=== PATIENT | female | born 1960 | race Caucasian/White ===

== ENCOUNTER 2019-10-21 08:37 | Outpatient (CLI) | payer BC, SELFPAY ==
--- NOTE | ~2019-10-21 | MM_ITS ---
EXAMINATION: MM screening adan BI w sara HISTORY: Screening TECHNIQUE: Craniocaudal and mediolateral oblique 3-D tomosynthesis images were obtained and synthetic 2-D images were generated. CAD analysis was submitted and interpreted. COMPARISON: Comparison to multiple prior studies sequentially, with oldest reviewed study dated 11/2013. BREAST PARENCHYMAL COMPOSITION: There are scattered areas of fibroglandular density. FINDINGS: There is no evidence of suspicious mass, calcification, or architectural distortion to sugg est malignancy in either breast. There has been no suspicious interval change. IMPRESSION: 1. No mammographic evidence of malignancy. 2. Recommend routine screening mammography in one year. 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
== END 2019-10-21 08:38 | disposition home or self-care (01) ==
PROVIDERS: PCP Internal Medicine; Visit Provider Obstetrics & Gynecology
DX: Z12.31 Encounter for screening mammogram for malignant neoplasm of breast (principal)
CPT/HCPCS: 77063; 77067

== ENCOUNTER 2021-04-24 19:25 | Inpatient (IN) | payer OTHER, SELFPAY ==
[2021-04-24] VITALS (10 sets, daily range): BP systolic 102–118; BP diastolic 60–90; PULSE 75–103; RESP 15–22; TEMP 35.7–36.6; O2SAT 99–100
--- NOTE | ~2021-04-24 | CT_ITS ---
EXAMINATION: CT lumbar spine wo con DATE: 04/24/2021 22:32 INDICATION: Low back pain. Fall. TECHNIQUE: Computed tomography (CT) of the lumbar spine was performed without intravenous contrast. A utomated exposure control and iterative reconstruction technique were employed. The dose-length produ ct was 542.28 mGy-cm. COMPARISON: None FINDINGS: There is diffuse hepatic steatosis. There are delayed contrast nephrograms, consistent with decreased renal function. There is 5 degrees levocurvature of lumbar spine. There is 3 mm retrolisth esis of L1 on L2. Vertebral body heights are normal. There are changes of posterior fusion procedure at L3-L4 with pedicle screws. There is mildly decreased disc height at L1-L2 and L2-L3. The following disc levels are specifically discussed: L1-L2: The disc is bulging. There is mild bilateral facet joint osteoarthritis. There is mild bilater al neural foraminal stenosis. There is mild central canal stenosis. L2-L3: The disc is bulging. There is mild bilateral facet joint hypertrophy. There is moderate bilate ral neural foraminal stenosis. There is mild central canal stenosis. L3-L4: The disc is bulging. There is mild bilateral facet joint surgery. There is mild bilateral neur al foraminal stenosis. There is mild central canal stenosis. L4-L5: The disc is bulging. There is severe bilateral facet joint osteoarthritis. There is mild bilat eral neural foraminal stenosis. There is mild central canal stenosis. L5-S1: The disc does not extend beyond the endplate margin. There is severe bilateral facet joint ost eoarthritis. There is mild bilateral neural foraminal stenosis. There is no central canal stenosis. IMPRESSION: 1. No fracture. 2. Moderate lumbar spondylosis. 3. Posterior fusion procedure at L3-L4. Reviewed, dictated and finalized at location A. ING AGENT
--- NOTE | ~2021-04-24 | MR_ITS ---
EXAMINATION: MR brain/brain stem wo con DATE: 04/26/2021 11:38 INDICATION: Cerebrovascular accident. Right lower extremity weakness and numbness. TECHNIQUE: Magnetic resonance imaging (MRI) of the brain and brainstem was performed without intraven ous contrast. Sequences included sagittal and axial T1-weighted FSE, axial diffusion-weighted FS EPI, axial T2*-weighted GRE, axial T2-weighted FLAIR Propeller, and axial T2-weighted Propeller. Apparent diffusion coefficient (ADC) maps were created. COMPARISON: Head CT 04/24/2021 FINDINGS: There are scattered areas of nonspecific increased T2-weighted signal intensity in the cere bral white matter, which is within normal limits for the patient's age. There is no intracranial hemo rrhage, acute infarction, or abnormal intracranial mass lesion. The ventricles are normal in size. Th e orbits are normal. The paranasal sinuses are clear. The mastoid air cells are normal. IMPRESSION: 1. Normal aging brain. Reviewed, dictated and finalized at location A. CAR DRIVER IMPRESSION: 1. Normal aging brain.
--- NOTE | ~2021-04-24 | XR_ITS ---
EXAMINATION: XR hip BI 2V w AP pelvis DATE: 04/25/2021 00:26 INDICATION: Pelvic pain. TECHNIQUE: An anteroposterior view pelvis and 2 views of each hip were obtained. COMPARISON: Abdomen radiographs 02/09/2005 FINDINGS: Bone alignment is normal. No fracture. There are changes of posterior fusion procedure in l umbar spine. There is mild osteoarthritis of the hips. IMPRESSION: 1. Mild osteoarthritis of the hips. Reviewed, dictated and finalized at location A. IALTY SALES CONSULTANT
--- NOTE | ~2021-04-24 | XR_ITS ---
EXAMINATION: XR chest 1V portable DATE: 04/24/2021 21:09 INDICATION: Chest pain. TECHNIQUE: A single frontal view of the chest was obtained. COMPARISON: Chest 2 views 06/21/2012 FINDINGS: The lung volumes are small. There are mild airspace opacities in the lower lung zones. No p leural effusion or pneumothorax. The heart size is normal. There are changes of anterior fusion proce dure in cervical spine. IMPRESSION: 1. Small lung volumes with mild airspace opacities in the lower lung zones, likely atelectasis. Reviewed, dictated and finalized at location E. E CONTRACTOR IMPRESSION: 1. Small lung volumes with mild airspace opacities in the lower lung zones, lik wayne atelectasis.
--- NOTE | ~2021-04-24 | US_ITS ---
EXAMINATION: US venous doppler [facility] DATE: 04/26/2021 17:01 INDICATION: Right lower limb swelling TECHNIQUE: Grayscale ultrasound images without and with compression and Doppler ultrasound images of the bilateral lower extremity veins were obtained. COMPARISON: None. FINDINGS: The visualized portions of right common femoral vein, profunda (deep) femoral vein, femoral vein, pop liteal vein, posterior tibial veins, peroneal veins, gastrocnemius vein and greater saphenous vein ou tflow are patent. The visualized portions of left common femoral vein, profunda femoral vein, femoral vein, popliteal v ein, posterior tibial veins, peroneal veins, gastrocnemius vein and greater saphenous vein outflow ar e patent. 3.5 x 2.6 x 2.1 cm [place] cyst at the left popliteal fossa. IMPRESSION: 1. No deep venous thrombosis in either lower limb. 2. Moderate-sized [place] cyst at the left popliteal fossa. Reviewed, dictated and finalized at location A. IFIED NURSE MIDWIFE
--- NOTE | ~2021-04-24 | CT_ITS ---
EXAMINATION: CTA brain carotid DATE: 04/24/2021 20:02 INDICATION: Right lower extremity weakness and numbness. TECHNIQUE: Computed tomographic angiography (CTA) of the head was performed without and with 100 mL O mnipaque-350 intravenous contrast. CTA of the neck was performed with intravenous contrast. Automated exposure control and iterative reconstruction technique were employed. The dose-length product was 1 540.52 mGy-cm. Maximum intensity projection and volume rendered 3D-reconstructions were created by radha technologist on a separate workstation. COMPARISON: Head CT 01/21/2008 FINDINGS: HEAD CTA: There is no intracranial hemorrhage, acute infarction, or abnormal intracranial mass lesion . The ventricles are normal in size. The paranasal sinuses are clear. The orbits are normal. The mast oid air cells are normal. Left vertebral artery is dominant. There is no significant stenosis of basi lar artery or the posterior cerebral arteries. The posterior communicating arteries are normal. There is no significant stenosis of the intracranial internal carotid arteries or anterior or middle cereb ral arteries. Anterior communicating artery is normal. There is no aneurysm. NECK CTA: There are no pathologically enlarged lymph nodes. There is minimal plaque in proximal left internal carotid artery. There is 0% stenosis of the proximal right internal carotid artery relative to normal distal artery lumen diameter (NASCET criteria). There is 0% stenosis of the proximal left i nternal carotid artery relative to normal distal artery lumen diameter. There is no significant steno sis of the vertebral arteries. There are changes of anterior fusion procedure from C4 to C6. There is moderate cervical spondylosis. IMPRESSION: 1. Normal brain. No aneurysm or significant intracranial arterial stenosis. 2. 0% stenosis of the proximal internal carotid arteries relative to normal distal artery lumen diame ters (NASCET criteria). 3. I called these results to Dr. Patel. Reviewed, dictated and finalized at location E. DRINIER MACHINE OPERATOR IMPRESSION: 1. Normal brain. No aneurysm or significant intracranial arterial stenosis. 2. 0% stenosis of the proximal internal carotid arteries relative to normal dis monica artery lumen diameters (NASCET criteria). 3. I called these results to Dr. Patel.
--- NOTE | 2021-04-24 19:40 | PC.NURSE ---
Dysphagia screening completed. No deficit to patient ability to swallow. Able to tolerate PO fluids well.
--- NOTE | 2021-04-24 19:44 | PC.NURSE ---
Juice given at this time. FSBG 61. EDP notified.
--- NOTE | 2021-04-24 19:46 | ECG_ITS ---
Measurements Intervals [place] Rate: 84 P: 67 VA: 148 QRS: 6 QRSD: 84 T: 58 QT: 388 QTc: 461 Interpretive Statements SINUS RHYTHM POSSIBLE LEFT ATRIAL ENLARGEMENT BASELINE ARTIFACT- I, II, III, AVR, AVL, AVF, V1-V6 BORDERLINE ECG Electronically Signed On 04-25-2021 7:27:48 INTERCELL CONNECTOR PLACER by John Jason D.O.
--- NOTE | 2021-04-24 19:47 | ED.NEUROSD ---
HPI - Neuro Symptoms/Deficit General Chief Complaint: Neuro Symptoms/Deficit Stated Complaint: Right leg numbness Time Seen by Provider: 04/24/21 19:39 Source: patient Mode of arrival: ambulatory Limitations: no limitations History of Present Illness HPI Narrative: Patient is a 61-year-old female complaining of right lower extremity weakness and numbness accompanied by left upper extremity weakness that started around 4 PM today. Patient denies any speech or visual disturbance, dizziness, headache, or unsteady gait. Patient denies any chest pain, shortness of breath, abdominal pain, nausea, vomiting, diaphoresis, fever or chills. Related Data Home Medications Medication Instructions Recorded Confirmed cholecalciferol (vitamin D3) 25 25 mcg PO DAILY 04/06/21 04/06/21 mcg (1,000 unit) capsule losartan 50 mg tablet 50 mg PO DAILY tablet 04/06/21 04/06/21 simvastatin 10 mg tablet 10 mg PO DAILY tablet 04/06/21 04/06/21 Allergies Allergy/AdvReac Type Severity Reaction Status Date / Time sulfamethoxazole Allergy Intermediate HIVES Verified 04/24/21 19:34 Sulfa (Sulfonamide Allergy Unknown Unknown Verified 04/24/21 19:34 Antibiotics) sulfamethizole Allergy Unknown Unknown Verified 04/24/21 19:34 trimethoprim Allergy Unknown Unknown Verified 04/24/21 19:34 Review of Systems Review of Systems: All systems reviewed & are unremarkable except as noted in HPI and below Constitutional: Constitutional: Denies body ache(s), Denies chills, Denies excessive sweating, Denies fatigue, Denies fever(s), Denies headache(s), Denies lethargy, Denies malaise, Denies weakness and Denies weight loss Eyes: Eyes: Denies blurry vision, Denies change in vision and Denies loss of vision ENT: Denies dizziness, Denies ear discharge, Denies headache(s), Denies lip swelling, Denies epistaxis, Denies nasal congestion, Denies neck pain, Denies throat swelling and Denies tongue swelling Cardiovascular: Cardiovascular: Denies chest pain, Denies chest pain at rest, Denies chest pain with activity, Denies diaphoresis, Denies rapid heart rate, Denies edema, Denies irregular heart rhythm, Denies lightheadedness, Denies palpitations, Denies dyspnea and Denies dyspnea on exertion Respiratory: Respiratory: Denies chest congestion, Denies cough, Denies hemoptysis, Denies dyspnea and Denies dyspnea on exertion Gastrointestinal: Gastrointestinal: Denies abdominal pain, Denies melena, Denies hematochezia, Denies diarrhea, Denies nausea, Denies vomiting and Denies hematemesis Musculoskeletal: Musculoskeletal: Denies abnormal gait, Denies deformity, Denies joint swelling, Denies limited range of motion, Denies neck pain and Denies numbness Neurologic: Denies Abnormal speech present, Denies confusion, Denies dizziness, Denies headache(s), Denies loss of vision and Denies Other visual disturbances Psychiatric: Psychiatric: Denies confusion, Denies depression, Denies auditory hallucinations, Denies homicidal ideation and Denies suicidal ideation Endocrine: Endocrine: Denies cold intolerance, Denies excessive sweating, Denies fatigue, Denies heat intolerance and Denies palpitations Hematologic/Lymphatic: Hematologic/Lymphatic: Denies easy bleeding and Denies easy bruising Allergic/Immunologic: Allergic/Immunologic: Denies lip swelling, Denies throat swelling and Denies tongue swelling PMFSH Past Medical History Medical History Anxiety Chronic lumbar pain Hyperlipidemia Hypertension Skin cancer of arm Surgical History Surgical History H/O neck surgery History of back surgery Hx of cholecystectomy Family History Family History Mother Hypertension Family history of elevated blood lipids Family history of emphysema Grandparent Family history of malignant neoplasm of urinary bladder Ac
--- NOTE | 2021-04-24 19:48 | PC.NURSE ---
Pt departs from ED with RN to CT on tele at this time. CT notified prior to departure.
[2021-04-24 19:53] LABS: Glucose Point of Care 61 mg/dl (65-105)
--- NOTE | 2021-04-24 20:04 | PC.NURSE ---
Stroke alert called at 19:[address] Fernandez. Last seen normal at 04:30. Complaining of LUE and RLE weakness after walking to the restroom. Vitals WNL. 20g IV L ac placed by EMS SYSTEM DEVELOPMENT MANAGER. Denies any pain at this time. CT brain completed at 19:54. Pt transported by ED RN on nuclear monitoring technician. Patient earrings removed by family at bedside prior to CT.
[2021-04-24 20:07] LABS: Basophils Absolute Auto 0.2 K/mm3 (0.0-0.1); Basophils Percent Auto 0.5 % (0.2-1.2); Eosinophils Percent Auto 0.1 % (0-4.4); Hematocrit 45.8 % (37.0-47.0); Hemoglobin 15.8 g/dL (12.0-15.0); Immature Granulocyte Absolute 0.24 K/mm3 (0.00-0.031); Immature Granulocyte Percent A 0.8 % (0-0.5); Lymphocytes Absolute Auto 0.93 K/mm3 (0.9-3.2); Lymphocytes Percent Auto 3.2 % (18.3-44.2); Mean Corpuscular HGB Conc 34.5 g/dl (32-36); Mean Corpuscular Hemoglobin 30.3 pg (26-34); Mean Corpuscular Volume 87.7 fl (80-100); Monocytes Absolute Auto 1.5 K/mm3 (0.1-0.6); Monocytes Percent Auto 5.3 % (2.6-8.5); Neutrophils Absolute Auto 26.4 K/mm3 (1.3-6.7); Neutrophils Percent Auto 90.1 % (45.5-73.1); Platelet Count Result 314 k/mm3 (150-375); Red Blood Count 5.22 M/mm3 (4.2-5.4); White Blood Count 29.3 K/mm3 (4.5-10.0)
[2021-04-24 20:21] LABS: INR 1.1; Prothrombin Time 13.7 Seconds (11.1-14.7)
--- NOTE | 2021-04-24 20:21 | PC.NURSE ---
FSBG 53. EDP made aware. More juice and crackers administered.
[2021-04-24 20:22] LABS: Partial Thromboplastin Time 26.8 SECONDS (22.3-36.8)
[2021-04-24 20:23] LABS: Glucose Point of Care 53 mg/dl (65-105)
--- NOTE | 2021-04-24 20:24 | PC.NURSE ---
Pt's accucheck 53. Verbal order for [address] christine. Pt's RN notified of new order.
[2021-04-24 20:26] LABS: Anion Gap 16 mmol/L (8-16); Blood Urea Nitrogen 34 mg/dL (7-17); Calcium 9.5 mg/dL (8.4-10.2); Carbon Dioxide 19 mmol/L (22-30); Chloride 95 mmol/L (98-107); Estimated Glomerular Filt Rate 38; Glucose 62 mg/dL (65-110); Potassium 4.2 mmol/L (3.4-5.0); Sodium 130 mmol/L (137-145)
[2021-04-24] MEDS: DEXTROSE 50% 25 GM/50 ML SYRINGE IV PUSH (20:26)
[2021-04-24 20:35] LABS: Glucose Point of Care 277 mg/dl (65-105)
[2021-04-24] MEDS: CLOPIDOGREL BISULFATE 75 MG TABLET PO (20:37)
[2021-04-24] MEDS: ASPIRIN 81 MG CHEWABLE TABLET 324 MG PO (20:38)
[2021-04-24 20:46] LABS: Troponin I 0.039 ng/mL (0.000-0.034)
[2021-04-24 21:02] LABS: SARS-CoV-2 RNA PCR Negative
[2021-04-24] MEDS: LACTATED RINGERS 1,000 ML 999 ML IV CONT (21:10)
[2021-04-24 21:44] LABS: Add Urine Microscopic? YES; Appearance Urine Cloudy (Clear); Bacteria Urine 1+ /hpf; Bilirubin Urine Negative (Negative); Blood Urine 3+ (Negative); Color Urine Amber (Yellow); Glucose Urine UA 1+ mg/dL (Negative); Ketones Urine 1+ mg/dL (Negative); Leukocyte Esterase Ur 2+ LEU/UL (Negative); Mucus Urine Moderate /lpf; Nitrate Urine Negative (Negative); Protein Urine 2+ mg/dL (Negative); Specific Grav Ur 1.023 (1.001-1.035); Squamous Epithelial Cell Urine Occasional /hpf (Few); Urobilinogen Urine Negative mg/dL (<2.0); WBC Urine 21-30 /hpf
--- NOTE | 2021-04-24 22:24 | PC.NURSE ---
Patient to CT at this time. Vitals WNL. Pt stable.
[2021-04-24 22:35] LABS: Lactic Acid Reflex 1.5 mmol/L (0.7-2.1)
[2021-04-24 22:59] LABS: Glucose Point of Care 189 mg/dl (65-105)
--- NOTE | 2021-04-24 23:14 | PC.NURSE ---
Pt originally reported Last Known Well as 1430, but on further questioning, pt reports Last Known Well was actually 1830. ED MD Patel notified by this RN.
--- NOTE | 2021-04-24 23:33 | PC.NURSE ---
Hospitalist at bedside.
[2021-04-24 23:35] LABS: Troponin I 0.051 ng/mL (0.000-0.034)
--- NOTE | 2021-04-24 23:53 | PM.IMHP ---
H&P: HPI History of Present Illness Date/Time: 04/24/21 23:53 Chief Complaint: right leg weakness Narrative: Patient is a 61-year-old female complaining of right lower extremity weakness and numbness accompanied by left upper extremity weakness that started around 4 PM today. she Went to the bathroom this evening but when she tried to come back she was unable to. She reports some back pain which is a chronic thing. She also has surgery in her lower back. She also reports him felt little numbness in her left upper extremity following that. No fever chills shortness of breath chest pain. She crawled back to her bedroom and called her daughter who brought in to the ER for evaluation she has not been able to lift her right leg up since then. Stroke workup was done in the ER with CTA which did not reveal any acute stroke. Since NIH score was low tPA was not recommended by [facility] stroke team. On evaluation she was noted to have elevated leukocytosis hyponatremia mild DARRYL chest x-ray with mild opacities and urinary tract infection. She was also noted to be hypoglycemic on arrival. She is getting admitted in this context for further evaluation and management. Neurology has been consulted from the ER. Review of Systems Review of Systems: - CONSTITUTIONAL: Denies weight loss, fever and chills. - HEENT: Denies changes in vision and hearing - RESPIRATORY: Denies SOB and cough. - CV: Denies palpitations and CP. - GI: Denies abdominal pain, nausea, vomiting and diarrhea. - : Reports some dysuria and urinary frequency. - MSK: Denies myalgia and joint pain. - SKIN: Denies rash and pruritus. - NEUROLOGICAL: Denies headache and syncope. - PSYCHIATRIC: Denies recent changes in mood. Denies anxiety and depression. All systems reviewed & are unremarkable except as noted in HPI and below Constitutional: Constitutional: Reports fatigue and Reports weakness Neurologic: Reports weakness Endocrine: Endocrine: Reports fatigue PMFSH Past Medical History Medical History Anxiety Chronic lumbar pain Hyperlipidemia Hypertension Skin cancer of arm Surgical History Surgical History H/O neck surgery History of back surgery Hx of cholecystectomy Family History Family History Mother Hypertension Family history of elevated blood lipids Family history of emphysema Grandparent Family history of malignant neoplasm of urinary bladder Acute myocardial infarction Father Patient's father is Other Anxiety Depression Family history of chronic obstructive pulmonary disease Skin cancer Social History Social History Smoking status: Former smoker Second hand tobacco smoke exposure: No Smoking end date: 03/13/81 Alcohol intake: never Meds Home Medications and Allergies Home Medications Medication Instructions Recorded Confirmed Type cholecalciferol (vitamin D3) 25 25 mcg PO DAILY 04/06/21 04/06/21 History mcg (1,000 unit) capsule lidocaine 4 % topical patch 1 patch TOPICAL DAILY PRN #30 ea 04/06/21 04/06/21 Rx losartan 50 mg tablet 50 mg PO DAILY tablet 04/06/21 04/06/21 History simvastatin 10 mg tablet 10 mg PO DAILY tablet 04/06/21 04/06/21 History Allergies Allergy/AdvReac Type Severity Reaction Status Date / Time sulfamethoxazole Allergy Intermediate HIVES Verified 04/24/21 19:34 Sulfa (Sulfonamide Allergy Unknown Unknown Verified 04/24/21 19:34 Antibiotics) sulfamethizole Allergy Unknown Unknown Verified 04/24/21 19:34 trimethoprim Allergy Unknown Unknown Verified 04/24/21 19:34 Vital Signs Vital Signs - 24 hr 04/24/21 19:25 04/24/21 19:45 04/24/21 20:14 Temperature 96.3 F L Pulse Rate 75 85 Respiratory Rate 18
[2021-04-25] VITALS (20 sets, daily range): BP systolic 100–123; BP diastolic 54–78; PULSE 80–97; RESP 16–24; TEMP 36.1–37; O2SAT 96–100; BMI 28.3
[2021-04-25 00:35] LABS: Anion Gap 14 mmol/L (8-16); Blood Urea Nitrogen 37 mg/dL (7-17); Calcium 8.3 mg/dL (8.4-10.2); Carbon Dioxide 22 mmol/L (22-30); Chloride 91 mmol/L (98-107); Estimated Glomerular Filt Rate 38; Glucose 249 mg/dL (65-110); Potassium 3.6 mmol/L (3.4-5.0); Sodium 127 mmol/L (137-145)
[2021-04-25] MEDS: LACTATED RINGERS 1,000 ML 125 ML IV CONT ×2 (00:55→12:24)
--- NOTE | 2021-04-25 00:57 | ADMGEN ---
This patient, Rosanna Johns, was admitted to IMU Room 211-01. Patient/family oriented to hospital policies and general routines including ID bracelet, bed and alarms, visiting hours, pain management, procedures, bathroom and other care routines, personal items, smoking policy, room service/diet, and visiting hours. Information on how to activate the Rapid Response Team has been discussed. Patient/Family are encouraged to report perceived risks to care and to ask questions if they do not understand what they are told or what they should do.
[2021-04-25 03:00] LABS: Basophils Absolute Auto 0.1 K/mm3 (0.0-0.1); Basophils Percent Auto 0.4 % (0.2-1.2); Hematocrit 37.3 % (37.0-47.0); Hemoglobin 13.1 g/dL (12.0-15.0); Immature Granulocyte Percent A 0.9 % (0-0.5); Lymphocytes Absolute Auto 0.66 K/mm3 (0.9-3.2); Mean Corpuscular HGB Conc 35.1 g/dl (32-36); Mean Corpuscular Volume 85.6 fl (80-100); Mean Platelet Volume 9.8 fl (7.4-10.4); Monocytes Absolute Auto 1.5 K/mm3 (0.1-0.6); Monocytes Percent Auto 6.8 % (2.6-8.5); Neutrophils Absolute Auto 19.7 K/mm3 (1.3-6.7); Neutrophils Percent Auto 88.9 % (45.5-73.1); Platelet Count Result 268 k/mm3 (150-375); Red Blood Count 4.36 M/mm3 (4.2-5.4); Red Cell Distribution Width 12.9 % (11.5-14.5); White Blood Count 22.2 K/mm3 (4.5-10.0)
[2021-04-25 05:14] LABS: Creatine Kinase > 16000 U/L (30-135)
[2021-04-25 08:23] LABS: Glucose Point of Care 86 mg/dl (65-105)
--- NOTE | 2021-04-25 09:47 | PCSTNOTE ---
Spoke with nursing regarding patient's current status. Patient has a history of cervical fusion surgery, however unable to find out when the surgery occurred. MRI scheduled for Monday to determine if CVA has occurred. At this time, not requesting an evaluation for speech therapy unless concerns arise. Nursing agreeable.
[2021-04-25] MEDS: CLOPIDOGREL BISULFATE 75 MG TABLET PO (10:08)
[2021-04-25] MEDS: ENOXAPARIN 40 MG/0.4 ML SYRINGE SUB-Q (10:08)
[2021-04-25] MEDS: SIMVASTATIN 10 MG TABLET PO (10:08)
[2021-04-25] MEDS: ASPIRIN 81 MG ENTERIC TABLET PO (10:08)
[2021-04-25] MEDS: CHOLECALCIFEROL 1,000 UNITS TABLET 1000 UNITS PO (10:09)
[2021-04-25] MEDS: LOSARTAN POTASSIUM 50 MG TABLET PO (10:10)
[2021-04-25] MEDS: MELOXICAM 7.5 MG TABLET 15 MG PO (10:10)
--- NOTE | 2021-04-25 11:27 | PM.IMPN ---
Progress Note: A&P Assessment and Plan (1) TIA (transient ischemic attack): Code(s): G45.9 - Transient cerebral ischemic attack, unspecified Status: Acute Assessment and Plan: 04/25/2021 Interval history: patient is 61-year-old female presented with upper and lower extremity weakness, today patient states the symptoms have improved and not as weak, CT scan of the head is negative for any acute injury, CT scan of the lumbar spine did not show any acute injury patient does have moderate lumbar spondylolysis and posterior fusion procedure of L 3 and 4, to further evaluate patient will have MRI, patient be seen by neurologist, will have a PT OT evaluate the patient and further recommendation to follow (2) Leukocytosis: Qualifiers: Leukocytosis type: unspecified Qualified Code(s): D72.829 - Elevated white blood cell count, unspecified Code(s): D72.829 - Elevated white blood cell count, unspecified Status: Acute (3) Elevated troponin: Code(s): R77.8 - Other specified abnormalities of plasma proteins Status: Acute (4) Hypoglycemia: Code(s): E16.2 - Hypoglycemia, unspecified Status: Acute (5) Anxiety: Code(s): F41.9 - Anxiety disorder, unspecified Status: Acute (6) Chronic lumbar pain: Qualifiers: Back pain laterality: right Sciatica laterality: sciatica of right side Sciatica presence: with sciatica Qualified Code(s): M54.41 - Lumbago with sciatica, right side; G89.29 - Other chronic pain Code(s): M54.50 - Low back pain, unspecified; G89.29 - Other chronic pain Status: Acute (7) Hypertension: Qualifiers: Hypertension type: primary hypertension Qualified Code(s): I10 - Essential (primary) hypertension Code(s): I10 - Essential (primary) hypertension Status: Acute (8) Hyperlipidemia: Qualifiers: Hyperlipidemia type: unspecified Qualified Code(s): E78.5 - Hyperlipidemia, unspecified Code(s): E78.5 - Hyperlipidemia, unspecified Status: Acute Additional Plan # Right lower leg extremity weakness likely exacerbated for it to her chronic back pain/neuropathy related to it. CTA is negative for any acute stroke. MRI is planned on Monday neurology has been consulted. Aspirin Plavix as advised by Neurology. Not a tPA candidate. Will check ct lumbar spine. X-ray hip will be ordered as well. # History of chronic back pain # Leukocytosis clear etiology does have UTI and evidence of pneumonia the clinically no symptoms present for pneumonia. Blood culture has been obtained. Lactic acid is normal no signs of sepsis. Empirically started on ceftriaxone and azithromycin follow culture # Hypoglycemia likely due to poor p.o. intake. She has not taken anything since this morning no history of diabetes or any hypoglycemic agent. # hypertension resume home medication # hyperlipidemia home medications # elevated troponin daily etiology severe troponin # UTI urine culture Rocephin # pneumonia from chest x-ray no clinical signs of pneumonia # DVT prophylaxis Lovenox # code status full # disposition follow the clinical course PT OT ordered Subjective Date/time seen: 04/25/21 11:27 Chief Complaint: right leg weakness HPI-Narrative: Patient is a 61-year-old female complaining of right lower extremity weakness and numbness accompanied by left upper extremity weakness that started around 4 PM today. she Went to the bathroom this evening but when she tried to come back she was unable to. She reports some back pain which is a chronic thing. She also has surgery in her lower back. She also reports him felt little numbness in her left upper extremity following that. No fever chills shortness of breath chest pain. She crawled back to her bedroom and called her daughter who brought in to the ER for evaluation she has not been able to lift her right leg up since then. Stroke workup was done in the ER with
--- NOTE | 2021-04-25 12:45 | WPDNEURCNPN ---
Assessment and Plan Additional Plan 1 TIA 2 low back pain with history of surgery in the past possible radiculopathy will need the MRI Consult date: 04/25/21 HPI: Rosanna Johns is a 61 year old female admitted to the hospital for the complaints of right lower extremity weakness along with the numbness and also left upper extremity weakness since 4:00 p.m. reportedly she went to the bathroom in the evening ,she tried to come back but was unable to do ,so she does have a chronic back pain, has undergone surgery on her lower back but she reported her little finger on the left side was numb ,she crawl back to her bedroom ,called her daughter ,brought her to the ER, in the ER her CTA was negative with low NIH score to consider the tPA, she was additionally found to have hyponatremia, mild opacities on chest x,-ray and UTI in addition to all these finding she was notedto be hypoglycemic ,when she arrived to the emergency room. her past history is consistent with the anxiety, chronic lumbar pain, hypertension, history of neck surgery, and history of back surgery as well, she is a former smoker and not alcohol drinker Review of Systems Review of Systems: All systems reviewed & are unremarkable except as noted in HPI and below PMFSH Past Medical History Medical History Anxiety Chronic lumbar pain Hyperlipidemia Hypertension Skin cancer of arm Surgical History Surgical History H/O neck surgery History of back surgery Hx of cholecystectomy Family History Family History Mother Family history of elevated blood lipids Family history of emphysema Hypertension Grandparent Acute myocardial infarction Family history of malignant neoplasm of urinary bladder Father Patient's father is Dementia Sibling COPD (chronic obstructive pulmonary disease) Other Anxiety Depression Family history of chronic obstructive pulmonary disease Skin cancer Social History Social History Smoking packs per day: 1 Smoking cigarettes per day: 20.0 Years smoked: 4 Smoking pack-years: 4.00 Smoking status: Former smoker Second hand tobacco smoke exposure: No Smoking end date: 04/13/80 Alcohol intake: never Substance use: never Spiritual care concerns: No Meds Home Medications and Allergies Home Medications Medication Instructions Recorded Confirmed Type cholecalciferol (vitamin D3) 25 25 mcg PO DAILY 04/06/21 04/25/21 History mcg (1,000 unit) capsule lidocaine 4 % topical patch 1 patch TOPICAL DAILY PRN #30 ea 04/06/21 04/25/21 Rx losartan 50 mg tablet 50 mg PO DAILY tablet 04/06/21 04/25/21 History simvastatin 10 mg tablet 10 mg PO DAILY tablet 04/06/21 04/25/21 History L. gasseri-B. bifidum-B longum 1 cap PO DAILY 04/25/21 04/25/21 History [[facility]] lorazepam 1 mg PO BID PRN 04/25/21 04/25/21 History meloxicam 15 mg PO DAILY 04/25/21 04/25/21 History Allergies Allergy/AdvReac Type Severity Reaction Status Date / Time sulfamethoxazole Allergy Intermediate HIVES Verified 04/24/21 19:34 Sulfa (Sulfonamide Allergy Unknown Unknown Verified 04/24/21 19:34 Antibiotics) sulfamethizole Allergy Unknown Unknown Verified 04/24/21 19:34 trimethoprim Allergy Unknown Unknown Verified 04/24/21 19:34 Vital Signs Vital Signs - 24 hr 04/24/21 19:25 04/24/21 19:45 04/24/21 20:14 Temperature 35.7 C L Pulse Rate 75 85 Respiratory Rate 18 18 Blood Pressure 110/90 102/60 Pulse Oximetry 100 100 100 04/24/21 20:25 04/24/21 20:31 04/24/21 21:01 Temperature Pulse Rate 92 90 Respiratory Rate 16 20 15 Blood Pressure 102/60 114/61 118/79 Pulse Oximetry 100 99 100 04/24/21 21:31 04/24/21 22:39 04/24/21 23:30 Temperature 36.6 C Pulse Rate 87 85 Resp
[2021-04-25 12:46] LABS: Glucose Point of Care 223 mg/dl (65-105)
[2021-04-25 23:34] LABS: Glucose Point of Care 120 mg/dl (65-105)
[2021-04-26] VITALS (15 sets, daily range): BP systolic 93–119; BP diastolic 61–75; PULSE 80–98; RESP 17–20; TEMP 35.6–36.6; O2SAT 97–100
--- NOTE | 2021-04-26 | ECHO_ITS ---
Patient Info Name: Rosanna Johns Age: 61 years : 1960 Gender: Female Ht: 59 in Wt: 140 lbs BSA: 1.65 m2 HR: 88 bpm BP: 100 / 65 mmHg Technical Quality: Good Exam Date: 04/26/2021 9:55 AM Exam Location: [facility] Patient Status: Inpatient Admit Date: 04/24/2021 Staff Ordering Physician: Sandro Powers MD Activity Director: Micah Urrutia, ROSALIA, RT Attending Provider: Sandro Powers MD Exam Type: CA echo doppler color flow Study Info Indications I63.219 - Cerebral infarction due to unspecified occlusion or stenosis of unspecified vertebral arteries Complete two-dimensional, color flow and Doppler transthoracic echocardiogram is performed. Strain analysis performed. Summary 1. Complete two-dimensional, color flow and Doppler transthoracic echocardiogram is performed. 2. Left ventricular chamber dimension is normal. 3. Left ventricular systolic function is normal, estimated at 60-65%. 4. The left ventricular diastolic function is normal. 5. E/e' 8 is minimally elevated. 6. Global longitudinal strain is normal at -19.2%. 7. There is mild aortic valve sclerosis. 8. The mitral valve has mildly calcified annulus. 9. There is mild to moderate tricuspid valve regurgitation. 10. No pulmonary hypertension, estimated pulmonary arterial systolic pressure is 32 mmHg. Left Ventricle E/e' 8 is minimally elevated. Global longitudinal strain is normal at -19.2%. Left ventricular chamber dimension is normal. Left ventricular systolic function is normal, estimated at 60-65%. The left ventricular diastolic function is normal. Right Ventricle Right ventricular systolic function is normal and with normal TAPSE 2.0 cm. Right ventricular chamber dimension is normal. Left Atria Left atrial chamber dimension is normal. Right Atria Right atrial chamber dimension is normal. Aortic Valve The aortic valve is trileaflet. There is mild aortic valve sclerosis. There is no aortic valve stenosis. There is no aortic valve regurgitation. Pulmonic Valve There is no pulmonic regurgitation. Mitral Valve The mitral valve has mildly calcified annulus. There is no mitral valve stenosis. There is no mitral valve regurgitation. Tricuspid Valve There is mild to moderate tricuspid valve regurgitation. No pulmonary hypertension, estimated pulmonary arterial systolic pressure is 32 mmHg. Pericardium/Pleural There is no pericardial effusion. Inferior Vena Cava Normal inferior vena cava with >50% collapse upon inspiration consistent with normal right atrial pressure, 5 mmHg. Aorta The aortic root size at the sinus of Valsalva is normal. Left Ventricular Outflow Tract Name Value Normal LVOT 2D LVOT Diameter 2.0 cm LVOT Doppler LVOT Peak Gradient 6 mmHg LVOT Mean Gradient 3 mmHg LVOT VTI 22 cm LVOT VTI/AV VTI Ratio 0.6 LVOT Stroke Volume 70 ml LVOT CO 6.5 l/min LVOT CI 3.9
[2021-04-26] MEDS: LACTATED RINGERS 1,000 ML 125 ML IV CONT ×2 (02:36→11:54)
[2021-04-26] MEDS: MELOXICAM 7.5 MG TABLET 15 MG PO (08:50)
[2021-04-26] MEDS: CLOPIDOGREL BISULFATE 75 MG TABLET PO (08:50)
[2021-04-26] MEDS: SIMVASTATIN 10 MG TABLET PO (08:50)
[2021-04-26] MEDS: ASPIRIN 81 MG ENTERIC TABLET PO (08:50)
[2021-04-26] MEDS: LOSARTAN POTASSIUM 50 MG TABLET PO (08:50)
[2021-04-26] MEDS: CHOLECALCIFEROL 1,000 UNITS TABLET 1000 UNITS PO (08:50)
[2021-04-26] MEDS: ENOXAPARIN 40 MG/0.4 ML SYRINGE SUB-Q (08:50)
--- NOTE | 2021-04-26 10:22 | WPDCDIQUERY2 ---
CDI Query Clarification Request 04/25 CK > 16,000 Patient admitted with R leg weakness and L arm weakness Please clarify if there is any clincal significance for CK > 16,000 <Aparna Heller - Last Filed: 04/26/21 10:28> Clarified Diagnosis (1) Rhabdomyolysis: Code(s): M62.82 - Rhabdomyolysis <Aparna Heller - Last Filed: 04/26/21 10:28> Status: Acute <Aparna Heller - Last Filed: 04/26/21 10:28> Assessment and Plan: patient her CK level have trended down close to 500 and her aldolase is elevated suggesting patient may have autoimmune disease patient is instructed to follow up with rheumatology as soon as possible <Abhinav Leroy MD - Last Filed: 05/03/21 15:56>
[2021-04-26 11:54] LABS: Glucose Point of Care 119 mg/dl (65-105)
--- NOTE | 2021-04-26 15:03 | PC.NURSE ---
Left message for Dr. Leroy regarding patient labs not being drawn today. BUN, CK, Creatinine levels very high
--- NOTE | 2021-04-26 15:34 | PC.NURSE ---
This patient, Rosanna Johns, was received from [facility] on 04/26/21 at 1534. Patient/family oriented to unit policies and routines
--- NOTE | 2021-04-26 15:50 | PC.NURSE ---
This patient, Rosanna Johns, was transferred to [[id number] ] on 04/26/21 at 1550. Personal belongings sent with patient. Report given to [Laura ]. Appropriate documentation sent with patient.
[2021-04-26] MEDS: SODIUM CHLORIDE 0.9% IV 1,000 ML 125 ML IV CONT (16:01)
--- NOTE | 2021-04-26 16:13 | PM.IMPN ---
Progress Note: A&P Assessment and Plan (1) TIA (transient ischemic attack): Code(s): G45.9 - Transient cerebral ischemic attack, unspecified Status: Acute Assessment and Plan: 04/25/2021 Interval history: patient is 61-year-old female presented with upper and lower extremity weakness, today patient states the symptoms have improved and not as weak, CT scan of the head is negative for any acute injury, CT scan of the lumbar spine did not show any acute injury patient does have moderate lumbar spondylolysis and posterior fusion procedure of L 3 and 4, to further evaluate patient will have MRI, patient be seen by neurologist, will have a PT OT evaluate the patient and further recommendation to follow. 04/26/2021 Interval history: patient is 61-year-old female presented with upper and lower extremity weakness, today patient states the symptoms have improved and not as weak, CT scan of the head is negative for any acute injury, CT scan of the lumbar spine did not show any acute injury patient does have moderate lumbar spondylolysis and posterior fusion procedure of L 3 and 4, to further evaluate patient had MRI which is regla, today patient's right lower extremity is more swallen will do venous Doppler to further evaluate, patient also is found to have rhabdomyolysis upon arrival CK level were or 16,000, will gently hydrate the patient and monitor,patient seen by neurologist, will have a PT OT evaluate the patient and further recommendation to follow (2) Leukocytosis: Qualifiers: Leukocytosis type: unspecified Qualified Code(s): D72.829 - Elevated white blood cell count, unspecified Code(s): D72.829 - Elevated white blood cell count, unspecified Status: Acute (3) Elevated troponin: Code(s): R77.8 - Other specified abnormalities of plasma proteins Status: Acute (4) Hypoglycemia: Code(s): E16.2 - Hypoglycemia, unspecified Status: Acute (5) Anxiety: Code(s): F41.9 - Anxiety disorder, unspecified Status: Acute (6) Chronic lumbar pain: Qualifiers: Back pain laterality: right Sciatica presence: with sciatica Sciatica laterality: sciatica of right side Qualified Code(s): M54.41 - Lumbago with sciatica, right side; G89.29 - Other chronic pain Code(s): M54.50 - Low back pain, unspecified; G89.29 - Other chronic pain Status: Acute (7) Hypertension: Qualifiers: Hypertension type: primary hypertension Qualified Code(s): I10 - Essential (primary) hypertension Code(s): I10 - Essential (primary) hypertension Status: Acute (8) Hyperlipidemia: Qualifiers: Hyperlipidemia type: unspecified Qualified Code(s): E78.5 - Hyperlipidemia, unspecified Code(s): E78.5 - Hyperlipidemia, unspecified Status: Acute Additional Plan # Right lower leg extremity weakness likely exacerbated for it to her chronic back pain/neuropathy related to it. CTA is negative for any acute stroke. MRI is planned on Monday neurology has been consulted. Aspirin Plavix as advised by Neurology. Not a tPA candidate. Will check ct lumbar spine. X-ray hip will be ordered as well. # History of chronic back pain # Leukocytosis clear etiology does have UTI and evidence of pneumonia the clinically no symptoms present for pneumonia. Blood culture has been obtained. Lactic acid is normal no signs of sepsis. Empirically started on ceftriaxone and azithromycin follow culture # Hypoglycemia likely due to poor p.o. intake. She has not taken anything since this morning no history of diabetes or any hypoglycemic agent. # hypertension resume home medication # hyperlipidemia home medications # elevated troponin daily etiology severe troponin # UTI urine culture Rocephin # pneumonia from chest x-ray no clinical signs of pneumonia # DVT prophylaxis Lovenox # code status full # disposition follow the clinical course PT OT ordered Subje
[2021-04-26 16:23] LABS: Basophils Percent Auto 0.1 % (0.2-1.2); Eosinophils Percent Auto 0.2 % (0-4.4); Hematocrit 32.9 % (37.0-47.0); Hemoglobin 11.2 g/dL (12.0-15.0); Immature Granulocyte Absolute 0.04 K/mm3 (0.00-0.031); Immature Granulocyte Percent A 0.3 % (0-0.5); Lymphocytes Absolute Auto 1.24 K/mm3 (0.9-3.2); Mean Corpuscular Hemoglobin 29.8 pg (26-34); Mean Corpuscular Volume 87.5 fl (80-100); Mean Platelet Volume 9.9 fl (7.4-10.4); Monocytes Absolute Auto 0.7 K/mm3 (0.1-0.6); Monocytes Percent Auto 5.6 % (2.6-8.5); Neutrophils Absolute Auto 10.4 K/mm3 (1.3-6.7); Neutrophils Percent Auto 83.8 % (45.5-73.1); Platelet Count Result 242 k/mm3 (150-375); Red Blood Count 3.76 M/mm3 (4.2-5.4); Red Cell Distribution Width 13.5 % (11.5-14.5); White Blood Count 12.4 K/mm3 (4.5-10.0)
[2021-04-26 16:33] LABS: Glucose Point of Care 108 mg/dl (65-105)
[2021-04-26 17:07] LABS: Anion Gap 2 mmol/L (8-16); Blood Urea Nitrogen 30 mg/dL (7-17); Calcium 8.4 mg/dL (8.4-10.2); Carbon Dioxide 30 mmol/L (22-30); Chloride 100 mmol/L (98-107); Estimated Glomerular Filt Rate 41; Glucose 107 mg/dL (65-110); Potassium 3.8 mmol/L (3.4-5.0); Sodium 132 mmol/L (137-145)
[2021-04-26 17:28] LABS: Creatine Kinase > 16000 U/L (30-135)
[2021-04-26 20:31] LABS: Glucose Point of Care 97 mg/dl (65-105)
[2021-04-27] MEDS: SODIUM CHLORIDE 0.9% IV 1,000 ML 125 ML IV CONT ×3 (03:31→20:06)
[2021-04-27 03:55] VITALS: BP 115/72; PULSE 92; RESP 18; TEMP 36.6; O2SAT 96
[2021-04-27 06:56] LABS: Creatine Kinase 13919 U/L (30-135); Magnesium 2.7 mg/dL (1.6-2.3)
[2021-04-27 07:31] LABS: Basophils Percent Auto 0.4 % (0.2-1.2); Eosinophils Absolute Auto 0.1 K/mm3 (0-0.3); Eosinophils Percent Auto 0.6 % (0-4.4); Hematocrit 32.2 % (37.0-47.0); Hemoglobin 10.7 g/dL (12.0-15.0); Immature Granulocyte Absolute 0.04 K/mm3 (0.00-0.031); Immature Granulocyte Percent A 0.5 % (0-0.5); Lymphocytes Absolute Auto 1.06 K/mm3 (0.9-3.2); Mean Corpuscular HGB Conc 33.2 g/dl (32-36); Mean Corpuscular Volume 90.2 fl (80-100); Mean Platelet Volume 9.9 fl (7.4-10.4); Monocytes Absolute Auto 0.5 K/mm3 (0.1-0.6); Neutrophils Absolute Auto 6.5 K/mm3 (1.3-6.7); Neutrophils Percent Auto 79.5 % (45.5-73.1); Platelet Count Result 215 k/mm3 (150-375); Red Blood Count 3.57 M/mm3 (4.2-5.4); Red Cell Distribution Width 13.8 % (11.5-14.5); White Blood Count 8.2 K/mm3 (4.5-10.0)
[2021-04-27 07:47] VITALS: BP 130/78; PULSE 82; RESP 16; TEMP 36.1; O2SAT 98
[2021-04-27 08:05] LABS: Glucose Point of Care 110 mg/dl (65-105)
[2021-04-27] MEDS: ENOXAPARIN 40 MG/0.4 ML SYRINGE SUB-Q (08:20)
[2021-04-27 09:23] LABS: Alanine Aminotransferase 173 U/L (4-35); Albumin Level 3.2 g/dL (3.5-5.1); Alkaline Phosphatase 44 U/L (38-126); Anion Gap 8 mmol/L (8-16); Aspartate Amino Transferase 313 U/L (14-36); Bilirubin,Total 0.4 mg/dL (0.2-1.3); Blood Urea Nitrogen 19 mg/dL (7-17); Calcium 9.1 mg/dL (8.4-10.2); Carbon Dioxide 20 mmol/L (22-30); Chloride 114 mmol/L (98-107); Estimated Glomerular Filt Rate > 60; Glucose 109 mg/dL (65-110); Potassium 4.5 mmol/L (3.4-5.0); Sodium 142 mmol/L (137-145)
[2021-04-27] MEDS: CHOLECALCIFEROL 1,000 UNITS TABLET 1000 UNITS PO (09:23)
[2021-04-27] MEDS: MELOXICAM 7.5 MG TABLET 15 MG PO (09:23)
[2021-04-27] MEDS: ASPIRIN 81 MG ENTERIC TABLET PO (09:23)
[2021-04-27] MEDS: CLOPIDOGREL BISULFATE 75 MG TABLET PO (09:23)
[2021-04-27] MEDS: SIMVASTATIN 10 MG TABLET PO (09:23)
[2021-04-27] MEDS: LOSARTAN POTASSIUM 50 MG TABLET PO (09:23)
[2021-04-27 11:33] LABS: Glucose Point of Care 88 mg/dl (65-105)
[2021-04-27 12:06] VITALS: BP 131/75; PULSE 92; RESP 14; TEMP 36.6; O2SAT 100
--- NOTE | 2021-04-27 13:40 | WPDCDIQUERY2 ---
CDI Query Clarification Request - Leukocytosis clear etiology does have UTI and evidence of pneumonia the clinically no symptoms present for pneumonia and pneumonia from chest x-ray no clinical signs of pneumonia has been documented. -04/24 CXR impression: Small lung volumes with mild airspace opacities in the lower lung zones, likely atelectasis Please clarify if pneumonia has been ruled in, ruled out or unable to determine. <Jovita Pearce RN - Last Filed: 04/27/21 13:43> Clarified Diagnosis (1) Leukocytosis: Qualifiers: Leukocytosis type: unspecified Qualified Code(s): D72.829 - Elevated white blood cell count, unspecified <Jovita Pearce RN - Last Filed: 04/27/21 13:43> Code(s): D72.829 - Elevated white blood cell count, unspecified <Jovita Pearce RN - Last Filed: 04/27/21 13:43> Status: Acute <Jovita Pearce RN - Last Filed: 04/27/21 13:43> Assessment and Plan: pneumonia was ruled patient did not have any complaints of cough patient was not treated with antibiotics and remains stable <Abhinav Leroy MD - Last Filed: 05/15/21 14:47>
--- NOTE | 2021-04-27 13:56 | PC.NURSE ---
On 04/27/21, the student, Kinsey Fried, provided care and completed [facility] documentation on this patient. I have reviewed the student's documentation and agree with the findings.
--- NOTE | 2021-04-27 14:43 | PM.IMPN ---
Progress Note: A&P Assessment and Plan (1) TIA (transient ischemic attack): Code(s): G45.9 - Transient cerebral ischemic attack, unspecified Status: Acute Assessment and Plan: 04/25/2021 Interval history: patient is 61-year-old female presented with upper and lower extremity weakness, today patient states the symptoms have improved and not as weak, CT scan of the head is negative for any acute injury, CT scan of the lumbar spine did not show any acute injury patient does have moderate lumbar spondylolysis and posterior fusion procedure of L 3 and 4, to further evaluate patient will have MRI, patient be seen by neurologist, will have a PT OT evaluate the patient and further recommendation to follow. 04/26/2021 Interval history: patient is 61-year-old female presented with upper and lower extremity weakness, today patient states the symptoms have improved and not as weak, CT scan of the head is negative for any acute injury, CT scan of the lumbar spine did not show any acute injury patient does have moderate lumbar spondylolysis and posterior fusion procedure of L 3 and 4, to further evaluate patient had MRI which is regla, today patient's right lower extremity is more swallen will do venous Doppler to further evaluate, patient also is found to have rhabdomyolysis upon arrival CK level were or 16,000, will gently hydrate the patient and monitor,patient seen by neurologist, will have a PT OT evaluate the patient and further recommendation to follow. 04/27/2021 interval history today patient states feeling much better denies any pain, patient with rhabdomyolysis not sure how long she was on the ground before she was brought to the emergency depart, upon a patient CK level were greater than 16,000 patient is being gently hydrated CK levels are trending down [id number] will continued gently hydrate the patient and monitor, the PT OT evaluate the patient and further recommendation to follow. (2) Leukocytosis: Qualifiers: Leukocytosis type: unspecified Qualified Code(s): D72.829 - Elevated white blood cell count, unspecified Code(s): D72.829 - Elevated white blood cell count, unspecified Status: Acute (3) Elevated troponin: Code(s): R77.8 - Other specified abnormalities of plasma proteins Status: Acute (4) Hypoglycemia: Code(s): E16.2 - Hypoglycemia, unspecified Status: Acute (5) Anxiety: Code(s): F41.9 - Anxiety disorder, unspecified Status: Acute (6) Chronic lumbar pain: Qualifiers: Back pain laterality: right Sciatica presence: with sciatica Sciatica laterality: sciatica of right side Qualified Code(s): M54.41 - Lumbago with sciatica, right side; G89.29 - Other chronic pain Code(s): M54.50 - Low back pain, unspecified; G89.29 - Other chronic pain Status: Acute (7) Hypertension: Qualifiers: Hypertension type: primary hypertension Qualified Code(s): I10 - Essential (primary) hypertension Code(s): I10 - Essential (primary) hypertension Status: Acute (8) Hyperlipidemia: Qualifiers: Hyperlipidemia type: unspecified Qualified Code(s): E78.5 - Hyperlipidemia, unspecified Code(s): E78.5 - Hyperlipidemia, unspecified Status: Acute Additional Plan # Right lower leg extremity weakness likely exacerbated for it to her chronic back pain/neuropathy related to it. CTA is negative for any acute stroke. MRI is planned on Monday neurology has been consulted. Aspirin Plavix as advised by Neurology. Not a tPA candidate. Will check ct lumbar spine. X-ray hip will be ordered as well. # History of chronic back pain # Leukocytosis clear etiology does have UTI and evidence of pneumonia the clinically no symptoms present for pneumonia. Blood culture has been obtained. Lactic acid is normal no signs of sepsis. Empirically started on ceftriaxone and azithromycin follow culture # Hypoglycemia likely d
[2021-04-27 18:01] VITALS: BP 129/70; PULSE 90; RESP 16; TEMP 36.1; O2SAT 99
[2021-04-27 21:08] VITALS: O2SAT 98
[2021-04-27 21:22] VITALS: BP 138/79; PULSE 90; RESP 17; TEMP 36.6; O2SAT 97
[2021-04-28 00:39] VITALS: BP 153/51; PULSE 90; RESP 18; TEMP 36.7; O2SAT 98
[2021-04-28 04:05] VITALS: BP 149/84; PULSE 84; RESP 18; TEMP 36.4; O2SAT 98
[2021-04-28 05:51] LABS: Hematocrit 30.8 % (37.0-47.0); Hemoglobin 10.3 g/dL (12.0-15.0); Mean Corpuscular HGB Conc 33.4 g/dl (32-36); Mean Corpuscular Hemoglobin 29.9 pg (26-34); Mean Corpuscular Volume 89.5 fl (80-100); Mean Platelet Volume 9.8 fl (7.4-10.4); Platelet Count Result 233 k/mm3 (150-375); Red Blood Count 3.44 M/mm3 (4.2-5.4); Red Cell Distribution Width 13.5 % (11.5-14.5)
[2021-04-28 05:57] LABS: Alanine Aminotransferase 150 U/L (4-35); Albumin Level 3.2 g/dL (3.5-5.1); Alkaline Phosphatase 34 U/L (38-126); Anion Gap 4 mmol/L (8-16); Aspartate Amino Transferase 192 U/L (14-36); Bilirubin,Total 0.5 mg/dL (0.2-1.3); Blood Urea Nitrogen 12 mg/dL (7-17); Calcium 8.9 mg/dL (8.4-10.2); Carbon Dioxide 29 mmol/L (22-30); Chloride 104 mmol/L (98-107); Estimated Glomerular Filt Rate > 60; Glucose 99 mg/dL (65-110); Potassium 3.8 mmol/L (3.4-5.0); Sodium 137 mmol/L (137-145)
[2021-04-28] MEDS: SODIUM CHLORIDE 0.9% IV 1,000 ML 125 ML IV CONT ×3 (06:19→13:53)
[2021-04-28 07:06] LABS: Creatine Kinase 6749 U/L (30-135)
[2021-04-28] MEDS: ASPIRIN 81 MG ENTERIC TABLET PO (07:56)
[2021-04-28] MEDS: CLOPIDOGREL BISULFATE 75 MG TABLET PO (07:56)
[2021-04-28] MEDS: SIMVASTATIN 10 MG TABLET PO (07:56)
[2021-04-28] MEDS: LOSARTAN POTASSIUM 50 MG TABLET PO (07:56)
[2021-04-28] MEDS: MELOXICAM 7.5 MG TABLET 15 MG PO (07:56)
[2021-04-28] MEDS: CHOLECALCIFEROL 1,000 UNITS TABLET 1000 UNITS PO (07:56)
[2021-04-28] MEDS: ENOXAPARIN 40 MG/0.4 ML SYRINGE SUB-Q (07:57)
--- NOTE | 2021-04-28 13:49 | WPDNEUROPN ---
Progress Note: A&P Additional Plan 1 TIA 2 urinary tract infection 3 CPK elevation secondary to muscle trauma no evidence of underlying muscle disease though still aldolase pending Subjective Date/time seen: 04/28/21 13:49 1. TIA 2. Low back pain with history of surgery in the past. MRI of the brain is normal so as the Doppler study of the lower limbs and CT scan of the lower back documented only moderate lumbar spondylosis with posterior fusion procedure at L3-[address] but no lumbar stenosis SARS-CoV-2 id negative and UA abnormal with urine culture showing E coli and Klebsiella pneumoniae most likely attributing to the back pain, echocardiogram without atrial involvement but with mild aortic valve sclerosis mitral valve calcified annulus and mild to moderate tricuspid regurgitation and CPK definitely coming down to 6749 from 13,919 Review of Systems Review of Systems: All systems reviewed & are unremarkable except as noted in HPI and below Exam Const: General: cooperative, comfortable and no acute distress Nutritional Appearance: average body habitus Orientation/consciousness: oriented to person, oriented to place, oriented to time and patient oriented x3 Limitations: no limitations HENMT: Head: normal to inspection and normocephalic Ears: hearing grossly normal bilaterally General nose exam: Normal external nose present Face and sinus: normal facial exam Mouth: Yes Normal oral and palatal mucosa present Eyes: General: appearance normal, both eyes and all related structures Visual Mcpherson: normal visual mcpherson by confrontation Alignment and Position: alignment normal Periorbital: periorbital findings normal Eyelids: eyelids normal Conjunctivae: conjunctivae normal Sclera: sclerae normal Cornea: corneas normal Pupils: Equal, round and reactive pupils present EOM: EOMs intact bilaterally Direct Ophthalmoscopy: normal light reflex Neck: Neck: normal visual inspection, full ROM and no lymphadenopathy Resp: Effort & Inspection: able to speak in complete sentences Cardio: Rate: regular rate Neuro: General: oriented to person, oriented to place and oriented to time Cranial nerves: Yes CN's II-XII intact bilaterally Cognition (Neuro): normal cognition Speech: normal speech Motor exam (neuro): Pronator motor function not present and No tremor noted Sensory Exam: normal sensation Deep tendon reflexes (DTR's): Right triceps reflex intensity grade: 1+, Left triceps reflex intensity grade: 1+, Rt Biceps (C5, C6): 1+, Left biceps reflex intensity grade: 1+, Right brachioradialis reflex intensity grade: 1+, Left brachioradialis reflex intensity grade: 1+, Right patellar reflex intensity grade: 1+, Left patellar reflex intensity grade: 1+, Right ankle reflex intensity grade: 1+ and Left ankle reflex intensity grade: 1+ Psych: Appearance: grossly normal Mental Status: mental status grossly normal Speech and movement: Normal speech and movement present Affect: normal affect Attitude: cooperative Thought process: Normal thought process present Thought content: Yes Normal thought content present Insight: Good insight present (Psych) Judgement: Good judgement present (Psych) Objective Data Vital Signs Vital Signs: Vital Signs - 24 hr 04/27/21 18:01 04/27/21 21:08 04/27/21 21:22 Temperature 36.1 C L 36.6 C Pulse Rate 90 90 Respiratory Rate 16 17 Blood Pressure 129/70 138/79 Pulse Oximetry 99 98 97 04/28/21 00:39 04/28/21 04:05 Temperature 36.7 C 36.4 C Pulse Rate 90 84 Respiratory Rate 18 18 Blood Pressure 153/51 H 149/84 H Pulse Oximetry 98 98 Intake/Output Intake/Output: Intake & Output 04/25/21 04/26/21 04/27/21 04/28/21 23:59 23:59 23:59 23:59 Intake Total 3330 2440 4580 2700 Output Total 900 4950 4000 350 Balance 2430 -2510 580 2350 Meds/Results Medications: Active Medications Generic Name Dose Route Start Last Admin Trade Name Freq PRN Reason Stop Dose Admin Aspirin 81 mg 04/25/21 09:00 0
[2021-04-28 14:00] VITALS: BP 134/77; PULSE 88; RESP 14; TEMP 36; O2SAT 100
--- NOTE | 2021-04-28 14:51 | PM.IMPN ---
Progress Note: A&P Assessment and Plan (1) TIA (transient ischemic attack): Code(s): G45.9 - Transient cerebral ischemic attack, unspecified Status: Acute Assessment and Plan: 04/25/2021 Interval history: patient is 61-year-old female presented with upper and lower extremity weakness, today patient states the symptoms have improved and not as weak, CT scan of the head is negative for any acute injury, CT scan of the lumbar spine did not show any acute injury patient does have moderate lumbar spondylolysis and posterior fusion procedure of L 3 and 4, to further evaluate patient will have MRI, patient be seen by neurologist, will have a PT OT evaluate the patient and further recommendation to follow. 04/26/2021 Interval history: patient is 61-year-old female presented with upper and lower extremity weakness, today patient states the symptoms have improved and not as weak, CT scan of the head is negative for any acute injury, CT scan of the lumbar spine did not show any acute injury patient does have moderate lumbar spondylolysis and posterior fusion procedure of L 3 and 4, to further evaluate patient had MRI which is regla, today patient's right lower extremity is more swallen will do venous Doppler to further evaluate, patient also is found to have rhabdomyolysis upon arrival CK level were or 16,000, will gently hydrate the patient and monitor,patient seen by neurologist, will have a PT OT evaluate the patient and further recommendation to follow. 04/27/2021 interval history today patient states feeling much better denies any pain, patient with rhabdomyolysis not sure how long she was on the ground before she was brought to the emergency depart, upon a patient CK level were greater than 16,000 patient is being gently hydrated CK levels are trending down [id number] will continued gently hydrate the patient and monitor, the PT OT evaluate the patient and further recommendation to follow. 04/28/2021 interval history today patient states feeling much better denies any pain, patient with rhabdomyolysis not sure how long she was on the ground before she was brought to the emergency depart, upon arrival patient CK level were greater than 16,000 patient is being gently hydrated CK levels are trending down 6749, will continue gently hydration the patient and monitor, the PT OT evaluate the patient and further recommendation to follow. (2) Leukocytosis: Qualifiers: Leukocytosis type: unspecified Qualified Code(s): D72.829 - Elevated white blood cell count, unspecified Code(s): D72.829 - Elevated white blood cell count, unspecified Status: Acute (3) Elevated troponin: Code(s): R77.8 - Other specified abnormalities of plasma proteins Status: Acute (4) Hypoglycemia: Code(s): E16.2 - Hypoglycemia, unspecified Status: Acute (5) Anxiety: Code(s): F41.9 - Anxiety disorder, unspecified Status: Acute (6) Chronic lumbar pain: Qualifiers: Back pain laterality: right Sciatica presence: with sciatica Sciatica laterality: sciatica of right side Qualified Code(s): M54.41 - Lumbago with sciatica, right side; G89.29 - Other chronic pain Code(s): M54.50 - Low back pain, unspecified; G89.29 - Other chronic pain Status: Acute (7) Hypertension: Qualifiers: Hypertension type: primary hypertension Qualified Code(s): I10 - Essential (primary) hypertension Code(s): I10 - Essential (primary) hypertension Status: Acute (8) Hyperlipidemia: Qualifiers: Hyperlipidemia type: unspecified Qualified Code(s): E78.5 - Hyperlipidemia, unspecified Code(s): E78.5 - Hyperlipidemia, unspecified Status: Acute Additional Plan # Right lower leg extremity weakness likely exacerbated for it to her chronic back pain/neuropathy related to it. CTA is negative for any acute stroke. MRI is planned on Monday neurology has been cons
[2021-04-28 20:08] VITALS: BP 147/86; PULSE 87; RESP 17; TEMP 36.6; O2SAT 98
[2021-04-29] MEDS: SODIUM CHLORIDE 0.9% IV 1,000 ML 125 ML IV CONT ×3 (02:06→19:23)
[2021-04-29 04:58] VITALS: BP 151/86; PULSE 91; RESP 18; TEMP 36.1; O2SAT 97
[2021-04-29 05:54] LABS: Hemoglobin 11.1 g/dL (12.0-15.0); Mean Corpuscular HGB Conc 32.6 g/dl (32-36); Mean Corpuscular Hemoglobin 30.2 pg (26-34); Mean Corpuscular Volume 92.4 fl (80-100); Platelet Count Result 253 k/mm3 (150-375); Red Blood Count 3.68 M/mm3 (4.2-5.4); Red Cell Distribution Width 13.3 % (11.5-14.5); White Blood Count 7.2 K/mm3 (4.5-10.0)
[2021-04-29 06:21] LABS: Alanine Aminotransferase 132 U/L (4-35); Albumin Level 3.4 g/dL (3.5-5.1); Alkaline Phosphatase 40 U/L (38-126); Anion Gap 2 mmol/L (8-16); Aspartate Amino Transferase 121 U/L (14-36); Bilirubin,Total 0.5 mg/dL (0.2-1.3); Blood Urea Nitrogen 11 mg/dL (7-17); Calcium 9.3 mg/dL (8.4-10.2); Carbon Dioxide 28 mmol/L (22-30); Chloride 106 mmol/L (98-107); Estimated Glomerular Filt Rate > 60; Glucose 102 mg/dL (65-110); Potassium 3.5 mmol/L (3.4-5.0); Sodium 136 mmol/L (137-145)
[2021-04-29 06:33] LABS: Creatine Kinase 3499 U/L (30-135)
[2021-04-29] MEDS: MELOXICAM 7.5 MG TABLET 15 MG PO (08:52)
[2021-04-29] MEDS: LOSARTAN POTASSIUM 50 MG TABLET PO (08:52)
[2021-04-29] MEDS: ENOXAPARIN 40 MG/0.4 ML SYRINGE SUB-Q (08:52)
[2021-04-29] MEDS: ASPIRIN 81 MG ENTERIC TABLET PO (08:52)
[2021-04-29] MEDS: SIMVASTATIN 10 MG TABLET PO (08:52)
[2021-04-29] MEDS: CLOPIDOGREL BISULFATE 75 MG TABLET PO (08:52)
[2021-04-29] MEDS: CHOLECALCIFEROL 1,000 UNITS TABLET 1000 UNITS PO (08:52)
--- NOTE | 2021-04-29 13:29 | PCOTNOTE ---
Patient performed ADLs consistent with PLOF, no skilled OT indicated at this time will discharge from OT services.
[2021-04-29 14:15] VITALS: BP 121/50; PULSE 63; RESP 16; TEMP 37; O2SAT 95
--- NOTE | 2021-04-29 16:00 | PM.IMPN ---
Progress Note: A&P Assessment and Plan (1) TIA (transient ischemic attack): Code(s): G45.9 - Transient cerebral ischemic attack, unspecified Status: Acute Assessment and Plan: 04/25/2021 Interval history: patient is 61-year-old female presented with upper and lower extremity weakness, today patient states the symptoms have improved and not as weak, CT scan of the head is negative for any acute injury, CT scan of the lumbar spine did not show any acute injury patient does have moderate lumbar spondylolysis and posterior fusion procedure of L 3 and 4, to further evaluate patient will have MRI, patient be seen by neurologist, will have a PT OT evaluate the patient and further recommendation to follow. 04/26/2021 Interval history: patient is 61-year-old female presented with upper and lower extremity weakness, today patient states the symptoms have improved and not as weak, CT scan of the head is negative for any acute injury, CT scan of the lumbar spine did not show any acute injury patient does have moderate lumbar spondylolysis and posterior fusion procedure of L 3 and 4, to further evaluate patient had MRI which is regla, today patient's right lower extremity is more swallen will do venous Doppler to further evaluate, patient also is found to have rhabdomyolysis upon arrival CK level were or 16,000, will gently hydrate the patient and monitor,patient seen by neurologist, will have a PT OT evaluate the patient and further recommendation to follow. 04/27/2021 interval history today patient states feeling much better denies any pain, patient with rhabdomyolysis not sure how long she was on the ground before she was brought to the emergency depart, upon a patient CK level were greater than 16,000 patient is being gently hydrated CK levels are trending down [id number] will continued gently hydrate the patient and monitor, the PT OT evaluate the patient and further recommendation to follow. 04/28/2021 interval history today patient states feeling much better denies any pain, patient with rhabdomyolysis not sure how long she was on the ground before she was brought to the emergency depart, upon arrival patient CK level were greater than 16,000 patient is being gently hydrated CK levels are trending down 6749, will continue gently hydration the patient and monitor, the PT OT evaluate the patient and further recommendation to follow. 04/29/2021 interval history today patient states feeling much better denies any pain, patient with rhabdomyolysis not sure how long she was on the ground before she was brought to the emergency depart, upon arrival patient CK levels were greater than 16,000 patient is being gently hydrated CK levels are trending down 3499, will continue gently hydration, and monitor, the PT OT evaluate the patient and further recommendation to follow. (2) Leukocytosis: Qualifiers: Leukocytosis type: unspecified Qualified Code(s): D72.829 - Elevated white blood cell count, unspecified Code(s): D72.829 - Elevated white blood cell count, unspecified Status: Acute (3) Elevated troponin: Code(s): R77.8 - Other specified abnormalities of plasma proteins Status: Acute (4) Hypoglycemia: Code(s): E16.2 - Hypoglycemia, unspecified Status: Acute (5) Anxiety: Code(s): F41.9 - Anxiety disorder, unspecified Status: Acute (6) Chronic lumbar pain: Qualifiers: Back pain laterality: right Sciatica presence: with sciatica Sciatica laterality: sciatica of right side Qualified Code(s): M54.41 - Lumbago with sciatica, right side; G89.29 - Other chronic pain Code(s): M54.50 - Low back pain, unspecified; G89.29 - Other chronic pain Status: Acute (7) Hypertension: Qualifiers: Hypertension type: primary hypertension Qualified Code(s): I10 - Essential (primary) hypertension Code(s): I10 - Essential (primary) hypertension
[2021-04-29 20:34] VITALS: PULSE 82; O2SAT 95
[2021-04-29 21:14] VITALS: BP 153/87; PULSE 82; RESP 16; TEMP 36.5; O2SAT 100
[2021-04-30] MEDS: SODIUM CHLORIDE 0.9% IV 1,000 ML 125 ML IV CONT ×3 (03:16→20:00)
[2021-04-30 06:41] VITALS: BP 144/87; PULSE 79; RESP 18; TEMP 36.2; O2SAT 98
[2021-04-30 06:57] LABS: Hematocrit 31.5 % (37.0-47.0); Hemoglobin 10.9 g/dL (12.0-15.0); Mean Corpuscular HGB Conc 34.6 g/dl (32-36); Mean Corpuscular Hemoglobin 30.4 pg (26-34); Mean Corpuscular Volume 87.7 fl (80-100); Mean Platelet Volume 9.7 fl (7.4-10.4); Platelet Count Result 275 k/mm3 (150-375); Red Blood Count 3.59 M/mm3 (4.2-5.4); Red Cell Distribution Width 13.5 % (11.5-14.5); White Blood Count 7.4 K/mm3 (4.5-10.0)
[2021-04-30] MEDS: CHOLECALCIFEROL 1,000 UNITS TABLET 1000 UNITS PO (08:06)
[2021-04-30] MEDS: ASPIRIN 81 MG ENTERIC TABLET PO (08:06)
[2021-04-30] MEDS: SIMVASTATIN 10 MG TABLET PO (08:06)
[2021-04-30] MEDS: LOSARTAN POTASSIUM 50 MG TABLET PO (08:06)
[2021-04-30] MEDS: CLOPIDOGREL BISULFATE 75 MG TABLET PO (08:06)
[2021-04-30] MEDS: MELOXICAM 7.5 MG TABLET 15 MG PO (08:06)
[2021-04-30] MEDS: ENOXAPARIN 40 MG/0.4 ML SYRINGE SUB-Q (08:07)
[2021-04-30 08:14] LABS: Alanine Aminotransferase 104 U/L (4-35); Albumin Level 3.2 g/dL (3.5-5.1); Alkaline Phosphatase 35 U/L (38-126); Anion Gap 4 mmol/L (8-16); Aspartate Amino Transferase 69 U/L (14-36); Bilirubin,Total 0.4 mg/dL (0.2-1.3); Blood Urea Nitrogen 9 mg/dL (7-17); Carbon Dioxide 29 mmol/L (22-30); Chloride 105 mmol/L (98-107); Creatine Kinase 986 U/L (30-135); Estimated Glomerular Filt Rate > 60; Glucose 119 mg/dL (65-110); Potassium 3.3 mmol/L (3.4-5.0); Sodium 138 mmol/L (137-145)
[2021-04-30] MEDS: POTASSIUM CHLORIDE 20 MEQ TABLET 40 MEQ PO (08:57)
[2021-04-30] MEDS: DOCUSATE SODIUM 100 MG CAPSULE PO (08:57)
[2021-04-30] MEDS: LORazepam (*CRX) 0.5 MG TABLET PO (12:35)
[2021-04-30 14:00] VITALS: O2SAT 99
[2021-04-30 14:05] VITALS: BP 137/71; PULSE 88; RESP 20; TEMP 36.1; O2SAT 99
--- NOTE | 2021-04-30 16:27 | PM.IMPN ---
Progress Note: A&P Assessment and Plan (1) TIA (transient ischemic attack): Code(s): G45.9 - Transient cerebral ischemic attack, unspecified Status: Acute Assessment and Plan: 04/25/2021 Interval history: patient is 61-year-old female presented with upper and lower extremity weakness, today patient states the symptoms have improved and not as weak, CT scan of the head is negative for any acute injury, CT scan of the lumbar spine did not show any acute injury patient does have moderate lumbar spondylolysis and posterior fusion procedure of L 3 and 4, to further evaluate patient will have MRI, patient be seen by neurologist, will have a PT OT evaluate the patient and further recommendation to follow. 04/26/2021 Interval history: patient is 61-year-old female presented with upper and lower extremity weakness, today patient states the symptoms have improved and not as weak, CT scan of the head is negative for any acute injury, CT scan of the lumbar spine did not show any acute injury patient does have moderate lumbar spondylolysis and posterior fusion procedure of L 3 and 4, to further evaluate patient had MRI which is regla, today patient's right lower extremity is more swallen will do venous Doppler to further evaluate, patient also is found to have rhabdomyolysis upon arrival CK level were or 16,000, will gently hydrate the patient and monitor,patient seen by neurologist, will have a PT OT evaluate the patient and further recommendation to follow. 04/27/2021 interval history today patient states feeling much better denies any pain, patient with rhabdomyolysis not sure how long she was on the ground before she was brought to the emergency depart, upon a patient CK level were greater than 16,000 patient is being gently hydrated CK levels are trending down [id number] will continued gently hydrate the patient and monitor, the PT OT evaluate the patient and further recommendation to follow. 04/28/2021 interval history today patient states feeling much better denies any pain, patient with rhabdomyolysis not sure how long she was on the ground before she was brought to the emergency depart, upon arrival patient CK level were greater than 16,000 patient is being gently hydrated CK levels are trending down 6749, will continue gently hydration the patient and monitor, the PT OT evaluate the patient and further recommendation to follow. 04/29/2021 interval history today patient states feeling much better denies any pain, patient with rhabdomyolysis not sure how long she was on the ground before she was brought to the emergency depart, upon arrival patient CK levels were greater than 16,000 patient is being gently hydrated CK levels are trending down 3499, will continue gently hydration, and monitor, the PT OT evaluate the patient and further recommendation to follow. 04/30/2021 interval history today patient states feeling much better denies any pain, patient with rhabdomyolysis not sure how long she was on the ground before she was brought to the emergency depart, upon arrival patient CK levels were greater than 16,000 patient is being gently hydrated CK levels are trending down 986, will continue gently hydration, and monitor, the PT OT evaluate the patient and further recommendation to follow. (2) Leukocytosis: Qualifiers: Leukocytosis type: unspecified Qualified Code(s): D72.829 - Elevated white blood cell count, unspecified Code(s): D72.829 - Elevated white blood cell count, unspecified Status: Acute (3) Elevated troponin: Code(s): R77.8 - Other specified abnormalities of plasma proteins Status: Acute (4) Hypoglycemia: Code(s): E16.2 - Hypoglycemia, unspecified Status: Acute (5) Anxiety: Code(s): F41.9 - Anxiety disorder, unspecified Status: Acute (6) Chronic lumbar pain: Qualifiers: Back pain laterality: right Sciatica presence: with sciatic
[2021-04-30 19:33] VITALS: PULSE 90; O2SAT 97
[2021-04-30 20:10] VITALS: BP 149/90; PULSE 80; RESP 18; TEMP 37.4; O2SAT 98
[2021-05-01] MEDS: ACETAMINOPHEN 500 MG TABLET 1000 MG PO (02:21)
[2021-05-01 04:57] VITALS: BP 147/91; PULSE 92; RESP 18; TEMP 37.8; O2SAT 97
[2021-05-01 05:56] LABS: Hematocrit 31.1 % (37.0-47.0); Hemoglobin 10.6 g/dL (12.0-15.0); Mean Corpuscular HGB Conc 34.1 g/dl (32-36); Mean Corpuscular Hemoglobin 30.5 pg (26-34); Mean Corpuscular Volume 89.4 fl (80-100); Mean Platelet Volume 9.8 fl (7.4-10.4); Platelet Count Result 304 k/mm3 (150-375); Red Blood Count 3.48 M/mm3 (4.2-5.4); Red Cell Distribution Width 13.6 % (11.5-14.5); White Blood Count 7.5 K/mm3 (4.5-10.0)
[2021-05-01] MEDS: SODIUM CHLORIDE 0.9% IV 1,000 ML 125 ML IV CONT (06:00)
[2021-05-01 06:19] LABS: Alanine Aminotransferase 89 U/L (4-35); Albumin Level 3.5 g/dL (3.5-5.1); Alkaline Phosphatase 35 U/L (38-126); Anion Gap 3 mmol/L (8-16); Aspartate Amino Transferase 50 U/L (14-36); Bilirubin,Total 0.5 mg/dL (0.2-1.3); Blood Urea Nitrogen 11 mg/dL (7-17); Calcium 9.2 mg/dL (8.4-10.2); Carbon Dioxide 28 mmol/L (22-30); Chloride 106 mmol/L (98-107); Creatine Kinase 572 U/L (30-135); Estimated Glomerular Filt Rate > 60; Glucose 102 mg/dL (65-110); Potassium 3.7 mmol/L (3.4-5.0); Sodium 137 mmol/L (137-145)
[2021-05-01 07:32] LABS: Aldolase 63.4 U/L (<=8.1)
[2021-05-01] MEDS: CHOLECALCIFEROL 1,000 UNITS TABLET 1000 UNITS PO (08:20)
[2021-05-01] MEDS: MELOXICAM 7.5 MG TABLET 15 MG PO (08:20)
[2021-05-01] MEDS: SIMVASTATIN 10 MG TABLET PO (08:21)
[2021-05-01] MEDS: ENOXAPARIN 40 MG/0.4 ML SYRINGE SUB-Q (08:21)
[2021-05-01] MEDS: CLOPIDOGREL BISULFATE 75 MG TABLET PO (08:21)
[2021-05-01] MEDS: ASPIRIN 81 MG ENTERIC TABLET PO (08:21)
[2021-05-01] MEDS: LOSARTAN POTASSIUM 50 MG TABLET PO (08:21)
[2021-05-01] MEDS: LORazepam (*CRX) 0.5 MG TABLET PO (08:28)
--- NOTE | 2021-05-01 08:58 | PM.DS ---
DS: Admitting Diagnosis Discharge Date 05/01/2021 Admitting Diagnosis right leg weakness DS: Discharge Diagnosis Discharge Diagnosis (1) TIA (transient ischemic attack): Code(s): G45.9 - Transient cerebral ischemic attack, unspecified Status: Acute Assessment and Plan: 04/25/2021 Interval history: patient is 61-year-old female presented with upper and lower extremity weakness, today patient states the symptoms have improved and not as weak, CT scan of the head is negative for any acute injury, CT scan of the lumbar spine did not show any acute injury patient does have moderate lumbar spondylolysis and posterior fusion procedure of L 3 and 4, to further evaluate patient will have MRI, patient be seen by neurologist, will have a PT OT evaluate the patient and further recommendation to follow. 04/26/2021 Interval history: patient is 61-year-old female presented with upper and lower extremity weakness, today patient states the symptoms have improved and not as weak, CT scan of the head is negative for any acute injury, CT scan of the lumbar spine did not show any acute injury patient does have moderate lumbar spondylolysis and posterior fusion procedure of L 3 and 4, to further evaluate patient had MRI which is regla, today patient's right lower extremity is more swallen will do venous Doppler to further evaluate, patient also is found to have rhabdomyolysis upon arrival CK level were or 16,000, will gently hydrate the patient and monitor,patient seen by neurologist, will have a PT OT evaluate the patient and further recommendation to follow. 04/27/2021 interval history today patient states feeling much better denies any pain, patient with rhabdomyolysis not sure how long she was on the ground before she was brought to the emergency depart, upon a patient CK level were greater than 16,000 patient is being gently hydrated CK levels are trending down [id number] will continued gently hydrate the patient and monitor, the PT OT evaluate the patient and further recommendation to follow. 04/28/2021 interval history today patient states feeling much better denies any pain, patient with rhabdomyolysis not sure how long she was on the ground before she was brought to the emergency depart, upon arrival patient CK level were greater than 16,000 patient is being gently hydrated CK levels are trending down 6749, will continue gently hydration the patient and monitor, the PT OT evaluate the patient and further recommendation to follow. 04/29/2021 interval history today patient states feeling much better denies any pain, patient with rhabdomyolysis not sure how long she was on the ground before she was brought to the emergency depart, upon arrival patient CK levels were greater than 16,000 patient is being gently hydrated CK levels are trending down 3499, will continue gently hydration, and monitor, the PT OT evaluate the patient and further recommendation to follow. 04/30/2021 interval history today patient states feeling much better denies any pain, patient with rhabdomyolysis not sure how long she was on the ground before she was brought to the emergency depart, upon arrival patient CK levels were greater than 16,000 patient is being gently hydrated CK levels are trending down 986, will continue gently hydration, and monitor, the PT OT evaluate the patient and further recommendation to follow. (2) Leukocytosis: Qualifiers: Leukocytosis type: unspecified Qualified Code(s): D72.829 - Elevated white blood cell count, unspecified Code(s): D72.829 - Elevated white blood cell count, unspecified Status: Acute (3) Elevated troponin: Code(s): R77.8 - Other specified abnormalities of plasma proteins Status: Acute (4) Hypoglycemia: Code(s): E16.2 - Hypoglycemia, unspecified Status: Acute (5) Anxiety: Code(s): F41.9 - Anxiety disorder, unspecified Status: Acute (6) Chronic l
== END 2021-05-01 12:25 | disposition home or self-care (01) | DRG 69 ==
LOC: ANHED 20:32 → ANHIMU 04-26 05:26 → ANH3MED 04-28 09:44 → ANHIMU 04-28 09:44
PROVIDERS: Psychiatry & Neurology Neurology; Admitting Provider Internal Medicine; Emergency Provider Emergency Medicine; PCP Nurse Practitioner; Visit Provider Family Medicine
DX: G45.9 Transient cerebral ischemic attack, unspecified (principal); N39.0 Urinary tract infection, site not specified; M62.82 Rhabdomyolysis; E87.1 Hypo-osmolality and hyponatremia; N17.9 Acute kidney failure, unspecified; B96.1 Klebsiella pneumoniae [K. pneumoniae] as the cause of diseases classified elsewhere; Z20.822 Contact with and (suspected) exposure to COVID-19; D72.829 Elevated white blood cell count, unspecified; R77.8 Other specified abnormalities of plasma proteins; F41.9 Anxiety disorder, unspecified; E16.2 Hypoglycemia, unspecified; M47.816 Spondylosis without myelopathy or radiculopathy, lumbar region; M54.41 Lumbago with sciatica, right side; G89.29 Other chronic pain; I10 Essential (primary) hypertension; E78.5 Hyperlipidemia, unspecified; R29.898 Other symptoms and signs involving the musculoskeletal system; Z79.899 Other long term (current) drug therapy; Z98.1 Arthrodesis status
CPT/HCPCS: 36415; 70496; 70498; 70551; 71045; 72131; 73521; 80048; 80053; 81001; 82085; 82550; 82948; 83605; 83735; 84484; 85025; 85027; 85610; 85730; 87040; 87077; 87086; 87088; 87186; 93005; 93306; 93970; 96361; 96365; 96366; 96367; 96368; 96372; 97110; 97116; 97161; 97165; 97530; 97535; 99285; A9270; C9803; G0378; J0456; J0696; J1650; J7030; J7120; Q9967; U0003; U0005

== ENCOUNTER 2021-05-18 17:12 | Outpatient (CLI) | payer OTHER, SELFPAY ==
--- NOTE | ~2021-05-18 | MM_ITS ---
EXAMINATION: MM screening adan BI w sara HISTORY: Screening TECHNIQUE: Craniocaudal and mediolateral oblique 3-D tomosynthesis images were obtained and synthetic 2-D images were generated. CAD analysis was submitted and interpreted. COMPARISON: Comparison to multiple prior studies sequentially, with oldest reviewed study dated 08/20. BREAST PARENCHYMAL COMPOSITION: There are scattered areas of fibroglandular density. FINDINGS: There is no evidence of suspicious mass, calcification, or architectural distortion to sugg est malignancy in either breast. There has been no suspicious interval change. IMPRESSION: 1. No mammographic evidence of malignancy. 2. Recommend routine screening mammography in one year. 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
== END 2021-05-18 17:13 | disposition home or self-care (01) ==
LOC: ANHIMG 17:14
PROVIDERS: PCP Internal Medicine; Visit Provider Nurse Practitioner
DX: Z12.31 Encounter for screening mammogram for malignant neoplasm of breast (principal)
CPT/HCPCS: 77063; 77067

== ENCOUNTER 2021-08-24 15:02 | Outpatient (CLI) | payer OTHER, SELFPAY ==
--- NOTE | ~2021-08-24 | DEXA_ITS ---
Bone Density Report Name: SAMAN RAY Age: 61 Sex: Female Ethnicity: White Date of : 1960 Indication: osteopenia; postmenopausal Referring Provider: MINI RODRIGUEZ Study: Bone densitometry was performed. Exam Date: August 24, 2021 Accession number: [id number] Bone Density: Region BMD T-score Z-score Classification AP Spine(L1, L2, L3) 0.854 -1.5 0.1 Osteopenia Femoral Neck (Left) 0.779 -0.6 0.8 Normal Total Hip (Left) 0.898 -0.4 0.8 Normal Femoral Neck (Right) 0.825 -0.2 1.2 Normal Total Hip (Right) 0.901 -0.3 0.8 Normal Total Hip Mean 0.899 -0.4 0.8 Normal World Health Organization criteria for BMD impression classify patients as: Normal (T-score at or above -1.0), Osteopenia (T-score between -1.0 and -2.5), or Osteoporosis (T-score at or below -2.5). 10-year Fracture Risk(1): Major Osteoporotic Fracture 7.2% Hip Fracture 0.3% Reported Risk Factors: [place] (), Neck BMD=0.779, BMI=29.5 (1) FRAX(R) Version 3.08. Fracture probability calculated for an untreated patient. Fracture probability may be lower if the patient has received treatment. Previous Exams: Region Exam Age BMD T-score BMD Change BMD Change Date g/cm2 vs Baseline vs Previous AP Spine (L1-L3) 08/24/2021 61 0.854 -1.5 -0.060 (-6.6%) -0.031 (-3.5%) 10/01/2018 58 0.884 -1.2 -0.029 (-3.2%) -0.021 (-2.3%) 08/31/2015 55 0.905 -1.0 -0.009 (-1.0%) -0.009 (-1.0%) 06/17/2011 51 0.914 -0.9 Total Hip(Left) 08/24/2021 61 0.898 -0.4 -0.143 (-13.7% -0.026 (-2.8%) 10/01/2018 58 0.924 -0.1 -0.117 (-11.2% -0.057 (-5.8%) 08/31/2015 55 0.980 0.3 -0.060 (-5.8%) -0.060 (-5.8%) 06/17/2011 51 1.041 0.8 Total Hip(Right) 08/24/2021 61 0.901 -0.3 -0.142 (-13.6% -0.066 (-6.8%) 10/01/2018 58 0.967 0.2 -0.076 (-7.3%) -0.017 (-1.7%) 08/31/2015 55 0.984 0.3 -0.059 (-5.7%) -0.059 (-5.7%) 06/17/2011 51 1.043 0.8 *Denotes significance at 95% confidence level, LSC for AP Spine = 0.022 g/cm2, LSC for Total Hip = 0.027 g/cm2 # Denotes dissimilar scan types or analysis methods Clinical Information Provided by Patient: Has used the following medications: Vitamin D Patient maximum height was 59 Menopause Age: 48 Does not regularly consume dairy products Drinks caffeinated beverages Onset of menses at age 10 Number of children 2 Impression: The patient has low bone mass, based on the T
== END 2021-08-24 15:03 | disposition home or self-care (01) ==
PROVIDERS: PCP Family Medicine; Visit Provider Obstetrics & Gynecology Gynecology
DX: Z78.0 Asymptomatic menopausal state (principal); M85.88 Other specified disorders of bone density and structure, other site
CPT/HCPCS: 77080

== ENCOUNTER 2021-08-31 10:04 | Emergency (ER) | payer OTHER, SELFPAY ==
[2021-08-31 10:17] VITALS: BP 127/88; PULSE 98; RESP 18; TEMP 37.7; O2SAT 97
--- NOTE | 2021-08-31 10:32 | ED.GENADULT ---
HPI - General Adult General Chief complaint: Upper Respiratory Infection Stated complaint: sorethroat Source: patient Mode of arrival: ambulatory Limitations: no limitations History of Present Illness HPI narrative: Patient presents for evaluation of respiratory symptoms for the past two days. Symptoms include sore throat, bilateral otalgia, sinus congestion, nonproductive cough, fever and nausea. No chills, vomiting, diarrhea, SOB or chest pain. No recent sick contacts. No personal history of COVID. She has received COVID vaccination and two boosters. She does not smoke. She has taken mucinex and OTC cold medication. No additional complaints or concerns. Related Data Home Medications Medication Instructions Recorded Confirmed cholecalciferol (vitamin D3) 25 25 mcg PO DAILY 04/06/21 08/31/21 mcg (1,000 unit) capsule Lactobacills gasseri-Bifidobac 1 cap PO DAILY 04/25/21 08/31/21 bifidum,longum 1.5 billion cell capsule (Hyperformix) Allergies Allergy/AdvReac Type Severity Reaction Status Date / Time Sulfa (Sulfonamide AdvReac Mild Hives Verified 08/31/21 10:33 Antibiotics) sulfamethizole AdvReac Mild Hives Verified 08/31/21 10:33 sulfamethoxazole AdvReac Mild HIVES Verified 08/31/21 10:33 trimethoprim AdvReac Mild Hives Verified 08/31/21 10:33 Review of Systems Review of Systems: CONSTITUTIONAL: Reports fever. Denies chills, or sweats. EYES: Denies visual changes, redness, or discharge. ENT: Reports sinus congestion, sore throat and bilateral otalgia. CARDIOVASCULAR: Denies chest pain, palpitations, or edema. RESPIRATORY: Reports nonproductive cough. Denies dyspnea. GASTROINTESTINAL:Reports nausea. Denies abdominal pain, vomiting, or diarrhea. GENITOURINARY: Denies dysuria or hematuria. SKIN: Denies rash or itching. MUSCULOSKELETAL: Denies back pain, joint pain, or myalgia. NEUROLOGIC: Denies headache, numbness, dizziness, or weakness. PSYCHIATRIC: Denies anxiety or depression. [facility] Past Medical History Medical History (Updated 08/31/21 @ 10:45 by Layo Giang, TIRE WORKER, ) Anxiety Chronic lumbar pain History of TIA (transient ischemic attack) (~04/2021) Hyperlipidemia Hypertension Rhabdomyolysis (~04/2021) Surgical History Surgical History History of back surgery (~2019) History of cervical spinal surgery (~2014) History of melanoma excision Left shoulder History of tonsillectomy Hx of cholecystectomy (Unknown) Family History Family History Mother Family history of elevated blood lipids Family history of emphysema Hypertension Grandparent Acute myocardial infarction Family history of malignant neoplasm of urinary bladder Father Patient's father is Dementia Sibling COPD (chronic obstructive pulmonary disease) Other Anxiety Depression Family history of chronic obstructive pulmonary disease Skin cancer Social History Social History Smoking packs per day: 1 Smoking cigarettes per day: 20.0 Years smoked: 4 Smoking pack-years: 4.00 Smoking status: Former smoker Second hand tobacco smoke exposure: No Smoking end date: 04/13/80 Alcohol intake: never Substance use: never Living arrangements: alone Gender identity (if verbalized by the patient): Female Spiritual care concerns: No Exam Narrative: GENERAL: Well-appearing, well-nourished, and in no acute distress. HEAD: Normocephalic, atraumatic. EYES: PERRLA and EOMI. ENT: Nares clear, no rhinorrhea or epistaxis. Mucous membranes moist. Posterior pharyngeal erythema without exudate. Uvula is midline. Tonsils surgically absent. Bilateral TMs pearly hernandez nonbulging NECK: Supple. No adenopathy or masses. No carotid bruits or JVD CHEST: Clear to auscultation. No resp
== END 2021-08-31 10:47 | disposition home or self-care (01) ==
PROVIDERS: Emergency Provider Nurse Practitioner; PCP Family Medicine
DX: U07.1 COVID-19 (principal); Z86.73 Personal history of transient ischemic attack (TIA), and cerebral infarction without residual deficits; E78.5 Hyperlipidemia, unspecified; I10 Essential (primary) hypertension; Z85.820 Personal history of malignant melanoma of skin; Z87.891 Personal history of nicotine dependence
CPT/HCPCS: 87081; 87426; 87804; 87880; 99213; C9803; G0463

== ENCOUNTER → 2021-12-09 11:06 | Outpatient (CLI) | payer OTHER, SELFPAY ==
--- NOTE | ~2021-12-09 | XR_ITS ---
EXAMINATION: XR lumbar spine 2-3V DATE: 12/09/2021 11:21 INDICATION: Low back pain TECHNIQUE: Anteroposterior and lateral views of the lumbar spine, and cone-down lateral view of the l umbosacral junction were obtained. COMPARISON: CT, 04/24/2021 FINDINGS: There are changes of posterior fusion at L3-4. There are 2 mm of anterolisthesis of L4 on L 5. The vertebral body heights are maintained. Small degenerative osteophytes project from the anterio r endplates of multiple vertebral bodies. There is mild loss of intervertebral disc space height at L 1-2 and L2-3. IMPRESSION: 1. Moderate lumbar spondylosis lumbar spondylosis without acute findings or significant interval hurt ge. Reviewed, dictated and finalized at location A. IMPRESSION: 1. Moderate lumbar spondylosis lumbar spondylosis without acute findings or sig nificant interval change.
== END ==
PROVIDERS: PCP Family Medicine; Visit Provider Family Medicine
DX: M54.41 Lumbago with sciatica, right side (principal); G89.29 Other chronic pain; M47.896 Other spondylosis, lumbar region
CPT/HCPCS: 72100

== ENCOUNTER 2022-01-05 13:29 | Emergency (ER) | payer OTHER, SELFPAY ==
--- NOTE | ~2022-01-05 | CT_ITS ---
EXAMINATION: CT lumbar spine wo con DATE: 01/05/2022 15:46 INDICATION: Midline tenderness. History of cancer. TECHNIQUE: Computed tomography (CT) of the was performed without intravenous contrast. The dose-lengt h product was 485.08 mGy-cm. Automated exposure control and iterative reconstruction technique were e mployed. COMPARISON: CT dated 04/24/2021 FINDINGS: There is postoperative change consistent with fusion posteriorly at L3-4. There is facet hy pertrophy at L4-5 and L5-S1 with grade 1 degenerative spondylolisthesis at L4-5. Vertebral body heigh ts are maintained. There is mild disc narrowing at L4-5 and L5-S1. No significant paraspinal soft tis armando abnormality. No acute fracture or traumatic malalignment. IMPRESSION: 1. No acute fracture. 2: Moderate lumbar spondylosis. 3: Posterior fusion procedure at L3-4 Reviewed, dictated and finalized at location B.
[2022-01-05 13:54] VITALS: BP 144/88; PULSE 83; RESP 14; TEMP 36.5; O2SAT 99
--- NOTE | 2022-01-05 15:34 | ED.BACK ---
HPI - Back Pain/Injury General Chief Complaint: Back Pain/Injury <YADI He Last Filed: 01/05/22 18:20> Stated Complaint: back pain <YADI He Last Filed: 01/05/22 18:20> Time Seen by Provider: 01/05/22 15:18 <YADI He Last Filed: 01/05/22 18:20> History of Present Illness HPI Narrative: Patient is a 61-year-old female with a history of lumbar radiculopathy status post surgical repair, skin cancer, here for evaluation of acute low back pain today. Patient states that the pain came on when she was vacuuming her house. She has a history of chronic back pain attributed to lumbar radiculopathy but states that this feels different in nature, states that sharp and stabbing. Attempted ibuprofen without any relief of her symptoms. No fevers, weight loss, saddle anesthesia, incontinence or retention of bowel or bladder. <YADI He Last Filed: 01/05/22 18:20> Related Data Home Medications: Home Medications Medication Instructions Recorded Confirmed cholecalciferol (vitamin D3) 25 25 mcg PO DAILY 04/06/21 12/09/21 mcg (1,000 unit) capsule Lactobacills gasseri-Bifidobac 1 cap PO DAILY 04/25/21 12/09/21 bifidum,longum 1.5 billion cell capsule ([employer]) <YADI He Last Filed: 01/05/22 18:20> Allergies/Adverse Reactions: Allergies Allergy/AdvReac Type Severity Reaction Status Date / Time Sulfa (Sulfonamide AdvReac Mild Hives Verified 01/05/22 15:25 Antibiotics) sulfamethizole AdvReac Mild Hives Verified 01/05/22 15:25 sulfamethoxazole AdvReac Mild HIVES Verified 01/05/22 15:25 trimethoprim AdvReac Mild Hives Verified 01/05/22 15:25 <YADI He Last Filed: 01/05/22 18:20> Review of Systems Review of Systems: Gen: Denies fevers or chills Eyes: Denies eye pain or visual change ENT: Denies congestion Respiratory: Denies shortness of breath or cough CV: Denies chest pain or palpitations GI: Denies abdominal pain nausea, emesis or diarrhea denies burning, urgency, frequency or hematuria Musculoskeletal: Reports low back pain. Denies back pain or muscle pain Neuro: Denies numbness, tingling, weakness or focal weakness Skin: Denies rash Except as documented, all other systems reviewed and negative <Clarissa Ruiz PA-C - Last Filed: 01/05/22 18:20> [facility] Past Medical History Medical History: Medical History Anxiety Chronic lumbar pain History of TIA (transient ischemic attack) (~04/2021) Hyperlipidemia Hypertension Rhabdomyolysis (~04/2021) <Clarissa Ruiz PA-C - Last Filed: 01/05/22 18:20> Surgical History Surgical History: Surgical History History of back surgery (~2018) History of cervical spinal surgery (~2014) History of melanoma excision Left shoulder History of tonsillectomy Hx of cholecystectomy (Unknown) <Clarissa Ruiz PA-C - Last Filed: 01/05/22 18:20> Family History Family History: Family History Mother Family history of elevated blood lipids Family history of emphysema Hypertension Grandparent Acute myocardial infarction Family history of malignant neoplasm of urinary bladder Father Patient's father is Dementia Sibling COPD (chronic obstructive pulmonary disease) Other Anxiety Depression Family history of chronic obstructive pulmonary disease Skin cancer <Clarissa Ruiz PA-C - Last Filed: 01/05/22 18:20> Social History Social History: Social History Smoking packs per day: 1 Smoking cigarettes per day: 20.0 Years smoked: 4 Smoking pack-years: 4.00 Smoking status: Former smoker
[2022-01-05] MEDS: LIDOCAINE 5% PATCH 1 PATCH TRANSDERM (16:17)
[2022-01-05] MEDS: ACETAMINOPHEN 325 MG TABLET 650 MG PO (16:17)
== END 2022-01-05 16:58 | disposition home or self-care (01) ==
PROVIDERS: Emergency Provider Emergency Medicine; PCP Family Medicine
DX: S39.012A Strain of muscle, fascia and tendon of lower back, initial encounter (principal); Z87.891 Personal history of nicotine dependence; F41.9 Anxiety disorder, unspecified; I10 Essential (primary) hypertension; E78.5 Hyperlipidemia, unspecified; X58.XXXA Exposure to other specified factors, initial encounter
CPT/HCPCS: 72131; 96372; 99284; A9270; J1100

== ENCOUNTER 2022-03-31 08:21 | Emergency (ER) | payer MEDICARE, SELFPAY ==
--- NOTE | ~2022-03-31 | XR_ITS ---
Supine and upright views of the abdomen Clinical history: Abdominal pain Findings: Bowel gas pattern is nonspecific. No evidence for obstruction or free air. No abnormal mass lesion or calcification is seen. Posterior fusion hardware noted from L4 to L5.. Impression: Nonspecific bowel gas pattern. Posterior fusion hardware from L4 to L5. Reviewed, dictated and finalized at [facility]. [employer] Impression: Nonspecific bowel gas pattern. Posterior fusion hardware from L4 to L5.
[2022-03-31 08:37] VITALS: BP 112/74; PULSE 100; RESP 18; TEMP 36.3; O2SAT 95
--- NOTE | 2022-03-31 08:56 | ED.ABDPAIN ---
HPI - Abdominal Pain General Chief Complaint: Abdominal Pain Stated Complaint: abdominal pain Time Seen by Provider: 03/31/22 08:51 Source: patient Mode of arrival: ambulatory Limitations: no limitations History of Present Illness HPI narrative: Patient presents today initially stating she had constipation last weekend for which she took milk of magnesia, Metamucil, and Ex-Lax. She started having normal stools again yesterday. This is no longer bothering her. She is complaining of suprapubic pain that she currently rates 6/10. Denies dysuria, hematuria, or any additional urinary symptoms. Denies fever, nausea vomiting. Patient was on Cipro last month for UTI and states all of those symptoms had completely resolved after taking the antibiotics. Related Data Home Medications Medication Instructions Recorded Confirmed cholecalciferol (vitamin D3) 25 25 mcg PO DAILY 04/06/21 03/31/22 mcg (1,000 unit) capsule Lactobacills gasseri-Bifidobac 1 cap PO DAILY 04/25/21 03/31/22 bifidum,longum 1.5 billion cell capsule ([employer]) Allergies Allergy/AdvReac Type Severity Reaction Status Date / Time Sulfa (Sulfonamide AdvReac Mild Hives Verified 03/31/22 08:43 Antibiotics) sulfamethizole AdvReac Mild Hives Verified 03/31/22 08:43 sulfamethoxazole AdvReac Mild HIVES Verified 03/31/22 08:43 trimethoprim AdvReac Mild Hives Verified 03/31/22 08:43 Review of Systems Review of Systems: CONSTITUTIONAL: Denies body aches, fever, chills, or sweats. EYES: Denies visual changes, redness, or discharge. ENT: Denies rhinorrhea, congestion, sore throat, or otalgia. CARDIOVASCULAR: Denies chest pain, palpitations, or edema. RESPIRATORY: Denies cough or dyspnea. GASTROINTESTINAL: Denies nausea, vomiting, constipation, or diarrhea.+ suprapubic pain GENITOURINARY: Denies dysuria or hematuria. SKIN: Denies rash, itching, or wounds. MUSCULOSKELETAL: Denies back pain, joint pain, or myalgia. NEUROLOGIC: Denies headache, numbness, tingling, or weakness. PSYCH: Denies depression or anxiety. [facility] Past Medical History Medical History Anxiety Chronic lumbar pain History of TIA (transient ischemic attack) (~04/2021) Hyperlipidemia Hypertension Rhabdomyolysis (~04/2021) Vitamin B12 deficiency Surgical History Surgical History History of back surgery (~2019) History of cervical spinal surgery (~2015) History of melanoma excision Left shoulder History of tonsillectomy Hx of cholecystectomy (Unknown) Family History Family History Mother Family history of elevated blood lipids Family history of emphysema Hypertension Grandparent Acute myocardial infarction Family history of malignant neoplasm of urinary bladder Father Patient's father is Dementia Sibling COPD (chronic obstructive pulmonary disease) Other Anxiety Depression Family history of chronic obstructive pulmonary disease Skin cancer Social History Social History Smoking packs per day: 1 Smoking cigarettes per day: 20.0 Years smoked: 4 Smoking pack-years: 4.00 Smoking status: Former smoker Second hand tobacco smoke exposure: No Smoking end date: 04/13/80 Alcohol intake: never Substance use: never Lack of Transportation: No Lack of Food: Never True Current Housing: I Have Housing Concerned About Future Housing: No Difficulty Paying Gas/Electric Bills: No Difficulty Paying for Meds: No Currently Unemployed: No Education: High School Diploma/GED Difficulty w/ Childcare or Family Care: No Gender identity (if verbalized by the patient): Female Spiritual care concerns: No Comments At time of signature, I have reviewed and agree w
== END 2022-03-31 09:48 | disposition home or self-care (01) ==
PROVIDERS: Emergency Provider Nurse Practitioner; PCP Family Medicine
DX: K59.00 Constipation, unspecified (principal); Z87.891 Personal history of nicotine dependence; F41.9 Anxiety disorder, unspecified; E78.5 Hyperlipidemia, unspecified; I10 Essential (primary) hypertension; Z86.73 Personal history of transient ischemic attack (TIA), and cerebral infarction without residual deficits
CPT/HCPCS: 74019; 81003; 87086; 99213; G0463

== ENCOUNTER 2022-06-01 15:43 | Outpatient (CLI) | payer MEDICARE, SELFPAY ==
--- NOTE | ~2022-06-01 | MM_ITS ---
EXAMINATION: MM screening adan BI w sara HISTORY: Screening TECHNIQUE: Craniocaudal and mediolateral oblique 3-D tomosynthesis images were obtained and synthetic 2-D images were generated. CAD analysis was submitted and interpreted. COMPARISON: Comparison to multiple prior studies sequentially, with oldest reviewed study dated 08/30. BREAST PARENCHYMAL COMPOSITION: There are scattered areas of fibroglandular density. FINDINGS: There is no evidence of suspicious mass, calcification, or architectural distortion to sugg est malignancy in either breast. There has been no suspicious interval change. IMPRESSION: 1. No mammographic evidence of malignancy. 2. Recommend routine screening mammography in one year. 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
== END 2022-06-01 15:44 | disposition home or self-care (01) ==
LOC: ANHIMG 15:44
PROVIDERS: PCP Family Medicine; Visit Provider Nurse Practitioner
DX: Z12.31 Encounter for screening mammogram for malignant neoplasm of breast (principal)
CPT/HCPCS: 77063; 77067

== ENCOUNTER 2023-08-02 08:39 | Emergency (ER) | payer OTHER, SELFPAY ==
[2023-08-02 08:51] VITALS: BP 118/87; PULSE 80; RESP 16; TEMP 36.1; O2SAT 97
--- NOTE | 2023-08-02 09:12 | ED.URI ---
HPI - URI/Sore Throat General Chief Complaint: Upper Respiratory Infection Stated Complaint: Cough and Chest Congestion Time Seen by Provider: 08/02/23 09:05 Source: patient and RN notes reviewed Mode of arrival: ambulatory Limitations: no limitations History of Present Illness HPI Narrative: Patient presents today with a 2 week history of headache, sinus pressure, nasal congestion, postnasal drip, productive cough. Denies shortness of breath or fever. She has tried Maryjane and Advil cold and Sinus without relief. She has also taken ibuprofen, which does help with her headache. Related Data Home Medications Medication Instructions Recorded Confirmed cholecalciferol (vitamin D3) 25 25 mcg PO DAILY 04/06/21 01/26/23 mcg (1,000 unit) capsule Lactobacills gasseri-Bifidobac 1 cap PO DAILY 04/25/21 01/26/23 bifidum,longum 1.5 billion cell capsule ([employer]) aspirin 81 mg tablet,delayed 81 mg PO DAILY 01/26/23 01/26/23 release (Adult Aspirin Regimen) vit C 250 mg-vit E 90 mg-zinc 40 1 tablet PO DAILY 01/26/23 01/26/23 mg-copper 1 [id number]-wjixta capsule ([employer] AREDS-2) Allergies Allergy/AdvReac Type Severity Reaction Status Date / Time Sulfa (Sulfonamide AdvReac Mild Hives Verified 01/26/23 10:22 Antibiotics) sulfamethizole AdvReac Mild Hives Verified 01/26/23 10:22 sulfamethoxazole AdvReac Mild HIVES Verified 01/26/23 10:22 trimethoprim AdvReac Mild Hives Verified 01/26/23 10:22 Review of Systems Review of Systems: CONSTITUTIONAL: Denies body aches, fever, chills, or sweats. EYES: Denies visual changes, redness, or discharge. ENT: Denies rhinorrhea, sore throat, or otalgia.+ congestion, sinus pressure, postnasal drip CARDIOVASCULAR: Denies chest pain, palpitations, or edema. RESPIRATORY: Denies dyspnea.+ cough GASTROINTESTINAL: Denies abdominal pain, nausea, vomiting, or diarrhea. GENITOURINARY: Denies dysuria or hematuria. SKIN: Denies rash, itching, or wounds. MUSCULOSKELETAL: Denies back pain, joint pain, or myalgia. NEUROLOGIC: Denies numbness, tingling, or weakness.+ headache PSYCH: Denies depression or anxiety. [facility] Past Medical History Medical History Anxiety Chronic lumbar pain COVID (~08/2021) History of TIA (transient ischemic attack) (~04/2021) Hyperlipidemia Hypertension Lumbar spondylosis Rhabdomyolysis (~04/2021) Vitamin B12 deficiency Surgical History Surgical History History of back surgery (~2018) History of cervical spinal surgery (~2014) History of melanoma excision Left shoulder History of tonsillectomy (~1964) Hx of cholecystectomy (Unknown) Family History Family History Mother Family history of elevated blood lipids Family history of emphysema Hypertension Grandparent Acute myocardial infarction Family history of malignant neoplasm of urinary bladder Father Patient's father is Dementia Sibling COPD (chronic obstructive pulmonary disease) Other Anxiety Depression Family history of chronic obstructive pulmonary disease Skin cancer Social History Social History Smoking packs per day: 1 Smoking cigarettes per day: 20.0 Years smoked: 4 Smoking pack-years: 4.00 Smoking status: Former smoker Second hand tobacco smoke exposure: No Smoking end date: 03/13/82 Alcohol intake: never Substance use: never Lack of Transportation: No Lack of Food: Never True Current Housing: I Have Housing Concerned About Future Housing: No Difficulty Paying Gas/Electric Bills: No Difficulty Paying for Meds: No Currently Unemployed: No Education: High School Diploma/GED Difficulty w/ Childcare or Family Care: No Living arrangements: a
== END 2023-08-02 09:26 | disposition home or self-care (01) ==
PROVIDERS: Emergency Provider Nurse Practitioner; PCP Family Medicine
DX: J01.90 Acute sinusitis, unspecified (principal); Z87.891 Personal history of nicotine dependence; E78.5 Hyperlipidemia, unspecified; I10 Essential (primary) hypertension; Z79.82 Long term (current) use of aspirin; Z85.820 Personal history of malignant melanoma of skin; Z86.73 Personal history of transient ischemic attack (TIA), and cerebral infarction without residual deficits; Z86.16 Personal history of COVID-19
CPT/HCPCS: 99213; G0463

== ENCOUNTER 2023-11-29 07:05 | Outpatient (CLI) | payer OTHER, MEDICAID, SELFPAY ==
--- NOTE | ~2023-11-29 | DEXA_ITS ---
Bone Density Report Name: SAMAN RAY Age: 63 Sex: Female Ethnicity: White Date of : 1960 Indication: osteopenia; height loss; cancer; Referring Provider: PERICO, ELIZABETH Study: Bone densitometry was performed. Exam Date: November 29, 2023 Accession number: [id number] Bone Density: Region BMD T-score Z-score Classification AP Spine(L1, L2, L3) 0.798 -2.0 -0.2 Osteopenia Femoral Neck (Left) 0.732 -1.1 0.5 Osteopenia Total Hip (Left) 0.880 -0.5 0.8 Normal Femoral Neck (Right) 0.827 -0.2 1.4 Normal Total Hip (Right) 0.902 -0.3 0.9 Normal Total Hip Mean 0.891 -0.4 0.9 Normal World Health Organization criteria for BMD impression classify patients as: Normal (T-score at or above -1.0), Osteopenia (T-score between -1.0 and -2.5), or Osteoporosis (T-score at or below -2.5). 10-year Fracture Risk(1): Major Osteoporotic Fracture 8.1% Hip Fracture 0.6% Reported Risk Factors: [place] (), Neck BMD=0.732, BMI=29.7 (1) FRAX(R) Version 3.08. Fracture probability calculated for an untreated patient. Fracture probability may be lower if the patient has received treatment. Previous Exams: Region Exam Age BMD T-score BMD Change BMD Change Date g/cm2 vs Baseline vs Previous AP Spine (L1-L3) 11/29/2023 63 0.798 -2.0 -0.116 (-12.7% -0.056 (-6.6%) 08/24/2021 61 0.854 -1.5 -0.060 (-6.6%) -0.031 (-3.5%) 10/01/2018 58 0.884 -1.2 -0.029 (-3.2%) -0.021 (-2.3%) 08/31/2015 55 0.905 -1.0 -0.009 (-1.0%) -0.009 (-1.0%) 06/17/2011 51 0.914 -0.9 Total Hip(Left) 11/29/2023 63 0.880 -0.5 -0.161 (-15.4% -0.018 (-2.0%) 08/24/2021 61 0.898 -0.4 -0.143 (-13.7% -0.026 (-2.8%) 10/01/2018 58 0.924 -0.1 -0.117 (-11.2% -0.057 (-5.8%) 08/31/2015 55 0.980 0.3 -0.060 (-5.8%) -0.060 (-5.8%) 06/17/2011 51 1.041 0.8 Total Hip(Right) 11/29/2023 63 0.902 -0.3 -0.141 (-13.5% 0.001 (0.1%) 08/24/2021 61 0.901 -0.3 -0.142 (-13.6% -0.066 (-6.8%) 10/01/2018 58 0.967 0.2 -0.076 (-7.3%) -0.017 (-1.7%) 08/31/2015 55 0.984 0.3 -0.059 (-5.7%) -0.059 (-5.7%) 06/17/2011 51 1.043 0.8 *Denotes significance at 95% confidence level, LSC for AP Spine = 0.022 g/cm2, LSC for Total Hip = 0.027 g/cm2 # Denotes dissimilar scan types or analysis methods Clinical Information Provided by Patient: Has used the following medications: Vitamin D Has the following medical conditions: Cancer Patient maximum height was 59 Menopause A
--- NOTE | ~2023-11-29 | MM_ITS ---
EXAMINATION: MM screening adan BI w sara HISTORY: Screening mammogram, family history of breast cancer in her sister. TECHNIQUE: Craniocaudal and mediolateral oblique 3-D tomosynthesis images were obtained and synthetic 2-D images were generated. CAD analysis was submitted and interpreted. COMPARISON: 06/01/2022, 05/18/2021, 10/21/2019, 10/01/2018 BREAST PARENCHYMAL COMPOSITION:Not Dense. There are scattered areas of fibroglandular density. FINDINGS: No suspicious mass, calcification, or architectural distortion are identified in either michelle ast to suggest malignancy. There has been no suspicious interval change. IMPRESSION: No mammographic evidence of malignancy. Recommend routine screening mammography in one year. BI-RADS Category 1: Negative Reviewed, dictated and finalized at location .
== END 2023-11-29 07:06 | disposition home or self-care (01) ==
LOC: ANHIMG 07:07
PROVIDERS: PCP Family Medicine; Visit Provider Nurse Practitioner
DX: Z12.31 Encounter for screening mammogram for malignant neoplasm of breast (principal); Z78.0 Asymptomatic menopausal state; M85.88 Other specified disorders of bone density and structure, other site; M85.852 Other specified disorders of bone density and structure, left thigh
CPT/HCPCS: 77063; 77067; 77080

== ENCOUNTER 2024-02-07 06:58 | Emergency (ER) | payer OTHER, MEDICAID, SELFPAY ==
--- NOTE | ~2024-02-07 | CT_ITS ---
EXAMINATION: CT abdomen pelvis w con DATE: 02/07/2024 07:57 INDICATION: Constipation. TECHNIQUE: Computed tomography (CT) of the abdomen and pelvis was performed with 100 mL Omnipaque 350 intravenous contrast. Automated exposure control and iterative reconstruction technique were employe d. The dose-length product was 331.10 mGy-cm. COMPARISON: CT abdomen and pelvis 04/21/2013 FINDINGS: The visualized portions of the lung bases demonstrate mild atelectasis. No pleural effusion . The heart size is normal. No pericardial effusion. The gallbladder is absent. There is mild intrahe patic biliary duct dilatation, and the common duct is dilated to 12 mm, likely not clinically signifi cant given the normal liver function tests. The pancreas, spleen, adrenal glands, and kidneys are nor mal. Stool distends the sigmoid colon. There is wall thickening of the sigmoid colon. The appendix is not visualized. There is trace ascites. There are no pathologically enlarged lymph nodes. There is a 1.5 cm fibroid in the uterus. There are changes of posterior fusion procedure at L3-L4. There is a h emangioma in T6 vertebral body. There is mild thoracic and lumbar spondylosis. IMPRESSION: 1. Wall thickening of the sigmoid colon, consistent with colitis. Stool distends the sigmoid colon, w hich may be secondary to stool impaction or distal stricture. Reviewed, dictated and finalized at location A. L MACHINE OPERATOR IMPRESSION: 1. Wall thickening of the sigmoid colon, consistent with colitis. Stool distend s the sigmoid colon, which may be secondary to stool impaction or distal strict ure.
[2024-02-07 07:19] VITALS: BP 142/94; PULSE 90; RESP 16; O2SAT 98
[2024-02-07 07:30] VITALS: BP 127/89; PULSE 83; RESP 20; O2SAT 96
[2024-02-07] MEDS: diazePAM INJ (*CRX) 10 MG/2 ML SYRINGE 5 MG IV PUSH (07:44)
[2024-02-07] MEDS: SODIUM CHLORIDE 0.9% IV 1,000 ML 999 ML IV CONT (07:44)
[2024-02-07 07:52] LABS: Basophils Absolute Auto 0.1 K/mm3 (0.0-0.1); Basophils Percent Auto 0.6 % (0.2-1.2); Eosinophils Absolute Auto 0.1 K/mm3 (0-0.3); Eosinophils Percent Auto 0.6 % (0-4.4); Hematocrit 39.8 % (37.0-47.0); Hemoglobin 13.1 g/dL (12.0-15.0); Immature Granulocyte Absolute 0.06 K/mm3 (0.00-0.031); Immature Granulocyte Percent A 0.5 % (0-0.5); Lymphocytes Absolute Auto 0.81 K/mm3 (0.9-3.2); Lymphocytes Percent Auto 6.4 % (18.3-44.2); Mean Corpuscular HGB Conc 32.9 g/dl (32-36); Mean Platelet Volume 9.5 fl (7.4-10.4); Monocytes Absolute Auto 0.8 K/mm3 (0.1-0.6); Neutrophils Absolute Auto 10.8 K/mm3 (1.3-6.7); Neutrophils Percent Auto 85.9 % (45.5-73.1); Platelet Count Result 345 k/mm3 (150-375); Red Blood Count 4.68 M/mm3 (4.2-5.4); Red Cell Distribution Width 13.2 % (11.5-14.5); White Blood Count 12.6 K/mm3 (4.5-10.0)
--- NOTE | 2024-02-07 07:52 | ED.GENADULT ---
HPI - General Adult General Chief complaint: Unspecified Stated complaint: constipation for 2 days Time Seen by Provider: 02/07/24 07:16 History of Present Illness HPI narrative: This is a 64-year-old female presenting ED with chief complaint of constipation. Patient says that 2 days ago she started felt pressure in her lower abdomen. She felt like she was constipated she has taken suppositories, stool softeners and laxatives. She is still having abdominal discomfort. She denies fevers chills chest pain difficulty breathing. She is still passing gas. patient is concerned because several years ago she became very constipated requiring admission. Related Data Home Medications Medication Instructions Recorded Confirmed cholecalciferol (vitamin D3) 25 25 mcg PO DAILY 04/06/21 11/30/23 mcg (1,000 unit) capsule Lactobacills gasseri-Bifidobac 1 cap PO DAILY 04/25/21 11/30/23 bifidum,longum 1.5 billion cell capsule ([employer]) Allergies Allergy/AdvReac Type Severity Reaction Status Date / Time Sulfa (Sulfonamide AdvReac Mild Hives Verified 02/07/24 06:59 Antibiotics) sulfamethizole AdvReac Mild Hives Verified 02/07/24 06:59 sulfamethoxazole AdvReac Mild HIVES Verified 02/07/24 06:59 trimethoprim AdvReac Mild Hives Verified 02/07/24 06:59 PMFSH Past Medical History Medical History Anxiety Chronic lumbar pain COVID (~08/2021) History of TIA (transient ischemic attack) (~04/2021) Hyperlipidemia Hypertension Lumbar spondylosis Rhabdomyolysis (~04/2021) Vitamin B12 deficiency Surgical History Surgical History History of back surgery (~2018) History of cervical spinal surgery (~2014) History of melanoma excision Left shoulder History of tonsillectomy (~1965) Hx of cholecystectomy (Unknown) Family History Family History Mother Family history of elevated blood lipids Family history of emphysema Hypertension Grandparent Acute myocardial infarction Family history of malignant neoplasm of urinary bladder Father Patient's father is Dementia Sibling COPD (chronic obstructive pulmonary disease) Other Anxiety Depression Family history of chronic obstructive pulmonary disease Skin cancer Social History Social History Smoking packs per day: 1 Smoking cigarettes per day: 20.0 Years smoked: 4 Smoking pack-years: 4.00 Smoking status: Former smoker (quit @ 14, smoked for 4 years) Second hand tobacco smoke exposure: No Smoking end date: 03/13/82 Alcohol intake: never Substance use: never Lack of Transportation: No Lack of Food: Never True Current Housing: I Have Housing Concerned About Future Housing: No Difficulty Paying Gas/Electric Bills: No Difficulty Paying for Meds: No Currently Unemployed: No Education: High School Diploma/GED Difficulty w/ Childcare or Family Care: No Living arrangements: alone Gender identity (if verbalized by the patient): Female Spiritual care concerns: No Exam Narrative: APPEARANCE: No apparent distress. Head: atraumatic. EYES: EOMI, NOSE: Atraumatic NECK: Trachea midline RESPIRATORY: No increased rate of breathing, CT AB CARDIOVASCULAR: RRR, ABDOMINAL: mild tenderness in the left lower quadrant, no guarding rebound MUSCULOSKELETAl: No obvious deformities NEURO: Alert. Moving 4/4 extremities SKIN:: Warm, dry. Normal color PSYCHIATRIC: anxious Course Vital Signs Vital signs: Vital Signs Pulse Rate 90 02/07/24 07:19 Respiratory Rate 16 02/07/24 07:19 Blood Pressure 142/94 H 02/07/24 07:19 Pulse Oximetry 98 02/07/24 07:19 Pulse Rate 85 02/07/24 08:15 Respiratory Rate 20 02/07/24 08:15 Blood Pressure 133/89 02/07/24 08:15 Pulse Oximetry 98 02/07/24 08:15 Medical Decision Making [facility] Narrative Medical decision making narrative: -Course: This is a 64-year-old female presenting with lower abdominal pain and inability to have a bowel movement. CT abdomen pelvis showed some inflammation of the colon with backup of stool behind it. Interpretation is colitis versus colon stricture. Colitis fits with the clinical picture. patient was given pain medication nausea medication is feeling much better. Her abdominal exam is still benign. She is tolerating p.o.. Discussed admission versus discharge with the patient and she would like to go home and see if her symptoms improve. She is comfortable coming back to the ED if she develops fevers severe pain bloody diarrhea or stops passing gas. Patient will be discharged with pain medication and is instructed to continue using stool softeners. -DDX includes but is not limited to: Constipation, colitis, enterocolitis colon stricture, diverticulitis -Co-morbidities complicating care: anxiety, hypertension, high cholesterol -Independent interpretation of studies: labs imaging reviewed -Shared decision making / Disposition: discharged. -RX Motrin, Tylenol, zofran Vital Signs Vital Signs: Vital Signs Pulse Rate 90 02/07/24 07:19 Respiratory Rate 16 02/07/24 07:19 Blood Pressure 142/94 H 02/07/24 07:19 Pulse Oximetry 98 02/07/24 07:19 Pulse Rate 85 02/07/24 08:15 Respiratory Rate 20 02/07/24 08:15 Blood Pressure 133/89 02/07/24 08:15 Pulse Oximetry 98 02/07/24 08:15 Lab Data 02/07/24 07:45 02/07/24 07:51 Labs: Lab Results 02/07/24 02/07/24 Range/Units 07:45 07:51 WBC 12.6 H (4.5-10.0) K/mm3 RBC 4.68 (4.2-5.4) M/mm3 Hgb 13.1 (12.0-15.0) g/dL Hct 39.8 (37.0-47.0) % MCV 85.0 (80-100) fl MCH 28.0 (26-34) pg MCHC 32.9 (32-36) g/dl RDW 13.2 (11.5-14.5) % Plt Count 345 (150-375) k/mm3 MPV 9.5 (7.4-10.4) fl Immature Gran % (Auto) 0.5 (0-0.5) % Neut % (Auto) 85.9 H (45.5-73.1) % Lymph % (Auto) 6.4 L (18.3-44.2) % [place] % (Auto) 6.0 (2.6-8.5) % Eos % (Auto) 0.6 (0-4.4) % Baso % (Auto) 0.6 (0.2-1.2) % Lymph # (Auto) 0.81 L (0.9-3.2) K/mm3 [place] # (Auto) 0.8 H (0.1-0.6) K/mm3 Eos # (Auto) 0.1 (0-0.3) K/mm3 Baso # (Auto) 0.1 (0.0-0.1) K/mm3 Abs Immat Gran (auto) 0.06 H (0.00-0.031) K/mm3 Absolute Neuts (auto) 10.8 H (1.3-6.7) K/mm3 Absolute Nucleated RBC 0.000 (0.0-0.012) K/mm3 Nucleated RBC % 0.0 (0.0-0.2) % Sodium 131 L (137-145) mmol/L Potassium 3.8 (3.4-5.0) mmol/L Chloride 99 (98-107) mmol/L Carbon Dioxide 25 (22-30) mmol/L Anion Gap 7 (4-12) mmol/L BUN 7 (7-17) mg/dL Creatinine 0.80 0.90 (0.7-1.0) mg/dL Estim Creat Clear Calc Not Reportable Not Reportable Estimated GFR > 60 > 60 (59 - ) Glucose 138 H (65-110) mg/dL Calcium 9.4 (8.4-10.2) mg/dL Total Bilirubin 0.9 (0.2-1.3) mg/dL AST 20 (14-36) U/L ALT 17 (6-35) U/L Alkaline Phosphatase 56 (38-126) U/L Total Protein 7.0 (6.3-8.2) g/dL Albumin 4.2 (3.5-5.1) g/dL Lipase 143 (23-300) U/L Discharge Plan Discharge Clinical Impression: Colitis Patient Disposition: Home, Self-Care Condition: Stable Instructions: Antibiotic Form, Colitis (ED) Additional Instructions: You were seen emergency department for colitis. Please use Motrin Tylenol for abdominal pain. Use Zofran for nausea. Please follow-up with your primary care physician in the GI doctor next week. If you develop fevers, severe abdominal pain, bloody diarrhea her intractable nausea vomiting please return emergency department immediately. Prescriptions: New acetaminophen 500 mg tablet 1,000 mg PO TID PRN (Reason: anthony) 7 Days Qty: 42 0RF ibuprofen 800 mg tablet 800 mg PO TID PRN (Reason: pain) 7 Days Qty: 21 0RF ondansetron 4 mg tablet,disintegrating 4 mg PO Q8H PRN (Reason: nausea and vomiting) Qty: 30 0RF No Action citalopram 10 mg tablet 10 mg PO DAILY Qty: 90 0RF cholecalciferol (vitamin D3) 25 mcg (1,000 unit) capsule 25 mcg PO DAILY [employer] 1.5 billion cell Capsule 1 cap PO DAILY cyanocobalamin (vitamin B-12) 1,000 mcg tablet, sublingual 1,000 mcg sublingual DAILY Qty: 90 2RF losartan 50 mg tablet 50 mg PO DAILY Qty: 90 1RF atorvastatin 20 mg tablet 20 mg PO QHS Qty: 90 1RF lorazepam 1 mg tablet 1 mg PO BID PRN (Reason: Anxiety) Qty: 90 0RF Follow-up/Referrals: Ari Jordan MD [Primary Care Provider] -
[2024-02-07 07:53] LABS: Estimated Glomerular Filt Rate > 60
[2024-02-07 08:05] LABS: Alanine Aminotransferase 17 U/L (6-35); Albumin Level 4.2 g/dL (3.5-5.1); Alkaline Phosphatase 56 U/L (38-126); Anion Gap 7 mmol/L (4-12); Aspartate Amino Transferase 20 U/L (14-36); Bilirubin,Total 0.9 mg/dL (0.2-1.3); Blood Urea Nitrogen 7 mg/dL (7-17); Calcium 9.4 mg/dL (8.4-10.2); Carbon Dioxide 25 mmol/L (22-30); Chloride 99 mmol/L (98-107); Estimated Glomerular Filt Rate > 60; Glucose 138 mg/dL (65-110); Lipase 143 U/L (23-300); Potassium 3.8 mmol/L (3.4-5.0); Sodium 131 mmol/L (137-145)
[2024-02-07 08:15] VITALS: BP 133/89; PULSE 85; RESP 20; O2SAT 98
[2024-02-07] MEDS: KETOROLAC 15 MG/ML VIAL (*BKC) IV PUSH (09:46)
[2024-02-07] MEDS: ACETAMINOPHEN 500 MG TABLET 1000 MG PO (09:46)
[2024-02-07] MEDS: MORPHINE SULFATE (*CRX) 4 MG/ML INJ IV PUSH (09:46)
[2024-02-07 10:33] VITALS: BP 132/79; PULSE 75; RESP 18; O2SAT 97
== END 2024-02-07 11:08 | disposition home or self-care (01) ==
PROVIDERS: Emergency Provider Emergency Medicine; PCP Family Medicine
DX: K52.9 Noninfective gastroenteritis and colitis, unspecified (principal); I10 Essential (primary) hypertension; E53.8 Deficiency of other specified B group vitamins; E78.5 Hyperlipidemia, unspecified; F41.9 Anxiety disorder, unspecified; Z86.16 Personal history of COVID-19; Z86.73 Personal history of transient ischemic attack (TIA), and cerebral infarction without residual deficits; Z85.820 Personal history of malignant melanoma of skin; Z87.891 Personal history of nicotine dependence; Z90.49 Acquired absence of other specified parts of digestive tract; Z79.899 Other long term (current) drug therapy
CPT/HCPCS: 36415; 74177; 80053; 83690; 85025; 96361; 96374; 96375; 99284; A9270; J1885; J2270; J3360; J7030; Q9967

== ENCOUNTER 2024-04-12 16:29 | Emergency (ER) | payer MEDICARE, MEDICAID, SELFPAY ==
--- NOTE | ~2024-04-12 | US_ITS ---
EXAMINATION:US venous doppler UE LT INDICATION:Left arm pain TECHNIQUE: Multiple grayscale, color flow and Doppler images of the left upper extremity deep venous systems were obtained and reviewed. COMPARISON:03/28/2024 FINDINGS: The left jugular, subclavian, axillary, brachial, basilic, cephalic, radial and ulnar veins demonstrate normal respiratory variation, augmentation and compressibility. Color flow is also seen within the left jugular, subclavian, axillary, brachial, basilic, cephalic an d radial veins. IMPRESSION: No left upper extremity deep venous thrombosis. Reviewed, dictated and finalized at location A. ICAL INFORMATICS SPEC
--- NOTE | ~2024-04-12 | XR_ITS ---
EXAMINATION: XR shoulder LT min 2V DATE: 04/12/2024 17:31 INDICATION: Left shoulder pain. TECHNIQUE: 4 views of left shoulder were obtained. COMPARISON: None. FINDINGS: Alignment is normal. No fracture. Glenohumeral joint is normal. There is moderate acromiocl avicular joint osteoarthritis. There are changes of anterior fusion procedure in cervical spine. IMPRESSION: 1. Moderate left acromioclavicular joint osteoarthritis. Reviewed, dictated and finalized at location A. YTICAL TECHNICIAN
--- NOTE | 2024-04-12 16:30 | ECG_ITS ---
Test Date: 2024-04-12 16:43:01 Measurements Intervals [place] Rate: 91 P: 36 [place]: 120 QRS: -8 QRSD: 83 T: 67 QT: 328 QTc: 405 Interpretive Statements SINUS RHYTHM LEFT VENTRICULAR HYPERTROPHY WITH ST-T CHANGE BASELINE ARTIFACT- I, II, III, AVR, AVL, AVF, V1-V6 BORDERLINE ECG No previous ECG available for comparison Electronically Signed On 04-13-2024 10:16:07 SOCIAL SERVICE DIRECTOR by John Jason D.O.
[2024-04-12 16:31] VITALS: BP 144/85; PULSE 100; RESP 16; TEMP 36.6; O2SAT 100
--- OUTSIDE RECORDS SUMMARY | 2024-04-12 16:31 | XMS_ITS | Clinical Summary ---
Author Organization [facility] Address [address] [place] [address]. [place], [place] [address] [place] [address] Care Team Providers Care Guide Foreign Tour Name Role Phone Gill Cisneros NP Primary Care Provider [phone] Social History Tobacco Use Types Packs/Day Years Used Date Smoking Tobacco: Never Assessed Comments Unknown Sex and Gender Information Value Date Recorded Sex Assigned at Not on file Legal Sex Female 6:50 PM CDT Gender Identity Not on file Sexual Orientation Not on file Plan of Treatment Health Maintenance Due Date Last Done Comments Colorectal Cancer Screening Colonoscopy (10 Years) 1958 Hepatitis C 02/01/1976 DTaP, Tdap and Td Vaccines ( 1 - Tdap) 1977 Mammogram Screening 1998 Zoster Vaccines (1 of 2) 02/01/2008 Annual Medicare Wellness Visit 2023 Dexa Scan (General) 2023 Pneumococcal Vaccine: 65+ Ye ars (1 of 1 - PCV) 2023 COVID-19 Vaccine ( - 2023-2 5 season) 2023 Influenza Adult (#1) 2023 RSV Immunization or 60+ Years (1 - 1-dose 75+ series) 2033 Meningococcal B Vaccine Aged Out No l onger eligible based on patient's age to complete this topic Meningococcal Vaccine Aged Out No terrie christina eligible based on patient's age to complete this topic RSV Immunizations Under 20 Months Aged Out No longer eligible based on patient's age to complete this topic Additional Health Concerns Infection Onset Date Last Indicated C. difficile 04/02/2018 04/02/2018 Insurance ESSENCE Care Teams Guide Foreign Tour Relationship Specialty Start Date End Date Gill [place] [address] PCP - General NURSE PRACTITIONER 02/01/21
--- NOTE | 2024-04-12 16:41 | ED_ITS ---
HPI - Extremity Injury (Upper) General Chief Complaint: Extremity Injury, Upper Stated Complaint: left shoulder pain onset 2 hours ago no injury Time Seen by Provider: 04/12/24 16:41 Focused HPI: This is a 64 year old female that presents to the ER for left shoulder/arm pain. Ongoing over the last couple of hours. No recent injuries or trauma. No alleviating or exacerbating factors. Reports history of blood clots. GENERAL: Well-appearing, well-nourished, and in no acute distress. HEAD: Normocephalic, atraumatic. CHEST: Clear to auscultation. ?No respiratory distress. HEART: Regular rate and rhythm.? NEURO: ?Alert and oriented x3. Patient screened in triage and initial orders placed.? ?Additional care and disposition to be based upon?diagnostic testing and treatment. Related Data Home Medications ?Medication ?Instructions ?Recorded ?Confirmed ?Last Taken ?Type cholecalciferol (vitamin D3) 25 25 mcg PO DAILY 04/06/21 04/08/24 04/24/21 History mcg (1,000 unit) capsule Lactobacills gasseri-Bifidobac 1 cap PO DAILY 04/25/21 04/08/24 Unknown History bifidum,longum 1.5 billion cell capsule (coComment) losartan 50 mg tablet 50 mg PO DAILY 04/08/24 04/08/24 Unknown History Allergies Allergy/AdvReac Type Severity Reaction Status Date / Time Sulfa (Sulfonamide AdvReac Mild Hives Verified 04/08/24 10:30 Antibiotics) sulfamethizole AdvReac Mild Hives Verified 04/08/24 10:30 sulfamethoxazole AdvReac Mild HIVES Verified 04/08/24 10:30 trimethoprim AdvReac Mild Hives Verified 04/08/24 10:30 PMFSH Past Medical History Medical History Iron deficiency anemia Diverticulitis large intestine (~03/27/24) C. difficile diarrhea (~04/01/24) Melanoma s/p excision Heart murmur Vitamin B12 deficiency Lumbar spondylosis COVID (~08/2021) History of TIA (transient ischemic attack) (~04/2021) Rhabdomyolysis (~04/2021) Anxiety Chronic lumbar pain Hyperlipidemia Hypertension Surgical History Surgical History History of appendectomy History of tonsillectomy (~1965) History of melanoma excision Left shoulder History of cervical spinal surgery (~2014) History of back surgery (~2019) Hx of cholecystectomy (Unknown) Family History Family History Mother Family history of elevated blood lipids Family history of emphysema Hypertension Grandparent Acute myocardial infarction Family history of malignant neoplasm of urinary bladder Father Patient's father is Dementia Sibling COPD (chronic obstructive pulmonary disease) Other Anxiety Depression Family history of chronic obstructive pulmonary disease Skin cancer Social History Social History Smoking packs per day: 1 Smoking cigarettes per day: 20.0 Years smoked: 3 Smoking pack-years: 3.00 Smoking status: Former smoker Tobacco type: cigarettes Second hand tobacco smoke exposure: No Smoking end date: 03/13/82 Alcohol intake: former Substance use: never Do You Feel Safe in your Home?: Yes Lack of Transportation: No Lack of Food: Never True Current Housing: I Have Housing Concerned About Future Housing: No Difficulty Paying Gas/Electric Bills: No Difficulty Paying for Meds: No Currently Unemployed: No Education: High School Diploma/GED Difficulty w/ Childcare or Family Care: No Living arrangements: alone Gender identity (if verbalized by the patient): Female Spiritual care concerns: No Course Vital Signs Vital signs: Vital Signs Temperature 97.9 F 04/12/24 16:31 Pulse Rate 100 04/12/24 16:31 Respiratory Rate 16 04/12/24 16:31 Blood Pressure 144/85 H 04/12/24 16:31 Pulse Oximetry 100 04/12/24 16:31 Oxygen Delivery Room Air 04/12/24 16:31 Temperature 97.9 F 04/12/24 16:31 Pulse Rate 100 04/12/24 16:31 Respiratory Rate 16 04/12/24 16:31 Blood Pressure 144/85 H 04/12/24 16:31 Pulse Oximetry 100 04/12/24 16:31 Oxygen Delivery Room Air 04/12/24 16:31 MDM - Extremity Injury (Upper) MDM Narrative Medical decision making narrative: Patient left after medical screening exam and initial workup and before any further evaluation or management Lab Data 04/12/24 18:48 04/12/24 18:48 Labs: Lab Results 04/12/24 04/12/24 Range/Units 18:48 18:48 WBC 6.9 (4.5-10.0) K/mm3 RBC 4.12 L (4.2-5.4) M/mm3 Hgb 10.7 L (12.0-15.0) g/dL Hct 34.5 L (37.0-47.0) % MCV 83.7 (80-100) fl MCH 26.0 (26-34) pg MCHC 31.0 L (32-36) g/dl RDW 19.0 H (11.5-14.5) % Plt Count 584 H (150-375) k/mm3 MPV 9.0 (7.4-10.4) fl Immature Gran % (Auto) 0.3 (0-0.5) % Neut % (Auto) 50.6 (45.5-73.1) % Lymph % (Auto) 34.0 (18.3-44.2) % Barnes % (Auto) 8.9 H (2.6-8.5) % Eos % (Auto) 4.2 (0-4.4) % Baso % (Auto) 2.0 H (0.2-1.2) % Lymph # (Auto) 2.34 (0.9-3.2) K/mm3 Barnes # (Auto) 0.6 (0.1-0.6) K/mm3 Eos # (Auto) 0.3 (0-0.3) K/mm3 Baso # (Auto) 0.1 (0.0-0.1) K/mm3 Abs Immat Gran (auto) 0.02 (0.00-0.031) K/mm3 Absolute Neuts (auto) 3.5 (1.3-6.7) K/mm3 Absolute Nucleated RBC 0.000 (0.0-0.012) K/mm3 Nucleated RBC % 0.0 (0.0-0.2) % PT 14.9 H (11.1-14.7) Seconds INR 1.1 APTT 37.3 H (22.3-36.8) Seconds Sodium 136 L (137-145) mmol/L Potassium 4.6 (3.4-5.0) mmol/L Chloride 100 (98-107) mmol/L Carbon Dioxide 26 (22-30) mmol/L Anion Gap 10 (4-12) mmol/L BUN 13 D (7-17) mg/dL Creatinine 0.89 (0.7-1.0) mg/dL Estim Creat Clear Calc Not Reportable Estimated GFR > 60 (59 - ) Glucose 107 (65-110) mg/dL Calcium 9.9 (8.4-10.2) mg/dL Total Bilirubin 0.5 (0.2-1.3) mg/dL AST 51 H (14-36) U/L ALT 29 (6-35) U/L Alkaline Phosphatase 162 H (38-126) U/L Troponin I < 0.012 Cancelled (0.000-0.034) ng/mL Total Protein 8.0 (6.3-8.2) g/dL Albumin 3.8 (3.5-5.1) g/dL Imaging Data Radiologist's impression: ITS Impressions Shoulder X-Ray 04/12/24 17:31 IMPRESSION: 1. Moderate left acromioclavicular joint osteoarthritis. Venous Doppler Study 04/12/24 18:10 IMPRESSION: No left upper extremity deep venous thrombosis. Discharge Plan Discharge Clinical Impression: Acute pain of left shoulder Patient Disposition: Elopement After Seen by Prov Condition: Stable Patient Language: Polish Prescriptions: No Action losartan 50 mg tablet 50 mg PO DAILY ferrous sulfate 325 mg (65 mg iron) tablet,delayed release (DR/EC) 325 mg PO BID Qty: 180 0RF cholecalciferol (vitamin D3) 25 mcg (1,000 unit) capsule 25 mcg PO DAILY coComment 1.5 billion cell Capsule 1 cap PO DAILY vancomycin 125 mg Capsule 125 mg PO Q6HR 9 Days Qty: 36 0RF Eliquis 5 mg Tablet 5 mg PO Q12HR 30 Days Qty: 60 1RF cyanocobalamin (vitamin B-12) 1,000 mcg tablet, sublingual 1,000 mcg sublingual DAILY Qty: 90 2RF atorvastatin 20 mg tablet 20 mg PO QHS Qty: 90 1RF citalopram 10 mg tablet 10 mg PO DAILY Qty: 90 1RF Patient Comments: Patient takes HS lorazepam 1 mg tablet 1 mg PO BID PRN (Reason: Anxiety) Qty: 90 1RF Follow-up/Referrals: Ari Jordan MD [Primary Care Provider] -
[2024-04-12 18:55] LABS: Basophils Absolute Auto 0.1 K/mm3 (0.0-0.1); Eosinophils Absolute Auto 0.3 K/mm3 (0-0.3); Eosinophils Percent Auto 4.2 % (0-4.4); Hematocrit 34.5 % (37.0-47.0); Hemoglobin 10.7 g/dL (12.0-15.0); Immature Granulocyte Absolute 0.02 K/mm3 (0.00-0.031); Immature Granulocyte Percent A 0.3 % (0-0.5); Lymphocytes Absolute Auto 2.34 K/mm3 (0.9-3.2); Mean Corpuscular Volume 83.7 fl (80-100); Monocytes Absolute Auto 0.6 K/mm3 (0.1-0.6); Monocytes Percent Auto 8.9 % (2.6-8.5); Neutrophils Absolute Auto 3.5 K/mm3 (1.3-6.7); Neutrophils Percent Auto 50.6 % (45.5-73.1); Platelet Count Result 584 k/mm3 (150-375); Red Blood Count 4.12 M/mm3 (4.2-5.4); White Blood Count 6.9 K/mm3 (4.5-10.0)
[2024-04-12 19:08] LABS: Alanine Aminotransferase 29 U/L (6-35); Albumin Level 3.8 g/dL (3.5-5.1); Alkaline Phosphatase 162 U/L (38-126); Anion Gap 10 mmol/L (4-12); Aspartate Amino Transferase 51 U/L (14-36); Bilirubin,Total 0.5 mg/dL (0.2-1.3); Blood Urea Nitrogen 13 mg/dL (7-17); Calcium 9.9 mg/dL (8.4-10.2); Carbon Dioxide 26 mmol/L (22-30); Chloride 100 mmol/L (98-107); Estimated Glomerular Filt Rate > 60; Glucose 107 mg/dL (65-110); Potassium 4.6 mmol/L (3.4-5.0); Sodium 136 mmol/L (137-145)
[2024-04-12 19:10] LABS: INR 1.1; Prothrombin Time 14.9 Seconds (11.1-14.7)
[2024-04-12 19:11] LABS: Partial Thromboplastin Time 37.3 Seconds (22.3-36.8)
[2024-04-12 19:19] LABS: Troponin I < 0.012 ng/mL (0.000-0.034)
--- NOTE | 2024-04-12 19:51 | PC.NURSE ---
pt verbalized I do not want to wait any longer this is ridiculous . this rn explained the wait process. pt visibly upset. pt states that she is going to leave at this time. pt is in no distress at this time and is able to ambulate with a steady unassisted gait towards the exit of the ed.
--- OUTSIDE RECORDS SUMMARY | 2024-04-12 20:01 | XMS_ITS | Clinical Summary ---
Author Organization [facility] Address [address] [place] [address]. [place], [place] [address] [place] [address] Care Team Providers Care Human Services Assistant Name Role Phone Gill Cisneros NP Primary Care Provider [phone] Social History Tobacco Use Types Packs/Day Years [...] difficile 04/02/2018 04/02/2018 Insurance ESSENCE Care Teams Human Services Assistant Relationship Specialty Start Date End Date Gill [place] [address] PCP - General NURSE PRACTITIONER 02/01/21
== END 2024-04-12 21:20 | disposition left against medical advice (07) ==
PROVIDERS: Emergency Provider Physician Assistant; PCP Family Medicine
DX: M25.512 Pain in left shoulder (principal); M79.602 Pain in left arm; I10 Essential (primary) hypertension; E78.5 Hyperlipidemia, unspecified; D50.9 Iron deficiency anemia, unspecified; F41.9 Anxiety disorder, unspecified; Z85.820 Personal history of malignant melanoma of skin; Z86.16 Personal history of COVID-19; Z86.73 Personal history of transient ischemic attack (TIA), and cerebral infarction without residual deficits; Z87.891 Personal history of nicotine dependence; Z90.49 Acquired absence of other specified parts of digestive tract; M19.012 Primary osteoarthritis, left shoulder; Z79.01 Long term (current) use of anticoagulants; Z79.899 Other long term (current) drug therapy
CPT/HCPCS: 36415; 73030; 80053; 84484; 85025; 85610; 85730; 93005; 93971; 99284

== ENCOUNTER 2024-04-29 07:49 | Outpatient (CLI) | payer MEDICARE, SELFPAY ==
[2024-04-29 10:27] LABS: Toxigenic C. Diff POSITIVE (NEGATIVE)
--- OUTSIDE RECORDS SUMMARY | 2024-04-29 11:03 | XMS_ITS | Clinical Summary ---
Author Organization [facility] Gene patel [facility] Address [address] [place] [address] Care Team Providers Care Senior Auditor Name Role Phone Unavailable Primary Care Provider Unavailabl e Social History Tobacco Use Types Packs/Day Years Used Date Smoking Tobacco: Never Assessed Comments Unknown Sex and Gender Information Value Date Recorded Sex Assigned at Not on file Legal Sex Female 10:23 AM PHOTOGRAPHER Gender Identity Not on file Sexual Orientation Not on file Plan of Treatment Upcoming Encounters Date Type Department Care Team (Late st Contact Info) Description 07/17/2024 1:30 PM CDT Office Visit [facility] Oncology and Hematology - [place] [address] [facility] [address] [place] [address] Ramos Hamilton MD [address] [facility] [address] [place] [address] Health Maintenance Due Date Last Done Comments DTAP/TDAP/TD VACCINES (1 - Tdap) 1977 BREAST CANCER SCREENING 1998 COLORECTAL SCREENING 2003 Colorectal Cancer Screening 2003 FIT-DNA Q 3 years 2003 FIT/FOBT Q 1 year 2003 Flex Sig/CT Colonography Q 5 years 2003 PNEUMOCOCCAL VACCINE 65+ YEARS (1 of 1 - PCV) 02/01/20 08 ZOSTER VACCINE (1 of 2) 02/01/2008 OSTEOPOROSIS SCREENING 2023 INFLUENZA VACCINE (#1) 2023 RSV VACCINE (60+ or ) (1 - 1-dose 75+ series) 2033 Insurance [facility] [id number]
--- OUTSIDE RECORDS SUMMARY | 2024-04-29 11:03 | XMS_ITS | Clinical Summary ---
Author Organization [facility] Address [address] [place] [address] Care Team Providers Care Glacing Machine Tender Name Role Phone BlayneRebaa TEO Primary Care Provider [phone] Social History Tobacco Use Types Packs/Day Years [...] difficile 04/02/2018 04/02/2018 Insurance ESSENCE Care Teams Glacing Machine Tender Relationship Specialty Start Date End Date Gill [place] [address] PCP - General NURSE PRACTITIONER 02/01/21
== END 2024-04-29 07:50 | disposition home or self-care (01) ==
LOC: ANHLAB 07:50
PROVIDERS: PCP Family Medicine; Visit Provider Family Medicine
DX: R19.7 Diarrhea, unspecified (principal)
CPT/HCPCS: 87493

== ENCOUNTER 2024-05-22 17:06 | Emergency (ER) | payer MEDICARE, SELFPAY ==
[2024-05-22 17:38] VITALS: BP 102/84; PULSE 100; RESP 16; TEMP 36.7; O2SAT 99
--- OUTSIDE RECORDS SUMMARY | 2024-05-22 17:59 | XMS_ITS | Clinical Summary ---
Author Organization [facility] Gene patel [facility] Address [address] [facility] [place] [address] Care Team Providers Care Family Resource Specialist Name Role Phone Unavailable Primary Care Provider Unavailabl e Social History Tobacco Use Types Packs/Day Years Used Date Smoking Tobacco: Never Assessed Comments Unknown Sex and Gender Information Value Date Recorded Sex Assigned at Not on file Legal Sex Female 10:23 AM UNIT SUPERVISOR Gender Identity Not on file Sexual Orientation Not on file Plan of Treatment Upcoming Encounters Date Type Department Care Team (Late st Contact Info) Description 07/17/2024 1:30 PM CDT Office Visit [facility] Oncology and Hematology - [place] [address] [facility] [address] [place] [address] Ramos Hamilton MD [address] [facility] [address] [place] [address] Health Maintenance Due Date Last Done Comments DTAP/TDAP/TD VACCINES (1 - Tdap) 1977 BREAST CANCER SCREENING 1998 COLORECTAL SCREENING 2003 Colorectal Cancer Screening 2003 FIT-DNA Q 3 years 2003 FIT/FOBT Q 1 year 2003 Flex Sig/CT Colonography Q 5 years 2003 PNEUMOCOCCAL VACCINE 50+ YEARS (1 of 1 - PCV) 02/01/20 08 ZOSTER VACCINE (1 of 2) 02/01/2008 OSTEOPOROSIS SCREENING 2023 INFLUENZA VACCINE (#1) 2023 RSV VACCINE (60+ or ) (1 - 1-dose 75+ series) 2033 Insurance [facility] [id number]
--- OUTSIDE RECORDS SUMMARY | 2024-05-22 17:59 | XMS_ITS | Clinical Summary ---
Author Organization [facility] Address [address] [place] [address] Care Team Providers Care Photoengraving Photographer Name Role Phone BlayneRebaa TEO Primary Care Provider [phone] Social History Tobacco Use Types Packs/Day Years [...] difficile 04/02/2018 04/02/2018 Insurance ESSENCE Care Teams Photoengraving Photographer Relationship Specialty Start Date End Date Gill Cisneros [place] [address] PCP - General NURSE PRACTITIONER 02/01/21
--- NOTE | 2024-05-22 19:13 | PC.NURSE ---
pt left before seeing the provider at 1907 due to not wanting to wait any longer
--- OUTSIDE RECORDS SUMMARY | 2024-05-22 21:04 | XMS_ITS | Clinical Summary ---
Author Organization [facility] Address [address] [place] [address] Care Team Providers Care Writer Technical Publications Name Role Phone BlayneRebaa TEO Primary Care Provider [phone] Social History Tobacco Use Types Packs/Day Years [...] difficile 04/02/2018 04/02/2018 Insurance ESSENCE Care Teams Writer Technical Publications Relationship Specialty Start Date End Date Gill [place] [address] PCP - General NURSE PRACTITIONER 02/01/21
--- OUTSIDE RECORDS SUMMARY | 2024-05-22 21:04 | XMS_ITS | Clinical Summary ---
Author Organization [facility] Gene patel [facility] Address [address] [place] [address] Care Team Providers Care Human Resources Services Specialist Name Role Phone Unavailable Primary Care Provider Unavailabl e Social History Tobacco Use Types Packs/Day Years Used Date Smoking Tobacco: Never Assessed Comments Unknown Sex and Gender Information Value Date Recorded Sex Assigned at Not on file Legal Sex Female 10:23 AM SHIFT SUPERVISOR MELTING Gender Identity Not on file Sexual Orientation Not on file Plan of Treatment Upcoming Encounters Date Type Department Care Team (Late st Contact Info) Description 07/17/2024 1:30 PM CDT Office Visit [facility] Oncology and Hematology - [place] [address] [facility] [address] [place] [address] Ramos Hamilton MD [address] [facility] [address] [place] [address] Health Maintenance Due Date Last [...] (1 - 1-dose 75+ series) 2033 Insurance [facility] [id number]
== END 2024-05-22 19:07 | disposition left against medical advice (07) ==
LOC: ANHED 21:02
PROVIDERS: PCP Family Medicine
DX: R19.7 Diarrhea, unspecified (principal)
CPT/HCPCS: 99199

== ENCOUNTER 2024-05-27 13:54 | Outpatient (CLI) | payer MEDICARE, SELFPAY ==
[2024-05-27 15:43] LABS: Toxigenic C. Diff POSITIVE (NEGATIVE)
--- OUTSIDE RECORDS SUMMARY | 2024-05-27 16:29 | XMS_ITS | Clinical Summary ---
Author Organization [facility] Gene patel [facility] Address [address] [place] [address] Care Team Providers Care Microsoft Dynamics Manager Architect Name Role Phone Unavailable Primary Care Provider Unavailabl e Social History Tobacco Use Types Packs/Day Years Used Date Smoking Tobacco: Never Assessed Comments Unknown Sex and Gender Information Value Date Recorded Sex Assigned at Not on file Legal Sex Female 10:23 AM ENVIRONMENTAL HEALTH AND SAFETY MANAGER Gender Identity Not on file Sexual Orientation Not on file Plan of Treatment Upcoming Encounters Date Type Department Care Team (Late st Contact Info) Description 07/17/2024 1:30 PM CDT Office Visit [facility] Oncology and Hematology - [place] [address] [facility] [address] [place] [address] Ramos Hamilton MD [address] [facility] [address] [place] [address] Health Maintenance Due Date Last [...] (1 - 1-dose 75+ series) 2033 Insurance [facility] [id number] [place] [address]
--- OUTSIDE RECORDS SUMMARY | 2024-05-27 16:29 | XMS_ITS | Clinical Summary ---
Author Organization [facility] Address [address] [place] [address] Care Team Providers Care Sample Sewer Name Role Phone BlayneRebaa TEO Primary Care Provider [phone] Social History Tobacco Use Types Packs/Day Years [...] difficile 04/02/2018 04/02/2018 Insurance ESSENCE Care Teams Sample Sewer Relationship Specialty Start Date End Date Gill [place] [address] PCP - General NURSE PRACTITIONER 02/01/21
== END 2024-05-27 13:55 | disposition home or self-care (01) ==
LOC: ANHLAB 13:55
PROVIDERS: PCP Family Medicine; Visit Provider Nurse Practitioner Family
DX: A04.71 Enterocolitis due to Clostridium difficile, recurrent (principal)
CPT/HCPCS: 87493

== ENCOUNTER 2024-05-29 19:26 | Emergency (ER) | payer MEDICARE, SELFPAY ==
--- OUTSIDE RECORDS SUMMARY | 2024-05-29 19:28 | XMS_ITS | Clinical Summary ---
Author Organization [facility] Gene patel [facility] Address [address] [facility] [place] [address] Care Team Providers Care Clothing Patternmaker Name Role Phone Unavailable Primary Care Provider Unavailabl e Social History Tobacco Use Types Packs/Day Years Used Date Smoking Tobacco: Never Assessed Comments Unknown Sex and Gender Information Value Date Recorded Sex Assigned at Not on file Legal Sex Female 10:23 AM GREEN MEAT GRADER Gender Identity Not on file Sexual Orientation Not on file Plan of Treatment Upcoming Encounters Date Type Department Care Team (Late st Contact Info) Description 07/17/2024 1:30 PM CDT Office Visit [facility] Oncology and Hematology - [place] [address] [facility] [address] [place] [address] Ramos Hamilton MD [address] [facility] [address] [place] [address] Health Maintenance Due Date Last [...] (1 - 1-dose 75+ series) 2033 Insurance [facility] [id number]
--- OUTSIDE RECORDS SUMMARY | 2024-05-29 19:28 | XMS_ITS | Clinical Summary ---
Author Organization [facility] Address [address] [place] [address] Care Team Providers Care Photovoltaic Panel Installer Name Role Phone BlayneRebaa TEO Primary Care Provider [phone] Social History Tobacco Use Types Packs/Day Years [...] difficile 04/02/2018 04/02/2018 Insurance ESSENCE Care Teams Photovoltaic Panel Installer Relationship Specialty Start Date End Date Gill [place] [address] PCP - General NURSE PRACTITIONER 02/01/21
[2024-05-29 19:36] VITALS: BP 108/65; PULSE 114; RESP 18; TEMP 36.4; O2SAT 97
--- NOTE | 2024-05-29 20:52 | PC.NURSE ---
Patient came to triage desk and states she is leaving due to wait. Patient advised to seek medical attention if felt necessary. Patient ambulates out of the waiting room without incident at 2048.
--- OUTSIDE RECORDS SUMMARY | 2024-05-29 21:37 | XMS_ITS | Clinical Summary ---
Author Organization [facility] Gene patel [facility] Address [address] [facility] [place] [address] Care Team Providers Care Hard Metals Hand Engraver Name Role Phone Unavailable Primary Care Provider Unavailabl e Social History Tobacco Use Types Packs/Day Years Used Date Smoking Tobacco: Never Assessed Comments Unknown Sex and Gender Information Value Date Recorded Sex Assigned at Not on file Legal Sex Female 10:23 AM VOCATIONAL NURSE LVN Gender Identity Not on file Sexual Orientation Not on file Plan of Treatment Upcoming Encounters Date Type Department Care Team (Late st Contact Info) Description 07/17/2024 1:30 PM CDT Office Visit [facility] Oncology and Hematology - [place] [address] [facility] [address] [place] [address] Ramos Hamilton MD [address] [facility] [address] [place] [address] Health Maintenance Due Date Last [...] 75+ series) 2033 Insurance [facility] [id number]
--- OUTSIDE RECORDS SUMMARY | 2024-05-29 21:37 | XMS_ITS | Clinical Summary ---
Author Organization [facility] Address [address] [place] [address] Care Team Providers Care Insulation Manager Name Role Phone BlayneRebaa TEO Primary Care Provider [phone] Social History Tobacco Use Types Packs/Day Years [...] difficile 04/02/2018 04/02/2018 Insurance [employer] Care Teams Insulation Manager Relationship Specialty Start Date End Date Gill [place] [address] PCP - General NURSE PRACTITIONER 02/01/21
== END 2024-05-29 20:49 | disposition left against medical advice (07) ==
PROVIDERS: PCP Family Medicine
DX: R10.9 Unspecified abdominal pain (principal)
CPT/HCPCS: 99199

== ENCOUNTER 2024-05-30 12:49 | Inpatient (IN) | payer MEDICARE, MEDICAID, SELFPAY ==
[2024-05-30] VITALS (7 sets, daily range): BP systolic 90–135; BP diastolic 45–90; PULSE 89–113; RESP 14–24; TEMP 36.3–37.3; O2SAT 94–100; BMI 26.4
--- NOTE | ~2024-05-30 | XR_ITS ---
Left Knee Technique: AP, lateral, and sunrise views were obtained. Clinical History: Pain Findings: No acute fracture or dislocation is seen. Corticated osseous structure adjacent to the supr aclavicular pole could reflect sequela of prior trauma or normal variant. Osseous alignment is anatom ic. Joint spaces are preserved, with minimal spurring. Soft tissues are unremarkable. No joint effusi on is seen. Impression: No acute abnormality. Minimal degenerative spurring. Reviewed, dictated and finalized at location M. Impression: No acute abnormality. Minimal degenerative spurring.
--- NOTE | ~2024-05-30 | CT_ITS ---
EXAMINATION: CT abdomen pelvis w con DATE: 05/30/2024 14:32 INDICATION: Lower abdominal pain TECHNIQUE: Computed tomography (CT) of the abdomen and pelvis was performed with 100 mL Omnipaque-350 intravenous contrast. Automated exposure control and iterative reconstruction technique were employe d. The dose-length product was 563.45 mGy-cm. COMPARISON: 03/30/2024 FINDINGS: Mild compressive atelectasis along the elevated right hemidiaphragm. Additional mild dependent atelec tasis in the bilateral lower lobes and discoid atelectasis at the lingula. Heart size is normal. Athe rosclerotic coronary artery calcification. No pericardial or pleural effusion. Interval progression o f some mild intrahepatic biliary ductal dilation as well as dilation the common bile duct which previ ously measured 9 mm and currently measures 14 mm in maximal diameter. No evident distal obstructing s tone or mass this could be related to prior cholecystectomy with no gallbladder visualized at the gal lbladder fossa. Pancreas, spleen, bilateral adrenal glands and kidneys are normal. Prominent colonic wall thickening beginning at the distal descending colon and extending to the rectum inflammatory str anding along the sigmoid mesentery consistent with and distal colitis most likely infectious or infla mmatory in etiology. No bowel obstruction. The appendix is not visualized. No pericecal inflammatory change to suggest acute appendicitis. Bladder, anteverted uterus and bilateral adnexa are unremarkabl e. No free intraperitoneal gas or fluid. No pathologically enlarged abdominal or pelvic lymphadenopat hy. Mild lumbar levocurvature. Partial L3 laminectomy with L3-L4 posterior spinal fusion with bilater al vertical frida and pedicle screw fixation. Moderate bilateral hip osteoarthritis. IMPRESSION: 1. Distal colitis most likely infectious or inflammatory in etiology. 2. Interval progression of mild intra and extra hepatic biliary ductal dilation likely related to mitul or cholecystectomy. No evident obstructing stone or mass but would correlate with liver function test s. If clinically indicated this could be further evaluated with MRCP. Reviewed, dictated and finalized at location A. IMPRESSION: 1. Distal colitis most likely infectious or inflammatory in etiology. 2. Interval progression of mild intra and extra hepatic biliary ductal dilation likely related to prior cholecystectomy. No evident obstructing stone or mass but would correlate with liver function tests. If clinically indicated this cou ld be further evaluated with MRCP.
--- NOTE | ~2024-05-30 | CT_ITS ---
CT head without contrast Indication: Head injury COMPARISON: 05/30/2024 Technique: Serial scans were obtained through the brain without the administration of contrast. Dose reduction technique was used on this scan by utilizing automated exposure control and iterative recon struction technique. The dose-length product (DLP) was 605.33 mGy-cm. Findings: There is no evidence of intracranial hemorrhage, mass lesion, or acute infarct. The ventri cles and subarachnoid spaces are dilated, consistent with mild atrophy. There is no evidence of edema , mass effect or midline shift. The visualized paranasal sinuses and mastoid air cells are clear. Impression: No intracranial hemorrhage, mass, or acute infarct. Mild generalized atrophy. Reviewed, dictated and finalized at location . Impression: No intracranial hemorrhage, mass, or acute infarct. Mild generalized atrophy.
--- NOTE | ~2024-05-30 | CT_ITS ---
EXAMINATION: CT brain wo con DATE: 05/30/2024 14:30 INDICATION: Anticoagulated patient post head injury. TECHNIQUE: Computed tomography (CT) of the head was performed without intravenous contrast. Sagittal and coronal reconstructions were performed. The mA was adjusted according to patient size. Iterative reconstruction technique was employed. The dose-length product was 529.67 mGy-cm. COMPARISON: Brain MR dated 04/26/2021 FINDINGS: Hyperostosis frontalis. No fracture. No acute intracranial hemorrhage, acute infarction or abnormal e xtra axial fluid collection. Symmetric prominence of the sulci consistent with mild age-appropriate d iffuse cerebral volume loss. Ventricles are normal and symmetric. No mass/mass effect. The orbits, p aranasal sinuses and mastoid air cells are normal. IMPRESSION: 1. Normal aging brain. No fracture or acute intracranial process. Reviewed, dictated and finalized at location A.
--- NOTE | ~2024-05-30 | XR_ITS ---
Right Knee Technique: AP, lateral, and sunrise views were obtained. Clinical History: Pain Findings: No fracture or dislocation is seen. Osseous alignment is anatomic. Joint spaces are preserv ed with mild degenerative spurring. Soft tissues are unremarkable. No joint effusion is seen. Impression: Mild degenerative change, as above. Reviewed, dictated and finalized at location . Impression: Mild degenerative change, as above.
--- OUTSIDE RECORDS SUMMARY | 2024-05-30 13:12 | XMS_ITS | Clinical Summary ---
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
--- OUTSIDE RECORDS SUMMARY | 2024-05-30 13:12 | XMS_ITS | Clinical Summary ---
Author Organization [facility] Address [address] [place] [address] Care Team Providers Care Bit Grinder Name Role Phone BlayneRebaa TEO Primary Care Provider [phone] Social History Tobacco Use Types Packs/Day Years [...] difficile 04/02/2018 04/02/2018 Insurance [employer] Care Teams Bit Grinder Relationship Specialty Start Date End Date Gill [place] [address] PCP - General NURSE PRACTITIONER 02/01/21
[2024-05-30 13:28] LABS: Basophils Absolute Auto 0.1 K/mm3 (0.0-0.1); Basophils Percent Auto 1.3 % (0.2-1.2); Eosinophils Absolute Auto 0.2 K/mm3 (0-0.3); Eosinophils Percent Auto 3.1 % (0-4.4); Hematocrit 29.4 % (37.0-47.0); Hemoglobin 8.6 g/dL (12.0-15.0); Immature Granulocyte Absolute 0.03 K/mm3 (0.00-0.031); Immature Granulocyte Percent A 0.4 % (0-0.5); Lymphocytes Absolute Auto 1.26 K/mm3 (0.9-3.2); Lymphocytes Percent Auto 16.9 % (18.3-44.2); Mean Corpuscular HGB Conc 29.3 g/dl (32-36); Mean Corpuscular Hemoglobin 23.8 pg (26-34); Mean Corpuscular Volume 81.2 fl (80-100); Mean Platelet Volume 9.2 fl (7.4-10.4); Monocytes Absolute Auto 0.9 K/mm3 (0.1-0.6); Monocytes Percent Auto 12.5 % (2.6-8.5); Neutrophils Absolute Auto 4.9 K/mm3 (1.3-6.7); Neutrophils Percent Auto 65.8 % (45.5-73.1); Platelet Count Result 422 k/mm3 (150-375); Red Blood Count 3.62 M/mm3 (4.2-5.4); Red Cell Distribution Width 20.4 % (11.5-14.5); White Blood Count 7.4 K/mm3 (4.5-10.0)
[2024-05-30 13:41] LABS: Lactic Acid Reflex 1.3 mmol/L (0.7-2.0)
--- NOTE | 2024-05-30 13:43 | ED_ITS ---
HPI - General Adult General Chief complaint: Weakness Stated complaint: Weakness, Nausea, Fever, slight cough Time Seen by Provider: 05/30/24 12:59 History of Present Illness HPI narrative: Patient is a 64-year-old female who presents ER with weakness and abdominal discomfort as well as diarrhea. Patient has a complicated past medical history that had to be found through chart review as she could not give a very good history. In March of this year she is diagnosed with diverticulitis with abscess as well as mesenteric being thrombosis. She is started on antibiotics as well as anticoagulation. She began having improving pain. She then developed C diff. She had been on vancomycin which worked for quite a while. When she finished the medication the next day she started having diarrhea again. She reports this was approximately 3 weeks ago. She reports she did not contact her physician until just a couple days ago that her diarrhea had returned. She was just started on Dificid. Because of lower abdominal cramping and fatigue she was referred to the ER. Patient has a nearly resolved bruise to left forehead that is yellowed. She reports she was weak and fell a couple weeks ago and struck her head. Denies headache or change in vision but she is anticoagulated on apixaban. Patient reports at least 10 loose stools a day. Patient will have some mild nausea but no vomiting. Related Data Home Medications ?Medication ?Instructions ?Recorded ?Confirmed ?Last Taken ?Type cholecalciferol (vitamin D3) 25 25 mcg PO DAILY 04/06/21 04/08/24 04/24/21 History mcg (1,000 unit) capsule Lactobacills gasseri-Bifidobac 1 cap PO DAILY 04/25/21 04/08/24 Unknown History bifidum,longum 1.5 billion cell capsule (TESARO) losartan 50 mg tablet 50 mg PO DAILY 04/08/24 04/08/24 Unknown History Allergies Allergy/AdvReac Type Severity Reaction Status Date / Time Sulfa (Sulfonamide AdvReac Mild Hives Verified 05/30/24 13:54 Antibiotics) sulfamethizole AdvReac Mild Hives Verified 05/30/24 13:54 sulfamethoxazole AdvReac Mild HIVES Verified 05/30/24 13:54 trimethoprim AdvReac Mild Hives Verified 05/30/24 13:54 Review of Systems 2 Review of Systems: All systems reviewed & are unremarkable except as noted in HPI and below Constitutional: Constitutional: Reports no additional constitutional complaints Cardiovascular: Cardiovascular: Reports no additional cardiovascular complaints Respiratory: Respiratory: Reports no additional respiratory complaints Gastrointestinal: Gastrointestinal: Reports no additional gastrointestinal complaints Integumentary/Breasts: Skin/Breast: Reports system reviewed and no additional complaints, except as docu [facility] Past Medical History Medical History Iron deficiency anemia Diverticulitis large intestine (~03/27/24) C. difficile diarrhea (~04/01/24) Melanoma s/p excision Heart murmur Vitamin B12 deficiency Lumbar spondylosis COVID (~08/2021) History of TIA (transient ischemic attack) (~04/2021) Rhabdomyolysis (~04/2021) Anxiety Chronic lumbar pain Hyperlipidemia Hypertension Surgical History Surgical History History of appendectomy History of tonsillectomy (~1964) History of melanoma excision Left shoulder History of cervical spinal surgery (~2014) History of back surgery (~2018) Hx of cholecystectomy (Unknown) Family History Family History Mother Family history of elevated blood lipids Family history of emphysema Hypertension Grandparent Acute myocardial infarction Family history of malignant neoplasm of urinary bladder Father Patient's father is Dementia Sibling COPD (chronic obstructive pulmonary disease) Other Anxiety Depression Family history of chronic obstructive pulmonary disease Skin cancer Social History Social History Smoking packs per day: 1 Smoking cigarettes per day: 20.0 Years smoked: 3 Smoking pack-years: 3.00 Smoking status: Former smoker Tobacco type: cigarettes Second hand tobacco smoke exposure: No Smoking end date: 03/13/82 Alcohol intake: former Substance use: never Do You Feel Safe in your Home?: Yes Lack of Transportation: No Lack of Food: Never True Current Housing: I Have Housing Concerned About Future Housing: No Difficulty Paying Gas/Electric Bills: No Difficulty Paying for Meds: No Currently Unemployed: No Education: High School Diploma/GED Difficulty w/ Childcare or Family Care: No Living arrangements: alone Gender identity (if verbalized by the patient): Female Spiritual care concerns: No Exam 2 Narrative: GENERAL: Fatigued-appearing, well-nourished, and in no acute distress. HEAD: Normocephalic, resolving bruise left forehead. It is only yellow and not purple or green. ENT: Mucous membranes moist. NECK: Supple. CHEST: Clear to auscultation. No respiratory distress. HEART: Tachycardic and regular. Normal peripheral pulses. ABDOMEN: Soft, mild bilateral lower quadrant abdominal discomfort without guarding, nondistended. EXTREMITIES: Normal range of motion. No edema. SKIN: Warm, dry, no rash. NEURO: Alert and oriented x3. PSYCH: Normal mood and affect. Course Course Emergency Course: Patient is still feeling weak with fluid. She has continued to have diarrhea. Discussed with GI and okay to admit for hydration and nausea control while we wait for the Dificid to kick in. Accepted by hospitalist. Vital Signs Vital signs: Vital Signs Temperature 97.3 F L 05/30/24 12:50 Pulse Rate 105 H 05/30/24 12:50 Respiratory Rate 20 05/30/24 12:50 Blood Pressure 108/70 05/30/24 12:50 Pulse Oximetry 100 05/30/24 12:50 Temperature 97.3 F L 05/30/24 12:50 Pulse Rate 92 05/30/24 16:15 Respiratory Rate 14 05/30/24 16:15 Blood Pressure 100/64 05/30/24 16:15 Pulse Oximetry 97 05/30/24 16:15 Medical Decision Making Vital Signs Vital Signs: Vital Signs Temperature 97.3 F L 05/30/24 12:50 Pulse Rate 105 H 05/30/24 12:50 Respiratory Rate 20 05/30/24 12:50 Blood Pressure 108/70 05/30/24 12:50 Pulse Oximetry 100 05/30/24 12:50 Temperature 97.3 F L 05/30/24 12:50 Pulse Rate 92 05/30/24 16:15 Respiratory Rate 14 05/30/24 16:15 Blood Pressure 100/64 05/30/24 16:15 Pulse Oximetry 97 05/30/24 16:15 Lab Data 05/30/24 13:16 05/30/24 13:16 Labs: Lab Results 05/30/24 Range/Units 13:16 WBC 7.4 (4.5-10.0) K/mm3 RBC 3.62 L (4.2-5.4) M/mm3 Hgb 8.6 L (12.0-15.0) g/dL Hct 29.4 L (37.0-47.0) % MCV 81.2 (80-100) fl MCH 23.8 L (26-34) pg MCHC 29.3 L (32-36) g/dl RDW 20.4 H (11.5-14.5) % Plt Count 422 H (150-375) k/mm3 MPV 9.2 (7.4-10.4) fl Immature Gran % (Auto) 0.4 (0-0.5) % Neut % (Auto) 65.8 (45.5-73.1) % Lymph % (Auto) 16.9 L (18.3-44.2) % [place] % (Auto) 12.5 H (2.6-8.5) % Eos % (Auto) 3.1 (0-4.4) % Baso % (Auto) 1.3 H (0.2-1.2) % Lymph # (Auto) 1.26 (0.9-3.2) K/mm3 [place] # (Auto) 0.9 H (0.1-0.6) K/mm3 Eos # (Auto) 0.2 (0-0.3) K/mm3 Baso # (Auto) 0.1 (0.0-0.1) K/mm3 Abs Immat Gran (auto) 0.03 (0.00-0.031) K/mm3 Absolute Neuts (auto) 4.9 (1.3-6.7) K/mm3 Absolute Nucleated RBC 0.000 (0.0-0.012) K/mm3 Band Neutrophils % Not Reportable Nucleated RBC % 0.0 (0.0-0.2) % Platelet Estimate Increased (Adequate) Hypochromasia 1+ Anisocytosis 2+ Schistocytes None seen PT 21.3 H (11.1-14.7) Seconds INR 1.8 APTT 37.7 H (22.3-36.8) Seconds Sodium 135 L (137-145) mmol/L Potassium 4.3 (3.4-5.0) mmol/L Chloride 100 (98-107) mmol/L Carbon Dioxide 25 (22-30) mmol/L Anion Gap 10 (4-12) mmol/L BUN 13 (7-17) mg/dL Creatinine 0.89 (0.7-1.0) mg/dL Estim Creat Clear Calc Not Reportable Estimated GFR > 60 (59 - ) Glucose 117 H (65-110) mg/dL Lactic Acid 1.3 (0.7-2.0) mmol/L Calcium 9.2 (8.4-10.2) mg/dL Total Bilirubin 0.6 (0.2-1.3) mg/dL AST 20 (14-36) U/L ALT 17 (6-35) U/L Alkaline Phosphatase 114 (38-126) U/L Total Protein 7.0 (6.3-8.2) g/dL Albumin 3.8 (3.5-5.1) g/dL Imaging Data Radiologist's impression: ITS Impressions Head CT 05/30/24 14:31 IMPRESSION: 1. Normal aging brain. No fracture or acute intracranial process. Abdomen/Pelvis CT 05/30/24 14:34 IMPRESSION: 1. Distal colitis most likely infectious or inflammatory in etiology. 2. Interval progression of mild intra and extra hepatic biliary ductal dilation likely related to prior cholecystectomy. No evident obstructing stone or mass but would correlate with liver function tests. If clinically indicated this could be further evaluated with MRCP. Discharge Plan Discharge Clinical Impression: C. difficile colitis Patient Disposition: Still a Patient Condition: Stable Patient Language: Bengali Prescriptions: No Action losartan 50 mg tablet 50 mg PO DAILY ferrous sulfate 325 mg (65 mg iron) tablet,delayed release (DR/EC) 325 mg PO BID Qty: 180 0RF cholecalciferol (vitamin D3) 25 mcg (1,000 unit) capsule 25 mcg PO DAILY TESARO 1.5 billion cell Capsule 1 cap PO DAILY cyanocobalamin (vitamin B-12) 1,000 mcg tablet, sublingual 1,000 mcg sublingual DAILY Qty: 90 2RF atorvastatin 20 mg tablet 20 mg PO QHS Qty: 90 1RF citalopram 10 mg tablet 10 mg PO DAILY Qty: 90 1RF Patient Comments: Patient takes HS lorazepam 1 mg tablet 1 mg PO BID PRN (Reason: Anxiety) Qty: 90 1RF Eliquis 5 mg tablet 5 mg PO Q12HR Qty: 120 0RF fidaxomicin 200 mg tablet 200 mg PO Q12H 10 Days Qty: 20 0RF Follow-up/Referrals: Ari Jordan MD [Primary Care Provider] -
--- OUTSIDE RECORDS SUMMARY | 2024-05-30 13:50 | XMS_ITS | Clinical Summary ---
Author Organization [facility] Address [address] [place] [address] Care Team Providers Care Cooler Deliverer Name Role Phone BlayneRebaa TEO Primary Care Provider [phone] Social History Tobacco Use Types Packs/Day Years [...] difficile 04/02/2018 04/02/2018 Insurance [employer] Care Teams Cooler Deliverer Relationship Specialty Start Date End Date [place] [address] PCP - General NURSE PRACTITIONER 02/01/21
--- OUTSIDE RECORDS SUMMARY | 2024-05-30 13:50 | XMS_ITS | Clinical Summary ---
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
[2024-05-30 13:51] LABS: Alanine Aminotransferase 17 U/L (6-35); Albumin Level 3.8 g/dL (3.5-5.1); Alkaline Phosphatase 114 U/L (38-126); Anion Gap 10 mmol/L (4-12); Aspartate Amino Transferase 20 U/L (14-36); Bilirubin,Total 0.6 mg/dL (0.2-1.3); Blood Urea Nitrogen 13 mg/dL (7-17); Calcium 9.2 mg/dL (8.4-10.2); Carbon Dioxide 25 mmol/L (22-30); Chloride 100 mmol/L (98-107); Estimated Glomerular Filt Rate > 60; Glucose 117 mg/dL (65-110); Potassium 4.3 mmol/L (3.4-5.0); Sodium 135 mmol/L (137-145)
[2024-05-30] MEDS: SODIUM CHLORIDE 0.9% IV 1,000 ML 999 ML IV CONT (13:54)
[2024-05-30 14:08] LABS: INR 1.8; Prothrombin Time 21.3 Seconds (11.1-14.7)
[2024-05-30 14:10] LABS: Partial Thromboplastin Time 37.7 Seconds (22.3-36.8)
[2024-05-30 14:17] LABS: Anisocytosis 2+; Hypochromasia 1+; Platelet Estimate Increased (Adequate); Schistocytes None Seen
[2024-05-30] MEDS: SODIUM CHLORIDE 0.9% IV 1,000 ML 125 ML IV CONT (16:00)
--- NOTE | 2024-05-30 18:35 | P.HP_ITS ---
H&P: HPI History of Present Illness Date/Time: 05/30/24 18:35 Chief Complaint: Diarrhea Narrative: 64 y/o F presents here with diarrhea with PMH of iron deficiency anemia, diverticulitis, C diff (03/2024-05/2024), melanoma s/p excision, TIA, anxiety, hyperlipidemia, and hypertension. The patient presents here from home for further evaluation of ongoing diarrhea for the past 3 months. She was initially seen on 03/27/[address] at that time showed sigmoid diverticulitis, 15 mm intramural abscess, and new thrombophlebitis of the sigmoid mesenteric veins. She was started on heparin and treated with Zosyn and metronidazole. During her admission she tested positive for C diff on 04/01/2024. She was then discharged home on 04/08/2024 with Augmentin for the diverticulitis/intramural abscess and vancomycin for the C diff. She was retested later on 04/29/2024 which again showed positive C diff. she was then given a course of Dificid 200 mg b.i.d. times 10 days. She was then retested again on 05/27/2024 and she was again positive for C diff. the patient's PCP encouraged her to seek care at the emergency department for treatment. She is currently denies fever and body aches. Endorsing chills and intermittent abdominal pain, none currently. Initial VS at presentation: 97.3? F, HR 105, R 20, 108/70, and 100% on RA. ED workup showed: No leukocytosis, hemoglobin 8.6 (previously 10.7 on 04/12/2024, however baseline appears to be closer to 8 more recently), INR 1.8, no significant electrolyte derangements, creatinine 0.89 and GFR >60, lactic 1.3. Head CT showed normal aging brain and no fracture or acute intracranial process. CT of the abdomen/pelvis showed distal colitis most likely infectious or inflammatory in etiology and interval progression the mid intra and extrahe patic biliary duct dilation likely secondary to prior cholecystectomy with no evidence of obstructing stone or mass. Review of Systems Review of Systems: All systems reviewed & are unremarkable except as noted in HPI and below [facility] Past Medical History Medical History Iron deficiency anemia Diverticulitis large intestine (~03/27/24) C. difficile diarrhea (~04/01/24) Melanoma s/p excision Heart murmur Vitamin B12 deficiency Lumbar spondylosis COVID (~08/2021) History of TIA (transient ischemic attack) (~04/2021) Rhabdomyolysis (~04/2021) Anxiety Chronic lumbar pain Hyperlipidemia Hypertension Surgical History Surgical History History of appendectomy History of tonsillectomy (~1964) History of melanoma excision Left shoulder History of cervical spinal surgery (~2014) History of back surgery (~2018) Hx of cholecystectomy (Unknown) Family History Family History Mother Family history of elevated blood lipids Family history of emphysema Hypertension Grandparent Acute myocardial infarction Family history of malignant neoplasm of urinary bladder Father Patient's father is Dementia Sibling COPD (chronic obstructive pulmonary disease) Other Anxiety Depression Family history of chronic obstructive pulmonary disease Skin cancer Social History Social History Smoking packs per day: 1 Smoking cigarettes per day: 20.0 Years smoked: 3 Smoking pack-years: 3.00 Smoking status: Former smoker Tobacco type: cigarettes Second hand tobacco smoke exposure: No Smoking end date: 03/13/82 Alcohol intake: former Substance use: never Do You Feel Safe in your Home?: Yes Lack of Transportation: No Lack of Food: Never True Current Housing: I Have Housing Concerned About Future Housing: No Difficulty Paying Gas/Electric Bills: No Difficulty Paying for Meds: No Currently Unemployed: No Education: High School Diploma/GED Difficulty w/ Childcare or Family Care: No Living arrangements: alone Gender identity (if verbalized by the patient): Female Spiritual care concerns: No Meds Home Medications and Allergies Home Medications ?Medication ?Instructions ?Recorded ?Confirmed ?Type cholecalciferol (vitamin D3) 25 25 mcg PO DAILY 04/06/21 04/08/24 History mcg (1,000 unit) capsule Lactobacills gasseri-Bifidobac 1 cap PO DAILY 04/25/21 04/08/24 History bifidum,longum 1.5 billion cell capsule (Chauffeur Prive) cyanocobalamin (vitamin B-12) 1,000 mcg sublingual DAILY #90 tabs 07/22/21 04/08/24 Rx 1,000 mcg sublingual tablet atorvastatin 20 mg tablet 20 mg PO QHS #90 tabs 11/07/23 04/08/24 Rx citalopram 10 mg tablet 10 mg PO DAILY #90 tabs 02/14/24 04/08/24 Rx lorazepam 1 mg tablet 1 mg PO BID PRN Anxiety #90 tabs 03/19/24 04/08/24 Rx ferrous sulfate 325 mg (65 mg 325 mg PO BID #180 tabs 04/08/24 04/08/24 Rx iron) tablet,delayed release losartan 50 mg tablet 50 mg PO DAILY 04/08/24 04/08/24 History apixaban 5 mg tablet (Eliquis) 5 mg PO Q12HR #120 tabs 04/29/24 Rx fidaxomicin 200 mg tablet 200 mg PO Q12H 10 days #20 tabs 05/29/24 Rx Allergies Allergy/AdvReac Type Severity Reaction Status Date / Time Sulfa (Sulfonamide AdvReac Mild Hives Verified 05/30/24 13:54 Antibiotics) sulfamethizole AdvReac Mild Hives Verified 05/30/24 13:54 sulfamethoxazole AdvReac Mild HIVES Verified 05/30/24 13:54 trimethoprim AdvReac Mild Hives Verified 05/30/24 13:54 Vital Signs Vital Signs - 24 hr 05/30/24 12:50 05/30/24 15:15 05/30/24 15:45 Temperature 97.3 F L Pulse Rate 105 H 97 89 Respiratory Rate 20 16 16 Blood Pressure 108/70 135/90 101/69 Pulse Oximetry 100 98 98 05/30/24 16:15 Temperature Pulse Rate 92 Respiratory Rate 14 Blood Pressure 100/64 Pulse Oximetry 97 Exam Const: General: comfortable and no acute distress Other: , female, nontoxic appearance HENMT: Face/Nose/Sinus: Normal nares present Mouth: Yes moist mucous membranes Eyes: General: appearance normal, both eyes and all related structures Sclera: sclerae normal Pupils: Equal, round and reactive pupils present EOM: EOMs intact bilaterally Resp: Effort & Inspection: normal respiratory effort Auscultation: clear to auscultation bilaterally Cardio: Rhythm: regular rhythm Other: S1-S2 present without murmur, rub, ectopy GI: Other: Abdomen soft, nondistended, nontender. Hyperactive bowel sounds in all quadrants. Skin: General skin exam: normal color (Mild pallor) and no rashes or lesions noted Wounds: no wounds Neuro: Speech: normal speech Motor exam (neuro): 5/5 motor strength present throughout Sensory Exam: normal sensation Other: A&O x4 Extrem: General: normal to inspection Psych: Mental Status: mental status grossly normal Affect: normal affect Other: Good insight and judgment, pleasant H&P: Results Labs Labs: Short CBC 05/30/24 Range/Units 13:16 WBC 7.4 (4.5-10.0) K/mm3 Hgb 8.6 L (12.0-15.0) g/dL Hct 29.4 L (37.0-47.0) % Plt Count 422 H (150-375) k/mm3 BMP 05/30/24 13:16 Sodium 135 L Potassium 4.3 Chloride 100 Carbon Dioxide 25 BUN 13 Creatinine 0.89 Glucose 117 H Calcium 9.2 Liver Function 05/30/24 Range/Units 13:16 Total Bilirubin 0.6 (0.2-1.3) mg/dL AST 20 (14-36) U/L ALT 17 (6-35) U/L Alkaline Phosphatase 114 (38-126) U/L Albumin 3.8 (3.5-5.1) g/dL Assessment and Plan Assessment and plan (1) C. difficile colitis: Code(s): A04.72 - Enterocolitis due to Clostridium difficile, not specified as recurrent Status: Acute Assessment and Plan: - CT abd/pelvis (05/30/24): 1. Distal colitis most likely infectious or inflammatory in etiology. 2. Interval progression of mild intra and extra hepatic biliary ductal dilation likely related to prior cholecystectomy. No evident obstructing stone or mass but would correlate with liver function tests. If clinically indicated this could be further evaluated with MRCP. - C.Diff+ 04/01/2024, 04/29/2024, 05/27/2024 - previously on Vancomycin PO course x1 and Dificid course x1. Will proceed with oral Vancomycin, add Metronidazole. Consider transition to Vanc enema if no clinical improvement. - GI consulted - IV fluids: 1L bolus -> 125 mL/hr. monitor I&Os. (2) Iron deficiency anemia: Qualifiers: Iron deficiency anemia type: unspecified iron deficiency Qualified Code(s): D50.9 - Iron deficiency anemia, unspecified Code(s): D50.9 - Iron deficiency anemia, unspecified Status: Chronic Assessment and Plan: - Hgb 8.6 - Hx of iron deficiency anemia, continue iron supplement - on Eliquis - transfuse if <7 - trend CBC (3) Hypertension: Qualifiers: Hypertension type: primary hypertension Qualified Code(s): I10 - Essential (primary) hypertension Code(s): I10 - Essential (primary) hypertension Status: Chronic Assessment and Plan: - chronic, currently 100/64 - hold home medications, resume when appropriate. - monitor Plan Diet: Heart healthy GI Prophylaxis: Not currently indicated DVT Prophylaxis: Eliquis Lines: Peripheral Code Status: Full code Quality VTE Prophylaxis VTE prophylaxis: pharmacologic ordered Hospitalist MIPS Advance Care Plan I have confirmed that the patient's Advanced Care Plan is present, code status is documented, or surrogate decision maker is listed in patient medical record.: Yes Medication Reconciliation I have utilized all available resources to obtain, update and review the patients current medications (includes all prescriptions, OTC, herbals, cannabis, and nutritional supplements).: Yes
[2024-05-30] MEDS: metroNIDAZOLE 500 MG/ISO 100ML 500 MG/100 ML BAG 100 MG IVPB (20:10)
--- NOTE | 2024-05-30 22:25 | PC.NURSE ---
This patient, Rosanna Johns, was admitted to [address] [place] [address] Room 300-01. Patient/family oriented to hospital policies and general routines including ID bracelet, bed and alarms, visiting hours, pain management, procedures, bathroom and other care routines, personal items, smoking policy, room service/diet, and visiting hours. Information on how to activate the Rapid Response Team has been discussed. Patient/Family are encouraged to report perceived risks to care and to ask questions if they do not understand what they are told or what they should do.
[2024-05-31] MEDS: APIXABAN 5 MG TABLET PO ×3 (00:27→20:48)
[2024-05-31] MEDS: VANCOMYCIN HCL 125 MG ORAL CAPSULE PO ×3 (00:28→11:13)
[2024-05-31] MEDS: ATORVASTATIN 20 MG TABLET PO ×2 (00:28→20:48)
[2024-05-31 01:19] VITALS: BP 102/58; PULSE 103; RESP 16; TEMP 37.4; O2SAT 96
[2024-05-31 04:57] VITALS: BP 111/68; PULSE 106; RESP 16; TEMP 36.7; O2SAT 99
[2024-05-31 06:11] LABS: Basophils Absolute Auto 0.1 K/mm3 (0.0-0.1); Basophils Percent Auto 0.8 % (0.2-1.2); Eosinophils Absolute Auto 0.3 K/mm3 (0-0.3); Eosinophils Percent Auto 3.3 % (0-4.4); Hematocrit 29.3 % (37.0-47.0); Immature Granulocyte Absolute 0.04 K/mm3 (0.00-0.031); Immature Granulocyte Percent A 0.5 % (0-0.5); Lymphocytes Absolute Auto 1.74 K/mm3 (0.9-3.2); Lymphocytes Percent Auto 20.7 % (18.3-44.2); Mean Corpuscular HGB Conc 27.3 g/dl (32-36); Mean Corpuscular Hemoglobin 23.9 pg (26-34); Mean Corpuscular Volume 87.5 fl (80-100); Mean Platelet Volume 9.5 fl (7.4-10.4); Monocytes Percent Auto 11.9 % (2.6-8.5); Neutrophils Absolute Auto 5.3 K/mm3 (1.3-6.7); Neutrophils Percent Auto 62.8 % (45.5-73.1); Nucleated Red Blood Cells Perc 0.4 % (0.0-0.2); Platelet Count Result 396 k/mm3 (150-375); Red Blood Count 3.35 M/mm3 (4.2-5.4); Red Cell Distribution Width 20.9 % (11.5-14.5); White Blood Count 8.4 K/mm3 (4.5-10.0)
[2024-05-31 06:32] LABS: Anion Gap 9 mmol/L (4-12); Blood Urea Nitrogen 9 mg/dL (7-17); Calcium 8.6 mg/dL (8.4-10.2); Carbon Dioxide 19 mmol/L (22-30); Chloride 102 mmol/L (98-107); Estimated Glomerular Filt Rate > 60; Glucose 92 mg/dL (65-110); Potassium 4.6 mmol/L (3.4-5.0); Sodium 130 mmol/L (137-145)
[2024-05-31 06:42] LABS: Anisocytosis 1+; Platelet Estimate Slightly Increased (Adequate)
[2024-05-31 06:43] LABS: Burr Cells 2+; Ovalocytes 1+; Schistocytes None Seen
[2024-05-31] MEDS: metroNIDAZOLE 500 MG/ISO 100ML 500 MG/100 ML BAG 100 MG IVPB ×2 (09:38→09:39)
[2024-05-31] MEDS: FERROUS SULFATE 325 MG TABLET DR PO ×2 (09:39→16:49)
[2024-05-31] MEDS: CYANOCOBALAMIN 1,000 MCG TABLET 1000 MCG BY MOUTH (09:39)
[2024-05-31] MEDS: CHOLECALCIFEROL 1,000 UNITS TABLET 1000 UNITS PO (09:39)
[2024-05-31] MEDS: ACIDOPHILUS/BULGARICUS CHEWABLE TABLET 1 TABLET PO (09:39)
[2024-05-31] MEDS: SODIUM CHLORIDE 0.9% IV 1,000 ML 125 ML IV CONT (09:46)
[2024-05-31 10:09] VITALS: BMI 26.4
--- NOTE | 2024-05-31 10:38 | P.PNIM_ITS ---
Progress Note: A&P Assessment and Plan (1) C. difficile colitis: Code(s): A04.72 - Enterocolitis due to Clostridium difficile, not specified as recurrent Status: Acute (2) Iron deficiency anemia: Qualifiers: Iron deficiency anemia type: unspecified iron deficiency Qualified Code(s): D50.9 - Iron deficiency anemia, unspecified Code(s): D50.9 - Iron deficiency anemia, unspecified Status: Chronic (3) Hypertension: Qualifiers: Hypertension type: primary hypertension Qualified Code(s): I10 - Essential (primary) hypertension Code(s): I10 - Essential (primary) hypertension Status: Chronic Plan 64 y/o F presents here with diarrhea with PMH of iron deficiency anemia, diverticulitis, C diff (03/2024-05/2024), melanoma s/p excision, TIA, anxiety, hyperlipidemia, and hypertension. The patient presents here from home for further evaluation of ongoing diarrhea for the past 3 months. She was initially seen on 03/27/[address] at that time showed sigmoid diverticulitis, 15 mm intramural abscess, and new thrombophlebitis of the sigmoid mesenteric veins. She was started on heparin and treated with Zosyn and metronidazole. During her admission she tested positive for C diff on 04/01/2024. She was then discharged home on 04/08/2024 with Augmentin for the diverticulitis/intramural abscess and vancomycin for the C diff. She was retested later on 04/29/2024 which again showed positive C diff. she was then given a course of Dificid 200 mg b.i.d. times 10 days. She was then retested again on 05/27/2024 and she was again positive for C diff. the patient's PCP encouraged her to seek care at the emergency department for treatment. She is currently denies fever and body aches. Endorsing chills and intermittent abdominal pain, none currently. Initial VS at presentation: 97.3? F, HR 105, R 20, 108/70, and 100% on RA. ED workup showed: No leukocytosis, hemoglobin 8.6 (previously 10.7 on 04/12/2024, however baseline appears to be closer to 8 more recently), INR 1.8, no significant electrolyte derangements, creatinine 0.89 and GFR >60, lactic 1.3. Head CT showed normal aging brain and no fracture or acute intracranial process. CT of the abdomen/pelvis showed distal colitis most likely infectious or inflammatory in etiology and interval progression the mid intra and extrahepatic biliary duct dilation likely secondary to prior cholecystectomy with no evidence of obstructing stone or mass. Recurrent C diff infection. Started on vancomycin oral added metronidazole. Fluid resuscitation. GI has been consulted. May to vancomycin taper. Iron deficiency anemia Hypertension History of diverticulitis Melanoma status post excision History of TIA Anxiety Hypertension Hyperlipidemia Recent sigmoid mesenteric vein thrombophlebitis anticoagulation Diet: Heart healthy GI Prophylaxis: Not currently indicated DVT Prophylaxis: Eliquis Lines: Peripheral Code Status: Full code Subjective Date/time seen: 05/31/24 10:38 Interval history: Patient presented with abdominal discomfort weakness and diarrhea. March of 2024 diagnosed with diverticulitis with abscess as well as mesenteric vein thrombosis. She was treated with antibiotics and anticoagulation. Subsequently developed C diff was treated with vancomycin. She was recently started on Dific id by her physician. Had generalized weakness and fell couple of weeks ago and struck her head. About 10 loose stools per day. Some what slowing down now Review of Systems Review of Systems: All systems reviewed & are unremarkable except as noted in HPI and below Exam Narrative: GENERAL: Fatigued-appearing, well-nourished, and in no acute distress. HEAD: Normocephalic, resolving bruise left forehead. ENT: Mucous membranes moist. NECK: Supple. CHEST: Clear to auscultation. No respiratory distress. HEART: Tachycardic and regular. Normal peripheral pulses. ABDOMEN: Soft, mild bilateral lower quadrant abdominal discomfort without guarding, nondistended. EXTREMITIES: Normal range of motion. No edema. SKIN: Warm, dry, no rash. NEURO: Alert and oriented x3. PSYCH: Normal mood and affect. Objective Data Vital Signs Vital Signs: Vital Signs - 24 hr 05/30/24 12:50 05/30/24 15:15 05/30/24 15:45 Temperature 97.3 F L Pulse Rate 105 H 97 89 Respiratory Rate 20 16 16 Blood Pressure 108/70 135/90 101/69 Pulse Oximetry 100 98 98 Oxygen Delivery 05/30/24 16:15 05/30/24 19:14 05/30/24 19:14 Temperature 98.1 F Pulse Rate 92 113 H 113 H Respiratory Rate 14 20 Blood Pressure 100/64 109/61 Pulse Oximetry 97 94 Oxygen Delivery 05/30/24 21:11 05/30/24 22:29 05/31/24 01:19 Temperature 98.3 F 99.1 F 99.3 F Pulse Rate 105 H 104 H 103 H Respiratory Rate 24 H 16 16 Blood Pressure 90/45 L 112/57 L 102/58 L Pulse Oximetry 95 94 96 Oxygen Delivery 05/31/24 04:00 05/31/24 04:57 05/31/24 08:00 Temperature 98.1 F Pulse Rate 106 H Respiratory Rate 16 Blood Pressure 111/68 Pulse Oximetry 99 Oxygen Delivery Room Air Room Air Intake/Output Intake/Output: Intake & Output 05/28/24 05/29/24 05/30/24 05/31/24 23:59 23:59 23:59 23:59 Intake Total 1100 1790 Balance 1100 1790 Meds/Results Medications: Active Medications Generic Name Dose Route Start Last Admin Trade Name Freq PRN Reason Stop Dose Admin Acetaminophen 650 mg 05/30/24 15:45 Acetaminophen 325 Mg Tablet PO Q4H PRN Mild Pain (1-3) or Fever Hydrocodone Bitart/Acetaminophen 1 tab 05/30/24 15:45 Hydrocodone/Acetaminophen (*Crx) 5-325 Mg Tablet PO Q4H PRN Pain Rated 4-6 Apixaban 5 mg 05/30/24 23:15 05/31/24 09:39 Apixaban 5 Mg Tablet PO 5 mg Q12HR CEE Administration Atorvastatin Calcium 20 mg 05/30/24 23:15 05/31/24 00:28 Atorvastatin 20 Mg Tablet PO 20 mg QHS CEE Administration Cyanocobalamin 1,000 mcg 05/31/24 09:00 05/31/24 09:39 Cyanocobalamin 1,000 Mcg Tablet BY MOUTH 1,000 mcg DAILY CEE Administration Ferrous Sulfate 325 mg 05/31/24 09:00 05/31/24 09:39 Ferrous Sulfate [address] PO 325 mg BID CEE Administration Sodium Chloride 1,000 mls @ 125 mls/hr 05/30/24 15:45 05/31/24 09:46 Normal Saline Iv IV CONT 125 mls/hr .Q8H CEE Administration Metronidazole 500 mg in 100 mls @ 100 mls/hr 05/31/24 10:00 05/31/24 09:39 Flagyl 500 Mg/Iso Soln 100 Ml IVPB 100 mls/hr Q8H CEE Administration Lactobacillus Acidophilus 1 tablet 05/31/24 09:00 05/31/24 09:39 Acidophilus/Bulgaricus Chewable Tablet PO 1 tablet DAILY CEE Administration Lorazepam 1 mg 05/30/24 22:50 Lorazepam (*Crx) 1 Mg Tablet PO BID PRN Anxiety Morphine Sulfate 2 mg 05/30/24 15:45 Morphine Sulfate (*Crx) 2 Mg/Ml Inj IV PUSH Q2H PRN Pain Rated 7-10 Ondansetron HCl 4 mg 05/30/24 15:45 Ondansetron Inj 4 Mg/2 Ml Vial IV PUSH Q4H PRN Nausea Vancomycin HCl 125 mg 05/31/24 00:00 05/31/24 06:18 Vancomycin Hcl 125 Mg Oral Capsule PO 06/10/24 00:00 125 mg Q6HR CEE Administration Vitamin D 1,000 units 05/31/24 09:00 05/31/24 09:39 Cholecalciferol 1,000 Units Tablet PO 1,000 units DAILY CEE Administration Radiology Results: ITS Impressions Abdomen/Pelvis CT 05/30/24 14:34 IMPRESSION: 1. Distal colitis most likely infectious or inflammatory in etiology. 2. Interval progression of mild intra and extra hepatic biliary ductal dilation likely related to prior cholecystectomy. No evident obstructing stone or mass but would correlate with liver function tests. If clinically indicated this could be further evaluated with MRCP. Knee X-Ray 05/31/24 06:12 Impression: No acute abnormality. Minimal degenerative spurring. Head CT 05/31/24 06:27 Impression: No intracranial hemorrhage, mass, or acute infarct. Mild generalized atrophy. Labs Labs: Laboratory Results - last 24 hr 05/30/24 05/31/24 13:16 05:03 WBC 7.4 8.4 RBC 3.62 L 3.35 L Hgb 8.6 L 8.0 L Hct 29.4 L 29.3 L MCV 81.2 87.5 D MCH 23.8 L 23.9 L MCHC 29.3 L 27.3 L RDW 20.4 H 20.9 H Plt Count 422 H 396 H MPV 9.2 9.5 Immature Gran % (Auto) 0.4 0.5 Neut % (Auto) 65.8 62.8 Lymph % (Auto) 16.9 L 20.7 [place] % (Auto) 12.5 H 11.9 H Eos % (Auto) 3.1 3.3 Baso % (Auto) 1.3 H 0.8 Lymph # (Auto) 1.26 1.74 [place] # (Auto) 0.9 H 1.0 H Eos # (Auto) 0.2 0.3 Baso # (Auto) 0.1 0.1 Abs Immat Gran (auto) 0.03 0.04 H Absolute Neuts (auto) 4.9 5.3 Absolute Nucleated RBC 0.000 0.030 H Band Neutrophils % Not Reportable Not Reportable Nucleated RBC % 0.0 0.4 H Platelet Estimate Increased Slightly increased Hypochromasia 1+ Anisocytosis 2+ 1+ Ovalocytes 1+ [place] Cells 2+ Schistocytes None seen None seen PT 21.3 H INR 1.8 APTT 37.7 H Sodium 135 L 130 L Potassium 4.3 4.6 Chloride 100 102 Carbon Dioxide 25 19 L Anion Gap 10 9 BUN 13 9 Creatinine 0.89 0.71 Estim Creat Clear Calc Not Reportable Not Reportable Estimated GFR > 60 > 60 Glucose 117 H 92 Lactic Acid 1.3 Calcium 9.2 8.6 Total Bilirubin 0.6 AST 20 ALT 17 Alkaline Phosphatase 114 Total Protein 7.0 Albumin 3.8
[2024-05-31 14:00] VITALS: BP 106/71; PULSE 108; RESP 16; TEMP 36.8; O2SAT 100
--- NOTE | 2024-05-31 16:32 | P.CONGI_ITS ---
Assessment and Plan Assessment and plan (1) Diarrhea: Code(s): R19.7 - Diarrhea, unspecified Status: Acute Assessment and Plan: The patient has recurrent C difficile diarrhea, with only 1 fully documented treatment course with vancomycin. Will start fidaxomicin 200 mg b.i.d. today, and will observe her clinical response. Her Physical examination, white count and albumin are normal which is reassuring, not reflecting fulminant colitis. Plan - Fidaxomycin 200 mg PO biD - Document daily stool frequency and output GI Consult Note Consult date/time: 05/31/24 16:32 Reason for consult: C difficile diarrhea HPI: Rosanna Johns, a 64-year-old female, presented earlier this year with severe acute diverticulitis complicated by abscess and mesenteric thrombosis. She was treated with intravenous antibiotics during her hospitalization and subsequently transitioned to outpatient Augmentin and anticoagulation. She then developed C difficile diarrhea, which partially responded to vancomycin. The patient's record is unclear regarding whether she received a second course of vancomycin or fidaxomicin, but it is confirmed she did not complete a full second course. The patient is a poor historian. After approximately three weeks of improvement, she was admitted yesterday for recurrent diarrhea and was again positive for C difficile. She denies fever or severe abdominal pain, and reports an average stool frequency of 6-7 liquid bowel movements per day. She describes significant weakness. Review of Systems 2 Review of Systems: All systems reviewed & are unremarkable except as noted in HPI and below PMFSH Past Medical History Medical History Iron deficiency anemia Diverticulitis large intestine (~03/27/24) C. difficile diarrhea (~04/01/24) Melanoma s/p excision Heart murmur Vitamin B12 deficiency Lumbar spondylosis COVID (~08/2021) History of TIA (transient ischemic attack) (~04/2021) Rhabdomyolysis (~04/2021) Anxiety Chronic lumbar pain Hyperlipidemia Hypertension Surgical History Surgical History History of appendectomy History of tonsillectomy (~1965) History of melanoma excision Left shoulder History of cervical spinal surgery (~2014) History of back surgery (~2018) Hx of cholecystectomy (Unknown) Family History Family History Mother Family history of elevated blood lipids Family history of emphysema Hypertension Grandparent Acute myocardial infarction Family history of malignant neoplasm of urinary bladder Father Patient's father is Dementia Sibling COPD (chronic obstructive pulmonary disease) Other Anxiety Depression Family history of chronic obstructive pulmonary disease Skin cancer Social History Social History Smoking packs per day: 1 Smoking cigarettes per day: 20.0 Years smoked: 3 Smoking pack-years: 3.00 Smoking status: Former smoker Second hand tobacco smoke exposure: No Alcohol intake: former Substance use: never Substance use type: does not use Do You Feel Safe in your Home?: No Lack of Transportation: No Lack of Food: Never True Current Housing: I Have Housing Concerned About Future Housing: No Difficulty Paying Gas/Electric Bills: No Difficulty Paying for Meds: No Currently Unemployed: No Education: High School Diploma/GED Difficulty w/ Childcare or Family Care: No Living arrangements: alone Gender identity (if verbalized by the patient): Female Spiritual care concerns: No Meds Home Medications and Allergies Home Medications ?Medication ?Instructions ?Recorded ?Confirmed ?Type cholecalciferol (vitamin D3) 25 25 mcg PO DAILY 04/06/21 05/30/24 History mcg (1,000 unit) capsule Lactobacills gasseri-Bifidobac 1 cap PO DAILY 04/25/21 05/30/24 History bifidum,longum 1.5 billion cell capsule ([facility]) cyanocobalamin (vitamin B-12) 1,000 mcg sublingual DAILY #90 tabs 07/22/21 05/30/24 Rx 1,000 mcg sublingual tablet atorvastatin 20 mg tablet 20 mg PO QHS #90 tabs 11/07/23 05/30/24 Rx lorazepam 1 mg tablet 1 mg PO BID PRN Anxiety #90 tabs 03/19/24 05/30/24 Rx ferrous sulfate 325 mg (65 mg 325 mg PO BID #180 tabs 04/08/24 05/30/24 Rx iron) tablet,delayed release losartan 50 mg tablet 50 mg PO DAILY 04/08/24 05/30/24 History apixaban 5 mg tablet (Eliquis) 5 mg PO Q12HR #120 tabs 04/29/24 05/30/24 Rx Allergies Allergy/AdvReac Type Severity Reaction Status Date / Time Sulfa (Sulfonamide AdvReac Mild Hives Verified 05/30/24 13:54 Antibiotics) sulfamethizole AdvReac Mild Hives Verified 05/30/24 13:54 sulfamethoxazole AdvReac Mild HIVES Verified 05/30/24 13:54 trimethoprim AdvReac Mild Hives Verified 05/30/24 13:54 Vital Signs Vital Signs - 24 hr 05/30/24 19:14 05/30/24 19:14 05/30/24 21:11 Temperature 98.1 F 98.3 F Pulse Rate 113 H 113 H 105 H Respiratory Rate 20 24 H Blood Pressure 109/61 90/45 L Pulse Oximetry 94 95 Oxygen Delivery 05/30/24 22:29 05/31/24 01:19 05/31/24 04:00 Temperature 99.1 F 99.3 F Pulse Rate 104 H 103 H Respiratory Rate 16 16 Blood Pressure 112/57 L 102/58 L Pulse Oximetry 94 96 Oxygen Delivery Room Air 05/31/24 04:57 05/31/24 08:00 05/31/24 14:00 Temperature 98.1 F 98.3 F Pulse Rate 106 H 108 H Respiratory Rate 16 16 Blood Pressure 111/68 106/71 Pulse Oximetry 99 100 Oxygen Delivery Room Air Exam 2 Const: General: cooperative and healthy appearing Resp: Effort & Inspection: normal respiratory effort and able to speak in complete sentences Auscultation: clear to auscultation bilaterally Cardio: Rate: regular rate Rhythm: regular rhythm GI: Inspection: normal to inspection GI Palp: No No hepatosplenomegaly present Auscultation: normal bowel sounds Rectal Exam: deferred Skin: General skin exam: normal color Psych: Appearance: grossly normal Mental Status: mental status grossly normal Results Labs 05/31/24 05:03 05/31/24 05:03 Labs: Short CBC 05/31/24 Range/Units 05:03 WBC 8.4 (4.5-10.0) K/mm3 Hgb 8.0 L (12.0-15.0) g/dL Hct 29.3 L (37.0-47.0) % Plt Count 396 H (150-375) k/mm3 BMP 05/31/24 05:03 Sodium 130 L Potassium 4.6 Chloride 102 Carbon Dioxide 19 L BUN 9 Creatinine 0.71 Glucose 92 Calcium 8.6
[2024-05-31] MEDS: SACCHAROMYCES BOULARDII 250 MG CAPSULE PO (16:54)
[2024-05-31 20:00] VITALS: O2SAT 97
[2024-05-31 20:42] VITALS: BP 131/66; PULSE 102; RESP 18; TEMP 36.8; O2SAT 97
[2024-05-31] MEDS: FIDAXOMICIN 200 MG TABLET PO (20:48)
[2024-06-01] MEDS: SODIUM CHLORIDE 0.9% IV 1,000 ML 125 ML IV CONT (00:32)
[2024-06-01] MEDS: ACETAMINOPHEN 325 MG TABLET 650 MG PO ×2 (00:57→17:20)
[2024-06-01] MEDS: LORazepam (*CRX) 1 MG TABLET PO (00:58)
[2024-06-01 05:04] VITALS: BP 93/56; PULSE 84; RESP 16; TEMP 36.4; O2SAT 97
[2024-06-01 06:58] LABS: Basophils Absolute Auto 0.1 K/mm3 (0.0-0.1); Eosinophils Absolute Auto 0.3 K/mm3 (0-0.3); Hematocrit 25.1 % (37.0-47.0); Hemoglobin 7.4 g/dL (12.0-15.0); Immature Granulocyte Absolute 0.03 K/mm3 (0.00-0.031); Immature Granulocyte Percent A 0.5 % (0-0.5); Lymphocytes Absolute Auto 1.27 K/mm3 (0.9-3.2); Lymphocytes Percent Auto 21.9 % (18.3-44.2); Mean Corpuscular HGB Conc 29.5 g/dl (32-36); Mean Corpuscular Volume 81.5 fl (80-100); Mean Platelet Volume 9.3 fl (7.4-10.4); Monocytes Absolute Auto 0.7 K/mm3 (0.1-0.6); Monocytes Percent Auto 11.9 % (2.6-8.5); Neutrophils Absolute Auto 3.5 K/mm3 (1.3-6.7); Neutrophils Percent Auto 59.7 % (45.5-73.1); Nucleated Red Blood Cells Perc 0.3 % (0.0-0.2); Platelet Count Result 356 k/mm3 (150-375); Red Blood Count 3.08 M/mm3 (4.2-5.4); Red Cell Distribution Width 19.6 % (11.5-14.5); White Blood Count 5.8 K/mm3 (4.5-10.0)
[2024-06-01 07:09] LABS: Alanine Aminotransferase 14 U/L (6-35); Albumin Level 2.8 g/dL (3.5-5.1); Alkaline Phosphatase 88 U/L (38-126); Anion Gap 7 mmol/L (4-12); Aspartate Amino Transferase 19 U/L (14-36); Bilirubin,Total 0.4 mg/dL (0.2-1.3); Blood Urea Nitrogen 5 mg/dL (7-17); Calcium 8.4 mg/dL (8.4-10.2); Carbon Dioxide 23 mmol/L (22-30); Chloride 105 mmol/L (98-107); Estimated Glomerular Filt Rate > 60; Glucose 137 mg/dL (65-110); Potassium 3.3 mmol/L (3.4-5.0); Sodium 135 mmol/L (137-145)
[2024-06-01 07:50] LABS: Platelet Estimate Adequate (Adequate)
[2024-06-01 07:51] LABS: Anisocytosis 1+; Hypochromasia 1+; Schistocytes None Seen
[2024-06-01] MEDS: FERROUS SULFATE 325 MG TABLET DR PO ×2 (08:38→17:20)
[2024-06-01] MEDS: FIDAXOMICIN 200 MG TABLET PO ×2 (08:38→21:05)
[2024-06-01] MEDS: CHOLECALCIFEROL 1,000 UNITS TABLET 1000 UNITS PO (08:38)
[2024-06-01] MEDS: APIXABAN 5 MG TABLET PO (08:38)
[2024-06-01] MEDS: SACCHAROMYCES BOULARDII 250 MG CAPSULE PO ×3 (08:38→17:20)
[2024-06-01] MEDS: CYANOCOBALAMIN 1,000 MCG TABLET 1000 MCG BY MOUTH (08:38)
[2024-06-01] MEDS: ACIDOPHILUS/BULGARICUS CHEWABLE TABLET 1 TABLET PO (08:38)
[2024-06-01] MEDS: POTASSIUM CHLORIDE 20 MEQ ER TABLET 40 MEQ PO (12:06)
--- NOTE | 2024-06-01 12:08 | P.PNGI_ITS ---
Progress Note: A&P Assessment and Plan (1) C. difficile diarrhea: Onset Date: ~04/01/24 Code(s): A04.72 - Enterocolitis due to Clostridium difficile, not specified as recurrent Status: Acute Assessment and Plan: Patient with recurrent C diff infection, doing better with initial doses of fidaxomicin.? Will continue same treatment and if in 48 hours she has a tendency to improve, can be discharged home on Dificid to complete 10 days.? Since this is a recurrent episode, Fecal microbiota spores (Vowst) is recommended after completion of Dificid course.? Will direct the discharging hospitalist team on the exact steps once discharged. Plan - Continue Dificid 200 mg biD - Pearson amount and quality of stool output Subjective Date/time seen: 06/01/24 12:08 Interval history: The patient feels better. She had 2 bowel movements this morning, more formed than yesterday, no abdominal pain, no fever. Exam Narrative: Abdomen: Soft, nontender, nondistended, no rebound. Bowel sounds present. The rest examination within normal limits. Objective Data Vital Signs Vital Signs: Vital Signs - 24 hr 05/31/24 14:00 05/31/24 20:00 05/31/24 20:42 Temperature 98.3 F 98.2 F Pulse Rate 108 H 102 H Respiratory Rate 16 18 Blood Pressure 106/71 131/66 Pulse Oximetry 100 97 97 Oxygen Delivery Room Air 06/01/24 05:04 06/01/24 08:00 Temperature 97.5 F L Pulse Rate 84 Respiratory Rate 16 Blood Pressure 93/56 L Pulse Oximetry 97 Oxygen Delivery Room Air Intake/Output Intake/Output: Intake & Output 05/29/24 05/30/24 05/31/24 06/01/24 23:59 23:59 23:59 23:59 Intake Total 1100 2790 670 Balance 1100 2790 670 Meds/Results Medications: Active Medications Generic Name Dose Route Start Last Admin Trade Name Freq PRN Reason Stop Dose Admin Acetaminophen 650 mg 05/30/24 15:45 06/01/24 00:57 Acetaminophen 325 Mg Tablet PO 650 mg Q4H PRN Administration Mild Pain (1-3) or Fever Apixaban 5 mg 05/30/24 23:15 06/01/24 08:38 Apixaban 5 Mg Tablet PO 5 mg Q12HR CEE Administration Atorvastatin Calcium 20 mg 05/30/24 23:15 05/31/24 20:48 Atorvastatin 20 Mg Tablet PO 20 mg QHS CEE Administration Cyanocobalamin 1,000 mcg 05/31/24 09:00 06/01/24 08:38 Cyanocobalamin 1,000 Mcg Tablet BY MOUTH 1,000 mcg DAILY CEE Administration Ferrous Sulfate 325 mg 05/31/24 09:00 06/01/24 08:38 Ferrous Sulfate [address] PO 325 mg BID CEE Administration Fidaxomicin 200 mg 05/31/24 21:00 06/01/24 08:38 Fidaxomicin 200 Mg Tablet PO 200 mg Q12HR CEE Administration Sodium Chloride 1,000 mls @ 125 mls/hr 05/30/24 15:45 06/01/24 00:32 Normal Saline Iv IV CONT 125 mls/hr .Q8H CEE Administration Lactobacillus Acidophilus 1 tablet 05/31/24 09:00 06/01/24 08:38 Acidophilus/Bulgaricus Chewable Tablet PO 1 tablet DAILY CEE Administration Lorazepam 1 mg 05/30/24 22:50 06/01/24 00:58 Lorazepam (*Crx) 1 Mg Tablet PO 1 mg BID PRN Administration Anxiety Ondansetron HCl 4 mg 05/30/24 15:45 Ondansetron Inj 4 Mg/2 Ml Vial IV PUSH Q4H PRN Nausea Saccharomyces Boulardii 250 mg 05/31/24 17:00 06/01/24 12:07 Saccharomyces Boulardii 250 Mg Capsule PO 250 mg TID CEE Administration Vitamin D 1,000 units 05/31/24 09:00 06/01/24 08:38 Cholecalciferol 1,000 Units Tablet PO 1,000 units DAILY CEE Administration Radiology Results: ITS Impressions Abdomen/Pelvis CT 05/30/24 14:34 IMPRESSION: 1. Distal colitis most likely infectious or inflammatory in etiology. 2. Interval progression of mild intra and extra hepatic biliary ductal dilation likely related to prior cholecystectomy. No evident obstructing stone or mass but would correlate with liver function tests. If clinically indicated this could be further evaluated with MRCP. Knee X-Ray 05/31/24 06:12 Impression: No acute abnormality. Minimal degenerative spurring. Head CT 05/31/24 06:27 Impression: No intracranial hemorrhage, mass, or acute infarct. Mild generalized atrophy. Labs Labs: Laboratory Results - last 24 hr 06/01/24 06:03 WBC 5.8 RBC 3.08 L Hgb 7.4 L Hct 25.1 L MCV 81.5 D MCH 24.0 L MCHC 29.5 L RDW 19.6 H Plt Count 356 MPV 9.3 Immature Gran % (Auto) 0.5 Neut % (Auto) 59.7 Lymph % (Auto) 21.9 Morrison % (Auto) 11.9 H Eos % (Auto) 5.0 H Baso % (Auto) 1.0 Lymph # (Auto) 1.27 Morrison # (Auto) 0.7 H Eos # (Auto) 0.3 Baso # (Auto) 0.1 Abs Immat Gran (auto) 0.03 Absolute Neuts (auto) 3.5 Absolute Nucleated RBC 0.020 H Band Neutrophils % Not Reportable Nucleated RBC % 0.3 H Platelet Estimate Adequate Hypochromasia 1+ Anisocytosis 1+ Schistocytes None seen Sodium 135 L Potassium 3.3 L Chloride 105 Carbon Dioxide 23 Anion Gap 7 BUN 5 L Creatinine 0.61 L Estim Creat Clear Calc Not Reportable Estimated GFR > 60 Glucose 137 H Calcium 8.4 Magnesium 2.0 Total Bilirubin 0.4 AST 19 ALT 14 Alkaline Phosphatase 88 Total Protein 5.0 L Albumin 2.8 L
--- NOTE | 2024-06-01 12:48 | PM.IMPN ---
Progress Note: A&P Assessment and Plan (1) C. difficile colitis: Code(s): A04.72 - Enterocolitis due to Clostridium difficile, not specified as recurrent Status: Acute (2) Iron deficiency anemia: Qualifiers: Iron deficiency anemia type: unspecified iron deficiency Qualified Code(s): D50.9 - Iron deficiency anemia, unspecified Code(s): D50.9 - Iron deficiency anemia, unspecified Status: Chronic (3) Hypertension: Qualifiers: Hypertension type: primary hypertension Qualified Code(s): I10 - Essential (primary) hypertension Code(s): I10 - Essential (primary) hypertension Status: Chronic Plan 64 y/o F presents here with diarrhea with PMH of iron deficiency anemia, diverticulitis, C diff (03/2024-05/2024), melanoma s/p excision, TIA, anxiety, hyperlipidemia, and hypertension. The patient presents here from home for further evaluation of ongoing diarrhea for the past 3 months. She was initially seen on 03/27/[address] at that time showed sigmoid diverticulitis, 15 mm intramural abscess, and new thrombophlebitis of the sigmoid mesenteric veins. She was started on heparin and treated with Zosyn and metronidazole. During her admission she tested positive for C diff on 04/01/2024. She was then discharged home on 04/08/2024 with Augmentin for the diverticulitis/intramural abscess and vancomycin for the C diff. She was retested later on 04/29/2024 which again showed positive C diff. she was then given a course of Dificid 200 mg b.i.d. times 10 days. She was then retested again on 05/27/2024 and she was again positive for C diff. the patient's PCP encouraged her to seek care at the emergency department for treatment. She is currently denies fever and body aches. Endorsing chills and intermittent abdominal pain, none currently. Initial VS at presentation: 97.3? F, HR 105, R 20, 108/70, and 100% on RA. ED workup showed: No leukocytosis, hemoglobin 8.6 (previously 10.7 on 04/12/2024, however baseline appears to be closer to 8 more recently), INR 1.8, no significant electrolyte derangements, creatinine 0.89 and GFR >60, lactic 1.3. Head CT showed normal aging brain and no fracture or acute intracranial process. CT of the abdomen/pelvis showed distal colitis most likely infectious or inflammatory in etiology and interval progression the mid intra and extrahepatic biliary duct dilation likely secondary to prior cholecystectomy with no evidence of obstructing stone or mass. Recurrent C diff infection. Started on vancomycin oral added metronidazole. Fluid resuscitation. GI has been consulted. May to vancomycin taper. After discussion with GI switched to fidaxomicin. Continue to monitor bowel movement. Iron deficiency anemia Hypertension History of diverticulitis Melanoma status post excision History of TIA Anxiety Hypertension Hyperlipidemia Recent sigmoid mesenteric vein thrombophlebitis anticoagulation Diet: Heart healthy GI Prophylaxis: Not currently indicated DVT Prophylaxis: Eliquis will hold a Eliquis has H&H low Lines: Peripheral Code Status: Full code Subjective Date/time seen: 06/01/24 12:48 Interval history: No overnight events. Diarrhea still persist but slowing down per patient. Review of Systems Review of Systems: All systems reviewed & are unremarkable except as noted in HPI and below Exam Narrative: GENERAL: Fatigued-appearing, well-nourished, and in no acute distress. HEAD: Normocephalic, resolving bruise left forehead. ENT: Mucous membranes moist. NECK: Supple. CHEST: Clear to auscultation. No respiratory distress. HEART: Tachycardic and regular. Normal peripheral pulses. ABDOMEN: Soft, mild bilateral lower quadrant abdominal discomfort without guarding, nondistended. EXTREMITIES: Normal range of motion. No edema. SKIN: Warm, dry, no rash. NEURO: Alert and oriented x3. PSYCH: Normal mood and affect. Objective Data Vital Signs Vital Signs: Vital Signs - 24 hr 05/31/24 14:00 05/31/24 20:00 05/31/24 20:42 Temperature 98.3 F 98.2 F Pulse Rate 108 H 102 H Respiratory Rate 16 18 Blood Pressure 106/71 131/66 Pulse Oximetry 100 97 97 Oxygen Delivery Room Air 06/01/24 05:04 06/01/24 08:00 Temperature 97.5 F L Pulse Rate 84 Respiratory Rate 16 Blood Pressure 93/56 L Pulse Oximetry 97 Oxygen Delivery Room Air Intake/Output Intake/Output: Intake & Output 05/29/24 05/30/24 05/31/24 06/01/24 23:59 23:59 23:59 23:59 Intake Total 1100 2790 670 Balance 1100 2790 670 Meds/Results Medications: Active Medications Generic Name Dose Route Start Last Admin Trade Name Freq PRN Reason Stop Dose Admin Acetaminophen 650 mg 05/30/24 15:45 06/01/24 00:57 Acetaminophen 325 Mg Tablet PO 650 mg Q4H PRN Administration Mild Pain (1-3) or Fever Apixaban 5 mg 05/30/24 23:15 06/01/24 08:38 Apixaban 5 Mg Tablet PO 5 mg Q12HR CEE Administration Atorvastatin Calcium 20 mg 05/30/24 23:15 05/31/24 20:48 Atorvastatin 20 Mg Tablet PO 20 mg QHS CEE Administration Cyanocobalamin 1,000 mcg 05/31/24 09:00 06/01/24 08:38 Cyanocobalamin 1,000 Mcg Tablet BY MOUTH 1,000 mcg DAILY CEE Administration Ferrous Sulfate 325 mg 05/31/24 09:00 06/01/24 08:38 Ferrous Sulfate [address] PO 325 mg BID CEE Administration Fidaxomicin 200 mg 05/31/24 21:00 06/01/24 08:38 Fidaxomicin 200 Mg Tablet PO 200 mg Q12HR CEE Administration Sodium Chloride 1,000 mls @ 125 mls/hr 05/30/24 15:45 06/01/24 00:32 Normal Saline Iv IV CONT 125 mls/hr .Q8H CEE Administration Lactobacillus Acidophilus 1 tablet 05/31/24 09:00 06/01/24 08:38 Acidophilus/Bulgaricus Chewable Tablet PO 1 tablet DAILY CEE Administration Lorazepam 1 mg 05/30/24 22:50 06/01/24 00:58 Lorazepam (*Crx) 1 Mg Tablet PO 1 mg BID PRN Administration Anxiety Ondansetron HCl 4 mg 05/30/24 15:45 Ondansetron Inj 4 Mg/2 Ml Vial IV PUSH Q4H PRN Nausea Saccharomyces Boulardii 250 mg 05/31/24 17:00 06/01/24 12:07 Saccharomyces Boulardii 250 Mg Capsule PO 250 mg TID CEE Administration Vitamin D 1,000 units 05/31/24 09:00 06/01/24 08:38 Cholecalciferol 1,000 Units Tablet PO 1,000 units DAILY CEE Administration Radiology Results: ITS Impressions Abdomen/Pelvis CT 05/30/24 14:34 IMPRESSION: 1. Distal colitis most likely infectious or inflammatory in etiology. 2. Interval progression of mild intra and extra hepatic biliary ductal dilation likely related to prior cholecystectomy. No evident obstructing stone or mass but would correlate with liver function tests. If clinically indicated this could be further evaluated with MRCP. Knee X-Ray 05/31/24 06:12 Impression: No acute abnormality. Minimal degenerative spurring. Head CT 05/31/24 06:27 Impression: No intracranial hemorrhage, mass, or acute infarct. Mild generalized atrophy. Labs Labs: Laboratory Results - last 24 hr 06/01/24 06:03 WBC 5.8 RBC 3.08 L Hgb 7.4 L Hct 25.1 L MCV 81.5 D MCH 24.0 L MCHC 29.5 L RDW 19.6 H Plt Count 356 MPV 9.3 Immature Gran % (Auto) 0.5 Neut % (Auto) 59.7 Lymph % (Auto) 21.9 Yates % (Auto) 11.9 H Eos % (Auto) 5.0 H Baso % (Auto) 1.0 Lymph # (Auto) 1.27 Yates # (Auto) 0.7 H Eos # (Auto) 0.3 Baso # (Auto) 0.1 Abs Immat Gran (auto) 0.03 Absolute Neuts (auto) 3.5 Absolute Nucleated RBC 0.020 H Band Neutrophils % Not Reportable Nucleated RBC % 0.3 H Platelet Estimate Adequate Hypochromasia 1+ Anisocytosis 1+ Schistocytes None seen Sodium 135 L Potassium 3.3 L Chloride 105 Carbon Dioxide 23 Anion Gap 7 BUN 5 L Creatinine 0.61 L Estim Creat Clear Calc Not Reportable Estimated GFR > 60 Glucose 137 H Calcium 8.4 Magnesium 2.0 Total Bilirubin 0.4 AST 19 ALT 14 Alkaline Phosphatase 88 Total Protein 5.0 L Albumin 2.8 L
[2024-06-01 14:00] VITALS: BP 106/64; PULSE 100; RESP 18; TEMP 36.8; O2SAT 100
[2024-06-01 20:57] VITALS: BP 118/66; PULSE 85; RESP 16; TEMP 37.1; O2SAT 96
[2024-06-01] MEDS: ATORVASTATIN 20 MG TABLET PO (21:04)
[2024-06-01] MEDS: FAMOTIDINE 20 MG TABLET PO (21:05)
[2024-06-02] MEDS: SODIUM CHLORIDE 0.9% IV 1,000 ML 125 ML IV CONT (04:25)
[2024-06-02 05:19] VITALS: BP 130/76; PULSE 89; RESP 16; TEMP 36.4; O2SAT 99
[2024-06-02 06:41] LABS: Basophils Absolute Auto 0.1 K/mm3 (0.0-0.1); Basophils Percent Auto 1.3 % (0.2-1.2); Eosinophils Absolute Auto 0.4 K/mm3 (0-0.3); Eosinophils Percent Auto 8.2 % (0-4.4); Hematocrit 24.6 % (37.0-47.0); Hemoglobin 7.1 g/dL (12.0-15.0); Immature Granulocyte Absolute 0.03 K/mm3 (0.00-0.031); Immature Granulocyte Percent A 0.6 % (0-0.5); Lymphocytes Absolute Auto 1.37 K/mm3 (0.9-3.2); Lymphocytes Percent Auto 29.7 % (18.3-44.2); Mean Corpuscular HGB Conc 28.9 g/dl (32-36); Mean Corpuscular Hemoglobin 23.5 pg (26-34); Mean Corpuscular Volume 81.5 fl (80-100); Mean Platelet Volume 8.9 fl (7.4-10.4); Monocytes Absolute Auto 0.5 K/mm3 (0.1-0.6); Neutrophils Absolute Auto 2.3 K/mm3 (1.3-6.7); Neutrophils Percent Auto 49.2 % (45.5-73.1); Platelet Count Result 372 k/mm3 (150-375); Red Blood Count 3.02 M/mm3 (4.2-5.4); Red Cell Distribution Width 19.2 % (11.5-14.5); White Blood Count 4.6 K/mm3 (4.5-10.0)
[2024-06-02 06:50] LABS: Alanine Aminotransferase 12 U/L (6-35); Albumin Level 2.6 g/dL (3.5-5.1); Alkaline Phosphatase 85 U/L (38-126); Anion Gap 7 mmol/L (4-12); Aspartate Amino Transferase 17 U/L (14-36); Bilirubin,Total 0.3 mg/dL (0.2-1.3); Blood Urea Nitrogen 3 mg/dL (7-17); Calcium 8.5 mg/dL (8.4-10.2); Carbon Dioxide 24 mmol/L (22-30); Chloride 107 mmol/L (98-107); Estimated Glomerular Filt Rate > 60; Glucose 91 mg/dL (65-110); Sodium 138 mmol/L (137-145)
[2024-06-02 07:42] LABS: Anisocytosis 1+; Hypochromasia 1+; Ovalocytes 1+; Platelet Estimate Adequate (Adequate)
[2024-06-02 07:43] LABS: Burr Cells 1+; Schistocytes None Seen
[2024-06-02] MEDS: ACIDOPHILUS/BULGARICUS CHEWABLE TABLET 1 TABLET PO (08:20)
[2024-06-02] MEDS: FAMOTIDINE 20 MG TABLET PO ×2 (08:20→20:43)
[2024-06-02] MEDS: FIDAXOMICIN 200 MG TABLET PO ×2 (08:20→20:43)
[2024-06-02] MEDS: FERROUS SULFATE 325 MG TABLET DR PO ×2 (08:20→16:49)
[2024-06-02] MEDS: SACCHAROMYCES BOULARDII 250 MG CAPSULE PO ×3 (08:20→16:49)
[2024-06-02] MEDS: CHOLECALCIFEROL 1,000 UNITS TABLET 1000 UNITS PO (08:20)
[2024-06-02] MEDS: CYANOCOBALAMIN 1,000 MCG TABLET 1000 MCG BY MOUTH (08:20)
--- NOTE | 2024-06-02 12:22 | P.PNGI_ITS ---
Progress Note: A&P Assessment and Plan (1) Recurrent Clostridioides difficile diarrhea: Code(s): A04.71 - Enterocolitis due to Clostridium difficile, recurrent Status: Acute Assessment and Plan: The patient is currently on the third day of fidaxomicin 200 mg twice daily for recurrent C diff infection. She is showing a favorable clinical response to treatment. Pending continued improvement, discharge on the current fidaxomicin regimen will be considered, with plans to transition to Vowst therapy as discussed yesterday. Subjective Date/time seen: 06/02/24 12:22 Interval history: Patient continues to do well. She had a total of 4 bowel movements yesterday, semi solid, no abdominal pain, no fever. Review of Systems Review of Systems: All systems reviewed & are unremarkable except as noted in HPI and below Exam Narrative: GENERAL: Fatigued-appearing, well-nourished, and in no acute distress. HEAD: Normocephalic, resolving bruise left forehead. ENT: Mucous membranes moist. NECK: Supple. CHEST: Clear to auscultation. No respiratory distress. HEART: Tachycardic and regular. Normal peripheral pulses. ABDOMEN: Soft, mild bilateral lower quadrant abdominal discomfort without guarding, nondistended. EXTREMITIES: Normal range of motion. No edema. SKIN: Warm, dry, no rash. NEURO: Alert and oriented x3. PSYCH: Normal mood and affect. Objective Data Vital Signs Vital Signs: Vital Signs - 24 hr 06/01/24 14:00 06/01/24 20:00 06/01/24 20:57 Temperature 98.2 F 98.7 F Pulse Rate 100 85 Respiratory Rate 18 16 Blood Pressure 106/64 118/66 Pulse Oximetry 100 96 Oxygen Delivery Room Air 06/02/24 05:19 06/02/24 08:00 Temperature 97.6 F Pulse Rate 89 Respiratory Rate 16 Blood Pressure 130/76 Pulse Oximetry 99 Oxygen Delivery Room Air Intake/Output Intake/Output: Intake & Output 05/30/24 05/31/24 06/01/24 06/02/24 23:59 23:59 23:59 23:59 Intake Total 1100 2790 1910 1026 Balance 1100 2790 1910 1026 Meds/Results Medications: Active Medications Generic Name Dose Route Start Last Admin Trade Name Freq PRN Reason Stop Dose Admin Acetaminophen 650 mg 05/30/24 15:45 06/01/24 17:20 Acetaminophen 325 Mg Tablet PO 650 mg Q4H PRN Administration Mild Pain (1-3) or Fever Apixaban 5 mg 05/30/24 23:15 06/01/24 08:38 Apixaban 5 Mg Tablet PO 5 mg Q12HR CEE Administration Atorvastatin Calcium 20 mg 05/30/24 23:15 06/01/24 21:04 Atorvastatin 20 Mg Tablet PO 20 mg QHS CEE Administration Cyanocobalamin 1,000 mcg 05/31/24 09:00 06/02/24 08:20 Cyanocobalamin 1,000 Mcg Tablet BY MOUTH 1,000 mcg DAILY CEE Administration Famotidine 20 mg 06/01/24 21:00 06/02/24 08:20 Famotidine 20 Mg Tablet PO 20 mg Q12HR CEE Administration Ferrous Sulfate 325 mg 05/31/24 09:00 06/02/24 08:20 Ferrous Sulfate [address] PO 325 mg BID CEE Administration Fidaxomicin 200 mg 05/31/24 21:00 06/02/24 08:20 Fidaxomicin 200 Mg Tablet PO 200 mg Q12HR CEE Administration Sodium Chloride 1,000 mls @ 125 mls/hr 05/30/24 15:45 06/02/24 04:25 Normal Saline Iv IV CONT 125 mls/hr .Q8H CEE Administration Lactobacillus Acidophilus 1 tablet 05/31/24 09:00 06/02/24 08:20 Acidophilus/Bulgaricus Chewable Tablet PO 1 tablet DAILY CEE Administration Lorazepam 1 mg 05/30/24 22:50 06/01/24 00:58 Lorazepam (*Crx) 1 Mg Tablet PO 1 mg BID PRN Administration Anxiety Ondansetron HCl 4 mg 05/30/24 15:45 Ondansetron Inj 4 Mg/2 Ml Vial IV PUSH Q4H PRN Nausea Saccharomyces Boulardii 250 mg 05/31/24 17:00 06/02/24 08:20 Saccharomyces Boulardii 250 Mg Capsule PO 250 mg TID CEE Administration Vitamin D 1,000 units 05/31/24 09:00 06/02/24 08:20 Cholecalciferol 1,000 Units Tablet PO 1,000 units DAILY CEE Administration Radiology Results: ITS Impressions Abdomen/Pelvis CT 05/30/24 14:34 IMPRESSION: 1. Distal colitis most likely infectious or inflammatory in etiology. 2. Interval progression of mild intra and extra hepatic biliary ductal dilation likely related to prior cholecystectomy. No evident obstructing stone or mass but would correlate with liver function tests. If clinically indicated this could be further evaluated with MRCP. Knee X-Ray 05/31/24 06:12 Impression: No acute abnormality. Minimal degenerative spurring. Head CT 05/31/24 06:27 Impression: No intracranial hemorrhage, mass, or acute infarct. Mild generalized atrophy. Labs Labs: Laboratory Results - last 24 hr 06/02/24 06:23 WBC 4.6 RBC 3.02 L Hgb 7.1 L Hct 24.6 L MCV 81.5 MCH 23.5 L MCHC 28.9 L RDW 19.2 H Plt Count 372 MPV 8.9 Immature Gran % (Auto) 0.6 H Neut % (Auto) 49.2 Lymph % (Auto) 29.7 Jackson % (Auto) 11.0 H Eos % (Auto) 8.2 H Baso % (Auto) 1.3 H Lymph # (Auto) 1.37 Jackson # (Auto) 0.5 Eos # (Auto) 0.4 H Baso # (Auto) 0.1 Abs Immat Gran (auto) 0.03 Absolute Neuts (auto) 2.3 Absolute Nucleated RBC 0.000 Band Neutrophils % Not Reportable Nucleated RBC % 0.0 Platelet Estimate Adequate Hypochromasia 1+ Anisocytosis 1+ Ovalocytes 1+ [place] Cells 1+ Schistocytes None seen Sodium 138 Potassium 4.0 Chloride 107 Carbon Dioxide 24 Anion Gap 7 BUN 3 L Creatinine 0.58 L Estim Creat Clear Calc Not Reportable Estimated GFR > 60 Glucose 91 Calcium 8.5 Magnesium 2.0 Total Bilirubin 0.3 AST 17 ALT 12 Alkaline Phosphatase 85 Total Protein 5.0 L Albumin 2.6 L
--- NOTE | 2024-06-02 12:53 | P.PNIM_ITS ---
Progress Note: A&P Assessment and Plan (1) C. difficile colitis: Code(s): A04.72 - Enterocolitis due to Clostridium difficile, not specified as recurrent Status: Acute (2) Iron deficiency anemia: Qualifiers: Iron deficiency anemia type: unspecified iron deficiency Qualified Code(s): D50.9 - Iron deficiency anemia, unspecified Code(s): D50.9 - Iron deficiency anemia, unspecified Status: Chronic (3) Hypertension: Qualifiers: Hypertension type: primary hypertension Qualified Code(s): I10 - Essential (primary) hypertension Code(s): I10 - Essential (primary) hypertension Status: Chronic Plan 64 y/o F presents here with diarrhea with PMH of iron deficiency anemia, diverticulitis, C diff (03/2024-05/2024), melanoma s/p excision, TIA, anxiety, hyperlipidemia, and hypertension. The patient presents here from home for further evaluation of ongoing diarrhea for the past 3 months. She was initially seen on 03/27/[address] at that time showed sigmoid diverticulitis, 15 mm intramural abscess, and new thrombophlebitis of the sigmoid mesenteric veins. She was started on heparin and treated with Zosyn and metronidazole. During her admission she tested positive for C diff on 04/01/2024. She was then discharged home on 04/08/2024 with Augmentin for the diverticulitis/intramural abscess and vancomycin for the C diff. She was retested later on 04/29/2024 which again showed positive C diff. she was then given a course of Dificid 200 mg b.i.d. times 10 days. She was then retested again on 05/27/2024 and she was again positive for C diff. the patient's PCP encouraged her to seek care at the emergency department for treatment. She is currently denies fever and body aches. Endorsing chills and intermittent abdominal pain, none currently. Initial VS at presentation: 97.3? F, HR 105, R 20, 108/70, and 100% on RA. ED workup showed: No leukocytosis, hemoglobin 8.6 (previously 10.7 on 04/12/2024, however baseline appears to be closer to 8 more recently), INR 1.8, no significant electrolyte derangements, creatinine 0.89 and GFR >60, lactic 1.3. Head CT showed normal aging brain and no fracture or acute intracranial process. CT of the abdomen/pelvis showed distal colitis most likely infectious or inflammatory in etiology and interval progression the mid intra and extrahepatic biliary duct dilation likely secondary to prior cholecystectomy with no evidence of obstructing stone or mass. Recurrent C diff infection. Started on vancomycin oral added metronidazole. Fluid resuscitation. GI has been consulted. May to vancomycin taper. After discussion with GI switched to fidaxomicin. Continue to monitor bowel movement. Improving slowly on fidaxomicin. Will stop IV fluid today Iron deficiency anemia Hypertension History of diverticulitis Melanoma status post excision History of TIA Anxiety Hypertension Hyperlipidemia Recent sigmoid mesenteric vein thrombophlebitis anticoagulation since March 2024 with ongoing anemia stopped apixaban repeat CT with no evidence of thrombosis Diet: Heart healthy GI Prophylaxis: Not currently indicated DVT Prophylaxis: Eliquis will hold a Eliquis has H&H low Lines: Peripheral Code Status: Full code Subjective Date/time seen: 06/02/24 12:53 Interval history: Bowel movement is slowing down per patient. It is also getting thicker. No abdominal pain nausea vomiting Review of Systems Review of Systems: All systems reviewed & are unremarkable except as noted in HPI and below Exam Narrative: GENERAL: Fatigued-appearing, well-nourished, and in no acute distress. HEAD: Normocephalic, resolving bruise left forehead. ENT: Mucous membranes moist. NECK: Supple. CHEST: Clear to auscultation. No respiratory distress. HEART: Regular rate and rhythm Normal peripheral pulses. ABDOMEN: Soft, mild bilateral lower quadrant abdominal discomfort without guarding, nondistended. EXTREMITIES: Normal range of motion. No edema. SKIN: Warm, dry, no rash. NEURO: Alert and oriented x3. PSYCH: Normal mood and affect. Objective Data Vital Signs Vital Signs: Vital Signs - 24 hr 06/01/24 14:00 06/01/24 20:00 06/01/24 20:57 Temperature 98.2 F 98.7 F Pulse Rate 100 85 Respiratory Rate 18 16 Blood Pressure 106/64 118/66 Pulse Oximetry 100 96 Oxygen Delivery Room Air 06/02/24 05:19 06/02/24 08:00 Temperature 97.6 F Pulse Rate 89 Respiratory Rate 16 Blood Pressure 130/76 Pulse Oximetry 99 Oxygen Delivery Room Air Intake/Output Intake/Output: Intake & Output 03/2005/31/24 06/01/24 06/02/24 23:59 23:59 23:59 23:59 Intake Total 1100 2790 1910 1026 Balance 1100 2790 1910 1026 Meds/Results Medications: Active Medications Generic Name Dose Route Start Last Admin Trade Name Freq PRN Reason Stop Dose Admin Acetaminophen 650 mg 05/30/24 15:45 06/01/24 17:20 Acetaminophen 325 Mg Tablet PO 650 mg Q4H PRN Administration Mild Pain (1-3) or Fever Apixaban 5 mg 05/30/24 23:15 06/01/24 08:38 Apixaban 5 Mg Tablet PO 5 mg Q12HR CEE Administration Atorvastatin Calcium 20 mg 05/30/24 23:15 06/01/24 21:04 Atorvastatin 20 Mg Tablet PO 20 mg QHS CEE Administration Cyanocobalamin 1,000 mcg 05/31/24 09:00 06/02/24 08:20 Cyanocobalamin 1,000 Mcg Tablet BY MOUTH 1,000 mcg DAILY CEE Administration Famotidine 20 mg 06/01/24 21:00 06/02/24 08:20 Famotidine 20 Mg Tablet PO 20 mg Q12HR CEE Administration Ferrous Sulfate 325 mg 05/31/24 09:00 06/02/24 08:20 Ferrous Sulfate [address] PO 325 mg BID CEE Administration Fidaxomicin 200 mg 05/31/24 21:00 06/02/24 08:20 Fidaxomicin 200 Mg Tablet PO 200 mg Q12HR CEE Administration Sodium Chloride 1,000 mls @ 125 mls/hr 05/30/24 15:45 06/02/24 04:25 Normal Saline Iv IV CONT 125 mls/hr .Q8H CEE Administration Lactobacillus Acidophilus 1 tablet 05/31/24 09:00 06/02/24 08:20 Acidophilus/Bulgaricus Chewable Tablet PO 1 tablet DAILY CEE Administration Lorazepam 1 mg 05/30/24 22:50 06/01/24 00:58 Lorazepam (*Crx) 1 Mg Tablet PO 1 mg BID PRN Administration Anxiety Ondansetron HCl 4 mg 05/30/24 15:45 Ondansetron Inj 4 Mg/2 Ml Vial IV PUSH Q4H PRN Nausea Saccharomyces Boulardii 250 mg 05/31/24 17:00 06/02/24 12:34 Saccharomyces Boulardii 250 Mg Capsule PO 250 mg TID CEE Administration Vitamin D 1,000 units 05/31/24 09:00 06/02/24 08:20 Cholecalciferol 1,000 Units Tablet PO 1,000 units DAILY CEE Administration Radiology Results: ITS Impressions Abdomen/Pelvis CT 05/30/24 14:34 IMPRESSION: 1. Distal colitis most likely infectious or inflammatory in etiology. 2. Interval progression of mild intra and extra hepatic biliary ductal dilation likely related to prior cholecystectomy. No evident obstructing stone or mass but would correlate with liver function tests. If clinically indicated this could be further evaluated with MRCP. Knee X-Ray 05/31/24 06:12 Impression: No acute abnormality. Minimal degenerative spurring. Head CT 05/31/24 06:27 Impression: No intracranial hemorrhage, mass, or acute infarct. Mild generalized atrophy. Labs Labs: Laboratory Results - last 24 hr 06/02/24 06:23 WBC 4.6 RBC 3.02 L Hgb 7.1 L Hct 24.6 L MCV 81.5 MCH 23.5 L MCHC 28.9 L RDW 19.2 H Plt Count 372 MPV 8.9 Immature Gran % (Auto) 0.6 H Neut % (Auto) 49.2 Lymph % (Auto) 29.7 [place] % (Auto) 11.0 H Eos % (Auto) 8.2 H Baso % (Auto) 1.3 H Lymph # (Auto) 1.37 [place] # (Auto) 0.5 Eos # (Auto) 0.4 H Baso # (Auto) 0.1 Abs Immat Gran (auto) 0.03 Absolute Neuts (auto) 2.3 Absolute Nucleated RBC 0.000 Band Neutrophils % Not Reportable Nucleated RBC % 0.0 Platelet Estimate Adequate Hypochromasia 1+ Anisocytosis 1+ Ovalocytes 1+ [place] Cells 1+ Schistocytes None seen Sodium 138 Potassium 4.0 Chloride 107 Carbon Dioxide 24 Anion Gap 7 BUN 3 L Creatinine 0.58 L Estim Creat Clear Calc Not Reportable Estimated GFR > 60 Glucose 91 Calcium 8.5 Magnesium 2.0 Total Bilirubin 0.3 AST 17 ALT 12 Alkaline Phosphatase 85 Total Protein 5.0 L Albumin 2.6 L
[2024-06-02 13:58] VITALS: BP 123/82; PULSE 91; RESP 18; TEMP 36.8; O2SAT 100
[2024-06-02] MEDS: ATORVASTATIN 20 MG TABLET PO (20:43)
[2024-06-02 21:53] VITALS: BP 131/75; PULSE 92; RESP 16; TEMP 36.4; O2SAT 100
[2024-06-03 05:19] VITALS: BP 123/84; PULSE 93; RESP 16; TEMP 36.1; O2SAT 95
[2024-06-03 05:58] LABS: Basophils Absolute Auto 0.1 K/mm3 (0.0-0.1); Basophils Percent Auto 1.4 % (0.2-1.2); Eosinophils Absolute Auto 0.5 K/mm3 (0-0.3); Eosinophils Percent Auto 9.3 % (0-4.4); Hematocrit 26.6 % (37.0-47.0); Hemoglobin 7.6 g/dL (12.0-15.0); Immature Granulocyte Absolute 0.07 K/mm3 (0.00-0.031); Immature Granulocyte Percent A 1.4 % (0-0.5); Lymphocytes Absolute Auto 1.82 K/mm3 (0.9-3.2); Lymphocytes Percent Auto 37.6 % (18.3-44.2); Mean Corpuscular HGB Conc 28.6 g/dl (32-36); Mean Corpuscular Hemoglobin 22.9 pg (26-34); Mean Corpuscular Volume 80.1 fl (80-100); Mean Platelet Volume 9.2 fl (7.4-10.4); Monocytes Absolute Auto 0.4 K/mm3 (0.1-0.6); Monocytes Percent Auto 8.9 % (2.6-8.5); Neutrophils Percent Auto 41.4 % (45.5-73.1); Platelet Count Result 479 k/mm3 (150-375); Red Blood Count 3.32 M/mm3 (4.2-5.4); Red Cell Distribution Width 19.2 % (11.5-14.5); White Blood Count 4.8 K/mm3 (4.5-10.0)
[2024-06-03 06:14] LABS: Alanine Aminotransferase 14 U/L (6-35); Albumin Level 3.1 g/dL (3.5-5.1); Alkaline Phosphatase 90 U/L (38-126); Anion Gap 6 mmol/L (4-12); Aspartate Amino Transferase 20 U/L (14-36); Bilirubin,Total 0.2 mg/dL (0.2-1.3); Blood Urea Nitrogen 6 mg/dL (7-17); Calcium 9.3 mg/dL (8.4-10.2); Carbon Dioxide 30 mmol/L (22-30); Chloride 103 mmol/L (98-107); Estimated Glomerular Filt Rate > 60; Glucose 99 mg/dL (65-110); Magnesium 2.1 mg/dL (1.6-2.3); Potassium 4.2 mmol/L (3.4-5.0); Sodium 139 mmol/L (137-145)
[2024-06-03 06:26] LABS: Anisocytosis 1+; Burr Cells 1+; Hypochromasia 1+; Ovalocytes 1+; Platelet Estimate Increased (Adequate); Schistocytes Rare
[2024-06-03 08:00] VITALS: O2SAT 95
[2024-06-03] MEDS: FAMOTIDINE 20 MG TABLET PO ×2 (09:08→21:10)
[2024-06-03] MEDS: SACCHAROMYCES BOULARDII 250 MG CAPSULE PO ×3 (09:08→16:20)
[2024-06-03] MEDS: CYANOCOBALAMIN 1,000 MCG TABLET 1000 MCG BY MOUTH (09:08)
[2024-06-03] MEDS: FIDAXOMICIN 200 MG TABLET PO ×2 (09:08→21:10)
[2024-06-03] MEDS: CHOLECALCIFEROL 1,000 UNITS TABLET 1000 UNITS PO (09:08)
[2024-06-03] MEDS: ACIDOPHILUS/BULGARICUS CHEWABLE TABLET 1 TABLET PO (09:08)
[2024-06-03] MEDS: FERROUS SULFATE 325 MG TABLET DR PO ×2 (09:08→16:20)
[2024-06-03 14:00] VITALS: BP 124/71; PULSE 88; RESP 16; TEMP 36.3; O2SAT 99
--- NOTE | 2024-06-03 14:09 | P.PNIM_ITS ---
Progress Note: A&P Assessment and Plan (1) C. difficile colitis: Code(s): A04.72 - Enterocolitis due to Clostridium difficile, not specified as recurrent Status: Acute (2) Iron deficiency anemia: Qualifiers: Iron deficiency anemia type: unspecified iron deficiency Qualified Code(s): D50.9 - Iron deficiency anemia, unspecified Code(s): D50.9 - Iron deficiency anemia, unspecified Status: Chronic (3) Hypertension: Qualifiers: Hypertension type: primary hypertension Qualified Code(s): I10 - Essential (primary) hypertension Code(s): I10 - Essential (primary) hypertension Status: Chronic Plan 64 y/o F presents here with diarrhea with PMH of iron deficiency anemia, diverticulitis, C diff (03/2024-05/2024), melanoma s/p excision, TIA, anxiety, hyperlipidemia, and hypertension. The patient presents here from home for further evaluation of ongoing diarrhea for the past 3 months. She was initially seen on 03/27/[address] at that time showed sigmoid diverticulitis, 15 mm intramural abscess, and new thrombophlebitis of the sigmoid mesenteric veins. She was started on heparin and treated with Zosyn and metronidazole. During her admission she tested positive for C diff on 04/01/2024. She was then discharged home on 04/08/2024 with Augmentin for the diverticulitis/intramural abscess and vancomycin for the C diff. She was retested later on 04/29/2024 which again showed positive C diff. she was then given a course of Dificid 200 mg b.i.d. times 10 days. She was then retested again on 05/27/2024 and she was again positive for C diff. the patient's PCP encouraged her to seek care at the emergency department for treatment. She is currently denies fever and body aches. Endorsing chills and intermittent abdominal pain, none currently. Initial VS at presentation: 97.3? F, HR 105, R 20, 108/70, and 100% on RA. ED workup showed: No leukocytosis, hemoglobin 8.6 (previously 10.7 on 04/12/2024, however baseline appears to be closer to 8 more recently), INR 1.8, no significant electrolyte derangements, creatinine 0.89 and GFR >60, lactic 1.3. Head CT showed normal aging brain and no fracture or acute intracranial process. CT of the abdomen/pelvis showed distal colitis most likely infectious or inflammatory in etiology and interval progression the mid intra and extrahepatic biliary duct dilation likely secondary to prior cholecystectomy with no evidence of obstructing stone or mass. Recurrent C diff infection. Started on vancomycin oral added metronidazole. Fluid resuscitation. GI has been consulted. May to vancomycin taper. After discussion with GI switched to fidaxomicin. Continue to monitor bowel movement. Improving slowly on fidaxomicin. IV fluids stopped. Iron deficiency anemia Hypertension History of diverticulitis Melanoma status post excision History of TIA Anxiety Hypertension Hyperlipidemia Recent sigmoid mesenteric vein thrombophlebitis anticoagulation since March 2024 with ongoing anemia stopped apixaban repeat CT with no evidence of thrombosis. Will consult Oncology Diet: Heart healthy GI Prophylaxis: Not currently indicated DVT Prophylaxis: Eliquis will hold a Eliquis has H&H low in potentially discontinue completely Lines: Peripheral Code Status: Full code Subjective Date/time seen: 06/03/24 14:09 Interval history: Diarrhea slowed down. Feels ready to go home. Labs reviewed. No nausea vomiting. Review of Systems Review of Systems: All systems reviewed & are unremarkable except as noted in HPI and below Exam Narrative: GENERAL: Well appearing, well-nourished, and in no acute distress. HEAD: Normocephalic, resolving bruise left forehead. ENT: Mucous membranes moist. NECK: Supple. CHEST: Clear to auscultation. No respiratory distress. HEART: Regular rate and rhythm Normal peripheral pulses. ABDOMEN: Soft, nontender, nondistended. EXTREMITIES: Normal range of motion. No edema. SKIN: Warm, dry, no rash. NEURO: Alert and oriented x3. PSYCH: Normal mood and affect. Objective Data Vital Signs Vital Signs: Vital Signs - 24 hr 06/02/24 21:53 06/03/24 05:19 06/03/24 08:00 Temperature 97.6 F 97.0 F L Pulse Rate 92 93 Respiratory Rate 16 16 Blood Pressure 131/75 123/84 Pulse Oximetry 100 95 95 Oxygen Delivery Room Air Intake/Output Intake/Output: Intake & Output 05/31/24 06/01/24 06/02/24 06/03/24 23:59 23:59 23:59 23:59 Intake Total 2790 1910 3006 600 Output Total 500 Balance 2790 1910 3006 100 Meds/Results Medications: Active Medications Generic Name Dose Route Start Last Admin Trade Name Freq PRN Reason Stop Dose Admin Acetaminophen 650 mg 05/30/24 15:45 06/01/24 17:20 Acetaminophen 325 Mg Tablet PO 650 mg Q4H PRN Administration Mild Pain (1-3) or Fever Apixaban 5 mg 05/30/24 23:15 06/01/24 08:38 Apixaban 5 Mg Tablet PO 5 mg Q12HR CEE Administration Atorvastatin Calcium 20 mg 05/30/24 23:15 06/02/24 20:43 Atorvastatin 20 Mg Tablet PO 20 mg QHS CEE Administration Cyanocobalamin 1,000 mcg 05/31/24 09:00 06/03/24 09:08 Cyanocobalamin 1,000 Mcg Tablet BY MOUTH 1,000 mcg DAILY CEE Administration Famotidine 20 mg 06/01/24 21:00 06/03/24 09:08 Famotidine 20 Mg Tablet PO 20 mg Q12HR CEE Administration Ferrous Sulfate 325 mg 05/31/24 09:00 06/03/24 09:08 Ferrous Sulfate [address] PO 325 mg BID CEE Administration Fidaxomicin 200 mg 05/31/24 21:00 06/03/24 09:08 Fidaxomicin 200 Mg Tablet PO 200 mg Q12HR CEE Administration Lactobacillus Acidophilus 1 tablet 05/31/24 09:00 06/03/24 09:08 Acidophilus/Bulgaricus Chewable Tablet PO 1 tablet DAILY CEE Administration Lorazepam 1 mg 05/30/24 22:50 06/01/24 00:58 Lorazepam (*Crx) 1 Mg Tablet PO 1 mg BID PRN Administration Anxiety Ondansetron HCl 4 mg 05/30/24 15:45 Ondansetron Inj 4 Mg/2 Ml Vial IV PUSH Q4H PRN Nausea Saccharomyces Boulardii 250 mg 05/31/24 17:00 06/03/24 12:40 Saccharomyces Boulardii 250 Mg Capsule PO 250 mg TID CEE Administration Vitamin D 1,000 units 05/31/24 09:00 06/03/24 09:08 Cholecalciferol 1,000 Units Tablet PO 1,000 units DAILY CEE Administration Radiology Results: ITS Impressions Abdomen/Pelvis CT 05/30/24 14:34 IMPRESSION: 1. Distal colitis most likely infectious or inflammatory in etiology. 2. Interval progression of mild intra and extra hepatic biliary ductal dilation likely related to prior cholecystectomy. No evident obstructing stone or mass but would correlate with liver function tests. If clinically indicated this could be further evaluated with MRCP. Knee X-Ray 05/31/24 06:12 Impression: No acute abnormality. Minimal degenerative spurring. Head CT 05/31/24 06:27 Impression: No intracranial hemorrhage, mass, or acute infarct. Mild generalized atrophy. Labs Labs: Laboratory Results - last 24 hr 06/03/24 05:32 WBC 4.8 RBC 3.32 L Hgb 7.6 L Hct 26.6 L MCV 80.1 MCH 22.9 L MCHC 28.6 L RDW 19.2 H Plt Count 479 H MPV 9.2 Immature Gran % (Auto) 1.4 H Neut % (Auto) 41.4 L Lymph % (Auto) 37.6 [place] % (Auto) 8.9 H Eos % (Auto) 9.3 H Baso % (Auto) 1.4 H Lymph # (Auto) 1.82 [place] # (Auto) 0.4 Eos # (Auto) 0.5 H Baso # (Auto) 0.1 Abs Immat Gran (auto) 0.07 H Absolute Neuts (auto) 2.0 Absolute Nucleated RBC 0.050 H Band Neutrophils % Not Reportable Nucleated RBC % 1.0 H Platelet Estimate Increased Hypochromasia 1+ Anisocytosis 1+ Ovalocytes 1+ [place] Cells 1+ Schistocytes Rare Sodium 139 Potassium 4.2 Chloride 103 Carbon Dioxide 30 Anion Gap 6 BUN 6 L Creatinine 0.67 L Estim Creat Clear Calc Not Reportable Estimated GFR > 60 Glucose 99 Calcium 9.3 Magnesium 2.1 Total Bilirubin 0.2 AST 20 ALT 14 Alkaline Phosphatase 90 Total Protein 6.0 L Albumin 3.1 L
[2024-06-03 14:42] LABS: Iron 16 ug/dL (37-170)
[2024-06-03 14:52] LABS: Percent Iron Saturation 5 % (20-50)
[2024-06-03 14:57] VITALS: O2SAT 99
--- NOTE | 2024-06-03 15:28 | P.PNGI_ITS ---
Progress Note: A&P Assessment and Plan (1) C. difficile diarrhea: Onset Date: ~04/01/24 Code(s): A04.72 - Enterocolitis due to Clostridium difficile, not specified as recurrent Status: Acute Assessment and Plan: The patient exhibited a favorable clinical response to fidaxomicin therapy for recurrent C difficile infection. She is deemed medically appropriate for di [facility] to complete the prescribed 10-day fidaxomicin regimen, 200 mg orally twice daily. The discharge plan, as discussed with the on-call hospitalist, includes the initiation of Vowst for recurrence prophylaxis, 2-4 days after completing the fidaxomicin course. In the event of insurance denial for Vowst, the patient is instructed to contact our office for assistance with prior authorization and alternative management strategies Plan - Complete 10 days of Fidaxomycin 200 mg bid - After 2-4 days of Fidaxomycin completion, give a Bottle of Mg Citrate the evening prior to initiating Vowst - Vowst should be taken on an empty stomach, 4 capsules at once, for 3 days. Wait at least 1 hour after Vowst to take breakfast. Subjective Date/time seen: 06/03/24 15:28 Interval history: Patient doing much better. She only had 2 semi solid bowel movement yesterday. No abdominal pain, no fever. Exam Narrative: Abdomen: Soft, nontender, nondistended. Bowel sounds present. Rest of examination within normal limits. Objective Data Vital Signs Vital Signs: Vital Signs - 24 hr 06/02/24 21:53 06/03/24 05:19 06/03/24 08:00 Temperature 97.6 F 97.0 F L Pulse Rate 92 93 Respiratory Rate 16 16 Blood Pressure 131/75 123/84 Pulse Oximetry 100 95 95 Oxygen Delivery Room Air 06/03/24 14:00 06/03/24 14:57 Temperature 97.3 F L Pulse Rate 88 Respiratory Rate 16 Blood Pressure 124/71 Pulse Oximetry 99 99 Oxygen Delivery Room Air Intake/Output Intake/Output: Intake & Output 05/31/24 06/01/24 06/02/24 06/03/24 23:59 23:59 23:59 23:59 Intake Total 2790 1910 3006 600 Output Total 500 Balance 2790 1910 3006 100 Meds/Results Medications: Active Medications Generic Name Dose Route Start Last Admin Trade Name Freq PRN Reason Stop Dose Admin Acetaminophen 650 mg 05/30/24 15:45 06/01/24 17:20 Acetaminophen 325 Mg Tablet PO 650 mg Q4H PRN Administration Mild Pain (1-3) or Fever Apixaban 5 mg 05/30/24 23:15 06/01/24 08:38 Apixaban 5 Mg Tablet PO 5 mg Q12HR CEE Administration Atorvastatin Calcium 20 mg 05/30/24 23:15 06/02/24 20:43 Atorvastatin 20 Mg Tablet PO 20 mg QHS CEE Administration Cyanocobalamin 1,000 mcg 05/31/24 09:00 06/03/24 09:08 Cyanocobalamin 1,000 Mcg Tablet BY MOUTH 1,000 mcg DAILY CEE Administration Famotidine 20 mg 06/01/24 21:00 06/03/24 09:08 Famotidine 20 Mg Tablet PO 20 mg Q12HR CEE Administration Ferrous Sulfate 325 mg 05/31/24 09:00 06/03/24 09:08 Ferrous Sulfate [address] PO 325 mg BID CEE Administration Fidaxomicin 200 mg 05/31/24 21:00 06/03/24 09:08 Fidaxomicin 200 Mg Tablet PO 200 mg Q12HR CEE Administration Lactobacillus Acidophilus 1 tablet 05/31/24 09:00 06/03/24 09:08 Acidophilus/Bulgaricus Chewable Tablet PO 1 tablet DAILY CEE Administration Lorazepam 1 mg 05/30/24 22:50 06/01/24 00:58 Lorazepam (*Crx) 1 Mg Tablet PO 1 mg BID PRN Administration Anxiety Ondansetron HCl 4 mg 05/30/24 15:45 Ondansetron Inj 4 Mg/2 Ml Vial IV PUSH Q4H PRN Nausea Saccharomyces Boulardii 250 mg 05/31/24 17:00 06/03/24 12:40 Saccharomyces Boulardii 250 Mg Capsule PO 250 mg TID CEE Administration Vitamin D 1,000 units 05/31/24 09:00 06/03/24 09:08 Cholecalciferol 1,000 Units Tablet PO 1,000 units DAILY CEE Administration Radiology Results: ITS Impressions Abdomen/Pelvis CT 05/30/24 14:34 IMPRESSION: 1. Distal colitis most likely infectious or inflammatory in etiology. 2. Interval progression of mild intra and extra hepatic biliary ductal dilation likely related to prior cholecystectomy. No evident obstructing stone or mass but would correlate with liver function tests. If clinically indicated this could be further evaluated with MRCP. Knee X-Ray 05/31/24 06:12 Impression: No acute abnormality. Minimal degenerative spurring. Head CT 05/31/24 06:27 Impression: No intracranial hemorrhage, mass, or acute infarct. Mild generalized atrophy. Labs Labs: Laboratory Results - last 24 hr 06/03/24 06/03/24 05:26 05:32 WBC 4.8 RBC 3.32 L Hgb 7.6 L Hct 26.6 L MCV 80.1 MCH 22.9 L MCHC 28.6 L RDW 19.2 H Plt Count 479 H MPV 9.2 Immature Gran % (Auto) 1.4 H Neut % (Auto) 41.4 L Lymph % (Auto) 37.6 [place] % (Auto) 8.9 H Eos % (Auto) 9.3 H Baso % (Auto) 1.4 H Lymph # (Auto) 1.82 [place] # (Auto) 0.4 Eos # (Auto) 0.5 H Baso # (Auto) 0.1 Abs Immat Gran (auto) 0.07 H Absolute Neuts (auto) 2.0 Absolute Nucleated RBC 0.050 H Band Neutrophils % Not Reportable Nucleated RBC % 1.0 H Platelet Estimate Increased Hypochromasia 1+ Anisocytosis 1+ Ovalocytes 1+ [place] Cells 1+ Schistocytes Rare Sodium 139 Potassium 4.2 Chloride 103 Carbon Dioxide 30 Anion Gap 6 BUN 6 L Creatinine 0.67 L Estim Creat Clear Calc Not Reportable Estimated GFR > 60 Glucose 99 Calcium 9.3 Magnesium 2.1 Iron 16 L TIBC 312 % Saturation 5 L Ferritin 28.90 Total Bilirubin 0.2 AST 20 ALT 14 Alkaline Phosphatase 90 Total Protein 6.0 L Albumin 3.1 L
--- NOTE | 2024-06-03 15:35 | WPDGIPROGNO ---
Progress Note: A&P Assessment and Plan (1) Iron deficiency anemia: Code(s): D50.9 - Iron deficiency anemia, unspecified Status: Acute Assessment and Plan: The patient is also noticed to have iron deficiency anemia as per labs drawn today. Since she is currently in the middle of treatment for C difficile, it is prudent to finish the Dificid course as delineated in prior note, and bring her back for elective colonscopy and EGD for the investigation of anemia in around 3 weeks. Plan - Will place order for colonoscopy and EGD for 3 weeks Subjective Date/time seen: 06/03/24 15:35 Objective Data Vital Signs Vital Signs: Vital Signs - 24 hr 06/02/24 21:53 06/03/24 05:19 06/03/24 08:00 Temperature 97.6 F 97.0 F L Pulse Rate 92 93 Respiratory Rate 16 16 Blood Pressure 131/75 123/84 Pulse Oximetry 100 95 95 Oxygen Delivery Room Air 06/03/24 14:00 06/03/24 14:57 Temperature 97.3 F L Pulse Rate 88 Respiratory Rate 16 Blood Pressure 124/71 Pulse Oximetry 99 99 Oxygen Delivery Room Air Intake/Output Intake/Output: Intake & Output 05/31/24 06/01/24 06/02/24 06/03/24 23:59 23:59 23:59 23:59 Intake Total 2790 1910 3006 600 Output Total 500 Balance 2790 1910 3006 100 Meds/Results Medications: Active Medications Generic Name Dose Route Start Last Admin Trade Name Freq PRN Reason Stop Dose Admin Acetaminophen 650 mg 05/30/24 15:45 06/01/24 17:20 Acetaminophen 325 Mg Tablet PO 650 mg Q4H PRN Administration Mild Pain (1-3) or Fever Apixaban 5 mg 05/30/24 23:15 06/01/24 08:38 Apixaban 5 Mg Tablet PO 5 mg Q12HR CEE Administration Atorvastatin Calcium 20 mg 05/30/24 23:15 06/02/24 20:43 Atorvastatin 20 Mg Tablet PO 20 mg QHS CEE Administration Cyanocobalamin 1,000 mcg 05/31/24 09:00 06/03/24 09:08 Cyanocobalamin 1,000 Mcg Tablet BY MOUTH 1,000 mcg DAILY CEE Administration Famotidine 20 mg 06/01/24 21:00 06/03/24 09:08 Famotidine 20 Mg Tablet PO 20 mg Q12HR CEE Administration Ferrous Sulfate 325 mg 05/31/24 09:00 06/03/24 09:08 Ferrous Sulfate [address] PO 325 mg BID CEE Administration Fidaxomicin 200 mg 05/31/24 21:00 06/03/24 09:08 Fidaxomicin 200 Mg Tablet PO 200 mg Q12HR CEE Administration Lactobacillus Acidophilus 1 tablet 05/31/24 09:00 06/03/24 09:08 Acidophilus/Bulgaricus Chewable Tablet PO 1 tablet DAILY ECE Administration Lorazepam 1 mg 05/30/24 22:50 06/01/24 00:58 Lorazepam (*Crx) 1 Mg Tablet PO 1 mg BID PRN Administration Anxiety Ondansetron HCl 4 mg 05/30/24 15:45 Ondansetron Inj 4 Mg/2 Ml Vial IV PUSH Q4H PRN Nausea Saccharomyces Boulardii 250 mg 05/31/24 17:00 06/03/24 12:40 Saccharomyces Boulardii 250 Mg Capsule PO 250 mg TID CEE Administration Vitamin D 1,000 units 05/31/24 09:00 06/03/24 09:08 Cholecalciferol 1,000 Units Tablet PO 1,000 units DAILY CEE Administration Radiology Results: ITS Impressions Abdomen/Pelvis CT 05/30/24 14:34 IMPRESSION: 1. Distal colitis most likely infectious or inflammatory in etiology. 2. Interval progression of mild intra and extra hepatic biliary ductal dilation likely related to prior cholecystectomy. No evident obstructing stone or mass but would correlate with liver function tests. If clinically indicated this could be further evaluated with MRCP. Knee X-Ray 05/31/24 06:12 Impression: No acute abnormality. Minimal degenerative spurring. Head CT 05/31/24 06:27 Impression: No intracranial hemorrhage, mass, or acute infarct. Mild generalized atrophy. Labs Labs: Laboratory Results - last 24 hr 06/03/24 06/03/24 05:26 05:32 WBC 4.8 RBC 3.32 L Hgb 7.6 L Hct 26.6 L MCV 80.1 MCH 22.9 L MCHC 28.6 L RDW 19.2 H Plt Count 479 H MPV 9.2 Immature Gran % (Auto) 1.4 H Neut % (Auto) 41.4 L Lymph % (Auto) 37.6 Bennett % (Auto) 8.9 H Eos % (Auto) 9.3 H Baso % (Auto) 1.4 H Lymph # (Auto) 1.82 Bennett # (Auto) 0.4 Eos # (Auto) 0.5 H Baso # (Auto) 0.1 Abs Immat Gran (auto) 0.07 H Absolute Neuts (auto) 2.0 Absolute Nucleated RBC 0.050 H Band Neutrophils % Not Reportable Nucleated RBC % 1.0 H Platelet Estimate Increased Hypochromasia 1+ Anisocytosis 1+ Ovalocytes 1+ [place] Cells 1+ Schistocytes Rare Sodium 139 Potassium 4.2 Chloride 103 Carbon Dioxide 30 Anion Gap 6 BUN 6 L Creatinine 0.67 L Estim Creat Clear Calc Not Reportable Estimated GFR > 60 Glucose 99 Calcium 9.3 Magnesium 2.1 Iron 16 L TIBC 312 % Saturation 5 L Ferritin 28.90 Total Bilirubin 0.2 AST 20 ALT 14 Alkaline Phosphatase 90 Total Protein 6.0 L Albumin 3.1 L
[2024-06-03 15:52] LABS: Folic Acid 6.6 ng/mL (2.76->20); Vitamin B12 > 1000.0 pg/mL (239-931)
[2024-06-03] MEDS: IRON SUCROSE COMPLEX 200 MG in SODIUM CHLORIDE 0.9% IV 100 ML 220 MG IVPB (16:20)
[2024-06-03] MEDS: ACETAMINOPHEN 325 MG TABLET 650 MG PO (21:10)
[2024-06-03] MEDS: LORazepam (*CRX) 1 MG TABLET PO (21:10)
[2024-06-03] MEDS: ATORVASTATIN 20 MG TABLET PO (21:14)
[2024-06-03 21:38] VITALS: BP 129/84; PULSE 86; RESP 20; TEMP 36.5; O2SAT 97
[2024-06-04 05:39] VITALS: BP 130/89; PULSE 86; RESP 16; TEMP 36.3; O2SAT 99
[2024-06-04 06:20] LABS: Basophils Absolute Auto 0.1 K/mm3 (0.0-0.1); Basophils Percent Auto 1.6 % (0.2-1.2); Eosinophils Absolute Auto 0.5 K/mm3 (0-0.3); Eosinophils Percent Auto 7.3 % (0-4.4); Hematocrit 29.6 % (37.0-47.0); Hemoglobin 8.6 g/dL (12.0-15.0); Immature Granulocyte Percent A 3.2 % (0-0.5); Lymphocytes Absolute Auto 2.12 K/mm3 (0.9-3.2); Lymphocytes Percent Auto 33.5 % (18.3-44.2); Mean Corpuscular HGB Conc 29.1 g/dl (32-36); Mean Corpuscular Hemoglobin 23.6 pg (26-34); Mean Corpuscular Volume 81.1 fl (80-100); Mean Platelet Volume 9.6 fl (7.4-10.4); Monocytes Absolute Auto 0.4 K/mm3 (0.1-0.6); Monocytes Percent Auto 6.5 % (2.6-8.5); Neutrophils Percent Auto 47.9 % (45.5-73.1); Nucleated Red Blood Cells Perc 1.4 % (0.0-0.2); Platelet Count Result 596 k/mm3 (150-375); Red Blood Count 3.65 M/mm3 (4.2-5.4); Red Cell Distribution Width 19.6 % (11.5-14.5); White Blood Count 6.3 K/mm3 (4.5-10.0)
[2024-06-04 06:29] LABS: Alanine Aminotransferase 16 U/L (6-35); Albumin Level 3.4 g/dL (3.5-5.1); Alkaline Phosphatase 98 U/L (38-126); Anion Gap 7 mmol/L (4-12); Aspartate Amino Transferase 23 U/L (14-36); Bilirubin,Total 0.3 mg/dL (0.2-1.3); Blood Urea Nitrogen 8 mg/dL (7-17); Calcium 9.3 mg/dL (8.4-10.2); Carbon Dioxide 28 mmol/L (22-30); Chloride 104 mmol/L (98-107); Estimated Glomerular Filt Rate > 60; Glucose 98 mg/dL (65-110); Magnesium 2.2 mg/dL (1.6-2.3); Potassium 4.4 mmol/L (3.4-5.0); Sodium 139 mmol/L (137-145)
[2024-06-04 07:02] LABS: Anisocytosis 1+; Hypochromasia 1+; Ovalocytes 2+; Platelet Estimate Increased (Adequate); Schistocytes Rare; Tear Drop Cells 1+
[2024-06-04] MEDS: CHOLECALCIFEROL 1,000 UNITS TABLET 1000 UNITS PO (08:28)
[2024-06-04] MEDS: SACCHAROMYCES BOULARDII 250 MG CAPSULE PO ×2 (08:28→12:29)
[2024-06-04] MEDS: FIDAXOMICIN 200 MG TABLET PO (08:28)
[2024-06-04] MEDS: CYANOCOBALAMIN 1,000 MCG TABLET 1000 MCG BY MOUTH (08:28)
[2024-06-04] MEDS: ACIDOPHILUS/BULGARICUS CHEWABLE TABLET 1 TABLET PO (08:28)
[2024-06-04] MEDS: FAMOTIDINE 20 MG TABLET PO (08:28)
[2024-06-04] MEDS: FERROUS SULFATE 325 MG TABLET DR PO (08:28)
--- NOTE | 2024-06-04 12:46 | P.CONONC_ITS ---
Assessment and Plan Assessment and plan (1) Iron deficiency anemia: Code(s): D50.9 - Iron deficiency anemia, unspecified Status: Acute Assessment and Plan: Iron deficiency anemia. Patient was diagnosed with previous mesenteric vein thrombosis and colitis. She was started on for thrombosis. She came back into the hospital with diarrhea and severe C diff colitis. She denies any bleeding including melena hematochezia. Iron deficiency anemia. Consultation noted and plan for EGD and colonoscopy after resolution of C diff colitis patient has received iron infusion slight improvement in hemoglobin. I have instructed her to take iron 65 mg twice a day with vitamin-C 500 mg daily I will see her back in the office in 2-3 weeks with repeat labs and for continuation of iron infusion if needed. HPI Data of Consult Date/Time: 06/04/24 12:46 Requesting Physician: Kortney Forde MD Primary Care Provider: Barbara Jordan MD Consult Narrative Narrative: Rosanna Johns is a 64 year old female history of acute infarction of intestine when she presented with abdominal discomfort back in March [address] scan showed worsening of sigmoid diverticulitis with 15 mm intramural abscess and new thrombophlebitis of sigmoid mesenteric vein. Thrombus extended into the inferior mesenteric vein and main portal vein. She was started on Eliquis. Currently she is feeling abdominal discomfort. Patient came back into the hospital with diarrhea further several days. She denies any melena hematochezia. CT came back positive. CT abdomen done on May distal colitis without evidence of thrombosis. She received iron infusion. Hemoglobin remains low at 8.6 but has improved from level of 7.4. She denies any other new complaints. Review of Systems 2 Review of Systems: Review of system as per HPI otherwise negative [facility] Past Medical History Medical History Iron deficiency anemia Diverticulitis large intestine (~03/27/24) C. difficile diarrhea (~04/01/24) Melanoma s/p excision Heart murmur Vitamin B12 deficiency Lumbar spondylosis COVID (~08/2021) History of TIA (transient ischemic attack) (~04/2021) Rhabdomyolysis (~04/2021) Anxiety Chronic lumbar pain Hyperlipidemia Hypertension Surgical History Surgical History History of appendectomy History of tonsillectomy (~1965) History of melanoma excision Left shoulder History of cervical spinal surgery (~2014) History of back surgery (~2019) Hx of cholecystectomy (Unknown) Family History Family History Mother Family history of elevated blood lipids Family history of emphysema Hypertension Grandparent Acute myocardial infarction Family history of malignant neoplasm of urinary bladder Father Patient's father is Dementia Sibling COPD (chronic obstructive pulmonary disease) Other Anxiety Depression Family history of chronic obstructive pulmonary disease Skin cancer Social History Social History Smoking packs per day: 1 Smoking cigarettes per day: 20.0 Years smoked: 3 Smoking pack-years: 3.00 Smoking status: Former smoker Second hand tobacco smoke exposure: No Alcohol intake: former Substance use: never Substance use type: does not use Do You Feel Safe in your Home?: No Lack of Transportation: No Lack of Food: Never True Current Housing: I Have Housing Concerned About Future Housing: No Difficulty Paying Gas/Electric Bills: No Difficulty Paying for Meds: No Currently Unemployed: No Education: High School Diploma/GED Difficulty w/ Childcare or Family Care: No Living arrangements: alone Gender identity (if verbalized by the patient): Female Spiritual care concerns: No Meds Home Medications and Allergies Home Medications ?Medication ?Instructions ?Recorded ?Confirmed ?Type cholecalciferol (vitamin D3) 25 25 mcg PO DAILY 04/06/21 05/30/24 History mcg (1,000 unit) capsule Lactobacills gasseri-Bifidobac 1 cap PO DAILY 04/25/21 05/30/24 History bifidum,longum 1.5 billion cell capsule ([email or web address]) cyanocobalamin (vitamin B-12) 1,000 mcg sublingual DAILY #90 tabs 07/22/21 05/30/24 Rx 1,000 mcg sublingual tablet atorvastatin 20 mg tablet 20 mg PO QHS #90 tabs 11/07/23 05/30/24 Rx lorazepam 1 mg tablet 1 mg PO BID PRN Anxiety #90 tabs 03/19/24 05/30/24 Rx ferrous sulfate 325 mg (65 mg 325 mg PO BID #180 tabs 04/08/24 05/30/24 Rx iron) tablet,delayed release losartan 50 mg tablet 50 mg PO DAILY 04/08/24 05/30/24 History apixaban 5 mg tablet (Eliquis) 5 mg PO Q12HR #120 tabs 04/29/24 05/30/24 Rx fidaxomicin 200 mg tablet (Dificid) 200 mg PO Q12HR #22 tabs 06/03/24 Rx fecal microbio spore,live-brpk 4 cap PO DAILY 3 days #12 caps 06/04/24 Rx (Vowst capsule) Allergies Allergy/AdvReac Type Severity Reaction Status Date / Time Sulfa (Sulfonamide AdvReac Mild Hives Verified 05/30/24 13:54 Antibiotics) sulfamethizole AdvReac Mild Hives Verified 05/30/24 13:54 sulfamethoxazole AdvReac Mild HIVES Verified 05/30/24 13:54 trimethoprim AdvReac Mild Hives Verified 05/30/24 13:54 Vital Signs Vital Signs - 24 hr 06/03/24 14:00 06/03/24 14:57 06/03/24 21:38 Temperature 36.3 C L 36.5 C Pulse Rate 88 86 Respiratory Rate 16 20 Blood Pressure 124/71 129/84 Pulse Oximetry 99 99 97 Oxygen Delivery Room Air 06/04/24 05:39 Temperature 36.3 C L Pulse Rate 86 Respiratory Rate 16 Blood Pressure 130/89 Pulse Oximetry 99 Oxygen Delivery Exam 2 Narrative: Lungs are clear to auscultation bilaterally Cardiovascular regular rate rhythm no murmurs Abdomen soft nontender nondistended Extremities no edema Results Labs 06/04/24 05:40 06/04/24 05:40 Labs: Short CBC 06/04/24 Range/Units 05:40 WBC 6.3 (4.5-10.0) K/mm3 Hgb 8.6 L (12.0-15.0) g/dL Hct 29.6 L (37.0-47.0) % Plt Count 596 H (150-375) k/mm3 BMP 06/04/24 05:40 Sodium 139 Potassium 4.4 Chloride 104 Carbon Dioxide 28 BUN 8 Creatinine 0.64 L Glucose 98 Calcium 9.3 Liver Function 06/04/24 Range/Units 05:40 Total Bilirubin 0.3 (0.2-1.3) mg/dL AST 23 (14-36) U/L ALT 16 (6-35) U/L Alkaline Phosphatase 98 (38-126) U/L Albumin 3.4 L (3.5-5.1) g/dL
--- NOTE | 2024-06-04 13:50 | P.DS_ITS ---
DS: Admitting Diagnosis Discharge Date 06/04/2024 Admitting Diagnosis Diarrhea DS: Discharge Diagnosis Discharge Diagnosis (1) C. difficile colitis: Code(s): A04.72 - Enterocolitis due to Clostridium difficile, not specified as recurrent Status: Acute (2) Iron deficiency anemia: Qualifiers: Iron deficiency anemia type: unspecified iron deficiency Qualified Code(s): D50.9 - Iron deficiency anemia, unspecified Code(s): D50.9 - Iron deficiency anemia, unspecified Status: Chronic (3) Hypertension: Qualifiers: Hypertension type: primary hypertension Qualified Code(s): I10 - Essential (primary) hypertension Code(s): I10 - Essential (primary) hypertension Status: Chronic DS: Summary Hospital Course Hospital Course: 64 y/o F presents here with diarrhea with PMH of iron deficiency anemia, diverticulitis, C diff (03/2024-05/2024), melanoma s/p excision, TIA, anxiety, hyperlipidemia, and hypertension. The patient presents here from home for further evaluation of ongoing diarrhea for the past 3 months. She was initially seen on 03/27/[address] at that time showed sigmoid diverticulitis, 15 mm intramural abscess, and new thrombophlebitis of the sigmoid mesenteric veins. She was started on heparin and treated with Zosyn and metronidazole. During her admission she tested positive for C diff on 04/01/2024. She was then discharged home on 04/08/2024 with Augmentin for the diverticulitis/intramural abscess and vancomycin for the C diff. She was retested later on 04/29/2024 which again showed positive C diff. she was then given a course of Dificid 200 mg b.i.d. times 10 days. She was then retested again on 05/27/2024 and she was again positive for C diff. the patient's PCP encouraged her to seek care at the emergency department for treatment. She is currently denies fever and body aches. Endorsing chills and intermittent abdominal pain, none currently. Initial VS at presentation: 97.3? F, HR 105, R 20, 108/70, and 100% on RA. ED workup showed: No leukocytosis, hemoglobin 8.6 (previously 10.7 on 04/12/2024, however baseline appears to be closer to 8 more recently), INR 1.8, no significant electrolyte derangements, creatinine 0.89 and GFR >60, lactic 1.3. Head CT showed normal aging brain and no fracture or acute intracranial process. CT of the abdomen/pelvis showed distal colitis most likely infectious or inflammatory in etiology and interval progression the mid intra and extrahepatic biliary duct dilation likely secondary to prior cholecystectomy with no evidence of obstructing stone or mass. Recurrent C diff infection. Started on vancomycin oral added metronidazole. Fluid resuscitation. GI has been consulted. May to vancomycin taper. After discussion with GI switched to fidaxomicin. Continue to monitor bowel movement. Improving slowly on fidaxomicin. IV fluids stopped. Complete 2 weeks course with fidaxomicin. Also discussed initiation of vowst after completion of fidaxomicin and will be ordered to specialty pharmacy. This might need to be authorized and hence if needed will be routed to GI office. Iron deficiency anemia received Venofer IV. Eliquis stopped. GI planning to do EGD colonoscopy as an outpatient basis in 2 3 weeks. Continue iron supplementation. History of diverticulitis Melanoma status post excision History of TIA Anxiety Hypertension on losartan at home blood pressure adequate will hold losartan at discharge. Follow-up with PCP for evaluation Hyperlipidemia Recent sigmoid mesenteric vein thrombophlebitis anticoagulation since March 2024 with ongoing anemia stopped apixaban repeat CT with no evidence of thrombosis. Consulted Oncology. Stop Eliquis Diet: Heart healthy GI Prophylaxis: Not currently indicated DVT Prophylaxis: Eliquis will hold a Eliquis has H&H low and hence discontinued completely Lines: Peripheral Code Status: Full code Time Spent with Patient Time attestation: Total time spent providing and/or coordinating discharge services: 35 minutes Exam Narrative: GENERAL: Well appearing, well-nourished, and in no acute distress. HEAD: Normocephalic, resolving bruise left forehead. ENT: Mucous membranes moist. NECK: Supple. CHEST: Clear to auscultation. No respiratory distress. HEART: Regular rate and rhythm Normal peripheral pulses. ABDOMEN: Soft, nontender, nondistended. EXTREMITIES: Normal range of motion. No edema. SKIN: Warm, dry, no rash. NEURO: Alert and oriented x3. PSYCH: Normal mood and affect. DS: Data Data Completed and Pending Labs on day of discharge: Labs from last 24 hours 06/04/24 06/03/24 05:40 05:26 WBC 6.3 RBC 3.65 L Hgb 8.6 L Hct 29.6 L MCV 81.1 MCH 23.6 L MCHC 29.1 L RDW 19.6 H Plt Count 596 H MPV 9.6 Immature Gran % (Auto) 3.2 H Neut % (Auto) 47.9 Lymph % (Auto) 33.5 Harper % (Auto) 6.5 Eos % (Auto) 7.3 H Baso % (Auto) 1.6 H Lymph # (Auto) 2.12 Harper # (Auto) 0.4 Eos # (Auto) 0.5 H Baso # (Auto) 0.1 Abs Immat Gran (auto) 0.20 H Absolute Neuts (auto) 3.0 Absolute Nucleated RBC 0.090 H Band Neutrophils % Not Reportable Nucleated RBC % 1.4 H Platelet Estimate Increased Hypochromasia 1+ Anisocytosis 1+ Tear Drop Cells 1+ Ovalocytes 2+ Schistocytes Rare Sodium 139 Potassium 4.4 Chloride 104 Carbon Dioxide 28 Anion Gap 7 BUN 8 Creatinine 0.64 L Estim Creat Clear Calc Not Reportable Estimated GFR > 60 Glucose 98 Calcium 9.3 Magnesium 2.2 Iron 16 L TIBC 312 % Saturation 5 L Ferritin 28.90 Total Bilirubin 0.3 AST 23 ALT 16 Alkaline Phosphatase 98 Total Protein 6.0 L Albumin 3.4 L Vitamin B12 > 1000.0 H Folate 6.6 Imaging Radiologist's impression: ITS Impressions Head CT 05/30/24 14:31 IMPRESSION: 1. Normal aging brain. No fracture or acute intracranial process. Abdomen/Pelvis CT 05/30/24 14:34 IMPRESSION: 1. Distal colitis most likely infectious or inflammatory in etiology. 2. Interval progression of mild intra and extra hepatic biliary ductal dilation likely related to prior cholecystectomy. No evident obstructing stone or mass but would correlate with liver function tests. If clinically indicated this could be further evaluated with MRCP. Knee X-Ray 05/31/24 06:11 Impression: Mild degenerative change, as above. Knee X-Ray 05/31/24 06:12 Impression: No acute abnormality. Minimal degenerative spurring. Head CT 05/31/24 06:27 Impression: No intracranial hemorrhage, mass, or acute infarct. Mild generalized atrophy. Discharge Plan Discharge Attending physician on discharge: Sandro Powers Consulting providers: Ramos Hamilton Discharging Clinician: Sandro Powers Anticipated Discharge Date/Time: 06/04/24 13:55 Patient Disposition: Home, Self-Care Activity: as tolerated Diet: regular Discharge Instructions: vowst ordered to specialty pharmacy. please check with the pharmacy regarding the status. you will start this in 3-4 days after you finish dificid. a night before you start vowst, you will take one botttle of magnesium citrate, which will be ordered as well follow up with GI for plans to get EGD and colonscopy performed due to ongoing anemia. stop eliquis bp medication on hold. recehck at home and follow up with pcp if losartan needs resumed again. Patient Instructions: Antibiotic Form Patient Language: Bolivian Stand Alone Forms: General Discharge Information Follow-up/Referrals: Ramos Hamilton MD [Physician] - 2 Weeks Ari Jordan MD [Primary Care Provider] - 1 Week Naveen Van MD [Physician] - 2 Weeks Discharge Medications: New Vowst Capsule 4 cap PO DAILY 3 Days Qty: 12 0RF Dificid 200 mg tablet 200 mg PO Q12H Qty: 20 0RF magnesium citrate [OneLAX Magnesium Citrate] Solution 150 ml PO ONCE Qty: 296 0RF Rx Instructions: as a single dose a night prior to start of vowst Continued ferrous sulfate 325 mg (65 mg iron) tablet,delayed release (DR/EC) 325 mg PO BID Qty: 180 0RF cholecalciferol (vitamin D3) 25 mcg (1,000 unit) capsule 25 mcg PO DAILY [place] 1.5 billion cell Capsule 1 cap PO DAILY cyanocobalamin (vitamin B-12) 1,000 mcg tablet, sublingual 1,000 mcg sublingual DAILY Qty: 90 2RF atorvastatin 20 mg tablet 20 mg PO QHS Qty: 90 1RF lorazepam 1 mg tablet 1 mg PO BID PRN (Reason: Anxiety) Qty: 90 1RF Discontinued losartan 50 mg tablet 50 mg PO DAILY Eliquis 5 mg tablet 5 mg PO Q12HR Qty: 120 0RF Other Ambulatory Orders: Complete Blood Count with Diff (Routine) Timeframe: 1 Week Location: Determined by Patient Ordered By: Sandro Powers Comprehensive Metabolic Panel (Routine) Timeframe: 1 Week Location: Determined by Patient Ordered By: Sandro Powers Date of admission: 05/31/24 09:19 Primary Care Provider: Ari Jordan Admitting Provider: Kortney Forde Attending physician on admission: Kortney Forde Condition: Stable
[2024-06-04 14:00] VITALS: BP 129/75; PULSE 100; RESP 20; TEMP 36.5; O2SAT 98
--- NOTE | 2024-06-10 10:23 | PC.NURSE ---
Received call from [facility] pharmacy regarding pt Vowst. PT needs to be on an antibiotic when she starts Vowst. E-mailed information to Dr. Powers to order antibiotic for pt.
== END 2024-06-04 14:35 | disposition home or self-care (01) | DRG 373 ==
LOC: ANHED 16:52 → ANH3MEDSUR 19:51
PROVIDERS: Internal Medicine Gastroenterology; Student in an Organized Health Care Education/Training Program; Admitting Provider Internal Medicine; Emergency Provider Emergency Medicine; PCP Family Medicine; Visit Provider Internal Medicine
DX: A04.71 Enterocolitis due to Clostridium difficile, recurrent (principal); D50.9 Iron deficiency anemia, unspecified; I10 Essential (primary) hypertension; E78.5 Hyperlipidemia, unspecified; F41.9 Anxiety disorder, unspecified; Z85.820 Personal history of malignant melanoma of skin; Z86.73 Personal history of transient ischemic attack (TIA), and cerebral infarction without residual deficits; Z90.49 Acquired absence of other specified parts of digestive tract; Z86.16 Personal history of COVID-19
CPT/HCPCS: 36415; 70450; 73564; 74177; 80048; 80053; 82607; 82728; 82746; 83540; 83550; 83605; 83735; 85025; 85610; 85730; 96361; 96365; 96366; 96375; 99285; A9270; G0378; J1756; J1836; J7030; Q9967

== ENCOUNTER 2024-07-17 14:13 | Outpatient (CLI) | payer MEDICARE, MEDICAID, SELFPAY ==
--- OUTSIDE RECORDS SUMMARY | 2024-07-17 14:25 | XMS_ITS | Clinical Summary ---
Author Organization [facility] Teenazdiana amanda Layla Address [address] [place] [address] Care Team Providers Care Button Puncher Name Role Phone Unavailable Primary Care Provider Unavailabl e Allergies Active Allergy Reactions Criticality Noted Date Comments Sulfamethoxazole-Trimethoprim Rash Low 2024 Medications losartan (COZAAR) 25 mg tablet Take 1 Tablet by mouth daily. 07/02/2024 Active atorvastatin (LIPITOR) 20 mg tablet Take 20 mg by mouth daily. Active Active Problems No known active problems Encounters Date Type Department Care Team Description 07/17/2024 1:30 PM CDT Office Visit [facility] Oncology and Hematology - [place] [address] [place] [address] Ramos Hamilton MD Chronic anemia (Primary Dx); Secondary hypercoagulable state from Last 3 Months Family History Medical History Relation Name Comments No Known Problems Brother 1 No Known Problems Brother 2 No Known Problems Child 1 No Known Problems Child 2 No Known Problems Father Heart Disease Mother No Known Problems Sister 1 No Known Problems Sister 2 No Known Problems Sister 3 Relation Name Status Comments Brother 1 Alive Brother 2 Alive Child 1 Alive Child 2 Alive Father Mother Alive Sister 1 Alive Sister 2 Alive Sister 3 Alive Social History Tobacco Use Types Packs/Day Years Used Date Smoking Tobacco: Never Smokeless Tobacco: Never Tobacco Cessation:Counseling Given: Not Answered Alcohol Use Standard Drinks/Week Comments Yes 0 (1 standard drink = 0.6 oz pur e alcohol) occasional Comments Unknown Sex and Gender Information Value Date Recorded Sex Assigned at Not on file 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 Gender Identity Not on file Sexual Orientation Not on file Last Filed Vital Signs Vital Sign Reading Time Taken Comments Blood Pressure 96/68 07/17/2024 1:25 PM CDT Pulse 98 07/17/2024 1:23 PM CDT Temperature 36.1 C (96.9 F) 07/17/2024 1:23 PM CDT Respiratory Rate 15 07/17/2024 1:23 PM CDT Oxygen Saturation 96% 07/17/2024 1:23 PM CDT Inhaled Oxygen Concentration - - Weight 61 kg (134 lb 6.4 oz) 07/17/2024 1:23 PM CDT Height 149.9 cm (4' 11) 07/17/2024 1:23 PM CDT Body Mass Index 27.15 07/17/2024 1:23 PM CDT Plan of Treatment Upcoming Encounters Date Type Department Care Team (Late st Contact Info) Description 07/31/2024 4:30 PM CDT Telephone Check Up [facility] Oncology and Hematology [facility] [address] [facility] [[email or web address] [address] [place] [address] Ramos Hamilton MD [address] [facility] [address] [place] [address] Health Maintenance Due Date [...] OSTEOPOROSIS SCREENING 2023 INFLUENZA VACCINE (#1) 2023 [place] Prev entative Visit/Annual Wellness Visit 03/13/2024 RSV VACCINE (60+ or ) (1 - 1-dose 75+ series) 2033 Insurance [facility] [id number]
--- OUTSIDE RECORDS SUMMARY | 2024-07-17 14:25 | XMS_ITS | Encounter Summary ---
Author Organization [facility] DIANA Leahy [facility] Address [address] [place] [address] Care Team Providers Care Stone Cleaner Name Role Phone Unavailable Primary Care Provider Unavailabl e Reason for Referral * Laboratory Services (Routine) - Open Specialty Diagnoses / Procedures Referred By Ankita t Referred To Contact Diagnoses Secondary hypercoagulable state Procedures PROTHROMBIN FACTOR II MUTATION ANALYSIS Ramos Hamilton MD [address] [facility] [address] [address] Phone: tel: fax: Referral ID Status Reason Start Date Expiration Date Visits Re quested Visits Authorized [id number] Open 07/17/2024 08/17/2025 1 1 * Laboratory Services (Routine) - Open Specialty Diagnoses / Procedures Referred By Ankita stein Referred To Contact Diagnoses Secondary hypercoagulable state Procedures FACTOR V LEIDEN MUTATION Ramos Hamilton MD [address] [facility] [address] [place] [phone] Phone: tel: fax: Referral ID Status Reason Start Date Expiration Date Visits Re quested Visits Authorized [id number] Open 07/17/2024 08/17/2025 1 1 Encounter Details Date Type Department Care Team (Late st Contact Info) Description 07/17/2024 1:30 PM CDT Office Visit [facility] Oncology and Hematology - [place] [address] [place] [phone] Ramos Hamilton MD [facility] [address] [place] [id number] Chronic anemia (Primary Dx); Secondary hypercoagulable state Social History Tobacco Use Types Packs/Day Years Used Date Smoking Tobacco: Never Smokeless Tobacco: Never Tobacco Cessation:Counseling Given: Not Answered Alcohol Use Standard Drinks/Week Comments Yes 0 (1 standard drink = 0.6 oz pur e alcohol) occasional Comments Unknown Sex and Gender Information Value Date Recorded Sex Assigned at Not on file 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 Gender Identity Not on file Sexual Orientation Not on file documented as of this encounter Last Filed Vital Signs Vital Sign Reading [...] Mass Index 27.15 07/17/2024 1:23 PM CDT documented in this encounter Plan of Treatment Upcoming Encounters Date Type Department Care Team (Late st Contact Info) Description 07/31/2024 4:30 PM CDT Telephone Check Up [facility] Oncology and Hematology - [place] [address] [facility] [address] [place] [id number] Ramos Hamilton MD [address] [facility] [address] [place] [address] Scheduled Orders Name Type Priority Associated Diagnoses Orde r Schedule CBC WITH DIFFERENTIAL Lab Stat Chronic anemia Expected: 07/17/2024, Expires: 07/17/2025 COMPREHENSIVE METABOLIC PANEL Lab Stat Chronic anemia Expected: 07/17/2024, Expires: 07/17/2025 FERRITIN Lab Routine Chronic anemia Expected: 07/17/2024, Expires: 07/17/2025 IRON, TIBC, AND PERCENT SATURATION Lab Routine Chronic anemia Expected: 07/17/2024, Expires: 07/17/2025 VITAMIN B12 AND FOLATE Lab Routine Chronic anemia Expected: 07/17/2024, Expires: 07/17/2025 LUPUS ANTICOAGULANT W/REFLEX CONFIRMATION Lab Routine Secondary hypercoagulable state Expected: 07/17/2024, Expires: 07/17/2025 HOMOCYSTEINE Lab Routine Secondary hypercoagulable state Expected: 07/17/2024, Expires: 07/17/2025 FACTOR V LEIDEN MUTATION Lab Routine Secondary hypercoagulable state Expected: 07/17/2024, Expires: 07/17/2025 BETA 2 GLYCOPROTEIN I ANTIBODIES Lab Routine Secondary hypercoagulable state Expected: 07/17/2024, Expires: 07/17/2025 ANTITHROMBIN III ACTIVITY Lab Routine Secondary hypercoagulable state Expected: 07/17/2024, Expires: 07/17/2025 PROTEIN C & S ACTIVITY Lab Routine Secondary hypercoagulable state Expected: 07/17/2024, Expires: 07/17/2025 PROTHROMBIN FACTOR II MUTATION ANALYSIS Lab Routine Secondary hypercoagulable state Expected: 07/17/2024, Expires: 07/17/2025 documented as of this encounter Visit Diagnoses Diagnosis Chronic anemia- Primary Anemia, unspecified Secondary hypercoagulable state documented in this encounter
--- OUTSIDE RECORDS SUMMARY | 2024-07-17 14:25 | XMS_ITS | Clinical Summary ---
Author Organization [facility] Address [address] [place] [address] Care Team Providers Care Meter Calibrator Name Role Phone BlayneRebaa TEO Primary Care Provider [phone] Social History Tobacco Use Types Packs/Day Years [...] 1 - Tdap) 1977 Mammogram Screening 1998 Pneumococcal Vaccine: 50+ Ye ars (1 of 1 - PCV) 02/01/2008 Zoster Vaccines (1 of 2) 02/01/2008 Annual Medicare Wellness Visit 2023 Dexa Scan (General) 2023 COVID-19 Vaccine ( - 2023-2 5 season) 2023 RSV Immunization or 60+ Years (1 [...] difficile 04/02/2018 04/02/2018 Insurance [employer] Care Teams Meter Calibrator Relationship Specialty Start Date End Date Gill [place] [address] PCP - General NURSE PRACTITIONER 02/01/21
[2024-07-17 14:59] LABS: Basophils Absolute Auto 0.1 K/mm3 (0.0-0.1); Basophils Percent Auto 1.2 % (0.2-1.2); Eosinophils Absolute Auto 0.3 K/mm3 (0-0.3); Eosinophils Percent Auto 4.8 % (0-4.4); Hemoglobin 12.8 g/dL (12.0-15.0); Immature Granulocyte Absolute 0.02 K/mm3 (0.00-0.031); Immature Granulocyte Percent A 0.3 % (0-0.5); Lymphocytes Absolute Auto 1.93 K/mm3 (0.9-3.2); Lymphocytes Percent Auto 27.8 % (18.3-44.2); Mean Corpuscular HGB Conc 31.2 g/dl (32-36); Mean Corpuscular Hemoglobin 26.1 pg (26-34); Mean Corpuscular Volume 83.5 fl (80-100); Mean Platelet Volume 9.3 fl (7.4-10.4); Monocytes Absolute Auto 0.5 K/mm3 (0.1-0.6); Monocytes Percent Auto 6.6 % (2.6-8.5); Neutrophils Absolute Auto 4.1 K/mm3 (1.3-6.7); Neutrophils Percent Auto 59.3 % (45.5-73.1); Platelet Count Result 303 k/mm3 (150-375); Red Blood Count 4.91 M/mm3 (4.2-5.4); Red Cell Distribution Width 19.7 % (11.5-14.5); White Blood Count 6.9 K/mm3 (4.5-10.0)
[2024-07-17 17:31] LABS: Iron 251 ug/dL (37-170)
[2024-07-17 17:33] LABS: Alanine Aminotransferase 40 U/L (6-35); Albumin Level 4.7 g/dL (3.5-5.1); Alkaline Phosphatase 72 U/L (38-126); Anion Gap 8 mmol/L (4-12); Aspartate Amino Transferase 42 U/L (14-36); Bilirubin,Total 0.3 mg/dL (0.2-1.3); Blood Urea Nitrogen 14 mg/dL (7-17); Calcium 9.9 mg/dL (8.4-10.2); Carbon Dioxide 32 mmol/L (22-30); Chloride 98 mmol/L (98-107); Estimated Glomerular Filt Rate > 60; Glucose 91 mg/dL (65-110); Potassium 4.1 mmol/L (3.4-5.0); Sodium 138 mmol/L (137-145)
[2024-07-17 17:41] LABS: Percent Iron Saturation 64 % (20-50)
[2024-07-17 18:46] LABS: Folic Acid 7.3 ng/mL (2.76->20); Vitamin B12 > 1000.0 pg/mL (239-931)
[2024-07-19 10:29] LABS: Lupus dRVVT Screen 24 sec (< OR = 45); PTT-LA Screen 32 sec (< OR = 40)
[2024-07-19 12:04] LABS: Homocysteine 10.2 umol/L (<10.4)
[2024-07-20 20:53] LABS: Antithrombin III Activity 120 % normal (80-135)
[2024-07-25 13:19] LABS: Factor V (Leiden) Mutation NEGATIVE
== END 2024-07-17 14:14 | disposition home or self-care (01) ==
LOC: ANHLAB 14:14
PROVIDERS: PCP Family Medicine; Visit Provider Internal Medicine Hematology & Oncology
DX: D68.69 Other thrombophilia (principal); D64.9 Anemia, unspecified
CPT/HCPCS: 36415; 80053; 81240; 81241; 82607; 82728; 82746; 83090; 83540; 83550; 85025; 85300; 85303; 85306; 85613; 85730; 86146

== ENCOUNTER 2024-10-14 01:06 | Day surgery (SDC) | payer MEDICARE, MEDICAID, SELFPAY ==
[2024-10-02 14:24] VITALS: BMI 26.9
--- OUTSIDE RECORDS SUMMARY | 2024-10-14 01:09 | XMS_ITS | Clinical Summary ---
Author Organization [facility] Address [address] [place] [address] Care Team Providers Care Venetian Blind Installer Name Role Phone Reba Cisnerosa TEO Primary Care Provider Social History Tobacco Use Types Packs/Day Years [...] difficile 04/02/2018 04/02/2018 Insurance [employer] Care Teams Venetian Blind Installer Relationship Specialty Start Date End Date Gill [place] [address] PCP - General NURSE PRACTITIONER 02/01/21
--- OUTSIDE RECORDS SUMMARY | 2024-10-14 01:09 | XMS_ITS | Clinical Summary ---
Author Organization [facility] [address]el [address] Address [address] [place] [address] Care Team Providers Care Trauma Coordinator Name Role Phone Unavailable Primary Care Provider Unavailabl e Allergies Active Allergy Reactions Criticality Noted Date Comments Sulfamethoxazole-Trimethoprim Rash Low 2024 Medications losartan (COZAAR) 25 mg tablet Take 1 Tablet by mouth daily. 07/02/2024 Active atorvastatin (LIPITOR) 20 mg tablet Take 20 mg by mouth daily. Active Active Problems No known active problems Encounters Date Type Department Care Team Description 09/25/2024 External Device Data STL ABSTRACTION Provider, Abstract 09/10/2024 Orders Only [facility] Oncology and Hematology - [place] [address] [place] [address] Ramos Hamilton MD 08/01/2024 External Device Data STL ABSTRACTION Provider, Abstract 07/31/2024 4:30 PM CDT Telephone Check Up [facility] Oncology and Hematology - [place] [address] [place] [address] Ramos Hamilton MD Chronic anemia (Primary Dx) 07/31/2024 External Device Data STL ABSTRACTION Provider, Abstract 07/31/2024 External Device Data STL ABSTRACTION Provider, Abstract 07/29/2024 Orders Only [facility] Oncology and Hematology - [place] [address] [place] [address] Ramos Hamilton MD 07/26/2024 Orders Only [facility] Oncology and Hematology - [place] [address] [place] [address] Ramos Hamilton MD 07/24/2024 Orders Only [facility] Oncology and Hematology - [place] [address] [place] [address] Ramos Hamilton MD 07/23/2024 External Device Data STL ABSTRACTION Provider, Abstract 07/23/2024 External Device Data STL ABSTRACTION Provider, Abstract 07/23/2024 External Device Data STL ABSTRACTION Provider, Abstract 07/23/2024 Orders Only [facility] Oncology and Hematology - [place] [address] [place] [address] Ramos Hamilton MD 07/22/2024 Orders Only [facility] Oncology and Hematology - [place] [address] [place] [address] Ramos Hamilton MD 07/18/2024 Orders Only [facility] Oncology and Hematology - [place] [address] [place] [address] Ramos Hamilton MD 07/17/2024 1:30 PM CDT Office Visit [facility] Oncology and Hematology - [place] [address] [place] [address] Ramos Hamilton MD Chronic anemia (Primary Dx); Secondary hypercoagulable state 07/17/2024 Orders Only [facility] Oncology and Hematology - [place] [address] [place] [address] Ramos Hamilton MD 07/17/2024 Abstract [facility] Oncology and Hematology - [place] [address] [place] [address] Ramos Hamilton MD from Last 3 Months Family History Medical [...] on file 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 Gender Identity Not on file Sexual Orientation [...] Care Team (Late st Contact Info) Description 11/04/2024 2:30 PM CDT Office Visit [facility] Oncology and Hematology - [place] [address] [facility] [address] [place] [address] Ramos Hamilton MD [address] [facility] [address] [place] [address] Health Maintenance Due Date Last Done Comments Pre-Diabetes and Diabetes Screening 1960 DTAP/TDAP/TD VACCINES (1 - Tdap) 1977 BREAST CANCER SCREENING 1998 COLORECTAL SCREENING 2003 Colorectal Cancer Screening 2003 FIT-DNA Q 3 years 2003 FIT/FOBT Q 1 year 2003 Flex Sig/CT Colonography Q 5 years 2003 PNEUMOCOCCAL VACCINE 50+ YEARS (1 of 1 - PCV) 02/01/20 08 ZOSTER VACCINE (1 of 2) 02/01/2008 OSTEOPOROSIS SCREENING 2023 INFLUENZA VACCINE (#1) 2024 RSV VACCINE (60+ or ) (1 - 1-dose 75+ series) 2033 Procedures Procedure Name Priority Date/Time Associated Diagnosis Comments BETA 2 MICROGLOBULIN, CSF Routine 2024 4:26 PM CDT CBC WITH DIFFERENTIAL Routine 07/17/2024 4:11 PM CDT ANTITHROMBIN III ACTIVITY Routine 2024 3:26 PM CDT FACTOR V LEIDEN MUTATION Routine 025 2:58 PM CDT CHG LUPUS ANTICOAGULANT Routine 07/18/19 25 2:32 PM CDT CHG PROTEIN C AND S PANEL-CP Routine 07/17/2024 2:28 PM CDT CHG PROTEIN C AND S PANEL-CP Routine 07/17/2024 1:50 PM CDT COMPREHENSIVE METABOLIC PANEL Routine 07/17/2024 11:08 AM CDT COMPREHENSIVE METABOLIC PANEL Routine 07/17/2024 11:00 AM CDT PROTHROMBIN GENE ANALYSIS Routine 2024 10:22 AM CDT CHG PROTEIN C AND S PANEL-CP Routine 07/17/2024 10:12 AM CDT HOMOCYSTEINE Routine 07/17/2024 8:57 AM CDT from Last 3 Months Results * BETA 2 MICROGLOBULIN, CSF (07/17/2024 4:26 PM CDT) Cerebrospinal fluid CEREBROSPINAL FLUID / Unknown us Ramos Hamilton MD CHEMISTRY ORDERABLES Final Resu lt * CBC WITH DIFFERENTIAL (07/17/2024 4:11 PM CDT) Blood us Ramos Hamilton MD HEMATOLOGY ORDERABLES Final Res ult * ANTITHROMBIN III ACTIVITY (07/17/2024 3:26 PM CDT) Blood us Ramos Hamilton MD HEMATOLOGY ORDERABLES Final Res ult * FACTOR V LEIDEN MUTATION (07/17/2024 2:58 PM CDT) Blood Result Jaden Hamilton MD HEMATOLOGY ORDERABLES Final Res ult * CHG LUPUS ANTICOAGULANT (07/17/2024 2:32 PM CDT) Result [facility] us Ramos Hamilton MD CHG - LABORATORY Final Result * CHG PROTEIN C AND S PANEL-CP (07/17/2024 2:28 PM CDT) Only the most recent of3 resultswithin the time period is included. Result Jaden Hamilton MD CHG - LABORATORY Final Result * COMPREHENSIVE METABOLIC PANEL (07/17/2024 11:08 AM CDT) Only the most recent of2 resultswithin the time period is included. Blood Result Jaden Hamilton MD CHEMISTRY ORDERABLES Final Resu lt * PROTHROMBIN GENE ANALYSIS (07/17/2024 10:22 AM CDT) Blood Result Jaden Hamilton MD CHEMISTRY ORDERABLES Final Resu lt * HOMOCYSTEINE (07/17/2024 8:57 AM CDT) Blood Result Jaden Hamilton MD CHEMISTRY ORDERABLES Final Resu lt from Last 3 Months Insurance [facility] [id number] MEDICAID [place] [facility] [id number] MEDICAID [place]
--- NOTE | 2024-10-14 07:23 | P.PNAN_ITS ---
Anes - Initial Pre Proc Eval Procedure: Operation Date: 10/14/24 11:15 Proposed Procedures p Esophagogastroduodenoscopy & Colonoscopy - Naveen Van MD Date/Time: 10/14/24 07:23 Surgeon: Naveen Van MD Pre Op Diagnosis: Iron deficiency anemia, unspecified Patient Data Age: 64 Gender: F Height: 1.5 m Weight: 60.4 kg Allergies Allergy/AdvReac Type Severity Reaction Status Date / Time Sulfa (Sulfonamide AdvReac Mild Hives Verified 10/14/24 09:39 Antibiotics) sulfamethizole AdvReac Mild Hives Verified 10/14/24 09:39 sulfamethoxazole AdvReac Mild HIVES Verified 10/14/24 09:39 trimethoprim AdvReac Mild Hives Verified 10/14/24 09:39 Home Medications ?Medication ?Instructions ?Recorded ?Confirmed ?Type cholecalciferol (vitamin D3) 25 25 mcg PO DAILY 04/06/21 10/14/24 History mcg (1,000 unit) capsule Lactobacills gasseri-Bifidobac 1 cap PO DAILY 04/25/21 10/14/24 History bifidum,longum 1.5 billion cell capsule (Shoplocal) ferrous sulfate 325 mg (65 mg 325 mg PO BID 06/11/24 10/14/24 History iron) tablet,delayed release magnesium citrate (OneLAX 150 ml PO ONCE #296 mL 06/11/24 10/14/24 Rx Magnesium Citrate oral solution) cyanocobalamin (vitamin B-12) 1,000 mcg sublingual .QOD 07/02/24 10/14/24 History 1,000 mcg sublingual tablet losartan 25 mg tablet 25 mg PO DAILY #100 tabs 07/02/24 10/14/24 Rx atorvastatin 20 mg tablet 20 mg PO QHS #90 tabs 07/25/24 10/14/24 Rx lorazepam 1 mg tablet 1 mg PO BID PRN Anxiety #90 tabs 08/13/24 10/02/24 Rx apixaban 5 mg tablet (Eliquis) 5 mg PO Q12H 10/02/24 10/02/24 History Patient hx anesthesia problems: none Family hx anesthesia problems: none Results Review: All pre-operative results and documents have been reviewed as part of the pre-operative evaluation. [facility] Past Medical History Medical History Osteopenia Iron deficiency anemia Diverticulitis large intestine (~03/27/24) C. difficile diarrhea (~04/01/24) 04/06, 05/07, 06/04 Melanoma s/p excision Heart murmur Vitamin B12 deficiency Lumbar spondylosis COVID (~08/2021) History of TIA (transient ischemic attack) (~04/2021) Rhabdomyolysis (~04/2021) Anxiety Chronic lumbar pain Hyperlipidemia Hypertension Surgical History Surgical History History of appendectomy History of tonsillectomy (~1964) History of melanoma excision Left shoulder History of cervical spinal surgery (~2014) History of back surgery (~2018) Hx of cholecystectomy (Unknown) Family History Family History Mother Family history of elevated blood lipids Family history of emphysema Hypertension Grandparent Acute myocardial infarction Family history of malignant neoplasm of urinary bladder Father Patient's father is Dementia Sibling COPD (chronic obstructive pulmonary disease) Other Anxiety Depression Family history of chronic obstructive pulmonary disease Skin cancer Social History Social History Smoking packs per day: 1 Smoking cigarettes per day: 20.0 Years smoked: 2 Smoking pack-years: 2.00 Smoking status: Former smoker Tobacco type: cigarettes Second hand tobacco smoke exposure: No Alcohol intake: never Substance use: never Substance use type: does not use Do You Feel Safe in your Home?: No Lack of Transportation: No Lack of Food: Never True Current Housing: I Have Housing Concerned About Future Housing: No Difficulty Paying Gas/Electric Bills: No Difficulty Paying for Meds: No Currently Unemployed: No Education: High School Diploma/GED Difficulty w/ Childcare or Family Care: No Living arrangements: with family Gender identity (if verbalized by the patient): Female Spiritual care concerns: No Anes - Eval Final PreProcedure Day of Procedure 10/14/24 07:23 Patient weight: overweight Heart: regular rate and rhythm Lungs: clear to auscultation Airway: Mallampati scale class II Neurological: alert and oriented Last oral intake: >/= 8 hours ASA classification: III Emergent: no Anesthetic plan: proceed Anesthesia type and monitoring: general GIVS and standard monitoring Results Review: All pre-operative results and documents have been reviewed as part of the pre- operative evaluation. Informed Consent: The patient's anesthetic plan and its attendant risks and benefits were discussed with the patient/family/POA. Questions were solicited and answers provided to the satisfaction of the patient/family/POA.
--- NOTE | 2024-10-14 09:42 | SUR.PREOP ---
Patient states she quit taking Eliquis around a month ago. States her cancer doctor took her off medication.
[2024-10-14 09:43] VITALS: BP 121/79; PULSE 86; RESP 18; TEMP 36.6; O2SAT 100
[2024-10-14] MEDS: SIMETHICONE ORAL SUSPENSION 20 MG/0.3 ML 30 ML BOTTLE 1.8 ML PO (10:01)
[2024-10-14] MEDS: LACTATED RINGERS 1,000 ML 150 ML IV CONT (10:07)
--- NOTE | 2024-10-14 10:14 | P.HP_ITS ---
H&P: HPI History of Present Illness Date/Time: 10/14/24 10:14 Chief Complaint: Iron deficiency anemia Narrative: this patient was seen during hospitalization in July for complicated diverticulitis, and history of recurrent C diff infection. She was also found to be iron deficiency anemic, and responded to oral iron therapy. She is now referred for EGD and colonoscopy. Review of Systems Review of Systems: All systems reviewed & are unremarkable except as noted in HPI and below PMFSH Past Medical History Medical History Osteopenia Iron deficiency anemia Diverticulitis large intestine (~03/27/24) C. difficile diarrhea (~04/01/24) 04/06, 05/07, 06/04 Melanoma s/p excision Heart murmur Vitamin B12 deficiency Lumbar spondylosis COVID (~08/2021) History of TIA (transient ischemic attack) (~04/2021) Rhabdomyolysis (~04/2021) Anxiety Chronic lumbar pain Hyperlipidemia Hypertension Surgical History Surgical History History of appendectomy History of tonsillectomy (~1964) History of melanoma excision Left shoulder History of cervical spinal surgery (~2014) History of back surgery (~2018) Hx of cholecystectomy (Unknown) Family History Family History Mother Family history of elevated blood lipids Family history of emphysema Hypertension Grandparent Acute myocardial infarction Family history of malignant neoplasm of urinary bladder Father Patient's father is Dementia Sibling COPD (chronic obstructive pulmonary disease) Other Anxiety Depression Family history of chronic obstructive pulmonary disease Skin cancer Social History Social History Smoking packs per day: 1 Smoking cigarettes per day: 20.0 Years smoked: 2 Smoking pack-years: 2.00 Smoking status: Former smoker Tobacco type: cigarettes Second hand tobacco smoke exposure: No Alcohol intake: never Substance use: never Substance use type: does not use Do You Feel Safe in your Home?: No Lack of Transportation: No Lack of Food: Never True Current Housing: I Have Housing Concerned About Future Housing: No Difficulty Paying Gas/Electric Bills: No Difficulty Paying for Meds: No Currently Unemployed: No Education: High School Diploma/GED Difficulty w/ Childcare or Family Care: No Living arrangements: with family Gender identity (if verbalized by the patient): Female Spiritual care concerns: No Meds Home Medications and Allergies Home Medications ?Medication ?Instructions ?Recorded ?Confirmed ?Type cholecalciferol (vitamin D3) 25 25 mcg PO DAILY 04/06/21 10/14/24 History mcg (1,000 unit) capsule Lactobacills gasseri-Bifidobac 1 cap PO DAILY 04/25/21 10/14/24 History bifidum,longum 1.5 billion cell capsule (Iencuentra) ferrous sulfate 325 mg (65 mg 325 mg PO BID 06/11/24 10/14/24 History iron) tablet,delayed release magnesium citrate (OneLAX 150 ml PO ONCE #296 mL 06/11/24 10/14/24 Rx Magnesium Citrate oral solution) cyanocobalamin (vitamin B-12) 1,000 mcg sublingual .QOD 07/02/24 10/14/24 History 1,000 mcg sublingual tablet losartan 25 mg tablet 25 mg PO DAILY #100 tabs 07/02/24 10/14/24 Rx atorvastatin 20 mg tablet 20 mg PO QHS #90 tabs 07/25/24 10/14/24 Rx lorazepam 1 mg tablet 1 mg PO BID PRN Anxiety #90 tabs 08/13/24 10/02/24 Rx apixaban 5 mg tablet (Eliquis) 5 mg PO Q12H 10/02/24 10/02/24 History Allergies Allergy/AdvReac Type Severity Reaction Status Date / Time Sulfa (Sulfonamide AdvReac Mild Hives Verified 10/14/24 09:39 Antibiotics) sulfamethizole AdvReac Mild Hives Verified 10/14/24 09:39 sulfamethoxazole AdvReac Mild HIVES Verified 10/14/24 09:39 trimethoprim AdvReac Mild Hives Verified 10/14/24 09:39 Vital Signs Vital Signs - 24 hr 10/14/24 09:43 Temperature 97.8 F Pulse Rate 86 Respiratory Rate 18 Blood Pressure 121/79 Pulse Oximetry 100 Oxygen Delivery Room Air Exam Const: General: cooperative and healthy appearing Resp: Effort & Inspection: normal respiratory effort and able to speak in complete sentences Auscultation: clear to auscultation bilaterally Cardio: Rate: regular rate Rhythm: regular rhythm GI: Inspection: normal to inspection GI Palp: No No hepatosplenomegaly present Auscultation: normal bowel sounds Rectal Exam: deferred Skin: General skin exam: normal color Psych: Appearance: grossly normal Mental Status: mental status grossly normal Assessment and Plan Assessment and plan (1) Iron deficiency anemia: Qualifiers: Iron deficiency anemia type: unspecified iron deficiency Qualified Code(s): D50.9 - Iron deficiency anemia, unspecified Code(s): D50.9 - Iron deficiency anemia, unspecified Status: Chronic Assessment and Plan: The patient is deemed a good candidate for the procedures. Consent signed. Will proceed.
--- NOTE | 2024-10-14 10:37 | S_PTH ---
PATIENT: Rosanna Johns LOC: [facility] S[facility]#:[id number] AGE/SX: 64/F ROOM: RE10/14/[address]: Naveen Van MD : 1960 BED: DIS: 10/14/2024 SPEC #: [id number] RECD: 10/14/24 11:51 STATUS: YENIFER RE #: [id number] REBECCA: 10/14/24 10:[address]: Naveen Van DEPT: [facility] [place] Surgical RECD BY: Katy Navas ENTERED: 10/14/24 11:51 SP TYPE: Surgical OTHR DR: Barbara Jordan MD Tissues: A - Gastric Biopsy B - Gastric Biopsy C - Colon Biopsy Procedures: Hematoxylin and Eosin Stain Gross and Microscopic Level 4 MLH1 MSH2 MSH6 PMS2
--- NOTE | 2024-10-14 10:39 | SUR.OPER ---
EGD start 103 end 103, Colonoscopy start 104
[2024-10-14 11:11] VITALS: BP 105/72; PULSE 81; RESP 16; O2SAT 100
[2024-10-14 11:21] VITALS: BP 121/75; PULSE 87; RESP 14; O2SAT 97
[2024-10-14 11:31] VITALS: BP 112/70; PULSE 85; RESP 17; O2SAT 100
== END 2024-10-14 11:49 | disposition home or self-care (01) ==
PROVIDERS: PCP Family Medicine; Referring Provider Family Medicine; Visit Provider Internal Medicine Gastroenterology
PROC: 0DJ08ZZ Inspection of Upper Intestinal Tract, Via Natural or Artificial Opening Endoscopic (ICD-10-PCS; CPT 45378; principal; 2024-10-14 11:15)
DX: C18.2 Malignant neoplasm of ascending colon (principal); K57.30 Diverticulosis of large intestine without perforation or abscess without bleeding; K29.30 Chronic superficial gastritis without bleeding; D50.9 Iron deficiency anemia, unspecified; E78.5 Hyperlipidemia, unspecified; I10 Essential (primary) hypertension; R01.1 Cardiac murmur, unspecified; E53.8 Deficiency of other specified B group vitamins; M43.06 Spondylolysis, lumbar region; M62.82 Rhabdomyolysis; F41.9 Anxiety disorder, unspecified; M85.88 Other specified disorders of bone density and structure, other site; G89.29 Other chronic pain; M54.59 Other low back pain; Z79.01 Long term (current) use of anticoagulants; Z98.890 Other specified postprocedural states; Z98.1 Arthrodesis status; Z90.49 Acquired absence of other specified parts of digestive tract; Z87.891 Personal history of nicotine dependence; Z85.820 Personal history of malignant melanoma of skin; Z87.19 Personal history of other diseases of the digestive system; Z86.73 Personal history of transient ischemic attack (TIA), and cerebral infarction without residual deficits; Z80.52 Family history of malignant neoplasm of bladder; Z84.0 Family history of diseases of the skin and subcutaneous tissue; Z82.49 Family history of ischemic heart disease and other diseases of the circulatory system
CPT/HCPCS: 43239; 45380; 88305; 88342; J2003; J2704; J7120

== ENCOUNTER 2024-10-15 14:27 | Outpatient (CLI) | payer MEDICARE, MEDICAID, SELFPAY ==
--- NOTE | ~2024-10-15 | CT_ITS ---
CLINICAL INDICATION: Colon cancer COMPARISON: 05/30/2024. TECHNIQUE: An enhanced CT of the abdomen and pelvis was performed utilizing multislice spiral OVGuide ue reconstructed at 5 mm slice thickness. Coronal and sagittal reconstructions were performed. This CT examination was performed utilizing dose reduction techniques. DLP: 308 mGy-cm FINDINGS/OBSERVATIONS: Lun mm nodule within the right middle lobe at the level of the right hilum (axial series, image 56). Elevation of the right hemidiaphragm with adjacent compressive atelectasis. The remainder of the lungs are clear. The heart is of normal size, without pericardial effusion. Mediastinum: No pathologically enlarged or morphologically suspicious lymph nodes are identified within the medias tinum, bilateral axilla, within the soft tissues of the anterior chest wall. Soft tissues of the chest: Unremarkable. Bones of the chest: Anterior fixation of the lower cervical spine. No acute fracture. No lytic or blastic lesions are identified. Liver: The liver enhances homogeneously and is not enlarged. Gallbladder and biliary system: The gallbladder is surgically absent. Dilatation of the common bile duct, to be expected postcholecystectomy. Pancreas: The pancreas enhances homogeneously, without ductal dilatation. Spleen: The spleen enhances homogeneously and is not large. Kidneys: The bilateral kidneys enhance symmetrically without hydronephrosis or renal calculi. Adrenal glands: Unremarkable. Gastrointestinal tract: Mural thickening within the sigmoid colon with multiple diverticula and trace surrounding inflammator y change, improved in appearance since 05/30/2024. Remaining bowel loops are unremarkable. Appendix: The appendix is not definitively visualized. However, no pericecal inflammatory change is identified suggest the presence of acute appendicitis. Vasculature: No calcified atherosclerotic disease is present. No aneurysmal dilatation. Lymph nodes: Prominent right iliac chain lymph nodes are identified (axial series, images 180 and 171) measuring 7 .5 and 8.5 mm in short axis dimension. No pathologically enlarged or morphologically suspicious lymph nodes detected within the retroperiton eum, or the root of the mesentery. Pelvic structures: The bladder is only minimally minimally distended and otherwise unremarkable. The uterus is anteverted and anteflexed. The ovaries are not visualized. Body wall and musculoskeletal: Small fat-containing umbilical hernia. Posterior fixation at the level of L3 and L4. No discrete lytic or blastic lesions are identified. Large hemangioma within the vertebral body of T6, unchanged from 05/30/2024. No acute compression fractures or significant degenerative disease. IMPRESSION: Diverticulosis of the sigmoid colon. Remaining bowel loops are unremarkable, without cross-sectional imaging evidence of the ascending col on malignancy. Prominent right iliac chain lymph nodes, as detailed above. No evidence of metastatic disease within the chest, abdomen or remainder of the pelvis. Reviewed, dictated and finalized at location A. IMPRESSION: Diverticulosis of the sigmoid colon. Remaining bowel loops are unremarkable, without cross-sectional imaging evidenc e of the ascending colon malignancy. Prominent right iliac chain lymph nodes, as detailed above. No evidence of metastatic disease within the chest, abdomen or remainder of the pelvis.
--- OUTSIDE RECORDS SUMMARY | 2024-10-15 14:33 | XMS_ITS | Clinical Summary ---
Author Organization [facility] Address [address] [place] [address] Care Team Providers Care Bun Machine Operator Name Role Phone BlayneRebaa TEO Primary Care Provider [phone] Social History Tobacco Use Types Packs/Day Years [...] difficile 04/02/2018 04/02/2018 Insurance [employer] Care Teams Bun Machine Operator Relationship Specialty Start Date End Date Gill [place] [address] PCP - General NURSE PRACTITIONER 02/01/21
--- OUTSIDE RECORDS SUMMARY | 2024-10-15 14:33 | XMS_ITS | Clinical Summary ---
Author Organization [facility] Gene patel Layla Address [address] [place] [address] Care Team Providers Care Impregnator Name Role Phone Unavailable Primary Care Provider [...] STL ABSTRACTION Provider, Abstract 09/10/2024 Orders Only [facility] - [place] [address] [place] [address] Ramos Hamilton MD 08/01/2024 External Device Data STL ABSTRACTION Provider, Abstract 07/31/2024 4:30 PM CDT Telephone Check Up [facility] - [place] [address] [place] [address] Ramos Hamilton MD Chronic anemia (Primary Dx) 07/31/2024 External Device Data STL ABSTRACTION Provider, Abstract 07/31/2024 External Device Data STL ABSTRACTION Provider, Abstract 07/29/2024 Orders Only [facility] - [place] [address] [place] [address] Ramos Hamilton MD 07/26/2024 Orders Only [facility] - [place] [address] [place] [address] Ramos Hamilton MD 07/24/2024 Orders Only [facility] - [place] [address] [place] [address] Ramos Hamilton MD 07/23/2024 External Device Data STL ABSTRACTION Provider, Abstract 07/23/2024 External Device Data STL ABSTRACTION Provider, Abstract 07/23/2024 External Device Data STL ABSTRACTION Provider, Abstract 07/23/2024 Orders Only [facility] - [place] [address] [place] [address] Ramos Hamilton MD 07/22/2024 Orders Only [facility] - [place] [address] [place] [address] Ramos Hamilton MD 07/18/2024 Orders Only [facility] - [place] [address] [place] [address] Ramos Hamilton MD 07/17/2024 1:30 PM CDT Office Visit [facility] - [place] [address] [place] [address] Ramos Hamilton MD Chronic anemia (Primary Dx); Secondary hypercoagulable state 07/17/2024 Orders Only [facility] - [place] [address] [place] [address] Ramos Hamilton MD 07/17/2024 Abstract [facility] - [place] [address] [place] [address] Ramos Hamilton MD from Last 3 Months [...] on file 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 Gender Identity Not on file Sexual Orientation [...] Description 11/04/2024 2:30 PM CDT Office Visit [facility] - [place] [address] [facility] [address] [place] [address] Ramos Hamilton MD [address] [facility] [address] [place] [address] Health Maintenance Due Date Last [...] LUPUS ANTICOAGULANT (07/17/2024 2:32 PM CDT) Result [facility] us Ramos Hamiltno MD CHG - LABORATORY Final Result * [...] from Last 3 Months Insurance [facility] [place] [id number] MEDICAID [place] [facility] [place] [address] [place]
[2024-10-15 15:07] LABS: Estimated Glomerular Filt Rate > 60
== END 2024-10-15 14:28 | disposition home or self-care (01) ==
PROVIDERS: PCP Family Medicine; Visit Provider Internal Medicine Gastroenterology
DX: C18.9 Malignant neoplasm of colon, unspecified (principal); K57.30 Diverticulosis of large intestine without perforation or abscess without bleeding
CPT/HCPCS: 71260; 74177; Q9967

== ENCOUNTER 2024-11-19 09:14 | Outpatient (CLI) | payer MEDICARE, MEDICAID, SELFPAY ==
--- OUTSIDE RECORDS SUMMARY | 2024-11-19 10:03 | XMS_ITS | Clinical Summary ---
Author Organization [facility] Address [address] [place] [address] Care Team Providers Care Complaint Operator Name Role Phone BlayneRbeaa TEO Primary Care Provider [phone] Social History Tobacco Use Types Packs/Day Years [...] COVID-19 Vaccine ( - 2023-2 5 season) 2024 RSV Immunization or 60+ Years (1 - [...] difficile 04/02/2018 04/02/2018 Insurance E[employer]ENCE Care Teams Complaint Operator Relationship Specialty Start Date End Date Gill Cisneros [place] [address] PCP - General NURSE PRACTITIONER 02/01/21
--- OUTSIDE RECORDS SUMMARY | 2024-11-19 10:03 | XMS_ITS | Clinical Summary ---
Author Organization [facility] Gene patel Layla Address [address] [place] [address] Care Team Providers Care Oracle Etl Developer Name Role Phone Unavailable Primary Care Provider Unavailabl e Allergies Active Allergy Reactions Criticality Noted Date Comments Sulfamethoxazole-Trimethoprim Rash Low 2024 Medications losartan (COZAAR) 25 mg tablet Take 1 Tablet by mouth daily. 07/02/2024 Active atorvastatin (LIPITOR) 20 mg tablet Take 20 mg by mouth daily. Active Active Problems No known active problems Encounters Date Type Department Care Team Description 11/07/2024 11:00 AM CDT Office Visit [facility] Oncology and Hematology - [place] [address] [place] [address] Ramos Hamilton MD Chronic anemia (Primary Dx); Malignant neoplasm of ascending colon (CMS/HCC) 11/05/2024 Orders Only [facility] Oncology and Hematology - [place] [address] [place] [address] Ramos Hamilton MD 11/01/2024 Telephone [facility] Oncology [facility] Hematology - [place] [address] [place] [address] Ramos Hamilton MD labs for appt 10/16/2024 External Device Data STL ABSTRACTION Provider, Abstract 09/25/2024 External Device Data STL ABSTRACTION Provider, Abstract 09/10/2024 Orders Only [facility] On[facility] Hematology [place] [address] [place] [address] Ramos Hamilton MD from Last 3 Months [...] Types Packs/Day Years Used Date Smoking Tobacco: Former Cigarettes 1 5 S tarted: 1973 Smokeless Tobacco: Never Tobacco Cessation:Counseling Given: Not Answered Alcohol Use Standard Drinks/Week Comments Yes 0 (1 standard drink = 0.6 oz pur e alcohol) occasional Comments Unknown Sex and Gender Information Value Date Recorded Sex Assigned at Not on file 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 Gender Identity Not on file Sexual Orientation Not on file Last Filed Vital Signs Vital Sign Reading Time Taken Comments Blood Pressure 118/73 11/07/2024 10:50 AM CDT Pulse 96 11/07/2024 10:50 AM CDT Temperature 36.2 C (97.1 F) 11/07/2024 10:50 AM CDT Respiratory Rate 12 11/07/2024 10:50 AM CDT Oxygen Saturation 98% 11/07/2024 10:50 AM CDT Inhaled Oxygen Concentration - - Weight 59 kg (130 lb) 11/07/2024 10:50 AM CDT Height 149.9 cm (4' 11) 07/17/2024 1:23 PM CDT Body Mass Index 26.26 07/17/2024 1:23 PM CDT Plan of Treatment Upcoming Encounters Date Type Department Care Team (Late st Contact Info) Description 12/26/2024 10:00 AM CDT Office Visit [facility] Oncology and Hematology - [place] [address] [facility] [address] [place] [address] Ramos Hamilton MD [address] [facility] [address] [place] [address] Health Maintenance Due Date Last Done Comments Pre-Diabetes and Diabetes Screening 1960 BREAST CANCER SCREENING 1998 OSTEOPOROSIS SCREENING 2023 INFLUENZA VACCINE (#1) 2024 4, 02/01/2023, 12/15/2021, Additional history exists DTAP/TDAP/TD VACCINES (2 - T d or Tdap) 02/01/2032 2022 RSV VACCINE (60+ or ) (1 - 1-dose 75+ series) 2033 ZOSTER VACCINE Completed 02/04/2020, 12/06/2019 PNEUMOCOCCAL VACCINE 50+ YEARS Completed 03/16/2023 Procedures Procedure Name Priority Date/Time Associated Diagnosis Comments BASIC METABOLIC PANEL Routine 11/04/2024 11:02 AM CDT BASIC METABOLIC PANEL Routine 11/04/2024 11:00 AM CDT CBC WITH AUTODIFFERENTIAL Routine 2024 10:49 AM CDT from Last 3 Months Results * BASIC METABOLIC PANEL (11/04/2024 11:02 AM CDT) Only the most recent of2 resultswithin the time period is included. Blood us Ramos Hamilton MD CHEMISTRY ORDERABLES Final Resu lt * CBC WITH AUTODIFFERENTIAL (11/04/2024 10:49 AM CDT) Blood us Ramos Hamilton MD HEMATOLOGY ORDERABLES Final Res ult from Last 3 Months Insurance [facility] [id number] MED[place]ID [place] [facility] [id number] [place]
[2024-11-19 11:22] LABS: Carcinoembryonic Antigen 14.8 ng/mL (0.0-3.0)
== END 2024-11-19 09:15 | disposition home or self-care (01) ==
PROVIDERS: PCP Family Medicine; Visit Provider Surgery
DX: C18.2 Malignant neoplasm of ascending colon (principal)
CPT/HCPCS: 36415; 82378; 86850; 86900; 86901

== ENCOUNTER 2024-11-26 15:15 | Emergency (ER) | payer MEDICARE, MEDICAID, SELFPAY ==
[2024-11-26 15:29] VITALS: BP 139/85; PULSE 89; RESP 20; O2SAT 98
--- OUTSIDE RECORDS SUMMARY | 2024-11-26 16:33 | XMS_ITS | Clinical Summary ---
Author Organization [facility] Address [address] [place] [address] Care Team Providers Care Treatment Specialist Name Role Phone BlayneRebaa TEO Primary Care Provider [phone] Social History Tobacco Use Types Packs/Day Years [...] difficile 04/02/2018 04/02/2018 Insurance [employer] Care Teams Treatment Specialist Relationship Specialty Start Date End Date Gill [place] [address] PCP - General NURSE PRACTITIONER 02/01/21
--- OUTSIDE RECORDS SUMMARY | 2024-11-26 16:33 | XMS_ITS | Clinical Summary ---
Author Organization [facility] Gene patel Layla Address [address] [place] [address] Care Team Providers Care Employment Instructional Associate Name Role Phone Unavailable Primary Care Provider Unavailabl e Allergies Active Allergy Reactions Criticality Noted Date Comments Sulfamethoxazole-Trimethoprim Rash Low 2024 Medications losartan (COZAAR) 25 mg tablet Take 1 Tablet by mouth daily. 07/02/2024 Active atorvastatin (LIPITOR) 20 mg tablet Take 20 mg by mouth daily. Active Active Problems No known active problems Encounters Date Type Department Care Team Description 11/19/2024 External Device Data STL ABSTRACTION Provider, Abstract 11/07/2024 11:00 AM CDT Office Visit [facility] Oncology and Hematology - [place] [address] [place] [address] Ramos Hamilton MD Chronic anemia (Primary Dx); Malignant neoplasm of ascending colon (CMS/HCC) 11/05/2024 Orders Only [facility] Oncology and Hematology - [place] [address] [facility] [address] Ramos Hamilton MD 11/01/2024 Telephone [facility] Oncology and Hematology - [place] [address] [facility] [place] [address] Ramos Hamilton MD labs for appt 10/16/2024 External Device Data STL ABSTRACTION Provider, Abstract 09/25/2024 External Device Data STL ABSTRACTION Provider, Abstract 09/10/2024 Orders Only [facility] Oncology and Hematology - [place] [address] [place] [address] Ramos Hamilton MD from Last 3 Months [...] on file 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 Blood Ramos Hamilton MD CHEMISTRY ORDERABLES Final Resu lt * CBC WITH AUTODIFFERENTIAL (11/04/2024 10:49 AM CDT) Blood us Ramos Hamilton MD HEMATOLOGY ORDERABLES Final Res ult from Last 3 Months Insurance [facility] [id number] MED[place] [facility] [id number] [place]
--- OUTSIDE RECORDS SUMMARY | 2024-11-26 16:57 | XMS_ITS | Clinical Summary ---
Author Organization [facility] Address [address] [place] [address] Care Team Providers Care Seo Associate Name Role Phone BlayneRebaa TEO Primary Care Provider [phone] Social History Tobacco Use Types Packs/Day Years [...] difficile 04/02/2018 04/02/2018 Insurance [employer]SS[employer] Care Teams Seo Associate Relationship Specialty Start Date End Date Gill [place] [address] PCP - General NURSE PRACTITIONER 02/01/21
--- OUTSIDE RECORDS SUMMARY | 2024-11-26 16:57 | XMS_ITS | Clinical Summary ---
Author Organization [facility] Gene patel Layla Address [address] [place] [address] Care Team Providers Care Receptionist Secretary Name Role Phone Unavailable Primary Care Provider [...] Abstract 11/07/2024 11:00 AM CDT Office Visit [facility] Oncology and Hematology - [place] [address] [place] [address] Ramos Hamilton MD Chronic anemia (Primary Dx); Malignant neoplasm of ascending colon (CMS/HCC) 11/05/2024 Orders Only [facility] Oncology and Hematology - [place] [address] [facility] [place] [address] Ramos Hamilton MD 11/01/2024 Telephone [facility] Oncology and Hematology - [place] [address] [facility] [place] [address] Ramos Hamilton MD labs for appt 10/16/2024 External Device Data STL ABSTRACTION Provider, Abstract 09/25/2024 External Device Data STL ABSTRACTION Provider, Abstract 09/10/2024 Orders Only [facility] Oncology and Hematology - [place] [address] [place] [address] Ramos Hamilton MD from Last 3 Months [...] on file 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
[2024-11-26] MEDS: SODIUM CHLORIDE 0.9% IV 1,000 ML 999 ML IV CONT (17:21)
[2024-11-26] MEDS: ONDANSETRON INJ 4 MG/2 ML VIAL IV PUSH (17:21)
[2024-11-26 17:26] LABS: Hematocrit 39.2 % (37.0-47.0); Hemoglobin 12.1 g/dL (12.0-15.0); Immature Granulocyte Percent A 0.4 % (0-0.5); Lymphocytes Absolute Auto 1.20 K/mm3 (0.9-3.2); Mean Corpuscular HGB Conc 30.9 g/dl (32-36); Mean Corpuscular Hemoglobin 25.7 pg (26-34); Mean Corpuscular Volume 83.4 fl (80-100); Nucleated Red Blood Cells Absolute Auto 0.000 K/mm3 (0.0-0.012); Nucleated Red Blood Cells Perc 0.0 % (0.0-0.2); Platelet Count Result 255 k/mm3 (150-375); Red Blood Count 4.70 M/mm3 (4.2-5.4); White Blood Count 9.2 K/mm3 (4.5-10.0)
[2024-11-26 18:24] LABS: Add Urine Microscopic? YES; Appearance Urine Clear (Clear); Glucose Urine UA Negative (Negative); Leukocyte Esterase Ur 2+ LEU/UL (Negative); Nitrate Urine Negative (Negative); Non Pathogenic Casts 0-2; Specific Grav Ur 1.014 (1.001-1.035)
[2024-11-26 19:22] VITALS: BP 121/81; PULSE 73; RESP 16; O2SAT 99
--- NOTE | 2024-11-26 19:46 | ED_ITS ---
HPI - Nausea/Vomiting/Diarrhea General Chief complaint: Nausea/Vomiting/Diarrhea Stated complaint: n/v Time Seen by Provider: 11/26/24 16:50 Source: patient and family Mode of arrival: ambulatory Limitations: no limitations History of Present Illness HPI Narrative: 64-year-old with a history of colon cancer is scheduled for surgery tomorrow was taking bowel prep earlier this afternoon started nausea, abdominal cramping and diarrhea. Patient states that cramping is quite intense. She denies any blood in the stool. Denies any fever chills MD elicited complaint: nausea, vomiting, diarrhea and abdominal pain Pertinent past history: other (Colon cancer) Onset (ago): hour(s) (2) Description of vomiting: watery Description of diarrhea: watery Associated nausea: Yes Associated abdominal pain: Yes Location of pain: none Pain consistency: intermittent Severity: mild Quality: cramping Exacerbating factors: none Relieving factors: none Related Data Home Medications ?Medication ?Instructions ?Recorded ?Confirmed ?Last Taken ?Type cholecalciferol (vitamin D3) 25 25 mcg PO DAILY 11/19/24 10/14/24 History mcg (1,000 unit) capsule Lactobacills gasseri-Bifidobac 1 cap PO DAILY 04/25/21 11/19/24 10/14/24 History bifidum,longum 1.5 billion cell capsule ([employer]) cyanocobalamin (vitamin B-12) 1,000 mcg sublingual .QO D 07/02/24 11/19/24 10/13/24 History 1,000 mcg sublingual tablet Allergies Allergy/AdvReac Type Severity Reaction Status Date / Time Sulfa (Sulfonamide AdvReac Mild Hives Verified 11/26/24 17:20 Antibiotics) sulfamethizole AdvReac Mild Hives Verified 11/26/24 17:20 sulfamethoxazole AdvReac Mild HIVES Verified 11/26/24 17:20 trimethoprim AdvReac Mild Hives Verified 11/26/24 17:20 Review of Systems 2 Review of Systems: All systems reviewed & are unremarkable except as noted in HPI and below Constitutional: Constitutional: Reports no additional constitutional complaints Eyes: Eyes: Reports no additional eye complaints ENT: Reports system reviewed and no additional complaints, except as documented Cardiovascular: Cardiovascular: Reports no additional cardiovascular complaints Respiratory: Respiratory: Reports no additional respiratory complaints Gastrointestinal: Gastrointestinal: Reports as per HPI Musculoskeletal: Musculoskeletal: Reports no additional musculoskeletal complaints [facility] Past Medical History Medical History Iron deficiency anemia Recurrent Clostridioides difficile diarrhea (~06/2024) 04/06, 05/07, 07/05 Cancer of right colon (~10/2024) 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: CT of abdomen - no portal vein thrombosis 04/06: CT of the abdomen shows portal vein thrombosis in the right liver lobe, inferior mesenteric vein and sigmoid branch vein thrombosis Osteopenia Iron deficiency anemia Diverticulitis large intestine (~03/27/24) Melanoma s/p excision Heart murmur Vitamin B12 deficiency Lumbar spondylosis COVID (~08/2021) History of TIA (transient ischemic attack) (~04/2021) Rhabdomyolysis (~04/2021) Anxiety Chronic lumbar pain Hyperlipidemia Hypertension Surgical History Surgical History History of appendectomy History of tonsillectomy (~1964) History of melanoma excision Left shoulder History of cervical spinal surgery (~2014) History of back surgery (~2018) Hx of cholecystectomy (Unknown) Family History Family History Mother Family history of elevated blood lipids Family history of emphysema Hypertension Grandparent Acute myocardial infarction Family history of malignant neoplasm of urinary bladder Father Patient's father is Dementia Sibling COPD (chronic obstructive pulmonary disease) Other Anxiety Depression Family history of chronic obstructive pulmonary disease Skin cancer Social History Social History Smoking packs per day: 0.5 Smoking cigarettes per day: 10.0 Years smoked: 2 Smoking pack-years: 1.00 Smoking status: Former smoker Tobacco type: cigarettes Second hand tobacco smoke exposure: No Smoking end date: 03/13/77 Alcohol intake: never Substance use: never Substance use type: does not use Do You Feel Safe in your Home?: No Lack of Transportation: No Lack of Food: Never True Current Housing: I Have Housing Concerned About Future Housing: No Difficulty Paying Gas/Electric Bills: No Difficulty Paying for Meds: No Currently Unemployed: No Education: High School Diploma/GED Difficulty w/ Childcare or Family Care: No Living arrangements: alone Gender identity (if verbalized by the patient): Female Spiritual care concerns: No Exam 2 Narrative: GENERAL: Well-appearing, well-nourished, and in no acute distress. HEAD: Normocephalic, atraumatic. EYES: PERRLA and EOMI. ENT: Nares clear, no rhinorrhea or epistaxis. Mucous membranes moist. NECK: Supple. CHEST: Clear to auscultation. No respiratory distress. HEART: Regular rate and rhythm. No murmur heard. Normal peripheral pulses. ABDOMEN: Soft, nontender, nondistended, normal active bowel sounds. EXTREMITIES: Normal range of motion. No edema. SKIN: Warm, dry, no rash. NEURO: No focal deficits. Alert and oriented x3. PSYCH: Normal mood and affect. Course Course Emergency Course: Patient feeling much better after IV fluids and Zofran. I did inform her about the lab work. She feels great and wants to go home to finish rest of her prep for tomorrow surgery. Vital Signs Vital signs: Vital Signs Pulse Rate 89 11/26/24 15:29 Respiratory Rate 20 11/26/24 15:29 Blood Pressure 139/85 11/26/24 15:29 Pulse Oximetry 98 11/26/24 15:29 Oxygen Delivery Room Air 11/26/24 15:29 Pulse Rate 73 11/26/24 19:22 Respiratory Rate 16 11/26/24 19:22 Blood Pressure 121/81 11/26/24 19:22 Pulse Oximetry 99 11/26/24 19:22 Oxygen Delivery Room Air 11/26/24 15:29 MDM - Nausea/Vomiting/Diarrhea Differential Diagnosis Differential diagnosis: Likely gastroenteritis, drug-induced nausea and vomiting and dehydration Medical Records Attestation: I reviewed the patient's medical records. Lab Data Attestation: I reviewed the patient's lab results. 11/26/24 17:16 Labs: Lab Results 11/26/24 Range/Units 17:16 WBC 9.2 (4.5-10.0) K/mm3 RBC 4.70 (4.2-5.4) M/mm3 Hgb 12.1 (12.0-15.0) g/dL Hct 39.2 (37.0-47.0) % MCV 83.4 (80-100) fl MCH 25.7 L (26-34) pg MCHC 30.9 L (32-36) g/dl RDW 18.4 H (11.5-14.5) % Plt Count 255 (150-375) k/mm3 MPV 9.7 (7.4-10.4) fl Immature Gran % (Auto) 0.4 (0-0.5) % Neut % (Auto) 78.0 H (45.5-73.1) % Lymph % (Auto) 13.1 L (18.3-44.2) % [place] % (Auto) 5.9 (2.6-8.5) % Eos % (Auto) 1.7 (0-4.4) % Baso % (Auto) 0.9 (0.2-1.2) % Lymph # (Auto) 1.20 (0.9-3.2) K/mm3 [place] # (Auto) 0.5 (0.1-0.6) K/mm3 Eos # (Auto) 0.2 (0-0.3) K/mm3 Baso # (Auto) 0.1 (0.0-0.1) K/mm3 Abs Immat Gran (auto) 0.04 H (0.00-0.031) K/mm3 Absolute Neuts (auto) 7.1 H (1.3-6.7) K/mm3 Absolute Nucleated RBC 0.000 (0.0-0.012) K/mm3 Nucleated RBC % 0.0 (0.0-0.2) % Lactic Acid 0.8 (0.7-2.0) mmol/L Urine Color Yellow (Yellow) Urine Appearance Clear (Clear) Urine pH 5.0 (5.0-9.0) Ur Specific [place] 1.014 (1.001-1.035) Urine Protein 1+ H (Negative) mg/dL Urine Glucose (UA) Negative (Negative) mg/dL Urine Ketones Negative (Negative) mg/dL Ur Blood (Man) Negative (Negative) Urine Nitrate Negative (Negative) Urine Bilirubin Negative (Negative) Urine Urobilinogen 0.2 (<2.0) mg/dL Leukocyte Esterase Rfl 2+ H (Negative) SHARON/UL Urine RBC 0-2 (0-2) /hpf Urine WBC 21-50 H (0-3) /hpf Ur Squamous Epith Cells Moderate (Few) /hpf Urine Bacteria 1+ H /hpf Urine Casts 0-2 Discharge Plan Discharge Clinical Impression: Drug-induced diarrhea Patient Disposition: Home Condition: Stable Instructions: Gastroenteritis (ED), Abdominal Pain (ED) Additional Instructions: continue home medications, follow with your surgeon in the morning Patient Language: St Helen[place] Prescriptions: New ondansetron 4 mg tablet,disintegrating 4 mg PO Q6-8H PRN (Reason: nausea and vomiting) Qty: 14 0RF No Action cholecalciferol (vitamin D3) 25 mcg (1,000 unit) capsule 25 mcg PO DAILY cyanocobalamin (vitamin B-12) 1,000 mcg tablet, sublingual 1,000 mcg sublingual .QOD losartan 25 mg tablet 25 mg PO DAILY Qty: 100 1RF magnesium citrate [OneLAX Magnesium Citrate] Solution 150 ml PO ONCE Qty: 296 0RF Rx Instructions: as a single dose a night prior to start of vowst ciprofloxacin HCl 500 mg tablet 500 mg PO .COMPLEX Qty: 1 0RF Rx Instructions: 500 mg orally Take 1 tablet by mouth at 2pm the day before surgery.; metronidazole 500 mg tablet 500 mg PO .COMPLEX Qty: 3 0RF Rx Instructions: 500 mg orally Take 1 tablet by mouth at 1pm, 2pm, and 11pm the day before surgery.; [employer] 1.5 billion cell Capsule 1 cap PO DAILY atorvastatin 20 mg tablet 20 mg PO QHS Qty: 90 1RF lorazepam 1 mg tablet 1 mg PO BID PRN (Reason: Anxiety) Qty: 90 1RF Follow-up/Referrals: Ari Jordan MD [Primary Care Provider, [facility]] Time of Disposition: 19:48
== END 2024-11-26 20:11 | disposition home or self-care (01) ==
PROVIDERS: Emergency Provider Family Medicine; PCP Family Medicine
DX: K52.1 Toxic gastroenteritis and colitis (principal); T47.4X5A Adverse effect of other laxatives, initial encounter; C18.9 Malignant neoplasm of colon, unspecified; I10 Essential (primary) hypertension; E53.8 Deficiency of other specified B group vitamins; E78.5 Hyperlipidemia, unspecified; D50.9 Iron deficiency anemia, unspecified; M85.80 Other specified disorders of bone density and structure, unspecified site; F41.9 Anxiety disorder, unspecified; Z85.820 Personal history of malignant melanoma of skin; Z86.16 Personal history of COVID-19; Z86.73 Personal history of transient ischemic attack (TIA), and cerebral infarction without residual deficits; Z87.891 Personal history of nicotine dependence; Z90.49 Acquired absence of other specified parts of digestive tract
CPT/HCPCS: 36415; 81001; 83605; 85025; 96361; 96374; 99284; J2405; J7030

== ENCOUNTER 2024-11-27 14:03 | Inpatient (IN) | payer MEDICARE, MEDICAID, SELFPAY ==
[2024-11-19 09:53] VITALS: PULSE 77; RESP 16; TEMP 36.3; O2SAT 99; BMI 27.3
--- NOTE | 2024-11-19 10:09 | PC.NURSE ---
Report to the Outpatient Waiting Room, entrance under the green pavilion located off [facility], at time _1000am on date ___11/27/24____. Planned Procedure Time: 1200pm .? Time changes happen often and if your time is changed the preop area will call you the afternoon before. - You and your visitor will be asked to self-screen and do not enter if you have any COVID symptoms. Please call surgeon if you need to reschedule. - A mask is optional within the hospital at this time. Patients has BOWEL PREP Ordered with Dulcolax, Miralax per Dr May. Pt may have clear liquids day before (water, carbonated beverages, clear teas, apple juice) until 3 hours prior to surgery with a maximum of 20 ounces. - No food from midnight until time of surgery and no smoking, or chewing tobacco (or any form of nicotine). No chewing gum, candy or mints. (0900am) Pt has Ensure Bundles as directed too. Take only the following medications with a SIP of water on the morning of surgery: Antibiotics as scheduled, Lorazepam as needed DO NOT STOP ANY OF YOUR OTHER PRESCRIPTION MEDICATIONS PRIOR TO SURGERY EXCEPT THE FOLLOWING Hold all vitamins and supplements for 3 days per anesthesiologist. Date of last dose is 11/23/24 Medications to discontinue per physician NONE Date to take last dose__NONE Please no make-up, nail st helenian, hairspray, perfume, deodorant, or body powder the day of surgery.? No jewelry (including any body piercings) or valuables the day of surgery, leave them at home.? Please take a shower or bath the night before, or the morning of, surgery with an antibacterial soap. & HIBICLEANSE SCRUB ? Wear comfortable, loose fitting clothing. Bring overnight bag, Cell phone, manager heavy duty, good shoes. ? - Jewelry must be removed prior to entering the operating room.? Rings and piercings that are not removed may be cut off. - The hospital will not accept responsibility for valuables.? - Please leave all valuables, including medications, at home the day of surgery. If you are going home after surgery, a licensed tour bus driver/guide must drive you home.? - NO public transportation without another adult if you receive anesthesia. - We recommend that an adult stay with you for 24 hours following discharge. - We also recommend that you do not drive, make important decision, drink alcoholic beverages, or take any drugs that were not prescribed by your health care provider for at least 24 hours after your discharge time. Follow any additional instructions given to you from your surgeon. Telephone instructions given to ___Patient and asked if any additional questions and then verbalized understanding. Patient advised to call surgeon office or pre surgery nurse liaison [phone] if any additional questions.
[2024-11-27] VITALS (10 sets, daily range): BP systolic 104–138; BP diastolic 59–85; PULSE 82–96; RESP 12–20; TEMP 36.5–37.2; O2SAT 92–100; BMI 25.0
--- NOTE | 2024-11-27 09:19 | PM.IMHP ---
H&P: HPI History of Present Illness Date/Time: 11/27/24 09:19 Chief Complaint: Colon cancer Narrative: Rosanna is a 64 y/o female who presents to the office at the request of Naveen Van MD for an evaluation of a mass in her colon. Patient had a colonoscopy done on 10/14/24 which showed malignant appearing colonic mass at ascending colon, diverticulosis without perforation or abscess without bleeding. Pathology showed: Stomach, antrum, biopsy: - No histologic abnormality - No H. pylori - No intestinal metaplasia Stomach, body, biopsy: - No histologic abnormality - No H. pylori - No intestinal metaplasia Large intestine, ascending colon tumor, biopsy: - Adenocarcinoma Patient denies pain and states she tolerates a normal diet and has normal BM's. Review of Systems Review of Systems: All systems reviewed & are unremarkable except as noted in HPI and below PMFSH Past Medical History Medical History Iron deficiency anemia Recurrent Clostridioides difficile diarrhea (~06/2024) 04/06, 05/07, 07/05 Cancer of right colon (~10/2024) 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: CT of abdomen - no portal vein thrombosis 04/06: CT of the abdomen shows portal vein thrombosis in the right liver lobe, inferior mesenteric vein and sigmoid branch vein thrombosis Osteopenia Iron deficiency anemia Diverticulitis large intestine (~03/27/24) Melanoma s/p excision Heart murmur Vitamin B12 deficiency Lumbar spondylosis COVID (~08/2021) History of TIA (transient ischemic attack) (~04/2021) Rhabdomyolysis (~04/2021) Anxiety Chronic lumbar pain Hyperlipidemia Hypertension Surgical History Surgical History History of appendectomy History of tonsillectomy (~1964) History of melanoma excision Left shoulder History of cervical spinal surgery (~2014) History of back surgery (~2018) Hx of cholecystectomy (Unknown) Family History Family History Mother Family history of elevated blood lipids Family history of emphysema Hypertension Grandparent Acute myocardial infarction Family history of malignant neoplasm of urinary bladder Father Patient's father is Dementia Sibling COPD (chronic obstructive pulmonary disease) Other Anxiety Depression Family history of chronic obstructive pulmonary disease Skin cancer Social History Social History Smoking packs per day: 0.5 Smoking cigarettes per day: 10.0 Years smoked: 2 Smoking pack-years: 1.00 Smoking status: Former smoker Tobacco type: cigarettes Second hand tobacco smoke exposure: No Smoking end date: 03/13/77 Alcohol intake: never Substance use: never Substance use type: does not use Do You Feel Safe in your Home?: No Lack of Transportation: No Lack of Food: Never True Current Housing: I Have Housing Concerned About Future Housing: No Difficulty Paying Gas/Electric Bills: No Difficulty Paying for Meds: No Currently Unemployed: No Education: High School Diploma/GED Difficulty w/ Childcare or Family Care: No Living arrangements: alone Gender identity (if verbalized by the patient): Female Spiritual care concerns: No Meds Home Medications and Allergies Home Medications ?Medication ?Instructions ?Recorded ?Confirmed ?Type cholecalciferol (vitamin D3) 25 25 mcg PO DAILY 04/06/21 11/19/24 History mcg (1,000 unit) capsule Lactobacills gasseri-Bifidobac 1 cap PO DAILY 04/25/21 11/19/24 History bifidum,longum 1.5 billion cell capsule ([employer]) magnesium citrate (OneLAX 150 ml PO ONCE #296 mL 06/11/24 11/19/24 Rx Magnesium Citrate oral solution) cyanocobalamin (vitamin B-12) 1,000 mcg sublingual .QOD 07/02/24 11/19/24 History 1,000 mcg sublingual tablet losartan 25 mg tablet 25 mg PO DAILY #100 tabs 07/02/24 11/19/24 Rx atorvastatin 20 mg tablet 20 mg PO QHS #90 tabs 07/25/24 11/19/24 Rx ciprofloxacin HCl 500 mg tablet 500 mg PO .COMPLEX #1 tablet 10/23/24 11/19/24 Rx metronidazole 500 mg tablet 500 mg PO .COMPLEX #3 tabs 10/23/24 11/19/24 Rx lorazepam 1 mg tablet 1 mg PO BID PRN Anxiety #90 tabs 11/12/24 11/19/24 Rx ondansetron 4 mg disintegrating 4 mg PO Q6-8H PRN nausea and 11/26/24 Rx tablet vomiting #14 tabs Allergies Allergy/AdvReac Type Severity Reaction Status Date / Time Sulfa (Sulfonamide AdvReac Mild Hives Verified 11/26/24 17:20 Antibiotics) sulfamethizole AdvReac Mild Hives Verified 11/26/24 17:20 sulfamethoxazole AdvReac Mild HIVES Verified 11/26/24 17:20 trimethoprim AdvReac Mild Hives Verified 11/26/24 17:20 Exam Const: General: cooperative, comfortable and no acute distress Resp: Auscultation: clear to auscultation bilaterally Cardio: Rate: regular rate Rhythm: regular rhythm GI: Inspection: normal to inspection GI Palp: No abdominal tenderness, Yes Soft to palpation and No Tenderness to palpation present (GI) Skin: General skin exam: normal color and no rashes or lesions noted Neuro: General: patient oriented x3 and CN's II-XI intact bilaterally Extrem: General: normal to inspection and full ROM H&P: Results Imaging CT scan - abdomen: My impression: no metastatic dz Assessment and Plan Assessment and plan (1) Adenocarcinoma of colon: Code(s): C18.9 - Malignant neoplasm of colon, unspecified Status: Acute Assessment and Plan: will setup for AMBER R colectomy
--- NOTE | 2024-11-27 09:44 | WPDHPUPDATE1 ---
History and Physical Update Update Date/Time: 11/27/24 09:44 History and Physical has been reviewed, including an updated exam of the patient. There are NO changes in the patient's condition. Risks, benefits, and alternatives have been discussed and questions answered. Patient agrees to proceed with procedure.
[2024-11-27] MEDS: ACETAMINOPHEN 500 MG TABLET 1000 MG PO (10:30)
--- NOTE | 2024-11-27 10:36 | WPDANESEPPF ---
Anes - Initial Pre Proc Eval Procedure: Operation Date: 11/27/24 12:00 Proposed Procedures p Hand Assisted Laparoscopic Right Colectomy - Linn May MD Date/Time: 11/27/24 10:36 Surgeon: Linn May MD Pre Op Diagnosis: right colon CA Patient Data Age: 64 Gender: F Height: 1.5 m Weight: 61.3 kg Last Vital Signs Temp 36.3 C L 11/19/24 09:53 Pulse 77 11/19/24 09:53 Resp 16 11/19/24 09:53 Pulse Ox 99 11/19/24 09:53 O2 Del Method Room Air 11/19/24 09:53 Allergies Allergy/AdvReac Type Severity Reaction Status Date / Time Sulfa (Sulfonamide AdvReac Mild Hives Verified 11/27/24 10:52 Antibiotics) sulfamethizole AdvReac Mild Hives Verified 11/27/24 10:52 sulfamethoxazole AdvReac Mild HIVES Verified 11/27/24 10:52 trimethoprim AdvReac Mild Hives Verified 11/27/24 10:52 Home Medications ?Medication ?Instructions ?Recorded ?Confirmed ?Type cholecalciferol (vitamin D3) 25 25 mcg PO DAILY 04/06/21 11/19/24 History mcg (1,000 unit) capsule Lactobacills gasseri-Bifidobac 1 cap PO DAILY 04/25/21 11/19/24 History bifidum,longum 1.5 billion cell capsule ([employer]) magnesium citrate (OneLAX 150 ml PO ONCE #296 mL 06/11/24 11/19/24 Rx Magnesium Citrate oral solution) cyanocobalamin (vitamin B-12) 1,000 mcg sublingual .QOD 07/02/24 11/19/24 History 1,000 mcg sublingual tablet losartan 25 mg tablet 25 mg PO DAILY #100 tabs 07/02/24 11/19/24 Rx atorvastatin 20 mg tablet 20 mg PO QHS #90 tabs 07/25/24 11/19/24 Rx ciprofloxacin HCl 500 mg tablet 500 mg PO .COMPLEX #1 tablet 10/23/24 11/19/24 Rx metronidazole 500 mg tablet 500 mg PO .COMPLEX #3 tabs 10/23/24 11/19/24 Rx lorazepam 1 mg tablet 1 mg PO BID PRN Anxiety #90 tabs 11/12/24 11/19/24 Rx ondansetron 4 mg disintegrating 4 mg PO Q6-8H PRN nausea and 11/26/24 Rx tablet vomiting #14 tabs Patient hx anesthesia problems: none Family hx anesthesia problems: none Results Review: All pre-operative results and documents have been reviewed as part of the pre-operative evaluation. [facility] Past Medical History Medical History Iron deficiency anemia Recurrent Clostridioides difficile diarrhea (~06/2024) 04/06, 05/07, 07/05 Cancer of right colon (~10/2024) 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: CT of abdomen - no portal vein thrombosis 04/06: CT of the abdomen shows portal vein thrombosis in the right liver lobe, inferior mesenteric vein and sigmoid branch vein thrombosis Osteopenia Iron deficiency anemia Diverticulitis large intestine (~03/27/24) Melanoma s/p excision Heart murmur Vitamin B12 deficiency Lumbar spondylosis COVID (~08/2021) History of TIA (transient ischemic attack) (~04/2021) Rhabdomyolysis (~04/2021) Anxiety Chronic lumbar pain Hyperlipidemia Hypertension Surgical History Surgical History History of appendectomy History of tonsillectomy (~1964) History of melanoma excision Left shoulder History of cervical spinal surgery (~2014) History of back surgery (~2018) Hx of cholecystectomy (Unknown) Family History Family History Mother Family history of elevated blood lipids Family history of emphysema Hypertension Grandparent Acute myocardial infarction Family history of malignant neoplasm of urinary bladder Father Patient's father is Dementia Sibling COPD (chronic obstructive pulmonary disease) Other Anxiety Depression Family history of chronic obstructive pulmonary disease Skin cancer Social History Social History Smoking packs per day: 0.5 Smoking cigarettes per day: 10.0 Years smoked: 2 Smoking pack-years: 1.00 Smoking status: Former smoker Tobacco type: cigarettes Second hand tobacco smoke exposure: No Smoking end date: 03/13/77 Alcohol intake: never Substance use: never Substance use type: does not use Do You Feel Safe in your Home?: No Lack of Transportation: No Lack of Food: Never True Current Housing: I Have Housing Concerned About Future Housing: No Difficulty Paying Gas/Electric Bills: No Difficulty Paying for Meds: No Currently Unemployed: No Education: High School Diploma/GED Difficulty w/ Childcare or Family Care: No Living arrangements: alone Gender identity (if verbalized by the patient): Female Spiritual care concerns: No Anes - Eval Final PreProcedure Day of Procedure 11/27/24 10:36 Patient weight: overweight Heart: regular rate and rhythm Lungs: clear to auscultation Airway: Mallampati scale class II Neurological: alert and oriented Last oral intake: >/= 8 hours ASA classification: III Emergent: no Anesthetic plan: proceed Anesthesia type and monitoring: general ETT and standard monitoring Results Review: All pre-operative results and documents have been reviewed as part of the pre-operative evaluation. Informed Consent: The patient's anesthetic plan and its attendant risks and benefits were discussed with the patient/family/POA. Questions were solicited and answers provided to the satisfaction of the patient/family/POA.
[2024-11-27] MEDS: LACTATED RINGERS 1,000 ML 30 ML IV CONT ×2 (11:00→14:19)
[2024-11-27] MEDS: KETOROLAC 15 MG/ML VIAL (*BKC) IV PUSH (11:49)
[2024-11-27] MEDS: ceFAZolin 2 GM in SODIUM CHLORIDE 0.9% IV 50 ML 100 ML IVPB (12:19)
[2024-11-27] MEDS: metroNIDAZOLE 500 MG/ISO 100ML 500 MG/100 ML BAG 100 MG IVPB (12:31)
[2024-11-27] MEDS: BUPIVACAINE/EPINEPHRINE 0.5% 50 ML VIAL 30 ML INFILTRATE (12:54)
--- NOTE | 2024-11-27 13:31 | S_PTH ---
PATIENT: Rosanna Johns LOC: [id number] U#:[id number] AGE/SX: 64/F ROOM: 312 RE11/27/[address]: Linn May MD : 1960 BED: 01 DIS: 11/29/2024 SPEC #: [id number] RECD: 11/27/24 14:20 STATUS: YENIFER RELanden #: [id number] REBECCA: 11/27/24 13:[address]: Linn May DEPT: [facility] Surgical RECD BY: Katy Navas ENTERED: 11/27/24 14:20 SP TYPE: Surgical OTHR DR: Barbara Jordan MD Tissues: A - Colon Segment Tumor Procedures: Hematoxylin and Eosin Stain Gross and Microscopic Level 6
--- NOTE | 2024-11-27 14:09 | P.OP_ITS ---
Procedure Note - Detailed Date of Procedure 11/27/24 Pre-op Diagnosis right colon cancer Post-op Diagnosis Same Procedure Performed hand assisted laparoscopic right colectomy, extensive lysis of adhesions of approximately 45 minutes, mobilization of hepatic flexure Surgeon Linn May MD Anesthesia General and Local Indications 64-year-old female with right colon cancer biopsy proven found during colonoscopy Findings palpable colon mass noted in the proximal ascending colon, omental adhesions to right upper quadrant likely from previous cholecystectomy Description of Procedure The patient was taken to the operating room and placed in the supine position. After adequate induction of general anesthesia, the patient was prepped and draped normal sterile fashion. A time-out was then done to verify the patient's identity as well as the procedure being performed. I began by making a hand port incision around the umbilicus. This was carried down into the peritoneal cavity and there was noted adhesions to the upper anterior abdominal wall. These adhesions were taken down under visualization with the bovie cautery. Once the abdominal wall was cleared, the hand port was then placed. I then in sufflated the abdomen through the hand port. I then placed the camera through the hand port and under direct visualization, I placed 2x 5 mm ports in right lower and right mid abdomen. Once this was done, I examined the abdomen. There was noted to be a large amount of omental adhesions to the right upper quadrant and upper. This was taken down under direct visualization using blunt dissection and with the LigaSure device. It was noted that the patient had adhesions of the cecum and distal ileum to the pelvis. These adhesions were taken down both bluntly and with the ligasure under direct visualization. This adhesiolysis took approximately 45 minutes. Once the right colon was mobilized, I began my medial approach. I did this by 1st recognizing and transecting the right colic vessels. This was taken down near the base of the mesentery with the LigaSure. Once this was done, I carried this plane towards the hepatic flexure until I encountered the duodenum which was mobilized posteriorly. I then began taking down the lateral attachments of the terminal ileum and right colon including taking down the white line of T[place] and the hepatic flexure. Once this was done my medial and lateral dissection planes met. I was able to easily manipulate the right colon. The palpable mass was noted in the proximal ascending colon. At this point, I extracorporealyzed the right colon and terminal ileum. I then transected the terminal ileum approximately 10 cm proximal to the ileo colic junction with a 75 RUDDY stapler. I then localized the tumor in the proximal ascending colon. I measured 10 cm distal to this and transected the ascending colon at this point. Of note, I was able to palpate the middle colic vessels and the transection was done proximal to the vessels. I then performed a [id number] functional end-to-end anastomosis between the ileum and the ascending colon with a 75 RUDDY stapler followed by a TL 60 stapler. The anastomosis was noted to be tension-free and widely patent. I closed the messenteric defect with a 2.0 silk suture. I then copiously irrigated the abdomen, no other pathology was noted. I then closed the hand port incision with a 1 PDS suture at the fascial level. The subcutaneous tissue was closed with 3-0 Vicryl suture. The skin was closed with 4 O Monocryl subcuticular sutures including the 5 mm ports sites. Dermabond was then placed on all wounds. The patient tolerated the procedure well. She was extubated in the operating room postoperatively and will be transferred to the recovery room in stable condition. Estimated Blood Loss 50 Drains No Packing No Pathology Yes Complications No immediate complications Condition Stable Disposition PACU [facility] Billing Surgery - Charge Forward: Surgery Billing
[2024-11-27] MEDS: fentaNYL CITRATE INJ (*CRX) 100 MCG/2 ML VIAL 25 MCG IV PUSH ×3 (14:33→14:41)
--- NOTE | 2024-11-27 15:30 | ADMGEN ---
This patient, Rosanna Johns, was admitted to [facility] Room 312-01. Patient/family oriented to hospital policies and general routines including ID bracelet, bed and alarms, visiting hours, pain management, procedures, bathroom and other care routines, personal items, smoking policy, room service/diet, and visiting hours. Information on how to activate the Rapid Response Team has been discussed. Patient/Family are encouraged to report perceived risks to care and to ask questions if they do not understand what they are told or what they should do.
[2024-11-27] MEDS: HYDROcodone/acetaminophen (*CRX) 5-325 MG TABLET 1 TAB PO ×2 (16:43→21:07)
[2024-11-27] MEDS: LACTATED RINGERS 1,000 ML 100 ML IV CONT (16:52)
[2024-11-27] MEDS: HYDROmorphone HCL INJ (*CRX) 1 MG/ML SYR 0.5 MG IV PUSH (18:42)
[2024-11-27] MEDS: FAMOTIDINE 20 MG/2 ML VIAL IV PUSH (21:07)
[2024-11-27] MEDS: ceFAZolin 1 GM in SODIUM CHLORIDE 0.9% IV 50 ML 100 ML IVPB (21:08)
[2024-11-28] MEDS: LACTATED RINGERS 1,000 ML 80 ML IV CONT ×2 (03:21→05:54)
[2024-11-28 03:48] VITALS: BP 108/67; PULSE 84; RESP 16; TEMP 36.9; O2SAT 95
[2024-11-28] MEDS: ONDANSETRON INJ 4 MG/2 ML VIAL IV PUSH (04:46)
[2024-11-28] MEDS: ceFAZolin 1 GM in SODIUM CHLORIDE 0.9% IV 50 ML 100 ML IVPB (05:07)
[2024-11-28 06:19] LABS: Hematocrit 33.6 % (37.0-47.0); Hemoglobin 10.2 g/dL (12.0-15.0); Mean Corpuscular HGB Conc 30.4 g/dl (32-36); Mean Corpuscular Hemoglobin 26.0 pg (26-34); Mean Corpuscular Volume 85.7 fl (80-100); Platelet Count Result 235 k/mm3 (150-375); Red Blood Count 3.92 M/mm3 (4.2-5.4); White Blood Count 10.2 K/mm3 (4.5-10.0)
[2024-11-28 06:39] LABS: Anion Gap 2 mmol/L (4-12); Blood Urea Nitrogen 3 mg/dL (7-17); Calcium 8.5 mg/dL (8.4-10.2); Carbon Dioxide 30 mmol/L (22-30); Chloride 105 mmol/L (98-107); Estimated Glomerular Filt Rate > 60; Glucose 92 mg/dL (65-110); Potassium 3.8 mmol/L (3.4-5.0); Sodium 137 mmol/L (137-145)
[2024-11-28] MEDS: LOSARTAN POTASSIUM 25 MG TABLET PO (08:35)
[2024-11-28] MEDS: HYDROcodone/acetaminophen (*CRX) 5-325 MG TABLET 1 TAB PO ×2 (08:35→15:06)
[2024-11-28] MEDS: FAMOTIDINE 20 MG/2 ML VIAL IV PUSH ×2 (08:35→20:58)
[2024-11-28] MEDS: ENOXAPARIN 40 MG/0.4 ML SYRINGE SUB-Q (08:35)
[2024-11-28 08:39] VITALS: BP 125/70; PULSE 84; RESP 14; O2SAT 96
--- NOTE | 2024-11-28 09:56 | PM.PNGS ---
Progress Note: A&P Assessment and Plan (1) Adenocarcinoma of colon: Code(s): C18.9 - Malignant neoplasm of colon, unspecified Status: Acute Assessment and Plan: doing well, advance diet, dc mc, add Flexiril for muscle spasms, encourage OOB/IS Subjective Subjective Date/Time Seen: 11/28/24 09:56 Interval history: feels pretty good, c/o muscle spasms with movt, +flatus, sylvester clears Review of Systems Review of Systems: All systems reviewed & are unremarkable except as noted in HPI and below Exam Const: General: cooperative, comfortable and no acute distress Resp: Auscultation: clear to auscultation bilaterally Cardio: Rate: regular rate Rhythm: regular rhythm GI: Inspection: normal to inspection, distended and incision GI Palp: Yes abdominal tenderness and Yes Soft to palpation Objective Data Vital Signs Vital Signs: Vital Signs - 24 hr 11/27/24 11:46 11/27/24 14:03 11/27/24 14:19 Temperature 37.2 C 36.5 C 36.7 C Pulse Rate 83 83 86 Respiratory Rate 18 20 Blood Pressure 136/79 104/66 138/81 Pulse Oximetry 99 94 100 Oxygen Delivery Room Air Simple Face Mask Oxygen Flow Rate 8 11/27/24 14:30 11/27/24 14:45 11/27/24 15:00 Temperature Pulse Rate 86 87 86 Respiratory Rate 12 14 15 Blood Pressure 128/81 127/78 121/75 Pulse Oximetry 100 92 92 Oxygen Delivery Simple Face Mask Room Air Room Air Oxygen Flow Rate 8 11/27/24 15:12 11/27/24 15:48 11/27/24 15:48 Temperature 36.5 C Pulse Rate 87 96 Respiratory Rate 16 18 Blood Pressure 123/83 131/85 Pulse Oximetry 93 95 Oxygen Delivery Room Air Room Air Oxygen Flow Rate 11/27/24 19:48 11/27/24 23:48 11/28/24 03:48 Temperature 37.0 C 37.0 C 36.9 C Pulse Rate 84 82 84 Respiratory Rate 14 14 16 Blood Pressure 114/71 108/59 L 108/67 Pulse Oximetry 94 95 95 Oxygen Delivery Oxygen Flow Rate 11/28/24 08:39 Temperature Pulse Rate 84 Respiratory Rate 14 Blood Pressure 125/70 Pulse Oximetry 96 Oxygen Delivery Oxygen Flow Rate Intake/Output Intake/Output: Intake & Output 11/25/24 11/26/24 11/27/24 11/28/24 23:59 23:59 23:59 23:59 Intake Total 840 691 Output Total 150 1400 Balance 690 -709 Meds/Results Medications: Active Medications Generic Name Dose Route Start Last Admin Trade Name Freq PRN Reason Stop Dose Admin Hydrocodone Bitart/Acetaminophen 1 tab 11/27/24 14:03 11/28/24 08:35 Hydrocodone/Acetaminophen (*Crx) 5-325 Mg Tablet PO 1 tab Q4H PRN Administration Pain Rated 4-6 Enoxaparin Sodium 40 mg 11/28/24 09:00 11/28/24 08:35 Enoxaparin 40 Mg/0.4 Ml Syringe SUB-Q 40 mg DAILY CEE Administration Famotidine 20 mg 11/27/24 21:00 11/28/24 08:35 Famotidine 20 Mg/2 Ml Vial IV PUSH 20 mg Q12HR CEE Administration Hydromorphone HCl 1 mg 11/27/24 14:03 Hydromorphone Hcl Inj (*Crx) 1 Mg/Ml Syr IV PUSH Q2H PRN Breakthrough Pain Rated 7-10 or NPO Hydromorphone HCl 0.5 mg 11/27/24 14:03 11/27/24 18:42 Hydromorphone Hcl Inj (*Crx) 1 Mg/Ml Syr IV PUSH 0.5 mg Q2H PRN Administration Breakthrough Pain Rated 4-6 or NPO Lactated Ringer's 1,000 mls @ 80 mls/hr 11/27/24 05:55 11/28/24 05:54 Lr - Lactated Ringers Iv IV CONT 80 mls/hr .[id number] CEE Administration Ibuprofen 800 mg in 200 mls @ 400 mls/hr 11/27/24 14:03 Caldolor 800 Mg/200 Ml IVPB Q6H PRN Breakthrough Pain Rated 1-3 or NPO Lorazepam 1 mg 11/27/24 15:14 Lorazepam (*Crx) 1 Mg Tablet PO BID PRN Anxiety Losartan Potassium 25 mg 11/28/24 09:00 11/28/24 08:35 Losartan Potassium 25 Mg Tablet PO 25 mg DAILY CEE Administration Naloxone HCl 0.1 mg 11/27/24 14:03 Naloxone Hcl 0.4 Mg/Ml Vial IV PUSH Q2M PRN Opiate Reversal Ondansetron HCl 4 mg 11/27/24 14:03 11/28/24 04:46 Ondansetron Inj 4 Mg/2 Ml Vial IV PUSH 4 mg Q4H PRN Administration Nausea And Vomiting Labs Labs: Laboratory Results - last 24 hr 11/28/24 05:59 WBC 10.2 H RBC 3.92 L Hgb 10.2 L Hct 33.6 L MCV 85.7 MCH 26.0 MCHC 30.4 L RDW 18.4 H Plt Count 235 MPV 10.2 Sodium 137 Potassium 3.8 Chloride 105 Carbon Dioxide 30 Anion Gap 2 L BUN 3 L D Creatinine 0.70 Estim Creat Clear Calc Not Reportable Estimated GFR > 60 Glucose 92 Calcium 8.5
[2024-11-28] MEDS: IBUPROFEN IV 800 MG/200 ML 800 MG/200 ML BAG 400 MG IVPB ×2 (11:35→18:43)
[2024-11-28 15:07] VITALS: BP 130/62; PULSE 86; RESP 16; TEMP 36.8; O2SAT 97
[2024-11-28] MEDS: CYCLOBENZAPRINE HCL 10 MG TABLET PO (20:58)
[2024-11-28 21:36] VITALS: BP 133/81; PULSE 84; RESP 16; TEMP 36.9; O2SAT 98
[2024-11-28] MEDS: HYDROmorphone HCL INJ (*CRX) 1 MG/ML SYR IV PUSH (22:01)
[2024-11-29 06:07] VITALS: BP 130/79; PULSE 84; RESP 12; TEMP 37.3; O2SAT 96
[2024-11-29] MEDS: IBUPROFEN IV 800 MG/200 ML 800 MG/200 ML BAG 400 MG IVPB (08:28)
[2024-11-29] MEDS: LOSARTAN POTASSIUM 25 MG TABLET PO (08:33)
[2024-11-29] MEDS: FAMOTIDINE 20 MG/2 ML VIAL IV PUSH (08:33)
[2024-11-29] MEDS: HYDROcodone/acetaminophen (*CRX) 5-325 MG TABLET 1 TAB PO (08:33)
[2024-11-29] MEDS: CYCLOBENZAPRINE HCL 10 MG TABLET PO (08:34)
[2024-11-29] MEDS: ENOXAPARIN 40 MG/0.4 ML SYRINGE SUB-Q (08:35)
--- NOTE | 2024-11-29 10:15 | PM.DS ---
DS: Admitting Diagnosis Discharge Date 11/29/2024 Admitting Diagnosis right colon cancer DS: Discharge Diagnosis Discharge Diagnosis (1) Cancer of right colon: Onset Date: ~10/2024 Code(s): C18.2 - Malignant neoplasm of ascending colon Status: Acute Assessment and Plan: status post hand assisted laparoscopic right colectomy, doing well, continue routine postoperative care, home with p.o. analgesia and Colace, await path, follow-up 2 weeks DS: Summary Hospital Course Reason for hospitalization: right colon cancer Hospital Course: The patient is a 64-year-old female presenting to the hospital with right-sided colon cancer, biopsy proven found on colonoscopy. The patient underwent hand assisted laparoscopic right colectomy on 11/27/2024, please see operative report for details of that procedure. Postoperatively, the patient did well was transferred to the surgical floor. On postoperative day 1. , patient felt well but was having some incisional pain. She was able to have her diet advanced. Her Limon was removed. She was out of bed and moving around without difficulty. She was able to use her incentive spirometer appropriately. On postoperative day 2. , pain is much better controlled with p.o. analgesia. She continues to tolerate a diet and she is having bowel function. She will be discharged at this time with continued routine postoperative care. She will be sent home with p.o. analgesia and Colace. We are still awaiting her pathology at this time. She will follow up in 2 weeks. Status at Discharge Functional status at discharge: independent ambulation Overall status at discharge: patient is back to baseline Time Spent with Patient Time attestation: Total time spent providing and/or coordinating discharge services: Exam Const: General: cooperative, comfortable and no acute distress Resp: Auscultation: clear to auscultation bilaterally Cardio: Rate: regular rate Rhythm: regular rhythm GI: Inspection: normal to inspection, Abdominal wall edema, distended and incision GI Palp: Yes abdominal tenderness and Yes Soft to palpation DS: Data Data Completed and Pending Pending studies at discharge: Pending at discharge 11/27/24 13:31 Surgical [PTH] Routine Discharge Plan Discharge Attending physician on discharge: Linn May Discharging Clinician: Linn May Anticipated Discharge Date/Time: 11/29/24 13:00 Patient Disposition: Home Activity: may shower Diet: as tolerated Wound Care Instructions: incision open to air Discharge Instructions: no heavy lifting or staining ok to shower over incisions Patient Instructions: Antibiotic Form Patient Language: Estonian Stand Alone Forms: General Discharge Information Follow-up/Referrals: Linn May MD [Physician, General Surgery] - 2 Weeks Discharge Medications: New hydrocodone-acetaminophen 5-325 mg tablet 1 tablet PO Q6H PRN (Reason: pain) Qty: 30 0RF docusate sodium [Colace] 100 mg capsule 100 mg PO BID Qty: 30 0RF Continued cholecalciferol (vitamin D3) 25 mcg (1,000 unit) capsule 25 mcg PO DAILY cyanocobalamin (vitamin B-12) 1,000 mcg tablet, sublingual 1,000 mcg sublingual .QOD losartan 25 mg tablet 25 mg PO DAILY Qty: 100 1RF magnesium citrate [OneLAX Magnesium Citrate] Solution 150 ml PO ONCE Qty: 296 0RF Rx Instructions: as a single dose a night prior to start of vowst metronidazole 500 mg tablet 500 mg PO .COMPLEX Qty: 3 0RF Rx Instructions: 500 mg orally Take 1 tablet by mouth at 1pm, 2pm, and 11pm the day before surgery.; Nuritas 1.5 billion cell Capsule 1 cap PO DAILY ondansetron 4 mg tablet,disintegrating 4 mg PO Q6-8H PRN (Reason: nausea and vomiting) Qty: 14 0RF atorvastatin 20 mg tablet 20 mg PO QHS Qty: 90 1RF lorazepam 1 mg tablet 1 mg PO BID PRN (Reason: Anxiety) Qty: 90 1RF Discontinued ciprofloxacin HCl 500 mg tablet 500 mg PO .COMPLEX Qty: 1 0RF Rx Instructions: 500 mg orally Take 1 tablet by mouth at 2pm the day before surgery.; Date of admission: 11/27/24 14:03 Primary Care Provider: Ari Jordan Admitting Provider: Linn May Attending physician on admission: Linn May Condition: Stable
== END 2024-11-29 11:07 | disposition home or self-care (01) | DRG 331 ==
LOC: ANH3MEDSUR 15:36
PROVIDERS: Admitting Provider Surgery; PCP Family Medicine; Visit Provider Surgery
PROC: 0DTF4ZZ Resection of Right Large Intestine, Percutaneous Endoscopic Approach (ICD-10-PCS; CPT 44204; principal; 2024-11-27 12:00)
DX: C18.2 Malignant neoplasm of ascending colon (principal); D50.9 Iron deficiency anemia, unspecified; E53.8 Deficiency of other specified B group vitamins; E78.5 Hyperlipidemia, unspecified; I10 Essential (primary) hypertension; M47.816 Spondylosis without myelopathy or radiculopathy, lumbar region; Z90.49 Acquired absence of other specified parts of digestive tract; Z86.73 Personal history of transient ischemic attack (TIA), and cerebral infarction without residual deficits; Z87.891 Personal history of nicotine dependence
CPT/HCPCS: 36415; 80048; 81001; 83605; 85025; 85027; 88309; 96361; 96374; 99284; J0690; A9270; J1100; J1171; J1650; J1741; J1836; J1885; J2003; J2405; J2704; J3010; J7030; J7120

== ENCOUNTER 2024-12-03 05:32 | Inpatient (IN) | payer MEDICARE, MEDICAID, SELFPAY ==
[2024-12-03] VITALS (20 sets, daily range): BP systolic 91–126; BP diastolic 54–81; PULSE 100–111; RESP 12–20; TEMP 36.6–36.9; O2SAT 90–99; BMI 28.1
--- NOTE | 2024-12-03 | CONSULT_PTH ---
PATIENT: Rosanna Johns LOC: [facility] #:[id number] AGE/SX: 64/F ROOM: 341 RE12/03/[address]: Candice Anderson APRN : 1960 BED: 01 DIS: 01/01/2025 SPEC #: [id number] RECD: 12/03/24 08:46 STATUS: YENIFER RELanden #: [id number] REBECCA: 12/03/24 00:[address]: Nargis Hartley DEPT: [facility] Consult RECD BY: Apple Herr MLT Tissues: A - Peripheral Smear Procedures: Hematology Consult
--- NOTE | ~2024-12-03 | CT_ITS ---
EXAMINATION: CT abdomen pelvis w con DATE: 12/03/2024 07:17 INDICATION: Urinary retention. TECHNIQUE: Computed tomography (CT) of the abdomen and pelvis was performed with 100 mL Omnipaque-350 intravenous contrast. Automated exposure control and iterative reconstruction technique were employed. The dose-length product was 526.55 mGy-cm. COMPARISON: 10/15/2024 FINDINGS: Elevation the right hemidiaphragm with basilar atelectasis in the right middle and lower lobes. Additional mild discoid atelectasis at the anterior left lung base. Heart size is normal. No pericardial or pleural effusion. Small sliding- type hiatal hernia. Common bile duct is dilated to 1.5 cm and there is mild central intrahepatic biliary ductal dilation which may be related to prior cholecystectomy with surgical clips at the gallbladder fossa. Main pancreatic duct is dilated to 4 mm at the head of the pancreas. No evident obstructing stones or masses. Pancreas and liver are otherwise unremarkable. Spleen, bilateral adrenal glands and kidneys are normal. Postoperative change of recent right hemicolectomy with ileocolic anastomosis. There is a small amount of scattered free intraperitoneal gas and fluid in the abdomen and pelvis. There are also couple small complex non freely layering collections of gas and fluid in the right lower quadrant in the region of the ileocolic anastomosis which remain without a well-defined organized peripheral enhancing wall. There is a larger 7.0 x 2.0 x 3.5 cm layering gas and fluid collection also without well defined organized peripheral enhancing wall situated anterior to the uterus and exerting mass effect on posterior wall of the bladder. There is a small amount of gas within the otherwise normal-appearing bladder which could be related to recent instrumentation or Limon catheterization. Uterus and adnexa are unremarkable. There is edematous-appearing wall thickening along the sigmoid colon. No dilated bowel to suggest obstruction. No pathologically enlarged abdominal or pelvic lymphadenopathy. Moderate thoracic and mild lumbar spondylosis. L3 laminectomy and L3-L4 posterior spinal fusion with bilateral vertical frida and pedicle screw fixation. T6 hemangioma. IMPRESSION: 1. Small amount scattered free intraperitoneal gas and fluid and a few small collections of gas and fluid in the pelvis without well-defined peripheral enhancing wall to suggest organized abscess, likely related to recent right hemicolectomy and ileocolic anastomosis. 2. Persistent wall thickening along the sigmoid colon suggestive of scarring related to prior diverticulitis no significant surrounding inflammatory stranding to elevate suspicion for acute colitis/diverticulitis. 3. Persistent intra and extra hepatic biliary ductal dilation and dilation of the main pancreatic duct which may relate to prior cholecystectomy. Correlate with liver function tests and lipase levels and if clinically indicated could consider MRCP for further evaluation. Reviewed, dictated and finalized at location A. IMPRESSION: 1. Small amount scattered free intraperitoneal gas and fluid and a few small co llections of gas and fluid in the pelvis without well-defined peripheral enhanc ing wall to suggest organized abscess, likely related to recent right hemicolec joe and ileocolic anastomosis. 2. Persistent wall thickening along the sigmoid colon suggestive of scarring re lated to prior diverticulitis no significant surrounding inflammatory stranding to elevate suspicion for acute colitis/diverticulitis. 3. Persistent intra and extra hepatic biliary ductal dilation and dilation of t he main pancreatic duct which may relate to prior cholecystectomy. Correlate wi th liver function tests and lipase levels and if clinically indicated could con pleat patternmaker MRCP for further evaluation.
--- NOTE | ~2024-12-03 | CT_ITS ---
CT abdomen pelvis w con INDICATION:follow up abscess; please use po contrast . COMPARISON: None. TECHNIQUE: Axial images of the abdomen and pelvis were obtained following infusion of 100 mL Isovue 300. Dose optimization technique was utilized. FINDINGS: There is scarring and atelectasis at the right lung base. The liver parenchyma is unremarkable. There is dilatation of the intrahepatic biliary duct and common bile duct. The common bile duct measures 1.2 cm. The patient has had a cholecystectomy. The pancreas and spleen are normal in appearance. The adrenal glands are symmetric in size. The kidneys demonstrate symmetric uptake and excretion of contrast. No cystic mass is evident. There is no solid mass. There is no hydronephrosis. Colostomy is noted in the right abdomen. There is thickening and infiltrative changes involving the transverse and descending colon suggestive of colitis. There is a drainage catheter entering the left abdomen and terminating in the right pericolic gutter. This small amount of free fluid throughout the abdomen. There are no bowel obstruction. Bladder is unremarkable. There is no significant retroperitoneal lymphadenopathy. The aorta, visceral vessels and renal arteries demonstrate normal caliber and patency. The lower thoracic and lumbar vertebrae are in normal alignment. IMPRESSION: Decrease in intra-abdominal free fluid. All CT scans at this facility are performed using low dose modulation techniques as appropriate to perform exam including the following: automated exposure control; use of iterative reconstruction technique; adjustment of the mA and/or kV according to patient size (this includes techniques or standardized protocols for targeted exams where dose is matched to indication/reason for exam). Reviewed, dictated and finalized at location S. IMPRESSION: Decrease in intra-abdominal free fluid. All CT scans at this facility are performed using low dose modulation techniqu es as appropriate to perform exam including the following: automated exposure c ontrol; use of iterative reconstruction technique; adjustment of the mA and/or kV according to patient size (this includes techniques or standardized protocol s for targeted exams where dose is matched to indication/reason for exam).
--- NOTE | ~2024-12-03 | CT_ITS ---
EXAMINATION: CT abdomen pelvis wo con DATE: 12/13/2024 12:41 INDICATION: Increasing drain output TECHNIQUE: Computed tomography (CT) of the abdomen and pelvis was performed without intravenous but with water-soluble oral contrast. Automated exposure control and iterative reconstruction technique were employed. The dose-length product was 649.09 mGy-cm. COMPARISON: 12/10/2024 FINDINGS: Mild discoid atelectasis at the cephalad aspect of the right major fissure. There is collapse of the right middle lobe and partial collapse of the basilar segments of the right lower lobe, both with associated mucous plugging. Less severe mild basilar atelectasis at the lingula and left lower lobe. Heart size is normal. No pericardial or pleural effusion. Nasogastric tube tip in proximal side port along in the stomach. Status post cholecystectomy. Liver, spleen, pancreas and bilateral adrenal glands are normal. There is contrast enhancement of the normal-appearing bilateral kidneys with excreted contrast in the bilateral renal collecting systems and in the decompressed bladder related to earlier contrast-enhanced brain CT angiogram. Limon catheter within the bladder. Oral contrast material extensor the nondilated small bowel. Status post right hemicolectomy with right lower quadrant ileocolic anastomosis. The contrast extends beyond the anastomosis into the descending colon. There is also extral uminal leakage of contrast at the anastomosis with at least 4 tiny tracts of contrast extending posteriorly from the region of the anastomosis which are best appreciated on axial series 3, images 106-111. There are few small nonloculated collections of extraluminal contrast and gas extending craniocaudally along the right paracolic gutter and extending more anteriorly in the right lower quadrant along side the right lower quadrant drainage catheter. Layering contrast is also seen extending into the prior [place] peritoneal fluid collection along the anterior margin of the normal anteverted uterus. Additional small nonloculated fluid collections without contrast enhancement scattered throughout the left upper and lower quadrants. No pathologically enlarged abdominal or pelvic lymphadenopathy. L3 laminectomy and instrumented L3-L4 posterior spinal fusion. T7 hemangioma. IMPRESSION: 1. Status post right hemicolectomy with anastomotic leak at the right lower quadrant ileocolic anastomosis. 2. Moderate bibasilar atelectasis, right greater than left with mucous bony of right middle and lower lobar bronchi. Reviewed, dictated and finalized at location A. IMPRESSION: 1. Status post right hemicolectomy with anastomotic leak at the right lower tal drant ileocolic anastomosis. 2. Moderate bibasilar atelectasis, right greater than left with mucous bony of right middle and lower lobar bronchi.
--- NOTE | ~2024-12-03 | US_ITS ---
US renal BI 12/04/2024 21:27 Procedure: Realtime transabdominal ultrasound of the kidneys and bladder. Indication: Acute renal insufficiency Comparison: No prior studies for comparison. Findings: Renal echotexture is normal bilaterally without hydronephrosis, contour deforming mass or renal calculus. The right kidney measures 11.9 cm and left kidney measures 11.4 cm. There is a Limon catheter present decompressing the bladder. Impression: 1: Unremarkable renal ultrasound. No stones, masses or hydronephrosis. Reviewed, dictated and finalized at location O. Impression: 1: Unremarkable renal ultrasound. No stones, masses or hydronephrosis.
--- NOTE | ~2024-12-03 | CT_ITS ---
EXAMINATION: CTA chest PE protocol DATE: 12/13/2024 12:42 INDICATION: Tachypnea. TECHNIQUE: Computed tomography angiography (CTA) of the chest was performed with 100 mL Omnipaque-350 intravenous contrast timed to evaluate the pulmonary arteries. Coronal maximum intensity projection 3D-reconstructions were created by the technologist. Automated exposure control and iterative reconstruction technique were employed. The dose-length product was 188.68 mGy-cm. COMPARISON: Chest CT 12/10/24 FINDINGS: The lung volumes are small with relative elevation of right hemidiaphragm. There is moderate atelectasis in the inferior lungs. No pleural effusion. The heart size is normal. There are coronary artery calcifications. No pericardial effusion. There is no pulmonary embolus. Ascites is noted. The nasogastric tube tip is in the distal stomach. There is a surgical drain on the right. There is mild thoracic spondylosis. There is a hemangioma in T7 vertebral body. IMPRESSION: 1. No pulmonary embolus. Sensitivity is moderately decreased by motion artifact. 2. Small lung volumes with relative elevation of right hemidiaphragm. Moderate atelectasis in the inferior lungs 3. Ascites. Reviewed, dictated and finalized at location E. IMPRESSION: 1. No pulmonary embolus. Sensitivity is moderately decreased by motion artifact . 2. Small lung volumes with relative elevation of right hemidiaphragm. Moderate atelectasis in the inferior lungs 3. Ascites.
--- NOTE | ~2024-12-03 | NM_ITS ---
NM lung vent and perfusion INDICATION: Tachycardia. TECHNIQUE: The patient inhaled aerosolized mCi xenon-133. Following ventilation scan, mCi Tc 99m MAA was injected intravenously for perfusion images. Multiple images were then acquired. COMPARISON: No recent chest x-ray is available for direct comparison of the thin 04/24/2021. FINDINGS: No ventilation/perfusion mismatches are identified. There are low lung volumes in the right thorax with probable elevation of the right diaphragm. No focal ventilation or perfusion abnormalities are seen. IMPRESSION: 1: Normal perfusion scan. Probable shallow lung volumes. Recommend correlation with chest x-ray.. Reviewed, dictated and finalized at location O.
--- NOTE | ~2024-12-03 | CT_ITS ---
EXAMINATION: CT chest abdomen pelvis w con DATE: 12/10/2024 10:46 INDICATION: Fever. Hypoxia. Recent abdominal surgery. TECHNIQUE: Computed tomography (CT) of the chest, abdomen, and pelvis was performed with 100 mL Omnipaque-350 intravenous contrast. Automated exposure control and iterative reconstruction technique were employed. The dose-length product was 539.24 mGy-cm. COMPARISON: CT dated 12/06/2024 FINDINGS: CHEST CT: Volume loss in both lungs with right middle lobe collapse and additional bibasilar atelectasis in the lingula and bilateral lower lobes. Additional mild discoid atelectasis at the cephalad aspect of the right major fissure. No pneumonia, pulmonary edema or pleural effusion. Heart size is normal. No per icardial effusion. Thoracic aorta is normal in caliber with no dissection. Calcified subcarinal lymph node consistent with old granulomatous disease. No pathologically enlarged thoracic lymphadenopathy. Moderate thoracic spondylosis. T7 hemangioma. C4-C6 instrumented anterior spinal fusion but appreciated on the [employer] topogram. ABDOMEN/PELVIS CT: Nasogastric tube with distal tip at the gastric antrum. Diffuse hepatic steatosis. Common bile duct is dilated to 10 mm which may be related to prior cholecystectomy with no gallbladder visualized in the gallbladder fossa. No intrahepatic biliary ductal dilation. Spleen, pancreas, bilateral adrenal glands and kidneys are normal. Interval postoperative changes likely revision of an ileocolic anastomosis in the right abdomen. Right lower quadrant surgical drain which extends cephalad along the paracolic gutters with distal tip along the anterior margin of the caudal right hepatic lobe. Small amount of scattered likely residual postoperative free intraperitoneal gas and fluid. No evident organized abscess. Significant amount of oral contrast material previously seen distal small bowel has advanced across the ileocolic anastomosis, now present in the colon extending to the rectum. There is a small amount of residual dilute oral contrast material in the nondilated distal small bowel. No extraluminal contrast to suggest residual anastomotic leak. There is mild wall thickening in the sigmoid colon consistent with colitis. Minimal gas and a Limon catheter within the partially decompressed bladder. Uterus and bilateral adnexa are unremarkable. L3 laminectomy and instrumented L3-L4 posterior spinal fusion. IMPRESSION: 1. Small amount of likely residual free intraperineal gas and fluid post likely revision of an ileocolic anastomosis and placement of a surgical drain. No evident organized abscess or extraluminal contrast to suggest residual anastomotic leak. 2. Wall thickening along the sigmoid colon consistent with colitis infectious or inflammatory in etiology. Differential would also include residual reactive edema related to the prior anastomotic leak and recent surgery. 3. Volume loss in both lungs with atelectasis at the bilateral lung bases including complete collapse of the right middle lobe. Superimposed pneumonia not excludable but suspicion is low. 4. Chronic mild dilation the common bile duct without evident obstructing stone or mass, likely related to prior cholecystectomy but would correlate with liver function tests. Reviewed, dictated and finalized at location A. IMPRESSION: 1. Small amount of likely residual free intraperineal gas and fluid post likely revision of an ileocolic anastomosis and placement of a surgical drain. No laura dent organized abscess or extraluminal contrast to suggest residual anastomotic leak. 2. Wall thickening along the sigmoid colon consistent with colitis infectious o r inflammatory in etiology. Differential would also include residual reactive e vaishnavi related to the prior anastomotic leak and recent surgery. 3. Volume loss in both lungs with atelectasis at the bilateral lung bases inclu ding complete collapse of the right middle lobe. Superimposed pneumonia not exc ludable but suspicion is low. 4. Chronic mild dilation the common bile duct without evident obstructing stone or mass, likely related to prior cholecystectomy but would correlate with live r function tests.
--- NOTE | ~2024-12-03 | CT_ITS ---
EXAMINATION: CT abdomen pelvis wo con DATE: 12/06/2024 09:05 INDICATION: Abdominal pain. TECHNIQUE: Computed tomography (CT) of the abdomen and pelvis was performed without intravenous contrast. Automated exposure control and iterative reconstruction technique were employed. The dose-length product was 586.37 mGy-cm. COMPARISON: CT abdomen and pelvis 12/03/2024 FINDINGS: The visualized portions of the lung bases demonstrate mild atelectasis. There is a small left pleural effusion. The heart size is normal. No pericardial effusion. There is diffuse hepatic steatosis. The gallbladder is absent. The spleen, pancreas, adrenal glands, and kidneys are normal. There is a Limon catheter in expected position. There are changes of right hemicolectomy. The stomach is distended. There are multiple dilated loops of small bowel. There is oral contrast in normal caliber distal small bowel and in the ascending colon. There is free intraperitoneal gas, consistent with recent surgery. There is edema of the body wall and intra-abdominal fat. There is a small volume of ascites. There is fluid, gas, and contrast in right paracolic gutter collection measuring 7.2 x 1.8 x 7.9 cm. There are no pathologically enlarged lymph nodes. There are changes of posterior fusion procedure at L3-L4 with pedicle screws. There is a hemangioma in T7 vertebral body. IMPRESSION: 1. 7.2 x 1.8 x 7.9 cm collection of fluid, gas, and oral contrast in right paracolic gutter, consistent with anastomotic leak.. 2. Small volume of ascites. 3. Dilated small bowel, consistent with adynamic ileus. 4. Small left pleural effusion. Reviewed, dictated and finalized at location E. IMPRESSION: 1. 7.2 x 1.8 x 7.9 cm collection of fluid, gas, and oral contrast in right para colic gutter, consistent with anastomotic leak.. 2. Small volume of ascites. 3. Dilated small bowel, consistent with adynamic ileus. 4. Small left pleural effusion.
--- NOTE | ~2024-12-03 | CT_ITS ---
EXAMINATION: CTA brain DATE: 12/13/2024 10:51 INDICATION: Mental status change TECHNIQUE: Computed tomographic angiography (CTA) of the head was performed without and with 100 mL Omnipaque-350 intravenous contrast. Volume-rendered and maximum intensity projection 3D reconstructions of the intracranial arteries were created by the technologist on a separate workstation. Automated exposure control and iterative reconstruction technique were employed. The dose-length product was mGy-cm. COMPARISON: None. FINDINGS: No acute intracranial hemorrhage, acute infarction or abnormal extra axial fluid collection. There is mild scattered white matter hypoattenuation consistent with chronic small vessel ischemic disease. Symmetric prominence of the sulci and subarachnoid spaces overlying the convexities consistent with mild age- appropriate diffuse cerebral volume loss. Ventricles are normal and symmetric. No mass/mass effect. No abnormally enhancing brain lesions on the postcontrast imaging. Nasogastric tube extends to the left nasal cavity and into the oropharynx and beyond the inferior margin of the field of imaging. The orbits, paranasal sinuses and mastoid air cells are normal. There is no hemodynamically significant stenosis in the vertebral, basilar and internal carotid arteries. Left vertebral artery is dominant. Right vertebral artery is diminutive distal to the takeoff of the right posterior inferior cerebellar artery. There are no aneurysms identified. Both A1 segments are patent. Bilateral posterior communicating arteries are patent and appear to project at the sole supply to the bilateral posterior cerebral arteries. There is also a patent anterior to indicating artery. Cerebral arterial arborization appears symmetric. IMPRESSION: 1. Normal aging brain. No acute intracranial process or abnormally enhancing brain lesions. 2. Unremarkable cerebral CT angiogram with no hemodynamic significant stenosis, thrombosis or aneurysm. Reviewed, dictated and finalized at location A. IMPRESSION: 1. Normal aging brain. No acute intracranial process or abnormally enhancing br ain lesions. 2. Unremarkable cerebral CT angiogram with no hemodynamic significant stenosis, thrombosis or aneurysm.
--- NOTE | ~2024-12-03 | XR_ITS ---
Examination: XR chest 1V portable Clinical History: s.o.b Comparison: X-ray 12/07/2024 Technique: Portable AP Findings: NG tube, right PICC. Heart size normal. Persistent low lung volumes with streaky bibasilar opacities. No acute bony abnormality. IMPRESSION: 1. Persistent bibasilar atelectasis and/or airspace disease. 2. No significant change from one week prior. Reviewed, dictated and finalized at location R.
--- NOTE | ~2024-12-03 | XR_ITS ---
Examination: XR chest 1V portable Clinical History: Hemoptysis Comparison: 12/13/2024 Technique: Portable AP Findings: Right PICC. Heart size normal. Elevated right hemidiaphragm. Persistent streaky bibasilar opacities. No acute bony abnormality. IMPRESSION: 1. No change. 2. Bibasilar atelectasis. Reviewed, dictated and finalized at location R.
--- NOTE | ~2024-12-03 | CT_ITS ---
EXAMINATION: CT abdomen pelvis wo con DATE: 12/03/2024 15:30 INDICATION: Assess for anastomotic leak TECHNIQUE: Computed tomography (CT) of the abdomen and pelvis was performed without intravenous contrast but following administration of water-soluble oral contrast. CT imaging was performed 3 hours and 5 1/2 hours following oral contrast administration. Automated exposure control and iterative reconstruction technique were employed. The dose-length product was 751.51 mGy-cm. COMPARISON: IV contrast enhanced CT dated 12/03/2024 at 7:10 AM FINDINGS: Again seen is right basilar atelectasis along the elevated right hemidiaphragm. Heart size is normal. No pericardial or pleural effusion. Liver, spleen, pancreas, bilateral adrenal glands and kidneys are normal. Again noted is dilation of the common bile duct and mild central intrahepatic biliary ductal dilation likely related to prior cholecystectomy. Postoperative changes recent right hemicolectomy with ileocolic anastomosis in the right lower quadrant. There is large amount of residual oral contrast material within the stomach with contrast having advanced only to the mid jejunum on the initial imaging and with only minimal progression, still within the jejunum on the more delayed imaging. There is no nathalia dilation of the small bowel are evident transition point to suggest obstruction in this be most consistent with a postoperative ileus. No significant interval change in small amount of scattered free intraperineal gas and fluid in the abdomen and pelvis. Unchanged mild diverticulosis and chronic wall thickening along the sigmoid colon. No pathologically enlarged abdominal or pelvic lymphadenopathy. T6 hemangioma. L3 laminectomy and instrumented L3-L4 posterior spinal fusion. IMPRESSION: 1. Postoperative ileus with no dilated bowel or transition point and with the majority contrast remaining within the stomach and only a small amount of contrast having extended to the mid to distal jejunum 5 1/2 hours post oral contrast administration. No contrast in the region of the ileocolic anastomosis which precludes assessment for anastomotic leak. 2. No significant change in a nonspecific small amount of scattered free intraperineal gas and fluid in the abdomen and pelvis which could be directly secondary to the recent surgery. 3. Mild diverticulosis along the sigmoid colon where there is chronic wall thickening which could be due to scarring related to chronic diverticulitis versus less likely acute colitis or diverticulitis. Reviewed, dictated and finalized at location A. IMPRESSION: 1. Postoperative ileus with no dilated bowel or transition point and with the m ajority contrast remaining within the stomach and only a small amount of contra st having extended to the mid to distal jejunum 5 1/2 hours post oral contrast administration. No contrast in the region of the ileocolic anastomosis which pr ecludes assessment for anastomotic leak. 2. No significant change in a nonspecific small amount of scattered free intrap erineal gas and fluid in the abdomen and pelvis which could be directly seconda ry to the recent surgery. 3. Mild diverticulosis along the sigmoid colon where there is chronic wall thic kening which could be due to scarring related to chronic diverticulitis versus less likely acute colitis or diverticulitis.
--- NOTE | ~2024-12-03 | XR_ITS ---
Examination: XR chest 1V portable Clinical History: hypoxia Comparison: CT abdomen and pelvis one day prior Technique: Portable AP Findings: Right PICC. NG tube. Heart size normal. Streaky bibasilar opacities. No acute bony abnormality. IMPRESSION: 1. Bibasilar atelectasis and/or airspace disease. Reviewed, dictated and finalized at location R.
[2024-12-03 05:55] LABS: Add Urine Microscopic? YES; Appearance Urine Clear (Clear); Glucose Urine UA Negative (Negative); Leukocyte Esterase Ur Negative LEU/UL (Negative); Nitrate Urine Negative (Negative); Specific Grav Ur 1.024 (1.001-1.035)
[2024-12-03 05:59] LABS: Non Pathogenic Casts 0-2
--- OUTSIDE RECORDS SUMMARY | 2024-12-03 06:08 | XMS_ITS | Clinical Summary ---
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
[2024-12-03] MEDS: MORPHINE SULFATE (*CRX) 4 MG/ML INJ IV PUSH (06:22)
[2024-12-03 06:32] LABS: Hematocrit 34.0 % (37.0-47.0); Hemoglobin 10.3 g/dL (12.0-15.0); Mean Corpuscular HGB Conc 30.3 g/dl (32-36); Mean Corpuscular Hemoglobin 25.6 pg (26-34); Mean Corpuscular Volume 84.6 fl (80-100); Platelet Count Result 247 k/mm3 (150-375); Red Blood Count 4.02 M/mm3 (4.2-5.4); White Blood Count 4.8 K/mm3 (4.5-10.0)
--- NOTE | 2024-12-03 06:38 | ED_ITS ---
HPI - Female Genitourinary General Chief complaint: Urogenital-Female <Nargis Hartley MD - Last Filed: 12/03/24 06:42> Stated complaint: i cant pee <Nargis Hartley MD - Last Filed: 12/03/24 06:42> Time Seen by Provider: 12/03/24 05:41 <Nargis Hartley MD - Last Filed: 12/03/24 06:42> History of Present Illness HPI Narrative: Patient presenting here in distress due to inability to urinate, states that she woke up this morning cannot void. Had recent right colectomy for adenocarcinoma. <Nargis Hartley MD - Last Filed: 12/03/24 06:42> Related Data Home medications: Home Medications ?Medication ?Instructions ?Recorded ?Confirmed ?Last Taken ?Type cholecalciferol (vitamin D3) 25 25 mcg PO DAILY 11/19/24 10/14/24 History mcg (1,000 unit) capsule Lactobacills gasseri-Bifidobac 1 cap PO DAILY 04/25/21 11/19/24 10/14/24 History bifidum,longum 1.5 billion cell capsule (Taggify) cyanocobalamin (vitamin B-12) 1,000 mcg sublingual .QO D 07/02/24 11/19/24 10/13/24 History 1,000 mcg sublingual tablet <Nargis Hartley MD - Last Filed: 12/03/24 06:42> Allergies/Adverse reactions: Allergies Allergy/AdvReac Type Severity Reaction Status Date / Time Sulfa (Sulfonamide AdvReac Mild Hives Verified 11/27/24 10:52 Antibiotics) sulfamethizole AdvReac Mild Hives Verified 11/27/24 10:52 sulfamethoxazole AdvReac Mild HIVES Verified 11/27/24 10:52 trimethoprim AdvReac Mild Hives Verified 11/27/24 10:52 <Nargis Hartley MD - Last Filed: 12/03/24 06:42> Review of Systems 2 Review of Systems: All systems reviewed & are unremarkable except as noted in HPI and below <Nargis Hartley MD - Last Filed: 12/03/24 06:42> PMFSH Past Medical History Medical History: Medical History Iron deficiency anemia Recurrent Clostridioides difficile diarrhea (~06/2024) 04/06, 05/07, 07/05 Cancer of right colon (~10/2024) 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: CT of abdomen - no portal vein thrombosis 04/06: CT of the abdomen shows portal vein thrombosis in the right liver lobe, inferior mesenteric vein and sigmoid branch vein thrombosis Osteopenia Iron deficiency anemia Diverticulitis large intestine (~03/27/24) Melanoma s/p excision Heart murmur Vitamin B12 deficiency Lumbar spondylosis COVID (~08/2021) History of TIA (transient ischemic attack) (~04/2021) Rhabdomyolysis (~04/2021) Anxiety Chronic lumbar pain Hyperlipidemia Hypertension <Nargis Hartley MD - Last Filed: 12/03/24 06:42> Surgical History Surgical History: Surgical History History of appendectomy History of tonsillectomy (~1964) History of melanoma excision Left shoulder History of cervical spinal surgery (~2014) History of back surgery (~2018) Hx of cholecystectomy (Unknown) <Nargis Hartley MD - Last Filed: 12/03/24 06:42> Family History Family History: Family History Mother Family history of elevated blood lipids Family history of emphysema Hypertension Grandparent Acute myocardial infarction Family history of malignant neoplasm of urinary bladder Father Patient's father is Dementia Sibling COPD (chronic obstructive pulmonary disease) Other Anxiety Depression Family history of chronic obstructive pulmonary disease Skin cancer <Nargis Hartley MD - Last Filed: 12/03/24 06:42> Social History Social History: Social History Smoking packs per day: 0.5 Smoking cigarettes per day: 10.0 Years smoked: 2 Smoking pack-years: 1.00 Smoking status: Former smoker Tobacco type: cigarettes Second hand tobacco smoke exposure: No Alcohol intake: never Substance use: never Substance use type: does not use Do You Feel Safe in your Home?: No Lack of Transportation: No Lack of Food: Never True Current Housing: I Have Housing Concerned About Future Housing: No Difficulty Paying Gas/Electric Bills: No Difficulty Paying for Meds: No Currently Unemployed: No Education: High School Diploma/GED Difficulty w/ Childcare or Family Care: No Living arrangements: alone Gender identity (if verbalized by the patient): Female Spiritual care concerns: No <Nargis Hartley MD - Last Filed: 12/03/24 06:42> Exam 2 Narrative: EXAMINATION OF ORGAN SYSTEMS/BODY AREAS: Constitutional: Vital signs per nursing GENERAL: Appears extremely uncomfortable HEAD: Normal with no signs of head trauma. EYES: EOMI, conjunctiva normal ENT: Hearing grossly intact LUNGS: Nonlabored breathing. HEART: [Regular rate and rhythm] ABD: [Soft], slightly tender to palpation lower abdomen EXT: Normal range of motion SKIN: [No rashes or lesions.] NEURO: [Alert and oriented x 3. No gross focal sensory or strength deficits.] PSYCH: Normal affect <Nargis Hartley MD - Last Filed: 12/03/24 06:42> Course Course Emergency Course: FLOR: Patient signed out to me pending CT pelvis. On evaluation patient is uncomfortable and significantly tender in the lower quadrants. Patient is tachycardic. Blood pressures are in a normal range of 115/70, however for a patient with this much abdominal pain that is likely relative hypotension. She will be given a 30 cc/kilogram bolus. Started on Zosyn. CT abdomen pelvis showed some small patches of free air and free fluid in the abdomen. Given her presentation I am concerned for anastomotic leak. Surgery was consulted evaluate the patient bedside and she will be given p.o. contrast with a repeat CT scan later today. Patient admitted to the surgery service. <Pancho Diaz MD - Last Filed: 12/03/24 09:57> Vital Signs Vital signs: Vital Signs Temperature 98.1 F 12/03/24 05:41 Pulse Rate 100 12/03/24 05:41 Respiratory Rate 18 12/03/24 05:41 Blood Pressure 124/80 12/03/24 05:41 Pulse Oximetry 95 12/03/24 05:41 Oxygen Delivery Room Air 12/03/24 05:41 Temperature 98.1 F 12/03/24 05:41 Pulse Rate 106 H 12/03/24 09:01 Respiratory Rate 18 12/03/24 09:01 Blood Pressure 113/69 12/03/24 09:01 Pulse Oximetry 98 12/03/24 09:01 Oxygen Delivery Room Air 12/03/24 05:41 <Nargis Hartley MD - Last Filed: 12/03/24 06:42> Vital Signs Temperature 98.1 F 12/03/24 05:41 Pulse Rate 100 12/03/24 05:41 Respiratory Rate 18 12/03/24 05:41 Blood Pressure 124/80 12/03/24 05:41 Pulse Oximetry 95 12/03/24 05:41 Oxygen Delivery Room Air 12/03/24 05:41 Temperature 98.1 F 12/03/24 05:41 Pulse Rate 106 H 12/03/24 09:01 Respiratory Rate 18 12/03/24 09:01 Blood Pressure 113/69 12/03/24 09:01 Pulse Oximetry 98 12/03/24 09:01 Oxygen Delivery Room Air 12/03/24 05:41 <Pancho Diaz MD - Last Filed: 12/03/24 09:57> MDM - Female Genitourinary MDM Narrative Medical decision making narrative: Patient presents in distress reporting pain due to inability to urinate, Bladder scan showed 175cc and straight cath sent, urinalysis without obvious abnormality Despite the straight cath patient still crying and calling about pain, I am concerned there may be something else going on given her recent surgery, I will order labs and CT abdomen/pelvis Signed out to oncoming ER physician <Nargis Hartley MD - Last Filed: 12/03/24 06:42> Lab Data Result diagrams: 12/03/24 06:24 12/03/24 06:24 <Nargis Hartley MD - Last Filed: 12/03/24 06:42> Labs: Lab Results 12/03/24 12/03/24 12/03/24 Range/Units 05:47 06:24 09:47 WBC 4.8 (4.5-10.0) K/mm3 RBC 4.02 L (4.2-5.4) M/mm3 Hgb 10.3 L (12.0-15.0) g/dL Hct 34.0 L (37.0-47.0) % MCV 84.6 (80-100) fl MCH 25.6 L (26-34) pg MCHC 30.3 L (32-36) g/dl RDW 19.7 H (11.5-14.5) % Plt Count 247 (150-375) k/mm3 MPV 10.0 (7.4-10.4) fl Immature Gran % (Auto) Not Reportable Neut % (Auto) Not Reportable Lymph % (Auto) Not Reportable [place] % (Auto) Not Reportable Eos % (Auto) Not Reportable Baso % (Auto) Not Reportable Lymph # (Auto) Not Reportable [place] # (Auto) Not Reportable Eos # (Auto) Not Reportable Baso # (Auto) Not Reportable Abs Immat Gran (auto) Not Reportable Absolute Neuts (auto) Not Reportable Absolute Nucleated RBC Not Reportable Total Counted 100 Neutrophils % (Manual) 56 (46-73) % Band Neutrophils % 29 H (0-6) % Lymphocytes % (Manual) 11 L (18-44) % Monocytes % (Manual) 3 (3-9) % Eosinophils % (Manual) 1 (0-4) % Nucleated RBC % Not Reportable Abs Neuts (Manual) 4.08 (1.3-6.7) K/mm3 Abs Lymphs (Manual) 0.52 L (1.1-4.5) K/mm3 Abs Monocytes (Manual) 0.14 (0.1-0.90) K/mm3 Absolute Eos (Manual) 0.04 (0.02-0.50) K/mm3 Nucleated RBCs 2 % Toxic Granulation Present Bennett Rods Present Platelet Estimate Adequate (Adequate) Large Platelets Present Hypochromasia 1+ Anisocytosis 1+ Ovalocytes 1+ Angel Luis Cells 1+ Schistocytes None seen Sodium 137 (137-145) mmol/L Potassium 3.1 L (3.4-5.0) mmol/L Chloride 102 (98-107) mmol/L Carbon Dioxide 31 H (22-30) mmol/L Anion Gap 4 (4-12) mmol/L BUN 29 H D (7-17) mg/dL Creatinine 0.99 (0.7-1.0) mg/dL Estim Creat Clear Calc Not Reportable Estimated GFR 56 L (59 - ) Glucose 94 (65-110) mg/dL Lactic Acid Pending Calcium 9.7 (8.4-10.2) mg/dL Total Bilirubin 1.0 (0.2-1.3) mg/dL AST 35 (14-36) U/L ALT 35 (6-35) U/L Alkaline Phosphatase 242 H (38-126) U/L Total Protein 5.9 L (6.3-8.2) g/dL Albumin 2.9 L (3.5-5.1) g/dL Urine Color Dark yellow (Yellow) Urine Appearance Clear (Clear) Urine pH 5.5 (5.0-9.0) Ur Specific [place] 1.024 (1.001-1.035) Urine Protein 2+ H (Negative) mg/dL Urine Glucose (UA) Negative (Negative) mg/dL Urine Ketones Negative (Negative) mg/dL Ur Blood (Man) Negative (Negative) Urine Nitrate Negative (Negative) Urine Bilirubin Negative (Negative) Urine Urobilinogen 1.0 (<2.0) mg/dL Leukocyte Esterase Rfl Negative (Negative) SHARON/UL Urine RBC 0-2 (0-2) /hpf Urine WBC 0-5 (0-3) /hpf Ur Squamous Epith Cells Occasional (Few) /hpf Urine Bacteria None seen /hpf Urine Casts 0-2 <Nargis Hartley MD - Last Filed: 12/03/24 06:42> Lab Results 12/03/24 12/03/24 12/03/24 Range/Units 05:47 06:24 09:47 WBC 4.8 (4.5-10.0) K/mm3 RBC 4.02 L (4.2-5.4) M/mm3 Hgb 10.3 L (12.0-15.0) g/dL Hct 34.0 L (37.0-47.0) % MCV 84.6 (80-100) fl MCH 25.6 L (26-34) pg MCHC 30.3 L (32-36) g/dl RDW 19.7 H (11.5-14.5) % Plt Count 247 (150-375) k/mm3 MPV 10.0 (7.4-10.4) fl Immature Gran % (Auto) Not Reportable Neut % (Auto) Not Reportable Lymph % (Auto) Not Reportable [place] % (Auto) Not Reportable Eos % (Auto) Not Reportable Baso % (Auto) Not Reportable Lymph # (Auto) Not Reportable [place] # (Auto) Not Reportable Eos # (Auto) Not Reportable Baso # (Auto) Not Reportable Abs Immat Gran (auto) Not Reportable Absolute Neuts (auto) Not Reportable Absolute Nucleated RBC Not Reportable Total Counted 100 Neutrophils % (Manual) 56 (46-73) % Band Neutrophils % 29 H (0-6) % Lymphocytes % (Manual) 11 L (18-44) % Monocytes % (Manual) 3 (3-9) % Eosinophils % (Manual) 1 (0-4) % Nucleated RBC % Not Reportable Abs Neuts (Manual) 4.08 (1.3-6.7) K/mm3 Abs Lymphs (Manual) 0.52 L (1.1-4.5) K/mm3 Abs Monocytes (Manual) 0.14 (0.1-0.90) K/mm3 Absolute Eos (Manual) 0.04 (0.02-0.50) K/mm3 Nucleated RBCs 2 % Toxic Granulation Present Bennett Rods Present Platelet Estimate Adequate (Adequate) Large Platelets Present Hypochromasia 1+ Anisocytosis 1+ Ovalocytes 1+ Angel Luis Cells 1+ Schistocytes None seen Sodium 137 (137-145) mmol/L Potassium 3.1 L (3.4-5.0) mmol/L Chloride 102 (98-107) mmol/L Carbon Dioxide 31 H (22-30) mmol/L Anion Gap 4 (4-12) mmol/L BUN 29 H D (7-17) mg/dL Creatinine 0.99 (0.7-1.0) mg/dL Estim Creat Clear Calc Not Reportable Estimated GFR 56 L (59 - ) Glucose 94 (65-110) mg/dL Lactic Acid Pending Calcium 9.7 (8.4-10.2) mg/dL Total Bilirubin 1.0 (0.2-1.3) mg/dL AST 35 (14-36) U/L ALT 35 (6-35) U/L Alkaline Phosphatase 242 H (38-126) U/L Total Protein 5.9 L (6.3-8.2) g/dL Albumin 2.9 L (3.5-5.1) g/dL Urine Color Dark yellow (Yellow) Urine Appearance Clear (Clear) Urine pH 5.5 (5.0-9.0) Ur Specific [place] 1.024 (1.001-1.035) Urine Protein 2+ H (Negative) mg/dL Urine Glucose (UA) Negative (Negative) mg/dL Urine Ketones Negative (Negative) mg/dL Ur Blood (Man) Negative (Negative) Urine Nitrate Negative (Negative) Urine Bilirubin Negative (Negative) Urine Urobilinogen 1.0 (<2.0) mg/dL Leukocyte Esterase Rfl Negative (Negative) SHARON/UL Urine RBC 0-2 (0-2) /hpf Urine WBC 0-5 (0-3) /hpf Ur Squamous Epith Cells Occasional (Few) /hpf Urine Bacteria None seen /hpf Urine Casts 0-2 <Pancho Diaz MD - Last Filed: 12/03/24 09:57> Discharge Plan Discharge Clinical Impression: Acute pelvic pain, Abdominal pain <Nargis Hartley MD - Last Filed: 12/03/24 06:42> Patient Disposition: Still a Patient <Nargis Hartley MD - Last Filed: 12/03/24 06:42> Condition: Stable <Nargis Hartley MD - Last Filed: 12/03/24 06:42> Patient Language: Mauritanian <Nargis Hartley MD - Last Filed: 12/03/24 06:42> Prescriptions: No Action cholecalciferol (vitamin D3) 25 mcg (1,000 unit) capsule 25 mcg PO DAILY cyanocobalamin (vitamin B-12) 1,000 mcg tablet, sublingual 1,000 mcg sublingual .QOD losartan 25 mg tablet 25 mg PO DAILY Qty: 100 1RF magnesium citrate [OneLAX Magnesium Citrate] Solution 150 ml PO ONCE Qty: 296 0RF Rx Instructions: as a single dose a night prior to start of vowst metronidazole 500 mg tablet 500 mg PO .COMPLEX Qty: 3 0RF Rx Instructions: 500 mg orally Take 1 tablet by mouth at 1pm, 2pm, and 11pm the day before surgery.; Taggify 1.5 billion cell Capsule 1 cap PO DAILY hydrocodone-acetaminophen 5-325 mg tablet 1 tablet PO Q6H PRN (Reason: pain) Qty: 30 0RF docusate sodium [Colace] 100 mg capsule 100 mg PO BID Qty: 30 0RF ondansetron 4 mg tablet,disintegrating 4 mg PO Q6-8H PRN (Reason: nausea and vomiting) Qty: 14 0RF atorvastatin 20 mg tablet 20 mg PO QHS Qty: 90 1RF lorazepam 1 mg tablet 1 mg PO BID PRN (Reason: Anxiety) Qty: 90 1RF <Nargis Hartley MD - Last Filed: 12/03/24 06:42> Follow-up/Referrals: Ari Jordan MD [Primary Care Provider, Family Practice] <Nargis Hartley MD - Last Filed: 12/03/24 06:42>
[2024-12-03 06:54] LABS: Alanine Aminotransferase 35 U/L (6-35); Albumin Level 2.9 g/dL (3.5-5.1); Alkaline Phosphatase 242 U/L (38-126); Anion Gap 4 mmol/L (4-12); Aspartate Amino Transferase 35 U/L (14-36); Bilirubin,Total 1.0 mg/dL (0.2-1.3); Blood Urea Nitrogen 29 mg/dL (7-17); Calcium 9.7 mg/dL (8.4-10.2); Carbon Dioxide 31 mmol/L (22-30); Chloride 102 mmol/L (98-107); Estimated Glomerular Filt Rate 56; Glucose 94 mg/dL (65-110); Potassium 3.1 mmol/L (3.4-5.0); Sodium 137 mmol/L (137-145); Total Protein 5.9 g/dL (6.3-8.2)
--- NOTE | 2024-12-03 07:05 | PC.NURSE ---
-BSR completed per night RN; patient stated that her pain remains at 9-10/10 PPS. patient alert and oriented. will check with provider.
[2024-12-03 07:08] LABS: Band Neutrophils Percent 29 % (0-6); Eosinophils Absolute Manual 0.04 K/mm3 (0.02-0.50); Eosinophils Percent Manual 1 % (0-4); Lymphocytes Absolute Manual 0.52 K/mm3 (1.1-4.5); Lymphocytes Percent Manual 11 % (18-44); Monocytes Absolute Manual 0.14 K/mm3 (0.1-0.90); Monocytes Percent Manual 3 % (3-9); Neutrophils Absolute Manual 4.08 K/mm3 (1.3-6.7); Neutrophils Percent Manual 56 % (46-73); Total Cells Counted 100
[2024-12-03 07:09] LABS: Anisocytosis 1+; Hypochromasia 1+; Ovalocytes 1+
[2024-12-03 07:10] LABS: Auer Rods Present; Burr Cells 1+; Schistocytes None Seen; Toxic Granulation Present
[2024-12-03] MEDS: HYDROmorphone HCL INJ (*CRX) 1 MG/ML SYR 0.5 MG IV PUSH ×5 (07:37→22:18)
[2024-12-03] MEDS: LACTATED RINGERS 900 ML 999 ML IV CONT (07:47)
[2024-12-03] MEDS: POTASSIUM CHLORIDE INJ 40 MEQ in SODIUM CHLORIDE 0.9% IV 500 ML 130 MEQ IVPB (08:32)
[2024-12-03] MEDS: LACTATED RINGERS 1,000 ML 999 ML IV CONT (08:33)
[2024-12-03] MEDS: PIPERACILLIN/TAZOBACTAM SOD 3.375 GM in SODIUM CHLORIDE 0.9% IV 50 ML 100 ML IVPB ×3 (10:30→23:41)
--- NOTE | 2024-12-03 11:00 | PC.NURSE ---
This patient, Rosanna Johns, was admitted to [facility] Surg Room 332-02 at 1100. Patient/family oriented to hospital policies and general routines including ID bracelet, bed and alarms, visiting hours, pain management, procedures, bathroom and other care routines, personal items, smoking policy, room service/diet, and visiting hours. Information on how to activate the Rapid Response Team has been discussed. Patient/Family are encouraged to report perceived risks to care and to ask questions if they do not understand what they are told or what they should do. Report per JAD Clemens.
--- NOTE | 2024-12-03 11:32 | P.HP_ITS ---
H&P: HPI History of Present Illness Date/Time: 12/03/24 11:32 Chief Complaint: Abdominal pain Narrative: This is a 64-year-old female with right colon cancer who underwent a hand assisted laparoscopic right colectomy, extensive adhesiolysis, mobilization of hepatic flexure by Dr. May on 11/27/2024. Surgery was straightforward and she was discharged on postop day 2 after advancing her diet. She reports initially doing well after surgery. She did have an increase in abdominal the for stays home and vomited once, but relates this to the severity of her pain. Her pain eventually got better, but over the past few days she has had an increase in her abdominal pain and has felt constipated. Her pain is primarily in the suprapubic area and right lower quadrant. Her pain is different than it was with the incisional pain initially after surgery. She cannot recall her last bowel movement, but believes it was at least 4 days ago or more. She tried taking Colace [id number] yesterday. Today, she was having difficulty urinating and came into the ED for evaluation and concerns of urinary retention. In the ED, patient is tachycardic with her heart rate in the low 100 - 110s. Blood pressure is stable and she is afebrile. Labs showed a white blood cell count of 4800. Potassium 3.1, which was replaced in the ED with 40 mEq of KCl. BUN 29 and creatinine 0.99. Lactic acid 2.3. CT scan of the abdomen and pelvis with IV contrast showed a small amount of scattered free intraperitoneal gas and fluid and a few small collections of gas and fluid in the pelvis without well defined peripheral enhancing wall this suggest organized abscess. Likely related to recent right hemicolectomy and ileocolic anastomosis. There is also persistent wall thickening along the sigmoid colon suggestive of scarring related to prior diverticulitis with no findings to suggest acute colitis or diverticulitis. Our service was called by the ED physician and she is now seen. They performed a straight cath in the ED prior to my arrival. She reports not having much relief in her pain after the catheterization. She eventually received IV Dilaudid and did have some pain relief with that medication. She is still complaining of mid to right lower abdominal pain. Her heart rate is 114 on the cardiac technologist in the ED. She is not feeling nauseous or having any other complaints at this time. Review of Systems Review of Systems: All systems reviewed & are unremarkable except as noted in HPI and below [facility] Past Medical History Medical History (Updated 12/03/24 @ 11:51 by JEAN Herrera) Iron deficiency anemia Recurrent Clostridioides difficile diarrhea (~06/2024) 04/06, 05/07, 07/05 Cancer of right colon (~10/2024) 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: CT of abdomen - no portal vein thrombosis 04/06: CT of the abdomen shows portal vein thrombosis in the right liver lobe, inferior mesenteric vein and sigmoid branch vein thrombosis Osteopenia Iron deficiency anemia Diverticulitis large intestine (~03/27/24) Melanoma s/p excision Heart murmur Vitamin B12 deficiency Lumbar spondylosis COVID (~08/2021) History of TIA (transient ischemic attack) (~04/2021) Rhabdomyolysis (~04/2021) Anxiety Chronic lumbar pain Hyperlipidemia Hypertension Surgical History Surgical History (Updated 12/03/24 @ 11:46 by JEAN Herrera) History of partial colectomy 11/27/24 -hand assisted laparoscopic right colectomy History of appendectomy History of tonsillectomy (~1964) History of melanoma excision Left shoulder History of cervical spinal surgery (~2014) History of back surgery (~2018) Hx of cholecystectomy (Unknown) Family History Family History Mother Family history of elevated blood lipids Family history of emphysema Hypertension Grandparent Acute myocardial infarction Family history of malignant neoplasm of urinary bladder Father Patient's father is Dementia Sibling COPD (chronic obstructive pulmonary disease) Other Anxiety Depression Family history of chronic obstructive pulmonary disease Skin cancer Social History Social History Smoking packs per day: 0.5 Smoking cigarettes per day: 10.0 Years smoked: 2 Smoking pack-years: 1.00 Smoking status: Former smoker Tobacco type: cigarettes Second hand tobacco smoke exposure: No Alcohol intake: never Substance use: never Substance use type: does not use Do You Feel Safe in your Home?: No Lack of Transportation: No Lack of Food: Never True Current Housing: I Have Housing Concerned About Future Housing: No Difficulty Paying Gas/Electric Bills: No Difficulty Paying for Meds: No Currently Unemployed: No Education: High School Diploma/GED Difficulty w/ Childcare or Family Care: No Living arrangements: alone Gender identity (if verbalized by the patient): Female Spiritual care concerns: No Meds Home Medications and Allergies Home Medications ?Medication ?Instructions ?Recorded ?Confirmed ?Type cholecalciferol (vitamin D3) 25 25 mcg PO DAILY 11/19/24 History mcg (1,000 unit) capsule Lactobacills gasseri-Bifidobac 1 cap PO DAILY 04/25/21 11/19/24 History bifidum,longum 1.5 billion cell capsule ([employer]) magnesium citrate (OneLAX 150 ml PO ONCE #296 mL 06/1111/19/24 Rx Magnesium Citrate oral solution) cyanocobalamin (vitamin B-12) 1,000 mcg sublingual .QO D 07/02/24 11/19/24 History 1,000 mcg sublingual tablet losartan 25 mg tablet 25 mg PO DAILY #100 tabs 11/27/24 Rx atorvastatin 20 mg tablet 20 mg PO QHS #90 tabs 11/19/24 Rx metronidazole 500 mg tablet 500 mg PO .COMPLEX #3 tabs 10/23/24 11/19/24 Rx lorazepam 1 mg tablet 1 mg PO BID PRN Anxiety #90 tabs 11/12/24 11/27/24 Rx ondansetron 4 mg disintegrating 4 mg PO Q6-8H PRN naus ea and 11/26/24 Rx tablet vomiting #14 tabs docusate sodium 100 mg capsule 100 mg PO BID #30 caps 11/29/24 Rx (Colace) hydrocodone 5 mg-acetaminophen 325 1 tablet PO Q6H PRN pain #30 tabs 11/29/24 Rx mg tablet Allergies Allergy/AdvReac Type Severity Reaction Status Date / Time Sulfa (Sulfonamide AdvReac Mild Hives Verified 11/27/24 10:52 Antibiotics) sulfamethizole AdvReac Mild Hives Verified 11/27/24 10:52 sulfamethoxazole AdvReac Mild HIVES Verified 11/27/24 10:52 trimethoprim AdvReac Mild Hives Verified 11/27/24 10:52 Vital Signs Vital Signs - 24 hr 12/03/24 05:41 12/03/24 06:31 12/03/24 06:37 Temperature 98.1 F Pulse Rate 100 100 100 Respiratory Rate 18 18 Blood Pressure 124/80 107/64 113/70 Pulse Oximetry 95 97 96 Oxygen Delivery Room Air 12/03/24 06:46 12/03/24 07:01 12/03/24 07:22 Temperature Pulse Rate 101 H 102 H 107 H Respiratory Rate 20 16 20 Blood Pressure 104/66 107/72 113/72 Pulse Oximetry 97 97 99 Oxygen Delivery 12/03/24 07:31 12/03/24 07:42 12/03/24 07:46 Temperature Pulse Rate 106 H 105 H 104 H Respiratory Rate 20 17 18 Blood Pressure 126/72 124/81 118/78 Pulse Oximetry 97 96 95 Oxygen Delivery 12/03/24 08:01 12/03/24 08:16 12/03/24 08:19 Temperature Pulse Rate 105 H 105 H 105 H Respiratory Rate 19 17 19 Blood Pressure 117/74 104/66 Pulse Oximetry 96 96 96 Oxygen Delivery 12/03/24 08:30 12/03/24 08:31 12/03/24 08:46 Temperature Pulse Rate 106 H 106 H 105 H Respiratory Rate 16 17 17 Blood Pressure 104/74 108/66 Pulse Oximetry 96 96 97 Oxygen Delivery 12/03/24 09:01 12/03/24 09:45 Temperature Pulse Rate 106 H 111 H Respiratory Rate 18 17 Blood Pressure 113/69 118/71 Pulse Oximetry 98 98 Oxygen Delivery Exam Const: General: comfortable and no acute distress Nutritional Appearance: average body habitus Orientation/consciousness: patient oriented x3 HENMT: Head: normocephalic and atraumatic Ears: hearing grossly normal bilaterally Mouth: Yes moist mucous membranes Eyes: General: appearance normal, both eyes and all related structures Pupils: Equal, round and reactive pupils present Neck: Neck: normal visual inspection and full ROM Resp: Effort & Inspection: no respiratory distress Auscultation: clear to auscultation bilaterally Cardio: Rate: regular rate Rhythm: regular rhythm Peripheral pulses: Peripheral pulses 2+ throughout GI: Inspection: distended, incision (incisions dry with glue intact, no erythema) and no visible herniation GI Palp: Yes Soft to palpation, Yes Tenderness to palpation present (GI) (diffusely tender, worse in the RUQ and RLQ), Yes Guarding due to palpation present (GI) and No Rebound tenderness present Auscultation: Hypoactive bowel sounds present Rectal Exam: deferred Skin: General skin exam: normal color Neuro: General: moves all extremities and no focal motor deficits Speech: normal speech Motor exam (neuro): 5/5 motor strength present throughout Extrem: General: normal to inspection and no edema Psych: Mental Status: mental status grossly normal Attitude: cooperative Insight: Good insight present (Psych) Judgement: Good judgement present (Psych) H&P: Results Labs Labs: Short CBC 12/03/24 Range/Units 06:24 WBC 4.8 (4.5-10.0) K/mm3 Hgb 10.3 L (12.0-15.0) g/dL Hct 34.0 L (37.0-47.0) % Plt Count 247 (150-375) k/mm3 BMP 12/03/24 06:24 Sodium 137 Potassium 3.1 L Chloride 102 Carbon Dioxide 31 H BUN 29 H D Creatinine 0.99 Glucose 94 Calcium 9.7 Liver Function 12/03/24 Range/Units 06:24 Total Bilirubin 1.0 (0.2-1.3) mg/dL AST 35 (14-36) U/L ALT 35 (6-35) U/L Alkaline Phosphatase 242 H (38-126) U/L Albumin 2.9 L (3.5-5.1) g/dL Urine 12/03/24 Range/Units 05:47 Urine Color Dark yellow (Yellow) Urine Appearance Clear (Clear) Urine pH 5.5 (5.0-9.0) Ur Specific [place] 1.024 (1.001-1.035) Urine Protein 2+ H (Negative) mg/dL Urine Glucose (UA) Negative (Negative) mg/dL Imaging CT scan - abdomen: Radiologist's impression: ITS Impressions Abdomen/Pelvis CT 12/03/24 07:31 IMPRESSION: 1. Small amount scattered free intraperitoneal gas and fluid and a few small collections of gas and fluid in the pelvis without well-defined peripheral enhancing wall to suggest organized abscess, likely related to recent right hemicolectomy and ileocolic anastomosis. 2. Persistent wall thickening along the sigmoid colon suggestive of scarring related to prior diverticulitis no significant surrounding inflammatory stranding to elevate suspicion for acute colitis/diverticulitis. 3. Persistent intra and extra hepatic biliary ductal dilation and dilation of the main pancreatic duct which may relate to prior cholecystectomy. Correlate with liver function tests and lipase levels and if clinically indicated could consider MRCP for further evaluation. Assessment and Plan Assessment and plan (1) Abdominal pain: Qualifiers: Abdominal location: lower abdomen, unspecified Qualified Code(s): R10.30 - Lower abdominal pain, unspecified Code(s): R10.9 - Unspecified abdominal pain Status: Acute Assessment and Plan: * Patient presents 6 days postop following AMBER right colectomy for right colon cancer. She has had increased mid to right lower abdominal pain over the past few days and also developed urinary retention. Her WBC count is 4.8, but there is a left shift and she is tachycardic in the ER. These findings, along with her significant tenderness on exam with guarding, is concerning for possible anastomotic leak. Will empirically start her on IV Zosyn and make her NPO with IV fluids. I reviewed the CT scan with the Radiologist and there are a few small fluid collections around the anastomosis, which could be postsurgical changes or some old blood, but another differential would be fluid and gas collections from an anastomotic leak. We will order a CT scan with oral contrast a few hours before to rule this out. Her abdominal pain could also be postoperative pain or due to constipation, as she has not had a bowel movement in at least 4 days. Will continue to follow along and further plans depend on oral contrast CT results. (2) History of partial colectomy: Code(s): Z90.49 - Acquired absence of other specified parts of digestive tract Status: Resolved Assessment and Plan: * Postop day 6 following hand assisted laparoscopic right colectomy. Incisions are healing well. See plan above. (3) Urinary retention: Code(s): R33.9 - Retention of urine, unspecified Status: Acute Assessment and Plan: * Urinary retention s/p straight catheterization in the ED. CT scan showed a 7 x 3 cm fluid collection in the pelvis situated between the uterus and the bladder with some mass effect on the bladder. This could be contributing to her urinary retention, but will continue to monitor. Reviewed the CT with the Radiologist. Will not attempt percutaneous drainage of this fluid at this time as it is in a difficult location to access and is not a well organized collection at this time. * If she continues to have issues with urinary retention, will plan to place a Limon catheter (4) Adenocarcinoma of colon: Code(s): C18.9 - Malignant neoplasm of colon, unspecified Status: Acute Assessment and Plan: * Pathology showed adenocarcinoma and two tubular adenomas, with 4/13 lymph nodes positive. (5) Hypertension: Qualifiers: Hypertension type: primary hypertension Qualified Code(s): I10 - Essential (primary) hypertension Code(s): I10 - Essential (primary) hypertension Status: Chronic Assessment and Plan: * BP stable, will hold home meds for now while NPO. Will resume with her diet when appropriate. Monitor BP (6) Hyperlipidemia: Qualifiers: Hyperlipidemia type: unspecified Qualified Code(s): E78.5 - Hyperlipidemia, unspecified Code(s): E78.5 - Hyperlipidemia, unspecified Status: Acute Assessment and Plan: * Hold home meds while NPO Plan I have discussed the patient's case and plan of care with Dr. May.
--- NOTE | 2024-12-03 13:19 | ADMGEN ---
This patient, Rosanna Johns, was admitted to [facility] Surg Room 332-02. Patient/family oriented to hospital policies and general routines including ID bracelet, bed and alarms, visiting hours, pain management, procedures, bathroom and other care routines, personal items, smoking policy, room service/diet, and visiting hours. Information on how to activate the Rapid Response Team has been discussed. Patient/Family are encouraged to report perceived risks to care and to ask questions if they do not understand what they are told or what they should do.
[2024-12-03] MEDS: LACTATED RINGERS 1,000 ML 100 ML IV CONT (13:54)
[2024-12-03] MEDS: ONDANSETRON INJ 4 MG/2 ML VIAL IV PUSH (17:44)
[2024-12-04] VITALS (7 sets, daily range): BP systolic 112–139; BP diastolic 63–104; PULSE 113–121; RESP 18–20; TEMP 36.7–37.3; O2SAT 91–98
[2024-12-04] MEDS: HYDROmorphone HCL INJ (*CRX) 1 MG/ML SYR 0.5 MG IV PUSH ×2 (01:31→05:10)
[2024-12-04] MEDS: LACTATED RINGERS 1,000 ML 100 ML IV CONT ×2 (01:32→16:00)
[2024-12-04] MEDS: PIPERACILLIN/TAZOBACTAM SOD 3.375 GM in SODIUM CHLORIDE 0.9% IV 50 ML 100 ML IVPB ×2 (05:26→12:50)
[2024-12-04 06:48] LABS: Hematocrit 35.1 % (37.0-47.0); Hemoglobin 10.5 g/dL (12.0-15.0); Mean Corpuscular HGB Conc 29.9 g/dl (32-36); Mean Corpuscular Hemoglobin 25.2 pg (26-34); Mean Corpuscular Volume 84.2 fl (80-100); Platelet Count Result 372 k/mm3 (150-375); Red Blood Count 4.17 M/mm3 (4.2-5.4); White Blood Count 8.3 K/mm3 (4.5-10.0)
[2024-12-04 07:21] LABS: Anion Gap 12 mmol/L (4-12); Blood Urea Nitrogen 38 mg/dL (7-17); Calcium 9.4 mg/dL (8.4-10.2); Carbon Dioxide 22 mmol/L (22-30); Chloride 105 mmol/L (98-107); Estimated Glomerular Filt Rate 32; Glucose 82 mg/dL (65-110); Magnesium 2.4 mg/dL (1.6-2.3); Potassium 4.5 mmol/L (3.4-5.0); Sodium 139 mmol/L (137-145)
[2024-12-04 08:13] LABS: Neutrophils Percent Manual 76 % (46-73); Total Cells Counted 100
[2024-12-04 08:14] LABS: Anisocytosis 1+; Band Neutrophils Percent 17 % (0-6); Burr Cells 1+; Dohle Bodies Present; Hypochromasia 1+; Lymphocytes Absolute Manual 0.33 K/mm3 (1.1-4.5); Lymphocytes Percent Manual 4 % (18-44); Monocytes Absolute Manual 0.24 K/mm3 (0.1-0.90); Monocytes Percent Manual 3 % (3-9); Neutrophils Absolute Manual 7.71 K/mm3 (1.3-6.7); Schistocytes None Seen
[2024-12-04] MEDS: SODIUM CHLORIDE 0.9% IV 500 ML IV CONT (10:21)
--- NOTE | 2024-12-04 10:56 | PM.PNGS ---
Progress Note: A&P Assessment and Plan (1) Cancer of right colon: Onset Date: ~10/2024 Code(s): C18.2 - Malignant neoplasm of ascending colon Status: Acute Assessment and Plan: exam improved, continue to monitor, will start clears, we will administer fleets enema (2) Acute kidney injury: Code(s): N17.9 - Acute kidney failure, unspecified Status: Acute Assessment and Plan: will get hospitalist consult, fluid bolus, start clears Subjective Subjective Date/Time Seen: 12/04/24 10:56 Interval history: feels much better today, reports pain is largely resolved, would like something to eat Review of Systems Review of Systems: All systems reviewed & are unremarkable except as noted in HPI and below Exam Const: General: cooperative, comfortable and no acute distress Resp: Auscultation: diminished lung sounds Cardio: Rate: tachycardic Rhythm: regular rhythm GI: Inspection: normal to inspection, distended and incision GI Palp: No abdominal tenderness, Yes Soft to palpation, No Guarding due to palpation present (GI) and No Rigid due to palpation Objective Data Vital Signs Vital Signs: Vital Signs - 24 hr 12/03/24 11:22 12/03/24 11:37 12/03/24 14:01 Temperature 36.9 C 36.6 C Pulse Rate 110 H 102 H Respiratory Rate 12 16 Blood Pressure 108/70 107/63 Pulse Oximetry 90 91 Oxygen Delivery Room Air Oxygen Flow Rate 12/03/24 21:30 12/04/24 06:00 12/04/24 06:23 Temperature 36.9 C 36.7 C Pulse Rate 109 H 117 H Respiratory Rate 16 20 Blood Pressure 91/54 L 112/63 Pulse Oximetry 90 93 95 Oxygen Delivery Nasal Cannula Oxygen Flow Rate 2 Intake/Output Intake/Output: Intake & Output 12/01/24 12/02/24 12/03/24 12/04/24 23:59 23:59 23:59 23:59 Intake Total 2950 250 Output Total 650 100 Balance 2300 150 Meds/Results Medications: Active Medications Generic Name Dose Route Start Last Admin Trade Name Freq PRN Reason Stop Dose Admin Hydromorphone HCl 0.5 mg 12/03/24 12:07 12/04/24 05:10 Hydromorphone Hcl Inj (*Crx) 1 Mg/Ml Syr IV PUSH 0.5 mg Q2H PRN Administration Pain Rated 7-10 Piperacillin Sod/Tazobactam 50 mls @ 100 mls/hr 12/03/24 17:30 12/04/24 05:26 Sod 3.375 gm/ Sodium Chloride IVPB 100 mls/hr Q6HR CEE Administration Lactated Ringer's 1,000 mls @ 100 mls/hr 12/03/24 10:00 12/04/24 01:32 Lr - Lactated Ringers Iv IV CONT 100 mls/hr .Q10H CEE Administration Lorazepam 0.5 mg 12/03/24 12:09 Lorazepam (*Crx) 0.5 Mg Tablet PO Q6H PRN Anxiety Ondansetron HCl 4 mg 12/03/24 17:26 12/03/24 17:44 Ondansetron Inj 4 Mg/2 Ml Vial IV PUSH 4 mg Q4H PRN Administration Nausea And Vomiting Radiology Results: ITS Impressions Abdomen/Pelvis CT 12/03/24 15:36 IMPRESSION: 1. Postoperative ileus with no dilated bowel or transition point and with the majority contrast remaining within the stomach and only a small amount of contrast having extended to the mid to distal jejunum 5 1/2 hours post oral contrast administration. No contrast in the region of the ileocolic anastomosis which precludes assessment for anastomotic leak. 2. No significant change in a nonspecific small amount of scattered free intraperineal gas and fluid in the abdomen and pelvis which could be directly secondary to the recent surgery. 3. Mild diverticulosis along the sigmoid colon where there is chronic wall thickening which could be due to scarring related to chronic diverticulitis versus less likely acute colitis or diverticulitis. Labs Labs: Laboratory Results - last 24 hr 12/03/24 12/04/24 12:03 05:34 WBC 8.3 RBC 4.17 L Hgb 10.5 L Hct 35.1 L MCV 84.2 MCH 25.2 L MCHC 29.9 L RDW 20.7 H Plt Count 372 D MPV 10.6 H Immature Gran % (Auto) Not Reportable Neut % (Auto) Not Reportable Lymph % (Auto) Not Reportable [place] % (Auto) Not Reportable Eos % (Auto) Not Reportable Baso % (Auto) Not Reportable Lymph # (Auto) Not Reportable [place] # (Auto) Not Reportable Eos # (Auto) Not Reportable Baso # (Auto) Not Reportable Abs Immat Gran (auto) Not Reportable Absolute Neuts (auto) Not Reportable Absolute Nucleated RBC Not Reportable Total Counted 100 Neutrophils % (Manual) 76 H Band Neutrophils % 17 H Lymphocytes % (Manual) 4 L Monocytes % (Manual) 3 Nucleated RBC % Not Reportable Abs Neuts (Manual) 7.71 H Abs Lymphs (Manual) 0.33 L Abs Monocytes (Manual) 0.24 Dohle Bodies Present Platelet Estimate Adequate Large Platelets Present Hypochromasia 1+ Anisocytosis 1+ [place] Cells 1+ Schistocytes None seen Sodium 139 Potassium 4.5 Chloride 105 Carbon Dioxide 22 Anion Gap 12 BUN 38 H Creatinine 1.63 H Estim Creat Clear Calc Not Reportable Estimated GFR 32 L Glucose 82 Lactic Acid 2.1 H Calcium 9.4 Magnesium 2.4 H
--- NOTE | 2024-12-04 13:48 | PM.IMCN ---
Assessment and Plan Assessment and plan (1) Acute kidney injury: Code(s): N17.9 - Acute kidney failure, unspecified Status: Acute Assessment and Plan: Creatinine 0.99 and BUN 29, GFR 56 upon admission on 12/03. Now 1.63, BUN 38, GFR 32. Initially presented with difficulty urinating, did undergo straight catheterization in the ED and now has Limon placed. Concerned this is etiology for patient's DARRYL. - IV fluids: 2L bolus, now on LR at 100 mL/hr. - check CK, urine sodium, protein/creatinine, urine creatinine - UA: 2+ protein, otherwise unremarkable on 12/03 - bladder scanned in ED on 12/03, showed 177 mL. Did require straight catheterization in the ED on 12/03. Limon placed on 12/03, urine remains dark/cloudy. - consider renal ultrasound in nephrology consultation if no improvement with IV fluids/Limon placement - monitor I&Os (2) Urinary retention: Code(s): R33.9 - Retention of urine, unspecified Status: Acute Assessment and Plan: - reporting post-operative constipation, last BM was 4+ days prior to admission on 12/03, may be contributing to her retention - CT additionally showed 7 x 3 cm fluid collection in the pelvis situated between the uterus and the bladder with some mass effect on the bladder. General Surgery aware of issue, however it is in a location that is difficult to access and not a well organized collection, could also be contributing to retention. - Limon placed on 12/03, started on Flomax - likely source of patient's DARRYL (3) History of partial colectomy: Code(s): Z90.49 - Acquired absence of other specified parts of digestive tract Status: Resolved Assessment and Plan: Underwent a hand assisted laparoscopic right colectomy, extensive adhesiolysis, mobilization of hepatic flexure by Dr. May on 11/27/24. Pathology showed adenocarcinoma and two tubular adenomas, with 4/13 lymph nodes positive. - presented 6 days postop with increased mid to right lower abdominal pain and urinary retention. - patient presents 6 days postop following AMBER right colectomy for right colon cancer. She has had increased mid to right lower abdominal pain over the past few days and also developed urinary retention. - exam findings and CT concerning for possible anastomotic leak - started on Zosyn on 12/03 - care managed by General Surgery team CT abdomen/pelvis, 12/03 (7:31): 1. Small amount scattered free intraperitoneal gas and fluid and a few small collections of gas and fluid in the pelvis without well-defined peripheral enhancing wall to suggest organized abscess, likely related to recent right hemicolectomy and ileocolic anastomosis. 2. Persistent wall thickening along the sigmoid colon suggestive of scarring related to prior diverticulitis no significant surrounding inflammatory stranding to elevate suspicion for acute colitis/diverticulitis. 3. Persistent intra and extra hepatic biliary ductal dilation and dilation of the main pancreatic duct which may relate to prior cholecystectomy. Correlate with liver function tests and lipase levels and if clinically indicated could consider MRCP for further evaluation. CT repeated later on 12/03 (15:36): 1. Postoperative ileus with no dilated bowel or transition point and with the majority contrast remaining within the stomach and only a small amount of contrast having extended to the mid to distal jejunum 5 1/2 hours post oral contrast administration. No contrast in the region of the ileocolic anastomosis which precludes assessment for anastomotic leak. 2. No significant change in a nonspecific small amount of scattered free intraperineal gas and fluid in the abdomen and pelvis which could be directly secondary to the recent surgery. 3. Mild diverticulosis along the sigmoid colon where there is chronic wall thickening which could be due to scarring related to chronic diverticulitis versus less likely acute colitis or diverticulitis. (4) Hyperlipidemia: Qualifiers: Hyperlipidemia type: unspecified Qualified Code(s): E78.5 - Hyperlipidemia, unspecified Code(s): E78.5 - Hyperlipidemia, unspecified Status: Chronic Assessment and Plan: - hold home medications while NPO, now on clear liquids but currently monitoring toleration (5) Hypertension: Qualifiers: Hypertension type: primary hypertension Qualified Code(s): I10 - Essential (primary) hypertension Code(s): I10 - Essential (primary) hypertension Status: Chronic Assessment and Plan: - chronic, currently 112/63, stable. - hold home medications while NPO, now on clear liquids but currently monitoring toleration - monitor Plan Diet: Clear liquid GI Prophylaxis: n/a DVT Prophylaxis: SCDs IV fluids: 2.5L bolus -> 100 mL/hr Lines/Tubes: peripheral IV Code Status: full code HPI Date of Consult Consult date: 12/04/24 Requesting Physician: Linn May MD Primary Care Provider: Barbara Jordan MD Consult Narrative Reason for consult: DARRYL Narrative: 64 y/o F with PMH of cancer the right colon S/P right colectomy, thrombosis of the mesenteric vein, WILL, diverticulitis, rhabdomyolysis (2021), hyperlipidemia and hypertension presented here on 12/03 with difficulty urinating. The patient had originally presented to [place] [facility] on 12/03/2024 for further evaluation of inability to urinate. She recently underwent a hand assisted laparoscopic right colectomy, extensive adhesiolysis, mobilization of hepatic flexure by Dr. May on 11/27/2024. She was discharged on postop day 2, surgery was straightforward, and had reportedly been doing well since surgery. Since being home she reports 1 episode of vomiting, and gradually worsening abdominal pain, and constipation. She describes the abdominal pain as suprapubic, right lower quadrant, XX, radiating/nonradiating, constant/intermittent, (duration), aggravated by XX, and alleviated by XX. Believes her last bowel movement was 4 days or more prior to arrival, unsure of specific date. She trialed Colace OTC day prior to arrival without relief. When she sought care yesterday on 12/03 after she developed difficulty urinating. ED workup showed mild hypokalemia (3.1), lactic acid 2.3, UA showed 2+ protein otherwise unremarkable, renal function within normal limits, and CT of the abdomen/pelvis showed small amount of scattered free intra peritoneal gas and fluid in the pelvis without well defined peripheral enhancing wall this suggest organized abscess. She was admitted for further work up of a possible anastomsis leak. Since admission, her creatnine has increased from 0.99 - 1.63. She is currently reporting XX. Denies XX. Lab values at time of consult: No leukocytosis, hemoglobin 10.5 (10.2 on 11/28), creatinine 1.63 and GFR 32 (0.99 and GFR 56 on 12/03), and magnesium 2.4. Review of Systems Review of Systems: All systems reviewed & are unremarkable except as noted in HPI and below PMFSH Past Medical History Medical History Iron deficiency anemia Recurrent Clostridioides difficile diarrhea (~06/2024) 04/06, 05/07, 07/05 Cancer of right colon (~10/2024) 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: CT of abdomen - no portal vein thrombosis 04/06: CT of the abdomen shows portal vein thrombosis in the right liver lobe, inferior mesenteric vein and sigmoid branch vein thrombosis Osteopenia Iron deficiency anemia Diverticulitis large intestine (~03/27/24) Melanoma s/p excision Heart murmur Vitamin B12 deficiency Lumbar spondylosis COVID (~08/2021) History of TIA (transient ischemic attack) (~04/2021) Rhabdomyolysis (~04/2021) Anxiety Chronic lumbar pain Hyperlipidemia Hypertension Surgical History Surgical History History of partial colectomy 11/27/24 -hand assisted laparoscopic right colectomy History of appendectomy History of tonsillectomy (~1964) History of melanoma excision Left shoulder History of cervical spinal surgery (~2014) History of back surgery (~2018) Hx of cholecystectomy (Unknown) Family History Family History Mother Family history of elevated blood lipids Family history of emphysema Hypertension Grandparent Acute myocardial infarction Family history of malignant neoplasm of urinary bladder Father Patient's father is Dementia Sibling COPD (chronic obstructive pulmonary disease) Other Anxiety Depression Family history of chronic obstructive pulmonary disease Skin cancer Social History Social History Smoking packs per day: 0.5 Smoking cigarettes per day: 10.0 Years smoked: 2 Smoking pack-years: 1.00 Smoking status: Never smoker Tobacco type: cigarettes Second hand tobacco smoke exposure: No Alcohol intake: never Substance use: never Substance use type: does not use Do You Feel Safe in your Home?: No Lack of Transportation: No Lack of Food: Never True Current Housing: I Have Housing Concerned About Future Housing: No Difficulty Paying Gas/Electric Bills: No Difficulty Paying for Meds: No Currently Unemployed: No Education: High School Diploma/GED Difficulty w/ Childcare or Family Care: No Living arrangements: alone Gender identity (if verbalized by the patient): Female Spiritual care concerns: No Meds Home Medications and Allergies Home Medications ?Medication ?Instructions ?Recorded ?Confirmed ?Type cholecalciferol (vitamin D3) 25 25 mcg PO DAILY 04/06/21 12/03/24 History mcg (1,000 unit) capsule Lactobacills gasseri-Bifidobac 1 cap PO DAILY 04/25/21 12/03/24 History bifidum,longum 1.5 billion cell capsule ([employer]) cyanocobalamin (vitamin B-12) 1,000 mcg sublingual .QOD 07/02/24 12/03/24 History 1,000 mcg sublingual tablet losartan 25 mg tablet 25 mg PO DAILY #100 tabs 07/02/24 12/03/24 Rx atorvastatin 20 mg tablet 20 mg PO QHS #90 tabs 07/25/24 12/03/24 Rx lorazepam 1 mg tablet 1 mg PO BID PRN Anxiety #90 tabs 11/12/24 12/03/24 Rx ondansetron 4 mg disintegrating 4 mg PO Q6-8H PRN nausea and 11/26/24 12/03/24 Rx tablet vomiting #14 tabs docusate sodium 100 mg capsule 100 mg PO BID #30 caps 11/29/24 12/03/24 Rx (Colace) hydrocodone 5 mg-acetaminophen 325 1 tablet PO Q6H PRN pain #30 tabs 11/29/24 12/03/24 Rx mg tablet omega-3 fatty acids 500 mg capsule 500 mg PO DAILY 12/03/24 12/03/24 History (MaxEPA) Allergies Allergy/AdvReac Type Severity Reaction Status Date / Time Sulfa (Sulfonamide AdvReac Mild Hives Verified 11/27/24 10:52 Antibiotics) sulfamethizole AdvReac Mild Hives Verified 11/27/24 10:52 sulfamethoxazole AdvReac Mild HIVES Verified 11/27/24 10:52 trimethoprim AdvReac Mild Hives Verified 11/27/24 10:52 Vital Signs Vital Signs - 24 hr 12/03/24 14:01 12/03/24 21:30 12/04/24 06:00 Temperature 97.9 F 98.5 F 98.1 F Pulse Rate 102 H 109 H 117 H Respiratory Rate 16 16 20 Blood Pressure 107/63 91/54 L 112/63 Pulse Oximetry 91 90 93 Oxygen Delivery Oxygen Flow Rate 12/04/24 06:23 12/04/24 08:00 Temperature Pulse Rate Respiratory Rate Blood Pressure Pulse Oximetry 95 98 Oxygen Delivery Nasal Cannula Nasal Cannula Oxygen Flow Rate 2 2 Exam Const: General: comfortable and no acute distress Other: , female, nontoxic appearance HENMT: Face/Nose/Sinus: Normal nares present Mouth: Yes moist mucous membranes Eyes: General: appearance normal, both eyes and all related structures Sclera: sclerae normal Pupils: Equal, round and reactive pupils present EOM: EOMs intact bilaterally Resp: Effort & Inspection: normal respiratory effort Auscultation: clear to auscultation bilaterally Cardio: Rate: regular rate Rhythm: regular rhythm Other: S1-S2 present without murmur, rub, ectopy GI: Other: Abdomen mildly distended but soft. No tenderness on exam. Postsurgical incision well approximated, sutures in place, no erythema or drainage. Hypoactive bowel sounds in all quadrants. Skin: General skin exam: normal color and no rashes or lesions noted Other: Postsurgical incision to abdomen is well approximated, sutures in place, no signs of infection Neuro: Speech: normal speech Motor exam (neuro): 5/5 motor strength present throughout Sensory Exam: normal sensation Other: A&O x4 Extrem: General: normal to inspection Psych: Mental Status: mental status grossly normal Affect: normal affect Other: Good insight and judgment, pleasant Results Labs 12/04/24 05:34 12/04/24 05:34 Labs: Short CBC 12/04/24 Range/Units 05:34 WBC 8.3 (4.5-10.0) K/mm3 Hgb 10.5 L (12.0-15.0) g/dL Hct 35.1 L (37.0-47.0) % Plt Count 372 D (150-375) k/mm3 BMP 12/04/24 05:34 Sodium 139 Potassium 4.5 Chloride 105 Carbon Dioxide 22 BUN 38 H Creatinine 1.63 H Glucose 82 Calcium 9.4 Quality VTE Prophylaxis VTE prophylaxis: mechanical ordered Hospitalist MIPS Advance Care Plan I have confirmed that the patient's Advanced Care Plan is present, code status is documented, or surrogate decision maker is listed in patient medical record.: Yes Medication Reconciliation I have utilized all available resources to obtain, update and review the patients current medications (includes all prescriptions, OTC, herbals, cannabis, and nutritional supplements).: Yes
[2024-12-04 14:05] LABS: Creatine Kinase < 20 U/L (30-135)
[2024-12-04] MEDS: PIPERACILLIN/TAZOBACTAM SOD 2.25 GM in SODIUM CHLORIDE 0.9% IV 50 ML 100 ML IVPB ×2 (17:23→23:11)
[2024-12-04] MEDS: LORazepam (*CRX) 0.5 MG TABLET PO (20:09)
[2024-12-04] MEDS: ACETAMINOPHEN 325 MG TABLET 650 MG PO (21:13)
[2024-12-04] MEDS: LACTATED RINGERS 1,000 ML 500 ML IV CONT (22:11)
[2024-12-04 22:44] LABS: Procalcitonin 13.7 ng/mL
[2024-12-05] VITALS (7 sets, daily range): BP systolic 114–153; BP diastolic 88–91; PULSE 109–115; RESP 16–20; TEMP 36.5–36.9; O2SAT 91–95
[2024-12-05] MEDS: LACTATED RINGERS 1,000 ML 100 ML IV CONT ×2 (00:50→12:41)
[2024-12-05] MEDS: WATER FOR IRRIGATION, STERILE 1,000 ML BOTTLE 1000 ML (02:31)
[2024-12-05 02:43] LABS: Total Protein Urine Random 91 mg/dL; Ur Ttl Prot Creatinine Ratio 0.98 mg/mg (0-0.20)
--- NOTE | 2024-12-05 03:02 | PC.NURSE ---
pt vitals start of shift was 99.1 121 20 139/104 91 2 liters pt was c/o of feeling anxious and not feeling herself. MEMORIAL COUNSELOR Yolanda was notified and placed orders for prn tylenol, bolus LR, labs and renal ultrasound. all orders were completed as ordered. mc continues to have low urine output mc was irrigated and checked for placement. bladder scan showed 4ml
[2024-12-05] MEDS: LORazepam (*CRX) 0.5 MG TABLET PO ×2 (04:32→22:02)
[2024-12-05] MEDS: PIPERACILLIN/TAZOBACTAM SOD 2.25 GM in SODIUM CHLORIDE 0.9% IV 50 ML 100 ML IVPB ×4 (05:04→23:20)
[2024-12-05 07:53] LABS: Alanine Aminotransferase 45 U/L (6-35); Albumin Level 2.6 g/dL (3.5-5.1); Alkaline Phosphatase 180 U/L (38-126); Anion Gap 8 mmol/L (4-12); Aspartate Amino Transferase 79 U/L (14-36); Bilirubin,Total 0.8 mg/dL (0.2-1.3); Blood Urea Nitrogen 62 mg/dL (7-17); Calcium 8.7 mg/dL (8.4-10.2); Carbon Dioxide 23 mmol/L (22-30); Chloride 102 mmol/L (98-107); Estimated Glomerular Filt Rate 23; Glucose 123 mg/dL (65-110); Magnesium 2.8 mg/dL (1.6-2.3); Potassium 3.5 mmol/L (3.4-5.0); Sodium 133 mmol/L (137-145); Total Protein 5.4 g/dL (6.3-8.2)
--- NOTE | 2024-12-05 08:02 | P.PNIM_ITS ---
Progress Note: A&P Assessment and Plan (1) Acute kidney injury: Code(s): N17.9 - Acute kidney failure, unspecified Status: Acute Assessment and Plan: Creatinine 0.99 and BUN 29, GFR 56 upon admission on 12/03. Now 1.63, BUN 38, GFR 32. Initially presented with difficulty urinating, did undergo straight catheterization in the ED and now has Limon placed. Concerned this is etiology for patient's DARRYL. - IV fluids: 2L bolus, now on LR at 100 mL/hr. - check CK, urine sodium, protein/creatinine, urine creatinine - UA: 2+ protein, otherwise unremarkable on 12/03 - bladder scanned in ED on 12/03, showed 177 mL. Did require straight catheterization in the ED on 12/03. Limon placed on 12/03, urine remains dark/cloudy. - consider renal ultrasound in nephrology consultation if no improvement with IV fluids/Limon placement - monitor I&Os (2) Urinary retention: Code(s): R33.9 - Retention of urine, unspecified Status: Acute Assessment and Plan: - reporting post-operative constipation, last BM was 4+ days prior to admission on 12/03, may be contributing to her retention - CT additionally showed 7 x 3 cm fluid collection in the pelvis situated between the uterus and the bladder with some mass effect on the bladder. General Surgery aware of issue, however it is in a location that is difficult to access and not a well organized collection, could also be contributing to retention. - Limon placed on 12/03, started on Flomax - likely source of patient's DARRYL (3) History of partial colectomy: Code(s): Z90.49 - Acquired absence of other specified parts of digestive tract Status: Resolved Assessment and Plan: Underwent a hand assisted laparoscopic right colectomy, extensive adhesiolysis, mobilization of hepatic flexure by Dr. May on 11/27/24. Pathology showed adenocarcinoma and two tubular adenomas, with 4/13 lymph nodes positive. - presented 6 days postop with increased mid to right lower abdominal pain and urinary retention. - patient presents 6 days postop following AMBER right colectomy for right colon cancer. She has had increased mid to right lower abdominal pain over the past few days and also developed urinary retention. - exam findings and CT concerning for possible anastomotic leak - started on Zosyn on 12/03 - care managed by General Surgery team CT abdomen/pelvis, 12/03 (7:31): 1. Small amount scattered free intraperitoneal gas and fluid and a few small collections of gas and fluid in the pelvis without well-defined peripheral enhan cing wall to suggest organized abscess, likely related to recent right hemicolectomy and ileocolic anastomosis. 2. Persistent wall thickening along the sigmoid colon suggestive of scarring related to prior diverticulitis no significant surrounding inflammatory stranding to elevate suspicion for acute colitis/diverticulitis. 3. Persistent intra and extra hepatic biliary ductal dilation and dilation of the main pancreatic duct which may relate to prior cholecystectomy. Correlate with liver function tests and lipase levels and if clinically indicated could consider MRCP for further evaluation. CT repeated later on 12/03 (15:36): 1. Postoperative ileus with no dilated bowel or transition point and with the majority contrast remaining within the stomach and only a small amount of contrast having extended to the mid to distal jejunum 5 1/2 hours post oral contrast administration. No contrast in the region of the ileocolic anastomosis which precludes assessment for anastomotic leak. 2. No significant change in a nonspecific small amount of scattered free intraperineal gas and fluid in the abdomen and pelvis which could be directly secondary to the recent surgery. 3. Mild diverticulosis along the sigmoid colon where there is chronic wall thickening which could be due to scarring related to chronic diverticulitis versus less likely acute colitis or diverticulitis. (4) Hyperlipidemia: Qualifiers: Hyperlipidemia type: unspecified Qualified Code(s): E78.5 - Hyperlipidemia, unspecified Code(s): E78.5 - Hyperlipidemia, unspecified Status: Chronic Assessment and Plan: - hold home medications while NPO, now on clear liquids but currently monitoring toleration (5) Hypertension: Qualifiers: Hypertension type: primary hypertension Qualified Code(s): I10 - Essential (primary) hypertension Code(s): I10 - Essential (primary) hypertension Status: Chronic Assessment and Plan: - chronic, currently 112/63, stable. - hold home medications while NPO, now on clear liquids but currently monitoring toleration - monitor (6) Tachycardia: Code(s): R00.0 - Tachycardia, unspecified Status: Acute Assessment and Plan: Order V/Q Order D-Dimer EKG reviewed Hx Colon Ca Plan Diet: Clear liquid GI Prophylaxis: n/a DVT Prophylaxis: SCDs IV fluids: 2.5L bolus -> 100 mL/hr Lines/Tubes: peripheral IV Code Status: full code Subjective Date/time seen: 12/05/24 08:02 Interval history: Patient is short of breath and tachycardia . Patient has DARRYL. Order V/Q scan and D-Dimer to r/o PE Review of Systems Review of Systems: All systems reviewed & are unremarkable except as noted in HPI and below Exam Const: General: comfortable and no acute distress Other: , female, nontoxic appearance HENMT: Face/Nose/Sinus: Normal nares present Mouth: Yes moist mucous membranes Eyes: General: appearance normal, both eyes and all related structures Sclera: sclerae normal Pupils: Equal, round and reactive pupils present EOM: EOMs intact bilaterally Resp: Effort & Inspection: normal respiratory effort Auscultation: clear to auscultation bilaterally Cardio: Rate: regular rate Rhythm: regular rhythm Other: S1-S2 present without murmur, rub, ectopy GI: Other: Abdomen mildly distended but soft. No tenderness on exam. Postsurgical incision well approximated, sutures in place, no erythema or drainage. Hypoactive bowel sounds in all quadrants. Skin: General skin exam: normal color and no rashes or lesions noted Other: Postsurgical incision to abdomen is well approximated, sutures in place, no signs of infection Neuro: Cranial nerves: Yes Equal, round and reactive pupils present Speech: normal speech Motor exam (neuro): 5/5 motor strength present throughout Sensory Exam: normal sensation Other: A&O x4 Extrem: General: normal to inspection Psych: Mental Status: mental status grossly normal Affect: normal affect Other: Good insight and judgment, pleasant Objective Data Vital Signs Vital Signs: Vital Signs - 24 hr 12/04/24 14:00 12/04/24 21:00 12/04/24 21:13 Temperature 98.5 F 99.1 F Pulse Rate 113 H Respiratory Rate 18 Blood Pressure 115/71 Pulse Oximetry 94 94 Oxygen Delivery Nasal Cannula Oxygen Flow Rate 2 12/04/24 21:37 12/05/24 06:00 Temperature 99.1 F 97.7 F Pulse Rate 121 H 110 H Respiratory Rate 20 20 Blood Pressure 139/104 H 146/89 H Pulse Oximetry 91 95 Oxygen Delivery Oxygen Flow Rate Intake/Output Intake/Output: Intake & Output 12/02/24 12/03/24 12/04/24 12/05/24 23:59 23:59 23:59 23:59 Intake Total 2950 1880 883.3 Output Total 650 500 205 Balance 2300 1380 678.3 Meds/Results Medications: Active Medications Generic Name Dose Route Start Last Admin Trade Name Freq PRN Reason Stop Dose Admin Acetaminophen 650 mg 12/04/24 20:26 12/04/24 21:13 Acetaminophen 325 Mg Tablet PO 650 mg Q6H PRN Administration Mild Pain (1-3) or Fever Hydromorphone HCl 0.5 mg 12/03/24 12:07 12/04/24 05:10 Hydromorphone Hcl Inj (*Crx) 1 Mg/Ml Syr IV PUSH 0.5 mg Q2H PRN Administration Pain Rated 7-10 Lactated Ringer's 1,000 mls @ 100 mls/hr 12/03/24 10:00 12/05/24 00:50 Lr - Lactated Ringers Iv IV CONT 100 mls/hr .Q10H CEE Administration Piperacillin Sod/Tazobactam 50 mls @ 100 mls/hr 12/04/24 18:00 12/05/24 05:04 Sod 2.25 gm/ Sodium Chloride IVPB 100 mls/hr Q6H CEE Administration Lorazepam 0.5 mg 12/03/24 12:09 12/05/24 04:32 Lorazepam (*Crx) 0.5 Mg Tablet PO 0.5 mg Q6H PRN Administration Anxiety Ondansetron HCl 4 mg 12/03/24 17:26 12/03/24 17:44 Ondansetron Inj 4 Mg/2 Ml Vial IV PUSH 4 mg Q4H PRN Administration Nausea And Vomiting Tamsulosin HCl 0.4 mg 12/05/24 09:00 Tamsulosin Hcl 0.4 Mg Capsule PO [facility] Radiology Results: ITS Impressions Abdomen/Pelvis CT 12/03/24 15:36 IMPRESSION: 1. Postoperative ileus with no dilated bowel or transition point and with the majority contrast remaining within the stomach and only a small amount of contrast having extended to the mid to distal jejunum 5 1/2 hours post oral contrast administration. No contrast in the region of the ileocolic anastomosis which precludes assessment for anastomotic leak. 2. No significant change in a nonspecific small amount of scattered free intraperineal gas and fluid in the abdomen and pelvis which could be directly secondary to the recent surgery. 3. Mild diverticulosis along the sigmoid colon where there is chronic wall thickening which could be due to scarring related to chronic diverticulitis versus less likely acute colitis or diverticulitis. Renal Ultrasound 12/04/24 21:30 Impression: 1: Unremarkable renal ultrasound. No stones, masses or hydronephrosis. Labs Labs: Laboratory Results - last 24 hr 12/04/24 12/04/24 12/05/24 05:34 22:03 00:21 WBC 8.3 RBC 4.17 L Hgb 10.5 L Hct 35.1 L MCV 84.2 MCH 25.2 L MCHC 29.9 L RDW 20.7 H Plt Count 372 D MPV 10.6 H Immature Gran % (Auto) Not Reportable Neut % (Auto) Not Reportable Lymph % (Auto) Not Reportable Mcintosh % (Auto) Not Reportable Eos % (Auto) Not Reportable Baso % (Auto) Not Reportable Lymph # (Auto) Not Reportable Mcintosh # (Auto) Not Reportable Eos # (Auto) Not Reportable Baso # (Auto) Not Reportable Abs Immat Gran (auto) Not Reportable Absolute Neuts (auto) Not Reportable Absolute Nucleated RBC Not Reportable Total Counted 100 Neutrophils % (Manual) 76 H Band Neutrophils % 17 H Lymphocytes % (Manual) 4 L Monocytes % (Manual) 3 Nucleated RBC % Not Reportable Abs Neuts (Manual) 7.71 H Abs Lymphs (Manual) 0.33 L Abs Monocytes (Manual) 0.24 Dohle Bodies Present Platelet Estimate Adequate Large Platelets Present Hypochromasia 1+ Anisocytosis 1+ Angel Luis Cells 1+ Schistocytes None seen Sodium Potassium Chloride Carbon Dioxide Anion Gap BUN Creatinine Estim Creat Clear Calc Estimated GFR Glucose Lactic Acid 2.4 H 1.6 Calcium Magnesium Total Bilirubin AST ALT Alkaline Phosphatase Total Creatine Kinase < 20 L Total Protein Albumin Procalcitonin 13.7 U Random Total Protein Ur Random Sodium Urine Creatinine Protein/Creat Ratio 2 12/05/24 12/05/24 12/05/24 02:21 02:21 05:47 WBC RBC Hgb Hct MCV MCH MCHC RDW Plt Count MPV Immature Gran % (Auto) Neut % (Auto) Lymph % (Auto) Mcintosh % (Auto) Eos % (Auto) Baso % (Auto) Lymph # (Auto) Mcintosh # (Auto) Eos # (Auto) Baso # (Auto) Abs Immat Gran (auto) Absolute Neuts (auto) Absolute Nucleated RBC Total Counted Neutrophils % (Manual) Band Neutrophils % Lymphocytes % (Manual) Monocytes % (Manual) Nucleated RBC % Abs Neuts (Manual) Abs Lymphs (Manual) Abs Monocytes (Manual) Dohle Bodies Platelet Estimate Large Platelets Hypochromasia Anisocytosis Angel Luis Cells Schistocytes Sodium 133 L Potassium 3.5 Chloride 102 Carbon Dioxide 23 Anion Gap 8 BUN 62 H D Creatinine 2.12 H Estim Creat Clear Calc Not Reportable Estimated GFR 23 L Glucose 123 H Lactic Acid Calcium 8.7 Magnesium 2.8 H Total Bilirubin 0.8 AST 79 H ALT 45 H Alkaline Phosphatase 180 H Total Creatine Kinase Total Protein 5.4 L Albumin 2.6 L Procalcitonin U Random Total Protein 91 Ur Random Sodium 22 Urine Creatinine 92.9 89.6 Protein/Creat Ratio 2 0.98 H Quality VTE Prophylaxis VTE prophylaxis: mechanical ordered Hospitalist MIPS Advance Care Plan I have confirmed that the patient's Advanced Care Plan is present, code status is documented, or surrogate decision maker is listed in patient medical record.: Yes Medication Reconciliation I have utilized all available resources to obtain, update and review the patients current medications (includes all prescriptions, OTC, herbals, cannabis, and nutritional supplements).: Yes
[2024-12-05] MEDS: TAMSULOSIN HCL 0.4 MG CAPSULE PO (08:43)
[2024-12-05 08:59] LABS: Hematocrit 31.8 % (37.0-47.0); Hemoglobin 10.0 g/dL (12.0-15.0); Immature Platelet Fraction Pct 3.7 % (0.9-11.2); Mean Corpuscular HGB Conc 31.4 g/dl (32-36); Mean Corpuscular Hemoglobin 25.8 pg (26-34); Mean Corpuscular Volume 82.2 fl (80-100); Platelet Count Result 358 k/mm3 (150-375); Red Blood Count 3.87 M/mm3 (4.2-5.4); White Blood Count 13.8 K/mm3 (4.5-10.0)
--- NOTE | 2024-12-05 09:18 | PM.PNGS ---
Progress Note: A&P Assessment and Plan (1) Cancer of right colon: Onset Date: ~10/2024 Code(s): C18.2 - Malignant neoplasm of ascending colon Status: Acute Assessment and Plan: exam benign, encourage clears, OOB/IS, will start bowel regiemen (2) Acute kidney injury: Code(s): N17.9 - Acute kidney failure, unspecified Status: Acute Assessment and Plan: sl worse today, will get nephrology consult Subjective Subjective Date/Time Seen: 12/05/24 09:18 Interval history: feels ok, no abd pain but poor appetite, still no bowel fxn Review of Systems Review of Systems: All systems reviewed & are unremarkable except as noted in HPI and below Exam Const: General: cooperative, comfortable and no acute distress Resp: Auscultation: diminished lung sounds Cardio: Rate: tachycardic Rhythm: regular rhythm GI: Inspection: normal to inspection, distended and incision GI Palp: No abdominal tenderness and Yes Soft to palpation Objective Data Vital Signs Vital Signs: Vital Signs - 24 hr 12/04/24 14:00 12/04/24 21:00 12/04/24 21:13 Temperature 36.9 C 37.3 C Pulse Rate 113 H Respiratory Rate 18 Blood Pressure 115/71 Pulse Oximetry 94 94 Oxygen Delivery Nasal Cannula Oxygen Flow Rate 2 12/04/24 21:37 12/05/24 06:00 12/05/24 08:37 Temperature 37.3 C 36.5 C 36.6 C Pulse Rate 121 H 110 H 110 H Respiratory Rate 20 20 18 Blood Pressure 139/104 H 146/89 H 114/89 Pulse Oximetry 91 95 95 Oxygen Delivery Oxygen Flow Rate 12/05/24 08:38 Temperature Pulse Rate Respiratory Rate Blood Pressure Pulse Oximetry 95 Oxygen Delivery Nasal Cannula Oxygen Flow Rate 1 Intake/Output Intake/Output: Intake & Output 12/02/24 12/03/24 12/04/24 12/05/24 23:59 23:59 23:59 23:59 Intake Total 2950 1880 1053.3 Output Total 650 500 205 Balance 2300 1380 848.3 Meds/Results Medications: Active Medications Generic Name Dose Route Start Last Admin Trade Name Freq PRN Reason Stop Dose Admin Acetaminophen 650 mg 12/04/24 20:26 12/04/24 21:13 Acetaminophen 325 Mg Tablet PO 650 mg Q6H PRN Administration Mild Pain (1-3) or Fever Hydromorphone HCl 0.5 mg 12/03/24 12:07 12/04/24 05:10 Hydromorphone Hcl Inj (*Crx) 1 Mg/Ml Syr IV PUSH 0.5 mg Q2H PRN Administration Pain Rated 7-10 Lactated Ringer's 1,000 mls @ 100 mls/hr 12/03/24 10:00 12/05/24 00:50 Lr - Lactated Ringers Iv IV CONT 100 mls/hr .Q10H CEE Administration Piperacillin Sod/Tazobactam 50 mls @ 100 mls/hr 12/04/24 18:00 12/05/24 05:34 Sod 2.25 gm/ Sodium Chloride IVPB Infused Q6H CEE Infusion Lorazepam 0.5 mg 12/03/24 12:09 12/05/24 04:32 Lorazepam (*Crx) 0.5 Mg Tablet PO 0.5 mg Q6H PRN Administration Anxiety Ondansetron HCl 4 mg 12/03/24 17:26 12/03/24 17:44 Ondansetron Inj 4 Mg/2 Ml Vial IV PUSH 4 mg Q4H PRN Administration Nausea And Vomiting Tamsulosin HCl 0.4 mg 12/05/24 09:00 12/05/24 08:43 Tamsulosin Hcl 0.4 Mg Capsule PO 0.4 mg QAM CEE Administration Radiology Results: ITS Impressions Abdomen/Pelvis CT 12/03/24 15:36 IMPRESSION: 1. Postoperative ileus with no dilated bowel or transition point and with the majority contrast remaining within the stomach and only a small amount of contrast having extended to the mid to distal jejunum 5 1/2 hours post oral contrast administration. No contrast in the region of the ileocolic anastomosis which precludes assessment for anastomotic leak. 2. No significant change in a nonspecific small amount of scattered free intraperineal gas and fluid in the abdomen and pelvis which could be directly secondary to the recent surgery. 3. Mild diverticulosis along the sigmoid colon where there is chronic wall thickening which could be due to scarring related to chronic diverticulitis versus less likely acute colitis or diverticulitis. Renal Ultrasound 12/04/24 21:30 Impression: 1: Unremarkable renal ultrasound. No stones, masses or hydronephrosis. Labs Labs: Laboratory Results - last 24 hr 12/04/24 12/04/24 12/05/24 05:34 22:03 00:21 Sodium Potassium Chloride Carbon Dioxide Anion Gap BUN Creatinine Estim Creat Clear Calc Estimated GFR Glucose Lactic Acid 2.4 H 1.6 Calcium Magnesium Total Bilirubin AST ALT Alkaline Phosphatase Total Creatine Kinase < 20 L Total Protein Albumin Procalcitonin 13.7 U Random Total Protein Ur Random Sodium Urine Creatinine Protein/Creat Ratio 2 12/05/24 12/05/24 12/05/24 02:21 02:21 05:47 Sodium 133 L Potassium 3.5 Chloride 102 Carbon Dioxide 23 Anion Gap 8 BUN 62 H D Creatinine 2.12 H Estim Creat Clear Calc Not Reportable Estimated GFR 23 L Glucose 123 H Lactic Acid Calcium 8.7 Magnesium 2.8 H Total Bilirubin 0.8 AST 79 H ALT 45 H Alkaline Phosphatase 180 H Total Creatine Kinase Total Protein 5.4 L Albumin 2.6 L Procalcitonin U Random Total Protein 91 Ur Random Sodium 22 Urine Creatinine 92.9 89.6 Protein/Creat Ratio 2 0.98 H
[2024-12-05 10:15] LABS: Band Neutrophils Percent 11 % (0-6); Lymphocytes Absolute Manual 0.41 K/mm3 (1.1-4.5); Lymphocytes Percent Manual 3 % (18-44); Monocytes Absolute Manual 0.27 K/mm3 (0.1-0.90); Monocytes Percent Manual 2 % (3-9); Neutrophils Absolute Manual 13.11 K/mm3 (1.3-6.7); Neutrophils Percent Manual 84 % (46-73); Total Cells Counted 100
[2024-12-05 10:16] LABS: Anisocytosis 2+; Schistocytes None Seen
[2024-12-05 10:17] LABS: Burr Cells 2+; Hypochromasia 1+
[2024-12-05] MEDS: ACETAMINOPHEN 325 MG TABLET 650 MG PO (12:33)
--- NOTE | 2024-12-05 12:55 | P.CONNP_ITS ---
Assessment and Plan Assessment and plan (1) Acute kidney injury: Code(s): N17.9 - Acute kidney failure, unspecified Status: Acute Assessment and Plan: * as noted since 12/04 * admission creatinine 0.99mg/dl * normal baseline creatinine * suspect multifactorial etiology: * prerenal factors * contrast exposure (first CT on 12/04/23) * ARB use prior to admission * relative hypotension * element of urinary retention * infection (?) * other (?) * evaluation to date noted: * renal ultrasound without obstruction * urine electrolytes prerenal * urine eosinophil negative * UA with 2+ proteiin * CPK normal * agree with holding losartan * trial of IVFs ongoing * follow trend of repeat labs and UOP (2) History of partial colectomy: Code(s): Z90.49 - Acquired absence of other specified parts of digestive tract Status: Resolved Assessment and Plan: * s/p hand assisted laparoscopic right colectomy, extensive adhesiolysis, mobilization of hepatic flexure by Dr. May on 11/27/24 * Pathology showed adenocarcinoma and two tubular adenomas with 4/13 lymph nodes positive * CT imaging to date noted: * on 12/03 (at 07:31): small amount scattered free intraperitoneal gas and fluid and a few small collections of gas and fluid in the pelvis without well-defined peripheral enhancing wall to suggest organized abscess, likely related to recent right hemicolectomy and ileocolic anastomosis; persistent wall thickening along the sigmoid colon suggestive of scarring related to prior diverticulitis no significant surrounding inflammatory stranding to elevate suspicion for acute colitis/diverticulitis; persistent intra and extra hepatic biliary ductal dilation and dilation of the main pancreatic duct which may relate to prior cholecystectomy. Correlate with liver function tests and lipase levels and if clinically indicated could consider MRCP for further evaluation. * on 12/03 (15:36): postoperative ileus with no dilated bowel or transition point and with the majority contrast remaining within the stomach and only a small amount of contrast having extended to the mid to distal jejunum 5 1/2 hours post oral contrast administration. No contrast in the region of the ileocolic anastomosis which precludes assessment for anastomotic leak; no significant change in a nonspecific small amount of scattered free intraperineal gas and fluid in the abdomen and pelvis which could be directly secondary to the recent surgery; mild diverticulosis along the sigmoid colon where there is chronic wall thickening which could be due to scarring related to chronic diverticulitis versus less likely acute colitis or diverticulitis * Surgery following (3) Anemia: Code(s): D64.9 - Anemia, unspecified Status: Chronic Assessment and Plan: * relatively stable * suspect recent operative intervention partly responsible * known history of iron deficiency * follow trend of H/H (4) Hypertension: Qualifiers: Hypertension type: primary hypertension Qualified Code(s): I10 - Essential (primary) hypertension Code(s): I10 - Essential (primary) hypertension Status: Chronic Assessment and Plan: * well controlled * BP medications on hod * follow trend of hemodynamics (5) Urinary retention: Code(s): R33.9 - Retention of urine, unspecified Status: Acute Assessment and Plan: * difficulty urinating on admission * however, bladder scan in ER with 177cc of urine * possibly exacerbated by constipation... * CT imaging results noted * mc catheter placed * follow I/Os I will continue to follow the patient with you while she remains hospitalized and make further recommendations as deemed necessary. Thank you for allowing me to participate in the care of this patient. L History of Present Illness Reason for Consult Consult date: 12/05/24 Reason for consult: acute renal failure Chief Complaint Chief complaint: abdominal pain History of Present Illness Narrative: The patient is a 64-year-old female with a past medical history as outlined below who presented to [facility] Emergency Room approximately 48 hours ago with complaints of difficulty urinating. She recently underwent a hand assisted laparoscopic right colectomy for her known diagnosis of right colon cancer about a week prior to her presentation to the ER. This surgical intervention was apparently straightforward and she was discharged approximately 2 days later as she was tolerating oral intake and had been doing fairly well. However, since her discharge, she has had been having some worsening abdominal pain in association with on and off nausea and vomiting and constipation. the pain was localized to the suprapubic area and the right lower quadrant and was somewhat different from the pain that she had postoperatively. She believes that her last bowel movement was about 4 days prior to her presentation to the ER and has not had any further ones despite [id number] medications with regard to stool softeners and laxatives. On the day of admission, she woke up and had difficulty urinating despite multiple attempts to do so. Given these constellation of symptoms as mentioned, she presented to the emergency room for further assessment. Workup and evaluation emergency room demonstrated the patient be hemodynamically stable and afebrile although there was some concern that given the severity of her pain, she was likely relatively hypotensive. Routine blood work demonstrated white blood cell count of 4.8, hemoglobin 10.3 hematocrit 34.0, platelet count 247, sodium 137, potassium 3.1, chloride 102, bicarb 31, BUN 29 creatinine 0.99, with a glucose of 94, lactic acid 2.3, normal LFTs with the exception of a mildly elevated alkaline phosphatase of 242, albumin 2.9, and a urinalysis significant for 2+ protein but otherwise unremarkable. she underwent a straight catheterization given her issues with urination but despite this intervention, her abdominal pain persisted. A CT scan of the abdomen pelvis demonstrated small amount scattered free intraperitoneal gas and fluid and a few small collections of gas and fluid in the pelvis without well-defined peripheral enhancing wall to suggest organized abscess, likely related to recent right hemicolectomy and ileocolic anastomosis; persistent wall thickening along the sigmoid colon suggestive of scarring related to prior diverticulitis no significant surrounding inflammatory stranding to elevate suspicion for acute colitis/diverticulitis and persistent intra and extra hepatic biliary ductal dilation and dilation of the main pancreatic duct which may relate to prior cholecystectomy. Surgery was consulted with regard to her symptoms and CT scan findings and after appropriate cultures were obtained, she was started on IV fluids and IV antibiotics And subsequently admitted to the hospital for further evaluation therapy. Since her admission, a repeat CT scan of the abdomen and pelvis with oral contrast was done later in the day of admission which noted a postoperative ileus with no dilated bowel or transition point and with the majority contrast remaining within the stomach and only a small amount of contrast having extended to the mid to distal jejunum 5 1/2 hours post oral contrast administration with no contrast in the region of the ileocolic anastomosis which precludes assessment for anastomotic leak; no significant change in a nonspecific small amount of scattered free intraperineal gas and fluid in the abdomen and pelvis which could be directly secondary to the recent surgery and mild diverticulosis along the sigmoid colon where there is chronic wall thickening which could be due to scarring related to chronic diverticulitis versus less likely acute colitis or diverticulitis. Repeat labs done the day after admission showed evidence of acute kidney injury/acute renal failure with her creatinine up to 1.63 mg/dL but stability in her white blood cell count and hemoglobin. Labs done this morning showed worsening of her creatinine up to 2.12 mg/dL. Renal consultation was requested due to her acute kidney injury/acute renal failure. From review her records and prior hospitalizations, her renal function/creatinine is normal at baseline which is what it was on admission as well. In spite of her worsening creatinine, she has no critical electrolyte abnormalities and she still appears to making reasonable urine output. In spite of her previous history of difficulty urinating, she really did not have any significant suprapubic pain and her bladder scan prior to her straight catheterization in the emergency renal only demonstrated 177 cc of urine in her bladder. As far as she is aware, she has never had any issues [place] with her kidney function in the past. Currently, at the time my evaluation, she appears to be in no acute distress other than some ongoing abdominal discomfort. Review of Systems 2 Review of Systems: As per HPI. [facility] Past Medical History Medical History Iron deficiency anemia Recurrent Clostridioides difficile diarrhea (~06/2024) 04/06, 05/07, 07/05 Cancer of right colon (~10/2024) 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: CT of abdomen - no portal vein thrombosis 04/06: CT of the abdomen shows portal vein thrombosis in the right liver lobe, inferior mesenteric vein and sigmoid branch vein thrombosis Osteopenia Iron deficiency anemia Diverticulitis large intestine (~03/27/24) Melanoma s/p excision Heart murmur Vitamin B12 deficiency Lumbar spondylosis COVID (~08/2021) History of TIA (transient ischemic attack) (~04/2021) Rhabdomyolysis (~04/2021) Anxiety Chronic lumbar pain Hyperlipidemia Hypertension Surgical History Surgical History History of partial colectomy 11/27/24 -hand assisted laparoscopic right colectomy History of appendectomy History of tonsillectomy (~1964) History of melanoma excision Left shoulder History of cervical spinal surgery (~2014) History of back surgery (~2018) Hx of cholecystectomy (Unknown) Family History Family History Mother Family history of elevated blood lipids Family history of emphysema Hypertension Grandparent Acute myocardial infarction Family history of malignant neoplasm of urinary bladder Father Patient's father is Dementia Sibling COPD (chronic obstructive pulmonary disease) Other Anxiety Depression Family history of chronic obstructive pulmonary disease Skin cancer Social History Social History Smoking packs per day: 0.5 Smoking cigarettes per day: 10.0 Years smoked: 2 Smoking pack-years: 1.00 Smoking status: Never smoker Tobacco type: cigarettes Second hand tobacco smoke exposure: No Alcohol intake: never Substance use: never Substance use type: does not use Do You Feel Safe in your Home?: No Lack of Transportation: No Lack of Food: Never True Current Housing: I Have Housing Concerned About Future Housing: No Difficulty Paying Gas/Electric Bills: No Difficulty Paying for Meds: No Currently Unemployed: No Education: High School Diploma/GED Difficulty w/ Childcare or Family Care: No Living arrangements: alone Gender identity (if verbalized by the patient): Female Spiritual care concerns: No Meds Home Medications and Allergies Home Medications ?Medication ?Instructions ?Recorded ?Confirmed ?Type cholecalciferol (vitamin D3) 25 25 mcg PO DAILY 12/03/24 History mcg (1,000 unit) capsule Lactobacills gasseri-Bifidobac 1 cap PO DAILY 04/25/21 12/03/24 History bifidum,longum 1.5 billion cell capsule (SafeBoot) cyanocobalamin (vitamin B-12) 1,000 mcg sublingual .QO D 07/02/24 12/03/24 History 1,000 mcg sublingual tablet losartan 25 mg tablet 25 mg PO DAILY #100 tabs 12/03/24 Rx atorvastatin 20 mg tablet 20 mg PO QHS #90 tabs 12/03/24 Rx lorazepam 1 mg tablet 1 mg PO BID PRN Anxiety #90 tabs 11/12/24 12/03/24 Rx ondansetron 4 mg disintegrating 4 mg PO Q6-8H PRN naus ea and 11/26/24 12/03/24 Rx tablet vomiting #14 tabs docusate sodium 100 mg capsule 100 mg PO BID #30 caps 11/29/24 12/03/24 Rx (Colace) hydrocodone 5 mg-acetaminophen 325 1 tablet PO Q6H PRN pain #30 tabs 11/29/24 12/03/24 Rx mg tablet omega-3 fatty acids 500 mg capsule 500 mg PO DAILY 12/03/24 History (MaxEPA) Allergies Allergy/AdvReac Type Severity Reaction Status Date / Time Sulfa (Sulfonamide AdvReac Mild Hives Verified 12/06/24 12:37 Antibiotics) sulfamethizole AdvReac Mild Hives Verified 12/06/24 12:37 sulfamethoxazole AdvReac Mild HIVES Verified 12/06/24 12:37 trimethoprim AdvReac Mild Hives Verified 12/06/24 12:37 Vital Signs Vital Signs Temp Pulse Resp BP Pulse Ox O2 Del Method O2 Flow Rate 12/05/24 08:38 95 Nasal Cannula 1 12/05/24 08:37 97.9 F 110 H 18 114/89 95 12/05/24 06:00 97.7 F 110 H 20 146/89 H 95 12/04/24 21:37 99.1 F 121 H 20 139/104 H 91 12/04/24 21:13 99.1 F 12/04/24 21:00 94 Nasal Cannula 2 Exam 2 Narrative: GENERAL APPEARANCE: well developed well nourished Caucas[place] female in no acute distress HEENT: normocephalic, atraumatic, normal conjunctiva and sclera, nares patient NECK: no lymphadenopathy, thyromegaly, or JVD MOUTH: normal lips, teeth, and gums CARDIOVASCULAR: RRR, normal S1 and S2, no rub RESPIRATORY: clear to auscultation bilaterally ABDOMEN: soft, nontender, mild distension, incision c/d/i; hypoactive bowel sounds present EXTREMITIES: no evidence of cyanosis, clubbing, or edema NEUROLOGICAL: alert and oriented x 3; CN II - XII intact bilaterally; no focal deficits noted Results Lab Results 12/07/24 13:54 12/07/24 03:58 Lab results: Most recent lab results Calcium 8.7 mg/dL (8.4-10.2) 12/05/24 05:47 Magnesium 2.8 mg/dL (1.6-2.3) H 12/05/24 05:47 Urine Creatinine 89.6 mg/dL 12/05/24 02:21 Urine Creatinine 92.9 mg/dL 12/05/24 02:21
--- NOTE | 2024-12-05 14:08 | ECG_ITS ---
Test Date: 2024-12-05 14:38:06 Measurements Intervals [place] Rate: 112 P: 44 CT: 126 QRS: -4 QRSD: 94 T: 60 QT: 298 QTc: 407 Interpretive Statements SINUS TACHYCARDIA NONSPECIFIC ST & T-WAVE ABNORMALITY ABNORMAL RHYTHM ECG Electronically Signed On 12-05-2024 15:23:07 CDT by Riri Kenyon M.D.
--- NOTE | 2024-12-05 14:09 | PC.NURSE ---
RN called IV ultrasound and spoke with Harry to place a new IV. Patient is not following commands to keep arm straight therefore she is not receiving the fluids that are ordered.
[2024-12-05 14:49] LABS: Urine Eos QC 2nd Tech Confirmed
--- NOTE | 2024-12-05 16:46 | PC.NURSE ---
RN gave update to Katerin patients daughter via telephone.
--- NOTE | 2024-12-05 18:32 | PC.NURSE ---
patient off of unit to [place]
[2024-12-06] VITALS (18 sets, daily range): BP systolic 83–145; BP diastolic 47–89; PULSE 102–111; RESP 10–20; TEMP 36.1–37.4; O2SAT 92–100
[2024-12-06] MEDS: PIPERACILLIN/TAZOBACTAM SOD 2.25 GM in SODIUM CHLORIDE 0.9% IV 50 ML 100 ML IVPB ×4 (05:25→23:31)
[2024-12-06] MEDS: LACTATED RINGERS 1,000 ML 100 ML IV CONT ×2 (05:26→18:43)
[2024-12-06 07:12] LABS: Hematocrit 32.9 % (37.0-47.0); Hemoglobin 10.4 g/dL (12.0-15.0); Immature Granulocyte Percent A 1.0 % (0-0.5); Lymphocytes Absolute Auto 0.33 K/mm3 (0.9-3.2); Mean Corpuscular HGB Conc 31.6 g/dl (32-36); Mean Corpuscular Hemoglobin 25.2 pg (26-34); Mean Corpuscular Volume 79.7 fl (80-100); Nucleated Red Blood Cells Absolute Auto 0.030 K/mm3 (0.0-0.012); Nucleated Red Blood Cells Perc 0.2 % (0.0-0.2); Platelet Count Result 278 k/mm3 (150-375); Red Blood Count 4.13 M/mm3 (4.2-5.4); White Blood Count 16.2 K/mm3 (4.5-10.0)
[2024-12-06 07:38] LABS: Alanine Aminotransferase 50 U/L (6-35); Albumin Level 2.9 g/dL (3.5-5.1); Alkaline Phosphatase 226 U/L (38-126); Anion Gap 12 mmol/L (4-12); Aspartate Amino Transferase 87 U/L (14-36); Bilirubin,Total 0.8 mg/dL (0.2-1.3); Blood Urea Nitrogen 56 mg/dL (7-17); Burr Cells 1+; Calcium 9.0 mg/dL (8.4-10.2); Carbon Dioxide 23 mmol/L (22-30); Chloride 101 mmol/L (98-107); Estimated Glomerular Filt Rate 34; Glucose 129 mg/dL (65-110); Potassium 3.7 mmol/L (3.4-5.0); Sodium 136 mmol/L (137-145); Total Protein 6.1 g/dL (6.3-8.2)
[2024-12-06 07:39] LABS: Hypochromasia 1+; Ovalocytes Occasional
[2024-12-06 07:40] LABS: Schistocytes None Seen
--- NOTE | 2024-12-06 08:06 | P.PNGS_ITS ---
Progress Note: A&P Assessment and Plan (1) History of partial colectomy: Code(s): Z90.49 - Acquired absence of other specified parts of digestive tract Status: Resolved Assessment and Plan: WBC trending up, cont abx, will recheck CT today (2) Acute kidney injury: Code(s): N17.9 - Acute kidney failure, unspecified Status: Acute Assessment and Plan: improved, appreciate consultations Subjective Subjective Date/Time Seen: 12/06/24 08:06 Interval history: feels better, had good BM yesterday, sylvester clears Review of Systems Review of Systems: All systems reviewed & are unremarkable except as noted in HPI and below Exam Const: General: cooperative, comfortable and no acute distress Resp: Auscultation: diminished lung sounds Cardio: Rate: tachycardic Rhythm: regular rhythm GI: Inspection: normal to inspection, distended and incision GI Palp: No abdominal tenderness, Yes Soft to palpation, No Guarding due to palpation present (GI) and No Rigid due to palpation Objective Data Vital Signs Vital Signs: Vital Signs - 24 hr 12/05/24 08:37 12/05/24 08:38 12/05/24 14:00 Temperature 36.6 C 36.9 C Pulse Rate 110 H 109 H Respiratory Rate 18 20 Blood Pressure 114/89 153/91 H Pulse Oximetry 95 95 91 Oxygen Delivery Nasal Cannula Oxygen Flow Rate 1 12/05/24 20:42 12/05/24 21:58 12/05/24 22:00 Temperature 36.8 C Pulse Rate 115 H Respiratory Rate 16 Blood Pressure 137/88 Pulse Oximetry 94 91 91 Oxygen Delivery Nasal Cannula Nasal Cannula Oxygen Flow Rate 1 1 12/06/24 05:49 Temperature 36.4 C Pulse Rate 110 H Respiratory Rate 20 Blood Pressure 144/89 H Pulse Oximetry 93 Oxygen Delivery Oxygen Flow Rate Intake/Output Intake/Output: Intake & Output 12/03/24 12/04/24 12/05/24 12/06/24 23:59 23:59 23:59 23:59 Intake Total 2950 1880 3853.3 500 Output Total 650 500 805 Balance 2300 1380 3048.3 500 Meds/Results Medications: Active Medications Generic Name Dose Route Start Last Admin Trade Name Freq PRN Reason Stop Dose Admin Acetaminophen 650 mg 12/04/24 20:26 12/05/24 12:33 Acetaminophen 325 Mg Tablet PO 650 mg Q6H PRN Administration Mild Pain (1-3) or Fever Hydromorphone HCl 0.5 mg 12/03/24 12:07 12/04/24 05:10 Hydromorphone Hcl Inj (*Crx) 1 Mg/Ml Syr IV PUSH 0.5 mg Q2H PRN Administration Pain Rated 7-10 Lactated Ringer's 1,000 mls @ 100 mls/hr 12/03/24 10:00 12/06/24 05:26 Lr - Lactated Ringers Iv IV CONT 100 mls/hr .Q10H CEE Administration Piperacillin Sod/Tazobactam 50 mls @ 100 mls/hr 12/04/24 18:00 12/06/24 05:25 Sod 2.25 gm/ Sodium Chloride IVPB 100 mls/hr Q6H CEE Administration Lorazepam 0.5 mg 12/03/24 12:09 12/05/24 22:02 Lorazepam (*Crx) 0.5 Mg Tablet PO 0.5 mg Q6H PRN Administration Anxiety Ondansetron HCl 4 mg 12/03/24 17:26 12/03/24 17:44 Ondansetron Inj 4 Mg/2 Ml Vial IV PUSH 4 mg Q4H PRN Administration Nausea And Vomiting Polyethylene Glycol 17 gm 12/05/24 10:35 12/05/24 12:33 Polyethylene Glycol 3350 17 Gm Powd.Pack PO 17 gm QAM CEE Administration Tamsulosin HCl 0.4 mg 12/05/24 09:00 12/05/24 08:43 Tamsulosin Hcl 0.4 Mg Capsule PO 0.4 mg QAM CEE Administration Radiology Results: ITS Impressions Abdomen/Pelvis CT 12/03/24 15:36 IMPRESSION: 1. Postoperative ileus with no dilated bowel or transition point and with the majority contrast remaining within the stomach and only a small amount of contrast having extended to the mid to distal jejunum 5 1/2 hours post oral contrast administration. No contrast in the region of the ileocolic anastomosis which precludes assessment for anastomotic leak. 2. No significant change in a nonspecific small amount of scattered free intraperineal gas and fluid in the abdomen and pelvis which could be directly secondary to the recent surgery. 3. Mild diverticulosis along the sigmoid colon where there is chronic wall thickening which could be due to scarring related to chronic diverticulitis versus less likely acute colitis or diverticulitis. Renal Ultrasound 12/04/24 21:30 Impression: 1: Unremarkable renal ultrasound. No stones, masses or hydronephrosis. Pulmonary Perfusion Imaging 12/05/24 18:55 IMPRESSION: 1: Normal perfusion scan. Probable shallow lung volumes. Recommend correlation with chest x-ray.. Labs Labs: Laboratory Results - last 24 hr 12/05/24 12/05/24 12/05/24 08:19 14:24 17:34 WBC 13.8 H RBC 3.87 L Hgb 10.0 L Hct 31.8 L MCV 82.2 MCH 25.8 L MCHC 31.4 L RDW 20.8 H Plt Count 358 MPV 10.6 H Immature Gran % (Auto) Not Reportable Neut % (Auto) Not Reportable Lymph % (Auto) Not Reportable [place] % (Auto) Not Reportable Eos % (Auto) Not Reportable Baso % (Auto) Not Reportable Lymph # (Auto) Not Reportable [place] # (Auto) Not Reportable Eos # (Auto) Not Reportable Baso # (Auto) Not Reportable Abs Immat Gran (auto) Not Reportable Absolute Neuts (auto) Not Reportable Absolute Nucleated RBC Not Reportable Total Counted 100 Neutrophils % (Manual) 84 H Band Neutrophils % 11 H Lymphocytes % (Manual) 3 L Monocytes % (Manual) 2 L Nucleated RBC % Not Reportable Abs Neuts (Manual) 13.11 H Abs Lymphs (Manual) 0.41 L Abs Monocytes (Manual) 0.27 Platelet Estimate Adequate % Immature Plt Fraction 3.7 Hypochromasia 1+ Anisocytosis 2+ Ovalocytes [place] Cells 2+ Schistocytes None seen D-Dimer 4.86 H Sodium Potassium Chloride Carbon Dioxide Anion Gap BUN Creatinine Estim Creat Clear Calc Estimated GFR Glucose Calcium Total Bilirubin AST ALT Alkaline Phosphatase Total Protein Albumin Urine Eosinophils None seen 12/06/24 07:04 WBC 16.2 H RBC 4.13 L Hgb 10.4 L Hct 32.9 L MCV 79.7 L MCH 25.2 L MCHC 31.6 L RDW 20.7 H Plt Count 278 MPV 10.1 Immature Gran % (Auto) 1.0 H Neut % (Auto) 95.8 H Lymph % (Auto) 2.0 L [place] % (Auto) 1.1 L Eos % (Auto) 0.0 Baso % (Auto) 0.1 L Lymph # (Auto) 0.33 L [place] # (Auto) 0.2 Eos # (Auto) 0.0 Baso # (Auto) 0.0 Abs Immat Gran (auto) 0.16 H Absolute Neuts (auto) 15.5 H Absolute Nucleated RBC 0.030 H Total Counted Neutrophils % (Manual) Band Neutrophils % Not Reportable Lymphocytes % (Manual) Monocytes % (Manual) Nucleated RBC % 0.2 Abs Neuts (Manual) Abs Lymphs (Manual) Abs Monocytes (Manual) Platelet Estimate Adequate % Immature Plt Fraction Hypochromasia 1+ Anisocytosis Ovalocytes Occasional [place] Cells 1+ Schistocytes None seen D-Dimer Sodium 136 L Potassium 3.7 Chloride 101 Carbon Dioxide 23 Anion Gap 12 BUN 56 H Creatinine 1.53 H Estim Creat Clear Calc Not Reportable Estimated GFR 34 L Glucose 129 H Calcium 9.0 Total Bilirubin 0.8 AST 87 H ALT 50 H Alkaline Phosphatase 226 H Total Protein 6.1 L Albumin 2.9 L Urine Eosinophils
[2024-12-06] MEDS: TAMSULOSIN HCL 0.4 MG CAPSULE PO (09:22)
--- NOTE | 2024-12-06 09:41 | PM.IMPN ---
Progress Note: A&P Assessment and Plan (1) Acute kidney injury: Code(s): N17.9 - Acute kidney failure, unspecified Status: Acute Assessment and Plan: Creatinine 0.99 and BUN 29, GFR 56 upon admission on 12/03. Increased to 1.63, BUN 38, GFR 32. Initially presented with difficulty urinating, did undergo straight catheterization in the ED and now has Limon placed. Concerned this is etiology for patient's DARRYL. - IV fluids: 2L bolus, now on LR at 100 mL/hr. - check CK, urine sodium, protein/creatinine, urine creatinine - UA: 2+ protein, otherwise unremarkable on 12/03 - bladder scanned in ED on 12/03, showed 177 mL. Did require straight catheterization in the ED on 12/03. Limon placed on 12/03, urine remains dark/cloudy. -creatinine and continue to incline to 2 Nephrology consulted Creatine now downtrending - monitor I&Os (2) Urinary retention: Code(s): R33.9 - Retention of urine, unspecified Status: Acute Assessment and Plan: - reporting post-operative constipation, last BM was 4+ days prior to admission on 12/03, may be contributing to her retention - CT additionally showed 7 x 3 cm fluid collection in the pelvis situated between the uterus and the bladder with some mass effect on the bladder. General Surgery aware of issue, however it is in a location that is difficult to access and not a well organized collection, could also be contributing to retention. - Limon placed on 12/03, started on Flomax - likely source of patient's DARRYL (3) History of partial colectomy: Code(s): Z90.49 - Acquired absence of other specified parts of digestive tract Status: Resolved Assessment and Plan: Underwent a hand assisted laparoscopic right colectomy, extensive adhesiolysis, mobilization of hepatic flexure by Dr. May on 11/27/24. Pathology showed adenocarcinoma and two tubular adenomas, with 4/13 lymph nodes positive. - presented 6 days postop with increased mid to right lower abdominal pain and urinary retention. - patient presents 6 days postop following AMBER right colectomy for right colon cancer. She has had increased mid to right lower abdominal pain over the past few days and also developed urinary retention. - exam findings and CT concerning for possible anastomotic leak - started on Zosyn on 12/03 - care managed by General Surgery team CT abdomen/pelvis, 12/03 (7:31): 1. Small amount scattered free intraperitoneal gas and fluid and a few small collections of gas and fluid in the pelvis without well-defined peripheral enhancing wall to suggest organized abscess, likely related to recent right hemicolectomy and ileocolic anastomosis. 2. Persistent wall thickening along the sigmoid colon suggestive of scarring related to prior diverticulitis no significant surrounding inflammatory stranding to elevate suspicion for acute colitis/diverticulitis. 3. Persistent intra and extra hepatic biliary ductal dilation and dilation of the main pancreatic duct which may relate to prior cholecystectomy. Correlate with liver function tests and lipase levels and if clinically indicated could consider MRCP for further evaluation. CT repeated later on 12/03 (15:36): 1. Postoperative ileus with no dilated bowel or transition point and with the majority contrast remaining within the stomach and only a small amount of contrast having extended to the mid to distal jejunum 5 1/2 hours post oral contrast administration. No contrast in the region of the ileocolic anastomosis which precludes assessment for anastomotic leak. 2. No significant change in a nonspecific small amount of scattered free intraperineal gas and fluid in the abdomen and pelvis which could be directly secondary to the recent surgery. 3. Mild diverticulosis along the sigmoid colon where there is chronic wall thickening which could be due to scarring related to chronic diverticulitis versus less likely acute colitis or diverticulitis. Repeat CT 12/06/2024 with 7.2 x 1.8 x 7.9 cm collection of fluid, gas and oral contrast in the right paracolic gutter consistent with anastomotic leak. Small volume of ascites. Dilated small bowel consistent with adynamic ileus and small left pleural effusion. Further evaluation and treatment per General surgery (4) Hyperlipidemia: Qualifiers: Hyperlipidemia type: unspecified Qualified Code(s): E78.5 - Hyperlipidemia, unspecified Code(s): E78.5 - Hyperlipidemia, unspecified Status: Chronic Assessment and Plan: - hold home medications while NPO, now on clear liquids but currently monitoring toleration (5) Hypertension: Qualifiers: Hypertension type: primary hypertension Qualified Code(s): I10 - Essential (primary) hypertension Code(s): I10 - Essential (primary) hypertension Status: Chronic Assessment and Plan: - hold home medications while NPO, now on clear liquids but currently monitoring toleration - monitor (6) Tachycardia: Code(s): R00.0 - Tachycardia, unspecified Status: Acute Assessment and Plan: DKA scan negative Order D-Dimer EKG reviewed Hx Colon Ca CT finding with possible anastomotic leak with fluid collection Will keep her NPO until further evaluation by General surgery Plan Diet: Clear liquid GI Prophylaxis: n/a DVT Prophylaxis: SCDs IV fluids: 2.5L bolus -> 100 mL/hr Lines/Tubes: peripheral IV Code Status: full code Subjective Date/time seen: 12/06/24 09:41 Interval history: Patient reports no new complaints. Had a bowel movement yesterday. Tolerating diet. Denies any abdominal pain. Review of Systems Review of Systems: All systems reviewed & are unremarkable except as noted in HPI and below Exam Narrative: GENERAL: Alert and oriented x3, not in acute distress HEAD: Normal with no signs of head trauma. EYES: EOMI, conjunctiva normal ENT: Hearing grossly intact LUNGS: Nonlabored breathing. HEART: [Regular rate and rhythm] ABD: [Soft], mildly distended, mild tenderness, surgical incision clean dry and intact EXT: Normal range of motion SKIN: [No rashes or lesions.] NEURO: [Alert and oriented x 3. No gross focal sensory or strength deficits.] PSYCH: Normal affect Objective Data Vital Signs Vital Signs: Vital Signs - 24 hr 12/05/24 14:00 12/05/24 20:42 12/05/24 21:58 Temperature 98.5 F Pulse Rate 109 H Respiratory Rate 20 Blood Pressure 153/91 H Pulse Oximetry 91 94 91 Oxygen Delivery Nasal Cannula Nasal Cannula Oxygen Flow Rate 1 1 12/05/24 22:00 12/06/24 05:49 Temperature 98.2 F 97.6 F Pulse Rate 115 H 110 H Respiratory Rate 16 20 Blood Pressure 137/88 144/89 H Pulse Oximetry 91 93 Oxygen Delivery Oxygen Flow Rate Intake/Output Intake/Output: Intake & Output 12/03/24 12/04/24 12/05/24 12/06/24 23:59 23:59 23:59 23:59 Intake Total 2950 1880 3853.3 740 Output Total 650 500 805 725 Balance 2300 1380 3048.3 15 Meds/Results Medications: Active Medications Generic Name Dose Route Start Last Admin Trade Name Freq PRN Reason Stop Dose Admin Acetaminophen 650 mg 12/04/24 20:26 12/05/24 12:33 Acetaminophen 325 Mg Tablet PO 650 mg Q6H PRN Administration Mild Pain (1-3) or Fever Hydromorphone HCl 0.5 mg 12/03/24 12:07 12/04/24 05:10 Hydromorphone Hcl Inj (*Crx) 1 Mg/Ml Syr IV PUSH 0.5 mg Q2H PRN Administration Pain Rated 7-10 Lactated Ringer's 1,000 mls @ 100 mls/hr 12/03/24 10:00 12/06/24 05:26 Lr - Lactated Ringers Iv IV CONT 100 mls/hr .Q10H CEE Administration Piperacillin Sod/Tazobactam 50 mls @ 100 mls/hr 12/04/24 18:00 12/06/24 05:25 Sod 2.25 gm/ Sodium Chloride IVPB 100 mls/hr Q6H CEE Administration Lorazepam 0.5 mg 12/03/24 12:09 12/05/24 22:02 Lorazepam (*Crx) 0.5 Mg Tablet PO 0.5 mg Q6H PRN Administration Anxiety Ondansetron HCl 4 mg 12/03/24 17:26 12/03/24 17:44 Ondansetron Inj 4 Mg/2 Ml Vial IV PUSH 4 mg Q4H PRN Administration Nausea And Vomiting Polyethylene Glycol 17 gm 12/05/24 10:35 12/06/24 09:22 Polyethylene Glycol 3350 17 Gm Powd.Pack PO 17 gm QAM CEE Administration Tamsulosin HCl 0.4 mg 12/05/24 09:00 12/06/24 09:22 Tamsulosin Hcl 0.4 Mg Capsule PO 0.4 mg QAM CEE Administration Radiology Results: ITS Impressions Renal Ultrasound 12/04/24 21:30 Impression: 1: Unremarkable renal ultrasound. No stones, masses or hydronephrosis. Pulmonary Perfusion Imaging 12/05/24 18:55 IMPRESSION: 1: Normal perfusion scan. Probable shallow lung volumes. Recommend correlation with chest x-ray.. Abdomen/Pelvis CT 12/06/24 09:26 IMPRESSION: 1. 7.2 x 1.8 x 7.9 cm collection of fluid, gas, and oral contrast in right paracolic gutter, consistent with anastomotic leak.. 2. Small volume of ascites. 3. Dilated small bowel, consistent with adynamic ileus. 4. Small left pleural effusion. Labs Labs: Laboratory Results - last 24 hr 12/05/24 12/05/24 12/05/24 08:19 14:24 17:34 WBC 13.8 H RBC 3.87 L Hgb 10.0 L Hct 31.8 L MCV 82.2 MCH 25.8 L MCHC 31.4 L RDW 20.8 H Plt Count 358 MPV 10.6 H Immature Gran % (Auto) Not Reportable Neut % (Auto) Not Reportable Lymph % (Auto) Not Reportable [place] % (Auto) Not Reportable Eos % (Auto) Not Reportable Baso % (Auto) Not Reportable Lymph # (Auto) Not Reportable [place] # (Auto) Not Reportable Eos # (Auto) Not Reportable Baso # (Auto) Not Reportable Abs Immat Gran (auto) Not Reportable Absolute Neuts (auto) Not Reportable Absolute Nucleated RBC Not Reportable Total Counted 100 Neutrophils % (Manual) 84 H Band Neutrophils % 11 H Lymphocytes % (Manual) 3 L Monocytes % (Manual) 2 L Nucleated RBC % Not Reportable Abs Neuts (Manual) 13.11 H Abs Lymphs (Manual) 0.41 L Abs Monocytes (Manual) 0.27 Platelet Estimate Adequate % Immature Plt Fraction 3.7 Hypochromasia 1+ Anisocytosis 2+ Ovalocytes Angel Luis Cells 2+ Schistocytes None seen D-Dimer 4.86 H Sodium Potassium Chloride Carbon Dioxide Anion Gap BUN Creatinine Estim Creat Clear Calc Estimated GFR Glucose Calcium Total Bilirubin AST ALT Alkaline Phosphatase Total Protein Albumin Urine Eosinophils None seen 12/06/24 07:04 WBC 16.2 H RBC 4.13 L Hgb 10.4 L Hct 32.9 L MCV 79.7 L MCH 25.2 L MCHC 31.6 L RDW 20.7 H Plt Count 278 MPV 10.1 Immature Gran % (Auto) 1.0 H Neut % (Auto) 95.8 H Lymph % (Auto) 2.0 L [place] % (Auto) 1.1 L Eos % (Auto) 0.0 Baso % (Auto) 0.1 L Lymph # (Auto) 0.33 L [place] # (Auto) 0.2 Eos # (Auto) 0.0 Baso # (Auto) 0.0 Abs Immat Gran (auto) 0.16 H Absolute Neuts (auto) 15.5 H Absolute Nucleated RBC 0.030 H Total Counted Neutrophils % (Manual) Band Neutrophils % Not Reportable Lymphocytes % (Manual) Monocytes % (Manual) Nucleated RBC % 0.2 Abs Neuts (Manual) Abs Lymphs (Manual) Abs Monocytes (Manual) Platelet Estimate Adequate % Immature Plt Fraction Hypochromasia 1+ Anisocytosis Ovalocytes Occasional Angel Luis Cells 1+ Schistocytes None seen D-Dimer Sodium 136 L Potassium 3.7 Chloride 101 Carbon Dioxide 23 Anion Gap 12 BUN 56 H Creatinine 1.53 H Estim Creat Clear Calc Not Reportable Estimated GFR 34 L Glucose 129 H Calcium 9.0 Total Bilirubin 0.8 AST 87 H ALT 50 H Alkaline Phosphatase 226 H Total Protein 6.1 L Albumin 2.9 L Urine Eosinophils
--- NOTE | 2024-12-06 09:42 | P.PNNP_ITS ---
Progress Note: A&P Assessment and Plan (1) Acute kidney injury: Code(s): N17.9 - Acute kidney failure, unspecified Status: Acute Assessment and Plan: * improvement noted * as noted since 12/04 * admission creatinine 0.99mg/dl * normal baseline creatinine * suspect multifactorial etiology: * prerenal factors * contrast exposure (first CT on 12/04/23) * ARB use prior to admission * relative hypotension * element of urinary retention * infection (?) * other (?) * evaluation to date noted: * renal ultrasound without obstruction * urine electrolytes prerenal * urine eosinophil negative * UA with 2+ protein * CPK normal * agree with holding losartan * IVFs ongoing * follow trend of repeat labs and UOP (2) Ileocolic anastomotic leak: Code(s): K91.89 - Other postprocedural complications and disorders of digestive system Status: Acute Assessment and Plan: * CT imaging to date noted: * on 12/03 (at 07:31): small amount scattered free intraperitoneal gas and fluid and a few small collections of gas and fluid in the pelvis without well-defined peripheral enhancing wall to suggest organized abscess, likely related to recent right hemicolectomy and ileocolic anastomosis; persistent wall thickening along the sigmoid colon suggestive of scarring related to prior diverticulitis no significant surrounding inflammatory stranding to elevate suspicion for acute colitis/diverticulitis; persistent intra and extra hepatic biliary ductal dilation and dilation of the main pancreatic duct which may relate to prior cholecystectomy. Correlate with liver function tests and lipase levels and if clinically indicated could consider MRCP for further evaluation. * on 12/03 (15:36): postoperative ileus with no dilated bowel or transition point and with the majority contrast remaining within the stomach and only a small amount of contrast having extended to the mid to distal jejunum 5 1/2 hours post oral contrast administration. No contrast in the region of the ileocolic anastomosis which precludes assessment for anastomotic leak; no significant change in a nonspecific small amount of scattered free intraperineal gas and fluid in the abdomen and pelvis which could be directly secondary to the recent surgery; mild diverticulosis along the sigmoid colon where there is chronic wall thickening which could be due to scarring related to chronic diverticulitis versus less likely acute colitis or diverticulitis * on 12/06: 7.2 x 1.8 x 7.9 cm collection of fluid, gas, and oral contrast in right paracolic gutter, consistent with anastomotic leak; small volume of ascites; dilated small bowel, consistent with adynamic ileus; small left pleural effusion. * Surgery following (3) History of partial colectomy: Code(s): Z90.49 - Acquired absence of other specified parts of digestive tract Status: Resolved Assessment and Plan: * s/p hand assisted laparoscopic right colectomy, extensive adhesiolysis, mobilization of hepatic flexure by Dr. May on 11/27/24 * pathology showed adenocarcinoma and two tubular adenomas with 4/13 lymph nodes positive * complicated by #2 (4) Anemia: Code(s): D64.9 - Anemia, unspecified Status: Chronic Assessment and Plan: * relatively stable * suspect recent operative intervention partly responsible * known history of iron deficiency * follow trend of H/H (5) Hypertension: Qualifiers: Hypertension type: primary hypertension Qualified Code(s): I10 - Essential (primary) hypertension Code(s): I10 - Essential (primary) hypertension Status: Chronic Assessment and Plan: * well controlled * BP medications on hold * follow trend of hemodynamics (6) Urinary retention: Code(s): R33.9 - Retention of urine, unspecified Status: Acute Assessment and Plan: * difficulty urinating on admission * however, bladder scan in ER with 177cc of urine * possibly exacerbated by constipation... * CT imaging results noted * mc catheter placed * follow I/Os Will continue to follow. L Subjective Date/time seen: 12/06/24 09:42 Interval history: Follow-up for acute kidney injury/acute renal failure. Renal function/creatinine has improved and associated with improving urine output as well; results of repeat CT scan done earlier this morning noted; still with some fluctuating lower abdominal pain, more so in the right lower quadrant area, at the time of my visit. Exam 2 Narrative: General: elderly female in NAD Heart: normal S1 and S2; no rub Lungs: clear anteriorly Abdomen: soft, mild distension and +TTP in RLQ area; decreased bowel sounds Extremities: no cyanosis or clubbing; no edema Skin: warm and dry Objective Data Vital Signs Vital Signs: Vital Signs Temp Pulse Resp BP Pulse Ox O2 Del Method O2 Flow Rate 12/06/24 08:00 95 Nasal Cannula 1 12/06/24 05:49 97.6 F 110 H 20 144/89 H 93 12/05/24 22:00 98.2 F 115 H 16 137/88 91 12/05/24 21:58 91 Nasal Cannula 1 12/05/24 20:42 94 Nasal Cannula 1 Intake/Output Intake/Output: Intake & Output 12/03/24 12/04/24 12/05/24 12/06/24 23:59 23:59 23:59 23:59 Intake Total 2950 1880 3853.3 840 Output Total 650 500 805 725 Balance 2300 1380 3048.3 115 Meds/Results Medications: Active Medications Generic Name Dose Route Start Last Admin Trade Name Freq PRN Reason Stop Dose Admin Acetaminophen 650 mg 12/04/24 20:26 12/05/24 12:33 Acetaminophen 325 Mg Tablet PO 650 mg Q6H PRN Administration Mild Pain (1-3) or Fever Fentanyl Citrate 25 mcg 12/06/24 12:21 Fentanyl Citrate Inj (*Crx) 100 Mcg/2 Ml Vial IV PUSH Q2M PRN Pain Hydromorphone HCl 0.5 mg 12/03/24 12:07 12/04/24 05:10 Hydromorphone Hcl Inj (*Crx) 1 Mg/Ml Syr IV PUSH 0.5 mg Q2H PRN Administration Pain Rated 7-10 Lactated Ringer's 1,000 mls @ 100 mls/hr 12/03/24 10:00 12/06/24 05:26 Lr - Lactated Ringers Iv IV CONT 100 mls/hr .Q10H CEE Administration Piperacillin Sod/Tazobactam 50 mls @ 100 mls/hr 12/04/24 18:00 12/06/24 12:36 Sod 2.25 gm/ Sodium Chloride IVPB Infused Q6H CEE Infusion Lactated Ringer's 1,000 mls @ 30 mls/hr 12/06/24 12:25 12/06/24 12:20 Lr - Lactated Ringers Iv IV CONT 30 mls/hr .Q24H CEE Administration Lactated Ringer's 1,000 mls @ 30 mls/hr 12/06/24 12:25 Lr - Lactated Ringers Iv IV CONT .Q24H CEE Lorazepam 0.5 mg 12/03/24 12:09 12/05/24 22:02 Lorazepam (*Crx) 0.5 Mg Tablet PO 0.5 mg Q6H PRN Administration Anxiety Ondansetron HCl 4 mg 12/03/24 17:26 12/03/24 17:44 Ondansetron Inj 4 Mg/2 Ml Vial IV PUSH 4 mg Q4H PRN Administration Nausea And Vomiting Ondansetron HCl 4 mg 12/06/24 12:21 Ondansetron Inj 4 Mg/2 Ml Vial IV PUSH ONCE PRN Nausea Polyethylene Glycol 17 gm 12/05/24 10:35 12/06/24 09:22 Polyethylene Glycol 3350 17 Gm Powd.Pack PO 17 gm QAM CEE Administration Tamsulosin HCl 0.4 mg 12/05/24 09:00 12/06/24 09:22 Tamsulosin Hcl 0.4 Mg Capsule PO 0.4 mg QAM CEE Administration Radiology Results: ITS Impressions Renal Ultrasound 12/04/24 21:30 Impression: 1: Unremarkable renal ultrasound. No stones, masses or hydronephrosis. Pulmonary Perfusion Imaging 12/05/24 18:55 IMPRESSION: 1: Normal perfusion scan. Probable shallow lung volumes. Recommend correlation with chest x-ray.. Abdomen/Pelvis CT 12/06/24 09:26 IMPRESSION: 1. 7.2 x 1.8 x 7.9 cm collection of fluid, gas, and oral contrast in right paracolic gutter, consistent with anastomotic leak.. 2. Small volume of ascites. 3. Dilated small bowel, consistent with adynamic ileus. 4. Small left pleural effusion. Labs Labs: Laboratory Tests 12/06/24 07:04 12/06/24 07:04 Calcium 9.0 Total Bilirubin 0.8 AST 87 H ALT 50 H Alkaline Phosphatase 226 H Total Protein 6.1 L Albumin 2.9 L
--- NOTE | 2024-12-06 12:13 | P.PNGS_ITS ---
Progress Note: A&P Assessment and Plan (1) Ileocolic anastomotic leak: Code(s): K91.89 - Other postprocedural complications and disorders of digestive system Status: Acute Assessment and Plan: * I reviewed the CT and discussed the findings with the patient. She appears to have evidence of an anastomotic leak. I have recomended exploratory laparotomy, possible bowel resection, possible ostomy. I discussed the procedure, risks, benefits, and alternatives. Questions were answered. Hopefully will be able to isolate the location of leak, resect the anastomosis and perform a new ileocolic anastomosis, but discussed also possibly having to give an ostomy. Patient voiced her understanding. (2) Adenocarcinoma of colon: Code(s): C18.9 - Malignant neoplasm of colon, unspecified Status: Acute (3) History of partial colectomy: Code(s): Z90.49 - Acquired absence of other specified parts of digestive tract Status: Resolved Subjective Subjective Date/Time Seen: 12/06/24 12:13 Interval history: Follow up CT shows evidence of anastomotic leak. I discussed findings with patient. She is still having some lower abdominal pain and right sided pain. She remains tachycardic. Exam GI: Inspection: distended and incision (intact) GI Palp: Yes Soft to palpation, Yes Tenderness to palpation present (GI) (RLQ and periumbilical), No Guarding due to palpation present (GI) and No Rebound tenderness present Auscultation: Hypoactive bowel sounds present Objective Data Vital Signs Vital Signs: Vital Signs - 24 hr 12/05/24 14:00 12/05/24 20:42 12/05/24 21:58 Temperature 98.5 F Pulse Rate 109 H Respiratory Rate 20 Blood Pressure 153/91 H Pulse Oximetry 91 94 91 Oxygen Delivery Nasal Cannula Nasal Cannula Oxygen Flow Rate 1 1 12/05/24 22:00 12/06/24 05:49 12/06/24 08:00 Temperature 98.2 F 97.6 F Pulse Rate 115 H 110 H Respiratory Rate 16 20 Blood Pressure 137/88 144/89 H Pulse Oximetry 91 93 95 Oxygen Delivery Nasal Cannula Oxygen Flow Rate 1 12/06/24 11:45 Temperature Pulse Rate Respiratory Rate Blood Pressure Pulse Oximetry 92 Oxygen Delivery Nasal Cannula Oxygen Flow Rate 1 Intake/Output Intake/Output: Intake & Output 12/03/24 12/04/24 12/05/24 12/06/24 23:59 23:59 23:59 23:59 Intake Total 2950 1880 3853.3 790 Output Total 650 500 805 725 Balance 2300 1380 3048.3 65 Meds/Results Medications: Active Medications Generic Name Dose Route Start Last Admin Trade Name Freq PRN Reason Stop Dose Admin Acetaminophen 650 mg 12/04/24 20:26 12/05/24 12:33 Acetaminophen 325 Mg Tablet PO 650 mg Q6H PRN Administration Mild Pain (1-3) or Fever Hydromorphone HCl 0.5 mg 12/03/24 12:07 12/04/24 05:10 Hydromorphone Hcl Inj (*Crx) 1 Mg/Ml Syr IV PUSH 0.5 mg Q2H PRN Administration Pain Rated 7-10 Lactated Ringer's 1,000 mls @ 100 mls/hr 12/03/24 10:00 12/06/24 05:26 Lr - Lactated Ringers Iv IV CONT 100 mls/hr .Q10H CEE Administration Piperacillin Sod/Tazobactam 50 mls @ 100 mls/hr 12/04/24 18:00 12/06/24 11:55 Sod 2.25 gm/ Sodium Chloride IVPB 100 mls/hr Q6H CEE Administration Lorazepam 0.5 mg 12/03/24 12:09 12/05/24 22:02 Lorazepam (*Crx) 0.5 Mg Tablet PO 0.5 mg Q6H PRN Administration Anxiety Ondansetron HCl 4 mg 12/03/24 17:26 12/03/24 17:44 Ondansetron Inj 4 Mg/2 Ml Vial IV PUSH 4 mg Q4H PRN Administration Nausea And Vomiting Polyethylene Glycol 17 gm 12/05/24 10:35 12/06/24 09:22 Polyethylene Glycol 3350 17 Gm Powd.Pack PO 17 gm QAM CEE Administration Tamsulosin HCl 0.4 mg 12/05/24 09:00 12/06/24 09:22 Tamsulosin Hcl 0.4 Mg Capsule PO 0.4 mg QAM CEE Administration Radiology Results: ITS Impressions Renal Ultrasound 12/04/24 21:30 Impression: 1: Unremarkable renal ultrasound. No stones, masses or hydronephrosis. Pulmonary Perfusion Imaging 12/05/24 18:55 IMPRESSION: 1: Normal perfusion scan. Probable shallow lung volumes. Recommend correlation with chest x-ray.. Abdomen/Pelvis CT 12/06/24 09:26 IMPRESSION: 1. 7.2 x 1.8 x 7.9 cm collection of fluid, gas, and oral contrast in right paracolic gutter, consistent with anastomotic leak.. 2. Small volume of ascites. 3. Dilated small bowel, consistent with adynamic ileus. 4. Small left pleural effusion. Labs Labs: Laboratory Results - last 24 hr 12/05/24 12/05/24 12/06/24 14:24 17:34 07:04 WBC 16.2 H RBC 4.13 L Hgb 10.4 L Hct 32.9 L MCV 79.7 L MCH 25.2 L MCHC 31.6 L RDW 20.7 H Plt Count 278 MPV 10.1 Immature Gran % (Auto) 1.0 H Neut % (Auto) 95.8 H Lymph % (Auto) 2.0 L [place] % (Auto) 1.1 L Eos % (Auto) 0.0 Baso % (Auto) 0.1 L Lymph # (Auto) 0.33 L [place] # (Auto) 0.2 Eos # (Auto) 0.0 Baso # (Auto) 0.0 Abs Immat Gran (auto) 0.16 H Absolute Neuts (auto) 15.5 H Absolute Nucleated RBC 0.030 H Band Neutrophils % Not Reportable Nucleated RBC % 0.2 Platelet Estimate Adequate Hypochromasia 1+ Ovalocytes Occasional Angel Luis Cells 1+ Schistocytes None seen D-Dimer 4.86 H Sodium 136 L Potassium 3.7 Chloride 101 Carbon Dioxide 23 Anion Gap 12 BUN 56 H Creatinine 1.53 H Estim Creat Clear Calc Not Reportable Estimated GFR 34 L Glucose 129 H Calcium 9.0 Total Bilirubin 0.8 AST 87 H ALT 50 H Alkaline Phosphatase 226 H Total Protein 6.1 L Albumin 2.9 L Urine Eosinophils None seen
--- NOTE | 2024-12-06 12:19 | WPDHPUPDATE1 ---
History and Physical Update Update Date/Time: 12/06/24 12:19 History and Physical has been reviewed, including an updated exam of the patient. There are NO changes in the patient's condition. Risks, benefits, and alternatives have been discussed and questions answered. Patient agrees to proceed with procedure.
[2024-12-06] MEDS: LACTATED RINGERS 1,000 ML 30 ML IV CONT ×2 (12:20→15:24)
--- NOTE | 2024-12-06 12:20 | P.PNAN_ITS ---
Anes - Initial Pre Proc Eval Procedure: Operation Date: 12/06/24 18:30 Proposed Procedures p Exploratory Laparotomy, Possible Bowel Resection, Possible Ostomy - Parth Burch DO Date/Time: 12/06/24 12:20 Surgeon: Linn May MD Pre Op Diagnosis: abdominal pain Patient Data Age: 64 Gender: F Height: 1.5 m Weight: 63.2 kg Last Vital Signs Temp 36.4 C 12/06/24 05:49 Pulse 110 H 12/06/24 05:49 Resp 20 12/06/24 05:49 BP 144/89 H 12/06/24 05:49 Pulse Ox 92 12/06/24 11:45 O2 Del Method Nasal Cannula 12/06/24 11:45 O2 Flow Rate 1 12/06/24 11:45 Allergies Allergy/AdvReac Type Severity Reaction Status Date / Time Sulfa (Sulfonamide AdvReac Mild Hives Verified 11/27/24 10:52 Antibiotics) sulfamethizole AdvReac Mild Hives Verified 11/27/24 10:52 sulfamethoxazole AdvReac Mild HIVES Verified 11/27/24 10:52 trimethoprim AdvReac Mild Hives Verified 11/27/24 10:52 Home Medications ?Medication ?Instructions ?Recorded ?Confirmed ?Type cholecalciferol (vitamin D3) 25 25 mcg PO DAILY 12/03/24 History mcg (1,000 unit) capsule Lactobacills gasseri-Bifidobac 1 cap PO DAILY 04/25/21 12/03/24 History bifidum,longum 1.5 billion cell capsule ([employer]) cyanocobalamin (vitamin B-12) 1,000 mcg sublingual .QO D 07/02/24 12/03/24 History 1,000 mcg sublingual tablet losartan 25 mg tablet 25 mg PO DAILY #100 tabs 12/03/24 Rx atorvastatin 20 mg tablet 20 mg PO QHS #90 tabs 12/03/24 Rx lorazepam 1 mg tablet 1 mg PO BID PRN Anxiety #90 tabs 11/12/24 12/03/24 Rx ondansetron 4 mg disintegrating 4 mg PO Q6-8H PRN naus ea and 11/26/24 12/03/24 Rx tablet vomiting #14 tabs docusate sodium 100 mg capsule 100 mg PO BID #30 caps 11/29/24 12/03/24 Rx (Colace) hydrocodone 5 mg-acetaminophen 325 1 tablet PO Q6H PRN pain #30 tabs 11/29/24 12/03/24 Rx mg tablet omega-3 fatty acids 500 mg capsule 500 mg PO DAILY 12/03/24 History (MaxEPA) Laboratory Tests 12/05/24 12/05/24 12/06/24 14:24 17:34 07:04 WBC 16.2 H K/mm3 (4.5-10.0) RBC 4.13 L M/mm3 (4.2-5.4) Hgb 10.4 L g/dL (12.0-15.0) Hct 32.9 L % (37.0-47.0) MCV 79.7 L fl (80-100) MCH 25.2 L pg (26-34) MCHC 31.6 L g/dl (32-36) RDW 20.7 H % (11.5-14.5) Plt Count 278 k/mm3 (150-375) MPV 10.1 fl (7.4-10.4) Immature Gran % (Auto) 1.0 H % (0-0.5) Neut % (Auto) 95.8 H % (45.5-73.1) Lymph % (Auto) 2.0 L % (18.3-44.2) [place] % (Auto) 1.1 L % (2.6-8.5) Eos % (Auto) 0.0 % (0-4.4) Baso % (Auto) 0.1 L % (0.2-1.2) Lymph # (Auto) 0.33 L K/mm3 (0.9-3.2) [place] # (Auto) 0.2 K/mm3 (0.1-0.6) Eos # (Auto) 0.0 K/mm3 (0-0.3) Baso # (Auto) 0.0 K/mm3 (0.0-0.1) Abs Immat Gran (auto) 0.16 H K/mm3 (0.00-0.031) Absolute Neuts (auto) 15.5 H K/mm3 (1.3-6.7) Absolute Nucleated RBC 0.030 H K/mm3 (0.0-0.012) Band Neutrophils % Not Reportable Nucleated RBC % 0.2 % (0.0-0.2) Platelet Estimate Adequate (Adequate) Hypochromasia 1+ Ovalocytes Occasional Angel Luis Cells 1+ Schistocytes None seen D-Dimer 4.86 H ug/mL (<0.48) Sodium 136 L mmol/L (137-145) Potassium 3.7 mmol/L (3.4-5.0) Chloride 101 mmol/L (98-107) Carbon Dioxide 23 mmol/L (22-30) Anion Gap 12 mmol/L (4-12) BUN 56 H mg/dL (7-17) Creatinine 1.53 H mg/dL (0.7-1.0) Estim Creat Clear Calc Not Reportable Estimated GFR 34 L (59 - ) Glucose 129 H mg/dL (65-110) Calcium 9.0 mg/dL (8.4-10.2) Total Bilirubin 0.8 mg/dL (0.2-1.3) AST 87 H U/L (14-36) ALT 50 H U/L (6-35) Alkaline Phosphatase 226 H U/L (38-126) Total Protein 6.1 L g/dL (6.3-8.2) Albumin 2.9 L g/dL (3.5-5.1) Urine Eosinophils None seen % (None Seen) Patient hx anesthesia problems: none Family hx anesthesia problems: none Results Review: All pre-operative results and documents have been reviewed as part of the pre- operative evaluation. [facility] Past Medical History Medical History Iron deficiency anemia Recurrent Clostridioides difficile diarrhea (~06/2024) 04/06, 05/07, 07/05 Cancer of right colon (~10/2024) 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: CT of abdomen - no portal vein thrombosis 04/06: CT of the abdomen shows portal vein thrombosis in the right liver lobe, inferior mesenteric vein and sigmoid branch vein thrombosis Osteopenia Iron deficiency anemia Diverticulitis large intestine (~03/27/24) Melanoma s/p excision Heart murmur Vitamin B12 deficiency Lumbar spondylosis COVID (~08/2021) History of TIA (transient ischemic attack) (~04/2021) Rhabdomyolysis (~04/2021) Anxiety Chronic lumbar pain Hyperlipidemia Hypertension Surgical History Surgical History History of partial colectomy 11/27/24 -hand assisted laparoscopic right colectomy History of appendectomy History of tonsillectomy (~1965) History of melanoma excision Left shoulder History of cervical spinal surgery (~2014) History of back surgery (~2018) Hx of cholecystectomy (Unknown) Family History Family History Mother Family history of elevated blood lipids Family history of emphysema Hypertension Grandparent Acute myocardial infarction Family history of malignant neoplasm of urinary bladder Father Patient's father is Dementia Sibling COPD (chronic obstructive pulmonary disease) Other Anxiety Depression Family history of chronic obstructive pulmonary disease Skin cancer Social History Social History Smoking packs per day: 0.5 Smoking cigarettes per day: 10.0 Years smoked: 2 Smoking pack-years: 1.00 Smoking status: Never smoker Tobacco type: cigarettes Second hand tobacco smoke exposure: No Alcohol intake: never Substance use: never Substance use type: does not use Do You Feel Safe in your Home?: No Lack of Transportation: No Lack of Food: Never True Current Housing: I Have Housing Concerned About Future Housing: No Difficulty Paying Gas/Electric Bills: No Difficulty Paying for Meds: No Currently Unemployed: No Education: High School Diploma/GED Difficulty w/ Childcare or Family Care: No Living arrangements: alone Gender identity (if verbalized by the patient): Female Spiritual care concerns: No Anes - Eval Final PreProcedure Day of Procedure 12/06/24 12:20 Patient weight: overweight Heart: tachycardia Lungs: decreased breath sounds Airway: Mallampati scale class II Neurological: alert and oriented Last oral intake: >/= 8 hours ASA classification: III Emergent: yes Anesthetic plan: proceed Anesthesia type and monitoring: general ETT and standard monitoring Results Review: All pre-operative results and documents have been reviewed as part of the pre- operative evaluation. Informed Consent: The patient's anesthetic plan and its attendant risks and benefits were discussed with the patient/family/POA. Questions were solicited and answers provided to the satisfaction of the patient/family/POA.
--- NOTE | 2024-12-06 13:58 | S_PTH ---
PATIENT: Rosanna Johns LOC: [id number] #:[id number] AGE/SX: 64/F ROOM: 341 RE12/03/[address]: Candice Anderson APRN : 1960 BED: 01 DIS: 01/01/2025 SPEC #: [id number] RECD: 12/09/24 08:09 STATUS: YENIFER PARRA #: [id number] REBECCA: 12/06/24 13:[address]: Parth Burch DEPT: [facility] Surgical RECD BY: Katy Navas ENTERED: 12/09/24 08:09 SP TYPE: Surgical OTHR DR: MD Yolanda Green APRN Sriraj T. Kanungo, MD Srimannarayana Marella, MD Tissues: A - Colon Segment NonTumor Procedures: Hematoxylin and Eosin Stain Gross and Microscopic Level 5
--- NOTE | 2024-12-06 16:31 | W.PM.PROC2 ---
Procedure Note - Detailed Date of Procedure 12/06/24 Pre-op Diagnosis Anastomotic leak, intraabdominal abscess Post-op Diagnosis Same Procedure Performed 1. Exploratory laparotomy 2. Ileocolic resection with [id number] ileocolic anastomosis 3. Drainage of intra-abdominal abscess 4. Placement of wound VAC measuring 20 cm x 3 cm Surgeon Parth Burch, DO Anesthesia General Indications This is a 64-year-old woman who had a a repeat CT abdomen and pelvis done this morning which showed evidence of an anastomotic leak. She is status post hand assisted laparoscopic right hemicolectomy with anastomosis on 11/27/2024. She was discharged on postop day 2 and had been tolerating her diet. She presented back to the emergency department on 12/03/2024 complaining of inability to urinate and worsening abdominal pain. She was admitted and placed on IV antibiotics. She was tachycardic but her white blood count was normal. A CT was obtained with p.o. contrast however the contrast had not reached the anastomosis due to postoperative ileus therefore definitive findings for anastomotic leak could not be reached. She started having an elevated white blood count over the past 2 days and remained tachycardic. Repeat CT was performed today which is now showing evidence of anastomotic leak. Discussions were made with the patient about treatment options and decision was made to proceed with exploratory laparotomy with possible bowel resection and possible ostomy. Findings Exploratory laparotomy was performed. The patient had a few adhesions from her recent surgery which made visualization of the anastomosis slightly difficult at 1st. With careful dissection I was able to reflect the the omentum cephalad and find the right upper quadrant ileocolic anastomosis. There appeared to be purulence fluid around this area as well as down into the pelvis. There also appeared to be feculent output coming from a leak on the lateral anterior surface of the anastomosis. Further mobilization was carried out carefully to deliver the anastomosis out through the midline incision. An ileocolic resection was performed about 5 cm proximal and distal to the anastomosis. The abdomen was then thoroughly washed out with about 4 L of sterile saline. The proximal and distal bowel appeared healthy and viable aside from some reactive edema. Decision was made to perform a [id number] ileocolic anastomosis. A 19 round Josesito drain was placed along the right lateral abdomen in the area where the previous leak and abscess was. NG tube was placed intraoperatively by Anesthesia and placement was confirmed within the body of the stomach. The fascia was then closed, but the subcutaneous space was left open and a wound VAC was placed within this area. The open wound measured approximately 20 cm x 3 cm. Description of Procedure Procedure as well as risks, benefits, and alternatives were discussed with the patient. Written consent was obtained and placed in chart prior to procedure. Patient was brought back to surgical suite. She was placed supine on operating table. Time-out was done to confirm patient and procedure. She was then intubated by the anesthesia department. Her abdomen was prepped and draped in sterile fashion using chlorhexidine prep. The patient had a recent periumbilical midline incision from her hand assisted laparoscopic surgery. This was opened using a 10 blade scalpel and the incision was then extended cephalad about another 5 cm using the 10 blade scalpel. Electrocautery was used for hemostasis and for dissection through the subcutaneous tissue. The fascial suture was identified and cut out using suture scissors. I then entered into the peritoneal cavity through this previous incision and then extended the fascial incision cephalad throughout the length of the skin incision using electrocautery. A large Justino wound protector was then inserted and the abdomen was carefully inspected. Purulence fluid was initially identified in the right lower quadrant and pelvis. I then encountered feculent appearing output in the right lateral abdomen and near the right upper quadrant. A carefully sectioned all of the purulence and feculent fluid and identified where there appeared to be a leak on the prior anastomosis. There were still some attachments to the transverse colon near where the hepatic flexure had been and these were carefully taken down using LigaSure bipolar cautery. This then allowed me to deliver the anastomosis out through the incision and further inspected. The anastomotic leak was about 3-4 cm in size. The tissue appeared infected and would not have been strong enough to repair primarily. Decision was made to resect the prior anastomosis. The bowel about 5 cm proximal and distal to the anastomosis all appeared healthy and viable. A window was created in the mesentery of the ileum proximal to the anastomosis and a RUDDY 75 mm blue load stapler was then advanced across the ileum and clamped and fired. A window was made in the mesocolon of the transverse colon about 5 cm distal to the anastomosis and a RUDDY 75 mm blue load stapler was advanced across the transverse colon at this point and clamped and fired. The remaining mesocolon and mesentery attachments were then taken down using LigaSure bipolar cautery. The specimen was removed and sent to the lab for pathology. I now had control of any further leakage by resecting the anastomosis and therefore could begin cleaning out the abdomen further. The abdomen was then irrigated with several L of sterile saline. Once there did not appear to be any more signs of active infection or stool I then chose to remove the Justino wound protector and place a new large Justino wound protector. The patient was remaining hemodynamically stable and the 2 ends of the bowel appeared healthy and viable, therefore the decision was made to proceed with performing a new ileocolic anastomosis. Enterotomies were made on the anti mesenteric border of the ileum and transverse colon. A RUDDY 75 mm blue load stapler was advanced through each enterotomy and the 2 ends of the bowel were clamped together in a [id number] fashion. The stapler was then fired to create the anastomosis. The stapler was then removed and the anastomosis was inspected and appeared healthy and viable. The enterotomy was then closed using a Tx 60 mm stapler. The apex of the staple line was reinforced using 3-0 silk seromuscular imbricating suture. The anterior surface of the anastomosis was also reinforced using 3-0 silk seromuscular imbricating sutures. The omentum was also pexy Uvalda the anastomosis using 3-0 silk simple interrupted sutures. The anastomosis was palpated and inspected and appeared healthy and viable. It was then released back down into the abdominal cavity. I then irrigated the abdomen again with another L of sterile saline. No other significant bleeding was identified and no other ongoing infection or abscess was visualized. A 19 round Josesito drain was placed through an incision in the right lower quadrant and this was then directed along the right pericolic gutter into the right upper quadrant. The drain was secured in place using a 3-0 nylon drain stitch. One final inspection was made around the remainder of the abdomen and no other significant abnormalities were seen. The stomach was palpated and NG tube was confirmed within the body of the stomach. The Justino wound protector was removed. The fascia was then closed using 0 PDS running suture starting from each end and meeting in the middle. A black wound VAC sponge was then placed within the subcutaneous space and clear occlusive tape was placed over this followed by the suction tubing. The wound VAC was placed up to -125 mmHg and appeared to have adequate seal. Drain sponge was placed followed by tape. The patient was then awakened from anesthesia and transferred to PACU still intubated but with plans to extubate if meeting anesthesia requirements. Estimated Blood Loss 200 Urine Output 350 Pathology Yes (Ileocolic anastomosis) Complications No immediate complications Condition Critical Disposition Other (IMU) [facility] Billing Surgery - Charge Forward: Surgery Billing
--- NOTE | 2024-12-06 16:54 | SUR.PHASEI ---
SBP OCCAS. 85-89mmHg; AVG MAP 64. DR. QUINTANA AWARE AND NNO.
[2024-12-06 18:47] LABS: Hematocrit 28.9 % (37.0-47.0); Hemoglobin 9.3 g/dL (12.0-15.0); Immature Granulocyte Percent A 1.3 % (0-0.5); Lymphocytes Absolute Auto 0.54 K/mm3 (0.9-3.2); Mean Corpuscular HGB Conc 32.2 g/dl (32-36); Mean Corpuscular Hemoglobin 25.2 pg (26-34); Mean Corpuscular Volume 78.3 fl (80-100); Nucleated Red Blood Cells Absolute Auto 0.030 K/mm3 (0.0-0.012); Nucleated Red Blood Cells Perc 0.2 % (0.0-0.2); Platelet Count Result 211 k/mm3 (150-375); Red Blood Count 3.69 M/mm3 (4.2-5.4); White Blood Count 13.3 K/mm3 (4.5-10.0)
[2024-12-06] MEDS: HYDROmorphone HCL INJ (*CRX) 1 MG/ML SYR IV PUSH (18:55)
[2024-12-06 18:57] LABS: Alanine Aminotransferase 38 U/L (6-35); Albumin Level 2.0 g/dL (3.5-5.1); Alkaline Phosphatase 156 U/L (38-126); Anion Gap 4 mmol/L (4-12); Aspartate Amino Transferase 71 U/L (14-36); Bilirubin,Total 0.5 mg/dL (0.2-1.3); Blood Urea Nitrogen 55 mg/dL (7-17); Calcium 7.8 mg/dL (8.4-10.2); Carbon Dioxide 26 mmol/L (22-30); Chloride 104 mmol/L (98-107); Estimated Glomerular Filt Rate 36; Glucose 123 mg/dL (65-110); Magnesium 2.5 mg/dL (1.6-2.3); Potassium 3.8 mmol/L (3.4-5.0); Sodium 134 mmol/L (137-145); Total Protein 4.6 g/dL (6.3-8.2)
[2024-12-06 19:05] LABS: Partial Thromboplastin Time 26.3 Seconds (22.3-36.8); Transferrin 120 mg/dL (206-381)
[2024-12-06 19:10] LABS: Anisocytosis 1+; Burr Cells 1+; Ovalocytes 1+; Schistocytes None Seen
--- NOTE | 2024-12-06 20:36 | PC.NURSE ---
TEO Mcdonald notified of vitals, new orders received.
[2024-12-06] MEDS: ALBUMIN HUMAN 25% 25 GM/100 ML 200 ML IVPB (21:09)
[2024-12-07] VITALS (15 sets, daily range): BP systolic 116–143; BP diastolic 66–79; PULSE 98–113; RESP 16–24; TEMP 36.7–37.6; O2SAT 92–97
[2024-12-07 04:38] LABS: Hematocrit 25.4 % (37.0-47.0); Hemoglobin 7.8 g/dL (12.0-15.0); Immature Granulocyte Percent A 1.8 % (0-0.5); Lymphocytes Absolute Auto 0.65 K/mm3 (0.9-3.2); Mean Corpuscular HGB Conc 30.7 g/dl (32-36); Mean Corpuscular Hemoglobin 25.7 pg (26-34); Mean Corpuscular Volume 83.6 fl (80-100); Nucleated Red Blood Cells Absolute Auto 0.020 K/mm3 (0.0-0.012); Nucleated Red Blood Cells Perc 0.1 % (0.0-0.2); Platelet Count Result 188 k/mm3 (150-375); Red Blood Count 3.04 M/mm3 (4.2-5.4); White Blood Count 14.7 K/mm3 (4.5-10.0)
[2024-12-07 04:59] LABS: Anisocytosis 1+; Hypochromasia 1+; Smudge Cells PRESENT
[2024-12-07 05:00] LABS: Burr Cells 1+; Ovalocytes 1+; Schistocytes None Seen
[2024-12-07 05:03] LABS: Alanine Aminotransferase 31 U/L (6-35); Albumin Level 2.7 g/dL (3.5-5.1); Alkaline Phosphatase 102 U/L (38-126); Anion Gap 8 mmol/L (4-12); Aspartate Amino Transferase 68 U/L (14-36); Bilirubin,Total 0.7 mg/dL (0.2-1.3); Blood Urea Nitrogen 56 mg/dL (7-17); Calcium 7.6 mg/dL (8.4-10.2); Carbon Dioxide 24 mmol/L (22-30); Chloride 104 mmol/L (98-107); Estimated Glomerular Filt Rate 42; Glucose 120 mg/dL (65-110); Magnesium 2.7 mg/dL (1.6-2.3); Potassium 3.7 mmol/L (3.4-5.0); Sodium 136 mmol/L (137-145); Total Protein 4.8 g/dL (6.3-8.2)
[2024-12-07] MEDS: LACTATED RINGERS 1,000 ML 100 ML IV CONT (06:02)
[2024-12-07] MEDS: PIPERACILLIN/TAZOBACTAM SOD 2.25 GM in SODIUM CHLORIDE 0.9% IV 50 ML 100 ML IVPB ×4 (06:02→23:27)
[2024-12-07] MEDS: HYDROmorphone HCL INJ (*CRX) 1 MG/ML SYR 0.5 MG IV PUSH ×3 (06:05→18:13)
[2024-12-07] MEDS: PANTOPRAZOLE SODIUM IV 40 MG VIAL IV PUSH (10:00)
--- NOTE | 2024-12-07 10:06 | PM.PNGS ---
Progress Note: A&P Assessment and Plan (1) Ileocolic anastomotic leak: Code(s): K91.89 - Other postprocedural complications and disorders of digestive system Status: Acute Assessment and Plan: Continue Zosyn, bowel rest, NG decompression Await return of bowel function PT/OT ordered TPN to start today Recheck H/H this afternoon Will plan to change wound vac on Monday, possibly eventually plan for delayed primary closure next week. (2) Intra-abdominal abscess post-procedure: Code(s): T81.43XA - Infection following a procedure, organ and space surgical site, initial encounter; K65.1 - Peritoneal abscess Status: Acute (3) Acute blood loss anemia: Code(s): D62 - Acute posthemorrhagic anemia Status: Acute Assessment and Plan: Lovenox on hold today (4) Adenocarcinoma of colon: Code(s): C18.9 - Malignant neoplasm of colon, unspecified Status: Acute Subjective Subjective Date/Time Seen: 12/07/24 10:06 Interval history: Hemodynamically stable on postop day 1. Having abdominal pain. No bowel function yet. Not getting up out of bed much yet. Exam GI: Inspection: other (JUHI serosanguinous, Wound vac in place with no drainage) GI Palp: Yes Soft to palpation and Yes Tenderness to palpation present (GI) (incisional) Auscultation: Hypoactive bowel sounds present Objective Data Vital Signs Vital Signs: Vital Signs - 24 hr 12/06/24 11:45 12/06/24 12:21 12/06/24 15:24 Temperature 97.9 F 97.0 F L Pulse Rate 110 H 106 H Respiratory Rate 20 17 Blood Pressure 145/82 H 102/52 L Pulse Oximetry 92 95 Oxygen Delivery Nasal Cannula Nasal Cannula Mechanical Ventilation Oxygen Flow Rate 1 2 Fraction of Inspired Oxygen 12/06/24 15:30 12/06/24 15:35 12/06/24 15:50 Temperature 98.9 F Pulse Rate 106 H 106 H 107 H Respiratory Rate 15 12 Blood Pressure 122/68 111/59 L Pulse Oximetry 100 100 Oxygen Delivery Mechanical Ventilation Mechanical Ventilation Mechanical Ventilation Oxygen Flow Rate Fraction of Inspired Oxygen 100 12/06/24 16:05 12/06/24 16:06 12/06/24 16:21 Temperature Pulse Rate 106 H 104 H Respiratory Rate 10 L 16 Blood Pressure 100/61 95/57 L Pulse Oximetry 96 95 95 Oxygen Delivery Mechanical Ventilation Simple Face Mask Simple Face Mask Oxygen Flow Rate 8 8 Fraction of Inspired Oxygen 12/06/24 16:35 12/06/24 16:50 12/06/24 17:37 Temperature 98.7 F 98.3 F Pulse Rate 103 H 104 H 109 H Respiratory Rate 16 15 20 Blood Pressure 90/54 L 88/54 L 83/47 L Pulse Oximetry 95 95 97 Oxygen Delivery Nasal Cannula Nasal Cannula Oxygen Flow Rate 4 4 Fraction of Inspired Oxygen 12/06/24 18:00 12/06/24 18:00 12/06/24 19:00 Temperature Pulse Rate 102 H 102 H 108 H Respiratory Rate 17 16 15 Blood Pressure 88/56 L 98/58 L Pulse Oximetry 93 96 96 Oxygen Delivery Nasal Cannula Oxygen Flow Rate 4 Fraction of Inspired Oxygen 96 12/06/24 20:00 12/06/24 20:00 12/06/24 20:00 Temperature 99.3 F Pulse Rate 111 H 108 H 111 H Respiratory Rate 15 18 Blood Pressure 86/52 L Pulse Oximetry 96 97 Oxygen Delivery Nasal Cannula Oxygen Flow Rate 2 Fraction of Inspired Oxygen 96 12/06/24 22:00 12/06/24 22:00 12/07/24 00:00 Temperature Pulse Rate 105 H 106 H 100 Respiratory Rate Blood Pressure 111/66 Pulse Oximetry Oxygen Delivery Oxygen Flow Rate Fraction of Inspired Oxygen 12/07/24 00:00 12/07/24 00:00 12/07/24 02:00 Temperature 99.0 F Pulse Rate 100 102 H 98 Respiratory Rate 16 Blood Pressure 116/66 Pulse Oximetry 94 95 Oxygen Delivery Nasal Cannula Oxygen Flow Rate 2 Fraction of Inspired Oxygen 96 12/07/24 04:00 12/07/24 04:00 12/07/24 04:00 Temperature 98.2 F 98.2 F Pulse Rate 107 H 107 H 108 H Respiratory Rate 18 18 Blood Pressure 135/72 135/72 Pulse Oximetry 97 97 Oxygen Delivery Oxygen Flow Rate Fraction of Inspired Oxygen 12/07/24 04:00 12/07/24 06:00 12/07/24 08:00 Temperature 98.3 F Pulse Rate 100 101 H 104 H Respiratory Rate 18 Blood Pressure 130/70 Pulse Oximetry 94 96 Oxygen Delivery Nasal Cannula Oxygen Flow Rate 2 Fraction of Inspired Oxygen 96 Intake/Output Intake/Output: Intake & Output 12/04/24 12/05/24 12/06/24 09/27/25 23:59 23:59 23:59 23:59 Intake Total 1880 3853.3 1120 1100 Output Total 807 915 9779 755 Balance 1380 3048.3 -645 345 Meds/Results Medications: Active Medications Generic Name Dose Route Start Last Admin Trade Name Freq PRN Reason Stop Dose Admin Enoxaparin Sodium 40 mg 12/07/24 09:00 12/07/24 10:01 Enoxaparin 40 Mg/0.4 Ml Syringe SUB-Q Not Given On Hold: 12/07/24 10:02 DAILY CEE Hydromorphone HCl 1 mg 12/06/24 17:15 12/06/24 18:55 Hydromorphone Hcl Inj (*Crx) 1 Mg/Ml Syr IV PUSH 1 mg Q2H PRN Administration Breakthrough Pain Rated 7-10 or NPO Hydromorphone HCl 0.5 mg 12/06/24 17:15 12/07/24 06:05 Hydromorphone Hcl Inj (*Crx) 1 Mg/Ml Syr IV PUSH 0.5 mg Q2H PRN Administration Breakthrough Pain Rated 4-6 or NPO Piperacillin Sod/Tazobactam 50 mls @ 100 mls/hr 12/04/24 18:00 12/07/24 06:32 Sod 2.25 gm/ Sodium Chloride IVPB Infused Q6H CEE Infusion Lactated Ringer's 1,000 mls @ 100 mls/hr 12/06/24 17:15 12/07/24 06:02 Lr - Lactated Ringers Iv IV CONT 100 mls/hr .Q10H CEE Administration Dextrose 1,000 mls @ 50 mls/hr 12/06/24 17:15 Dextrose 10% IV CONT .Q20H PRN if PN is interrupted Multivitamins 1.25 ml/ 1,002.5 mls @ 40 mls/hr 12/06/24 18:00 12/06/24 21:10 Multivitamins 1.25 ml/ Amino IV CONT Not Given Acids/Electrolytes/Dextrose .Q24H [facility] Protocol Fat Emulsion Intravenous 250 mls @ 20.833 mls/hr 12/06/24 18:00 12/06/24 21:09 Lipids 20% IVPB Not Given Q24H [facility] Miscellaneous Information 1 each 12/07/24 09:59 Pharmacist Communication Order XX 12/07/24 10:00 ONCE ONE Naloxone HCl 0.1 mg 12/06/24 17:15 Naloxone Hcl 0.4 Mg/Ml Vial IV PUSH Q2M PRN Opiate Reversal Ondansetron HCl 4 mg 12/03/24 17:26 12/03/24 17:44 Ondansetron Inj 4 Mg/2 Ml Vial IV PUSH 4 mg Q4H PRN Administration Nausea And Vomiting Pantoprazole Sodium 40 mg 12/07/24 09:00 12/07/24 10:00 Pantoprazole Sodium Iv 40 Mg Vial IV PUSH 40 mg QAM CEE Administration Phenol 1 spray 12/07/24 10:05 Phenol/Sod Pheno [place]idon Salomon (*Bkc) MUCOUS MEM PRN PRN Sore Throat Sodium Chloride 10 ml 12/07/24 14:00 Central Line Flush IV PUSH Q8HR CEE Sodium Chloride 10 ml 12/07/24 09:45 Central Line Flush IV PUSH PRN PRN with TPN bag changes Sodium Chloride 20 ml 12/07/24 09:45 Central Line Flush IV PUSH PRN PRN after blood draws Radiology Results: ITS Impressions Renal Ultrasound 12/04/24 21:30 Impression: 1: Unremarkable renal ultrasound. No stones, masses or hydronephrosis. Pulmonary Perfusion Imaging 12/05/24 18:55 IMPRESSION: 1: Normal perfusion scan. Probable shallow lung volumes. Recommend correlation with chest x-ray.. Abdomen/Pelvis CT 12/06/24 09:26 IMPRESSION: 1. 7.2 x 1.8 x 7.9 cm collection of fluid, gas, and oral contrast in right paracolic gutter, consistent with anastomotic leak.. 2. Small volume of ascites. 3. Dilated small bowel, consistent with adynamic ileus. 4. Small left pleural effusion. Labs Labs: Laboratory Results - last 24 hr 12/06/24 12/06/24 12/07/24 17:43 18:38 00:20 WBC 13.3 H RBC 3.69 L Hgb 9.3 L Hct 28.9 L MCV 78.3 L MCH 25.2 L MCHC 32.2 RDW 20.2 H Plt Count 211 MPV 10.6 H Immature Gran % (Auto) 1.3 H Neut % (Auto) 93.0 H Lymph % (Auto) 4.1 L [place] % (Auto) 1.3 L Eos % (Auto) 0.1 Baso % (Auto) 0.2 Lymph # (Auto) 0.54 L [place] # (Auto) 0.2 Eos # (Auto) 0.0 Baso # (Auto) 0.0 Abs Immat Gran (auto) 0.17 H Absolute Neuts (auto) 12.4 H Absolute Nucleated RBC 0.030 H Band Neutrophils % Not Reportable Nucleated RBC % 0.2 Smudge Cells Platelet Estimate Adequate Hypochromasia Anisocytosis 1+ Ovalocytes 1+ Angel Luis Cells 1+ Schistocytes None seen APTT 26.3 Sodium 134 L Potassium 3.8 Chloride 104 Carbon Dioxide 26 Anion Gap 4 BUN 55 H Creatinine 1.45 H Estim Creat Clear Calc Not Reportable Estimated GFR 36 L Glucose 123 H POC Capillary Glucose 119 H 121 H Calcium 7.8 L Phosphorus Magnesium 2.5 H Transferrin 120 L Total Bilirubin 0.5 AST 71 H ALT 38 H Alkaline Phosphatase 156 H Total Protein 4.6 L Albumin 2.0 L 12/07/24 03:58 WBC 14.7 H RBC 3.04 L Hgb 7.8 L Hct 25.4 L MCV 83.6 D MCH 25.7 L MCHC 30.7 L RDW 20.6 H Plt Count 188 MPV 11.5 H Immature Gran % (Auto) 1.8 H Neut % (Auto) 92.3 H Lymph % (Auto) 4.4 L [place] % (Auto) 1.1 L Eos % (Auto) 0.0 Baso % (Auto) 0.4 Lymph # (Auto) 0.65 L [place] # (Auto) 0.2 Eos # (Auto) 0.0 Baso # (Auto) 0.1 Abs Immat Gran (auto) 0.27 H Absolute Neuts (auto) 13.6 H Absolute Nucleated RBC 0.020 H Band Neutrophils % Not Reportable Nucleated RBC % 0.1 Smudge Cells Present Platelet Estimate Adequate Hypochromasia 1+ Anisocytosis 1+ Ovalocytes 1+ Angel Luis Cells 1+ Schistocytes None seen APTT Sodium 136 L Potassium 3.7 Chloride 104 Carbon Dioxide 24 Anion Gap 8 BUN 56 H Creatinine 1.28 H Estim Creat Clear Calc Not Reportable Estimated GFR 42 L Glucose 120 H POC Capillary Glucose Calcium 7.6 L Phosphorus 4.0 Magnesium 2.7 H Transferrin Total Bilirubin 0.7 AST 68 H ALT 31 Alkaline Phosphatase 102 Total Protein 4.8 L Albumin 2.7 L
[2024-12-07] MEDS: AMINO ACIDS 5%/D15W/E-LYTES/CA 1,000 ML with MULTIVITAMINS-12 INJ VIAL 1 1.25 ML, MULTI... 40 ML IV CONT (10:10)
--- NOTE | 2024-12-07 11:08 | P.PNNP_ITS ---
Progress Note: A&P Assessment and Plan (1) Acute kidney injury: Code(s): N17.9 - Acute kidney failure, unspecified Status: Acute Assessment and Plan: * improvement noted * as noted since 12/04 * admission creatinine 0.99mg/dl * normal baseline creatinine * suspect multifactorial etiology: * prerenal factors * contrast exposure (first CT on 12/04/23) * ARB use prior to admission * relative hypotension * element of urinary retention * infection (?) * other (?) * evaluation to date noted: * renal ultrasound without obstruction * urine electrolytes prerenal * urine eosinophil negative * UA with 2+ protein * CPK normal * agree with holding losartan * IVFs ongoing * follow trend of repeat labs and UOP (2) Ileocolic anastomotic leak: Code(s): K91.89 - Other postprocedural complications and disorders of digestive system Status: Acute Assessment and Plan: * CT imaging to date noted: * on 12/03 (at 07:31): small amount scattered free intraperitoneal gas and fluid and a few small collections of gas and fluid in the pelvis without well-defined peripheral enhancing wall to suggest organized abscess, likely related to recent right hemicolectomy and ileocolic anastomosis; persistent wall thickening along the sigmoid colon suggestive of scarring related to prior diverticulitis no significant surrounding inflammatory stranding to elevate suspicion for acute colitis/diverticulitis; persistent intra and extra hepatic biliary ductal dilation and dilation of the main pancreatic duct which may relate to prior cholecystectomy. Correlate with liver function tests and lipase levels and if clinically indicated could consider MRCP for further evaluation. * on 12/03 (15:36): postoperative ileus with no dilated bowel or transition point and with the majority contrast remaining within the stomach and only a small amount of contrast having extended to the mid to distal jejunum 5 1/2 hours post oral contrast administration. No contrast in the region of the ileocolic anastomosis which precludes assessment for anastomotic leak; no significant change in a nonspecific small amount of scattered free intraperineal gas and fluid in the abdomen and pelvis which could be directly secondary to the recent surgery; mild diverticulosis along the sigmoid colon where there is chronic wall thickening which could be due to scarring related to chronic diverticulitis versus less likely acute colitis or diverticulitis * on 12/06: 7.2 x 1.8 x 7.9 cm collection of fluid, gas, and oral contrast in right paracolic gutter, consistent with anastomotic leak; small volume of ascites; dilated small bowel, consistent with adynamic ileus; small left pleural effusion. * s/p operative intervention on 12/06: * exploratory laparotomy * ileocolic resection with [id number] ileocolic anastomosis * drainage of intra-abdominal abscess * placement of wound VAC measuring 20 cm x 3 cm * Surgery following (3) History of partial colectomy: Code(s): Z90.49 - Acquired absence of other specified parts of digestive tract Status: Resolved Assessment and Plan: * s/p hand assisted laparoscopic right colectomy, extensive adhesiolysis, mobilization of hepatic flexure by Dr. May on 11/27/24 * pathology showed adenocarcinoma and two tubular adenomas with 4/13 lymph nodes positive * complicated by #2 (4) Anemia: Code(s): D64.9 - Anemia, unspecified Status: Chronic Assessment and Plan: * due to DARRYL, acute illness, and recent operative intervention (on 12/07) * known history of iron deficiency * PRBC transfusion per protocol * follow trend of H/H (5) Hypertension: Qualifiers: Hypertension type: primary hypertension Qualified Code(s): I10 - Essential (primary) hypertension Code(s): I10 - Essential (primary) hypertension Status: Chronic Assessment and Plan: * well controlled * BP medications on hold * follow trend of hemodynamics (6) Urinary retention: Code(s): R33.9 - Retention of urine, unspecified Status: Acute Assessment and Plan: * difficulty urinating on admission * however, bladder scan in ER with only 177cc of urine * possibly exacerbated by constipation... * CT imaging results noted * mc catheter placed * follow I/Os Will continue to follow. Subjective Date/time seen: 12/07/24 11:08 Interval history: Follow-up for acute kidney injury/acute renal failure. Status post operative intervention yesterday afternoon for ileocolic leak as noted by CT scan of A/P yesterday AM -- tolerated the procedure reasonably well; remains hemodynamically stable but has expected abdominal pain at this time; started on TPN today for nutritional support; renal function/creatinine continues to improve with reasonable urine output. Exam Narrative: General: elderly female in NAD Heart: normal S1 and S2; no rub Lungs: clear anteriorly Abdomen: +TTP near incistion; no bowel sounds; + JUHI drain in place Extremities: no cyanosis or clubbing; no edema Skin: warm and intact; wound vac noted Objective Data Vital Signs Vital Signs: Vital Signs Temp Pulse Resp BP Pulse Ox O2 Del Method O2 Flow Rate 12/07/24 11:00 98.2 F 107 H 24 H 135/73 94 12/07/24 08:00 102 H 12/07/24 08:00 100 96 Nasal Cannula 2 12/07/24 08:00 98.3 F 104 H 18 130/70 96 12/07/24 06:00 101 H 12/07/24 04:00 100 94 Nasal Cannula 2 12/07/24 04:00 108 H 12/07/24 04:00 98.2 F 107 H 18 135/72 97 12/07/24 04:00 98.2 F 107 H 18 135/72 97 12/07/24 02:00 98 12/07/24 00:00 99.0 F 102 H 16 116/66 95 12/07/24 00:00 100 94 Nasal Cannula 2 12/07/24 00:00 100 12/06/24 22:00 106 H 111/66 12/06/24 22:00 105 H 12/06/24 20:00 111 H 12/06/24 20:00 99.3 F 108 H 18 86/52 L 97 12/06/24 20:00 111 H 15 96 Nasal Cannula 2 12/06/24 19:00 108 H 15 98/58 L 96 12/06/24 18:00 102 H 16 96 Nasal Cannula 4 12/06/24 18:00 102 H 17 88/56 L 93 12/06/24 17:37 98.3 F 109 H 20 83/47 L 97 12/06/24 16:50 98.7 F 104 H 15 88/54 L 95 Nasal Cannula 4 12/06/24 16:35 103 H 16 90/54 L 95 Nasal Cannula 4 12/06/24 16:21 104 H 16 95/57 L 95 Simple Face Mask 8 12/06/24 16:06 95 Simple Face Mask 8 12/06/24 16:05 106 H 10 L 100/61 96 Mechanical Ventilation 12/06/24 15:50 98.9 F 107 H 12 111/59 L 100 Mechanical Ventilation Intake/Output Intake/Output: Intake & Output 12/04/24 12/05/24 12/06/24 12/07/24 23:59 23:59 23:59 23:59 Intake Total 1880 3853.3 1120 1513.3 Output Total 601 738 7776 755 Balance 1380 3048.3 -645 758.3 Meds/Results Medications: Active Medications Generic Name Dose Route Start Last Admin Trade Name Freq PRN Reason Stop Dose Admin Enoxaparin Sodium 40 mg 12/07/24 09:00 12/07/24 10:01 Enoxaparin 40 Mg/0.4 Ml Syringe SUB-Q Not Given On Hold: 12/07/24 10:02 DAILY CEE Hydromorphone HCl 1 mg 12/06/24 17:15 12/06/24 18:55 Hydromorphone Hcl Inj (*Crx) 1 Mg/Ml Syr IV PUSH 1 mg Q2H PRN Administration Breakthrough Pain Rated 7-10 or NPO Hydromorphone HCl 0.5 mg 12/06/24 17:15 12/07/24 10:10 Hydromorphone Hcl Inj (*Crx) 1 Mg/Ml Syr IV PUSH 0.5 mg Q2H PRN Administration Breakthrough Pain Rated 4-6 or NPO Piperacillin Sod/Tazobactam 50 mls @ 100 mls/hr 12/04/24 18:00 12/07/24 12:13 Sod 2.25 gm/ Sodium Chloride IVPB 100 mls/hr Q6H CEE Administration Dextrose 1,000 mls @ 50 mls/hr 12/06/24 17:15 Dextrose 10% IV CONT .Q20H PRN if PN is interrupted Multivitamins 1.25 ml/ 1,002.5 mls @ 40 mls/hr 12/06/24 18:00 12/07/24 10:10 Multivitamins 1.25 ml/ Amino IV CONT 12/08/24 10:00 40 mls/hr Acids/Electrolytes/Dextrose .Q24H CEE Administration Protocol Fat Emulsion Intravenous 250 mls @ 20.833 mls/hr 12/06/24 18:00 12/06/24 21:09 Lipids 20% IVPB Not Given Q24H [facility] Multivitamins 1.25 ml/ 1,002.5 mls @ 40 mls/hr 12/08/24 10:00 Multivitamins 1.25 ml/ Amino IV CONT Acids/Electrolytes/Dextrose .Q24H CEE Protocol Naloxone HCl 0.1 mg 12/06/24 17:15 Naloxone Hcl 0.4 Mg/Ml Vial IV PUSH Q2M PRN Opiate Reversal Ondansetron HCl 4 mg 12/03/24 17:26 12/03/24 17:44 Ondansetron Inj 4 Mg/2 Ml Vial IV PUSH 4 mg Q4H PRN Administration Nausea And Vomiting Pantoprazole Sodium 40 mg 12/07/24 09:00 12/07/24 10:00 Pantoprazole Sodium Iv 40 Mg Vial IV PUSH 40 mg QAM CEE Administration Phenol 1 spray 12/07/24 10:05 Phenol/Sod Pheno [place] Salomon (*Bkc) MUCOUS MEM Q2H PRN Sore Throat Sodium Chloride 10 ml 12/07/24 14:00 12/07/24 14:16 Central Line Flush IV PUSH 10 ml Q8HR CEE Administration Sodium Chloride 10 ml 12/07/24 09:45 Central Line Flush IV PUSH PRN PRN with TPN bag changes Sodium Chloride 20 ml 12/07/24 09:45 Central Line Flush IV PUSH PRN PRN after blood draws Radiology Results: ITS Impressions Renal Ultrasound 12/04/24 21:30 Impression: 1: Unremarkable renal ultrasound. No stones, masses or hydronephrosis. Pulmonary Perfusion Imaging 12/05/24 18:55 IMPRESSION: 1: Normal perfusion scan. Probable shallow lung volumes. Recommend correlation with chest x-ray.. Abdomen/Pelvis CT 12/06/24 09:26 IMPRESSION: 1. 7.2 x 1.8 x 7.9 cm collection of fluid, gas, and oral contrast in right paracolic gutter, consistent with anastomotic leak.. 2. Small volume of ascites. 3. Dilated small bowel, consistent with adynamic ileus. 4. Small left pleural effusion. Chest X-Ray 12/07/24 10:22 IMPRESSION: 1. Bibasilar atelectasis and/or airspace disease. Labs Labs: Laboratory Results - last 24 hr 12/07/24 03:58 WBC 14.7 H Hgb 7.8 L Hct 25.4 L Plt Count 188 Sodium 136 L Potassium 3.7 Chloride 104 Carbon Dioxide 24 Anion Gap 8 BUN 56 H Creatinine 1.28 H Glucose 120 H Calcium 7.6 L Phosphorus 4.0 Magnesium 2.7 H Total Bilirubin 0.7 AST 68 H ALT 31 Alkaline Phosphatase 102 Total Protein 4.8 L Albumin 2.7 L
[2024-12-07 14:10] LABS: Hematocrit 23.3 % (37.0-47.0); Hemoglobin 7.3 g/dL (12.0-15.0)
[2024-12-07] MEDS: CENTRAL LINE FLUSH 10 ML IV PUSH ×2 (14:16→22:08)
[2024-12-07] MEDS: HYDROmorphone HCL INJ (*CRX) 1 MG/ML SYR IV PUSH ×2 (16:02→23:28)
--- NOTE | 2024-12-07 17:17 | P.PNAN_ITS ---
Anes - Prog Note Post-Op Date/Time: 12/07/24 17:17 Cardiovascular status: normal Respiratory status: normal Airway patency: baseline Mental status: baseline Post-Op hydration status: normal Vital Signs: Last Vital Signs Temp 98.1 F 12/07/24 16:00 Pulse 105 H 12/07/24 16:00 Resp 24 H 12/07/24 16:00 BP 125/71 12/07/24 16:00 Pulse Ox 94 12/07/24 16:00 O2 Del Method Nasal Cannula 12/07/24 16:00 O2 Flow Rate 2 12/07/24 16:00 FiO2 96 12/07/24 08:00 Pain Score (VAS): 0/10 I/O: Intake & Output 12/07/24 12/07/24 12/07/24 07:59 15:59 23:59 Intake Total 1100 1463.3 Output Total 755 Balance 345 1463.3 Laboratory Tests 12/07/24 13:54 12/07/24 03:58 12/06/24 12/06/24 12/07/24 17:43 18:38 00:20 WBC 13.3 H RBC 3.69 L Hgb 9.3 L Hct 28.9 L MCV 78.3 L MCH 25.2 L MCHC 32.2 RDW 20.2 H Plt Count 211 MPV 10.6 H Immature Gran % (Auto) 1.3 H Neut % (Auto) 93.0 H Lymph % (Auto) 4.1 L [place] % (Auto) 1.3 L Eos % (Auto) 0.1 Baso % (Auto) 0.2 Lymph # (Auto) 0.54 L [place] # (Auto) 0.2 Eos # (Auto) 0.0 Baso # (Auto) 0.0 Abs Immat Gran (auto) 0.17 H Absolute Neuts (auto) 12.4 H Absolute Nucleated RBC 0.030 H Band Neutrophils % Not Reportable Nucleated RBC % 0.2 Smudge Cells Platelet Estimate Adequate Hypochromasia Anisocytosis 1+ Ovalocytes 1+ Angel Luis Cells 1+ Schistocytes None seen APTT 26.3 Sodium 134 L Potassium 3.8 Chloride 104 Carbon Dioxide 26 Anion Gap 4 BUN 55 H Creatinine 1.45 H Estim Creat Clear Calc Not Reportable Estimated GFR 36 L Glucose 123 H POC Capillary Glucose 119 H 121 H Calcium 7.8 L Phosphorus Magnesium 2.5 H Transferrin 120 L Total Bilirubin 0.5 AST 71 H ALT 38 H Alkaline Phosphatase 156 H Total Protein 4.6 L Albumin 2.0 L 12/07/24 12/07/24 12/07/24 03:58 12:12 13:54 WBC 14.7 H RBC 3.04 L Hgb 7.8 L 7.3 L Hct 25.4 L 23.3 L MCV 83.6 D MCH 25.7 L MCHC 30.7 L RDW 20.6 H Plt Count 188 MPV 11.5 H Immature Gran % (Auto) 1.8 H Neut % (Auto) 92.3 H Lymph % (Auto) 4.4 L [place] % (Auto) 1.1 L Eos % (Auto) 0.0 Baso % (Auto) 0.4 Lymph # (Auto) 0.65 L [place] # (Auto) 0.2 Eos # (Auto) 0.0 Baso # (Auto) 0.1 Abs Immat Gran (auto) 0.27 H Absolute Neuts (auto) 13.6 H Absolute Nucleated RBC 0.020 H Band Neutrophils % Not Reportable Nucleated RBC % 0.1 Smudge Cells Present Platelet Estimate Adequate Hypochromasia 1+ Anisocytosis 1+ Ovalocytes 1+ Angel Luis Cells 1+ Schistocytes None seen APTT Sodium 136 L Potassium 3.7 Chloride 104 Carbon Dioxide 24 Anion Gap 8 BUN 56 H Creatinine 1.28 H Estim Creat Clear Calc Not Reportable Estimated GFR 42 L Glucose 120 H POC Capillary Glucose 158 H Calcium 7.6 L Phosphorus 4.0 Magnesium 2.7 H Transferrin Total Bilirubin 0.7 AST 68 H ALT 31 Alkaline Phosphatase 102 Total Protein 4.8 L Albumin 2.7 L Microbiology 12/04/24 22:04 Blood Blood Culture - Preliminary 12/04/24 22:03 Blood Blood Culture - Preliminary Post-procedural complaints: none Patient Feedback: Patient satisfied with anesthetic care.
[2024-12-07] MEDS: FAT EMULSIONS IV 20% 250 ML 20.83 ML IVPB (17:24)
[2024-12-07 17:41] LABS: Triglycerides 90 mg/dL (<150)
--- NOTE | 2024-12-07 20:19 | P.PNIM_ITS ---
Progress Note: A&P Assessment and Plan (1) Acute kidney injury: Code(s): N17.9 - Acute kidney failure, unspecified Status: Acute Assessment and Plan: Creatinine 0.99 and BUN 29, GFR 56 upon admission on 12/03. Increased to 1.63, BUN 38, GFR 32. Initially presented with difficulty urinating, did undergo straight catheterization in the ED and now has Limon placed. Nephrology following, multifactorial etiology including contrast exposure, ARB use prior to admission, hypotension, urinary retention, possibly infection Improving, ultrasound completed, urine electrolytes demonstrate pre renal cause, CPK normal. Hold losartan. Continue TPN. (2) Urinary retention: Code(s): R33.9 - Retention of urine, unspecified Status: Acute Assessment and Plan: - reporting post-operative constipation, last BM was 4+ days prior to admission on 12/03, may be contributing to her retention - CT additionally showed 7 x 3 cm fluid collection in the pelvis situated between the uterus and the bladder with some mass effect on the bladder. General Surgery aware of issue, however it is in a location that is difficult to access and not a well organized collection, could also be contributing to retention. - Limon placed on 12/03, started on Flomax - likely source of patient's DARRYL (3) History of partial colectomy: Code(s): Z90.49 - Acquired absence of other specified parts of digestive tract Status: Resolved Assessment and Plan: Underwent a hand assisted laparoscopic right colectomy, extensive adhesiolysis, mobilization of hepatic flexure by Dr. May on 11/27/24. Pathology showed adenocarcinoma and two tubular adenomas, with 4/13 lymph nodes positive. - presented 6 days postop with increased mid to right lower abdominal pain and urinary retention. - patient presents 6 days postop following AMBER right colectomy for right colon cancer. She has had increased mid to right lower abdominal pain over the past few days and also developed urinary retention. - exam findings and CT concerning for possible anastomotic leak - started on Zosyn on 12/03 CT abdomen/pelvis, 12/03 (7:31): 1. Small amount scattered free intraperitoneal gas and fluid and a few small collections of gas and fluid in the pelvis without well-defined peripheral enhancing wall to suggest organized abscess, likely related to recent right hemicolectomy and ileocolic anastomosis. 2. Persistent wall thickening along the sigmoid colon suggestive of scarring related to prior diverticulitis no significant surrounding inflammatory stranding to elevate suspicion for acute colitis/diverticulitis. 3. Persistent intra and extra hepatic biliary ductal dilation and dilation of the main pancreatic duct which may relate to prior cholecystectomy. Correlate with liver function tests and lipase levels and if clinically indicated could consider MRCP for further evaluation. CT repeated later on 12/03 (15:36): 1. Postoperative ileus with no dilated bowel or transition point and with the majority contrast remaining within the stomach and only a small amount of contrast having extended to the mid to distal jejunum 5 1/2 hours post oral contrast administration. No contrast in the region of the ileocolic anastomosis which precludes assessment for anastomotic leak. 2. No significant change in a nonspecific small amount of scattered free intraperineal gas and fluid in the abdomen and pelvis which could be directly secondary to the recent surgery. 3. Mild diverticulosis along the sigmoid colon where there is chronic wall thickening which could be due to scarring related to chronic diverticulitis versus less likely acute colitis or diverticulitis. Repeat CT 12/06/2024 with 7.2 x 1.8 x 7.9 cm collection of fluid, gas and oral contrast in the right paracolic gutter consistent with anastomotic leak. Small volume of ascites. Dilated small bowel consistent with adynamic ileus and small left pleural effusion. On 12/06/2024 underwent exploratory laparotomy with ileocolic resection with [id number] ileocolic anastomosis, drainage of intra-abdominal abscess, placement of wound VAC measuring 20 cm x 3 cm. She is doing relatively well postop, bowel rest, TPN. Mobilize when okay with surgery. She has hypoxia, chest x-ray demonstrates atelectasis, she is not moving around much, encourage the patient to move a bit more and use the incentive spirometer. 12/04/2024 blood culture x2, no growth at 24 hours. Afebrile. Leukocytosis persistent, continue to monitor. Anemia likely due to DARRYL, infection, post hemorrhagic anemia. Continue to trend hemoglobin q.6 hours, the patient is amenable to transfusion with a goal of hemoglobin greater than 7. She denies any coronary artery disease. (4) Hyperlipidemia: Qualifiers: Hyperlipidemia type: unspecified Qualified Code(s): E78.5 - Hyperlipidemia, unspecified Code(s): E78.5 - Hyperlipidemia, unspecified Status: Chronic Assessment and Plan: Hold home medications while NPO. (5) Hypertension: Qualifiers: Hypertension type: primary hypertension Qualified Code(s): I10 - Essential (primary) hypertension Code(s): I10 - Essential (primary) hypertension Status: Chronic Assessment and Plan: Hold home medications for now, continue to monitor. At goal. (6) Tachycardia: Code(s): R00.0 - Tachycardia, unspecified Status: Acute Assessment and Plan: Improved. Plan Her surgery, bowel rest and TPN. Protonix 40 mg IV q.a.m. DVT Prophylaxis: SCDs only, hold Lovenox due to anemia TPN Lines/Tubes: peripheral IV Code Status: full code Subjective Date/time seen: 12/07/24 20:19 Interval history: Reports some abdominal pain. Denies shortness of breath or cough. Review of Systems Review of Systems: All systems reviewed & are unremarkable except as noted in HPI and below (Subjective) Exam Narrative: GENERAL: Alert and oriented x3, not in acute distress HEAD: Normal with no signs of head trauma. EYES: EOMI, conjunctiva normal ENT: Hearing grossly intact LUNGS: Nonlabored breathing. No adventitious sounds HEART: [Regular rate and rhythm] ABD: [Soft], mildly distended, mild tenderness, surgical incision with wound VAC, clean dry and intact EXT: Normal range of motion SKIN: [No rashes or lesions.] NEURO: [Alert and oriented x 3. No gross focal sensory or strength deficits.] PSYCH: Normal affect Objective Data Vital Signs Vital Signs: Vital Signs - 24 hr 12/06/24 22:00 12/06/24 22:00 12/07/24 00:00 Temperature Pulse Rate 105 H 106 H 100 Respiratory Rate Blood Pressure 111/66 Pulse Oximetry Oxygen Delivery Oxygen Flow Rate Fraction of Inspired Oxygen 12/07/24 00:00 12/07/24 00:00 12/07/24 02:00 Temperature 99.0 F Pulse Rate 100 102 H 98 Respiratory Rate 16 Blood Pressure 116/66 Pulse Oximetry 94 95 Oxygen Delivery Nasal Cannula Oxygen Flow Rate 2 Fraction of Inspired Oxygen 96 12/07/24 04:00 12/07/24 04:00 12/07/24 04:00 Temperature 98.2 F 98.2 F Pulse Rate 107 H 107 H 108 H Respiratory Rate 18 18 Blood Pressure 135/72 135/72 Pulse Oximetry 97 97 Oxygen Delivery Oxygen Flow Rate Fraction of Inspired Oxygen 12/07/24 04:00 12/07/24 06:00 12/07/24 08:00 Temperature 98.3 F Pulse Rate 100 101 H 104 H Respiratory Rate 18 Blood Pressure 130/70 Pulse Oximetry 94 96 Oxygen Delivery Nasal Cannula Oxygen Flow Rate 2 Fraction of Inspired Oxygen 96 12/07/24 08:00 12/07/24 08:00 12/07/24 10:00 Temperature Pulse Rate 102 H 106 H Respiratory Rate Blood Pressure Pulse Oximetry 96 Oxygen Delivery Nasal Cannula Oxygen Flow Rate 2 Fraction of Inspired Oxygen 12/07/24 12:00 12/07/24 12:00 12/07/24 12:00 Temperature 98.2 F Pulse Rate 107 H 102 H Respiratory Rate 24 H Blood Pressure 135/73 Pulse Oximetry 94 94 Oxygen Delivery Nasal Cannula Oxygen Flow Rate 2 Fraction of Inspired Oxygen 12/07/24 14:00 12/07/24 16:00 12/07/24 16:00 Temperature 98.1 F Pulse Rate 106 H 109 H Respiratory Rate 24 H Blood Pressure 125/71 Pulse Oximetry 92 94 Oxygen Delivery Nasal Cannula Oxygen Flow Rate 2 Fraction of Inspired Oxygen 12/07/24 16:00 12/07/24 18:00 Temperature Pulse Rate 105 H 108 H Respiratory Rate Blood Pressure Pulse Oximetry Oxygen Delivery Oxygen Flow Rate Fraction of Inspired Oxygen Intake/Output Intake/Output: Intake & Output 12/04/24 12/05/24 12/06/24 12/07/24 23:59 23:59 23:59 23:59 Intake Total 1880 3853.3 1120 2613.3 Output Total 988 438 8859 3005 Balance 1380 3048.3 -645 -391.7 Meds/Results Medications: Active Medications Generic Name Dose Route Start Last Admin Trade Name Freq PRN Reason Stop Dose Admin Enoxaparin Sodium 40 mg 12/07/24 09:00 12/07/24 10:01 Enoxaparin 40 Mg/0.4 Ml Syringe SUB-Q Not Given On Hold: 12/07/24 10:02 DAILY CEE Hydromorphone HCl 1 mg 12/06/24 17:15 12/07/24 16:02 Hydromorphone Hcl Inj (*Crx) 1 Mg/Ml Syr IV PUSH 1 mg Q2H PRN Administration Breakthrough Pain Rated 7-10 or NPO Hydromorphone HCl 0.5 mg 12/06/24 17:15 12/07/24 18:13 Hydromorphone Hcl Inj (*Crx) 1 Mg/Ml Syr IV PUSH 0.5 mg Q2H PRN Administration Breakthrough Pain Rated 4-6 or NPO Piperacillin Sod/Tazobactam 50 mls @ 100 mls/hr 12/04/24 18:00 12/07/24 17:55 Sod 2.25 gm/ Sodium Chloride IVPB Infused Q6H CEE Infusion Dextrose 1,000 mls @ 50 mls/hr 12/06/24 17:15 Dextrose 10% IV CONT .Q20H PRN if PN is interrupted Multivitamins 1.25 ml/ 1,002.5 mls @ 40 mls/hr 12/06/24 18:00 12/07/24 10:10 Multivitamins 1.25 ml/ Amino IV CONT 12/08/24 10:00 40 mls/hr Acids/Electrolytes/Dextrose .Q24H CEE Administration Protocol Fat Emulsion Intravenous 250 mls @ 20.833 mls/hr 12/06/24 18:00 12/07/24 17:24 Lipids 20% IVPB 20.83 mls/hr Q24H CEE Administration Multivitamins 1.25 ml/ 1,002.5 mls @ 40 mls/hr 12/08/24 10:00 Multivitamins 1.25 ml/ Amino IV CONT Acids/Electrolytes/Dextrose .Q24H CEE Protocol Naloxone HCl 0.1 mg 12/06/24 17:15 Naloxone Hcl 0.4 Mg/Ml Vial IV PUSH Q2M PRN Opiate Reversal Ondansetron HCl 4 mg 12/03/24 17:26 12/03/24 17:44 Ondansetron Inj 4 Mg/2 Ml Vial IV PUSH 4 mg Q4H PRN Administration Nausea And Vomiting Pantoprazole Sodium 40 mg 12/07/24 09:00 12/07/24 10:00 Pantoprazole Sodium Iv 40 Mg Vial IV PUSH 40 mg QAM CEE Administration Phenol 1 spray 12/07/24 10:05 Phenol/Sod Pheno [place] (*Bkc) MUCOUS MEM Q2H PRN Sore Throat Sodium Chloride 10 ml 12/07/24 14:00 12/07/24 14:16 Central Line Flush IV PUSH 10 ml Q8HR CEE Administration Sodium Chloride 10 ml 12/07/24 09:45 Central Line Flush IV PUSH PRN PRN with TPN bag changes Sodium Chloride 20 ml 12/07/24 09:45 Central Line Flush IV PUSH PRN PRN after blood draws Radiology Results: ITS Impressions Renal Ultrasound 12/04/24 21:30 Impression: 1: Unremarkable renal ultrasound. No stones, masses or hydronephrosis. Pulmonary Perfusion Imaging 12/05/24 18:55 IMPRESSION: 1: Normal perfusion scan. Probable shallow lung volumes. Recommend correlation with chest x-ray.. Abdomen/Pelvis CT 12/06/24 09:26 IMPRESSION: 1. 7.2 x 1.8 x 7.9 cm collection of fluid, gas, and oral contrast in right paracolic gutter, consistent with anastomotic leak.. 2. Small volume of ascites. 3. Dilated small bowel, consistent with adynamic ileus. 4. Small left pleural effusion. Chest X-Ray 12/07/24 10:22 IMPRESSION: 1. Bibasilar atelectasis and/or airspace disease. Labs Labs: Laboratory Results - last 24 hr 12/07/24 12/07/24 12/07/24 00:20 03:58 12:12 WBC 14.7 H RBC 3.04 L Hgb 7.8 L Hct 25.4 L MCV 83.6 D MCH 25.7 L MCHC 30.7 L RDW 20.6 H Plt Count 188 MPV 11.5 H Immature Gran % (Auto) 1.8 H Neut % (Auto) 92.3 H Lymph % (Auto) 4.4 L [place] % (Auto) 1.1 L Eos % (Auto) 0.0 Baso % (Auto) 0.4 Lymph # (Auto) 0.65 L [place] # (Auto) 0.2 Eos # (Auto) 0.0 Baso # (Auto) 0.1 Abs Immat Gran (auto) 0.27 H Absolute Neuts (auto) 13.6 H Absolute Nucleated RBC 0.020 H Band Neutrophils % Not Reportable Nucleated RBC % 0.1 Smudge Cells Present Platelet Estimate Adequate Hypochromasia 1+ Anisocytosis 1+ Ovalocytes 1+ [place] Cells 1+ Schistocytes None seen Sodium 136 L Potassium 3.7 Chloride 104 Carbon Dioxide 24 Anion Gap 8 BUN 56 H Creatinine 1.28 H Estim Creat Clear Calc Not Reportable Estimated GFR 42 L Glucose 120 H POC Capillary Glucose 121 H 158 H Calcium 7.6 L Phosphorus 4.0 Magnesium 2.7 H Total Bilirubin 0.7 AST 68 H ALT 31 Alkaline Phosphatase 102 Total Protein 4.8 L Albumin 2.7 L Triglycerides 12/07/24 12/07/24 12/07/24 13:54 16:24 17:22 WBC RBC Hgb 7.3 L Hct 23.3 L MCV MCH MCHC RDW Plt Count MPV Immature Gran % (Auto) Neut % (Auto) Lymph % (Auto) [place] % (Auto) Eos % (Auto) Baso % (Auto) Lymph # (Auto) [place] # (Auto) Eos # (Auto) Baso # (Auto) Abs Immat Gran (auto) Absolute Neuts (auto) Absolute Nucleated RBC Band Neutrophils % Nucleated RBC % Smudge Cells Platelet Estimate Hypochromasia Anisocytosis Ovalocytes [place] Cells Schistocytes Sodium Potassium Chloride Carbon Dioxide Anion Gap BUN Creatinine Estim Creat Clear Calc Estimated GFR Glucose POC Capillary Glucose 190 H Calcium Phosphorus Magnesium Total Bilirubin AST ALT Alkaline Phosphatase Total Protein Albumin Triglycerides 90
[2024-12-07] MEDS: CENTRAL LINE FLUSH 20 ML IV PUSH (22:19)
[2024-12-07 22:36] LABS: Hematocrit 25.0 % (37.0-47.0); Hemoglobin 7.8 g/dL (12.0-15.0)
[2024-12-08] VITALS (16 sets, daily range): BP systolic 125–148; BP diastolic 75–81; PULSE 99–110; RESP 16–20; TEMP 36.5–37.8; O2SAT 92–97
[2024-12-08] MEDS: HYDROmorphone HCL INJ (*CRX) 1 MG/ML SYR IV PUSH ×5 (04:04→21:07)
[2024-12-08] MEDS: CENTRAL LINE FLUSH 20 ML IV PUSH (04:08)
[2024-12-08 05:13] LABS: Hematocrit 24.9 % (37.0-47.0); Hemoglobin 8.0 g/dL (12.0-15.0); Mean Corpuscular HGB Conc 32.1 g/dl (32-36); Mean Corpuscular Hemoglobin 26.6 pg (26-34); Mean Corpuscular Volume 82.7 fl (80-100); Platelet Count Result 254 k/mm3 (150-375); Red Blood Count 3.01 M/mm3 (4.2-5.4); White Blood Count 19.9 K/mm3 (4.5-10.0)
[2024-12-08 05:32] LABS: Alanine Aminotransferase 33 U/L (6-35); Albumin Level 2.5 g/dL (3.5-5.1); Alkaline Phosphatase 143 U/L (38-126); Anion Gap 3 mmol/L (4-12); Aspartate Amino Transferase 122 U/L (14-36); Bilirubin,Total 0.5 mg/dL (0.2-1.3); Blood Urea Nitrogen 40 mg/dL (7-17); Calcium 7.7 mg/dL (8.4-10.2); Carbon Dioxide 29 mmol/L (22-30); Chloride 104 mmol/L (98-107); Estimated Glomerular Filt Rate 58; Glucose 475 mg/dL (65-110); Magnesium 3.0 mg/dL (1.6-2.3); Potassium 4.2 mmol/L (3.4-5.0); Sodium 136 mmol/L (137-145); Total Protein 5.1 g/dL (6.3-8.2)
[2024-12-08 05:37] LABS: Band Neutrophils Percent 3 % (0-6); Lymphocytes Absolute Manual 1.39 K/mm3 (1.1-4.5); Lymphocytes Percent Manual 7.0 % (18-44); Monocytes Absolute Manual 0.39 K/mm3 (0.1-0.90); Monocytes Percent Manual 2 % (3-9); Myelocytes Percent 2 %; Neutrophils Absolute Manual 17.71 K/mm3 (1.3-6.7); Neutrophils Percent Manual 86 % (46-73); Total Cells Counted 100
[2024-12-08 05:38] LABS: Anisocytosis 1+; Ovalocytes 1+; Polychromasia Occasional; Schistocytes None Seen; Smudge Cells MODERATE
[2024-12-08 05:44] LABS: Procalcitonin 1.8 ng/mL
[2024-12-08] MEDS: CENTRAL LINE FLUSH 10 ML IV PUSH ×3 (05:58→21:08)
[2024-12-08] MEDS: PIPERACILLIN/TAZOBACTAM SOD 2.25 GM in SODIUM CHLORIDE 0.9% IV 50 ML 100 ML IVPB ×4 (05:58→23:58)
[2024-12-08] MEDS: PANTOPRAZOLE SODIUM IV 40 MG VIAL IV PUSH (08:51)
[2024-12-08 08:55] LABS: NT Pro B Type Natriuretic Pept 463 pg/mL (19.9-100)
[2024-12-08] MEDS: AMINO ACIDS 5%/D15W/E-LYTES/CA 1,000 ML with MULTIVITAMINS-12 INJ VIAL 1 1.25 ML, MULTI... 40 ML IV CONT (10:03)
--- NOTE | 2024-12-08 11:39 | P.PNNP_ITS ---
Progress Note: A&P Assessment and Plan (1) Acute kidney injury: Code(s): N17.9 - Acute kidney failure, unspecified Status: Acute Assessment and Plan: * improvement noted if not resolved * as noted since 12/04 * admission creatinine 0.99mg/dl * normal baseline creatinine * suspect multifactorial etiology: * prerenal factors * contrast exposure (first CT on 12/04/23) * ARB use prior to admission * relative hypotension * element of urinary retention * infection (?) * other (?) * evaluation to date noted: * renal ultrasound without obstruction * urine electrolytes prerenal * urine eosinophil negative * UA with 2+ protein * CPK normal * agree with holding losartan for now * may need to restart depending on trend of BP * follow trend of repeat labs and UOP (2) Ileocolic anastomotic leak: Code(s): K91.89 - Other postprocedural complications and disorders of digestive system Status: Acute Assessment and Plan: * CT imaging to date noted: * on 12/03 (at 07:31): small amount scattered free intraperitoneal gas and fluid and a few small collections of gas and fluid in the pelvis without well-defined peripheral enhancing wall to suggest organized abscess, likely related to recent right hemicolectomy and ileocolic anastomosis; persistent wall thickening along the sigmoid colon suggestive of scarring related to prior diverticulitis no significant surrounding inflammatory stranding to elevate suspicion for acute colitis/diverticulitis; persistent intra and extra hepatic biliary ductal dilation and dilation of the main pancreatic duct which may relate to prior cholecystectomy. Correlate with liver function tests and lipase levels and if clinically indicated could consider MRCP for further evaluation. * on 12/03 (15:36): postoperative ileus with no dilated bowel or transition point and with the majority contrast remaining within the stomach and only a small amount of contrast having extended to the mid to distal jejunum 5 1/2 hours post oral contrast administration. No contrast in the region of the ileocolic anastomosis which precludes assessment for anastomotic leak; no significant change in a nonspecific small amount of scattered free intraperineal gas and fluid in the abdomen and pelvis which could be directly secondary to the recent surgery; mild diverticulosis along the sigmoid colon where there is chronic wall thickening which could be due to scarring related to chronic diverticulitis versus less likely acute colitis or diverticulitis * on 12/06: 7.2 x 1.8 x 7.9 cm collection of fluid, gas, and oral contrast in right paracolic gutter, consistent with anastomotic leak; small volume of ascites; dilated small bowel, consistent with adynamic ileus; small left pleural effusion. * s/p operative intervention on 12/06: * exploratory laparotomy * ileocolic resection with [id number] ileocolic anastomosis * drainage of intra-abdominal abscess * placement of wound VAC measuring 20 cm x 3 cm * Surgery following (3) History of partial colectomy: Code(s): Z90.49 - Acquired absence of other specified parts of digestive tract Status: Resolved Assessment and Plan: * s/p hand assisted laparoscopic right colectomy, extensive adhesiolysis, mobilization of hepatic flexure by Dr. May on 11/27/24 * pathology showed adenocarcinoma and two tubular adenomas with 4/13 lymph nodes positive * complicated by #2 (4) Anemia: Code(s): D64.9 - Anemia, unspecified Status: Chronic Assessment and Plan: * due to DARRYL, acute illness, and recent operative intervention (on 12/07) * known history of iron deficiency * PRBC transfusion per protocol * follow trend of H/H (5) Hypertension: Qualifiers: Hypertension type: primary hypertension Qualified Code(s): I10 - Essential (primary) hypertension Code(s): I10 - Essential (primary) hypertension Status: Chronic Assessment and Plan: * well controlled * BP medications on hold * follow trend of hemodynamics (6) Urinary retention: Code(s): R33.9 - Retention of urine, unspecified Status: Acute Assessment and Plan: * difficulty urinating on admission * however, bladder scan in ER with only 177cc of urine * possibly exacerbated by constipation... * CT imaging results noted * mc catheter placed * follow I/Os Not much else to add -- will follow from a distance... L Subjective Date/time seen: 12/08/24 11:39 Interval history: Follow-up for acute kidney injury/acute renal failure. Resting comfortably at the time of my visit; pain control seems adequate; renal function/creatinine has improved if not back to baseline with reasonable urine output; remains on TPN support as no bowel function as of yet; no other issues/events overnight or earlier this morning. Exam 2 Narrative: General: elderly female in NAD Heart: normal S1 and S2; no rub Lungs: clear anteriorly Abdomen: +TTP near incision; no bowel sounds; + JUHI drain in place Extremities: no cyanosis or clubbing; no edema Skin: no rash; wound vac noted Objective Data Vital Signs Vital Signs: Vital Signs Temp Pulse Resp BP Pulse Ox O2 Del Method O2 Flow Rate 12/08/24 11:34 97.7 F 103 H 18 148/81 H 97 12/08/24 10:42 95 Nasal Cannula 2 12/08/24 10:00 104 H 12/08/24 08:30 Nasal Cannula 2 12/08/24 08:00 101 H 12/08/24 08:00 96 Nasal Cannula 2 12/08/24 07:59 98.9 F 107 H 18 125/79 96 12/08/24 06:00 108 H 12/08/24 05:37 98.2 F 106 H 20 95 12/08/24 04:00 108 H 12/08/24 04:00 110 H 20 92 Nasal Cannula 2 12/08/24 04:00 100.0 F H 110 H 20 146/77 H 92 12/08/24 02:00 105 H 12/08/24 00:00 106 H 12/07/24 23:36 98.2 F 113 H 18 141/79 H 92 12/07/24 23:25 113 H 18 92 Nasal Cannula 2 12/07/24 22:00 111 H 12/07/24 21:43 108 H 20 93 Nasal Cannula 2 12/07/24 20:00 108 H 12/07/24 20:00 99.7 F H 108 H 20 143/69 H 93 12/07/24 18:00 108 H 12/07/24 16:00 105 H 12/07/24 16:00 94 Nasal Cannula 2 12/07/24 16:00 98.1 F 109 H 24 H 125/71 92 Intake/Output Intake/Output: Intake & Output 12/05/24 12/06/24 12/07/24 12/08/24 23:59 23:59 23:59 23:59 Intake Total 3853.3 1120 2663.3 426.7 Output Total 805 1765 3340 880 Balance 3048.3 -645 -676.7 -453.3 Meds/Results Medications: Active Medications Generic Name Dose Route Start Last Admin Trade Name Freq PRN Reason Stop Dose Admin Enoxaparin Sodium 40 mg 12/07/24 09:00 12/07/24 10:01 Enoxaparin 40 Mg/0.4 Ml Syringe SUB-Q Not Given DAILY CEE Hydromorphone HCl 1 mg 12/06/24 17:15 12/08/24 14:56 Hydromorphone Hcl Inj (*Crx) 1 Mg/Ml Syr IV PUSH 1 mg Q2H PRN Administration Breakthrough Pain Rated 7-10 or NPO Hydromorphone HCl 0.5 mg 12/06/24 17:15 12/07/24 18:13 Hydromorphone Hcl Inj (*Crx) 1 Mg/Ml Syr IV PUSH 0.5 mg Q2H PRN Administration Breakthrough Pain Rated 4-6 or NPO Piperacillin Sod/Tazobactam 50 mls @ 100 mls/hr 12/04/24 18:00 12/08/24 12:30 Sod 2.25 gm/ Sodium Chloride IVPB Infused Q6H CEE Infusion Dextrose 1,000 mls @ 50 mls/hr 12/06/24 17:15 Dextrose 10% IV CONT .Q20H PRN if PN is interrupted Fat Emulsion Intravenous 250 mls @ 20.833 mls/hr 12/06/24 18:00 12/08/24 06:16 Lipids 20% IVPB Infused Q24H CEE Infusion Multivitamins 1.25 ml/ 1,002.5 mls @ 50 mls/hr 12/08/24 10:00 12/08/24 11:58 Multivitamins 1.25 ml/ Amino IV CONT 50 mls/hr Acids/Electrolytes/Dextrose .Q20H3M CEE Infusion Protocol Naloxone HCl 0.1 mg 12/06/24 17:15 Naloxone Hcl 0.4 Mg/Ml Vial IV PUSH Q2M PRN Opiate Reversal Ondansetron HCl 4 mg 12/03/24 17:26 12/03/24 17:44 Ondansetron Inj 4 Mg/2 Ml Vial IV PUSH 4 mg Q4H PRN Administration Nausea And Vomiting Pantoprazole Sodium 40 mg 12/07/24 09:00 12/08/24 08:51 Pantoprazole Sodium Iv 40 Mg Vial IV PUSH 40 mg QAM CEE Administration Phenol 1 spray 12/07/24 10:05 Phenol/Sod Pheno [place] (*Bkc) MUCOUS MEM Q2H PRN Sore Throat Sodium Chloride 10 ml 12/07/24 14:00 12/08/24 13:14 Central Line Flush IV PUSH 10 ml Q8HR CEE Administration Sodium Chloride 10 ml 12/07/24 09:45 Central Line Flush IV PUSH PRN PRN with TPN bag changes Sodium Chloride 20 ml 12/07/24 09:45 12/08/24 04:08 Central Line Flush IV PUSH 20 ml PRN PRN Administration after blood draws Radiology Results: ITS Impressions Renal Ultrasound 12/04/24 21:30 Impression: 1: Unremarkable renal ultrasound. No stones, masses or hydronephrosis. Pulmonary Perfusion Imaging 12/05/24 18:55 IMPRESSION: 1: Normal perfusion scan. Probable shallow lung volumes. Recommend correlation with chest x-ray.. Abdomen/Pelvis CT 12/06/24 09:26 IMPRESSION: 1. 7.2 x 1.8 x 7.9 cm collection of fluid, gas, and oral contrast in right paracolic gutter, consistent with anastomotic leak.. 2. Small volume of ascites. 3. Dilated small bowel, consistent with adynamic ileus. 4. Small left pleural effusion. Chest X-Ray 12/07/24 10:22 IMPRESSION: 1. Bibasilar atelectasis and/or airspace disease. Labs Labs: Laboratory Tests 12/08/24 04:15 12/08/24 04:15 Calcium 7.7 L Phosphorus 3.5 Magnesium 3.0 H Total Bilirubin 0.5 AST 122 H ALT 33 Alkaline Phosphatase 143 H NT-Pro-B Natriuret Pep 463 H Total Protein 5.1 L Albumin 2.5 L Procalcitonin 1.8 Microbiology 12/04/24 22:04 Blood Blood Culture - Preliminary 12/04/24 22:03 Blood Blood Culture - Preliminary
--- NOTE | 2024-12-08 14:12 | P.PNGS_ITS ---
Progress Note: A&P Assessment and Plan (1) Ileocolic anastomotic leak: Code(s): K91.89 - Other postprocedural complications and disorders of digestive system Status: Acute Assessment and Plan: * Continue Zosyn, bowel rest, NG decompression * Await return of bowel function * PT/OT ordered * TPN until diet resumed * Increase activity as tolerated * Will plan to change wound vac on Monday, possibly eventually plan for delayed primary closure next week. (2) Intra-abdominal abscess post-procedure: Code(s): T81.43XA - Infection following a procedure, organ and space surgical site, initial encounter; K65.1 - Peritoneal abscess Status: Acute Assessment and Plan: * Serosanguinous output in JUHI drain (3) Acute blood loss anemia: Code(s): D62 - Acute posthemorrhagic anemia Status: Acute Assessment and Plan: * Lovenox may be resumed (4) Adenocarcinoma of colon: Code(s): C18.9 - Malignant neoplasm of colon, unspecified Status: Acute Subjective Subjective Date/Time Seen: 12/08/24 14:12 Interval history: No flatus or BM yet. Pain controlled. Able to get up to chair for a couple hours today. Exam GI: Inspection: other (JUHI serosanguinous, Wound vac in place with no drainage) GI Palp: Yes Soft to palpation and Yes Tenderness to palpation present (GI) (incisional) Auscultation: Hypoactive bowel sounds present Objective Data Vital Signs Vital Signs: Vital Signs - 24 hr 12/07/24 16:00 12/07/24 16:00 12/07/24 16:00 Temperature 98.1 F Pulse Rate 109 H 105 H Respiratory Rate 24 H Blood Pressure 125/71 Pulse Oximetry 92 94 Oxygen Delivery Nasal Cannula Oxygen Flow Rate 2 12/07/24 18:00 12/07/24 20:00 12/07/24 20:00 Temperature 99.7 F H Pulse Rate 108 H 108 H 108 H Respiratory Rate 20 Blood Pressure 143/69 H Pulse Oximetry 93 Oxygen Delivery Oxygen Flow Rate 12/07/24 21:43 12/07/24 22:00 12/07/24 23:25 Temperature Pulse Rate 108 H 111 H 113 H Respiratory Rate 20 18 Blood Pressure Pulse Oximetry 93 92 Oxygen Delivery Nasal Cannula Nasal Cannula Oxygen Flow Rate 2 2 12/07/24 23:36 12/08/24 00:00 12/08/24 02:00 Temperature 98.2 F Pulse Rate 113 H 106 H 105 H Respiratory Rate 18 Blood Pressure 141/79 H Pulse Oximetry 92 Oxygen Delivery Oxygen Flow Rate 12/08/24 04:00 12/08/24 04:00 12/08/24 04:00 Temperature 100.0 F H Pulse Rate 110 H 110 H 108 H Respiratory Rate 20 20 Blood Pressure 146/77 H Pulse Oximetry 92 92 Oxygen Delivery Nasal Cannula Oxygen Flow Rate 2 12/08/24 05:37 12/08/24 06:00 12/08/24 07:59 Temperature 98.2 F 98.9 F Pulse Rate 106 H 108 H 107 H Respiratory Rate 20 18 Blood Pressure 125/79 Pulse Oximetry 95 96 Oxygen Delivery Oxygen Flow Rate 12/08/24 08:00 12/08/24 08:00 12/08/24 08:30 Temperature Pulse Rate 101 H Respiratory Rate Blood Pressure Pulse Oximetry 96 Oxygen Delivery Nasal Cannula Nasal Cannula Oxygen Flow Rate 2 2 12/08/24 10:00 12/08/24 10:42 12/08/24 11:54 Temperature 97.7 F Pulse Rate 104 H 103 H Respiratory Rate 18 Blood Pressure 148/81 H Pulse Oximetry 95 97 Oxygen Delivery Nasal Cannula Oxygen Flow Rate 2 12/08/24 11:58 12/08/24 12:00 12/08/24 12:00 Temperature Pulse Rate 106 H Respiratory Rate Blood Pressure Pulse Oximetry 97 Oxygen Delivery Nasal Cannula Nasal Cannula Oxygen Flow Rate 2 2 Intake/Output Intake/Output: Intake & Output 12/05/24 12/06/24 12/07/24 12/08/24 23:59 23:59 23:59 23:59 Intake Total 3853.3 1120 2663.3 426.7 Output Total 805 1765 3340 880 Balance 3048.3 -645 -676.7 -453.3 Meds/Results Medications: Active Medications Generic Name Dose Route Start Last Admin Trade Name Freq PRN Reason Stop Dose Admin Enoxaparin Sodium 40 mg 12/07/24 09:00 12/07/24 10:01 Enoxaparin 40 Mg/0.4 Ml Syringe SUB-Q Not Given DAILY CEE Hydromorphone HCl 1 mg 12/06/24 17:15 12/08/24 11:58 Hydromorphone Hcl Inj (*Crx) 1 Mg/Ml Syr IV PUSH 1 mg Q2H PRN Administration Breakthrough Pain Rated 7-10 or NPO Hydromorphone HCl 0.5 mg 12/06/24 17:15 12/07/24 18:13 Hydromorphone Hcl Inj (*Crx) 1 Mg/Ml Syr IV PUSH 0.5 mg Q2H PRN Administration Breakthrough Pain Rated 4-6 or NPO Piperacillin Sod/Tazobactam 50 mls @ 100 mls/hr 12/04/24 18:00 12/08/24 12:30 Sod 2.25 gm/ Sodium Chloride IVPB Infused Q6H CEE Infusion Dextrose 1,000 mls @ 50 mls/hr 12/06/24 17:15 Dextrose 10% IV CONT .Q20H PRN if PN is interrupted Fat Emulsion Intravenous 250 mls @ 20.833 mls/hr 12/06/24 18:00 12/08/24 06:16 Lipids 20% IVPB Infused Q24H CEE Infusion Multivitamins 1.25 ml/ 1,002.5 mls @ 50 mls/hr 12/08/24 10:00 12/08/24 11:58 Multivitamins 1.25 ml/ Amino IV CONT 50 mls/hr Acids/Electrolytes/Dextrose .Q20H3M CEE Infusion Protocol Naloxone HCl 0.1 mg 12/06/24 17:15 Naloxone Hcl 0.4 Mg/Ml Vial IV PUSH Q2M PRN Opiate Reversal Ondansetron HCl 4 mg 12/03/24 17:26 12/03/24 17:44 Ondansetron Inj 4 Mg/2 Ml Vial IV PUSH 4 mg Q4H PRN Administration Nausea And Vomiting Pantoprazole Sodium 40 mg 12/07/24 09:00 12/08/24 08:51 Pantoprazole Sodium Iv 40 Mg Vial IV PUSH 40 mg QAM CEE Administration Phenol 1 spray 12/07/24 10:05 Phenol/Sod Pheno [place] Salomon (*Bkc) MUCOUS MEM Q2H PRN Sore Throat Sodium Chloride 10 ml 12/07/24 14:00 12/08/24 13:14 Central Line Flush IV PUSH 10 ml Q8HR CEE Administration Sodium Chloride 10 ml 12/07/24 09:45 Central Line Flush IV PUSH PRN PRN with TPN bag changes Sodium Chloride 20 ml 12/07/24 09:45 12/08/24 04:08 Central Line Flush IV PUSH 20 ml PRN PRN Administration after blood draws Radiology Results: ITS Impressions Renal Ultrasound 12/04/24 21:30 Impression: 1: Unremarkable renal ultrasound. No stones, masses or hydronephrosis. Pulmonary Perfusion Imaging 12/05/24 18:55 IMPRESSION: 1: Normal perfusion scan. Probable shallow lung volumes. Recommend correlation with chest x-ray.. Abdomen/Pelvis CT 12/06/24 09:26 IMPRESSION: 1. 7.2 x 1.8 x 7.9 cm collection of fluid, gas, and oral contrast in right paracolic gutter, consistent with anastomotic leak.. 2. Small volume of ascites. 3. Dilated small bowel, consistent with adynamic ileus. 4. Small left pleural effusion. Chest X-Ray 12/07/24 10:22 IMPRESSION: 1. Bibasilar atelectasis and/or airspace disease. Labs Labs: Laboratory Results - last 24 hr 12/07/24 12/07/24 12/07/24 16:24 17:22 22:25 WBC RBC Hgb 7.8 L Hct 25.0 L MCV MCH MCHC RDW Plt Count MPV Immature Gran % (Auto) Neut % (Auto) Lymph % (Auto) [place] % (Auto) Eos % (Auto) Baso % (Auto) Lymph # (Auto) [place] # (Auto) Eos # (Auto) Baso # (Auto) Abs Immat Gran (auto) Absolute Neuts (auto) Absolute Nucleated RBC Total Counted Neutrophils % (Manual) Band Neutrophils % Lymphocytes % (Manual) Monocytes % (Manual) Myelocytes % Nucleated RBC % Abs Neuts (Manual) Abs Lymphs (Manual) Abs Monocytes (Manual) Nucleated RBCs Atypical Lymphocytes Smudge Cells Platelet Estimate Clumped Platelets Polychromasia Anisocytosis Ovalocytes Schistocytes Sodium Potassium Chloride Carbon Dioxide Anion Gap BUN Creatinine Estim Creat Clear Calc Estimated GFR Glucose POC Capillary Glucose 190 H Calcium Phosphorus Magnesium Total Bilirubin AST ALT Alkaline Phosphatase NT-Pro-B Natriuret Pep Total Protein Albumin Triglycerides 90 Procalcitonin 12/07/24 12/08/24 12/08/24 23:24 04:15 06:42 WBC 19.9 H RBC 3.01 L Hgb 8.0 L Hct 24.9 L MCV 82.7 MCH 26.6 MCHC 32.1 RDW 21.1 H Plt Count 254 MPV 11.5 H Immature Gran % (Auto) Not Reportable Neut % (Auto) Not Reportable Lymph % (Auto) Not Reportable [place] % (Auto) Not Reportable Eos % (Auto) Not Reportable Baso % (Auto) Not Reportable Lymph # (Auto) Not Reportable [place] # (Auto) Not Reportable Eos # (Auto) Not Reportable Baso # (Auto) Not Reportable Abs Immat Gran (auto) Not Reportable Absolute Neuts (auto) Not Reportable Absolute Nucleated RBC Not Reportable Total Counted 100 Neutrophils % (Manual) 86 H Band Neutrophils % 3 Lymphocytes % (Manual) 7.0 L Monocytes % (Manual) 2 L Myelocytes % 2 Nucleated RBC % Not Reportable Abs Neuts (Manual) 17.71 H Abs Lymphs (Manual) 1.39 Abs Monocytes (Manual) 0.39 Nucleated RBCs 4 Atypical Lymphocytes Present Smudge Cells Moderate Platelet Estimate Adequate Clumped Platelets Present Polychromasia Occasional Anisocytosis 1+ Ovalocytes 1+ Schistocytes None seen Sodium 136 L Potassium 4.2 Chloride 104 Carbon Dioxide 29 Anion Gap 3 L BUN 40 H D Creatinine 0.96 Estim Creat Clear Calc Not Reportable Estimated GFR 58 L Glucose 475 H POC Capillary Glucose 216 H 198 H Calcium 7.7 L Phosphorus 3.5 Magnesium 3.0 H Total Bilirubin 0.5 AST 122 H ALT 33 Alkaline Phosphatase 143 H NT-Pro-B Natriuret Pep 463 H Total Protein 5.1 L Albumin 2.5 L Triglycerides Procalcitonin 1.8 12/08/24 11:16 WBC RBC Hgb Hct MCV MCH MCHC RDW Plt Count MPV Immature Gran % (Auto) Neut % (Auto) Lymph % (Auto) [place] % (Auto) Eos % (Auto) Baso % (Auto) Lymph # (Auto) [place] # (Auto) Eos # (Auto) Baso # (Auto) Abs Immat Gran (auto) Absolute Neuts (auto) Absolute Nucleated RBC Total Counted Neutrophils % (Manual) Band Neutrophils % Lymphocytes % (Manual) Monocytes % (Manual) Myelocytes % Nucleated RBC % Abs Neuts (Manual) Abs Lymphs (Manual) Abs Monocytes (Manual) Nucleated RBCs Atypical Lymphocytes Smudge Cells Platelet Estimate Clumped Platelets Polychromasia Anisocytosis Ovalocytes Schistocytes Sodium Potassium Chloride Carbon Dioxide Anion Gap BUN Creatinine Estim Creat Clear Calc Estimated GFR Glucose POC Capillary Glucose 169 H Calcium Phosphorus Magnesium Total Bilirubin AST ALT Alkaline Phosphatase NT-Pro-B Natriuret Pep Total Protein Albumin Triglycerides Procalcitonin
[2024-12-08] MEDS: FAT EMULSIONS IV 20% 250 ML 20.83 ML IVPB (17:14)
--- NOTE | 2024-12-08 18:36 | P.PNIM_ITS ---
Progress Note: A&P Assessment and Plan (1) Acute kidney injury: Code(s): N17.9 - Acute kidney failure, unspecified Status: Acute Assessment and Plan: Creatinine 0.99 and BUN 29, GFR 56 upon admission on 12/03. Increased to 1.63, BUN 38, GFR 32. Initially presented with difficulty urinating, did undergo straight catheterization in the ED and now has Limon placed. Nephrology following, multifactorial etiology including contrast exposure, ARB use prior to admission, hypotension, urinary retention, possibly infection Improving, ultrasound completed, urine electrolytes demonstrate pre renal cause, CPK normal. Hold losartan. Continue TPN. (2) Urinary retention: Code(s): R33.9 - Retention of urine, unspecified Status: Acute Assessment and Plan: - reporting post-operative constipation, last BM was 4+ days prior to admission on 12/03, may be contributing to her retention - CT additionally showed 7 x 3 cm fluid collection in the pelvis situated between the uterus and the bladder with some mass effect on the bladder. General Surgery aware of issue, however it is in a location that is difficult to access and not a well organized collection, could also be contributing to retention. - Limon placed on 12/03, started on Flomax (3) History of partial colectomy: Code(s): Z90.49 - Acquired absence of other specified parts of digestive tract Status: Resolved Assessment and Plan: Underwent a hand assisted laparoscopic right colectomy, extensive adhesiolysis, mobilization of hepatic flexure by Dr. May on 11/27/24. Pathology showed adenocarcinoma and two tubular adenomas, with 4/13 lymph nodes positive. - presented 6 days postop with increased mid to right lower abdominal pain and urinary retention. - patient presents 6 days postop following AMBER right colectomy for right colon cancer. She has had increased mid to right lower abdominal pain over the past few days and also developed urinary retention. - exam findings and CT concerning for possible anastomotic leak - started on Zosyn on 12/03 CT abdomen/pelvis, 12/03 (7:31): 1. Small amount scattered free intraperitoneal gas and fluid and a few small collections of gas and fluid in the pelvis without well-defined peripheral enhancing wall to suggest organized abscess, likely related to recent right hemicolectomy and ileocolic anastomosis. 2. Persistent wall thickening along the sigmoid colon suggestive of scarring related to prior diverticulitis no significant surrounding inflammatory strand ing to elevate suspicion for acute colitis/diverticulitis. 3. Persistent intra and extra hepatic biliary ductal dilation and dilation of the main pancreatic duct which may relate to prior cholecystectomy. Correlate with liver function tests and lipase levels and if clinically indicated could consider MRCP for further evaluation. CT repeated later on 12/03 (15:36): 1. Postoperative ileus with no dilated bowel or transition point and with the majority contrast remaining within the stomach and only a small amount of contrast having extended to the mid to distal jejunum 5 1/2 hours post oral contrast administration. No contrast in the region of the ileocolic anastomosis which precludes assessment for anastomotic leak. 2. No significant change in a nonspecific small amount of scattered free intraperineal gas and fluid in the abdomen and pelvis which could be directly secondary to the recent surgery. 3. Mild diverticulosis along the sigmoid colon where there is chronic wall thickening which could be due to scarring related to chronic diverticulitis versus less likely acute colitis or diverticulitis. Repeat CT 12/06/2024 with 7.2 x 1.8 x 7.9 cm collection of fluid, gas and oral contrast in the right paracolic gutter consistent with anastomotic leak. Small volume of ascites. Dilated small bowel consistent with adynamic ileus and small left pleural effusion. On 12/06/2024 underwent exploratory laparotomy with ileocolic resection with [id number] ileocolic anastomosis, drainage of intra-abdominal abscess, placement of wound VAC measuring 20 cm x 3 cm. She is doing relatively well postop, bowel rest, TPN. Mobilize when okay with surgery. She has hypoxia, chest x-ray demonstrates atelectasis, she is not moving around much, encourage the patient to move a bit more and use the incentive spirometer. Bibasilar crackles. Will try Lasix 20 mg IV x1. Monitor urine output, monitor daily weights, leukocytosis persists, she is afebrile and does not have any complaints, she appears nontoxic well. Will obtain CT chest if leukocytosis persists. Blood culture still negative. She is still on Zosyn. Procalcitonin 1.8 which is largely decreased from prior value 12/04/2024 blood culture x2, no growth at 24 hours. Afebrile. Leukocytosis persistent, continue to monitor. Anemia likely due to DARRYL, infection, post hemorrhagic anemia. Continue to trend hemoglobin q.6 hours, the patient is amenable to transfusion with a goal of hemoglobin greater than 7. She denies any coronary artery disease. (4) Hyperlipidemia: Qualifiers: Hyperlipidemia type: unspecified Qualified Code(s): E78.5 - Hyperlipidemia, unspecified Code(s): E78.5 - Hyperlipidemia, unspecified Status: Chronic Assessment and Plan: Hold home medications while NPO. (5) Hypertension: Qualifiers: Hypertension type: primary hypertension Qualified Code(s): I10 - Essential (primary) hypertension Code(s): I10 - Essential (primary) hypertension Status: Chronic Assessment and Plan: Hold home medications for now, continue to monitor. At goal. (6) Tachycardia: Code(s): R00.0 - Tachycardia, unspecified Status: Acute Assessment and Plan: Improved. Plan Per surgery, bowel rest and TPN. Protonix 40 mg IV q.a.m. DVT Prophylaxis: SCDs only, Lovenox 40 mg subQ q.day restarted on 12/07/2024. TPN Lines/Tubes: peripheral IV Code Status: full code Subjective Date/time seen: 12/08/24 18:36 Interval history: No acute overnight events. Patient appears weak, does not report shortness of breath or chest pain. Reports mild abdominal discomfort. Denies bowel move Review of Systems Review of Systems: All systems reviewed & are unremarkable except as noted in HPI and below (Subjective) Exam Const: General: comfortable and no acute distress Other: A&O x3 HENMT: Mouth: Yes moist mucous membranes Eyes: Pupils: Equal, round and reactive pupils present Neck: Neck: supple Resp: Effort & Inspection: normal respiratory effort Auscultation: crackles Cardio: Rate: regular rate Rhythm: regular rhythm Heart sounds: no gallops GI: Inspection: non-distended GI Palp: Yes Soft to palpation and Yes Tenderness to palpation present (GI) Neuro: Motor exam (neuro): 5/5 motor strength present throughout Extrem: General: no edema Objective Data Vital Signs Vital Signs: Vital Signs - 24 hr 12/07/24 20:00 12/07/24 20:00 12/07/24 21:43 Temperature 99.7 F H Pulse Rate 108 H 108 H 108 H Respiratory Rate 20 20 Blood Pressure 143/69 H Pulse Oximetry 93 93 Oxygen Delivery Nasal Cannula Oxygen Flow Rate 2 12/07/24 22:00 12/07/24 23:25 12/07/24 23:36 Temperature 98.2 F Pulse Rate 111 H 113 H 113 H Respiratory Rate 18 18 Blood Pressure 141/79 H Pulse Oximetry 92 92 Oxygen Delivery Nasal Cannula Oxygen Flow Rate 2 12/08/24 00:00 12/08/24 02:00 12/08/24 04:00 Temperature 100.0 F H Pulse Rate 106 H 105 H 110 H Respiratory Rate 20 Blood Pressure 146/77 H Pulse Oximetry 92 Oxygen Delivery Oxygen Flow Rate 12/08/24 04:00 12/08/24 04:00 12/08/24 05:37 Temperature 98.2 F Pulse Rate 110 H 108 H 106 H Respiratory Rate 20 20 Blood Pressure Pulse Oximetry 92 95 Oxygen Delivery Nasal Cannula Oxygen Flow Rate 2 12/08/24 06:00 12/08/24 07:59 12/08/24 08:00 Temperature 98.9 F Pulse Rate 108 H 107 H Respiratory Rate 18 Blood Pressure 125/79 Pulse Oximetry 96 96 Oxygen Delivery Nasal Cannula Oxygen Flow Rate 2 12/08/24 08:00 12/08/24 08:30 12/08/24 10:00 Temperature Pulse Rate 101 H 104 H Respiratory Rate Blood Pressure Pulse Oximetry Oxygen Delivery Nasal Cannula Oxygen Flow Rate 2 12/08/24 10:42 12/08/24 11:54 12/08/24 11:58 Temperature 97.7 F Pulse Rate 103 H Respiratory Rate 18 Blood Pressure 148/81 H Pulse Oximetry 95 97 Oxygen Delivery Nasal Cannula Nasal Cannula Oxygen Flow Rate 2 2 12/08/24 12:00 12/08/24 12:00 12/08/24 14:00 Temperature Pulse Rate 106 H 100 Respiratory Rate Blood Pressure Pulse Oximetry 97 Oxygen Delivery Nasal Cannula Oxygen Flow Rate 2 12/08/24 16:00 12/08/24 16:00 12/08/24 16:00 Temperature 98.3 F Pulse Rate 99 102 H Respiratory Rate 20 Blood Pressure 143/75 H Pulse Oximetry 97 97 Oxygen Delivery Nasal Cannula Oxygen Flow Rate 2 12/08/24 18:00 Temperature Pulse Rate 100 Respiratory Rate Blood Pressure Pulse Oximetry Oxygen Delivery Oxygen Flow Rate Intake/Output Intake/Output: Intake & Output 12/05/24 12/06/24 12/07/24 12/08/24 23:59 23:59 23:59 23:59 Intake Total 3853.3 1120 2663.3 426.7 Output Total 805 1765 3340 2280 Balance 3048.3 -645 -676.7 -1853.3 Meds/Results Medications: Active Medications Generic Name Dose Route Start Last Admin Trade Name Freq PRN Reason Stop Dose Admin Enoxaparin Sodium 40 mg 12/07/24 09:00 12/07/24 10:01 Enoxaparin 40 Mg/0.4 Ml Syringe SUB-Q Not Given DAILY CEE Hydromorphone HCl 1 mg 12/06/24 17:15 12/08/24 17:15 Hydromorphone Hcl Inj (*Crx) 1 Mg/Ml Syr IV PUSH 1 mg Q2H PRN Administration Breakthrough Pain Rated 7-10 or NPO Hydromorphone HCl 0.5 mg 12/06/24 17:15 12/07/24 18:13 Hydromorphone Hcl Inj (*Crx) 1 Mg/Ml Syr IV PUSH 0.5 mg Q2H PRN Administration Breakthrough Pain Rated 4-6 or NPO Piperacillin Sod/Tazobactam 50 mls @ 100 mls/hr 12/04/24 18:00 12/08/24 17:15 Sod 2.25 gm/ Sodium Chloride IVPB 100 mls/hr Q6H CEE Administration Dextrose 1,000 mls @ 50 mls/hr 12/06/24 17:15 Dextrose 10% IV CONT .Q20H PRN if PN is interrupted Fat Emulsion Intravenous 250 mls @ 20.833 mls/hr 12/06/24 18:00 12/08/24 17:14 Lipids 20% IVPB 20.83 mls/hr Q24H CEE Administration Multivitamins 1.25 ml/ 1,002.5 mls @ 50 mls/hr 12/08/24 10:00 12/08/24 11:58 Multivitamins 1.25 ml/ Amino IV CONT 50 mls/hr Acids/Electrolytes/Dextrose .Q20H3M CEE Infusion Protocol Naloxone HCl 0.1 mg 12/06/24 17:15 Naloxone Hcl 0.4 Mg/Ml Vial IV PUSH Q2M PRN Opiate Reversal Ondansetron HCl 4 mg 12/03/24 17:26 12/03/24 17:44 Ondansetron Inj 4 Mg/2 Ml Vial IV PUSH 4 mg Q4H PRN Administration Nausea And Vomiting Pantoprazole Sodium 40 mg 12/07/24 09:00 12/08/24 08:51 Pantoprazole Sodium Iv 40 Mg Vial IV PUSH 40 mg QAM CEE Administration Phenol 1 spray 12/07/24 10:05 Phenol/Sod Pheno [place] Salomon (*Bkc) MUCOUS MEM Q2H PRN Sore Throat Sodium Chloride 10 ml 12/07/24 14:00 12/08/24 13:14 Central Line Flush IV PUSH 10 ml Q8HR CEE Administration Sodium Chloride 10 ml 12/07/24 09:45 Central Line Flush IV PUSH PRN PRN with TPN bag changes Sodium Chloride 20 ml 12/07/24 09:45 12/08/24 04:08 Central Line Flush IV PUSH 20 ml PRN PRN Administration after blood draws Radiology Results: ITS Impressions Renal Ultrasound 12/04/24 21:30 Impression: 1: Unremarkable renal ultrasound. No stones, masses or hydronephrosis. Pulmonary Perfusion Imaging 12/05/24 18:55 IMPRESSION: 1: Normal perfusion scan. Probable shallow lung volumes. Recommend correlation with chest x-ray.. Abdomen/Pelvis CT 12/06/24 09:26 IMPRESSION: 1. 7.2 x 1.8 x 7.9 cm collection of fluid, gas, and oral contrast in right paracolic gutter, consistent with anastomotic leak.. 2. Small volume of ascites. 3. Dilated small bowel, consistent with adynamic ileus. 4. Small left pleural effusion. Chest X-Ray 12/07/24 10:22 IMPRESSION: 1. Bibasilar atelectasis and/or airspace disease. Labs Labs: Laboratory Results - last 24 hr 12/07/24 12/07/24 12/08/24 22:25 23:24 04:15 WBC 19.9 H RBC 3.01 L Hgb 7.8 L 8.0 L Hct 25.0 L 24.9 L MCV 82.7 MCH 26.6 MCHC 32.1 RDW 21.1 H Plt Count 254 MPV 11.5 H Immature Gran % (Auto) Not Reportable Neut % (Auto) Not Reportable Lymph % (Auto) Not Reportable [place] % (Auto) Not Reportable Eos % (Auto) Not Reportable Baso % (Auto) Not Reportable Lymph # (Auto) Not Reportable [place] # (Auto) Not Reportable Eos # (Auto) Not Reportable Baso # (Auto) Not Reportable Abs Immat Gran (auto) Not Reportable Absolute Neuts (auto) Not Reportable Absolute Nucleated RBC Not Reportable Total Counted 100 Neutrophils % (Manual) 86 H Band Neutrophils % 3 Lymphocytes % (Manual) 7.0 L Monocytes % (Manual) 2 L Myelocytes % 2 Nucleated RBC % Not Reportable Abs Neuts (Manual) 17.71 H Abs Lymphs (Manual) 1.39 Abs Monocytes (Manual) 0.39 Nucleated RBCs 4 Atypical Lymphocytes Present Smudge Cells Moderate Platelet Estimate Adequate Clumped Platelets Present Polychromasia Occasional Anisocytosis 1+ Ovalocytes 1+ Schistocytes None seen Sodium 136 L Potassium 4.2 Chloride 104 Carbon Dioxide 29 Anion Gap 3 L BUN 40 H D Creatinine 0.96 Estim Creat Clear Calc Not Reportable Estimated GFR 58 L Glucose 475 H POC Capillary Glucose 216 H Calcium 7.7 L Phosphorus 3.5 Magnesium 3.0 H Total Bilirubin 0.5 AST 122 H ALT 33 Alkaline Phosphatase 143 H NT-Pro-B Natriuret Pep 463 H Total Protein 5.1 L Albumin 2.5 L Procalcitonin 1.8 12/08/24 12/08/24 12/08/24 06:42 11:16 18:07 WBC RBC Hgb Hct MCV MCH MCHC RDW Plt Count MPV Immature Gran % (Auto) Neut % (Auto) Lymph % (Auto) [place] % (Auto) Eos % (Auto) Baso % (Auto) Lymph # (Auto) [place] # (Auto) Eos # (Auto) Baso # (Auto) Abs Immat Gran (auto) Absolute Neuts (auto) Absolute Nucleated RBC Total Counted Neutrophils % (Manual) Band Neutrophils % Lymphocytes % (Manual) Monocytes % (Manual) Myelocytes % Nucleated RBC % Abs Neuts (Manual) Abs Lymphs (Manual) Abs Monocytes (Manual) Nucleated RBCs Atypical Lymphocytes Smudge Cells Platelet Estimate Clumped Platelets Polychromasia Anisocytosis Ovalocytes Schistocytes Sodium Potassium Chloride Carbon Dioxide Anion Gap BUN Creatinine Estim Creat Clear Calc Estimated GFR Glucose POC Capillary Glucose 198 H 169 H 167 H Calcium Phosphorus Magnesium Total Bilirubin AST ALT Alkaline Phosphatase NT-Pro-B Natriuret Pep Total Protein Albumin Procalcitonin
[2024-12-08] MEDS: FUROSEMIDE INJ 40 MG/4 ML VIAL 20 MG IV PUSH (19:15)
[2024-12-09] VITALS (12 sets, daily range): BP systolic 122–149; BP diastolic 65–81; PULSE 101–115; RESP 18–20; TEMP 36.5–37.5; O2SAT 93–98; BMI 30.7
[2024-12-09] MEDS: HYDROmorphone HCL INJ (*CRX) 1 MG/ML SYR IV PUSH ×5 (00:11→18:19)
[2024-12-09] MEDS: PIPERACILLIN/TAZOBACTAM SOD 2.25 GM in SODIUM CHLORIDE 0.9% IV 50 ML 100 ML IVPB ×3 (05:05→17:14)
[2024-12-09] MEDS: CENTRAL LINE FLUSH 10 ML IV PUSH ×2 (05:06→14:32)
[2024-12-09] MEDS: HYDROmorphone HCL INJ (*CRX) 1 MG/ML SYR 0.5 MG IV PUSH (05:08)
[2024-12-09] MEDS: AMINO ACIDS 5%/D15W/E-LYTES/CA 1,000 ML with MULTIVITAMINS-12 INJ VIAL 1 1.25 ML, MULTI... 50 ML IV CONT (05:15)
[2024-12-09] MEDS: ONDANSETRON INJ 4 MG/2 ML VIAL IV PUSH (05:23)
[2024-12-09 05:40] LABS: Hematocrit 25.4 % (37.0-47.0); Hemoglobin 7.5 g/dL (12.0-15.0); Mean Corpuscular HGB Conc 29.5 g/dl (32-36); Mean Corpuscular Hemoglobin 24.9 pg (26-34); Mean Corpuscular Volume 84.4 fl (80-100); Platelet Count Result 249 k/mm3 (150-375); Red Blood Count 3.01 M/mm3 (4.2-5.4); White Blood Count 19.0 K/mm3 (4.5-10.0)
[2024-12-09 06:03] LABS: INR 1.2; Prothrombin Time 15.0 Seconds (11.1-14.7)
[2024-12-09 06:04] LABS: Partial Thromboplastin Time 29.6 Seconds (22.3-36.8)
[2024-12-09 06:10] LABS: Anisocytosis 2+; Band Neutrophils Percent 7 % (0-6); Lymphocytes Absolute Manual 0.76 K/mm3 (1.1-4.5); Lymphocytes Percent Manual 4 % (18-44); Monocytes Absolute Manual 0.57 K/mm3 (0.1-0.90); Monocytes Percent Manual 3 % (3-9); Neutrophils Absolute Manual 17.67 K/mm3 (1.3-6.7); Neutrophils Percent Manual 86 % (46-73); Total Cells Counted 100
[2024-12-09 06:11] LABS: Polychromasia 1+; Schistocytes None Seen
[2024-12-09 06:13] LABS: Alanine Aminotransferase 33 U/L (6-35); Albumin Level 2.3 g/dL (3.5-5.1); Alkaline Phosphatase 213 U/L (38-126); Aspartate Amino Transferase 92 U/L (14-36); Bilirubin,Total 0.5 mg/dL (0.2-1.3); Blood Urea Nitrogen 28 mg/dL (7-17); Calcium 7.9 mg/dL (8.4-10.2); Carbon Dioxide 36 mmol/L (22-30); Estimated Glomerular Filt Rate > 60; Glucose 179 mg/dL (65-110); Magnesium 2.7 mg/dL (1.6-2.3); Potassium 3.1 mmol/L (3.4-5.0); Sodium 143 mmol/L (137-145); Total Protein 5.2 g/dL (6.3-8.2)
[2024-12-09 06:16] LABS: Anion Gap 0 mmol/L (4-12); Chloride 107 mmol/L (98-107); Transferrin 130 mg/dL (206-381)
[2024-12-09 06:27] LABS: Procalcitonin 1.0 ng/mL
[2024-12-09] MEDS: PANTOPRAZOLE SODIUM IV 40 MG VIAL IV PUSH (08:07)
[2024-12-09] MEDS: ENOXAPARIN 40 MG/0.4 ML SYRINGE SUB-Q (09:20)
--- NOTE | 2024-12-09 10:27 | P.PNGS_ITS ---
Progress Note: A&P Assessment and Plan (1) Ileocolic anastomotic leak: Code(s): K91.89 - Other postprocedural complications and disorders of digestive system Status: Acute Assessment and Plan: * Continue Zosyn, bowel rest, NG decompression. TPN continued, dietitian evaluating today for recommendations. * Await return of bowel function * Continue PT/OT, up to chair * Patient being diuresed again today. Potassium being replaced. * Will change the wound vac later today, possibly eventually plan for delayed primary closure next week. (2) Intra-abdominal abscess post-procedure: Code(s): T81.43XA - Infection following a procedure, organ and space surgical site, initial encounter; K65.1 - Peritoneal abscess Status: Acute Assessment and Plan: * Serosanguinous output in JUHI drain (3) Acute blood loss anemia: Code(s): D62 - Acute posthemorrhagic anemia Status: Acute Assessment and Plan: * Hgb remains stable. Lovenox was resumed this am (4) Adenocarcinoma of colon: Code(s): C18.9 - Malignant neoplasm of colon, unspecified Status: Acute Subjective Subjective Date/Time Seen: 12/09/24 09:27 Patient reports: no new complaints, flatus, no bowel movement and afebrile Interval history: Patient seen in the IMU. She is currently on TPN with an NG tube. She had 650 cc out of her NG tube in the last 24 hours. She was diuresed with IV Lasix yesterday and had almost 3 L of urine output. She reportedly was able to get up to the chair for a period of time yesterday and is planning to do that again today after pain medication. She was able to sleep last night and did not have much pain. Wound care nurses planning to do a wound VAC change later today. Review of Systems Review of Systems: All systems reviewed & are unremarkable except as noted in HPI and below Exam Const: General: comfortable and no acute distress GI: Inspection: non-distended and incision (Wound VAC dressing dry and intact) GI Palp: Yes Soft to palpation, Yes Tenderness to palpation present (GI) and No Guarding due to palpation present (GI) Auscultation: Hypoactive bowel sounds present (Very hypoactive) Other: JUHI drain with scant serosanguineous drainage Extrem: General: edema (Upper and lower extremity edema, 2-3+) bilateral Objective Data Vital Signs Vital Signs: Vital Signs - 24 hr 12/08/24 10:42 12/08/24 11:54 12/08/24 11:58 Temperature 97.7 F Pulse Rate 103 H Respiratory Rate 18 Blood Pressure 148/81 H Pulse Oximetry 95 97 Oxygen Delivery Nasal Cannula Nasal Cannula Oxygen Flow Rate 2 2 12/08/24 12:00 12/08/24 12:00 12/08/24 14:00 Temperature Pulse Rate 106 H 100 Respiratory Rate Blood Pressure Pulse Oximetry 97 Oxygen Delivery Nasal Cannula Oxygen Flow Rate 2 12/08/24 16:00 12/08/24 16:00 12/08/24 16:00 Temperature 98.3 F Pulse Rate 99 102 H Respiratory Rate 20 Blood Pressure 143/75 H Pulse Oximetry 97 97 Oxygen Delivery Nasal Cannula Oxygen Flow Rate 2 12/08/24 18:00 12/08/24 20:00 12/08/24 20:00 Temperature 98.4 F Pulse Rate 100 105 H 106 H Respiratory Rate 16 Blood Pressure 145/79 H Pulse Oximetry 96 Oxygen Delivery Oxygen Flow Rate 12/08/24 20:00 12/08/24 22:00 12/09/24 00:00 Temperature Pulse Rate 104 H 106 H Respiratory Rate Blood Pressure Pulse Oximetry 96 Oxygen Delivery Nasal Cannula Oxygen Flow Rate 2 12/09/24 00:00 12/09/24 00:10 12/09/24 02:00 Temperature 98.2 F Pulse Rate 107 H 101 H Respiratory Rate 20 Blood Pressure 149/77 H Pulse Oximetry 98 98 Oxygen Delivery Nasal Cannula Oxygen Flow Rate 1 12/09/24 04:00 12/09/24 04:00 12/09/24 05:00 Temperature 98.4 F Pulse Rate 106 H 107 H Respiratory Rate 20 Blood Pressure 146/81 H Pulse Oximetry 98 96 Oxygen Delivery Nasal Cannula Oxygen Flow Rate 1 12/09/24 06:00 12/09/24 08:00 Temperature 98.2 F Pulse Rate 102 H 103 H Respiratory Rate 18 Blood Pressure 134/76 Pulse Oximetry 95 Oxygen Delivery Oxygen Flow Rate Intake/Output Intake/Output: Intake & Output 12/06/24 12/07/24 12/08/24 12/09/24 23:59 23:59 23:59 23:59 Intake Total 1120 2663.3 1430.0 1224.2 Output Total 1765 3340 2280 2085 Balance -645 -676.7 -850.0 -855.8 Meds/Results Medications: Active Medications Generic Name Dose Route Start Last Admin Trade Name Freq PRN Reason Stop Dose Admin Enoxaparin Sodium 40 mg 12/07/24 09:00 12/09/24 09:20 Enoxaparin 40 Mg/0.4 Ml Syringe SUB-Q 40 mg DAILY CEE Administration Hydromorphone HCl 1 mg 12/06/24 17:15 12/09/24 08:08 Hydromorphone Hcl Inj (*Crx) 1 Mg/Ml Syr IV PUSH 1 mg Q2H PRN Administration Breakthrough Pain Rated 7-10 or NPO Hydromorphone HCl 0.5 mg 12/06/24 17:15 12/09/24 05:08 Hydromorphone Hcl Inj (*Crx) 1 Mg/Ml Syr IV PUSH 0.5 mg Q2H PRN Administration Breakthrough Pain Rated 4-6 or NPO Piperacillin Sod/Tazobactam 50 mls @ 100 mls/hr 12/04/24 18:00 12/09/24 05:35 Sod 2.25 gm/ Sodium Chloride IVPB Infused Q6H CEE Infusion Dextrose 1,000 mls @ 50 mls/hr 12/06/24 17:15 Dextrose 10% IV CONT .Q20H PRN if PN is interrupted Fat Emulsion Intravenous 250 mls @ 20.833 mls/hr 12/06/24 18:00 12/09/24 05:15 Lipids 20% IVPB Infused Q24H CEE Infusion Multivitamins 1.25 ml/ 1,002.5 mls @ 50 mls/hr 12/08/24 10:00 12/09/24 05:15 Multivitamins 1.25 ml/ Amino IV CONT 50 mls/hr Acids/Electrolytes/Dextrose .Q20H3M CEE Administration Protocol Potassium Chloride 40 meq/ 520 mls @ 130 mls/hr 12/09/24 10:19 Sodium Chloride IVPB 12/09/24 14:18 ONCE ONE Naloxone HCl 0.1 mg 12/06/24 17:15 Naloxone Hcl 0.4 Mg/Ml Vial IV PUSH Q2M PRN Opiate Reversal Ondansetron HCl 4 mg 12/03/24 17:26 12/09/24 05:23 Ondansetron Inj 4 Mg/2 Ml Vial IV PUSH 4 mg Q4H PRN Administration Nausea And Vomiting Pantoprazole Sodium 40 mg 12/07/24 09:00 12/09/24 08:07 Pantoprazole Sodium Iv 40 Mg Vial IV PUSH 40 mg QAM CEE Administration Phenol 1 spray 12/07/24 10:05 Phenol/Sod Pheno [place] Salomon (*Bkc) MUCOUS MEM Q2H PRN Sore Throat Sodium Chloride 10 ml 12/07/24 14:00 12/09/24 05:06 Central Line Flush IV PUSH 10 ml Q8HR CEE Administration Sodium Chloride 10 ml 12/07/24 09:45 Central Line Flush IV PUSH PRN PRN with TPN bag changes Sodium Chloride 20 ml 12/07/24 09:45 12/08/24 04:08 Central Line Flush IV PUSH 20 ml PRN PRN Administration after blood draws Radiology Results: ITS Impressions Renal Ultrasound 12/04/24 21:30 Impression: 1: Unremarkable renal ultrasound. No stones, masses or hydronephrosis. Pulmonary Perfusion Imaging 12/05/24 18:55 IMPRESSION: 1: Normal perfusion scan. Probable shallow lung volumes. Recommend correlation with chest x-ray.. Abdomen/Pelvis CT 12/06/24 09:26 IMPRESSION: 1. 7.2 x 1.8 x 7.9 cm collection of fluid, gas, and oral contrast in right paracolic gutter, consistent with anastomotic leak.. 2. Small volume of ascites. 3. Dilated small bowel, consistent with adynamic ileus. 4. Small left pleural effusion. Chest X-Ray 12/07/24 10:22 IMPRESSION: 1. Bibasilar atelectasis and/or airspace disease. Labs Labs: Laboratory Results - last 24 hr 12/08/24 12/08/24 12/09/24 11:16 18:07 00:10 WBC RBC Hgb Hct MCV MCH MCHC RDW Plt Count MPV Immature Gran % (Auto) Neut % (Auto) Lymph % (Auto) [place] % (Auto) Eos % (Auto) Baso % (Auto) Lymph # (Auto) [place] # (Auto) Eos # (Auto) Baso # (Auto) Abs Immat Gran (auto) Absolute Neuts (auto) Absolute Nucleated RBC Total Counted Neutrophils % (Manual) Band Neutrophils % Lymphocytes % (Manual) Monocytes % (Manual) Nucleated RBC % Abs Neuts (Manual) Abs Lymphs (Manual) Abs Monocytes (Manual) Nucleated RBCs Platelet Estimate Polychromasia Anisocytosis Schistocytes PT INR APTT Sodium Potassium Chloride Carbon Dioxide Anion Gap BUN Creatinine Estim Creat Clear Calc Estimated GFR Glucose POC Capillary Glucose 169 H 167 H 186 H Calcium Phosphorus Magnesium Transferrin Total Bilirubin AST ALT Alkaline Phosphatase Total Protein Albumin Procalcitonin 12/09/24 12/09/24 05:06 05:07 WBC 19.0 H RBC 3.01 L Hgb 7.5 L Hct 25.4 L MCV 84.4 MCH 24.9 L D MCHC 29.5 L RDW 21.1 H Plt Count 249 MPV 11.8 H Immature Gran % (Auto) Not Reportable Neut % (Auto) Not Reportable Lymph % (Auto) Not Reportable [place] % (Auto) Not Reportable Eos % (Auto) Not Reportable Baso % (Auto) Not Reportable Lymph # (Auto) Not Reportable [place] # (Auto) Not Reportable Eos # (Auto) Not Reportable Baso # (Auto) Not Reportable Abs Immat Gran (auto) Not Reportable Absolute Neuts (auto) Not Reportable Absolute Nucleated RBC Not Reportable Total Counted 100 Neutrophils % (Manual) 86 H Band Neutrophils % 7 H Lymphocytes % (Manual) 4 L Monocytes % (Manual) 3 Nucleated RBC % Not Reportable Abs Neuts (Manual) 17.67 H Abs Lymphs (Manual) 0.76 L Abs Monocytes (Manual) 0.57 Nucleated RBCs 1 Platelet Estimate Adequate Polychromasia 1+ Anisocytosis 2+ Schistocytes None seen PT 15.0 H INR 1.2 APTT 29.6 Sodium 143 Potassium 3.1 L Chloride 107 Carbon Dioxide 36 H Anion Gap 0 L BUN 28 H D Creatinine 0.79 Estim Creat Clear Calc Not Reportable Estimated GFR > 60 Glucose 179 H POC Capillary Glucose Calcium 7.9 L Phosphorus 2.2 L Magnesium 2.7 H Transferrin 130 L Total Bilirubin 0.5 AST 92 H ALT 33 Alkaline Phosphatase 213 H Total Protein 5.2 L Albumin 2.3 L Procalcitonin 1.0
[2024-12-09] MEDS: POTASSIUM CHLORIDE INJ 40 MEQ in SODIUM CHLORIDE 0.9% IV 500 ML 130 MEQ IVPB (11:06)
[2024-12-09] MEDS: FUROSEMIDE INJ 40 MG/4 ML VIAL IV PUSH (14:32)
--- NOTE | 2024-12-09 15:05 | PC.NURSE ---
This patient, Rosanna Johns, was received from IMU on 12/09/24 at 1505. Patient/family oriented to unit policies and routines
--- NOTE | 2024-12-09 15:14 | PC.NURSE ---
pt moved to room 245 via bed accompanied by staff-belongings with pt including eyeglasses and phone- report was given to [facility] [address]
--- NOTE | 2024-12-09 15:23 | PC.NURSE ---
daughter Katerin notified of transfer
[2024-12-09 16:50] LABS: Triglycerides 186 mg/dL (<150)
[2024-12-09] MEDS: FAT EMULSIONS IV 20% 250 ML 20.83 ML IVPB (17:14)
--- NOTE | 2024-12-09 17:18 | PM.IMPN ---
Progress Note: A&P Assessment and Plan (1) Acute kidney injury: Code(s): N17.9 - Acute kidney failure, unspecified Status: Acute Assessment and Plan: Creatinine 0.99 and BUN 29, GFR 56 upon admission on 12/03. Increased to 1.63, BUN 38, GFR 32. Initially presented with difficulty urinating, did undergo straight catheterization in the ED and now has Limon placed. Nephrology following, multifactorial etiology including contrast exposure, ARB use prior to admission, hypotension, urinary retention, possibly infection Improving, ultrasound completed, urine electrolytes demonstrate pre renal cause, CPK normal. Hold losartan. Continue TPN. Limon remains, to remove after surgical issues are resolved. (2) Urinary retention: Code(s): R33.9 - Retention of urine, unspecified Status: Acute Assessment and Plan: - reporting post-operative constipation, last BM was 4+ days prior to admission on 12/03, may be contributing to her retention - CT additionally showed 7 x 3 cm fluid collection in the pelvis situated between the uterus and the bladder with some mass effect on the bladder. General Surgery aware of issue, however it is in a location that is difficult to access and not a well organized collection, could also be contributing to retention. - Limon placed on 12/03, started on Flomax (3) History of partial colectomy: Code(s): Z90.49 - Acquired absence of other specified parts of digestive tract Status: Resolved Assessment and Plan: Underwent a hand assisted laparoscopic right colectomy, extensive adhesiolysis, mobilization of hepatic flexure by Dr. May on 11/27/24. Pathology showed adenocarcinoma and two tubular adenomas, with 4/13 lymph nodes positive. - presented 6 days postop with increased mid to right lower abdominal pain and urinary retention. - patient presents 6 days postop following AMBER right colectomy for right colon cancer. She has had increased mid to right lower abdominal pain over the past few days and also developed urinary retention. - exam findings and CT concerning for possible anastomotic leak - started on Zosyn on 12/03 CT abdomen/pelvis, 12/03 (7:31): 1. Small amount scattered free intraperitoneal gas and fluid and a few small collections of gas and fluid in the pelvis without well-defined peripheral enhancing wall to suggest organized abscess, likely related to recent right hemicolectomy and ileocolic anastomosis. 2. Persistent wall thickening along the sigmoid colon suggestive of scarring related to prior diverticulitis no significant surrounding inflammatory stranding to elevate suspicion for acute colitis/diverticulitis. 3. Persistent intra and extra hepatic biliary ductal dilation and dilation of the main pancreatic duct which may relate to prior cholecystectomy. Correlate with liver function tests and lipase levels and if clinically indicated could consider MRCP for further evaluation. CT repeated later on 12/03 (15:36): 1. Postoperative ileus with no dilated bowel or transition point and with the majority contrast remaining within the stomach and only a small amount of contrast having extended to the mid to distal jejunum 5 1/2 hours post oral contrast administration. No contrast in the region of the ileocolic anastomosis which precludes assessment for anastomotic leak. 2. No significant change in a nonspecific small amount of scattered free intraperineal gas and fluid in the abdomen and pelvis which could be directly secondary to the recent surgery. 3. Mild diverticulosis along the sigmoid colon where there is chronic wall thickening which could be due to scarring related to chronic diverticulitis versus less likely acute colitis or diverticulitis. Repeat CT 12/06/2024 with 7.2 x 1.8 x 7.9 cm collection of fluid, gas and oral contrast in the right paracolic gutter consistent with anastomotic leak. Small volume of ascites. Dilated small bowel consistent with adynamic ileus and small left pleural effusion. On 12/06/2024 underwent exploratory laparotomy with ileocolic resection with [id number] ileocolic anastomosis, drainage of intra-abdominal abscess, placement of wound VAC measuring 20 cm x 3 cm. She is doing relatively well postop, bowel rest, TPN. Mobilize when okay with surgery. She has hypoxia, chest x-ray demonstrates atelectasis, she is not moving around much, encourage the patient to move a bit more and use the incentive spirometer. Bibasilar crackles. Will try Lasix 20 mg IV x1. Monitor urine output, monitor daily weights, leukocytosis persists, she is afebrile and does not have any complaints, she appears nontoxic well. Will obtain CT chest if leukocytosis persists. Blood culture still negative. She is still on Zosyn. Procalcitonin 1.8 which is largely decreased from prior value 12/04/2024 blood culture x2, no growth at 24 hours. Afebrile. Leukocytosis persistent, continue to monitor. Anemia likely due to DARRYL, infection, post hemorrhagic anemia. Continue to trend hemoglobin q.6 hours, the patient is amenable to transfusion with a goal of hemoglobin greater than 7. She denies any coronary artery disease. 12/09/2024: Leukocytosis has peaked. She has significant anasarca give Lasix 40 mg IV x1. Continue trending I/O. Currently on 1 L nasal cannula, denying any shortness of breath. Wean as tolerated. If blood pressure cannot tolerate, can try albumin as she has hypoalbuminemia. (4) Hyperlipidemia: Qualifiers: Hyperlipidemia type: unspecified Qualified Code(s): E78.5 - Hyperlipidemia, unspecified Code(s): E78.5 - Hyperlipidemia, unspecified Status: Chronic Assessment and Plan: Hold home medications while NPO. (5) Hypertension: Qualifiers: Hypertension type: primary hypertension Qualified Code(s): I10 - Essential (primary) hypertension Code(s): I10 - Essential (primary) hypertension Status: Chronic Assessment and Plan: Hold home medications for now, continue to monitor. At goal. (6) Tachycardia: Code(s): R00.0 - Tachycardia, unspecified Status: Acute Assessment and Plan: Improved. Plan Per surgery, bowel rest and TPN. Protonix 40 mg IV q.a.m. DVT Prophylaxis: SCDs only, Lovenox 40 mg subQ q.day restarted on 12/07/2024. TPN Code Status: full code Subjective Date/time seen: 12/09/24 17:18 Interval history: No major acute overnight events. Patient is in good spirits, denies shortness of breath. Reports occasional cough which is dry. Denies abdominal pain. Reports she is passing flatness. Review of Systems Review of Systems: All systems reviewed & are unremarkable except as noted in HPI and below (. Subjective) Exam Const: General: comfortable and no acute distress HENMT: Mouth: Yes moist mucous membranes Eyes: Pupils: Equal, round and reactive pupils present Neck: Neck: supple Resp: Effort & Inspection: normal respiratory effort Other: Scant crackles bibasilar Cardio: Rate: regular rate Rhythm: regular rhythm Heart sounds: no murmurs GI: GI Palp: Yes Soft to palpation and No Tenderness to palpation present (GI) Neuro: Motor exam (neuro): 5/5 motor strength present throughout Extrem: Other: 2+ pitting edema bilateral lower extremities. Trace pitting edema bilateral upper extremities Objective Data Vital Signs Vital Signs: Vital Signs - 24 hr 12/08/24 18:00 12/08/24 20:00 12/08/24 20:00 Temperature 98.4 F Pulse Rate 100 105 H 106 H Respiratory Rate 16 Blood Pressure 145/79 H Pulse Oximetry 96 Oxygen Delivery Oxygen Flow Rate 12/08/24 20:00 12/08/24 22:00 12/09/24 00:00 Temperature Pulse Rate 104 H 106 H Respiratory Rate Blood Pressure Pulse Oximetry 96 Oxygen Delivery Nasal Cannula Oxygen Flow Rate 2 12/09/24 00:00 12/09/24 00:10 12/09/24 02:00 Temperature 98.2 F Pulse Rate 107 H 101 H Respiratory Rate 20 Blood Pressure 149/77 H Pulse Oximetry 98 98 Oxygen Delivery Nasal Cannula Oxygen Flow Rate 1 12/09/24 04:00 12/09/24 04:00 12/09/24 05:00 Temperature 98.4 F Pulse Rate 106 H 107 H Respiratory Rate 20 Blood Pressure 146/81 H Pulse Oximetry 98 96 Oxygen Delivery Nasal Cannula Oxygen Flow Rate 1 12/09/24 06:00 12/09/24 08:00 12/09/24 08:20 Temperature 98.2 F Pulse Rate 102 H 103 H 106 H Respiratory Rate 18 Blood Pressure 134/76 Pulse Oximetry 95 Oxygen Delivery Oxygen Flow Rate 12/09/24 11:04 12/09/24 11:45 12/09/24 16:00 Temperature 97.7 F 98.5 F Pulse Rate 109 H 113 H 109 H Respiratory Rate 18 18 Blood Pressure 138/69 122/65 Pulse Oximetry 96 93 Oxygen Delivery Oxygen Flow Rate Intake/Output Intake/Output: Intake & Output 12/06/24 12/07/24 12/08/24 12/09/24 23:59 23:59 23:59 23:59 Intake Total 1120 2663.3 1430.0 1794.2 Output Total 1765 3340 2280 4560 [facility] -645 -676.7 -850.0 -2765.8 Meds/Results Medications: Active Medications Generic Name Dose Route Start Last Admin Trade Name Freq PRN Reason Stop Dose Admin Enoxaparin Sodium 40 mg 12/07/24 09:00 12/09/24 09:20 Enoxaparin 40 Mg/0.4 Ml Syringe SUB-Q 40 mg DAILY CEE Administration Hydromorphone HCl 1 mg 12/06/24 17:15 12/09/24 14:33 Hydromorphone Hcl Inj (*Crx) 1 Mg/Ml Syr IV PUSH 1 mg Q2H PRN Administration Breakthrough Pain Rated 7-10 or NPO Hydromorphone HCl 0.5 mg 12/06/24 17:15 12/09/24 05:08 Hydromorphone Hcl Inj (*Crx) 1 Mg/Ml Syr IV PUSH 0.5 mg Q2H PRN Administration Breakthrough Pain Rated 4-6 or NPO Piperacillin Sod/Tazobactam 50 mls @ 100 mls/hr 12/04/24 18:00 12/09/24 13:00 Sod 2.25 gm/ Sodium Chloride IVPB Infused Q6H CEE Infusion Dextrose 1,000 mls @ 50 mls/hr 12/06/24 17:15 Dextrose 10% IV CONT .Q20H PRN if PN is interrupted Fat Emulsion Intravenous 250 mls @ 20.833 mls/hr 12/06/24 18:00 12/09/24 05:15 Lipids 20% IVPB Infused Q24H CEE Infusion Multivitamins 1.25 ml/ 1,002.5 mls @ 50 mls/hr 12/08/24 10:00 12/09/24 05:15 Multivitamins 1.25 ml/ Amino IV CONT 50 mls/hr Acids/Electrolytes/Dextrose .Q20H3M CEE Administration Protocol Naloxone HCl 0.1 mg 12/06/24 17:15 Naloxone Hcl 0.4 Mg/Ml Vial IV PUSH Q2M PRN Opiate Reversal Ondansetron HCl 4 mg 12/03/24 17:26 12/09/24 05:23 Ondansetron Inj 4 Mg/2 Ml Vial IV PUSH 4 mg Q4H PRN Administration Nausea And Vomiting Pantoprazole Sodium 40 mg 12/07/24 09:00 12/09/24 08:07 Pantoprazole Sodium Iv 40 Mg Vial IV PUSH 40 mg QAM CEE Administration Phenol 1 spray 12/07/24 10:05 Phenol/Sod Pheno [place] Salomon (*Bkc) MUCOUS MEM Q2H PRN Sore Throat Sodium Chloride 10 ml 12/07/24 14:00 12/09/24 14:32 Central Line Flush IV PUSH 10 ml Q8HR CEE Administration Sodium Chloride 10 ml 12/07/24 09:45 Central Line Flush IV PUSH PRN PRN with TPN bag changes Sodium Chloride 20 ml 12/07/24 09:45 12/08/24 04:08 Central Line Flush IV PUSH 20 ml PRN PRN Administration after blood draws Radiology Results: ITS Impressions Renal Ultrasound 12/04/24 21:30 Impression: 1: Unremarkable renal ultrasound. No stones, masses or hydronephrosis. Pulmonary Perfusion Imaging 12/05/24 18:55 IMPRESSION: 1: Normal perfusion scan. Probable shallow lung volumes. Recommend correlation with chest x-ray.. Abdomen/Pelvis CT 12/06/24 09:26 IMPRESSION: 1. 7.2 x 1.8 x 7.9 cm collection of fluid, gas, and oral contrast in right paracolic gutter, consistent with anastomotic leak.. 2. Small volume of ascites. 3. Dilated small bowel, consistent with adynamic ileus. 4. Small left pleural effusion. Chest X-Ray 12/07/24 10:22 IMPRESSION: 1. Bibasilar atelectasis and/or airspace disease. Labs Labs: Laboratory Results - last 24 hr 12/08/24 12/09/24 12/09/24 18:07 00:10 05:06 WBC RBC Hgb Hct MCV MCH MCHC RDW Plt Count MPV Immature Gran % (Auto) Neut % (Auto) Lymph % (Auto) [place] % (Auto) Eos % (Auto) Baso % (Auto) Lymph # (Auto) [place] # (Auto) Eos # (Auto) Baso # (Auto) Abs Immat Gran (auto) Absolute Neuts (auto) Absolute Nucleated RBC Total Counted Neutrophils % (Manual) Band Neutrophils % Lymphocytes % (Manual) Monocytes % (Manual) Nucleated RBC % Abs Neuts (Manual) Abs Lymphs (Manual) Abs Monocytes (Manual) Nucleated RBCs Platelet Estimate Polychromasia Anisocytosis Schistocytes PT 15.0 H INR 1.2 APTT 29.6 Sodium 143 Potassium 3.1 L Chloride 107 Carbon Dioxide 36 H Anion Gap 0 L BUN 28 H D Creatinine 0.79 Estim Creat Clear Calc Not Reportable Estimated GFR > 60 Glucose 179 H POC Capillary Glucose 167 H 186 H Calcium 7.9 L Phosphorus 2.2 L Magnesium 2.7 H Transferrin 130 L Total Bilirubin 0.5 AST 92 H ALT 33 Alkaline Phosphatase 213 H Total Protein 5.2 L Albumin 2.3 L Triglycerides 186 H Procalcitonin 12/09/24 12/09/24 12/09/24 05:07 11:13 16:58 WBC 19.0 H RBC 3.01 L Hgb 7.5 L Hct 25.4 L MCV 84.4 MCH 24.9 L D MCHC 29.5 L RDW 21.1 H Plt Count 249 MPV 11.8 H Immature Gran % (Auto) Not Reportable Neut % (Auto) Not Reportable Lymph % (Auto) Not Reportable [place] % (Auto) Not Reportable Eos % (Auto) Not Reportable Baso % (Auto) Not Reportable Lymph # (Auto) Not Reportable [place] # (Auto) Not Reportable Eos # (Auto) Not Reportable Baso # (Auto) Not Reportable Abs Immat Gran (auto) Not Reportable Absolute Neuts (auto) Not Reportable Absolute Nucleated RBC Not Reportable Total Counted 100 Neutrophils % (Manual) 86 H Band Neutrophils % 7 H Lymphocytes % (Manual) 4 L Monocytes % (Manual) 3 Nucleated RBC % Not Reportable Abs Neuts (Manual) 17.67 H Abs Lymphs (Manual) 0.76 L Abs Monocytes (Manual) 0.57 Nucleated RBCs 1 Platelet Estimate Adequate Polychromasia 1+ Anisocytosis 2+ Schistocytes None seen PT INR APTT Sodium Potassium Chloride Carbon Dioxide Anion Gap BUN Creatinine Estim Creat Clear Calc Estimated GFR Glucose POC Capillary Glucose 161 H 164 H Calcium Phosphorus Magnesium Transferrin Total Bilirubin AST ALT Alkaline Phosphatase Total Protein Albumin Triglycerides Procalcitonin 1.0
[2024-12-10] VITALS (10 sets, daily range): BP systolic 122–159; BP diastolic 60–87; PULSE 71–119; RESP 17–20; TEMP 36.7–37.8; O2SAT 91–97
[2024-12-10] MEDS: PIPERACILLIN/TAZOBACTAM SOD 2.25 GM in SODIUM CHLORIDE 0.9% IV 50 ML 100 ML IVPB ×4 (00:54→17:51)
[2024-12-10] MEDS: HYDROmorphone HCL INJ (*CRX) 1 MG/ML SYR IV PUSH ×3 (01:09→20:14)
[2024-12-10] MEDS: CENTRAL LINE FLUSH 10 ML IV PUSH ×5 (02:27→22:00)
[2024-12-10] MEDS: AMINO ACIDS 5%/D15W/E-LYTES/CA 1,000 ML with MULTIVITAMINS-12 INJ VIAL 1 1.25 ML, MULTI... 50 ML IV CONT (02:27)
[2024-12-10] MEDS: CENTRAL LINE FLUSH 20 ML IV PUSH (05:17)
[2024-12-10] MEDS: ACETAMINOPHEN 650 MG SUPPOSITORY RECTAL (05:18)
[2024-12-10 05:25] LABS: Hematocrit 24.7 % (37.0-47.0); Hemoglobin 7.4 g/dL (12.0-15.0); Mean Corpuscular HGB Conc 30.0 g/dl (32-36); Mean Corpuscular Hemoglobin 25.4 pg (26-34); Mean Corpuscular Volume 84.9 fl (80-100); Platelet Count Result 323 k/mm3 (150-375); Red Blood Count 2.91 M/mm3 (4.2-5.4); White Blood Count 17.9 K/mm3 (4.5-10.0)
[2024-12-10 05:48] LABS: Anion Gap 1 mmol/L (4-12); Blood Urea Nitrogen 23 mg/dL (7-17); Calcium 7.8 mg/dL (8.4-10.2); Carbon Dioxide 37 mmol/L (22-30); Chloride 107 mmol/L (98-107); Estimated Glomerular Filt Rate > 60; Glucose 178 mg/dL (65-110); Magnesium 2.4 mg/dL (1.6-2.3); Potassium 3.1 mmol/L (3.4-5.0); Sodium 145 mmol/L (137-145)
[2024-12-10] MEDS: ENOXAPARIN 40 MG/0.4 ML SYRINGE SUB-Q (09:31)
[2024-12-10] MEDS: POTASSIUM PHOS,M-BASIC-D-BASIC 15 MMOL in SODIUM CHLORIDE 0.9% IV 250 ML 63.75 MMOL IVPB (09:31)
[2024-12-10] MEDS: PANTOPRAZOLE SODIUM IV 40 MG VIAL IV PUSH (09:32)
--- NOTE | 2024-12-10 11:40 | P.PNGS_ITS ---
Progress Note: A&P Assessment and Plan (1) Ileocolic anastomotic leak: Code(s): K91.89 - Other postprocedural complications and disorders of digestive system Status: Acute Assessment and Plan: * Patient spiked a fever overnight. WBC remains elevated at 17.9. CT ordered by hospitalist. Will follow or results. * Patient had bowel movement overnight and again this morning. Will continue NG suction and renew TPN for today. Could consider discontinuing NG tomorrow or later this week. * Continue Zosyn. * Continue PT/OT, up to chair * Potassium and phosphorus being replaced. * Wound vac change tomorrow. (2) Intra-abdominal abscess post-procedure: Code(s): T81.43XA - Infection following a procedure, organ and space surgical site, initial encounter; K65.1 - Peritoneal abscess Status: Acute Assessment and Plan: * Serosanguinous output in JUHI drain (3) Acute blood loss anemia: Code(s): D62 - Acute posthemorrhagic anemia Status: Acute Assessment and Plan: * Hgb remains stable. Lovenox held by hospitalist, but nurse reports she did get a dose today. (4) Adenocarcinoma of colon: Code(s): C18.9 - Malignant neoplasm of colon, unspecified Status: Acute Plan Discussed patient's case and plan of care with Dr. Burch. Subjective Subjective Date/Time Seen: 12/10/24 11:40 Patient reports: bowel movement and fever Interval history: .Patient reports no new complaints. However, she was febrile overnight and continues to be this morning. Patient states she does not feel any different. She had a bowel movement overnight and again this morning. Wound vac functioning well. Exam Const: General: comfortable and no acute distress GI: Inspection: distended GI Palp: Yes Firmness to palpation present (GI) and No Tenderness to palpation present (GI) Auscultation: normal bowel sounds Other: Wound vac with good seal and functioning properly. Objective Data Vital Signs Vital Signs: Vital Signs - 24 hr 12/09/24 11:45 12/09/24 16:00 12/09/24 20:00 Temperature 97.7 F 98.5 F 99.5 F Pulse Rate 113 H 109 H 111 H Respiratory Rate 18 18 20 Blood Pressure 138/69 122/65 138/70 Pulse Oximetry 96 93 94 Oxygen Delivery Oxygen Flow Rate 12/09/24 20:00 12/09/24 20:00 12/10/24 00:00 Temperature 99.2 F Pulse Rate 115 H 119 H Respiratory Rate 18 Blood Pressure 159/71 H Pulse Oximetry 95 91 Oxygen Delivery Nasal Cannula Oxygen Flow Rate 1 12/10/24 00:00 12/10/24 01:18 12/10/24 04:00 Temperature 100.0 F H Pulse Rate 112 H 115 H Respiratory Rate 20 Blood Pressure 149/81 H Pulse Oximetry 91 96 Oxygen Delivery Nasal Cannula Oxygen Flow Rate 2 12/10/24 04:00 12/10/24 05:18 12/10/24 06:18 Temperature 100.1 F H 99.7 F H Pulse Rate 109 H Respiratory Rate Blood Pressure Pulse Oximetry Oxygen Delivery Oxygen Flow Rate 12/10/24 06:18 12/10/24 08:00 Temperature 99.7 F H 99.8 F H Pulse Rate 116 H Respiratory Rate 18 Blood Pressure 122/87 Pulse Oximetry 97 Oxygen Delivery Oxygen Flow Rate Intake/Output Intake/Output: Intake & Output 12/07/24 12/08/24 12/09/24 12/10/24 23:59 23:59 23:59 23:59 Intake Total 2663.3 1430.0 1844.2 1302.5 Output Total 3340 2280 4560 930 Balance -676.7 -850.0 -2715.8 372.5 Meds/Results Medications: Active Medications Generic Name Dose Route Start Last Admin Trade Name Freq PRN Reason Stop Dose Admin Acetaminophen 650 mg 12/10/24 04:32 12/10/24 05:18 Acetaminophen 650 Mg Suppository RECTAL 650 mg Q4H PRN Administration Mild Pain (1-3) or Fever Enoxaparin Sodium 40 mg 12/07/24 09:00 12/10/24 09:31 Enoxaparin 40 Mg/0.4 Ml Syringe SUB-Q 40 mg On Hold: 12/10/24 09:42 DAILY CEE Administration Hydromorphone HCl 1 mg 12/06/24 17:15 12/10/24 01:09 Hydromorphone Hcl Inj (*Crx) 1 Mg/Ml Syr IV PUSH 1 mg Q2H PRN Administration Breakthrough Pain Rated 7-10 or NPO Hydromorphone HCl 0.5 mg 12/06/24 17:15 12/09/24 05:08 Hydromorphone Hcl Inj (*Crx) 1 Mg/Ml Syr IV PUSH 0.5 mg Q2H PRN Administration Breakthrough Pain Rated 4-6 or NPO Piperacillin Sod/Tazobactam 50 mls @ 100 mls/hr 12/04/24 18:00 12/10/24 05:17 Sod 2.25 gm/ Sodium Chloride IVPB 100 mls/hr Q6H CEE Administration Dextrose 1,000 mls @ 50 mls/hr 12/06/24 17:15 Dextrose 10% IV CONT .Q20H PRN if PN is interrupted Fat Emulsion Intravenous 250 mls @ 20.833 mls/hr 12/06/24 18:00 12/10/24 05:15 Lipids 20% IVPB Infused Q24H CEE Infusion Multivitamins 1.25 ml/ 1,002.5 mls @ 50 mls/hr 12/08/24 10:00 12/10/24 02:27 Multivitamins 1.25 ml/ Amino IV CONT 50 mls/hr Acids/Electrolytes/Dextrose .Q20H3M CEE Administration Protocol Potassium Phosphate 15 mmol/ 255 mls @ 63.75 mls/hr 12/10/24 08:24 12/10/24 09:31 Sodium Chloride IVPB 12/10/24 12:23 63.75 mls/hr ONCE ONE Administration Potassium Chloride 40 meq/ 520 mls @ 130 mls/hr 12/10/24 14:00 Sodium Chloride IVPB 12/10/24 17:59 ONCE ONE Naloxone HCl 0.1 mg 12/06/24 17:15 Naloxone Hcl 0.4 Mg/Ml Vial IV PUSH Q2M PRN Opiate Reversal Ondansetron HCl 4 mg 12/03/24 17:26 12/09/24 05:23 Ondansetron Inj 4 Mg/2 Ml Vial IV PUSH 4 mg Q4H PRN Administration Nausea And Vomiting Pantoprazole Sodium 40 mg 12/07/24 09:00 12/10/24 09:32 Pantoprazole Sodium Iv 40 Mg Vial IV PUSH 40 mg QAM CEE Administration Phenol 1 spray 12/07/24 10:05 Phenol/Sod Pheno [place] Sal[place] (*Bkc) MUCOUS MEM Q2H PRN Sore Throat Sodium Chloride 10 ml 12/07/24 14:00 12/10/24 05:16 Central Line Flush IV PUSH 10 ml Q8HR CEE Administration Sodium Chloride 10 ml 12/07/24 09:45 12/10/24 02:27 Central Line Flush IV PUSH 10 ml PRN PRN Administration with TPN bag changes Sodium Chloride 20 ml 12/07/24 09:45 12/10/24 05:17 Central Line Flush IV PUSH 20 ml PRN PRN Administration after blood draws Radiology Results: ITS Impressions Renal Ultrasound 12/04/24 21:30 Impression: 1: Unremarkable renal ultrasound. No stones, masses or hydronephrosis. Pulmonary Perfusion Imaging 12/05/24 18:55 IMPRESSION: 1: Normal perfusion scan. Probable shallow lung volumes. Recommend correlation with chest x-ray.. Abdomen/Pelvis CT 12/06/24 09:26 IMPRESSION: 1. 7.2 x 1.8 x 7.9 cm collection of fluid, gas, and oral contrast in right paracolic gutter, consistent with anastomotic leak.. 2. Small volume of ascites. 3. Dilated small bowel, consistent with adynamic ileus. 4. Small left pleural effusion. Chest X-Ray 12/07/24 10:22 IMPRESSION: 1. Bibasilar atelectasis and/or airspace disease. Chest/Abdomen/Pelvis CT 12/10/24 10:51 IMPRESSION: 1. Small amount of likely residual free intraperineal gas and fluid post likely revision of an ileocolic anastomosis and placement of a surgical drain. No evident organized abscess or extraluminal contrast to suggest residual anastomotic leak. 2. Wall thickening along the sigmoid colon consistent with colitis infectious or inflammatory in etiology. Differential would also include residual reactive edema related to the prior anastomotic leak and recent surgery. 3. Volume loss in both lungs with atelectasis at the bilateral lung bases including complete collapse of the right middle lobe. Superimposed pneumonia not excludable but suspicion is low. 4. Chronic mild dilation the common bile duct without evident obstructing stone or mass, likely related to prior cholecystectomy but would correlate with liver function tests. Labs Labs: Laboratory Results - last 24 hr 12/09/24 12/09/24 12/10/24 05:06 16:58 00:26 WBC RBC Hgb Hct MCV MCH MCHC RDW Plt Count MPV Sodium Potassium Chloride Carbon Dioxide Anion Gap BUN Creatinine Estim Creat Clear Calc Estimated GFR Glucose POC Capillary Glucose 164 H 169 H Calcium Phosphorus Magnesium Triglycerides 186 H 12/10/24 12/10/24 12/10/24 04:39 05:09 05:10 WBC 17.9 H RBC 2.91 L Hgb 7.4 L Hct 24.7 L MCV 84.9 MCH 25.4 L MCHC 30.0 L RDW 20.9 H Plt Count 323 MPV 11.4 H Sodium 145 Potassium 3.1 L Chloride 107 Carbon Dioxide 37 H Anion Gap 1 L BUN 23 H Creatinine 0.77 Estim Creat Clear Calc Not Reportable Estimated GFR > 60 Glucose 178 H POC Capillary Glucose 170 H Calcium 7.8 L Phosphorus 2.3 L Magnesium 2.4 H Triglycerides
--- NOTE | 2024-12-10 12:49 | PCNFU ---
Nutrition Follow-Up Complete: Inadequate energy intake related to altered GI function as evidenced by need for full TPN Goal:Meet estimated nutrition needs Pt progressing towards goal. Pt current nutrition is NPO, TPN running at 50ml/hr = 1352kcals, 60g protein. Nutrition recommendation: continue with current plan of care Last recorded weight is 69.8 kg. Bowel Motility: no BM, + flatus Labs Reviewed:Hgb:7.4, HCT:24.7, K:3.1, BUN:23, Glu:178, Phos:2.3 Meds Noted: zofran Skin: wound vac to abdomen Additional Notes: Pt continues to be NPO. TPN in place and meeting 78% of estimated needs, 85% of protein needs. Agree with orders Monitoring TPN tolerance, labs, weights, GI function, diet advancement, plan of care Follow up Monday/Monday.
--- NOTE | 2024-12-10 13:49 | PC.NURSE ---
On 12/10/24, the student, [Lorna Woods], provided care and completed [facility] documentation on this patient. I have reviewed the student's documentation and agree with the findings.
--- NOTE | 2024-12-10 14:23 | PM.IMPN ---
Progress Note: A&P Assessment and Plan (1) Acute kidney injury: Code(s): N17.9 - Acute kidney failure, unspecified Status: Acute Assessment and Plan: Creatinine 0.99 and BUN 29, GFR 56 upon admission on 12/03. Increased to 1.63, BUN 38, GFR 32. Initially presented with difficulty urinating, did undergo straight catheterization in the ED and now has Limon placed. Nephrology following, multifactorial etiology including contrast exposure, ARB use prior to admission, hypotension, urinary retention, possibly infection Improving, ultrasound completed, urine electrolytes demonstrate pre renal cause, CPK normal. Hold losartan. Continue TPN. Limon remains, to remove after surgical issues are resolved. (2) Urinary retention: Code(s): R33.9 - Retention of urine, unspecified Status: Acute Assessment and Plan: - reporting post-operative constipation, last BM was 4+ days prior to admission on 12/03, may be contributing to her retention - CT additionally showed 7 x 3 cm fluid collection in the pelvis situated between the uterus and the bladder with some mass effect on the bladder. General Surgery aware of issue, however it is in a location that is difficult to access and not a well organized collection, could also be contributing to retention. - Limon placed on 12/03, started on Flomax (3) History of partial colectomy: Code(s): Z90.49 - Acquired absence of other specified parts of digestive tract Status: Resolved Assessment and Plan: Underwent a hand assisted laparoscopic right colectomy, extensive adhesiolysis, mobilization of hepatic flexure by Dr. May on 11/27/24. Pathology showed adenocarcinoma and two tubular adenomas, with 4/13 lymph nodes positive. - presented 6 days postop with increased mid to right lower abdominal pain and urinary retention. - patient presents 6 days postop following AMBER right colectomy for right colon cancer. She has had increased mid to right lower abdominal pain over the past few days and also developed urinary retention. - exam findings and CT concerning for possible anastomotic leak - started on Zosyn on 12/03 CT abdomen/pelvis, 12/03 (7:31): 1. Small amount scattered free intraperitoneal gas and fluid and a few small collections of gas and fluid in the pelvis without well-defined peripheral enhancing wall to suggest organized abscess, likely related to recent right hemicolectomy and ileocolic anastomosis. 2. Persistent wall thickening along the sigmoid colon suggestive of scarring related to prior diverticulitis no significant surrounding inflammatory stranding to elevate suspicion for acute colitis/diverticulitis. 3. Persistent intra and extra hepatic biliary ductal dilation and dilation of the main pancreatic duct which may relate to prior cholecystectomy. Correlate with liver function tests and lipase levels and if clinically indicated could consider MRCP for further evaluation. CT repeated later on 12/03 (15:36): 1. Postoperative ileus with no dilated bowel or transition point and with the majority contrast remaining within the stomach and only a small amount of contrast having extended to the mid to distal jejunum 5 1/2 hours post oral contrast administration. No contrast in the region of the ileocolic anastomosis which precludes assessment for anastomotic leak. 2. No significant change in a nonspecific small amount of scattered free intraperineal gas and fluid in the abdomen and pelvis which could be directly secondary to the recent surgery. 3. Mild diverticulosis along the sigmoid colon where there is chronic wall thickening which could be due to scarring related to chronic diverticulitis versus less likely acute colitis or diverticulitis. Repeat CT 12/06/2024 with 7.2 x 1.8 x 7.9 cm collection of fluid, gas and oral contrast in the right paracolic gutter consistent with anastomotic leak. Small volume of ascites. Dilated small bowel consistent with adynamic ileus and small left pleural effusion. On 12/06/2024 underwent exploratory laparotomy with ileocolic resection with [id number] ileocolic anastomosis, drainage of intra-abdominal abscess, placement of wound VAC measuring 20 cm x 3 cm. She is doing relatively well postop, bowel rest, TPN. Mobilize when okay with surgery. She has hypoxia, chest x-ray demonstrates atelectasis, she is not moving around much, encourage the patient to move a bit more and use the incentive spirometer. Bibasilar crackles. Will try Lasix 20 mg IV x1. Monitor urine output, monitor daily weights, leukocytosis persists, she is afebrile and does not have any complaints, she appears nontoxic well. Will obtain CT chest if leukocytosis persists. Blood culture still negative. She is still on Zosyn. Procalcitonin 1.8 which is largely decreased from prior value 12/04/2024 blood culture x2, no growth at 24 hours. Afebrile. Leukocytosis persistent, continue to monitor. Anemia likely due to DARRYL, infection, post hemorrhagic anemia. Continue to trend hemoglobin q.6 hours, the patient is amenable to transfusion with a goal of hemoglobin greater than 7. She denies any coronary artery disease. 12/09/2024: Leukocytosis has peaked. She has significant anasarca give Lasix 40 mg IV x1. Continue trending I/O. Currently on 1 L nasal cannula, denying any shortness of breath. Wean as tolerated. If blood pressure cannot tolerate, can try albumin as she has hypoalbuminemia. 12/10/2024: Leukocytosis improved but she spiked a mild fever in the morning. Repeat CT chest abdomen pelvis with contrast not impressive for worsening intra-abdominal infection or worsening pneumonia. She does have significant atelectasis. She is very weak from acute illness and surgical interventions, only pulling about 400 cc on the incentive spirometer. Importance of using this, nurse present for this Education. Ordered EZ PAP as well. Will not give any more diuresis as she looks on the dry side now. Continue PT/OT. Hold Lovenox. Replace potassium. Continue TPN. Further management per surgery. (4) Hyperlipidemia: Qualifiers: Hyperlipidemia type: unspecified Qualified Code(s): E78.5 - Hyperlipidemia, unspecified Code(s): E78.5 - Hyperlipidemia, unspecified Status: Chronic Assessment and Plan: Hold home medications while NPO. (5) Hypertension: Qualifiers: Hypertension type: primary hypertension Qualified Code(s): I10 - Essential (primary) hypertension Code(s): I10 - Essential (primary) hypertension Status: Chronic Assessment and Plan: Hold home medications for now, continue to monitor. At goal. (6) Tachycardia: Code(s): R00.0 - Tachycardia, unspecified Status: Acute Assessment and Plan: Improved. Plan Per surgery, bowel rest and TPN. Protonix 40 mg IV q.a.m. DVT Prophylaxis: SCDs only, Lovenox 40 mg subQ q.day restarted on 12/07/2024. Holding on TPN Code Status: full code Time Spent With Patient Time with patient: Greater than 35 minutes Subjective Date/time seen: 12/10/24 14:23 Interval history: No major acute overnight events. She again has no complaints. Denies cough, shortness of breath, abdominal pain. She reports a loose brown movement. Passing gas as well. Review of Systems Review of Systems: All systems reviewed & are unremarkable except as noted in HPI and below (Subjective) Exam Const: General: comfortable and no acute distress HENMT: Mouth: Yes moist mucous membranes Eyes: Pupils: Equal, round and reactive pupils present Neck: Neck: supple Resp: Effort & Inspection: normal respiratory effort Other: Decreased breath sounds bilateral bases Cardio: Rate: regular rate Rhythm: regular rhythm Heart sounds: no murmurs GI: GI Palp: Yes Soft to palpation and No Tenderness to palpation present (GI) Neuro: Motor exam (neuro): 5/5 motor strength present throughout Extrem: Other: Pitting edema improved Objective Data Vital Signs Vital Signs: Vital Signs - 24 hr 12/09/24 16:00 12/09/24 20:00 12/09/24 20:00 Temperature 98.5 F 99.5 F Pulse Rate 109 H 111 H Respiratory Rate 18 20 Blood Pressure 122/65 138/70 Pulse Oximetry 93 94 95 Oxygen Delivery Nasal Cannula Oxygen Flow Rate 1 12/09/24 20:00 12/10/24 00:00 12/10/24 00:00 Temperature 99.2 F Pulse Rate 115 H 119 H 112 H Respiratory Rate 18 Blood Pressure 159/71 H Pulse Oximetry 91 Oxygen Delivery Oxygen Flow Rate 12/10/24 01:18 12/10/24 04:00 12/10/24 04:00 Temperature 100.0 F H Pulse Rate 115 H 109 H Respiratory Rate 20 Blood Pressure 149/81 H Pulse Oximetry 91 96 Oxygen Delivery Nasal Cannula Oxygen Flow Rate 2 12/10/24 05:18 12/10/24 06:18 12/10/24 06:18 Temperature 100.1 F H 99.7 F H 99.7 F H Pulse Rate Respiratory Rate Blood Pressure Pulse Oximetry Oxygen Delivery Oxygen Flow Rate 12/10/24 08:00 12/10/24 08:00 12/10/24 12:00 Temperature 99.8 F H 98.3 F Pulse Rate 116 H 112 H 107 H Respiratory Rate 18 18 Blood Pressure 122/87 127/64 Pulse Oximetry 97 95 Oxygen Delivery Oxygen Flow Rate 12/10/24 12:00 Temperature Pulse Rate 112 H Respiratory Rate Blood Pressure Pulse Oximetry Oxygen Delivery Oxygen Flow Rate Intake/Output Intake/Output: Intake & Output 12/07/24 12/08/24 12/09/24 12/10/24 23:59 23:59 23:59 23:59 Intake Total 2663.3 1430.0 1844.2 1352.5 Output Total 3340 2280 4560 930 Balance -676.7 -850.0 -2715.8 422.5 Meds/Results Medications: Active Medications Generic Name Dose Route Start Last Admin Trade Name Freq PRN Reason Stop Dose Admin Acetaminophen 650 mg 12/10/24 04:32 12/10/24 05:18 Acetaminophen 650 Mg Suppository RECTAL 650 mg Q4H PRN Administration Mild Pain (1-3) or Fever Enoxaparin Sodium 40 mg 12/07/24 09:00 12/10/24 09:31 Enoxaparin 40 Mg/0.4 Ml Syringe SUB-Q 40 mg On Hold: 12/10/24 09:42 DAILY CEE Administration Hydromorphone HCl 1 mg 12/06/24 17:15 12/10/24 12:34 Hydromorphone Hcl Inj (*Crx) 1 Mg/Ml Syr IV PUSH 1 mg Q2H PRN Administration Breakthrough Pain Rated 7-10 or NPO Hydromorphone HCl 0.5 mg 12/06/24 17:15 12/09/24 05:08 Hydromorphone Hcl Inj (*Crx) 1 Mg/Ml Syr IV PUSH 0.5 mg Q2H PRN Administration Breakthrough Pain Rated 4-6 or NPO Piperacillin Sod/Tazobactam 50 mls @ 100 mls/hr 12/04/24 18:00 12/10/24 12:51 Sod 2.25 gm/ Sodium Chloride IVPB 100 mls/hr Q6H CEE Administration Dextrose 1,000 mls @ 50 mls/hr 12/06/24 17:15 Dextrose 10% IV CONT .Q20H PRN if PN is interrupted Fat Emulsion Intravenous 250 mls @ 20.833 mls/hr 12/06/24 18:00 12/10/24 05:15 Lipids 20% IVPB Infused Q24H CEE Infusion Multivitamins 1.25 ml/ 1,002.5 mls @ 50 mls/hr 12/08/24 10:00 12/10/24 02:27 Multivitamins 1.25 ml/ Amino IV CONT 50 mls/hr Acids/Electrolytes/Dextrose .Q20H3M CEE Administration Protocol Potassium Chloride 40 meq/ 520 mls @ 130 mls/hr 12/10/24 14:00 Sodium Chloride IVPB 12/10/24 17:59 ONCE ONE Naloxone HCl 0.1 mg 12/06/24 17:15 Naloxone Hcl 0.4 Mg/Ml Vial IV PUSH Q2M PRN Opiate Reversal Ondansetron HCl 4 mg 12/03/24 17:26 12/09/24 05:23 Ondansetron Inj 4 Mg/2 Ml Vial IV PUSH 4 mg Q4H PRN Administration Nausea And Vomiting Pantoprazole Sodium 40 mg 12/07/24 09:00 12/10/24 09:32 Pantoprazole Sodium Iv 40 Mg Vial IV PUSH 40 mg QAM CEE Administration Phenol 1 spray 12/07/24 10:05 Phenol/Sod Pheno [place] Salomon (*Bkc) MUCOUS MEM Q2H PRN Sore Throat Sodium Chloride 10 ml 12/07/24 14:00 12/10/24 05:16 Central Line Flush IV PUSH 10 ml Q8HR CEE Administration Sodium Chloride 10 ml 12/07/24 09:45 12/10/24 02:27 Central Line Flush IV PUSH 10 ml PRN PRN Administration with TPN bag changes Sodium Chloride 20 ml 12/07/24 09:45 12/10/24 05:17 Central Line Flush IV PUSH 20 ml PRN PRN Administration after blood draws Radiology Results: ITS Impressions Renal Ultrasound 12/04/24 21:30 Impression: 1: Unremarkable renal ultrasound. No stones, masses or hydronephrosis. Pulmonary Perfusion Imaging 12/05/24 18:55 IMPRESSION: 1: Normal perfusion scan. Probable shallow lung volumes. Recommend correlation with chest x-ray.. Abdomen/Pelvis CT 12/06/24 09:26 IMPRESSION: 1. 7.2 x 1.8 x 7.9 cm collection of fluid, gas, and oral contrast in right paracolic gutter, consistent with anastomotic leak.. 2. Small volume of ascites. 3. Dilated small bowel, consistent with adynamic ileus. 4. Small left pleural effusion. Chest X-Ray 12/07/24 10:22 IMPRESSION: 1. Bibasilar atelectasis and/or airspace disease. Chest/Abdomen/Pelvis CT 12/10/24 10:51 IMPRESSION: 1. Small amount of likely residual free intraperineal gas and fluid post likely revision of an ileocolic anastomosis and placement of a surgical drain. No evident organized abscess or extraluminal contrast to suggest residual anastomotic leak. 2. Wall thickening along the sigmoid colon consistent with colitis infectious or inflammatory in etiology. Differential would also include residual reactive edema related to the prior anastomotic leak and recent surgery. 3. Volume loss in both lungs with atelectasis at the bilateral lung bases including complete collapse of the right middle lobe. Superimposed pneumonia not excludable but suspicion is low. 4. Chronic mild dilation the common bile duct without evident obstructing stone or mass, likely related to prior cholecystectomy but would correlate with liver function tests. Labs Labs: Laboratory Results - last 24 hr 12/09/24 12/09/24 12/10/24 05:06 16:58 00:26 WBC RBC Hgb Hct MCV MCH MCHC RDW Plt Count MPV Sodium Potassium Chloride Carbon Dioxide Anion Gap BUN Creatinine Estim Creat Clear Calc Estimated GFR Glucose POC Capillary Glucose 164 H 169 H Calcium Phosphorus Magnesium Triglycerides 186 H 12/10/24 12/10/24 12/10/24 04:39 05:09 05:10 WBC 17.9 H RBC 2.91 L Hgb 7.4 L Hct 24.7 L MCV 84.9 MCH 25.4 L MCHC 30.0 L RDW 20.9 H Plt Count 323 MPV 11.4 H Sodium 145 Potassium 3.1 L Chloride 107 Carbon Dioxide 37 H Anion Gap 1 L BUN 23 H Creatinine 0.77 Estim Creat Clear Calc Not Reportable Estimated GFR > 60 Glucose 178 H POC Capillary Glucose 170 H Calcium 7.8 L Phosphorus 2.3 L Magnesium 2.4 H Triglycerides 12/10/24 12:21 WBC RBC Hgb Hct MCV MCH MCHC RDW Plt Count MPV Sodium Potassium Chloride Carbon Dioxide Anion Gap BUN Creatinine Estim Creat Clear Calc Estimated GFR Glucose POC Capillary Glucose 152 H Calcium Phosphorus Magnesium Triglycerides
[2024-12-10] MEDS: POTASSIUM CHLORIDE INJ 40 MEQ in SODIUM CHLORIDE 0.9% IV 500 ML 130 MEQ IVPB (14:44)
[2024-12-10] MEDS: FAT EMULSIONS IV 20% 250 ML 20.83 ML IVPB (18:43)
[2024-12-11] VITALS (17 sets, daily range): BP systolic 114–134; BP diastolic 56–70; PULSE 104–130; RESP 18–28; TEMP 36.8–39.7; O2SAT 94–96
[2024-12-11] MEDS: PIPERACILLIN/TAZOBACTAM SOD 2.25 GM in SODIUM CHLORIDE 0.9% IV 50 ML 100 ML IVPB ×2 (00:08→05:41)
[2024-12-11] MEDS: AMINO ACIDS 5%/D15W/E-LYTES/CA 1,000 ML with MULTIVITAMINS-12 INJ VIAL 1 1.25 ML, MULTI... 50 ML IV CONT ×2 (00:09→18:16)
[2024-12-11] MEDS: HYDROmorphone HCL INJ (*CRX) 1 MG/ML SYR IV PUSH ×2 (00:33→20:18)
[2024-12-11] MEDS: CENTRAL LINE FLUSH 10 ML IV PUSH ×4 (00:42→23:22)
[2024-12-11] MEDS: ACETAMINOPHEN 650 MG SUPPOSITORY RECTAL ×3 (04:40→20:18)
[2024-12-11] MEDS: CENTRAL LINE FLUSH 20 ML IV PUSH (05:39)
[2024-12-11 05:40] LABS: Hematocrit 24.5 % (37.0-47.0); Hemoglobin 8.4 g/dL (12.0-15.0); Mean Corpuscular HGB Conc 34.3 g/dl (32-36); Mean Corpuscular Hemoglobin 28.9 pg (26-34); Mean Corpuscular Volume 84.2 fl (80-100); Platelet Count Result 418 k/mm3 (150-375); Red Blood Count 2.91 M/mm3 (4.2-5.4); White Blood Count 19.2 K/mm3 (4.5-10.0)
[2024-12-11 05:50] LABS: Anion Gap 2 mmol/L (4-12); Blood Urea Nitrogen 21 mg/dL (7-17); Calcium 7.2 mg/dL (8.4-10.2); Carbon Dioxide 32 mmol/L (22-30); Chloride 110 mmol/L (98-107); Estimated Glomerular Filt Rate > 60; Glucose 174 mg/dL (65-110); Magnesium 2.3 mg/dL (1.6-2.3); Potassium 3.7 mmol/L (3.4-5.0); Sodium 144 mmol/L (137-145)
[2024-12-11 06:16] LABS: Procalcitonin 0.5 ng/mL
[2024-12-11] MEDS: PANTOPRAZOLE SODIUM IV 40 MG VIAL IV PUSH (09:23)
[2024-12-11] MEDS: HYDROmorphone HCL INJ (*CRX) 1 MG/ML SYR 0.5 MG IV PUSH (09:30)
[2024-12-11] MEDS: PIPERACILLIN/TAZOBACTAM SOD 3.375 GM in SODIUM CHLORIDE 0.9% IV 50 ML 100 ML IVPB (11:47)
--- NOTE | 2024-12-11 14:29 | PM.IMPN ---
Progress Note: A&P Assessment and Plan (1) History of partial colectomy: Code(s): Z90.49 - Acquired absence of other specified parts of digestive tract Status: Resolved Assessment and Plan: Underwent a hand assisted laparoscopic right colectomy, extensive adhesiolysis, mobilization of hepatic flexure by Dr. May on 11/27/24. Pathology showed adenocarcinoma and two tubular adenomas, with 4/13 lymph nodes positive. - patient presents 6 days postop following AMBER right colectomy for right colon cancer. She has had increased mid to right lower abdominal pain over the past few days and also developed urinary retention. - started on Zosyn on 12/03 CT abdomen/pelvis, 12/03 (7:31): 1. Small amount scattered free intraperitoneal gas and fluid and a few small collections of gas and fluid in the pelvis without well-defined peripheral enhancing wall to suggest organized abscess, likely related to recent right hemicolectomy and ileocolic anastomosis. 2. Persistent wall thickening along the sigmoid colon suggestive of scarring related to prior diverticulitis no significant surrounding inflammatory stranding to elevate suspicion for acute colitis/diverticulitis. 3. Persistent intra and extra hepatic biliary ductal dilation and dilation of the main pancreatic duct which may relate to prior cholecystectomy. Correlate with liver function tests and lipase levels and if clinically indicated could consider MRCP for further evaluation. CT repeated later on 12/03 (15:36): 1. Postoperative ileus with no dilated bowel or transition point and with the majority contrast remaining within the stomach and only a small amount of contrast having extended to the mid to distal jejunum 5 1/2 hours post oral contrast administration. No contrast in the region of the ileocolic anastomosis which precludes assessment for anastomotic leak. 2. No significant change in a nonspecific small amount of scattered free intraperineal gas and fluid in the abdomen and pelvis which could be directly secondary to the recent surgery. 3. Mild diverticulosis along the sigmoid colon where there is chronic wall thickening which could be due to scarring related to chronic diverticulitis versus less likely acute colitis or diverticulitis. Repeat CT 12/06/2024 with 7.2 x 1.8 x 7.9 cm collection of fluid, gas and oral contrast in the right paracolic gutter consistent with anastomotic leak. Small volume of ascites. Dilated small bowel consistent with adynamic ileus and small left pleural effusion. On 12/06/2024 underwent exploratory laparotomy with ileocolic resection with [id number] ileocolic anastomosis, drainage of intra-abdominal abscess, placement of wound VAC measuring 20 cm x 3 cm. Postop, she has had a slow recovery. Leukocytosis worsening, has now developed fever up to 103 ? F morning of 12/11/2024. Patient routinely denies any symptoms. Repeat CT chest abdomen pelvis with contrast on 12/10/2024 demonstrating the following: IMPRESSION: 1. Small amount of likely residual free intraperineal gas and fluid post likely revision of an ileocolic anastomosis and placement of a surgical drain. No evident organized abscess or extraluminal contrast to suggest residual anastomotic leak. 2. Wall thickening along the sigmoid colon consistent with colitis infectious or inflammatory in etiology. Differential would also include residual reactive edema related to the prior anastomotic leak and recent surgery. 3. Volume loss in both lungs with atelectasis at the bilateral lung bases including complete collapse of the right middle lobe. Superimposed pneumonia not excludable but suspicion is low. 4. Chronic mild dilation the common bile duct without evident obstructing stone or mass, likely related to prior cholecystectomy but would correlate with liver function tests. Surgery following, noted dehiscence on 12/11/2024. Drain output looks more purulent today. 12/11/2024: Meropenem to Zosyn. Consult Infectious Disease. Currently on TPN. 12/04/2024 blood culture x2, no growth at 48 hours. Lab core has not updated growth time? (2) Acute kidney injury: Code(s): N17.9 - Acute kidney failure, unspecified Status: Acute Assessment and Plan: Creatinine 0.99 and BUN 29, GFR 56 upon admission on 12/03. Increased to 1.63, BUN 38, GFR 32. Initially presented with difficulty urinating, did undergo straight catheterization in the ED and now has Limon placed. Nephrology following, multifactorial etiology including contrast exposure, ARB use prior to admission, hypotension, urinary retention, possible infection. Improving, ultrasound completed, urine electrolytes demonstrate pre renal cause, CPK normal. Hold losartan. Continue TPN. Limon remains, to remove after surgical issues are resolved. Nephrology signed off. (3) Urinary retention: Code(s): R33.9 - Retention of urine, unspecified Status: Acute Assessment and Plan: - reporting post-operative constipation, last BM was 4+ days prior to admission on 12/03, may be contributing to her retention. Now she has many other issues since this admission. Is a mobile. - CT additionally showed 7 x 3 cm fluid collection in the pelvis situated between the uterus and the bladder with some mass effect on the bladder. General Surgery aware of issue, however it is in a location that is difficult to access and not a well organized collection, could also be contributing to retention. -Limon catheter placed on 12/03/2024. (4) Hypertension: Qualifiers: Hypertension type: primary hypertension Qualified Code(s): I10 - Essential (primary) hypertension Code(s): I10 - Essential (primary) hypertension Status: Chronic Assessment and Plan: -[employer] losartan 25 mg p.o. q.day on hold. Continue to hold during her acute surgical issues. Blood pressure at goal otherwise. (5) Acute blood loss anemia: Code(s): D62 - Acute posthemorrhagic anemia Status: Acute Assessment and Plan: On admission her hemoglobin 10.3 which is around her baseline. She has post hemorrhagic anemia, however stable. Using pharmacological DVT prophylaxis on a [id number] basis. Monitor for overt bleeding. (6) Acute hypoxemic respiratory failure: Code(s): J96.01 - Acute respiratory failure with hypoxia Status: Acute Assessment and Plan: Around the time of her surgery she was placed on 1 L nasal cannula. She is still on 1 or 2 L. decreased breath sounds bilateral bases. CT scan on 12/10/2024 demonstrates significant atelectasis on both sides. She has no shortness of breath or cough. Her fever and leukocytosis more likely due to intra-abdominal/pelvic process. Infectious Disease consulted. Continue EzPAP and incentive spirometer. Mobilize with therapy as soon as possible. Plan Per surgery, bowel rest and TPN. Limon catheter in place, NG tube in place. Protonix 40 mg IV q.a.m. Patient is deconditioned. PT/OT as appropriate per General surgery team. She has atelectasis, EzPAP and incentive spirometer ordered. She does not often using incentive spirometer encouraged her routinely to continue doing so. Showed her the proper way to use the device. Wound care per unit protocol and surgery. DVT Prophylaxis: SCDs only Lovenox on hold due to anemia and possible surgical intervention again. Patient wishes to be full code. Prior to admission she lives at home, she is independent. Time Spent With Patient Time with patient: Greater than 35 minutes Subjective Date/time seen: 12/11/24 14:29 Interval history: No major acute overnight events. She again has no complaints. Denies cough, shortness of breath, abdominal pain. Spoke with patient LONNIE, patient had a small watery brown stool. Patient denies fever or any other complaints. Discussed with the patient's General surgery team. Discussed with Infectious Disease pharmacist. Review of Systems Review of Systems: All systems reviewed & are unremarkable except as noted in HPI and below (Subjective) Exam Const: General: comfortable and no acute distress HENMT: Mouth: Yes moist mucous membranes Eyes: Pupils: Equal, round and reactive pupils present Neck: Neck: supple Resp: Effort & Inspection: normal respiratory effort Other: Decreased breath sounds bilateral bases Cardio: Rate: regular rate Rhythm: regular rhythm Heart sounds: no murmurs GI: GI Palp: Yes Soft to palpation and No Tenderness to palpation present (GI) Neuro: Motor exam (neuro): 5/5 motor strength present throughout Extrem: Other: Trace pitting edema bilateral lower extremities below the knees Objective Data Vital Signs Vital Signs: Vital Signs - 24 hr 12/10/24 16:00 12/10/24 16:00 12/10/24 20:00 Temperature 98.1 F 100.0 F H Pulse Rate 102 H 109 H 100 Respiratory Rate 17 18 Blood Pressure 128/72 126/60 Pulse Oximetry 96 97 Oxygen Delivery Oxygen Flow Rate Fraction of Inspired Oxygen 12/10/24 20:00 12/10/24 20:00 12/10/24 20:25 Temperature Pulse Rate 117 H 71 Respiratory Rate 20 Blood Pressure Pulse Oximetry 94 95 Oxygen Delivery Nasal Cannula Nasal Cannula Oxygen Flow Rate 2 2 Fraction of Inspired Oxygen 28 12/11/24 00:00 12/11/24 00:00 12/11/24 04:00 Temperature 99.0 F 103.5 F H Pulse Rate 121 H 122 H 120 H Respiratory Rate 18 28 H Blood Pressure 134/70 121/65 Pulse Oximetry 94 94 Oxygen Delivery Oxygen Flow Rate Fraction of Inspired Oxygen 12/11/24 04:00 12/11/24 04:40 12/11/24 05:40 Temperature 103.5 F H 100.4 F H Pulse Rate 121 H Respiratory Rate Blood Pressure Pulse Oximetry Oxygen Delivery Oxygen Flow Rate Fraction of Inspired Oxygen 12/11/24 08:00 12/11/24 08:02 12/11/24 08:16 Temperature 98.2 F Pulse Rate 104 H 110 H Respiratory Rate 24 H Blood Pressure 128/62 Pulse Oximetry 96 96 Oxygen Delivery Nasal Cannula Oxygen Flow Rate 2 Fraction of Inspired Oxygen 28 12/11/24 09:23 12/11/24 12:00 12/11/24 13:46 Temperature 100.3 F H Pulse Rate 115 H Respiratory Rate 24 H Blood Pressure Pulse Oximetry 96 Oxygen Delivery Nasal Cannula Oxygen Flow Rate 2 Fraction of Inspired Oxygen Intake/Output Intake/Output: Intake & Output 12/08/24 12/09/24 12/10/24 12/11/24 23:59 23:59 23:59 23:59 Intake Total 1430.0 1844.2 3230.0 400 Output Total 2280 4560 2140 550 Balance -850.0 -2715.8 1090.0 -150 Meds/Results Medications: Active Medications Generic Name Dose Route Start Last Admin Trade Name Freq PRN Reason Stop Dose Admin Acetaminophen 650 mg 12/10/24 04:32 12/11/24 13:46 Acetaminophen 650 Mg Suppository RECTAL 650 mg Q4H PRN Administration Mild Pain (1-3) or Fever Enoxaparin Sodium 40 mg 12/07/24 09:00 12/10/24 09:31 Enoxaparin 40 Mg/0.4 Ml Syringe SUB-Q 40 mg On Hold: 12/10/24 09:42 DAILY CEE Administration Hydromorphone HCl 1 mg 12/06/24 17:15 12/11/24 00:33 Hydromorphone Hcl Inj (*Crx) 1 Mg/Ml Syr IV PUSH 1 mg Q2H PRN Administration Breakthrough Pain Rated 7-10 or NPO Hydromorphone HCl 0.5 mg 12/06/24 17:15 12/11/24 09:30 Hydromorphone Hcl Inj (*Crx) 1 Mg/Ml Syr IV PUSH 0.5 mg Q2H PRN Administration Breakthrough Pain Rated 4-6 or NPO Dextrose 1,000 mls @ 50 mls/hr 12/06/24 17:15 Dextrose 10% IV CONT .Q20H PRN if PN is interrupted Fat Emulsion Intravenous 250 mls @ 20.833 mls/hr 12/06/24 18:00 12/11/24 06:44 Lipids 20% IVPB Infused Q24H CEE Infusion Multivitamins 1.25 ml/ 1,002.5 mls @ 50 mls/hr 12/08/24 10:00 12/11/24 00:09 Multivitamins 1.25 ml/ Amino IV CONT 50 mls/hr Acids/Electrolytes/Dextrose .Q20H3M CEE Administration Protocol Meropenem 1 gm/ Sodium 100 mls @ 200 mls/hr 12/11/24 15:00 Chloride IVPB Q8HR CEE Naloxone HCl 0.1 mg 12/06/24 17:15 Naloxone Hcl 0.4 Mg/Ml Vial IV PUSH Q2M PRN Opiate Reversal Ondansetron HCl 4 mg 12/03/24 17:26 12/09/24 05:23 Ondansetron Inj 4 Mg/2 Ml Vial IV PUSH 4 mg Q4H PRN Administration Nausea And Vomiting Pantoprazole Sodium 40 mg 12/07/24 09:00 12/11/24 09:23 Pantoprazole Sodium Iv 40 Mg Vial IV PUSH 40 mg QAM CEE Administration Phenol 1 spray 12/07/24 10:05 Phenol/Sod Pheno [place] (*Bkc) MUCOUS MEM Q2H PRN Sore Throat Sodium Chloride 10 ml 12/07/24 14:00 12/11/24 12:27 Central Line Flush IV PUSH 10 ml Q8HR CEE Administration Sodium Chloride 10 ml 12/07/24 09:45 12/11/24 00:42 Central Line Flush IV PUSH 10 ml PRN PRN Administration with TPN bag changes Sodium Chloride 20 ml 12/07/24 09:45 12/11/24 05:39 Central Line Flush IV PUSH 20 ml PRN PRN Administration after blood draws Radiology Results: ITS Impressions Renal Ultrasound 12/04/24 21:30 Impression: 1: Unremarkable renal ultrasound. No stones, masses or hydronephrosis. Pulmonary Perfusion Imaging 12/05/24 18:55 IMPRESSION: 1: Normal perfusion scan. Probable shallow lung volumes. Recommend correlation with chest x-ray.. Abdomen/Pelvis CT 12/06/24 09:26 IMPRESSION: 1. 7.2 x 1.8 x 7.9 cm collection of fluid, gas, and oral contrast in right paracolic gutter, consistent with anastomotic leak.. 2. Small volume of ascites. 3. Dilated small bowel, consistent with adynamic ileus. 4. Small left pleural effusion. Chest X-Ray 12/07/24 10:22 IMPRESSION: 1. Bibasilar atelectasis and/or airspace disease. Chest/Abdomen/Pelvis CT 12/10/24 10:51 IMPRESSION: 1. Small amount of likely residual free intraperineal gas and fluid post likely revision of an ileocolic anastomosis and placement of a surgical drain. No evident organized abscess or extraluminal contrast to suggest residual anastomotic leak. 2. Wall thickening along the sigmoid colon consistent with colitis infectious or inflammatory in etiology. Differential would also include residual reactive edema related to the prior anastomotic leak and recent surgery. 3. Volume loss in both lungs with atelectasis at the bilateral lung bases including complete collapse of the right middle lobe. Superimposed pneumonia not excludable but suspicion is low. 4. Chronic mild dilation the common bile duct without evident obstructing stone or mass, likely related to prior cholecystectomy but would correlate with liver function tests. Labs Labs: Laboratory Results - last 24 hr 12/10/24 12/11/24 12/11/24 17:13 00:38 04:37 WBC RBC Hgb Hct MCV MCH MCHC RDW Plt Count MPV Sodium Potassium Chloride Carbon Dioxide Anion Gap BUN Creatinine Estim Creat Clear Calc Estimated GFR Glucose POC Capillary Glucose 164 H 154 H 195 H Calcium Phosphorus Magnesium Procalcitonin 12/11/24 12/11/24 12/11/24 05:31 05:34 08:05 WBC 19.2 H RBC 2.91 L Hgb 8.4 L Hct 24.5 L MCV 84.2 MCH 28.9 D MCHC 34.3 RDW 21.1 H Plt Count 418 H MPV 11.3 H Sodium 144 Potassium 3.7 Chloride 110 H Carbon Dioxide 32 H Anion Gap 2 L BUN 21 H Creatinine 0.66 L Estim Creat Clear Calc Not Reportable Estimated GFR > 60 Glucose 174 H POC Capillary Glucose 174 H Calcium 7.2 L Phosphorus 2.2 L Magnesium 2.3 Procalcitonin 0.5 12/11/24 11:45 WBC RBC Hgb Hct MCV MCH MCHC RDW Plt Count MPV Sodium Potassium Chloride Carbon Dioxide Anion Gap BUN Creatinine Estim Creat Clear Calc Estimated GFR Glucose POC Capillary Glucose 183 H Calcium Phosphorus Magnesium Procalcitonin
[2024-12-11] MEDS: MEROPENEM 1 GM in SODIUM CHLORIDE 0.9% IV 100 ML 200 ML IVPB ×2 (15:25→21:08)
--- NOTE | 2024-12-11 15:54 | P.PNGS_ITS ---
Progress Note: A&P Assessment and Plan (1) Ileocolic anastomotic leak: Code(s): K91.89 - Other postprocedural complications and disorders of digestive system Status: Acute Assessment and Plan: * Patient continued to be febrile overnight with a T-max of 103.5? F. WBC remains elevated at 19.2. CT revealed small amount of likely residual free intraperitoneal gas and fluid likely from revision of an ileocolic anastomosis and placement of a surgical drain. Wall thickening along the sigmoid colon consistent with colitis. Volume loss in both lungs with atelectasis at the bilateral lung bases. Spoke with hospitalist and surgeon today. It is possible that fevers and leukocytosis could be due to an abdominal process, being that thin tovar fluid was noted to abdominal wound upon wound VAC change today. Wound VAC appliance was replaced today. Will plan for next change on Monday. Continue Zosyn. Meropenem added to regimen today and ID consult placed by hospitalist. We will continue to monitor closely and appreciate their recommendations. * Patient had bowel movement overnight and again this morning. Will continue NG suction and renew TPN for today. Could consider discontinuing NG tomorrow or later this week. * Continue Zosyn. * Continue PT/OT, up to chair * Potassium better today at 3.7. * Next wound vac change on Monday. (2) Intra-abdominal abscess post-procedure: Code(s): T81.43XA - Infection following a procedure, organ and space surgical site, initial encounter; K65.1 - Peritoneal abscess Status: Acute Assessment and Plan: * Mostly serosanguineous output in JUHI drain, but thicker purulent output in the tube. (3) Acute blood loss anemia: Code(s): D62 - Acute posthemorrhagic anemia Status: Acute Assessment and Plan: * Hgb remains stable. Lovenox held by hospitalist. (4) Adenocarcinoma of colon: Code(s): C18.9 - Malignant neoplasm of colon, unspecified Status: Acute Plan Discussed patient's case and plan of care with Dr. Burch. Subjective Subjective Date/Time Seen: 12/11/24 15:54 Post Op day: 5 Patient reports: no new complaints, bowel movement and fever Interval history: Patient febrile overnight with a T-max at 103.5 ? F. patient states that she has not felt any different. Patient has had multiple bowel movements. No nausea or vomiting. Exam GI: Inspection: non-distended GI Palp: Yes Soft to palpation and Yes Tenderness to palpation present (GI) Other: Wound VAC change today. Small area at the cephalad portion with fascial dehiscence roughly 1 cm wide. It appears that the suture was still intact just loosened. No evisceration or abdominal contents able to be visualized. There was some thin tovar fluid leaking out of the area of dehiscence. Another area to the caudal portion of the wound with some tovar thin fluid. JUHI drain with mostly serosanguineous fluid, but thicker chunky purulent output in drainage tube. Objective Data Vital Signs Vital Signs: Vital Signs - 24 hr 12/10/24 16:00 12/10/24 16:00 12/10/24 20:00 Temperature 98.1 F 100.0 F H Pulse Rate 102 H 109 H 100 Respiratory Rate 17 18 Blood Pressure 128/72 126/60 Pulse Oximetry 96 97 Oxygen Delivery Oxygen Flow Rate Fraction of Inspired Oxygen 12/10/24 20:00 12/10/24 20:00 12/10/24 20:25 Temperature Pulse Rate 117 H 71 Respiratory Rate 20 Blood Pressure Pulse Oximetry 94 95 Oxygen Delivery Nasal Cannula Nasal Cannula Oxygen Flow Rate 2 2 Fraction of Inspired Oxygen 28 12/11/24 00:00 12/11/24 00:00 12/11/24 04:00 Temperature 99.0 F 103.5 F H Pulse Rate 121 H 122 H 120 H Respiratory Rate 18 28 H Blood Pressure 134/70 121/65 Pulse Oximetry 94 94 Oxygen Delivery Oxygen Flow Rate Fraction of Inspired Oxygen 12/11/24 04:00 12/11/24 04:40 12/11/24 05:40 Temperature 103.5 F H 100.4 F H Pulse Rate 121 H Respiratory Rate Blood Pressure Pulse Oximetry Oxygen Delivery Oxygen Flow Rate Fraction of Inspired Oxygen 12/11/24 08:00 12/11/24 08:02 12/11/24 08:16 Temperature 98.2 F Pulse Rate 104 H 110 H Respiratory Rate 24 H Blood Pressure 128/62 Pulse Oximetry 96 96 Oxygen Delivery Nasal Cannula Oxygen Flow Rate 2 Fraction of Inspired Oxygen 28 12/11/24 09:23 12/11/24 12:00 12/11/24 13:40 Temperature 100.3 F H Pulse Rate 115 H 122 H Respiratory Rate 24 H 22 H Blood Pressure 122/62 Pulse Oximetry 96 96 Oxygen Delivery Nasal Cannula Oxygen Flow Rate 2 Fraction of Inspired Oxygen 12/11/24 13:46 12/11/24 14:40 12/11/24 14:45 Temperature 100.3 F H 98.4 F 98.4 F Pulse Rate 124 H Respiratory Rate 22 H Blood Pressure 124/66 Pulse Oximetry 96 Oxygen Delivery Oxygen Flow Rate Fraction of Inspired Oxygen Intake/Output Intake/Output: Intake & Output 12/08/24 12/09/24 12/10/24 12/11/24 23:59 23:59 23:59 23:59 Intake Total 1430.0 1844.2 3230.0 400 Output Total 2280 4560 2140 550 Balance -850.0 -2715.8 1090.0 -150 Meds/Results Medications: Active Medications Generic Name Dose Route Start Last Admin Trade Name Freq PRN Reason Stop Dose Admin Acetaminophen 650 mg 12/10/24 04:32 12/11/24 13:46 Acetaminophen 650 Mg Suppository RECTAL 650 mg Q4H PRN Administration Mild Pain (1-3) or Fever Enoxaparin Sodium 40 mg 12/07/24 09:00 12/10/24 09:31 Enoxaparin 40 Mg/0.4 Ml Syringe SUB-Q 40 mg On Hold: 12/10/24 09:42 DAILY CEE Administration Hydromorphone HCl 1 mg 12/06/24 17:15 12/11/24 00:33 Hydromorphone Hcl Inj (*Crx) 1 Mg/Ml Syr IV PUSH 1 mg Q2H PRN Administration Breakthrough Pain Rated 7-10 or NPO Hydromorphone HCl 0.5 mg 12/06/24 17:15 12/11/24 09:30 Hydromorphone Hcl Inj (*Crx) 1 Mg/Ml Syr IV PUSH 0.5 mg Q2H PRN Administration Breakthrough Pain Rated 4-6 or NPO Dextrose 1,000 mls @ 50 mls/hr 12/06/24 17:15 Dextrose 10% IV CONT .Q20H PRN if PN is interrupted Fat Emulsion Intravenous 250 mls @ 20.833 mls/hr 12/06/24 18:00 12/11/24 06:4 4 Lipids 20% IVPB Infused Q24H CEE Infusion Multivitamins 1.25 ml/ 1,002.5 mls @ 50 mls/hr 12/08/24 10:00 12/11/24 00:09 Multivitamins 1.25 ml/ Amino IV CONT 50 mls/hr Acids/Electrolytes/Dextrose .Q20H3M CEE Administration Protocol Meropenem 1 gm/ Sodium 100 mls @ 200 mls/hr 12/11/24 15:00 12/11/24 15:25 Chloride IVPB 200 mls/hr Q8HR CEE Administration Naloxone HCl 0.1 mg 12/06/24 17:15 Naloxone Hcl 0.4 Mg/Ml Vial IV PUSH Q2M PRN Opiate Reversal Ondansetron HCl 4 mg 12/03/24 17:26 12/09/24 05:23 Ondansetron Inj 4 Mg/2 Ml Vial IV PUSH 4 mg Q4H PRN Administration Nausea And Vomiting Pantoprazole Sodium 40 mg 12/07/24 09:00 12/11/24 09:23 Pantoprazole Sodium Iv 40 Mg Vial IV PUSH 40 mg QAM CEE Administration Phenol 1 spray 12/07/24 10:05 Phenol/Sod Pheno Holloway Salomon (*Bkc) MUCOUS MEM Q2H PRN Sore Throat Sodium Chloride 10 ml 12/07/24 14:00 12/11/24 12:27 Central Line Flush IV PUSH 10 ml Q8HR CEE Administration Sodium Chloride 10 ml 12/07/24 09:45 12/11/24 00:42 Central Line Flush IV PUSH 10 ml PRN PRN Administration with TPN bag changes Sodium Chloride 20 ml 12/07/24 09:45 12/11/24 05:39 Central Line Flush IV PUSH 20 ml PRN PRN Administration after blood draws Radiology Results: ITS Impressions Renal Ultrasound 12/04/24 21:30 Impression: 1: Unremarkable renal ultrasound. No stones, masses or hydronephrosis. Pulmonary Perfusion Imaging 12/05/24 18:55 IMPRESSION: 1: Normal perfusion scan. Probable shallow lung volumes. Recommend correlation with chest x-ray.. Abdomen/Pelvis CT 12/06/24 09:26 IMPRESSION: 1. 7.2 x 1.8 x 7.9 cm collection of fluid, gas, and oral contrast in right paracolic gutter, consistent with anastomotic leak.. 2. Small volume of ascites. 3. Dilated small bowel, consistent with adynamic ileus. 4. Small left pleural effusion. Chest X-Ray 12/07/24 10:22 IMPRESSION: 1. Bibasilar atelectasis and/or airspace disease. Chest/Abdomen/Pelvis CT 12/10/24 10:51 IMPRESSION: 1. Small amount of likely residual free intraperineal gas and fluid post likely revision of an ileocolic anastomosis and placement of a surgical drain. No evident organized abscess or extraluminal contrast to suggest residual anastomotic leak. 2. Wall thickening along the sigmoid colon consistent with colitis infectious or inflammatory in etiology. Differential would also include residual reactive edema related to the prior anastomotic leak and recent surgery. 3. Volume loss in both lungs with atelectasis at the bilateral lung bases including complete collapse of the right middle lobe. Superimposed pneumonia not excludable but suspicion is low. 4. Chronic mild dilation the common bile duct without evident obstructing stone or mass, likely related to prior cholecystectomy but would correlate with liver function tests. Labs Labs: Laboratory Results - last 24 hr 12/10/24 12/11/24 12/11/24 17:13 00:38 04:37 WBC RBC Hgb Hct MCV MCH MCHC RDW Plt Count MPV Sodium Potassium Chloride Carbon Dioxide Anion Gap BUN Creatinine Estim Creat Clear Calc Estimated GFR Glucose POC Capillary Glucose 164 H 154 H 195 H Calcium Phosphorus Magnesium Procalcitonin 12/11/24 12/11/24 12/11/24 05:31 05:34 08:05 WBC 19.2 H RBC 2.91 L Hgb 8.4 L Hct 24.5 L MCV 84.2 MCH 28.9 D MCHC 34.3 RDW 21.1 H Plt Count 418 H MPV 11.3 H Sodium 144 Potassium 3.7 Chloride 110 H Carbon Dioxide 32 H Anion Gap 2 L BUN 21 H Creatinine 0.66 L Estim Creat Clear Calc Not Reportable Estimated GFR > 60 Glucose 174 H POC Capillary Glucose 174 H Calcium 7.2 L Phosphorus 2.2 L Magnesium 2.3 Procalcitonin 0.5 12/11/24 11:45 WBC RBC Hgb Hct MCV MCH MCHC RDW Plt Count MPV Sodium Potassium Chloride Carbon Dioxide Anion Gap BUN Creatinine Estim Creat Clear Calc Estimated GFR Glucose POC Capillary Glucose 183 H Calcium Phosphorus Magnesium Procalcitonin
--- NOTE | 2024-12-11 16:04 | PCOTNOTE ---
Patient has new bedrest orders entered, will await for resume therapy orders.
[2024-12-11] MEDS: FAT EMULSIONS IV 20% 250 ML 20.83 ML IVPB (18:17)
[2024-12-11 18:57] LABS: Triglycerides 131 mg/dL (<150)
[2024-12-12] VITALS (13 sets, daily range): BP systolic 101–115; BP diastolic 58–66; PULSE 114–126; RESP 20; TEMP 36.6–37.6; O2SAT 94–98
[2024-12-12] MEDS: HYDROmorphone HCL INJ (*CRX) 1 MG/ML SYR IV PUSH ×4 (01:38→21:10)
[2024-12-12] MEDS: CENTRAL LINE FLUSH 10 ML IV PUSH ×3 (05:09→20:49)
[2024-12-12] MEDS: MEROPENEM 1 GM in SODIUM CHLORIDE 0.9% IV 100 ML 200 ML IVPB ×3 (05:09→20:49)
[2024-12-12 05:23] LABS: Hematocrit 25.6 % (37.0-47.0); Hemoglobin 7.6 g/dL (12.0-15.0); Mean Corpuscular HGB Conc 29.7 g/dl (32-36); Mean Corpuscular Hemoglobin 25.2 pg (26-34); Mean Corpuscular Volume 85.0 fl (80-100); Platelet Count Result 392 k/mm3 (150-375); Red Blood Count 3.01 M/mm3 (4.2-5.4); White Blood Count 17.3 K/mm3 (4.5-10.0)
[2024-12-12 05:52] LABS: Alanine Aminotransferase 41 U/L (6-35); Albumin Level 2.2 g/dL (3.5-5.1); Alkaline Phosphatase 182 U/L (38-126); Anion Gap 2 mmol/L (4-12); Aspartate Amino Transferase 101 U/L (14-36); Bilirubin,Total 0.5 mg/dL (0.2-1.3); Blood Urea Nitrogen 28 mg/dL (7-17); Calcium 7.5 mg/dL (8.4-10.2); Carbon Dioxide 32 mmol/L (22-30); Chloride 113 mmol/L (98-107); Estimated Glomerular Filt Rate > 60; Glucose 197 mg/dL (65-110); Magnesium 2.7 mg/dL (1.6-2.3); Potassium 3.2 mmol/L (3.4-5.0); Sodium 147 mmol/L (137-145); Total Protein 5.5 g/dL (6.3-8.2)
[2024-12-12 06:07] LABS: Procalcitonin 0.8 ng/mL
[2024-12-12 06:39] LABS: Total Cells Counted 100
[2024-12-12 06:40] LABS: Anisocytosis 1+; Band Neutrophils Percent 10 % (0-6); Hypochromasia 1+; Lymphocytes Absolute Manual 0.86 K/mm3 (1.1-4.5); Lymphocytes Percent Manual 5 % (18-44); Neutrophils Absolute Manual 16.43 K/mm3 (1.3-6.7); Neutrophils Percent Manual 85 % (46-73); Schistocytes None Seen
--- NOTE | 2024-12-12 09:08 | WPDIDCN ---
Assessment and Plan Assessment and plan (1) Intra-abdominal abscess post-procedure: Code(s): T81.43XA - Infection following a procedure, organ and space surgical site, initial encounter; K65.1 - Peritoneal abscess Status: Acute Assessment and Plan: -Abscess secondary to ileocolic anastomotic leak -Manaagement as per surgical service (2) Ileocolic anastomotic leak: Code(s): K91.89 - Other postprocedural complications and disorders of digestive system Status: Acute Assessment and Plan: -Management as per surgical service (3) History of partial colectomy: Code(s): Z90.49 - Acquired absence of other specified parts of digestive tract Status: Resolved (4) Adenocarcinoma of colon: Code(s): C18.9 - Malignant neoplasm of colon, unspecified Status: Acute Assessment and Plan: -Management as per primary service (5) Cancer of right colon: Onset Date: ~10/2024 Code(s): C18.2 - Malignant neoplasm of ascending colon Status: Acute Assessment and Plan: -Management as per primary service (6) C. difficile diarrhea: Onset Date: ~04/01/24 Code(s): A04.72 - Enterocolitis due to Clostridium difficile, not specified as recurrent Status: Inactive Assessment and Plan: -Patient has history of C.difficile infection starting in March 2024 -Has new diarrhea as of 12/12/24 Plan -Continue Meropenem day 2 for empiric treatment of abdominal abscess secondary to ileocolic anastomotic leak -Check C.difficile PCR and EIA -Start enteral Vancomycin -Continue supportive measures Discussed with patient. All questions answered Patient was seen via video telehealth consultation with the assistance of staff. Chart, data, and patient independently reviewed. Patient was located at [facility] while I was located in [facility] office. Received verbal consent from patient. HPI Data of Consult Date/Time: 12/12/24 09:08 Requesting Physician: Linn May MD Primary Care Provider: Barbara Jordan MD Consult Narrative Reason for consult: Ileocolonic anastomotic leak Narrative: Rosanna Johns is a 64 year old female who was admitted with lower abdominal pain. She previously underwent right colon resection with ileocolic anastomosis. OR pathology notable for adenocarcinoma of the colon. She was found to have ileocolic anastomotic leak and abscess. She was on Zosyn but continued to have peripheral leukocytosis. She was switched to Meropenem on 12/11/24. No abscess drainage done to date and no intra-abdominal cultures available as a result. Today, patient reports no fever/chills. Abdominal pain controlled. She is passing flatus. Noted to have loose BMs in the last 24 hours. She has a history of C.diffiicle infection in May 2024. Review of Systems Review of Systems: All systems reviewed & are unremarkable except as noted in HPI and below PMFSH Past Medical History Medical History Iron deficiency anemia Recurrent Clostridioides difficile diarrhea (~06/2024) 04/06, 05/07, 07/05 Cancer of right colon (~10/2024) 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: CT of abdomen - no portal vein thrombosis 04/06: CT of the abdomen shows portal vein thrombosis in the right liver lobe, inferior mesenteric vein and sigmoid branch vein thrombosis Osteopenia Iron deficiency anemia Diverticulitis large intestine (~03/27/24) Melanoma s/p excision Heart murmur Vitamin B12 deficiency Lumbar spondylosis COVID (~08/2021) History of TIA (transient ischemic attack) (~04/2021) Rhabdomyolysis (~04/2021) Anxiety Chronic lumbar pain Hyperlipidemia Hypertension Surgical History Surgical History History of partial colectomy 11/27/24 -hand assisted laparoscopic right colectomy History of appendectomy History of tonsillectomy (~1965) History of melanoma excision Left shoulder History of cervical spinal surgery (~2014) History of back surgery (~2018) Hx of cholecystectomy (Unknown) Family History Family History Mother Family history of elevated blood lipids Family history of emphysema Hypertension Grandparent Acute myocardial infarction Family history of malignant neoplasm of urinary bladder Father Patient's father is Dementia Sibling COPD (chronic obstructive pulmonary disease) Other Anxiety Depression Family history of chronic obstructive pulmonary disease Skin cancer Social History Social History Smoking packs per day: 0.5 Smoking cigarettes per day: 10.0 Years smoked: 2 Smoking pack-years: 1.00 Smoking status: Never smoker Tobacco type: cigarettes Second hand tobacco smoke exposure: No Alcohol intake: never Substance use: never Substance use type: does not use Do You Feel Safe in your Home?: No Lack of Transportation: No Lack of Food: Never True Current Housing: I Have Housing Concerned About Future Housing: No Difficulty Paying Gas/Electric Bills: No Difficulty Paying for Meds: No Currently Unemployed: No Education: High School Diploma/GED Difficulty w/ Childcare or Family Care: No Living arrangements: alone Gender identity (if verbalized by the patient): Female Spiritual care concerns: No Meds Home Medications and Allergies Home Medications ?Medication ?Instructions ?Recorded ?Confirmed ?Type cholecalciferol (vitamin D3) 25 25 mcg PO DAILY 04/06/21 12/03/24 History mcg (1,000 unit) capsule Lactobacills gasseri-Bifidobac 1 cap PO DAILY 04/25/21 12/03/24 History bifidum,longum 1.5 billion cell capsule (PayOrPass) cyanocobalamin (vitamin B-12) 1,000 mcg sublingual .QOD 07/02/24 12/03/24 History 1,000 mcg sublingual tablet losartan 25 mg tablet 25 mg PO DAILY #100 tabs 07/02/24 12/03/24 Rx atorvastatin 20 mg tablet 20 mg PO QHS #90 tabs 07/25/24 12/03/24 Rx lorazepam 1 mg tablet 1 mg PO BID PRN Anxiety #90 tabs 11/12/24 12/03/24 Rx ondansetron 4 mg disintegrating 4 mg PO Q6-8H PRN nausea and 11/26/24 12/03/24 Rx tablet vomiting #14 tabs docusate sodium 100 mg capsule 100 mg PO BID #30 caps 11/29/24 12/03/24 Rx (Colace) hydrocodone 5 mg-acetaminophen 325 1 tablet PO Q6H PRN pain #30 tabs 11/29/24 12/03/24 Rx mg tablet omega-3 fatty acids 500 mg capsule 500 mg PO DAILY 12/03/24 12/03/24 History (MaxEPA) Allergies Allergy/AdvReac Type Severity Reaction Status Date / Time Sulfa (Sulfonamide AdvReac Mild Hives Verified 12/06/24 12:37 Antibiotics) sulfamethizole AdvReac Mild Hives Verified 12/06/24 12:37 sulfamethoxazole AdvReac Mild HIVES Verified 12/06/24 12:37 trimethoprim AdvReac Mild Hives Verified 12/06/24 12:37 Vital Signs Vital Signs - 24 hr 12/11/24 09:23 12/11/24 12:00 12/11/24 13:40 Temperature 100.3 F H Pulse Rate 115 H 122 H Respiratory Rate 24 H 22 H Blood Pressure 122/62 Pulse Oximetry 96 96 Oxygen Delivery Nasal Cannula Oxygen Flow Rate 2 Fraction of Inspired Oxygen 12/11/24 13:46 12/11/24 14:40 12/11/24 14:45 Temperature 100.3 F H 98.4 F 98.4 F Pulse Rate 124 H Respiratory Rate 22 H Blood Pressure 124/66 Pulse Oximetry 96 Oxygen Delivery Oxygen Flow Rate Fraction of Inspired Oxygen 12/11/24 16:03 12/11/24 17:15 12/11/24 19:54 Temperature 100.5 F H 100.1 F H Pulse Rate 130 H 129 H 126 H Respiratory Rate 22 H 20 Blood Pressure 128/70 114/56 L Pulse Oximetry 95 94 Oxygen Delivery Oxygen Flow Rate Fraction of Inspired Oxygen 12/11/24 21:08 12/11/24 21:08 12/12/24 00:00 Temperature 98.8 F Pulse Rate 126 H 126 H 116 H Respiratory Rate 20 20 Blood Pressure 105/58 L Pulse Oximetry 94 95 Oxygen Delivery Nasal Cannula Oxygen Flow Rate 2 Fraction of Inspired Oxygen 28 12/12/24 00:00 12/12/24 03:40 12/12/24 04:00 Temperature 98.1 F Pulse Rate 117 H 120 H 118 H Respiratory Rate 20 Blood Pressure 115/60 Pulse Oximetry 95 Oxygen Delivery Oxygen Flow Rate Fraction of Inspired Oxygen Exam Narrative: Gen: alart, fatigued HEENT: NG tube in place Pulm: minmal conversational dyspnea Abd: distended, soft, wound vac in place Ext: peripheral edema Lines: Central line intact Results Labs 12/12/24 05:09 12/12/24 05:08 Labs: Short CBC 12/12/24 Range/Units 05:09 WBC 17.3 H (4.5-10.0) K/mm3 Hgb 7.6 L (12.0-15.0) g/dL Hct 25.6 L (37.0-47.0) % Plt Count 392 H (150-375) k/mm3 BMP 12/12/24 05:08 Sodium 147 H Potassium 3.2 L Chloride 113 H Carbon Dioxide 32 H BUN 28 H Creatinine 0.82 Glucose 197 H Calcium 7.5 L Liver Function 12/12/24 Range/Units 05:08 Total Bilirubin 0.5 (0.2-1.3) mg/dL AST 101 H (14-36) U/L ALT 41 H (6-35) U/L Alkaline Phosphatase 182 H (38-126) U/L Albumin 2.2 L (3.5-5.1) g/dL
[2024-12-12] MEDS: PANTOPRAZOLE SODIUM IV 40 MG VIAL IV PUSH (09:54)
--- NOTE | 2024-12-12 10:14 | PM.PNGS ---
Progress Note: A&P Assessment and Plan (1) Ileocolic anastomotic leak: Code(s): K91.89 - Other postprocedural complications and disorders of digestive system Status: Acute Assessment and Plan: Patient was febrile yesterday evening, but afebrile throughout the night into this morning. WBC remains elevated at 17.3. Meropenem added to antibiotic regimen yesterday. CT was unremarkable for any acute process. Awaiting infectious disease recommendations. Patient continues to have frequent bowel movements. 1000 mL gastric drainage yesterday. 575 so far today. Will continue NG decompression. Continue PT/OT, up to chair Potassium 3.2. Repleted with KCl. Next wound vac change tomorrow. (2) Intra-abdominal abscess post-procedure: Code(s): T81.43XA - Infection following a procedure, organ and space surgical site, initial encounter; K65.1 - Peritoneal abscess Status: Acute Assessment and Plan: Mostly serosanguineous output in JUHI drain. (3) Acute blood loss anemia: Code(s): D62 - Acute posthemorrhagic anemia Status: Acute Assessment and Plan: Hgb remains stable. Lovenox resumed today. (4) Adenocarcinoma of colon: Code(s): C18.9 - Malignant neoplasm of colon, unspecified Status: Acute Plan Discussed patient's case and plan of care with Dr. Burch. Subjective Subjective Date/Time Seen: 12/12/24 10:14 Post Op day: 6 Patient reports: bowel movement and afebrile Interval history: Patient doing well today. No new complaints. She did have low grade fevers yesterday evening, but was afebrile overnight and into this morning. Still tachy. Exam Const: General: comfortable and no acute distress GI: Inspection: distended GI Palp: No Tenderness to palpation present (GI) and No Guarding due to palpation present (GI) Auscultation: normal bowel sounds Other: Wound vac with good seal. Functioning properly. Dark red output in canister as well as serosanguineous fluid atop. JUHI drain with serosanguineous fluid. Objective Data Vital Signs Vital Signs: Vital Signs - 24 hr 12/11/24 12:00 12/11/24 13:40 12/11/24 13:46 Temperature 100.3 F H 100.3 F H Pulse Rate 115 H 122 H Respiratory Rate 22 H Blood Pressure 122/62 Pulse Oximetry 96 Oxygen Delivery Oxygen Flow Rate Fraction of Inspired Oxygen 12/11/24 14:40 12/11/24 14:45 12/11/24 16:03 Temperature 98.4 F 98.4 F Pulse Rate 124 H 130 H Respiratory Rate 22 H Blood Pressure 124/66 Pulse Oximetry 96 Oxygen Delivery Oxygen Flow Rate Fraction of Inspired Oxygen 12/11/24 17:15 12/11/24 19:54 12/11/24 21:08 Temperature 100.5 F H 100.1 F H Pulse Rate 129 H 126 H 126 H Respiratory Rate 22 H 20 20 Blood Pressure 128/70 114/56 L Pulse Oximetry 95 94 94 Oxygen Delivery Nasal Cannula Oxygen Flow Rate 2 Fraction of Inspired Oxygen 28 12/11/24 21:08 12/12/24 00:00 12/12/24 00:00 Temperature 98.8 F Pulse Rate 126 H 116 H 117 H Respiratory Rate 20 Blood Pressure 105/58 L Pulse Oximetry 95 Oxygen Delivery Oxygen Flow Rate Fraction of Inspired Oxygen 12/12/24 03:40 12/12/24 04:00 12/12/24 09:13 Temperature 98.1 F Pulse Rate 120 H 118 H Respiratory Rate 20 Blood Pressure 115/60 Pulse Oximetry 95 94 Oxygen Delivery Nasal Cannula Oxygen Flow Rate 2 Fraction of Inspired Oxygen 12/12/24 10:02 12/12/24 10:12 Temperature 98.4 F 98 F Pulse Rate 114 H 126 H Respiratory Rate 20 20 Blood Pressure 110/60 109/66 Pulse Oximetry 95 96 Oxygen Delivery Oxygen Flow Rate Fraction of Inspired Oxygen Intake/Output Intake/Output: Intake & Output 12/09/24 12/10/24 12/11/24 12/12/24 23:59 23:59 23:59 23:59 Intake Total 1844.2 3230.0 1505.8 320 Output Total 4560 2140 2172 1010 Balance -2715.8 1090.0 -666.2 -690 Meds/Results Medications: Active Medications Generic Name Dose Route Start Last Admin Trade Name Freq PRN Reason Stop Dose Admin Acetaminophen 650 mg 12/10/24 04:32 12/11/24 20:18 Acetaminophen 650 Mg Suppository RECTAL 650 mg Q4H PRN Administration Mild Pain (1-3) or Fever Enoxaparin Sodium 40 mg 12/07/24 09:00 12/10/24 09:31 Enoxaparin 40 Mg/0.4 Ml Syringe SUB-Q 40 mg On Hold: 12/10/24 09:42 DAILY CEE Administration Hydromorphone HCl 1 mg 12/06/24 17:15 12/12/24 10:06 Hydromorphone Hcl Inj (*Crx) 1 Mg/Ml Syr IV PUSH 1 mg Q2H PRN Administration Breakthrough Pain Rated 7-10 or NPO Hydromorphone HCl 0.5 mg 12/06/24 17:15 12/11/24 09:30 Hydromorphone Hcl Inj (*Crx) 1 Mg/Ml Syr IV PUSH 0.5 mg Q2H PRN Administration Breakthrough Pain Rated 4-6 or NPO Dextrose 1,000 mls @ 50 mls/hr 12/06/24 17:15 Dextrose 10% IV CONT .Q20H PRN if PN is interrupted Fat Emulsion Intravenous 250 mls @ 20.833 mls/hr 12/06/24 18:00 12/11/24 18:17 Lipids 20% IVPB 20.83 mls/hr Q24H CEE Administration Multivitamins 1.25 ml/ 1,002.5 mls @ 50 mls/hr 12/08/24 10:00 12/11/24 18:16 Multivitamins 1.25 ml/ Amino IV CONT 50 mls/hr Acids/Electrolytes/Dextrose .Q20H3M CEE Administration Protocol Meropenem 1 gm/ Sodium 100 mls @ 200 mls/hr 12/11/24 15:00 12/12/24 05:09 Chloride IVPB 200 mls/hr Q8HR CEE Administration Naloxone HCl 0.1 mg 12/06/24 17:15 Naloxone Hcl 0.4 Mg/Ml Vial IV PUSH Q2M PRN Opiate Reversal Ondansetron HCl 4 mg 12/03/24 17:26 12/09/24 05:23 Ondansetron Inj 4 Mg/2 Ml Vial IV PUSH 4 mg Q4H PRN Administration Nausea And Vomiting Pantoprazole Sodium 40 mg 12/07/24 09:00 12/12/24 09:54 Pantoprazole Sodium Iv 40 Mg Vial IV PUSH 40 mg QAM CEE Administration Phenol 1 spray 12/07/24 10:05 Phenol/Sod Pheno [place] (*Bkc) MUCOUS MEM Q2H PRN Sore Throat Sodium Chloride 10 ml 12/07/24 14:00 12/12/24 05:09 Central Line Flush IV PUSH 10 ml Q8HR CEE Administration Sodium Chloride 10 ml 12/07/24 09:45 12/11/24 00:42 Central Line Flush IV PUSH 10 ml PRN PRN Administration with TPN bag changes Sodium Chloride 20 ml 12/07/24 09:45 12/11/24 05:39 Central Line Flush IV PUSH 20 ml PRN PRN Administration after blood draws Radiology Results: ITS Impressions Renal Ultrasound 12/04/24 21:30 Impression: 1: Unremarkable renal ultrasound. No stones, masses or hydronephrosis. Pulmonary Perfusion Imaging 12/05/24 18:55 IMPRESSION: 1: Normal perfusion scan. Probable shallow lung volumes. Recommend correlation with chest x-ray.. Abdomen/Pelvis CT 12/06/24 09:26 IMPRESSION: 1. 7.2 x 1.8 x 7.9 cm collection of fluid, gas, and oral contrast in right paracolic gutter, consistent with anastomotic leak.. 2. Small volume of ascites. 3. Dilated small bowel, consistent with adynamic ileus. 4. Small left pleural effusion. Chest X-Ray 12/07/24 10:22 IMPRESSION: 1. Bibasilar atelectasis and/or airspace disease. Chest/Abdomen/Pelvis CT 12/10/24 10:51 IMPRESSION: 1. Small amount of likely residual free intraperineal gas and fluid post likely revision of an ileocolic anastomosis and placement of a surgical drain. No evident organized abscess or extraluminal contrast to suggest residual anastomotic leak. 2. Wall thickening along the sigmoid colon consistent with colitis infectious or inflammatory in etiology. Differential would also include residual reactive edema related to the prior anastomotic leak and recent surgery. 3. Volume loss in both lungs with atelectasis at the bilateral lung bases including complete collapse of the right middle lobe. Superimposed pneumonia not excludable but suspicion is low. 4. Chronic mild dilation the common bile duct without evident obstructing stone or mass, likely related to prior cholecystectomy but would correlate with liver function tests. Labs Labs: Laboratory Results - last 24 hr 12/11/24 12/11/24 12/11/24 11:45 16:58 18:39 WBC RBC Hgb Hct MCV MCH MCHC RDW Plt Count MPV Immature Gran % (Auto) Neut % (Auto) Lymph % (Auto) [place] % (Auto) Eos % (Auto) Baso % (Auto) Lymph # (Auto) [place] # (Auto) Eos # (Auto) Baso # (Auto) Abs Immat Gran (auto) Absolute Neuts (auto) Absolute Nucleated RBC Total Counted Neutrophils % (Manual) Band Neutrophils % Lymphocytes % (Manual) Nucleated RBC % Abs Neuts (Manual) Abs Lymphs (Manual) Platelet Estimate Hypochromasia Anisocytosis Schistocytes Sodium Potassium Chloride Carbon Dioxide Anion Gap BUN Creatinine Estim Creat Clear Calc Estimated GFR Glucose POC Capillary Glucose 183 H 173 H Calcium Phosphorus Magnesium Total Bilirubin AST ALT Alkaline Phosphatase Total Protein Albumin Triglycerides 131 Procalcitonin 12/11/24 12/12/24 12/12/24 23:32 05:08 05:09 WBC 17.3 H RBC 3.01 L Hgb 7.6 L Hct 25.6 L MCV 85.0 MCH 25.2 L D MCHC 29.7 L RDW 21.2 H Plt Count 392 H MPV 11.5 H Immature Gran % (Auto) Not Reportable Neut % (Auto) Not Reportable Lymph % (Auto) Not Reportable [place] % (Auto) Not Reportable Eos % (Auto) Not Reportable Baso % (Auto) Not Reportable Lymph # (Auto) Not Reportable [place] # (Auto) Not Reportable Eos # (Auto) Not Reportable Baso # (Auto) Not Reportable Abs Immat Gran (auto) Not Reportable Absolute Neuts (auto) Not Reportable Absolute Nucleated RBC Not Reportable Total Counted 100 Neutrophils % (Manual) 85 H Band Neutrophils % 10 H Lymphocytes % (Manual) 5 L Nucleated RBC % Not Reportable Abs Neuts (Manual) 16.43 H Abs Lymphs (Manual) 0.86 L Platelet Estimate Adequate Hypochromasia 1+ Anisocytosis 1+ Schistocytes None seen Sodium 147 H Potassium 3.2 L Chloride 113 H Carbon Dioxide 32 H Anion Gap 2 L BUN 28 H Creatinine 0.82 Estim Creat Clear Calc Not Reportable Estimated GFR > 60 Glucose 197 H POC Capillary Glucose 173 H Calcium 7.5 L Phosphorus 2.8 Magnesium 2.7 H Total Bilirubin 0.5 AST 101 H ALT 41 H Alkaline Phosphatase 182 H Total Protein 5.5 L Albumin 2.2 L Triglycerides Procalcitonin 0.8 12/12/24 05:55 WBC RBC Hgb Hct MCV MCH MCHC RDW Plt Count MPV Immature Gran % (Auto) Neut % (Auto) Lymph % (Auto) [place] % (Auto) Eos % (Auto) Baso % (Auto) Lymph # (Auto) [place] # (Auto) Eos # (Auto) Baso # (Auto) Abs Immat Gran (auto) Absolute Neuts (auto) Absolute Nucleated RBC Total Counted Neutrophils % (Manual) Band Neutrophils % Lymphocytes % (Manual) Nucleated RBC % Abs Neuts (Manual) Abs Lymphs (Manual) Platelet Estimate Hypochromasia Anisocytosis Schistocytes Sodium Potassium Chloride Carbon Dioxide Anion Gap BUN Creatinine Estim Creat Clear Calc Estimated GFR Glucose POC Capillary Glucose 169 H Calcium Phosphorus Magnesium Total Bilirubin AST ALT Alkaline Phosphatase Total Protein Albumin Triglycerides Procalcitonin
[2024-12-12] MEDS: KCL 40 MEQ/WATER 100 ML 100 ML 25 ML IVPB (11:39)
[2024-12-12] MEDS: AMINO ACIDS 5%/D15W/E-LYTES/CA 1,000 ML with MULTIVITAMINS-12 INJ VIAL 1 1.25 ML, MULTI... 50 ML IV CONT (13:37)
--- NOTE | 2024-12-12 16:37 | PM.IMPN ---
Progress Note: A&P Assessment and Plan (1) History of partial colectomy: Code(s): Z90.49 - Acquired absence of other specified parts of digestive tract Status: Resolved Assessment and Plan: Underwent a hand assisted laparoscopic right colectomy, extensive adhesiolysis, mobilization of hepatic flexure by Dr. May on 11/27/24. Pathology showed adenocarcinoma and two tubular adenomas, with 4/13 lymph nodes positive. - patient presents 6 days postop following AMBER right colectomy for right colon cancer. She has had increased mid to right lower abdominal pain over the past few days and also developed urinary retention. - started on Zosyn on 12/03 CT abdomen/pelvis, 12/03 (7:31): 1. Small amount scattered free intraperitoneal gas and fluid and a few small collections of gas and fluid in the pelvis without well-defined peripheral enhancing wall to suggest organized abscess, likely related to recent right hemicolectomy and ileocolic anastomosis. 2. Persistent wall thickening along the sigmoid colon suggestive of scarring related to prior diverticulitis no significant surrounding inflammatory stranding to elevate suspicion for acute colitis/diverticulitis. 3. Persistent intra and extra hepatic biliary ductal dilation and dilation of the main pancreatic duct which may relate to prior cholecystectomy. Correlate with liver function tests and lipase levels and if clinically indicated could consider MRCP for further evaluation. CT repeated later on 12/03 (15:36): 1. Postoperative ileus with no dilated bowel or transition point and with the majority contrast remaining within the stomach and only a small amount of contrast having extended to the mid to distal jejunum 5 1/2 hours post oral contrast administration. No contrast in the region of the ileocolic anastomosis which precludes assessment for anastomotic leak. 2. No significant change in a nonspecific small amount of scattered free intraperineal gas and fluid in the abdomen and pelvis which could be directly secondary to the recent surgery. 3. Mild diverticulosis along the sigmoid colon where there is chronic wall thickening which could be due to scarring related to chronic diverticulitis versus less likely acute colitis or diverticulitis. Repeat CT 12/06/2024 with 7.2 x 1.8 x 7.9 cm collection of fluid, gas and oral contrast in the right paracolic gutter consistent with anastomotic leak. Small volume of ascites. Dilated small bowel consistent with adynamic ileus and small left pleural effusion. On 12/06/2024 underwent exploratory laparotomy with ileocolic resection with [id number] ileocolic anastomosis, drainage of intra-abdominal abscess, placement of wound VAC measuring 20 cm x 3 cm. Postop, she has had a slow recovery. Leukocytosis worsening, has now developed fever up to 103 ? F morning of 12/11/2024. Patient routinely denies any symptoms. Repeat CT chest abdomen pelvis with contrast on 12/10/2024 demonstrating the following: IMPRESSION: 1. Small amount of likely residual free intraperineal gas and fluid post likely revision of an ileocolic anastomosis and placement of a surgical drain. No evident organized abscess or extraluminal contrast to suggest residual anastomotic leak. 2. Wall thickening along the sigmoid colon consistent with colitis infectious or inflammatory in etiology. Differential would also include residual reactive edema related to the prior anastomotic leak and recent surgery. 3. Volume loss in both lungs with atelectasis at the bilateral lung bases including complete collapse of the right middle lobe. Superimposed pneumonia not excludable but suspicion is low. 4. Chronic mild dilation the common bile duct without evident obstructing stone or mass, likely related to prior cholecystectomy but would correlate with liver function tests. Surgery following, noted dehiscence on 12/11/2024. Drain output looks more purulent today. 12/11/2024: Meropenem to Zosyn. Consult Infectious Disease. 12/12/2024: Check C diff, placed on vancomycin. Mild hypernatremia. The patient appears clinically dry. Check BMP again. NG tube clamped, patient will try clear liquids. Continue meropenem. Blood culture x2 on 11/30, no growth, final. (2) Acute kidney injury: Code(s): N17.9 - Acute kidney failure, unspecified Status: Acute Assessment and Plan: Creatinine 0.99 and BUN 29, GFR 56 upon admission on 12/03. Increased to 1.63, BUN 38, GFR 32. Initially presented with difficulty urinating, did undergo straight catheterization in the ED and now has Limon placed. Nephrology following, multifactorial etiology including contrast exposure, ARB use prior to admission, hypotension, urinary retention, possible infection. Improving, ultrasound completed, urine electrolytes demonstrate pre renal cause, CPK normal. Hold losartan. Continue TPN. Limon remains, to remove after surgical issues are resolved. Nephrology signed off. (3) Urinary retention: Code(s): R33.9 - Retention of urine, unspecified Status: Acute Assessment and Plan: - reporting post-operative constipation, last BM was 4+ days prior to admission on 12/03, may be contributing to her retention. Now she has many other issues since this admission. Is a mobile. - CT additionally showed 7 x 3 cm fluid collection in the pelvis situated between the uterus and the bladder with some mass effect on the bladder. General Surgery aware of issue, however it is in a location that is difficult to access and not a well organized collection, could also be contributing to retention. -Limon catheter placed on 12/03/2024. (4) Hypertension: Qualifiers: Hypertension type: primary hypertension Qualified Code(s): I10 - Essential (primary) hypertension Code(s): I10 - Essential (primary) hypertension Status: Chronic Assessment and Plan: -[employer] losartan 25 mg p.o. q.day on hold. Continue to hold during her acute surgical issues. Blood pressure at goal otherwise. (5) Acute blood loss anemia: Code(s): D62 - Acute posthemorrhagic anemia Status: Acute Assessment and Plan: On admission her hemoglobin 10.3 which is around her baseline. She has post hemorrhagic anemia, however stable. Using pharmacological DVT prophylaxis on a [id number] basis. Monitor for overt bleeding. (6) Acute hypoxemic respiratory failure: Code(s): J96.01 - Acute respiratory failure with hypoxia Status: Acute Assessment and Plan: Around the time of her surgery she was placed on 1 L nasal cannula. She is still on 1 or 2 L. decreased breath sounds bilateral bases. CT scan on 12/10/2024 demonstrates significant atelectasis on both sides. She has no shortness of breath or cough. Her fever and leukocytosis more likely due to intra-abdominal/pelvic process. Infectious Disease consulted. Continue EzPAP and incentive spirometer. Mobilize with therapy as soon as possible. Plan Per surgery, bowel rest and TPN. Limon catheter in place, NG tube in place. Protonix 40 mg IV q.a.m. Patient is deconditioned. PT/OT as appropriate per General surgery team. She has atelectasis, EzPAP and incentive spirometer ordered. She does not often using incentive spirometer encouraged her routinely to continue doing so. Showed her the proper way to use the device. Wound care per unit protocol and surgery. DVT Prophylaxis: SCDs only Lovenox on hold due to anemia and possible surgical intervention again. Patient wishes to be full code. Prior to admission she lives at home, she is independent. Time Spent With Patient Time with patient: Greater than 35 minutes Subjective Date/time seen: 12/12/24 16:37 Interval history: No major acute overnight events. As usual, she has no complaints. Review of Systems Review of Systems: All systems reviewed & are unremarkable except as noted in HPI and below (Subjective) Exam Const: General: comfortable and no acute distress HENMT: Mouth: Yes dry mucous membranes Eyes: Pupils: Equal, round and reactive pupils present Neck: Neck: supple Resp: Effort & Inspection: normal respiratory effort Other: Decreased breath sounds bilateral bases Cardio: Rate: regular rate Rhythm: regular rhythm Heart sounds: no murmurs GI: GI Palp: Yes Soft to palpation and No Tenderness to palpation present (GI) Neuro: Motor exam (neuro): 5/5 motor strength present throughout Extrem: Other: Trace pitting edema bilateral lower extremities below the knees Objective Data Vital Signs Vital Signs: Vital Signs - 24 hr 12/11/24 17:15 12/11/24 19:54 12/11/24 21:08 Temperature 100.5 F H 100.1 F H Pulse Rate 129 H 126 H 126 H Respiratory Rate 22 H 20 20 Blood Pressure 128/70 114/56 L Pulse Oximetry 95 94 94 Oxygen Delivery Nasal Cannula Oxygen Flow Rate 2 Fraction of Inspired Oxygen 12/11/24 21:08 12/12/24 00:00 12/12/24 00:00 Temperature 98.8 F Pulse Rate 126 H 116 H 117 H Respiratory Rate 20 Blood Pressure 105/58 L Pulse Oximetry 95 Oxygen Delivery Oxygen Flow Rate Fraction of Inspired Oxygen 12/12/24 03:40 12/12/24 04:00 12/12/24 09:13 Temperature 98.1 F Pulse Rate 120 H 118 H Respiratory Rate 20 Blood Pressure 115/60 Pulse Oximetry 95 94 Oxygen Delivery Nasal Cannula Oxygen Flow Rate 2 Fraction of Inspired Oxygen 12/12/24 09:54 12/12/24 09:54 12/12/24 10:02 Temperature 98.4 F Pulse Rate 126 H 121 H 114 H Respiratory Rate 20 20 Blood Pressure 110/60 Pulse Oximetry 96 95 Oxygen Delivery Nasal Cannula Oxygen Flow Rate 2 Fraction of Inspired Oxygen 12/12/24 10:12 12/12/24 11:47 12/12/24 12:00 Temperature 98 F 98.7 F Pulse Rate 126 H 124 H 124 H Respiratory Rate 20 20 Blood Pressure 109/66 106/61 Pulse Oximetry 96 95 Oxygen Delivery Oxygen Flow Rate Fraction of Inspired Oxygen 12/12/24 15:53 Temperature 99.4 F Pulse Rate 125 H Respiratory Rate 20 Blood Pressure 102/62 Pulse Oximetry 96 Oxygen Delivery Oxygen Flow Rate Fraction of Inspired Oxygen Intake/Output Intake/Output: Intake & Output 12/09/24 12/10/24 12/11/24 12/12/24 23:59 23:59 23:59 23:59 Intake Total 1844.2 3230.0 1505.8 1727.5 Output Total 4560 2140 2172 1010 Balance -2715.8 1090.0 -666.2 717.5 Meds/Results Medications: Active Medications Generic Name Dose Route Start Last Admin Trade Name Freq PRN Reason Stop Dose Admin Acetaminophen 650 mg 12/10/24 04:32 12/11/24 20:18 Acetaminophen 650 Mg Suppository RECTAL 650 mg Q4H PRN Administration Mild Pain (1-3) or Fever Enoxaparin Sodium 40 mg 12/07/24 09:00 12/10/24 09:31 Enoxaparin 40 Mg/0.4 Ml Syringe SUB-Q 40 mg DAILY CEE Administration Hydromorphone HCl 1 mg 12/06/24 17:15 12/12/24 10:06 Hydromorphone Hcl Inj (*Crx) 1 Mg/Ml Syr IV PUSH 1 mg Q2H PRN Administration Breakthrough Pain Rated 7-10 or NPO Hydromorphone HCl 0.5 mg 12/06/24 17:15 12/11/24 09:30 Hydromorphone Hcl Inj (*Crx) 1 Mg/Ml Syr IV PUSH 0.5 mg Q2H PRN Administration Breakthrough Pain Rated 4-6 or NPO Dextrose 1,000 mls @ 50 mls/hr 12/06/24 17:15 Dextrose 10% IV CONT .Q20H PRN if PN is interrupted Fat Emulsion Intravenous 250 mls @ 20.833 mls/hr 12/06/24 18:00 12/11/24 18:17 Lipids 20% IVPB 20.83 mls/hr Q24H CEE Administration Multivitamins 1.25 ml/ 1,002.5 mls @ 50 mls/hr 12/08/24 10:00 12/12/24 13:37 Multivitamins 1.25 ml/ Amino IV CONT 50 mls/hr Acids/Electrolytes/Dextrose .Q20H3M CEE Administration Protocol Meropenem 1 gm/ Sodium 100 mls @ 200 mls/hr 12/11/24 15:00 12/12/24 13:49 Chloride IVPB Infused Q8HR CEE Infusion Naloxone HCl 0.1 mg 12/06/24 17:15 Naloxone Hcl 0.4 Mg/Ml Vial IV PUSH Q2M PRN Opiate Reversal Ondansetron HCl 4 mg 12/03/24 17:26 12/09/24 05:23 Ondansetron Inj 4 Mg/2 Ml Vial IV PUSH 4 mg Q4H PRN Administration Nausea And Vomiting Pantoprazole Sodium 40 mg 12/07/24 09:00 12/12/24 09:54 Pantoprazole Sodium Iv 40 Mg Vial IV PUSH 40 mg QAM CEE Administration Phenol 1 spray 12/07/24 10:05 Phenol/Sod Pheno [place] (*Bkc) MUCOUS MEM Q2H PRN Sore Throat Sodium Chloride 10 ml 12/07/24 14:00 12/12/24 13:24 Central Line Flush IV PUSH 10 ml Q8HR CEE Administration Sodium Chloride 10 ml 12/07/24 09:45 12/11/24 00:42 Central Line Flush IV PUSH 10 ml PRN PRN Administration with TPN bag changes Sodium Chloride 20 ml 12/07/24 09:45 12/11/24 05:39 Central Line Flush IV PUSH 20 ml PRN PRN Administration after blood draws Vancomycin HCl 125 mg 12/12/24 14:15 Vancomycin Hcl 125 Mg Oral Capsule PO Q12HR [facility] Radiology Results: ITS Impressions Renal Ultrasound 12/04/24 21:30 Impression: 1: Unremarkable renal ultrasound. No stones, masses or hydronephrosis. Pulmonary Perfusion Imaging 12/05/24 18:55 IMPRESSION: 1: Normal perfusion scan. Probable shallow lung volumes. Recommend correlation with chest x-ray.. Abdomen/Pelvis CT 12/06/24 09:26 IMPRESSION: 1. 7.2 x 1.8 x 7.9 cm collection of fluid, gas, and oral contrast in right paracolic gutter, consistent with anastomotic leak.. 2. Small volume of ascites. 3. Dilated small bowel, consistent with adynamic ileus. 4. Small left pleural effusion. Chest X-Ray 12/07/24 10:22 IMPRESSION: 1. Bibasilar atelectasis and/or airspace disease. Chest/Abdomen/Pelvis CT 12/10/24 10:51 IMPRESSION: 1. Small amount of likely residual free intraperineal gas and fluid post likely revision of an ileocolic anastomosis and placement of a surgical drain. No evident organized abscess or extraluminal contrast to suggest residual anastomotic leak. 2. Wall thickening along the sigmoid colon consistent with colitis infectious or inflammatory in etiology. Differential would also include residual reactive edema related to the prior anastomotic leak and recent surgery. 3. Volume loss in both lungs with atelectasis at the bilateral lung bases including complete collapse of the right middle lobe. Superimposed pneumonia not excludable but suspicion is low. 4. Chronic mild dilation the common bile duct without evident obstructing stone or mass, likely related to prior cholecystectomy but would correlate with liver function tests. Labs Labs: Laboratory Results - last 24 hr 12/11/24 12/11/24 12/11/24 16:58 18:39 23:32 WBC RBC Hgb Hct MCV MCH MCHC RDW Plt Count MPV Immature Gran % (Auto) Neut % (Auto) Lymph % (Auto) [place] % (Auto) Eos % (Auto) Baso % (Auto) Lymph # (Auto) [place] # (Auto) Eos # (Auto) Baso # (Auto) Abs Immat Gran (auto) Absolute Neuts (auto) Absolute Nucleated RBC Total Counted Neutrophils % (Manual) Band Neutrophils % Lymphocytes % (Manual) Nucleated RBC % Abs Neuts (Manual) Abs Lymphs (Manual) Platelet Estimate Hypochromasia Anisocytosis Schistocytes Sodium Potassium Chloride Carbon Dioxide Anion Gap BUN Creatinine Estim Creat Clear Calc Estimated GFR Glucose POC Capillary Glucose 173 H 173 H Calcium Phosphorus Magnesium Total Bilirubin AST ALT Alkaline Phosphatase Total Protein Albumin Triglycerides 131 Procalcitonin 12/12/24 12/12/24 12/12/24 05:08 05:09 05:55 WBC 17.3 H RBC 3.01 L Hgb 7.6 L Hct 25.6 L MCV 85.0 MCH 25.2 L D MCHC 29.7 L RDW 21.2 H Plt Count 392 H MPV 11.5 H Immature Gran % (Auto) Not Reportable Neut % (Auto) Not Reportable Lymph % (Auto) Not Reportable [place] % (Auto) Not Reportable Eos % (Auto) Not Reportable Baso % (Auto) Not Reportable Lymph # (Auto) Not Reportable [place] # (Auto) Not Reportable Eos # (Auto) Not Reportable Baso # (Auto) Not Reportable Abs Immat Gran (auto) Not Reportable Absolute Neuts (auto) Not Reportable Absolute Nucleated RBC Not Reportable Total Counted 100 Neutrophils % (Manual) 85 H Band Neutrophils % 10 H Lymphocytes % (Manual) 5 L Nucleated RBC % Not Reportable Abs Neuts (Manual) 16.43 H Abs Lymphs (Manual) 0.86 L Platelet Estimate Adequate Hypochromasia 1+ Anisocytosis 1+ Schistocytes None seen Sodium 147 H Potassium 3.2 L Chloride 113 H Carbon Dioxide 32 H Anion Gap 2 L BUN 28 H Creatinine 0.82 Estim Creat Clear Calc Not Reportable Estimated GFR > 60 Glucose 197 H POC Capillary Glucose 169 H Calcium 7.5 L Phosphorus 2.8 Magnesium 2.7 H Total Bilirubin 0.5 AST 101 H ALT 41 H Alkaline Phosphatase 182 H Total Protein 5.5 L Albumin 2.2 L Triglycerides Procalcitonin 0.8
[2024-12-12] MEDS: VANCOMYCIN HCL 125 MG ORAL CAPSULE PO ×2 (17:06→20:48)
[2024-12-12] MEDS: FAT EMULSIONS IV 20% 250 ML 20.83 ML IVPB (17:06)
[2024-12-12 18:15] LABS: Anion Gap 3 mmol/L (4-12); Blood Urea Nitrogen 32 mg/dL (7-17); Calcium 7.4 mg/dL (8.4-10.2); Carbon Dioxide 31 mmol/L (22-30); Chloride 113 mmol/L (98-107); Estimated Glomerular Filt Rate > 60; Glucose 237 mg/dL (65-110); Potassium 3.8 mmol/L (3.4-5.0); Sodium 147 mmol/L (137-145)
[2024-12-12 19:13] LABS: Toxigenic C. Diff POSITIVE (NEGATIVE)
[2024-12-13] VITALS (24 sets, daily range): BP systolic 97–113; BP diastolic 52–74; PULSE 89–121; RESP 18–32; TEMP 36.3–37.3; O2SAT 93–100
[2024-12-13] MEDS: CENTRAL LINE FLUSH 10 ML IV PUSH ×3 (05:26→22:10)
[2024-12-13] MEDS: MEROPENEM 1 GM in SODIUM CHLORIDE 0.9% IV 100 ML 200 ML IVPB ×3 (05:27→22:09)
[2024-12-13 07:13] LABS: Anion Gap -2 mmol/L (4-12); Blood Urea Nitrogen 30 mg/dL (7-17); Calcium 7.4 mg/dL (8.4-10.2); Carbon Dioxide 33 mmol/L (22-30); Chloride 113 mmol/L (98-107); Estimated Glomerular Filt Rate > 60; Glucose 219 mg/dL (65-110); Potassium 3.5 mmol/L (3.4-5.0); Sodium 144 mmol/L (137-145)
[2024-12-13 08:29] LABS: Hematocrit 24.6 % (37.0-47.0); Hemoglobin 7.2 g/dL (12.0-15.0); Mean Corpuscular HGB Conc 29.3 g/dl (32-36); Mean Corpuscular Hemoglobin 24.9 pg (26-34); Mean Corpuscular Volume 85.1 fl (80-100); Platelet Count Result 381 k/mm3 (150-375); Red Blood Count 2.89 M/mm3 (4.2-5.4); White Blood Count 11.4 K/mm3 (4.5-10.0)
[2024-12-13] MEDS: PANTOPRAZOLE SODIUM IV 40 MG VIAL IV PUSH (08:45)
[2024-12-13] MEDS: ENOXAPARIN 40 MG/0.4 ML SYRINGE SUB-Q (08:46)
[2024-12-13] MEDS: VANCOMYCIN HCL 125 MG ORAL CAPSULE PO ×2 (08:46→12:13)
[2024-12-13] MEDS: HYDROmorphone HCL INJ (*CRX) 1 MG/ML SYR IV PUSH (09:09)
--- NOTE | 2024-12-13 09:54 | PC.NURSE ---
RN called MD Butler about patient's condition.
--- NOTE | 2024-12-13 10:30 | PC.NURSE ---
Patient off floor with CT.
--- NOTE | 2024-12-13 10:53 | PC.NURSE ---
Patient back on floor from CT scan.
--- NOTE | 2024-12-13 11:30 | P.PNGS_ITS ---
Progress Note: A&P Assessment and Plan (1) Ileocolic anastomotic leak: Code(s): K91.89 - Other postprocedural complications and disorders of digestive system Status: Acute Assessment and Plan: * Upon exam this morning, output from JUHI drain appears to be bilious. Copious amounts of this from drain overnight. Wound VAC changed with wound care nurses at bedside. Area of fascial dehiscence that was present on Monday appears to be further spread open. No obvious evisceration. Repeat CT scan with PO contrast was ordered to evaluate for any new fistula, abscess, or other acute process. * Patient had altered mental status this morning, as well as tachycardia and tachypnea. CTA of the brain and chest were both ordered by hospitalist team. * Patient was febrile again yesterday evening. WBC down to 11.4. ID consulted yesterday and recommended continuing Meropenem and enteral vancomycin. * Patient continues to have regular bowel movements. Tolerated clamping trial and clear liquids well, but due to suspicious findings on exam this morning we will continue to leave NG tube in at this time. * Continue PT/OT, up to chair * Will plan for next wound vac change on Monday. (2) Intra-abdominal abscess post-procedure: Code(s): T81.43XA - Infection following a procedure, organ and space surgical site, initial encounter; K65.1 - Peritoneal abscess Status: Acute Assessment and Plan: * Bilious thick fluid in JUHI drain today. Continue to monitor output. (3) Acute blood loss anemia: Code(s): D62 - Acute posthemorrhagic anemia Status: Acute Assessment and Plan: Lovenox being held today. (4) Adenocarcinoma of colon: Code(s): C18.9 - Malignant neoplasm of colon, unspecified Status: Acute Plan Discussed patient's case and plan of care with Dr. Burch. Subjective Subjective Date/Time Seen: 12/13/24 11:30 Patient reports: tolerating liquids well and bowel movement Interval history: Patient has been tolerating clear liquids well without nausea or vomiting. NG clamped. However, patient reportedly told the nurse that she feels off like something bad is going to happen today. Her JUHI drain has thick green bilious fluid today. Reportedly, had copious amounts of this fluid out of JUHI overnight. Low grade fever again overnight. Tachycardic and tachypneic. Exam Const: General: comfortable and no acute distress GI: GI Palp: No Tenderness to palpation present (GI) Other: Wound vac dressing changed with wound care nurses at bedside today. Area of fascial dehiscence now appears further dehisced. No evisceration or obvious bowel visible. Drainage in canister appears serosanguineous. No signs of feculent drainage. JUHI drain with 80 ml nonodorous biliouos dark green thick fluid. Reportedly, copious amounts of this present overnight. Objective Data Vital Signs Vital Signs: Vital Signs - 24 hr 12/12/24 11:47 12/12/24 12:00 12/12/24 15:53 Temperature 98.7 F 99.4 F Pulse Rate 124 H 124 H 125 H Respiratory Rate 20 20 Blood Pressure 106/61 102/62 Pulse Oximetry 95 96 Oxygen Delivery Oxygen Flow Rate 12/12/24 17:40 12/12/24 20:00 12/12/24 20:00 Temperature 99.7 F H Pulse Rate 115 H 120 H Respiratory Rate 20 Blood Pressure 101/61 Pulse Oximetry 95 98 Oxygen Delivery Nasal Cannula Oxygen Flow Rate 2 12/12/24 21:44 12/13/24 00:00 12/13/24 04:00 Temperature Pulse Rate 120 H 119 H 121 H Respiratory Rate Blood Pressure Pulse Oximetry Oxygen Delivery Oxygen Flow Rate 12/13/24 04:00 12/13/24 08:46 12/13/24 08:54 Temperature 98.4 F 99.1 F Pulse Rate 116 H 120 H Respiratory Rate 18 18 Blood Pressure 97/54 L 104/64 Pulse Oximetry 95 97 97 Oxygen Delivery Nasal Cannula Oxygen Flow Rate 2 12/13/24 08:54 12/13/24 09:12 Temperature Pulse Rate 120 H Respiratory Rate 28 H Blood Pressure Pulse Oximetry Oxygen Delivery Oxygen Flow Rate Intake/Output Intake/Output: Intake & Output 12/10/24 12/11/24 12/12/24 12/13/24 23:59 23:59 23:59 23:59 Intake Total 3230.0 1505.8 2077.5 25 Output Total 2140 2172 2035 760 Balance 1090.0 -666.2 42.5 -735 Meds/Results Medications: Active Medications Generic Name Dose Route Start Last Admin Trade Name Freq PRN Reason Stop Dose Admin Acetaminophen 650 mg 12/10/24 04:32 12/11/24 20:18 Acetaminophen 650 Mg Suppository RECTAL 650 mg Q4H PRN Administration Mild Pain (1-3) or Fever Enoxaparin Sodium 40 mg 12/07/24 09:00 12/13/24 08:46 Enoxaparin 40 Mg/0.4 Ml Syringe SUB-Q 40 mg On Hold: 12/13/24 10:04 DAILY CEE Administration Hydromorphone HCl 1 mg 12/06/24 17:15 12/13/24 09:09 Hydromorphone Hcl Inj (*Crx) 1 Mg/Ml Syr IV PUSH 1 mg Q2H PRN Administration Breakthrough Pain Rated 7-10 or NPO Hydromorphone HCl 0.5 mg 12/06/24 17:15 12/11/24 09:30 Hydromorphone Hcl Inj (*Crx) 1 Mg/Ml Syr IV PUSH 0.5 mg Q2H PRN Administration Breakthrough Pain Rated 4-6 or NPO Dextrose 1,000 mls @ 50 mls/hr 12/06/24 17:15 Dextrose 10% IV CONT .Q20H PRN if PN is interrupted Fat Emulsion Intravenous 250 mls @ 20.833 mls/hr 12/06/24 18:00 12/12/24 17:06 Lipids 20% IVPB 20.83 mls/hr Q24H CEE Administration Multivitamins 1.25 ml/ 1,002.5 mls @ 50 mls/hr 12/08/24 10:00 12/12/24 13:37 Multivitamins 1.25 ml/ Amino IV CONT 50 mls/hr Acids/Electrolytes/Dextrose .Q20H3M CEE Administration Protocol Meropenem 1 gm/ Sodium 100 mls @ 200 mls/hr 12/11/24 15:00 12/13/24 05:27 Chloride IVPB 200 mls/hr Q8HR CEE Administration Miscellaneous Information 1 each 12/13/24 00:01 Please Renew Tpn. Per [employer] Procedure, It Will Discontinue If Not Renewed XX 01/12/25 00:00 CLARIFY CEE Naloxone HCl 0.1 mg 12/06/24 17:15 Naloxone Hcl 0.4 Mg/Ml Vial IV PUSH Q2M PRN Opiate Reversal Ondansetron HCl 4 mg 12/03/24 17:26 12/09/24 05:23 Ondansetron Inj 4 Mg/2 Ml Vial IV PUSH 4 mg Q4H PRN Administration Nausea And Vomiting Pantoprazole Sodium 40 mg 12/07/24 09:00 12/13/24 08:45 Pantoprazole Sodium Iv 40 Mg Vial IV PUSH 40 mg QAM CEE Administration Phenol 1 spray 12/07/24 10:05 Phenol/Sod Pheno [place] (*Bkc) MUCOUS MEM Q2H PRN Sore Throat Sodium Chloride 10 ml 12/07/24 14:00 12/13/24 05:26 Central Line Flush IV PUSH 10 ml Q8HR CEE Administration Sodium Chloride 10 ml 12/07/24 09:45 12/11/24 00:42 Central Line Flush IV PUSH 10 ml PRN PRN Administration with TPN bag changes Sodium Chloride 20 ml 12/07/24 09:45 12/11/24 05:39 Central Line Flush IV PUSH 20 ml PRN PRN Administration after blood draws Vancomycin HCl 125 mg 12/13/24 08:35 12/13/24 08:46 Vancomycin Hcl 125 Mg Oral Capsule PO 125 mg Q6HR CEE Administration Radiology Results: ITS Impressions Renal Ultrasound 12/04/24 21:30 Impression: 1: Unremarkable renal ultrasound. No stones, masses or hydronephrosis. Pulmonary Perfusion Imaging 12/05/24 18:55 IMPRESSION: 1: Normal perfusion scan. Probable shallow lung volumes. Recommend correlation with chest x-ray.. Abdomen/Pelvis CT 12/06/24 09:26 IMPRESSION: 1. 7.2 x 1.8 x 7.9 cm collection of fluid, gas, and oral contrast in right paracolic gutter, consistent with anastomotic leak.. 2. Small volume of ascites. 3. Dilated small bowel, consistent with adynamic ileus. 4. Small left pleural effusion. Chest X-Ray 12/07/24 10:22 IMPRESSION: 1. Bibasilar atelectasis and/or airspace disease. Chest/Abdomen/Pelvis CT 12/10/24 10:51 IMPRESSION: 1. Small amount of likely residual free intraperineal gas and fluid post likely revision of an ileocolic anastomosis and placement of a surgical drain. No evident organized abscess or extraluminal contrast to suggest residual anastomotic leak. 2. Wall thickening along the sigmoid colon consistent with colitis infectious or inflammatory in etiology. Differential would also include residual reactive edema related to the prior anastomotic leak and recent surgery. 3. Volume loss in both lungs with atelectasis at the bilateral lung bases including complete collapse of the right middle lobe. Superimposed pneumonia not excludable but suspicion is low. 4. Chronic mild dilation the common bile duct without evident obstructing stone or mass, likely related to prior cholecystectomy but would correlate with liver function tests. Labs Labs: Laboratory Results - last 24 hr 12/12/24 12/12/24 12/13/24 16:53 17:46 06:02 WBC RBC Hgb Hct MCV MCH MCHC RDW Plt Count MPV Sodium 147 H Potassium 3.8 Chloride 113 H Carbon Dioxide 31 H Anion Gap 3 L BUN 32 H Creatinine 0.80 Estim Creat Clear Calc Not Reportable Estimated GFR > 60 Glucose 237 H POC Capillary Glucose 201 H 199 H Calcium 7.4 L Phosphorus C. difficile (PCR) Positive A* 12/13/24 12/13/24 06:39 08:18 WBC 11.4 H RBC 2.89 L Hgb 7.2 L Hct 24.6 L MCV 85.1 MCH 24.9 L MCHC 29.3 L RDW 21.2 H Plt Count 381 H MPV 12.1 H Sodium 144 Potassium 3.5 Chloride 113 H Carbon Dioxide 33 H Anion Gap -2 L BUN 30 H Creatinine 0.85 Estim Creat Clear Calc Not Reportable Estimated GFR > 60 Glucose 219 H POC Capillary Glucose Calcium 7.4 L Phosphorus 2.3 L C. difficile (PCR)
[2024-12-13 11:59] LABS: Alveolar/Arterial O2 Gradient 82.5 mmHg; Carboxyhemoglobin 0.1 % THb (0-2.0); Fractional Inspired Oxygen 28 %; HCO3 ABG 28.3 mEq/l (22.0-26.0); Methemoglobin ABG 0.0 %THb (0-1.5); Oxygen Content ABG 11.1 %vol (16.0-22.0); Oxygen Saturation ABG 95.7 % (95.0-100.0); PCO2 ABG 37.8 mmHg (35.0-45.0); PO2 ABG 72.5 mmHg (80.0-100.0); PO2 FiO2 Ratio Arterial Blood 2.59 %; Reduced Hemoglobin 5.9 %THb (0-5.0)
[2024-12-13 12:01] LABS: Liters per Minute 2.0 LPM; Modified Allen's Test Pass; Site Drawn LEFT RADIAL
--- NOTE | 2024-12-13 12:04 | PC.NURSE ---
RN and tech noticed patient rapidly breathing quicker. RN notified RR team. Patient remains on floor.
[2024-12-13] MEDS: AMINO ACIDS 5%/D15W/E-LYTES/CA 1,000 ML with MULTIVITAMINS-12 INJ VIAL 1 1.25 ML, MULTI... 50 ML IV CONT (12:13)
--- NOTE | 2024-12-13 12:13 | PCNFU ---
Nutrition Follow-Up Complete: Inadequate energy intake related to altered GI function as evidenced by need for full TPN goal: Meet estimated nutrition needs Patient will continue current goal. Pt current nutrition is Clear liquids/Clinimix 5/15 at 50 ml/hr. Last recorded weight is 64.2 kg, down from 68.9 kg on admit. Bowel Motility: Last reported BM 12/13 Labs Reviewed:BUN 30, Glu 219, Alb 2.2, Hct 14.6, Hgb 7.2 Meds Noted: Zofran, Clinimix E 5/15 at 50 ml/hr with 250 ml 20% Lipid Emulsion. Skin: wound vac-abdomen Additional Notes: Patient remains on TPN providing 1352 kcal/60 gm protein meeting 79% kcal needs and 87% protein needs. Tolerating clear liquids. Plans for CT scan with contrast today, JUHI drain having bilious. Wound Vac changed 12/13. Agree with diet orders at this time. Monitoring TPN tolerance, labs, weights, GI function, diet advancement, plan of care Follow up Monday/Monday.
--- NOTE | 2024-12-13 12:24 | WPDINFPN2 ---
Progress Note: A&P Assessment and Plan (1) Intra-abdominal abscess post-procedure: Code(s): T81.43XA - Infection following a procedure, organ and space surgical site, initial encounter; K65.1 - Peritoneal abscess Status: Acute Assessment and Plan: As below Plan Assessment and plan (1) Intra-abdominal abscess post-procedure: Code(s): T81.43XA - Infection following a procedure, organ and space surgical site, initial encounter; K65.1 - Peritoneal abscess Status: Acute Assessment and Plan: -Abscess secondary to ileocolic anastomotic leak -Manaagement as per surgical service (2) Ileocolic anastomotic leak: Code(s): K91.89 - Other postprocedural complications and disorders of digestive system Status: Acute Assessment and Plan: -Management as per surgical service (3) History of partial colectomy: Code(s): Z90.49 - Acquired absence of other specified parts of digestive tract Status: Resolved (4) Adenocarcinoma of colon: Code(s): C18.9 - Malignant neoplasm of colon, unspecified Status: Acute Assessment and Plan: -Management as per primary service (5) Cancer of right colon: Onset Date: ~10/2024 Code(s): C18.2 - Malignant neoplasm of ascending colon Status: Acute Assessment and Plan: -Management as per primary service (6) C. difficile diarrhea: Onset Date: ~04/01/24 Code(s): A04.72 - Enterocolitis due to Clostridium difficile, not specified as recurrent Status: Inactive Assessment and Plan: -Patient has history of C.difficile infection starting in March 2024 -Has new diarrhea as of 12/12/24 Plan -Continue Meropenem day 3 for empiric treatment of abdominal abscess secondary to ileocolic anastomotic leak -Continue enteral Vancomycin day 2 for treatment of recurrent C.difficile infection -Management of ileocolonic anastomotic leak as per surgical service -Continue supportive measures Discussed with patient. All questions answered Patient was seen via video telehealth consultation with the assistance of staff. Chart, data, and patient independently reviewed. Patient was located at [facility] while I was located in my [place] office. Received verbal consent from patient. Subjective Date/time seen: 12/13/24 12:24 Interval history: Patient afebrile. Rapid response called earlier today. Patient noted to have increased abdominal pain and new bilious output from RLQ drain. CTA chest negative for PE and CT abdomen notable for ongoing anastomotic bowel leak. C.difficile PCR is positive. Leukocytosis resolving. Review of Systems Review of Systems: All systems reviewed & are unremarkable except as noted in HPI and below Exam Narrative: Gen: alart, fatigued HEENT: NG tube in place Pulm: minmal conversational dyspnea Abd: distended, soft, wound vac in place; RLQ drain with new bilious output : urinary catheterin place Ext: peripheral edema Lines: RUE PICC intact Objective Data Vital Signs Vital Signs: Vital Signs - 24 hr 12/12/24 15:53 12/12/24 17:40 12/12/24 20:00 Temperature 99.4 F Pulse Rate 125 H 115 H Respiratory Rate 20 Blood Pressure 102/62 Pulse Oximetry 96 95 Oxygen Delivery Nasal Cannula Oxygen Flow Rate 2 12/12/24 20:00 12/12/24 21:44 12/13/24 00:00 Temperature 99.7 F H Pulse Rate 120 H 120 H 119 H Respiratory Rate 20 Blood Pressure 101/61 Pulse Oximetry 98 Oxygen Delivery Oxygen Flow Rate 12/13/24 04:00 12/13/24 04:00 12/13/24 08:46 Temperature 98.4 F 99.1 F Pulse Rate 121 H 116 H 120 H Respiratory Rate 18 18 Blood Pressure 97/54 L 104/64 Pulse Oximetry 95 97 Oxygen Delivery Oxygen Flow Rate 12/13/24 08:54 12/13/24 08:54 12/13/24 09:12 Temperature Pulse Rate 120 H Respiratory Rate 28 H Blood Pressure Pulse Oximetry 97 Oxygen Delivery Nasal Cannula Oxygen Flow Rate 2 12/13/24 11:50 12/13/24 11:53 12/13/24 12:08 Temperature Pulse Rate 119 H 118 H Respiratory Rate 32 H 28 H 20 Blood Pressure 111/67 111/67 Pulse Oximetry 99 99 Oxygen Delivery Nasal Cannula Oxygen Flow Rate 2 Intake/Output Intake/Output: Intake & Output 12/10/24 12/11/24 12/12/24 12/13/24 23:59 23:59 23:59 23:59 Intake Total 3230.0 1505.8 2077.5 1027.5 Output Total 2140 2172 2035 910 Balance 1090.0 -666.2 42.5 117.5 Meds/Results Medications: Active Medications Generic Name Dose Route Start Last Admin Trade Name Freq PRN Reason Stop Dose Admin Acetaminophen 650 mg 12/10/24 04:32 12/11/24 20:18 Acetaminophen 650 Mg Suppository RECTAL 650 mg Q4H PRN Administration Mild Pain (1-3) or Fever Enoxaparin Sodium 40 mg 12/07/24 09:00 12/13/24 08:46 Enoxaparin 40 Mg/0.4 Ml Syringe SUB-Q 40 mg On Hold: 12/13/24 10:04 DAILY CEE Administration Hydromorphone HCl 1 mg 12/06/24 17:15 12/13/24 09:09 Hydromorphone Hcl Inj (*Crx) 1 Mg/Ml Syr IV PUSH 1 mg Q2H PRN Administration Breakthrough Pain Rated 7-10 or NPO Hydromorphone HCl 0.5 mg 12/06/24 17:15 12/11/24 09:30 Hydromorphone Hcl Inj (*Crx) 1 Mg/Ml Syr IV PUSH 0.5 mg Q2H PRN Administration Breakthrough Pain Rated 4-6 or NPO Dextrose 1,000 mls @ 50 mls/hr 12/06/24 17:15 Dextrose 10% IV CONT .Q20H PRN if PN is interrupted Fat Emulsion Intravenous 250 mls @ 20.833 mls/hr 12/06/24 18:00 12/12/24 17:06 Lipids 20% IVPB 20.83 mls/hr Q24H CEE Administration Multivitamins 1.25 ml/ 1,002.5 mls @ 50 mls/hr 12/08/24 10:00 12/13/24 12:13 Multivitamins 1.25 ml/ Amino IV CONT 50 mls/hr Acids/Electrolytes/Dextrose .Q20H3M CEE Administration Protocol Meropenem 1 gm/ Sodium 100 mls @ 200 mls/hr 12/11/24 15:00 12/13/24 05:27 Chloride IVPB 200 mls/hr Q8HR CEE Administration Miscellaneous Information 1 each 12/13/24 00:01 12/13/24 12:14 Please Renew Tpn. Per [employer] Procedure, It Will Discontinue If Not Renewed XX 01/12/25 00:00 Not Given CLARIFY CEE Naloxone HCl 0.1 mg 12/06/24 17:15 Naloxone Hcl 0.4 Mg/Ml Vial IV PUSH Q2M PRN Opiate Reversal Ondansetron HCl 4 mg 12/03/24 17:26 12/09/24 05:23 Ondansetron Inj 4 Mg/2 Ml Vial IV PUSH 4 mg Q4H PRN Administration Nausea And Vomiting Pantoprazole Sodium 40 mg 12/07/24 09:00 12/13/24 08:45 Pantoprazole Sodium Iv 40 Mg Vial IV PUSH 40 mg QAM CEE Administration Phenol 1 spray 12/07/24 10:05 Phenol/Sod Pheno [place] [facility] (*Bkc) MUCOUS MEM Q2H PRN Sore Throat Sodium Chloride 10 ml 12/07/24 14:00 12/13/24 05:26 Central Line Flush IV PUSH 10 ml Q8HR CEE Administration Sodium Chloride 10 ml 12/07/24 09:45 12/11/24 00:42 Central Line Flush IV PUSH 10 ml PRN PRN Administration with TPN bag changes Sodium Chloride 20 ml 12/07/24 09:45 12/11/24 05:39 Central Line Flush IV PUSH 20 ml PRN PRN Administration after blood draws Vancomycin HCl 125 mg 12/13/24 08:35 12/13/24 12:13 Vancomycin Hcl 125 Mg Oral Capsule PO 125 mg Q6HR CEE Administration Radiology Results: ITS Impressions Renal Ultrasound 12/04/24 21:30 Impression: 1: Unremarkable renal ultrasound. No stones, masses or hydronephrosis. Pulmonary Perfusion Imaging 12/05/24 18:55 IMPRESSION: 1: Normal perfusion scan. Probable shallow lung volumes. Recommend correlation with chest x-ray.. Abdomen/Pelvis CT 12/06/24 09:26 IMPRESSION: 1. 7.2 x 1.8 x 7.9 cm collection of fluid, gas, and oral contrast in right paracolic gutter, consistent with anastomotic leak.. 2. Small volume of ascites. 3. Dilated small bowel, consistent with adynamic ileus. 4. Small left pleural effusion. Chest/Abdomen/Pelvis CT 12/10/24 10:51 IMPRESSION: 1. Small amount of likely residual free intraperineal gas and fluid post likely revision of an ileocolic anastomosis and placement of a surgical drain. No evident organized abscess or extraluminal contrast to suggest residual anastomotic leak. 2. Wall thickening along the sigmoid colon consistent with colitis infectious or inflammatory in etiology. Differential would also include residual reactive edema related to the prior anastomotic leak and recent surgery. 3. Volume loss in both lungs with atelectasis at the bilateral lung bases including complete collapse of the right middle lobe. Superimposed pneumonia not excludable but suspicion is low. 4. Chronic mild dilation the common bile duct without evident obstructing stone or mass, likely related to prior cholecystectomy but would correlate with liver function tests. CT Brain Angiography 12/13/24 11:34 IMPRESSION: 1. Normal aging brain. No acute intracranial process or abnormally enhancing brain lesions. 2. Unremarkable cerebral CT angiogram with no hemodynamic significant stenosis, thrombosis or aneurysm. Labs Labs: Laboratory Results - last 24 hr 12/12/24 12/12/24 12/13/24 16:53 17:46 06:02 WBC RBC Hgb Hct MCV MCH MCHC RDW Plt Count MPV Puncture Site ABG pH ABG pCO2 ABG pO2 ABG PO2/FiO2 Ratio ABG HCO3 ABG O2 Saturation ABG O2 Content ABG Base Excess A-a Gradient Oxyhemoglobin Carboxyhemoglobin Methemoglobin Reduced Hemoglobin Total Hemoglobin O2 Delivery Device O2 Liters/Min FiO2 Sodium 147 H Potassium 3.8 Chloride 113 H Carbon Dioxide 31 H Anion Gap 3 L BUN 32 H Creatinine 0.80 Estim Creat Clear Calc Not Reportable Estimated GFR > 60 Glucose 237 H POC Capillary Glucose 201 H 199 H Calcium 7.4 L Phosphorus C. difficile (PCR) Positive A* 12/13/24 12/13/24 12/13/24 06:39 08:18 11:47 WBC 11.4 H RBC 2.89 L Hgb 7.2 L Hct 24.6 L MCV 85.1 MCH 24.9 L MCHC 29.3 L RDW 21.2 H Plt Count 381 H MPV 12.1 H Puncture Site ABG pH ABG pCO2 ABG pO2 ABG PO2/FiO2 Ratio ABG HCO3 ABG O2 Saturation ABG O2 Content ABG Base Excess A-a Gradient Oxyhemoglobin Carboxyhemoglobin Methemoglobin Reduced Hemoglobin Total Hemoglobin O2 Delivery Device O2 Liters/Min FiO2 Sodium 144 Potassium 3.5 Chloride 113 H Carbon Dioxide 33 H Anion Gap -2 L BUN 30 H Creatinine 0.85 Estim Creat Clear Calc Not Reportable Estimated GFR > 60 Glucose 219 H POC Capillary Glucose 210 H Calcium 7.4 L Phosphorus 2.3 L C. difficile (PCR) 12/13/24 11:54 WBC RBC Hgb Hct MCV MCH MCHC RDW Plt Count MPV Puncture Site Left radial ABG pH 7.492 H ABG pCO2 37.8 ABG pO2 72.5 L ABG PO2/FiO2 Ratio 2.59 ABG HCO3 28.3 H ABG O2 Saturation 95.7 ABG O2 Content 11.1 L ABG Base Excess 4.7 A-a Gradient 82.5 Oxyhemoglobin 94.0 Carboxyhemoglobin 0.1 Methemoglobin 0.0 Reduced Hemoglobin 5.9 H Total Hemoglobin 8.3 L O2 Delivery Device Nasal cannula O2 Liters/Min 2.0 FiO2 28 Sodium Potassium Chloride Carbon Dioxide Anion Gap BUN Creatinine Estim Creat Clear Calc Estimated GFR Glucose POC Capillary Glucose Calcium Phosphorus C. difficile (PCR)
--- NOTE | 2024-12-13 13:24 | PC.NURSE ---
RN called Elyssa HORAN to clarify TPN and Lipids.
--- NOTE | 2024-12-13 14:22 | PCOTNOTE ---
Patient has had bed rest orders cancelled. Attempted to initiate a OT treatment session. Patient has had a Rapid Response called this date, Per MARLINE Bergeron, do not see this date. Patient having testing done and will follow up.
[2024-12-13 15:39] LABS: Triglycerides 149 mg/dL (<150)
--- NOTE | 2024-12-13 15:41 | WPDHPUPDATE1 ---
History and Physical Update Update Date/Time: 12/13/24 15:41 History and Physical has been reviewed, including an updated exam of the patient. There are NO changes in the patient's condition. Risks, benefits, and alternatives have been discussed and questions answered. Patient agrees to proceed with procedure.
[2024-12-13] MEDS: SODIUM CHLORIDE 0.9% IV 250 ML 30 ML IV CONT (15:48)
--- NOTE | 2024-12-13 16:07 | PC.NURSE ---
Patient left floor for surgery.
[2024-12-13] MEDS: LACTATED RINGERS 1,000 ML 30 ML IV CONT ×2 (16:50→20:11)
--- NOTE | 2024-12-13 17:00 | PM.IMPN ---
Progress Note: A&P Assessment and Plan (1) Anemia: Code(s): D64.9 - Anemia, unspecified Status: Chronic (2) Acute hypoxemic respiratory failure: Code(s): J96.01 - Acute respiratory failure with hypoxia Status: Acute (3) Ileocolic anastomotic leak: Code(s): K91.89 - Other postprocedural complications and disorders of digestive system Status: Acute Plan Called to bedside twice as nurse noted patient to be confused, tachypneic. Repeat CT head without acute abnormalities. Patient remains on 2 L, she does not complain of shortness of breath. She is very weak and can only pulling 500 cc max on the incentive spirometer. CT of chest does not demonstrate any PE. She does have bilateral atelectasis and small lung volumes which is not new. Pulmonology consultation requested, their assistance is greatly appreciated. They had no further recommendations except for increased mobility as tolerated, incentive spirometer and EZ Pap. We will continue all of these. Subsequently, a CT abdomen demonstrates anastomotic leak in the right lower quadrant ileo colic anastomosis. She is currently going for take back with General surgery. The patient was in agreement. She is going to receive 1 unit PRBC preemptively as her hemoglobin is 7.2. Monitor fluid status afterwards, even though she had trace pitting edema of the bilateral lower extremity she overall appears volume down. Further management per surgery. She is currently on vancomycin and meropenem, appreciate Infectious Disease recommendations. Blood culture on 12/04/2024 no growth, final. I never witnessed the patient to be confused, however her wound nurse and her nurse reported she was confused. This was transient, continue to monitor, likely metabolic encephalopathy. Patient wishes to be full code. Urinary catheter in place. Daily labs. Time Spent With Patient Time with patient: Greater than 35 minutes Subjective Date/time seen: 12/13/24 17:00 Interval history: Patient has increased tachypnea today. She still does not complain of any symptoms. There is large bile output and her JUHI drain. Review of Systems Review of Systems: All systems reviewed & are unremarkable except as noted in HPI and below (Subjective) Exam Const: General: comfortable and no acute distress HENMT: Mouth: Yes moist mucous membranes Eyes: Pupils: Equal, round and reactive pupils present Neck: Neck: supple Resp: Other: Tachypnea, decreased breath sounds bilaterally at the bases Cardio: Rate: regular rate Rhythm: regular rhythm Heart sounds: no murmurs GI: Inspection: non-distended GI Palp: Yes Soft to palpation and No Tenderness to palpation present (GI) Neuro: Motor exam (neuro): 5/5 motor strength present throughout Extrem: General: edema Objective Data Vital Signs Vital Signs: Vital Signs - 24 hr 12/12/24 17:40 12/12/24 20:00 12/12/24 20:00 Temperature 99.7 F H Pulse Rate 115 H 120 H Respiratory Rate 20 Blood Pressure 101/61 Pulse Oximetry 95 98 Oxygen Delivery Nasal Cannula Oxygen Flow Rate 2 12/12/24 21:44 12/13/24 00:00 12/13/24 04:00 Temperature Pulse Rate 120 H 119 H 121 H Respiratory Rate Blood Pressure Pulse Oximetry Oxygen Delivery Oxygen Flow Rate 12/13/24 04:00 12/13/24 08:46 12/13/24 08:54 Temperature 98.4 F 99.1 F Pulse Rate 116 H 120 H Respiratory Rate 18 18 Blood Pressure 97/54 L 104/64 Pulse Oximetry 95 97 97 Oxygen Delivery Nasal Cannula Oxygen Flow Rate 2 12/13/24 08:54 12/13/24 09:12 12/13/24 11:50 Temperature Pulse Rate 116 H 119 H Respiratory Rate 28 H 32 H Blood Pressure 111/67 Pulse Oximetry 99 Oxygen Delivery Oxygen Flow Rate 12/13/24 11:53 12/13/24 12:00 12/13/24 12:08 Temperature Pulse Rate 116 H 118 H Respiratory Rate 28 H 20 Blood Pressure 111/67 Pulse Oximetry 99 Oxygen Delivery Nasal Cannula Oxygen Flow Rate 2 12/13/24 16:56 Temperature 99.0 F Pulse Rate 116 H Respiratory Rate 25 H Blood Pressure 108/61 Pulse Oximetry 93 Oxygen Delivery Oxygen Flow Rate Intake/Output Intake/Output: Intake & Output 12/10/24 12/11/24 12/12/24 12/13/24 23:59 23:59 23:59 23:59 Intake Total 3230.0 1505.8 2077.5 1127.5 Output Total 2140 2172 2035 1170 Balance 1090.0 -666.2 42.5 -42.5 Meds/Results Medications: Active Medications Generic Name Dose Route Start Last Admin Trade Name Freq PRN Reason Stop Dose Admin Acetaminophen 650 mg 12/10/24 04:32 12/11/24 20:18 Acetaminophen 650 Mg Suppository RECTAL 650 mg Q4H PRN Administration Mild Pain (1-3) or Fever Enoxaparin Sodium 40 mg 12/07/24 09:00 12/13/24 08:46 Enoxaparin 40 Mg/0.4 Ml Syringe SUB-Q 40 mg On Hold: 12/13/24 10:04 DAILY CEE Administration Fentanyl Citrate 25 mcg 12/13/24 16:59 Fentanyl Citrate Inj (*Crx) 100 Mcg/2 Ml Vial IV PUSH Q2M PRN Pain Hydromorphone HCl 1 mg 12/06/24 17:15 12/13/24 09:09 Hydromorphone Hcl Inj (*Crx) 1 Mg/Ml Syr IV PUSH 1 mg Q2H PRN Administration Breakthrough Pain Rated 7-10 or NPO Hydromorphone HCl 0.5 mg 12/06/24 17:15 12/11/24 09:30 Hydromorphone Hcl Inj (*Crx) 1 Mg/Ml Syr IV PUSH 0.5 mg Q2H PRN Administration Breakthrough Pain Rated 4-6 or NPO Dextrose 1,000 mls @ 50 mls/hr 12/06/24 17:15 Dextrose 10% IV CONT .Q20H PRN if PN is interrupted Fat Emulsion Intravenous 250 mls @ 20.833 mls/hr 12/06/24 18:00 12/12/24 17:06 Lipids 20% IVPB 20.83 mls/hr Q24H CEE Administration Multivitamins 1.25 ml/ 1,002.5 mls @ 50 mls/hr 12/08/24 10:00 12/13/24 12:13 Multivitamins 1.25 ml/ Amino IV CONT 50 mls/hr Acids/Electrolytes/Dextrose .Q20H3M CEE Administration Protocol Meropenem 1 gm/ Sodium 100 mls @ 200 mls/hr 12/11/24 15:00 12/13/24 13:37 Chloride IVPB 200 mls/hr Q8HR CEE Administration Sodium Chloride 250 mls @ 30 mls/hr 12/13/24 14:55 12/13/24 15:48 Normal Saline Iv IV CONT 12/13/24 23:14 30 mls/hr .Q8H20M STA Administration Lactated Ringer's 1,000 mls @ 30 mls/hr 12/13/24 17:00 Lr - Lactated Ringers Iv IV CONT .Q24H CEE Lactated Ringer's 1,000 mls @ 30 mls/hr 12/13/24 17:00 Lr - Lactated Ringers Iv IV CONT .Q24H CEE Miscellaneous Information 1 each 12/13/24 00:01 12/13/24 12:14 Please Renew Tpn. Per [employer] Procedure, It Will Discontinue If Not Renewed XX 01/12/25 00:00 Not Given CLARIFY CEE Naloxone HCl 0.1 mg 12/06/24 17:15 Naloxone Hcl 0.4 Mg/Ml Vial IV PUSH Q2M PRN Opiate Reversal Ondansetron HCl 4 mg 12/03/24 17:26 12/09/24 05:23 Ondansetron Inj 4 Mg/2 Ml Vial IV PUSH 4 mg Q4H PRN Administration Nausea And Vomiting Ondansetron HCl 4 mg 12/13/24 16:59 Ondansetron Inj 4 Mg/2 Ml Vial IV PUSH ONCE PRN Nausea Pantoprazole Sodium 40 mg 12/07/24 09:00 12/13/24 08:45 Pantoprazole Sodium Iv 40 Mg Vial IV PUSH 40 mg QAM CEE Administration Phenol 1 spray 12/07/24 10:05 Phenol/Sod Pheno [place] Salomon (*Bkc) MUCOUS MEM Q2H PRN Sore Throat Sodium Chloride 10 ml 12/07/24 14:00 12/13/24 13:38 Central Line Flush IV PUSH 10 ml Q8HR CEE Administration Sodium Chloride 10 ml 12/07/24 09:45 12/11/24 00:42 Central Line Flush IV PUSH 10 ml PRN PRN Administration with TPN bag changes Sodium Chloride 20 ml 12/07/24 09:45 12/11/24 05:39 Central Line Flush IV PUSH 20 ml PRN PRN Administration after blood draws Vancomycin HCl 125 mg 12/13/24 08:35 12/13/24 12:13 Vancomycin Hcl 125 Mg Oral Capsule PO 125 mg Q6HR CEE Administration Radiology Results: ITS Impressions Renal Ultrasound 12/04/24 21:30 Impression: 1: Unremarkable renal ultrasound. No stones, masses or hydronephrosis. Pulmonary Perfusion Imaging 12/05/24 18:55 IMPRESSION: 1: Normal perfusion scan. Probable shallow lung volumes. Recommend correlation with chest x-ray.. Chest/Abdomen/Pelvis CT 12/10/24 10:51 IMPRESSION: 1. Small amount of likely residual free intraperineal gas and fluid post likely revision of an ileocolic anastomosis and placement of a surgical drain. No evident organized abscess or extraluminal contrast to suggest residual anastomotic leak. 2. Wall thickening along the sigmoid colon consistent with colitis infectious or inflammatory in etiology. Differential would also include residual reactive edema related to the prior anastomotic leak and recent surgery. 3. Volume loss in both lungs with atelectasis at the bilateral lung bases including complete collapse of the right middle lobe. Superimposed pneumonia not excludable but suspicion is low. 4. Chronic mild dilation the common bile duct without evident obstructing stone or mass, likely related to prior cholecystectomy but would correlate with liver function tests. CT Brain Angiography 12/13/24 11:34 IMPRESSION: 1. Normal aging brain. No acute intracranial process or abnormally enhancing brain lesions. 2. Unremarkable cerebral CT angiogram with no hemodynamic significant stenosis, thrombosis or aneurysm. Chest X-Ray 12/13/24 12:26 IMPRESSION: 1. Persistent bibasilar atelectasis and/or airspace disease. 2. No significant change from one week prior. Abdomen/Pelvis CT 12/13/24 12:45 IMPRESSION: 1. Status post right hemicolectomy with anastomotic leak at the right lower quadrant ileocolic anastomosis. 2. Moderate bibasilar atelectasis, right greater than left with mucous bony of right middle and lower lobar bronchi. Chest CTA 12/13/24 12:45 IMPRESSION: 1. No pulmonary embolus. Sensitivity is moderately decreased by motion artifact. 2. Small lung volumes with relative elevation of right hemidiaphragm. Moderate atelectasis in the inferior lungs 3. Ascites. Labs Labs: Laboratory Results - last 24 hr 12/12/24 12/13/24 12/13/24 17:46 06:02 06:39 WBC RBC Hgb Hct MCV MCH MCHC RDW Plt Count MPV Puncture Site ABG pH ABG pCO2 ABG pO2 ABG PO2/FiO2 Ratio ABG HCO3 ABG O2 Saturation ABG O2 Content ABG Base Excess A-a Gradient Oxyhemoglobin Carboxyhemoglobin Methemoglobin Reduced Hemoglobin Total Hemoglobin O2 Delivery Device O2 Liters/Min FiO2 Sodium 147 H 144 Potassium 3.8 3.5 Chloride 113 H 113 H Carbon Dioxide 31 H 33 H Anion Gap 3 L -2 L BUN 32 H 30 H Creatinine 0.80 0.85 Estim Creat Clear Calc Not Reportable Not Reportable Estimated GFR > 60 > 60 Glucose 237 H 219 H POC Capillary Glucose 199 H Calcium 7.4 L 7.4 L Phosphorus 2.3 L Triglycerides C. difficile (PCR) Positive A* Blood Type Antibody Screen Crossmatch 12/13/24 12/13/24 12/13/24 08:18 11:47 11:54 WBC 11.4 H RBC 2.89 L Hgb 7.2 L Hct 24.6 L MCV 85.1 MCH 24.9 L MCHC 29.3 L RDW 21.2 H Plt Count 381 H MPV 12.1 H Puncture Site Left radial ABG pH 7.492 H ABG pCO2 37.8 ABG pO2 72.5 L ABG PO2/FiO2 Ratio 2.59 ABG HCO3 28.3 H ABG O2 Saturation 95.7 ABG O2 Content 11.1 L ABG Base Excess 4.7 A-a Gradient 82.5 Oxyhemoglobin 94.0 Carboxyhemoglobin 0.1 Methemoglobin 0.0 Reduced Hemoglobin 5.9 H Total Hemoglobin 8.3 L O2 Delivery Device Nasal cannula O2 Liters/Min 2.0 FiO2 28 Sodium Potassium Chloride Carbon Dioxide Anion Gap BUN Creatinine Estim Creat Clear Calc Estimated GFR Glucose POC Capillary Glucose 210 H Calcium Phosphorus Triglycerides C. difficile (PCR) Blood Type Antibody Screen Crossmatch 12/13/24 12/13/24 15:23 16:18 WBC RBC Hgb Hct MCV MCH MCHC RDW Plt Count MPV Puncture Site ABG pH ABG pCO2 ABG pO2 ABG PO2/FiO2 Ratio ABG HCO3 ABG O2 Saturation ABG O2 Content ABG Base Excess A-a Gradient Oxyhemoglobin Carboxyhemoglobin Methemoglobin Reduced Hemoglobin Total Hemoglobin O2 Delivery Device O2 Liters/Min FiO2 Sodium Potassium Chloride Carbon Dioxide Anion Gap BUN Creatinine Estim Creat Clear Calc Estimated GFR Glucose POC Capillary Glucose 158 H Calcium Phosphorus Triglycerides 149 C. difficile (PCR) Blood Type A Negative Antibody Screen Negative Crossmatch See Detail
--- NOTE | 2024-12-13 20:13 | S_PTH ---
PATIENT: Rosanna Johns LOC: [id number] U#:[id number] AGE/SX: 64/F ROOM: 341 RE12/03/[address]: Candice Anderson APRN : 1960 BED: 01 DIS: 01/01/2025 SPEC #: [id number] RECD: 12/16/24 08:34 STATUS: YENIFER PARRA #: [id number] REBECCA: 12/13/24 20:[address]: Parth Burch DEPT: [facility] Surgical RECD BY: Katy Navas ENTERED: 12/16/24 08:35 SP TYPE: Surgical OTHR DR: MD Yolanda Green APRN Sriraj T. Kanungo, MD Srimannarayana Marella, MD Anjum Owaisi, MD Tissues: A - Colon Segment NonTumor Procedures: Hematoxylin and Eosin Stain Gross and Microscopic Level 5
--- NOTE | 2024-12-13 20:23 | P.OP_ITS ---
Procedure Note - Detailed Date of Procedure 12/13/24 Pre-op Diagnosis Anastomotic leak Post-op Diagnosis Same Procedure Performed 1. Re-exploration of recent laparotomy 2. Ileocolic resection with end ileostomy and mucous fistula creation 3. Placement of wound VAC within subcutaneous space measuring 12 cm x 3 cm Surgeon Parth Burch DO Anesthesia General Indications Recurrent anastomotic leak Findings Recurrent anastomotic leak identified at the ileocolic anastomosis. Transverse colon tissue appeared very weak and edematous. Ileocolic resection performed at the anastomosis. Terminal ileum was brought up to the right lateral abdomen for end ileostomy and transverse colon was brought up to the right upper quadrant for mucous fistula. Abdomen was irrigated with another 2 L of sterile saline. A new JUHI drain was placed the left upper quadrant and advanced over towards the right pericolic gutter. After closing the midline fascia, a wound VAC was placed within the subcutaneous space measuring 12 cm x 3 cm. Description of Procedure Procedure as well as risks, benefits, and alternatives were discussed with the patient as well as with her 2 daughters. Written consent was obtained and placed in chart prior to procedure. Patient was brought back to surgical suite. She was placed supine on operating table. Time-out was done to confirm patient and procedure. She was intubated by the anesthesia department. The wound VAC was removed and the abdomen was then prepped and draped in sterile fashion using Betadine prep. The midline fascia stitch was excised to enter into the abdominal cavity. The abdomen was then carefully inspected. The omentum was reflected cephalad and the anastomosis was identified. There were a few loose adhesions that were able to be taken down with blunt dissection and the anastomosis was able to be delivered out through the midline incision. There were a few gastrocolic ligament attachments to the transverse colon the needed to be taken down using LigaSure bipolar cautery to help mobilize the transverse colon. I then identified the anastomotic leak and chose to proceed with resection of the prior anastomosis. A window was created in the mesentery of the ileum about 5 cm proximal to the anastomosis and a RUDDY 75 mm blue load stapler was advanced across the distal ileum at this point and clamped and fired. Another window was created in the mesocolon about 5 cm distal to the anastomosis and a RUDDY 75 mm blue load stapler was advanced across the transverse colon at this point clamped and fired. The remaining mesocolon and mesentery attachments were then taken down using LigaSure bipolar cautery. This freed up the prior anastomosis and it was removed and sent to the lab for pathology. There was some bleeding noted from the transverse mesocolon that the LigaSure did not completely control. It was bleeding fairly steadily but I was able to identify precisely where it was bleeding from and a [id number] suture was placed to ligate the bleeding vessel. There was about 350-400 mL of blood loss from this but then afterwards there was minimal signs of bleeding from anywhere else. The abdomen was then irrigated with sterile saline and the remainder of the abdomen was carefully inspected. No other bowel injuries were identified and any other loculations were carefully broken up with blunt dissection. The prior JUHI drain was removed because there was some scant purulence drainage coming from around the drain at the skin incision. I then chose to place a new drain in the left upper quadrant this was advanced across the abdomen to the right lateral abdomen. The drain was secured in place using a 3-0 nylon drain stitch. I then identified locations for each of the ostomies and ensured that the bowel came up to those locations without any significant tension. A 2 cm circular incision was made in the right lateral abdomen at the location that was marked preoperatively by the wound ostomy nurse. Electrocautery was used for hemostasis and for dissection through the subcutaneous tissue and the overlying skin was excised. The dissection was carried out down to the anterior rectus sheath and then the anterior rectus sheath was incised vertically using electrocautery. The rectus muscle was then split along its fibers and the posterior rectus sheath was incised using electrocautery. I ensured that the tract was wide enough to allow the bowel to come through and then a [place] clamp was placed through the incision and on the staple line of the distal ileum. This was then carefully delivered through the incision with care not to cause any origin or any traction injuries of the bowel. The ileum was able to deliver through the incision with about 2 cm protruding above the skin. I then performed another 2 cm circular incision in the right upper quadrant and excise the skin with electrocautery. Dissection was also carried down to the anterior rectus sheath and the anterior rectus sheath was incised with electrocautery. The rectus muscle was split along its fibers and the posterior rectus sheath was then incised with electrocautery. A [place] was then placed through this incision and the transverse colon staple line was delivered up through this incision. After 1 final inspection around the abdominal cavity no other abnormalities were noted. The fascia was then closed using 0 PDS [id number] t sutures throughout the entire length. The fascia appeared very weak and somewhat friable from the 2 prior surgeries, therefore wide sutures were placed to adequately approximate the fascia. I then moved my attention to the ileostomy and mucous fistula creation. The staple line was excised from the transverse colon using electrocautery and the ostomy was matured using 3-0 chromic sutures at the 4 corners. Then also placed several 4-0 chromic sutures in between each of the 4 corner sutures to adequately approximate the edge of the colon to the skin. The transverse colon mucous fistula was digitally inspected and appeared patent and healthy and viable. I then excised the staple line of the distal ileum and matured to the ileostomy in a Dianne fashion using 3-0 chromic sutures at 4 corners. I then also placed a 3-0 chromic suture in between each of these 4 corner sutures. The ileum appeared adequately approximated to the skin edges with about a 1 cm protrusion above the skin. The ileostomy was then digitally inspected and appeared patent and healthy and viable. The black foam was cut to the appropriate size for the wound VAC in the subcutaneous space of the midline incision. This incision measured about 12 cm x 3 cm. The sponge was placed within the subcutaneous space and then the clear dressing was placed over top followed by the suction device. The ostomy appliances were then cut to appropriate size and secured to the skin around the ileostomy and mucous fistula. Drain sponge was placed followed by tape and a 2 x 2 gauze and tape were then applied at the prior drain site in the right lower quadrant. The patient was then awakened from anesthesia, extubated, and transferred to recovery. Estimated Blood Loss 500 Urine Output 350 Pathology Yes (Ileocolic anastomosis) Complications No immediate complications Condition Critical Disposition Other (IMU) [facility] Billing Surgery - Charge Forward: Surgery Billing
[2024-12-13] MEDS: fentaNYL CITRATE INJ (*CRX) 100 MCG/2 ML VIAL 25 MCG IV PUSH ×4 (20:45→21:00)
[2024-12-13] MEDS: FAT EMULSIONS IV 20% 250 ML 20.83 ML IVPB (22:10)
--- NOTE | 2024-12-13 22:42 | PC.NURSE ---
This patient, Rosanna Johns, was received from [PACU ] on 12/13/24 at 2123. Patient oriented to unit policies and routines. Belongings brought from [address] [place] [address].
[2024-12-13] MEDS: VANCOMYCIN ORAL 125 MG/2.5 ML SYRUP PO (23:12)
[2024-12-14] VITALS (15 sets, daily range): BP systolic 103–108; BP diastolic 62–67; PULSE 107–116; RESP 18–22; TEMP 36.4–37.4; O2SAT 93–98
[2024-12-14 04:49] LABS: Hematocrit 29.3 % (37.0-47.0); Hemoglobin 9.3 g/dL (12.0-15.0); Mean Corpuscular HGB Conc 31.7 g/dl (32-36); Mean Corpuscular Hemoglobin 26.9 pg (26-34); Mean Corpuscular Volume 84.7 fl (80-100); Platelet Count Result 460 k/mm3 (150-375); Red Blood Count 3.46 M/mm3 (4.2-5.4); White Blood Count 13.0 K/mm3 (4.5-10.0)
[2024-12-14 05:04] LABS: INR 1.1; Prothrombin Time 13.8 Seconds (11.1-14.7)
[2024-12-14 05:08] LABS: Anion Gap 4 mmol/L (4-12); Blood Urea Nitrogen 32 mg/dL (7-17); Calcium 6.9 mg/dL (8.4-10.2); Carbon Dioxide 28 mmol/L (22-30); Chloride 111 mmol/L (98-107); Estimated Glomerular Filt Rate > 60; Glucose 250 mg/dL (65-110); Magnesium 2.5 mg/dL (1.6-2.3); Potassium 4.2 mmol/L (3.4-5.0); Sodium 143 mmol/L (137-145)
[2024-12-14] MEDS: VANCOMYCIN ORAL 125 MG/2.5 ML SYRUP PO ×3 (06:08→18:31)
[2024-12-14] MEDS: MEROPENEM 1 GM in SODIUM CHLORIDE 0.9% IV 100 ML 200 ML IVPB ×3 (06:08→21:49)
[2024-12-14] MEDS: CENTRAL LINE FLUSH 10 ML IV PUSH ×3 (06:09→21:50)
[2024-12-14] MEDS: PANTOPRAZOLE SODIUM IV 40 MG VIAL IV PUSH (09:54)
[2024-12-14 10:07] LABS: Albumin Level 2.0 g/dL (3.5-5.1)
--- NOTE | 2024-12-14 10:12 | P.PNIM_ITS ---
Progress Note: A&P Assessment and Plan (1) History of partial colectomy: Code(s): Z90.49 - Acquired absence of other specified parts of digestive tract Status: Resolved (2) Ileocolic anastomotic leak: Code(s): K91.89 - Other postprocedural complications and disorders of digestive system Status: Acute (3) Acute blood loss anemia: Code(s): D62 - Acute posthemorrhagic anemia Status: Acute (4) Acute hypoxemic respiratory failure: Code(s): J96.01 - Acute respiratory failure with hypoxia Status: Acute Plan 64 y/o F with PMH of cancer the right colon S/P right colectomy, thrombosis of the mesenteric vein, WILL, diverticulitis, rhabdomyolysis (2021), hyperlipidemia and hypertension presented here on 12/03 with difficulty urinating. Previously underwent a hand assisted laparoscopic right colectomy with extensive adhesiolysis, mobilization of hepatic flexure by Dr. May on 11/27/24. Discharge on postop day 2 as she was doing well. At home she has had worsening abdominal pain, constipation. On readmission she has had a lengthy hospital course, on 12/06 undergoing a exploratory laparotomy with ileocolic resection with [id number] ileo colic anastomosis drainage of intra-abdominal abscess with placement of wound VAC. Due to bile in JUHI drains she had a repeat abdomen pelvis CT with water-soluble oral contrast demonstrating right hemicolectomy with anastomotic leak. On 12/13/2024 she underwent re-exploration with ileocolic resection with end ileostomy and mucous fistula creation and placement of wound VAC within subcutaneous space measuring 12 cm x 3 cm. ----- General surgery managing wounds, wound VAC, JUHI drain. Currently on TPN. Wound care per surgery and unit protocol and wound care. Sepsis: Monitor leukocytosis, tachypnea, tachycardia. Overall trend of leukocytosis has peaked at 19.9 on 12/08/2024. Continue to monitor along with procalcitonin. Infectious Disease consulted, continue meropenem, vancomycin p.o. 12/04/2024 blood culture x2 negative, final. C diff colitis: Appreciate ID recommendations, currently on p.o. vancomycin Post hemorrhagic anemia: Monitor daily hemoglobin, stable. Restart Lovenox 40 mg subQ q.day for DVT prophylaxis when okay by surgery. Hypocalcemia: After correction for hypoalbuminemia, 8.1. Continue to monitor. Elevated blood glucose readings: HbA1c 6.0%. Accu-Cheks q.6 hours with hypoglycemia protocol and low-dose insulin sliding scale. Acute hypoxic respiratory failure: Patient has been stable on 2 L, no complaints of dyspnea. She has bilateral atelectasis in the dependent portions. She is profoundly weak, mobilize as soon as possible per General surgery team. I have taught and encouraged the patient on multiple occasions on using the incentive spirometer with nursing at bedside. Consulted pulmonology, they had no further recommendations as well. Continue incentive spirometer, mobilization, EzPAP q.i.d. No prior lung disease, no wheezing. Repeat CT scans have not demonstrated pneumonia. Acute kidney injury and urinary retention: Could be due to hypovolemia, anemia, urinary retention, sepsis, contrast exposure. DARRYL has resolved. Nephrology signed off. Limon catheter remains due to surgery and immobility. Hypertension: [employer] antihypertensives on hold. Monitor blood pressure. ---- Stable but guarded in IMU. Continue telemetry. SCDs. Hold Lovenox. NPO. TPN. Protonix 40 mg IV q.a.m. for ulcer prophylaxis. Limon catheter, NG tube in place. The condition, PT/OT as appropriate per General surgery team. EzPAP, incentive spirometer. Patient wishes to be full code. Prior to admission she lives at home and was independent. Time Spent With Patient Time with patient: Greater than 35 minutes Subjective Date/time seen: 12/14/24 10:12 Interval history: Operative notes reviewed. Patient now has end ileostomy and mucous fistula, remains a JUHI drain on left side. She reports no symptomatology whatsoever, she has never endorsed any symptoms to me Review of Systems Review of Systems: All systems reviewed & are unremarkable except as noted in HPI and below (Subjective) Exam Const: General: comfortable and no acute distress HENMT: Mouth: Yes moist mucous membranes Eyes: Pupils: Equal, round and reactive pupils present Neck: Neck: supple Resp: Other: Tachypnea, decreased breath sounds bilateral bases, no crackles/rhonchi/wheezing Cardio: Rate: tachycardic Rhythm: regular rhythm GI: Inspection: non-distended GI Palp: Yes Soft to palpation Other: Right-sided mucous fistula with serosanguineous drainage, end ileostomy with light brown serous drainage, JUHI drain with serosanguineous drainage, wound VAC intact. Urinary Catheter: Urinary Catheter: patent and draining Neuro: Other: Generalized weakness Extrem: Other: 2+ pitting edema bilateral lower extremi ties, trace pitting edema bilateral upper extremities Psych: Mental Status: mental status grossly normal Objective Data Vital Signs Vital Signs: Vital Signs - 24 hr 12/13/24 11:50 12/13/24 11:53 12/13/24 12:00 Temperature Pulse Rate 119 H 116 H Respiratory Rate 32 H 28 H Blood Pressure 111/67 Pulse Oximetry 99 Oxygen Delivery Oxygen Flow Rate 12/13/24 12:08 12/13/24 16:11 12/13/24 16:56 Temperature 98.3 F 99.0 F Pulse Rate 118 H 117 H 116 H Respiratory Rate 20 26 H 25 H Blood Pressure 111/67 104/61 108/61 Pulse Oximetry 99 94 93 Oxygen Delivery Nasal Cannula Room Air Oxygen Flow Rate 2 12/13/24 17:05 12/13/24 17:10 12/13/24 17:15 Temperature 98.2 F 98.2 F 98.0 F Pulse Rate 117 H 118 H 118 H Respiratory Rate 24 H 24 H 22 H Blood Pressure 103/63 103/63 98/61 L Pulse Oximetry 94 93 93 Oxygen Delivery Oxygen Flow Rate 12/13/24 20:11 12/13/24 20:25 12/13/24 20:40 Temperature 97.3 F L Pulse Rate 108 H 106 H 109 H Respiratory Rate 32 H 31 H 31 H Blood Pressure 104/68 106/74 113/72 Pulse Oximetry 95 99 100 Oxygen Delivery Simple Face Mask Simple Face Mask Simple Face Mask Oxygen Flow Rate 8 8 6 12/13/24 20:55 12/13/24 21:10 12/13/24 21:28 Temperature Pulse Rate 107 H 109 H 112 H Respiratory Rate 31 H 28 H Blood Pressure 97/65 L 100/72 Pulse Oximetry 95 97 Oxygen Delivery Nasal Cannula Nasal Cannula Oxygen Flow Rate 3 3 12/13/24 21:30 12/13/24 21:31 12/13/24 22:01 Temperature 98.8 F 98.1 F Pulse Rate 110 H 89 Respiratory Rate 18 18 Blood Pressure 101/64 106/66 Pulse Oximetry 100 98 98 Oxygen Delivery Nasal Cannula Oxygen Flow Rate 3 12/13/24 23:01 12/14/24 00:00 12/14/24 00:00 Temperature 97.7 F 98.4 F Pulse Rate 108 H 112 H Respiratory Rate 18 22 H Blood Pressure 108/52 L 104/64 Pulse Oximetry 97 93 93 Oxygen Delivery Nasal Cannula Oxygen Flow Rate 2 12/14/24 00:00 12/14/24 01:57 12/14/24 04:00 Temperature 98.3 F Pulse Rate 111 H 112 H 112 H Respiratory Rate 20 Blood Pressure 108/66 Pulse Oximetry 93 Oxygen Delivery Oxygen Flow Rate 12/14/24 04:00 12/14/24 04:00 12/14/24 06:00 Temperature Pulse Rate 109 H 116 H Respiratory Rate Blood Pressure Pulse Oximetry 95 Oxygen Delivery Nasal Cannula Oxygen Flow Rate 2 12/14/24 08:00 Temperature 99.3 F Pulse Rate 112 H Respiratory Rate 20 Blood Pressure 103/67 Pulse Oximetry 97 Oxygen Delivery Oxygen Flow Rate Intake/Output Intake/Output: Intake & Output 12/11/24 12/12/24 12/13/24 12/14/24 23:59 23:59 23:59 23:59 Intake Total 1505.8 2077.5 1677.5 Output Total 2172 2035 2705 1050 Balance -666.2 42.5 -1027.5 -1050 Meds/Results Medications: Active Medications Generic Name Dose Route Start Last Admin Trade Name Freq PRN Reason Stop Dose Admin Acetaminophen 650 mg 12/10/24 04:32 12/11/24 20:18 Acetaminophen 650 Mg Suppository RECTAL 650 mg Q4H PRN Administration Mild Pain (1-3) or Fever Enoxaparin Sodium 40 mg 12/07/24 09:00 12/13/24 08:46 Enoxaparin 40 Mg/0.4 Ml Syringe SUB-Q 40 mg On Hold: 12/13/24 10:04 DAILY CEE Administration Hydromorphone HCl 1 mg 12/06/24 17:15 12/13/24 09:09 Hydromorphone Hcl Inj (*Crx) 1 Mg/Ml Syr IV PUSH 1 mg Q2H PRN Administration Breakthrough Pain Rated 7-10 or NPO Hydromorphone HCl 0.5 mg 12/06/24 17:15 12/11/24 09:30 Hydromorphone Hcl Inj (*Crx) 1 Mg/Ml Syr IV PUSH 0.5 mg Q2H PRN Administration Breakthrough Pain Rated 4-6 or NPO Dextrose 1,000 mls @ 50 mls/hr 12/06/24 17:15 Dextrose 10% IV CONT .Q20H PRN if PN is interrupted Fat Emulsion Intravenous 250 mls @ 20.833 mls/hr 12/06/24 18:00 12/13/24 22:10 Lipids 20% IVPB 20.83 mls/hr Q24H CEE Administration Multivitamins 1.25 ml/ 1,002.5 mls @ 50 mls/hr 12/08/24 10:00 12/13/24 12:13 Multivitamins 1.25 ml/ Amino IV CONT 50 mls/hr Acids/Electrolytes/Dextrose .Q20H3M CEE Administration Protocol Meropenem 1 gm/ Sodium 100 mls @ 200 mls/hr 12/11/24 15:00 12/14/24 06:08 Chloride IVPB 200 mls/hr Q8HR CEE Administration Naloxone HCl 0.1 mg 12/06/24 17:15 Naloxone Hcl 0.4 Mg/Ml Vial IV PUSH Q2M PRN Opiate Reversal Ondansetron HCl 4 mg 12/03/24 17:26 12/09/24 05:23 Ondansetron Inj 4 Mg/2 Ml Vial IV PUSH 4 mg Q4H PRN Administration Nausea And Vomiting Pantoprazole Sodium 40 mg 12/07/24 09:00 12/14/24 09:54 Pantoprazole Sodium Iv 40 Mg Vial IV PUSH 40 mg QAM CEE Administration Phenol 1 spray 12/07/24 10:05 Phenol/Sod Pheno Cost Salomon (*Bkc) MUCOUS MEM Q2H PRN Sore Throat Sodium Chloride 10 ml 12/07/24 14:00 12/14/24 06:09 Central Line Flush IV PUSH 10 ml Q8HR CEE Administration Sodium Chloride 10 ml 12/07/24 09:45 12/11/24 00:42 Central Line Flush IV PUSH 10 ml PRN PRN Administration with TPN bag changes Sodium Chloride 20 ml 12/07/24 09:45 12/11/24 05:39 Central Line Flush IV PUSH 20 ml PRN PRN Administration after blood draws Vancomycin HCl 125 mg 12/14/24 00:00 12/14/24 06:08 Vancomycin Oral 125 Mg/2.5 Ml Syrup PO 125 mg Q6HR CEE Administration Radiology Results: ITS Impressions Renal Ultrasound 12/04/24 21:30 Impression: 1: Unremarkable renal ultrasound. No stones, masses or hydronephrosis. Pulmonary Perfusion Imaging 12/05/24 18:55 IMPRESSION: 1: Normal perfusion scan. Probable shallow lung volumes. Recommend correlation with chest x-ray.. Chest/Abdomen/Pelvis CT 12/10/24 10:51 IMPRESSION: 1. Small amount of likely residual free intraperineal gas and fluid post likely revision of an ileocolic anastomosis and placement of a surgical drain. No evident organized abscess or extraluminal contrast to suggest residual anastomotic leak. 2. Wall thickening along the sigmoid colon consistent with colitis infectious or inflammatory in etiology. Differential would also include residual reactive e vaishnavi related to the prior anastomotic leak and recent surgery. 3. Volume loss in both lungs with atelectasis at the bilateral lung bases including complete collapse of the right middle lobe. Superimposed pneumonia not excludable but suspicion is low. 4. Chronic mild dilation the common bile duct without evident obstructing stone or mass, likely related to prior cholecystectomy but would correlate with liver function tests. CT Brain Angiography 12/13/24 11:34 IMPRESSION: 1. Normal aging brain. No acute intracranial process or abnormally enhancing brain lesions. 2. Unremarkable cerebral CT angiogram with no hemodynamic significant stenosis, thrombosis or aneurysm. Chest X-Ray 12/13/24 12:26 IMPRESSION: 1. Persistent bibasilar atelectasis and/or airspace disease. 2. No significant change from one week prior. Abdomen/Pelvis CT 12/13/24 12:45 IMPRESSION: 1. Status post right hemicolectomy with anastomotic leak at the right lower quadrant ileocolic anastomosis. 2. Moderate bibasilar atelectasis, right greater than left with mucous bony of right middle and lower lobar bronchi. Chest CTA 12/13/24 12:45 IMPRESSION: 1. No pulmonary embolus. Sensitivity is moderately decreased by motion artifact. 2. Small lung volumes with relative elevation of right hemidiaphragm. Moderate atelectasis in the inferior lungs 3. Ascites. Labs Labs: Laboratory Results - last 24 hr 12/13/24 12/13/24 12/13/24 11:47 11:54 15:23 WBC RBC Hgb Hct MCV MCH MCHC RDW Plt Count MPV PT INR Puncture Site Left radial ABG pH 7.492 H ABG pCO2 37.8 ABG pO2 72.5 L ABG PO2/FiO2 Ratio 2.59 ABG HCO3 28.3 H ABG O2 Saturation 95.7 ABG O2 Content 11.1 L ABG Base Excess 4.7 A-a Gradient 82.5 Oxyhemoglobin 94.0 Carboxyhemoglobin 0.1 Methemoglobin 0.0 Reduced Hemoglobin 5.9 H Total Hemoglobin 8.3 L O2 Delivery Device Nasal cannula O2 Liters/Min 2.0 FiO2 28 Sodium Potassium Chloride Carbon Dioxide Anion Gap BUN Creatinine Estim Creat Clear Calc Estimated GFR Glucose POC Capillary Glucose 210 H Calcium Magnesium Albumin Triglycerides 149 Blood Type A Negative Antibody Screen Negative Crossmatch See Detail 12/13/24 12/13/24 12/13/24 16:18 20:54 23:55 WBC RBC Hgb Hct MCV MCH MCHC RDW Plt Count MPV PT INR Puncture Site ABG pH ABG pCO2 ABG pO2 ABG PO2/FiO2 Ratio ABG HCO3 ABG O2 Saturation ABG O2 Content ABG Base Excess A-a Gradient Oxyhemoglobin Carboxyhemoglobin Methemoglobin Reduced Hemoglobin Total Hemoglobin O2 Delivery Device O2 Liters/Min FiO2 Sodium Potassium Chloride Carbon Dioxide Anion Gap BUN Creatinine Estim Creat Clear Calc Estimated GFR Glucose POC Capillary Glucose 158 H 116 H 204 H Calcium Magnesium Albumin Triglycerides Blood Type Antibody Screen Crossmatch 12/14/24 04:34 WBC 13.0 H RBC 3.46 L Hgb 9.3 L Hct 29.3 L MCV 84.7 MCH 26.9 D MCHC 31.7 L RDW 20.0 H Plt Count 460 H MPV 11.8 H PT 13.8 INR 1.1 Puncture Site ABG pH ABG pCO2 ABG pO2 ABG PO2/FiO2 Ratio ABG HCO3 ABG O2 Saturation ABG O2 Content ABG Base Excess A-a Gradient Oxyhemoglobin Carboxyhemoglobin Methemoglobin Reduced Hemoglobin Total Hemoglobin O2 Delivery Device O2 Liters/Min FiO2 Sodium 143 Potassium 4.2 Chloride 111 H Carbon Dioxide 28 Anion Gap 4 BUN 32 H Creatinine 0.81 Estim Creat Clear Calc Not Reportable Estimated GFR > 60 Glucose 250 H POC Capillary Glucose Calcium 6.9 L Magnesium 2.5 H Albumin 2.0 L Triglycerides Blood Type Antibody Screen Crossmatch
--- NOTE | 2024-12-14 11:11 | P.PN_ITS ---
Progress Note: A&P Assessment and Plan (1) Ileocolic anastomotic leak: Code(s): K91.89 - Other postprocedural complications and disorders of digestive system Status: Acute Assessment and Plan: Postop day 1 after re-exploration of abdomen and takedown of ileocolic anastomosis for anastomotic leak. Placement of end ileostomy and long mucous fistula. She seems to be doing pretty well. Already has output through the ileostomy. NG tube is still in place but output is a little bilious still. We will continue NG tube to suction today. May consider clamping the NG tube tomorrow. Renew the TPN and lipids today as she clearly has malnutrition with an albumin about 2.0 presently. Continue supportive management. Continue IV antibiotics. Subjective Date/time seen: 12/14/24 11:11 Interval history: Patient is postop day 1 after reabsorbed exploration for ileocolic anastomotic l eak and abdominal abscess. She had placement of end ileostomy and long mucous fistula. White blood cell count is little higher this morning which is not unexpected after her laparotomy yesterday. NG tube remains in place. Output is mildly bilious. Exam Const: General: comfortable and no acute distress GI: Other: Abdomen is soft and nondistended. Midline incision with wound VAC in place. Right mid abdominal wall and ileostomy viable with good output of succus. Mucous fistula in place which is viable as well. Minimal output. Objective Data Vital Signs Vital Signs: Vital Signs - 24 hr 12/13/24 11:50 12/13/24 11:53 12/13/24 12:00 Temperature Pulse Rate 119 H 116 H Respiratory Rate 32 H 28 H Blood Pressure 111/67 Pulse Oximetry 99 Oxygen Delivery Oxygen Flow Rate 12/13/24 12:08 12/13/24 16:11 12/13/24 16:56 Temperature 36.8 C 37.2 C Pulse Rate 118 H 117 H 116 H Respiratory Rate 20 26 H 25 H Blood Pressure 111/67 104/61 108/61 Pulse Oximetry 99 94 93 Oxygen Delivery Nasal Cannula Room Air Oxygen Flow Rate 2 12/13/24 17:05 12/13/24 17:10 12/13/24 17:15 Temperature 36.8 C 36.8 C 36.7 C Pulse Rate 117 H 118 H 118 H Respiratory Rate 24 H 24 H 22 H Blood Pressure 103/63 103/63 98/61 L Pulse Oximetry 94 93 93 Oxygen Delivery Oxygen Flow Rate 12/13/24 20:11 12/13/24 20:25 12/13/24 20:40 Temperature 36.3 C L Pulse Rate 108 H 106 H 109 H Respiratory Rate 32 H 31 H 31 H Blood Pressure 104/68 106/74 113/72 Pulse Oximetry 95 99 100 Oxygen Delivery Simple Face Mask Simple Face Mask Simple Face Mask Oxygen Flow Rate 8 8 6 12/13/24 20:55 12/13/24 21:10 12/13/24 21:28 Temperature Pulse Rate 107 H 109 H 112 H Respiratory Rate 31 H 28 H Blood Pressure 97/65 L 100/72 Pulse Oximetry 95 97 Oxygen Delivery Nasal Cannula Nasal Cannula Oxygen Flow Rate 3 3 12/13/24 21:30 12/13/24 21:31 12/13/24 22:01 Temperature 37.1 C 36.7 C Pulse Rate 110 H 89 Respiratory Rate 18 18 Blood Pressure 101/64 106/66 Pulse Oximetry 100 98 98 Oxygen Delivery Nasal Cannula Oxygen Flow Rate 3 12/13/24 23:01 12/14/24 00:00 12/14/24 00:00 Temperature 36.5 C 36.9 C Pulse Rate 108 H 112 H Respiratory Rate 18 22 H Blood Pressure 108/52 L 104/64 Pulse Oximetry 97 93 93 Oxygen Delivery Nasal Cannula Oxygen Flow Rate 2 12/14/24 00:00 12/14/24 01:57 12/14/24 04:00 Temperature 36.8 C Pulse Rate 111 H 112 H 112 H Respiratory Rate 20 Blood Pressure 108/66 Pulse Oximetry 93 Oxygen Delivery Oxygen Flow Rate 12/14/24 04:00 12/14/24 04:00 12/14/24 06:00 Temperature Pulse Rate 109 H 116 H Respiratory Rate Blood Pressure Pulse Oximetry 95 Oxygen Delivery Nasal Cannula Oxygen Flow Rate 2 12/14/24 08:00 12/14/24 08:00 12/14/24 08:00 Temperature 37.4 C Pulse Rate 112 H 112 H Respiratory Rate 20 Blood Pressure 103/67 Pulse Oximetry 97 95 Oxygen Delivery Nasal Cannula Oxygen Flow Rate 2 12/14/24 10:00 Temperature Pulse Rate 111 H Respiratory Rate Blood Pressure Pulse Oximetry Oxygen Delivery Oxygen Flow Rate Intake/Output Intake/Output: Intake & Output 10/01/25 10/02/25 10/03/25 10/04/25 23:59 23:59 23:59 23:59 Intake Total 1505.8 2077.5 1677.5 Output Total 2172 3608 2705 1050 Balance -666.2 42.5 -1027.5 -1050 Meds/Results Medications: Active Medications Generic Name Dose Route Start Last Admin Trade Name Freq PRN Reason Stop Dose Admin Acetaminophen 650 mg 12/10/24 04:32 12/11/24 20:18 Acetaminophen 650 Mg Suppository RECTAL 650 mg Q4H PRN Administration Mild Pain (1-3) or Fever Dextrose 12.5 gm 12/14/24 10:29 Dextrose 50% 25 Gm/50 Ml Syringe IV PUSH PRN PRN Hypoglycemia Protocol Enoxaparin Sodium 40 mg 12/07/24 09:00 12/13/24 08:46 Enoxaparin 40 Mg/0.4 Ml Syringe SUB-Q 40 mg On Hold: 12/13/24 10:04 DAILY CEE Administration Glucose 15 gm 12/14/24 10:29 Glucose Oral Gel 15 Gm Of Glucse In 37.5 Gm Tube PO PRN PRN Hypoglycemia Protocol Hydromorphone HCl 1 mg 12/06/24 17:15 12/13/24 09:09 Hydromorphone Hcl Inj (*Crx) 1 Mg/Ml Syr IV PUSH 1 mg Q2H PRN Administration Breakthrough Pain Rated 7-10 or NPO Hydromorphone HCl 0.5 mg 12/06/24 17:15 12/11/24 09:30 Hydromorphone Hcl Inj (*Crx) 1 Mg/Ml Syr IV PUSH 0.5 mg Q2H PRN Administration Breakthrough Pain Rated 4-6 or NPO Dextrose 1,000 mls @ 50 mls/hr 12/06/24 17:15 Dextrose 10% IV CONT .Q20H PRN if PN is interrupted Fat Emulsion Intravenous 250 mls @ 20.833 mls/hr 12/06/24 18:00 12/13/24 22:10 Lipids 20% IVPB 20.83 mls/hr Q24H CEE Administration Multivitamins 1.25 ml/ 1,002.5 mls @ 50 mls/hr 12/08/24 10:00 12/13/24 12:13 Multivitamins 1.25 ml/ Amino IV CONT 50 mls/hr Acids/Electrolytes/Dextrose .Q20H3M CEE Administration Protocol Meropenem 1 gm/ Sodium 100 mls @ 200 mls/hr 12/11/24 15:00 12/14/24 06:08 Chloride IVPB 200 mls/hr Q8HR CEE Administration Dextrose 1,000 mls @ 100 mls/hr 12/14/24 10:29 Dextrose 5% 1,000 Ml IVPB PRN PRN Hypoglycemia Protocol Insulin Aspart 2 - 5 units 12/14/24 12:00 Insulin Aspart (*Bkc) 100 Units/Ml SUB-Q TIDWM CEE Protocol Insulin Aspart 1 - 2 units 12/14/24 21:00 Insulin Aspart (*Bkc) 100 Units/Ml SUB-Q HS CEE Protocol Naloxone HCl 0.1 mg 12/06/24 17:15 Naloxone Hcl 0.4 Mg/Ml Vial IV PUSH Q2M PRN Opiate Reversal Ondansetron HCl 4 mg 12/03/24 17:26 12/09/24 05:23 Ondansetron Inj 4 Mg/2 Ml Vial IV PUSH 4 mg Q4H PRN Administration Nausea And Vomiting Pantoprazole Sodium 40 mg 12/07/24 09:00 12/14/24 09:54 Pantoprazole Sodium Iv 40 Mg Vial IV PUSH 40 mg QAM CEE Administration Phenol 1 spray 12/07/24 10:05 Phenol/Sod Pheno [place] Salomon (*Bkc) MUCOUS MEM Q2H PRN Sore Throat Sodium Chloride 10 ml 12/07/24 14:00 12/14/24 06:09 Central Line Flush IV PUSH 10 ml Q8HR CEE Administration Sodium Chloride 10 ml 12/07/24 09:45 12/11/24 00:42 Central Line Flush IV PUSH 10 ml PRN PRN Administration with TPN bag changes Sodium Chloride 20 ml 12/07/24 09:45 12/11/24 05:39 Central Line Flush IV PUSH 20 ml PRN PRN Administration after blood draws Vancomycin HCl 125 mg 12/14/24 00:00 12/14/24 06:08 Vancomycin Oral 125 Mg/2.5 Ml Syrup PO 125 mg Q6HR CEE Administration Radiology Results: ITS Impressions Renal Ultrasound 12/04/24 21:30 Impression: 1: Unremarkable renal ultrasound. No stones, masses or hydronephrosis. Pulmonary Perfusion Imaging 12/05/24 18:55 IMPRESSION: 1: Normal perfusion scan. Probable shallow lung volumes. Recommend correlation with chest x-ray.. Chest/Abdomen/Pelvis CT 12/10/24 10:51 IMPRESSION: 1. Small amount of likely residual free intraperineal gas and fluid post likely revision of an ileocolic anastomosis and placement of a surgical drain. No evident organized abscess or extraluminal contrast to suggest residual anastomotic leak. 2. Wall thickening along the sigmoid colon consistent with colitis infectious or inflammatory in etiology. Differential would also include residual reactive edema related to the prior anastomotic leak and recent surgery. 3. Volume loss in both lungs with atelectasis at the bilateral lung bases including complete collapse of the right middle lobe. Superimposed pneumonia not excludable but suspicion is low. 4. Chronic mild dilation the common bile duct without evident obstructing stone or mass, likely related to prior cholecystectomy but would correlate with liver function tests. CT Brain Angiography 12/13/24 11:34 IMPRESSION: 1. Normal aging brain. No acute intracranial process or abnormally enhancing brain lesions. 2. Unremarkable cerebral CT angiogram with no hemodynamic significant stenosis, thrombosis or aneurysm. Chest X-Ray 12/13/24 12:26 IMPRESSION: 1. Persistent bibasilar atelectasis and/or airspace disease. 2. No significant change from one week prior. Abdomen/Pelvis CT 12/13/24 12:45 IMPRESSION: 1. Status post right hemicolectomy with anastomotic leak at the right lower quadrant ileocolic anastomosis. 2. Moderate bibasilar atelectasis, right greater than left with mucous bony of right middle and lower lobar bronchi. Chest CTA 12/13/24 12:45 IMPRESSION: 1. No pulmonary embolus. Sensitivity is moderately decreased by motion artifact. 2. Small lung volumes with relative elevation of right hemidiaphragm. Moderate atelectasis in the inferior lungs 3. Ascites. Labs Labs: Laboratory Results - last 24 hr 12/13/24 12/13/24 12/13/24 11:47 11:54 15:23 WBC RBC Hgb Hct MCV MCH MCHC RDW Plt Count MPV PT INR Puncture Site Left radial ABG pH 7.492 H ABG pCO2 37.8 ABG pO2 72.5 L ABG PO2/FiO2 Ratio 2.59 ABG HCO3 28.3 H ABG O2 Saturation 95.7 ABG O2 Content 11.1 L ABG Base Excess 4.7 A-a Gradient 82.5 Oxyhemoglobin 94.0 Carboxyhemoglobin 0.1 Methemoglobin 0.0 Reduced Hemoglobin 5.9 H Total Hemoglobin 8.3 L O2 Delivery Device Nasal cannula O2 Liters/Min 2.0 FiO2 28 Sodium Potassium Chloride Carbon Dioxide Anion Gap BUN Creatinine Estim Creat Clear Calc Estimated GFR Glucose POC Capillary Glucose 210 H Calcium Magnesium Albumin Triglycerides 149 Blood Type A Negative Antibody Screen Negative Crossmatch See Detail 12/13/24 12/13/24 12/13/24 16:18 20:54 23:55 WBC RBC Hgb Hct MCV MCH MCHC RDW Plt Count MPV PT INR Puncture Site ABG pH ABG pCO2 ABG pO2 ABG PO2/FiO2 Ratio ABG HCO3 ABG O2 Saturation ABG O2 Content ABG Base Excess A-a Gradient Oxyhemoglobin Carboxyhemoglobin Methemoglobin Reduced Hemoglobin Total Hemoglobin O2 Delivery Device O2 Liters/Min FiO2 Sodium Potassium Chloride Carbon Dioxide Anion Gap BUN Creatinine Estim Creat Clear Calc Estimated GFR Glucose POC Capillary Glucose 158 H 116 H 204 H Calcium Magnesium Albumin Triglycerides Blood Type Antibody Screen Crossmatch 12/14/24 04:34 WBC 13.0 H RBC 3.46 L Hgb 9.3 L Hct 29.3 L MCV 84.7 MCH 26.9 D MCHC 31.7 L RDW 20.0 H Plt Count 460 H MPV 11.8 H PT 13.8 INR 1.1 Puncture Site ABG pH ABG pCO2 ABG pO2 ABG PO2/FiO2 Ratio ABG HCO3 ABG O2 Saturation ABG O2 Content ABG Base Excess A-a Gradient Oxyhemoglobin Carboxyhemoglobin Methemoglobin Reduced Hemoglobin Total Hemoglobin O2 Delivery Device O2 Liters/Min FiO2 Sodium 143 Potassium 4.2 Chloride 111 H Carbon Dioxide 28 Anion Gap 4 BUN 32 H Creatinine 0.81 Estim Creat Clear Calc Not Reportable Estimated GFR > 60 Glucose 250 H POC Capillary Glucose Calcium 6.9 L Magnesium 2.5 H Albumin 2.0 L Triglycerides Blood Type Antibody Screen Crossmatch
[2024-12-14] MEDS: INSULIN ASPART (*BKC) 100 UNITS/ML SUB-Q ×3 (11:33→20:36)
[2024-12-14] MEDS: AMINO ACIDS 5%/D15W/E-LYTES/CA 1,000 ML with MULTIVITAMINS-12 INJ VIAL 1 1.25 ML, MULTI... 50 ML IV CONT (15:08)
[2024-12-14] MEDS: FAT EMULSIONS IV 20% 250 ML 20.83 ML IVPB (17:43)
[2024-12-15] VITALS (18 sets, daily range): BP systolic 100–120; BP diastolic 62–68; PULSE 104–112; RESP 18–25; TEMP 36.6–37.2; O2SAT 90–98
[2024-12-15] MEDS: HYDROmorphone HCL INJ (*CRX) 1 MG/ML SYR 0.5 MG IV PUSH ×2 (00:27→21:44)
[2024-12-15] MEDS: VANCOMYCIN ORAL 125 MG/2.5 ML SYRUP PO ×4 (00:28→18:05)
[2024-12-15 03:45] LABS: Hematocrit 24.7 % (37.0-47.0); Hemoglobin 7.8 g/dL (12.0-15.0); Mean Corpuscular HGB Conc 31.6 g/dl (32-36); Mean Corpuscular Hemoglobin 26.9 pg (26-34); Mean Corpuscular Volume 85.2 fl (80-100); Platelet Count Result 424 k/mm3 (150-375); Red Blood Count 2.90 M/mm3 (4.2-5.4); White Blood Count 16.5 K/mm3 (4.5-10.0)
[2024-12-15 04:49] LABS: Alanine Aminotransferase 43 U/L (6-35); Albumin Level 1.9 g/dL (3.5-5.1); Alkaline Phosphatase 140 U/L (38-126); Anion Gap 3 mmol/L (4-12); Aspartate Amino Transferase 66 U/L (14-36); Bilirubin,Total 0.3 mg/dL (0.2-1.3); Blood Urea Nitrogen 39 mg/dL (7-17); Calcium 7.0 mg/dL (8.4-10.2); Carbon Dioxide 28 mmol/L (22-30); Chloride 111 mmol/L (98-107); Estimated Glomerular Filt Rate > 60; Glucose 315 mg/dL (65-110); Potassium 3.8 mmol/L (3.4-5.0); Sodium 142 mmol/L (137-145); Total Protein 4.9 g/dL (6.3-8.2)
[2024-12-15] MEDS: INSULIN ASPART (*BKC) 100 UNITS/ML SUB-Q ×3 (05:35→18:19)
[2024-12-15] MEDS: CENTRAL LINE FLUSH 10 ML IV PUSH ×3 (05:36→21:46)
[2024-12-15] MEDS: MEROPENEM 1 GM in SODIUM CHLORIDE 0.9% IV 100 ML 200 ML IVPB ×3 (05:36→21:44)
[2024-12-15] MEDS: PANTOPRAZOLE SODIUM IV 40 MG VIAL IV PUSH (09:42)
[2024-12-15] MEDS: HYDROmorphone HCL INJ (*CRX) 1 MG/ML SYR IV PUSH (09:47)
[2024-12-15] MEDS: AMINO ACIDS 5%/D15W/E-LYTES/CA 1,000 ML with MULTIVITAMINS-12 INJ VIAL 1 1.25 ML, MULTI... 50 ML IV CONT (09:52)
--- NOTE | 2024-12-15 10:02 | PM.IMPN ---
Progress Note: A&P Assessment and Plan (1) History of partial colectomy: Code(s): Z90.49 - Acquired absence of other specified parts of digestive tract Status: Resolved (2) Ileocolic anastomotic leak: Code(s): K91.89 - Other postprocedural complications and disorders of digestive system Status: Acute (3) Acute blood loss anemia: Code(s): D62 - Acute posthemorrhagic anemia Status: Acute (4) Acute hypoxemic respiratory failure: Code(s): J96.01 - Acute respiratory failure with hypoxia Status: Acute Plan 64 y/o F with PMH of cancer the right colon S/P right colectomy, thrombosis of the mesenteric vein, WILL, diverticulitis, rhabdomyolysis (2021), hyperlipidemia and hypertension presented here on 12/03 with difficulty urinating. Previously underwent a hand assisted laparoscopic right colectomy with extensive adhesiolysis, mobilization of hepatic flexure by Dr. May on 11/27/24. Discharge on postop day 2 as she was doing well. At home she has had worsening abdominal pain, constipation. On readmission she has had a lengthy hospital course, on 12/06 undergoing a exploratory laparotomy with ileocolic resection with [id number] ileo colic anastomosis drainage of intra-abdominal abscess with placement of wound VAC. Due to bile in JUHI drains she had a repeat abdomen pelvis CT with water-soluble oral contrast demonstrating right hemicolectomy with anastomotic leak. On 12/13/2024 she underwent re-exploration with ileocolic resection with end ileostomy and mucous fistula creation and placement of wound VAC within subcutaneous space measuring 12 cm x 3 cm. ----- General surgery managing wounds, wound VAC, JUHI drain. Currently on TPN. Wound care per surgery and unit protocol and wound care. Malnutrition: Related to surgery, continue TPN. NG tube in place. NPO. Sepsis: Monitor leukocytosis, tachypnea, tachycardia. Overall trend of leukocytosis has peaked at 19.9 on 12/08/2024. Continue to monitor along with procalcitonin. Infectious Disease consulted, continue meropenem, vancomycin p.o. 12/04/2024 blood culture x2 negative, final. C diff colitis: Appreciate ID recommendations, currently on p.o. vancomycin Post hemorrhagic anemia: Monitor daily hemoglobin, stable. Restart Lovenox 40 mg subQ q.day for DVT prophylaxis when okay by surgery. Hypocalcemia: After correction for hypoalbuminemia, 8.1. Continue to monitor. Elevated blood glucose readings: HbA1c 6.0%. Accu-Cheks q.6 hours with hypoglycemia protocol and low-dose insulin sliding scale. Acute hypoxic respiratory failure: Patient weaned to room air on 12/15/2024. Due to atelectasis, CTA chest did not demonstrate pneumonia/PE. Continue incentive spirometer and EzPAP q.i.d.. Mobilize as soon as possible. Acute kidney injury and urinary retention: Could be due to hypovolemia, anemia, urinary retention, sepsis, contrast exposure. DARRYL has resolved. Nephrology signed off. Limon catheter remains due to surgery and immobility. Hypertension: [employer] antihypertensives on hold. Monitor blood pressure. ---- Stable in IMU Continue telemetry. SCDs. Hold Lovenox, restart when cleared by General surgery team. NPO. TPN. Protonix 40 mg IV q.a.m. for ulcer prophylaxis. Limon catheter, NG tube in place. Right upper extremity PICC line Deconditioning, PT/OT as appropriate per General surgery team. EzPAP, incentive spirometer. Patient wishes to be full code. Prior to admission she lives at home and was independent. Time Spent With Patient Time with patient: Greater than 35 minutes Subjective Date/time seen: 12/15/24 10:03 Interval history: Patient denies any complaints. Review of Systems Review of Systems: All systems reviewed & are unremarkable except as noted in HPI and below (Subjective) Exam Const: General: comfortable and no acute distress HENMT: Mouth: Yes dry mucous membranes Eyes: Pupils: Equal, round and reactive pupils present Neck: Neck: supple Resp: Other: Slowly decreased breath sounds at bilateral bases, no crackles/wheezing/rhonchi Cardio: Rate: tachycardic Rhythm: regular rhythm GI: Inspection: non-distended GI Palp: Yes Soft to palpation, No Tenderness to palpation present (GI) and No Guarding due to palpation present (GI) Other: Right-sided mucous fistula with serosanguineous drainage, end ileostomy with light brown serous drainage, JUHI drain with serosanguineous drainage, wound VAC intact. Urinary Catheter: Urinary Catheter: patent and draining Neuro: Other: Generalized weakness Extrem: Other: Trace edema bilateral lower extremities Psych: Mental Status: mental status grossly normal Objective Data Vital Signs Vital Signs: Vital Signs - 24 hr 12/14/24 12:00 12/14/24 12:00 12/14/24 12:00 Temperature 97.5 F L Pulse Rate 112 H 110 H Respiratory Rate 20 Blood Pressure 103/65 Pulse Oximetry 93 95 Oxygen Delivery Nasal Cannula Oxygen Flow Rate 2 12/14/24 14:00 12/14/24 16:00 12/14/24 16:00 Temperature 97.7 F Pulse Rate 110 H 108 H Respiratory Rate 22 H Blood Pressure 108/62 Pulse Oximetry 94 94 Oxygen Delivery Nasal Cannula Oxygen Flow Rate 1 12/14/24 16:00 12/14/24 18:00 12/14/24 19:52 Temperature 98.5 F Pulse Rate 107 H 107 H 112 H Respiratory Rate 18 Blood Pressure 107/67 Pulse Oximetry 95 Oxygen Delivery Oxygen Flow Rate 12/14/24 20:00 12/14/24 20:00 12/14/24 20:23 Temperature Pulse Rate 112 H Respiratory Rate Blood Pressure Pulse Oximetry 98 95 Oxygen Delivery Nasal Cannula Nasal Cannula Oxygen Flow Rate 2 1 12/14/24 22:00 12/14/24 22:30 12/15/24 00:00 Temperature 97.8 F Pulse Rate 109 H 105 H Respiratory Rate 18 Blood Pressure 109/68 Pulse Oximetry 95 96 Oxygen Delivery Nasal Cannula Oxygen Flow Rate 1 12/15/24 00:00 12/15/24 00:00 12/15/24 01:30 Temperature Pulse Rate 105 H Respiratory Rate Blood Pressure Pulse Oximetry 92 90 Oxygen Delivery Room Air Nasal Cannula Oxygen Flow Rate 1 12/15/24 02:00 12/15/24 03:43 12/15/24 03:51 Temperature 97.8 F Pulse Rate 104 H 107 H Respiratory Rate 20 Blood Pressure 114/68 Pulse Oximetry 95 95 Oxygen Delivery Nasal Cannula Oxygen Flow Rate 1 12/15/24 04:00 12/15/24 06:00 12/15/24 06:38 Temperature Pulse Rate 105 H 107 H Respiratory Rate Blood Pressure Pulse Oximetry 94 Oxygen Delivery Room Air Oxygen Flow Rate 12/15/24 08:00 Temperature 99.0 F Pulse Rate 107 H Respiratory Rate 23 H Blood Pressure 108/62 Pulse Oximetry 93 Oxygen Delivery Oxygen Flow Rate Intake/Output Intake/Output: Intake & Output 10/02/12/13/24 12/14/24 12/15/24 23:59 23:59 23:59 23:59 Intake Total 2077.5 1677.5 1602.5 1071.7 Output Total 1 0049 2030 675 Balance 42.5 -1027.5 -427.5 396.7 Meds/Results Medications: Active Medications Generic Name Dose Route Start Last Admin Trade Name Freq PRN Reason Stop Dose Admin Acetaminophen 650 mg 12/10/24 04:32 12/11/24 20:18 Acetaminophen 650 Mg Suppository RECTAL 650 mg Q4H PRN Administration Mild Pain (1-3) or Fever Dextrose 12.5 gm 12/14/24 10:29 Dextrose 50% 25 Gm/50 Ml Syringe IV PUSH PRN PRN Hypoglycemia Protocol Enoxaparin Sodium 40 mg 12/07/24 09:00 12/13/24 08:46 Enoxaparin 40 Mg/0.4 Ml Syringe SUB-Q 40 mg On Hold: 12/13/24 10:04 DAILY CEE Administration Glucose 15 gm 12/14/24 10:29 Glucose Oral Gel 15 Gm Of Glucse In 37.5 Gm Tube PO PRN PRN Hypoglycemia Protocol Hydromorphone HCl 1 mg 12/06/24 17:15 12/15/24 09:47 Hydromorphone Hcl Inj (*Crx) 1 Mg/Ml Syr IV PUSH 1 mg Q2H PRN Administration Breakthrough Pain Rated 7-10 or NPO Hydromorphone HCl 0.5 mg 12/06/24 17:15 12/15/24 00:27 Hydromorphone Hcl Inj (*Crx) 1 Mg/Ml Syr IV PUSH 0.5 mg Q2H PRN Administration Breakthrough Pain Rated 4-6 or NPO Dextrose 1,000 mls @ 50 mls/hr 12/06/24 17:15 Dextrose 10% IV CONT .Q20H PRN if PN is interrupted Fat Emulsion Intravenous 250 mls @ 20.833 mls/hr 12/06/24 18:00 12/14/24 17:43 Lipids 20% IVPB 20.83 mls/hr Q24H CEE Administration Multivitamins 1.25 ml/ 1,002.5 mls @ 50 mls/hr 12/08/24 10:00 12/15/24 09:52 Multivitamins 1.25 ml/ Amino IV CONT 50 mls/hr Acids/Electrolytes/Dextrose .Q20H3M ECE Administration Protocol Meropenem 1 gm/ Sodium 100 mls @ 200 mls/hr 12/11/24 15:00 12/15/24 05:36 Chloride IVPB 200 mls/hr Q8HR CEE Administration Dextrose 1,000 mls @ 100 mls/hr 12/14/24 10:29 Dextrose 5% 1,000 Ml IVPB PRN PRN Hypoglycemia Protocol Insulin Aspart 3 - 6 units 12/15/24 06:00 12/15/24 05:35 Insulin Aspart (*Bkc) 100 Units/Ml SUB-Q 4 units Q6HR CEE Administration Protocol Naloxone HCl 0.1 mg 12/06/24 17:15 Naloxone Hcl 0.4 Mg/Ml Vial IV PUSH Q2M PRN Opiate Reversal Ondansetron HCl 4 mg 12/03/24 17:26 12/09/24 05:23 Ondansetron Inj 4 Mg/2 Ml Vial IV PUSH 4 mg Q4H PRN Administration Nausea And Vomiting Pantoprazole Sodium 40 mg 12/07/24 09:00 12/15/24 09:42 Pantoprazole Sodium Iv 40 Mg Vial IV PUSH 40 mg QAM CEE Administration Phenol 1 spray 12/07/24 10:05 Phenol/Sod Pheno [place] Salomon (*Bkc) MUCOUS MEM Q2H PRN Sore Throat Sodium Chloride 10 ml 12/07/24 14:00 12/15/24 05:36 Central Line Flush IV PUSH 10 ml Q8HR CEE Administration Sodium Chloride 10 ml 12/07/24 09:45 12/11/24 00:42 Central Line Flush IV PUSH 10 ml PRN PRN Administration with TPN bag changes Sodium Chloride 20 ml 12/07/24 09:45 12/11/24 05:39 Central Line Flush IV PUSH 20 ml PRN PRN Administration after blood draws Vancomycin HCl 125 mg 12/14/24 00:00 12/15/24 05:36 Vancomycin Oral 125 Mg/2.5 Ml Syrup PO 125 mg Q6HR CEE Administration Radiology Results: ITS Impressions Renal Ultrasound 12/04/24 21:30 Impression: 1: Unremarkable renal ultrasound. No stones, masses or hydronephrosis. Pulmonary Perfusion Imaging 12/05/24 18:55 IMPRESSION: 1: Normal perfusion scan. Probable shallow lung volumes. Recommend correlation with chest x-ray.. Chest/Abdomen/Pelvis CT 12/10/24 10:51 IMPRESSION: 1. Small amount of likely residual free intraperineal gas and fluid post likely revision of an ileocolic anastomosis and placement of a surgical drain. No evident organized abscess or extraluminal contrast to suggest residual anastomotic leak. 2. Wall thickening along the sigmoid colon consistent with colitis infectious or inflammatory in etiology. Differential would also include residual reactive edema related to the prior anastomotic leak and recent surgery. 3. Volume loss in both lungs with atelectasis at the bilateral lung bases including complete collapse of the right middle lobe. Superimposed pneumonia not excludable but suspicion is low. 4. Chronic mild dilation the common bile duct without evident obstructing stone or mass, likely related to prior cholecystectomy but would correlate with liver function tests. CT Brain Angiography 12/13/24 11:34 IMPRESSION: 1. Normal aging brain. No acute intracranial process or abnormally enhancing brain lesions. 2. Unremarkable cerebral CT angiogram with no hemodynamic significant stenosis, thrombosis or aneurysm. Chest X-Ray 12/13/24 12:26 IMPRESSION: 1. Persistent bibasilar atelectasis and/or airspace disease. 2. No significant change from one week prior. Abdomen/Pelvis CT 12/13/24 12:45 IMPRESSION: 1. Status post right hemicolectomy with anastomotic leak at the right lower quadrant ileocolic anastomosis. 2. Moderate bibasilar atelectasis, right greater than left with mucous bony of right middle and lower lobar bronchi. Chest CTA 12/13/24 12:45 IMPRESSION: 1. No pulmonary embolus. Sensitivity is moderately decreased by motion artifact. 2. Small lung volumes with relative elevation of right hemidiaphragm. Moderate atelectasis in the inferior lungs 3. Ascites. Labs Labs: Laboratory Results - last 24 hr 12/14/24 12/14/24 12/14/24 04:34 11:29 16:09 WBC RBC Hgb Hct MCV MCH MCHC RDW Plt Count MPV Sodium Potassium Chloride Carbon Dioxide Anion Gap BUN Creatinine Estim Creat Clear Calc Estimated GFR Glucose POC Capillary Glucose 305 H 264 H Calcium Total Bilirubin AST ALT Alkaline Phosphatase Total Protein Albumin 2.0 L 12/14/24 12/15/24 12/15/24 19:38 03:34 05:33 WBC 16.5 H RBC 2.90 L Hgb 7.8 L Hct 24.7 L MCV 85.2 MCH 26.9 MCHC 31.6 L RDW 20.2 H Plt Count 424 H MPV 12.3 H Sodium 142 Potassium 3.8 Chloride 111 H Carbon Dioxide 28 Anion Gap 3 L BUN 39 H Creatinine 0.82 Estim Creat Clear Calc Not Reportable Estimated GFR > 60 Glucose 315 H POC Capillary Glucose 273 H 296 H Calcium 7.0 L Total Bilirubin 0.3 AST 66 H ALT 43 H Alkaline Phosphatase 140 H Total Protein 4.9 L Albumin 1.9 L
--- NOTE | 2024-12-15 11:44 | P.PN_ITS ---
Progress Note: A&P Assessment and Plan (1) Ileocolic anastomotic leak: Code(s): K91.89 - Other postprocedural complications and disorders of digestive system Status: Acute Assessment and Plan: Postop day 2 after re-exploration of the abdomen and takedown of the ileocolic anastomosis due to anastomotic leak and drainage of abdominal abscess. Placement of end ileostomy and long mucous fistula. White blood cell count is up to 16,000. Drain in place without any purulent output. She continues on meropenem, vancomycin, and Flagyl. Continue TPN for now. NG tube output is less bilious today. We will clamp the NG tube since she has good ostomy output. May be the NG tube can be removed tomorrow if she tolerates clamping. Continue to watch the white blood cell count of 16,000 but if it is increased tomorrow then may need to repeat CT scan to look for any undrained fluid collections. Subjective Date/time seen: 12/15/24 11:44 Interval history: Patient awake answers questions. Has not been out of bed since surgery. Limon catheter still in place. NG tube is in place. Continues on TPN. No fever. Heart rate around 100[place] [address] today. Exam GI: Other: The abdomen is soft and nondistended. Wound VAC in place. Dressing is dry. Output from the wound VAC is serous blood-tinged. Ileostomy output is good. Minimal serous fluid output from the mucous fistula. Both ostomies are viable. JUHI drain bloody serous. Objective Data Vital Signs Vital Signs: Vital Signs - 24 hr 12/14/24 12:00 12/14/24 12:00 12/14/24 12:00 Temperature 36.4 C L Pulse Rate 112 H 110 H Respiratory Rate 20 Blood Pressure 103/65 Pulse Oximetry 93 95 Oxygen Delivery Nasal Cannula Oxygen Flow Rate 2 12/14/24 14:00 12/14/24 16:00 12/14/24 16:00 Temperature 36.5 C Pulse Rate 110 H 108 H Respiratory Rate 22 H Blood Pressure 108/62 Pulse Oximetry 94 94 Oxygen Delivery Nasal Cannula Oxygen Flow Rate 1 12/14/24 16:00 12/14/24 18:00 12/14/24 19:52 Temperature 36.9 C Pulse Rate 107 H 107 H 112 H Respiratory Rate 18 Blood Pressure 107/67 Pulse Oximetry 95 Oxygen Delivery Oxygen Flow Rate 12/14/24 20:00 12/14/24 20:00 12/14/24 20:23 Temperature Pulse Rate 112 H Respiratory Rate Blood Pressure Pulse Oximetry 98 95 Oxygen Delivery Nasal Cannula Nasal Cannula Oxygen Flow Rate 2 1 12/14/24 22:00 12/14/24 22:30 12/15/24 00:00 Temperature 36.6 C Pulse Rate 109 H 105 H Respiratory Rate 18 Blood Pressure 109/68 Pulse Oximetry 95 96 Oxygen Delivery Nasal Cannula Oxygen Flow Rate 1 12/15/24 00:00 12/15/24 00:00 12/15/24 01:30 Temperature Pulse Rate 105 H Respiratory Rate Blood Pressure Pulse Oximetry 92 90 Oxygen Delivery Room Air Nasal Cannula Oxygen Flow Rate 1 12/15/24 02:00 12/15/24 03:43 12/15/24 03:51 Temperature 36.6 C Pulse Rate 104 H 107 H Respiratory Rate 20 Blood Pressure 114/68 Pulse Oximetry 95 95 Oxygen Delivery Nasal Cannula Oxygen Flow Rate 1 12/15/24 04:00 12/15/24 06:00 12/15/24 06:38 Temperature Pulse Rate 105 H 107 H Respiratory Rate Blood Pressure Pulse Oximetry 94 Oxygen Delivery Room Air Oxygen Flow Rate 12/15/24 08:00 Temperature 37.2 C Pulse Rate 107 H Respiratory Rate 23 H Blood Pressure 108/62 Pulse Oximetry 93 Oxygen Delivery Oxygen Flow Rate Intake/Output Intake/Output: Intake & Output 12/12/24 12/13/24 12/14/24 12/15/24 23:59 23:59 23:59 23:59 Intake Total 2077.5 1677.5 1602.5 1071.7 Output Total 2035 2705 2030 675 Balance 42.5 -1027.5 -427.5 396.7 Meds/Results Medications: Active Medications Generic Name Dose Route Start Last Admin Trade Name Freq PRN Reason Stop Dose Admin Acetaminophen 650 mg 12/10/24 04:32 12/11/24 20:18 Acetaminophen 650 Mg Suppository RECTAL 650 mg Q4H PRN Administration Mild Pain (1-3) or Fever Dextrose 12.5 gm 12/14/24 10:29 Dextrose 50% 25 Gm/50 Ml Syringe IV PUSH PRN PRN Hypoglycemia Protocol Enoxaparin Sodium 40 mg 12/07/24 09:00 12/13/24 08:46 Enoxaparin 40 Mg/0.4 Ml Syringe SUB-Q 40 mg On Hold: 12/13/24 10:04 DAILY CEE Administration Glucose 15 gm 12/14/24 10:29 Glucose Oral Gel 15 Gm Of Glucse In 37.5 Gm Tube PO PRN PRN Hypoglycemia Protocol Hydromorphone HCl 1 mg 12/06/24 17:15 12/15/24 09:47 Hydromorphone Hcl Inj (*Crx) 1 Mg/Ml Syr IV PUSH 1 mg Q2H PRN Administration Breakthrough Pain Rated 7-10 or NPO Hydromorphone HCl 0.5 mg 12/06/24 17:15 12/15/24 00:27 Hydromorphone Hcl Inj (*Crx) 1 Mg/Ml Syr IV PUSH 0.5 mg Q2H PRN Administration Breakthrough Pain Rated 4-6 or NPO Dextrose 1,000 mls @ 50 mls/hr 12/06/24 17:15 Dextrose 10% IV CONT .Q20H PRN if PN is interrupted Fat Emulsion Intravenous 250 mls @ 20.833 mls/hr 12/06/24 18:00 12/14/24 17:43 Lipids 20% IVPB 20.83 mls/hr Q24H CEE Administration Multivitamins 1.25 ml/ 1,002.5 mls @ 50 mls/hr 12/08/24 10:00 12/15/24 09:52 Multivitamins 1.25 ml/ Amino IV CONT 50 mls/hr Acids/Electrolytes/Dextrose .Q20H3M CEE Administration Protocol Meropenem 1 gm/ Sodium 100 mls @ 200 mls/hr 12/11/24 15:00 12/15/24 05:36 Chloride IVPB 200 mls/hr Q8HR CEE Administration Dextrose 1,000 mls @ 100 mls/hr 12/14/24 10:29 Dextrose 5% 1,000 Ml IVPB PRN PRN Hypoglycemia Protocol Insulin Aspart 3 - 6 units 12/15/24 06:00 12/15/24 05:35 Insulin Aspart (*Bkc) 100 Units/Ml SUB-Q 4 units Q6HR CEE Administration Protocol Naloxone HCl 0.1 mg 12/06/24 17:15 Naloxone Hcl 0.4 Mg/Ml Vial IV PUSH Q2M PRN Opiate Reversal Ondansetron HCl 4 mg 12/03/24 17:26 12/09/24 05:23 Ondansetron Inj 4 Mg/2 Ml Vial IV PUSH 4 mg Q4H PRN Administration Nausea And Vomiting Pantoprazole Sodium 40 mg 12/07/24 09:00 12/15/24 09:42 Pantoprazole Sodium Iv 40 Mg Vial IV PUSH 40 mg QAM CEE Administration Phenol 1 spray 12/07/24 10:05 Phenol/Sod Pheno [place] Sal[place] (*Bkc) MUCOUS MEM Q2H PRN Sore Throat Sodium Chloride 10 ml 12/07/24 14:00 12/15/24 05:36 Central Line Flush IV PUSH 10 ml Q8HR CEE Administration Sodium Chloride 10 ml 12/07/24 09:45 12/11/24 00:42 Central Line Flush IV PUSH 10 ml PRN PRN Administration with TPN bag changes Sodium Chloride 20 ml 12/07/24 09:45 12/11/24 05:39 Central Line Flush IV PUSH 20 ml PRN PRN Administration after blood draws Vancomycin HCl 125 mg 12/14/24 00:00 12/15/24 05:36 Vancomycin Oral 125 Mg/2.5 Ml Syrup PO 125 mg Q6HR CEE Administration Radiology Results: ITS Impressions Renal Ultrasound 12/04/24 21:30 Impression: 1: Unremarkable renal ultrasound. No stones, masses or hydronephrosis. Pulmonary Perfusion Imaging 12/05/24 18:55 IMPRESSION: 1: Normal perfusion scan. Probable shallow lung volumes. Recommend correlation with chest x-ray.. Chest/Abdomen/Pelvis CT 12/10/24 10:51 IMPRESSION: 1. Small amount of likely residual free intraperineal gas and fluid post likely revision of an ileocolic anastomosis and placement of a surgical drain. No evident organized abscess or extraluminal contrast to suggest residual anastomotic leak. 2. Wall thickening along the sigmoid colon consistent with colitis infectious or inflammatory in etiology. Differential would also include residual reactive edema related to the prior anastomotic leak and recent surgery. 3. Volume loss in both lungs with atelectasis at the bilateral lung bases including complete collapse of the right middle lobe. Superimposed pneumonia not excludable but suspicion is low. 4. Chronic mild dilation the common bile duct without evident obstructing stone or mass, likely related to prior cholecystectomy but would correlate with liver function tests. CT Brain Angiography 12/13/24 11:34 IMPRESSION: 1. Normal aging brain. No acute intracranial process or abnormally enhancing brain lesions. 2. Unremarkable cerebral CT angiogram with no hemodynamic significant stenosis, thrombosis or aneurysm. Chest X-Ray 12/13/24 12:26 IMPRESSION: 1. Persistent bibasilar atelectasis and/or airspace disease. 2. No significant change from one week prior. Abdomen/Pelvis CT 12/13/24 12:45 IMPRESSION: 1. Status post right hemicolectomy with anastomotic leak at the right lower quadrant ileocolic anastomosis. 2. Moderate bibasilar atelectasis, right greater than left with mucous bony of right middle and lower lobar bronchi. Chest CTA 12/13/24 12:45 IMPRESSION: 1. No pulmonary embolus. Sensitivity is moderately decreased by motion artifact. 2. Small lung volumes with relative elevation of right hemidiaphragm. Moderate atelectasis in the inferior lungs 3. Ascites. Labs Labs: Laboratory Results - last 24 hr 12/14/24 12/14/24 12/14/24 11:29 16:09 19:38 WBC RBC Hgb Hct MCV MCH MCHC RDW Plt Count MPV Sodium Potassium Chloride Carbon Dioxide Anion Gap BUN Creatinine Estim Creat Clear Calc Estimated GFR Glucose POC Capillary Glucose 305 H 264 H 273 H Calcium Total Bilirubin AST ALT Alkaline Phosphatase Total Protein Albumin 12/15/24 12/15/24 12/15/24 03:34 05:33 11:17 WBC 16.5 H RBC 2.90 L Hgb 7.8 L Hct 24.7 L MCV 85.2 MCH 26.9 MCHC 31.6 L RDW 20.2 H Plt Count 424 H MPV 12.3 H Sodium 142 Potassium 3.8 Chloride 111 H Carbon Dioxide 28 Anion Gap 3 L BUN 39 H Creatinine 0.82 Estim Creat Clear Calc Not Reportable Estimated GFR > 60 Glucose 315 H POC Capillary Glucose 296 H 250 H Calcium 7.0 L Total Bilirubin 0.3 AST 66 H ALT 43 H Alkaline Phosphatase 140 H Total Protein 4.9 L Albumin 1.9 L
[2024-12-15 16:46] LABS: Triglycerides 340 mg/dL (<150)
[2024-12-15] MEDS: FAT EMULSIONS IV 20% 250 ML 20.83 ML IVPB (18:05)
[2024-12-16] VITALS (16 sets, daily range): BP systolic 105–129; BP diastolic 60–70; PULSE 105–119; RESP 18–28; TEMP 36.6–37.6; O2SAT 92–100; BMI 10.0
[2024-12-16] MEDS: VANCOMYCIN ORAL 125 MG/2.5 ML SYRUP PO ×5 (00:15→23:34)
[2024-12-16] MEDS: INSULIN ASPART (*BKC) 100 UNITS/ML SUB-Q ×5 (00:15→23:58)
[2024-12-16 05:10] LABS: Hematocrit 24.4 % (37.0-47.0); Hemoglobin 7.5 g/dL (12.0-15.0); Immature Granulocyte Percent A 1.8 % (0-0.5); Lymphocytes Absolute Auto 0.92 K/mm3 (0.9-3.2); Mean Corpuscular HGB Conc 30.7 g/dl (32-36); Mean Corpuscular Hemoglobin 26.4 pg (26-34); Mean Corpuscular Volume 85.9 fl (80-100); Nucleated Red Blood Cells Absolute Auto 0.140 K/mm3 (0.0-0.012); Nucleated Red Blood Cells Perc 0.8 % (0.0-0.2); Platelet Count Result 451 k/mm3 (150-375); Red Blood Count 2.84 M/mm3 (4.2-5.4); White Blood Count 17.0 K/mm3 (4.5-10.0)
[2024-12-16 05:27] LABS: INR 1.0; Prothrombin Time 13.6 Seconds (11.1-14.7)
[2024-12-16 05:28] LABS: Partial Thromboplastin Time 27.9 Seconds (22.3-36.8)
[2024-12-16] MEDS: MEROPENEM 1 GM in SODIUM CHLORIDE 0.9% IV 100 ML 200 ML IVPB (05:41)
[2024-12-16] MEDS: CENTRAL LINE FLUSH 10 ML IV PUSH ×3 (05:42→23:35)
[2024-12-16 05:51] LABS: Alanine Aminotransferase 47 U/L (6-35); Albumin Level 2.0 g/dL (3.5-5.1); Alkaline Phosphatase 155 U/L (38-126); Anion Gap 3 mmol/L (4-12); Aspartate Amino Transferase 79 U/L (14-36); Bilirubin,Total 0.4 mg/dL (0.2-1.3); Blood Urea Nitrogen 30 mg/dL (7-17); Calcium 7.2 mg/dL (8.4-10.2); Carbon Dioxide 29 mmol/L (22-30); Chloride 112 mmol/L (98-107); Estimated Glomerular Filt Rate > 60; Glucose 225 mg/dL (65-110); Magnesium 2.9 mg/dL (1.6-2.3); Potassium 3.6 mmol/L (3.4-5.0); Sodium 144 mmol/L (137-145); Total Protein 5.1 g/dL (6.3-8.2)
[2024-12-16 06:02] LABS: Transferrin 161 mg/dL (206-381)
[2024-12-16] MEDS: PANTOPRAZOLE SODIUM IV 40 MG VIAL IV PUSH (08:40)
[2024-12-16] MEDS: AMINO ACIDS 5%/D15W/E-LYTES/CA 1,000 ML with MULTIVITAMINS-12 INJ VIAL 1 1.25 ML, MULTI... 50 ML IV CONT (09:00)
--- NOTE | 2024-12-16 12:30 | PM.PNGS ---
Progress Note: A&P Assessment and Plan (1) Ileocolic anastomotic leak: Code(s): K91.89 - Other postprocedural complications and disorders of digestive system Status: Acute Assessment and Plan: NG has been clamped, will try clear liquids today, possibly remove NG later today or tomorrow. Vancomycin will likely need to be administered through the mucus fistula rather than PO. Waiting for more time to heal prior to changing orders. Continue PT/OT Continue IV antibiotics (2) Protein calorie malnutrition: Qualifiers: Protein-calorie malnutrition severity: severe Qualified Code(s): E43 - Unspecified severe protein-calorie malnutrition Code(s): E46 - Unspecified protein-calorie malnutrition Status: Acute Assessment and Plan: Continue TPN, will discontinue once tolerating full liquids and able to get enough adequate intake. Subjective Subjective Date/Time Seen: 12/16/24 12:30 Interval history: Wound vac and ostomy appliances changed by Wound care nurses and Elyssa Harris. Patient wanting to get out of the hospital. She says her breathing is much better. She still appears to be breathing rapidly. Abdominal pain controlled. Exam GI: Other: wound vac in place with serosanguinous drainage JUHI with serosanguinous, slightly cloudy output Ileostomy pink with small amount of stool in bag Mucus fistula slightly dark but well approximated, no output Objective Data Vital Signs Vital Signs: Vital Signs - 24 hr 12/15/24 14:00 12/15/24 16:00 12/15/24 16:00 Temperature 98.5 F Pulse Rate 106 H 112 H Respiratory Rate 25 H Blood Pressure 100/68 Pulse Oximetry 93 95 Oxygen Delivery Room Air Oxygen Flow Rate 12/15/24 16:00 12/15/24 18:00 12/15/24 20:00 Temperature 98.4 F Pulse Rate 112 H 106 H 104 H Respiratory Rate 18 Blood Pressure 109/63 Pulse Oximetry 97 Oxygen Delivery Oxygen Flow Rate 12/15/24 20:00 12/15/24 20:00 12/15/24 20:24 Temperature Pulse Rate 106 H 108 H Respiratory Rate 20 Blood Pressure Pulse Oximetry 98 97 Oxygen Delivery Nasal Cannula Nasal Cannula Oxygen Flow Rate 2 1 12/15/24 22:00 12/15/24 22:00 12/16/24 00:00 Temperature 97.8 F Pulse Rate 106 H 106 H Respiratory Rate 20 Blood Pressure 105/61 Pulse Oximetry 96 96 Oxygen Delivery Nasal Cannula Oxygen Flow Rate 1 12/16/24 00:00 12/16/24 00:00 12/16/24 02:00 Temperature Pulse Rate 107 H 106 H Respiratory Rate Blood Pressure Pulse Oximetry 97 Oxygen Delivery Nasal Cannula Oxygen Flow Rate 1 12/16/24 04:00 12/16/24 04:00 12/16/24 05:14 Temperature 99.7 F H Pulse Rate 105 H 105 H Respiratory Rate 22 H Blood Pressure 118/60 Pulse Oximetry 95 95 Oxygen Delivery Nasal Cannula Oxygen Flow Rate 1 12/16/24 06:00 12/16/24 08:00 12/16/24 08:00 Temperature 98.1 F Pulse Rate 110 H 111 H 109 H Respiratory Rate 24 H Blood Pressure 120/70 Pulse Oximetry 96 Oxygen Delivery Oxygen Flow Rate 12/16/24 08:44 12/16/24 09:00 12/16/24 10:00 Temperature Pulse Rate 112 H Respiratory Rate Blood Pressure Pulse Oximetry 95 93 Oxygen Delivery Nasal Cannula Nasal Cannula Oxygen Flow Rate 1 1 12/16/24 12:00 12/16/24 12:00 Temperature Pulse Rate 116 H Respiratory Rate Blood Pressure Pulse Oximetry 92 Oxygen Delivery Nasal Cannula Oxygen Flow Rate 1 Intake/Output Intake/Output: Intake & Output 12/13/24 12/14/24 12/15/24 12/16/24 23:59 23:59 23:59 23:59 Intake Total 2027.5 1602.5 1621.7 1332.5 Output Total 2705 2030 1505 820 Balance -677.5 -427.5 116.7 512.5 Meds/Results Medications: Active Medications Generic Name Dose Route Start Last Admin Trade Name Freq PRN Reason Stop Dose Admin Acetaminophen 650 mg 12/10/24 04:32 12/11/24 20:18 Acetaminophen 650 Mg Suppository RECTAL 650 mg Q4H PRN Administration Mild Pain (1-3) or Fever Dextrose 12.5 gm 12/14/24 10:29 Dextrose 50% 25 Gm/50 Ml Syringe IV PUSH PRN PRN Hypoglycemia Protocol Enoxaparin Sodium 40 mg 12/07/24 09:00 12/13/24 08:46 Enoxaparin 40 Mg/0.4 Ml Syringe SUB-Q 40 mg On Hold: 12/13/24 10:04 DAILY CEE Administration Resume: 12/17/24 08:00 Glucose 15 gm 12/14/24 10:29 Glucose Oral Gel 15 Gm Of Glucse In 37.5 Gm Tube PO PRN PRN Hypoglycemia Protocol Hydromorphone HCl 1 mg 12/06/24 17:15 12/15/24 09:47 Hydromorphone Hcl Inj (*Crx) 1 Mg/Ml Syr IV PUSH 1 mg Q2H PRN Administration Breakthrough Pain Rated 7-10 or NPO Hydromorphone HCl 0.5 mg 12/06/24 17:15 12/15/24 21:44 Hydromorphone Hcl Inj (*Crx) 1 Mg/Ml Syr IV PUSH 0.5 mg Q2H PRN Administration Breakthrough Pain Rated 4-6 or NPO Dextrose 1,000 mls @ 50 mls/hr 12/06/24 17:15 Dextrose 10% IV CONT .Q20H PRN if PN is interrupted Fat Emulsion Intravenous 250 mls @ 20.833 mls/hr 12/06/24 18:00 12/16/24 06:30 Lipids 20% IVPB Infused Q24H CEE Infusion Multivitamins 1.25 ml/ 1,002.5 mls @ 50 mls/hr 12/08/24 10:00 12/16/24 09:00 Multivitamins 1.25 ml/ Amino IV CONT 50 mls/hr Acids/Electrolytes/Dextrose .Q20H3M CEE Administration Protocol Meropenem 1 gm/ Sodium 100 mls @ 200 mls/hr 12/11/24 15:00 12/16/24 05:41 Chloride IVPB 200 mls/hr Q8HR CEE Administration Dextrose 1,000 mls @ 100 mls/hr 12/14/24 10:29 Dextrose 5% 1,000 Ml IVPB PRN PRN Hypoglycemia Protocol Insulin Aspart 3 - 6 units 12/15/24 06:00 12/16/24 05:42 Insulin Aspart (*Bkc) 100 Units/Ml SUB-Q 3 units Q6HR CEE Administration Protocol Miscellaneous Information 1 each 12/16/24 00:01 Please Renew Dilaudid_. Per [employer] Procedure, It Will Discontinue If Not Renewed XX 01/15/25 00:00 CLARIFY CEE Naloxone HCl 0.1 mg 12/06/24 17:15 Naloxone Hcl 0.4 Mg/Ml Vial IV PUSH Q2M PRN Opiate Reversal Ondansetron HCl 4 mg 12/03/24 17:26 12/09/24 05:23 Ondansetron Inj 4 Mg/2 Ml Vial IV PUSH 4 mg Q4H PRN Administration Nausea And Vomiting Pantoprazole Sodium 40 mg 12/07/24 09:00 12/16/24 08:40 Pantoprazole Sodium Iv 40 Mg Vial IV PUSH 40 mg QAM CEE Administration Phenol 1 spray 12/07/24 10:05 Phenol/Sod Pheno [place] Salomon (*Bkc) MUCOUS MEM Q2H PRN Sore Throat Sodium Chloride 10 ml 12/07/24 14:00 12/16/24 05:42 Central Line Flush IV PUSH 10 ml Q8HR CEE Administration Sodium Chloride 10 ml 12/07/24 09:45 12/11/24 00:42 Central Line Flush IV PUSH 10 ml PRN PRN Administration with TPN bag changes Sodium Chloride 20 ml 12/07/24 09:45 12/11/24 05:39 Central Line Flush IV PUSH 20 ml PRN PRN Administration after blood draws Vancomycin HCl 125 mg 12/14/24 00:00 12/16/24 11:29 Vancomycin Oral 125 Mg/2.5 Ml Syrup PO 125 mg Q6HR CEE Administration Radiology Results: ITS Impressions Renal Ultrasound 12/04/24 21:30 Impression: 1: Unremarkable renal ultrasound. No stones, masses or hydronephrosis. Pulmonary Perfusion Imaging 12/05/24 18:55 IMPRESSION: 1: Normal perfusion scan. Probable shallow lung volumes. Recommend correlation with chest x-ray.. Chest/Abdomen/Pelvis CT 12/10/24 10:51 IMPRESSION: 1. Small amount of likely residual free intraperineal gas and fluid post likely revision of an ileocolic anastomosis and placement of a surgical drain. No evident organized abscess or extraluminal contrast to suggest residual anastomotic leak. 2. Wall thickening along the sigmoid colon consistent with colitis infectious or inflammatory in etiology. Differential would also include residual reactive edema related to the prior anastomotic leak and recent surgery. 3. Volume loss in both lungs with atelectasis at the bilateral lung bases including complete collapse of the right middle lobe. Superimposed pneumonia not excludable but suspicion is low. 4. Chronic mild dilation the common bile duct without evident obstructing stone or mass, likely related to prior cholecystectomy but would correlate with liver function tests. CT Brain Angiography 12/13/24 11:34 IMPRESSION: 1. Normal aging brain. No acute intracranial process or abnormally enhancing brain lesions. 2. Unremarkable cerebral CT angiogram with no hemodynamic significant stenosis, thrombosis or aneurysm. Chest X-Ray 12/13/24 12:26 IMPRESSION: 1. Persistent bibasilar atelectasis and/or airspace disease. 2. No significant change from one week prior. Abdomen/Pelvis CT 12/13/24 12:45 IMPRESSION: 1. Status post right hemicolectomy with anastomotic leak at the right lower quadrant ileocolic anastomosis. 2. Moderate bibasilar atelectasis, right greater than left with mucous bony of right middle and lower lobar bronchi. Chest CTA 12/13/24 12:45 IMPRESSION: 1. No pulmonary embolus. Sensitivity is moderately decreased by motion artifact. 2. Small lung volumes with relative elevation of right hemidiaphragm. Moderate atelectasis in the inferior lungs 3. Ascites. Labs Labs: Laboratory Results - last 24 hr 12/13/24 12/15/24 12/15/24 15:23 03:34 14:54 WBC RBC Hgb Hct MCV MCH MCHC RDW Plt Count MPV Immature Gran % (Auto) Neut % (Auto) Lymph % (Auto) [place] % (Auto) Eos % (Auto) Baso % (Auto) Lymph # (Auto) [place] # (Auto) Eos # (Auto) Baso # (Auto) Abs Immat Gran (auto) Absolute Neuts (auto) Absolute Nucleated RBC Nucleated RBC % PT INR APTT Sodium Potassium Chloride Carbon Dioxide Anion Gap BUN Creatinine Estim Creat Clear Calc Estimated GFR Glucose POC Capillary Glucose 249 H Calcium Magnesium Transferrin Total Bilirubin AST ALT Alkaline Phosphatase Total Protein Albumin Triglycerides 340 H Crossmatch See Detail 12/15/24 12/16/24 12/16/24 18:14 00:12 04:46 WBC 17.0 H RBC 2.84 L Hgb 7.5 L Hct 24.4 L MCV 85.9 MCH 26.4 MCHC 30.7 L RDW 20.7 H Plt Count 451 H MPV 12.2 H Immature Gran % (Auto) 1.8 H Neut % (Auto) 87.7 H Lymph % (Auto) 5.4 L [place] % (Auto) 4.2 Eos % (Auto) 0.5 Baso % (Auto) 0.4 Lymph # (Auto) 0.92 [place] # (Auto) 0.7 H Eos # (Auto) 0.1 Baso # (Auto) 0.1 Abs Immat Gran (auto) 0.30 H Absolute Neuts (auto) 14.9 H Absolute Nucleated RBC 0.140 H Nucleated RBC % 0.8 H PT 13.6 INR 1.0 APTT 27.9 Sodium 144 Potassium 3.6 Chloride 112 H Carbon Dioxide 29 Anion Gap 3 L BUN 30 H Creatinine 0.66 L Estim Creat Clear Calc Not Reportable Estimated GFR > 60 Glucose 225 H POC Capillary Glucose 203 H 220 H Calcium 7.2 L Magnesium 2.9 H Transferrin 161 L Total Bilirubin 0.4 AST 79 H ALT 47 H Alkaline Phosphatase 155 H Total Protein 5.1 L Albumin 2.0 L Triglycerides Crossmatch 12/16/24 12/16/24 05:40 12:05 WBC RBC Hgb Hct MCV MCH MCHC RDW Plt Count MPV Immature Gran % (Auto) Neut % (Auto) Lymph % (Auto) [place] % (Auto) Eos % (Auto) Baso % (Auto) Lymph # (Auto) [place] # (Auto) Eos # (Auto) Baso # (Auto) Abs Immat Gran (auto) Absolute Neuts (auto) Absolute Nucleated RBC Nucleated RBC % PT INR APTT Sodium Potassium Chloride Carbon Dioxide Anion Gap BUN Creatinine Estim Creat Clear Calc Estimated GFR Glucose POC Capillary Glucose 209 H 253 H Calcium Magnesium Transferrin Total Bilirubin AST ALT Alkaline Phosphatase Total Protein Albumin Triglycerides Crossmatch
[2024-12-16] MEDS: FLUCONAZOLE 400 MG/NACL 200 ML 400 MG/200 ML BAG 100 MG IVPB (14:20)
--- NOTE | 2024-12-16 14:46 | P.PNINF_ITS ---
Progress Note: A&P Assessment and Plan (1) Intra-abdominal abscess post-procedure: Code(s): T81.43XA - Infection following a procedure, organ and space surgical site, initial encounter; K65.1 - Peritoneal abscess Status: Acute Assessment and Plan: As below Plan Assessment and plan (1) Intra-abdominal abscess post-procedure: Code(s): T81.43XA - Infection following a procedure, organ and space surgical site, initial encounter; K65.1 - Peritoneal abscess Status: Acute Assessment and Plan: -Abscess secondary to ileocolic anastomotic leak -Manaagement as per surgical service (2) Ileocolic anastomotic leak: Code(s): K91.89 - Other postprocedural complications and disorders of digestive system Status: Acute Assessment and Plan: -Management as per surgical service (3) History of partial colectomy: Code(s): Z90.49 - Acquired absence of other specified parts of digestive tract Status: Resolved (4) Adenocarcinoma of colon: Code(s): C18.9 - Malignant neoplasm of colon, unspecified Status: Acute Assessment and Plan: -Management as per primary service (5) Cancer of right colon: Onset Date: ~10/2024 Code(s): C18.2 - Malignant neoplasm of ascending colon Status: Acute Assessment and Plan: -Management as per primary service (6) C. difficile diarrhea: Onset Date: ~04/01/24 Code(s): A04.72 - Enterocolitis due to Clostridium difficile, not specified as recurrent Status: Inactive Assessment and Plan: -Patient has history of C.difficile infection starting in March 2024 -Has new diarrhea as of 12/12/24 Plan -Change meropenem to zosyn. follow mental status. -Adding fluconazole and IV vancomycin empirically. Will defer repeat imaging today if felt necessary by surgery. Will follow up white blood cell count trend tomorrow. -Continue enteral Vancomycin day 2 for treatment of recurrent C.difficile infection -Management of ileocolonic anastomotic leak as per surgical service -Continue supportive measures Discussed with patient. All questions answered Patient was seen via video telehealth consultation with the assistance of staff. Chart, data, and patient independently reviewed. Patient was located at [facility] while I was located in my [place] office. Received verbal consent from patient. Subjective Date/time seen: 12/16/24 14:46 Interval history: More confused today. More combative. Went to surgery on 12/13. Operative noted. Exam Narrative: Gen: more combative today. HEENT: NG tube in place; clamped. Pulm: minmal conversational dyspnea Abd: distended, soft, wound vac in place; RLQ drain with new bilious output : urinary catheterin place Ext: peripheral edema Lines: RUE PICC intact Objective Data Vital Signs Vital Signs: Vital Signs - 24 hr 12/15/24 16:00 12/15/24 16:00 12/15/24 16:00 Temperature 36.9 C Pulse Rate 112 H 112 H Respiratory Rate 25 H Blood Pressure 100/68 Pulse Oximetry 93 95 Oxygen Delivery Room Air Oxygen Flow Rate 12/15/24 18:00 12/15/24 20:00 12/15/24 20:00 Temperature 36.9 C Pulse Rate 106 H 104 H Respiratory Rate 18 Blood Pressure 109/63 Pulse Oximetry 97 98 Oxygen Delivery Nasal Cannula Oxygen Flow Rate 2 12/15/24 20:00 12/15/24 20:24 12/15/24 22:00 Temperature Pulse Rate 106 H 108 H Respiratory Rate 20 Blood Pressure Pulse Oximetry 97 96 Oxygen Delivery Nasal Cannula Nasal Cannula Oxygen Flow Rate 1 1 12/15/24 22:00 12/16/24 00:00 12/16/24 00:00 Temperature 36.6 C Pulse Rate 106 H 106 H Respiratory Rate 20 Blood Pressure 105/61 Pulse Oximetry 96 97 Oxygen Delivery Nasal Cannula Oxygen Flow Rate 1 12/16/24 00:00 12/16/24 02:00 12/16/24 04:00 Temperature Pulse Rate 107 H 106 H Respiratory Rate Blood Pressure Pulse Oximetry 95 Oxygen Delivery Nasal Cannula Oxygen Flow Rate 1 12/16/24 04:00 12/16/24 05:14 12/16/24 06:00 Temperature 37.6 C H Pulse Rate 105 H 105 H 110 H Respiratory Rate 22 H Blood Pressure 118/60 Pulse Oximetry 95 Oxygen Delivery Oxygen Flow Rate 12/16/24 08:00 12/16/24 08:00 12/16/24 08:44 Temperature 36.7 C Pulse Rate 111 H 109 H Respiratory Rate 24 H Blood Pressure 120/70 Pulse Oximetry 96 95 Oxygen Delivery Nasal Cannula Oxygen Flow Rate 1 12/16/24 09:00 12/16/24 10:00 12/16/24 12:00 Temperature Pulse Rate 112 H 116 H Respiratory Rate Blood Pressure Pulse Oximetry 93 Oxygen Delivery Nasal Cannula Oxygen Flow Rate 1 12/16/24 12:00 12/16/24 12:00 12/16/24 14:00 Temperature 37.2 C Pulse Rate 119 H 116 H Respiratory Rate 28 H Blood Pressure 113/65 Pulse Oximetry 92 100 Oxygen Delivery Nasal Cannula Oxygen Flow Rate 1 Intake/Output Intake/Output: Intake & Output 12/13/24 12/14/24 12/15/24 12/16/24 23:59 23:59 23:59 23:59 Intake Total 2027.5 1602.5 1621.7 1332.5 Output Total 2705 2030 1505 820 Balance -677.5 -427.5 116.7 512.5 Meds/Results Medications: Active Medications Generic Name Dose Route Start Last Admin Trade Name Freq PRN Reason Stop Dose Admin Acetaminophen 650 mg 12/10/24 04:32 12/11/24 20:18 Acetaminophen 650 Mg Suppository RECTAL 650 mg Q4H PRN Administration Mild Pain (1-3) or Fever Dextrose 12.5 gm 12/14/24 10:29 Dextrose 50% 25 Gm/50 Ml Syringe IV PUSH PRN PRN Hypoglycemia Protocol Enoxaparin Sodium 40 mg 12/07/24 09:00 12/13/24 08:46 Enoxaparin 40 Mg/0.4 Ml Syringe SUB-Q 40 mg On Hold: 12/13/24 10:04 DAILY CEE Administration Resume: 12/17/24 08:00 Glucose 15 gm 12/14/24 10:29 Glucose Oral Gel 15 Gm Of Glucse In 37.5 Gm Tube PO PRN PRN Hypoglycemia Protocol Hydromorphone HCl 1 mg 12/06/24 17:15 12/15/24 09:47 Hydromorphone Hcl Inj (*Crx) 1 Mg/Ml Syr IV PUSH 1 mg Q2H PRN Administration Breakthrough Pain Rated 7-10 or NPO Hydromorphone HCl 0.5 mg 12/06/24 17:15 12/15/24 21:44 Hydromorphone Hcl Inj (*Crx) 1 Mg/Ml Syr IV PUSH 0.5 mg Q2H PRN Administration Breakthrough Pain Rated 4-6 or NPO Dextrose 1,000 mls @ 50 mls/hr 12/06/24 17:15 Dextrose 10% IV CONT .Q20H PRN if PN is interrupted Fat Emulsion Intravenous 250 mls @ 20.833 mls/hr 12/06/24 18:00 12/16/24 06:30 Lipids 20% IVPB Infused Q24H CEE Infusion Multivitamins 1.25 ml/ 1,002.5 mls @ 50 mls/hr 12/08/24 10:00 12/16/24 09:00 Multivitamins 1.25 ml/ Amino IV CONT 50 mls/hr Acids/Electrolytes/Dextrose .Q20H3M CEE Administration Protocol Dextrose 1,000 mls @ 100 mls/hr 12/14/24 10:29 Dextrose 5% 1,000 Ml IVPB PRN PRN Hypoglycemia Protocol Fluconazole 400 mg in 200 mls @ 100 mls/hr 12/16/24 13:25 12/16/24 14:20 Diflucan 400 Mg/Nacl 200 Ml IVPB 12/16/24 15:24 100 mls/hr ONCE ONE Administration Vancomycin HCl 1,750 mg in 500 mls @ 250 mls/hr 12/16/24 15:00 Vancomycin 1,750 Mg/Ns 500 Ml IVPB 12/16/24 16:59 ONCE ONE Vancomycin HCl 1,250 mg in 250 mls @ 166.667 mls/hr 12/17/24 09:00 Vancomycin 1,250 Mg/Ns 250 Ml IVPB Q18H [facility] Piperacillin Sod/Tazobactam 50 mls @ 100 mls/hr 12/16/24 18:00 Sod 3.375 gm/ Sodium Chloride IVPB Q6HR [facility] Insulin Aspart 3 - 6 units 12/15/24 06:00 12/16/24 12:30 Insulin Aspart (*Bkc) 100 Units/Ml SUB-Q 4 units Q6HR CEE Administration Protocol Naloxone HCl 0.1 mg 12/06/24 17:15 Naloxone Hcl 0.4 Mg/Ml Vial IV PUSH Q2M PRN Opiate Reversal Ondansetron HCl 4 mg 12/03/24 17:26 12/09/24 05:23 Ondansetron Inj 4 Mg/2 Ml Vial IV PUSH 4 mg Q4H PRN Administration Nausea And Vomiting Pantoprazole Sodium 40 mg 12/07/24 09:00 12/16/24 08:40 Pantoprazole Sodium Iv 40 Mg Vial IV PUSH 40 mg QAM CEE Administration Phenol 1 spray 12/07/24 10:05 Phenol/Sod Pheno [place] (*Bkc) MUCOUS MEM Q2H PRN Sore Throat Sodium Chloride 10 ml 12/07/24 14:00 12/16/24 14:20 Central Line Flush IV PUSH 10 ml Q8HR CEE Administration Sodium Chloride 10 ml 12/07/24 09:45 12/11/24 00:42 Central Line Flush IV PUSH 10 ml PRN PRN Administration with TPN bag changes Sodium Chloride 20 ml 12/07/24 09:45 12/11/24 05:39 Central Line Flush IV PUSH 20 ml PRN PRN Administration after blood draws Vancomycin HCl 125 mg 12/14/24 00:00 12/16/24 11:29 Vancomycin Oral 125 Mg/2.5 Ml Syrup PO 125 mg Q6HR CEE Administration Radiology Results: ITS Impressions Renal Ultrasound 12/04/24 21:30 Impression: 1: Unremarkable renal ultrasound. No stones, masses or hydronephrosis. Pulmonary Perfusion Imaging 12/05/24 18:55 IMPRESSION: 1: Normal perfusion scan. Probable shallow lung volumes. Recommend correlation with chest x-ray.. Chest/Abdomen/Pelvis CT 12/10/24 10:51 IMPRESSION: 1. Small amount of likely residual free intraperineal gas and fluid post likely revision of an ileocolic anastomosis and placement of a surgical drain. No evident organized abscess or extraluminal contrast to suggest residual anas tomotic leak. 2. Wall thickening along the sigmoid colon consistent with colitis infectious or inflammatory in etiology. Differential would also include residual reactive edema related to the prior anastomotic leak and recent surgery. 3. Volume loss in both lungs with atelectasis at the bilateral lung bases including complete collapse of the right middle lobe. Superimposed pneumonia not excludable but suspicion is low. 4. Chronic mild dilation the common bile duct without evident obstructing stone or mass, likely related to prior cholecystectomy but would correlate with liver function tests. CT Brain Angiography 12/13/24 11:34 IMPRESSION: 1. Normal aging brain. No acute intracranial process or abnormally enhancing brain lesions. 2. Unremarkable cerebral CT angiogram with no hemodynamic significant stenosis, thrombosis or aneurysm. Chest X-Ray 12/13/24 12:26 IMPRESSION: 1. Persistent bibasilar atelectasis and/or airspace disease. 2. No significant change from one week prior. Abdomen/Pelvis CT 12/13/24 12:45 IMPRESSION: 1. Status post right hemicolectomy with anastomotic leak at the right lower quadrant ileocolic anastomosis. 2. Moderate bibasilar atelectasis, right greater than left with mucous bony of right middle and lower lobar bronchi. Chest CTA 12/13/24 12:45 IMPRESSION: 1. No pulmonary embolus. Sensitivity is moderately decreased by motion artifact. 2. Small lung volumes with relative elevation of right hemidiaphragm. Moderate atelectasis in the inferior lungs 3. Ascites. Labs Labs: Laboratory Results - last 24 hr 12/13/24 12/15/24 12/15/24 15:23 03:34 14:54 WBC RBC Hgb Hct MCV MCH MCHC RDW Plt Count MPV Immature Gran % (Auto) Neut % (Auto) Lymph % (Auto) [place] % (Auto) Eos % (Auto) Baso % (Auto) Lymph # (Auto) [place] # (Auto) Eos # (Auto) Baso # (Auto) Abs Immat Gran (auto) Absolute Neuts (auto) Absolute Nucleated RBC Nucleated RBC % PT INR APTT Sodium Potassium Chloride Carbon Dioxide Anion Gap BUN Creatinine Estim Creat Clear Calc Estimated GFR Glucose POC Capillary Glucose 249 H Calcium Magnesium Transferrin Total Bilirubin AST ALT Alkaline Phosphatase Total Protein Albumin Triglycerides 340 H Crossmatch See Detail 12/15/24 12/16/24 12/16/24 18:14 00:12 04:46 WBC 17.0 H RBC 2.84 L Hgb 7.5 L Hct 24.4 L MCV 85.9 MCH 26.4 MCHC 30.7 L RDW 20.7 H Plt Count 451 H MPV 12.2 H Immature Gran % (Auto) 1.8 H Neut % (Auto) 87.7 H Lymph % (Auto) 5.4 L [place] % (Auto) 4.2 Eos % (Auto) 0.5 Baso % (Auto) 0.4 Lymph # (Auto) 0.92 [place] # (Auto) 0.7 H Eos # (Auto) 0.1 Baso # (Auto) 0.1 Abs Immat Gran (auto) 0.30 H Absolute Neuts (auto) 14.9 H Absolute Nucleated RBC 0.140 H Nucleated RBC % 0.8 H PT 13.6 INR 1.0 APTT 27.9 Sodium 144 Potassium 3.6 Chloride 112 H Carbon Dioxide 29 Anion Gap 3 L BUN 30 H Creatinine 0.66 L Estim Creat Clear Calc Not Reportable Estimated GFR > 60 Glucose 225 H POC Capillary Glucose 203 H 220 H Calcium 7.2 L Magnesium 2.9 H Transferrin 161 L Total Bilirubin 0.4 AST 79 H ALT 47 H Alkaline Phosphatase 155 H Total Protein 5.1 L Albumin 2.0 L Triglycerides Crossmatch 12/16/24 12/16/24 05:40 12:05 WBC RBC Hgb Hct MCV MCH MCHC RDW Plt Count MPV Immature Gran % (Auto) Neut % (Auto) Lymph % (Auto) [place] % (Auto) Eos % (Auto) Baso % (Auto) Lymph # (Auto) [place] # (Auto) Eos # (Auto) Baso # (Auto) Abs Immat Gran (auto) Absolute Neuts (auto) Absolute Nucleated RBC Nucleated RBC % PT INR APTT Sodium Potassium Chloride Carbon Dioxide Anion Gap BUN Creatinine Estim Creat Clear Calc Estimated GFR Glucose POC Capillary Glucose 209 H 253 H Calcium Magnesium Transferrin Total Bilirubin AST ALT Alkaline Phosphatase Total Protein Albumin Triglycerides Crossmatch
--- NOTE | 2024-12-16 15:19 | PM.IMPN ---
Progress Note: A&P Assessment and Plan (1) History of partial colectomy: Code(s): Z90.49 - Acquired absence of other specified parts of digestive tract Status: Resolved (2) Ileocolic anastomotic leak: Code(s): K91.89 - Other postprocedural complications and disorders of digestive system Status: Acute (3) Acute blood loss anemia: Code(s): D62 - Acute posthemorrhagic anemia Status: Acute (4) Acute hypoxemic respiratory failure: Code(s): J96.01 - Acute respiratory failure with hypoxia Status: Acute Plan 64 y/o F with PMH of cancer the right colon S/P right colectomy, thrombosis of the mesenteric vein, WILL, diverticulitis, rhabdomyolysis (2021), hyperlipidemia and hypertension presented here on 12/03 with difficulty urinating. Previously underwent a hand assisted laparoscopic right colectomy with extensive adhesiolysis, mobilization of hepatic flexure by Dr. May on 11/27/24. Discharge on postop day 2 as she was doing well. At home she has had worsening abdominal pain, constipation. On readmission she has had a lengthy hospital course, on 12/06 undergoing a exploratory laparotomy with ileocolic resection with [id number] ileo colic anastomosis drainage of intra-abdominal abscess with placement of wound VAC. Due to bile in JUHI drains she had a repeat abdomen pelvis CT with water-soluble oral contrast demonstrating right hemicolectomy with anastomotic leak. On 12/13/2024 she underwent re-exploration with ileocolic resection with end ileostomy and mucous fistula creation and placement of wound VAC within subcutaneous space measuring 12 cm x 3 cm. General surgery managing wounds, wound VAC, JUHI drain. Currently on TPN. Wound care per surgery and unit protocol and wound care. Malnutrition: Related to surgery, continue TPN. NG tube in place which is clamped. Remains NPO. Sepsis: Monitor leukocytosis, tachypnea, tachycardia. Overall trend of leukocytosis has peaked at 19.9 on 12/08/2024. Continue to monitor along with procalcitonin. Infectious Disease consulted, continue meropenem, vancomycin p.o. 12/04/2024 blood culture x2 negative, final. C diff colitis: Appreciate ID recommendations, currently on p.o. vancomycin Post hemorrhagic anemia: Monitor daily hemoglobin, stable. Restart Lovenox 40 mg subQ q.day for DVT prophylaxis when okay by surgery. Hypocalcemia: After correction for hypoalbuminemia, 8.1. Continue to monitor. Elevated blood glucose readings: HbA1c 6.0%. Accu-Cheks q.6 hours with hypoglycemia protocol and low-dose insulin sliding scale. Acute hypoxic respiratory failure: Patient weaned to room air on 12/15/2024. Due to atelectasis, CTA chest did not demonstrate pneumonia/PE. Continue incentive spirometer and EzPAP q.i.d.. Mobilize as soon as possible. Acute kidney injury and urinary retention: Could be due to hypovolemia, anemia, urinary retention, sepsis, contrast exposure. DARRYL has resolved. Nephrology signed off. Limon catheter remains due to surgery and immobility. Hypertension: [employer] antihypertensives on hold. Monitor blood pressure. DVT prophylaxis: SCDs. Lovenox 40 mg daily currently on hold due to anemia Nutrition: NPO. TPN. Prophylaxis: Protonix 40 mg IV q.a.m. for ulcer prophylaxis. Limon catheter, NG tube in place. Right upper extremity PICC line Deconditioning, PT/OT as appropriate per General surgery team. EzPAP, incentive spirometer. Patient wishes to be full code. Prior to admission she lives at home and was independent. Subjective Date/time seen: 12/16/24 15:19 Interval history: No overnight events reported. NG has been clamped. Patient with low mood. Review of Systems Review of Systems: All systems reviewed & are unremarkable except as noted in HPI and below (Subjective) Exam Narrative: GENERAL: Alert and oriented x3, not in acute distress HEAD: Normal with no signs of head trauma. EYES: EOMI, conjunctiva normal ENT: Hearing grossly intact LUNGS: Nonlabored breathing. No adventitious sounds HEART: [Regular rate and rhythm] ABD: [Soft], mildly distended, mild tenderness, surgical incision with wound VAC, clean dry and intact EXT: Normal range of motion SKIN: [No rashes or lesions.] NEURO: [Alert and oriented x 3. No gross focal sensory or strength deficits.] PSYCH: Normal affect Objective Data Vital Signs Vital Signs: Vital Signs - 24 hr 12/15/24 16:00 12/15/24 16:00 12/15/24 16:00 Temperature 98.5 F Pulse Rate 112 H 112 H Respiratory Rate 25 H Blood Pressure 100/68 Pulse Oximetry 93 95 Oxygen Delivery Room Air Oxygen Flow Rate 12/15/24 18:00 12/15/24 20:00 12/15/24 20:00 Temperature 98.4 F Pulse Rate 106 H 104 H Respiratory Rate 18 Blood Pressure 109/63 Pulse Oximetry 97 98 Oxygen Delivery Nasal Cannula Oxygen Flow Rate 2 12/15/24 20:00 12/15/24 20:24 12/15/24 22:00 Temperature Pulse Rate 106 H 108 H Respiratory Rate 20 Blood Pressure Pulse Oximetry 97 96 Oxygen Delivery Nasal Cannula Nasal Cannula Oxygen Flow Rate 1 1 12/15/24 22:00 12/16/24 00:00 12/16/24 00:00 Temperature 97.8 F Pulse Rate 106 H 106 H Respiratory Rate 20 Blood Pressure 105/61 Pulse Oximetry 96 97 Oxygen Delivery Nasal Cannula Oxygen Flow Rate 1 12/16/24 00:00 12/16/24 02:00 12/16/24 04:00 Temperature Pulse Rate 107 H 106 H Respiratory Rate Blood Pressure Pulse Oximetry 95 Oxygen Delivery Nasal Cannula Oxygen Flow Rate 1 12/16/24 04:00 12/16/24 05:14 12/16/24 06:00 Temperature 99.7 F H Pulse Rate 105 H 105 H 110 H Respiratory Rate 22 H Blood Pressure 118/60 Pulse Oximetry 95 Oxygen Delivery Oxygen Flow Rate 12/16/24 08:00 12/16/24 08:00 12/16/24 08:44 Temperature 98.1 F Pulse Rate 111 H 109 H Respiratory Rate 24 H Blood Pressure 120/70 Pulse Oximetry 96 95 Oxygen Delivery Nasal Cannula Oxygen Flow Rate 1 12/16/24 09:00 12/16/24 10:00 12/16/24 12:00 Temperature Pulse Rate 112 H 116 H Respiratory Rate Blood Pressure Pulse Oximetry 93 Oxygen Delivery Nasal Cannula Oxygen Flow Rate 1 12/16/24 12:00 12/16/24 12:00 12/16/24 14:00 Temperature 98.9 F Pulse Rate 119 H 116 H Respiratory Rate 28 H Blood Pressure 113/65 Pulse Oximetry 92 100 Oxygen Delivery Nasal Cannula Oxygen Flow Rate 1 Intake/Output Intake/Output: Intake & Output 12/13/24 12/14/24 12/15/24 12/16/24 23:59 23:59 23:59 23:59 Intake Total 2027.5 1602.5 1621.7 1332.5 Output Total 2705 2030 1505 820 Balance -677.5 -427.5 116.7 512.5 Meds/Results Medications: Active Medications Generic Name Dose Route Start Last Admin Trade Name Freq PRN Reason Stop Dose Admin Acetaminophen 650 mg 12/10/24 04:32 12/11/24 20:18 Acetaminophen 650 Mg Suppository RECTAL 650 mg Q4H PRN Administration Mild Pain (1-3) or Fever Dextrose 12.5 gm 12/14/24 10:29 Dextrose 50% 25 Gm/50 Ml Syringe IV PUSH PRN PRN Hypoglycemia Protocol Enoxaparin Sodium 40 mg 12/07/24 09:00 12/13/24 08:46 Enoxaparin 40 Mg/0.4 Ml Syringe SUB-Q 40 mg On Hold: 12/13/24 10:04 DAILY CEE Administration Resume: 12/17/24 08:00 Glucose 15 gm 12/14/24 10:29 Glucose Oral Gel 15 Gm Of Glucse In 37.5 Gm Tube PO PRN PRN Hypoglycemia Protocol Hydromorphone HCl 1 mg 12/06/24 17:15 12/15/24 09:47 Hydromorphone Hcl Inj (*Crx) 1 Mg/Ml Syr IV PUSH 1 mg Q2H PRN Administration Breakthrough Pain Rated 7-10 or NPO Hydromorphone HCl 0.5 mg 12/06/24 17:15 12/15/24 21:44 Hydromorphone Hcl Inj (*Crx) 1 Mg/Ml Syr IV PUSH 0.5 mg Q2H PRN Administration Breakthrough Pain Rated 4-6 or NPO Dextrose 1,000 mls @ 50 mls/hr 12/06/24 17:15 Dextrose 10% IV CONT .Q20H PRN if PN is interrupted Fat Emulsion Intravenous 250 mls @ 20.833 mls/hr 12/06/24 18:00 12/16/24 06:30 Lipids 20% IVPB Infused Q24H CEE Infusion Multivitamins 1.25 ml/ 1,002.5 mls @ 50 mls/hr 12/08/24 10:00 12/16/24 09:00 Multivitamins 1.25 ml/ Amino IV CONT 50 mls/hr Acids/Electrolytes/Dextrose .Q20H3M CEE Administration Protocol Dextrose 1,000 mls @ 100 mls/hr 12/14/24 10:29 Dextrose 5% 1,000 Ml IVPB PRN PRN Hypoglycemia Protocol Fluconazole 400 mg in 200 mls @ 100 mls/hr 12/16/24 13:25 12/16/24 14:20 Diflucan 400 Mg/Nacl 200 Ml IVPB 12/16/24 15:24 100 mls/hr ONCE ONE Administration Vancomycin HCl 1,750 mg in 500 mls @ 250 mls/hr 12/16/24 15:00 Vancomycin 1,750 Mg/Ns 500 Ml IVPB 12/16/24 16:59 ONCE ONE Vancomycin HCl 1,250 mg in 250 mls @ 166.667 mls/hr 12/17/24 09:00 Vancomycin 1,250 Mg/Ns 250 Ml IVPB Q18H CEE Piperacillin Sod/Tazobactam 50 mls @ 100 mls/hr 12/16/24 18:00 Sod 3.375 gm/ Sodium Chloride IVPB Q6HR CEE Insulin Aspart 3 - 6 units 12/15/24 06:00 12/16/24 12:30 Insulin Aspart (*Bkc) 100 Units/Ml SUB-Q 4 units Q6HR CEE Administration Protocol Naloxone HCl 0.1 mg 12/06/24 17:15 Naloxone Hcl 0.4 Mg/Ml Vial IV PUSH Q2M PRN Opiate Reversal Ondansetron HCl 4 mg 12/03/24 17:26 12/09/24 05:23 Ondansetron Inj 4 Mg/2 Ml Vial IV PUSH 4 mg Q4H PRN Administration Nausea And Vomiting Pantoprazole Sodium 40 mg 12/07/24 09:00 12/16/24 08:40 Pantoprazole Sodium Iv 40 Mg Vial IV PUSH 40 mg QAM CEE Administration Phenol 1 spray 12/07/24 10:05 Phenol/Sod Pheno [place] (*Bkc) MUCOUS MEM Q2H PRN Sore Throat Sodium Chloride 10 ml 12/07/24 14:00 12/16/24 14:20 Central Line Flush IV PUSH 10 ml Q8HR CEE Administration Sodium Chloride 10 ml 12/07/24 09:45 12/11/24 00:42 Central Line Flush IV PUSH 10 ml PRN PRN Administration with TPN bag changes Sodium Chloride 20 ml 12/07/24 09:45 12/11/24 05:39 Central Line Flush IV PUSH 20 ml PRN PRN Administration after blood draws Vancomycin HCl 125 mg 12/14/24 00:00 12/16/24 11:29 Vancomycin Oral 125 Mg/2.5 Ml Syrup PO 125 mg Q6HR CEE Administration Radiology Results: ITS Impressions Renal Ultrasound 12/04/24 21:30 Impression: 1: Unremarkable renal ultrasound. No stones, masses or hydronephrosis. Pulmonary Perfusion Imaging 12/05/24 18:55 IMPRESSION: 1: Normal perfusion scan. Probable shallow lung volumes. Recommend correlation with chest x-ray.. Chest/Abdomen/Pelvis CT 12/10/24 10:51 IMPRESSION: 1. Small amount of likely residual free intraperineal gas and fluid post likely revision of an ileocolic anastomosis and placement of a surgical drain. No evident organized abscess or extraluminal contrast to suggest residual anastomotic leak. 2. Wall thickening along the sigmoid colon consistent with colitis infectious or inflammatory in etiology. Differential would also include residual reactive edema related to the prior anastomotic leak and recent surgery. 3. Volume loss in both lungs with atelectasis at the bilateral lung bases including complete collapse of the right middle lobe. Superimposed pneumonia not excludable but suspicion is low. 4. Chronic mild dilation the common bile duct without evident obstructing stone or mass, likely related to prior cholecystectomy but would correlate with liver function tests. CT Brain Angiography 12/13/24 11:34 IMPRESSION: 1. Normal aging brain. No acute intracranial process or abnormally enhancing brain lesions. 2. Unremarkable cerebral CT angiogram with no hemodynamic significant stenosis, thrombosis or aneurysm. Chest X-Ray 12/13/24 12:26 IMPRESSION: 1. Persistent bibasilar atelectasis and/or airspace disease. 2. No significant change from one week prior. Abdomen/Pelvis CT 12/13/24 12:45 IMPRESSION: 1. Status post right hemicolectomy with anastomotic leak at the right lower quadrant ileocolic anastomosis. 2. Moderate bibasilar atelectasis, right greater than left with mucous bony of right middle and lower lobar bronchi. Chest CTA 12/13/24 12:45 IMPRESSION: 1. No pulmonary embolus. Sensitivity is moderately decreased by motion artifact. 2. Small lung volumes with relative elevation of right hemidiaphragm. Moderate atelectasis in the inferior lungs 3. Ascites. Labs Labs: Laboratory Results - last 24 hr 12/13/24 12/15/24 12/15/24 15:23 03:34 18:14 WBC RBC Hgb Hct MCV MCH MCHC RDW Plt Count MPV Immature Gran % (Auto) Neut % (Auto) Lymph % (Auto) [place] % (Auto) Eos % (Auto) Baso % (Auto) Lymph # (Auto) [place] # (Auto) Eos # (Auto) Baso # (Auto) Abs Immat Gran (auto) Absolute Neuts (auto) Absolute Nucleated RBC Nucleated RBC % PT INR APTT Sodium Potassium Chloride Carbon Dioxide Anion Gap BUN Creatinine Estim Creat Clear Calc Estimated GFR Glucose POC Capillary Glucose 203 H Calcium Magnesium Transferrin Total Bilirubin AST ALT Alkaline Phosphatase Total Protein Albumin Triglycerides 340 H Crossmatch See Detail 12/16/24 12/16/24 12/16/24 00:12 04:46 05:40 WBC 17.0 H RBC 2.84 L Hgb 7.5 L Hct 24.4 L MCV 85.9 MCH 26.4 MCHC 30.7 L RDW 20.7 H Plt Count 451 H MPV 12.2 H Immature Gran % (Auto) 1.8 H Neut % (Auto) 87.7 H Lymph % (Auto) 5.4 L [place] % (Auto) 4.2 Eos % (Auto) 0.5 Baso % (Auto) 0.4 Lymph # (Auto) 0.92 [place] # (Auto) 0.7 H Eos # (Auto) 0.1 Baso # (Auto) 0.1 Abs Immat Gran (auto) 0.30 H Absolute Neuts (auto) 14.9 H Absolute Nucleated RBC 0.140 H Nucleated RBC % 0.8 H PT 13.6 INR 1.0 APTT 27.9 Sodium 144 Potassium 3.6 Chloride 112 H Carbon Dioxide 29 Anion Gap 3 L BUN 30 H Creatinine 0.66 L Estim Creat Clear Calc Not Reportable Estimated GFR > 60 Glucose 225 H POC Capillary Glucose 220 H 209 H Calcium 7.2 L Magnesium 2.9 H Transferrin 161 L Total Bilirubin 0.4 AST 79 H ALT 47 H Alkaline Phosphatase 155 H Total Protein 5.1 L Albumin 2.0 L Triglycerides Crossmatch 12/16/24 12:05 WBC RBC Hgb Hct MCV MCH MCHC RDW Plt Count MPV Immature Gran % (Auto) Neut % (Auto) Lymph % (Auto) [place] % (Auto) Eos % (Auto) Baso % (Auto) Lymph # (Auto) [place] # (Auto) Eos # (Auto) Baso # (Auto) Abs Immat Gran (auto) Absolute Neuts (auto) Absolute Nucleated RBC Nucleated RBC % PT INR APTT Sodium Potassium Chloride Carbon Dioxide Anion Gap BUN Creatinine Estim Creat Clear Calc Estimated GFR Glucose POC Capillary Glucose 253 H Calcium Magnesium Transferrin Total Bilirubin AST ALT Alkaline Phosphatase Total Protein Albumin Triglycerides Crossmatch
[2024-12-16] MEDS: VANCOMYCIN 1,750 MG/NS 500 ML 1,750 MG/500 ML BAG 250 MG IVPB (15:45)
[2024-12-16] MEDS: FAT EMULSIONS IV 20% 250 ML 20.8 ML IVPB (17:14)
[2024-12-16] MEDS: PIPERACILLIN/TAZOBACTAM SOD 3.375 GM in SODIUM CHLORIDE 0.9% IV 50 ML 100 ML IVPB ×2 (18:08→23:35)
[2024-12-16] MEDS: HYDROmorphone HCL INJ (*CRX) 1 MG/ML SYR 0.5 MG IV PUSH (23:39)
[2024-12-17] VITALS (17 sets, daily range): BP systolic 105–141; BP diastolic 61–69; PULSE 102–112; RESP 18–28; TEMP 36.7–37.2; O2SAT 91–97; BMI 10.0
[2024-12-17] MEDS: AMINO ACIDS 5%/D15W/E-LYTES/CA 1,000 ML with MULTIVITAMINS-12 INJ VIAL 1 1.25 ML, MULTI... 50 ML IV CONT (04:58)
[2024-12-17 05:13] LABS: Hematocrit 21.4 % (37.0-47.0); Hemoglobin 7.2 g/dL (12.0-15.0); Mean Corpuscular HGB Conc 33.6 g/dl (32-36); Mean Corpuscular Hemoglobin 29.8 pg (26-34); Mean Corpuscular Volume 88.4 fl (80-100); Platelet Count Result 453 k/mm3 (150-375); Red Blood Count 2.42 M/mm3 (4.2-5.4); White Blood Count 12.1 K/mm3 (4.5-10.0)
[2024-12-17] MEDS: CENTRAL LINE FLUSH 10 ML IV PUSH ×3 (05:50→22:37)
[2024-12-17] MEDS: PIPERACILLIN/TAZOBACTAM SOD 3.375 GM in SODIUM CHLORIDE 0.9% IV 50 ML 100 ML IVPB ×3 (05:50→17:42)
[2024-12-17] MEDS: VANCOMYCIN ORAL 125 MG/2.5 ML SYRUP PO ×3 (05:50→17:41)
[2024-12-17] MEDS: HYDROmorphone HCL INJ (*CRX) 1 MG/ML SYR IV PUSH ×2 (05:51→20:44)
[2024-12-17] MEDS: INSULIN ASPART (*BKC) 100 UNITS/ML SUB-Q ×3 (06:02→18:27)
[2024-12-17] MEDS: VANCOMYCIN 1,250 MG/NS 250 ML 1,250 MG/250 ML BAG 166.67 MG IVPB (09:03)
[2024-12-17] MEDS: PANTOPRAZOLE SODIUM IV 40 MG VIAL IV PUSH (09:04)
[2024-12-17 09:34] LABS: Alanine Aminotransferase 44 U/L (6-35); Albumin Level 2.1 g/dL (3.5-5.1); Alkaline Phosphatase 153 U/L (38-126); Anion Gap 1 mmol/L (4-12); Aspartate Amino Transferase 76 U/L (14-36); Bilirubin,Total 0.3 mg/dL (0.2-1.3); Blood Urea Nitrogen 26 mg/dL (7-17); Calcium 7.3 mg/dL (8.4-10.2); Carbon Dioxide 27 mmol/L (22-30); Chloride 114 mmol/L (98-107); Estimated Glomerular Filt Rate > 60; Glucose 236 mg/dL (65-110); Magnesium 2.7 mg/dL (1.6-2.3); Potassium 3.2 mmol/L (3.4-5.0); Sodium 142 mmol/L (137-145); Total Protein 5.3 g/dL (6.3-8.2)
--- NOTE | 2024-12-17 10:18 | PM.IMPN ---
Progress Note: A&P Assessment and Plan (1) History of partial colectomy: Code(s): Z90.49 - Acquired absence of other specified parts of digestive tract Status: Resolved (2) Ileocolic anastomotic leak: Code(s): K91.89 - Other postprocedural complications and disorders of digestive system Status: Acute (3) Acute blood loss anemia: Code(s): D62 - Acute posthemorrhagic anemia Status: Acute (4) Acute hypoxemic respiratory failure: Code(s): J96.01 - Acute respiratory failure with hypoxia Status: Acute Plan 64 y/o F with PMH of cancer the right colon S/P right colectomy, thrombosis of the mesenteric vein, WILL, diverticulitis, rhabdomyolysis (2021), hyperlipidemia and hypertension presented here on 12/03 with difficulty urinating. Previously underwent a hand assisted laparoscopic right colectomy with extensive adhesiolysis, mobilization of hepatic flexure by Dr. May on 11/27/24. Discharge on postop day 2 as she was doing well. At home she has had worsening abdominal pain, constipation. On readmission she has had a lengthy hospital course, on 12/06 undergoing a exploratory laparotomy with ileocolic resection with [id number] ileo colic anastomosis drainage of intra-abdominal abscess with placement of wound VAC. Due to bile in JUHI drains she had a repeat abdomen pelvis CT with water-soluble oral contrast demonstrating right hemicolectomy with anastomotic leak. On 12/13/2024 she underwent re-exploration with ileocolic resection with end ileostomy and mucous fistula creation and placement of wound VAC within subcutaneous space measuring 12 cm x 3 cm. General surgery managing wounds, wound VAC, JUHI drain. Currently on TPN. Wound care per surgery and unit protocol and wound care. Malnutrition: Related to surgery, continue TPN. NG tube in place which is clamped. Started on clear liquid per General surgery. Sepsis: Monitor leukocytosis, tachypnea, tachycardia. Overall trend of leukocytosis has peaked at 19.9 on 12/08/2024. Continue to monitor along with procalcitonin. Infectious Disease consulted, continue meropenem, vancomycin p.o. 12/04/2024 blood culture x2 negative, final. C diff colitis: Appreciate ID recommendations, currently on p.o. vancomycin Post hemorrhagic anemia: Monitor daily hemoglobin, stable. Restart Lovenox 40 mg subQ q.day for DVT prophylaxis when okay by surgery. Hypocalcemia: After correction for hypoalbuminemia, 8.1. Continue to monitor. Elevated blood glucose readings: HbA1c 6.0%. Accu-Cheks q.6 hours with hypoglycemia protocol and low-dose insulin sliding scale. Acute hypoxic respiratory failure: Patient weaned to room air on 12/15/2024. Due to atelectasis, CTA chest did not demonstrate pneumonia/PE. Continue incentive spirometer and EzPAP q.i.d.. Mobilize as soon as possible. Acute kidney injury and urinary retention: Could be due to hypovolemia, anemia, urinary retention, sepsis, contrast exposure. DARRYL has resolved. Nephrology signed off. Limon catheter remains due to surgery and immobility. 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 Monitor blood pressure. DVT prophylaxis: SCDs. Lovenox 40 mg daily currently on hold due to anemia Nutrition: NPO. TPN. Prophylaxis: Protonix 40 mg IV q.a.m. for ulcer prophylaxis. Limon catheter, NG tube in place. Right upper extremity PICC line Deconditioning, PT/OT as appropriate per General surgery team. EzPAP, incentive spirometer. Patient wishes to be full code. Prior to admission she lives at home and was independent. Subjective Date/time seen: 12/17/24 10:18 Interval history: Patient tried some clears. Denies any new complaints. Denies any abdominal pain. Labs reviewed. Review of Systems Review of Systems: All systems reviewed & are unremarkable except as noted in HPI and below (Subjective) Exam Narrative: GENERAL: Alert and oriented x3, not in acute distress HEAD: Normal with no signs of head trauma. EYES: EOMI, conjunctiva normal ENT: Hearing grossly intact LUNGS: Nonlabored breathing. No adventitious sounds HEART: [Regular rate and rhythm] ABD: [Soft], mildly distended, mild tenderness, surgical incision with wound VAC, clean dry and intact EXT: Normal range of motion SKIN: [No rashes or lesions.] NEURO: [Alert and oriented x 3. No gross focal sensory or strength deficits.] PSYCH: Normal affect Objective Data Vital Signs Vital Signs: Vital Signs - 24 hr 12/16/24 12:00 12/16/24 12:00 12/16/24 12:00 Temperature 98.9 F Pulse Rate 116 H 119 H Respiratory Rate 28 H Blood Pressure 113/65 Pulse Oximetry 92 100 Oxygen Delivery Nasal Cannula Oxygen Flow Rate 1 Fraction of Inspired Oxygen 12/16/24 14:00 12/16/24 16:00 12/16/24 16:00 Temperature Pulse Rate 116 H 106 H Respiratory Rate Blood Pressure Pulse Oximetry 93 Oxygen Delivery Nasal Cannula Oxygen Flow Rate 1 Fraction of Inspired Oxygen 12/16/24 16:00 12/16/24 18:00 12/16/24 20:00 Temperature 98.4 F 98.7 F Pulse Rate 114 H 105 H 107 H Respiratory Rate 24 H 18 Blood Pressure 129/69 122/66 Pulse Oximetry 98 94 Oxygen Delivery Oxygen Flow Rate Fraction of Inspired Oxygen 12/16/24 20:00 12/16/24 20:00 12/16/24 22:00 Temperature Pulse Rate 108 H 106 H Respiratory Rate Blood Pressure Pulse Oximetry 94 Oxygen Delivery Nasal Cannula Oxygen Flow Rate 1 Fraction of Inspired Oxygen 12/16/24 23:00 12/17/24 00:00 12/17/24 00:00 Temperature 98.8 F Pulse Rate 105 H 105 H Respiratory Rate 18 Blood Pressure 122/65 Pulse Oximetry 94 91 Oxygen Delivery Nasal Cannula Oxygen Flow Rate 1 Fraction of Inspired Oxygen 12/17/24 01:48 12/17/24 04:00 12/17/24 04:00 Temperature 99.0 F Pulse Rate 103 H 107 H Respiratory Rate 18 Blood Pressure 120/61 Pulse Oximetry 93 92 Oxygen Delivery Nasal Cannula Oxygen Flow Rate 1 Fraction of Inspired Oxygen 12/17/24 04:00 12/17/24 06:00 12/17/24 08:00 Temperature Pulse Rate 107 H 102 H Respiratory Rate Blood Pressure Pulse Oximetry 93 Oxygen Delivery Nasal Cannula Oxygen Flow Rate 1 Fraction of Inspired Oxygen 28 12/17/24 08:00 12/17/24 08:00 12/17/24 08:18 Temperature 98.3 F Pulse Rate 106 H 106 H Respiratory Rate 20 Blood Pressure 122/64 Pulse Oximetry 94 94 Oxygen Delivery Room Air Oxygen Flow Rate Fraction of Inspired Oxygen 12/17/24 09:59 Temperature Pulse Rate 106 H Respiratory Rate Blood Pressure Pulse Oximetry Oxygen Delivery Oxygen Flow Rate Fraction of Inspired Oxygen Intake/Output Intake/Output: Intake & Output 12/14/24 12/15/24 12/16/24 12/17/24 23:59 23:59 23:59 23:59 Intake Total 1602.5 1621.7 1502.5 1048.3 Output Total 2029 1505 1070 672 Balance -427.5 116.7 432.5 376.3 Meds/Results Medications: Active Medications Generic Name Dose Route Start Last Admin Trade Name Freq PRN Reason Stop Dose Admin Acetaminophen 650 mg 12/10/24 04:32 12/11/24 20:18 Acetaminophen 650 Mg Suppository RECTAL 650 mg Q4H PRN Administration Mild Pain (1-3) or Fever Dextrose 12.5 gm 12/14/24 10:29 Dextrose 50% 25 Gm/50 Ml Syringe IV PUSH PRN PRN Hypoglycemia Protocol Enoxaparin Sodium 40 mg 12/07/24 09:00 12/17/24 07:28 Enoxaparin 40 Mg/0.4 Ml Syringe SUB-Q Not Given DAILY CEE Glucose 15 gm 12/14/24 10:29 Glucose Oral Gel 15 Gm Of Glucse In 37.5 Gm Tube PO PRN PRN Hypoglycemia Protocol Hydromorphone HCl 1 mg 12/06/24 17:15 12/17/24 05:51 Hydromorphone Hcl Inj (*Crx) 1 Mg/Ml Syr IV PUSH 1 mg Q2H PRN Administration Breakthrough Pain Rated 7-10 or NPO Hydromorphone HCl 0.5 mg 12/06/24 17:15 12/16/24 23:39 Hydromorphone Hcl Inj (*Crx) 1 Mg/Ml Syr IV PUSH 0.5 mg Q2H PRN Administration Breakthrough Pain Rated 4-6 or NPO Dextrose 1,000 mls @ 50 mls/hr 12/06/24 17:15 Dextrose 10% IV CONT .Q20H PRN if PN is interrupted Fat Emulsion Intravenous 250 mls @ 20.833 mls/hr 12/06/24 18:00 12/16/24 17:14 Lipids 20% IVPB 20.8 mls/hr Q24H CEE Administration Multivitamins 1.25 ml/ 1,002.5 mls @ 50 mls/hr 12/08/24 10:00 12/17/24 04:58 Multivitamins 1.25 ml/ Amino IV CONT 50 mls/hr Acids/Electrolytes/Dextrose .Q20H3M CEE Administration Protocol Dextrose 1,000 mls @ 100 mls/hr 12/14/24 10:29 Dextrose 5% 1,000 Ml IVPB PRN PRN Hypoglycemia Protocol Vancomycin HCl 1,250 mg in 250 mls @ 166.667 mls/hr 12/17/24 09:00 12/17/24 09:03 Vancomycin 1,250 Mg/Ns 250 Ml IVPB 166.67 mls/hr Q18H CEE Administration Piperacillin Sod/Tazobactam 50 mls @ 100 mls/hr 12/16/24 18:00 12/17/24 05:50 Sod 3.375 gm/ Sodium Chloride IVPB 100 mls/hr Q6HR CEE Administration Potassium Chloride 40 meq/ 520 mls @ 130 mls/hr 12/17/24 10:12 Sodium Chloride IVPB 12/17/24 14:11 ONCE ONE Insulin Aspart 3 - 6 units 12/15/24 06:00 12/17/24 06:02 Insulin Aspart (*Bkc) 100 Units/Ml SUB-Q 3 units Q6HR CEE Administration Protocol Naloxone HCl 0.1 mg 12/06/24 17:15 Naloxone Hcl 0.4 Mg/Ml Vial IV PUSH Q2M PRN Opiate Reversal Ondansetron HCl 4 mg 12/03/24 17:26 12/09/24 05:23 Ondansetron Inj 4 Mg/2 Ml Vial IV PUSH 4 mg Q4H PRN Administration Nausea And Vomiting Pantoprazole Sodium 40 mg 12/07/24 09:00 12/17/24 09:04 Pantoprazole Sodium Iv 40 Mg Vial IV PUSH 40 mg QAM CEE Administration Phenol 1 spray 12/07/24 10:05 Phenol/Sod Pheno [place] (*Bkc) MUCOUS MEM Q2H PRN Sore Throat Sodium Chloride 10 ml 12/07/24 14:00 12/17/24 05:50 Central Line Flush IV PUSH 10 ml Q8HR CEE Administration Sodium Chloride 10 ml 12/07/24 09:45 12/11/24 00:42 Central Line Flush IV PUSH 10 ml PRN PRN Administration with TPN bag changes Sodium Chloride 20 ml 12/07/24 09:45 12/11/24 05:39 Central Line Flush IV PUSH 20 ml PRN PRN Administration after blood draws Vancomycin HCl 125 mg 12/14/24 00:00 12/17/24 05:50 Vancomycin Oral 125 Mg/2.5 Ml Syrup PO 125 mg Q6HR CEE Administration Radiology Results: ITS Impressions Renal Ultrasound 12/04/24 21:30 Impression: 1: Unremarkable renal ultrasound. No stones, masses or hydronephrosis. Pulmonary Perfusion Imaging 12/05/24 18:55 IMPRESSION: 1: Normal perfusion scan. Probable shallow lung volumes. Recommend correlation with chest x-ray.. Chest/Abdomen/Pelvis CT 12/10/24 10:51 IMPRESSION: 1. Small amount of likely residual free intraperineal gas and fluid post likely revision of an ileocolic anastomosis and placement of a surgical drain. No evident organized abscess or extraluminal contrast to suggest residual anastomotic leak. 2. Wall thickening along the sigmoid colon consistent with colitis infectious or inflammatory in etiology. Differential would also include residual reactive edema related to the prior anastomotic leak and recent surgery. 3. Volume loss in both lungs with atelectasis at the bilateral lung bases including complete collapse of the right middle lobe. Superimposed pneumonia not excludable but suspicion is low. 4. Chronic mild dilation the common bile duct without evident obstructing stone or mass, likely related to prior cholecystectomy but would correlate with liver function tests. CT Brain Angiography 12/13/24 11:34 IMPRESSION: 1. Normal aging brain. No acute intracranial process or abnormally enhancing brain lesions. 2. Unremarkable cerebral CT angiogram with no hemodynamic significant stenosis, thrombosis or aneurysm. Chest X-Ray 12/13/24 12:26 IMPRESSION: 1. Persistent bibasilar atelectasis and/or airspace disease. 2. No significant change from one week prior. Abdomen/Pelvis CT 12/13/24 12:45 IMPRESSION: 1. Status post right hemicolectomy with anastomotic leak at the right lower quadrant ileocolic anastomosis. 2. Moderate bibasilar atelectasis, right greater than left with mucous bony of right middle and lower lobar bronchi. Chest CTA 12/13/24 12:45 IMPRESSION: 1. No pulmonary embolus. Sensitivity is moderately decreased by motion artifact. 2. Small lung volumes with relative elevation of right hemidiaphragm. Moderate atelectasis in the inferior lungs 3. Ascites. Labs Labs: Laboratory Results - last 24 hr 12/16/24 12/16/24 12/16/24 12:05 17:12 23:52 WBC RBC Hgb Hct MCV MCH MCHC RDW Plt Count MPV Sodium Potassium Chloride Carbon Dioxide Anion Gap BUN Creatinine Estim Creat Clear Calc Estimated GFR Glucose POC Capillary Glucose 253 H 203 H 270 H Calcium Magnesium Total Bilirubin AST ALT Alkaline Phosphatase Total Protein Albumin 12/17/24 12/17/24 12/17/24 04:56 06:01 08:56 WBC 12.1 H RBC 2.42 L Hgb 7.2 L Hct 21.4 L MCV 88.4 MCH 29.8 D MCHC 33.6 RDW 21.2 H Plt Count 453 H MPV 12.1 H Sodium 142 Potassium 3.2 L Chloride 114 H Carbon Dioxide 27 Anion Gap 1 L BUN 26 H Creatinine 0.74 0.71 Estim Creat Clear Calc Not Reportable Not Reportable Estimated GFR > 60 > 60 Glucose 236 H POC Capillary Glucose 222 H Calcium 7.3 L Magnesium 2.7 H Total Bilirubin 0.3 AST 76 H ALT 44 H Alkaline Phosphatase 153 H Total Protein 5.3 L Albumin 2.1 L
[2024-12-17] MEDS: POTASSIUM CHLORIDE INJ 40 MEQ in SODIUM CHLORIDE 0.9% IV 500 ML 130 MEQ IVPB (10:33)
--- NOTE | 2024-12-17 11:45 | P.PNINF_ITS ---
Progress Note: A&P Assessment and Plan (1) Intra-abdominal abscess post-procedure: Code(s): T81.43XA - Infection following a procedure, organ and space surgical site, initial encounter; K65.1 - Peritoneal abscess Status: Acute Assessment and Plan: As below Plan Assessment and plan (1) Intra-abdominal abscess post-procedure: Code(s): T81.43XA - Infection following a procedure, organ and space surgical site, initial encounter; K65.1 - Peritoneal abscess Status: Acute Assessment and Plan: -Abscess secondary to ileocolic anastomotic leak -Manaagement as per surgical service (2) Ileocolic anastomotic leak: Code(s): K91.89 - Other postprocedural complications and disorders of digestive system Status: Acute Assessment and Plan: -Management as per surgical service (3) History of partial colectomy: Code(s): Z90.49 - Acquired absence of other specified parts of digestive tract Status: Resolved (4) Adenocarcinoma of colon: Code(s): C18.9 - Malignant neoplasm of colon, unspecified Status: Acute Assessment and Plan: -Management as per primary service (5) Cancer of right colon: Onset Date: ~10/2024 Code(s): C18.2 - Malignant neoplasm of ascending colon Status: Acute Assessment and Plan: -Management as per primary service (6) C. difficile diarrhea: Onset Date: ~04/01/24 Code(s): A04.72 - Enterocolitis due to Clostridium difficile, not specified as recurrent Status: Inactive Assessment and Plan: -Patient has history of C.difficile infection starting in March 2024 -Has new diarrhea as of 12/12/24 Plan: -Have changed meropenem to zosyn. Mental status improved. -Have added fluconazole and IV vancomycin empirically. -Send JUHI drain fluid for aerobic and anaerobic culture. -Continue enteral Vancomycin day 3 for treatment of recurrent C.difficile infection -Management of ileocolonic anastomotic leak as per surgical service -Continue supportive measures -Discussed with Surgical Service today. Patient was seen via video telehealth consultation with the assistance of staff. Chart, data, and patient independently reviewed. Patient was located at [facility] while I was located in my [place] office. Received verbal consent from patient. Subjective Date/time seen: 12/17/24 11:45 Interval history: 12/17/2024: Afebrile with borderline tachycardia. Tolerating room air. White blood cell count decreased to 12.1. Static minimal transaminitis. Mental status significantly improved after discontinuing Meropenem and changing to Zosyn. Review of Systems Review of Systems: All systems reviewed & are unremarkable except as noted in HPI and below Exam Narrative: Gen: no longer combative. Mental status much improved. Pulm: No evidence of dyspnea. Abd: distended, soft, wound vac in place; Left abdominal JUHI drain with bloody fluid. : urinary catheter in place Ext: peripheral edema Lines: RUE PICC intact Objective Data Vital Signs Vital Signs: Vital Signs - 24 hr 12/16/24 12:00 12/16/24 12:00 12/16/24 12:00 Temperature 98.9 F Pulse Rate 116 H 119 H Respiratory Rate 28 H Blood Pressure 113/65 Pulse Oximetry 92 100 Oxygen Delivery Nasal Cannula Oxygen Flow Rate 1 Fraction of Inspired Oxygen 12/16/24 14:00 12/16/24 16:00 12/16/24 16:00 Temperature Pulse Rate 116 H 106 H Respiratory Rate Blood Pressure Pulse Oximetry 93 Oxygen Delivery Nasal Cannula Oxygen Flow Rate 1 Fraction of Inspired Oxygen 12/16/24 16:00 12/16/24 18:00 12/16/24 20:00 Temperature 98.4 F 98.7 F Pulse Rate 114 H 105 H 107 H Respiratory Rate 24 H 18 Blood Pressure 129/69 122/66 Pulse Oximetry 98 94 Oxygen Delivery Oxygen Flow Rate Fraction of Inspired Oxygen 12/16/24 20:00 12/16/24 20:00 12/16/24 22:00 Temperature Pulse Rate 108 H 106 H Respiratory Rate Blood Pressure Pulse Oximetry 94 Oxygen Delivery Nasal Cannula Oxygen Flow Rate 1 Fraction of Inspired Oxygen 12/16/24 23:00 12/17/24 00:00 12/17/24 00:00 Temperature 98.8 F Pulse Rate 105 H 105 H Respiratory Rate 18 Blood Pressure 122/65 Pulse Oximetry 94 91 Oxygen Delivery Nasal Cannula Oxygen Flow Rate 1 Fraction of Inspired Oxygen 12/17/24 01:48 12/17/24 04:00 12/17/24 04:00 Temperature 99.0 F Pulse Rate 103 H 107 H Respiratory Rate 18 Blood Pressure 120/61 Pulse Oximetry 93 92 Oxygen Delivery Nasal Cannula Oxygen Flow Rate 1 Fraction of Inspired Oxygen 12/17/24 04:00 12/17/24 06:00 12/17/24 08:00 Temperature Pulse Rate 107 H 102 H Respiratory Rate Blood Pressure Pulse Oximetry 93 Oxygen Delivery Nasal Cannula Oxygen Flow Rate 1 Fraction of Inspired Oxygen 28 12/17/24 08:00 12/17/24 08:00 12/17/24 08:18 Temperature 98.3 F Pulse Rate 106 H 106 H Respiratory Rate 20 Blood Pressure 122/64 Pulse Oximetry 94 94 Oxygen Delivery Room Air Oxygen Flow Rate Fraction of Inspired Oxygen 12/17/24 09:59 Temperature Pulse Rate 106 H Respiratory Rate Blood Pressure Pulse Oximetry Oxygen Delivery Oxygen Flow Rate Fraction of Inspired Oxygen Intake/Output Intake/Output: Intake & Output 12/14/24 12/15/24 12/16/24 12/17/24 23:59 23:59 23:59 23:59 Intake Total 1602.5 1621.7 1502.5 1048.3 Output Total 2030 1505 1070 672 Balance -427.5 116.7 432.5 376.3 Meds/Results Medications: Active Medications Generic Name Dose Route Start Last Admin Trade Name Freq PRN Reason Stop Dose Admin Acetaminophen 650 mg 12/10/24 04:32 12/11/24 20:18 Acetaminophen 650 Mg Suppository RECTAL 650 mg Q4H PRN Administration Mild Pain (1-3) or Fever Dextrose 12.5 gm 12/14/24 10:29 Dextrose 50% 25 Gm/50 Ml Syringe IV PUSH PRN PRN Hypoglycemia Protocol Enoxaparin Sodium 40 mg 12/07/24 09:00 12/17/24 07:28 Enoxaparin 40 Mg/0.4 Ml Syringe SUB-Q Not Given DAILY CEE Glucose 15 gm 12/14/24 10:29 Glucose Oral Gel 15 Gm Of Glucse In 37.5 Gm Tube PO PRN PRN Hypoglycemia Protocol Hydromorphone HCl 1 mg 12/06/24 17:15 12/17/24 05:51 Hydromorphone Hcl Inj (*Crx) 1 Mg/Ml Syr IV PUSH 1 mg Q2H PRN Administration Breakthrough Pain Rated 7-10 or NPO Hydromorphone HCl 0.5 mg 12/06/24 17:15 12/16/24 23:39 Hydromorphone Hcl Inj (*Crx) 1 Mg/Ml Syr IV PUSH 0.5 mg Q2H PRN Administration Breakthrough Pain Rated 4-6 or NPO Dextrose 1,000 mls @ 50 mls/hr 12/06/24 17:15 Dextrose 10% IV CONT .Q20H PRN if PN is interrupted Fat Emulsion Intravenous 250 mls @ 20.833 mls/hr 12/06/24 18:00 12/16/24 17:14 Lipids 20% IVPB 20.8 mls/hr Q24H CEE Administration Multivitamins 1.25 ml/ 1,002.5 mls @ 50 mls/hr 12/08/24 10:00 12/17/24 04:58 Multivitamins 1.25 ml/ Amino IV CONT 50 mls/hr Acids/Electrolytes/Dextrose .Q20H3M CEE Administration Protocol Dextrose 1,000 mls @ 100 mls/hr 12/14/24 10:29 Dextrose 5% 1,000 Ml IVPB PRN PRN Hypoglycemia Protocol Vancomycin HCl 1,250 mg in 250 mls @ 166.667 mls/hr 12/17/24 09:00 12/17/24 09:03 Vancomycin 1,250 Mg/Ns 250 Ml IVPB 166.67 mls/hr Q18H CEE Administration Potassium Chloride 40 meq/ 520 mls @ 130 mls/hr 12/17/24 10:12 12/17/24 10:33 Sodium Chloride IVPB 12/17/24 14:11 130 mls/hr ONCE ONE Administration Piperacillin Sod/Tazobactam 50 mls @ 100 mls/hr 12/17/24 14:30 Sod 3.375 gm/ Sodium Chloride IVPB Q6HR REPLACED BY [facility] Insulin Aspart 3 - 6 units 12/15/24 06:00 12/17/24 06:02 Insulin Aspart (*Bkc) 100 Units/Ml SUB-Q 3 units Q6HR CEE Administration Protocol Naloxone HCl 0.1 mg 12/06/24 17:15 Naloxone Hcl 0.4 Mg/Ml Vial IV PUSH Q2M PRN Opiate Reversal Ondansetron HCl 4 mg 12/03/24 17:26 12/09/24 05:23 Ondansetron Inj 4 Mg/2 Ml Vial IV PUSH 4 mg Q4H PRN Administration Nausea And Vomiting Pantoprazole Sodium 40 mg 12/07/24 09:00 12/17/24 09:04 Pantoprazole Sodium Iv 40 Mg Vial IV PUSH 40 mg QAM CEE Administration Phenol 1 spray 12/07/24 10:05 Phenol/Sod Pheno [place] (*Bkc) MUCOUS MEM Q2H PRN Sore Throat Sodium Chloride 10 ml 12/07/24 14:00 12/17/24 05:50 Central Line Flush IV PUSH 10 ml Q8HR CEE Administration Sodium Chloride 10 ml 12/07/24 09:45 12/11/24 00:42 Central Line Flush IV PUSH 10 ml PRN PRN Administration with TPN bag changes Sodium Chloride 20 ml 12/07/24 09:45 12/11/24 05:39 Central Line Flush IV PUSH 20 ml PRN PRN Administration after blood draws Vancomycin HCl 125 mg 12/14/24 00:00 12/17/24 05:50 Vancomycin Oral 125 Mg/2.5 Ml Syrup PO 125 mg Q6HR CEE Administration Radiology Results: ITS Impressions Renal Ultrasound 12/04/24 21:30 Impression: 1: Unremarkable renal ultrasound. No stones, masses or hydronephrosis. Pulmonary Perfusion Imaging 12/05/24 18:55 IMPRESSION: 1: Normal perfusion scan. Probable shallow lung volumes. Recommend correlation with chest x-ray.. Chest/Abdomen/Pelvis CT 12/10/24 10:51 IMPRESSION: 1. Small amount of likely residual free intraperineal gas and fluid post likely revision of an ileocolic anastomosis and placement of a surgical drain. No evident organized abscess or extraluminal contrast to suggest residual anastomotic leak. 2. Wall thickening along the sigmoid colon consistent with colitis infectious or inflammatory in etiology. Differential would also include residual reactive edema related to the prior anastomotic leak and recent surgery. 3. Volume loss in both lungs with atelectasis at the bilateral lung bases including complete collapse of the right middle lobe. Superimposed pneumonia not excludable but suspicion is low. 4. Chronic mild dilation the common bile duct without evident obstructing stone or mass, likely related to prior cholecystectomy but would correlate with liver function tests. CT Brain Angiography 12/13/24 11:34 IMPRESSION: 1. Normal aging brain. No acute intracranial process or abnormally enhancing brain lesions. 2. Unremarkable cerebral CT angiogram with no hemodynamic significant stenosis, thrombosis or aneurysm. Chest X-Ray 12/13/24 12:26 IMPRESSION: 1. Persistent bibasilar atelectasis and/or airspace disease. 2. No significant change from one week prior. Abdomen/Pelvis CT 12/13/24 12:45 IMPRESSION: 1. Status post right hemicolectomy with anastomotic leak at the right lower quadrant ileocolic anastomosis. 2. Moderate bibasilar atelectasis, right greater than left with mucous bony of right middle and lower lobar bronchi. Chest CTA 12/13/24 12:45 IMPRESSION: 1. No pulmonary embolus. Sensitivity is moderately decreased by motion artifact. 2. Small lung volumes with relative elevation of right hemidiaphragm. Moderate atelectasis in the inferior lungs 3. Ascites. Labs Labs: Laboratory Results - last 24 hr 12/16/24 12/16/24 12/16/24 12:05 17:12 23:52 WBC RBC Hgb Hct MCV MCH MCHC RDW Plt Count MPV Sodium Potassium Chloride Carbon Dioxide Anion Gap BUN Creatinine Estim Creat Clear Calc Estimated GFR Glucose POC Capillary Glucose 253 H 203 H 270 H Calcium Magnesium Total Bilirubin AST ALT Alkaline Phosphatase Total Protein Albumin 12/17/24 12/17/24 12/17/24 04:56 06:01 08:56 WBC 12.1 H RBC 2.42 L Hgb 7.2 L Hct 21.4 L MCV 88.4 MCH 29.8 D MCHC 33.6 RDW 21.2 H Plt Count 453 H MPV 12.1 H Sodium 142 Potassium 3.2 L Chloride 114 H Carbon Dioxide 27 Anion Gap 1 L BUN 26 H Creatinine 0.74 0.71 Estim Creat Clear Calc Not Reportable Not Reportable Estimated GFR > 60 > 60 Glucose 236 H POC Capillary Glucose 222 H Calcium 7.3 L Magnesium 2.7 H Total Bilirubin 0.3 AST 76 H ALT 44 H Alkaline Phosphatase 153 H Total Protein 5.3 L Albumin 2.1 L
--- NOTE | 2024-12-17 11:49 | PCNFU ---
Nutrition Follow-Up Complete: Inadequate energy intake related to altered GI function as evidenced by need for full TPN Goal:Meet estimated nutrition needs Pt progressing towards goal. continue with same goal. Pt current nutrition is Clear liquids, TPN Clinimix E 07/25 @ 50ml/hr to provide 1352kcals, 60g protein per day. Nutrition recommendation: continue to advance diet as tolerated Last recorded weight is 71.8 kg. Bowel Motility: +BM 12/17 Labs Reviewed:Hgb:7.2, HCT:21.4, K:3.2, BUN:26, Glu:236 Meds Noted: zofran Skin: wound vac in place to abdomen Additional Notes: Pt continues on TPN, clear liquids started last night, tolerating. Continue to encourage po intake of liquids and progress diet as appropriate. Monitoring TPN tolerance, labs, weights, GI function, diet advancement, plan of care Follow up Monday/Monday.
--- NOTE | 2024-12-17 15:19 | P.PNGS_ITS ---
Progress Note: A&P Assessment and Plan (1) Ileocolic anastomotic leak: Code(s): K91.89 - Other postprocedural complications and disorders of digestive system Status: Acute Assessment and Plan: * Patient tolerated clamping trial with clear liquids well. Will advance to full liquids for dinner. TPN resumed for today. Will likely stop tomorrow or . * Vancomycin will need to be administered through the mucus fistula rather than PO. Will administer this tomorrow and teach nursing staff how to administer. * Continue PT/OT * Continue IV antibiotics (2) Protein calorie malnutrition: Qualifiers: Protein-calorie malnutrition severity: severe Qualified Code(s): E43 - Unspecified severe protein-calorie malnutrition Code(s): E46 - Unspecified protein-calorie malnutrition Status: Acute Assessment and Plan: * Continue TPN. Will discontinue tomorrow or . Plan Discussed patient's case and plan of care with Dr. Burch. Subjective Subjective Date/Time Seen: 12/17/24 15:19 Patient reports: no new complaints, tolerating liquids well, bowel movement (good ileostomy output) and afebrile Interval history: Patient doing well today. Minimal abdominal pain. WBC down to 12.1. Tolerating clear liquids without nausea or vomiting. Exam Const: General: comfortable and no acute distress GI: Inspection: distended and incision (Wound VAC dressing dry and intact) Auscultation: normal bowel sounds and Hypoactive bowel sounds present (Very hypoactive) Rectal Exam: deferred Other: wound vac in place with serosanguineous drainage JUHI with serosanguineous, slightly cloudy output Ileostomy pink with moderate amount of liquid brown stool in bag. Mucus fistula slightly dark but well approximated. Minimal bowel ssweat in bag. Objective Data Vital Signs Vital Signs: Vital Signs - 24 hr 12/16/24 16:00 12/16/24 16:00 12/16/24 16:00 Temperature 98.4 F Pulse Rate 106 H 114 H Respiratory Rate 24 H Blood Pressure 129/69 Pulse Oximetry 93 98 Oxygen Delivery Nasal Cannula Oxygen Flow Rate 1 Fraction of Inspired Oxygen 12/16/24 18:00 12/16/24 20:00 12/16/24 20:00 Temperature 98.7 F Pulse Rate 105 H 107 H Respiratory Rate 18 Blood Pressure 122/66 Pulse Oximetry 94 94 Oxygen Delivery Nasal Cannula Oxygen Flow Rate 1 Fraction of Inspired Oxygen 12/16/24 20:00 12/16/24 22:00 12/16/24 23:00 Temperature Pulse Rate 108 H 106 H Respiratory Rate Blood Pressure Pulse Oximetry 94 Oxygen Delivery Nasal Cannula Oxygen Flow Rate 1 Fraction of Inspired Oxygen 12/17/24 00:00 12/17/24 00:00 12/17/24 01:48 Temperature 98.8 F Pulse Rate 105 H 105 H 103 H Respiratory Rate 18 Blood Pressure 122/65 Pulse Oximetry 91 Oxygen Delivery Oxygen Flow Rate Fraction of Inspired Oxygen 12/17/24 04:00 12/17/24 04:00 12/17/24 04:00 Temperature 99.0 F Pulse Rate 107 H 107 H Respiratory Rate 18 Blood Pressure 120/61 Pulse Oximetry 93 92 Oxygen Delivery Nasal Cannula Oxygen Flow Rate 1 Fraction of Inspired Oxygen 12/17/24 06:00 12/17/24 08:00 12/17/24 08:00 Temperature 98.3 F Pulse Rate 102 H 106 H Respiratory Rate 20 Blood Pressure 122/64 Pulse Oximetry 93 94 Oxygen Delivery Nasal Cannula Oxygen Flow Rate 1 Fraction of Inspired Oxygen 28 12/17/24 08:00 12/17/24 08:18 12/17/24 09:59 Temperature Pulse Rate 106 H 106 H Respiratory Rate Blood Pressure Pulse Oximetry 94 Oxygen Delivery Room Air Oxygen Flow Rate Fraction of Inspired Oxygen 12/17/24 12:00 12/17/24 12:00 12/17/24 12:00 Temperature 98.0 F Pulse Rate 111 H 107 H Respiratory Rate 28 H Blood Pressure 105/68 Pulse Oximetry 94 94 Oxygen Delivery Nasal Cannula Oxygen Flow Rate 1 Fraction of Inspired Oxygen 12/17/24 14:00 Temperature Pulse Rate 109 H Respiratory Rate Blood Pressure Pulse Oximetry Oxygen Delivery Oxygen Flow Rate Fraction of Inspired Oxygen Intake/Output Intake/Output: Intake & Output 12/14/24 12/15/24 12/16/24 12/17/24 23:59 23:59 23:59 23:59 Intake Total 1602.5 1621.7 1502.5 1048.3 Output Total 2030 1505 1070 762 Balance -427.5 116.7 432.5 286.3 Meds/Results Medications: Active Medications Generic Name Dose Route Start Last Admin Trade Name Freq PRN Reason Stop Dose Admin Acetaminophen 650 mg 12/10/24 04:32 12/11/24 20:18 Acetaminophen 650 Mg Suppository RECTAL 650 mg Q4H PRN Administration Mild Pain (1-3) or Fever Dextrose 12.5 gm 12/14/24 10:29 Dextrose 50% 25 Gm/50 Ml Syringe IV PUSH PRN PRN Hypoglycemia Protocol Enoxaparin Sodium 40 mg 12/07/24 09:00 12/17/24 07:28 Enoxaparin 40 Mg/0.4 Ml Syringe SUB-Q Not Given DAILY CEE Glucose 15 gm 12/14/24 10:29 Glucose Oral Gel 15 Gm Of Glucse In 37.5 Gm Tube PO PRN PRN Hypoglycemia Protocol Hydromorphone HCl 1 mg 12/06/24 17:15 12/17/24 05:51 Hydromorphone Hcl Inj (*Crx) 1 Mg/Ml Syr IV PUSH 1 mg Q2H PRN Administration Breakthrough Pain Rated 7-10 or NPO Hydromorphone HCl 0.5 mg 12/06/24 17:15 12/16/24 23:39 Hydromorphone Hcl Inj (*Crx) 1 Mg/Ml Syr IV PUSH 0.5 mg Q2H PRN Administration Breakthrough Pain Rated 4-6 or NPO Dextrose 1,000 mls @ 50 mls/hr 12/06/24 17:15 Dextrose 10% IV CONT .Q20H PRN if PN is interrupted Fat Emulsion Intravenous 250 mls @ 20.833 mls/hr 12/06/24 18:00 12/16/24 17:14 Lipids 20% IVPB 20.8 mls/hr Q24H CEE Administration Multivitamins 1.25 ml/ 1,002.5 mls @ 50 mls/hr 12/08/24 10:00 12/17/24 04:58 Multivitamins 1.25 ml/ Amino IV CONT 50 mls/hr Acids/Electrolytes/Dextrose .Q20H3M CEE Administration Protocol Dextrose 1,000 mls @ 100 mls/hr 12/14/24 10:29 Dextrose 5% 1,000 Ml IVPB PRN PRN Hypoglycemia Protocol Vancomycin HCl 1,250 mg in 250 mls @ 166.667 mls/hr 12/17/24 09:00 12/17/24 09:03 Vancomycin 1,250 Mg/Ns 250 Ml IVPB 166.67 mls/hr Q18H CEE Administration Piperacillin Sod/Tazobactam 50 mls @ 100 mls/hr 12/17/24 14:30 12/17/24 14:38 Sod 3.375 gm/ Sodium Chloride IVPB 100 mls/hr Q6HR CEE Administration Insulin Aspart 3 - 6 units 12/15/24 06:00 12/17/24 12:17 Insulin Aspart (*Bkc) 100 Units/Ml SUB-Q 4 units Q6HR CEE Administration Protocol Naloxone HCl 0.1 mg 12/06/24 17:15 Naloxone Hcl 0.4 Mg/Ml Vial IV PUSH Q2M PRN Opiate Reversal Ondansetron HCl 4 mg 12/03/24 17:26 12/09/24 05:23 Ondansetron Inj 4 Mg/2 Ml Vial IV PUSH 4 mg Q4H PRN Administration Nausea And Vomiting Pantoprazole Sodium 40 mg 12/07/24 09:00 12/17/24 09:04 Pantoprazole Sodium Iv 40 Mg Vial IV PUSH 40 mg QAM CEE Administration Phenol 1 spray 12/07/24 10:05 Phenol/Sod Pheno Cable Salomon (*Bkc) MUCOUS MEM Q2H PRN Sore Throat Sodium Chloride 10 ml 12/07/24 14:00 12/17/24 11:51 Central Line Flush IV PUSH 10 ml Q8HR CEE Administration Sodium Chloride 10 ml 12/07/24 09:45 12/11/24 00:42 Central Line Flush IV PUSH 10 ml PRN PRN Administration with TPN bag changes Sodium Chloride 20 ml 12/07/24 09:45 12/11/24 05:39 Central Line Flush IV PUSH 20 ml PRN PRN Administration after blood draws Vancomycin HCl 125 mg 12/14/24 00:00 12/17/24 11:50 Vancomycin Oral 125 Mg/2.5 Ml Syrup PO 125 mg Q6HR CEE Administration Radiology Results: ITS Impressions Renal Ultrasound 12/04/24 21:30 Impression: 1: Unremarkable renal ultrasound. No stones, masses or hydronephrosis. Pulmonary Perfusion Imaging 12/05/24 18:55 IMPRESSION: 1: Normal perfusion scan. Probable shallow lung volumes. Recommend correlation with chest x-ray.. Chest/Abdomen/Pelvis CT 12/10/24 10:51 IMPRESSION: 1. Small amount of likely residual free intraperineal gas and fluid post likely revision of an ileocolic anastomosis and placement of a surgical drain. No evident organized abscess or extraluminal contrast to suggest residual anastomotic leak. 2. Wall thickening along the sigmoid colon consistent with colitis infectious or inflammatory in etiology. Differential would also include residual reactive edema related to the prior anastomotic leak and recent surgery. 3. Volume loss in both lungs with atelectasis at the bilateral lung bases including complete collapse of the right middle lobe. Superimposed pneumonia not excludable but suspicion is low. 4. Chronic mild dilation the common bile duct without evident obstructing stone or mass, likely related to prior cholecystectomy but would correlate with liver function tests. CT Brain Angiography 12/13/24 11:34 IMPRESSION: 1. Normal aging brain. No acute intracranial process or abnormally enhancing brain lesions. 2. Unremarkable cerebral CT angiogram with no hemodynamic significant stenosis, thrombosis or aneurysm. Chest X-Ray 12/13/24 12:26 IMPRESSION: 1. Persistent bibasilar atelectasis and/or airspace disease. 2. No significant change from one week prior. Abdomen/Pelvis CT 12/13/24 12:45 IMPRESSION: 1. Status post right hemicolectomy with anastomotic leak at the right lower quadrant ileocolic anastomosis. 2. Moderate bibasilar atelectasis, right greater than left with mucous bony of right middle and lower lobar bronchi. Chest CTA 12/13/24 12:45 IMPRESSION: 1. No pulmonary embolus. Sensitivity is moderately decreased by motion artifact. 2. Small lung volumes with relative elevation of right hemidiaphragm. Moderate atelectasis in the inferior lungs 3. Ascites. Labs Labs: Laboratory Results - last 24 hr 12/16/24 12/16/24 12/17/24 17:12 23:52 04:56 WBC 12.1 H RBC 2.42 L Hgb 7.2 L Hct 21.4 L MCV 88.4 MCH 29.8 D MCHC 33.6 RDW 21.2 H Plt Count 453 H MPV 12.1 H Sodium Potassium Chloride Carbon Dioxide Anion Gap BUN Creatinine 0.74 Estim Creat Clear Calc Not Reportable Estimated GFR > 60 Glucose POC Capillary Glucose 203 H 270 H Calcium Magnesium Total Bilirubin AST ALT Alkaline Phosphatase Total Protein Albumin 12/17/24 12/17/24 12/17/24 06:01 08:56 11:31 WBC RBC Hgb Hct MCV MCH MCHC RDW Plt Count MPV Sodium 142 Potassium 3.2 L Chloride 114 H Carbon Dioxide 27 Anion Gap 1 L BUN 26 H Creatinine 0.71 Estim Creat Clear Calc Not Reportable Estimated GFR > 60 Glucose 236 H POC Capillary Glucose 222 H 256 H Calcium 7.3 L Magnesium 2.7 H Total Bilirubin 0.3 AST 76 H ALT 44 H Alkaline Phosphatase 153 H Total Protein 5.3 L Albumin 2.1 L
[2024-12-17] MEDS: FAT EMULSIONS IV 20% 250 ML 20.8 ML IVPB (17:41)
[2024-12-18] VITALS (19 sets, daily range): BP systolic 113–154; BP diastolic 52–76; PULSE 94–110; RESP 18–28; TEMP 36.4–37.3; O2SAT 93–97
[2024-12-18] MEDS: PIPERACILLIN/TAZOBACTAM SOD 3.375 GM in SODIUM CHLORIDE 0.9% IV 50 ML 100 ML IVPB ×4 (00:29→17:45)
[2024-12-18] MEDS: VANCOMYCIN HCL 125 MG ORAL CAPSULE PO ×3 (00:33→11:44)
[2024-12-18] MEDS: INSULIN ASPART (*BKC) 100 UNITS/ML SUB-Q ×2 (00:34→05:58)
[2024-12-18] MEDS: AMINO ACIDS 5%/D15W/E-LYTES/CA 1,000 ML with MULTIVITAMINS-12 INJ VIAL 1 1.25 ML, MULTI... 50 ML IV CONT (00:40)
[2024-12-18 02:34] LABS: Hematocrit 22.1 % (37.0-47.0); Immature Granulocyte Percent A 1.4 % (0-0.5); Lymphocytes Absolute Auto 1.17 K/mm3 (0.9-3.2); Mean Corpuscular HGB Conc 29.9 g/dl (32-36); Mean Corpuscular Hemoglobin 25.9 pg (26-34); Mean Corpuscular Volume 86.7 fl (80-100); Nucleated Red Blood Cells Absolute Auto 0.290 K/mm3 (0.0-0.012); Nucleated Red Blood Cells Perc 2.3 % (0.0-0.2); Platelet Count Result 531 k/mm3 (150-375); Red Blood Count 2.55 M/mm3 (4.2-5.4); White Blood Count 12.5 K/mm3 (4.5-10.0)
[2024-12-18 02:44] LABS: Hemoglobin 6.6 g/dL (12.0-15.0)
[2024-12-18 02:45] LABS: Hypochromasia 1+; Ovalocytes 1+; Schistocytes None Seen
[2024-12-18 02:46] LABS: Alanine Aminotransferase 41 U/L (6-35); Albumin Level 2.0 g/dL (3.5-5.1); Alkaline Phosphatase 122 U/L (38-126); Anion Gap 2 mmol/L (4-12); Aspartate Amino Transferase 50 U/L (14-36); Bilirubin,Total 0.3 mg/dL (0.2-1.3); Blood Urea Nitrogen 23 mg/dL (7-17); Calcium 7.4 mg/dL (8.4-10.2); Carbon Dioxide 26 mmol/L (22-30); Chloride 115 mmol/L (98-107); Estimated Glomerular Filt Rate > 60; Glucose 212 mg/dL (65-110); Magnesium 2.5 mg/dL (1.6-2.3); Potassium 3.6 mmol/L (3.4-5.0); Sodium 143 mmol/L (137-145); Total Protein 5.0 g/dL (6.3-8.2); Triglycerides 196 mg/dL (<150)
[2024-12-18] MEDS: VANCOMYCIN 1,250 MG/NS 250 ML 1,250 MG/250 ML BAG 166.67 MG IVPB (03:21)
[2024-12-18] MEDS: SODIUM CHLORIDE 0.9% IV 250 ML 30 ML IV CONT (05:28)
[2024-12-18] MEDS: TUBING, BLOOD PLUM PUMP TUBING 1 EACH XX (05:28)
[2024-12-18] MEDS: CENTRAL LINE FLUSH 10 ML IV PUSH ×3 (05:31→22:05)
--- NOTE | 2024-12-18 08:24 | PM.IMPN ---
Progress Note: A&P Assessment and Plan (1) History of partial colectomy: Code(s): Z90.49 - Acquired absence of other specified parts of digestive tract Status: Resolved (2) Ileocolic anastomotic leak: Code(s): K91.89 - Other postprocedural complications and disorders of digestive system Status: Acute (3) Acute blood loss anemia: Code(s): D62 - Acute posthemorrhagic anemia Status: Acute (4) Acute hypoxemic respiratory failure: Code(s): J96.01 - Acute respiratory failure with hypoxia Status: Acute Plan 64 y/o F with PMH of cancer the right colon S/P right colectomy, thrombosis of the mesenteric vein, WILL, diverticulitis, rhabdomyolysis (2021), hyperlipidemia and hypertension presented here on 12/03 with difficulty urinating. Previously underwent a hand assisted laparoscopic right colectomy with extensive adhesiolysis, mobilization of hepatic flexure by Dr. May on 11/27/24. Discharge on postop day 2 as she was doing well. At home she has had worsening abdominal pain, constipation. On readmission she has had a lengthy hospital course, on 12/06 undergoing a exploratory laparotomy with ileocolic resection with [id number]-[id number] ileo colic anastomosis drainage of intra-abdominal abscess with placement of wound VAC. Due to bile in JUHI drains she had a repeat abdomen pelvis CT with water-soluble oral contrast demonstrating right hemicolectomy with anastomotic leak. On 12/13/2024 she underwent re-exploration with ileocolic resection with end ileostomy and mucous fistula creation and placement of wound VAC within subcutaneous space measuring 12 cm x 3 cm. General surgery managing wounds, wound VAC, JUHI drain. Currently on TPN. Wound care per surgery and unit protocol and wound care. Malnutrition: Related to surgery, continue TPN. NG tube in place which is clamped. Started on clear liquid per General surgery. This has been advanced to full liquid now. NG has been removed 12/17/2024 Sepsis: Monitor leukocytosis, tachypnea, tachycardia. Overall trend of leukocytosis has peaked at 19.9 on 12/08/2024. Continue to monitor along with procalcitonin. Infectious Disease consulted, continue meropenem, vancomycin p.o. 12/04/2024 blood culture x2 negative, final. vancomycin oral needs to transition to administration through mucous fistula. C diff colitis: Appreciate ID recommendations, currently on p.o. vancomycin Post hemorrhagic anemia: Monitor daily hemoglobin, stable. Restart Lovenox 40 mg subQ q.day for DVT prophylaxis when okay by surgery. Hypocalcemia: After correction for hypoalbuminemia, 8.1. Continue to monitor. Elevated blood glucose readings: HbA1c 6.0%. Accu-Cheks q.6 hours with hypoglycemia protocol and low-dose insulin sliding scale. Acute hypoxic respiratory failure: Patient weaned to room air on 12/15/2024. Due to atelectasis, CTA chest did not demonstrate pneumonia/PE. Continue incentive spirometer and EzPAP q.i.d.. Mobilize as soon as possible. Acute kidney injury and urinary retention: Could be due to hypovolemia, anemia, urinary retention, sepsis, contrast exposure. DARRYL has resolved. Nephrology signed off. Limon catheter remains due to surgery and immobility. 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 Monitor blood pressure. Anemia hemoglobin down to 6.6 12/18/2024 1 unit PRBC. Continue to monitor blood counts DVT prophylaxis: SCDs. Lovenox 40 mg daily currently on hold due to anemia Nutrition: NPO. TPN. Prophylaxis: Protonix 40 mg IV q.a.m. for ulcer prophylaxis. Right upper extremity PICC line Deconditioning, PT/OT as appropriate per General surgery team. EzPAP, incentive spirometer. Patient wishes to be full code. Prior to admission she lives at home and was independent. Subjective Date/time seen: 12/18/24 08:24 Interval history: NG removed. H&H dropped this a.m. and getting 1 unit of PRBC transfusion. She denies any new complaints. She is tolerating full liquid diet. She continues on TPN. Review of Systems Review of Systems: All systems reviewed & are unremarkable except as noted in HPI and below (Subjective) Exam Narrative: GENERAL: Alert and oriented x3, not in acute distress HEAD: Normal with no signs of head trauma. EYES: EOMI, conjunctiva normal ENT: Hearing grossly intact LUNGS: Nonlabored breathing. No adventitious sounds HEART: [Regular rate and rhythm] ABD: [Soft], mildly distended, mild tenderness, surgical incision with wound VAC, clean dry and intact EXT: Normal range of motion SKIN: [No rashes or lesions.] NEURO: [Alert and oriented x 3. No gross focal sensory or strength deficits.] PSYCH: Normal affect Objective Data Vital Signs Vital Signs: Vital Signs - 24 hr 12/17/24 09:59 12/17/24 12:00 12/17/24 12:00 Temperature Pulse Rate 106 H 111 H Respiratory Rate Blood Pressure Pulse Oximetry 94 Oxygen Delivery Nasal Cannula Oxygen Flow Rate 1 12/17/24 12:00 12/17/24 14:00 12/17/24 15:36 Temperature 98.0 F Pulse Rate 107 H 109 H Respiratory Rate 28 H Blood Pressure 105/68 Pulse Oximetry 94 94 Oxygen Delivery Nasal Cannula Oxygen Flow Rate 1 12/17/24 16:00 12/17/24 16:00 12/17/24 18:00 Temperature 98.9 F Pulse Rate 108 H 105 H 112 H Respiratory Rate 28 H Blood Pressure 119/66 Pulse Oximetry 95 Oxygen Delivery Oxygen Flow Rate 12/17/24 20:00 12/17/24 20:00 12/17/24 20:15 Temperature Pulse Rate 110 H Respiratory Rate Blood Pressure Pulse Oximetry 96 95 Oxygen Delivery Nasal Cannula Room Air Oxygen Flow Rate 1 12/17/24 20:25 12/17/24 22:00 12/17/24 23:34 Temperature 99.0 F 99 F Pulse Rate 108 H 103 H 107 H Respiratory Rate 22 H 20 Blood Pressure 141/69 H 131/66 Pulse Oximetry 97 96 Oxygen Delivery Oxygen Flow Rate 12/18/24 00:00 12/18/24 00:00 12/18/24 02:00 Temperature Pulse Rate 106 H 103 H Respiratory Rate Blood Pressure Pulse Oximetry 95 Oxygen Delivery Nasal Cannula Oxygen Flow Rate 1 12/18/24 04:00 12/18/24 04:00 12/18/24 04:23 Temperature 97.6 F Pulse Rate 102 H 104 H Respiratory Rate 20 Blood Pressure 128/76 Pulse Oximetry 97 96 Oxygen Delivery Nasal Cannula Oxygen Flow Rate 1 12/18/24 05:27 12/18/24 05:43 12/18/24 06:00 Temperature 98.0 F 98.4 F Pulse Rate 102 H 101 H 101 H Respiratory Rate 20 20 Blood Pressure 119/71 118/64 Pulse Oximetry 97 95 Oxygen Delivery Oxygen Flow Rate 12/18/24 06:43 12/18/24 08:00 Temperature 98.0 F 98.3 F Pulse Rate 99 104 H Respiratory Rate 20 22 H Blood Pressure 126/72 113/68 Pulse Oximetry 96 96 Oxygen Delivery Oxygen Flow Rate Intake/Output Intake/Output: Intake & Output 12/15/24 12/16/24 12/17/24 12/18/24 23:59 23:59 23:59 23:59 Intake Total 1621.7 1502.5 1548.3 1485 Output Total 1505 1070 1362 1920 Balance 116.7 432.5 186.3 -435 Meds/Results Medications: Active Medications Generic Name Dose Route Start Last Admin Trade Name Freq PRN Reason Stop Dose Admin Acetaminophen 650 mg 12/10/24 04:32 12/11/24 20:18 Acetaminophen 650 Mg Suppository RECTAL 650 mg Q4H PRN Administration Mild Pain (1-3) or Fever Dextrose 12.5 gm 12/14/24 10:29 Dextrose 50% 25 Gm/50 Ml Syringe IV PUSH PRN PRN Hypoglycemia Protocol Enoxaparin Sodium 40 mg 12/07/24 09:00 12/17/24 07:28 Enoxaparin 40 Mg/0.4 Ml Syringe SUB-Q Not Given DAILY CEE Glucose 15 gm 12/14/24 10:29 Glucose Oral Gel 15 Gm Of Glucse In 37.5 Gm Tube PO PRN PRN Hypoglycemia Protocol Hydromorphone HCl 1 mg 12/06/24 17:15 12/17/24 20:44 Hydromorphone Hcl Inj (*Crx) 1 Mg/Ml Syr IV PUSH 1 mg Q2H PRN Administration Breakthrough Pain Rated 7-10 or NPO Hydromorphone HCl 0.5 mg 12/06/24 17:15 12/16/24 23:39 Hydromorphone Hcl Inj (*Crx) 1 Mg/Ml Syr IV PUSH 0.5 mg Q2H PRN Administration Breakthrough Pain Rated 4-6 or NPO Dextrose 1,000 mls @ 50 mls/hr 12/06/24 17:15 Dextrose 10% IV CONT .Q20H PRN if PN is interrupted Fat Emulsion Intravenous 250 mls @ 20.833 mls/hr 12/06/24 18:00 12/17/24 17:41 Lipids 20% IVPB 20.8 mls/hr Q24H CEE Administration Multivitamins 1.25 ml/ 1,002.5 mls @ 50 mls/hr 12/08/24 10:00 12/18/24 00:40 Multivitamins 1.25 ml/ Amino IV CONT 50 mls/hr Acids/Electrolytes/Dextrose .Q20H3M CEE Administration Protocol Dextrose 1,000 mls @ 100 mls/hr 12/14/24 10:29 Dextrose 5% 1,000 Ml IVPB PRN PRN Hypoglycemia Protocol Piperacillin Sod/Tazobactam 50 mls @ 100 mls/hr 12/17/24 14:30 12/18/24 00:59 Sod 3.375 gm/ Sodium Chloride IVPB Infused Q6HR CEE Infusion Sodium Chloride 250 mls @ 30 mls/hr 12/18/24 02:49 12/18/24 05:28 Normal Saline Iv IV CONT 12/18/24 11:08 30 mls/hr .Q8H20M STA Administration Vancomycin HCl 1,250 mg in 250 mls @ 166.667 mls/hr 12/18/24 03:00 12/18/24 04:51 Vancomycin 1,250 Mg/Ns 250 Ml IVPB Infused Q12H CEE Infusion Insulin Aspart 3 - 6 units 12/15/24 06:00 12/18/24 05:58 Insulin Aspart (*Bkc) 100 Units/Ml SUB-Q 3 units Q6HR CEE Administration Protocol Naloxone HCl 0.1 mg 12/06/24 17:15 Naloxone Hcl 0.4 Mg/Ml Vial IV PUSH Q2M PRN Opiate Reversal Ondansetron HCl 4 mg 12/03/24 17:26 12/09/24 05:23 Ondansetron Inj 4 Mg/2 Ml Vial IV PUSH 4 mg Q4H PRN Administration Nausea And Vomiting Pantoprazole Sodium 40 mg 12/07/24 09:00 12/17/24 09:04 Pantoprazole Sodium Iv 40 Mg Vial IV PUSH 40 mg QAM CEE Administration Phenol 1 spray 12/07/24 10:05 Phenol/Sod Pheno Shoup Salomon (*Bkc) MUCOUS MEM Q2H PRN Sore Throat Sodium Chloride 10 ml 12/07/24 14:00 12/18/24 05:31 Central Line Flush IV PUSH 10 ml Q8HR CEE Administration Sodium Chloride 10 ml 12/07/24 09:45 12/11/24 00:42 Central Line Flush IV PUSH 10 ml PRN PRN Administration with TPN bag changes Sodium Chloride 20 ml 12/07/24 09:45 12/11/24 05:39 Central Line Flush IV PUSH 20 ml PRN PRN Administration after blood draws Vancomycin HCl 125 mg 12/18/24 00:00 12/18/24 05:53 Vancomycin Hcl 125 Mg Oral Capsule PO 12/28/24 00:00 125 mg Q6HR CEE Administration Radiology Results: ITS Impressions Renal Ultrasound 12/04/24 21:30 Impression: 1: Unremarkable renal ultrasound. No stones, masses or hydronephrosis. Pulmonary Perfusion Imaging 12/05/24 18:55 IMPRESSION: 1: Normal perfusion scan. Probable shallow lung volumes. Recommend correlation with chest x-ray.. Chest/Abdomen/Pelvis CT 12/10/24 10:51 IMPRESSION: 1. Small amount of likely residual free intraperineal gas and fluid post likely revision of an ileocolic anastomosis and placement of a surgical drain. No evident organized abscess or extraluminal contrast to suggest residual anastomotic leak. 2. Wall thickening along the sigmoid colon consistent with colitis infectious or inflammatory in etiology. Differential would also include residual reactive edema related to the prior anastomotic leak and recent surgery. 3. Volume loss in both lungs with atelectasis at the bilateral lung bases including complete collapse of the right middle lobe. Superimposed pneumonia not excludable but suspicion is low. 4. Chronic mild dilation the common bile duct without evident obstructing stone or mass, likely related to prior cholecystectomy but would correlate with liver function tests. CT Brain Angiography 12/13/24 11:34 IMPRESSION: 1. Normal aging brain. No acute intracranial process or abnormally enhancing brain lesions. 2. Unremarkable cerebral CT angiogram with no hemodynamic significant stenosis, thrombosis or aneurysm. Chest X-Ray 12/13/24 12:26 IMPRESSION: 1. Persistent bibasilar atelectasis and/or airspace disease. 2. No significant change from one week prior. Abdomen/Pelvis CT 12/13/24 12:45 IMPRESSION: 1. Status post right hemicolectomy with anastomotic leak at the right lower quadrant ileocolic anastomosis. 2. Moderate bibasilar atelectasis, right greater than left with mucous bony of right middle and lower lobar bronchi. Chest CTA 12/13/24 12:45 IMPRESSION: 1. No pulmonary embolus. Sensitivity is moderately decreased by motion artifact. 2. Small lung volumes with relative elevation of right hemidiaphragm. Moderate atelectasis in the inferior lungs 3. Ascites. Labs Labs: Laboratory Results - last 24 hr 12/13/24 12/17/24 12/17/24 15:23 04:56 08:56 WBC RBC Hgb Hct MCV MCH MCHC RDW Plt Count MPV Immature Gran % (Auto) Neut % (Auto) Lymph % (Auto) [place] % (Auto) Eos % (Auto) Baso % (Auto) Lymph # (Auto) [place] # (Auto) Eos # (Auto) Baso # (Auto) Abs Immat Gran (auto) Absolute Neuts (auto) Absolute Nucleated RBC Band Neutrophils % Nucleated RBC % Platelet Estimate Hypochromasia Ovalocytes Schistocytes Sodium Cancelled 142 Potassium Cancelled 3.2 L Chloride Cancelled 114 H Carbon Dioxide Cancelled 27 Anion Gap Cancelled 1 L BUN Cancelled 26 H Creatinine Cancelled 0.71 Estim Creat Clear Calc Cancelled Not Reportable Estimated GFR Cancelled > 60 Glucose Cancelled 236 H POC Capillary Glucose Calcium Cancelled 7.3 L Magnesium Cancelled 2.7 H Total Bilirubin Cancelled 0.3 AST Cancelled 76 H ALT Cancelled 44 H Alkaline Phosphatase Cancelled 153 H Total Protein Cancelled 5.3 L Albumin Cancelled 2.1 L Triglycerides Vancomycin Trough Blood Type Antibody Screen Crossmatch See Detail 12/17/24 12/17/24 12/17/24 11:31 16:27 18:24 WBC RBC Hgb Hct MCV MCH MCHC RDW Plt Count MPV Immature Gran % (Auto) Neut % (Auto) Lymph % (Auto) [place] % (Auto) Eos % (Auto) Baso % (Auto) Lymph # (Auto) [place] # (Auto) Eos # (Auto) Baso # (Auto) Abs Immat Gran (auto) Absolute Neuts (auto) Absolute Nucleated RBC Band Neutrophils % Nucleated RBC % Platelet Estimate Hypochromasia Ovalocytes Schistocytes Sodium Potassium Chloride Carbon Dioxide Anion Gap BUN Creatinine Estim Creat Clear Calc Estimated GFR Glucose POC Capillary Glucose 256 H 246 H 322 H Calcium Magnesium Total Bilirubin AST ALT Alkaline Phosphatase Total Protein Albumin Triglycerides Vancomycin Trough Blood Type Antibody Screen Crossmatch 12/18/24 12/18/24 12/18/24 00:32 02:19 03:17 WBC 12.5 H RBC 2.55 L Hgb 6.6 L* Hct 22.1 L MCV 86.7 MCH 25.9 L D MCHC 29.9 L RDW 20.8 H Plt Count 531 H MPV 10.8 H Immature Gran % (Auto) 1.4 H Neut % (Auto) 81.7 H Lymph % (Auto) 9.[address] % (Auto) 4.8 Eos % (Auto) 2.6 Baso % (Auto) 0.2 Lymph # (Auto) 1.17 [place] # (Auto) 0.6 Eos # (Auto) 0.3 Baso # (Auto) 0.0 Abs Immat Gran (auto) 0.18 H Absolute Neuts (auto) 10.2 H Absolute Nucleated RBC 0.290 H Band Neutrophils % Not Reportable Nucleated RBC % 2.3 H Platelet Estimate Increased Hypochromasia 1+ Ovalocytes 1+ Schistocytes None seen Sodium 143 Potassium 3.6 Chloride 115 H Carbon Dioxide 26 Anion Gap 2 L BUN 23 H Creatinine 0.73 Estim Creat Clear Calc Not Reportable Estimated GFR > 60 Glucose 212 H POC Capillary Glucose 250 H Calcium 7.4 L Magnesium 2.5 H Total Bilirubin 0.3 AST 50 H ALT 41 H Alkaline Phosphatase 122 Total Protein 5.0 L Albumin 2.0 L Triglycerides 196 H Vancomycin Trough 10.7 Blood Type A Negative Antibody Screen Negative Crossmatch See Detail 12/18/24 05:58 WBC RBC Hgb Hct MCV MCH MCHC RDW Plt Count MPV Immature Gran % (Auto) Neut % (Auto) Lymph % (Auto) [place] % (Auto) Eos % (Auto) Baso % (Auto) Lymph # (Auto) [place] # (Auto) Eos # (Auto) Baso # (Auto) Abs Immat Gran (auto) Absolute Neuts (auto) Absolute Nucleated RBC Band Neutrophils % Nucleated RBC % Platelet Estimate Hypochromasia Ovalocytes Schistocytes Sodium Potassium Chloride Carbon Dioxide Anion Gap BUN Creatinine Estim Creat Clear Calc Estimated GFR Glucose POC Capillary Glucose 210 H Calcium Magnesium Total Bilirubin AST ALT Alkaline Phosphatase Total Protein Albumin Triglycerides Vancomycin Trough Blood Type Antibody Screen Crossmatch
[2024-12-18] MEDS: ENOXAPARIN 40 MG/0.4 ML SYRINGE SUB-Q (08:35)
[2024-12-18] MEDS: PANTOPRAZOLE SODIUM IV 40 MG VIAL IV PUSH (08:35)
[2024-12-18 10:53] LABS: Hematocrit 28.8 % (37.0-47.0); Hemoglobin 9.2 g/dL (12.0-15.0)
--- NOTE | 2024-12-18 12:04 | PC.NURSE ---
Pt blood sugar is 229. Went to give corrective sliding scale insulin with patients meal pt only ate a few bites before deciding that she was not wanting to eat anymore of her meal. Patients sliding scale not given due to patient not eating any lunch.
[2024-12-18] MEDS: VANCOMYCIN 1,250 MG/NS 250 ML 1,250 MG/250 ML BAG 166 MG IVPB (14:54)
--- NOTE | 2024-12-18 15:02 | PM.PNGS ---
Progress Note: A&P Assessment and Plan (1) Ileocolic anastomotic leak: Code(s): K91.89 - Other postprocedural complications and disorders of digestive system Status: Acute Assessment and Plan: Wound VAC changed today. Abdominal wound is healing well. Will plan to change the wound VAC again on Monday. Will start daily iodoform packing dressing changes to RLQ wound where JUHI drain was removed. Advance to regular diet. Continue supplements. Continue IV antibiotics, ID following Continue PT/OT, increase activity as tolerated (2) Protein calorie malnutrition: Qualifiers: Protein-calorie malnutrition severity: severe Qualified Code(s): E43 - Unspecified severe protein-calorie malnutrition Code(s): E46 - Unspecified protein-calorie malnutrition Status: Acute Assessment and Plan: No longer on TPN. Continue to encourage PO intake and Ensure supplements. (3) C. difficile diarrhea: Onset Date: ~04/01/24 Code(s): A04.72 - Enterocolitis due to Clostridium difficile, not specified as recurrent Status: Suspected Assessment and Plan: Cdiff infection in March 2024. 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 Will switch her vancomycin to liquid vanc and have it injected into the mucous fistula Q6H. Discussed with ID. Plan Discussed patient's case and plan of care with Dr. Burch. Subjective Subjective Date/Time Seen: 12/18/24 15:02 Post Op day: 5 (Re-exploration of recent laparotomy, Ileocolic resection with end ileostomy and mucous fistula creation, Placement of wound VAC) Patient reports: no new complaints and afebrile Interval history: Patient seen after doing therapy. She was able to sit at the side of the bed and do exercises. She is tolerating full liquids. Ileostomy is functioning well. Mucous fistula has serosanguineous drainage. U/O adequate. WBC count 12.5 (overall downward trend). Review of Systems Review of Systems: All systems reviewed & are unremarkable except as noted in HPI and below Exam Const: General: comfortable and no acute distress GI: Inspection: other (mildly distended) GI Palp: Yes Soft to palpation and Yes Tenderness to palpation present (GI) Auscultation: normal bowel sounds Other: Wound VAC dressing changed. Midline abdominal wound is pink with granulating tissue forming, no purulent drainage, fascia intact. JUHI with scant cloudy serosanguineous Ileostomy pink with moderate amount of liquid brown stool in bag. Mucus fistula more pink today with serosanguineous drainage in ostomy appliance. Switched to gauze dressing. RLQ wound from previous JUHI drain with scant yellow/tovar drainage and tunnels 8 cm, packed with 1/4 iodoform gauze and covered with 4x4 gauze and tape. Objective Data Vital Signs Vital Signs: Vital Signs - 24 hr 12/17/24 15:36 12/17/24 16:00 12/17/24 16:00 Temperature 98.9 F Pulse Rate 108 H 105 H Respiratory Rate 28 H Blood Pressure 119/66 Pulse Oximetry 94 95 Oxygen Delivery Nasal Cannula Oxygen Flow Rate 1 12/17/24 18:00 12/17/24 20:00 12/17/24 20:00 Temperature Pulse Rate 112 H 110 H Respiratory Rate Blood Pressure Pulse Oximetry 96 Oxygen Delivery Nasal Cannula Oxygen Flow Rate 1 12/17/24 20:15 12/17/24 20:25 12/17/24 22:00 Temperature 99.0 F Pulse Rate 108 H 103 H Respiratory Rate 22 H Blood Pressure 141/69 H Pulse Oximetry 95 97 Oxygen Delivery Room Air Oxygen Flow Rate 12/17/24 23:34 12/18/24 00:00 12/18/24 00:00 Temperature 99 F Pulse Rate 107 H 106 H Respiratory Rate 20 Blood Pressure 131/66 Pulse Oximetry 96 95 Oxygen Delivery Nasal Cannula Oxygen Flow Rate 1 12/18/24 02:00 12/18/24 04:00 12/18/24 04:00 Temperature Pulse Rate 103 H 102 H Respiratory Rate Blood Pressure Pulse Oximetry 97 Oxygen Delivery Nasal Cannula Oxygen Flow Rate 1 12/18/24 04:23 12/18/24 05:27 12/18/24 05:43 Temperature 97.6 F 98.0 F 98.4 F Pulse Rate 104 H 102 H 101 H Respiratory Rate 20 20 20 Blood Pressure 128/76 119/71 118/64 Pulse Oximetry 96 97 95 Oxygen Delivery Oxygen Flow Rate 12/18/24 06:00 12/18/24 06:43 12/18/24 08:00 Temperature 98.0 F 98.3 F Pulse Rate 101 H 99 104 H Respiratory Rate 20 22 H Blood Pressure 126/72 113/68 Pulse Oximetry 96 96 Oxygen Delivery Oxygen Flow Rate 12/18/24 08:00 12/18/24 08:00 12/18/24 08:43 Temperature 98.3 F Pulse Rate 106 H 110 H Respiratory Rate 26 H Blood Pressure 154/75 H Pulse Oximetry 96 96 Oxygen Delivery Nasal Cannula Oxygen Flow Rate 1 12/18/24 09:49 12/18/24 12:00 12/18/24 12:00 Temperature Pulse Rate 106 H 108 H Respiratory Rate Blood Pressure Pulse Oximetry 96 Oxygen Delivery Nasal Cannula Oxygen Flow Rate 1 12/18/24 12:00 12/18/24 14:00 Temperature 98.9 F Pulse Rate 104 H 104 H Respiratory Rate 28 H Blood Pressure 133/52 L Pulse Oximetry 96 Oxygen Delivery Oxygen Flow Rate Intake/Output Intake/Output: Intake & Output 12/15/24 12/16/24 12/17/24 12/18/24 23:59 23:59 23:59 23:59 Intake Total 1621.7 1502.5 1548.3 1885 Output Total 1505 1070 1362 1960 Balance 116.7 432.5 186.3 -75 Meds/Results Medications: Active Medications Generic Name Dose Route Start Last Admin Trade Name Freq PRN Reason Stop Dose Admin Acetaminophen 650 mg 12/10/24 04:32 12/11/24 20:18 Acetaminophen 650 Mg Suppository RECTAL 650 mg Q4H PRN Administration Mild Pain (1-3) or Fever Dextrose 12.5 gm 12/14/24 10:29 Dextrose 50% 25 Gm/50 Ml Syringe IV PUSH PRN PRN Hypoglycemia Protocol Enoxaparin Sodium 40 mg 12/07/24 09:00 12/18/24 08:35 Enoxaparin 40 Mg/0.4 Ml Syringe SUB-Q 40 mg DAILY CEE Administration Glucose 15 gm 12/14/24 10:29 Glucose Oral Gel 15 Gm Of Glucse In 37.5 Gm Tube PO PRN PRN Hypoglycemia Protocol Hydromorphone HCl 1 mg 12/06/24 17:15 12/17/24 20:44 Hydromorphone Hcl Inj (*Crx) 1 Mg/Ml Syr IV PUSH 1 mg Q2H PRN Administration Breakthrough Pain Rated 7-10 or NPO Hydromorphone HCl 0.5 mg 12/06/24 17:15 12/16/24 23:39 Hydromorphone Hcl Inj (*Crx) 1 Mg/Ml Syr IV PUSH 0.5 mg Q2H PRN Administration Breakthrough Pain Rated 4-6 or NPO Dextrose 1,000 mls @ 50 mls/hr 12/06/24 17:15 Dextrose 10% IV CONT .Q20H PRN if PN is interrupted Dextrose 1,000 mls @ 100 mls/hr 12/14/24 10:29 Dextrose 5% 1,000 Ml IVPB PRN PRN Hypoglycemia Protocol Piperacillin Sod/Tazobactam 50 mls @ 100 mls/hr 12/17/24 14:30 12/18/24 11:44 Sod 3.375 gm/ Sodium Chloride IVPB 100 mls/hr Q6HR CEE Administration Vancomycin HCl 1,250 mg in 250 mls @ 166.667 mls/hr 12/18/24 03:00 12/18/24 14:54 Vancomycin 1,250 Mg/Ns 250 Ml IVPB 166 mls/hr Q12H CEE Administration Insulin Aspart 3 - 6 units 12/15/24 06:00 12/18/24 12:04 Insulin Aspart (*Bkc) 100 Units/Ml SUB-Q Not Given Q6HR CEE Protocol Naloxone HCl 0.1 mg 12/06/24 17:15 Naloxone Hcl 0.4 Mg/Ml Vial IV PUSH Q2M PRN Opiate Reversal Ondansetron HCl 4 mg 12/03/24 17:26 12/09/24 05:23 Ondansetron Inj 4 Mg/2 Ml Vial IV PUSH 4 mg Q4H PRN Administration Nausea And Vomiting Pantoprazole Sodium 40 mg 12/07/24 09:00 12/18/24 08:35 Pantoprazole Sodium Iv 40 Mg Vial IV PUSH 40 mg QAM CEE Administration Phenol 1 spray 12/07/24 10:05 Phenol/Sod Pheno [place] (*Bkc) MUCOUS MEM Q2H PRN Sore Throat Sodium Chloride 10 ml 12/07/24 14:00 12/18/24 11:44 Central Line Flush IV PUSH 10 ml Q8HR CEE Administration Sodium Chloride 10 ml 12/07/24 09:45 12/11/24 00:42 Central Line Flush IV PUSH 10 ml PRN PRN Administration with TPN bag changes Sodium Chloride 20 ml 12/07/24 09:45 12/11/24 05:39 Central Line Flush IV PUSH 20 ml PRN PRN Administration after blood draws Vancomycin HCl 125 mg 12/18/24 00:00 12/18/24 11:44 Vancomycin Hcl 125 Mg Oral Capsule PO 12/28/24 00:00 125 mg Q6HR CEE Administration Radiology Results: ITS Impressions Renal Ultrasound 12/04/24 21:30 Impression: 1: Unremarkable renal ultrasound. No stones, masses or hydronephrosis. Pulmonary Perfusion Imaging 12/05/24 18:55 IMPRESSION: 1: Normal perfusion scan. Probable shallow lung volumes. Recommend correlation with chest x-ray.. Chest/Abdomen/Pelvis CT 12/10/24 10:51 IMPRESSION: 1. Small amount of likely residual free intraperineal gas and fluid post likely revision of an ileocolic anastomosis and placement of a surgical drain. No evident organized abscess or extraluminal contrast to suggest residual anastomotic leak. 2. Wall thickening along the sigmoid colon consistent with colitis infectious or inflammatory in etiology. Differential would also include residual reactive edema related to the prior anastomotic leak and recent surgery. 3. Volume loss in both lungs with atelectasis at the bilateral lung bases including complete collapse of the right middle lobe. Superimposed pneumonia not excludable but suspicion is low. 4. Chronic mild dilation the common bile duct without evident obstructing stone or mass, likely related to prior cholecystectomy but would correlate with liver function tests. CT Brain Angiography 12/13/24 11:34 IMPRESSION: 1. Normal aging brain. No acute intracranial process or abnormally enhancing brain lesions. 2. Unremarkable cerebral CT angiogram with no hemodynamic significant stenosis, thrombosis or aneurysm. Chest X-Ray 12/13/24 12:26 IMPRESSION: 1. Persistent bibasilar atelectasis and/or airspace disease. 2. No significant change from one week prior. Abdomen/Pelvis CT 12/13/24 12:45 IMPRESSION: 1. Status post right hemicolectomy with anastomotic leak at the right lower quadrant ileocolic anastomosis. 2. Moderate bibasilar atelectasis, right greater than left with mucous bony of right middle and lower lobar bronchi. Chest CTA 12/13/24 12:45 IMPRESSION: 1. No pulmonary embolus. Sensitivity is moderately decreased by motion artifact. 2. Small lung volumes with relative elevation of right hemidiaphragm. Moderate atelectasis in the inferior lungs 3. Ascites. Labs Labs: Laboratory Results - last 24 hr 12/13/24 12/17/24 12/17/24 15:23 04:56 16:27 WBC RBC Hgb Hct MCV MCH MCHC RDW Plt Count MPV Immature Gran % (Auto) Neut % (Auto) Lymph % (Auto) [place] % (Auto) Eos % (Auto) Baso % (Auto) Lymph # (Auto) [place] # (Auto) Eos # (Auto) Baso # (Auto) Abs Immat Gran (auto) Absolute Neuts (auto) Absolute Nucleated RBC Band Neutrophils % Nucleated RBC % Platelet Estimate Hypochromasia Ovalocytes Schistocytes Sodium Cancelled Potassium Cancelled Chloride Cancelled Carbon Dioxide Cancelled Anion Gap Cancelled BUN Cancelled Creatinine Cancelled Estim Creat Clear Calc Cancelled Estimated GFR Cancelled Glucose Cancelled POC Capillary Glucose 246 H Calcium Cancelled Magnesium Cancelled Total Bilirubin Cancelled AST Cancelled ALT Cancelled Alkaline Phosphatase Cancelled Total Protein Cancelled Albumin Cancelled Triglycerides Vancomycin Trough Blood Type Antibody Screen Crossmatch See Detail 12/17/24 12/18/24 12/18/24 18:24 00:32 02:19 WBC 12.5 H RBC 2.55 L Hgb 6.6 L* Hct 22.1 L MCV 86.7 MCH 25.9 L D MCHC 29.9 L RDW 20.8 H Plt Count 531 H MPV 10.8 H Immature Gran % (Auto) 1.4 H Neut % (Auto) 81.7 H Lymph % (Auto) 9.3 L [place] % (Auto) 4.8 Eos % (Auto) 2.6 Baso % (Auto) 0.2 Lymph # (Auto) 1.17 [place] # (Auto) 0.6 Eos # (Auto) 0.3 Baso # (Auto) 0.0 Abs Immat Gran (auto) 0.18 H Absolute Neuts (auto) 10.2 H Absolute Nucleated RBC 0.290 H Band Neutrophils % Not Reportable Nucleated RBC % 2.3 H Platelet Estimate Increased Hypochromasia 1+ Ovalocytes 1+ Schistocytes None seen Sodium 143 Potassium 3.6 Chloride 115 H Carbon Dioxide 26 Anion Gap 2 L BUN 23 H Creatinine 0.73 Estim Creat Clear Calc Not Reportable Estimated GFR > 60 Glucose 212 H POC Capillary Glucose 322 H 250 H Calcium 7.4 L Magnesium 2.5 H Total Bilirubin 0.3 AST 50 H ALT 41 H Alkaline Phosphatase 122 Total Protein 5.0 L Albumin 2.0 L Triglycerides 196 H Vancomycin Trough 10.7 Blood Type Antibody Screen Crossmatch 12/18/24 12/18/24 12/18/24 03:17 05:58 10:44 WBC RBC Hgb 9.2 L Hct 28.8 L MCV MCH MCHC RDW Plt Count MPV Immature Gran % (Auto) Neut % (Auto) Lymph % (Auto) [place] % (Auto) Eos % (Auto) Baso % (Auto) Lymph # (Auto) [place] # (Auto) Eos # (Auto) Baso # (Auto) Abs Immat Gran (auto) Absolute Neuts (auto) Absolute Nucleated RBC Band Neutrophils % Nucleated RBC % Platelet Estimate Hypochromasia Ovalocytes Schistocytes Sodium Potassium Chloride Carbon Dioxide Anion Gap BUN Creatinine Estim Creat Clear Calc Estimated GFR Glucose POC Capillary Glucose 210 H Calcium Magnesium Total Bilirubin AST ALT Alkaline Phosphatase Total Protein Albumin Triglycerides Vancomycin Trough Blood Type A Negative Antibody Screen Negative Crossmatch See Detail
--- NOTE | 2024-12-18 16:27 | WPDINFPN2 ---
Progress Note: A&P Assessment and Plan (1) Intra-abdominal abscess post-procedure: Code(s): T81.43XA - Infection following a procedure, organ and space surgical site, initial encounter; K65.1 - Peritoneal abscess Status: Acute Assessment and Plan: As below Plan Assessment and plan (1) Intra-abdominal abscess post-procedure: Code(s): T81.43XA - Infection following a procedure, organ and space surgical site, initial encounter; K65.1 - Peritoneal abscess Status: Acute Assessment and Plan: -Abscess secondary to ileocolic anastomotic leak -Manaagement as per surgical service (2) Ileocolic anastomotic leak: Code(s): K91.89 - Other postprocedural complications and disorders of digestive system Status: Acute Assessment and Plan: -Management as per surgical service (3) History of partial colectomy: Code(s): Z90.49 - Acquired absence of other specified parts of digestive tract Status: Resolved (4) Adenocarcinoma of colon: Code(s): C18.9 - Malignant neoplasm of colon, unspecified Status: Acute Assessment and Plan: -Management as per primary service (5) Cancer of right colon: Onset Date: ~10/2024 Code(s): C18.2 - Malignant neoplasm of ascending colon Status: Acute Assessment and Plan: -Management as per primary service (6) C. difficile diarrhea: Onset Date: ~04/01/24 Code(s): A04.72 - Enterocolitis due to Clostridium difficile, not specified as recurrent Status: Inactive Assessment and Plan: -Patient has history of C.difficile infection starting in March 2024 -Has new diarrhea as of 12/12/24 Plan: - Continue Zosyn plus fluconazole and intravenous vancomycin. Agree with surgery plan to give vancomycin enterically through ileostomy as no communication with colon. Would anticipate continuing this C diff treatment at treatment dose seen at least for another 3 weeks. Plan IV antibiotic therapy for upwards of another 14 days total. Will continue to monitor abdominal exam. Follow wounds/ wound VAC per. General surgery plans. -Management of ileocolonic anastomotic leak as per surgical service -Continue supportive measures -Discussed with Surgical Service today At the bedside. Patient was seen via video telehealth consultation with the assistance of staff. Chart, data, and patient independently reviewed. Patient was located at [facility] while I was located in my [place] office. Received verbal consent from patient. Subjective Date/time seen: 12/18/24 16:27 Interval history: She is much more alert and less agitated today. General surgery service at bedside. Changing her wounds. Exam Narrative: Much more alert today. Acknowledges me. Not agitated. Surgery service including attending at bedside. Midline incision is clean. mucousFistulous/ostomy sites are clean. Mild abdominal protuberance/ distension. No clear rebound. No rash. Objective Data Vital Signs Vital Signs: Vital Signs - 24 hr 12/17/24 18:00 12/17/24 20:00 12/17/24 20:00 Temperature Pulse Rate 112 H 110 H Respiratory Rate Blood Pressure Pulse Oximetry 96 Oxygen Delivery Nasal Cannula Oxygen Flow Rate 1 12/17/24 20:15 12/17/24 20:25 12/17/24 22:00 Temperature 37.2 C Pulse Rate 108 H 103 H Respiratory Rate 22 H Blood Pressure 141/69 H Pulse Oximetry 95 97 Oxygen Delivery Room Air Oxygen Flow Rate 12/17/24 23:34 12/18/24 00:00 12/18/24 00:00 Temperature 37.2 C Pulse Rate 107 H 106 H Respiratory Rate 20 Blood Pressure 131/66 Pulse Oximetry 96 95 Oxygen Delivery Nasal Cannula Oxygen Flow Rate 1 12/18/24 02:00 12/18/24 04:00 12/18/24 04:00 Temperature Pulse Rate 103 H 102 H Respiratory Rate Blood Pressure Pulse Oximetry 97 Oxygen Delivery Nasal Cannula Oxygen Flow Rate 1 12/18/24 04:23 12/18/24 05:27 12/18/24 05:43 Temperature 36.4 C 36.7 C 36.9 C Pulse Rate 104 H 102 H 101 H Respiratory Rate 20 20 20 Blood Pressure 128/76 119/71 118/64 Pulse Oximetry 96 97 95 Oxygen Delivery Oxygen Flow Rate 12/18/24 06:00 12/18/24 06:43 12/18/24 08:00 Temperature 36.7 C 36.8 C Pulse Rate 101 H 99 104 H Respiratory Rate 20 22 H Blood Pressure 126/72 113/68 Pulse Oximetry 96 96 Oxygen Delivery Oxygen Flow Rate 12/18/24 08:00 12/18/24 08:00 12/18/24 08:43 Temperature 36.8 C Pulse Rate 106 H 110 H Respiratory Rate 26 H Blood Pressure 154/75 H Pulse Oximetry 96 96 Oxygen Delivery Nasal Cannula Oxygen Flow Rate 1 12/18/24 09:49 12/18/24 12:00 12/18/24 12:00 Temperature Pulse Rate 106 H 108 H Respiratory Rate Blood Pressure Pulse Oximetry 96 Oxygen Delivery Nasal Cannula Oxygen Flow Rate 1 12/18/24 12:00 12/18/24 14:00 12/18/24 16:00 Temperature 37.2 C Pulse Rate 104 H 104 H Respiratory Rate 28 H Blood Pressure 133/52 L Pulse Oximetry 96 95 Oxygen Delivery Nasal Cannula Oxygen Flow Rate 1 12/18/24 16:00 Temperature Pulse Rate 97 Respiratory Rate Blood Pressure Pulse Oximetry Oxygen Delivery Oxygen Flow Rate Intake/Output Intake/Output: Intake & Output 12/15/24 12/16/24 12/17/24 12/18/24 23:59 23:59 23:59 23:59 Intake Total 1621.7 1502.5 1548.3 1885 Output Total 1505 1070 1362 1960 Balance 116.7 432.5 186.3 -75 Meds/Results Medications: Active Medications Generic Name Dose Route Start Last Admin Trade Name Freq PRN Reason Stop Dose Admin Acetaminophen 650 mg 12/18/24 15:40 Acetaminophen 325 Mg Tablet PO Q4H PRN Mild Pain (1-3) or Fever Hydrocodone Bitart/Acetaminophen 1 tab 12/18/24 15:40 Hydrocodone/Acetaminophen (*Crx) 5-325 Mg Tablet PO Q4H PRN Pain Rated 4-6 Hydrocodone Bitart/Acetaminophen 1 tab 12/18/24 15:40 Hydrocodone/Acetaminophen (*Crx) 10-325 Mg Tablet PO Q6H PRN Pain Rated 7-10 Dextrose 12.5 gm 12/14/24 10:29 Dextrose 50% 25 Gm/50 Ml Syringe IV PUSH PRN PRN Hypoglycemia Protocol Enoxaparin Sodium 40 mg 12/07/24 09:00 12/18/24 08:35 Enoxaparin 40 Mg/0.4 Ml Syringe SUB-Q 40 mg DAILY CEE Administration Glucose 15 gm 12/14/24 10:29 Glucose Oral Gel 15 Gm Of Glucse In 37.5 Gm Tube PO PRN PRN Hypoglycemia Protocol Hydromorphone HCl 1 mg 12/06/24 17:15 12/17/24 20:44 Hydromorphone Hcl Inj (*Crx) 1 Mg/Ml Syr IV PUSH 1 mg Q2H PRN Administration Breakthrough Pain Rated 7-10 or NPO Hydromorphone HCl 0.5 mg 12/06/24 17:15 12/16/24 23:39 Hydromorphone Hcl Inj (*Crx) 1 Mg/Ml Syr IV PUSH 0.5 mg Q2H PRN Administration Breakthrough Pain Rated 4-6 or NPO Dextrose 1,000 mls @ 100 mls/hr 12/14/24 10:29 Dextrose 5% 1,000 Ml IVPB PRN PRN Hypoglycemia Protocol Piperacillin Sod/Tazobactam 50 mls @ 100 mls/hr 12/17/24 14:30 12/18/24 11:44 Sod 3.375 gm/ Sodium Chloride IVPB 100 mls/hr Q6HR CEE Administration Vancomycin HCl 1,250 mg in 250 mls @ 166.667 mls/hr 12/18/24 03:00 12/18/24 14:54 Vancomycin 1,250 Mg/Ns 250 Ml IVPB 166 mls/hr Q12H CEE Administration Insulin Aspart 3 - 6 units 12/15/24 06:00 12/18/24 12:04 Insulin Aspart (*Bkc) 100 Units/Ml SUB-Q Not Given Q6HR CEE Protocol Naloxone HCl 0.1 mg 12/06/24 17:15 Naloxone Hcl 0.4 Mg/Ml Vial IV PUSH Q2M PRN Opiate Reversal Ondansetron HCl 4 mg 12/03/24 17:26 12/09/24 05:23 Ondansetron Inj 4 Mg/2 Ml Vial IV PUSH 4 mg Q4H PRN Administration Nausea And Vomiting Pantoprazole Sodium 40 mg 12/07/24 09:00 12/18/24 08:35 Pantoprazole Sodium Iv 40 Mg Vial IV PUSH 40 mg QAM CEE Administration Phenol 1 spray 12/07/24 10:05 Phenol/Sod Pheno Gary Salomon (*Bkc) MUCOUS MEM Q2H PRN Sore Throat Sodium Chloride 10 ml 12/07/24 14:00 12/18/24 11:44 Central Line Flush IV PUSH 10 ml Q8HR CEE Administration Sodium Chloride 10 ml 12/07/24 09:45 12/11/24 00:42 Central Line Flush IV PUSH 10 ml PRN PRN Administration with TPN bag changes Sodium Chloride 20 ml 12/07/24 09:45 12/11/24 05:39 Central Line Flush IV PUSH 20 ml PRN PRN Administration after blood draws Vancomycin HCl 125 mg 12/18/24 18:00 Vancomycin Oral 125 Mg/2.5 Ml Syrup FEED TUBE Q6HR CEE Radiology Results: ITS Impressions Renal Ultrasound 12/04/24 21:30 Impression: 1: Unremarkable renal ultrasound. No stones, masses or hydronephrosis. Pulmonary Perfusion Imaging 12/05/24 18:55 IMPRESSION: 1: Normal perfusion scan. Probable shallow lung volumes. Recommend correlation with chest x-ray.. Chest/Abdomen/Pelvis CT 12/10/24 10:51 IMPRESSION: 1. Small amount of likely residual free intraperineal gas and fluid post likely revision of an ileocolic anastomosis and placement of a surgical drain. No evident organized abscess or extraluminal contrast to suggest residual anastomotic leak. 2. Wall thickening along the sigmoid colon consistent with colitis infectious or inflammatory in etiology. Differential would also include residual reactive edema related to the prior anastomotic leak and recent surgery. 3. Volume loss in both lungs with atelectasis at the bilateral lung bases including complete collapse of the right middle lobe. Superimposed pneumonia not excludable but suspicion is low. 4. Chronic mild dilation the common bile duct without evident obstructing stone or mass, likely related to prior cholecystectomy but would correlate with liver function tests. CT Brain Angiography 12/13/24 11:34 IMPRESSION: 1. Normal aging brain. No acute intracranial process or abnormally enhancing brain lesions. 2. Unremarkable cerebral CT angiogram with no hemodynamic significant stenosis, thrombosis or aneurysm. Chest X-Ray 12/13/24 12:26 IMPRESSION: 1. Persistent bibasilar atelectasis and/or airspace disease. 2. No significant change from one week prior. Abdomen/Pelvis CT 12/13/24 12:45 IMPRESSION: 1. Status post right hemicolectomy with anastomotic leak at the right lower quadrant ileocolic anastomosis. 2. Moderate bibasilar atelectasis, right greater than left with mucous bony of right middle and lower lobar bronchi. Chest CTA 12/13/24 12:45 IMPRESSION: 1. No pulmonary embolus. Sensitivity is moderately decreased by motion artifact. 2. Small lung volumes with relative elevation of right hemidiaphragm. Moderate atelectasis in the inferior lungs 3. Ascites. Labs Labs: Laboratory Results - last 24 hr 12/13/24 12/17/24 12/17/24 15:23 04:56 16:27 WBC RBC Hgb Hct MCV MCH MCHC RDW Plt Count MPV Immature Gran % (Auto) Neut % (Auto) Lymph % (Auto) Addison % (Auto) Eos % (Auto) Baso % (Auto) Lymph # (Auto) Addison # (Auto) Eos # (Auto) Baso # (Auto) Abs Immat Gran (auto) Absolute Neuts (auto) Absolute Nucleated RBC Band Neutrophils % Nucleated RBC % Platelet Estimate Hypochromasia Ovalocytes Schistocytes Sodium Cancelled Potassium Cancelled Chloride Cancelled Carbon Dioxide Cancelled Anion Gap Cancelled BUN Cancelled Creatinine Cancelled Estim Creat Clear Calc Cancelled Estimated GFR Cancelled Glucose Cancelled POC Capillary Glucose 246 H Calcium Cancelled Magnesium Cancelled Total Bilirubin Cancelled AST Cancelled ALT Cancelled Alkaline Phosphatase Cancelled Total Protein Cancelled Albumin Cancelled Triglycerides Vancomycin Trough Blood Type Antibody Screen Crossmatch See Detail 12/17/24 12/18/24 12/18/24 18:24 00:32 02:19 WBC 12.5 H RBC 2.55 L Hgb 6.6 L* Hct 22.1 L MCV 86.7 MCH 25.9 L D MCHC 29.9 L RDW 20.8 H Plt Count 531 H MPV 10.8 H Immature Gran % (Auto) 1.4 H Neut % (Auto) 81.7 H Lymph % (Auto) 9.3 L Addison % (Auto) 4.8 Eos % (Auto) 2.6 Baso % (Auto) 0.2 Lymph # (Auto) 1.17 Addison # (Auto) 0.6 Eos # (Auto) 0.3 Baso # (Auto) 0.0 Abs Immat Gran (auto) 0.18 H Absolute Neuts (auto) 10.2 H Absolute Nucleated RBC 0.290 H Band Neutrophils % Not Reportable Nucleated RBC % 2.3 H Platelet Estimate Increased Hypochromasia 1+ Ovalocytes 1+ Schistocytes None seen Sodium 143 Potassium 3.6 Chloride 115 H Carbon Dioxide 26 Anion Gap 2 L BUN 23 H Creatinine 0.73 Estim Creat Clear Calc Not Reportable Estimated GFR > 60 Glucose 212 H POC Capillary Glucose 322 H 250 H Calcium 7.4 L Magnesium 2.5 H Total Bilirubin 0.3 AST 50 H ALT 41 H Alkaline Phosphatase 122 Total Protein 5.0 L Albumin 2.0 L Triglycerides 196 H Vancomycin Trough 10.7 Blood Type Antibody Screen Crossmatch 12/18/24 12/18/24 12/18/24 03:17 05:58 10:44 WBC RBC Hgb 9.2 L Hct 28.8 L MCV MCH MCHC RDW Plt Count MPV Immature Gran % (Auto) Neut % (Auto) Lymph % (Auto) Addison % (Auto) Eos % (Auto) Baso % (Auto) Lymph # (Auto) Addison # (Auto) Eos # (Auto) Baso # (Auto) Abs Immat Gran (auto) Absolute Neuts (auto) Absolute Nucleated RBC Band Neutrophils % Nucleated RBC % Platelet Estimate Hypochromasia Ovalocytes Schistocytes Sodium Potassium Chloride Carbon Dioxide Anion Gap BUN Creatinine Estim Creat Clear Calc Estimated GFR Glucose POC Capillary Glucose 210 H Calcium Magnesium Total Bilirubin AST ALT Alkaline Phosphatase Total Protein Albumin Triglycerides Vancomycin Trough Blood Type A Negative Antibody Screen Negative Crossmatch See Detail
[2024-12-18] MEDS: VANCOMYCIN ORAL 125 MG/2.5 ML SYRUP FEED TUBE (17:45)
--- NOTE | 2024-12-18 18:10 | PC.NURSE ---
attempted to give first dose of vanc through patients fistula. Inserted the provided catheter from wound care into the fistula, unable to get catheter to insert much further than the tip with multiple attempts. attatched medication to the catheter when it was at its deepest insertion and pushed medication through the catheter. Medication did not seem to stay in the fistula and fistula began to leak. Attempted to reposition catheter to push remaining medication through without success again. Medication seemed to flow right out of the fistula. Followed medication with 10cc of water per the orders which also flowed out of the fistula. Redressed fistula per wound care orders. Attempted to call wound care nurse to inform her of the issue but they are gone for the evening. Left voice mail asking for her to talk with me or the nurse that has this patient tomorrow.
[2024-12-19] VITALS (11 sets, daily range): BP systolic 121–141; BP diastolic 74–83; PULSE 89–105; RESP 18–24; TEMP 36.6–36.9; O2SAT 93–96
[2024-12-19] MEDS: PIPERACILLIN/TAZOBACTAM SOD 3.375 GM in SODIUM CHLORIDE 0.9% IV 50 ML 100 ML IVPB ×5 (00:42→23:59)
--- NOTE | 2024-12-19 01:11 | PC.NURSE ---
This RN attempted to give pt vancomycin through mucoid fistula stoma. Once the dressing was removed the stoma was revealed and no opening was visible. This RN called a 2nd RN bedside to assess stoma and confirmed there was no opening. Dressing reapplied to stoma and covered with a large Tegaderm. Provider called and notified of stoma opening no longer visible and vancomycin not able to be given. Provider ordered a one time order of vancomycin 125mg PO.
[2024-12-19] MEDS: VANCOMYCIN HCL 125 MG ORAL CAPSULE PO (01:22)
[2024-12-19] MEDS: HYDROmorphone HCL INJ (*CRX) 1 MG/ML SYR IV PUSH (01:22)
[2024-12-19 01:40] LABS: Hematocrit 27.6 % (37.0-47.0); Hemoglobin 8.8 g/dL (12.0-15.0); Mean Corpuscular HGB Conc 31.9 g/dl (32-36); Mean Corpuscular Hemoglobin 27.3 pg (26-34); Mean Corpuscular Volume 85.7 fl (80-100); Platelet Count Result 468 k/mm3 (150-375); Red Blood Count 3.22 M/mm3 (4.2-5.4); White Blood Count 12.0 K/mm3 (4.5-10.0)
[2024-12-19 01:54] LABS: Anion Gap 0 mmol/L (4-12); Blood Urea Nitrogen 19 mg/dL (7-17); Calcium 7.4 mg/dL (8.4-10.2); Carbon Dioxide 26 mmol/L (22-30); Chloride 113 mmol/L (98-107); Estimated Glomerular Filt Rate > 60; Glucose 157 mg/dL (65-110); Potassium 3.6 mmol/L (3.4-5.0); Sodium 139 mmol/L (137-145)
[2024-12-19] MEDS: VANCOMYCIN 1,250 MG/NS 250 ML 1,250 MG/250 ML BAG 166.66 MG IVPB ×2 (03:11→16:10)
[2024-12-19] MEDS: CENTRAL LINE FLUSH 10 ML IV PUSH ×3 (05:29→23:59)
--- NOTE | 2024-12-19 06:54 | ECG_ITS ---
Test Date: 2024-12-19 07:02:14 Measurements Intervals [place] Rate: 97 P: 42 CO: 129 QRS: -5 QRSD: 94 T: 28 QT: 327 QTc: 416 Interpretive Statements SINUS RHYTHM VOLTAGE CRITERIA FOR LVH BORDERLINE ECG Compared to ECG 12/05/2024 14:38:06 HEART RATE HAS DECREASED Electronically Signed On 12-19-2024 07:51:13 CDT by John Jason D.O.
[2024-12-19] MEDS: ENOXAPARIN 40 MG/0.4 ML SYRINGE SUB-Q (07:55)
[2024-12-19] MEDS: PANTOPRAZOLE SODIUM IV 40 MG VIAL IV PUSH (07:55)
[2024-12-19] MEDS: VANCOMYCIN ORAL 125 MG/2.5 ML SYRUP FEED TUBE ×3 (09:30→23:59)
--- NOTE | 2024-12-19 10:48 | P.PNGS_ITS ---
Progress Note: A&P Assessment and Plan (1) Ileocolic anastomotic leak: Code(s): K91.89 - Other postprocedural complications and disorders of digestive system Status: Acute Assessment and Plan: * Continues to slowly improving. Tolerating a solid diet and ileostomy is functioning well. WBC count overall trending down. * Continue wound VAC therapy to abdominal wound, change again tomorrow. * Continue daily iodoform packing dressing changes to RLQ wound where JUHI drain was removed. * Continue IV antibiotics, ID following * Continue PT/OT, increase activity as tolerated (2) Protein calorie malnutrition: Qualifiers: Protein-calorie malnutrition severity: severe Qualified Code(s): E43 - Unspecified severe protein-calorie malnutrition Code(s): E46 - Unspecified protein-calorie malnutrition Status: Acute Assessment and Plan: * Tolerating a regular diet. Continue to encourage PO intake and Ensure supplements. (3) C. difficile diarrhea: Onset Date: ~04/01/24 Code(s): A04.72 - Enterocolitis due to Clostridium difficile, not specified as recurrent Status: Suspected Assessment and Plan: * Cdiff infection in March 2024. 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 * Continue vancomycin through the mucous fistula Q6H Plan Discussed patient's case and plan of care with Dr. Burch. Subjective Subjective Date/Time Seen: 12/19/24 10:48 Post Op day: 6 (Re-exploration of recent laparotomy, Ileocolic resection with end ileostomy and mucous fistula creation, Placement of wound VAC) Patient reports: no new complaints, tolerating a regular diet (eating well, enjoying the solid diet) and afebrile Interval history: No acute issues overnight. No new complaints. Incisional pain is controlled, but still taking IV Dilaudid for pain. Will switch to oral analgesics. No nausea or vomiting. Review of Systems Review of Systems: All systems reviewed & are unremarkable except as noted in HPI and below Exam Const: General: comfortable and no acute distress GI: Inspection: incision (Wound VAC dressing dry and intact) and other (mildly distended) Other: Wound VAC dressing dry and intact. JUHI with scant cloudy serosanguineous drainage. Ileostomy functioning well with liquid brown output, stoma is pink and healthy Mucus fistula more pink today, appears viable RLQ wound has dressing dry and intact. Objective Data Vital Signs Vital Signs: Vital Signs - 24 hr 12/18/24 12:00 12/18/24 12:00 12/18/24 12:00 Temperature 98.9 F Pulse Rate 108 H 104 H Respiratory Rate 28 H Blood Pressure 133/52 L Pulse Oximetry 96 96 Oxygen Delivery Nasal Cannula Oxygen Flow Rate 1 12/18/24 14:00 12/18/24 16:00 12/18/24 16:00 Temperature Pulse Rate 104 H 97 Respiratory Rate Blood Pressure Pulse Oximetry 95 Oxygen Delivery Nasal Cannula Oxygen Flow Rate 1 12/18/24 16:00 12/18/24 18:00 12/18/24 20:00 Temperature 98.8 F Pulse Rate 103 H 94 Respiratory Rate 24 H Blood Pressure 133/75 Pulse Oximetry 97 94 Oxygen Delivery Nasal Cannula Oxygen Flow Rate 1 12/18/24 20:00 12/18/24 20:03 12/18/24 22:00 Temperature 99.2 F Pulse Rate 102 H 103 H 96 Respiratory Rate 20 Blood Pressure 137/74 Pulse Oximetry 94 Oxygen Delivery Oxygen Flow Rate 12/18/24 23:28 12/19/24 00:00 12/19/24 00:00 Temperature 99.0 F Pulse Rate 103 H 93 Respiratory Rate 18 Blood Pressure 135/68 Pulse Oximetry 93 94 Oxygen Delivery Room Air Oxygen Flow Rate 12/19/24 02:00 12/19/24 04:00 12/19/24 04:00 Temperature Pulse Rate 89 89 Respiratory Rate Blood Pressure Pulse Oximetry 94 Oxygen Delivery Room Air Oxygen Flow Rate 12/19/24 04:47 12/19/24 06:00 12/19/24 08:00 Temperature 98.5 F Pulse Rate 96 93 Respiratory Rate 18 Blood Pressure 128/80 Pulse Oximetry 93 96 Oxygen Delivery Room Air Oxygen Flow Rate 12/19/24 08:00 12/19/24 08:00 12/19/24 10:00 Temperature 98.5 F Pulse Rate 97 96 94 Respiratory Rate 24 H Blood Pressure 128/74 Pulse Oximetry 96 Oxygen Delivery Oxygen Flow Rate Intake/Output Intake/Output: Intake & Output 12/16/24 12/17/24 12/18/24 12/19/24 23:59 23:59 23:59 23:59 Intake Total 1502.5 1548.3 2435 650 Output Total 1070 1362 3040 1000 Balance 432.5 186.3 -605 -350 Meds/Results Medications: Active Medications Generic Name Dose Route Start Last Admin Trade Name Freq PRN Reason Stop Dose Admin Acetaminophen 650 mg 12/18/24 15:40 Acetaminophen 325 Mg Tablet PO Q4H PRN Mild Pain (1-3) or Fever Hydrocodone Bitart/Acetaminophen 1 tab 12/18/24 15:40 Hydrocodone/Acetaminophen (*Crx) 5-325 Mg Tablet PO Q4H PRN Pain Rated 4-6 Hydrocodone Bitart/Acetaminophen 1 tab 12/18/24 15:40 Hydrocodone/Acetaminophen (*Crx) 10-325 Mg Tablet PO Q6H PRN Pain Rated 7-10 Dextrose 12.5 gm 12/14/24 10:29 Dextrose 50% 25 Gm/50 Ml Syringe IV PUSH PRN PRN Hypoglycemia Protocol Enoxaparin Sodium 40 mg 12/07/24 09:00 12/19/24 07:55 Enoxaparin 40 Mg/0.4 Ml Syringe SUB-Q 40 mg DAILY CEE Administration Glucose 15 gm 12/14/24 10:29 Glucose Oral Gel 15 Gm Of Glucse In 37.5 Gm Tube PO PRN PRN Hypoglycemia Protocol Hydromorphone HCl 1 mg 12/06/24 17:15 12/19/24 01:22 Hydromorphone Hcl Inj (*Crx) 1 Mg/Ml Syr IV PUSH 1 mg Q2H PRN Administration Breakthrough Pain Rated 7-10 or NPO Hydromorphone HCl 0.5 mg 12/06/24 17:15 12/16/24 23:39 Hydromorphone Hcl Inj (*Crx) 1 Mg/Ml Syr IV PUSH 0.5 mg Q2H PRN Administration Breakthrough Pain Rated 4-6 or NPO Dextrose 1,000 mls @ 100 mls/hr 12/14/24 10:29 Dextrose 5% 1,000 Ml IVPB PRN PRN Hypoglycemia Protocol Piperacillin Sod/Tazobactam 50 mls @ 100 mls/hr 12/17/24 14:30 12/19/24 05:28 Sod 3.375 gm/ Sodium Chloride IVPB 100 mls/hr Q6HR CEE Administration Vancomycin HCl 1,250 mg in 250 mls @ 166.667 mls/hr 12/18/24 03:00 12/19/24 03:11 Vancomycin 1,250 Mg/Ns 250 Ml IVPB 166.66 mls/hr Q12H CEE Administration Insulin Aspart 3 - 6 units 12/15/24 06:00 12/19/24 06:16 Insulin Aspart (*Bkc) 100 Units/Ml SUB-Q Not Given Q6HR CEE Protocol Naloxone HCl 0.1 mg 12/06/24 17:15 Naloxone Hcl 0.4 Mg/Ml Vial IV PUSH Q2M PRN Opiate Reversal Ondansetron HCl 4 mg 12/03/24 17:26 12/09/24 05:23 Ondansetron Inj 4 Mg/2 Ml Vial IV PUSH 4 mg Q4H PRN Administration Nausea And Vomiting Pantoprazole Sodium 40 mg 12/07/24 09:00 12/19/24 07:55 Pantoprazole Sodium Iv 40 Mg Vial IV PUSH 40 mg QAM CEE Administration Phenol 1 spray 12/07/24 10:05 Phenol/Sod Pheno [place] Salomon (*Bkc) MUCOUS MEM Q2H PRN Sore Throat Sodium Chloride 10 ml 12/07/24 14:00 12/19/24 05:29 Central Line Flush IV PUSH 10 ml Q8HR CEE Administration Sodium Chloride 10 ml 12/07/24 09:45 12/11/24 00:42 Central Line Flush IV PUSH 10 ml PRN PRN Administration with TPN bag changes Sodium Chloride 20 ml 12/07/24 09:45 12/11/24 05:39 Central Line Flush IV PUSH 20 ml PRN PRN Administration after blood draws Vancomycin HCl 125 mg 12/18/24 18:00 12/19/24 09:30 Vancomycin Oral 125 Mg/2.5 Ml Syrup FEED TUBE 125 mg Q6HR CEE Administration Radiology Results: ITS Impressions Renal Ultrasound 12/04/24 21:30 Impression: 1: Unremarkable renal ultrasound. No stones, masses or hydronephrosis. Pulmonary Perfusion Imaging 12/05/24 18:55 IMPRESSION: 1: Normal perfusion scan. Probable shallow lung volumes. Recommend correlation with chest x-ray.. Chest/Abdomen/Pelvis CT 12/10/24 10:51 IMPRESSION: 1. Small amount of likely residual free intraperineal gas and fluid post likely revision of an ileocolic anastomosis and placement of a surgical drain. No evident organized abscess or extraluminal contrast to suggest residual anastomotic leak. 2. Wall thickening along the sigmoid colon consistent with colitis infectious or inflammatory in etiology. Differential would also include residual reactive edema related to the prior anastomotic leak and recent surgery. 3. Volume loss in both lungs with atelectasis at the bilateral lung bases including complete collapse of the right middle lobe. Superimposed pneumonia not excludable but suspicion is low. 4. Chronic mild dilation the common bile duct without evident obstructing stone or mass, likely related to prior cholecystectomy but would correlate with liver function tests. CT Brain Angiography 12/13/24 11:34 IMPRESSION: 1. Normal aging brain. No acute intracranial process or abnormally enhancing brain lesions. 2. Unremarkable cerebral CT angiogram with no hemodynamic significant stenosis, thrombosis or aneurysm. Chest X-Ray 12/13/24 12:26 IMPRESSION: 1. Persistent bibasilar atelectasis and/or airspace disease. 2. No significant change from one week prior. Abdomen/Pelvis CT 12/13/24 12:45 IMPRESSION: 1. Status post right hemicolectomy with anastomotic leak at the right lower quadrant ileocolic anastomosis. 2. Moderate bibasilar atelectasis, right greater than left with mucous bony of right middle and lower lobar bronchi. Chest CTA 12/13/24 12:45 IMPRESSION: 1. No pulmonary embolus. Sensitivity is moderately decreased by motion artifact. 2. Small lung volumes with relative elevation of right hemidiaphragm. Moderate atelectasis in the inferior lungs 3. Ascites. Labs Labs: Laboratory Results - last 24 hr 12/18/24 12/18/24 12/18/24 10:44 11:48 18:33 WBC RBC Hgb 9.2 L Hct 28.8 L MCV MCH MCHC RDW Plt Count MPV Sodium Potassium Chloride Carbon Dioxide Anion Gap BUN Creatinine Estim Creat Clear Calc Estimated GFR Glucose POC Capillary Glucose 229 H 165 H Calcium Vancomycin Trough 12/18/24 12/19/24 12/19/24 23:41 01:31 06:06 WBC 12.0 H RBC 3.22 L Hgb 8.8 L Hct 27.6 L MCV 85.7 MCH 27.3 D MCHC 31.9 L RDW 19.2 H Plt Count 468 H MPV 10.3 Sodium 139 Potassium 3.6 Chloride 113 H Carbon Dioxide 26 Anion Gap 0 L BUN 19 H Creatinine 0.73 Estim Creat Clear Calc Not Reportable Estimated GFR > 60 Glucose 157 H POC Capillary Glucose 157 H 130 H Calcium 7.4 L Vancomycin Trough 17.0
[2024-12-19] MEDS: FLUCONAZOLE 400 MG/NACL 200 ML 400 MG/200 ML BAG 100 MG IVPB (14:17)
--- NOTE | 2024-12-19 17:45 | PC.NURSE ---
report called to Shireen at [phone]
--- NOTE | 2024-12-19 18:25 | PC.NURSE ---
This patient, Rosanna Johns, was received from [facility] on 12/19/24 at 1825. Patient/family oriented to unit policies and routines.
[2024-12-19] MEDS: INSULIN ASPART (*BKC) 100 UNITS/ML SUB-Q (19:03)
--- NOTE | 2024-12-19 19:19 | WPDINFPN2 ---
Progress Note: A&P Assessment and Plan (1) Intra-abdominal abscess post-procedure: Code(s): T81.43XA - Infection following a procedure, organ and space surgical site, initial encounter; K65.1 - Peritoneal abscess Status: Acute Assessment and Plan: As below Plan Assessment and plan (1) Intra-abdominal abscess post-procedure: Code(s): T81.43XA - Infection following a procedure, organ and space surgical site, initial encounter; K65.1 - Peritoneal abscess Status: Acute Assessment and Plan: -Abscess secondary to ileocolic anastomotic leak -Manaagement as per surgical service (2) Ileocolic anastomotic leak: Code(s): K91.89 - Other postprocedural complications and disorders of digestive system Status: Acute Assessment and Plan: -Management as per surgical service (3) History of partial colectomy: Code(s): Z90.49 - Acquired absence of other specified parts of digestive tract Status: Resolved (4) Adenocarcinoma of colon: Code(s): C18.9 - Malignant neoplasm of colon, unspecified Status: Acute Assessment and Plan: -Management as per primary service (5) Cancer of right colon: Onset Date: ~10/2024 Code(s): C18.2 - Malignant neoplasm of ascending colon Status: Acute Assessment and Plan: -Management as per primary service (6) C. difficile diarrhea: Onset Date: ~04/01/24 Code(s): A04.72 - Enterocolitis due to Clostridium difficile, not specified as recurrent Status: Inactive Assessment and Plan: -Patient has history of C.difficile infection starting in March 2024 -Has new diarrhea as of 12/12/24 Plan: - Continue Zosyn plus fluconazole and intravenous vancomycin. Follow JUHI cx. Continue trial of enteric vanc via ostomy. Plan for C diff treatment at treatment dose seen at least for another 3 weeks. Plan IV antibiotic therapy for upwards of another 14 days total. EOT approx Will continue to monitor abdominal exam. Follow wounds/ wound VAC per. General surgery plans. -Management of ileocolonic anastomotic leak as per surgical service -Continue supportive measures -Discussed with Surgical Service today At the bedside. Patient was seen via video telehealth consultation with the assistance of staff. Chart, data, and patient independently reviewed. Patient was located at [facility] while I was located in my [place] office. Received verbal consent from patient. Subjective Date/time seen: 12/19/24 19:19 Interval history: no fever. about the same today; overall improved throughout the week. Objective Data Vital Signs Vital Signs: Vital Signs - 24 hr 12/18/24 20:00 12/18/24 20:00 12/18/24 20:03 Temperature 37.3 C Pulse Rate 102 H 103 H Respiratory Rate 20 Blood Pressure 137/74 Pulse Oximetry 94 94 Oxygen Delivery Nasal Cannula Oxygen Flow Rate 1 12/18/24 22:00 12/18/24 23:28 12/19/24 00:00 Temperature 37.2 C Pulse Rate 96 103 H Respiratory Rate 18 Blood Pressure 135/68 Pulse Oximetry 93 94 Oxygen Delivery Room Air Oxygen Flow Rate 12/19/24 00:00 12/19/24 02:00 12/19/24 04:00 Temperature Pulse Rate 93 89 Respiratory Rate Blood Pressure Pulse Oximetry 94 Oxygen Delivery Room Air Oxygen Flow Rate 12/19/24 04:00 12/19/24 04:47 12/19/24 06:00 Temperature 36.9 C Pulse Rate 89 96 93 Respiratory Rate 18 Blood Pressure 128/80 Pulse Oximetry 93 Oxygen Delivery Oxygen Flow Rate 12/19/24 08:00 12/19/24 08:00 12/19/24 08:00 Temperature 36.9 C Pulse Rate 97 96 Respiratory Rate 24 H Blood Pressure 128/74 Pulse Oximetry 96 96 Oxygen Delivery Room Air Oxygen Flow Rate 12/19/24 10:00 12/19/24 12:00 12/19/24 12:00 Temperature 36.6 C Pulse Rate 94 100 104 H Respiratory Rate 22 H Blood Pressure 141/78 H Pulse Oximetry 95 Oxygen Delivery Oxygen Flow Rate 12/19/24 16:00 Temperature Pulse Rate 105 H Respiratory Rate Blood Pressure Pulse Oximetry Oxygen Delivery Oxygen Flow Rate Intake/Output Intake/Output: Intake & Output 12/16/24 12/17/24 12/18/24 12/19/24 23:59 23:59 23:59 23:59 Intake Total 1502.5 1548.3 2435 1000 Output Total 1070 1362 3040 1000 Balance 432.5 186.3 -605 0 Meds/Results Medications: Active Medications Generic Name Dose Route Start Last Admin Trade Name Freq PRN Reason Stop Dose Admin Acetaminophen 650 mg 12/18/24 15:40 Acetaminophen 325 Mg Tablet PO Q4H PRN Mild Pain (1-3) or Fever Hydrocodone Bitart/Acetaminophen 1 tab 12/18/24 15:40 Hydrocodone/Acetaminophen (*Crx) 5-325 Mg Tablet PO Q4H PRN Pain Rated 4-6 Hydrocodone Bitart/Acetaminophen 1 tab 12/18/24 15:40 Hydrocodone/Acetaminophen (*Crx) 10-325 Mg Tablet PO Q6H PRN Pain Rated 7-10 Dextrose 12.5 gm 12/14/24 10:29 Dextrose 50% 25 Gm/50 Ml Syringe IV PUSH PRN PRN Hypoglycemia Protocol Enoxaparin Sodium 40 mg 12/07/24 09:00 12/19/24 07:55 Enoxaparin 40 Mg/0.4 Ml Syringe SUB-Q 40 mg DAILY CEE Administration Glucose 15 gm 12/14/24 10: Glucose Oral Gel 15 Gm Of Glucse In 37.5 Gm Tube PO PRN PRN Hypoglycemia Protocol Dextrose 1,000 mls @ 100 mls/hr 12/14/24 10:29 Dextrose 5% 1,000 Ml IVPB PRN PRN Hypoglycemia Protocol Piperacillin Sod/Tazobactam 50 mls @ 100 mls/hr 12/17/24 14:30 12/19/24 19:00 Sod 3.375 gm/ Sodium Chloride IVPB 100 mls/hr Q6HR CEE Administration Vancomycin HCl 1,250 mg in 250 mls @ 166.667 mls/hr 12/18/24 03:00 12/19/24 16:10 Vancomycin 1,250 Mg/Ns 250 Ml IVPB 166.66 mls/hr Q12H CEE Administration Fluconazole 400 mg in 200 mls @ 100 mls/hr 12/19/24 13:30 12/19/24 14:17 Diflucan 400 Mg/Nacl 200 Ml IVPB 100 mls/hr DAILY CEE Administration Insulin Aspart 3 - 6 units 12/15/24 06:00 12/19/24 19:03 Insulin Aspart (*Bkc) 100 Units/Ml SUB-Q 3 units Q6HR CEE Administration Protocol Naloxone HCl 0.1 mg 12/06/24 17:15 Naloxone Hcl 0.4 Mg/Ml Vial IV PUSH Q2M PRN Opiate Reversal Ondansetron HCl 4 mg 12/03/24 17:26 12/09/24 05:23 Ondansetron Inj 4 Mg/2 Ml Vial IV PUSH 4 mg Q4H PRN Administration Nausea And Vomiting Pantoprazole Sodium 40 mg 12/07/24 09:00 12/19/24 07:55 Pantoprazole Sodium Iv 40 Mg Vial IV PUSH 40 mg QAM CEE Administration Phenol 1 spray 12/07/24 10:05 Phenol/Sod Pheno [place] Salomon (*Bkc) MUCOUS MEM Q2H PRN Sore Throat Sodium Chloride 10 ml 12/07/24 14:00 12/19/24 13:27 Central Line Flush IV PUSH 10 ml Q8HR CEE Administration Sodium Chloride 10 ml 12/07/24 09:45 12/11/24 00:42 Central Line Flush IV PUSH 10 ml PRN PRN Administration with TPN bag changes Sodium Chloride 20 ml 12/07/24 09:45 12/11/24 05:39 Central Line Flush IV PUSH 20 ml PRN PRN Administration after blood draws Vancomycin HCl 125 mg 12/18/24 18:00 12/19/24 17:13 Vancomycin Oral 125 Mg/2.5 Ml Syrup FEED TUBE 125 mg Q6HR CEE Administration Radiology Results: ITS Impressions Renal Ultrasound 12/04/24 21:30 Impression: 1: Unremarkable renal ultrasound. No stones, masses or hydronephrosis. Pulmonary Perfusion Imaging 12/05/24 18:55 IMPRESSION: 1: Normal perfusion scan. Probable shallow lung volumes. Recommend correlation with chest x-ray.. Chest/Abdomen/Pelvis CT 12/10/24 10:51 IMPRESSION: 1. Small amount of likely residual free intraperineal gas and fluid post likely revision of an ileocolic anastomosis and placement of a surgical drain. No evident organized abscess or extraluminal contrast to suggest residual anastomotic leak. 2. Wall thickening along the sigmoid colon consistent with colitis infectious or inflammatory in etiology. Differential would also include residual reactive edema related to the prior anastomotic leak and recent surgery. 3. Volume loss in both lungs with atelectasis at the bilateral lung bases including complete collapse of the right middle lobe. Superimposed pneumonia not excludable but suspicion is low. 4. Chronic mild dilation the common bile duct without evident obstructing stone or mass, likely related to prior cholecystectomy but would correlate with liver function tests. CT Brain Angiography 12/13/24 11:34 IMPRESSION: 1. Normal aging brain. No acute intracranial process or abnormally enhancing brain lesions. 2. Unremarkable cerebral CT angiogram with no hemodynamic significant stenosis, thrombosis or aneurysm. Chest X-Ray 12/13/24 12:26 IMPRESSION: 1. Persistent bibasilar atelectasis and/or airspace disease. 2. No significant change from one week prior. Abdomen/Pelvis CT 12/13/24 12:45 IMPRESSION: 1. Status post right hemicolectomy with anastomotic leak at the right lower quadrant ileocolic anastomosis. 2. Moderate bibasilar atelectasis, right greater than left with mucous bony of right middle and lower lobar bronchi. Chest CTA 12/13/24 12:45 IMPRESSION: 1. No pulmonary embolus. Sensitivity is moderately decreased by motion artifact. 2. Small lung volumes with relative elevation of right hemidiaphragm. Moderate atelectasis in the inferior lungs 3. Ascites. Labs Labs: Laboratory Results - last 24 hr 12/18/24 12/19/24 12/19/24 23:41 01:31 06:06 WBC 12.0 H RBC 3.22 L Hgb 8.8 L Hct 27.6 L MCV 85.7 MCH 27.3 D MCHC 31.9 L RDW 19.2 H Plt Count 468 H MPV 10.3 Sodium 139 Potassium 3.6 Chloride 113 H Carbon Dioxide 26 Anion Gap 0 L BUN 19 H Creatinine 0.73 Estim Creat Clear Calc Not Reportable Estimated GFR > 60 Glucose 157 H POC Capillary Glucose 157 H 130 H Calcium 7.4 L Vancomycin Trough 17.0 12/19/24 12/19/24 11:39 18:55 WBC RBC Hgb Hct MCV MCH MCHC RDW Plt Count MPV Sodium Potassium Chloride Carbon Dioxide Anion Gap BUN Creatinine Estim Creat Clear Calc Estimated GFR Glucose POC Capillary Glucose 136 H 220 H Calcium Vancomycin Trough
--- NOTE | 2024-12-19 19:46 | P.PNIM_ITS ---
Progress Note: A&P Assessment and Plan (1) History of partial colectomy: Code(s): Z90.49 - Acquired absence of other specified parts of digestive tract Status: Resolved (2) Ileocolic anastomotic leak: Code(s): K91.89 - Other postprocedural complications and disorders of digestive system Status: Acute (3) Acute blood loss anemia: Code(s): D62 - Acute posthemorrhagic anemia Status: Acute (4) Acute hypoxemic respiratory failure: Code(s): J96.01 - Acute respiratory failure with hypoxia Status: Acute Plan 64 y/o F with PMH of cancer the right colon S/P right colectomy, thrombosis of the mesenteric vein, WILL, diverticulitis, rhabdomyolysis (2021), hyperlipidemia and hypertension presented here on 12/03 with difficulty urinating. Previously underwent a hand assisted laparoscopic right colectomy with extensive adhesiolysis, mobilization of hepatic flexure by Dr. May on 11/27/24. Discharge on postop day 2 as she was doing well. At home she has had worsening abdominal pain, constipation. On readmission she has had a lengthy hospital course, on 12/06 undergoing a exploratory laparotomy with ileocolic resection with [id number] ileo colic anastomosis drainage of intra-abdominal abscess with placement of wound VAC. Due to bile in JUHI drains she had a repeat abdomen pelvis CT with water-soluble oral contrast demonstrating right hemicolectomy with anastomotic leak. On 12/13/2024 she underwent re-exploration with ileocolic resection with end ileostomy and mucous fistula creation and placement of wound VAC within subcutaneous space measuring 12 cm x 3 cm. General surgery managing wounds, wound VAC, JUHI drain. Currently on TPN. Wound care per surgery and unit protocol and wound care. Malnutrition: Related to surgery, continue TPN. NG tube in place which is clamped. Started on clear liquid per General surgery. This has been advanced to full liquid now. NG has been removed 12/17/2024 Sepsis: Monitor leukocytosis, tachypnea, tachycardia. Overall trend of leukocytosis has peaked at 19.9 on 12/08/2024, currently improving to 12. Continue to monitor along with procalcitonin. Infectious Disease consulted, continue zosyn, fluconazole, vancomycin p.o. 12/04/2024 blood culture x2 negative, final. vancomycin oral needs to transition to administration through mucous fistula. C diff colitis: Appreciate ID recommendations, currently on p.o. vancomycin Post hemorrhagic anemia: Monitor daily hemoglobin, stable. Restart Lovenox 40 mg subQ q.day for DVT prophylaxis when okay by surgery. Hypocalcemia: After correction for hypoalbuminemia, 8.1. Continue to monitor. Elevated blood glucose readings: HbA1c 6.0%. Accu-Cheks q.6 hours with hypoglycemia protocol and low-dose insulin sliding scale. Acute hypoxic respiratory failure: Patient weaned to room air on 12/15/2024. Due to atelectasis, CTA chest did not demonstrate pneumonia/PE. Continue incentive spirometer and EzPAP q.i.d.. Mobilize as soon as possible. Acute kidney injury and urinary retention: Could be due to hypovolemia, anemia, urinary retention, sepsis, contrast exposure. DARRYL has resolved. Nephrology signed off. Limon catheter remains due to surgery and immobility. Hypertension: [employer] antihypertensives on hold. Monitor blood pressure. Anemia hemoglobin down to 6.6 12/18/2024 1 unit PRBC. Now stable at 8.8. DVT prophylaxis: SCDs. Lovenox 40 mg daily currently on hold due to anemia Nutrition: NPO. TPN. Prophylaxis: Protonix 40 mg IV q.a.m. for ulcer prophylaxis. Right upper extremity PICC line Deconditioning, PT/OT as appropriate per General surgery team. EzPAP, incentive spirometer. Patient wishes to be full code. Prior to admission she lives at home and was independent. Subjective Date/time seen: 12/19/24 19:46 Review of Systems Review of Systems: All systems reviewed & are unremarkable except as noted in HPI and below (Subjective) Exam Narrative: GENERAL: Alert and oriented x3, not in acute distress HEAD: Normal with no signs of head trauma. EYES: EOMI, conjunctiva normal ENT: Hearing grossly intact LUNGS: Nonlabored breathing. No adventitious sounds HEART: [Regular rate and rhythm] ABD: [Soft], mildly distended, mild tenderness, surgical incision with wound VAC, clean dry and intact EXT: Normal range of motion SKIN: [No rashes or lesions.] NEURO: [Alert and oriented x 3. No gross focal sensory or strength deficits.] PSYCH: Normal affect Const: General: comfortable and no acute distress Other: A&O x3 HENMT: Face/Nose/Sinus: Normal nares present Mouth: Yes moist mucous membranes and Yes dry mucous membranes Eyes: General: appearance normal, both eyes and all related structures Sclera: sclerae normal Pupils: Equal, round and reactive pupils present EOM: EOMs intact bilaterally Neck: Neck: supple Resp: Effort & Inspection: normal respiratory effort Auscultation: clear to auscultation bilaterally and crackles Other: Slowly decreased breath sounds at bilateral bases, no crackles/wheezing/rhonchi Cardio: Rate: regular rate and tachycardic Rhythm: regular rhythm Heart sounds: no gallops and no murmurs Other: S1-S2 present without murmur, rub, ectopy GI: Inspection: non-distended Other: Right-sided mucous fistula with serosanguineous drainage, end ileostomy with light brown serous drainage, JUHI drain with serosanguineous drainage, wound VAC intact. Urinary Catheter: Urinary Catheter: patent and draining Skin: General skin exam: normal color and no rashes or lesions noted Other: Postsurgical incision to abdomen is well approximated, sutures in place, no signs of infection Neuro: Cranial nerves: Yes Equal, round and reactive pupils present Speech: normal speech Motor exam (neuro): 5/5 motor strength present throughout Sensory Exam: normal sensation Other: Generalized weakness Extrem: General: normal to inspection and edema Other: Trace edema bilateral lower extremities Psych: Mental Status: mental status grossly normal Affect: normal affect Other: Good insight and judgment, pleasant Objective Data Vital Signs Vital Signs: Vital Signs - 24 hr 12/18/24 20:00 12/18/24 20:00 12/18/24 20:03 Temperature 99.2 F Pulse Rate 102 H 103 H Respiratory Rate 20 Blood Pressure 137/74 Pulse Oximetry 94 94 Oxygen Delivery Nasal Cannula Oxygen Flow Rate 1 12/18/24 22:00 12/18/24 23:28 12/19/24 00:00 Temperature 99.0 F Pulse Rate 96 103 H Respiratory Rate 18 Blood Pressure 135/68 Pulse Oximetry 93 94 Oxygen Delivery Room Air Oxygen Flow Rate 12/19/24 00:00 12/19/24 02:00 12/19/24 04:00 Temperature Pulse Rate 93 89 Respiratory Rate Blood Pressure Pulse Oximetry 94 Oxygen Delivery Room Air Oxygen Flow Rate 12/19/24 04:00 12/19/24 04:47 12/19/24 06:00 Temperature 98.5 F Pulse Rate 89 96 93 Respiratory Rate 18 Blood Pressure 128/80 Pulse Oximetry 93 Oxygen Delivery Oxygen Flow Rate 12/19/24 08:00 12/19/24 08:00 12/19/24 08:00 Temperature 98.5 F Pulse Rate 97 96 Respiratory Rate 24 H Blood Pressure 128/74 Pulse Oximetry 96 96 Oxygen Delivery Room Air Oxygen Flow Rate 12/19/24 10:00 12/19/24 12:00 12/19/24 12:00 Temperature 98 F Pulse Rate 94 100 104 H Respiratory Rate 22 H Blood Pressure 141/78 H Pulse Oximetry 95 Oxygen Delivery Oxygen Flow Rate 12/19/24 16:00 Temperature Pulse Rate 105 H Respiratory Rate Blood Pressure Pulse Oximetry Oxygen Delivery Oxygen Flow Rate Intake/Output Intake/Output: Intake & Output 12/16/24 12/17/24 12/18/24 12/19/24 23:59 23:59 23:59 23:59 Intake Total 1502.5 1548.3 2435 1000 Output Total 1070 1362 3040 1000 Balance 432.5 186.3 -605 0 Meds/Results Medications: Active Medications Generic Name Dose Route Start Last Admin Trade Name Freq PRN Reason Stop Dose Admin Acetaminophen 650 mg 12/18/24 15:40 Acetaminophen 325 Mg Tablet PO Q4H PRN Mild Pain (1-3) or Fever Hydrocodone Bitart/Acetaminophen 1 tab 12/18/24 15:40 Hydrocodone/Acetaminophen (*Crx) 5-325 Mg Tablet PO Q4H PRN Pain Rated 4-6 Hydrocodone Bitart/Acetaminophen 1 tab 12/18/24 15:40 Hydrocodone/Acetaminophen (*Crx) 10-325 Mg Tablet PO Q6H PRN Pain Rated 7-10 Dextrose 12.5 gm 12/14/24 10:29 Dextrose 50% 25 Gm/50 Ml Syringe IV PUSH PRN PRN Hypoglycemia Protocol Enoxaparin Sodium 40 mg 12/07/24 09:00 12/19/24 07:55 Enoxaparin 40 Mg/0.4 Ml Syringe SUB-Q 40 mg DAILY CEE Administration Glucose 15 gm 12/14/24 10:29 Glucose Oral Gel 15 Gm Of Glucse In 37.5 Gm Tube PO PRN PRN Hypoglycemia Protocol Dextrose 1,000 mls @ 100 mls/hr 12/14/24 10:29 Dextrose 5% 1,000 Ml IVPB PRN PRN Hypoglycemia Protocol Piperacillin Sod/Tazobactam 50 mls @ 100 mls/hr 12/17/24 14:30 12/19/24 19:00 Sod 3.375 gm/ Sodium Chloride IVPB 100 mls/hr Q6HR CEE Administration Vancomycin HCl 1,250 mg in 250 mls @ 166.667 mls/hr 12/18/24 03:00 12/19/24 16:10 Vancomycin 1,250 Mg/Ns 250 Ml IVPB 166.66 mls/hr Q12H CEE Administration Fluconazole 400 mg in 200 mls @ 100 mls/hr 12/19/24 13:30 12/19/24 14:17 Diflucan 400 Mg/Nacl 200 Ml IVPB 100 mls/hr DAILY CEE Administration Insulin Aspart 3 - 6 units 12/15/24 06:00 12/19/24 19:03 Insulin Aspart (*Bkc) 100 Units/Ml SUB-Q 3 units Q6HR CEE Administration Protocol Naloxone HCl 0.1 mg 12/06/24 17:15 Naloxone Hcl 0.4 Mg/Ml Vial IV PUSH Q2M PRN Opiate Reversal Ondansetron HCl 4 mg 12/03/24 17:26 12/09/24 05:23 Ondansetron Inj 4 Mg/2 Ml Vial IV PUSH 4 mg Q4H PRN Administration Nausea And Vomiting Pantoprazole Sodium 40 mg 12/07/24 09:00 12/19/24 07:55 Pantoprazole Sodium Iv 40 Mg Vial IV PUSH 40 mg QAM CEE Administration Phenol 1 spray 12/07/24 10:05 Phenol/Sod Pheno [place] Salomon (*Bkc) MUCOUS MEM Q2H PRN Sore Throat Sodium Chloride 10 ml 12/07/24 14:00 12/19/24 13:27 Central Line Flush IV PUSH 10 ml Q8HR CEE Administration Sodium Chloride 10 ml 12/07/24 09:45 12/11/24 00:42 Central Line Flush IV PUSH 10 ml PRN PRN Administration with TPN bag changes Sodium Chloride 20 ml 12/07/24 09:45 12/11/24 05:39 Central Line Flush IV PUSH 20 ml PRN PRN Administration after blood draws Vancomycin HCl 125 mg 12/18/24 18:00 12/19/24 17:13 Vancomycin Oral 125 Mg/2.5 Ml Syrup FEED TUBE 125 mg Q6HR CEE Administration Radiology Results: ITS Impressions Renal Ultrasound 12/04/24 21:30 Impression: 1: Unremarkable renal ultrasound. No stones, masses or hydronephrosis. Pulmonary Perfusion Imaging 12/05/24 18:55 IMPRESSION: 1: Normal perfusion scan. Probable shallow lung volumes. Recommend correlation with chest x-ray.. Chest/Abdomen/Pelvis CT 12/10/24 10:51 IMPRESSION: 1. Small amount of likely residual free intraperineal gas and fluid post likely revision of an ileocolic anastomosis and placement of a surgical drain. No evident organized abscess or extraluminal contrast to suggest residual anastomotic leak. 2. Wall thickening along the sigmoid colon consistent with colitis infectious or inflammatory in etiology. Differential would also include residual reactive edema related to the prior anastomotic leak and recent surgery. 3. Volume loss in both lungs with atelectasis at the bilateral lung bases including complete collapse of the right middle lobe. Superimposed pneumonia not excludable but suspicion is low. 4. Chronic mild dilation the common bile duct without evident obstructing stone or mass, likely related to prior cholecystectomy but would correlate with liver function tests. CT Brain Angiography 12/13/24 11:34 IMPRESSION: 1. Normal aging brain. No acute intracranial process or abnormally enhancing b rain lesions. 2. Unremarkable cerebral CT angiogram with no hemodynamic significant stenosis, thrombosis or aneurysm. Chest X-Ray 12/13/24 12:26 IMPRESSION: 1. Persistent bibasilar atelectasis and/or airspace disease. 2. No significant change from one week prior. Abdomen/Pelvis CT 12/13/24 12:45 IMPRESSION: 1. Status post right hemicolectomy with anastomotic leak at the right lower quadrant ileocolic anastomosis. 2. Moderate bibasilar atelectasis, right greater than left with mucous bony of right middle and lower lobar bronchi. Chest CTA 12/13/24 12:45 IMPRESSION: 1. No pulmonary embolus. Sensitivity is moderately decreased by motion artifact. 2. Small lung volumes with relative elevation of right hemidiaphragm. Moderate atelectasis in the inferior lungs 3. Ascites. Labs Labs: Laboratory Results - last 24 hr 12/18/24 12/19/24 12/19/24 23:41 01:31 06:06 WBC 12.0 H RBC 3.22 L Hgb 8.8 L Hct 27.6 L MCV 85.7 MCH 27.3 D MCHC 31.9 L RDW 19.2 H Plt Count 468 H MPV 10.3 Sodium 139 Potassium 3.6 Chloride 113 H Carbon Dioxide 26 Anion Gap 0 L BUN 19 H Creatinine 0.73 Estim Creat Clear Calc Not Reportable Estimated GFR > 60 Glucose 157 H POC Capillary Glucose 157 H 130 H Calcium 7.4 L Vancomycin Trough 17.0 12/19/24 12/19/24 11:39 18:55 WBC RBC Hgb Hct MCV MCH MCHC RDW Plt Count MPV Sodium Potassium Chloride Carbon Dioxide Anion Gap BUN Creatinine Estim Creat Clear Calc Estimated GFR Glucose POC Capillary Glucose 136 H 220 H Calcium Vancomycin Trough Quality VTE Prophylaxis VTE prophylaxis: mechanical ordered Hospitalist MIPS Advance Care Plan I have confirmed that the patient's Advanced Care Plan is present, code status is documented, or surrogate decision maker is listed in patient medical record.: Yes Medication Reconciliation I have utilized all available resources to obtain, update and review the patients current medications (includes all prescriptions, OTC, herbals, cannabis, and nutritional supplements).: Yes
[2024-12-20] VITALS (9 sets, daily range): BP systolic 124–137; BP diastolic 70–82; PULSE 86–102; RESP 16–18; TEMP 36.7–36.9; O2SAT 95–98
[2024-12-20] MEDS: PIPERACILLIN/TAZOBACTAM SOD 3.375 GM in SODIUM CHLORIDE 0.9% IV 50 ML 100 ML IVPB ×3 (06:02→18:35)
[2024-12-20] MEDS: VANCOMYCIN HCL 1,000 MG in SODIUM CHLORIDE 0.9% IV 250 ML 250 MG IVPB ×2 (06:04→17:14)
[2024-12-20] MEDS: CENTRAL LINE FLUSH 10 ML IV PUSH ×3 (06:04→23:49)
[2024-12-20] MEDS: VANCOMYCIN ORAL 125 MG/2.5 ML SYRUP FEED TUBE ×3 (06:04→17:14)
[2024-12-20 06:26] LABS: Hematocrit 26.7 % (37.0-47.0); Hemoglobin 8.4 g/dL (12.0-15.0); Immature Granulocyte Percent A 0.9 % (0-0.5); Lymphocytes Absolute Auto 0.89 K/mm3 (0.9-3.2); Mean Corpuscular HGB Conc 31.5 g/dl (32-36); Mean Corpuscular Hemoglobin 27.3 pg (26-34); Mean Corpuscular Volume 86.7 fl (80-100); Nucleated Red Blood Cells Absolute Auto 0.060 K/mm3 (0.0-0.012); Nucleated Red Blood Cells Perc 0.5 % (0.0-0.2); Platelet Count Result 479 k/mm3 (150-375); Red Blood Count 3.08 M/mm3 (4.2-5.4); White Blood Count 11.4 K/mm3 (4.5-10.0)
[2024-12-20 06:49] LABS: Alanine Aminotransferase 29 U/L (6-35); Albumin Level 2.0 g/dL (3.5-5.1); Alkaline Phosphatase 157 U/L (38-126); Anion Gap 1 mmol/L (4-12); Aspartate Amino Transferase 41 U/L (14-36); Bilirubin,Total 0.5 mg/dL (0.2-1.3); Blood Urea Nitrogen 17 mg/dL (7-17); Calcium 7.7 mg/dL (8.4-10.2); Carbon Dioxide 25 mmol/L (22-30); Chloride 111 mmol/L (98-107); Estimated Glomerular Filt Rate > 60; Glucose 145 mg/dL (65-110); Potassium 3.3 mmol/L (3.4-5.0); Sodium 137 mmol/L (137-145); Total Protein 5.1 g/dL (6.3-8.2)
--- NOTE | 2024-12-20 11:51 | PCNFU ---
Nutrition Follow-Up Complete: Inadequate energy intake related to altered GI function as evidenced by need for full TPN Goal: Meet estimated nutrition needs Patient will continue current goal. Pt current nutrition is Regular with diet supplements TID. Last recorded weight is 69.8 kg, up from 69.9 kg on admit. Bowel Motility: Last reported BM 12/19 Labs Reviewed: Glu 145, K 3.3, Alb 2.0 Meds Noted: Lovenox, Protonix, Vancomycin. Skin: wound vac-abdomen. Additional Notes: TPN discontinued. Diet order advanced to regular diet with Ensure Plus High Protein TID. Oral intake for breakfast today about 25% and diet supplement 120 ml drank. PO intake encouraged. Agree with diet orders. Monitoring diet orders, oral intake, labs, weights, plan of care every 3 days.
[2024-12-20] MEDS: FLUCONAZOLE 400 MG/NACL 200 ML 400 MG/200 ML BAG 100 MG IVPB (12:02)
[2024-12-20] MEDS: ENOXAPARIN 40 MG/0.4 ML SYRINGE SUB-Q (12:03)
[2024-12-20] MEDS: PANTOPRAZOLE SODIUM IV 40 MG VIAL IV PUSH (12:03)
--- NOTE | 2024-12-20 13:43 | P.PNGS_ITS ---
Progress Note: A&P Assessment and Plan (1) Ileocolic anastomotic leak: Code(s): K91.89 - Other postprocedural complications and disorders of digestive system Status: Acute Assessment and Plan: * Continues to slowly improving. Tolerating a solid diet and ileostomy is functioning well. WBC count overall trending down. * Continue wound VAC therapy to abdominal wound. Next change will be Monday. * Continue daily iodoform packing dressing changes to RLQ wound where JUHI drain was removed. * Continue IV antibiotics through mucous fistula, ID following in suggesting IV antibiotic therapy for upwards of another 14 days total. End of therapy approximately 01/01/25 * Continue PT/OT, increase activity as tolerated (2) Protein calorie malnutrition: Qualifiers: Protein-calorie malnutrition severity: severe Qualified Code(s): E43 - Unspecified severe protein-calorie malnutrition Code(s): E46 - Unspecified protein-calorie malnutrition Status: Acute Assessment and Plan: * Tolerating a regular diet. Continue to encourage PO intake and Ensure supplements. (3) C. difficile diarrhea: Onset Date: ~04/01/24 Code(s): A04.72 - Enterocolitis due to Clostridium difficile, not specified as recurrent Status: Suspected Assessment and Plan: * Cdiff infection in March 2024. 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 * Continue vancomycin through the mucous fistula Q6H Plan Discussed patient's case and plan of care with Dr. Burch. Subjective Subjective Date/Time Seen: 12/20/24 13:43 Patient reports: no new complaints, feels better, tolerating a regular diet, bowel movement (good output from ileostomy) and afebrile Interval history: No new complaints. Patient feeling well and tolerating diet without nausea or vomiting. Afebrile.WBC decreasing at 11.4 today. Exam Const: General: comfortable and no acute distress Eyes: General: appearance normal, both eyes and all related structures Neck: Neck: supple Resp: Effort & Inspection: normal respiratory effort Cardio: Rate: regular rate GI: Inspection: distended GI Palp: Yes Soft to palpation Other: Wound VAC dressing change today at the bedside. Appears stable with almost a 100% healthy pink granulation tissue. Small area at the upper 1/3 still with fascial dehiscence present, but no evisceration. No purulence. Wound VAC reapplied. Ostomy with good output. Stoma appears pink and viable. Mucous fistula appears to be viable. Some necrotic tissue, but mostly pink. Right lower quadrant wound repacked today with depth of about 4.3 cm. Skin: General skin exam: normal color and no rashes or lesions noted Neuro: Sensory Exam: normal sensation Extrem: General: normal to inspection Psych: Mental Status: mental status grossly normal Objective Data Vital Signs Vital Signs: Vital Signs - 24 hr 12/19/24 16:00 12/19/24 20:00 12/19/24 20:00 Temperature 98.2 F Pulse Rate 105 H 102 H 102 H Respiratory Rate 18 18 Blood Pressure 121/83 Pulse Oximetry 96 96 Oxygen Delivery Room Air Fraction of Inspired Oxygen 28 12/19/24 20:00 12/19/24 21:02 12/20/24 00:00 Temperature Pulse Rate 103 H 102 H Respiratory Rate Blood Pressure Pulse Oximetry 96 Oxygen Delivery Room Air Fraction of Inspired Oxygen 12/20/24 04:00 12/20/24 04:57 Temperature 98.4 F Pulse Rate 100 95 Respiratory Rate 16 Blood Pressure 124/78 Pulse Oximetry 95 Oxygen Delivery Fraction of Inspired Oxygen Intake/Output Intake/Output: Intake & Output 12/17/24 12/18/24 12/19/24 12/20/24 23:59 23:59 23:59 23:59 Intake Total 1548.3 2435 1250 1194 Output Total 1362 3040 1000 200 Balance 186.3 -605 250 994 Meds/Results Medications: Active Medications Generic Name Dose Route Start Last Admin Trade Name Freq PRN Reason Stop Dose Admin Acetaminophen 650 mg 12/18/24 15:40 Acetaminophen 325 Mg Tablet PO Q4H PRN Mild Pain (1-3) or Fever Hydrocodone Bitart/Acetaminophen 1 tab 12/18/24 15:40 Hydrocodone/Acetaminophen (*Crx) 5-325 Mg Tablet PO Q4H PRN Pain Rated 4-6 Hydrocodone Bitart/Acetaminophen 1 tab 12/18/24 15:40 Hydrocodone/Acetaminophen (*Crx) 10-325 Mg Tablet PO Q6H PRN Pain Rated 7-10 Dextrose 12.5 gm 12/14/24 10:29 Dextrose 50% 25 Gm/50 Ml Syringe IV PUSH PRN PRN Hypoglycemia Protocol Enoxaparin Sodium 40 mg 12/07/24 09:00 12/20/24 12:03 Enoxaparin 40 Mg/0.4 Ml Syringe SUB-Q 40 mg DAILY CEE Administration Glucose 15 gm 12/14/24 10: Glucose Oral Gel 15 Gm Of Glucse In 37.5 Gm Tube PO PRN PRN Hypoglycemia Protocol Dextrose 1,000 mls @ 100 mls/hr 12/14/24 10:29 Dextrose 5% 1,000 Ml IVPB PRN PRN Hypoglycemia Protocol Piperacillin Sod/Tazobactam 50 mls @ 100 mls/hr 12/17/24 14:30 12/20/24 06:02 Sod 3.375 gm/ Sodium Chloride IVPB 100 mls/hr Q6HR CEE Administration Fluconazole 400 mg in 200 mls @ 100 mls/hr 12/19/24 13:30 12/20/24 12:02 Diflucan 400 Mg/Nacl 200 Ml IVPB 100 mls/hr DAILY CEE Administration Vancomycin HCl 1,000 mg/ 250 mls @ 250 mls/hr 12/20/24 06:00 12/20/24 06:04 Sodium Chloride IVPB 250 mls/hr Q12H CEE Administration Insulin Aspart 3 - 6 units 12/20/24 07:30 12/20/24 12:03 Insulin Aspart (*Bkc) 100 Units/Ml SUB-Q Not Given ACHS CEE Protocol Naloxone HCl 0.1 mg 12/06/24 17:15 Naloxone Hcl 0.4 Mg/Ml Vial IV PUSH Q2M PRN Opiate Reversal Ondansetron HCl 4 mg 12/03/24 17:26 12/09/24 05:23 Ondansetron Inj 4 Mg/2 Ml Vial IV PUSH 4 mg Q4H PRN Administration Nausea And Vomiting Pantoprazole Sodium 40 mg 12/07/24 09:00 12/20/24 12:03 Pantoprazole Sodium Iv 40 Mg Vial IV PUSH 40 mg QAM CEE Administration Phenol 1 spray 12/07/24 10:05 Phenol/Sod Pheno [place] (*Bkc) MUCOUS MEM Q2H PRN Sore Throat Sodium Chloride 10 ml 12/07/24 14:00 12/20/24 06:04 Central Line Flush IV PUSH 10 ml Q8HR CEE Administration Sodium Chloride 10 ml 12/07/24 09:45 12/11/24 00:42 Central Line Flush IV PUSH 10 ml PRN PRN Administration with TPN bag changes Sodium Chloride 20 ml 12/07/24 09:45 12/11/24 05:39 Central Line Flush IV PUSH 20 ml PRN PRN Administration after blood draws Vancomycin HCl 125 mg 12/18/24 18:00 12/20/24 06:04 Vancomycin Oral 125 Mg/2.5 Ml Syrup FEED TUBE 125 mg Q6HR CEE Administration Radiology Results: ITS Impressions Renal Ultrasound 12/04/24 21:30 Impression: 1: Unremarkable renal ultrasound. No stones, masses or hydronephrosis. Pulmonary Perfusion Imaging 12/05/24 18:55 IMPRESSION: 1: Normal perfusion scan. Probable shallow lung volumes. Recommend correlation with chest x-ray.. Chest/Abdomen/Pelvis CT 12/10/24 10:51 IMPRESSION: 1. Small amount of likely residual free intraperineal gas and fluid post likely revision of an ileocolic anastomosis and placement of a surgical drain. No evident organized abscess or extraluminal contrast to suggest residual anastomotic leak. 2. Wall thickening along the sigmoid colon consistent with colitis infectious or inflammatory in etiology. Differential would also include residual reactive edema related to the prior anastomotic leak and recent surgery. 3. Volume loss in both lungs with atelectasis at the bilateral lung bases including complete collapse of the right middle lobe. Superimposed pneumonia not excludable but suspicion is low. 4. Chronic mild dilation the common bile duct without evident obstructing stone or mass, likely related to prior cholecystectomy but would correlate with liver function tests. CT Brain Angiography 12/13/24 11:34 IMPRESSION: 1. Normal aging brain. No acute intracranial process or abnormally enhancing brain lesions. 2. Unremarkable cerebral CT angiogram with no hemodynamic significant stenosis, thrombosis or aneurysm. Chest X-Ray 12/13/24 12:26 IMPRESSION: 1. Persistent bibasilar atelectasis and/or airspace disease. 2. No significant change from one week prior. Abdomen/Pelvis CT 12/13/24 12:45 IMPRESSION: 1. Status post right hemicolectomy with anastomotic leak at the right lower quadrant ileocolic anastomosis. 2. Moderate bibasilar atelectasis, right greater than left with mucous bony of right middle and lower lobar bronchi. Chest CTA 12/13/24 12:45 IMPRESSION: 1. No pulmonary embolus. Sensitivity is moderately decreased by motion artifact. 2. Small lung volumes with relative elevation of right hemidiaphragm. Moderate atelectasis in the inferior lungs 3. Ascites. Labs Labs: Laboratory Results - last 24 hr 12/19/24 12/19/24 12/20/24 18:55 21:10 02:24 WBC RBC Hgb Hct MCV MCH MCHC RDW Plt Count MPV Immature Gran % (Auto) Neut % (Auto) Lymph % (Auto) [place] % (Auto) Eos % (Auto) Baso % (Auto) Lymph # (Auto) [place] # (Auto) Eos # (Auto) Baso # (Auto) Abs Immat Gran (auto) Absolute Neuts (auto) Absolute Nucleated RBC Nucleated RBC % Sodium Potassium Chloride Carbon Dioxide Anion Gap BUN Creatinine Estim Creat Clear Calc Estimated GFR Glucose POC Capillary Glucose 220 H 145 H Calcium Total Bilirubin AST ALT Alkaline Phosphatase Total Protein Albumin Vancomycin Trough 20.8 H 12/20/24 12/20/24 12/20/24 06:10 08:23 12:09 WBC 11.4 H RBC 3.08 L Hgb 8.4 L Hct 26.7 L MCV 86.7 MCH 27.3 MCHC 31.5 L RDW 19.6 H Plt Count 479 H MPV 10.3 Immature Gran % (Auto) 0.9 H Neut % (Auto) 83.5 H Lymph % (Auto) 7.8 L [place] % (Auto) 5.5 Eos % (Auto) 1.9 Baso % (Auto) 0.4 Lymph # (Auto) 0.89 L [place] # (Auto) 0.6 Eos # (Auto) 0.2 Baso # (Auto) 0.0 Abs Immat Gran (auto) 0.10 H Absolute Neuts (auto) 9.5 H Absolute Nucleated RBC 0.060 H Nucleated RBC % 0.5 H Sodium 137 Potassium 3.3 L Chloride 111 H Carbon Dioxide 25 Anion Gap 1 L BUN 17 Creatinine 0.70 Estim Creat Clear Calc Not Reportable Estimated GFR > 60 Glucose 145 H POC Capillary Glucose 138 H 152 H Calcium 7.7 L Total Bilirubin 0.5 AST 41 H ALT 29 Alkaline Phosphatase 157 H Total Protein 5.1 L Albumin 2.0 L Vancomycin Trough
--- NOTE | 2024-12-20 18:02 | P.PNINF_ITS ---
Progress Note: A&P Assessment and Plan (1) Intra-abdominal abscess post-procedure: Code(s): T81.43XA - Infection following a procedure, organ and space surgical site, initial encounter; K65.1 - Peritoneal abscess Status: Acute Assessment and Plan: As below Plan Assessment and plan (1) Intra-abdominal abscess post-procedure: Code(s): T81.43XA - Infection following a procedure, organ and space surgical site, initial encounter; K65.1 - Peritoneal abscess Status: Acute Assessment and Plan: -Abscess secondary to ileocolic anastomotic leak -Manaagement as per surgical service (2) Ileocolic anastomotic leak: Code(s): K91.89 - Other postprocedural complications and disorders of digestive system Status: Acute Assessment and Plan: -Management as per surgical service (3) History of partial colectomy: Code(s): Z90.49 - Acquired absence of other specified parts of digestive tract Status: Resolved (4) Adenocarcinoma of colon: Code(s): C18.9 - Malignant neoplasm of colon, unspecified Status: Acute Assessment and Plan: -Management as per primary service (5) Cancer of right colon: Onset Date: ~10/2024 Code(s): C18.2 - Malignant neoplasm of ascending colon Status: Acute Assessment and Plan: -Management as per primary service (6) C. difficile diarrhea: Onset Date: ~04/01/24 Code(s): A04.72 - Enterocolitis due to Clostridium difficile, not specified as recurrent Status: Inactive Assessment and Plan: -Patient has history of C.difficile infection starting in March 2024 -Has new diarrhea as of 12/12/24 Plan: - Continue Zosyn plus fluconazole and intravenous vancomycin. Follow JUHI cx. Continue trial of enteric vanc via ostomy. Plan for C diff treatment at treatment dose seen at least for another 3 weeks. Via ostomy. d/w RN Plan IV antibiotic therapy for upwards of another 14 days total. EOT approx Will continue to monitor abdominal exam. Follow wounds/ wound VAC per. General surgery plans. -Management of ileocolonic anastomotic leak as per surgical service -Continue supportive measures - Patient was seen via video telehealth consultation with the assistance of staff. Chart, data, and patient independently reviewed. Patient was located at [facility] while I was located in my [place] office. Received verbal consent from patient. Subjective Date/time seen: 12/20/24 18:02 Interval history: no fever. stable. no increased pain Exam Narrative: Alert. oriented x 3 new wound vac in place. Mild abdominal protuberance/ distension. No clear rebound. No rash. Objective Data Vital Signs Vital Signs: Vital Signs - 24 hr 12/19/24 20:00 12/19/24 20:00 12/19/24 20:00 Temperature 36.8 C Pulse Rate 102 H 102 H 103 H Respiratory Rate 18 18 Blood Pressure 121/83 Pulse Oximetry 96 96 Oxygen Delivery Room Air Fraction of Inspired Oxygen 28 12/19/24 21:02 12/20/24 00:00 12/20/24 04:00 Temperature Pulse Rate 102 H 100 Respiratory Rate Blood Pressure Pulse Oximetry 96 Oxygen Delivery Room Air Fraction of Inspired Oxygen 12/20/24 04:57 12/20/24 08:00 12/20/24 08:00 Temperature 36.9 C Pulse Rate 95 91 Respiratory Rate 16 Blood Pressure 124/78 Pulse Oximetry 95 Oxygen Delivery Room Air Fraction of Inspired Oxygen 12/20/24 12:00 12/20/24 14:00 12/20/24 16:00 Temperature 36.7 C Pulse Rate 95 86 98 Respiratory Rate 16 Blood Pressure 128/70 Pulse Oximetry 97 Oxygen Delivery Fraction of Inspired Oxygen Intake/Output Intake/Output: Intake & Output 12/17/24 12/18/24 12/19/24 12/20/24 23:59 23:59 23:59 23:59 Intake Total 1548.3 2435 1250 2701 Output Total 1362 3040 1000 1665 Balance 186.3 -802 418 1328 Meds/Results Medications: Active Medications Generic Name Dose Route Start Last Admin Trade Name Freq PRN Reason Stop Dose Admin Acetaminophen 650 mg 12/18/24 15:40 Acetaminophen 325 Mg Tablet PO Q4H PRN Mild Pain (1-3) or Fever Hydrocodone Bitart/Acetaminophen 1 tab 12/18/24 15:40 Hydrocodone/Acetaminophen (*Crx) 5-325 Mg Tablet PO Q4H PRN Pain Rated 4-6 Hydrocodone Bitart/Acetaminophen 1 tab 12/18/24 15:40 Hydrocodone/Acetaminophen (*Crx) 10-325 Mg Tablet PO Q6H PRN Pain Rated 7-10 Dextrose 12.5 gm 12/14/24 10:29 Dextrose 50% 25 Gm/50 Ml Syringe IV PUSH PRN PRN Hypoglycemia Protocol Enoxaparin Sodium 40 mg 12/07/24 09:00 12/20/24 12:03 Enoxaparin 40 Mg/0.4 Ml Syringe SUB-Q 40 mg DAILY CEE Administration Glucose 15 gm 12/14/24 10:29 Glucose Oral Gel 15 Gm Of Glucse In 37.5 Gm Tube PO PRN PRN Hypoglycemia Protocol Dextrose 1,000 mls @ 100 mls/hr 12/14/24 10:29 Dextrose 5% 1,000 Ml IVPB PRN PRN Hypoglycemia Protocol Piperacillin Sod/Tazobactam 50 mls @ 100 mls/hr 12/17/24 14:30 12/20/24 14:03 Sod 3.375 gm/ Sodium Chloride IVPB Infused Q6HR CEE Infusion Fluconazole 400 mg in 200 mls @ 100 mls/hr 12/19/24 13:30 12/20/24 14:02 Diflucan 400 Mg/Nacl 200 Ml IVPB Infused DAILY CEE Infusion Vancomycin HCl 1,000 mg/ 250 mls @ 250 mls/hr 12/20/24 06:00 12/20/24 17:14 Sodium Chloride IVPB 250 mls/hr Q12H CEE Administration Insulin Aspart 3 - 6 units 12/20/24 07:30 12/20/24 16:45 Insulin Aspart (*Bkc) 100 Units/Ml SUB-Q Not Given ACHS CEE Protocol Naloxone HCl 0.1 mg 12/06/24 17:15 Naloxone Hcl 0.4 Mg/Ml Vial IV PUSH Q2M PRN Opiate Reversal Ondansetron HCl 4 mg 12/03/24 17:26 12/09/24 05:23 Ondansetron Inj 4 Mg/2 Ml Vial IV PUSH 4 mg Q4H PRN Administration Nausea And Vomiting Pantoprazole Sodium 40 mg 12/07/24 09:00 12/20/24 12:03 Pantoprazole Sodium Iv 40 Mg Vial IV PUSH 40 mg QAM CEE Administration Phenol 1 spray 12/07/24 10:05 Phenol/Sod Pheno [place] Sal[place] (*Bkc) MUCOUS MEM Q2H PRN Sore Throat Sodium Chloride 10 ml 12/07/24 14:00 12/20/24 13:33 Central Line Flush IV PUSH 10 ml Q8HR CEE Administration Sodium Chloride 10 ml 12/07/24 09:45 12/11/24 00:42 Central Line Flush IV PUSH 10 ml PRN PRN Administration with TPN bag changes Sodium Chloride 20 ml 12/07/24 09:45 12/11/24 05:39 Central Line Flush IV PUSH 20 ml PRN PRN Administration after blood draws Vancomycin HCl 125 mg 12/18/24 18:00 12/20/24 17:14 Vancomycin Oral 125 Mg/2.5 Ml Syrup FEED TUBE 125 mg Q6HR CEE Administration Radiology Results: ITS Impressions Renal Ultrasound 12/04/24 21:30 Impression: 1: Unremarkable renal ultrasound. No stones, masses or hydronephrosis. Pulmonary Perfusion Imaging 12/05/24 18:55 IMPRESSION: 1: Normal perfusion scan. Probable shallow lung volumes. Recommend correlation with chest x-ray.. Chest/Abdomen/Pelvis CT 12/10/24 10:51 IMPRESSION: 1. Small amount of likely residual free intraperineal gas and fluid post likely revision of an ileocolic anastomosis and placement of a surgical drain. No evident organized abscess or extraluminal contrast to suggest residual anastomotic leak. 2. Wall thickening along the sigmoid colon consistent with colitis infectious or inflammatory in etiology. Differential would also include residual reactive edema related to the prior anastomotic leak and recent surgery. 3. Volume loss in both lungs with atelectasis at the bilateral lung bases including complete collapse of the right middle lobe. Superimposed pneumonia not excludable but suspicion is low. 4. Chronic mild dilation the common bile duct without evident obstructing stone or mass, likely related to prior cholecystectomy but would correlate with liver function tests. CT Brain Angiography 12/13/24 11:34 IMPRESSION: 1. Normal aging brain. No acute intracranial process or abnormally enhancing brain lesions. 2. Unremarkable cerebral CT angiogram with no hemodynamic significant stenosis, thrombosis or aneurysm. Chest X-Ray 12/13/24 12:26 IMPRESSION: 1. Persistent bibasilar atelectasis and/or airspace disease. 2. No significant change from one week prior. Abdomen/Pelvis CT 12/13/24 12:45 IMPRESSION: 1. Status post right hemicolectomy with anastomotic leak at the right lower quadrant ileocolic anastomosis. 2. Moderate bibasilar atelectasis, right greater than left with mucous bony of right middle and lower lobar bronchi. Chest CTA 12/13/24 12:45 IMPRESSION: 1. No pulmonary embolus. Sensitivity is moderately decreased by motion artifact. 2. Small lung volumes with relative elevation of right hemidiaphragm. Moderate atelectasis in the inferior lungs 3. Ascites. Labs Labs: Laboratory Results - last 24 hr 12/19/24 12/19/24 12/20/24 18:55 21:10 02:24 WBC RBC Hgb Hct MCV MCH MCHC RDW Plt Count MPV Immature Gran % (Auto) Neut % (Auto) Lymph % (Auto) [place] % (Auto) Eos % (Auto) Baso % (Auto) Lymph # (Auto) [place] # (Auto) Eos # (Auto) Baso # (Auto) Abs Immat Gran (auto) Absolute Neuts (auto) Absolute Nucleated RBC Nucleated RBC % Sodium Potassium Chloride Carbon Dioxide Anion Gap BUN Creatinine Estim Creat Clear Calc Estimated GFR Glucose POC Capillary Glucose 220 H 145 H Calcium Total Bilirubin AST ALT Alkaline Phosphatase Total Protein Albumin Vancomycin Trough 20.8 H 12/20/24 12/20/24 12/20/24 06:10 08:23 12:09 WBC 11.4 H RBC 3.08 L Hgb 8.4 L Hct 26.7 L MCV 86.7 MCH 27.3 MCHC 31.5 L RDW 19.6 H Plt Count 479 H MPV 10.3 Immature Gran % (Auto) 0.9 H Neut % (Auto) 83.5 H Lymph % (Auto) 7.8 L [place] % (Auto) 5.5 Eos % (Auto) 1.9 Baso % (Auto) 0.4 Lymph # (Auto) 0.89 L [place] # (Auto) 0.6 Eos # (Auto) 0.2 Baso # (Auto) 0.0 Abs Immat Gran (auto) 0.10 H Absolute Neuts (auto) 9.5 H Absolute Nucleated RBC 0.060 H Nucleated RBC % 0.5 H Sodium 137 Potassium 3.3 L Chloride 111 H Carbon Dioxide 25 Anion Gap 1 L BUN 17 Creatinine 0.70 Estim Creat Clear Calc Not Reportable Estimated GFR > 60 Glucose 145 H POC Capillary Glucose 138 H 152 H Calcium 7.7 L Total Bilirubin 0.5 AST 41 H ALT 29 Alkaline Phosphatase 157 H Total Protein 5.1 L Albumin 2.0 L Vancomycin Trough 12/20/24 16:40 WBC RBC Hgb Hct MCV MCH MCHC RDW Plt Count MPV Immature Gran % (Auto) Neut % (Auto) Lymph % (Auto) [place] % (Auto) Eos % (Auto) Baso % (Auto) Lymph # (Auto) [place] # (Auto) Eos # (Auto) Baso # (Auto) Abs Immat Gran (auto) Absolute Neuts (auto) Absolute Nucleated RBC Nucleated RBC % Sodium Potassium Chloride Carbon Dioxide Anion Gap BUN Creatinine Estim Creat Clear Calc Estimated GFR Glucose POC Capillary Glucose 176 H Calcium Total Bilirubin AST ALT Alkaline Phosphatase Total Protein Albumin Vancomycin Trough
[2024-12-21] VITALS (11 sets, daily range): BP systolic 127–146; BP diastolic 77–85; PULSE 91–111; RESP 18–26; TEMP 36–36.9; O2SAT 94–98
[2024-12-21] MEDS: VANCOMYCIN ORAL 125 MG/2.5 ML SYRUP FEED TUBE ×4 (00:22→18:00)
[2024-12-21] MEDS: PIPERACILLIN/TAZOBACTAM SOD 3.375 GM in SODIUM CHLORIDE 0.9% IV 50 ML 100 ML IVPB ×4 (00:48→18:00)
[2024-12-21] MEDS: CENTRAL LINE FLUSH 20 ML IV PUSH (05:30)
[2024-12-21] MEDS: CENTRAL LINE FLUSH 10 ML IV PUSH ×3 (05:30→20:21)
[2024-12-21 06:26] LABS: Estimated Glomerular Filt Rate > 60
[2024-12-21] MEDS: VANCOMYCIN HCL 1,000 MG in SODIUM CHLORIDE 0.9% IV 250 ML 250 MG IVPB ×2 (09:08→19:07)
[2024-12-21] MEDS: ENOXAPARIN 40 MG/0.4 ML SYRINGE SUB-Q (09:09)
[2024-12-21] MEDS: PANTOPRAZOLE SODIUM IV 40 MG VIAL IV PUSH (09:09)
[2024-12-21 09:29] LABS: Hematocrit 30.9 % (37.0-47.0); Hemoglobin 9.8 g/dL (12.0-15.0); Immature Granulocyte Percent A 0.9 % (0-0.5); Lymphocytes Absolute Auto 1.08 K/mm3 (0.9-3.2); Mean Corpuscular HGB Conc 31.7 g/dl (32-36); Mean Corpuscular Hemoglobin 27.1 pg (26-34); Mean Corpuscular Volume 85.6 fl (80-100); Nucleated Red Blood Cells Absolute Auto 0.050 K/mm3 (0.0-0.012); Nucleated Red Blood Cells Perc 0.3 % (0.0-0.2); Platelet Count Result 594 k/mm3 (150-375); Red Blood Count 3.61 M/mm3 (4.2-5.4); White Blood Count 16.6 K/mm3 (4.5-10.0)
[2024-12-21 09:43] LABS: Alanine Aminotransferase 32 U/L (6-35); Albumin Level 2.4 g/dL (3.5-5.1); Alkaline Phosphatase 210 U/L (38-126); Anion Gap 4 mmol/L (4-12); Aspartate Amino Transferase 45 U/L (14-36); Bilirubin,Total 0.6 mg/dL (0.2-1.3); Blood Urea Nitrogen 15 mg/dL (7-17); Calcium 8.4 mg/dL (8.4-10.2); Carbon Dioxide 22 mmol/L (22-30); Chloride 109 mmol/L (98-107); Estimated Glomerular Filt Rate > 60; Glucose 180 mg/dL (65-110); Potassium 3.2 mmol/L (3.4-5.0); Sodium 135 mmol/L (137-145); Total Protein 5.9 g/dL (6.3-8.2)
[2024-12-21] MEDS: FLUCONAZOLE 400 MG/NACL 200 ML 400 MG/200 ML BAG 100 MG IVPB (10:58)
--- NOTE | 2024-12-21 14:29 | PM.PNGS ---
Progress Note: A&P Assessment and Plan (1) Ileocolic anastomotic leak: Code(s): K91.89 - Other postprocedural complications and disorders of digestive system Status: Acute Assessment and Plan: WBC trend up for couple days. Might need re-imaging if up again tomorrow. Continue daily iodoform packing dressing changes to RLQ wound where JUHI drain was removed. Continue IV antibiotics, ID following in suggesting IV antibiotic therapy for upwards of another 14 days total. End of therapy approximately 01/01/25 Continue PT/OT, increase activity as tolerated (2) Protein calorie malnutrition: Qualifiers: Protein-calorie malnutrition severity: severe Qualified Code(s): E43 - Unspecified severe protein-calorie malnutrition Code(s): E46 - Unspecified protein-calorie malnutrition Status: Acute Assessment and Plan: Tolerating a regular diet. Continue to encourage PO intake and Ensure supplements. (3) C. difficile diarrhea: Onset Date: ~04/01/24 Code(s): A04.72 - Enterocolitis due to Clostridium difficile, not specified as recurrent Status: Suspected Assessment and Plan: Cdiff infection in March 2024. 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 Continue vancomycin through the mucous fistula Q6H Subjective Subjective Date/Time Seen: 12/21/24 14:29 Interval history: Tolerating solid diet. Ostomy functioning. Patient tired today. No fevers. Exam Resp: Effort & Inspection: normal respiratory effort Cardio: Rate: regular rate GI: GI Palp: Yes Soft to palpation Other: Wound VAC dressing change today at the bedside. Appears stable with almost a 100% healthy pink granulation tissue. Small area at the upper 1/3 still with fascial dehiscence present, but no evisceration. No purulence. Wound VAC reapplied. Ostomy with good output. Stoma appears pink and viable. Mucous fistula appears to be viable. Some necrotic tissue, but mostly pink. Objective Data Vital Signs Vital Signs: Vital Signs - 24 hr 12/20/24 16:00 12/20/24 20:00 12/20/24 20:00 Temperature Pulse Rate 98 96 Respiratory Rate Blood Pressure Pulse Oximetry Oxygen Delivery Room Air 12/20/24 21:25 12/21/24 00:00 12/21/24 04:00 Temperature 98.1 F Pulse Rate 99 95 91 Respiratory Rate 18 Blood Pressure 137/82 Pulse Oximetry 98 Oxygen Delivery 12/21/24 05:15 12/21/24 09:10 12/21/24 09:16 Temperature 98.4 F Pulse Rate 95 111 H Respiratory Rate 18 20 Blood Pressure 146/80 H Pulse Oximetry 98 94 94 Oxygen Delivery Room Air Intake/Output Intake/Output: Intake & Output 12/18/24 12/19/24 12/20/24 12/21/24 23:59 23:59 23:59 23:59 Intake Total 2435 1250 2751 750 Output Total 3040 1000 2725 1165 Balance -605 250 26 -415 Meds/Results Medications: Active Medications Generic Name Dose Route Start Last Admin Trade Name Freq PRN Reason Stop Dose Admin Acetaminophen 650 mg 12/18/24 15:40 Acetaminophen 325 Mg Tablet PO Q4H PRN Mild Pain (1-3) or Fever Hydrocodone Bitart/Acetaminophen 1 tab 12/18/24 15:40 Hydrocodone/Acetaminophen (*Crx) 5-325 Mg Tablet PO Q4H PRN Pain Rated 4-6 Hydrocodone Bitart/Acetaminophen 1 tab 12/18/24 15:40 Hydrocodone/Acetaminophen (*Crx) 10-325 Mg Tablet PO Q6H PRN Pain Rated 7-10 Dextrose 12.5 gm 12/14/24 10:29 Dextrose 50% 25 Gm/50 Ml Syringe IV PUSH PRN PRN Hypoglycemia Protocol Enoxaparin Sodium 40 mg 12/07/24 09:00 12/21/24 09:09 Enoxaparin 40 Mg/0.4 Ml Syringe SUB-Q 40 mg DAILY CEE Administration Glucose 15 gm 12/14/24 10:29 Glucose Oral Gel 15 Gm Of Glucse In 37.5 Gm Tube PO PRN PRN Hypoglycemia Protocol Dextrose 1,000 mls @ 100 mls/hr 12/14/24 10:29 Dextrose 5% 1,000 Ml IVPB PRN PRN Hypoglycemia Protocol Piperacillin Sod/Tazobactam 50 mls @ 100 mls/hr 12/17/24 14:30 12/21/24 12:39 Sod 3.375 gm/ Sodium Chloride IVPB 100 mls/hr Q6HR CEE Administration Fluconazole 400 mg in 200 mls @ 100 mls/hr 12/19/24 13:30 12/21/24 10:58 Diflucan 400 Mg/Nacl 200 Ml IVPB 100 mls/hr DAILY CEE Administration Vancomycin HCl 1,000 mg/ 250 mls @ 250 mls/hr 12/21/24 07:00 12/21/24 09:08 Sodium Chloride IVPB 250 mls/hr Q12H CEE Administration Insulin Aspart 3 - 6 units 12/20/24 07:30 12/21/24 11:56 Insulin Aspart (*Bkc) 100 Units/Ml SUB-Q Not Given ACHS CEE Protocol Naloxone HCl 0.1 mg 12/06/24 17:15 Naloxone Hcl 0.4 Mg/Ml Vial IV PUSH Q2M PRN Opiate Reversal Ondansetron HCl 4 mg 12/03/24 17:26 12/09/24 05:23 Ondansetron Inj 4 Mg/2 Ml Vial IV PUSH 4 mg Q4H PRN Administration Nausea And Vomiting Pantoprazole Sodium 40 mg 12/07/24 09:00 12/21/24 09:09 Pantoprazole Sodium Iv 40 Mg Vial IV PUSH 40 mg QAM CEE Administration Phenol 1 spray 12/07/24 10:05 Phenol/Sod Pheno [place] (*Bkc) MUCOUS MEM Q2H PRN Sore Throat Sodium Chloride 10 ml 12/07/24 14:00 12/21/24 12:40 Central Line Flush IV PUSH 10 ml Q8HR CEE Administration Sodium Chloride 10 ml 12/07/24 09:45 12/11/24 00:42 Central Line Flush IV PUSH 10 ml PRN PRN Administration with TPN bag changes Sodium Chloride 20 ml 12/07/24 09:45 12/21/24 05:30 Central Line Flush IV PUSH 20 ml PRN PRN Administration after blood draws Vancomycin HCl 125 mg 12/18/24 18:00 12/21/24 12:39 Vancomycin Oral 125 Mg/2.5 Ml Syrup FEED TUBE 125 mg Q6HR CEE Administration Radiology Results: ITS Impressions Renal Ultrasound 12/04/24 21:30 Impression: 1: Unremarkable renal ultrasound. No stones, masses or hydronephrosis. Pulmonary Perfusion Imaging 12/05/24 18:55 IMPRESSION: 1: Normal perfusion scan. Probable shallow lung volumes. Recommend correlation with chest x-ray.. Chest/Abdomen/Pelvis CT 12/10/24 10:51 IMPRESSION: 1. Small amount of likely residual free intraperineal gas and fluid post likely revision of an ileocolic anastomosis and placement of a surgical drain. No evident organized abscess or extraluminal contrast to suggest residual anastomotic leak. 2. Wall thickening along the sigmoid colon consistent with colitis infectious or inflammatory in etiology. Differential would also include residual reactive edema related to the prior anastomotic leak and recent surgery. 3. Volume loss in both lungs with atelectasis at the bilateral lung bases including complete collapse of the right middle lobe. Superimposed pneumonia not excludable but suspicion is low. 4. Chronic mild dilation the common bile duct without evident obstructing stone or mass, likely related to prior cholecystectomy but would correlate with liver function tests. CT Brain Angiography 12/13/24 11:34 IMPRESSION: 1. Normal aging brain. No acute intracranial process or abnormally enhancing brain lesions. 2. Unremarkable cerebral CT angiogram with no hemodynamic significant stenosis, thrombosis or aneurysm. Chest X-Ray 12/13/24 12:26 IMPRESSION: 1. Persistent bibasilar atelectasis and/or airspace disease. 2. No significant change from one week prior. Abdomen/Pelvis CT 12/13/24 12:45 IMPRESSION: 1. Status post right hemicolectomy with anastomotic leak at the right lower quadrant ileocolic anastomosis. 2. Moderate bibasilar atelectasis, right greater than left with mucous bony of right middle and lower lobar bronchi. Chest CTA 12/13/24 12:45 IMPRESSION: 1. No pulmonary embolus. Sensitivity is moderately decreased by motion artifact. 2. Small lung volumes with relative elevation of right hemidiaphragm. Moderate atelectasis in the inferior lungs 3. Ascites. Labs Labs: Laboratory Results - last 24 hr 12/20/24 12/20/24 12/21/24 16:40 21:38 05:46 WBC RBC Hgb Hct MCV MCH MCHC RDW Plt Count MPV Immature Gran % (Auto) Neut % (Auto) Lymph % (Auto) [place] % (Auto) Eos % (Auto) Baso % (Auto) Lymph # (Auto) [place] # (Auto) Eos # (Auto) Baso # (Auto) Abs Immat Gran (auto) Absolute Neuts (auto) Absolute Nucleated RBC Nucleated RBC % Sodium Potassium Chloride Carbon Dioxide Anion Gap BUN Creatinine Estim Creat Clear Calc Estimated GFR Glucose POC Capillary Glucose 176 H 181 H Calcium Total Bilirubin AST ALT Alkaline Phosphatase Total Protein Albumin Vancomycin Trough 18.0 12/21/24 12/21/24 12/21/24 05:47 08:29 09:17 WBC 16.6 H RBC 3.61 L Hgb 9.8 L Hct 30.9 L MCV 85.6 MCH 27.1 MCHC 31.7 L RDW 19.5 H Plt Count 594 H MPV 9.9 Immature Gran % (Auto) 0.9 H Neut % (Auto) 86.6 H Lymph % (Auto) 6.5 L [place] % (Auto) 4.3 Eos % (Auto) 1.3 Baso % (Auto) 0.4 Lymph # (Auto) 1.08 [place] # (Auto) 0.7 H Eos # (Auto) 0.2 Baso # (Auto) 0.1 Abs Immat Gran (auto) 0.15 H Absolute Neuts (auto) 14.4 H Absolute Nucleated RBC 0.050 H Nucleated RBC % 0.3 H Sodium 135 L Potassium 3.2 L Chloride 109 H Carbon Dioxide 22 Anion Gap 4 BUN 15 Creatinine 0.69 L 0.74 Estim Creat Clear Calc Not Reportable Not Reportable Estimated GFR > 60 > 60 Glucose 180 H POC Capillary Glucose 137 H Calcium 8.4 Total Bilirubin 0.6 AST 45 H ALT 32 Alkaline Phosphatase 210 H Total Protein 5.9 L Albumin 2.4 L Vancomycin Trough 12/21/24 11:48 WBC RBC Hgb Hct MCV MCH MCHC RDW Plt Count MPV Immature Gran % (Auto) Neut % (Auto) Lymph % (Auto) [place] % (Auto) Eos % (Auto) Baso % (Auto) Lymph # (Auto) [place] # (Auto) Eos # (Auto) Baso # (Auto) Abs Immat Gran (auto) Absolute Neuts (auto) Absolute Nucleated RBC Nucleated RBC % Sodium Potassium Chloride Carbon Dioxide Anion Gap BUN Creatinine Estim Creat Clear Calc Estimated GFR Glucose POC Capillary Glucose 155 H Calcium Total Bilirubin AST ALT Alkaline Phosphatase Total Protein Albumin Vancomycin Trough
--- NOTE | 2024-12-21 15:28 | PM.IMPN ---
Progress Note: A&P Assessment and Plan (1) History of partial colectomy: Code(s): Z90.49 - Acquired absence of other specified parts of digestive tract Status: Resolved (2) Ileocolic anastomotic leak: Code(s): K91.89 - Other postprocedural complications and disorders of digestive system Status: Acute (3) Acute blood loss anemia: Code(s): D62 - Acute posthemorrhagic anemia Status: Acute (4) Acute hypoxemic respiratory failure: Code(s): J96.01 - Acute respiratory failure with hypoxia Status: Acute Plan 64 y/o F with PMH of cancer the right colon S/P right colectomy, thrombosis of the mesenteric vein, WILL, diverticulitis, rhabdomyolysis (2021), hyperlipidemia and hypertension presented here on 12/03 with difficulty urinating. Previously underwent a hand assisted laparoscopic right colectomy with extensive adhesiolysis, mobilization of hepatic flexure by Dr. May on 11/27/24. Discharge on postop day 2 as she was doing well. At home she has had worsening abdominal pain, constipation. On readmission she has had a lengthy hospital course, on 12/06 undergoing a exploratory laparotomy with ileocolic resection with [id number] ileo colic anastomosis drainage of intra-abdominal abscess with placement of wound VAC. Due to bile in JUHI drains she had a repeat abdomen pelvis CT with water-soluble oral contrast demonstrating right hemicolectomy with anastomotic leak. On 12/13/2024 she underwent re-exploration with ileocolic resection with end ileostomy and mucous fistula creation and placement of wound VAC within subcutaneous space measuring 12 cm x 3 cm. General surgery managing wounds, wound VAC, JUHI drain. Currently on TPN. Wound care per surgery and unit protocol and wound care. Next wound VAC Saturday 12/23. Malnutrition: Related to surgery, continue TPN. NG tube in place which is clamped. Started on clear liquid per General surgery. This has been advanced to full liquid now. NG has been removed 12/17/2024 Sepsis: Monitor leukocytosis, tachypnea, tachycardia. Overall trend of leukocytosis has peaked at 19.9 on 12/08/2024, currently improving to 12. Continue to monitor along with procalcitonin. Infectious Disease consulted, continue zosyn, fluconazole, vancomycin p.o. 12/04/2024 blood culture x2 negative, final. vancomycin oral needs to transition to administration through mucous fistula. C diff colitis: Appreciate ID recommendations, currently on p.o. vancomycin total 3 weeks via ostomy. Post hemorrhagic anemia: Monitor daily hemoglobin, stable. Restart Lovenox 40 mg subQ q.day for DVT prophylaxis when okay by surgery. Hypocalcemia: After correction for hypoalbuminemia, 8.1. Continue to monitor. Elevated blood glucose readings: HbA1c 6.0%. Accu-Cheks q.6 hours with hypoglycemia protocol and low-dose insulin sliding scale. Acute hypoxic respiratory failure: Patient weaned to room air on 12/15/2024. Due to atelectasis, CTA chest did not demonstrate pneumonia/PE. Continue incentive spirometer and EzPAP q.i.d.. Mobilize as soon as possible. Acute kidney injury and urinary retention: Could be due to hypovolemia, anemia, urinary retention, sepsis, contrast exposure. DARRYL has resolved. Nephrology signed off. [place] catheter remains due to surgery and immobility. Hypertension: [employer] antihypertensives on hold. Monitor blood pressure. Anemia hemoglobin down to 6.6 12/18/2024 1 unit PRBC. Now stable at 8.8. DVT prophylaxis: SCDs. Lovenox 40 mg daily currently on hold due to anemia Nutrition: NPO. TPN. Prophylaxis: Protonix 40 mg IV q.a.m. for ulcer prophylaxis. PT/OT consulted Right upper extremity PICC line Deconditioning, PT/OT as appropriate per General surgery team. EzPAP, incentive spirometer. Patient wishes to be full code. Prior to admission she lives at home and was independent. Subjective Date/time seen: 12/21/24 15:28 Review of Systems Review of Systems: All systems reviewed & are unremarkable except as noted in HPI and below (Subjective) Exam Narrative: GENERAL: Alert and oriented x3, not in acute distress HEAD: Normal with no signs of head trauma. EYES: EOMI, conjunctiva normal ENT: Hearing grossly intact LUNGS: Nonlabored breathing. No adventitious sounds HEART: [Regular rate and rhythm] ABD: [Soft], mildly distended, mild tenderness, surgical incision with wound VAC, clean dry and intact EXT: Normal range of motion SKIN: [No rashes or lesions.] NEURO: [Alert and oriented x 3. No gross focal sensory or strength deficits.] PSYCH: Normal affect Const: General: comfortable and no acute distress Other: A&O x3 HENMT: Face/Nose/Sinus: Normal nares present Mouth: Yes moist mucous membranes and Yes dry mucous membranes Eyes: General: appearance normal, both eyes and all related structures Sclera: sclerae normal Pupils: Equal, round and reactive pupils present EOM: EOMs intact bilaterally Neck: Neck: supple Resp: Effort & Inspection: normal respiratory effort Auscultation: clear to auscultation bilaterally and crackles Other: Slowly decreased breath sounds at bilateral bases, no crackles/wheezing/rhonchi Cardio: Rate: regular rate and tachycardic Rhythm: regular rhythm Heart sounds: no gallops and no murmurs Other: S1-S2 present without murmur, rub, ectopy GI: Inspection: non-distended Other: Right-sided mucous fistula with serosanguineous drainage, end ileostomy with light brown serous drainage, JUHI drain with serosanguineous drainage, wound VAC intact. Urinary Catheter: Urinary Catheter: patent and draining Skin: General skin exam: normal color and no rashes or lesions noted Other: Postsurgical incision to abdomen is well approximated, sutures in place, no signs of infection Neuro: Cranial nerves: Yes Equal, round and reactive pupils present Speech: normal speech Motor exam (neuro): 5/5 motor strength present throughout Sensory Exam: normal sensation Other: Generalized weakness Extrem: General: normal to inspection and edema Other: Trace edema bilateral lower extremities Psych: Mental Status: mental status grossly normal Affect: normal affect Other: Good insight and judgment, pleasant Objective Data Vital Signs Vital Signs: Vital Signs - 24 hr 12/20/24 16:00 12/20/24 20:00 12/20/24 20:00 Temperature Pulse Rate 98 96 Respiratory Rate Blood Pressure Pulse Oximetry Oxygen Delivery Room Air 12/20/24 21:25 12/21/24 00:00 12/21/24 04:00 Temperature 98.1 F Pulse Rate 99 95 91 Respiratory Rate 18 Blood Pressure 137/82 Pulse Oximetry 98 Oxygen Delivery 12/21/24 05:15 12/21/24 09:10 12/21/24 09:16 Temperature 98.4 F Pulse Rate 95 111 H Respiratory Rate 18 20 Blood Pressure 146/80 H Pulse Oximetry 98 94 94 Oxygen Delivery Room Air 12/21/24 14:00 Temperature 97.3 F L Pulse Rate 96 Respiratory Rate 20 Blood Pressure 133/85 Pulse Oximetry 96 Oxygen Delivery Intake/Output Intake/Output: Intake & Output 12/18/24 12/19/24 12/20/24 12/21/24 23:59 23:59 23:59 23:59 Intake Total 2435 1250 2751 750 Output Total 3040 1000 2725 1515 Balance -605 250 26 -765 Meds/Results Medications: Active Medications Generic Name Dose Route Start Last Admin Trade Name Freq PRN Reason Stop Dose Admin Acetaminophen 650 mg 12/18/24 15:40 Acetaminophen 325 Mg Tablet PO Q4H PRN Mild Pain (1-3) or Fever Hydrocodone Bitart/Acetaminophen 1 tab 12/18/24 15:40 Hydrocodone/Acetaminophen (*Crx) 5-325 Mg Tablet PO Q4H PRN Pain Rated 4-6 Hydrocodone Bitart/Acetaminophen 1 tab 12/18/24 15:40 Hydrocodone/Acetaminophen (*Crx) 10-325 Mg Tablet PO Q6H PRN Pain Rated 7-10 Dextrose 12.5 gm 12/14/24 10:29 Dextrose 50% 25 Gm/50 Ml Syringe IV PUSH PRN PRN Hypoglycemia Protocol Enoxaparin Sodium 40 mg 12/07/24 09:00 12/21/24 09:09 Enoxaparin 40 Mg/0.4 Ml Syringe SUB-Q 40 mg DAILY CEE Administration Glucose 15 gm 12/14/24 10:29 Glucose Oral Gel 15 Gm Of Glucse In 37.5 Gm Tube PO PRN PRN Hypoglycemia Protocol Dextrose 1,000 mls @ 100 mls/hr 12/14/24 10:29 Dextrose 5% 1,000 Ml IVPB PRN PRN Hypoglycemia Protocol Piperacillin Sod/Tazobactam 50 mls @ 100 mls/hr 12/17/24 14:30 12/21/24 12:39 Sod 3.375 gm/ Sodium Chloride IVPB 100 mls/hr Q6HR CEE Administration Fluconazole 400 mg in 200 mls @ 100 mls/hr 12/19/24 13:30 12/21/24 10:58 Diflucan 400 Mg/Nacl 200 Ml IVPB 100 mls/hr DAILY CEE Administration Vancomycin HCl 1,000 mg/ 250 mls @ 250 mls/hr 12/21/24 07:00 12/21/24 09:08 Sodium Chloride IVPB 250 mls/hr Q12H CEE Administration Insulin Aspart 3 - 6 units 12/20/24 07:30 12/21/24 11:56 Insulin Aspart (*Bkc) 100 Units/Ml SUB-Q Not Given ACHS CEE Protocol Naloxone HCl 0.1 mg 12/06/24 17:15 Naloxone Hcl 0.4 Mg/Ml Vial IV PUSH Q2M PRN Opiate Reversal Ondansetron HCl 4 mg 12/03/24 17:26 12/09/24 05:23 Ondansetron Inj 4 Mg/2 Ml Vial IV PUSH 4 mg Q4H PRN Administration Nausea And Vomiting Pantoprazole Sodium 40 mg 12/07/24 09:00 12/21/24 09:09 Pantoprazole Sodium Iv 40 Mg Vial IV PUSH 40 mg QAM CEE Administration Phenol 1 spray 12/07/24 10:05 Phenol/Sod Pheno [place] (*Bkc) MUCOUS MEM Q2H PRN Sore Throat Sodium Chloride 10 ml 12/07/24 14:00 12/21/24 12:40 Central Line Flush IV PUSH 10 ml Q8HR CEE Administration Sodium Chloride 10 ml 12/07/24 09:45 12/11/24 00:42 Central Line Flush IV PUSH 10 ml PRN PRN Administration with TPN bag changes Sodium Chloride 20 ml 12/07/24 09:45 12/21/24 05:30 Central Line Flush IV PUSH 20 ml PRN PRN Administration after blood draws Vancomycin HCl 125 mg 12/18/24 18:00 12/21/24 12:39 Vancomycin Oral 125 Mg/2.5 Ml Syrup FEED TUBE 125 mg Q6HR CEE Administration Radiology Results: ITS Impressions Renal Ultrasound 12/04/24 21:30 Impression: 1: Unremarkable renal ultrasound. No stones, masses or hydronephrosis. Pulmonary Perfusion Imaging 12/05/24 18:55 IMPRESSION: 1: Normal perfusion scan. Probable shallow lung volumes. Recommend correlation with chest x-ray.. Chest/Abdomen/Pelvis CT 12/10/24 10:51 IMPRESSION: 1. Small amount of likely residual free intraperineal gas and fluid post likely revision of an ileocolic anastomosis and placement of a surgical drain. No evident organized abscess or extraluminal contrast to suggest residual anastomotic leak. 2. Wall thickening along the sigmoid colon consistent with colitis infectious or inflammatory in etiology. Differential would also include residual reactive edema related to the prior anastomotic leak and recent surgery. 3. Volume loss in both lungs with atelectasis at the bilateral lung bases including complete collapse of the right middle lobe. Superimposed pneumonia not excludable but suspicion is low. 4. Chronic mild dilation the common bile duct without evident obstructing stone or mass, likely related to prior cholecystectomy but would correlate with liver function tests. CT Brain Angiography 12/13/24 11:34 IMPRESSION: 1. Normal aging brain. No acute intracranial process or abnormally enhancing brain lesions. 2. Unremarkable cerebral CT angiogram with no hemodynamic significant stenosis, thrombosis or aneurysm. Chest X-Ray 12/13/24 12:26 IMPRESSION: 1. Persistent bibasilar atelectasis and/or airspace disease. 2. No significant change from one week prior. Abdomen/Pelvis CT 12/13/24 12:45 IMPRESSION: 1. Status post right hemicolectomy with anastomotic leak at the right lower quadrant ileocolic anastomosis. 2. Moderate bibasilar atelectasis, right greater than left with mucous bony of right middle and lower lobar bronchi. Chest CTA 12/13/24 12:45 IMPRESSION: 1. No pulmonary embolus. Sensitivity is moderately decreased by motion artifact. 2. Small lung volumes with relative elevation of right hemidiaphragm. Moderate atelectasis in the inferior lungs 3. Ascites. Labs Labs: Laboratory Results - last 24 hr 12/20/24 12/20/24 12/21/24 16:40 21:38 05:46 WBC RBC Hgb Hct MCV MCH MCHC RDW Plt Count MPV Immature Gran % (Auto) Neut % (Auto) Lymph % (Auto) [place] % (Auto) Eos % (Auto) Baso % (Auto) Lymph # (Auto) [place] # (Auto) Eos # (Auto) Baso # (Auto) Abs Immat Gran (auto) Absolute Neuts (auto) Absolute Nucleated RBC Nucleated RBC % Sodium Potassium Chloride Carbon Dioxide Anion Gap BUN Creatinine Estim Creat Clear Calc Estimated GFR Glucose POC Capillary Glucose 176 H 181 H Calcium Total Bilirubin AST ALT Alkaline Phosphatase Total Protein Albumin Vancomycin Trough 18.0 12/21/24 12/21/24 12/21/24 05:47 08:29 09:17 WBC 16.6 H RBC 3.61 L Hgb 9.8 L Hct 30.9 L MCV 85.6 MCH 27.1 MCHC 31.7 L RDW 19.5 H Plt Count 594 H MPV 9.9 Immature Gran % (Auto) 0.9 H Neut % (Auto) 86.6 H Lymph % (Auto) 6.5 L [place] % (Auto) 4.3 Eos % (Auto) 1.3 Baso % (Auto) 0.4 Lymph # (Auto) 1.08 [place] # (Auto) 0.7 H Eos # (Auto) 0.2 Baso # (Auto) 0.1 Abs Immat Gran (auto) 0.15 H Absolute Neuts (auto) 14.4 H Absolute Nucleated RBC 0.050 H Nucleated RBC % 0.3 H Sodium 135 L Potassium 3.2 L Chloride 109 H Carbon Dioxide 22 Anion Gap 4 BUN 15 Creatinine 0.69 L 0.74 Estim Creat Clear Calc Not Reportable Not Reportable Estimated GFR > 60 > 60 Glucose 180 H POC Capillary Glucose 137 H Calcium 8.4 Total Bilirubin 0.6 AST 45 H ALT 32 Alkaline Phosphatase 210 H Total Protein 5.9 L Albumin 2.4 L Vancomycin Trough 12/21/24 11:48 WBC RBC Hgb Hct MCV MCH MCHC RDW Plt Count MPV Immature Gran % (Auto) Neut % (Auto) Lymph % (Auto) [place] % (Auto) Eos % (Auto) Baso % (Auto) Lymph # (Auto) [place] # (Auto) Eos # (Auto) Baso # (Auto) Abs Immat Gran (auto) Absolute Neuts (auto) Absolute Nucleated RBC Nucleated RBC % Sodium Potassium Chloride Carbon Dioxide Anion Gap BUN Creatinine Estim Creat Clear Calc Estimated GFR Glucose POC Capillary Glucose 155 H Calcium Total Bilirubin AST ALT Alkaline Phosphatase Total Protein Albumin Vancomycin Trough Quality VTE Prophylaxis VTE prophylaxis: mechanical ordered Hospitalist MIPS Advance Care Plan I have confirmed that the patient's Advanced Care Plan is present, code status is documented, or surrogate decision maker is listed in patient medical record.: Yes Medication Reconciliation I have utilized all available resources to obtain, update and review the patients current medications (includes all prescriptions, OTC, herbals, cannabis, and nutritional supplements).: Yes
[2024-12-22] VITALS (11 sets, daily range): BP systolic 134–140; BP diastolic 62–84; PULSE 68–112; RESP 16–20; TEMP 36.1–36.8; O2SAT 95–98
[2024-12-22 05:10] LABS: Hematocrit 27.3 % (37.0-47.0); Hemoglobin 8.6 g/dL (12.0-15.0); Immature Granulocyte Percent A 1.1 % (0-0.5); Lymphocytes Absolute Auto 0.97 K/mm3 (0.9-3.2); Mean Corpuscular HGB Conc 31.5 g/dl (32-36); Mean Corpuscular Hemoglobin 27.2 pg (26-34); Mean Corpuscular Volume 86.4 fl (80-100); Nucleated Red Blood Cells Absolute Auto 0.000 K/mm3 (0.0-0.012); Nucleated Red Blood Cells Perc 0.0 % (0.0-0.2); Platelet Count Result 477 k/mm3 (150-375); Red Blood Count 3.16 M/mm3 (4.2-5.4); White Blood Count 12.8 K/mm3 (4.5-10.0)
[2024-12-22 05:40] LABS: Alanine Aminotransferase 28 U/L (6-35); Albumin Level 2.2 g/dL (3.5-5.1); Alkaline Phosphatase 198 U/L (38-126); Anion Gap 4 mmol/L (4-12); Aspartate Amino Transferase 43 U/L (14-36); Bilirubin,Total 0.4 mg/dL (0.2-1.3); Blood Urea Nitrogen 14 mg/dL (7-17); Calcium 8.2 mg/dL (8.4-10.2); Carbon Dioxide 23 mmol/L (22-30); Chloride 107 mmol/L (98-107); Estimated Glomerular Filt Rate > 60; Glucose 117 mg/dL (65-110); Potassium 3.1 mmol/L (3.4-5.0); Sodium 134 mmol/L (137-145); Total Protein 5.3 g/dL (6.3-8.2)
[2024-12-22] MEDS: CENTRAL LINE FLUSH 10 ML IV PUSH ×3 (06:21→23:58)
[2024-12-22] MEDS: PIPERACILLIN/TAZOBACTAM SOD 3.375 GM in SODIUM CHLORIDE 0.9% IV 50 ML 100 ML IVPB ×5 (06:43→23:58)
[2024-12-22] MEDS: VANCOMYCIN ORAL 125 MG/2.5 ML SYRUP FEED TUBE ×3 (06:44→12:36)
[2024-12-22] MEDS: VANCOMYCIN HCL 1,000 MG in SODIUM CHLORIDE 0.9% IV 250 ML 250 MG IVPB ×2 (07:18→23:58)
[2024-12-22] MEDS: ENOXAPARIN 40 MG/0.4 ML SYRINGE SUB-Q (08:56)
[2024-12-22] MEDS: POTASSIUM CHLORIDE 20 MEQ PACKET (FOR LIQUID) 40 MEQ PO (08:56)
[2024-12-22] MEDS: PANTOPRAZOLE SODIUM IV 40 MG VIAL IV PUSH (08:56)
[2024-12-22] MEDS: FLUCONAZOLE 400 MG/NACL 200 ML 400 MG/200 ML BAG 100 MG IVPB (08:56)
--- NOTE | 2024-12-22 13:32 | P.PNGS_ITS ---
Progress Note: A&P Assessment and Plan (1) Ileocolic anastomotic leak: Code(s): K91.89 - Other postprocedural complications and disorders of digestive system Status: Acute Assessment and Plan: * WBC improved * Continue daily iodoform packing dressing changes to RLQ wound where JUHI drain was removed. * Continue IV antibiotics, ID following in suggesting IV antibiotic therapy for upwards of another 14 days total. End of therapy approximately 01/01/25 * Continue PT/OT, increase activity as tolerated (2) Protein calorie malnutrition: Qualifiers: Protein-calorie malnutrition severity: severe Qualified Code(s): E43 - Unspecified severe protein-calorie malnutrition Code(s): E46 - Unspecified protein-calorie malnutrition Status: Acute Assessment and Plan: * Tolerating a regular diet. Continue to encourage PO intake and Ensure supplements. (3) C. difficile diarrhea: Onset Date: ~04/01/24 Code(s): A04.72 - Enterocolitis due to Clostridium difficile, not specified as recurrent Status: Suspected Assessment and Plan: * Cdiff infection in March 2024. 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 * Vancomycin might need to be discontinued due to difficulties administering through mucous fistula, will assess with wound care nurses tomorrow. Subjective Subjective Date/Time Seen: 12/22/24 13:32 Interval history: Tolerating regular diet. Up in chair today. Nurse having difficulty with administering vancomycin through mucous fistula. Exam Resp: Effort & Inspection: normal respiratory effort Cardio: Rate: regular rate GI: GI Palp: Yes Soft to palpation Other: Ostomy with good output. Stoma appears pink and viable. Mucous fistula appears to be viable. Some necrotic tissue, but mostly pink. Difficult to advance red rubber catheter tubing beyond about 2 in. Saline refluxing out mucous fistula. Objective Data Vital Signs Vital Signs: Vital Signs - 24 hr 12/21/24 14:00 12/21/24 16:00 12/21/24 20:00 Temperature 97.3 F L Pulse Rate 96 93 95 Respiratory Rate 20 Blood Pressure 133/85 Pulse Oximetry 96 Oxygen Delivery 12/21/24 20:00 12/21/24 20:18 12/22/24 00:00 Temperature 96.8 F L Pulse Rate 94 98 Respiratory Rate 26 H Blood Pressure 127/77 Pulse Oximetry 98 Oxygen Delivery Room Air 12/22/24 04:00 12/22/24 06:00 12/22/24 09:37 Temperature 97.0 F L Pulse Rate 92 90 Respiratory Rate 18 Blood Pressure 140/79 Pulse Oximetry 98 95 Oxygen Delivery Room Air 12/22/24 11:53 12/22/24 12:19 Temperature Pulse Rate Respiratory Rate Blood Pressure Pulse Oximetry Oxygen Delivery Room Air Room Air Intake/Output Intake/Output: Intake & Output 12/19/24 12/20/24 12/21/24 12/22/24 23:59 23:59 23:59 23:59 Intake Total 1250 2751 3550 650 Output Total 1000 2725 2615 650 Balance 250 26 935 0 Meds/Results Medications: Active Medications Generic Name Dose Route Start Last Admin Trade Name Freq PRN Reason Stop Dose Admin Acetaminophen 650 mg 12/18/24 15:40 Acetaminophen 325 Mg Tablet PO Q4H PRN Mild Pain (1-3) or Fever Hydrocodone Bitart/Acetaminophen 1 tab 12/18/24 15:40 Hydrocodone/Acetaminophen (*Crx) 5-325 Mg Tablet PO Q4H PRN Pain Rated 4-6 Hydrocodone Bitart/Acetaminophen 1 tab 12/18/24 15:40 Hydrocodone/Acetaminophen (*Crx) 10-325 Mg Tablet PO Q6H PRN Pain Rated 7-10 Dextrose 12.5 gm 12/14/24 10:29 Dextrose 50% 25 Gm/50 Ml Syringe IV PUSH PRN PRN Hypoglycemia Protocol Enoxaparin Sodium 40 mg 12/07/24 09:00 12/22/24 08:56 Enoxaparin 40 Mg/0.4 Ml Syringe SUB-Q 40 mg DAILY CEE Administration Glucose 15 gm 12/14/24 10:29 Glucose Oral Gel 15 Gm Of Glucse In 37.5 Gm Tube PO PRN PRN Hypoglycemia Protocol Dextrose 1,000 mls @ 100 mls/hr 12/14/24 10:29 Dextrose 5% 1,000 Ml IVPB PRN PRN Hypoglycemia Protocol Piperacillin Sod/Tazobactam 50 mls @ 100 mls/hr 12/17/24 14:30 12/22/24 12:36 Sod 3.375 gm/ Sodium Chloride IVPB 100 mls/hr Q6HR CEE Administration Fluconazole 400 mg in 200 mls @ 100 mls/hr 12/19/24 13:30 12/22/24 08:56 Diflucan 400 Mg/Nacl 200 Ml IVPB 100 mls/hr DAILY CEE Administration Vancomycin HCl 1,000 mg/ 250 mls @ 250 mls/hr 12/21/24 07:00 12/22/24 07:18 Sodium Chloride IVPB 250 mls/hr Q12H CEE Administration Insulin Aspart 3 - 6 units 12/22/24 08:00 12/22/24 12:37 Insulin Aspart (*Bkc) 100 Units/Ml SUB-Q Not Given TIDWM [facility] Protocol Naloxone HCl 0.1 mg 12/06/24 17:15 Naloxone Hcl 0.4 Mg/Ml Vial IV PUSH Q2M PRN Opiate Reversal Ondansetron HCl 4 mg 12/03/24 17:26 12/09/24 05:23 Ondansetron Inj 4 Mg/2 Ml Vial IV PUSH 4 mg Q4H PRN Administration Nausea And Vomiting Pantoprazole Sodium 40 mg 12/07/24 09:00 12/22/24 08:56 Pantoprazole Sodium Iv 40 Mg Vial IV PUSH 40 mg QAM CEE Administration Phenol 1 spray 12/07/24 10:05 Phenol/Sod Pheno [place] (*Bkc) MUCOUS MEM Q2H PRN Sore Throat Sodium Chloride 10 ml 12/07/24 14:00 12/22/24 12:37 Central Line Flush IV PUSH 10 ml Q8HR CEE Administration Sodium Chloride 10 ml 12/07/24 09:45 12/11/24 00:42 Central Line Flush IV PUSH 10 ml PRN PRN Administration with TPN bag changes Sodium Chloride 20 ml 12/07/24 09:45 12/21/24 05:30 Central Line Flush IV PUSH 20 ml PRN PRN Administration after blood draws Vancomycin HCl 125 mg 12/18/24 18:00 12/22/24 12:36 Vancomycin Oral 125 Mg/2.5 Ml Syrup FEED TUBE 125 mg Q6HR CEE Administration Radiology Results: ITS Impressions Renal Ultrasound 12/04/24 21:30 Impression: 1: Unremarkable renal ultrasound. No stones, masses or hydronephrosis. Pulmonary Perfusion Imaging 12/05/24 18:55 IMPRESSION: 1: Normal perfusion scan. Probable shallow lung volumes. Recommend correlation with chest x-ray.. Chest/Abdomen/Pelvis CT 12/10/24 10:51 IMPRESSION: 1. Small amount of likely residual free intraperineal gas and fluid post likely revision of an ileocolic anastomosis and placement of a surgical drain. No evident organized abscess or extraluminal contrast to suggest residual anastomotic leak. 2. Wall thickening along the sigmoid colon consistent with colitis infectious or inflammatory in etiology. Differential would also include residual reactive edema related to the prior anastomotic leak and recent surgery. 3. Volume loss in both lungs with atelectasis at the bilateral lung bases including complete collapse of the right middle lobe. Superimposed pneumonia not excludable but suspicion is low. 4. Chronic mild dilation the common bile duct without evident obstructing stone or mass, likely related to prior cholecystectomy but would correlate with liver function tests. CT Brain Angiography 12/13/24 11:34 IMPRESSION: 1. Normal aging brain. No acute intracranial process or abnormally enhancing brain lesions. 2. Unremarkable cerebral CT angiogram with no hemodynamic significant stenosis, thrombosis or aneurysm. Chest X-Ray 12/13/24 12:26 IMPRESSION: 1. Persistent bibasilar atelectasis and/or airspace disease. 2. No significant change from one week prior. Abdomen/Pelvis CT 12/13/24 12:45 IMPRESSION: 1. Status post right hemicolectomy with anastomotic leak at the right lower quadrant ileocolic anastomosis. 2. Moderate bibasilar atelectasis, right greater than left with mucous bony of right middle and lower lobar bronchi. Chest CTA 12/13/24 12:45 IMPRESSION: 1. No pulmonary embolus. Sensitivity is moderately decreased by motion artifact. 2. Small lung volumes with relative elevation of right hemidiaphragm. Moderate atelectasis in the inferior lungs 3. Ascites. Labs Labs: Laboratory Results - last 24 hr 12/21/24 12/21/24 12/22/24 17:16 19:57 04:56 WBC 12.8 H RBC 3.16 L Hgb 8.6 L Hct 27.3 L MCV 86.4 MCH 27.2 MCHC 31.5 L RDW 19.4 H Plt Count 477 H MPV 9.8 Immature Gran % (Auto) 1.1 H Neut % (Auto) 83.4 H Lymph % (Auto) 7.6 L [place] % (Auto) 5.2 Eos % (Auto) 2.2 Baso % (Auto) 0.5 Lymph # (Auto) 0.97 [place] # (Auto) 0.7 H Eos # (Auto) 0.3 Baso # (Auto) 0.1 Abs Immat Gran (auto) 0.14 H Absolute Neuts (auto) 10.7 H Absolute Nucleated RBC 0.000 Nucleated RBC % 0.0 Sodium 134 L Potassium 3.1 L Chloride 107 Carbon Dioxide 23 Anion Gap 4 BUN 14 Creatinine 0.68 L Estim Creat Clear Calc Not Reportable Estimated GFR > 60 Glucose 117 H POC Capillary Glucose 138 H 145 H Calcium 8.2 L Total Bilirubin 0.4 AST 43 H ALT 28 Alkaline Phosphatase 198 H Total Protein 5.3 L Albumin 2.2 L 12/22/24 12/22/24 08:29 12:05 WBC RBC Hgb Hct MCV MCH MCHC RDW Plt Count MPV Immature Gran % (Auto) Neut % (Auto) Lymph % (Auto) [place] % (Auto) Eos % (Auto) Baso % (Auto) Lymph # (Auto) [place] # (Auto) Eos # (Auto) Baso # (Auto) Abs Immat Gran (auto) Absolute Neuts (auto) Absolute Nucleated RBC Nucleated RBC % Sodium Potassium Chloride Carbon Dioxide Anion Gap BUN Creatinine Estim Creat Clear Calc Estimated GFR Glucose POC Capillary Glucose 115 H 129 H Calcium Total Bilirubin AST ALT Alkaline Phosphatase Total Protein Albumin
--- NOTE | 2024-12-22 14:59 | P.PNIM_ITS ---
Progress Note: A&P Assessment and Plan (1) History of partial colectomy: Code(s): Z90.49 - Acquired absence of other specified parts of digestive tract Status: Resolved (2) Ileocolic anastomotic leak: Code(s): K91.89 - Other postprocedural complications and disorders of digestive system Status: Acute (3) Acute blood loss anemia: Code(s): D62 - Acute posthemorrhagic anemia Status: Acute (4) Acute hypoxemic respiratory failure: Code(s): J96.01 - Acute respiratory failure with hypoxia Status: Acute Plan 64 y/o F with PMH of cancer the right colon S/P right colectomy, thrombosis of the mesenteric vein, WILL, diverticulitis, rhabdomyolysis (2021), hyperlipidemia and hypertension presented here on 12/03 with difficulty urinating. Previously underwent a hand assisted laparoscopic right colectomy with extensive adhesiolysis, mobilization of hepatic flexure by Dr. May on 11/27/24. Discharge on postop day 2 as she was doing well. At home she has had worsening abdominal pain, constipation. On readmission she has had a lengthy hospital course, on 12/06 undergoing a exploratory laparotomy with ileocolic resection with [id number] ileo colic anastomosis drainage of intra-abdominal abscess with placement of wound VAC. Due to bile in JUHI drains she had a repeat abdomen pelvis CT with water-soluble oral contrast demonstrating right hemicolectomy with anastomotic leak. On 12/13/2024 she underwent re-exploration with ileocolic resection with end ileostomy and mucous fistula creation and placement of wound VAC within subcutaneous space measuring 12 cm x 3 cm. General surgery managing wounds, wound VAC, JUHI drain. Currently on TPN. Wound care per surgery and unit protocol and wound care. Next wound VAC Saturday 12/23. Malnutrition: Related to surgery, continue TPN. NG tube in place which is clamped. Started on clear liquid per General surgery. This has been advanced to full liquid now. NG has been removed 12/17/2024 Sepsis: Monitor leukocytosis, tachypnea, tachycardia. Overall trend of leukocytosis has peaked at 19.9 on 12/08/2024, currently improving to 12. Continue to monitor along with procalcitonin. Infectious Disease consulted, continue zosyn, fluconazole, vancomycin p.o. 12/04/2024 blood culture x2 negative, final. vancomycin oral needs to transition to administration through mucous fistula- difficulty administering, surgery to be notified C diff colitis: Appreciate ID recommendations, currently on p.o. vancomycin total 3 weeks via ostomy. Post hemorrhagic anemia: Monitor daily hemoglobin, stable. Restart Lovenox 40 mg subQ q.day for DVT prophylaxis when okay by surgery. Hypocalcemia: After correction for hypoalbuminemia, 8.1. Continue to monitor. Elevated blood glucose readings: HbA1c 6.0%. Accu-Cheks q.6 hours with hypoglycemia protocol and low-dose insulin sliding scale. Acute hypoxic respiratory failure: Patient weaned to room air on 12/15/2024. Due to atelectasis, CTA chest did not demonstrate pneumonia/PE. Continue incentive spirometer and EzPAP q.i.d.. Mobilize as soon as possible. Acute kidney injury and urinary retention: Could be due to hypovolemia, anemia, urinary retention, sepsis, contrast exposure. DARRYL has resolved. Nephrology signed off. Limon catheter remains due to surgery and immobility. Hypertension: [employer] antihypertensives on hold. Monitor blood pressure. Anemia hemoglobin down to 6.6 12/18/2024 1 unit PRBC. Now stable at 8.8. DVT prophylaxis: SCDs. Lovenox 40 mg daily currently on hold due to anemia Nutrition: NPO. TPN. Prophylaxis: Protonix 40 mg IV q.a.m. for ulcer prophylaxis. PT/OT consulted Right upper extremity PICC line Deconditioning, PT/OT as appropriate per General surgery team. EzPAP, incentive spirometer. Patient wishes to be full code. Prior to admission she lives at home and was independent. Subjective Date/time seen: 12/22/24 14:59 Review of Systems Review of Systems: All systems reviewed & are unremarkable except as noted in HPI and below (Subjective) Exam Narrative: GENERAL: Alert and oriented x3, not in acute distress HEAD: Normal with no signs of head trauma. EYES: EOMI, conjunctiva normal ENT: Hearing grossly intact LUNGS: Nonlabored breathing. No adventitious sounds HEART: [Regular rate and rhythm] ABD: [Soft], mildly distended, mild tenderness, surgical incision with wound VAC, clean dry and intact. Colostomy and RLQ stoma noted. EXT: Normal range of motion SKIN: [No rashes or lesions.] NEURO: [Alert and oriented x 3. No gross focal sensory or strength deficits.] PSYCH: Normal affect Const: General: comfortable and no acute distress Other: A&O x3 HENMT: Face/Nose/Sinus: Normal nares present Mouth: Yes moist mucous membranes and Yes dry mucous membranes Eyes: General: appearance normal, both eyes and all related structures Sclera: sclerae normal Pupils: Equal, round and reactive pupils present EOM: EOMs intact bilaterally Neck: Neck: supple Resp: Effort & Inspection: normal respiratory effort Auscultation: clear to auscultation bilaterally and crackles Other: Slowly decreased breath sounds at bilateral bases, no crackles/wheezing/rhonchi Cardio: Rate: regular rate and tachycardic Rhythm: regular rhythm Heart sounds: no gallops and no murmurs Other: S1-S2 present without murmur, rub, ectopy GI: Inspection: non-distended Other: Right-sided mucous fistula with serosanguineous drainage, end ileostomy with light brown serous drainage, JUHI drain with serosanguineous drainage, wound VAC intact. Urinary Catheter: Urinary Catheter: patent and draining Skin: General skin exam: normal color and no rashes or lesions noted Other: Postsurgical incision to abdomen is well approximated, sutures in place, no signs of infection Neuro: Cranial nerves: Yes Equal, round and reactive pupils present Speech: normal speech Motor exam (neuro): 5/5 motor strength present throughout Sensory Exam: normal sensation Other: Generalized weakness Extrem: General: normal to inspection and edema Other: Trace edema bilateral lower extremities Psych: Mental Status: mental status grossly normal Affect: normal affect Other: Good insight and judgment, pleasant Objective Data Vital Signs Vital Signs: Vital Signs - 24 hr 12/21/24 16:00 12/21/24 20:00 12/21/24 20:00 Temperature Pulse Rate 93 95 Respiratory Rate Blood Pressure Pulse Oximetry Oxygen Delivery Room Air 12/21/24 20:18 12/22/24 00:00 12/22/24 04:00 Temperature 96.8 F L Pulse Rate 94 98 92 Respiratory Rate 26 H Blood Pressure 127/77 Pulse Oximetry 98 Oxygen Delivery 12/22/24 06:00 12/22/24 09:37 12/22/24 11:53 Temperature 97.0 F L Pulse Rate 90 Respiratory Rate 18 Blood Pressure 140/79 Pulse Oximetry 98 95 Oxygen Delivery Room Air Room Air 12/22/24 12:19 Temperature Pulse Rate Respiratory Rate Blood Pressure Pulse Oximetry Oxygen Delivery Room Air Intake/Output Intake/Output: Intake & Output 12/19/24 12/20/24 12/21/24 12/22/24 23:59 23:59 23:59 23:59 Intake Total 1250 2751 3550 650 Output Total 1000 2725 2615 650 Balance 250 26 935 0 Meds/Results Medications: Active Medications Generic Name Dose Route Start Last Admin Trade Name Freq PRN Reason Stop Dose Admin Acetaminophen 650 mg 12/18/24 15:40 Acetaminophen 325 Mg Tablet PO Q4H PRN Mild Pain (1-3) or Fever Hydrocodone Bitart/Acetaminophen 1 tab 12/18/24 15:40 Hydrocodone/Acetaminophen (*Crx) 5-325 Mg Tablet PO Q4H PRN Pain Rated 4-6 Hydrocodone Bitart/Acetaminophen 1 tab 12/18/24 15:40 Hydrocodone/Acetaminophen (*Crx) 10-325 Mg Tablet PO Q6H PRN Pain Rated 7-10 Dextrose 12.5 gm 12/14/24 10:29 Dextrose 50% 25 Gm/50 Ml Syringe IV PUSH PRN PRN Hypoglycemia Protocol Enoxaparin Sodium 40 mg 12/07/24 09:00 12/22/24 08:56 Enoxaparin 40 Mg/0.4 Ml Syringe SUB-Q 40 mg DAILY CEE Administration Glucose 15 gm 12/14/24 10:29 Glucose Oral Gel 15 Gm Of Glucse In 37.5 Gm Tube PO PRN PRN Hypoglycemia Protocol Dextrose 1,000 mls @ 100 mls/hr 12/14/24 10:29 Dextrose 5% 1,000 Ml IVPB PRN PRN Hypoglycemia Protocol Piperacillin Sod/Tazobactam 50 mls @ 100 mls/hr 12/17/24 14:30 12/22/24 12:36 Sod 3.375 gm/ Sodium Chloride IVPB 100 mls/hr Q6HR CEE Administration Fluconazole 400 mg in 200 mls @ 100 mls/hr 12/19/24 13:30 12/22/24 08:56 Diflucan 400 Mg/Nacl 200 Ml IVPB 100 mls/hr DAILY CEE Administration Vancomycin HCl 1,000 mg/ 250 mls @ 250 mls/hr 12/21/24 07:00 12/22/24 07:18 Sodium Chloride IVPB 250 mls/hr Q12H CEE Administration Insulin Aspart 3 - 6 units 12/22/24 08:00 12/22/24 12:37 Insulin Aspart (*Bkc) 100 Units/Ml SUB-Q Not Given TIDWM [facility] Protocol Lorazepam 1 mg 12/22/24 14:58 Lorazepam (*Crx) 1 Mg Tablet PO BID PRN Anxiety Naloxone HCl 0.1 mg 12/06/24 17:15 Naloxone Hcl 0.4 Mg/Ml Vial IV PUSH Q2M PRN Opiate Reversal Ondansetron HCl 4 mg 12/03/24 17:26 12/09/24 05:23 Ondansetron Inj 4 Mg/2 Ml Vial IV PUSH 4 mg Q4H PRN Administration Nausea And Vomiting Pantoprazole Sodium 40 mg 12/07/24 09:00 12/22/24 08:56 Pantoprazole Sodium Iv 40 Mg Vial IV PUSH 40 mg QAM CEE Administration Phenol 1 spray 12/07/24 10:05 Phenol/Sod Pheno [place] Salomon (*Bkc) MUCOUS MEM Q2H PRN Sore Throat Sodium Chloride 10 ml 12/07/24 14:00 12/22/24 12:37 Central Line Flush IV PUSH 10 ml Q8HR CEE Administration Sodium Chloride 10 ml 12/07/24 09:45 12/11/24 00:42 Central Line Flush IV PUSH 10 ml PRN PRN Administration with TPN bag changes Sodium Chloride 20 ml 12/07/24 09:45 12/21/24 05:30 Central Line Flush IV PUSH 20 ml PRN PRN Administration after blood draws Vancomycin HCl 125 mg 12/18/24 18:00 12/22/24 12:36 Vancomycin Oral 125 Mg/2.5 Ml Syrup FEED TUBE 125 mg Q6HR CEE Administration Radiology Results: ITS Impressions Renal Ultrasound 12/04/24 21:30 Impression: 1: Unremarkable renal ultrasound. No stones, masses or hydronephrosis. Pulmonary Perfusion Imaging 12/05/24 18:55 IMPRESSION: 1: Normal perfusion scan. Probable shallow lung volumes. Recommend correlation with chest x-ray.. Chest/Abdomen/Pelvis CT 12/10/24 10:51 IMPRESSION: 1. Small amount of likely residual free intraperineal gas and fluid post likely revision of an ileocolic anastomosis and placement of a surgical drain. No evident organized abscess or extraluminal contrast to suggest residual smiley stomotic leak. 2. Wall thickening along the sigmoid colon consistent with colitis infectious or inflammatory in etiology. Differential would also include residual reactive edema related to the prior anastomotic leak and recent surgery. 3. Volume loss in both lungs with atelectasis at the bilateral lung bases including complete collapse of the right middle lobe. Superimposed pneumonia not excludable but suspicion is low. 4. Chronic mild dilation the common bile duct without evident obstructing stone or mass, likely related to prior cholecystectomy but would correlate with liver function tests. CT Brain Angiography 12/13/24 11:34 IMPRESSION: 1. Normal aging brain. No acute intracranial process or abnormally enhancing brain lesions. 2. Unremarkable cerebral CT angiogram with no hemodynamic significant stenosis, thrombosis or aneurysm. Chest X-Ray 12/13/24 12:26 IMPRESSION: 1. Persistent bibasilar atelectasis and/or airspace disease. 2. No significant change from one week prior. Abdomen/Pelvis CT 12/13/24 12:45 IMPRESSION: 1. Status post right hemicolectomy with anastomotic leak at the right lower quadrant ileocolic anastomosis. 2. Moderate bibasilar atelectasis, right greater than left with mucous bony of right middle and lower lobar bronchi. Chest CTA 12/13/24 12:45 IMPRESSION: 1. No pulmonary embolus. Sensitivity is moderately decreased by motion artifact. 2. Small lung volumes with relative elevation of right hemidiaphragm. Moderate atelectasis in the inferior lungs 3. Ascites. Labs Labs: Laboratory Results - last 24 hr 12/21/24 12/21/24 12/22/24 17:16 19:57 04:56 WBC 12.8 H RBC 3.16 L Hgb 8.6 L Hct 27.3 L MCV 86.4 MCH 27.2 MCHC 31.5 L RDW 19.4 H Plt Count 477 H MPV 9.8 Immature Gran % (Auto) 1.1 H Neut % (Auto) 83.4 H Lymph % (Auto) 7.6 L [place] % (Auto) 5.2 Eos % (Auto) 2.2 Baso % (Auto) 0.5 Lymph # (Auto) 0.97 [place] # (Auto) 0.7 H Eos # (Auto) 0.3 Baso # (Auto) 0.1 Abs Immat Gran (auto) 0.14 H Absolute Neuts (auto) 10.7 H Absolute Nucleated RBC 0.000 Nucleated RBC % 0.0 Sodium 134 L Potassium 3.1 L Chloride 107 Carbon Dioxide 23 Anion Gap 4 BUN 14 Creatinine 0.68 L Estim Creat Clear Calc Not Reportable Estimated GFR > 60 Glucose 117 H POC Capillary Glucose 138 H 145 H Calcium 8.2 L Total Bilirubin 0.4 AST 43 H ALT 28 Alkaline Phosphatase 198 H Total Protein 5.3 L Albumin 2.2 L 12/22/24 12/22/24 08:29 12:05 WBC RBC Hgb Hct MCV MCH MCHC RDW Plt Count MPV Immature Gran % (Auto) Neut % (Auto) Lymph % (Auto) [place] % (Auto) Eos % (Auto) Baso % (Auto) Lymph # (Auto) [place] # (Auto) Eos # (Auto) Baso # (Auto) Abs Immat Gran (auto) Absolute Neuts (auto) Absolute Nucleated RBC Nucleated RBC % Sodium Potassium Chloride Carbon Dioxide Anion Gap BUN Creatinine Estim Creat Clear Calc Estimated GFR Glucose POC Capillary Glucose 115 H 129 H Calcium Total Bilirubin AST ALT Alkaline Phosphatase Total Protein Albumin Quality VTE Prophylaxis VTE prophylaxis: mechanical ordered Hospitalist MIPS Advance Care Plan I have confirmed that the patient's Advanced Care Plan is present, code status is documented, or surrogate decision maker is listed in patient medical record.: Yes Medication Reconciliation I have utilized all available resources to obtain, update and review the patients current medications (includes all prescriptions, OTC, herbals, cannabis, and nutritional supplements).: Yes
--- NOTE | 2024-12-22 15:48 | PC.NURSE ---
Patient is receiving oral vancomycin thru a mucus fistula on right middle abdomen TID. When administering vancomycin, this nurse has experienced resistance advancing the tubing and medication is not absorbing into the fistula. Dr Burch was contacted and attempted to clear possible obstruction by inserting catheter and manually widening fistula opening. Tubing is still not advancing after procedure, unable to administer vancomycin thru fistula at this time. Provider aware.
[2024-12-23] VITALS (9 sets, daily range): BP systolic 138–149; BP diastolic 81–93; PULSE 83–110; RESP 18–20; TEMP 36.1–36.8; O2SAT 96–99
[2024-12-23] MEDS: CENTRAL LINE FLUSH 10 ML IV PUSH ×2 (04:52→12:59)
[2024-12-23] MEDS: PIPERACILLIN/TAZOBACTAM SOD 3.375 GM in SODIUM CHLORIDE 0.9% IV 50 ML 100 ML IVPB ×3 (04:52→17:24)
[2024-12-23 05:06] LABS: Hematocrit 27.4 % (37.0-47.0); Hemoglobin 8.4 g/dL (12.0-15.0); Immature Granulocyte Percent A 1.3 % (0-0.5); Lymphocytes Absolute Auto 1.00 K/mm3 (0.9-3.2); Mean Corpuscular HGB Conc 30.7 g/dl (32-36); Mean Corpuscular Hemoglobin 26.8 pg (26-34); Mean Corpuscular Volume 87.5 fl (80-100); Nucleated Red Blood Cells Absolute Auto 0.000 K/mm3 (0.0-0.012); Nucleated Red Blood Cells Perc 0.0 % (0.0-0.2); Platelet Count Result 476 k/mm3 (150-375); Red Blood Count 3.13 M/mm3 (4.2-5.4); White Blood Count 11.2 K/mm3 (4.5-10.0)
[2024-12-23 05:28] LABS: Alanine Aminotransferase 26 U/L (6-35); Albumin Level 2.3 g/dL (3.5-5.1); Alkaline Phosphatase 189 U/L (38-126); Anion Gap 3 mmol/L (4-12); Aspartate Amino Transferase 37 U/L (14-36); Bilirubin,Total 0.4 mg/dL (0.2-1.3); Blood Urea Nitrogen 13 mg/dL (7-17); Calcium 8.3 mg/dL (8.4-10.2); Carbon Dioxide 23 mmol/L (22-30); Chloride 106 mmol/L (98-107); Estimated Glomerular Filt Rate > 60; Glucose 123 mg/dL (65-110); Potassium 3.3 mmol/L (3.4-5.0); Sodium 132 mmol/L (137-145); Total Protein 5.5 g/dL (6.3-8.2)
[2024-12-23] MEDS: ENOXAPARIN 40 MG/0.4 ML SYRINGE SUB-Q (10:11)
[2024-12-23] MEDS: PANTOPRAZOLE SODIUM IV 40 MG VIAL IV PUSH (10:11)
[2024-12-23] MEDS: POTASSIUM CHLORIDE 20 MEQ PACKET (FOR LIQUID) 40 MEQ PO (10:12)
[2024-12-23] MEDS: FLUCONAZOLE 400 MG/NACL 200 ML 400 MG/200 ML BAG 100 MG IVPB (10:13)
--- NOTE | 2024-12-23 11:20 | PCNFU ---
Nutrition Follow-Up Complete: Inadequate energy intake related to altered GI function as evidenced by need for full TPN Meet estimated nutrition needs - Progressing with PO intake. Continue same goal Goal: Pt current nutrition is regular diet. Ensure Plus HP TID (350 kcal, 20 g protein each) Nutrition recommendation: No new recommendations. Continue with current nutrition care plan and orders. Agree with orders Last recorded weight is 73.1 kg. Bowel Motility: +3 BMs 12/22 Labs Reviewed: Hgb 8.4, Hct 27.4, Alb 2.3, Na 132, Cre 0.61, Glu 123 Meds Noted: Zofran Skin: Wound vac to abdomen Additional Notes: TPN is off. Pt intakes are still poor, 10% breakfast. Drinking 240 ml Ensure. Will continue to monitor. Agree with current orders. Monitoring TPN tolerance, labs, weights, GI function, diet advancement, plan of care Follow up every 3 days
--- NOTE | 2024-12-23 13:52 | PM.IMPN ---
Progress Note: A&P Assessment and Plan (1) History of partial colectomy: Code(s): Z90.49 - Acquired absence of other specified parts of digestive tract Status: Resolved (2) Ileocolic anastomotic leak: Code(s): K91.89 - Other postprocedural complications and disorders of digestive system Status: Acute (3) Acute blood loss anemia: Code(s): D62 - Acute posthemorrhagic anemia Status: Acute (4) Acute hypoxemic respiratory failure: Code(s): J96.01 - Acute respiratory failure with hypoxia Status: Acute Plan 64 y/o F with PMH of cancer the right colon S/P right colectomy, thrombosis of the mesenteric vein, WILL, diverticulitis, rhabdomyolysis (2021), hyperlipidemia and hypertension presented here on 12/03 with difficulty urinating. Previously underwent a hand assisted laparoscopic right colectomy with extensive adhesiolysis, mobilization of hepatic flexure by Dr. May on 11/27/24. Discharge on postop day 2 as she was doing well. At home she has had worsening abdominal pain, constipation. On readmission she has had a lengthy hospital course, on 12/06 undergoing a exploratory laparotomy with ileocolic resection with [id number] ileo colic anastomosis drainage of intra-abdominal abscess with placement of wound VAC. Due to bile in JUHI drains she had a repeat abdomen pelvis CT with water-soluble oral contrast demonstrating right hemicolectomy with anastomotic leak. On 12/13/2024 she underwent re-exploration with ileocolic resection with end ileostomy and mucous fistula creation and placement of wound VAC within subcutaneous space measuring 12 cm x 3 cm. General surgery managing wounds, wound VAC, JUHI drain. Currently on TPN. Wound care per surgery and unit protocol and wound care. Next wound VAC Saturday 12/23. Malnutrition: Related to surgery, continue TPN. NG tube in place which is clamped. Started on clear liquid per General surgery. This has been advanced to full liquid now. NG has been removed 12/17/2024 Sepsis: Monitor leukocytosis, tachypnea, tachycardia. Overall trend of leukocytosis has peaked at 19.9 on 12/08/2024, currently improving to 12. Continue to monitor along with procalcitonin. Infectious Disease consulted, continue zosyn, fluconazole, vancomycin p.o. 12/04/2024 blood culture x2 negative, final. vancomycin oral needs to transition to administration through mucous fistula- difficulty administering, surgery to be notified C diff colitis: Appreciate ID recommendations, p.o. vancomycin total 3 weeks via ostomy has been unable to be administered since 12/22 due to difficulty with stoma. Surgery attempted to administer through stoma yesterday but was unable to, and is currently still unable to at this time. Wound care will be seeing patient today. Consider ID re-evaluation if unable to administer p.o. vancomycin Post hemorrhagic anemia: Monitor daily hemoglobin, stable. Restart Lovenox 40 mg subQ q.day for DVT prophylaxis when okay by surgery. Hypocalcemia: After correction for hypoalbuminemia, 8.1. Continue to monitor. Elevated blood glucose readings: HbA1c 6.0%. Accu-Cheks q.6 hours with hypoglycemia protocol and low-dose insulin sliding scale. Acute hypoxic respiratory failure: Patient weaned to room air on 12/15/2024. Due to atelectasis, CTA chest did not demonstrate pneumonia/PE. Continue incentive spirometer and EzPAP q.i.d.. Mobilize as soon as possible. Acute kidney injury and urinary retention: Could be due to hypovolemia, anemia, urinary retention, sepsis, contrast exposure. DARRYL has resolved. Nephrology signed off. Limon catheter remains due to surgery and immobility. Hypertension: MANAGER DELI antihypertensives on hold. Monitor blood pressure. Anemia hemoglobin down to 6.6 12/18/2024 1 unit PRBC. Now stable at 8.8. DVT prophylaxis: SCDs. Lovenox 40 mg daily currently on hold due to anemia Nutrition: NPO. TPN. Prophylaxis: Protonix 40 mg IV q.a.m. for ulcer prophylaxis. PT/OT consulted Right upper extremity PICC line Deconditioning, PT/OT as appropriate per General surgery team. EzPAP, incentive spirometer. Patient wishes to be full code. Prior to admission she lives at home and was independent. Subjective Date/time seen: 12/23/24 13:52 Review of Systems Review of Systems: All systems reviewed & are unremarkable except as noted in HPI and below (Subjective) Exam Narrative: GENERAL: Alert and oriented x3, not in acute distress HEAD: Normal with no signs of head trauma. EYES: EOMI, conjunctiva normal ENT: Hearing grossly intact LUNGS: Nonlabored breathing. No adventitious sounds HEART: [Regular rate and rhythm] ABD: [Soft], mildly distended, mild tenderness, surgical incision with wound VAC, clean dry and intact. Colostomy and RLQ stoma noted. EXT: Normal range of motion SKIN: [No rashes or lesions.] NEURO: [Alert and oriented x 3. No gross focal sensory or strength deficits.] PSYCH: Normal affect Const: General: comfortable and no acute distress Other: A&O x3 HENMT: Face/Nose/Sinus: Normal nares present Mouth: Yes moist mucous membranes and Yes dry mucous membranes Eyes: General: appearance normal, both eyes and all related structures Sclera: sclerae normal Pupils: Equal, round and reactive pupils present EOM: EOMs intact bilaterally Neck: Neck: supple Resp: Effort & Inspection: normal respiratory effort Auscultation: clear to auscultation bilaterally and crackles Other: Slowly decreased breath sounds at bilateral bases, no crackles/wheezing/rhonchi Cardio: Rate: regular rate and tachycardic Rhythm: regular rhythm Heart sounds: no gallops and no murmurs Other: S1-S2 present without murmur, rub, ectopy GI: Inspection: non-distended Other: Right-sided mucous fistula with serosanguineous drainage, end ileostomy with light brown serous drainage, JUHI drain with serosanguineous drainage, wound VAC intact. Urinary Catheter: Urinary Catheter: patent and draining Skin: General skin exam: normal color and no rashes or lesions noted Other: Postsurgical incision to abdomen is well approximated, sutures in place, no signs of infection Neuro: Cranial nerves: Yes Equal, round and reactive pupils present Speech: normal speech Motor exam (neuro): 5/5 motor strength present throughout Sensory Exam: normal sensation Other: Generalized weakness Extrem: General: normal to inspection and edema Other: Trace edema bilateral lower extremities Psych: Mental Status: mental status grossly normal Affect: normal affect Other: Good insight and judgment, pleasant Objective Data Vital Signs Vital Signs: Vital Signs - 24 hr 12/22/24 14:00 12/22/24 16:00 12/22/24 20:00 Temperature 97.9 F Pulse Rate 68 95 Respiratory Rate 20 Blood Pressure 134/62 Pulse Oximetry 98 Oxygen Delivery Room Air 12/22/24 20:00 12/22/24 22:00 12/23/24 00:00 Temperature 98.2 F Pulse Rate 97 99 98 Respiratory Rate 16 Blood Pressure 134/84 Pulse Oximetry 95 Oxygen Delivery 12/23/24 04:00 12/23/24 05:48 Temperature 97.9 F Pulse Rate 88 94 Respiratory Rate 20 Blood Pressure 138/81 Pulse Oximetry 96 Oxygen Delivery Intake/Output Intake/Output: Intake & Output 12/20/24 12/21/24 12/22/24 12/23/24 23:59 23:59 23:59 23:59 Intake Total 2751 3550 1950 2177 Output Total 2725 2615 1250 620 Balance 26 916 863 2450 Meds/Results Medications: Active Medications Generic Name Dose Route Start Last Admin Trade Name Freq PRN Reason Stop Dose Admin Acetaminophen 650 mg 12/18/24 15:40 Acetaminophen 325 Mg Tablet PO Q4H PRN Mild Pain (1-3) or Fever Hydrocodone Bitart/Acetaminophen 1 tab 12/18/24 15:40 Hydrocodone/Acetaminophen (*Crx) 5-325 Mg Tablet PO Q4H PRN Pain Rated 4-6 Hydrocodone Bitart/Acetaminophen 1 tab 12/18/24 15:40 Hydrocodone/Acetaminophen (*Crx) 10-325 Mg Tablet PO Q6H PRN Pain Rated 7-10 Dextrose 12.5 gm 12/14/24 10:29 Dextrose 50% 25 Gm/50 Ml Syringe IV PUSH PRN PRN Hypoglycemia Protocol Enoxaparin Sodium 40 mg 12/07/24 09:00 12/23/24 10:11 Enoxaparin 40 Mg/0.4 Ml Syringe SUB-Q 40 mg DAILY CEE Administration Glucose 15 gm 12/14/24 10:29 Glucose Oral Gel 15 Gm Of Glucse In 37.5 Gm Tube PO PRN PRN Hypoglycemia Protocol Dextrose 1,000 mls @ 100 mls/hr 12/14/24 10:29 Dextrose 5% 1,000 Ml IVPB PRN PRN Hypoglycemia Protocol Piperacillin Sod/Tazobactam 50 mls @ 100 mls/hr 12/17/24 14:30 12/23/24 12:57 Sod 3.375 gm/ Sodium Chloride IVPB 01/01/25 23:59 100 mls/hr Q6HR CEE Administration Fluconazole 400 mg in 200 mls @ 100 mls/hr 12/19/24 13:30 12/23/24 10:13 Diflucan 400 Mg/Nacl 200 Ml IVPB 100 mls/hr DAILY CEE Administration Vancomycin HCl 1,000 mg/ 250 mls @ 250 mls/hr 12/23/24 01:00 12/22/24 23:58 Sodium Chloride IVPB 01/01/25 23:59 250 mls/hr Q18H CEE Administration Insulin Aspart 3 - 6 units 12/22/24 08:00 12/23/24 12:57 Insulin Aspart (*Bkc) 100 Units/Ml SUB-Q Not Given TIDWM [facility] Protocol Lorazepam 1 mg 12/22/24 14:58 Lorazepam (*Crx) 1 Mg Tablet PO BID PRN Anxiety Naloxone HCl 0.1 mg 12/06/24 17:15 Naloxone Hcl 0.4 Mg/Ml Vial IV PUSH Q2M PRN Opiate Reversal Ondansetron HCl 4 mg 12/03/24 17:26 12/09/24 05:23 Ondansetron Inj 4 Mg/2 Ml Vial IV PUSH 4 mg Q4H PRN Administration Nausea And Vomiting Pantoprazole Sodium 40 mg 12/07/24 09:00 12/23/24 10:11 Pantoprazole Sodium Iv 40 Mg Vial IV PUSH 40 mg QAM CEE Administration Phenol 1 spray 12/07/24 10:05 Phenol/Sod Pheno [place] Sal[place] (*Bkc) MUCOUS MEM Q2H PRN Sore Throat Sodium Chloride 10 ml 12/07/24 14:00 12/23/24 12:59 Central Line Flush IV PUSH 10 ml Q8HR CEE Administration Sodium Chloride 10 ml 12/07/24 09:45 12/11/24 00:42 Central Line Flush IV PUSH 10 ml PRN PRN Administration with TPN bag changes Sodium Chloride 20 ml 12/07/24 09:45 12/21/24 05:30 Central Line Flush IV PUSH 20 ml PRN PRN Administration after blood draws Vancomycin HCl 125 mg 12/18/24 18:00 12/23/24 11:32 Vancomycin Oral 125 Mg/2.5 Ml Syrup FEED TUBE 01/08/25 23:59 Not Given Q6HR [facility] Radiology Results: ITS Impressions Renal Ultrasound 12/04/24 21:30 Impression: 1: Unremarkable renal ultrasound. No stones, masses or hydronephrosis. Pulmonary Perfusion Imaging 12/05/24 18:55 IMPRESSION: 1: Normal perfusion scan. Probable shallow lung volumes. Recommend correlation with chest x-ray.. Chest/Abdomen/Pelvis CT 12/10/24 10:51 IMPRESSION: 1. Small amount of likely residual free intraperineal gas and fluid post likely revision of an ileocolic anastomosis and placement of a surgical drain. No evident organized abscess or extraluminal contrast to suggest residual anastomotic leak. 2. Wall thickening along the sigmoid colon consistent with colitis infectious or inflammatory in etiology. Differential would also include residual reactive edema related to the prior anastomotic leak and recent surgery. 3. Volume loss in both lungs with atelectasis at the bilateral lung bases including complete collapse of the right middle lobe. Superimposed pneumonia not excludable but suspicion is low. 4. Chronic mild dilation the common bile duct without evident obstructing stone or mass, likely related to prior cholecystectomy but would correlate with liver function tests. CT Brain Angiography 12/13/24 11:34 IMPRESSION: 1. Normal aging brain. No acute intracranial process or abnormally enhancing brain lesions. 2. Unremarkable cerebral CT angiogram with no hemodynamic significant stenosis, thrombosis or aneurysm. Chest X-Ray 12/13/24 12:26 IMPRESSION: 1. Persistent bibasilar atelectasis and/or airspace disease. 2. No significant change from one week prior. Abdomen/Pelvis CT 12/13/24 12:45 IMPRESSION: 1. Status post right hemicolectomy with anastomotic leak at the right lower quadrant ileocolic anastomosis. 2. Moderate bibasilar atelectasis, right greater than left with mucous bony of right middle and lower lobar bronchi. Chest CTA 12/13/24 12:45 IMPRESSION: 1. No pulmonary embolus. Sensitivity is moderately decreased by motion artifact. 2. Small lung volumes with relative elevation of right hemidiaphragm. Moderate atelectasis in the inferior lungs 3. Ascites. Labs Labs: Laboratory Results - last 24 hr 12/22/24 12/22/24 12/22/24 17:36 18:06 19:57 WBC RBC Hgb Hct MCV MCH MCHC RDW Plt Count MPV Immature Gran % (Auto) Neut % (Auto) Lymph % (Auto) [place] % (Auto) Eos % (Auto) Baso % (Auto) Lymph # (Auto) [place] # (Auto) Eos # (Auto) Baso # (Auto) Abs Immat Gran (auto) Absolute Neuts (auto) Absolute Nucleated RBC Nucleated RBC % Sodium Potassium Chloride Carbon Dioxide Anion Gap BUN Creatinine Estim Creat Clear Calc Estimated GFR Glucose POC Capillary Glucose 144 H 149 H Calcium Total Bilirubin AST ALT Alkaline Phosphatase Total Protein Albumin Vancomycin Trough 21.1 H 12/23/24 12/23/24 12/23/24 04:50 08:16 11:36 WBC 11.2 H RBC 3.13 L Hgb 8.4 L Hct 27.4 L MCV 87.5 MCH 26.8 MCHC 30.7 L RDW 19.6 H Plt Count 476 H MPV 9.9 Immature Gran % (Auto) 1.3 H Neut % (Auto) 82.0 H Lymph % (Auto) 8.9 L [place] % (Auto) 5.2 Eos % (Auto) 2.2 Baso % (Auto) 0.4 Lymph # (Auto) 1.00 [place] # (Auto) 0.6 Eos # (Auto) 0.3 Baso # (Auto) 0.0 Abs Immat Gran (auto) 0.15 H Absolute Neuts (auto) 9.2 H Absolute Nucleated RBC 0.000 Nucleated RBC % 0.0 Sodium 132 L Potassium 3.3 L Chloride 106 Carbon Dioxide 23 Anion Gap 3 L BUN 13 Creatinine 0.61 L Estim Creat Clear Calc Not Reportable Estimated GFR > 60 Glucose 123 H POC Capillary Glucose 106 H 122 H Calcium 8.3 L Total Bilirubin 0.4 AST 37 H ALT 26 Alkaline Phosphatase 189 H Total Protein 5.5 L Albumin 2.3 L Vancomycin Trough Quality VTE Prophylaxis VTE prophylaxis: mechanical ordered Hospitalist MIPS Advance Care Plan I have confirmed that the patient's Advanced Care Plan is present, code status is documented, or surrogate decision maker is listed in patient medical record.: Yes Medication Reconciliation I have utilized all available resources to obtain, update and review the patients current medications (includes all prescriptions, OTC, herbals, cannabis, and nutritional supplements).: Yes
[2024-12-23] MEDS: HYDROcodone/acetaminophen (*CRX) 10-325 MG TABLET 1 TAB PO (15:12)
--- NOTE | 2024-12-23 15:39 | P.PNGS_ITS ---
Progress Note: A&P Assessment and Plan (1) Ileocolic anastomotic leak: Code(s): K91.89 - Other postprocedural complications and disorders of digestive system Status: Acute Assessment and Plan: * WBC improving. Tolerating a regular diet. * Wound VAC changed. Drainage in canister appears to be from leakage from the ileostomy into the wound VAC dressing. This was reinforced today and will reassess drainage tomorrow. Wound appears to be healing well. * Continue daily iodoform packing dressing changes to RLQ wound where JUHI drain was removed. * Continue IV antibiotics, ID following and suggesting IV antibiotic therapy through 01/01/25 * Continue PT/OT, increase activity as tolerated (2) Protein calorie malnutrition: Qualifiers: Protein-calorie malnutrition severity: severe Qualified Code(s): E43 - Unspecified severe protein-calorie malnutrition Code(s): E46 - Unspecified protein-calorie malnutrition Status: Acute Assessment and Plan: * Tolerating a regular diet. Continue to encourage PO intake and Ensure supplements. She is not eating much the past few days d/t poor appetite and mouth sores. Will add Orajel. (3) C. difficile diarrhea: Onset Date: ~04/01/24 Code(s): A04.72 - Enterocolitis due to Clostridium difficile, not specified as recurrent Status: Suspected Assessment and Plan: * Cdiff infection in March 2024. 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 * Still having difficulty with administering the vancomycin through the mucous fistula. Will switch to vancomycin retention enemas Q6H. Discussed with ID pharmacist. Plan I have discussed the patient's case and plan of care with Dr. Burch. Subjective Subjective Date/Time Seen: 12/23/24 15:39 Patient reports: no new complaints Interval history: Patient seen with wound care nurse today. She has some abdominal pain that is unchanged over the past few days. Pain is mostly only with movement and dressing changes. No nausea or vomiting. Tolerating a regular diet. Not eating much but taking in the Ensure supplements. She is drinking well. Exam 2 Const: General: comfortable and no acute distress Orientation/consciousness: patient oriented x3 HENMT: Other: few small crusted plaques on the tongue that are tovar/brown, no white patchy areas concerning for candidiasis GI: Inspection: non-distended GI Palp: Yes Soft to palpation, Yes Tenderness to palpation present (GI) and No Guarding due to palpation present (GI) Other: Wound VAC dressing changed. Canister has about 400 cc of light brown/yellow drainage. The right side of the dressing near the ileostomy is saturated with enteric contents that leaked under the transparent dressing, foam was removed and does not appear to have any of the light brown or yellow drainage from the base of the wound or the base of the foam packing. Midline abdominal wound with 100% pink wound bed and granulating tissue, fascia intact, no enteric contents noted in wound bed. Ostomy with good output. Stoma appears pink and viable. Mucous fistula appears to be viable. Still difficult to advance the red rubber catheter tubing beyond about 4 cm with saline refluxing out the mucous fistula. Extrem: General: no calf tenderness and edema bilateral (diffuse) Objective Data Vital Signs Vital Signs: Vital Signs - 24 hr 12/22/24 16:00 12/22/24 20:00 12/22/24 20:00 Temperature Pulse Rate 95 97 Respiratory Rate Blood Pressure Pulse Oximetry Oxygen Delivery Room Air 12/22/24 22:00 12/23/24 00:00 12/23/24 04:00 Temperature 98.2 F Pulse Rate 99 98 88 Respiratory Rate 16 Blood Pressure 134/84 Pulse Oximetry 95 Oxygen Delivery 12/23/24 05:48 12/23/24 15:36 Temperature 97.9 F 97.0 F L Pulse Rate 94 97 Respiratory Rate 20 18 Blood Pressure 138/81 144/93 H Pulse Oximetry 96 99 Oxygen Delivery Intake/Output Intake/Output: Intake & Output 12/20/24 12/21/24 12/22/24 12/23/24 23:59 23:59 23:59 23:59 Intake Total 2751 3550 1950 2177 Output Total 2725 2615 1250 620 Balance 26 193 947 6561 Meds/Results Medications: Active Medications Generic Name Dose Route Start Last Admin Trade Name Freq PRN Reason Stop Dose Admin Acetaminophen 650 mg 12/18/24 15:40 Acetaminophen 325 Mg Tablet PO Q4H PRN Mild Pain (1-3) or Fever Hydrocodone Bitart/Acetaminophen 1 tab 12/18/24 15:40 Hydrocodone/Acetaminophen (*Crx) 5-325 Mg Tablet PO Q4H PRN Pain Rated 4-6 Hydrocodone Bitart/Acetaminophen 1 tab 12/18/24 15:40 12/23/24 15:12 Hydrocodone/Acetaminophen (*Crx) 10-325 Mg Tablet PO 1 tab Q6H PRN Administration Pain Rated 7-10 Dextrose 12.5 gm 12/14/24 10:29 Dextrose 50% 25 Gm/50 Ml Syringe IV PUSH PRN PRN Hypoglycemia Protocol Enoxaparin Sodium 40 mg 12/07/24 09:00 12/23/24 10:11 Enoxaparin 40 Mg/0.4 Ml Syringe SUB-Q 40 mg DAILY CEE Administration Glucose 15 gm 12/14/24 10:29 Glucose Oral Gel 15 Gm Of Glucse In 37.5 Gm Tube PO PRN PRN Hypoglycemia Protocol Dextrose 1,000 mls @ 100 mls/hr 12/14/24 10:29 Dextrose 5% 1,000 Ml IVPB PRN PRN Hypoglycemia Protocol Piperacillin Sod/Tazobactam 50 mls @ 100 mls/hr 12/17/24 14:30 12/23/24 12:57 Sod 3.375 gm/ Sodium Chloride IVPB 01/01/25 23:59 100 mls/hr Q6HR CEE Administration Fluconazole 400 mg in 200 mls @ 100 mls/hr 12/19/24 13:30 12/23/24 10:13 Diflucan 400 Mg/Nacl 200 Ml IVPB 100 mls/hr DAILY CEE Administration Vancomycin HCl 1,000 mg/ 250 mls @ 250 mls/hr 12/23/24 01:00 12/22/24 23:58 Sodium Chloride IVPB 01/01/25 23:59 250 mls/hr Q18H CEE Administration Insulin Aspart 3 - 6 units 12/22/24 08:00 12/23/24 12:57 Insulin Aspart (*Bkc) 100 Units/Ml SUB-Q Not Given TIDWM CEE Protocol Lorazepam 1 mg 12/22/24 14:58 Lorazepam (*Crx) 1 Mg Tablet PO BID PRN Anxiety Naloxone HCl 0.1 mg 12/06/24 17:15 Naloxone Hcl 0.4 Mg/Ml Vial IV PUSH Q2M PRN Opiate Reversal Ondansetron HCl 4 mg 12/03/24 17:26 12/09/24 05:23 Ondansetron Inj 4 Mg/2 Ml Vial IV PUSH 4 mg Q4H PRN Administration Nausea And Vomiting Pantoprazole Sodium 40 mg 12/07/24 09:00 12/23/24 10:11 Pantoprazole Sodium Iv 40 Mg Vial IV PUSH 40 mg QAM CEE Administration Phenol 1 spray 12/07/24 10:05 Phenol/Sod Pheno [place] Salomon (*Bkc) MUCOUS MEM Q2H PRN Sore Throat Sodium Chloride 10 ml 12/07/24 14:00 12/23/24 12:59 Central Line Flush IV PUSH 10 ml Q8HR CEE Administration Sodium Chloride 10 ml 12/07/24 09:45 12/11/24 00:42 Central Line Flush IV PUSH 10 ml PRN PRN Administration with TPN bag changes Sodium Chloride 20 ml 12/07/24 09:45 12/21/24 05:30 Central Line Flush IV PUSH 20 ml PRN PRN Administration after blood draws Vancomycin HCl 125 mg 12/18/24 18:00 12/23/24 11:32 Vancomycin Oral 125 Mg/2.5 Ml Syrup FEED TUBE 01/08/25 23:59 Not Given Q6HR CEE Radiology Results: ITS Impressions Renal Ultrasound 12/04/24 21:30 Impression: 1: Unremarkable renal ultrasound. No stones, masses or hydronephrosis. Pulmonary Perfusion Imaging 12/05/24 18:55 IMPRESSION: 1: Normal perfusion scan. Probable shallow lung volumes. Recommend correlation with chest x-ray.. Chest/Abdomen/Pelvis CT 12/10/24 10:51 IMPRESSION: 1. Small amount of likely residual free intraperineal gas and fluid post likely revision of an ileocolic anastomosis and placement of a surgical drain. No evident organized abscess or extraluminal contrast to suggest residual anastomotic leak. 2. Wall thickening along the sigmoid colon consistent with colitis infectious or inflammatory in etiology. Differential would also include residual reactive edema related to the prior anastomotic leak and recent surgery. 3. Volume loss in both lungs with atelectasis at the bilateral lung bases including complete collapse of the right middle lobe. Superimposed pneumonia not excludable but suspicion is low. 4. Chronic mild dilation the common bile duct without evident obstructing stone or mass, likely related to prior cholecystectomy but would correlate with liver function tests. CT Brain Angiography 12/13/24 11:34 IMPRESSION: 1. Normal aging brain. No acute intracranial process or abnormally enhancing brain lesions. 2. Unremarkable cerebral CT angiogram with no hemodynamic significant stenosis, thrombosis or aneurysm. Chest X-Ray 12/13/24 12:26 IMPRESSION: 1. Persistent bibasilar atelectasis and/or airspace disease. 2. No significant change from one week prior. Abdomen/Pelvis CT 12/13/24 12:45 IMPRESSION: 1. Status post right hemicolectomy with anastomotic leak at the right lower quadrant ileocolic anastomosis. 2. Moderate bibasilar atelectasis, right greater than left with mucous bony of right middle and lower lobar bronchi. Chest CTA 12/13/24 12:45 IMPRESSION: 1. No pulmonary embolus. Sensitivity is moderately decreased by motion artifact. 2. Small lung volumes with relative elevation of right hemidiaphragm. Moderate atelectasis in the inferior lungs 3. Ascites. Labs Labs: Laboratory Results - last 24 hr 12/22/24 12/22/24 12/22/24 17:36 18:06 19:57 WBC RBC Hgb Hct MCV MCH MCHC RDW Plt Count MPV Immature Gran % (Auto) Neut % (Auto) Lymph % (Auto) [place] % (Auto) Eos % (Auto) Baso % (Auto) Lymph # (Auto) [place] # (Auto) Eos # (Auto) Baso # (Auto) Abs Immat Gran (auto) Absolute Neuts (auto) Absolute Nucleated RBC Nucleated RBC % Sodium Potassium Chloride Carbon Dioxide Anion Gap BUN Creatinine Estim Creat Clear Calc Estimated GFR Glucose POC Capillary Glucose 144 H 149 H Calcium Total Bilirubin AST ALT Alkaline Phosphatase Total Protein Albumin Vancomycin Trough 21.1 H 12/23/24 12/23/24 12/23/24 04:50 08:16 11:36 WBC 11.2 H RBC 3.13 L Hgb 8.4 L Hct 27.4 L MCV 87.5 MCH 26.8 MCHC 30.7 L RDW 19.6 H Plt Count 476 H MPV 9.9 Immature Gran % (Auto) 1.3 H Neut % (Auto) 82.0 H Lymph % (Auto) 8.9 L [place] % (Auto) 5.2 Eos % (Auto) 2.2 Baso % (Auto) 0.4 Lymph # (Auto) 1.00 [place] # (Auto) 0.6 Eos # (Auto) 0.3 Baso # (Auto) 0.0 Abs Immat Gran (auto) 0.15 H Absolute Neuts (auto) 9.2 H Absolute Nucleated RBC 0.000 Nucleated RBC % 0.0 Sodium 132 L Potassium 3.3 L Chloride 106 Carbon Dioxide 23 Anion Gap 3 L BUN 13 Creatinine 0.61 L Estim Creat Clear Calc Not Reportable Estimated GFR > 60 Glucose 123 H POC Capillary Glucose 106 H 122 H Calcium 8.3 L Total Bilirubin 0.4 AST 37 H ALT 26 Alkaline Phosphatase 189 H Total Protein 5.5 L Albumin 2.3 L Vancomycin Trough
[2024-12-23] MEDS: VANCOMYCIN HCL 1,000 MG in SODIUM CHLORIDE 0.9% IV 250 ML 250 MG IVPB (18:25)
[2024-12-23] MEDS: VANCOMYCIN ENEMA RECTAL (18:32)
--- NOTE | 2024-12-23 19:24 | P.PNINF_ITS ---
Progress Note: A&P Assessment and Plan (1) Intra-abdominal abscess post-procedure: Code(s): T81.43XA - Infection following a procedure, organ and space surgical site, initial encounter; K65.1 - Peritoneal abscess Status: Acute Assessment and Plan: As below Plan Assessment and plan (1) Intra-abdominal abscess post-procedure: Code(s): T81.43XA - Infection following a procedure, organ and space surgical site, initial encounter; K65.1 - Peritoneal abscess Status: Acute Assessment and Plan: -Abscess secondary to ileocolic anastomotic leak -Manaagement as per surgical service (2) Ileocolic anastomotic leak: Code(s): K91.89 - Other postprocedural complications and disorders of digestive system Status: Acute Assessment and Plan: -Management as per surgical service (3) History of partial colectomy: Code(s): Z90.49 - Acquired absence of other specified parts of digestive tract Status: Resolved (4) Adenocarcinoma of colon: Code(s): C18.9 - Malignant neoplasm of colon, unspecified Status: Acute Assessment and Plan: -Management as per primary service (5) Cancer of right colon: Onset Date: ~10/2024 Code(s): C18.2 - Malignant neoplasm of ascending colon Status: Acute Assessment and Plan: -Management as per primary service (6) C. difficile diarrhea: Onset Date: ~04/01/24 Code(s): A04.72 - Enterocolitis due to Clostridium difficile, not specified as recurrent Status: Inactive Assessment and Plan: -Patient has history of C.difficile infection starting in March 2024 -Has new diarrhea as of 12/12/24 Plan: - Continue Zosyn plus fluconazole and intravenous vancomycin. planned EOT 01/01/25 Follow fro thrush or oral ulcers Follow JUHI cx. Continue trial of enteric vanc via ostomy. ---Plan for C diff treatment at treatment dose seen at least for another 3 weeks. Via ostomy. d/w RN Will continue to monitor abdominal exam. Follow wounds/ wound VAC per. General surgery plans. -Management of ileocolonic anastomotic leak as per surgical service -Continue supportive measures - Patient was seen via video telehealth consultation with the assistance of staff. Chart, data, and patient independently reviewed. Patient was located at [facility] while I was located in my [place] office. Received verbal consent from patient. Subjective Date/time seen: 12/23/24 19:24 Interval history: no fever. stable. burning in mouth when taking K+. no thrush/oral ulcers. Exam Narrative: Alert. oriented x 3 new wound vac in place. Mild abdominal protuberance/ distension. No clear rebound. No rash. Objective Data Vital Signs Vital Signs: Vital Signs - 24 hr 12/22/24 20:00 12/22/24 20:00 12/22/24 22:00 Temperature 36.8 C Pulse Rate 97 99 Respiratory Rate 16 Blood Pressure 134/84 Pulse Oximetry 95 Oxygen Delivery Room Air 12/23/24 00:00 12/23/24 04:00 12/23/24 05:48 Temperature 36.6 C Pulse Rate 98 88 94 Respiratory Rate 20 Blood Pressure 138/81 Pulse Oximetry 96 Oxygen Delivery 12/23/24 08:00 12/23/24 08:00 12/23/24 12:00 Temperature Pulse Rate 97 110 H Respiratory Rate Blood Pressure Pulse Oximetry 99 Oxygen Delivery Room Air 12/23/24 15:36 12/23/24 16:00 Temperature 36.1 C L Pulse Rate 97 95 Respiratory Rate 18 Blood Pressure 144/93 H Pulse Oximetry 99 Oxygen Delivery Intake/Output Intake/Output: Intake & Output 12/20/24 12/21/24 12/22/24 12/23/24 23:59 23:59 23:59 23:59 Intake Total 2751 3550 1950 2837 Output Total 2725 2615 1250 970 Balance 26 633 328 8958 Meds/Results Medications: Active Medications Generic Name Dose Route Start Last Admin Trade Name Freq PRN Reason Stop Dose Admin Acetaminophen 650 mg 12/18/24 15:40 Acetaminophen 325 Mg Tablet PO Q4H PRN Mild Pain (1-3) or Fever Hydrocodone Bitart/Acetaminophen 1 tab 12/18/24 15:40 Hydrocodone/Acetaminophen (*Crx) 5-325 Mg Tablet PO Q4H PRN Pain Rated 4-6 Hydrocodone Bitart/Acetaminophen 1 tab 12/18/24 15:40 12/23/24 15:12 Hydrocodone/Acetaminophen (*Crx) 10-325 Mg Tablet PO 1 tab Q6H PRN Administration Pain Rated 7-10 Benzocaine 1 applic 12/23/24 15:54 Benzocaine 20% Dental Gel 9 Gm Tube BY MOUTH QID PRN Oral Pain Dextrose 12.5 gm 12/14/24 10: Dextrose 50% 25 Gm/50 Ml Syringe IV PUSH PRN PRN Hypoglycemia Protocol Enoxaparin Sodium 40 mg 12/07/24 09:00 12/23/24 10:11 Enoxaparin 40 Mg/0.4 Ml Syringe SUB-Q 40 mg DAILY CEE Administration Glucose 15 gm 12/14/24 10:29 Glucose Oral Gel 15 Gm Of Glucse In 37.5 Gm Tube PO PRN PRN Hypoglycemia Protocol Dextrose 1,000 mls @ 100 mls/hr 12/14/24 10:29 Dextrose 5% 1,000 Ml IVPB PRN PRN Hypoglycemia Protocol Piperacillin Sod/Tazobactam 50 mls @ 100 mls/hr 12/17/24 14:30 12/23/24 17:24 Sod 3.375 gm/ Sodium Chloride IVPB 01/01/25 23:59 100 mls/hr Q6HR CEE Administration Fluconazole 400 mg in 200 mls @ 100 mls/hr 12/19/24 13:30 12/23/24 10:13 Diflucan 400 Mg/Nacl 200 Ml IVPB 100 mls/hr DAILY CEE Administration Vancomycin HCl 1,000 mg/ 250 mls @ 250 mls/hr 12/23/24 01:00 12/23/24 18:25 Sodium Chloride IVPB 01/01/25 23:59 250 mls/hr Q18H CEE Administration Insulin Aspart 3 - 6 units 12/22/24 08:00 12/23/24 17:23 Insulin Aspart (*Bkc) 100 Units/Ml SUB-Q Not Given TIDWM CEE Protocol Lorazepam 1 mg 12/22/24 14:58 Lorazepam (*Crx) 1 Mg Tablet PO BID PRN Anxiety Naloxone HCl 0.1 mg 12/06/24 17:15 Naloxone Hcl 0.4 Mg/Ml Vial IV PUSH Q2M PRN Opiate Reversal Ondansetron HCl 4 mg 12/03/24 17:26 12/09/24 05:23 Ondansetron Inj 4 Mg/2 Ml Vial IV PUSH 4 mg Q4H PRN Administration Nausea And Vomiting Pantoprazole Sodium 40 mg 12/07/24 09:00 12/23/24 10:11 Pantoprazole Sodium Iv 40 Mg Vial IV PUSH 40 mg QAM CEE Administration Phenol 1 spray 12/07/24 10:05 Phenol/Sod Pheno [employer] (*Bkc) MUCOUS MEM Q2H PRN Sore Throat Sodium Chloride 10 ml 12/07/24 14:00 12/23/24 12:59 Central Line Flush IV PUSH 10 ml Q8HR CEE Administration Sodium Chloride 10 ml 12/07/24 09:45 12/11/24 00:42 Central Line Flush IV PUSH 10 ml PRN PRN Administration with TPN bag changes Sodium Chloride 20 ml 12/07/24 09:45 12/21/24 05:30 Central Line Flush IV PUSH 20 ml PRN PRN Administration after blood draws Vancomycin HCl 500 mg 12/23/24 18:00 12/23/24 18:32 Vancomycin Enema 500 Mg/500 Ml Enema RECTAL 01/08/25 16:00 500 mg Q6HR CEE Administration Radiology Results: ITS Impressions Renal Ultrasound 12/04/24 21:30 Impression: 1: Unremarkable renal ultrasound. No stones, masses or hydronephrosis. Pulmonary Perfusion Imaging 12/05/24 18:55 IMPRESSION: 1: Normal perfusion scan. Probable shallow lung volumes. Recommend correlation with chest x-ray.. Chest/Abdomen/Pelvis CT 12/10/24 10:51 IMPRESSION: 1. Small amount of likely residual free intraperineal gas and fluid post likely revision of an ileocolic anastomosis and placement of a surgical drain. No evident organized abscess or extraluminal contrast to suggest residual anastomotic leak. 2. Wall thickening along the sigmoid colon consistent with colitis infectious or inflammatory in etiology. Differential would also include residual reactive edema related to the prior anastomotic leak and recent surgery. 3. Volume loss in both lungs with atelectasis at the bilateral lung bases including complete collapse of the right middle lobe. Superimposed pneumonia not excludable but suspicion is low. 4. Chronic mild dilation the common bile duct without evident obstructing stone or mass, likely related to prior cholecystectomy but would correlate with liver function tests. CT Brain Angiography 12/13/24 11:34 IMPRESSION: 1. Normal aging brain. No acute intracranial process or abnormally enhancing brain lesions. 2. Unremarkable cerebral CT angiogram with no hemodynamic significant stenosis, thrombosis or aneurysm. Chest X-Ray 12/13/24 12:26 IMPRESSION: 1. Persistent bibasilar atelectasis and/or airspace disease. 2. No significant change from one week prior. Abdomen/Pelvis CT 12/13/24 12:45 IMPRESSION: 1. Status post right hemicolectomy with anastomotic leak at the right lower quadrant ileocolic anastomosis. 2. Moderate bibasilar atelectasis, right greater than left with mucous bony of right middle and lower lobar bronchi. Chest CTA 12/13/24 12:45 IMPRESSION: 1. No pulmonary embolus. Sensitivity is moderately decreased by motion artifact. 2. Small lung volumes with relative elevation of right hemidiaphragm. Moderate atelectasis in the inferior lungs 3. Ascites. Labs Labs: Laboratory Results - last 24 hr 12/22/24 12/23/24 12/23/24 19:57 04:50 08:16 WBC 11.2 H RBC 3.13 L Hgb 8.4 L Hct 27.4 L MCV 87.5 MCH 26.8 MCHC 30.7 L RDW 19.6 H Plt Count 476 H MPV 9.9 Immature Gran % (Auto) 1.3 H Neut % (Auto) 82.0 H Lymph % (Auto) 8.9 L [place] % (Auto) 5.2 Eos % (Auto) 2.2 Baso % (Auto) 0.4 Lymph # (Auto) 1.00 [place] # (Auto) 0.6 Eos # (Auto) 0.3 Baso # (Auto) 0.0 Abs Immat Gran (auto) 0.15 H Absolute Neuts (auto) 9.2 H Absolute Nucleated RBC 0.000 Nucleated RBC % 0.0 Sodium 132 L Potassium 3.3 L Chloride 106 Carbon Dioxide 23 Anion Gap 3 L BUN 13 Creatinine 0.61 L Estim Creat Clear Calc Not Reportable Estimated GFR > 60 Glucose 123 H POC Capillary Glucose 149 H 106 H Calcium 8.3 L Total Bilirubin 0.4 AST 37 H ALT 26 Alkaline Phosphatase 189 H Total Protein 5.5 L Albumin 2.3 L 12/23/24 12/23/24 11:36 16:53 WBC RBC Hgb Hct MCV MCH MCHC RDW Plt Count MPV Immature Gran % (Auto) Neut % (Auto) Lymph % (Auto) [place] % (Auto) Eos % (Auto) Baso % (Auto) Lymph # (Auto) [place] # (Auto) Eos # (Auto) Baso # (Auto) Abs Immat Gran (auto) Absolute Neuts (auto) Absolute Nucleated RBC Nucleated RBC % Sodium Potassium Chloride Carbon Dioxide Anion Gap BUN Creatinine Estim Creat Clear Calc Estimated GFR Glucose POC Capillary Glucose 122 H 136 H Calcium Total Bilirubin AST ALT Alkaline Phosphatase Total Protein Albumin
--- NOTE | 2024-12-23 21:31 | PCRCNOTE ---
Window of time for administration has passed. See next scheduled administration.
[2024-12-24] VITALS (10 sets, daily range): BP systolic 131–143; BP diastolic 73–89; PULSE 80–106; RESP 18; TEMP 36.6–36.9; O2SAT 97–98
[2024-12-24] MEDS: CENTRAL LINE FLUSH 10 ML IV PUSH ×4 (00:59→20:59)
[2024-12-24] MEDS: PIPERACILLIN/TAZOBACTAM SOD 3.375 GM in SODIUM CHLORIDE 0.9% IV 50 ML 100 ML IVPB ×4 (00:59→18:22)
[2024-12-24 05:05] LABS: Hematocrit 27.4 % (37.0-47.0); Hemoglobin 8.6 g/dL (12.0-15.0); Immature Granulocyte Percent A 1.1 % (0-0.5); Lymphocytes Absolute Auto 0.92 K/mm3 (0.9-3.2); Mean Corpuscular HGB Conc 31.4 g/dl (32-36); Mean Corpuscular Hemoglobin 27.1 pg (26-34); Mean Corpuscular Volume 86.4 fl (80-100); Nucleated Red Blood Cells Absolute Auto 0.000 K/mm3 (0.0-0.012); Nucleated Red Blood Cells Perc 0.0 % (0.0-0.2); Platelet Count Result 464 k/mm3 (150-375); Red Blood Count 3.17 M/mm3 (4.2-5.4); White Blood Count 12.2 K/mm3 (4.5-10.0)
[2024-12-24 05:20] LABS: Alanine Aminotransferase 25 U/L (6-35); Albumin Level 2.2 g/dL (3.5-5.1); Alkaline Phosphatase 189 U/L (38-126); Anion Gap 2 mmol/L (4-12); Aspartate Amino Transferase 41 U/L (14-36); Bilirubin,Total 0.4 mg/dL (0.2-1.3); Blood Urea Nitrogen 10 mg/dL (7-17); Calcium 8.3 mg/dL (8.4-10.2); Carbon Dioxide 25 mmol/L (22-30); Chloride 104 mmol/L (98-107); Estimated Glomerular Filt Rate > 60; Glucose 97 mg/dL (65-110); Potassium 3.0 mmol/L (3.4-5.0); Sodium 131 mmol/L (137-145); Total Protein 4.9 g/dL (6.3-8.2)
[2024-12-24] MEDS: HYDROcodone/acetaminophen (*CRX) 5-325 MG TABLET 1 TAB PO (09:32)
[2024-12-24] MEDS: ENOXAPARIN 40 MG/0.4 ML SYRINGE SUB-Q (09:33)
[2024-12-24] MEDS: PANTOPRAZOLE SODIUM IV 40 MG VIAL IV PUSH (09:33)
[2024-12-24] MEDS: FLUCONAZOLE 400 MG/NACL 200 ML 400 MG/200 ML BAG 100 MG IVPB (09:34)
[2024-12-24] MEDS: POTASSIUM CHLORIDE 20 MEQ ER TABLET 40 MEQ PO (09:39)
[2024-12-24] MEDS: BENZOCAINE 20% DENTAL GEL 9 GM TUBE 1 APPLIC BY MOUTH (10:05)
--- NOTE | 2024-12-24 10:52 | P.PNGS_ITS ---
Progress Note: A&P Assessment and Plan (1) Ileocolic anastomotic leak: Code(s): K91.89 - Other postprocedural complications and disorders of digestive system Status: Acute Assessment and Plan: * Continue wound VAC, will change again tomorrow. Drainage appears serosanguineous without any signs of enteric contents. * Continue daily iodoform packing dressing changes to RLQ wound where JUHI drain was removed. * Continue IV antibiotics, ID following and suggesting IV antibiotic therapy through 01/01/25 * Continue PT/OT, increase activity as tolerated (2) Protein calorie malnutrition: Qualifiers: Protein-calorie malnutrition severity: severe Qualified Code(s): E43 - Unspecified severe protein-calorie malnutrition Code(s): E46 - Unspecified protein-calorie malnutrition Status: Acute Assessment and Plan: * Tolerating a regular diet. Continue to encourage PO intake and Ensure supplements. She is not eating much the past few days d/t poor appetite and mouth sores. Continue Orajel before meals and good mouth care. (3) C. difficile diarrhea: Onset Date: ~04/01/24 Code(s): A04.72 - Enterocolitis due to Clostridium difficile, not specified as recurrent Status: Suspected Assessment and Plan: * Cdiff infection in March 2024. 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 * Patient unable to retain the vancomycin enemas. Will d/c for now and see what ID would recommend at this point since options are limited. Plan I have discussed the patient's case and plan of care with Dr. Burch. Subjective Subjective Date/Time Seen: 12/24/24 10:52 Patient reports: tolerating a regular diet, voiding w/o difficulty and afebrile Interval history: Patient reports intolerance to vancomycin enema. She is unable to retain the enema at all. Per nursing, the vancomycin immediately flows out as she is administering the enema. Patient denies any pain. Wound VAC canister has minimal serosanguineous drainage today. She is still not eating much due to some pain in her mouth at the sores on her tongue. Nursing just attempted to apply the Orajel this morning and is going to see if this helps prior to lunch. Exam Const: General: comfortable and no acute distress GI: Inspection: non-distended GI Palp: Yes Soft to palpation, Yes Tenderness to palpation present (GI) and No Guarding due to palpation present (GI) Auscultation: normal bowel sounds Other: Wound VAC dressing dry and intact with minimal serosanguineous drainage in the canister. Ostomy with good output. Stoma appears pink and viable. Mucous fistula appears to be viable. JUHI drain with scant serosanguineous drainage. Objective Data Vital Signs Vital Signs: Vital Signs - 24 hr 12/23/24 12:00 12/23/24 15:36 12/23/24 16:00 Temperature 97.0 F L Pulse Rate 110 H 97 95 Respiratory Rate 18 Blood Pressure 144/93 H Pulse Oximetry 99 Oxygen Delivery 12/23/24 20:00 12/23/24 20:00 12/23/24 22:00 Temperature 98.2 F Pulse Rate 87 83 Respiratory Rate 18 Blood Pressure 149/83 H Pulse Oximetry 99 Oxygen Delivery Room Air 12/24/24 00:00 12/24/24 04:00 12/24/24 06:00 Temperature 98.0 F Pulse Rate 80 91 87 Respiratory Rate 18 Blood Pressure 143/89 H Pulse Oximetry 97 Oxygen Delivery Intake/Output Intake/Output: Intake & Output 12/21/24 12/22/24 12/23/24 12/24/24 23:59 23:59 23:59 23:59 Intake Total 3550 1950 3087 1030 Output Total 2615 6605 869 0454 Balance 716 483 3450 -570 Meds/Results Medications: Active Medications Generic Name Dose Route Start Last Admin Trade Name Freq PRN Reason Stop Dose Admin Acetaminophen 650 mg 12/18/24 15:40 Acetaminophen 325 Mg Tablet PO Q4H PRN Mild Pain (1-3) or Fever Hydrocodone Bitart/Acetaminophen 1 tab 12/18/24 15:40 12/24/24 09:32 Hydrocodone/Acetaminophen (*Crx) 5-325 Mg Tablet PO 1 tab Q4H PRN Administration Pain Rated 4-6 Hydrocodone Bitart/Acetaminophen 1 tab 12/18/24 15:40 12/23/24 15:12 Hydrocodone/Acetaminophen (*Crx) 10-325 Mg Tablet PO 1 tab Q6H PRN Administration Pain Rated 7-10 Benzocaine 1 applic 12/23/24 15:54 12/24/24 10:05 Benzocaine 20% Dental Gel 9 Gm Tube BY MOUTH 1 applic QID PRN Administration Oral Pain Dextrose 12.5 gm 12/14/24 10:29 Dextrose 50% 25 Gm/50 Ml Syringe IV PUSH PRN PRN Hypoglycemia Protocol Enoxaparin Sodium 40 mg 12/07/24 09:00 12/24/24 09:33 Enoxaparin 40 Mg/0.4 Ml Syringe SUB-Q 40 mg DAILY CEE Administration Glucose 15 gm 12/14/24 10:29 Glucose Oral Gel 15 Gm Of Glucse In 37.5 Gm Tube PO PRN PRN Hypoglycemia Protocol Dextrose 1,000 mls @ 100 mls/hr 12/14/24 10:29 Dextrose 5% 1,000 Ml IVPB PRN PRN Hypoglycemia Protocol Piperacillin Sod/Tazobactam 50 mls @ 100 mls/hr 12/17/24 14:30 12/24/24 04:52 Sod 3.375 gm/ Sodium Chloride IVPB 01/01/25 23:59 100 mls/hr Q6HR CEE Administration Fluconazole 400 mg in 200 mls @ 100 mls/hr 12/19/24 13:30 12/24/24 09:34 Diflucan 400 Mg/Nacl 200 Ml IVPB 100 mls/hr DAILY CEE Administration Vancomycin HCl 1,000 mg/ 250 mls @ 250 mls/hr 12/23/24 01:00 12/23/24 18:25 Sodium Chloride IVPB 01/01/25 23:59 250 mls/hr Q18H CEE Administration Insulin Aspart 3 - 6 units 12/22/24 08:00 12/24/24 09:25 Insulin Aspart (*Bkc) 100 Units/Ml SUB-Q Not Given TIDWM CEE Protocol Lorazepam 1 mg 12/22/24 14:58 Lorazepam (*Crx) 1 Mg Tablet PO BID PRN Anxiety Naloxone HCl 0.1 mg 12/06/24 17:15 Naloxone Hcl 0.4 Mg/Ml Vial IV PUSH Q2M PRN Opiate Reversal Ondansetron HCl 4 mg 12/03/24 17:26 12/09/24 05:23 Ondansetron Inj 4 Mg/2 Ml Vial IV PUSH 4 mg Q4H PRN Administration Nausea And Vomiting Pantoprazole Sodium 40 mg 12/07/24 09:00 12/24/24 09:33 Pantoprazole Sodium Iv 40 Mg Vial IV PUSH 40 mg QAM CEE Administration Phenol 1 spray 12/07/24 10:05 Phenol/Sod Pheno [place] (*Bkc) MUCOUS MEM Q2H PRN Sore Throat Sodium Chloride 10 ml 12/07/24 14:00 12/24/24 04:53 Central Line Flush IV PUSH 10 ml Q8HR CEE Administration Sodium Chloride 10 ml 12/07/24 09:45 12/11/24 00:42 Central Line Flush IV PUSH 10 ml PRN PRN Administration with TPN bag changes Sodium Chloride 20 ml 12/07/24 09:45 12/21/24 05:30 Central Line Flush IV PUSH 20 ml PRN PRN Administration after blood draws Vancomycin HCl 500 mg 12/23/24 18:00 12/24/24 08:15 Vancomycin Enema 500 Mg/500 Ml Enema RECTAL 01/08/25 16:00 Not Given Q6HR [facility] Radiology Results: ITS Impressions Renal Ultrasound 12/04/24 21:30 Impression: 1: Unremarkable renal ultrasound. No stones, masses or hydronephrosis. Pulmonary Perfusion Imaging 12/05/24 18:55 IMPRESSION: 1: Normal perfusion scan. Probable shallow lung volumes. Recommend correlation with chest x-ray.. Chest/Abdomen/Pelvis CT 12/10/24 10:51 IMPRESSION: 1. Small amount of likely residual free intraperineal gas and fluid post likely revision of an ileocolic anastomosis and placement of a surgical drain. No evident organized abscess or extraluminal contrast to suggest residual anastomotic leak. 2. Wall thickening along the sigmoid colon consistent with colitis infectious or inflammatory in etiology. Differential would also include residual reactive edema related to the prior anastomotic leak and recent surgery. 3. Volume loss in both lungs with atelectasis at the bilateral lung bases including complete collapse of the right middle lobe. Superimposed pneumonia not excludable but suspicion is low. 4. Chronic mild dilation the common bile duct without evident obstructing stone or mass, likely related to prior cholecystectomy but would correlate with liver function tests. CT Brain Angiography 12/13/24 11:34 IMPRESSION: 1. Normal aging brain. No acute intracranial process or abnormally enhancing brain lesions. 2. Unremarkable cerebral CT angiogram with no hemodynamic significant stenosis, thrombosis or aneurysm. Chest X-Ray 12/13/24 12:26 IMPRESSION: 1. Persistent bibasilar atelectasis and/or airspace disease. 2. No significant change from one week prior. Abdomen/Pelvis CT 12/13/24 12:45 IMPRESSION: 1. Status post right hemicolectomy with anastomotic leak at the right lower quadrant ileocolic anastomosis. 2. Moderate bibasilar atelectasis, right greater than left with mucous bony of right middle and lower lobar bronchi. Chest CTA 12/13/24 12:45 IMPRESSION: 1. No pulmonary embolus. Sensitivity is moderately decreased by motion artifact. 2. Small lung volumes with relative elevation of right hemidiaphragm. Moderate atelectasis in the inferior lungs 3. Ascites. Labs Labs: Laboratory Results - last 24 hr 12/23/24 12/23/24 12/23/24 11:36 16:53 21:24 WBC RBC Hgb Hct MCV MCH MCHC RDW Plt Count MPV Immature Gran % (Auto) Neut % (Auto) Lymph % (Auto) [place] % (Auto) Eos % (Auto) Baso % (Auto) Lymph # (Auto) [place] # (Auto) Eos # (Auto) Baso # (Auto) Abs Immat Gran (auto) Absolute Neuts (auto) Absolute Nucleated RBC Nucleated RBC % Sodium Potassium Chloride Carbon Dioxide Anion Gap BUN Creatinine Estim Creat Clear Calc Estimated GFR Glucose POC Capillary Glucose 122 H 136 H 93 Calcium Total Bilirubin AST ALT Alkaline Phosphatase Total Protein Albumin 12/24/24 12/24/24 04:57 08:03 WBC 12.2 H RBC 3.17 L Hgb 8.6 L Hct 27.4 L MCV 86.4 MCH 27.1 MCHC 31.4 L RDW 19.3 H Plt Count 464 H MPV 9.2 Immature Gran % (Auto) 1.1 H Neut % (Auto) 84.0 H Lymph % (Auto) 7.6 L [place] % (Auto) 4.4 Eos % (Auto) 2.3 Baso % (Auto) 0.6 Lymph # (Auto) 0.92 [place] # (Auto) 0.5 Eos # (Auto) 0.3 Baso # (Auto) 0.1 Abs Immat Gran (auto) 0.13 H Absolute Neuts (auto) 10.2 H Absolute Nucleated RBC 0.000 Nucleated RBC % 0.0 Sodium 131 L Potassium 3.0 L Chloride 104 Carbon Dioxide 25 Anion Gap 2 L BUN 10 Creatinine 0.65 L Estim Creat Clear Calc Not Reportable Estimated GFR > 60 Glucose 97 POC Capillary Glucose 82 Calcium 8.3 L Total Bilirubin 0.4 AST 41 H ALT 25 Alkaline Phosphatase 189 H Total Protein 4.9 L Albumin 2.2 L
--- NOTE | 2024-12-24 12:21 | P.PNINF_ITS ---
Progress Note: A&P Assessment and Plan (1) Intra-abdominal abscess post-procedure: Code(s): T81.43XA - Infection following a procedure, organ and space surgical site, initial encounter; K65.1 - Peritoneal abscess Status: Acute Assessment and Plan: As below Plan Assessment and plan (1) Intra-abdominal abscess post-procedure: Code(s): T81.43XA - Infection following a procedure, organ and space surgical site, initial encounter; K65.1 - Peritoneal abscess Status: Acute Assessment and Plan: -Abscess secondary to ileocolic anastomotic leak -Management as per surgical service (2) Ileocolic anastomotic leak: Code(s): K91.89 - Other postprocedural complications and disorders of digestive system Status: Acute Assessment and Plan: -Management as per surgical service (3) History of partial colectomy: Code(s): Z90.49 - Acquired absence of other specified parts of digestive tract Status: Resolved (4) Adenocarcinoma of colon: Code(s): C18.9 - Malignant neoplasm of colon, unspecified Status: Acute Assessment and Plan: -Management as per primary service (5) Cancer of right colon: Onset Date: ~10/2024 Code(s): C18.2 - Malignant neoplasm of ascending colon Status: Acute Assessment and Plan: -Management as per primary service (6) C. difficile diarrhea: Onset Date: ~04/01/24 Code(s): A04.72 - Enterocolitis due to Clostridium difficile, not specified as recurrent Status: Inactive Assessment and Plan: -Patient has history of C.difficile infection starting in March 2024 -Has new diarrhea as of 12/12/24--now resolved Plan: - Continue Zosyn plus fluconazole and intravenous vancomycin. planned EOT 01/01/25-->need repeat CT abd to reassess the abscess prior to stopping abx Follow for thrush or oral ulcers Follow JUHI cx. Unable to give entereal vanco through mucus fistula and per rectum-->no diarrhea will stop enteral vanco and monitor Follow wounds/ wound VAC per. General surgery plans. -Management of ileocolonic anastomotic leak as per surgical service d/w nursing staff and pharmacy staff Patient was seen via video telehealth consultation with the assistance of staff. Chart, data, and patient independently reviewed. Patient was located at [facility] while I was located in my [place] office. Received verbal consent from patient. Subjective Date/time seen: 12/24/24 12:21 Interval history: no fevers mild leukocytosis no abd pain Exam Narrative: on room air, up in chair abd soft NT RUE PICC Objective Data Vital Signs Vital Signs: Vital Signs - 24 hr 12/23/24 15:36 12/23/24 16:00 12/23/24 20:00 Temperature 97.0 F L Pulse Rate 97 95 Respiratory Rate 18 Blood Pressure 144/93 H Pulse Oximetry 99 Oxygen Delivery Room Air 12/23/24 20:00 12/23/24 22:00 12/24/24 00:00 Temperature 98.2 F Pulse Rate 87 83 80 Respiratory Rate 18 Blood Pressure 149/83 H Pulse Oximetry 99 Oxygen Delivery 12/24/24 04:00 12/24/24 06:00 12/24/24 09:30 Temperature 98.0 F Pulse Rate 91 87 Respiratory Rate 18 Blood Pressure 143/89 H Pulse Oximetry 97 97 Oxygen Delivery Room Air 12/24/24 09:30 Temperature Pulse Rate 87 Respiratory Rate Blood Pressure Pulse Oximetry Oxygen Delivery Intake/Output Intake/Output: Intake & Output 12/21/24 12/22/24 12/23/24 12/24/24 23:59 23:59 23:59 23:59 Intake Total 3550 1950 3087 1030 Output Total 2615 3763 396 1780 Balance 314 128 7336 -1020 Meds/Results Medications: Active Medications Generic Name Dose Route Start Last Admin Trade Name Freq PRN Reason Stop Dose Admin Acetaminophen 650 mg 12/18/24 15:40 Acetaminophen 325 Mg Tablet PO Q4H PRN Mild Pain (1-3) or Fever Hydrocodone Bitart/Acetaminophen 1 tab 12/18/24 15:40 12/24/24 09:32 Hydrocodone/Acetaminophen (*Crx) 5-325 Mg Tablet PO 1 tab Q4H PRN Administration Pain Rated 4-6 Hydrocodone Bitart/Acetaminophen 1 tab 12/18/24 15:40 12/23/24 15:12 Hydrocodone/Acetaminophen (*Crx) 10-325 Mg Tablet PO 1 tab Q6H PRN Administration Pain Rated 7-10 Benzocaine 1 applic 12/23/24 15:54 12/24/24 10:05 Benzocaine 20% Dental Gel 9 Gm Tube BY MOUTH 1 applic QID PRN Administration Oral Pain Dextrose 12.5 gm 12/14/24 10: Dextrose 50% 25 Gm/50 Ml Syringe IV PUSH PRN PRN Hypoglycemia Protocol Enoxaparin Sodium 40 mg 12/07/24 09:00 12/24/24 09:33 Enoxaparin 40 Mg/0.4 Ml Syringe SUB-Q 40 mg DAILY CEE Administration Glucose 15 gm 12/14/24 10:29 Glucose Oral Gel 15 Gm Of Glucse In 37.5 Gm Tube PO PRN PRN Hypoglycemia Protocol Dextrose 1,000 mls @ 100 mls/hr 12/14/24 10:29 Dextrose 5% 1,000 Ml IVPB PRN PRN Hypoglycemia Protocol Piperacillin Sod/Tazobactam 50 mls @ 100 mls/hr 12/17/24 14:30 12/24/24 04:52 Sod 3.375 gm/ Sodium Chloride IVPB 01/01/25 23:59 100 mls/hr Q6HR CEE Administration Fluconazole 400 mg in 200 mls @ 100 mls/hr 12/19/24 13:30 12/24/24 09:34 Diflucan 400 Mg/Nacl 200 Ml IVPB 100 mls/hr DAILY CEE Administration Vancomycin HCl 1,000 mg/ 250 mls @ 250 mls/hr 12/23/24 01:00 12/23/24 18:25 Sodium Chloride IVPB 01/01/25 23:59 250 mls/hr Q18H CEE Administration Insulin Aspart 3 - 6 units 12/22/24 08:00 12/24/24 09:25 Insulin Aspart (*Bkc) 100 Units/Ml SUB-Q Not Given TIDWM CEE Protocol Lorazepam 1 mg 12/22/24 14:58 Lorazepam (*Crx) 1 Mg Tablet PO BID PRN Anxiety Naloxone HCl 0.1 mg 12/06/24 17:15 Naloxone Hcl 0.4 Mg/Ml Vial IV PUSH Q2M PRN Opiate Reversal Ondansetron HCl 4 mg 12/03/24 17:26 12/09/24 05:23 Ondansetron Inj 4 Mg/2 Ml Vial IV PUSH 4 mg Q4H PRN Administration Nausea And Vomiting Pantoprazole Sodium 40 mg 12/07/24 09:00 12/24/24 09:33 Pantoprazole Sodium Iv 40 Mg Vial IV PUSH 40 mg QAM CEE Administration Phenol 1 spray 12/07/24 10:05 Phenol/Sod Pheno [place] (*Bkc) MUCOUS MEM Q2H PRN Sore Throat Sodium Chloride 10 ml 12/07/24 14:00 12/24/24 04:53 Central Line Flush IV PUSH 10 ml Q8HR CEE Administration Sodium Chloride 20 ml 12/07/24 09:45 12/21/24 05:30 Central Line Flush IV PUSH 20 ml PRN PRN Administration after blood draws Radiology Results: ITS Impressions Renal Ultrasound 12/04/24 21:30 Impression: 1: Unremarkable renal ultrasound. No stones, masses or hydronephrosis. Pulmonary Perfusion Imaging 12/05/24 18:55 IMPRESSION: 1: Normal perfusion scan. Probable shallow lung volumes. Recommend correlation with chest x-ray.. Chest/Abdomen/Pelvis CT 12/10/24 10:51 IMPRESSION: 1. Small amount of likely residual free intraperineal gas and fluid post likely revision of an ileocolic anastomosis and placement of a surgical drain. No evident organized abscess or extraluminal contrast to suggest residual anastomotic leak. 2. Wall thickening along the sigmoid colon consistent with colitis infectious or inflammatory in etiology. Differential would also include residual reactive edema related to the prior anastomotic leak and recent surgery. 3. Volume loss in both lungs with atelectasis at the bilateral lung bases including complete collapse of the right middle lobe. Superimposed pneumonia not excludable but suspicion is low. 4. Chronic mild dilation the common bile duct without evident obstructing stone or mass, likely related to prior cholecystectomy but would correlate with liver function tests. CT Brain Angiography 12/13/24 11:34 IMPRESSION: 1. Normal aging brain. No acute intracranial process or abnormally enhancing brain lesions. 2. Unremarkable cerebral CT angiogram with no hemodynamic significant stenosis, thrombosis or aneurysm. Chest X-Ray 12/13/24 12:26 IMPRESSION: 1. Persistent bibasilar atelectasis and/or airspace disease. 2. No significant change from one week prior. Abdomen/Pelvis CT 12/13/24 12:45 IMPRESSION: 1. Status post right hemicolectomy with anastomotic leak at the right lower quadrant ileocolic anastomosis. 2. Moderate bibasilar atelectasis, right greater than left with mucous bony of right middle and lower lobar bronchi. Chest CTA 12/13/24 12:45 IMPRESSION: 1. No pulmonary embolus. Sensitivity is moderately decreased by motion artifact. 2. Small lung volumes with relative elevation of right hemidiaphragm. Moderate atelectasis in the inferior lungs 3. Ascites. Labs Labs: Laboratory Results - last 24 hr 12/23/24 12/23/24 12/24/24 16:53 21:24 04:57 WBC 12.2 H RBC 3.17 L Hgb 8.6 L Hct 27.4 L MCV 86.4 MCH 27.1 MCHC 31.4 L RDW 19.3 H Plt Count 464 H MPV 9.2 Immature Gran % (Auto) 1.1 H Neut % (Auto) 84.0 H Lymph % (Auto) 7.6 L [place] % (Auto) 4.4 Eos % (Auto) 2.3 Baso % (Auto) 0.6 Lymph # (Auto) 0.92 [place] # (Auto) 0.5 Eos # (Auto) 0.3 Baso # (Auto) 0.1 Abs Immat Gran (auto) 0.13 H Absolute Neuts (auto) 10.2 H Absolute Nucleated RBC 0.000 Nucleated RBC % 0.0 Sodium 131 L Potassium 3.0 L Chloride 104 Carbon Dioxide 25 Anion Gap 2 L BUN 10 Creatinine 0.65 L Estim Creat Clear Calc Not Reportable Estimated GFR > 60 Glucose 97 POC Capillary Glucose 136 H 93 Calcium 8.3 L Total Bilirubin 0.4 AST 41 H ALT 25 Alkaline Phosphatase 189 H Total Protein 4.9 L Albumin 2.2 L 12/24/24 12/24/24 08:03 11:30 WBC RBC Hgb Hct MCV MCH MCHC RDW Plt Count MPV Immature Gran % (Auto) Neut % (Auto) Lymph % (Auto) [place] % (Auto) Eos % (Auto) Baso % (Auto) Lymph # (Auto) [place] # (Auto) Eos # (Auto) Baso # (Auto) Abs Immat Gran (auto) Absolute Neuts (auto) Absolute Nucleated RBC Nucleated RBC % Sodium Potassium Chloride Carbon Dioxide Anion Gap BUN Creatinine Estim Creat Clear Calc Estimated GFR Glucose POC Capillary Glucose 82 108 H Calcium Total Bilirubin AST ALT Alkaline Phosphatase Total Protein Albumin
--- NOTE | 2024-12-24 12:39 | P.PNIM_ITS ---
Progress Note: A&P Assessment and Plan (1) History of partial colectomy: Code(s): Z90.49 - Acquired absence of other specified parts of digestive tract Status: Resolved (2) Ileocolic anastomotic leak: Code(s): K91.89 - Other postprocedural complications and disorders of digestive system Status: Acute (3) Acute blood loss anemia: Code(s): D62 - Acute posthemorrhagic anemia Status: Acute (4) Acute hypoxemic respiratory failure: Code(s): J96.01 - Acute respiratory failure with hypoxia Status: Acute Plan 64 y/o F with PMH of cancer the right colon S/P right colectomy, thrombosis of the mesenteric vein, WILL, diverticulitis, rhabdomyolysis (2021), hyperlipidemia and hypertension presented here on 12/03 with difficulty urinating. Previously underwent a hand assisted laparoscopic right colectomy with extensive adhesiolysis, mobilization of hepatic flexure by Dr. May on 11/27/24. Discharge on postop day 2 as she was doing well. At home she has had worsening abdominal pain, constipation. On readmission she has had a lengthy hospital course, on 12/06 undergoing a exploratory laparotomy with ileocolic resection with [id number] ileo colic anastomosis drainage of intra-abdominal abscess with placement of wound VAC. Due to bile in JUHI drains she had a repeat abdomen pelvis CT with water-soluble oral contrast demonstrating right hemicolectomy with anastomotic leak. On 12/13/2024 she underwent re-exploration with ileocolic resection with end ileostomy and mucous fistula creation and placement of wound VAC within subcutaneous space measuring 12 cm x 3 cm. General surgery managing wounds, wound VAC, JUHI drain. Currently on TPN. Wound care per surgery and unit protocol and wound care. Next wound VAC Saturday 12/23. Malnutrition: Related to surgery, continue TPN. NG tube in place which is clamped. Started on clear liquid per General surgery. This has been advanced to full liquid now. NG has been removed 12/17/2024 Sepsis: Monitor leukocytosis, tachypnea, tachycardia. Overall trend of leukocytosis has peaked at 19.9 on 12/08/2024, currently improving to 12. Continue to monitor along with procalcitonin. Infectious Disease consulted, continue zosyn, fluconazole, vancomycin p.o. 12/04/2024 blood culture x2 negative, final. vancomycin oral needs to transition to administration through mucous fistula- difficulty administering, surgery to be notified C diff colitis: Appreciate ID recommendations, p.o. vancomycin total 3 weeks via ostomy has been unable to be administered since 12/22 due to difficulty with stoma. Patient failed stoma Vancomycin administration and failed Vanc enema Awaiting Gen surgery and ID eval and recs today Post hemorrhagic anemia: Monitor daily hemoglobin, stable. Restart Lovenox 40 mg subQ q.day for DVT prophylaxis when okay by surgery. Hypocalcemia: After correction for hypoalbuminemia, 8.1. Continue to monitor. Elevated blood glucose readings: HbA1c 6.0%. Accu-Cheks q.6 hours with hypogly cemia protocol and low-dose insulin sliding scale. Acute hypoxic respiratory failure: Patient weaned to room air on 12/15/2024. Due to atelectasis, CTA chest did not demonstrate pneumonia/PE. Continue incentive spirometer and EzPAP q.i.d.. Mobilize as soon as possible. Acute kidney injury and urinary retention: Could be due to hypovolemia, anemia, urinary retention, sepsis, contrast exposure. DARRYL has resolved. Nephrology signed off. [place]on catheter remains due to surgery and immobility. Hypertension: [employer] antihypertensives on hold. Monitor blood pressure. Anemia hemoglobin down to 6.6 12/18/2024 1 unit PRBC. Now stable at 8.8. Intraabdominal abscess Continue Zosyn, Fluconazole and Vanc until 01/01 per ID DVT prophylaxis: SCDs. Lovenox 40 mg daily currently on hold due to anemia Nutrition: regular Prophylaxis: Protonix 40 mg IV q.a.m. for ulcer prophylaxis. PT/OT following Right upper extremity PICC line Deconditioning, PT/OT as appropriate per General surgery team. EzPAP, incentive spirometer. Patient wishes to be full code. Prior to admission she lives at home and was independent. Subjective Date/time seen: 12/24/24 12:39 Interval history: Comfortable at bedside Not toelrating Vanc enema awaiting ID and Gen surgery eval and recommendations Review of Systems Review of Systems: All systems reviewed & are unremarkable except as noted in HPI and below (Subjective) Exam Narrative: GENERAL: Alert and oriented x3, not in acute distress HEAD: Normal with no signs of head trauma. EYES: EOMI, conjunctiva normal ENT: Hearing grossly intact LUNGS: Nonlabored breathing. No adventitious sounds HEART: [Regular rate and rhythm] ABD: [Soft], mildly distended, mild tenderness, surgical incision with wound VAC, clean dry and intact. Colostomy and RLQ stoma noted. EXT: Normal range of motion SKIN: [No rashes or lesions.] NEURO: [Alert and oriented x 3. No gross focal sensory or strength deficits.] PSYCH: Normal affect Const: General: comfortable and no acute distress Other: A&O x3 HENMT: Face/Nose/Sinus: Normal nares present Mouth: Yes moist mucous me mbranes and Yes dry mucous membranes Eyes: General: appearance normal, both eyes and all related structures Sclera: sclerae normal Pupils: Equal, round and reactive pupils present EOM: EOMs intact bilaterally Neck: Neck: supple Resp: Effort & Inspection: normal respiratory effort Auscultation: clear to auscultation bilaterally and crackles Other: Slowly decreased breath sounds at bilateral bases, no crackles/wheezing/rhonchi Cardio: Rate: regular rate and tachycardic Rhythm: regular rhythm Heart sounds: no gallops and no murmurs Other: S1-S2 present without murmur, rub, ectopy GI: Inspection: non-distended Other: Right-sided mucous fistula with serosanguineous drainage, end ileostomy with light brown serous drainage, JUHI drain with serosanguineous drainage, wound VAC intact. Urinary Catheter: Urinary Catheter: patent and draining Skin: General skin exam: normal color and no rashes or lesions noted Other: Postsurgical incision to abdomen is well approximated, sutures in place, no signs of infection Neuro: Cranial nerves: Yes Equal, round and reactive pupils present Speech: normal speech Motor exam (neuro): 5/5 motor strength present throughout Sensory Exam: normal sensation Other: Generalized weakness Extrem: General: normal to inspection and edema Other: Trace edema bilateral lower extremities Psych: Mental Status: mental status grossly normal Affect: normal affect Other: Good insight and judgment, pleasant Objective Data Vital Signs Vital Signs: Vital Signs - 24 hr 12/23/24 15:36 12/23/24 16:00 12/23/24 20:00 Temperature 97.0 F L Pulse Rate 97 95 Respiratory Rate 18 Blood Pressure 144/93 H Pulse Oximetry 99 Oxygen Delivery Room Air 12/23/24 20:00 12/23/24 22:00 12/24/24 00:00 Temperature 98.2 F Pulse Rate 87 83 80 Respiratory Rate 18 Blood Pressure 149/83 H Pulse Oximetry 99 Oxygen Delivery 12/24/24 04:00 12/24/24 06:00 12/24/24 09:30 Temperature 98.0 F Pulse Rate 91 87 Respiratory Rate 18 Blood Pressure 143/89 H Pulse Oximetry 97 97 Oxygen Delivery Room Air 12/24/24 09:30 Temperature Pulse Rate 87 Respiratory Rate Blood Pressure Pulse Oximetry Oxygen Delivery Intake/Output Intake/Output: Intake & Output 12/21/24 12/22/24 12/23/24 12/24/24 23:59 23:59 23:59 23:59 Intake Total 3550 1950 3087 1080 Output Total 2615 8311 586 3672 Balance 135 480 2865 -970 Meds/Results Medications: Active Medications Generic Name Dose Route Start Last Admin Trade Name Freq PRN Reason Stop Dose Admin Acetaminophen 650 mg 12/18/24 15:40 Acetaminophen 325 Mg Tablet PO Q4H PRN Mild Pain (1-3) or Fever Hydrocodone Bitart/Acetaminophen 1 tab 12/18/24 15:40 12/24/24 09:32 Hydrocodone/Acetaminophen (*Crx) 5-325 Mg Tablet PO 1 tab Q4H PRN Administration Pain Rated 4-6 Hydrocodone Bitart/Acetaminophen 1 tab 12/18/24 15:40 12/23/24 15:12 Hydrocodone/Acetaminophen (*Crx) 10-325 Mg Tablet PO 1 tab Q6H PRN Administration Pain Rated 7-10 Benzocaine 1 applic 12/23/24 15:54 12/24/24 10:05 Benzocaine 20% Dental Gel 9 Gm Tube BY MOUTH 1 applic QID PRN Administration Oral Pain Dextrose 12.5 gm 12/14/24 10:29 Dextrose 50% 25 Gm/50 Ml Syringe IV PUSH PRN PRN Hypoglycemia Protocol Enoxaparin Sodium 40 mg 12/07/24 09:00 12/24/24 09:33 Enoxaparin 40 Mg/0.4 Ml Syringe SUB-Q 40 mg DAILY CEE Administration Glucose 15 gm 12/14/24 10:29 Glucose Oral Gel 15 Gm Of Glucse In 37.5 Gm Tube PO PRN PRN Hypoglycemia Protocol Dextrose 1,000 mls @ 100 mls/hr 12/14/24 10:29 Dextrose 5% 1,000 Ml IVPB PRN PRN Hypoglycemia Protocol Piperacillin Sod/Tazobactam 50 mls @ 100 mls/hr 12/17/24 14:30 12/24/24 12:36 Sod 3.375 gm/ Sodium Chloride IVPB 01/01/25 23:59 100 mls/hr Q6HR CEE Administration Fluconazole 400 mg in 200 mls @ 100 mls/hr 12/19/24 13:30 12/24/24 09:34 Diflucan 400 Mg/Nacl 200 Ml IVPB 100 mls/hr DAILY CEE Administration Vancomycin HCl 1,000 mg/ 250 mls @ 250 mls/hr 12/23/24 01:00 12/23/24 18:25 Sodium Chloride IVPB 01/01/25 23:59 250 mls/hr Q18H CEE Administration Insulin Aspart 3 - 6 units 12/22/24 08:00 12/24/24 12:23 Insulin Aspart (*Bkc) 100 Units/Ml SUB-Q Not Given TIDWM [facility] Protocol Lorazepam 1 mg 12/22/24 14:58 Lorazepam (*Crx) 1 Mg Tablet PO BID PRN Anxiety Naloxone HCl 0.1 mg 12/06/24 17:15 Naloxone Hcl 0.4 Mg/Ml Vial IV PUSH Q2M PRN Opiate Reversal Ondansetron HCl 4 mg 12/03/24 17:26 12/09/24 05:23 Ondansetron Inj 4 Mg/2 Ml Vial IV PUSH 4 mg Q4H PRN Administration Nausea And Vomiting Pantoprazole Sodium 40 mg 12/07/24 09:00 12/24/24 09:33 Pantoprazole Sodium Iv 40 Mg Vial IV PUSH 40 mg QAM CEE Administration Phenol 1 spray 12/07/24 10:05 Phenol/Sod Pheno [place] (*Bkc) MUCOUS MEM Q2H PRN Sore Throat Sodium Chloride 10 ml 12/07/24 14:00 12/24/24 04:53 Central Line Flush IV PUSH 10 ml Q8HR CEE Administration Sodium Chloride 20 ml 12/07/24 09:45 12/21/24 05:30 Central Line Flush IV PUSH 20 ml PRN PRN Administration after blood draws Radiology Results: ITS Impressions Renal Ultrasound 12/04/24 21:30 Impression: 1: Unremarkable renal ultrasound. No stones, masses or hydronephrosis. Pulmonary Perfusion Imaging 12/05/24 18:55 IMPRESSION: 1: Normal perfusion scan. Probable shallow lung volumes. Recommend correlation with chest x-ray.. Chest/Abdomen/Pelvis CT 12/10/24 10:51 IMPRESSION: 1. Small amount of likely residual free intraperineal gas and fluid post likely revision of an ileocolic anastomosis and placement of a surgical drain. No evident organized abscess or extraluminal contrast to suggest residual anastomotic leak. 2. Wall thickening along the sigmoid colon consistent with colitis infectious or inflammatory in etiology. Differential would also include residual reactive kendrick ma related to the prior anastomotic leak and recent surgery. 3. Volume loss in both lungs with atelectasis at the bilateral lung bases including complete collapse of the right middle lobe. Superimposed pneumonia not excludable but suspicion is low. 4. Chronic mild dilation the common bile duct without evident obstructing stone or mass, likely related to prior cholecystectomy but would correlate with liver function tests. CT Brain Angiography 12/13/24 11:34 IMPRESSION: 1. Normal aging brain. No acute intracranial process or abnormally enhancing brain lesions. 2. Unremarkable cerebral CT angiogram with no hemodynamic significant stenosis, thrombosis or aneurysm. Chest X-Ray 12/13/24 12:26 IMPRESSION: 1. Persistent bibasilar atelectasis and/or airspace disease. 2. No significant change from one week prior. Abdomen/Pelvis CT 12/13/24 12:45 IMPRESSION: 1. Status post right hemicolectomy with anastomotic leak at the right lower quadrant ileocolic anastomosis. 2. Moderate bibasilar atelectasis, right greater than left with mucous bony of right middle and lower lobar bronchi. Chest CTA 12/13/24 12:45 IMPRESSION: 1. No pulmonary embolus. Sensitivity is moderately decreased by motion artifact. 2. Small lung volumes with relative elevation of right hemidiaphragm. Moderate atelectasis in the inferior lungs 3. Ascites. Labs Labs: Laboratory Results - last 24 hr 12/23/24 12/23/24 12/24/24 16:53 21:24 04:57 WBC 12.2 H RBC 3.17 L Hgb 8.6 L Hct 27.4 L MCV 86.4 MCH 27.1 MCHC 31.4 L RDW 19.3 H Plt Count 464 H MPV 9.2 Immature Gran % (Auto) 1.1 H Neut % (Auto) 84.0 H Lymph % (Auto) 7.6 L [place] % (Auto) 4.4 Eos % (Auto) 2.3 Baso % (Auto) 0.6 Lymph # (Auto) 0.92 [place] # (Auto) 0.5 Eos # (Auto) 0.3 Baso # (Auto) 0.1 Abs Immat Gran (auto) 0.13 H Absolute Neuts (auto) 10.2 H Absolute Nucleated RBC 0.000 Nucleated RBC % 0.0 Sodium 131 L Potassium 3.0 L Chloride 104 Carbon Dioxide 25 Anion Gap 2 L BUN 10 Creatinine 0.65 L Estim Creat Clear Calc Not Reportable Estimated GFR > 60 Glucose 97 POC Capillary Glucose 136 H 93 Calcium 8.3 L Total Bilirubin 0.4 AST 41 H ALT 25 Alkaline Phosphatase 189 H Total Protein 4.9 L Albumin 2.2 L 12/24/24 12/24/24 08:03 11:30 WBC RBC Hgb Hct MCV MCH MCHC RDW Plt Count MPV Immature Gran % (Auto) Neut % (Auto) Lymph % (Auto) [place] % (Auto) Eos % (Auto) Baso % (Auto) Lymph # (Auto) [place] # (Auto) Eos # (Auto) Baso # (Auto) Abs Immat Gran (auto) Absolute Neuts (auto) Absolute Nucleated RBC Nucleated RBC % Sodium Potassium Chloride Carbon Dioxide Anion Gap BUN Creatinine Estim Creat Clear Calc Estimated GFR Glucose POC Capillary Glucose 82 108 H Calcium Total Bilirubin AST ALT Alkaline Phosphatase Total Protein Albumin Quality VTE Prophylaxis VTE prophylaxis: mechanical ordered
[2024-12-24] MEDS: VANCOMYCIN 1,250 MG/NS 250 ML 1,250 MG/250 ML BAG 166.67 MG IVPB (15:12)
[2024-12-24] MEDS: HYDROcodone/acetaminophen (*CRX) 10-325 MG TABLET 1 TAB PO (20:59)
[2024-12-25] VITALS (9 sets, daily range): BP systolic 127–131; BP diastolic 86–91; PULSE 82–99; RESP 18; TEMP 36.9–37.1; O2SAT 96–100
[2024-12-25] MEDS: PIPERACILLIN/TAZOBACTAM SOD 3.375 GM in SODIUM CHLORIDE 0.9% IV 50 ML 100 ML IVPB ×4 (00:55→17:31)
[2024-12-25] MEDS: CENTRAL LINE FLUSH 10 ML IV PUSH ×3 (05:58→20:57)
[2024-12-25 06:10] LABS: Hematocrit 26.6 % (37.0-47.0); Hemoglobin 8.3 g/dL (12.0-15.0); Immature Granulocyte Percent A 1.0 % (0-0.5); Lymphocytes Absolute Auto 0.94 K/mm3 (0.9-3.2); Mean Corpuscular HGB Conc 31.2 g/dl (32-36); Mean Corpuscular Hemoglobin 26.9 pg (26-34); Mean Corpuscular Volume 86.4 fl (80-100); Nucleated Red Blood Cells Absolute Auto 0.020 K/mm3 (0.0-0.012); Nucleated Red Blood Cells Perc 0.2 % (0.0-0.2); Platelet Count Result 509 k/mm3 (150-375); Red Blood Count 3.08 M/mm3 (4.2-5.4); White Blood Count 12.6 K/mm3 (4.5-10.0)
[2024-12-25 06:43] LABS: Alanine Aminotransferase 21 U/L (6-35); Albumin Level 2.2 g/dL (3.5-5.1); Alkaline Phosphatase 181 U/L (38-126); Anion Gap 1 mmol/L (4-12); Aspartate Amino Transferase 49 U/L (14-36); Bilirubin,Total 0.3 mg/dL (0.2-1.3); Blood Urea Nitrogen 9 mg/dL (7-17); Calcium 8.3 mg/dL (8.4-10.2); Carbon Dioxide 27 mmol/L (22-30); Chloride 103 mmol/L (98-107); Estimated Glomerular Filt Rate > 60; Glucose 106 mg/dL (65-110); Magnesium 1.8 mg/dL (1.6-2.3); Potassium 3.4 mmol/L (3.4-5.0); Sodium 131 mmol/L (137-145); Total Protein 5.3 g/dL (6.3-8.2)
[2024-12-25] MEDS: HYDROcodone/acetaminophen (*CRX) 10-325 MG TABLET 1 TAB PO (09:05)
[2024-12-25] MEDS: FLUCONAZOLE 400 MG/NACL 200 ML 400 MG/200 ML BAG 100 MG IVPB (09:05)
[2024-12-25] MEDS: ENOXAPARIN 40 MG/0.4 ML SYRINGE SUB-Q (09:07)
[2024-12-25] MEDS: PANTOPRAZOLE SODIUM IV 40 MG VIAL IV PUSH (09:07)
[2024-12-25] MEDS: VANCOMYCIN 1,250 MG/NS 250 ML 1,250 MG/250 ML BAG 166.67 MG IVPB (09:14)
--- NOTE | 2024-12-25 11:25 | P.PNGS_ITS ---
Progress Note: A&P Assessment and Plan (1) Ileocolic anastomotic leak: Code(s): K91.89 - Other postprocedural complications and disorders of digestive system Status: Acute Assessment and Plan: * Wound VAC changed today. Abdominal wound is healing well. Will change the wound VAC again on Monday. * Continue daily iodoform packing dressing changes to RLQ wound where JUHI drain was removed. * Continue IV antibiotics, ID following and suggesting IV antibiotic therapy through 01/01/25 * Continue PT/OT, increase activity as tolerated (2) Protein calorie malnutrition: Qualifiers: Protein-calorie malnutrition severity: severe Qualified Code(s): E43 - Unspecified severe protein-calorie malnutrition Code(s): E46 - Unspecified protein-calorie malnutrition Status: Acute Assessment and Plan: * Continue to encourage PO intake and Ensure supplements. * Still complaining of mouth sores, will monitor for thrush given her extensive antibiotics. Initially it looked like extremely dry mucosa with crusting, potentially from being NPO for so long. This looks better with frequent mouth care and now that she is drinking/eating. Will try magic mouthwash for her symptoms. Encouraged PO intake. If starting to look like thrush, then could add nystatin. (3) C. difficile diarrhea: Onset Date: ~04/01/24 Code(s): A04.72 - Enterocolitis due to Clostridium difficile, not specified as recurrent Status: Suspected Assessment and Plan: * Diarrhea resolved, so ID recommending to stop vancomycin and monitor Plan I have discussed the patient's case and plan of care with Dr. Burch. Subjective Subjective Date/Time Seen: 12/25/24 11:25 Post Op day: 12 (Re-exploration of recent laparotomy, Ileocolic resection with end ileostomy and mucous fistula creation) Interval history: No acute changes overnight. Patient still not eating much. She only had Ensure yesterday due to her mouth sores. They look better today and her mouth is more moist, but the Orajel isn't helping prior to meals. Exam Const: General: comfortable and no acute distress HENMT: Other: Mouth appears more moist today without any dry areas in the mucosa and no crusted scabs on the tongue. There are some small patches at the distal tongue that are pink superficial ulcers. GI: Inspection: non-distended GI Palp: Yes Soft to palpation, Yes Tenderness to palpation present (GI) and No Guarding due to palpation present (GI) Auscultation: normal bowel sounds Other: Wound VAC dressing changed, wound has granulating tissue with pink wound bed, fascia still visible at the inferior aspect of the wound and intact with 2 cm tunneling at 6 o'clock. Serosanguineous drainage in the canister. No enteric contents noted. (see wound care note for measurements) Ostomy with good output. Stoma appears pink and viable. Mucous fistula with scant serous drainage on dressing, stoma viable. RLQ wound with scant purulent drainage that is slightly more serosanguineous today, no surrounding erythema, repacked. JUHI drain with scant serosanguineous drainage. Extrem: General: no calf tenderness and edema bilateral (diffuse) Objective Data Vital Signs Vital Signs: Vital Signs - 24 hr 12/24/24 12:00 12/24/24 14:00 12/24/24 16:00 Temperature 97.8 F Pulse Rate 90 105 H 102 H Respiratory Rate 18 Blood Pressure 131/73 Pulse Oximetry 97 Oxygen Delivery Fraction of Inspired Oxygen 12/24/24 20:00 12/24/24 20:00 12/24/24 21:00 Temperature 98.4 F Pulse Rate 106 H 97 Respiratory Rate 18 Blood Pressure 133/81 Pulse Oximetry 98 Oxygen Delivery Room Air Fraction of Inspired Oxygen 12/24/24 22:00 12/25/24 00:00 12/25/24 04:00 Temperature Pulse Rate 96 93 96 Respiratory Rate 18 Blood Pressure Pulse Oximetry 98 Oxygen Delivery Room Air Fraction of Inspired Oxygen 21 12/25/24 06:00 12/25/24 09:28 Temperature 98.5 F Pulse Rate 99 Respiratory Rate 18 Blood Pressure 127/86 Pulse Oximetry 96 Oxygen Delivery Room Air Fraction of Inspired Oxygen Intake/Output Intake/Output: Intake & Output 12/22/24 12/23/24 12/24/24 12/25/24 23:59 23:59 23:59 23:59 Intake Total 5689 3087 8097 450 Output Total 8057 166 1842 1400 Balance 700 1486 -0530 -419 Meds/Results Medications: Active Medications Generic Name Dose Route Start Last Admin Trade Name Freq PRN Reason Stop Dose Admin Acetaminophen 650 mg 12/18/24 15:40 Acetaminophen 325 Mg Tablet PO Q4H PRN Mild Pain (1-3) or Fever Hydrocodone Bitart/Acetaminophen 1 tab 12/18/24 15:40 12/24/24 09:32 Hydrocodone/Acetaminophen (*Crx) 5-325 Mg Tablet PO 1 tab Q4H PRN Administration Pain Rated 4-6 Hydrocodone Bitart/Acetaminophen 1 tab 12/18/24 15:40 12/25/24 09:05 Hydrocodone/Acetaminophen (*Crx) 10-325 Mg Tablet PO 1 tab Q6H PRN Administration Pain Rated 7-10 Benzocaine 1 applic 12/23/24 15:54 12/24/24 10:05 Benzocaine 20% Dental Gel 9 Gm Tube BY MOUTH 1 applic QID PRN Administration Oral Pain Lidocaine HCl 30 ml/ Al Hydrox 0 ml 12/25/24 13:00 /Mg Hydrox/Simethicone 30 ml/ PO Diphenhydramine HCl 75 mg Q4HWA CEE Dextrose 12.5 gm 12/14/24 10:29 Dextrose 50% 25 Gm/50 Ml Syringe IV PUSH PRN PRN Hypoglycemia Protocol Enoxaparin Sodium 40 mg 12/07/24 09:00 12/25/24 09:07 Enoxaparin 40 Mg/0.4 Ml Syringe SUB-Q 40 mg DAILY CEE Administration Glucose 15 gm 12/14/24 10:29 Glucose Oral Gel 15 Gm Of Glucse In 37.5 Gm Tube PO PRN PRN Hypoglycemia Protocol Dextrose 1,000 mls @ 100 mls/hr 12/14/24 10:29 Dextrose 5% 1,000 Ml IVPB PRN PRN Hypoglycemia Protocol Piperacillin Sod/Tazobactam 50 mls @ 100 mls/hr 12/17/24 14:30 12/25/24 05:58 Sod 3.375 gm/ Sodium Chloride IVPB 01/01/25 23:59 100 mls/hr Q6HR CEE Administration Fluconazole 400 mg in 200 mls @ 100 mls/hr 12/19/24 13:30 12/25/24 09:05 Diflucan 400 Mg/Nacl 200 Ml IVPB 01/01/25 10:59 100 mls/hr DAILY CEE Administration Vancomycin HCl 1,250 mg in 250 mls @ 166.667 mls/hr 12/24/24 15:00 12/25/24 09:14 Vancomycin 1,250 Mg/Ns 250 Ml IVPB 01/01/25 23:59 166.67 mls/hr Q18H CEE Administration Insulin Aspart 3 - 6 units 12/22/24 08:00 12/25/24 09:28 Insulin Aspart (*Bkc) 100 Units/Ml SUB-Q Not Given [facility] Protocol Lorazepam 1 mg 12/22/24 14:58 Lorazepam (*Crx) 1 Mg Tablet PO BID PRN Anxiety Naloxone HCl 0.1 mg 12/06/24 17:15 Naloxone Hcl 0.4 Mg/Ml Vial IV PUSH Q2M PRN Opiate Reversal Ondansetron HCl 4 mg 12/03/24 17:26 12/09/24 05:23 Ondansetron Inj 4 Mg/2 Ml Vial IV PUSH 4 mg Q4H PRN Administration Nausea And Vomiting Pantoprazole Sodium 40 mg 12/07/24 09:00 12/25/24 09:07 Pantoprazole Sodium Iv 40 Mg Vial IV PUSH 40 mg QAM CEE Administration Phenol 1 spray 12/07/24 10:05 Phenol/Sod Pheno [place] (*Bkc) MUCOUS MEM Q2H PRN Sore Throat Sodium Chloride 10 ml 12/07/24 14:00 12/25/24 05:58 Central Line Flush IV PUSH 10 ml Q8HR CEE Administration Sodium Chloride 20 ml 12/07/24 09:45 12/21/24 05:30 Central Line Flush IV PUSH 20 ml PRN PRN Administration after blood draws Radiology Results: ITS Impressions Renal Ultrasound 12/04/24 21:30 Impression: 1: Unremarkable renal ultrasound. No stones, masses or hydronephrosis. Pulmonary Perfusion Imaging 12/05/24 18:55 IMPRESSION: 1: Normal perfusion scan. Probable shallow lung volumes. Recommend correlation with chest x-ray.. Chest/Abdomen/Pelvis CT 12/10/24 10:51 IMPRESSION: 1. Small amount of likely residual free intraperineal gas and fluid post likely revision of an ileocolic anastomosis and placement of a surgical drain. No evident organized abscess or extraluminal contrast to suggest residual anastomotic leak. 2. Wall thickening along the sigmoid colon consistent with colitis infectious or inflammatory in etiology. Differential would also include residual reactive edema related to the prior anastomotic leak and recent surgery. 3. Volume loss in both lungs with atelectasis at the bilateral lung bases inc luding complete collapse of the right middle lobe. Superimposed pneumonia not excludable but suspicion is low. 4. Chronic mild dilation the common bile duct without evident obstructing stone or mass, likely related to prior cholecystectomy but would correlate with liver function tests. CT Brain Angiography 12/13/24 11:34 IMPRESSION: 1. Normal aging brain. No acute intracranial process or abnormally enhancing brain lesions. 2. Unremarkable cerebral CT angiogram with no hemodynamic significant stenosis, thrombosis or aneurysm. Chest X-Ray 12/13/24 12:26 IMPRESSION: 1. Persistent bibasilar atelectasis and/or airspace disease. 2. No significant change from one week prior. Abdomen/Pelvis CT 12/13/24 12:45 IMPRESSION: 1. Status post right hemicolectomy with anastomotic leak at the right lower quadrant ileocolic anastomosis. 2. Moderate bibasilar atelectasis, right greater than left with mucous bony of right middle and lower lobar bronchi. Chest CTA 12/13/24 12:45 IMPRESSION: 1. No pulmonary embolus. Sensitivity is moderately decreased by motion artifact. 2. Small lung volumes with relative elevation of right hemidiaphragm. Moderate atelectasis in the inferior lungs 3. Ascites. Labs Labs: Laboratory Results - last 24 hr 12/24/24 12/24/24 12/24/24 11:30 13:25 16:31 WBC RBC Hgb Hct MCV MCH MCHC RDW Plt Count MPV Immature Gran % (Auto) Neut % (Auto) Lymph % (Auto) [place] % (Auto) Eos % (Auto) Baso % (Auto) Lymph # (Auto) [place] # (Auto) Eos # (Auto) Baso # (Auto) Abs Immat Gran (auto) Absolute Neuts (auto) Absolute Nucleated RBC Nucleated RBC % Sodium Potassium Chloride Carbon Dioxide Anion Gap BUN Creatinine Estim Creat Clear Calc Estimated GFR Glucose POC Capillary Glucose 108 H 162 H Calcium Magnesium Total Bilirubin AST ALT Alkaline Phosphatase Total Protein Albumin Vancomycin Trough 13.2 12/24/24 12/25/24 12/25/24 21:45 06:04 07:55 WBC 12.6 H RBC 3.08 L Hgb 8.3 L Hct 26.6 L MCV 86.4 MCH 26.9 MCHC 31.2 L RDW 19.1 H Plt Count 509 H MPV 9.3 Immature Gran % (Auto) 1.0 H Neut % (Auto) 83.6 H Lymph % (Auto) 7.5 L [place] % (Auto) 4.5 Eos % (Auto) 2.8 Baso % (Auto) 0.6 Lymph # (Auto) 0.94 [place] # (Auto) 0.6 Eos # (Auto) 0.4 H Baso # (Auto) 0.1 Abs Immat Gran (auto) 0.13 H Absolute Neuts (auto) 10.5 H Absolute Nucleated RBC 0.020 H Nucleated RBC % 0.2 Sodium 131 L Potassium 3.4 Chloride 103 Carbon Dioxide 27 Anion Gap 1 L BUN 9 Creatinine 0.58 L Estim Creat Clear Calc Not Reportable Estimated GFR > 60 Glucose 106 POC Capillary Glucose 163 H 98 Calcium 8.3 L Magnesium 1.8 Total Bilirubin 0.3 AST 49 H ALT 21 Alkaline Phosphatase 181 H Total Protein 5.3 L Albumin 2.2 L Vancomycin Trough
[2024-12-25] MEDS: LIDOCAINE 2% VISC SOLN 30 ML, ALUMINUM/MAGNESIUM/SIMETH SUSP 30 ML, diphenhydrAMINE HCl... PO ×3 (12:08→20:56)
--- NOTE | 2024-12-25 12:57 | P.PNINF_ITS ---
Progress Note: A&P Assessment and Plan (1) Intra-abdominal abscess post-procedure: Code(s): T81.43XA - Infection following a procedure, organ and space surgical site, initial encounter; K65.1 - Peritoneal abscess Status: Acute Assessment and Plan: As below Plan Assessment and plan (1) Intra-abdominal abscess post-procedure: Code(s): T81.43XA - Infection following a procedure, organ and space surgical site, initial encounter; K65.1 - Peritoneal abscess Status: Acute Assessment and Plan: -Abscess secondary to ileocolic anastomotic leak -Management as per surgical service (2) Ileocolic anastomotic leak: Code(s): K91.89 - Other postprocedural complications and disorders of digestive system Status: Acute Assessment and Plan: -Management as per surgical service (3) History of partial colectomy: Code(s): Z90.49 - Acquired absence of other specified parts of digestive tract Status: Resolved (4) Adenocarcinoma of colon: Code(s): C18.9 - Malignant neoplasm of colon, unspecified Status: Acute Assessment and Plan: -Management as per primary service (5) Cancer of right colon: Onset Date: ~10/2024 Code(s): C18.2 - Malignant neoplasm of ascending colon Status: Acute Assessment and Plan: -Management as per primary service (6) C. difficile diarrhea: Onset Date: ~04/01/24 Code(s): A04.72 - Enterocolitis due to Clostridium difficile, not specified as recurrent Status: Inactive Assessment and Plan: -Patient has history of C.difficile infection starting in March 2024 -Has new diarrhea as of 12/12/24--now resolved Plan: - Continue Zosyn plus fluconazole and intravenous vancomycin. planned EOT 01/01/25-->need repeat CT abd to reassess the abscess prior to stopping abx-->on discharge could change abx to ertapenem IV and po fluconazole Unable to give entereal vanco through mucus fistula and per rectum-->no diarrhea-->no enteral vanco needed d/w nursing staff and pharmacy staff Patient was seen via video telehealth consultation with the assistance of staff. Chart, data, and patient independently reviewed. Patient was located at [facility] while I was located in my [place] office. Received verbal consent from patient. Subjective Date/time seen: 12/25/24 12:57 Interval history: no fevers mild leukocytosis abdomen sore Exam Narrative: NAD, on room air abd: +ostomy Objective Data Vital Signs Vital Signs: Vital Signs - 24 hr 12/24/24 14:00 12/24/24 16:00 12/24/24 20:00 Temperature 97.8 F Pulse Rate 105 H 102 H Respiratory Rate 18 Blood Pressure 131/73 Pulse Oximetry 97 Oxygen Delivery Room Air Fraction of Inspired Oxygen 12/24/24 20:00 12/24/24 21:00 12/24/24 22:00 Temperature 98.4 F Pulse Rate 106 H 97 96 Respiratory Rate 18 18 Blood Pressure 133/81 Pulse Oximetry 98 98 Oxygen Delivery Room Air Fraction of Inspired Oxygen 21 12/25/24 00:00 12/25/24 04:00 12/25/24 06:00 Temperature 98.5 F Pulse Rate 93 96 99 Respiratory Rate 18 Blood Pressure 127/86 Pulse Oximetry 96 Oxygen Delivery Fraction of Inspired Oxygen 12/25/24 09:28 Temperature Pulse Rate Respiratory Rate Blood Pressure Pulse Oximetry Oxygen Delivery Room Air Fraction of Inspired Oxygen Intake/Output Intake/Output: Intake & Output 12/22/24 12/23/24 12/24/24 12/25/24 23:59 23:59 23:59 23:59 Intake Total 1950 3087 2537 500 Output Total 4465 607 1425 1400 Balance 700 1522 -1017 -900 Meds/Results Medications: Active Medications Generic Name Dose Route Start Last Admin Trade Name Freq PRN Reason Stop Dose Admin Acetaminophen 650 mg 12/18/24 15:40 Acetaminophen 325 Mg Tablet PO Q4H PRN Mild Pain (1-3) or Fever Hydrocodone Bitart/Acetaminophen 1 tab 12/18/24 15:40 12/24/24 09:32 Hydrocodone/Acetaminophen (*Crx) 5-325 Mg Tablet PO 1 tab Q4H PRN Administration Pain Rated 4-6 Hydrocodone Bitart/Acetaminophen 1 tab 12/18/24 15:40 12/25/24 09:05 Hydrocodone/Acetaminophen (*Crx) 10-325 Mg Tablet PO 1 tab Q6H PRN Administration Pain Rated 7-10 Lidocaine HCl 30 ml/ Al Hydrox 0 ml 12/25/24 13:00 12/25/24 12:08 /Mg Hydrox/Simethicone 30 ml/ PO 5 ml Diphenhydramine HCl 75 mg Q4HWA CEE Administration Dextrose 12.5 gm 12/14/24 10:29 Dextrose 50% 25 Gm/50 Ml Syringe IV PUSH PRN PRN Hypoglycemia Protocol Enoxaparin Sodium 40 mg 12/07/24 09:00 12/25/24 09:07 Enoxaparin 40 Mg/0.4 Ml Syringe SUB-Q 40 mg DAILY CEE Administration Glucose 15 gm 12/14/24 10:29 Glucose Oral Gel 15 Gm Of Glucse In 37.5 Gm Tube PO PRN PRN Hypoglycemia Protocol Dextrose 1,000 mls @ 100 mls/hr 12/14/24 10:29 Dextrose 5% 1,000 Ml IVPB PRN PRN Hypoglycemia Protocol Piperacillin Sod/Tazobactam 50 mls @ 100 mls/hr 12/17/24 14:30 12/25/24 12:07 Sod 3.375 gm/ Sodium Chloride IVPB 01/01/25 23:59 100 mls/hr Q6HR CEE Administration Fluconazole 400 mg in 200 mls @ 100 mls/hr 12/19/24 13:30 12/25/24 09:05 Diflucan 400 Mg/Nacl 200 Ml IVPB 01/01/25 10:59 100 mls/hr DAILY CEE Administration Vancomycin HCl 1,250 mg in 250 mls @ 166.667 mls/hr 12/24/24 15:00 12/25/24 09:14 Vancomycin 1,250 Mg/Ns 250 Ml IVPB 01/01/25 23:59 166.67 mls/hr Q18H CEE Administration Insulin Aspart 3 - 6 units 12/22/24 08:00 12/25/24 12:09 Insulin Aspart (*Bkc) 100 Units/Ml SUB-Q Not Given TIDWM CEE Protocol Lorazepam 1 mg 12/22/24 14:58 Lorazepam (*Crx) 1 Mg Tablet PO BID PRN Anxiety Naloxone HCl 0.1 mg 12/06/24 17:15 Naloxone Hcl 0.4 Mg/Ml Vial IV PUSH Q2M PRN Opiate Reversal Ondansetron HCl 4 mg 12/03/24 17:26 12/09/24 05:23 Ondansetron Inj 4 Mg/2 Ml Vial IV PUSH 4 mg Q4H PRN Administration Nausea And Vomiting Pantoprazole Sodium 40 mg 12/07/24 09:00 12/25/24 09:07 Pantoprazole Sodium Iv 40 Mg Vial IV PUSH 40 mg QAM CEE Administration Phenol 1 spray 12/07/24 10:05 Phenol/Sod Pheno [place] (*Bkc) MUCOUS MEM Q2H PRN Sore Throat Sodium Chloride 10 ml 12/07/24 14:00 12/25/24 05:58 Central Line Flush IV PUSH 10 ml Q8HR CEE Administration Sodium Chloride 20 ml 12/07/24 09:45 12/21/24 05:30 Central Line Flush IV PUSH 20 ml PRN PRN Administration after blood draws Radiology Results: ITS Impressions Renal Ultrasound 12/04/24 21:30 Impression: 1: Unremarkable renal ultrasound. No stones, masses or hydronephrosis. Pulmonary Perfusion Imaging 12/05/24 18:55 IMPRESSION: 1: Normal perfusion scan. Probable shallow lung volumes. Recommend correlation with chest x-ray.. Chest/Abdomen/Pelvis CT 12/10/24 10:51 IMPRESSION: 1. Small amount of likely residual free intraperineal gas and fluid post likely revision of an ileocolic anastomosis and placement of a surgical drain. No evident organized abscess or extraluminal contrast to suggest residual anastomotic leak. 2. Wall thickening along the sigmoid colon consistent with colitis infectious or inflammatory in etiology. Differential would also include residual reactive edema related to the prior anastomotic leak and recent surgery. 3. Volume loss in both lungs with atelectasis at the bilateral lung bases including complete collapse of the right middle lobe. Superimposed pneumonia not excludable but suspicion is low. 4. Chronic mild dilation the common bile duct without evident obstructing stone or mass, likely related to prior cholecystectomy but would correlate with liver function tests. CT Brain Angiography 12/13/24 11:34 IMPRESSION: 1. Normal aging brain. No acute intracranial process or abnormally enhancing brain lesions. 2. Unremarkable cerebral CT angiogram with no hemodynamic significant stenosis, thrombosis or aneurysm. Chest X-Ray 12/13/24 12:26 IMPRESSION: 1. Persistent bibasilar atelectasis and/or airspace disease. 2. No significant change from one week prior. Abdomen/Pelvis CT 12/13/24 12:45 IMPRESSION: 1. Status post right hemicolectomy with anastomotic leak at the right lower quadrant ileocolic anastomosis. 2. Moderate bibasilar atelectasis, right greater than left with mucous bony of right middle and lower lobar bronchi. Chest CTA 12/13/24 12:45 IMPRESSION: 1. No pulmonary embolus. Sensitivity is moderately decreased by motion artifact. 2. Small lung volumes with relative elevation of right hemidiaphragm. Moderate atelectasis in the inferior lungs 3. Ascites. Labs Labs: Laboratory Results - last 24 hr 12/24/24 12/24/24 12/24/24 13:25 16:31 21:45 WBC RBC Hgb Hct MCV MCH MCHC RDW Plt Count MPV Immature Gran % (Auto) Neut % (Auto) Lymph % (Auto) [place] % (Auto) Eos % (Auto) Baso % (Auto) Lymph # (Auto) [place] # (Auto) Eos # (Auto) Baso # (Auto) Abs Immat Gran (auto) Absolute Neuts (auto) Absolute Nucleated RBC Nucleated RBC % Sodium Potassium Chloride Carbon Dioxide Anion Gap BUN Creatinine Estim Creat Clear Calc Estimated GFR Glucose POC Capillary Glucose 162 H 163 H Calcium Magnesium Total Bilirubin AST ALT Alkaline Phosphatase Total Protein Albumin Vancomycin Trough 13.2 12/25/24 12/25/24 12/25/24 06:04 07:55 11:55 WBC 12.6 H RBC 3.08 L Hgb 8.3 L Hct 26.6 L MCV 86.4 MCH 26.9 MCHC 31.2 L RDW 19.1 H Plt Count 509 H MPV 9.3 Immature Gran % (Auto) 1.0 H Neut % (Auto) 83.6 H Lymph % (Auto) 7.5 L [place] % (Auto) 4.5 Eos % (Auto) 2.8 Baso % (Auto) 0.6 Lymph # (Auto) 0.94 [place] # (Auto) 0.6 Eos # (Auto) 0.4 H Baso # (Auto) 0.1 Abs Immat Gran (auto) 0.13 H Absolute Neuts (auto) 10.5 H Absolute Nucleated RBC 0.020 H Nucleated RBC % 0.2 Sodium 131 L Potassium 3.4 Chloride 103 Carbon Dioxide 27 Anion Gap 1 L BUN 9 Creatinine 0.58 L Estim Creat Clear Calc Not Reportable Estimated GFR > 60 Glucose 106 POC Capillary Glucose 98 106 H Calcium 8.3 L Magnesium 1.8 Total Bilirubin 0.3 AST 49 H ALT 21 Alkaline Phosphatase 181 H Total Protein 5.3 L Albumin 2.2 L Vancomycin Trough
--- NOTE | 2024-12-25 13:30 | PCOTNOTE ---
Attemped to see Patient this afternoon. Patient is in bed, refuses to participate, states she is done for the day, already did stuff today, to tired, weak and painful.
--- NOTE | 2024-12-25 13:46 | P.PNIM_ITS ---
Progress Note: A&P Assessment and Plan (1) History of partial colectomy: Code(s): Z90.49 - Acquired absence of other specified parts of digestive tract Status: Resolved (2) Ileocolic anastomotic leak: Code(s): K91.89 - Other postprocedural complications and disorders of digestive system Status: Acute (3) Acute blood loss anemia: Code(s): D62 - Acute posthemorrhagic anemia Status: Acute (4) Acute hypoxemic respiratory failure: Code(s): J96.01 - Acute respiratory failure with hypoxia Status: Acute Plan 64 y/o F with PMH of cancer the right colon S/P right colectomy, thrombosis of the mesenteric vein, WILL, diverticulitis, rhabdomyolysis (2021), hyperlipidemia and hypertension presented here on 12/03 with difficulty urinating. Previously underwent a hand assisted laparoscopic right colectomy with extensive adhesiolysis, mobilization of hepatic flexure by Dr. May on 11/27/24. Discharge on postop day 2 as she was doing well. At home she has had worsening abdominal pain, constipation. On readmission she has had a lengthy hospital course, on 12/06 undergoing a exploratory laparotomy with ileocolic resection with [id number] ileo colic anastomosis drainage of intra-abdominal abscess with placement of wound VAC. Due to bile in JUHI drains she had a repeat abdomen pelvis CT with water-soluble oral contrast demonstrating right hemicolectomy with anastomotic leak. On 12/13/2024 she underwent re-exploration with ileocolic resection with end ileostomy and mucous fistula creation and placement of wound VAC within subcutaneous space measuring 12 cm x 3 cm. General surgery managing wounds, wound VAC, JUHI drain. Currently on TPN. Wound care per surgery and unit protocol and wound care. Next wound VAC Saturday 12/23. Malnutrition: Related to surgery, continue TPN. NG tube in place which is clamped. Started on clear liquid per General surgery. This has been advanced to full liquid now. NG has been removed 12/17/2024 Sepsis: Monitor leukocytosis, tachypnea, tachycardia. Overall trend of leukocytosis has peaked at 19.9 on 12/08/2024, currently improving to 12. Continue to monitor along with procalcitonin. Infectious Disease consulted, continue zosyn, fluconazole, vancomycin p.o. 12/04/2024 blood culture x2 negative, final. vancomycin oral needs to transition to administration through mucous fistula- difficulty administering, surgery to be notified C diff colitis: Appreciate ID recommendations, p.o. vancomycin total 3 weeks via ostomy has been unable to be administered since 12/22 due to difficulty with stoma. Patient failed stoma Vancomycin administration and failed Vanc enema Holding PO Vanc for, ID and Gen surgery on board Observing the next couple of days for worsening diarrhea Post hemorrhagic anemia: Monitor daily hemoglobin, stable. Restart Lovenox 40 mg subQ q.day for DVT prophylaxis when okay by surgery. Hypocalcemia: After correction for hypoalbuminemia, 8.1. Continue to monitor. Elevated blood glucose readings: HbA1c 6.0%. Accu-Cheks q.6 hours with hypoglycemia protocol and low-dose insulin sliding scale. Acute hypoxic respiratory failure: Patient weaned to room air on 12/15/2024. Due to atelectasis, CTA chest did not demonstrate pneumonia/PE. Continue incentive spirometer and EzPAP q.i.d.. Mobilize as soon as possible. Acute kidney injury and urinary retention: Could be due to hypovolemia, anemia, urinary retention, sepsis, contrast exposure. DARRYL has resolved. Nephrology signed off. Limon catheter remains due to surgery and immobility. 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 Monitor blood pressure. Anemia hemoglobin down to 6.6 12/18/2024 1 unit PRBC. Now stable at 8.8. Intraabdominal abscess Continue Zosyn, Fluconazole and Vanc until 01/01 per ID DVT prophylaxis: SCDs. Lovenox 40 mg daily currently on hold due to anemia Nutrition: regular Prophylaxis: Protonix 40 mg IV q.a.m. for ulcer prophylaxis. PT/OT following Right upper extremity PICC line Deconditioning, PT/OT as appropriate per General surgery team. EzPAP, incentive spirometer. Patient wishes to be full code. Prior to admission she lives at home and was independent. Subjective Date/time seen: 12/25/24 13:46 Interval history: Comfortable at bedside liquid stool in colostomy bag Review of Systems Review of Systems: All systems reviewed & are unremarkable except as noted in HPI and below (Subjective) Exam Narrative: GENERAL: Alert and oriented x3, not in acute distress HEAD: Normal with no signs of head trauma. EYES: EOMI, conjunctiva normal ENT: Hearing grossly intact LUNGS: Nonlabored breathing. No adventitious sounds HEART: [Regular rate and rhythm], no murmurs ABD: [Soft], mildly distended, mild tenderness, surgical incision with wound VAC, clean dry and intact. Colostomy and RLQ stoma noted. EXT: Normal range of motion SKIN: [No rashes or lesions.] NEURO: [Alert and oriented x 3. No gross focal sensory or strength deficits.] PSYCH: Normal affect Const: General: comfortable and no acute distress Other: A&O x3 HENMT: Face/Nose/Sinus: Normal nares present Mouth: Yes moist mucous membranes and Yes dry mucous membranes Eyes: General: appearance normal, both eyes and all related structures Sclera: sclerae normal Pupils: Equal, round and reactive pupils present EOM: EOMs intact bilaterally Neck: Neck: supple Resp: Effort & Inspection: normal respiratory effort Auscultation: clear to auscultation bilaterally and crackles Other: Slowly decreased breath sounds at bilateral bases, no crackles/wheezing/rhonchi Cardio: Rate: regular rate and tachycardic Rhythm: regular rhythm Heart sounds: no gallops and no murmurs Other: S1-S2 present without murmur, rub, ectopy GI: Inspection: non-distended Other: Right-sided mucous fistula with serosanguineous drainage, end ileostomy with light brown serous drainage, JUHI drain with serosanguineous drainage, wound VAC intact. Urinary Catheter: Urinary Catheter: patent and draining Skin: General skin exam: normal color and no rashes or lesions noted Other: Postsurgical incision to abdomen is well approximated, sutures in place, no signs of infection Neuro: Cranial nerves: Yes Equal, round and reactive pupils present Speech: normal speech Motor exam (neuro): 5/5 motor strength present throughout Sensory Exam: normal sensation Other: Generalized weakness Extrem: General: normal to inspection and edema Other: Trace edema bilateral lower extremities Psych: Mental Status: mental status grossly normal Affect: normal affect Other: Good insight and judgment, pleasant Objective Data Vital Signs Vital Signs: Vital Signs - 24 hr 12/24/24 14:00 12/24/24 16:00 12/24/24 20:00 Temperature 97.8 F Pulse Rate 105 H 102 H Respiratory Rate 18 Blood Pressure 131/73 Pulse Oximetry 97 Oxygen Delivery Room Air Fraction of Inspired Oxygen 12/24/24 20:00 12/24/24 21:00 12/24/24 22:00 Temperature 98.4 F Pulse Rate 106 H 97 96 Respiratory Rate 18 18 Blood Pressure 133/81 Pulse Oximetry 98 98 Oxygen Delivery Room Air Fraction of Inspired Oxygen 21 12/25/24 00:00 12/25/24 04:00 12/25/24 06:00 Temperature 98.5 F Pulse Rate 93 96 99 Respiratory Rate 18 Blood Pressure 127/86 Pulse Oximetry 96 Oxygen Delivery Fraction of Inspired Oxygen 12/25/24 09:28 Temperature Pulse Rate Respiratory Rate Blood Pressure Pulse Oximetry Oxygen Delivery Room Air Fraction of Inspired Oxygen Intake/Output Intake/Output: Intake & Output 12/22/24 12/23/24 12/24/24 12/25/24 23:59 23:59 23:59 23:59 Intake Total 1950 3087 2537 500 Output Total 1464 541 7939 1400 Balance 700 4057 -1018 -900 Meds/Results Medications: Active Medications Generic Name Dose Route Start Last Admin Trade Name Freq PRN Reason Stop Dose Admin Acetaminophen 650 mg 12/18/24 15:40 Acetaminophen 325 Mg Tablet PO Q4H PRN Mild Pain (1-3) or Fever Hydrocodone Bitart/Acetaminophen 1 tab 12/18/24 15:40 12/24/24 09:32 Hydrocodone/Acetaminophen (*Crx) 5-325 Mg Tablet PO 1 tab Q4H PRN Administration Pain Rated 4-6 Hydrocodone Bitart/Acetaminophen 1 tab 12/18/24 15:40 12/25/24 09:05 Hydrocodone/Acetaminophen (*Crx) 10-325 Mg Tablet PO 1 tab Q6H PRN Administration Pain Rated 7-10 Lidocaine HCl 30 ml/ Al Hydrox 0 ml 12/25/24 13:00 12/25/24 12:08 /Mg Hydrox/Simethicone 30 ml/ PO 5 ml Diphenhydramine HCl 75 mg Q4HWA CEE Administration Dextrose 12.5 gm 12/14/24 10:29 Dextrose 50% 25 Gm/50 Ml Syringe IV PUSH PRN PRN Hypoglycemia Protocol Enoxaparin Sodium 40 mg 12/07/24 09:00 12/25/24 09:07 Enoxaparin 40 Mg/0.4 Ml Syringe SUB-Q 40 mg DAILY CEE Administration Glucose 15 gm 12/14/24 10:29 Glucose Oral Gel 15 Gm Of Glucse In 37.5 Gm Tube PO PRN PRN Hypoglycemia Protocol Dextrose 1,000 mls @ 100 mls/hr 12/14/24 10:29 Dextrose 5% 1,000 Ml IVPB PRN PRN Hypoglycemia Protocol Piperacillin Sod/Tazobactam 50 mls @ 100 mls/hr 12/17/24 14:30 12/25/24 12:07 Sod 3.375 gm/ Sodium Chloride IVPB 01/01/25 23:59 100 mls/hr Q6HR CEE Administration Fluconazole 400 mg in 200 mls @ 100 mls/hr 12/19/24 13:30 12/25/24 09:05 Diflucan 400 Mg/Nacl 200 Ml IVPB 01/01/25 10:59 100 mls/hr DAILY CEE Administration Vancomycin HCl 1,250 mg in 250 mls @ 166.667 mls/hr 12/24/24 15:00 12/25/24 09:14 Vancomycin 1,250 Mg/Ns 250 Ml IVPB 01/01/25 23:59 166.67 mls/hr Q18H CEE Administration Insulin Aspart 3 - 6 units 12/22/24 08:00 12/25/24 12:09 Insulin Aspart (*Bkc) 100 Units/Ml SUB-Q Not Given TIDWM CEE Protocol Lorazepam 1 mg 12/22/24 14:58 Lorazepam (*Crx) 1 Mg Tablet PO BID PRN Anxiety Naloxone HCl 0.1 mg 12/06/24 17:15 Naloxone Hcl 0.4 Mg/Ml Vial IV PUSH Q2M PRN Opiate Reversal Ondansetron HCl 4 mg 12/03/24 17:26 12/09/24 05:23 Ondansetron Inj 4 Mg/2 Ml Vial IV PUSH 4 mg Q4H PRN Administration Nausea And Vomiting Pantoprazole Sodium 40 mg 12/07/24 09:00 12/25/24 09:07 Pantoprazole Sodium Iv 40 Mg Vial IV PUSH 40 mg QAM CEE Administration Phenol 1 spray 12/07/24 10:05 Phenol/Sod Pheno [place] (*Bkc) MUCOUS MEM Q2H PRN Sore Throat Sodium Chloride 10 ml 12/07/24 14:00 12/25/24 05:58 Central Line Flush IV PUSH 10 ml Q8HR CEE Administration Sodium Chloride 20 ml 12/07/24 09:45 12/21/24 05:30 Central Line Flush IV PUSH 20 ml PRN PRN Administration after blood draws Radiology Results: ITS Impressions Renal Ultrasound 12/04/24 21:30 Impression: 1: Unremarkable renal ultrasound. No stones, masses or hydronephrosis. Pulmonary Perfusion Imaging 12/05/24 18:55 IMPRESSION: 1: Normal perfusion scan. Probable shallow lung volumes. Recommend correlation with chest x-ray.. Chest/Abdomen/Pelvis CT 12/10/24 10:51 IMPRESSION: 1. Small amount of likely residual free intraperineal gas and fluid post likely revision of an ileocolic anastomosis and placement of a surgical drain. No evident organized abscess or extraluminal contrast to suggest residual anastomotic leak. 2. Wall thickening along the sigmoid colon consistent with colitis infectious or inflammatory in etiology. Differential would also include residual reactive edema related to the prior anastomotic leak and recent surgery. 3. Volume loss in both lungs with atelectasis at the bilateral lung bases including complete collapse of the right middle lobe. Superimposed pneumonia not excludable but suspicion is low. 4. Chronic mild dilation the common bile duct without evident obstructing stone or mass, likely related to prior cholecystectomy but would correlate with liver function tests. CT Brain Angiography 12/13/24 11:34 IMPRESSION: 1. Normal aging brain. No acute intracranial process or abnormally enhancing brain lesions. 2. Unremarkable cerebral CT angiogram with no hemodynamic significant stenosis, thrombosis or aneurysm. Chest X-Ray 12/13/24 12:26 IMPRESSION: 1. Persistent bibasilar atelectasis and/or airspace disease. 2. No significant change from one week prior. Abdomen/Pelvis CT 12/13/24 12:45 IMPRESSION: 1. Status post right hemicolectomy with anastomotic leak at the right lower quadrant ileocolic anastomosis. 2. Moderate bibasilar atelectasis, right greater than left with mucous bony of right middle and lower lobar bronchi. Chest CTA 12/13/24 12:45 IMPRESSION: 1. No pulmonary embolus. Sensitivity is moderately decreased by motion artifact. 2. Small lung volumes with relative elevation of right hemidiaphragm. Moderate atelectasis in the inferior lungs 3. Ascites. Labs Labs: Laboratory Results - last 24 hr 12/24/24 12/24/24 12/24/24 13:25 16:31 21:45 WBC RBC Hgb Hct MCV MCH MCHC RDW Plt Count MPV Immature Gran % (Auto) Neut % (Auto) Lymph % (Auto) [place] % (Auto) Eos % (Auto) Baso % (Auto) Lymph # (Auto) [place] # (Auto) Eos # (Auto) Baso # (Auto) Abs Immat Gran (auto) Absolute Neuts (auto) Absolute Nucleated RBC Nucleated RBC % Sodium Potassium Chloride Carbon Dioxide Anion Gap BUN Creatinine Estim Creat Clear Calc Estimated GFR Glucose POC Capillary Glucose 162 H 163 H Calcium Magnesium Total Bilirubin AST ALT Alkaline Phosphatase Total Protein Albumin Vancomycin Trough 13.2 12/25/24 12/25/24 12/25/24 06:04 07:55 11:55 WBC 12.6 H RBC 3.08 L Hgb 8.3 L Hct 26.6 L MCV 86.4 MCH 26.9 MCHC 31.2 L RDW 19.1 H Plt Count 509 H MPV 9.3 Immature Gran % (Auto) 1.0 H Neut % (Auto) 83.6 H Lymph % (Auto) 7.5 L [place] % (Auto) 4.5 Eos % (Auto) 2.8 Baso % (Auto) 0.6 Lymph # (Auto) 0.94 [place] # (Auto) 0.6 Eos # (Auto) 0.4 H Baso # (Auto) 0.1 Abs Immat Gran (auto) 0.13 H Absolute Neuts (auto) 10.5 H Absolute Nucleated RBC 0.020 H Nucleated RBC % 0.2 Sodium 131 L Potassium 3.4 Chloride 103 Carbon Dioxide 27 Anion Gap 1 L BUN 9 Creatinine 0.58 L Estim Creat Clear Calc Not Reportable Estimated GFR > 60 Glucose 106 POC Capillary Glucose 98 106 H Calcium 8.3 L Magnesium 1.8 Total Bilirubin 0.3 AST 49 H ALT 21 Alkaline Phosphatase 181 H Total Protein 5.3 L Albumin 2.2 L Vancomycin Trough Quality VTE Prophylaxis VTE prophylaxis: mechanical ordered
[2024-12-25] MEDS: HYDROcodone/acetaminophen (*CRX) 5-325 MG TABLET 1 TAB PO (20:58)
[2024-12-26] VITALS (10 sets, daily range): BP systolic 149–157; BP diastolic 83–91; PULSE 74–95; RESP 16–18; TEMP 36.1–36.8; O2SAT 96–99
[2024-12-26] MEDS: PIPERACILLIN/TAZOBACTAM SOD 3.375 GM in SODIUM CHLORIDE 0.9% IV 50 ML 100 ML IVPB ×4 (00:56→18:14)
[2024-12-26 02:11] LABS: Hematocrit 26.6 % (37.0-47.0); Hemoglobin 8.3 g/dL (12.0-15.0); Immature Granulocyte Percent A 1.2 % (0-0.5); Lymphocytes Absolute Auto 1.04 K/mm3 (0.9-3.2); Mean Corpuscular HGB Conc 31.2 g/dl (32-36); Mean Corpuscular Hemoglobin 26.9 pg (26-34); Mean Corpuscular Volume 86.1 fl (80-100); Nucleated Red Blood Cells Absolute Auto 0.000 K/mm3 (0.0-0.012); Nucleated Red Blood Cells Perc 0.0 % (0.0-0.2); Platelet Count Result 504 k/mm3 (150-375); Red Blood Count 3.09 M/mm3 (4.2-5.4); White Blood Count 11.6 K/mm3 (4.5-10.0)
[2024-12-26 02:25] LABS: Alanine Aminotransferase 23 U/L (6-35); Albumin Level 2.3 g/dL (3.5-5.1); Alkaline Phosphatase 179 U/L (38-126); Anion Gap 2 mmol/L (4-12); Aspartate Amino Transferase 34 U/L (14-36); Bilirubin,Total 0.3 mg/dL (0.2-1.3); Blood Urea Nitrogen 7 mg/dL (7-17); Calcium 8.6 mg/dL (8.4-10.2); Carbon Dioxide 27 mmol/L (22-30); Chloride 99 mmol/L (98-107); Estimated Glomerular Filt Rate > 60; Glucose 98 mg/dL (65-110); Magnesium 1.7 mg/dL (1.6-2.3); Potassium 3.3 mmol/L (3.4-5.0); Sodium 128 mmol/L (137-145); Total Protein 5.6 g/dL (6.3-8.2)
[2024-12-26] MEDS: VANCOMYCIN 1,250 MG/NS 250 ML 1,250 MG/250 ML BAG 166.67 MG IVPB (03:47)
[2024-12-26] MEDS: HYDROcodone/acetaminophen (*CRX) 5-325 MG TABLET 1 TAB PO ×2 (04:12→09:08)
[2024-12-26] MEDS: CENTRAL LINE FLUSH 10 ML IV PUSH ×3 (06:11→22:00)
[2024-12-26] MEDS: LIDOCAINE 2% VISC SOLN 30 ML, ALUMINUM/MAGNESIUM/SIMETH SUSP 30 ML, diphenhydrAMINE HCl... PO ×3 (06:11→18:13)
[2024-12-26] MEDS: ENOXAPARIN 40 MG/0.4 ML SYRINGE SUB-Q (09:09)
[2024-12-26] MEDS: PANTOPRAZOLE SODIUM IV 40 MG VIAL IV PUSH (09:09)
[2024-12-26] MEDS: FLUCONAZOLE 400 MG/NACL 200 ML 400 MG/200 ML BAG 100 MG IVPB (09:10)
--- NOTE | 2024-12-26 10:31 | PCNFU ---
Nutrition Follow-Up Complete: Inadequate energy intake related to altered GI function as evidenced by need for full TPN Meet estimated nutrition needs- Slow progress with PO intake. Continue same goals Goal: Pt current nutrition is Regular diet, Ensure Plus HP TID (350 kcal, 20 g protein). Nutrition recommendation: No new recommendations. Continue to encourage PO intake Last recorded weight is 70 kg. Bowel Motility: +1 BM 12/25 Labs Reviewed: Hgb 8.3, Hct 26.6, Alb 2.3, Na 128, K+ 3.3 Meds Noted: Zofran, protonix, novolog Skin: Abdominal incision Additional Notes: Continues with mostly poot intake, 5-25%. Did eat 75% yesterday. Continue to encourage intakes. Monitoring TPN tolerance, labs, weights, GI function, diet advancement, plan of care Follow up Monday/Monday.
--- NOTE | 2024-12-26 13:12 | P.PNIM_ITS ---
Progress Note: A&P Assessment and Plan (1) History of partial colectomy: Code(s): Z90.49 - Acquired absence of other specified parts of digestive tract Status: Resolved (2) Ileocolic anastomotic leak: Code(s): K91.89 - Other postprocedural complications and disorders of digestive system Status: Acute (3) Acute blood loss anemia: Code(s): D62 - Acute posthemorrhagic anemia Status: Acute (4) Acute hypoxemic respiratory failure: Code(s): J96.01 - Acute respiratory failure with hypoxia Status: Acute Plan 64 y/o F with PMH of cancer the right colon S/P right colectomy, thrombosis of the mesenteric vein, WILL, diverticulitis, rhabdomyolysis (2021), hyperlipidemia and hypertension presented here on 12/03 with difficulty urinating. Previously underwent a hand assisted laparoscopic right colectomy with extensive adhesiolysis, mobilization of hepatic flexure by Dr. May on 11/27/24. Discharge on postop day 2 as she was doing well. At home she has had worsening abdominal pain, constipation. On readmission she has had a lengthy hospital course, on 12/06 undergoing a exploratory laparotomy with ileocolic resection with [id number] ileo colic anastomosis drainage of intra-abdominal abscess with placement of wound VAC. Due to bile in JUHI drains she had a repeat abdomen pelvis CT with water-soluble oral contrast demonstrating right hemicolectomy with anastomotic leak. On 12/13/2024 she underwent re-exploration with ileocolic resection with end ileostomy and mucous fistula creation and placement of wound VAC within subcutaneous space measuring 12 cm x 3 cm. General surgery managing wounds, wound VAC, JUHI drain. Currently on TPN. Wound care per surgery and unit protocol and wound care. Next wound VAC Saturday 12/23. Malnutrition: Related to surgery, continue TPN. NG tube in place which is clamped. Started on clear liquid per General surgery. This has been advanced to full liquid now. NG has been removed 12/17/2024 Sepsis: Monitor leukocytosis, tachypnea, tachycardia. Overall trend of leukocytosis has peaked at 19.9 on 12/08/2024, currently improving to 12. Continue to monitor along with procalcitonin. Infectious Disease consulted, continue zosyn, fluconazole, vancomycin p.o. 12/04/2024 blood culture x2 negative, final. vancomycin oral needs to transition to administration through mucous fistula- difficulty administering, surgery to be notified C diff colitis: Appreciate ID recommendations, p.o. vancomycin total 3 weeks via ostomy has been unable to be administered since 12/22 due to difficulty with stoma. Patient failed stoma Vancomycin administration and failed Vanc enema Holding PO Vanc for, ID and Gen surgery on board Stool is forming now Patient comfortable at bedside Post hemorrhagic anemia: Monitor daily hemoglobin, stable. Restart Lovenox 40 mg subQ q.day for DVT prophylaxis when okay by surgery. Hypocalcemia: After correction for hypoalbuminemia, 8.1. Continue to monitor. Elevated blood glucose readings: HbA1c 6.0%. Accu-Cheks q.6 hours with hypoglycemia protocol and low-dose insulin sliding scale. Acute hypoxic respiratory failure: Patient weaned to room air on 12/15/2024. Due to atelectasis, CTA chest did not demonstrate pneumonia/PE. Continue incentive spirometer and EzPAP q.i.d.. Mobilize as soon as possible. Acute kidney injury and urinary retention: Could be due to hypovolemia, anemia, urinary retention, sepsis, contrast exposure. DARRYL has resolved. Nephrology signed off. Limon catheter remains due to surgery and immobility. Hypertension: [employer] antihypertensives on hold. Monitor blood pressure. Anemia hemoglobin down to 6.6 12/18/2024 1 unit PRBC. Now stable at 8.8. Intraabdominal abscess Continue Zosyn, Fluconazole and Vanc until 01/01 per ID DVT prophylaxis: SCDs. Lovenox 40 mg daily currently on hold due to anemia Nutrition: regular Prophylaxis: Protonix 40 mg IV q.a.m. for ulcer prophylaxis. PT/OT following Right upper extremity PICC line Deconditioning, PT/OT as appropriate per General surgery team. EzPAP, incentive spirometer. Patient wishes to be full code. Prior to admission she lives at home and was independent. Stable for discharge from medical standpoint Subjective Date/time seen: 12/26/24 13:12 Interval history: COmfortable at bedside Stool is mostly formed now, not liquid Review of Systems Review of Systems: All systems reviewed & are unremarkable except as noted in HPI and below (Subjective) Exam Narrative: GENERAL: Alert and oriented x3, not in acute distress HEAD: Normal with no signs of head trauma. EYES: EOMI, conjunctiva normal ENT: Hearing grossly intact LUNGS: Nonlabored breathing. No adventitious sounds HEART: [Regular rate and rhythm], no murmurs ABD: [Soft], mildly distended, mild tenderness, surgical incision with wound VAC, clean dry and intact. Colostomy and RLQ stoma noted. EXT: Normal range of motion SKIN: [No rashes or lesions.] NEURO: [Alert and oriented x 3. No gross focal sensory or strength deficits.] PSYCH: Normal affect Const: General: comfortable and no acute distress Other: A&O x3 HENMT: Face/Nose/Sinus: Normal nares present Mouth: Yes moist mucous membranes and Yes dry mucous membranes Eyes: General: appearance normal, both eyes and all related structures Sclera: sclerae normal Pupils: Equal, round and reactive pupils present EOM: EOMs intact bilaterally Neck: Neck: supple Resp: Effort & Inspection: normal respiratory effort Auscultation: clear to auscultation bilaterally and crackles Other: Slowly decreased breath sounds at bilateral bases, no crackles/wheezing/rhonchi Cardio: Rate: regular rate and tachycardic Rhythm: regular rhythm Heart sounds: no gallops and no murmurs Other: S1-S2 present without murmur, rub, ectopy GI: Inspection: non-distended Other: Right-sided mucous fistula with serosanguineous drainage, end ileostomy with light brown serous drainage, JUIH drain with serosanguineous drainage, wound VAC intact. Urinary Catheter: Urinary Catheter: patent and draining Skin: General skin exam: normal color and no rashes or lesions noted Other: Postsurgical incision to abdomen is well approximated, sutures in place, no signs of infection Neuro: Cranial nerves: Yes Equal, round and reactive pupils present Speech: normal speech Motor exam (neuro): 5/5 motor strength present throughout Sensory Exam: normal sensation Other: Generalized weakness Extrem: General: normal to inspection and edema Other: Trace edema bilateral lower extremities Psych: Mental Status: mental status grossly normal Affect: normal affect Other: Good insight and judgment, pleasant Objective Data Vital Signs Vital Signs: Vital Signs - 24 hr 12/25/24 13:52 12/25/24 16:05 12/25/24 20:00 Temperature 98.4 F Pulse Rate 94 87 Respiratory Rate 18 Blood Pressure Pulse Oximetry 100 Oxygen Delivery Room Air 12/25/24 20:00 12/25/24 22:00 12/26/24 00:00 Temperature 98.7 F Pulse Rate 92 82 85 Respiratory Rate 18 Blood Pressure 131/91 H Pulse Oximetry 97 Oxygen Delivery 12/26/24 04:00 12/26/24 06:00 12/26/24 09:50 Temperature 97.7 F Pulse Rate 74 95 Respiratory Rate 18 Blood Pressure 157/91 H Pulse Oximetry 96 Oxygen Delivery Room Air Intake/Output Intake/Output: Intake & Output 12/23/24 12/24/24 12/25/24 12/26/24 23:59 23:59 23:59 23:59 Intake Total 3087 2537 3600 840 Output Total 970 4155 2085 1850 Balance 2117 -1018 1515 -1010 Meds/Results Medications: Active Medications Generic Name Dose Route Start Last Admin Trade Name Freq PRN Reason Stop Dose Admin Acetaminophen 650 mg 12/18/24 15:40 Acetaminophen 325 Mg Tablet PO Q4H PRN Mild Pain (1-3) or Fever Hydrocodone Bitart/Acetaminophen 1 tab 12/18/24 15:40 12/26/24 09:08 Hydrocodone/Acetaminophen (*Crx) 5-325 Mg Tablet PO 1 tab Q4H PRN Administration Pain Rated 4-6 Hydrocodone Bitart/Acetaminophen 1 tab 12/18/24 15:40 12/25/24 09:05 Hydrocodone/Acetaminophen (*Crx) 10-325 Mg Tablet PO 1 tab Q6H PRN Administration Pain Rated 7-10 Lidocaine HCl 30 ml/ Al Hydrox 0 ml 12/25/24 13:00 12/26/24 12:54 /Mg Hydrox/Simethicone 30 ml/ PO 5 ml Diphenhydramine HCl 75 mg Q4HWA CEE Administration Dextrose 12.5 gm 12/14/24 10:29 Dextrose 50% 25 Gm/50 Ml Syringe IV PUSH PRN PRN Hypoglycemia Protocol Enoxaparin Sodium 40 mg 12/07/24 09:00 12/26/24 09:09 Enoxaparin 40 Mg/0.4 Ml Syringe SUB-Q 40 mg DAILY CEE Administration Glucose 15 gm 12/14/24 10:29 Glucose Oral Gel 15 Gm Of Glucse In 37.5 Gm Tube PO PRN PRN Hypoglycemia Protocol Dextrose 1,000 mls @ 100 mls/hr 12/14/24 10:29 Dextrose 5% 1,000 Ml IVPB PRN PRN Hypoglycemia Protocol Piperacillin Sod/Tazobactam 50 mls @ 100 mls/hr 12/17/24 14:30 12/26/24 12:51 Sod 3.375 gm/ Sodium Chloride IVPB 01/01/25 23:59 100 mls/hr Q6HR CEE Administration Fluconazole 400 mg in 200 mls @ 100 mls/hr 12/19/24 13:30 12/26/24 09:10 Diflucan 400 Mg/Nacl 200 Ml IVPB 01/01/25 10:59 100 mls/hr DAILY CEE Administration Insulin Aspart 3 - 6 units 12/22/24 08:00 12/26/24 12:51 Insulin Aspart (*Bkc) 100 Units/Ml SUB-Q Not Given TIDWM CEE Protocol Lorazepam 1 mg 12/22/24 14:58 Lorazepam (*Crx) 1 Mg Tablet PO BID PRN Anxiety Naloxone HCl 0.1 mg 12/06/24 17:15 Naloxone Hcl 0.4 Mg/Ml Vial IV PUSH Q2M PRN Opiate Reversal Ondansetron HCl 4 mg 12/03/24 17:26 12/09/24 05:23 Ondansetron Inj 4 Mg/2 Ml Vial IV PUSH 4 mg Q4H PRN Administration Nausea And Vomiting Pantoprazole Sodium 40 mg 12/07/24 09:00 12/26/24 09:09 Pantoprazole Sodium Iv 40 Mg Vial IV PUSH 40 mg QAM CEE Administration Phenol 1 spray 12/07/24 10:05 Phenol/Sod Pheno [place] Salomon (*Bkc) MUCOUS MEM Q2H PRN Sore Throat Sodium Chloride 10 ml 12/07/24 14:00 12/26/24 06:11 Central Line Flush IV PUSH 10 ml Q8HR CEE Administration Sodium Chloride 20 ml 12/07/24 09:45 12/21/24 05:30 Central Line Flush IV PUSH 20 ml PRN PRN Administration after blood draws Radiology Results: ITS Impressions Renal Ultrasound 12/04/24 21:30 Impression: 1: Unremarkable renal ultrasound. No stones, masses or hydronephrosis. Pulmonary Perfusion Imaging 12/05/24 18:55 IMPRESSION: 1: Normal perfusion scan. Probable shallow lung volumes. Recommend correlation with chest x-ray.. Chest/Abdomen/Pelvis CT 12/10/24 10:51 IMPRESSION: 1. Small amount of likely residual free intraperineal gas and fluid post likely revision of an ileocolic anastomosis and placement of a surgical drain. No evident organized abscess or extraluminal contrast to suggest residual anastomotic leak. 2. Wall thickening along the sigmoid colon consistent with colitis infectious or inflammatory in etiology. Differential would also include residual reactive edema related to the prior anastomotic leak and recent surgery. 3. Volume loss in both lungs with atelectasis at the bilateral lung bases including complete collapse of the right middle lobe. Superimposed pneumonia not excludable but suspicion is low. 4. Chronic mild dilation the common bile duct without evident obstructing stone or mass, likely related to prior cholecystectomy but would correlate with liver function tests. CT Brain Angiography 12/13/24 11:34 IMPRESSION: 1. Normal aging brain. No acute intracranial process or abnormally enhancing brain lesions. 2. Unremarkable cerebral CT angiogram with no hemodynamic significant stenosis, thrombosis or aneurysm. Chest X-Ray 12/13/24 12:26 IMPRESSION: 1. Persistent bibasilar atelectasis and/or airspace disease. 2. No significant change from one week prior. Abdomen/Pelvis CT 12/13/24 12:45 IMPRESSION: 1. Status post right hemicolectomy with anastomotic leak at the right lower quadrant ileocolic anastomosis. 2. Moderate bibasilar atelectasis, right greater than left with mucous bony of right middle and lower lobar bronchi. Chest CTA 12/13/24 12:45 IMPRESSION: 1. No pulmonary embolus. Sensitivity is moderately decreased by motion artifact. 2. Small lung volumes with relative elevation of right hemidiaphragm. Moderate atelectasis in the inferior lungs 3. Ascites. Labs Labs: Laboratory Results - last 24 hr 12/25/24 12/25/24 12/26/24 16:41 21:56 02:04 WBC 11.6 H RBC 3.09 L Hgb 8.3 L Hct 26.6 L MCV 86.1 MCH 26.9 MCHC 31.2 L RDW 19.4 H Plt Count 504 H MPV 9.1 Immature Gran % (Auto) 1.2 H Neut % (Auto) 82.0 H Lymph % (Auto) 9.0 L [place] % (Auto) 4.5 Eos % (Auto) 2.4 Baso % (Auto) 0.9 Lymph # (Auto) 1.04 [place] # (Auto) 0.5 Eos # (Auto) 0.3 Baso # (Auto) 0.1 Abs Immat Gran (auto) 0.14 H Absolute Neuts (auto) 9.5 H Absolute Nucleated RBC 0.000 Nucleated RBC % 0.0 Sodium 128 L Potassium 3.3 L Chloride 99 Carbon Dioxide 27 Anion Gap 2 L BUN 7 Creatinine 0.56 L Estim Creat Clear Calc Not Reportable Estimated GFR > 60 Glucose 98 POC Capillary Glucose 114 H 102 Calcium 8.6 Magnesium 1.7 Total Bilirubin 0.3 AST 34 ALT 23 Alkaline Phosphatase 179 H Total Protein 5.6 L Albumin 2.3 L Vancomycin Trough 15.1 12/26/24 12/26/24 08:26 11:38 WBC RBC Hgb Hct MCV MCH MCHC RDW Plt Count MPV Immature Gran % (Auto) Neut % (Auto) Lymph % (Auto) [place] % (Auto) Eos % (Auto) Baso % (Auto) Lymph # (Auto) [place] # (Auto) Eos # (Auto) Baso # (Auto) Abs Immat Gran (auto) Absolute Neuts (auto) Absolute Nucleated RBC Nucleated RBC % Sodium Potassium Chloride Carbon Dioxide Anion Gap BUN Creatinine Estim Creat Clear Calc Estimated GFR Glucose POC Capillary Glucose 115 H 143 H Calcium Magnesium Total Bilirubin AST ALT Alkaline Phosphatase Total Protein Albumin Vancomycin Trough Quality VTE Prophylaxis VTE prophylaxis: mechanical ordered
--- NOTE | 2024-12-26 14:39 | WPDINFPN2 ---
Progress Note: A&P Assessment and Plan (1) Intra-abdominal abscess post-procedure: Code(s): T81.43XA - Infection following a procedure, organ and space surgical site, initial encounter; K65.1 - Peritoneal abscess Status: Acute Assessment and Plan: As below Plan Assessment and plan (1) Intra-abdominal abscess post-procedure: Code(s): T81.43XA - Infection following a procedure, organ and space surgical site, initial encounter; K65.1 - Peritoneal abscess Status: Acute Assessment and Plan: -Abscess secondary to ileocolic anastomotic leak -Management as per surgical service (2) Ileocolic anastomotic leak: Code(s): K91.89 - Other postprocedural complications and disorders of digestive system Status: Acute Assessment and Plan: -Management as per surgical service (3) History of partial colectomy: Code(s): Z90.49 - Acquired absence of other specified parts of digestive tract Status: Resolved (4) Adenocarcinoma of colon: Code(s): C18.9 - Malignant neoplasm of colon, unspecified Status: Acute Assessment and Plan: -Management as per primary service (5) Cancer of right colon: Onset Date: ~10/2024 Code(s): C18.2 - Malignant neoplasm of ascending colon Status: Acute Assessment and Plan: -Management as per primary service (6) C. difficile diarrhea: Onset Date: ~04/01/24 Code(s): A04.72 - Enterocolitis due to Clostridium difficile, not specified as recurrent Status: Inactive Assessment and Plan: -Patient has history of C.difficile infection starting in March 2024 -Has new diarrhea as of 12/12/24--now resolved Plan: - Continue Zosyn plus fluconazole while in hospital - d/c IV vancomycin - place midline - check repeat CT abd - ok to discharge on ertapenem 1 gram IV Q24 hrs and po fluconazole through at least 01/01--may need longer course depending on CT abd findings--CT ordered today d/w nursing staff and pharmacy staff Patient was seen via video telehealth consultation with the assistance of staff. Chart, data, and patient independently reviewed. Patient was located at [facility] while I was located in my [place] office. Received verbal consent from patient. Subjective Date/time seen: 12/26/24 14:39 Interval history: no fever tolerating po Exam Narrative: on room air, non-toxic abd: +ostomy, midline wound vac; drain with serous fluid Objective Data Vital Signs Vital Signs: Vital Signs - 24 hr 12/25/24 16:05 12/25/24 20:00 12/25/24 20:00 Temperature Pulse Rate 87 92 Respiratory Rate Blood Pressure Pulse Oximetry Oxygen Delivery Room Air 12/25/24 22:00 12/26/24 00:00 12/26/24 04:00 Temperature 98.7 F Pulse Rate 82 85 74 Respiratory Rate 18 Blood Pressure 131/91 H Pulse Oximetry 97 Oxygen Delivery 12/26/24 06:00 12/26/24 09:50 12/26/24 13:59 Temperature 97.7 F 98.2 F Pulse Rate 95 94 Respiratory Rate 18 16 Blood Pressure 157/91 H 149/83 H Pulse Oximetry 96 99 Oxygen Delivery Room Air Intake/Output Intake/Output: Intake & Output 12/23/24 12/24/24 12/25/24 12/26/24 23:59 23:59 23:59 23:59 Intake Total 3087 2537 3600 1137 Output Total 970 3555 2085 1850 Balance 2117 1018 1515 -713 Meds/Results Medications: Active Medications Generic Name Dose Route Start Last Admin Trade Name Freq PRN Reason Stop Dose Admin Acetaminophen 650 mg 12/18/24 15:40 Acetaminophen 325 Mg Tablet PO Q4H PRN Mild Pain (1-3) or Fever Hydrocodone Bitart/Acetaminophen 1 tab 12/18/24 15:40 12/26/24 09:08 Hydrocodone/Acetaminophen (*Crx) 5-325 Mg Tablet PO 1 tab Q4H PRN Administration Pain Rated 4-6 Hydrocodone Bitart/Acetaminophen 1 tab 12/18/24 15:40 12/25/24 09:05 Hydrocodone/Acetaminophen (*Crx) 10-325 Mg Tablet PO 1 tab Q6H PRN Administration Pain Rated 7-10 Lidocaine HCl 30 ml/ Al Hydrox 0 ml 12/25/24 13:00 12/26/24 12:54 /Mg Hydrox/Simethicone 30 ml/ PO 5 ml Diphenhydramine HCl 75 mg Q4HWA CEE Administration Dextrose 12.5 gm 12/14/24 10:29 Dextrose 50% 25 Gm/50 Ml Syringe IV PUSH PRN PRN Hypoglycemia Protocol Enoxaparin Sodium 40 mg 12/07/24 09:00 12/26/24 09:09 Enoxaparin 40 Mg/0.4 Ml Syringe SUB-Q 40 mg DAILY CEE Administration Glucose 15 gm 12/14/24 10:29 Glucose Oral Gel 15 Gm Of Glucse In 37.5 Gm Tube PO PRN PRN Hypoglycemia Protocol Dextrose 1,000 mls @ 100 mls/hr 12/14/24 10:29 Dextrose 5% 1,000 Ml IVPB PRN PRN Hypoglycemia Protocol Piperacillin Sod/Tazobactam 50 mls @ 100 mls/hr 12/17/24 14:30 12/26/24 12:51 Sod 3.375 gm/ Sodium Chloride IVPB 01/01/25 23:59 100 mls/hr Q6HR CEE Administration Fluconazole 400 mg in 200 mls @ 100 mls/hr 12/19/24 13:30 12/26/24 09:10 Diflucan 400 Mg/Nacl 200 Ml IVPB 01/01/25 10:59 100 mls/hr DAILY CEE Administration Insulin Aspart 3 - 6 units 12/22/24 08:00 12/26/24 12:51 Insulin Aspart (*Bkc) 100 Units/Ml SUB-Q Not Given TIDWM CEE Protocol Lorazepam 1 mg 12/22/24 14:58 Lorazepam (*Crx) 1 Mg Tablet PO BID PRN Anxiety Naloxone HCl 0.1 mg 12/06/24 17:15 Naloxone Hcl 0.4 Mg/Ml Vial IV PUSH Q2M PRN Opiate Reversal Ondansetron HCl 4 mg 12/03/24 17:26 12/09/24 05:23 Ondansetron Inj 4 Mg/2 Ml Vial IV PUSH 4 mg Q4H PRN Administration Nausea And Vomiting Pantoprazole Sodium 40 mg 12/07/24 09:00 12/26/24 09:09 Pantoprazole Sodium Iv 40 Mg Vial IV PUSH 40 mg QAM CEE Administration Phenol 1 spray 12/07/24 10:05 Phenol/Sod Pheno [place] Salomon (*Bkc) MUCOUS MEM Q2H PRN Sore Throat Sodium Chloride 10 ml 12/07/24 14:00 12/26/24 06:11 Central Line Flush IV PUSH 10 ml Q8HR CEE Administration Sodium Chloride 20 ml 12/07/24 09:45 12/21/24 05:30 Central Line Flush IV PUSH 20 ml PRN PRN Administration after blood draws Radiology Results: ITS Impressions Renal Ultrasound 12/04/24 21:30 Impression: 1: Unremarkable renal ultrasound. No stones, masses or hydronephrosis. Pulmonary Perfusion Imaging 12/05/24 18:55 IMPRESSION: 1: Normal perfusion scan. Probable shallow lung volumes. Recommend correlation with chest x-ray.. Chest/Abdomen/Pelvis CT 12/10/24 10:51 IMPRESSION: 1. Small amount of likely residual free intraperineal gas and fluid post likely revision of an ileocolic anastomosis and placement of a surgical drain. No evident organized abscess or extraluminal contrast to suggest residual anastomotic leak. 2. Wall thickening along the sigmoid colon consistent with colitis infectious or inflammatory in etiology. Differential would also include residual reactive edema related to the prior anastomotic leak and recent surgery. 3. Volume loss in both lungs with atelectasis at the bilateral lung bases including complete collapse of the right middle lobe. Superimposed pneumonia not excludable but suspicion is low. 4. Chronic mild dilation the common bile duct without evident obstructing stone or mass, likely related to prior cholecystectomy but would correlate with liver function tests. CT Brain Angiography 12/13/24 11:34 IMPRESSION: 1. Normal aging brain. No acute intracranial process or abnormally enhancing brain lesions. 2. Unremarkable cerebral CT angiogram with no hemodynamic significant stenosis, thrombosis or aneurysm. Chest X-Ray 12/13/24 12:26 IMPRESSION: 1. Persistent bibasilar atelectasis and/or airspace disease. 2. No significant change from one week prior. Abdomen/Pelvis CT 12/13/24 12:45 IMPRESSION: 1. Status post right hemicolectomy with anastomotic leak at the right lower quadrant ileocolic anastomosis. 2. Moderate bibasilar atelectasis, right greater than left with mucous bony of right middle and lower lobar bronchi. Chest CTA 12/13/24 12:45 IMPRESSION: 1. No pulmonary embolus. Sensitivity is moderately decreased by motion artifact. 2. Small lung volumes with relative elevation of right hemidiaphragm. Moderate atelectasis in the inferior lungs 3. Ascites. Labs Labs: Laboratory Results - last 24 hr 12/25/24 12/25/24 12/26/24 16:41 21:56 02:04 WBC 11.6 H RBC 3.09 L Hgb 8.3 L Hct 26.6 L MCV 86.1 MCH 26.9 MCHC 31.2 L RDW 19.4 H Plt Count 504 H MPV 9.1 Immature Gran % (Auto) 1.2 H Neut % (Auto) 82.0 H Lymph % (Auto) 9.0 L [place] % (Auto) 4.5 Eos % (Auto) 2.4 Baso % (Auto) 0.9 Lymph # (Auto) 1.04 [place] # (Auto) 0.5 Eos # (Auto) 0.3 Baso # (Auto) 0.1 Abs Immat Gran (auto) 0.14 H Absolute Neuts (auto) 9.5 H Absolute Nucleated RBC 0.000 Nucleated RBC % 0.0 Sodium 128 L Potassium 3.3 L Chloride 99 Carbon Dioxide 27 Anion Gap 2 L BUN 7 Creatinine 0.56 L Estim Creat Clear Calc Not Reportable Estimated GFR > 60 Glucose 98 POC Capillary Glucose 114 H 102 Calcium 8.6 Magnesium 1.7 Total Bilirubin 0.3 AST 34 ALT 23 Alkaline Phosphatase 179 H Total Protein 5.6 L Albumin 2.3 L Vancomycin Trough 15.1 12/26/24 12/26/24 08:26 11:38 WBC RBC Hgb Hct MCV MCH MCHC RDW Plt Count MPV Immature Gran % (Auto) Neut % (Auto) Lymph % (Auto) [place] % (Auto) Eos % (Auto) Baso % (Auto) Lymph # (Auto) [place] # (Auto) Eos # (Auto) Baso # (Auto) Abs Immat Gran (auto) Absolute Neuts (auto) Absolute Nucleated RBC Nucleated RBC % Sodium Potassium Chloride Carbon Dioxide Anion Gap BUN Creatinine Estim Creat Clear Calc Estimated GFR Glucose POC Capillary Glucose 115 H 143 H Calcium Magnesium Total Bilirubin AST ALT Alkaline Phosphatase Total Protein Albumin Vancomycin Trough
[2024-12-26] MEDS: HYDROcodone/acetaminophen (*CRX) 10-325 MG TABLET 1 TAB PO ×2 (14:46→20:59)
--- NOTE | 2024-12-26 15:32 | PM.PNGS ---
Progress Note: A&P Assessment and Plan (1) Ileocolic anastomotic leak: Code(s): K91.89 - Other postprocedural complications and disorders of digestive system Status: Acute Assessment and Plan: Wound VAC changed yesterday. Will change again tomorrow. Abdominal wound is healing well. ID recommending repeat CT of the abdomen to determine length of course of abx Continue daily iodoform packing dressing changes to RLQ wound where JUHI drain was removed. Continue IV antibiotics, ID following and suggesting IV antibiotic therapy through 01/01/25 Continue PT/OT, increase activity as tolerated (2) Protein calorie malnutrition: Qualifiers: Protein-calorie malnutrition severity: severe Qualified Code(s): E43 - Unspecified severe protein-calorie malnutrition Code(s): E46 - Unspecified protein-calorie malnutrition Status: Acute Assessment and Plan: Continue to encourage PO intake and Ensure supplements. Still complaining of mouth sores, will monitor for thrush given her extensive antibiotics. Initially it looked like extremely dry mucosa with crusting, potentially from being NPO for so long. This looks better with frequent mouth care and now that she is drinking/eating. Will try magic mouthwash for her symptoms. Encouraged PO intake. If starting to look like thrush, then could add nystatin. (3) C. difficile diarrhea: Onset Date: ~04/01/24 Code(s): A04.72 - Enterocolitis due to Clostridium difficile, not specified as recurrent Status: Suspected Assessment and Plan: Diarrhea resolved, so ID recommending to stop vancomycin and monitor Plan I have discussed the patient's case and plan of care with Dr. Burch. Subjective Subjective Date/Time Seen: 12/26/24 15:32 Patient reports: no new complaints, feels better, still having pain and afebrile Interval history: Patient doing well today. No new complaints. Sitting up in chair with sister at bedside. WBC 11.6, down from 12.6. Afebrile Exam GI: Inspection: non-distended GI Palp: Yes Soft to palpation, No Tenderness to palpation present (GI) and No Guarding due to palpation present (GI) Other: Wound vac in place and functioning properly. Ostomy intact and with good output. Stoma pink and viable. Drain with minimal tovar output. Objective Data Vital Signs Vital Signs: Vital Signs - 24 hr 12/25/24 16:05 12/25/24 20:00 12/25/24 20:00 Temperature Pulse Rate 87 92 Respiratory Rate Blood Pressure Pulse Oximetry Oxygen Delivery Room Air 12/25/24 22:00 12/26/24 00:00 12/26/24 04:00 Temperature 98.7 F Pulse Rate 82 85 74 Respiratory Rate 18 Blood Pressure 131/91 H Pulse Oximetry 97 Oxygen Delivery 12/26/24 06:00 12/26/24 08:05 12/26/24 09:50 Temperature 97.7 F Pulse Rate 95 95 Respiratory Rate 18 Blood Pressure 157/91 H Pulse Oximetry 96 Oxygen Delivery Room Air 12/26/24 12:06 12/26/24 13:59 Temperature 98.2 F Pulse Rate 90 94 Respiratory Rate 16 Blood Pressure 149/83 H Pulse Oximetry 99 Oxygen Delivery Intake/Output Intake/Output: Intake & Output 12/23/24 12/24/24 12/25/24 12/26/24 23:59 23:59 23:59 23:59 Intake Total 3087 2537 3600 1137 Output Total 970 3555 2085 1850 Balance 2117 -1018 1515 -713 Meds/Results Medications: Active Medications Generic Name Dose Route Start Last Admin Trade Name Freq PRN Reason Stop Dose Admin Acetaminophen 650 mg 12/18/24 15:40 Acetaminophen 325 Mg Tablet PO Q4H PRN Mild Pain (1-3) or Fever Hydrocodone Bitart/Acetaminophen 1 tab 12/18/24 15:40 12/26/24 09:08 Hydrocodone/Acetaminophen (*Crx) 5-325 Mg Tablet PO 1 tab Q4H PRN Administration Pain Rated 4-6 Hydrocodone Bitart/Acetaminophen 1 tab 12/18/24 15:40 12/26/24 14:46 Hydrocodone/Acetaminophen (*Crx) 10-325 Mg Tablet PO 1 tab Q6H PRN Administration Pain Rated 7-10 Lidocaine HCl 30 ml/ Al Hydrox 0 ml 12/25/24 13:00 12/26/24 12:54 /Mg Hydrox/Simethicone 30 ml/ PO 5 ml Diphenhydramine HCl 75 mg Q4HWA CEE Administration Dextrose 12.5 gm 12/14/24 10:29 Dextrose 50% 25 Gm/50 Ml Syringe IV PUSH PRN PRN Hypoglycemia Protocol Enoxaparin Sodium 40 mg 12/07/24 09:00 12/26/24 09:09 Enoxaparin 40 Mg/0.4 Ml Syringe SUB-Q 40 mg DAILY CEE Administration Glucose 15 gm 12/14/24 10:29 Glucose Oral Gel 15 Gm Of Glucse In 37.5 Gm Tube PO PRN PRN Hypoglycemia Protocol Dextrose 1,000 mls @ 100 mls/hr 12/14/24 10:29 Dextrose 5% 1,000 Ml IVPB PRN PRN Hypoglycemia Protocol Piperacillin Sod/Tazobactam 50 mls @ 100 mls/hr 12/17/24 14:30 12/26/24 12:51 Sod 3.375 gm/ Sodium Chloride IVPB 01/01/25 23:59 100 mls/hr Q6HR CEE Administration Fluconazole 400 mg in 200 mls @ 100 mls/hr 12/19/24 13:30 12/26/24 09:10 Diflucan 400 Mg/Nacl 200 Ml IVPB 01/01/25 10:59 100 mls/hr DAILY CEE Administration Insulin Aspart 3 - 6 units 12/22/24 08:00 12/26/24 12:51 Insulin Aspart (*Bkc) 100 Units/Ml SUB-Q Not Given TIDWM [facility] Protocol Lorazepam 1 mg 12/22/24 14:58 Lorazepam (*Crx) 1 Mg Tablet PO BID PRN Anxiety Naloxone HCl 0.1 mg 12/06/24 17:15 Naloxone Hcl 0.4 Mg/Ml Vial IV PUSH Q2M PRN Opiate Reversal Ondansetron HCl 4 mg 12/03/24 17:26 12/09/24 05:23 Ondansetron Inj 4 Mg/2 Ml Vial IV PUSH 4 mg Q4H PRN Administration Nausea And Vomiting Pantoprazole Sodium 40 mg 12/07/24 09:00 12/26/24 09:09 Pantoprazole Sodium Iv 40 Mg Vial IV PUSH 40 mg QAM CEE Administration Phenol 1 spray 12/07/24 10:05 Phenol/Sod Pheno [place] Salomon (*Bkc) MUCOUS MEM Q2H PRN Sore Throat Sodium Chloride 10 ml 12/07/24 14:00 12/26/24 14:46 Central Line Flush IV PUSH 10 ml Q8HR CEE Administration Sodium Chloride 20 ml 12/07/24 09:45 12/21/24 05:30 Central Line Flush IV PUSH 20 ml PRN PRN Administration after blood draws Radiology Results: ITS Impressions Renal Ultrasound 12/04/24 21:30 Impression: 1: Unremarkable renal ultrasound. No stones, masses or hydronephrosis. Pulmonary Perfusion Imaging 12/05/24 18:55 IMPRESSION: 1: Normal perfusion scan. Probable shallow lung volumes. Recommend correlation with chest x-ray.. Chest/Abdomen/Pelvis CT 12/10/24 10:51 IMPRESSION: 1. Small amount of likely residual free intraperineal gas and fluid post likely revision of an ileocolic anastomosis and placement of a surgical drain. No evident organized abscess or extraluminal contrast to suggest residual anastomotic leak. 2. Wall thickening along the sigmoid colon consistent with colitis infectious or inflammatory in etiology. Differential would also include residual reactive edema related to the prior anastomotic leak and recent surgery. 3. Volume loss in both lungs with atelectasis at the bilateral lung bases including complete collapse of the right middle lobe. Superimposed pneumonia not excludable but suspicion is low. 4. Chronic mild dilation the common bile duct without evident obstructing stone or mass, likely related to prior cholecystectomy but would correlate with liver function tests. CT Brain Angiography 12/13/24 11:34 IMPRESSION: 1. Normal aging brain. No acute intracranial process or abnormally enhancing brain lesions. 2. Unremarkable cerebral CT angiogram with no hemodynamic significant stenosis, thrombosis or aneurysm. Chest X-Ray 12/13/24 12:26 IMPRESSION: 1. Persistent bibasilar atelectasis and/or airspace disease. 2. No significant change from one week prior. Abdomen/Pelvis CT 12/13/24 12:45 IMPRESSION: 1. Status post right hemicolectomy with anastomotic leak at the right lower quadrant ileocolic anastomosis. 2. Moderate bibasilar atelectasis, right greater than left with mucous bony of right middle and lower lobar bronchi. Chest CTA 12/13/24 12:45 IMPRESSION: 1. No pulmonary embolus. Sensitivity is moderately decreased by motion artifact. 2. Small lung volumes with relative elevation of right hemidiaphragm. Moderate atelectasis in the inferior lungs 3. Ascites. Labs Labs: Laboratory Results - last 24 hr 12/25/24 12/25/24 12/26/24 16:41 21:56 02:04 WBC 11.6 H RBC 3.09 L Hgb 8.3 L Hct 26.6 L MCV 86.1 MCH 26.9 MCHC 31.2 L RDW 19.4 H Plt Count 504 H MPV 9.1 Immature Gran % (Auto) 1.2 H Neut % (Auto) 82.0 H Lymph % (Auto) 9.0 L [place] % (Auto) 4.5 Eos % (Auto) 2.4 Baso % (Auto) 0.9 Lymph # (Auto) 1.04 [place] # (Auto) 0.5 Eos # (Auto) 0.3 Baso # (Auto) 0.1 Abs Immat Gran (auto) 0.14 H Absolute Neuts (auto) 9.5 H Absolute Nucleated RBC 0.000 Nucleated RBC % 0.0 Sodium 128 L Potassium 3.3 L Chloride 99 Carbon Dioxide 27 Anion Gap 2 L BUN 7 Creatinine 0.56 L Estim Creat Clear Calc Not Reportable Estimated GFR > 60 Glucose 98 POC Capillary Glucose 114 H 102 Calcium 8.6 Magnesium 1.7 Total Bilirubin 0.3 AST 34 ALT 23 Alkaline Phosphatase 179 H Total Protein 5.6 L Albumin 2.3 L Vancomycin Trough 15.1 12/26/24 12/26/24 08:26 11:38 WBC RBC Hgb Hct MCV MCH MCHC RDW Plt Count MPV Immature Gran % (Auto) Neut % (Auto) Lymph % (Auto) [place] % (Auto) Eos % (Auto) Baso % (Auto) Lymph # (Auto) [place] # (Auto) Eos # (Auto) Baso # (Auto) Abs Immat Gran (auto) Absolute Neuts (auto) Absolute Nucleated RBC Nucleated RBC % Sodium Potassium Chloride Carbon Dioxide Anion Gap BUN Creatinine Estim Creat Clear Calc Estimated GFR Glucose POC Capillary Glucose 115 H 143 H Calcium Magnesium Total Bilirubin AST ALT Alkaline Phosphatase Total Protein Albumin Vancomycin Trough
[2024-12-27] VITALS (10 sets, daily range): BP systolic 140–155; BP diastolic 76–87; PULSE 85–101; RESP 16–18; TEMP 36.3–36.6; O2SAT 95–98
[2024-12-27] MEDS: PIPERACILLIN/TAZOBACTAM SOD 3.375 GM in SODIUM CHLORIDE 0.9% IV 50 ML 100 ML IVPB ×4 (00:40→17:30)
[2024-12-27] MEDS: CENTRAL LINE FLUSH 10 ML IV PUSH ×3 (05:45→21:59)
[2024-12-27] MEDS: LIDOCAINE 2% VISC SOLN 30 ML, ALUMINUM/MAGNESIUM/SIMETH SUSP 30 ML, diphenhydrAMINE HCl... PO ×5 (05:46→22:01)
[2024-12-27] MEDS: HYDROcodone/acetaminophen (*CRX) 10-325 MG TABLET 1 TAB PO ×3 (06:30→19:06)
[2024-12-27] MEDS: PANTOPRAZOLE SODIUM IV 40 MG VIAL IV PUSH ×2 (08:52→21:59)
[2024-12-27] MEDS: FLUCONAZOLE 400 MG/NACL 200 ML 400 MG/200 ML BAG 100 MG IVPB (08:53)
[2024-12-27 09:54] LABS: Hematocrit 26.3 % (37.0-47.0); Hemoglobin 8.2 g/dL (12.0-15.0); Mean Corpuscular HGB Conc 31.2 g/dl (32-36); Mean Corpuscular Hemoglobin 26.8 pg (26-34); Mean Corpuscular Volume 85.9 fl (80-100); Platelet Count Result 560 k/mm3 (150-375); Red Blood Count 3.06 M/mm3 (4.2-5.4); White Blood Count 11.8 K/mm3 (4.5-10.0)
[2024-12-27 09:55] LABS: IFOB Positive Control Positive; Immunochemical Fecal Occult Bl Positive (N)
[2024-12-27 10:28] LABS: Anion Gap 2 mmol/L (4-12); Blood Urea Nitrogen 5 mg/dL (7-17); Calcium 8.3 mg/dL (8.4-10.2); Carbon Dioxide 30 mmol/L (22-30); Chloride 98 mmol/L (98-107); Estimated Glomerular Filt Rate > 60; Glucose 87 mg/dL (65-110); Magnesium 1.7 mg/dL (1.6-2.3); Potassium 3.1 mmol/L (3.4-5.0); Sodium 130 mmol/L (137-145)
--- NOTE | 2024-12-27 10:54 | PCNFU ---
Nutrition Follow-Up Complete: Inadequate energy intake related to altered GI function as evidenced by need for full TPN Goal: Meet estimated nutrition needs Patient will remain on current goal. Pt current nutrition is Regular with Ensure TID. Last recorded weight is 71.6 kg. Bowel Motility: Last reported BM 12/27 Labs Reviewed: Cr 0.56, Na 128, Hgb 8.3, Hct 26.6 Meds Noted: Protonix, NovoLog, Zofran Skin: wound vac-abdomen Additional Notes: Patient remains on a regular diet. Oral Intake has been 10-25% of meals. Patient is drinking diet supplements which are providing an additional 350 kcal and 20 gm protein. Mouth sores are improving. Agree with diet orders. Monitoring TPN tolerance, labs, weights, GI function, diet advancement, plan of care every 3 days.
--- NOTE | 2024-12-27 11:16 | P.PNGS_ITS ---
Progress Note: A&P Assessment and Plan (1) Ileocolic anastomotic leak: Code(s): K91.89 - Other postprocedural complications and disorders of digestive system Status: Acute Assessment and Plan: * Wound VAC changed today. Appears to be healing well with mostly pink granulation tissue. Small area at the base with yellow slough and some yellow drainage. Repeat CT yesterday showed appropriate healing with no acute changes. Small amount of fluid still present where JUHI drain is in place. Will keep in for now and likely remove prior to discharge. Next wound vac change will be Monday if patient is still inpatient. * Patient did have abnormally dark stool in ostomy bag this morning. Stool occult blood positive. Will discuss with surgeon. * Care coordination in touch with [facility]. There was some concern with patient's noncompliance to PT/OT, but patient states that she has now been working with them daily. * Continue daily iodoform packing dressing changes to RLQ wound where JUHI drain was removed. * Continue IV antibiotics, ID following and suggesting IV antibiotic therapy through 01/01/25 * Continue PT/OT, increase activity as tolerated (2) Protein calorie malnutrition: Qualifiers: Protein-calorie malnutrition severity: severe Qualified Code(s): E43 - Unspecified severe protein-calorie malnutrition Code(s): E46 - Unspecified protein-calorie malnutrition Status: Acute Assessment and Plan: * Continue to encourage PO intake and Ensure supplements. * Monitor mouth for thrush given extensive course of abx. (3) C. difficile diarrhea: Onset Date: ~04/01/24 Code(s): A04.72 - Enterocolitis due to Clostridium difficile, not specified as recurrent Status: Suspected Assessment and Plan: * Diarrhea resolved, so ID recommending to stop vancomycin and monitor Plan I have discussed the patient's case and plan of care with Dr. Burch. Subjective Subjective Date/Time Seen: 12/27/24 11:16 Patient reports: no new complaints and tolerating a regular diet Interval history: No new complaints from patient today. Afebrile. WBC 11.8. K+ 3.1. Reportedly, wound vac dressing was slightly compromised last night due to spillage from ost rosendo. Reinforced by nursing staff. Exam Const: General: comfortable and no acute distress GI: Inspection: normal to inspection, non-distended, incision (Wound VAC dressing dry and intact), no visible herniation and other (mildly distended) Auscultation: normal bowel sounds and Hypoactive bowel sounds present (Very hypoactive) Rectal Exam: deferred Other: Wound vac changed today with wound care nurse. Wound bed is mostly pink granulation tissue. Small area at the base of yellow slough. Fascial sutures visible. No evisceration visible. Ostomy intact, however output is very dark black. Stoma pink and viable. Drain with minimal serosanguineous output. RLQ iodoform packing changed today. Skin: General skin exam: normal color and no rashes or lesions noted Objective Data Vital Signs Vital Signs: Vital Signs - 24 hr 12/26/24 12:06 12/26/24 13:59 12/26/24 16:05 Temperature 98.2 F Pulse Rate 90 94 88 Respiratory Rate 16 Blood Pressure 149/83 H Pulse Oximetry 99 Oxygen Delivery 12/26/24 20:00 12/26/24 20:09 12/26/24 22:30 Temperature 97.0 F L Pulse Rate 89 81 Respiratory Rate 18 Blood Pressure 154/85 H Pulse Oximetry 97 99 Oxygen Delivery Room Air 12/27/24 00:00 12/27/24 04:00 12/27/24 06:00 Temperature 97.4 F L Pulse Rate 90 85 90 Respiratory Rate 18 Blood Pressure 142/87 H Pulse Oximetry 97 Oxygen Delivery 12/27/24 08:45 Temperature Pulse Rate Respiratory Rate Blood Pressure Pulse Oximetry Oxygen Delivery Room Air Intake/Output Intake/Output: Intake & Output 12/24/24 12/25/24 12/26/24 12/27/24 23:59 23:59 23:59 23:59 Intake Total 2537 3600 3697 500 Output Total 3555 2085 2150 2175 Balance -1018 1515 1547 -1675 Meds/Results Medications: Active Medications Generic Name Dose Route Start Last Admin Trade Name Freq PRN Reason Stop Dose Admin Acetaminophen 650 mg 12/18/24 15:40 Acetaminophen 325 Mg Tablet PO Q4H PRN Mild Pain (1-3) or Fever Hydrocodone Bitart/Acetaminophen 1 tab 12/18/24 15:40 12/26/24 09:08 Hydrocodone/Acetaminophen (*Crx) 5-325 Mg Tablet PO 1 tab Q4H PRN Administration Pain Rated 4-6 Hydrocodone Bitart/Acetaminophen 1 tab 12/18/24 15:40 12/27/24 06:30 Hydrocodone/Acetaminophen (*Crx) 10-325 Mg Tablet PO 1 tab Q6H PRN Administration Pain Rated 7-10 Alteplase, Recombinant 2 mg 12/27/24 10:16 Alteplase 2 Mg Vial (Cathflo) IV PUSH ONCE PRN Line Occlusion Lidocaine HCl 30 ml/ Al Hydrox 0 ml 12/25/24 13:00 12/27/24 08:53 /Mg Hydrox/Simethicone 30 ml/ PO 5 ml Diphenhydramine HCl 75 mg Q4HWA CEE Administration Dextrose 12.5 gm 12/14/24 10:29 Dextrose 50% 25 Gm/50 Ml Syringe IV PUSH PRN PRN Hypoglycemia Protocol Enoxaparin Sodium 40 mg 12/07/24 09:00 12/26/24 09:09 Enoxaparin 40 Mg/0.4 Ml Syringe SUB-Q 40 mg DAILY CEE Administration Glucose 15 gm 12/14/24 10:29 Glucose Oral Gel 15 Gm Of Glucse In 37.5 Gm Tube PO PRN PRN Hypoglycemia Protocol Dextrose 1,000 mls @ 100 mls/hr 12/14/24 10:29 Dextrose 5% 1,000 Ml IVPB PRN PRN Hypoglycemia Protocol Piperacillin Sod/Tazobactam 50 mls @ 100 mls/hr 12/17/24 14:30 12/27/24 06:15 Sod 3.375 gm/ Sodium Chloride IVPB 01/01/25 23:59 Infused Q6HR CEE Infusion Fluconazole 400 mg in 200 mls @ 100 mls/hr 12/19/24 13:30 12/27/24 08:53 Diflucan 400 Mg/Nacl 200 Ml IVPB 01/01/25 10:59 100 mls/hr DAILY CEE Administration Insulin Aspart 3 - 6 units 12/22/24 08:00 12/27/24 08:52 Insulin Aspart (*Bkc) 100 Units/Ml SUB-Q Not Given TIDWM CEE Protocol Lorazepam 1 mg 12/22/24 14:58 Lorazepam (*Crx) 1 Mg Tablet PO BID PRN Anxiety Naloxone HCl 0.1 mg 12/06/24 17:15 Naloxone Hcl 0.4 Mg/Ml Vial IV PUSH Q2M PRN Opiate Reversal Ondansetron HCl 4 mg 12/03/24 17:26 12/09/24 05:23 Ondansetron Inj 4 Mg/2 Ml Vial IV PUSH 4 mg Q4H PRN Administration Nausea And Vomiting Pantoprazole Sodium 40 mg 12/07/24 09:00 12/27/24 08:52 Pantoprazole Sodium Iv 40 Mg Vial IV PUSH 40 mg QAM CEE Administration Phenol 1 spray 12/07/24 10:05 Phenol/Sod Pheno [place] (*Bkc) MUCOUS MEM Q2H PRN Sore Throat Sodium Chloride 10 ml 12/07/24 14:00 12/27/24 05:45 Central Line Flush IV PUSH 10 ml Q8HR CEE Administration Sodium Chloride 20 ml 12/07/24 09:45 12/21/24 05:30 Central Line Flush IV PUSH 20 ml PRN PRN Administration after blood draws Radiology Results: ITS Impressions Renal Ultrasound 12/04/24 21:30 Impression: 1: Unremarkable renal ultrasound. No stones, masses or hydronephrosis. Pulmonary Perfusion Imaging 12/05/24 18:55 IMPRESSION: 1: Normal perfusion scan. Probable shallow lung volumes. Recommend correlation with chest x-ray.. Chest/Abdomen/Pelvis CT 12/10/24 10:51 IMPRESSION: 1. Small amount of likely residual free intraperineal gas and fluid post likely revision of an ileocolic anastomosis and placement of a surgical drain. No evident organized abscess or extraluminal contrast to suggest residual anastomotic leak. 2. Wall thickening along the sigmoid colon consistent with colitis infectious or inflammatory in etiology. Differential would also include residual reactive edema related to the prior anastomotic leak and recent surgery. 3. Volume loss in both lungs with atelectasis at the bilateral lung bases including complete collapse of the right middle lobe. Superimposed pneumonia not excludable but suspicion is low. 4. Chronic mild dilation the common bile duct without evident obstructing stone or mass, likely related to prior cholecystectomy but would correlate with liver function tests. CT Brain Angiography 12/13/24 11:34 IMPRESSION: 1. Normal aging brain. No acute intracranial process or abnormally enhancing brain lesions. 2. Unremarkable cerebral CT angiogram with no hemodynamic significant stenosis, thrombosis or aneurysm. Chest X-Ray 12/13/24 12:26 IMPRESSION: 1. Persistent bibasilar atelectasis and/or airspace disease. 2. No significant change from one week prior. Chest CTA 12/13/24 12:45 IMPRESSION: 1. No pulmonary embolus. Sensitivity is moderately decreased by motion artifact. 2. Small lung volumes with relative elevation of right hemidiaphragm. Moderate atelectasis in the inferior lungs 3. Ascites. Abdomen/Pelvis CT 12/26/24 17:56 IMPRESSION: Decrease in intra-abdominal free fluid. All CT scans at this facility are performed using low dose modulation techniques as appropriate to perform exam including the following: automated exposure control; use of iterative reconstruction technique; adjustment of the mA and/or kV according to patient size (this includes techniques or standardized protocols for targeted exams where dose is matched to indication/reason for exam). Labs Labs: Laboratory Results - last 24 hr 12/26/24 12/26/24 12/26/24 11:38 16:47 22:25 WBC RBC Hgb Hct MCV MCH MCHC RDW Plt Count MPV Sodium Potassium Chloride Carbon Dioxide Anion Gap BUN Creatinine Estim Creat Clear Calc Estimated GFR Glucose POC Capillary Glucose 143 H 105 157 H Calcium Phosphorus Magnesium Stl Occult Blood (IFOB) 12/27/24 12/27/24 08:13 09:22 WBC 11.8 H RBC 3.06 L Hgb 8.2 L Hct 26.3 L MCV 85.9 MCH 26.8 MCHC 31.2 L RDW 19.1 H Plt Count 560 H MPV 9.2 Sodium 130 L Potassium 3.1 L Chloride 98 Carbon Dioxide 30 Anion Gap 2 L BUN 5 L Creatinine 0.58 L Estim Creat Clear Calc Not Reportable Estimated GFR > 60 Glucose 87 POC Capillary Glucose 107 H Calcium 8.3 L Phosphorus 3.6 Magnesium 1.7 Stl Occult Blood (IFOB) Positive H
[2024-12-27] MEDS: ALTEPLASE 2 MG VIAL (CATHFLO) IV PUSH (11:57)
[2024-12-27] MEDS: POTASSIUM CHLORIDE INJ 40 MEQ in SODIUM CHLORIDE 0.9% IV 500 ML 130 MEQ IVPB (12:33)
--- NOTE | 2024-12-27 14:08 | P.PNIM_ITS ---
Progress Note: A&P Assessment and Plan (1) History of partial colectomy: Code(s): Z90.49 - Acquired absence of other specified parts of digestive tract Status: Resolved (2) Ileocolic anastomotic leak: Code(s): K91.89 - Other postprocedural complications and disorders of digestive system Status: Acute (3) Acute blood loss anemia: Code(s): D62 - Acute posthemorrhagic anemia Status: Acute (4) Acute hypoxemic respiratory failure: Code(s): J96.01 - Acute respiratory failure with hypoxia Status: Acute Plan 64 y/o F with PMH of cancer the right colon S/P right colectomy, thrombosis of the mesenteric vein, WILL, diverticulitis, rhabdomyolysis (2021), hyperlipidemia and hypertension presented here on 12/03 with difficulty urinating. Previously underwent a hand assisted laparoscopic right colectomy with extensive adhesiolysis, mobilization of hepatic flexure by Dr. May on 11/27/24. Discharge on postop day 2 as she was doing well. At home she has had worsening abdominal pain, constipation. On readmission she has had a lengthy hospital course, on 12/06 undergoing a exploratory laparotomy with ileocolic resection with [id number] ileo colic anastomosis drainage of intra-abdominal abscess with placement of wound VAC. Due to bile in JUHI drains she had a repeat abdomen pelvis CT with water-soluble oral contrast demonstrating right hemicolectomy with anastomotic leak. On 12/13/2024 she underwent re-exploration with ileocolic resection with end ileostomy and mucous fistula creation and placement of wound VAC within subcutaneous space measuring 12 cm x 3 cm. General surgery managing wounds, wound VAC, JUHI drain. Currently on TPN. Wound care per surgery and unit protocol and wound care. Next wound VAC Saturday 12/23. Malnutrition: Related to surgery, continue TPN. NG tube in place which is clamped. Started on clear liquid per General surgery. This has been advanced to full liquid now. NG has been removed 12/17/2024 Sepsis: Monitor leukocytosis, tachypnea, tachycardia. Overall trend of leukocytosis has peaked at 19.9 on 12/08/2024, currently improving to 12. Continue to monitor along with procalcitonin. Infectious Disease consulted, continue zosyn, fluconazole, vancomycin p.o. 12/04/2024 blood culture x2 negative, final. vancomycin oral needs to transition to administration through mucous fistula- difficulty administering, surgery to be notified C diff colitis: Appreciate ID recommendations, p.o. vancomycin total 3 weeks via ostomy has been unable to be administered since 12/22 due to difficulty with stoma. Patient failed stoma Vancomycin administration and failed Vanc enema Holding PO Vanc for, ID and Gen surgery on board Stool is forming now Patient comfortable at bedside Post hemorrhagic anemia: Monitor daily hemoglobin, stable. Restart Lovenox 40 mg subQ q.day for DVT prophylaxis when okay by surgery. Hypocalcemia: After correction for hypoalbuminemia, 8.1. Continue to monitor. Elevated blood glucose readings: HbA1c 6.0%. Accu-Cheks q.6 hours with hypoglycemia protocol and low-dose insulin sliding scale. Acute hypoxic respiratory failure: Patient weaned to room air on 12/15/2024. Due to atelectasis, CTA chest did not demonstrate pneumonia/PE. Continue incentive spirometer and EzPAP q.i.d.. Mobilize as soon as possible. Acute kidney injury and urinary retention: Could be due to hypovolemia, anemia, urinary retention, sepsis, contrast exposure. DARRYL has resolved. Nephrology signed off. Limon catheter remains due to surgery and immobility. Hypertension: [address] [employer] antihypertensives on hold. Monitor blood pressure. Anemia hemoglobin down to 6.6 12/18/2024 1 unit PRBC. Now stable at 8.8. Intraabdominal abscess Continue Zosyn, Fluconazole and Vanc until 01/01 per ID Melena stool noted this morning and FOBT positive on PPI GI consulted DVT prophylaxis: SCDs. Lovenox 40 mg daily currently on hold due to anemia Nutrition: regular Prophylaxis: Protonix 40 mg IV q.a.m. for ulcer prophylaxis. PT/OT following Right upper extremity PICC line Deconditioning, PT/OT as appropriate per General surgery team. EzPAP, incentive spirometer. Patient wishes to be full code. Prior to admission she lives at home and was independent. Awaiting GI eval Subjective Date/time seen: 12/27/24 14:08 Interval history: Comfortable at bedside Melena stool with positive FOBT, GI consulted Review of Systems 2 Review of Systems: All systems reviewed & are unremarkable except as noted in HPI and below (Subjective) Exam Narrative: GENERAL: Alert and oriented x3, not in acute distress HEAD: Normal with no signs of head trauma. EYES: EOMI, conjunctiva normal ENT: Hearing grossly intact LUNGS: Nonlabored breathing. No adventitious sounds HEART: [Regular rate and rhythm], no murmurs ABD: [Soft], mildly distended, mild tenderness, surgical incision with wound VAC, clean dry and intact. Colostomy and RLQ stoma noted. EXT: Normal range of motion SKIN: [No rashes or lesions.] NEURO: [Alert and oriented x 3. No gross focal sensory or strength deficits.] PSYCH: Normal affect Const: General: comfortable and no acute distress Other: A&O x3 HENMT: Face/Nose/Sinus: Normal nares present Mouth: Yes moist mucous membranes and Yes dry mucous membranes Eyes: General: appearance normal, both eyes and all related structures Sclera: sclerae normal Pupils: Equal, round and reactive pupils present EOM: EOMs intact bilaterally Neck: Neck: supple Resp: Effort & Inspection: normal respiratory effort Auscultation: clear to auscultation bilaterally and crackles Other: Slowly decreased breath sounds at bilateral bases, no crackles/wheezing/rhonchi Cardio: Rate: regular rate and tachycardic Rhythm: regular rhythm Heart sounds: no gallops and no murmurs Other: S1-S2 present without murmur, rub, ectopy GI: Inspection: non-distended Other: Right-sided mucous fistula with serosanguineous drainage, end ileostomy with light brown serous drainage, JUHI drain with serosanguineous drainage, wound VAC intact. Urinary Catheter: Urinary Catheter: patent and draining Skin: General skin exam: normal color and no rashes or lesions noted Other: Postsurgical incision to abdomen is well approximated, sutures in place, no signs of infection Neuro: Cranial nerves: Yes Equal, round and reactive pupils present Speech: normal speech Motor exam (neuro): 5/5 motor strength present throughout Sensory Exam: normal sensation Other: Generalized weakness Extrem: General: normal to inspection and edema Other: Trace edema bilateral lower extremities Psych: Mental Status: mental status grossly normal Affect: normal affect Other: Good insight and judgment, pleasant Objective Data Vital Signs Vital Signs: Vital Signs - 24 hr 12/26/24 16:05 12/26/24 20:00 12/26/24 20:09 Temperature Pulse Rate 88 89 Respiratory Rate Blood Pressure Pulse Oximetry 97 Oxygen Delivery Room Air 12/26/24 22:30 12/27/24 00:00 12/27/24 04:00 Temperature 97.0 F L Pulse Rate 81 90 85 Respiratory Rate 18 Blood Pressure 154/85 H Pulse Oximetry 99 Oxygen Delivery 12/27/24 06:00 12/27/24 08:45 Temperature 97.4 F L Pulse Rate 90 Respiratory Rate 18 Blood Pressure 142/87 H Pulse Oximetry 97 Oxygen Delivery Room Air Intake/Output Intake/Output: Intake & Output 12/24/24 12/25/24 12/26/24 12/27/24 23:59 23:59 23:59 23:59 Intake Total 2537 3600 3697 737 Output Total 3555 2085 2150 2690 Balance -1018 1515 1547 -0083 Meds/Results Medications: Active Medications Generic Name Dose Route Start Last Admin Trade Name Freq PRN Reason Stop Dose Admin Acetaminophen 650 mg 12/18/24 15:40 Acetaminophen 325 Mg Tablet PO Q4H PRN Mild Pain (1-3) or Fever Hydrocodone Bitart/Acetaminophen 1 tab 12/18/24 15:40 12/26/24 09:08 Hydrocodone/Acetaminophen (*Crx) 5-325 Mg Tablet PO 1 tab Q4H PRN Administration Pain Rated 4-6 Hydrocodone Bitart/Acetaminophen 1 tab 12/18/24 15:40 12/27/24 12:33 Hydrocodone/Acetaminophen (*Crx) 10-325 Mg Tablet PO 1 tab Q6H PRN Administration Pain Rated 7-10 Alteplase, Recombinant 2 mg 12/27/24 10:16 12/27/24 11:57 Alteplase 2 Mg Vial (Cathflo) IV PUSH 2 mg ONCE PRN Administration Line Occlusion Lidocaine HCl 30 ml/ Al Hydrox 0 ml 12/25/24 13:00 12/27/24 12:04 /Mg Hydrox/Simethicone 30 ml/ PO 5 ml Diphenhydramine HCl 75 mg Q4HWA CEE Administration Dextrose 12.5 gm 12/14/24 10:29 Dextrose 50% 25 Gm/50 Ml Syringe IV PUSH PRN PRN Hypoglycemia Protocol Enoxaparin Sodium 40 mg 12/07/24 09:00 12/27/24 11:53 Enoxaparin 40 Mg/0.4 Ml Syringe SUB-Q Not Given DAILY CEE Glucose 15 gm 12/14/24 10:29 Glucose Oral Gel 15 Gm Of Glucse In 37.5 Gm Tube PO PRN PRN Hypoglycemia Protocol Dextrose 1,000 mls @ 100 mls/hr 12/14/24 10:29 Dextrose 5% 1,000 Ml IVPB PRN PRN Hypoglycemia Protocol Piperacillin Sod/Tazobactam 50 mls @ 100 mls/hr 12/17/24 14:30 12/27/24 11:52 Sod 3.375 gm/ Sodium Chloride IVPB 01/01/25 23:59 100 mls/hr Q6HR CEE Administration Fluconazole 400 mg in 200 mls @ 100 mls/hr 12/19/24 13:30 12/27/24 08:53 Diflucan 400 Mg/Nacl 200 Ml IVPB 01/01/25 10:59 100 mls/hr DAILY CEE Administration Potassium Chloride 40 meq/ 520 mls @ 130 mls/hr 12/27/24 11:21 12/27/24 12:33 Sodium Chloride IVPB 12/27/24 15:20 130 mls/hr ONCE ONE Administration Insulin Aspart 3 - 6 units 12/22/24 08:00 12/27/24 11:58 Insulin Aspart (*Bkc) 100 Units/Ml SUB-Q Not Given TIDWM [facility] Protocol Lorazepam 1 mg 12/22/24 14:58 Lorazepam (*Crx) 1 Mg Tablet PO BID PRN Anxiety Naloxone HCl 0.1 mg 12/06/24 17:15 Naloxone Hcl 0.4 Mg/Ml Vial IV PUSH Q2M PRN Opiate Reversal Ondansetron HCl 4 mg 12/03/24 17:26 12/09/24 05:23 Ondansetron Inj 4 Mg/2 Ml Vial IV PUSH 4 mg Q4H PRN Administration Nausea And Vomiting Pantoprazole Sodium 40 mg 12/07/24 09:00 12/27/24 08:52 Pantoprazole Sodium Iv 40 Mg Vial IV PUSH 40 mg QAM CEE Administration Phenol 1 spray 12/07/24 10:05 Phenol/Sod Pheno [place] (*Bkc) MUCOUS MEM Q2H PRN Sore Throat Sodium Chloride 10 ml 12/07/24 14:00 12/27/24 05:45 Central Line Flush IV PUSH 10 ml Q8HR CEE Administration Sodium Chloride 20 ml 12/07/24 09:45 12/21/24 05:30 Central Line Flush IV PUSH 20 ml PRN PRN Administration after blood draws Radiology Results: ITS Impressions Renal Ultrasound 12/04/24 21:30 Impression: 1: Unremarkable renal ultrasound. No stones, masses or hydronephrosis. Pulmonary Perfusion Imaging 12/05/24 18:55 IMPRESSION: 1: Normal perfusion scan. Probable shallow lung volumes. Recommend correlation with chest x-ray.. Chest/Abdomen/Pelvis CT 12/10/24 10:51 IMPRESSION: 1. Small amount of likely residual free intraperineal gas and fluid post likely revision of an ileocolic anastomosis and placement of a surgical drain. No evident organized abscess or extraluminal contrast to suggest residual anastomotic leak. 2. Wall thickening along the sigmoid colon consistent with colitis infectious or inflammatory in etiology. Differential would also include residual reactive edema related to the prior anastomotic leak and recent surgery. 3. Volume loss in both lungs with atelectasis at the bilateral lung bases including complete collapse of the right middle lobe. Superimposed pneumonia not excludable but suspicion is low. 4. Chronic mild dilation the common bile duct without evident obstructing stone or mass, likely related to prior cholecystectomy but would correlate with liver function tests. CT Brain Angiography 12/13/24 11:34 IMPRESSION: 1. Normal aging brain. No acute intracranial process or abnormally enhancing brain lesions. 2. Unremarkable cerebral CT angiogram with no hemodynamic significant stenosis, thrombosis or aneurysm. Chest X-Ray 12/13/24 12:26 IMPRESSION: 1. Persistent bibasilar atelectasis and/or airspace disease. 2. No significant change from one week prior. Chest CTA 12/13/24 12:45 IMPRESSION: 1. No pulmonary embolus. Sensitivity is moderately decreased by motion artifact. 2. Small lung volumes with relative elevation of right hemidiaphragm. Moderate atelectasis in the inferior lungs 3. Ascites. Abdomen/Pelvis CT 12/26/24 17:56 IMPRESSION: Decrease in intra-abdominal free fluid. All CT scans at this facility are performed using low dose modulation techniques as appropriate to perform exam including the following: automated exposure control; use of iterative reconstruction technique; adjustment of the mA and/or kV according to patient size (this includes techniques or standardized protocols for targeted exams where dose is matched to indication/reason for exam). Labs Labs: Laboratory Results - last 24 hr 12/26/24 12/26/24 12/27/24 16:47 22:25 08:13 WBC RBC Hgb Hct MCV MCH MCHC RDW Plt Count MPV Sodium Potassium Chloride Carbon Dioxide Anion Gap BUN Creatinine Estim Creat Clear Calc Estimated GFR Glucose POC Capillary Glucose 105 157 H 107 H Calcium Phosphorus Magnesium Stl Occult Blood (IFOB) 12/27/24 12/27/24 09:22 11:55 WBC 11.8 H RBC 3.06 L Hgb 8.2 L Hct 26.3 L MCV 85.9 MCH 26.8 MCHC 31.2 L RDW 19.1 H Plt Count 560 H MPV 9.2 Sodium 130 L Potassium 3.1 L Chloride 98 Carbon Dioxide 30 Anion Gap 2 L BUN 5 L Creatinine 0.58 L Estim Creat Clear Calc Not Reportable Estimated GFR > 60 Glucose 87 POC Capillary Glucose 122 H Calcium 8.3 L Phosphorus 3.6 Magnesium 1.7 Stl Occult Blood (IFOB) Positive H Quality VTE Prophylaxis VTE prophylaxis: mechanical ordered
--- NOTE | 2024-12-27 16:31 | WPDGICN ---
Assessment and Plan Assessment and plan (1) History of partial colectomy: Code(s): Z90.49 - Acquired absence of other specified parts of digestive tract Status: Resolved Assessment and Plan: The patient currently shows no clinical evidence of active upper GI bleeding. The heme-positive result is unreliable and unhelpful in this specific context. This bedside test is not validated for testing ostomy output or intestinal secretions, and it frequently produces false positives in patients with a recent surgery, an ostomy, or other non-GI sources of blood. Recommend continuing care as directed by the surgical service. Please contact us if there are signs of GI hemorrhage. GI Consult Note Consult date/time: 12/27/24 16:31 Reason for consult: Hemoccult-positive stools HPI: Rosanna Johns is a 64 year old female who was diagnosed with right-sided colon cancer in November 2024. On 11/25/2024 the patient underwent a right hemicolectomy, lysis of adhesions and an ileocolonic anastomosis. She was discharged on postop day 2. And came back on 12/03/2024 with abdominal pain free fluid in the pelvis and a pelvic abscess. On 12/06/2024 the patient underwent surgery for anastomotic leak and a new ileocolonic resection with [id number] ileocolonic anastomosis was performed. On 12/13/2024 the patient had a 2nd anastomotic leak and underwent an ileocolonic resection with end ileostomy and a mucous fistula creation. Her hospital course has been complicated by C difficile infection which is currently followed by Infectious Diseases. She has been getting progressively better and is currently waiting for a bed in a rehabilitation center. The reason for consultation is because the patient has noticed ?black stools? in her ostomy bag this morning. There is no change in hemoglobin or hemodynamic status. Review of Systems Review of Systems: All systems reviewed & are unremarkable except as noted in HPI and below PMFSH Past Medical History Medical History Iron deficiency anemia Recurrent Clostridioides difficile diarrhea (~06/2024) 04/06, 05/07, 07/05 Cancer of right colon (~10/2024) 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: CT of abdomen - no portal vein thrombosis 04/06: CT of the abdomen shows portal vein thrombosis in the right liver lobe, inferior mesenteric vein and sigmoid branch vein thrombosis Osteopenia Iron deficiency anemia Diverticulitis large intestine (~03/27/24) Melanoma s/p excision Heart murmur Vitamin B12 deficiency Lumbar spondylosis COVID (~08/2021) History of TIA (transient ischemic attack) (~04/2021) Rhabdomyolysis (~04/2021) Anxiety Chronic lumbar pain Hyperlipidemia Hypertension Surgical History Surgical History History of partial colectomy 11/27/24 -hand assisted laparoscopic right colectomy History of appendectomy History of tonsillectomy (~1964) History of melanoma excision Left shoulder History of cervical spinal surgery (~2014) History of back surgery (~2018) Hx of cholecystectomy (Unknown) Family History Family History Mother Family history of elevated blood lipids Family history of emphysema Hypertension Grandparent Acute myocardial infarction Family history of malignant neoplasm of urinary bladder Father Patient's father is Dementia Sibling COPD (chronic obstructive pulmonary disease) Other Anxiety Depression Family history of chronic obstructive pulmonary disease Skin cancer Social History Social History Smoking packs per day: 0.5 Smoking cigarettes per day: 10.0 Years smoked: 2 Smoking pack-years: 1.00 Smoking status: Never smoker Tobacco type: cigarettes Second hand tobacco smoke exposure: No Alcohol intake: never Substance use: never Substance use type: does not use Do You Feel Safe in your Home?: No Lack of Transportation: No Lack of Food: Never True Current Housing: I Have Housing Concerned About Future Housing: No Difficulty Paying Gas/Electric Bills: No Difficulty Paying for Meds: No Currently Unemployed: No Education: High School Diploma/GED Difficulty w/ Childcare or Family Care: No Living arrangements: alone Gender identity (if verbalized by the patient): Female Spiritual care concerns: No Meds Home Medications and Allergies Home Medications ?Medication ?Instructions ?Recorded ?Confirmed ?Type cholecalciferol (vitamin D3) 25 25 mcg PO DAILY 04/06/21 12/03/24 History mcg (1,000 unit) capsule Lactobacills gasseri-Bifidobac 1 cap PO DAILY 04/25/21 12/03/24 History bifidum,longum 1.5 billion cell capsule ([email or web address]) cyanocobalamin (vitamin B-12) 1,000 mcg sublingual .QOD 07/02/24 12/03/24 History 1,000 mcg sublingual tablet losartan 25 mg tablet 25 mg PO DAILY #100 tabs 07/02/24 12/03/24 Rx atorvastatin 20 mg tablet 20 mg PO QHS #90 tabs 07/25/24 12/03/24 Rx lorazepam 1 mg tablet 1 mg PO BID PRN Anxiety #90 tabs 11/12/24 12/03/24 Rx ondansetron 4 mg disintegrating 4 mg PO Q6-8H PRN nausea and 11/26/24 12/03/24 Rx tablet vomiting #14 tabs docusate sodium 100 mg capsule 100 mg PO BID #30 caps 11/29/24 12/03/24 Rx (Colace) hydrocodone 5 mg-acetaminophen 325 1 tablet PO Q6H PRN pain #30 tabs 11/29/24 12/03/24 Rx mg tablet omega-3 fatty acids 500 mg capsule 500 mg PO DAILY 12/03/24 12/03/24 History (MaxEPA) Allergies Allergy/AdvReac Type Severity Reaction Status Date / Time Sulfa (Sulfonamide AdvReac Mild Hives Verified 12/06/24 12:37 Antibiotics) sulfamethizole AdvReac Mild Hives Verified 12/06/24 12:37 sulfamethoxazole AdvReac Mild HIVES Verified 12/06/24 12:37 trimethoprim AdvReac Mild Hives Verified 12/06/24 12:37 Vital Signs Vital Signs - 24 hr 12/26/24 20:00 12/26/24 20:09 12/26/24 22:30 Temperature 97.0 F L Pulse Rate 89 81 Respiratory Rate 18 Blood Pressure 154/85 H Pulse Oximetry 97 99 Oxygen Delivery Room Air 12/27/24 00:00 12/27/24 04:00 12/27/24 06:00 Temperature 97.4 F L Pulse Rate 90 85 90 Respiratory Rate 18 Blood Pressure 142/87 H Pulse Oximetry 97 Oxygen Delivery 12/27/24 08:05 12/27/24 08:45 12/27/24 12:05 Temperature Pulse Rate 93 96 Respiratory Rate Blood Pressure Pulse Oximetry Oxygen Delivery Room Air 12/27/24 14:00 12/27/24 16:05 Temperature 97.9 F Pulse Rate 86 96 Respiratory Rate 18 Blood Pressure 140/76 Pulse Oximetry 98 Oxygen Delivery Exam Narrative: Ileostomy bag shows normal brown, pasty stools. No signs of melena. Const: General: cooperative and healthy appearing Resp: Effort & Inspection: normal respiratory effort and able to speak in complete sentences Auscultation: clear to auscultation bilaterally Cardio: Rate: regular rate Rhythm: regular rhythm GI: Inspection: normal to inspection GI Palp: No No hepatosplenomegaly present Auscultation: normal bowel sounds Rectal Exam: deferred Skin: General skin exam: normal color Psych: Appearance: grossly normal Mental Status: mental status grossly normal Results Labs 12/27/24 09:22 12/27/24 09:22 Labs: Short CBC 12/27/24 Range/Units 09:22 WBC 11.8 H (4.5-10.0) K/mm3 Hgb 8.2 L (12.0-15.0) g/dL Hct 26.3 L (37.0-47.0) % Plt Count 560 H (150-375) k/mm3 [facility] 12/27/24 09:22 Sodium 130 L Potassium 3.1 L Chloride 98 Carbon Dioxide 30 BUN 5 L Creatinine 0.58 L Glucose 87 Calcium 8.3 L
[2024-12-27] MEDS: ACETAMINOPHEN 325 MG TABLET 650 MG PO (21:56)
[2024-12-28] VITALS (13 sets, daily range): BP systolic 144–161; BP diastolic 88–102; PULSE 91–110; RESP 16–20; TEMP 36.3–37.1; O2SAT 94–98
[2024-12-28] MEDS: PIPERACILLIN/TAZOBACTAM SOD 3.375 GM in SODIUM CHLORIDE 0.9% IV 50 ML 100 ML IVPB ×4 (00:24→17:58)
[2024-12-28 05:47] LABS: Hematocrit 26.7 % (37.0-47.0); Hemoglobin 8.4 g/dL (12.0-15.0); Immature Granulocyte Percent A 0.9 % (0-0.5); Lymphocytes Absolute Auto 1.14 K/mm3 (0.9-3.2); Mean Corpuscular HGB Conc 31.5 g/dl (32-36); Mean Corpuscular Hemoglobin 27.0 pg (26-34); Mean Corpuscular Volume 85.9 fl (80-100); Nucleated Red Blood Cells Absolute Auto 0.000 K/mm3 (0.0-0.012); Nucleated Red Blood Cells Perc 0.0 % (0.0-0.2); Platelet Count Result 589 k/mm3 (150-375); Red Blood Count 3.11 M/mm3 (4.2-5.4); White Blood Count 12.2 K/mm3 (4.5-10.0)
[2024-12-28] MEDS: LIDOCAINE 2% VISC SOLN 30 ML, ALUMINUM/MAGNESIUM/SIMETH SUSP 30 ML, diphenhydrAMINE HCl... PO ×5 (06:03→22:08)
[2024-12-28] MEDS: CENTRAL LINE FLUSH 10 ML IV PUSH ×3 (06:03→22:06)
[2024-12-28 06:06] LABS: Alanine Aminotransferase 20 U/L (6-35); Albumin Level 2.3 g/dL (3.5-5.1); Alkaline Phosphatase 226 U/L (38-126); Anion Gap 3 mmol/L (4-12); Aspartate Amino Transferase 48 U/L (14-36); Bilirubin,Total 0.3 mg/dL (0.2-1.3); Blood Urea Nitrogen 6 mg/dL (7-17); Calcium 8.2 mg/dL (8.4-10.2); Carbon Dioxide 30 mmol/L (22-30); Chloride 96 mmol/L (98-107); Estimated Glomerular Filt Rate > 60; Glucose 102 mg/dL (65-110); Magnesium 1.6 mg/dL (1.6-2.3); Potassium 3.5 mmol/L (3.4-5.0); Sodium 129 mmol/L (137-145); Total Protein 5.6 g/dL (6.3-8.2)
[2024-12-28 06:59] LABS: INR 1.1; Prothrombin Time 14.3 Seconds (11.1-14.7)
[2024-12-28 07:00] LABS: Partial Thromboplastin Time 42.1 Seconds (22.3-36.8)
[2024-12-28] MEDS: HYDROcodone/acetaminophen (*CRX) 5-325 MG TABLET 1 TAB PO (09:45)
[2024-12-28] MEDS: PANTOPRAZOLE SODIUM IV 40 MG VIAL IV PUSH ×2 (09:48→22:06)
[2024-12-28] MEDS: FLUCONAZOLE 400 MG/NACL 200 ML 400 MG/200 ML BAG 100 MG IVPB (09:48)
[2024-12-28] MEDS: LORazepam (*CRX) 1 MG TABLET PO (10:12)
--- NOTE | 2024-12-28 10:45 | PM.PNGS ---
Progress Note: A&P Assessment and Plan (1) Ileocolic anastomotic leak: Code(s): K91.89 - Other postprocedural complications and disorders of digestive system Status: Acute Assessment and Plan: stable, continue routine postoperative care, continue to encourage p.o., out of bed/IS (2) Upper GI bleed: Code(s): K92.2 - Gastrointestinal hemorrhage, unspecified Status: Acute Assessment and Plan: H&H stable, appreciate GI input, likely stress gastritis, continue PPI for now Subjective Subjective Date/Time Seen: 12/28/24 10:45 Interval history: still with dark stool from the ostomy, also had nose bleed this morning Review of Systems Review of Systems: All systems reviewed & are unremarkable except as noted in HPI and below Exam Const: General: cooperative, comfortable, no acute distress and ill appearing Resp: Auscultation: clear to auscultation bilaterally Cardio: Rate: regular rate Rhythm: regular rhythm GI: Inspection: normal to inspection, non-distended and incision GI Palp: Yes abdominal tenderness Other: ostomy with good function Objective Data Vital Signs Vital Signs: Vital Signs - 24 hr 12/27/24 12:05 12/27/24 14:00 12/27/24 16:05 Temperature 36.6 C Pulse Rate 96 86 96 Respiratory Rate 18 Blood Pressure 140/76 Pulse Oximetry 98 Oxygen Delivery Fraction of Inspired Oxygen 12/27/24 20:00 12/27/24 20:00 12/27/24 20:05 Temperature Pulse Rate 99 101 H Respiratory Rate Blood Pressure Pulse Oximetry 95 Oxygen Delivery Room Air Room Air Fraction of Inspired Oxygen 21 12/27/24 21:48 12/28/24 00:00 12/28/24 04:00 Temperature 36.6 C Pulse Rate 101 H 91 91 Respiratory Rate 16 Blood Pressure 155/87 H Pulse Oximetry 97 Oxygen Delivery Fraction of Inspired Oxygen 12/28/24 04:49 12/28/24 07:01 Temperature 36.4 C L 36.4 C L Pulse Rate 92 105 H Respiratory Rate 16 18 Blood Pressure 148/88 H 161/102 H Pulse Oximetry 94 95 Oxygen Delivery Fraction of Inspired Oxygen Intake/Output Intake/Output: Intake & Output 12/25/24 12/26/24 12/27/24 12/28/24 23:59 23:59 23:59 23:59 Intake Total 3600 3697 4424 1220 Output Total 5340 0648 1435 1750 Balance 1515 1547 1349 -530 Meds/Results Medications: Active Medications Generic Name Dose Route Start Last Admin Trade Name Freq PRN Reason Stop Dose Admin Acetaminophen 650 mg 12/18/24 15:40 12/27/24 21:56 Acetaminophen 325 Mg Tablet PO 650 mg Q4H PRN Administration Mild Pain (1-3) or Fever Hydrocodone Bitart/Acetaminophen 1 tab 12/27/24 18:51 12/27/24 19:06 Hydrocodone/Acetaminophen (*Crx) 10-325 Mg Tablet PO 1 tab Q6H PRN Administration Pain Rated 7-10 Hydrocodone Bitart/Acetaminophen 1 tab 12/27/24 18:51 12/28/24 09:45 Hydrocodone/Acetaminophen (*Crx) 5-325 Mg Tablet PO 1 tab Q4H PRN Administration Pain Rated 4-6 Alteplase, Recombinant 2 mg 12/27/24 10:16 12/27/24 11:57 Alteplase 2 Mg Vial (Cathflo) IV PUSH 2 mg ONCE PRN Administration Line Occlusion Lidocaine HCl 30 ml/ Al Hydrox 0 ml 12/25/24 13:00 12/28/24 09:47 /Mg Hydrox/Simethicone 30 ml/ PO 5 ml Diphenhydramine HCl 75 mg Q4HWA CEE Administration Dextrose 12.5 gm 12/14/24 10:29 Dextrose 50% 25 Gm/50 Ml Syringe IV PUSH PRN PRN Hypoglycemia Protocol Enoxaparin Sodium 40 mg 12/07/24 09:00 12/27/24 11:53 Enoxaparin 40 Mg/0.4 Ml Syringe SUB-Q Not Given On Hold: 12/28/24 05:46 DAILY CEE Glucose 15 gm 12/14/24 10:29 Glucose Oral Gel 15 Gm Of Glucse In 37.5 Gm Tube PO PRN PRN Hypoglycemia Protocol Dextrose 1,000 mls @ 100 mls/hr 12/14/24 10:29 Dextrose 5% 1,000 Ml IVPB PRN PRN Hypoglycemia Protocol Piperacillin Sod/Tazobactam 50 mls @ 100 mls/hr 12/17/24 14:30 12/28/24 06:01 Sod 3.375 gm/ Sodium Chloride IVPB 01/01/25 23:59 100 mls/hr Q6HR CEE Administration Fluconazole 400 mg in 200 mls @ 100 mls/hr 12/19/24 13:30 12/28/24 09:48 Diflucan 400 Mg/Nacl 200 Ml IVPB 01/01/25 10:59 100 mls/hr DAILY CEE Administration Insulin Aspart 3 - 6 units 12/22/24 08:00 12/28/24 08:47 Insulin Aspart (*Bkc) 100 Units/Ml SUB-Q Not Given [facility] Protocol Lorazepam 1 mg 12/22/24 14:58 12/28/24 10:12 Lorazepam (*Crx) 1 Mg Tablet PO 1 mg BID PRN Administration Anxiety Naloxone HCl 0.1 mg 12/06/24 17:15 Naloxone Hcl 0.4 Mg/Ml Vial IV PUSH Q2M PRN Opiate Reversal Ondansetron HCl 4 mg 12/03/24 17:26 12/09/24 05:23 Ondansetron Inj 4 Mg/2 Ml Vial IV PUSH 4 mg Q4H PRN Administration Nausea And Vomiting Pantoprazole Sodium 40 mg 12/27/24 21:00 12/28/24 09:48 Pantoprazole Sodium Iv 40 Mg Vial IV PUSH 40 mg Q12HR CEE Administration Phenol 1 spray 12/07/24 10:05 Phenol/Sod Pheno [place] (*Bkc) MUCOUS MEM Q2H PRN Sore Throat Sodium Chloride 10 ml 12/07/24 14:00 12/28/24 06:03 Central Line Flush IV PUSH 10 ml Q8HR CEE Administration Sodium Chloride 20 ml 12/07/24 09:45 12/21/24 05:30 Central Line Flush IV PUSH 20 ml PRN PRN Administration after blood draws Radiology Results: ITS Impressions Renal Ultrasound 12/04/24 21:30 Impression: 1: Unremarkable renal ultrasound. No stones, masses or hydronephrosis. Pulmonary Perfusion Imaging 12/05/24 18:55 IMPRESSION: 1: Normal perfusion scan. Probable shallow lung volumes. Recommend correlation with chest x-ray.. Chest/Abdomen/Pelvis CT 12/10/24 10:51 IMPRESSION: 1. Small amount of likely residual free intraperineal gas and fluid post likely revision of an ileocolic anastomosis and placement of a surgical drain. No evident organized abscess or extraluminal contrast to suggest residual anastomotic leak. 2. Wall thickening along the sigmoid colon consistent with colitis infectious or inflammatory in etiology. Differential would also include residual reactive edema related to the prior anastomotic leak and recent surgery. 3. Volume loss in both lungs with atelectasis at the bilateral lung bases including complete collapse of the right middle lobe. Superimposed pneumonia not excludable but suspicion is low. 4. Chronic mild dilation the common bile duct without evident obstructing stone or mass, likely related to prior cholecystectomy but would correlate with liver function tests. CT Brain Angiography 12/13/24 11:34 IMPRESSION: 1. Normal aging brain. No acute intracranial process or abnormally enhancing brain lesions. 2. Unremarkable cerebral CT angiogram with no hemodynamic significant stenosis, thrombosis or aneurysm. Chest CTA 12/13/24 12:45 IMPRESSION: 1. No pulmonary embolus. Sensitivity is moderately decreased by motion artifact. 2. Small lung volumes with relative elevation of right hemidiaphragm. Moderate atelectasis in the inferior lungs 3. Ascites. Abdomen/Pelvis CT 12/26/24 17:56 IMPRESSION: Decrease in intra-abdominal free fluid. All CT scans at this facility are performed using low dose modulation techniques as appropriate to perform exam including the following: automated exposure control; use of iterative reconstruction technique; adjustment of the mA and/or kV according to patient size (this includes techniques or standardized protocols for targeted exams where dose is matched to indication/reason for exam). Chest X-Ray 12/28/24 07:01 IMPRESSION: 1. No change. 2. Bibasilar atelectasis. Labs Labs: Laboratory Results - last 24 hr 12/27/24 12/27/24 12/27/24 11:55 16:43 21:59 WBC RBC Hgb Hct MCV MCH MCHC RDW Plt Count MPV Immature Gran % (Auto) Neut % (Auto) Lymph % (Auto) [place] % (Auto) Eos % (Auto) Baso % (Auto) Lymph # (Auto) [place] # (Auto) Eos # (Auto) Baso # (Auto) Abs Immat Gran (auto) Absolute Neuts (auto) Absolute Nucleated RBC Nucleated RBC % PT INR APTT Sodium Potassium Chloride Carbon Dioxide Anion Gap BUN Creatinine Estim Creat Clear Calc Estimated GFR Glucose POC Capillary Glucose 122 H 138 H 130 H Calcium Magnesium Total Bilirubin AST ALT Alkaline Phosphatase Total Protein Albumin 12/28/24 12/28/24 12/28/24 05:37 05:42 08:05 WBC 12.2 H RBC 3.11 L Hgb 8.4 L Hct 26.7 L MCV 85.9 MCH 27.0 MCHC 31.5 L RDW 18.9 H Plt Count 589 H MPV 8.8 Immature Gran % (Auto) 0.9 H Neut % (Auto) 82.6 H Lymph % (Auto) 9.3 L [place] % (Auto) 4.7 Eos % (Auto) 1.8 Baso % (Auto) 0.7 Lymph # (Auto) 1.14 [place] # (Auto) 0.6 Eos # (Auto) 0.2 Baso # (Auto) 0.1 Abs Immat Gran (auto) 0.11 H Absolute Neuts (auto) 10.1 H Absolute Nucleated RBC 0.000 Nucleated RBC % 0.0 PT 14.3 INR 1.1 APTT 42.1 H Sodium 129 L Potassium 3.5 Chloride 96 L Carbon Dioxide 30 Anion Gap 3 L BUN 6 L Creatinine 0.54 L Estim Creat Clear Calc Not Reportable Estimated GFR > 60 Glucose 102 POC Capillary Glucose 116 H Calcium 8.2 L Magnesium 1.6 Total Bilirubin 0.3 AST 48 H ALT 20 Alkaline Phosphatase 226 H Total Protein 5.6 L Albumin 2.3 L
--- NOTE | 2024-12-28 13:53 | PM.IMPN ---
Progress Note: A&P Assessment and Plan (1) History of partial colectomy: Code(s): Z90.49 - Acquired absence of other specified parts of digestive tract Status: Resolved (2) Ileocolic anastomotic leak: Code(s): K91.89 - Other postprocedural complications and disorders of digestive system Status: Acute (3) Acute blood loss anemia: Code(s): D62 - Acute posthemorrhagic anemia Status: Acute (4) Acute hypoxemic respiratory failure: Code(s): J96.01 - Acute respiratory failure with hypoxia Status: Acute Plan 64 y/o F with PMH of cancer the right colon S/P right colectomy, thrombosis of the mesenteric vein, WILL, diverticulitis, rhabdomyolysis (2021), hyperlipidemia and hypertension presented here on 12/03 with difficulty urinating. Previously underwent a hand assisted laparoscopic right colectomy with extensive adhesiolysis, mobilization of hepatic flexure by Dr. May on 11/27/24. Discharge on postop day 2 as she was doing well. At home she has had worsening abdominal pain, constipation. On readmission she has had a lengthy hospital course, on 12/06 undergoing a exploratory laparotomy with ileocolic resection with [id number] ileo colic anastomosis drainage of intra-abdominal abscess with placement of wound VAC. Due to bile in JUHI drains she had a repeat abdomen pelvis CT with water-soluble oral contrast demonstrating right hemicolectomy with anastomotic leak. On 12/13/2024 she underwent re-exploration with ileocolic resection with end ileostomy and mucous fistula creation and placement of wound VAC within subcutaneous space measuring 12 cm x 3 cm. General surgery managing wounds, wound VAC, JUHI drain. Currently on TPN. Wound care per surgery and unit protocol and wound care. Next wound VAC Saturday 12/23. Malnutrition: Related to surgery, continue TPN. NG tube in place which is clamped. Started on clear liquid per General surgery. This has been advanced to full liquid now. NG has been removed 12/17/2024 Sepsis: Monitor leukocytosis, tachypnea, tachycardia. Overall trend of leukocytosis has peaked at 19.9 on 12/08/2024, currently improving to 12. Continue to monitor along with procalcitonin. Infectious Disease consulted, continue zosyn, fluconazole, vancomycin p.o. 12/04/2024 blood culture x2 negative, final. vancomycin oral needs to transition to administration through mucous fistula- difficulty administering, surgery to be notified C diff colitis: Appreciate ID recommendations, p.o. vancomycin total 3 weeks via ostomy has been unable to be administered since 12/22 due to difficulty with stoma. Patient failed stoma Vancomycin administration and failed Vanc enema PO Vanc discontinued per ID, ID and Gen surgery on board Stool is forming now Patient comfortable at bedside Post hemorrhagic anemia: Monitor daily hemoglobin, stable. Restart Lovenox 40 mg subQ q.day for DVT prophylaxis when okay by surgery. Hypocalcemia: After correction for hypoalbuminemia, 8.1. Continue to monitor. Elevated blood glucose readings: HbA1c 6.0%. Accu-Cheks q.6 hours with hypoglycemia protocol and low-dose insulin sliding scale. Acute hypoxic respiratory failure: Patient weaned to room air on 12/15/2024. Due to atelectasis, CTA chest did not demonstrate pneumonia/PE. Continue incentive spirometer and EzPAP q.i.d.. Mobilize as soon as possible. Acute kidney injury and urinary retention: Could be due to hypovolemia, anemia, urinary retention, sepsis, contrast exposure. DARRYL has resolved. Nephrology signed off. [place]on catheter remains due to surgery and immobility. Hypertension: Resume Losartan and adjust with clinical course Anemia hemoglobin down to 6.6 12/18/2024 1 unit PRBC. Now stable at 8.8. Intraabdominal abscess Continue Zosyn, Fluconazole and Vanc until 01/01 per ID Melena stool noted this morning and FOBT positive Hb stable, 8.4 GI evaluated and not concerned about GI bleed Epistaxis INR 1.1, PTT 42.1 restarted BP meds and monitor DVT prophylaxis: SCDs. Lovenox 40 mg daily currently on hold due to anemia Nutrition: regular Prophylaxis: Protonix 40 mg IV q.a.m. for ulcer prophylaxis. PT/OT following Right upper extremity PICC line Deconditioning, PT/OT as appropriate per General surgery team. EzPAP, incentive spirometer. Patient wishes to be full code. Prior to admission she lives at home and was independent. Monitor on more day Subjective Date/time seen: 12/28/24 13:53 Interval history: Comfortable at bedside Discussed with GI, Dr Rehan gilmore who stated that he is not concerned about GI bleed Review of Systems Review of Systems: All systems reviewed & are unremarkable except as noted in HPI and below (Subjective) Exam Narrative: GENERAL: Alert and oriented x3, not in acute distress HEAD: Normal with no signs of head trauma. EYES: EOMI, conjunctiva normal ENT: Hearing grossly intact LUNGS: Nonlabored breathing. No adventitious sounds HEART: [Regular rate and rhythm], no murmurs ABD: [Soft], mildly distended, mild tenderness, surgical incision with wound VAC, clean dry and intact. Colostomy and RLQ stoma noted. EXT: Normal range of motion SKIN: [No rashes or lesions.] NEURO: [Alert and oriented x 3. No gross focal sensory or strength deficits.] PSYCH: Normal affect Const: General: comfortable and no acute distress Other: A&O x3 HENMT: Face/Nose/Sinus: Normal nares present Mouth: Yes moist mucous membranes and Yes dry mucous membranes Eyes: General: appearance normal, both eyes and all related structures Sclera: sclerae normal Pupils: Equal, round and reactive pupils present EOM: EOMs intact bilaterally Neck: Neck: supple Resp: Effort & Inspection: normal respiratory effort Auscultation: clear to auscultation bilaterally and crackles Other: Slowly decreased breath sounds at bilateral bases, no crackles/wheezing/rhonchi Cardio: Rate: regular rate and tachycardic Rhythm: regular rhythm Heart sounds: no gallops and no murmurs Other: S1-S2 present without murmur, rub, ectopy GI: Inspection: non-distended Other: Right-sided mucous fistula with serosanguineous drainage, end ileostomy with light brown serous drainage, JUHI drain with serosanguineous drainage, wound VAC intact. Urinary Catheter: Urinary Catheter: patent and draining Skin: General skin exam: normal color and no rashes or lesions noted Other: Postsurgical incision to abdomen is well approximated, sutures in place, no signs of infection Neuro: Cranial nerves: Yes Equal, round and reactive pupils present Speech: normal speech Motor exam (neuro): 5/5 motor strength present throughout Sensory Exam: normal sensation Other: Generalized weakness Extrem: General: normal to inspection and edema Other: Trace edema bilateral lower extremities Psych: Mental Status: mental status grossly normal Affect: normal affect Other: Good insight and judgment, pleasant Objective Data Vital Signs Vital Signs: Vital Signs - 24 hr 12/27/24 14:00 12/27/24 16:05 12/27/24 20:00 Temperature 97.9 F Pulse Rate 86 96 Respiratory Rate 18 Blood Pressure 140/76 Pulse Oximetry 98 Oxygen Delivery Room Air Fraction of Inspired Oxygen 12/27/24 20:00 12/27/24 20:05 12/27/24 21:48 Temperature 97.8 F Pulse Rate 99 101 H 101 H Respiratory Rate 16 Blood Pressure 155/87 H Pulse Oximetry 95 97 Oxygen Delivery Room Air Fraction of Inspired Oxygen 21 12/28/24 00:00 12/28/24 04:00 12/28/24 04:49 Temperature 97.5 F L Pulse Rate 91 91 92 Respiratory Rate 16 Blood Pressure 148/88 H Pulse Oximetry 94 Oxygen Delivery Fraction of Inspired Oxygen 12/28/24 07:01 12/28/24 09:45 Temperature 97.5 F L 98.1 F Pulse Rate 105 H 110 H Respiratory Rate 18 20 Blood Pressure 161/102 H 149/92 H Pulse Oximetry 95 95 Oxygen Delivery Fraction of Inspired Oxygen Intake/Output Intake/Output: Intake & Output 12/25/24 12/26/24 12/27/24 12/28/24 23:59 23:59 23:59 23:59 Intake Total 3600 3697 4424 1510 Output Total 2085 2150 3075 1750 Balance 1515 1547 1349 -240 Meds/Results Medications: Active Medications Generic Name Dose Route Start Last Admin Trade Name Freq PRN Reason Stop Dose Admin Acetaminophen 650 mg 12/18/24 15:40 12/27/24 21:56 Acetaminophen 325 Mg Tablet PO 650 mg Q4H PRN Administration Mild Pain (1-3) or Fever Hydrocodone Bitart/Acetaminophen 1 tab 12/27/24 18:51 12/27/24 19:06 Hydrocodone/Acetaminophen (*Crx) 10-325 Mg Tablet PO 1 tab Q6H PRN Administration Pain Rated 7-10 Hydrocodone Bitart/Acetaminophen 1 tab 12/27/24 18:51 12/28/24 09:45 Hydrocodone/Acetaminophen (*Crx) 5-325 Mg Tablet PO 1 tab Q4H PRN Administration Pain Rated 4-6 Alteplase, Recombinant 2 mg 12/27/24 10:16 12/27/24 11:57 Alteplase 2 Mg Vial (Cathflo) IV PUSH 2 mg ONCE PRN Administration Line Occlusion Lidocaine HCl 30 ml/ Al Hydrox 0 ml 12/25/24 13:00 12/28/24 12:37 /Mg Hydrox/Simethicone 30 ml/ PO 5 ml Diphenhydramine HCl 75 mg Q4HWA CEE Administration Dextrose 12.5 gm 12/14/24 10:29 Dextrose 50% 25 Gm/50 Ml Syringe IV PUSH PRN PRN Hypoglycemia Protocol Enoxaparin Sodium 40 mg 12/07/24 09:00 12/27/24 11:53 Enoxaparin 40 Mg/0.4 Ml Syringe SUB-Q Not Given On Hold: 12/28/24 05:46 DAILY CEE Glucose 15 gm 12/14/24 10:29 Glucose Oral Gel 15 Gm Of Glucse In 37.5 Gm Tube PO PRN PRN Hypoglycemia Protocol Dextrose 1,000 mls @ 100 mls/hr 12/14/24 10:29 Dextrose 5% 1,000 Ml IVPB PRN PRN Hypoglycemia Protocol Piperacillin Sod/Tazobactam 50 mls @ 100 mls/hr 12/17/24 14:30 12/28/24 12:38 Sod 3.375 gm/ Sodium Chloride IVPB 01/01/25 23:59 100 mls/hr Q6HR CEE Administration Fluconazole 400 mg in 200 mls @ 100 mls/hr 12/19/24 13:30 12/28/24 09:48 Diflucan 400 Mg/Nacl 200 Ml IVPB 01/01/25 10:59 100 mls/hr DAILY CEE Administration Insulin Aspart 3 - 6 units 12/22/24 08:00 12/28/24 12:31 Insulin Aspart (*Bkc) 100 Units/Ml SUB-Q Not Given TIDWM CEE Protocol Lorazepam 1 mg 12/22/24 14:58 12/28/24 10:12 Lorazepam (*Crx) 1 Mg Tablet PO 1 mg BID PRN Administration Anxiety Naloxone HCl 0.1 mg 12/06/24 17:15 Naloxone Hcl 0.4 Mg/Ml Vial IV PUSH Q2M PRN Opiate Reversal Ondansetron HCl 4 mg 12/03/24 17:26 12/09/24 05:23 Ondansetron Inj 4 Mg/2 Ml Vial IV PUSH 4 mg Q4H PRN Administration Nausea And Vomiting Pantoprazole Sodium 40 mg 12/27/24 21:00 12/28/24 09:48 Pantoprazole Sodium Iv 40 Mg Vial IV PUSH 40 mg Q12HR CEE Administration Phenol 1 spray 12/07/24 10:05 Phenol/Sod Pheno [place] Sal[place] (*Bkc) MUCOUS MEM Q2H PRN Sore Throat Sodium Chloride 10 ml 12/07/24 14:00 12/28/24 12:38 Central Line Flush IV PUSH 10 ml Q8HR CEE Administration Sodium Chloride 20 ml 12/07/24 09:45 12/21/24 05:30 Central Line Flush IV PUSH 20 ml PRN PRN Administration after blood draws Radiology Results: ITS Impressions Renal Ultrasound 12/04/24 21:30 Impression: 1: Unremarkable renal ultrasound. No stones, masses or hydronephrosis. Pulmonary Perfusion Imaging 12/05/24 18:55 IMPRESSION: 1: Normal perfusion scan. Probable shallow lung volumes. Recommend correlation with chest x-ray.. Chest/Abdomen/Pelvis CT 12/10/24 10:51 IMPRESSION: 1. Small amount of likely residual free intraperineal gas and fluid post likely revision of an ileocolic anastomosis and placement of a surgical drain. No evident organized abscess or extraluminal contrast to suggest residual anastomotic leak. 2. Wall thickening along the sigmoid colon consistent with colitis infectious or inflammatory in etiology. Differential would also include residual reactive edema related to the prior anastomotic leak and recent surgery. 3. Volume loss in both lungs with atelectasis at the bilateral lung bases including complete collapse of the right middle lobe. Superimposed pneumonia not excludable but suspicion is low. 4. Chronic mild dilation the common bile duct without evident obstructing stone or mass, likely related to prior cholecystectomy but would correlate with liver function tests. CT Brain Angiography 12/13/24 11:34 IMPRESSION: 1. Normal aging brain. No acute intracranial process or abnormally enhancing brain lesions. 2. Unremarkable cerebral CT angiogram with no hemodynamic significant stenosis, thrombosis or aneurysm. Chest CTA 12/13/24 12:45 IMPRESSION: 1. No pulmonary embolus. Sensitivity is moderately decreased by motion artifact. 2. Small lung volumes with relative elevation of right hemidiaphragm. Moderate atelectasis in the inferior lungs 3. Ascites. Abdomen/Pelvis CT 12/26/24 17:56 IMPRESSION: Decrease in intra-abdominal free fluid. All CT scans at this facility are performed using low dose modulation techniques as appropriate to perform exam including the following: automated exposure control; use of iterative reconstruction technique; adjustment of the mA and/or kV according to patient size (this includes techniques or standardized protocols for targeted exams where dose is matched to indication/reason for exam). Chest X-Ray 12/28/24 07:01 IMPRESSION: 1. No change. 2. Bibasilar atelectasis. Labs Labs: Laboratory Results - last 24 hr 12/27/24 12/27/24 12/28/24 16:43 21:59 05:37 WBC 12.2 H RBC 3.11 L Hgb 8.4 L Hct 26.7 L MCV 85.9 MCH 27.0 MCHC 31.5 L RDW 18.9 H Plt Count 589 H MPV 8.8 Immature Gran % (Auto) 0.9 H Neut % (Auto) 82.6 H Lymph % (Auto) 9.3 L [place] % (Auto) 4.7 Eos % (Auto) 1.8 Baso % (Auto) 0.7 Lymph # (Auto) 1.14 [place] # (Auto) 0.6 Eos # (Auto) 0.2 Baso # (Auto) 0.1 Abs Immat Gran (auto) 0.11 H Absolute Neuts (auto) 10.1 H Absolute Nucleated RBC 0.000 Nucleated RBC % 0.0 PT INR APTT Sodium 129 L Potassium 3.5 Chloride 96 L Carbon Dioxide 30 Anion Gap 3 L BUN 6 L Creatinine 0.54 L Estim Creat Clear Calc Not Reportable Estimated GFR > 60 Glucose 102 POC Capillary Glucose 138 H 130 H Calcium 8.2 L Magnesium 1.6 Total Bilirubin 0.3 AST 48 H ALT 20 Alkaline Phosphatase 226 H Total Protein 5.6 L Albumin 2.3 L 12/28/24 12/28/24 12/28/24 05:42 08:05 12:11 WBC RBC Hgb Hct MCV MCH MCHC RDW Plt Count MPV Immature Gran % (Auto) Neut % (Auto) Lymph % (Auto) [place] % (Auto) Eos % (Auto) Baso % (Auto) Lymph # (Auto) [place] # (Auto) Eos # (Auto) Baso # (Auto) Abs Immat Gran (auto) Absolute Neuts (auto) Absolute Nucleated RBC Nucleated RBC % PT 14.3 INR 1.1 APTT 42.1 H Sodium Potassium Chloride Carbon Dioxide Anion Gap BUN Creatinine Estim Creat Clear Calc Estimated GFR Glucose POC Capillary Glucose 116 H 122 H Calcium Magnesium Total Bilirubin AST ALT Alkaline Phosphatase Total Protein Albumin Quality VTE Prophylaxis VTE prophylaxis: mechanical ordered
[2024-12-28] MEDS: LOSARTAN POTASSIUM 25 MG TABLET PO (14:46)
[2024-12-28] MEDS: HYDROcodone/acetaminophen (*CRX) 10-325 MG TABLET 1 TAB PO (18:01)
[2024-12-29] VITALS (18 sets, daily range): BP systolic 127–151; BP diastolic 73–95; PULSE 95–118; RESP 16–20; TEMP 36.1–37; O2SAT 93–100
[2024-12-29] MEDS: PIPERACILLIN/TAZOBACTAM SOD 3.375 GM in SODIUM CHLORIDE 0.9% IV 50 ML 100 ML IVPB ×4 (00:48→17:00)
[2024-12-29 01:48] LABS: Hematocrit 23.6 % (37.0-47.0); Hemoglobin 7.3 g/dL (12.0-15.0)
[2024-12-29 04:43] LABS: Hematocrit 21.7 % (37.0-47.0); Mean Corpuscular HGB Conc 30.9 g/dl (32-36); Mean Corpuscular Hemoglobin 27.0 pg (26-34); Mean Corpuscular Volume 87.5 fl (80-100); Platelet Count Result 567 k/mm3 (150-375); Red Blood Count 2.48 M/mm3 (4.2-5.4); White Blood Count 16.9 K/mm3 (4.5-10.0)
[2024-12-29 05:05] LABS: Hemoglobin 6.7 g/dL (12.0-15.0)
[2024-12-29 05:09] LABS: Alanine Aminotransferase 19 U/L (6-35); Albumin Level 2.1 g/dL (3.5-5.1); Alkaline Phosphatase 228 U/L (38-126); Anion Gap 1 mmol/L (4-12); Aspartate Amino Transferase 31 U/L (14-36); Bilirubin,Total 0.2 mg/dL (0.2-1.3); Blood Urea Nitrogen 13 mg/dL (7-17); Calcium 8.1 mg/dL (8.4-10.2); Carbon Dioxide 33 mmol/L (22-30); Chloride 99 mmol/L (98-107); Estimated Glomerular Filt Rate > 60; Glucose 145 mg/dL (65-110); Magnesium 1.7 mg/dL (1.6-2.3); Potassium 3.3 mmol/L (3.4-5.0); Sodium 133 mmol/L (137-145); Total Protein 5.2 g/dL (6.3-8.2)
[2024-12-29] MEDS: CENTRAL LINE FLUSH 10 ML IV PUSH ×3 (05:22→20:29)
[2024-12-29] MEDS: LIDOCAINE 2% VISC SOLN 30 ML, ALUMINUM/MAGNESIUM/SIMETH SUSP 30 ML, diphenhydrAMINE HCl... PO ×5 (05:22→20:30)
--- NOTE | 2024-12-29 05:53 | P.PNCROSS_ITS ---
Event Note Event Note Event Note: Overnight patient developed hemoptysis. Nurse reports to me on 12/28/2024 in t he morning the patient had similar episode, felt as if she was having a nose bleed as well. Patient reports it feels like when she has a cold there is drainage coming from her nose to the back of her throat. Upon examination the patient is actively coughing with nathalia blood. Unable to visualize both nares adequately due to patient's coughing in discomfort, patient requested to defer further inv estigation, there is noted streaking of blood in the left nare anteriorly. The patient's coughing resolved spontaneously. She was resting comfortably thereafter. Hemoglobin has decreased to 6.7. Transfuse 1 unit PRBC. NPO, aspiration precaution. Continue to hold any antiplatelet and anticoagulant. Consult ENT.
[2024-12-29] MEDS: SODIUM CHLORIDE 0.9% IV 250 ML 30 ML IV CONT (06:25)
[2024-12-29] MEDS: KCL 20 MEQ/SW 100 ML 100 ML 50 MEQ IVPB (07:18)
[2024-12-29] MEDS: LORazepam (*CRX) 1 MG TABLET PO ×2 (09:15→20:29)
[2024-12-29] MEDS: HYDROcodone/acetaminophen (*CRX) 5-325 MG TABLET 1 TAB PO (09:15)
[2024-12-29] MEDS: LOSARTAN POTASSIUM 25 MG TABLET PO (09:16)
[2024-12-29] MEDS: PANTOPRAZOLE SODIUM IV 40 MG VIAL IV PUSH ×2 (09:16→20:29)
[2024-12-29] MEDS: FLUCONAZOLE 400 MG/NACL 200 ML 400 MG/200 ML BAG 100 MG IVPB (09:16)
--- NOTE | 2024-12-29 09:51 | P.PNGS_ITS ---
Progress Note: A&P Assessment and Plan (1) Ileocolic anastomotic leak: Code(s): K91.89 - Other postprocedural complications and disorders of digestive system Status: Acute Assessment and Plan: ostomy working and abdominal exam benign, will ask Wound Care to replace the VAC dressing tomorrow (2) Upper GI bleed: Code(s): K92.2 - Gastrointestinal hemorrhage, unspecified Status: Acute Assessment and Plan: significant nose bleed overnight, questionable gastritis, being transfused 1 unit packed red blood cells this morning, continue to follow and hold all anticoagulation for now Subjective Subjective Date/Time Seen: 12/29/24 09:51 Interval history: had significant nose bleed overnight, no abdominal pain, ostomy working Review of Systems Review of Systems: All systems reviewed & are unremarkable except as noted in HPI and below Exam Const: General: cooperative, comfortable, no acute distress and ill appearing Resp: Auscultation: clear to auscultation bilaterally Cardio: Rate: regular rate Rhythm: regular rhythm GI: Inspection: normal to inspection, non-distended and incision GI Palp: No abdominal tenderness, Yes Soft to palpation and No Tenderness to palpation present (GI) Other: vac not holding suction, removed and wound with good granulation tissue, replac ed with wet to dry dressing Objective Data Vital Signs Vital Signs: Vital Signs - 24 hr 12/28/24 12:00 12/28/24 15:31 12/28/24 16:00 Temperature 36.3 C L Pulse Rate 91 104 H 97 Respiratory Rate 20 Blood Pressure 147/90 H Pulse Oximetry 98 Oxygen Delivery Oxygen Flow Rate Fraction of Inspired Oxygen 12/28/24 20:00 12/28/24 20:00 12/28/24 20:36 Temperature Pulse Rate 103 H Respiratory Rate Blood Pressure Pulse Oximetry 97 Oxygen Delivery Room Air Room Air Oxygen Flow Rate Fraction of Inspired Oxygen 21 12/28/24 22:00 12/29/24 00:00 12/29/24 01:00 Temperature 37.1 C 37.0 C Pulse Rate 109 H 95 118 H Respiratory Rate 18 16 Blood Pressure 144/90 H 151/95 H Pulse Oximetry 96 93 Oxygen Delivery Oxygen Flow Rate Fraction of Inspired Oxygen 12/29/24 02:44 12/29/24 04:00 12/29/24 06:00 Temperature 37.0 C 36.5 C Pulse Rate 118 H 114 H 110 H Respiratory Rate 16 18 Blood Pressure 151/95 H 131/85 Pulse Oximetry 93 99 Oxygen Delivery Room Air Oxygen Flow Rate Fraction of Inspired Oxygen 12/29/24 06:21 12/29/24 06:40 12/29/24 07:40 Temperature 36.5 C 37.0 C 36.8 C Pulse Rate 110 H 106 H 109 H Respiratory Rate 18 20 18 Blood Pressure 131/85 127/73 143/82 H Pulse Oximetry 99 100 99 Oxygen Delivery Oxygen Flow Rate Fraction of Inspired Oxygen 12/29/24 08:05 12/29/24 08:40 12/29/24 08:55 Temperature 36.9 C 36.9 C Pulse Rate 115 H 115 H Respiratory Rate 20 20 Blood Pressure 140/90 140/90 Pulse Oximetry 99 98 98 Oxygen Delivery Nasal Cannula Oxygen Flow Rate 1 Fraction of Inspired Oxygen Intake/Output Intake/Output: Intake & Output 12/26/24 12/27/24 12/28/24 12/29/24 23:59 23:59 23:59 23:59 Intake Total 3697 4424 2910 400 Output Total 2150 3075 1950 265 Balance 1547 1349 960 135 Meds/Results Medications: Active Medications Generic Name Dose Route Start Last Admin Trade Name Freq PRN Reason Stop Dose Admin Acetaminophen 650 mg 12/18/24 15:40 12/27/24 21:56 Acetaminophen 325 Mg Tablet PO 650 mg Q4H PRN Administration Mild Pain (1-3) or Fever Hydrocodone Bitart/Acetaminophen 1 tab 12/27/24 18:51 12/28/24 18:01 Hydrocodone/Acetaminophen (*Crx) 10-325 Mg Tablet PO 1 tab Q6H PRN Administration Pain Rated 7-10 Hydrocodone Bitart/Acetaminophen 1 tab 12/27/24 18:51 12/29/24 09:15 Hydrocodone/Acetaminophen (*Crx) 5-325 Mg Tablet PO 1 tab Q4H PRN Administration Pain Rated 4-6 Alteplase, Recombinant 2 mg 12/27/24 10:16 12/27/24 11:57 Alteplase 2 Mg Vial (Cathflo) IV PUSH 2 mg ONCE PRN Administration Line Occlusion Lidocaine HCl 30 ml/ Al Hydrox 0 ml 12/25/24 13:00 12/29/24 09:17 /Mg Hydrox/Simethicone 30 ml/ PO 5 ml Diphenhydramine HCl 75 mg Q4HWA CEE Administration Dextrose 12.5 gm 12/14/24 10: Dextrose 50% 25 Gm/50 Ml Syringe IV PUSH PRN PRN Hypoglycemia Protocol Enoxaparin Sodium 40 mg 12/07/24 09:00 12/27/24 11:53 Enoxaparin 40 Mg/0.4 Ml Syringe SUB-Q Not Given On Hold: 12/28/24 05:46 DAILY CEE Glucose 15 gm 12/14/24 10:29 Glucose Oral Gel 15 Gm Of Glucse In 37.5 Gm Tube PO PRN PRN Hypoglycemia Protocol Dextrose 1,000 mls @ 100 mls/hr 12/14/24 10:29 Dextrose 5% 1,000 Ml IVPB PRN PRN Hypoglycemia Protocol Piperacillin Sod/Tazobactam 50 mls @ 100 mls/hr 12/17/24 14:30 12/29/24 05:21 Sod 3.375 gm/ Sodium Chloride IVPB 01/01/25 23:59 100 mls/hr Q6HR CEE Administration Fluconazole 400 mg in 200 mls @ 100 mls/hr 12/19/24 13:30 12/29/24 09:16 Diflucan 400 Mg/Nacl 200 Ml IVPB 01/01/25 10:59 100 mls/hr DAILY CEE Administration Sodium Chloride 250 mls @ 30 mls/hr 12/29/24 05:09 12/29/24 06:25 Normal Saline Iv IV CONT 12/29/24 13:28 30 mls/hr .Q8H20M STA Administration Insulin Aspart 3 - 6 units 12/22/24 08:00 12/29/24 08:26 Insulin Aspart (*Bkc) 100 Units/Ml SUB-Q Not Given TIDWM CEE Protocol Lorazepam 1 mg 12/22/24 14:58 12/29/24 09:15 Lorazepam (*Crx) 1 Mg Tablet PO 1 mg BID PRN Administration Anxiety Losartan Potassium 25 mg 12/28/24 13:55 12/29/24 09:16 Losartan Potassium 25 Mg Tablet PO 25 mg DAILY CEE Administration Naloxone HCl 0.1 mg 12/06/24 17:15 Naloxone Hcl 0.4 Mg/Ml Vial IV PUSH Q2M PRN Opiate Reversal Ondansetron HCl 4 mg 12/03/24 17:26 12/09/24 05:23 Ondansetron Inj 4 Mg/2 Ml Vial IV PUSH 4 mg Q4H PRN Administration Nausea And Vomiting Pantoprazole Sodium 40 mg 12/27/24 21:00 12/29/24 09:16 Pantoprazole Sodium Iv 40 Mg Vial IV PUSH 40 mg Q12HR CEE Administration Phenol 1 spray 12/07/24 10:05 Phenol/Sod Pheno [place] (*Bkc) MUCOUS MEM Q2H PRN Sore Throat Sodium Chloride 10 ml 12/07/24 14:00 12/29/24 05:22 Central Line Flush IV PUSH 10 ml Q8HR CEE Administration Sodium Chloride 20 ml 12/07/24 09:45 12/21/24 05:30 Central Line Flush IV PUSH 20 ml PRN PRN Administration after blood draws Radiology Results: ITS Impressions Renal Ultrasound 12/04/24 21:30 Impression: 1: Unremarkable renal ultrasound. No stones, masses or hydronephrosis. Pulmonary Perfusion Imaging 12/05/24 18:55 IMPRESSION: 1: Normal perfusion scan. Probable shallow lung volumes. Recommend correlation with chest x-ray.. Chest/Abdomen/Pelvis CT 12/10/24 10:51 IMPRESSION: 1. Small amount of likely residual free intraperineal gas and fluid post likely revision of an ileocolic anastomosis and placement of a surgical drain. No evident organized abscess or extraluminal contrast to suggest residual anastomotic leak. 2. Wall thickening along the sigmoid colon consistent with colitis infectious or inflammatory in etiology. Differential would also include residual reactive edema related to the prior anastomotic leak and recent surgery. 3. Volume loss in both lungs with atelectasis at the bilateral lung bases including complete collapse of the right middle lobe. Superimposed pneumonia not excludable but suspicion is low. 4. Chronic mild dilation the common bile duct without evident obstructing stone or mass, likely related to prior cholecystectomy but would correlate with liver function tests. CT Brain Angiography 12/13/24 11:34 IMPRESSION: 1. Normal aging brain. No acute intracranial process or abnormally enhancing brain lesions. 2. Unremarkable cerebral CT angiogram with no hemodynamic significant stenosis, thrombosis or aneurysm. Chest CTA 12/13/24 12:45 IMPRESSION: 1. No pulmonary embolus. Sensitivity is moderately decreased by motion artifact. 2. Small lung volumes with relative elevation of right hemidiaphragm. Moderate atelectasis in the inferior lungs 3. Ascites. Abdomen/Pelvis CT 12/26/24 17:56 IMPRESSION: Decrease in intra-abdominal free fluid. All CT scans at this facility are performed using low dose modulation techniques as appropriate to perform exam including the following: automated exposure control; use of iterative reconstruction technique; adjustment of the mA and/or kV according to patient size (this includes techniques or standardized protocols for targeted exams where dose is matched to indication/reason for exam). Chest X-Ray 12/28/24 07:01 IMPRESSION: 1. No change. 2. Bibasilar atelectasis. Labs Labs: Laboratory Results - last 24 hr 12/28/24 12/28/24 12/28/24 05:42 12:11 17:11 WBC RBC Hgb Hct MCV MCH MCHC RDW Plt Count MPV Immature Gran % (Auto) Neut % (Auto) Lymph % (Auto) [place] % (Auto) Eos % (Auto) Baso % (Auto) Lymph # (Auto) [place] # (Auto) Eos # (Auto) Baso # (Auto) Abs Immat Gran (auto) Absolute Neuts (auto) Absolute Nucleated RBC Nucleated RBC % Sodium Potassium Chloride Carbon Dioxide Anion Gap BUN Creatinine Estim Creat Clear Calc Estimated GFR Glucose POC Capillary Glucose 122 H 136 H Calcium Magnesium Total Bilirubin AST ALT Alkaline Phosphatase Total Protein Albumin Blood Type A Negative Antibody Screen Negative Crossmatch See Detail 12/28/24 12/29/24 12/29/24 20:10 01:37 04:28 WBC 16.9 H RBC 2.48 L Hgb 7.3 L 6.7 L* Hct 23.6 L 21.7 L MCV 87.5 MCH 27.0 MCHC 30.9 L RDW 19.1 H Plt Count 567 H MPV 9.0 Immature Gran % (Auto) Not Reportable Neut % (Auto) Not Reportable Lymph % (Auto) Not Reportable [place] % (Auto) Not Reportable Eos % (Auto) Not Reportable Baso % (Auto) Not Reportable Lymph # (Auto) Not Reportable [place] # (Auto) Not Reportable Eos # (Auto) Not Reportable Baso # (Auto) Not Reportable Abs Immat Gran (auto) Not Reportable Absolute Neuts (auto) Not Reportable Absolute Nucleated RBC Not Reportable Nucleated RBC % Not Reportable Sodium 133 L Potassium 3.3 L Chloride 99 Carbon Dioxide 33 H Anion Gap 1 L BUN 13 D Creatinine 0.63 L Estim Creat Clear Calc Not Reportable Estimated GFR > 60 Glucose 145 H POC Capillary Glucose 116 H Calcium 8.1 L Magnesium 1.7 Total Bilirubin 0.2 AST 31 ALT 19 Alkaline Phosphatase 228 H Total Protein 5.2 L Albumin 2.1 L Blood Type Antibody Screen Crossmatch 12/29/24 08:11 WBC RBC Hgb Hct MCV MCH MCHC RDW Plt Count MPV Immature Gran % (Auto) Neut % (Auto) Lymph % (Auto) [place] % (Auto) Eos % (Auto) Baso % (Auto) Lymph # (Auto) [place] # (Auto) Eos # (Auto) Baso # (Auto) Abs Immat Gran (auto) Absolute Neuts (auto) Absolute Nucleated RBC Nucleated RBC % Sodium Potassium Chloride Carbon Dioxide Anion Gap BUN Creatinine Estim Creat Clear Calc Estimated GFR Glucose POC Capillary Glucose 132 H Calcium Magnesium Total Bilirubin AST ALT Alkaline Phosphatase Total Protein Albumin Blood Type Antibody Screen Crossmatch
[2024-12-29 10:20] LABS: Hematocrit 25.5 % (37.0-47.0); Hemoglobin 8.0 g/dL (12.0-15.0)
--- NOTE | 2024-12-29 12:10 | WPDCN ---
Assessment and Plan Assessment and plan (1) Anemia: Code(s): D64.9 - Anemia, unspecified Status: Chronic (2) Epistaxis: Code(s): R04.0 - Epistaxis Status: Acute Assessment and Plan: Placed surgicel in the left nares to provide further hemostasis. There is some old blood in the nasopharynx and oropharynx but no active bleeding observed. Agree with holding blood thinners within reason to minimize epistaxis. Humidification is essential, so nasal saline 3-4x/daily in the nares. [place] saline gel is at the bedside and can be applied qHS. The surgicel will dissolve into a brown substance and may be coughed up which is not cause for concern. Please notify me if she bleeds actively, if so we may need to place the inflatable nasal packing although that is not pleasant and would then need to remain in the nose for several days. I will be by to check on her tomorrow AM. Kermit Barksdale MD Otolaryngology [phone] HPI Data of Consult Date/Time: 12/29/24 12:10 Requesting Physician: Linn May MD Primary Care Provider: Barbara Jordan MD Consult Narrative Reason for consult: epistaxis Narrative: Rosanna Johns is a 64 year old female with PMH of cancer the right colon S/P right colectomy, thrombosis of the mesenteric vein, WILL, diverticulitis, rhabdomyolysis (2021), hyperlipidemia and hypertension presented here on 12/03 with difficulty urinating, ultimately required additional surgery for leak and ileostomy. Has had melana in the ostomy and worsening anemia and some episodes of epistaxis and coughing blood although not constant and ENT consulted after it was felt that source was not from GI tract. Not having obvious bleeding out of the nares but has coughed up blood clots. Review of Systems Review of Systems: All systems reviewed & are unremarkable except as noted in HPI and below PMFSH Past Medical History Medical History Iron deficiency anemia Recurrent Clostridioides difficile diarrhea (~06/2024) 04/06, 05/07, 07/05 Cancer of right colon (~10/2024) 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: CT of abdomen - no portal vein thrombosis 04/06: CT of the abdomen shows portal vein thrombosis in the right liver lobe, inferior mesenteric vein and sigmoid branch vein thrombosis Osteopenia Iron deficiency anemia Diverticulitis large intestine (~03/27/24) Melanoma s/p excision Heart murmur Vitamin B12 deficiency Lumbar spondylosis COVID (~08/2021) History of TIA (transient ischemic attack) (~04/2021) Rhabdomyolysis (~04/2021) Anxiety Chronic lumbar pain Hyperlipidemia Hypertension Surgical History Surgical History History of partial colectomy 11/27/24 -hand assisted laparoscopic right colectomy History of appendectomy History of tonsillectomy (~1964) History of melanoma excision Left shoulder History of cervical spinal surgery (~2014) History of back surgery (~2018) Hx of cholecystectomy (Unknown) Family History Family History Mother Family history of elevated blood lipids Family history of emphysema Hypertension Grandparent Acute myocardial infarction Family history of malignant neoplasm of urinary bladder Father Patient's father is Dementia Sibling COPD (chronic obstructive pulmonary disease) Other Anxiety Depression Family history of chronic obstructive pulmonary disease Skin cancer Social History Social History Smoking packs per day: 0.5 Smoking cigarettes per day: 10.0 Years smoked: 2 Smoking pack-years: 1.00 Smoking status: Never smoker Tobacco type: cigarettes Second hand tobacco smoke exposure: No Alcohol intake: never Substance use: never Substance use type: does not use Do You Feel Safe in your Home?: No Lack of Transportation: No Lack of Food: Never True Current Housing: I Have Housing Concerned About Future Housing: No Difficulty Paying Gas/Electric Bills: No Difficulty Paying for Meds: No Currently Unemployed: No Education: High School Diploma/GED Difficulty w/ Childcare or Family Care: No Living arrangements: alone Gender identity (if verbalized by the patient): Female Spiritual care concerns: No Meds Home Medications and Allergies Home Medications ?Medication ?Instructions ?Recorded ?Confirmed ?Type cholecalciferol (vitamin D3) 25 25 mcg PO DAILY 04/06/21 12/03/24 History mcg (1,000 unit) capsule Lactobacills gasseri-Bifidobac 1 cap PO DAILY 04/25/21 12/03/24 History bifidum,longum 1.5 billion cell capsule ([place]) cyanocobalamin (vitamin B-12) 1,000 mcg sublingual .QOD 07/02/24 12/03/24 History 1,000 mcg sublingual tablet losartan 25 mg tablet 25 mg PO DAILY #100 tabs 07/02/24 12/03/24 Rx atorvastatin 20 mg tablet 20 mg PO QHS #90 tabs 07/25/24 12/03/24 Rx lorazepam 1 mg tablet 1 mg PO BID PRN Anxiety #90 tabs 11/12/24 12/03/24 Rx ondansetron 4 mg disintegrating 4 mg PO Q6-8H PRN nausea and 11/26/24 12/03/24 Rx tablet vomiting #14 tabs docusate sodium 100 mg capsule 100 mg PO BID #30 caps 11/29/24 12/03/24 Rx (Colace) hydrocodone 5 mg-acetaminophen 325 1 tablet PO Q6H PRN pain #30 tabs 11/29/24 12/03/24 Rx mg tablet omega-3 fatty acids 500 mg capsule 500 mg PO DAILY 12/03/24 12/03/24 History (MaxEPA) Allergies Allergy/AdvReac Type Severity Reaction Status Date / Time Sulfa (Sulfonamide AdvReac Mild Hives Verified 12/06/24 12:37 Antibiotics) sulfamethizole AdvReac Mild Hives Verified 12/06/24 12:37 sulfamethoxazole AdvReac Mild HIVES Verified 12/06/24 12:37 trimethoprim AdvReac Mild Hives Verified 12/06/24 12:37 Vital Signs Vital Signs - 24 hr 12/28/24 15:31 12/28/24 16:00 12/28/24 20:00 Temperature 36.3 C L Pulse Rate 104 H 97 Respiratory Rate 20 Blood Pressure 147/90 H Pulse Oximetry 98 Oxygen Delivery Room Air Oxygen Flow Rate Fraction of Inspired Oxygen 12/28/24 20:00 12/28/24 20:36 12/28/24 22:00 Temperature 37.1 C Pulse Rate 103 H 109 H Respiratory Rate 18 Blood Pressure 144/90 H Pulse Oximetry 97 96 Oxygen Delivery Room Air Oxygen Flow Rate Fraction of Inspired Oxygen 21 12/29/24 00:00 12/29/24 01:00 12/29/24 02:44 Temperature 37.0 C 37.0 C Pulse Rate 95 118 H 118 H Respiratory Rate 16 16 Blood Pressure 151/95 H 151/95 H Pulse Oximetry 93 93 Oxygen Delivery Room Air Oxygen Flow Rate Fraction of Inspired Oxygen 12/29/24 04:00 12/29/24 06:00 12/29/24 06:21 Temperature 36.5 C 36.5 C Pulse Rate 114 H 110 H 110 H Respiratory Rate 18 18 Blood Pressure 131/85 131/85 Pulse Oximetry 99 99 Oxygen Delivery Oxygen Flow Rate Fraction of Inspired Oxygen 12/29/24 06:40 12/29/24 07:40 12/29/24 08:05 Temperature 37.0 C 36.8 C Pulse Rate 106 H 109 H Respiratory Rate 20 18 Blood Pressure 127/73 143/82 H Pulse Oximetry 100 99 99 Oxygen Delivery Nasal Cannula Oxygen Flow Rate 1 Fraction of Inspired Oxygen 12/29/24 08:40 12/29/24 08:55 Temperature 36.9 C 36.9 C Pulse Rate 115 H 115 H Respiratory Rate 20 20 Blood Pressure 140/90 140/90 Pulse Oximetry 98 98 Oxygen Delivery Oxygen Flow Rate Fraction of Inspired Oxygen Exam Narrative: Dry mucous membranes. The nasal passages have crusted old blood, no active bleeding noted. It appears to be more prominent on the left. Exam of the oropharynx shows some old clot draining on the left side suggestive of a low flow left sided epistaxis. Afrin soaked cottonoids placed on the left side and removed after 10 minutes with some blood on the pledget. Afrin soaked surgicel placed in the nares on the left side, including posteriorly in an attempt to better control bleeding. No active bleeding was observed throughout the exam and placement of this absorbable packing. Results Labs 12/29/24 10:08 12/29/24 04:28 Labs: Short CBC 12/29/24 12/29/24 12/29/24 Range/Units 01:37 04:28 10:08 WBC 16.9 H (4.5-10.0) K/mm3 Hgb 7.3 L 6.7 L* 8.0 L (12.0-15.0) g/dL Hct 23.6 L 21.7 L 25.5 L (37.0-47.0) % Plt Count 567 H (150-375) k/mm3 BMP 12/29/24 04:28 Sodium 133 L Potassium 3.3 L Chloride 99 Carbon Dioxide 33 H BUN 13 D Creatinine 0.63 L Glucose 145 H Calcium 8.1 L Liver Function 12/29/24 Range/Units 04:28 Total Bilirubin 0.2 (0.2-1.3) mg/dL AST 31 (14-36) U/L ALT 19 (6-35) U/L Alkaline Phosphatase 228 H (38-126) U/L Albumin 2.1 L (3.5-5.1) g/dL
--- NOTE | 2024-12-29 12:26 | P.PNIM_ITS ---
Progress Note: A&P Assessment and Plan (1) History of partial colectomy: Code(s): Z90.49 - Acquired absence of other specified parts of digestive tract Status: Resolved (2) Ileocolic anastomotic leak: Code(s): K91.89 - Other postprocedural complications and disorders of digestive system Status: Acute (3) Acute blood loss anemia: Code(s): D62 - Acute posthemorrhagic anemia Status: Acute (4) Acute hypoxemic respiratory failure: Code(s): J96.01 - Acute respiratory failure with hypoxia Status: Acute Plan 64 y/o F with PMH of cancer the right colon S/P right colectomy, thrombosis of the mesenteric vein, WILL, diverticulitis, rhabdomyolysis (2021), hyperlipidemia and hypertension presented here on 12/03 with difficulty urinating. Previously underwent a hand assisted laparoscopic right colectomy with extensive adhesiolysis, mobilization of hepatic flexure by Dr. May on 11/27/24. Discharge on postop day 2 as she was doing well. At home she has had worsening abdominal pain, constipation. On readmission she has had a lengthy hospital course, on 12/06 undergoing a exploratory laparotomy with ileocolic resection with [id number] ileo colic anastomosis drainage of intra-abdominal abscess with placement of wound VAC. Due to bile in JUHI drains she had a repeat abdomen pelvis CT with water-soluble oral contrast demonstrating right hemicolectomy with anastomotic leak. On 12/13/2024 she underwent re-exploration with ileocolic resection with end ileostomy and mucous fistula creation and placement of wound VAC within subcutaneous space measuring 12 cm x 3 cm. General surgery managing wounds, wound VAC, JUHI drain. Currently on TPN. Wound care per surgery and unit protocol and wound care. Next wound VAC Saturday 12/23. Malnutrition: Related to surgery, continue TPN. NG tube in place which is clamped. Started on clear liquid per General surgery. This has been advanced to full liquid now. NG has been removed 12/17/2024 Sepsis: Monitor leukocytosis, tachypnea, tachycardia. Overall trend of leukocytosis has peaked at 19.9 on 12/08/2024, currently improving to 12. Continue to monitor along with procalcitonin. Infectious Disease consulted, continue zosyn, fluconazole, vancomycin p.o. 12/04/2024 blood culture x2 negative, final. vancomycin oral needs to transition to administration through mucous fistula- difficulty administering, surgery to be notified C diff colitis: Appreciate ID recommendations, p.o. vancomycin total 3 weeks via ostomy has been unable to be administered since 12/22 due to difficulty with stoma. Patient failed stoma Vancomycin administration and failed Vanc enema PO Vanc discontinued per ID, ID and Gen surgery on board Stool is forming now Patient comfortable at bedside Post hemorrhagic anemia: Monitor daily hemoglobin, stable. Restart Lovenox 40 mg subQ q.day for DVT prophylaxis when okay by surgery. Hypocalcemia: After correction for hypoalbuminemia, 8.1. Continue to monitor. Elevated blood glucose readings: HbA1c 6.0%. Accu-Cheks q.6 hours with hypoglycemia protocol and low-dose insulin sliding scale. Acute hypoxic respiratory failure: Patient weaned to room air on 12/15/2024. Due to atelectasis, CTA chest did not demonstrate pneumonia/PE. Continue incentive spirometer and EzPAP q.i.d.. Mobilize as soon as possible. Acute kidney injury and urinary retention: Could be due to hypovolemia, anemia, urinary retention, sepsis, contrast exposure. DARRYL has resolved. Nephrology signed off. Limon catheter remains due to surgery and immobility. Hypertension: Resume Losartan and adjust with clinical course Anemia hemoglobin down to 6.6 12/18/2024 1 unit PRBC. Now stable at 8.8. Intraabdominal abscess Continue Zosyn, Fluconazole and Vanc until 01/01 per ID Melena stool noted this morning and FOBT positive Hb stable, 8 s/p 1 unit pRBC this morning (hb was 6.7) with total of 2 units this admission GI evaluated and not concerned about GI bleed Epistaxis Likely cause of GI bleed INR 1.1, PTT 42.1 Lovenox on hold, IVF ENT consulted DVT prophylaxis: SCDs. Lovenox 40 mg daily currently on hold due to anemia Nutrition: regular Prophylaxis: Protonix 40 mg IV q.a.m. for ulcer prophylaxis. PT/OT following Right upper extremity PICC line Deconditioning, PT/OT as appropriate per General surgery team. EzPAP, incentive spirometer. Patient wishes to be full code. Prior to admission she lives at home and was independent. Awaiting ENT eval Subjective Date/time seen: 12/29/24 12:26 Interval history: Comfortable at bedside It appears epistaxis is the cause of the GI bleed ENT consult Review of Systems Review of Systems: All systems reviewed & are unremarkable except as noted in HPI and below (Subjective) Exam Narrative: GENERAL: Alert and oriented x3, not in acute distress HEAD: Normal with no signs of head trauma. EYES: EOMI, conjunctiva normal ENT: Hearing grossly intact LUNGS: Nonlabored breathing. No adventitious sounds HEART: [Regular rate and rhythm], no murmurs ABD: [Soft], mildly distended, mild tenderness, surgical incision with wound VAC, clean dry and intact. Colostomy and RLQ stoma noted. EXT: Normal range of motion SKIN: [No rashes or lesions.] NEURO: [Alert and oriented x 3. No gross focal sensory or strength deficits.] PSYCH: Normal affect Const: General: comfortable and no acute distress Other: A&O x3 HENMT: Face/Nose/Sinus: Normal nares present Mouth: Yes moist mucous membranes and Yes dry mucous membranes Eyes: General: appearance normal, both eyes and all related structures Sclera: sclerae normal Pupils: Equal, round and reactive pupils present EOM: EOMs intact bilaterally Neck: Neck: supple Resp: Effort & Inspection: normal respiratory effort Auscultation: clear to auscultation bilaterally and crackles Other: Slowly decreased breath sounds at bilateral bases, no crackles/wheezing/rhonchi Cardio: Rate: regular rate and tachycardic Rhythm: regular rhythm Heart sounds: no gallops and no murmurs Other: S1-S2 present without murmur, rub, ectopy GI: Inspection: non-distended Other: Right-sided mucous fistula with serosanguineous drainage, end ileostomy with light brown serous drainage, JUHI drain with serosanguineous drainage, wound VAC intact. Urinary Catheter: Urinary Catheter: patent and draining Skin: General skin exam: normal color and no rashes or lesions noted Other: Postsurgical incision to abdomen is well approximated, sutures in place, no signs of infection Neuro: Cranial nerves: Yes Equal, round and reactive pupils present Speech: normal speech Motor exam (neuro): 5/5 motor strength present throughout Sensory Exam: normal sensation Other: Generalized weakness Extrem: General: normal to inspection and edema Other: Trace edema bilateral lower extremities Psych: Mental Status: mental status grossly normal Affect: normal affect Other: Good insight and judgment, pleasant Objective Data Vital Signs Vital Signs: Vital Signs - 24 hr 12/28/24 15:31 12/28/24 16:00 12/28/24 20:00 Temperature 97.3 F L Pulse Rate 104 H 97 Respiratory Rate 20 Blood Pressure 147/90 H Pulse Oximetry 98 Oxygen Delivery Room Air Oxygen Flow Rate Fraction of Inspired Oxygen 12/28/24 20:00 12/28/24 20:36 12/28/24 22:00 Temperature 98.8 F Pulse Rate 103 H 109 H Respiratory Rate 18 Blood Pressure 144/90 H Pulse Oximetry 97 96 Oxygen Delivery Room Air Oxygen Flow Rate Fraction of Inspired Oxygen 21 12/29/24 00:00 12/29/24 01:00 12/29/24 02:44 Temperature 98.6 F 98.6 F Pulse Rate 95 118 H 118 H Respiratory Rate 16 16 Blood Pressure 151/95 H 151/95 H Pulse Oximetry 93 93 Oxygen Delivery Room Air Oxygen Flow Rate Fraction of Inspired Oxygen 12/29/24 04:00 12/29/24 06:00 12/29/24 06:21 Temperature 97.7 F 97.7 F Pulse Rate 114 H 110 H 110 H Respiratory Rate 18 18 Blood Pressure 131/85 131/85 Pulse Oximetry 99 99 Oxygen Delivery Oxygen Flow Rate Fraction of Inspired Oxygen 12/29/24 06:40 12/29/24 07:40 12/29/24 08:05 Temperature 98.6 F 98.2 F Pulse Rate 106 H 109 H Respiratory Rate 20 18 Blood Pressure 127/73 143/82 H Pulse Oximetry 100 99 99 Oxygen Delivery Nasal Cannula Oxygen Flow Rate 1 Fraction of Inspired Oxygen 12/29/24 08:40 12/29/24 08:55 Temperature 98.4 F 98.4 F Pulse Rate 115 H 115 H Respiratory Rate 20 20 Blood Pressure 140/90 140/90 Pulse Oximetry 98 98 Oxygen Delivery Oxygen Flow Rate Fraction of Inspired Oxygen Intake/Output Intake/Output: Intake & Output 12/26/24 12/27/24 12/28/24 12/29/24 23:59 23:59 23:59 23:59 Intake Total 3697 4424 2910 400 Output Total 2150 3075 1950 390 Balance 1547 1349 960 10 Meds/Results Medications: Active Medications Generic Name Dose Route Start Last Admin Trade Name Freq PRN Reason Stop Dose Admin Acetaminophen 650 mg 12/18/24 15:40 12/27/24 21:56 Acetaminophen 325 Mg Tablet PO 650 mg Q4H PRN Administration Mild Pain (1-3) or Fever Hydrocodone Bitart/Acetaminophen 1 tab 12/27/24 18:51 12/28/24 18:01 Hydrocodone/Acetaminophen (*Crx) 10-325 Mg Tablet PO 1 tab Q6H PRN Administration Pain Rated 7-10 Hydrocodone Bitart/Acetaminophen 1 tab 12/27/24 18:51 12/29/24 09:15 Hydrocodone/Acetaminophen (*Crx) 5-325 Mg Tablet PO 1 tab Q4H PRN Administration Pain Rated 4-6 Alteplase, Recombinant 2 mg 12/27/24 10:16 12/27/24 11:57 Alteplase 2 Mg Vial (Cathflo) IV PUSH 2 mg ONCE PRN Administration Line Occlusion Lidocaine HCl 30 ml/ Al Hydrox 0 ml 12/25/24 13:00 12/29/24 09:17 /Mg Hydrox/Simethicone 30 ml/ PO 5 ml Diphenhydramine HCl 75 mg Q4HWA CEE Administration Dextrose 12.5 gm 12/14/24 10:29 Dextrose 50% 25 Gm/50 Ml Syringe IV PUSH PRN PRN Hypoglycemia Protocol Enoxaparin Sodium 40 mg 12/07/24 09:00 12/27/24 11:53 Enoxaparin 40 Mg/0.4 Ml Syringe SUB-Q Not Given On Hold: 12/28/24 05:46 DAILY CEE Glucose 15 gm 12/14/24 10:29 Glucose Oral Gel 15 Gm Of Glucse In 37.5 Gm Tube PO PRN PRN Hypoglycemia Protocol Dextrose 1,000 mls @ 100 mls/hr 12/14/24 10:29 Dextrose 5% 1,000 Ml IVPB PRN PRN Hypoglycemia Protocol Piperacillin Sod/Tazobactam 50 mls @ 100 mls/hr 12/17/24 14:30 12/29/24 05:21 Sod 3.375 gm/ Sodium Chloride IVPB 01/01/25 23:59 100 mls/hr Q6HR CEE Administration Fluconazole 400 mg in 200 mls @ 100 mls/hr 12/19/24 13:30 12/29/24 09:16 Diflucan 400 Mg/Nacl 200 Ml IVPB 01/01/25 10:59 100 mls/hr DAILY CEE Administration Sodium Chloride 250 mls @ 30 mls/hr 12/29/24 05:09 12/29/24 06:25 Normal Saline Iv IV CONT 12/29/24 13:28 30 mls/hr .Q8H20M STA Administration Insulin Aspart 3 - 6 units 12/22/24 08:00 12/29/24 08:26 Insulin Aspart (*Bkc) 100 Units/Ml SUB-Q Not Given TIDWM CEE Protocol Lorazepam 1 mg 12/22/24 14:58 12/29/24 09:15 Lorazepam (*Crx) 1 Mg Tablet PO 1 mg BID PRN Administration Anxiety Losartan Potassium 25 mg 12/28/24 13:55 12/29/24 09:16 Losartan Potassium 25 Mg Tablet PO 25 mg DAILY CEE Administration Naloxone HCl 0.1 mg 12/06/24 17:15 Naloxone Hcl 0.4 Mg/Ml Vial IV PUSH Q2M PRN Opiate Reversal Ondansetron HCl 4 mg 12/03/24 17:26 12/09/24 05:23 Ondansetron Inj 4 Mg/2 Ml Vial IV PUSH 4 mg Q4H PRN Administration Nausea And Vomiting Oxymetazoline HCl 1 spray 12/29/24 10:31 Oxymetazoline Hcl 0.05% Mahendra 15 Ml Btl (*Bkc) NASAL Q12HR PRN Congestion Pantoprazole Sodium 40 mg 12/27/24 21:00 12/29/24 09:16 Pantoprazole Sodium Iv 40 Mg Vial IV PUSH 40 mg Q12HR CEE Administration Phenol 1 spray 12/07/24 10:05 Phenol/Sod Pheno [place] Sal[place] (*Bkc) MUCOUS MEM Q2H PRN Sore Throat Sodium Chloride 10 ml 12/07/24 14:00 12/29/24 05:22 Central Line Flush IV PUSH 10 ml Q8HR CEE Administration Sodium Chloride 20 ml 12/07/24 09:45 12/21/24 05:30 Central Line Flush IV PUSH 20 ml PRN PRN Administration after blood draws Sodium Chloride 1 applic 12/29/24 10:52 Sodium Chloride Nasal Gel 14.1 Gm NASAL PRN PRN nose bleed Radiology Results: ITS Impressions Renal Ultrasound 12/04/24 21:30 Impression: 1: Unremarkable renal ultrasound. No stones, masses or hydronephrosis. Pulmonary Perfusion Imaging 12/05/24 18:55 IMPRESSION: 1: Normal perfusion scan. Probable shallow lung volumes. Recommend correlation with chest x-ray.. Chest/Abdomen/Pelvis CT 12/10/24 10:51 IMPRESSION: 1. Small amount of likely residual free intraperineal gas and fluid post likely revision of an ileocolic anastomosis and placement of a surgical drain. No evident organized abscess or extraluminal contrast to suggest residual anastomotic leak. 2. Wall thickening along the sigmoid colon consistent with colitis infectious or inflammatory in etiology. Differential would also include residual reactive edema related to the prior anastomotic leak and recent surgery. 3. Volume loss in both lungs with atelectasis at the bilateral lung bases including complete collapse of the right middle lobe. Superimposed pneumonia not excludable but suspicion is low. 4. Chronic mild dilation the common bile duct without evident obstructing stone or mass, likely related to prior cholecystectomy but would correlate with liver function tests. CT Brain Angiography 12/13/24 11:34 IMPRESSION: 1. Normal aging brain. No acute intracranial process or abnormally enhancing brain lesions. 2. Unremarkable cerebral CT angiogram with no hemodynamic significant stenosis, thrombosis or aneurysm. Chest CTA 12/13/24 12:45 IMPRESSION: 1. No pulmonary embolus. Sensitivity is moderately decreased by motion artifact. 2. Small lung volumes with relative elevation of right hemidiaphragm. Moderate atelectasis in the inferior lungs 3. Ascites. Abdomen/Pelvis CT 12/26/24 17:56 IMPRESSION: Decrease in intra-abdominal free fluid. All CT scans at this facility are performed using low dose modulation techniques as appropriate to perform exam including the following: automated exposure control; use of iterative reconstruction technique; adjustment of the mA and/or kV according to patient size (this includes techniques or standardized protocols for targeted exams where dose is matched to indication/reason for exam). Chest X-Ray 12/28/24 07:01 IMPRESSION: 1. No change. 2. Bibasilar atelectasis. Labs Labs: Laboratory Results - last 24 hr 12/28/24 12/28/24 12/28/24 05:42 17:11 20:10 WBC RBC Hgb Hct MCV MCH MCHC RDW Plt Count MPV Immature Gran % (Auto) Neut % (Auto) Lymph % (Auto) [place] % (Auto) Eos % (Auto) Baso % (Auto) Lymph # (Auto) [place] # (Auto) Eos # (Auto) Baso # (Auto) Abs Immat Gran (auto) Absolute Neuts (auto) Absolute Nucleated RBC Nucleated RBC % Sodium Potassium Chloride Carbon Dioxide Anion Gap BUN Creatinine Estim Creat Clear Calc Estimated GFR Glucose POC Capillary Glucose 136 H 116 H Calcium Magnesium Total Bilirubin AST ALT Alkaline Phosphatase Total Protein Albumin Blood Type A Negative Antibody Screen Negative Crossmatch See Detail 12/29/24 12/29/24 12/29/24 01:37 04:28 08:11 WBC 16.9 H RBC 2.48 L Hgb 7.3 L 6.7 L* Hct 23.6 L 21.7 L MCV 87.5 MCH 27.0 MCHC 30.9 L RDW 19.1 H Plt Count 567 H MPV 9.0 Immature Gran % (Auto) Not Reportable Neut % (Auto) Not Reportable Lymph % (Auto) Not Reportable [place] % (Auto) Not Reportable Eos % (Auto) Not Reportable Baso % (Auto) Not Reportable Lymph # (Auto) Not Reportable [place] # (Auto) Not Reportable Eos # (Auto) Not Reportable Baso # (Auto) Not Reportable Abs Immat Gran (auto) Not Reportable Absolute Neuts (auto) Not Reportable Absolute Nucleated RBC Not Reportable Nucleated RBC % Not Reportable Sodium 133 L Potassium 3.3 L Chloride 99 Carbon Dioxide 33 H Anion Gap 1 L BUN 13 D Creatinine 0.63 L Estim Creat Clear Calc Not Reportable Estimated GFR > 60 Glucose 145 H POC Capillary Glucose 132 H Calcium 8.1 L Magnesium 1.7 Total Bilirubin 0.2 AST 31 ALT 19 Alkaline Phosphatase 228 H Total Protein 5.2 L Albumin 2.1 L Blood Type Antibody Screen Crossmatch 12/29/24 10:08 WBC RBC Hgb 8.0 L Hct 25.5 L MCV MCH MCHC RDW Plt Count MPV Immature Gran % (Auto) Neut % (Auto) Lymph % (Auto) [place] % (Auto) Eos % (Auto) Baso % (Auto) Lymph # (Auto) [place] # (Auto) Eos # (Auto) Baso # (Auto) Abs Immat Gran (auto) Absolute Neuts (auto) Absolute Nucleated RBC Nucleated RBC % Sodium Potassium Chloride Carbon Dioxide Anion Gap BUN Creatinine Estim Creat Clear Calc Estimated GFR Glucose POC Capillary Glucose Calcium Magnesium Total Bilirubin AST ALT Alkaline Phosphatase Total Protein Albumin Blood Type Antibody Screen Crossmatch Quality VTE Prophylaxis VTE prophylaxis: mechanical ordered
[2024-12-29] MEDS: CELLULOSE OXIDIZED 2 x 3 INCH 1 PKT XX (12:57)
[2024-12-29] MEDS: HYDROcodone/acetaminophen (*CRX) 10-325 MG TABLET 1 TAB PO (17:00)
[2024-12-30] VITALS (10 sets, daily range): BP systolic 140–143; BP diastolic 83–97; PULSE 96–114; RESP 16–19; TEMP 36.6–36.8; O2SAT 94–97
[2024-12-30] MEDS: PIPERACILLIN/TAZOBACTAM SOD 3.375 GM in SODIUM CHLORIDE 0.9% IV 50 ML 100 ML IVPB ×5 (00:29→23:25)
[2024-12-30] MEDS: HYDROcodone/acetaminophen (*CRX) 5-325 MG TABLET 1 TAB PO ×2 (01:28→09:57)
[2024-12-30] MEDS: CENTRAL LINE FLUSH 10 ML IV PUSH ×3 (05:10→22:04)
[2024-12-30] MEDS: LIDOCAINE 2% VISC SOLN 30 ML, ALUMINUM/MAGNESIUM/SIMETH SUSP 30 ML, diphenhydrAMINE HCl... PO ×4 (05:11→17:53)
[2024-12-30] MEDS: SODIUM CHLORIDE NASAL GEL 14.1 GM 1 APPLIC NASAL (05:16)
[2024-12-30] MEDS: LORazepam (*CRX) 1 MG TABLET PO (09:57)
[2024-12-30] MEDS: LOSARTAN POTASSIUM 25 MG TABLET PO (09:57)
[2024-12-30] MEDS: PANTOPRAZOLE SODIUM IV 40 MG VIAL IV PUSH ×2 (09:58→22:04)
[2024-12-30] MEDS: FLUCONAZOLE 400 MG/NACL 200 ML 400 MG/200 ML BAG 100 MG IVPB (09:59)
[2024-12-30 10:45] LABS: Hematocrit 24.4 % (37.0-47.0); Hemoglobin 7.7 g/dL (12.0-15.0); Immature Granulocyte Percent A 1.2 % (0-0.5); Lymphocytes Absolute Auto 1.33 K/mm3 (0.9-3.2); Mean Corpuscular HGB Conc 31.6 g/dl (32-36); Mean Corpuscular Hemoglobin 27.2 pg (26-34); Mean Corpuscular Volume 86.2 fl (80-100); Nucleated Red Blood Cells Absolute Auto 0.020 K/mm3 (0.0-0.012); Nucleated Red Blood Cells Perc 0.1 % (0.0-0.2); Platelet Count Result 494 k/mm3 (150-375); Red Blood Count 2.83 M/mm3 (4.2-5.4); White Blood Count 15.5 K/mm3 (4.5-10.0)
--- NOTE | 2024-12-30 10:50 | WPDPN ---
Progress Note: A&P Assessment and Plan (1) Epistaxis: Code(s): R04.0 - Epistaxis Status: Acute Plan no further epistaxis since consultation yesterday. Packing will dissolve over a few days. Continue saline TID and ayr gel qHS. Call if there is further concern, thank you Kermit Barksdale MD Otolaryngology Subjective Date/time seen: 12/30/24 10:50 Interval history: no further bleeding overnight Review of Systems Review of Systems: All systems reviewed & are unremarkable except as noted in HPI and below Exam Narrative: surgicel packing sitting in left nares, starting to dissolve, no active bleeding in nose or oropharynx Objective Data Vital Signs Vital Signs: Vital Signs - 24 hr 12/29/24 12:00 12/29/24 14:00 12/29/24 16:00 Temperature 36.9 C Pulse Rate 106 H 112 H 104 H Respiratory Rate 20 Blood Pressure 141/82 H Pulse Oximetry 97 Oxygen Delivery 12/29/24 20:00 12/29/24 22:00 12/30/24 00:00 Temperature 36.1 C L Pulse Rate 106 H 111 H 103 H Respiratory Rate 20 Blood Pressure 148/91 H Pulse Oximetry 97 Oxygen Delivery 12/30/24 04:00 12/30/24 04:45 12/30/24 10:41 Temperature 36.6 C Pulse Rate 96 104 H Respiratory Rate 19 Blood Pressure 140/87 Pulse Oximetry 95 94 Oxygen Delivery Room Air Intake/Output Intake/Output: Intake & Output 12/27/24 12/28/24 12/29/24 12/30/24 23:59 23:59 23:59 23:59 Intake Total 4424 2910 1950 590 Output Total 3075 1950 565 Balance 4731 411 5778 590 Meds/Results Medications: Active Medications Generic Name Dose Route Start Last Admin Trade Name Freq PRN Reason Stop Dose Admin Acetaminophen 650 mg 12/18/24 15:40 12/27/24 21:56 Acetaminophen 325 Mg Tablet PO 650 mg Q4H PRN Administration Mild Pain (1-3) or Fever Hydrocodone Bitart/Acetaminophen 1 tab 12/27/24 18:51 12/29/24 17:00 Hydrocodone/Acetaminophen (*Crx) 10-325 Mg Tablet PO 1 tab Q6H PRN Administration Pain Rated 7-10 Hydrocodone Bitart/Acetaminophen 1 tab 12/27/24 18:51 12/30/24 09:57 Hydrocodone/Acetaminophen (*Crx) 5-325 Mg Tablet PO 1 tab Q4H PRN Administration Pain Rated 4-6 Alteplase, Recombinant 2 mg 12/27/24 10:16 12/27/24 11:57 Alteplase 2 Mg Vial (Cathflo) IV PUSH 2 mg ONCE PRN Administration Line Occlusion Lidocaine HCl 30 ml/ Al Hydrox 0 ml 12/25/24 13:00 12/30/24 09:58 /Mg Hydrox/Simethicone 30 ml/ PO 5 ml Diphenhydramine HCl 75 mg Q4HWA CEE Administration Dextrose 12.5 gm 12/14/24 10:29 Dextrose 50% 25 Gm/50 Ml Syringe IV PUSH PRN PRN Hypoglycemia Protocol Enoxaparin Sodium 40 mg 12/07/24 09:00 12/27/24 11:53 Enoxaparin 40 Mg/0.4 Ml Syringe SUB-Q Not Given On Hold: 12/28/24 05:46 DAILY CEE Glucose 15 gm 12/14/24 10:29 Glucose Oral Gel 15 Gm Of Glucse In 37.5 Gm Tube PO PRN PRN Hypoglycemia Protocol Dextrose 1,000 mls @ 100 mls/hr 12/14/24 10:29 Dextrose 5% 1,000 Ml IVPB PRN PRN Hypoglycemia Protocol Piperacillin Sod/Tazobactam 50 mls @ 100 mls/hr 12/17/24 14:30 12/30/24 05:40 Sod 3.375 gm/ Sodium Chloride IVPB 01/01/25 23:59 Infused Q6HR CEE Infusion Fluconazole 400 mg in 200 mls @ 100 mls/hr 12/19/24 13:30 12/30/24 09:59 Diflucan 400 Mg/Nacl 200 Ml IVPB 01/01/25 10:59 100 mls/hr DAILY CEE Administration Insulin Aspart 3 - 6 units 12/22/24 08:00 12/30/24 08:34 Insulin Aspart (*Bkc) 100 Units/Ml SUB-Q Not Given TIDWM CEE Protocol Lorazepam 1 mg 12/22/24 14:58 12/30/24 09:57 Lorazepam (*Crx) 1 Mg Tablet PO 1 mg BID PRN Administration Anxiety Losartan Potassium 25 mg 12/28/24 13:55 12/30/24 09:57 Losartan Potassium 25 Mg Tablet PO 25 mg DAILY CEE Administration Naloxone HCl 0.1 mg 12/06/24 17:15 Naloxone Hcl 0.4 Mg/Ml Vial IV PUSH Q2M PRN Opiate Reversal Ondansetron HCl 4 mg 12/03/24 17:26 12/09/24 05:23 Ondansetron Inj 4 Mg/2 Ml Vial IV PUSH 4 mg Q4H PRN Administration Nausea And Vomiting Oxymetazoline HCl 1 spray 12/29/24 10:31 Oxymetazoline Hcl 0.05% Mahendra 15 Ml Btl (*Bkc) NASAL Q12HR PRN Congestion Pantoprazole Sodium 40 mg 12/27/24 21:00 12/30/24 09:58 Pantoprazole Sodium Iv 40 Mg Vial IV PUSH 40 mg Q12HR CEE Administration Phenol 1 spray 12/07/24 10:05 Phenol/Sod Pheno [place] (*Bkc) MUCOUS MEM Q2H PRN Sore Throat Sodium Chloride 10 ml 12/07/24 14:00 12/30/24 05:10 Central Line Flush IV PUSH 10 ml Q8HR CEE Administration Sodium Chloride 20 ml 12/07/24 09:45 12/21/24 05:30 Central Line Flush IV PUSH 20 ml PRN PRN Administration after blood draws Sodium Chloride 1 applic 12/29/24 10:52 12/30/24 05:16 Sodium Chloride Nasal Gel 14.1 Gm NASAL 1 applic PRN PRN Administration nose bleed Radiology Results: ITS Impressions Renal Ultrasound 12/04/24 21:30 Impression: 1: Unremarkable renal ultrasound. No stones, masses or hydronephrosis. Pulmonary Perfusion Imaging 12/05/24 18:55 IMPRESSION: 1: Normal perfusion scan. Probable shallow lung volumes. Recommend correlation with chest x-ray.. Chest/Abdomen/Pelvis CT 12/10/24 10:51 IMPRESSION: 1. Small amount of likely residual free intraperineal gas and fluid post likely revision of an ileocolic anastomosis and placement of a surgical drain. No evident organized abscess or extraluminal contrast to suggest residual anastomotic leak. 2. Wall thickening along the sigmoid colon consistent with colitis infectious or inflammatory in etiology. Differential would also include residual reactive edema related to the prior anastomotic leak and recent surgery. 3. Volume loss in both lungs with atelectasis at the bilateral lung bases including complete collapse of the right middle lobe. Superimposed pneumonia not excludable but suspicion is low. 4. Chronic mild dilation the common bile duct without evident obstructing stone or mass, likely related to prior cholecystectomy but would correlate with liver function tests. CT Brain Angiography 12/13/24 11:34 IMPRESSION: 1. Normal aging brain. No acute intracranial process or abnormally enhancing brain lesions. 2. Unremarkable cerebral CT angiogram with no hemodynamic significant stenosis, thrombosis or aneurysm. Chest CTA 12/13/24 12:45 IMPRESSION: 1. No pulmonary embolus. Sensitivity is moderately decreased by motion artifact. 2. Small lung volumes with relative elevation of right hemidiaphragm. Moderate atelectasis in the inferior lungs 3. Ascites. Abdomen/Pelvis CT 12/26/24 17:56 IMPRESSION: Decrease in intra-abdominal free fluid. All CT scans at this facility are performed using low dose modulation techniques as appropriate to perform exam including the following: automated exposure control; use of iterative reconstruction technique; adjustment of the mA and/or kV according to patient size (this includes techniques or standardized protocols for targeted exams where dose is matched to indication/reason for exam). Chest X-Ray 12/28/24 07:01 IMPRESSION: 1. No change. 2. Bibasilar atelectasis. Labs Labs: Laboratory Results - last 24 hr 12/29/24 12/29/24 12/29/24 12:21 15:44 20:40 WBC RBC Hgb Hct MCV MCH MCHC RDW Plt Count MPV Immature Gran % (Auto) Neut % (Auto) Lymph % (Auto) [place] % (Auto) Eos % (Auto) Baso % (Auto) Lymph # (Auto) [place] # (Auto) Eos # (Auto) Baso # (Auto) Abs Immat Gran (auto) Absolute Neuts (auto) Absolute Nucleated RBC Nucleated RBC % POC Capillary Glucose 120 H 143 H 154 H 12/30/24 12/30/24 08:02 10:31 WBC 15.5 H RBC 2.83 L Hgb 7.7 L Hct 24.4 L MCV 86.2 MCH 27.2 MCHC 31.6 L RDW 18.3 H Plt Count 494 H MPV 8.6 Immature Gran % (Auto) 1.2 H Neut % (Auto) 83.8 H Lymph % (Auto) 8.6 L [place] % (Auto) 5.0 Eos % (Auto) 0.8 Baso % (Auto) 0.6 Lymph # (Auto) 1.33 [place] # (Auto) 0.8 H Eos # (Auto) 0.1 Baso # (Auto) 0.1 Abs Immat Gran (auto) 0.19 H Absolute Neuts (auto) 13.0 H Absolute Nucleated RBC 0.020 H Nucleated RBC % 0.1 POC Capillary Glucose 99
[2024-12-30 11:10] LABS: Anion Gap 3 mmol/L (4-12); Blood Urea Nitrogen 14 mg/dL (7-17); Calcium 8.4 mg/dL (8.4-10.2); Carbon Dioxide 32 mmol/L (22-30); Chloride 94 mmol/L (98-107); Estimated Glomerular Filt Rate > 60; Glucose 108 mg/dL (65-110); Magnesium 1.6 mg/dL (1.6-2.3); Potassium 3.3 mmol/L (3.4-5.0); Sodium 129 mmol/L (137-145)
--- NOTE | 2024-12-30 11:30 | PCNFU ---
Nutrition Follow-Up Complete: Inadequate energy intake related to altered GI function as evidenced by need for full TPN - Resolved Meet estimated nutrition needs _ slow progress with PO intake, continue same goal Goal: Pt current nutrition is Regular diet. Ensure Plus HP TID (350 kcal, 20 g protein). Nutrition recommendation: No new recommendations. Continue current nutrition care plan and orders. Agree with orders Last recorded weight is 70.1 kg. Bowel Motility: +3 BMs 12/29 Labs Reviewed: Hgb 7.7, Hct 24.4, Alb 2.1, Na 129, K+ 3.3, Cre 0.5 Meds Noted: Zofran, protonix, lovenox, novolog Skin: Surgical to abdomen. Wound vac is off. Additional Notes: Intakes remain poor. 5-50% last 48 hours. 15% breakfast today. Supplements are on. Agree with current orders. Monitoring TPN tolerance, labs, weights, GI function, diet advancement, plan of care Follow up Monday/Monday.
--- NOTE | 2024-12-30 12:05 | WPDINFPN2 ---
Progress Note: A&P Assessment and Plan (1) Intra-abdominal abscess post-procedure: Code(s): T81.43XA - Infection following a procedure, organ and space surgical site, initial encounter; K65.1 - Peritoneal abscess Status: Acute Assessment and Plan: As below Plan Assessment and plan (1) Intra-abdominal abscess post-procedure: Code(s): T81.43XA - Infection following a procedure, organ and space surgical site, initial encounter; K65.1 - Peritoneal abscess Status: Acute Assessment and Plan: -Abscess secondary to ileocolic anastomotic leak -Management as per surgical service - currently receiving Zosyn and fluconazole through 01/01/2025. (2) Ileocolic anastomotic leak: Code(s): K91.89 - Other postprocedural complications and disorders of digestive system Status: Acute Assessment and Plan: -Management as per surgical service (3) History of partial colectomy: Code(s): Z90.49 - Acquired absence of other specified parts of digestive tract Status: Resolved (4) Adenocarcinoma of colon: Code(s): C18.9 - Malignant neoplasm of colon, unspecified Status: Acute Assessment and Plan: -Management as per primary service (5) Cancer of right colon: Onset Date: ~10/2024 Code(s): C18.2 - Malignant neoplasm of ascending colon Status: Acute Assessment and Plan: -Management as per primary service (6) C. difficile diarrhea: Onset Date: ~04/01/24 Code(s): A04.72 - Enterocolitis due to Clostridium difficile, not specified as recurrent Status: Inactive Assessment and Plan: -Patient has history of C.difficile infection starting in March 2024 -Has new diarrhea as of 12/12/24--now resolved -enteral vancomycin administered through a mucous fistula Has been discontinued. Plan: - Continue Zosyn plus fluconazole through 01/01/2025.l --no need to transition to ertapenem on discharge as this was going to be discontinued on 01/01/2025 , anyway. d/w nursing staff , surgical service, and pharmacy staff Patient was seen via video telehealth consultation with the assistance of staff. Chart, data, and patient independently reviewed. Patient was located at [facility] while I was located in my [place] office. Received verbal consent from patient. Subjective Date/time seen: 12/30/24 12:05 Interval history: 12/30/2024: Afebrile with chronic low-grade tachycardia. She currently denies diarrhea which is verified by the surgical service. White blood cell count decreased to 15.5. Repeat CT abdomen and pelvis with thickening and infiltrative changes involving the transverse and descending colon suggestive of colitis. There is a drainage catheter entering the left abdomen and terminating in the right pericolic gutter. there is small amount of free fluid throughout the abdomen. There are no bowel obstruction. Decrease in intra-abdominal free fluid. Review of Systems Review of Systems: All systems reviewed & are unremarkable except as noted in HPI and below Exam Narrative: on room air, non-toxic abd: +ostomy, midline wound vac; drain with serous fluid. No diarrhea. Objective Data Vital Signs Vital Signs: Vital Signs - 24 hr 12/29/24 14:00 12/29/24 16:00 12/29/24 20:00 Temperature 98.4 F Pulse Rate 112 H 104 H 106 H Respiratory Rate 20 Blood Pressure 141/82 H Pulse Oximetry 97 Oxygen Delivery 12/29/24 22:00 12/30/24 00:00 12/30/24 04:00 Temperature 97 F L Pulse Rate 111 H 103 H 96 Respiratory Rate 20 Blood Pressure 148/91 H Pulse Oximetry 97 Oxygen Delivery 12/30/24 04:45 12/30/24 10:41 Temperature 97.9 F Pulse Rate 104 H Respiratory Rate 19 Blood Pressure 140/87 Pulse Oximetry 95 94 Oxygen Delivery Room Air Intake/Output Intake/Output: Intake & Output 12/27/24 12/28/24 12/29/24 12/30/24 23:59 23:59 23:59 23:59 Intake Total 4424 2910 1950 590 Output Total 3075 1950 565 Balance 1133 590 9589 590 Meds/Results Medications: Active Medications Generic Name Dose Route Start Last Admin Trade Name Freq PRN Reason Stop Dose Admin Acetaminophen 650 mg 12/18/24 15:40 12/27/24 21:56 Acetaminophen 325 Mg Tablet PO 650 mg Q4H PRN Administration Mild Pain (1-3) or Fever Hydrocodone Bitart/Acetaminophen 1 tab 12/27/24 18:51 12/29/24 17:00 Hydrocodone/Acetaminophen (*Crx) 10-325 Mg Tablet PO 1 tab Q6H PRN Administration Pain Rated 7-10 Hydrocodone Bitart/Acetaminophen 1 tab 12/27/24 18:51 12/30/24 09:57 Hydrocodone/Acetaminophen (*Crx) 5-325 Mg Tablet PO 1 tab Q4H PRN Administration Pain Rated 4-6 Alteplase, Recombinant 2 mg 12/27/24 10:16 12/27/24 11:57 Alteplase 2 Mg Vial (Cathflo) IV PUSH 2 mg ONCE PRN Administration Line Occlusion Lidocaine HCl 30 ml/ Al Hydrox 0 ml 12/25/24 13:00 12/30/24 09:58 /Mg Hydrox/Simethicone 30 ml/ PO 5 ml Diphenhydramine HCl 75 mg Q4HWA CEE Administration Dextrose 12.5 gm 12/14/24 10:29 Dextrose 50% 25 Gm/50 Ml Syringe IV PUSH PRN PRN Hypoglycemia Protocol Enoxaparin Sodium 40 mg 12/07/24 09:00 12/27/24 11:53 Enoxaparin 40 Mg/0.4 Ml Syringe SUB-Q Not Given On Hold: 12/28/24 05:46 DAILY CEE Glucose 15 gm 12/14/24 10:29 Glucose Oral Gel 15 Gm Of Glucse In 37.5 Gm Tube PO PRN PRN Hypoglycemia Protocol Dextrose 1,000 mls @ 100 mls/hr 12/14/24 10:29 Dextrose 5% 1,000 Ml IVPB PRN PRN Hypoglycemia Protocol Piperacillin Sod/Tazobactam 50 mls @ 100 mls/hr 12/17/24 14:30 12/30/24 05:40 Sod 3.375 gm/ Sodium Chloride IVPB 01/01/25 23:59 Infused Q6HR CEE Infusion Fluconazole 400 mg in 200 mls @ 100 mls/hr 12/19/24 13:30 12/30/24 09:59 Diflucan 400 Mg/Nacl 200 Ml IVPB 01/01/25 10:59 100 mls/hr DAILY CEE Administration Insulin Aspart 3 - 6 units 12/22/24 08:00 12/30/24 08:34 Insulin Aspart (*Bkc) 100 Units/Ml SUB-Q Not Given TIDWM CEE Protocol Lorazepam 1 mg 12/22/24 14:58 12/30/24 09:57 Lorazepam (*Crx) 1 Mg Tablet PO 1 mg BID PRN Administration Anxiety Losartan Potassium 25 mg 12/28/24 13:55 12/30/24 09:57 Losartan Potassium 25 Mg Tablet PO 25 mg DAILY CEE Administration Naloxone HCl 0.1 mg 12/06/24 17:15 Naloxone Hcl 0.4 Mg/Ml Vial IV PUSH Q2M PRN Opiate Reversal Ondansetron HCl 4 mg 12/03/24 17:26 12/09/24 05:23 Ondansetron Inj 4 Mg/2 Ml Vial IV PUSH 4 mg Q4H PRN Administration Nausea And Vomiting Oxymetazoline HCl 1 spray 12/29/24 10:31 Oxymetazoline Hcl 0.05% Mahendra 15 Ml Btl (*Bkc) NASAL Q12HR PRN Congestion Pantoprazole Sodium 40 mg 12/27/24 21:00 12/30/24 09:58 Pantoprazole Sodium Iv 40 Mg Vial IV PUSH 40 mg Q12HR CEE Administration Phenol 1 spray 12/07/24 10:05 Phenol/Sod Pheno [place] (*Bkc) MUCOUS MEM Q2H PRN Sore Throat Sodium Chloride 10 ml 12/07/24 14:00 12/30/24 05:10 Central Line Flush IV PUSH 10 ml Q8HR CEE Administration Sodium Chloride 20 ml 12/07/24 09:45 12/21/24 05:30 Central Line Flush IV PUSH 20 ml PRN PRN Administration after blood draws Sodium Chloride 1 applic 12/29/24 10:52 12/30/24 05:16 Sodium Chloride Nasal Gel 14.1 Gm NASAL 1 applic PRN PRN Administration nose bleed Radiology Results: ITS Impressions Renal Ultrasound 12/04/24 21:30 Impression: 1: Unremarkable renal ultrasound. No stones, masses or hydronephrosis. Pulmonary Perfusion Imaging 12/05/24 18:55 IMPRESSION: 1: Normal perfusion scan. Probable shallow lung volumes. Recommend correlation with chest x-ray.. Chest/Abdomen/Pelvis CT 12/10/24 10:51 IMPRESSION: 1. Small amount of likely residual free intraperineal gas and fluid post likely revision of an ileocolic anastomosis and placement of a surgical drain. No evident organized abscess or extraluminal contrast to suggest residual anastomotic leak. 2. Wall thickening along the sigmoid colon consistent with colitis infectious or inflammatory in etiology. Differential would also include residual reactive edema related to the prior anastomotic leak and recent surgery. 3. Volume loss in both lungs with atelectasis at the bilateral lung bases including complete collapse of the right middle lobe. Superimposed pneumonia not excludable but suspicion is low. 4. Chronic mild dilation the common bile duct without evident obstructing stone or mass, likely related to prior cholecystectomy but would correlate with liver function tests. CT Brain Angiography 12/13/24 11:34 IMPRESSION: 1. Normal aging brain. No acute intracranial process or abnormally enhancing brain lesions. 2. Unremarkable cerebral CT angiogram with no hemodynamic significant stenosis, thrombosis or aneurysm. Chest CTA 12/13/24 12:45 IMPRESSION: 1. No pulmonary embolus. Sensitivity is moderately decreased by motion artifact. 2. Small lung volumes with relative elevation of right hemidiaphragm. Moderate atelectasis in the inferior lungs 3. Ascites. Abdomen/Pelvis CT 12/26/24 17:56 IMPRESSION: Decrease in intra-abdominal free fluid. All CT scans at this facility are performed using low dose modulation techniques as appropriate to perform exam including the following: automated exposure control; use of iterative reconstruction technique; adjustment of the mA and/or kV according to patient size (this includes techniques or standardized protocols for targeted exams where dose is matched to indication/reason for exam). Chest X-Ray 12/28/24 07:01 IMPRESSION: 1. No change. 2. Bibasilar atelectasis. Labs Labs: Laboratory Results - last 24 hr 12/29/24 12/29/24 12/29/24 12:21 15:44 20:40 WBC RBC Hgb Hct MCV MCH MCHC RDW Plt Count MPV Immature Gran % (Auto) Neut % (Auto) Lymph % (Auto) Moody % (Auto) Eos % (Auto) Baso % (Auto) Lymph # (Auto) Moody # (Auto) Eos # (Auto) Baso # (Auto) Abs Immat Gran (auto) Absolute Neuts (auto) Absolute Nucleated RBC Nucleated RBC % Sodium Potassium Chloride Carbon Dioxide Anion Gap BUN Creatinine Estim Creat Clear Calc Estimated GFR Glucose POC Capillary Glucose 120 H 143 H 154 H Calcium Phosphorus Magnesium 12/30/24 12/30/24 12/30/24 08:02 10:31 11:40 WBC 15.5 H RBC 2.83 L Hgb 7.7 L Hct 24.4 L MCV 86.2 MCH 27.2 MCHC 31.6 L RDW 18.3 H Plt Count 494 H MPV 8.6 Immature Gran % (Auto) 1.2 H Neut % (Auto) 83.8 H Lymph % (Auto) 8.6 L Moody % (Auto) 5.0 Eos % (Auto) 0.8 Baso % (Auto) 0.6 Lymph # (Auto) 1.33 Moody # (Auto) 0.8 H Eos # (Auto) 0.1 Baso # (Auto) 0.1 Abs Immat Gran (auto) 0.19 H Absolute Neuts (auto) 13.0 H Absolute Nucleated RBC 0.020 H Nucleated RBC % 0.1 Sodium 129 L Potassium 3.3 L Chloride 94 L Carbon Dioxide 32 H Anion Gap 3 L BUN 14 Creatinine 0.50 L Estim Creat Clear Calc Not Reportable Estimated GFR > 60 Glucose 108 POC Capillary Glucose 99 135 H Calcium 8.4 Phosphorus 3.1 Magnesium 1.6
--- NOTE | 2024-12-30 16:03 | P.PNIM_ITS ---
Progress Note: A&P Assessment and Plan (1) History of partial colectomy: Code(s): Z90.49 - Acquired absence of other specified parts of digestive tract Status: Resolved (2) Ileocolic anastomotic leak: Code(s): K91.89 - Other postprocedural complications and disorders of digestive system Status: Acute (3) Acute blood loss anemia: Code(s): D62 - Acute posthemorrhagic anemia Status: Acute (4) Acute hypoxemic respiratory failure: Code(s): J96.01 - Acute respiratory failure with hypoxia Status: Acute Plan 64 y/o F with PMH of cancer the right colon S/P right colectomy, thrombosis of the mesenteric vein, WILL, diverticulitis, rhabdomyolysis (2021), hyperlipidemia and hypertension presented here on 12/03 with difficulty urinating. Previously underwent a hand assisted laparoscopic right colectomy with extensive adhesiolysis, mobilization of hepatic flexure by Dr. May on 11/27/24. Discharge on postop day 2 as she was doing well. At home she has had worsening abdominal pain, constipation. On readmission she has had a lengthy hospital course, on 12/06 undergoing a exploratory laparotomy with ileocolic resection with [id number] ileo colic anastomosis drainage of intra-abdominal abscess with placement of wound VAC. Due to bile in JUHI drains she had a repeat abdomen pelvis CT with water-soluble oral contrast demonstrating right hemicolectomy with anastomotic leak. On 12/13/2024 she underwent re-exploration with ileocolic resection with end ileostomy and mucous fistula creation and placement of wound VAC within subcutaneous space measuring 12 cm x 3 cm. General surgery managing wounds, wound VAC, JUHI drain. Currently on TPN. Wound care per surgery and unit protocol and wound care. Next wound VAC Saturday 12/23. Malnutrition: s/p NG tube and now tolerating diet Sepsis: Monitor leukocytosis, tachypnea, tachycardia. Overall trend of leukocytosis has peaked at 19.9 on 12/08/2024, currently improving to 12. Continue to monitor along with procalcitonin. Infectious Disease consulted, continue zosyn, fluconazole, vancomycin p.o. 12/04/2024 blood culture x2 negative, final. vancomycin oral needs to transition to administration through mucous fistula- difficulty administering, surgery to be notified C diff colitis: Appreciate ID recommendations, p.o. vancomycin total 3 weeks via ostomy has been unable to be administered since 12/22 due to difficulty with stoma. Patient failed stoma Vancomycin administration and failed Vanc enema PO Vanc discontinued per ID, ID and Gen surgery on board Stool is forming now Patient comfortable at bedside Post hemorrhagic anemia: Monitor daily hemoglobin, stable. Restart Lovenox 40 mg subQ q.day for DVT prophylaxis when okay by surgery. Hypocalcemia: After correction for hypoalbuminemia, 8.1. Continue to monitor. Elevated blood glucose readings: HbA1c 6.0%. Accu-Cheks q.6 hours with hypoglycemia protocol and low-dose insulin sliding scale. Acute hypoxic respiratory failure: Patient weaned to room air on 12/15/2024. Due to atelectasis, CTA chest did not demonstrate pneumonia/PE. Continue incentive spirometer and EzPAP q.i.d.. Mobilize as soon as possible. Acute kidney injury and urinary retention: Could be due to hypovolemia, anemia, urinary retention, sepsis, contrast exposure. DARRYL has resolved. Nephrology signed off. Limon catheter remains due to surgery and immobility. Hypertension: Resume Losartan and adjust with clinical course Anemia hemoglobin down to 6.6 12/18/2024 1 unit PRBC. Now stable at 8.8. Intraabdominal abscess Continue Zosyn, Fluconazole and Vanc until 01/01 per ID Melena stool from Epistaxis and FOBT positive Hb stable 7.7, s/p 2 units rPBC today See management below Epistaxis Likely cause of GI bleed S/p nasal packing INR 1.1, PTT 42.1 Lovenox on hold, IVF ENT input appreciated patient will follow up with ENT outpatient DVT prophylaxis: SCDs. Lovenox 40 mg daily currently on hold due to Epistaxis Nutrition: regular Prophylaxis: Protonix 40 mg IV q.a.m. for ulcer prophylaxis. PT/OT following Right upper extremity PICC line Deconditioning, PT/OT as appropriate per General surgery team. EzPAP, incentive spirometer. Patient wishes to be full code. Prior to admission she lives at home and was independent. Awaiting placement otherwise stable for discharge from medical standpoint Subjective Date/time seen: 12/30/24 16:03 Interval history: Comfortable at bedside S/p nasal packing by ENT yesterday and melena stool is clearing today, Hb stable 7.7 Review of Systems Review of Systems: All systems reviewed & are unremarkable except as noted in HPI and below (Subjective) Exam Narrative: GENERAL: Alert and oriented x3, not in acute distress HEAD: Normal with no signs of head trauma. EYES: EOMI, conjunctiva normal ENT: Hearing grossly intact LUNGS: Nonlabored breathing. No adventitious sounds HEART: [Regular rate and rhythm], no murmurs ABD: [Soft], mildly distended, mild tenderness, surgical incision with wound VAC, clean dry and intact. Colostomy and RLQ stoma noted. EXT: Normal range of motion SKIN: [No rashes or lesions.] NEURO: [Alert and oriented x 3. No gross focal sensory or strength deficits.] PSYCH: Normal affect Const: General: comfortable and no acute distress Other: A&O x3 HENMT: Face/Nose/Sinus: Normal nares present Mouth: Yes moist mucous membranes and Yes dry mucous membranes Eyes: General: appearance normal, both eyes and all related structures Sclera: sclerae normal Pupils: Equal, round and reactive pupils present EOM: EOMs intact bilaterally Neck: Neck: supple Resp: Effort & Inspection: normal respiratory effort Auscultation: clear to auscultation bilaterally and crackles Other: Slowly decreased breath sounds at bilateral bases, no crackles/wheezing/rhonchi Cardio: Rate: regular rate and tachycardic Rhythm: regular rhythm Heart sounds: no gallops and no murmurs Other: S1-S2 present without murmur, rub, ectopy GI: Inspection: non-distended Other: Right-sided mucous fistula with serosanguineous drainage, end ileostomy with light brown serous drainage, JUHI drain with serosanguineous drainage, wound VAC intact. Urinary Catheter: Urinary Catheter: patent and draining Skin: General skin exam: normal color and no rashes or lesions noted Other: Postsurgical incision to abdomen is well approximated, sutures in place, no signs of infection Neuro: Cranial nerves: Yes Equal, round and reactive pupils present Speech: normal speech Motor exam (neuro): 5/5 motor strength present throughout Sensory Exam: normal sensation Other: Generalized weakness Extrem: General: normal to inspection and edema Other: Trace edema bilateral lower extremities Psych: Mental Status: mental status grossly normal Affect: normal affect Other: Good insight and judgment, pleasant Objective Data Vital Signs Vital Signs: Vital Signs - 24 hr 12/29/24 20:00 12/29/24 22:00 12/30/24 00:00 Temperature 97 F L Pulse Rate 106 H 111 H 103 H Respiratory Rate 20 Blood Pressure 148/91 H Pulse Oximetry 97 Oxygen Delivery 12/30/24 04:00 12/30/24 04:45 12/30/24 09:55 Temperature 97.9 F Pulse Rate 96 104 H Respiratory Rate 19 Blood Pressure 140/87 Pulse Oximetry 95 94 Oxygen Delivery Room Air 12/30/24 09:55 12/30/24 10:41 12/30/24 14:00 Temperature 98.2 F Pulse Rate 104 H 114 H Respiratory Rate 17 Blood Pressure 143/97 H Pulse Oximetry 94 97 Oxygen Delivery Room Air Intake/Output Intake/Output: Intake & Output 12/27/24 12/28/24 12/29/24 12/30/24 23:59 23:59 23:59 23:59 Intake Total 4424 2910 1950 880 Output Total 3075 1950 565 150 Balance 8252 096 5233 730 Meds/Results Medications: Active Medications Generic Name Dose Route Start Last Admin Trade Name Freq PRN Reason Stop Dose Admin Acetaminophen 650 mg 12/18/24 15:40 12/27/24 21:56 Acetaminophen 325 Mg Tablet PO 650 mg Q4H PRN Administration Mild Pain (1-3) or Fever Hydrocodone Bitart/Acetaminophen 1 tab 12/27/24 18:51 12/29/24 17:00 Hydrocodone/Acetaminophen (*Crx) 10-325 Mg Tablet PO 1 tab Q6H PRN Administration Pain Rated 7-10 Hydrocodone Bitart/Acetaminophen 1 tab 12/27/24 18:51 12/30/24 09:57 Hydrocodone/Acetaminophen (*Crx) 5-325 Mg Tablet PO 1 tab Q4H PRN Administration Pain Rated 4-6 Alteplase, Recombinant 2 mg 12/27/24 10:16 12/27/24 11:57 Alteplase 2 Mg Vial (Cathflo) IV PUSH 2 mg ONCE PRN Administration Line Occlusion Lidocaine HCl 30 ml/ Al Hydrox 0 ml 12/25/24 13:00 12/30/24 12:50 /Mg Hydrox/Simethicone 30 ml/ PO 5 ml Diphenhydramine HCl 75 mg Q4HWA CEE Administration Dextrose 12.5 gm 12/14/24 10:29 Dextrose 50% 25 Gm/50 Ml Syringe IV PUSH PRN PRN Hypoglycemia Protocol Enoxaparin Sodium 40 mg 12/07/24 09:00 12/27/24 11:53 Enoxaparin 40 Mg/0.4 Ml Syringe SUB-Q Not Given On Hold: 12/28/24 05:46 DAILY CEE Glucose 15 gm 12/14/24 10:29 Glucose Oral Gel 15 Gm Of Glucse In 37.5 Gm Tube PO PRN PRN Hypoglycemia Protocol Dextrose 1,000 mls @ 100 mls/hr 12/14/24 10:29 Dextrose 5% 1,000 Ml IVPB PRN PRN Hypoglycemia Protocol Piperacillin Sod/Tazobactam 50 mls @ 100 mls/hr 12/17/24 14:30 12/30/24 13:20 Sod 3.375 gm/ Sodium Chloride IVPB 01/01/25 23:59 Infused Q6HR CEE Infusion Fluconazole 400 mg in 200 mls @ 100 mls/hr 12/19/24 13:30 12/30/24 09:59 Diflucan 400 Mg/Nacl 200 Ml IVPB 01/01/25 10:59 100 mls/hr DAILY CEE Administration Insulin Aspart 3 - 6 units 12/22/24 08:00 12/30/24 12:12 Insulin Aspart (*Bkc) 100 Units/Ml SUB-Q Not Given TIDWM CEE Protocol Lorazepam 1 mg 12/22/24 14:58 12/30/24 09:57 Lorazepam (*Crx) 1 Mg Tablet PO 1 mg BID PRN Administration Anxiety Losartan Potassium 25 mg 12/28/24 13:55 12/30/24 09:57 Losartan Potassium 25 Mg Tablet PO 25 mg DAILY CEE Administration Naloxone HCl 0.1 mg 12/06/24 17:15 Naloxone Hcl 0.4 Mg/Ml Vial IV PUSH Q2M PRN Opiate Reversal Ondansetron HCl 4 mg 12/03/24 17:26 12/09/24 05:23 Ondansetron Inj 4 Mg/2 Ml Vial IV PUSH 4 mg Q4H PRN Administration Nausea And Vomiting Oxymetazoline HCl 1 spray 12/29/24 10:31 Oxymetazoline Hcl 0.05% Ma[place] 15 Ml Btl (*Bkc) NASAL Q12HR PRN Congestion Pantoprazole Sodium 40 mg 12/27/24 21:00 12/30/24 09:58 Pantoprazole Sodium Iv 40 Mg Vial IV PUSH 40 mg Q12HR CEE Administration Phenol 1 spray 12/07/24 10:05 Phenol/Sod Pheno [place] (*Bkc) MUCOUS MEM Q2H PRN Sore Throat Sodium Chloride 10 ml 12/07/24 14:00 12/30/24 12:55 Central Line Flush IV PUSH 10 ml Q8HR CEE Administration Sodium Chloride 20 ml 12/07/24 09:45 12/21/24 05:30 Central Line Flush IV PUSH 20 ml PRN PRN Administration after blood draws Sodium Chloride 1 applic 12/29/24 10:52 12/30/24 05:16 Sodium Chloride Nasal Gel 14.1 Gm NASAL 1 applic PRN PRN Administration nose bleed Radiology Results: ITS Impressions Renal Ultrasound 12/04/24 21:30 Impression: 1: Unremarkable renal ultrasound. No stones, masses or hydronephrosis. Pulmonary Perfusion Imaging 12/05/24 18:55 IMPRESSION: 1: Normal perfusion scan. Probable shallow lung volumes. Recommend correlation with chest x-ray.. Chest/Abdomen/Pelvis CT 12/10/24 10:51 IMPRESSION: 1. Small amount of likely residual free intraperineal gas and fluid post likely revision of an ileocolic anastomosis and placement of a surgical drain. No evident organized abscess or extraluminal contrast to suggest residual anastomotic leak. 2. Wall thickening along the sigmoid colon consistent with colitis infectious or inflammatory in etiology. Differential would also include residual reactive edema related to the prior anastomotic leak and recent surgery. 3. Volume loss in both lungs with atelectasis at the bilateral lung bases including complete collapse of the right middle lobe. Superimposed pneumonia not excludable but suspicion is low. 4. Chronic mild dilation the common bile duct without evident obstructing stone or mass, likely related to prior cholecystectomy but would correlate with liver function tests. CT Brain Angiography 12/13/24 11:34 IMPRESSION: 1. Normal aging brain. No acute intracranial process or abnormally enhancing brain lesions. 2. Unremarkable cerebral CT angiogram with no hemodynamic significant stenosis, thrombosis or aneurysm. Chest CTA 12/13/24 12:45 IMPRESSION: 1. No pulmonary embolus. Sensitivity is moderately decreased by motion artifact. 2. Small lung volumes with relative elevation of right hemidiaphragm. Moderate atelectasis in the inferior lungs 3. Ascites. Abdomen/Pelvis CT 12/26/24 17:56 IMPRESSION: Decrease in intra-abdominal free fluid. All CT scans at this facility are performed using low dose modulation techniques as appropriate to perform exam including the following: automated exposure control; use of iterative reconstruction technique; adjustment of the mA and/or kV according to patient size (this includes techniques or standardized protocols for targeted exams where dose is matched to indication/reason for exam). Chest X-Ray 12/28/24 07:01 IMPRESSION: 1. No change. 2. Bibasilar atelectasis. Labs Labs: Laboratory Results - last 24 hr 12/29/24 12/30/24 12/30/24 20:40 08:02 10:31 WBC 15.5 H RBC 2.83 L Hgb 7.7 L Hct 24.4 L MCV 86.2 MCH 27.2 MCHC 31.6 L RDW 18.3 H Plt Count 494 H MPV 8.6 Immature Gran % (Auto) 1.2 H Neut % (Auto) 83.8 H Lymph % (Auto) 8.6 L [place] % (Auto) 5.0 Eos % (Auto) 0.8 Baso % (Auto) 0.6 Lymph # (Auto) 1.33 [place] # (Auto) 0.8 H Eos # (Auto) 0.1 Baso # (Auto) 0.1 Abs Immat Gran (auto) 0.19 H Absolute Neuts (auto) 13.0 H Absolute Nucleated RBC 0.020 H Nucleated RBC % 0.1 Sodium 129 L Potassium 3.3 L Chloride 94 L Carbon Dioxide 32 H Anion Gap 3 L BUN 14 Creatinine 0.50 L Estim Creat Clear Calc Not Reportable Estimated GFR > 60 Glucose 108 POC Capillary Glucose 154 H 99 Calcium 8.4 Phosphorus 3.1 Magnesium 1.6 12/30/24 11:40 WBC RBC Hgb Hct MCV MCH MCHC RDW Plt Count MPV Immature Gran % (Auto) Neut % (Auto) Lymph % (Auto) [place] % (Auto) Eos % (Auto) Baso % (Auto) Lymph # (Auto) [place] # (Auto) Eos # (Auto) Baso # (Auto) Abs Immat Gran (auto) Absolute Neuts (auto) Absolute Nucleated RBC Nucleated RBC % Sodium Potassium Chloride Carbon Dioxide Anion Gap BUN Creatinine Estim Creat Clear Calc Estimated GFR Glucose POC Capillary Glucose 135 H Calcium Phosphorus Magnesium Quality VTE Prophylaxis VTE prophylaxis: mechanical ordered
[2024-12-30] MEDS: HYDROcodone/acetaminophen (*CRX) 10-325 MG TABLET 1 TAB PO (18:56)
[2024-12-30] MEDS: NYSTATIN 100,000 UNITS/ML SUSP 5 ML ORAL.SUSP PO (22:04)
[2024-12-31] VITALS (10 sets, daily range): BP systolic 135–143; BP diastolic 89–91; PULSE 94–108; RESP 16–18; TEMP 36.3–36.6; O2SAT 96–98
[2024-12-31] MEDS: HYDROcodone/acetaminophen (*CRX) 10-325 MG TABLET 1 TAB PO ×2 (01:51→13:26)
[2024-12-31] MEDS: PIPERACILLIN/TAZOBACTAM SOD 3.375 GM in SODIUM CHLORIDE 0.9% IV 50 ML 100 ML IVPB ×3 (05:27→17:43)
[2024-12-31] MEDS: CENTRAL LINE FLUSH 10 ML IV PUSH ×3 (05:28→21:49)
[2024-12-31] MEDS: FLUCONAZOLE 400 MG/NACL 200 ML 400 MG/200 ML BAG 100 MG IVPB (09:50)
[2024-12-31] MEDS: NYSTATIN 100,000 UNITS/ML SUSP 5 ML ORAL.SUSP PO ×4 (09:50→21:48)
[2024-12-31] MEDS: PANTOPRAZOLE SODIUM IV 40 MG VIAL IV PUSH ×2 (09:50→21:49)
[2024-12-31] MEDS: LOSARTAN POTASSIUM 25 MG TABLET PO (09:50)
--- NOTE | 2024-12-31 10:27 | P.PNGS_ITS ---
Progress Note: A&P Assessment and Plan (1) Ileocolic anastomotic leak: Code(s): K91.89 - Other postprocedural complications and disorders of digestive system Status: Acute Assessment and Plan: * Tolerating a diet and ostomy is functioning well * Continue daily packing dressing changes to RLQ wound * Will plan to remove the JUHI drain prior to discharge * Continue abx per ID * Continue wound VAC therapy, plan to change the dressing tomorrow if unable to discharge today. * Surgically stable for discharge, CC is working on d/c planning possibly to [facility]. (2) Upper GI bleed: Code(s): K92.2 - Gastrointestinal hemorrhage, unspecified Status: Acute Assessment and Plan: * No further epistaxis follow ENT placed surgicel to left nares. Lovenox still on hold. Hgb stable, 7.7 today. (3) Thrush: Code(s): B37.0 - Candidal stomatitis Status: Acute Assessment and Plan: * Will start nystatin suspension, swish and swallow. Plan I have discussed the patient's case and plan of care with Dr. Burch. Subjective Subjective Date/Time Seen: 12/31/24 10:27 Patient reports: no new complaints and afebrile Interval history: No acute changes overnight. No complaints. Wound VAC changed yesterday. Wound VAC with serous drainage in canister. She is tolerating a diet. Exam Const: General: comfortable and no acute distress HENMT: Teeth and gingiva: other (tongue with plaque-like white patches c/w thrush) GI: Inspection: non-distended GI Palp: Yes Soft to palpation, Yes Tenderness to palpation present (GI) (only tender near midline abdominal wound) and No Guarding due to palpation present (GI) Auscultation: normal bowel sounds Other: Wound VAC dressing dry and intact with serous drainage. Ileostomy functioning well. Mucous fistula appears viable and pink. RLQ wound with packing in place, no surrounding erythema, no purulent drainage. JUHI drain with scant serous drainage. Objective Data Vital Signs Vital Signs: Vital Signs - 24 hr 12/30/24 10:41 12/30/24 14:00 12/30/24 16:00 Temperature 98.2 F Pulse Rate 114 H 100 Respiratory Rate 17 Blood Pressure 143/97 H Pulse Oximetry 94 97 Oxygen Delivery Room Air 12/30/24 16:00 12/30/24 20:00 12/30/24 22:00 Temperature 97.8 F Pulse Rate 105 H 105 H Respiratory Rate 16 Blood Pressure 142/83 H Pulse Oximetry 96 Oxygen Delivery 12/31/24 00:00 12/31/24 03:48 12/31/24 04:00 Temperature 97.3 F L Pulse Rate 97 97 94 Respiratory Rate 16 Blood Pressure 135/89 Pulse Oximetry 96 Oxygen Delivery Intake/Output Intake/Output: Intake & Output 12/28/24 12/29/24 12/30/24 12/31/24 23:59 23:59 23:59 23:59 Intake Total 2910 1950 1300 890 Output Total 1950 565 150 875 Balance 960 1385 1150 15 Meds/Results Medications: Active Medications Generic Name Dose Route Start Last Admin Trade Name Freq PRN Reason Stop Dose Admin Acetaminophen 650 mg 12/18/24 15:40 12/27/24 21:56 Acetaminophen 325 Mg Tablet PO 650 mg Q4H PRN Administration Mild Pain (1-3) or Fever Hydrocodone Bitart/Acetaminophen 1 tab 12/27/24 18:51 12/31/24 01:51 Hydrocodone/Acetaminophen (*Crx) 10-325 Mg Tablet PO 1 tab Q6H PRN Administration Pain Rated 7-10 Hydrocodone Bitart/Acetaminophen 1 tab 12/27/24 18:51 12/30/24 09:57 Hydrocodone/Acetaminophen (*Crx) 5-325 Mg Tablet PO 1 tab Q4H PRN Administration Pain Rated 4-6 Alteplase, Recombinant 2 mg 12/27/24 10:16 12/27/24 11:57 Alteplase 2 Mg Vial (Cathflo) IV PUSH 2 mg ONCE PRN Administration Line Occlusion Dextrose 12.5 gm 12/14/24 10:29 Dextrose 50% 25 Gm/50 Ml Syringe IV PUSH PRN PRN Hypoglycemia Protocol Enoxaparin Sodium 40 mg 12/07/24 09:00 12/27/24 11:53 Enoxaparin 40 Mg/0.4 Ml Syringe SUB-Q Not Given On Hold: 12/28/24 05:46 DAILY CEE Glucose 15 gm 12/14/24 10:29 Glucose Oral Gel 15 Gm Of Glucse In 37.5 Gm Tube PO PRN PRN Hypoglycemia Protocol Dextrose 1,000 mls @ 100 mls/hr 12/14/24 10:29 Dextrose 5% 1,000 Ml IVPB PRN PRN Hypoglycemia Protocol Piperacillin Sod/Tazobactam 50 mls @ 100 mls/hr 12/17/24 14:30 12/31/24 05:57 Sod 3.375 gm/ Sodium Chloride IVPB 01/01/25 23:59 Infused Q6HR CEE Infusion Fluconazole 400 mg in 200 mls @ 100 mls/hr 12/19/24 13:30 12/31/24 09:50 Diflucan 400 Mg/Nacl 200 Ml IVPB 01/01/25 10:59 100 mls/hr DAILY CEE Administration Insulin Aspart 3 - 6 units 12/22/24 08:00 12/31/24 08:23 Insulin Aspart (*Bkc) 100 Units/Ml SUB-Q Not Given TIDWM CEE Protocol Lorazepam 1 mg 12/22/24 14:58 12/30/24 09:57 Lorazepam (*Crx) 1 Mg Tablet PO 1 mg BID PRN Administration Anxiety Losartan Potassium 25 mg 12/28/24 13:55 12/31/24 09:50 Losartan Potassium 25 Mg Tablet PO 25 mg DAILY CEE Administration Naloxone HCl 0.1 mg 12/06/24 17:15 Naloxone Hcl 0.4 Mg/Ml Vial IV PUSH Q2M PRN Opiate Reversal Nystatin 5 ml 12/30/24 21:00 12/31/24 09:50 Nystatin 100,000 Units/Ml Susp 5 Ml Oral.Susp PO 5 ml QID CEE Administration Ondansetron HCl 4 mg 12/03/24 17:26 12/09/24 05:23 Ondansetron Inj 4 Mg/2 Ml Vial IV PUSH 4 mg Q4H PRN Administration Nausea And Vomiting Oxymetazoline HCl 1 spray 12/29/24 10:31 Oxymetazoline Hcl 0.05% Mahendra 15 Ml Btl (*Bkc) NASAL Q12HR PRN Congestion Pantoprazole Sodium 40 mg 12/27/24 21:00 12/31/24 09:50 Pantoprazole Sodium Iv 40 Mg Vial IV PUSH 40 mg Q12HR CEE Administration Sodium Chloride 10 ml 12/07/24 14:00 12/31/24 05:28 Central Line Flush IV PUSH 10 ml Q8HR CEE Administration Sodium Chloride 20 ml 12/07/24 09:45 12/21/24 05:30 Central Line Flush IV PUSH 20 ml PRN PRN Administration after blood draws Sodium Chloride 1 applic 12/29/24 10:52 12/30/24 05:16 Sodium Chloride Nasal Gel 14.1 Gm NASAL 1 applic PRN PRN Administration nose bleed Radiology Results: ITS Impressions Renal Ultrasound 12/04/24 21:30 Impression: 1: Unremarkable renal ultrasound. No stones, masses or hydronephrosis. Pulmonary Perfusion Imaging 12/05/24 18:55 IMPRESSION: 1: Normal perfusion scan. Probable shallow lung volumes. Recommend correlation with chest x-ray.. Chest/Abdomen/Pelvis CT 12/10/24 10:51 IMPRESSION: 1. Small amount of likely residual free intraperineal gas and fluid post likely revision of an ileocolic anastomosis and placement of a surgical drain. No evident organized abscess or extraluminal contrast to suggest residual anastomotic leak. 2. Wall thickening along the sigmoid colon consistent with colitis infectious or inflammatory in etiology. Differential would also include residual reactive edema related to the prior anastomotic leak and recent surgery. 3. Volume loss in both lungs with atelectasis at the bilateral lung bases including complete collapse of the right middle lobe. Superimposed pneumonia not excludable but suspicion is low. 4. Chronic mild dilation the common bile duct without evident obstructing stone or mass, likely related to prior cholecystectomy but would correlate with liver function tests. CT Brain Angiography 12/13/24 11:34 IMPRESSION: 1. Normal aging brain. No acute intracranial process or abnormally enhancing brain lesions. 2. Unremarkable cerebral CT angiogram with no hemodynamic significant stenosis, thrombosis or aneurysm. Chest CTA 12/13/24 12:45 IMPRESSION: 1. No pulmonary embolus. Sensitivity is moderately decreased by motion artifact. 2. Small lung volumes with relative elevation of right hemidiaphragm. Moderate atelectasis in the inferior lungs 3. Ascites. Abdomen/Pelvis CT 12/26/24 17:56 IMPRESSION: Decrease in intra-abdominal free fluid. All CT scans at this facility are performed using low dose modulation techniques as appropriate to perform exam including the following: automated exposure control; use of iterative reconstruction technique; adjustment of the mA and/or kV according to patient size (this includes techniques or standardized protocols for targeted exams where dose is matched to indication/reason for exam). Chest X-Ray 12/28/24 07:01 IMPRESSION: 1. No change. 2. Bibasilar atelectasis. Labs Labs: Laboratory Results - last 24 hr 12/30/24 12/30/24 12/30/24 10:31 11:40 16:40 WBC 15.5 H RBC 2.83 L Hgb 7.7 L Hct 24.4 L MCV 86.2 MCH 27.2 MCHC 31.6 L RDW 18.3 H Plt Count 494 H MPV 8.6 Immature Gran % (Auto) 1.2 H Neut % (Auto) 83.8 H Lymph % (Auto) 8.6 L [place] % (Auto) 5.0 Eos % (Auto) 0.8 Baso % (Auto) 0.6 Lymph # (Auto) 1.33 [place] # (Auto) 0.8 H Eos # (Auto) 0.1 Baso # (Auto) 0.1 Abs Immat Gran (auto) 0.19 H Absolute Neuts (auto) 13.0 H Absolute Nucleated RBC 0.020 H Nucleated RBC % 0.1 Sodium 129 L Potassium 3.3 L Chloride 94 L Carbon Dioxide 32 H Anion Gap 3 L BUN 14 Creatinine 0.50 L Estim Creat Clear Calc Not Reportable Estimated GFR > 60 Glucose 108 POC Capillary Glucose 135 H 144 H Calcium 8.4 Phosphorus 3.1 Magnesium 1.6 12/30/24 12/31/24 19:47 08:00 WBC RBC Hgb Hct MCV MCH MCHC RDW Plt Count MPV Immature Gran % (Auto) Neut % (Auto) Lymph % (Auto) [place] % (Auto) Eos % (Auto) Baso % (Auto) Lymph # (Auto) [place] # (Auto) Eos # (Auto) Baso # (Auto) Abs Immat Gran (auto) Absolute Neuts (auto) Absolute Nucleated RBC Nucleated RBC % Sodium Potassium Chloride Carbon Dioxide Anion Gap BUN Creatinine Estim Creat Clear Calc Estimated GFR Glucose POC Capillary Glucose 124 H 107 H Calcium Phosphorus Magnesium
--- NOTE | 2024-12-31 11:23 | P.PNGS_ITS ---
Progress Note: A&P Assessment and Plan (1) Ileocolic anastomotic leak: Code(s): K91.89 - Other postprocedural complications and disorders of digestive system Status: Acute Assessment and Plan: * Tolerating a diet and ostomy is functioning well * Continue daily packing dressing changes to RLQ wound * Will plan to remove the JUHI drain prior to discharge * Continue abx per ID * Continue wound VAC therapy. * Surgically stable for discharge, CC is working on d/c planning possibly to [facility]. (2) Upper GI bleed: Code(s): K92.2 - Gastrointestinal hemorrhage, unspecified Status: Acute Assessment and Plan: * No further epistaxis after ENT placed surgicel to left nares. Lovenox still on hold. Hgb stable. (3) Thrush: Code(s): B37.0 - Candidal stomatitis Status: Acute Assessment and Plan: * Will start nystatin suspension, swish and swallow. Plan I have discussed the patient's case and plan of care with Dr. Burch. Subjective Subjective Date/Time Seen: 12/30/24 11:23 Patient reports: no new complaints, tolerating a regular diet and afebrile Interval history: Patient doing well. Continues to work with PT/OT. Awaiting placement. Reportedly, nursing staff had trouble with keeping a good seal on wound vac appliance. A wet to dry dressing was appplied to the midline incision on Monday, 12/29. Exam GI: Inspection: non-distended GI Palp: Yes Soft to palpation, No Tenderness to palpation present (GI), No Guarding due to palpation present (GI) and No Hernia present Rectal Exam: deferred Other: Wet to dry dressing in place over midline incision. This was taken down and revealed a small area to the wound bed with pale yellow slough and some yellowish exudate. Minimal tracking to 6 oclock position of the wound of about 2 cm. Fascial sutures appear to be intact. The rest of the wound bed is pink healthy granulation tissue. Mostly serosanguineous fluid in canister. Ileostomy functioning well with normal appearing stool. Mucous fistula appears viable and pink. RLQ wound with packing in place, no surrounding erythema, no purulent drainage. JUHI drain with minimal serous drainage. Objective Data Vital Signs Vital Signs: Vital Signs - 24 hr 12/30/24 14:00 12/30/24 16:00 12/30/24 16:00 Temperature 98.2 F Pulse Rate 114 H 100 105 H Respiratory Rate 17 Blood Pressure 143/97 H Pulse Oximetry 97 12/30/24 20:00 12/30/24 22:00 12/31/24 00:00 Temperature 97.8 F Pulse Rate 105 H 97 Respiratory Rate 16 Blood Pressure 142/83 H Pulse Oximetry 96 12/31/24 03:48 12/31/24 04:00 Temperature 97.3 F L Pulse Rate 97 94 Respiratory Rate 16 Blood Pressure 135/89 Pulse Oximetry 96 Intake/Output Intake/Output: Intake & Output 12/28/24 12/29/24 12/30/24 12/31/24 23:59 23:59 23:59 23:59 Intake Total 2910 1950 1300 890 Output Total 1950 565 150 875 Balance 960 1385 1150 15 Meds/Results Medications: Active Medications Generic Name Dose Route Start Last Admin Trade Name Freq PRN Reason Stop Dose Admin Acetaminophen 650 mg 12/18/24 15:40 12/27/24 21:56 Acetaminophen 325 Mg Tablet PO 650 mg Q4H PRN Administration Mild Pain (1-3) or Fever Hydrocodone Bitart/Acetaminophen 1 tab 12/27/24 18:51 12/31/24 01:51 Hydrocodone/Acetaminophen (*Crx) 10-325 Mg Tablet PO 1 tab Q6H PRN Administration Pain Rated 7-10 Hydrocodone Bitart/Acetaminophen 1 tab 12/27/24 18:51 12/30/24 09:57 Hydrocodone/Acetaminophen (*Crx) 5-325 Mg Tablet PO 1 tab Q4H PRN Administration Pain Rated 4-6 Alteplase, Recombinant 2 mg 12/27/24 10:16 12/27/24 11:57 Alteplase 2 Mg Vial (Cathflo) IV PUSH 2 mg ONCE PRN Administration Line Occlusion Dextrose 12.5 gm 12/14/24 10:29 Dextrose 50% 25 Gm/50 Ml Syringe IV PUSH PRN PRN Hypoglycemia Protocol Enoxaparin Sodium 40 mg 12/07/24 09:00 12/27/24 11:53 Enoxaparin 40 Mg/0.4 Ml Syringe SUB-Q Not Given On Hold: 12/28/24 05:46 DAILY CEE Glucose 15 gm 12/14/24 10:29 Glucose Oral Gel 15 Gm Of Glucse In 37.5 Gm Tube PO PRN PRN Hypoglycemia Protocol Dextrose 1,000 mls @ 100 mls/hr 12/14/24 10:29 Dextrose 5% 1,000 Ml IVPB PRN PRN Hypoglycemia Protocol Piperacillin Sod/Tazobactam 50 mls @ 100 mls/hr 12/17/24 14:30 12/31/24 05:57 Sod 3.375 gm/ Sodium Chloride IVPB 01/01/25 23:59 Infused Q6HR CEE Infusion Fluconazole 400 mg in 200 mls @ 100 mls/hr 12/19/24 13:30 12/31/24 09:50 Diflucan 400 Mg/Nacl 200 Ml IVPB 01/01/25 10:59 100 mls/hr DAILY CEE Administration Insulin Aspart 3 - 6 units 12/22/24 08:00 12/31/24 08:23 Insulin Aspart (*Bkc) 100 Units/Ml SUB-Q Not Given TIDWM CEE Protocol Lorazepam 1 mg 12/22/24 14:58 12/30/24 09:57 Lorazepam (*Crx) 1 Mg Tablet PO 1 mg BID PRN Administration Anxiety Losartan Potassium 25 mg 12/28/24 13:55 12/31/24 09:50 Losartan Potassium 25 Mg Tablet PO 25 mg DAILY CEE Administration Naloxone HCl 0.1 mg 12/06/24 17:15 Naloxone Hcl 0.4 Mg/Ml Vial IV PUSH Q2M PRN Opiate Reversal Nystatin 5 ml 12/30/24 21:00 12/31/24 09:50 Nystatin 100,000 Units/Ml Susp 5 Ml Oral.Susp PO 5 ml QID CEE Administration Ondansetron HCl 4 mg 12/03/24 17:26 12/09/24 05:23 Ondansetron Inj 4 Mg/2 Ml Vial IV PUSH 4 mg Q4H PRN Administration Nausea And Vomiting Oxymetazoline HCl 1 spray 12/29/24 10:31 Oxymetazoline Hcl 0.05% Mahendra 15 Ml Btl (*Bkc) NASAL Q12HR PRN Congestion Pantoprazole Sodium 40 mg 12/27/24 21:00 12/31/24 09:50 Pantoprazole Sodium Iv 40 Mg Vial IV PUSH 40 mg Q12HR CEE Administration Sodium Chloride 10 ml 12/07/24 14:00 12/31/24 05:28 Central Line Flush IV PUSH 10 ml Q8HR CEE Administration Sodium Chloride 20 ml 12/07/24 09:45 12/21/24 05:30 Central Line Flush IV PUSH 20 ml PRN PRN Administration after blood draws Sodium Chloride 1 applic 12/29/24 10:52 12/30/24 05:16 Sodium Chloride Nasal Gel 14.1 Gm NASAL 1 applic PRN PRN Administration nose bleed Radiology Results: ITS Impressions Renal Ultrasound 12/04/24 21:30 Impression: 1: Unremarkable renal ultrasound. No stones, masses or hydronephrosis. Pulmonary Perfusion Imaging 12/05/24 18:55 IMPRESSION: 1: Normal perfusion scan. Probable shallow lung volumes. Recommend correlation with chest x-ray.. Chest/Abdomen/Pelvis CT 12/10/24 10:51 IMPRESSION: 1. Small amount of likely residual free intraperineal gas and fluid post likely revision of an ileocolic anastomosis and placement of a surgical drain. No evident organized abscess or extraluminal contrast to suggest residual anastomotic leak. 2. Wall thickening along the sigmoid colon consistent with colitis infectious or inflammatory in etiology. Differential would also include residual reactive edema related to the prior anastomotic leak and recent surgery. 3. Volume loss in both lungs with atelectasis at the bilateral lung bases including complete collapse of the right middle lobe. Superimposed pneumonia not excludable but suspicion is low. 4. Chronic mild dilation the common bile duct without evident obstructing stone or mass, likely related to prior cholecystectomy but would correlate with liver function tests. CT Brain Angiography 12/13/24 11:34 IMPRESSION: 1. Normal aging brain. No acute intracranial process or abnormally enhancing brain lesions. 2. Unremarkable cerebral CT angiogram with no hemodynamic significant stenosis, thrombosis or aneurysm. Chest CTA 12/13/24 12:45 IMPRESSION: 1. No pulmonary embolus. Sensitivity is moderately decreased by motion artifact. 2. Small lung volumes with relative elevation of right hemidiaphragm. Moderate atelectasis in the inferior lungs 3. Ascites. Abdomen/Pelvis CT 12/26/24 17:56 IMPRESSION: Decrease in intra-abdominal free fluid. All CT scans at this facility are performed using low dose modulation techniques as appropriate to perform exam including the following: automated exposure control; use of iterative reconstruction technique; adjustment of the mA and/or kV according to patient size (this includes techniques or standardized protocols for targeted exams where dose is matched to indication/reason for exam). Chest X-Ray 12/28/24 07:01 IMPRESSION: 1. No change. 2. Bibasilar atelectasis. Labs Labs: Laboratory Results - last 24 hr 12/30/24 12/30/24 12/30/24 11:40 16:40 19:47 POC Capillary Glucose 135 H 144 H 124 H 12/31/24 08:00 POC Capillary Glucose 107 H
--- NOTE | 2024-12-31 14:14 | PM.IMPN ---
Progress Note: A&P Assessment and Plan (1) History of partial colectomy: Code(s): Z90.49 - Acquired absence of other specified parts of digestive tract Status: Resolved (2) Ileocolic anastomotic leak: Code(s): K91.89 - Other postprocedural complications and disorders of digestive system Status: Acute (3) Acute blood loss anemia: Code(s): D62 - Acute posthemorrhagic anemia Status: Acute (4) Acute hypoxemic respiratory failure: Code(s): J96.01 - Acute respiratory failure with hypoxia Status: Acute Plan 64 y/o F with PMH of cancer the right colon S/P right colectomy, thrombosis of the mesenteric vein, WILL, diverticulitis, rhabdomyolysis (2021), hyperlipidemia and hypertension presented here on 12/03 with difficulty urinating. Previously underwent a hand assisted laparoscopic right colectomy with extensive adhesiolysis, mobilization of hepatic flexure by Dr. May on 11/27/24. Discharge on postop day 2 as she was doing well. At home she has had worsening abdominal pain, constipation. On readmission she has had a lengthy hospital course, on 12/06 undergoing a exploratory laparotomy with ileocolic resection with [id number] ileo colic anastomosis drainage of intra-abdominal abscess with placement of wound VAC. Due to bile in JUHI drains she had a repeat abdomen pelvis CT with water-soluble oral contrast demonstrating right hemicolectomy with anastomotic leak. On 12/13/2024 she underwent re-exploration with ileocolic resection with end ileostomy and mucous fistula creation and placement of wound VAC within subcutaneous space measuring 12 cm x 3 cm. General surgery managing wounds, wound VAC, JUHI drain. Currently on TPN. Wound care per surgery and unit protocol and wound care. Next wound VAC Saturday 12/23. Malnutrition: s/p NG tube and now tolerating diet Sepsis: Monitor leukocytosis, tachypnea, tachycardia. Overall trend of leukocytosis has peaked at 19.9 on 12/08/2024, currently improving to 12. Continue to monitor along with procalcitonin. Infectious Disease consulted, continue zosyn, fluconazole, vancomycin p.o. 12/04/2024 blood culture x2 negative, final. vancomycin oral needs to transition to administration through mucous fistula- difficulty administering, surgery to be notified C diff colitis: Appreciate ID recommendations, p.o. vancomycin total 3 weeks via ostomy has been unable to be administered since 12/22 due to difficulty with stoma. Patient failed stoma Vancomycin administration and failed Vanc enema PO Vanc discontinued per ID, ID and Gen surgery on board Stool is forming now Patient comfortable at bedside Post hemorrhagic anemia: Monitor daily hemoglobin, stable. Restart Lovenox 40 mg subQ q.day for DVT prophylaxis when okay by surgery.Anemia hemoglobin down to 6.6 12/18/2024 1 unit PRBC. Now stable at 7.7 Hypocalcemia: After correction for hypoalbuminemia, 8.1. Continue to monitor. Elevated blood glucose readings: HbA1c 6.0%. Accu-Cheks q.6 hours with hypoglycemia protocol and low-dose insulin sliding scale. Acute hypoxic respiratory failure: Patient weaned to room air on 12/15/2024. Due to atelectasis, CTA chest did not demonstrate pneumonia/PE. Continue incentive spirometer and EzPAP q.i.d.. Mobilize as soon as possible. Acute kidney injury and urinary retention: Could be due to hypovolemia, anemia, urinary retention, sepsis, contrast exposure. DARRYL has resolved. Nephrology signed off. Limon catheter remains due to surgery and immobility. Hypertension: Resume Losartan and adjust with clinical course Intraabdominal abscess Continue Zosyn, Fluconazole and Vanc until 01/01 per ID Melena stool from Epistaxis and FOBT positive Hb stable 7.7, s/p 2 units rPBC today See management below Epistaxis Likely cause of GI bleed S/p nasal packing INR 1.1, PTT 42.1 Lovenox on hold, IVF ENT input appreciated patient will follow up with ENT outpatient DVT prophylaxis: SCDs. Lovenox 40 mg daily currently on hold due to Epistaxis Nutrition: regular Prophylaxis: Protonix 40 mg IV q.a.m. for ulcer prophylaxis. PT/OT following Right upper extremity PICC line Deconditioning, PT/OT as appropriate per General surgery team. EzPAP, incentive spirometer. Patient wishes to be full code. Prior to admission she lives at home and was independent. Awaiting placement otherwise stable for discharge from medical standpoint Subjective Date/time seen: 12/31/24 14:14 Interval history: No acute events overnight. Patient is cleared to discharge from medical standpoint. Review of Systems Review of Systems: All systems reviewed & are unremarkable except as noted in HPI and below (Subjective) Exam Narrative: GENERAL: Alert and oriented x3, not in acute distress HEAD: Normal with no signs of head trauma. EYES: EOMI, conjunctiva normal ENT: Hearing grossly intact LUNGS: Nonlabored breathing. No adventitious sounds HEART: [Regular rate and rhythm], no murmurs ABD: [Soft], mildly distended, mild tenderness, surgical incision with wound VAC, clean dry and intact. Colostomy and RLQ stoma noted. EXT: Normal range of motion SKIN: [No rashes or lesions.] NEURO: [Alert and oriented x 3. No gross focal sensory or strength deficits.] PSYCH: Normal affect Const: General: comfortable and no acute distress Other: A&O x3 HENMT: Face/Nose/Sinus: Normal nares present Mouth: Yes moist mucous membranes and Yes dry mucous membranes Eyes: General: appearance normal, both eyes and all related structures Sclera: sclerae normal Pupils: Equal, round and reactive pupils present EOM: EOMs intact bilaterally Neck: Neck: supple Resp: Effort & Inspection: normal respiratory effort Auscultation: clear to auscultation bilaterally and crackles Other: Slowly decreased breath sounds at bilateral bases, no crackles/wheezing/rhonchi Cardio: Rate: regular rate and tachycardic Rhythm: regular rhythm Heart sounds: no gallops and no murmurs Other: S1-S2 present without murmur, rub, ectopy GI: Inspection: non-distended Other: Right-sided mucous fistula with serosanguineous drainage, end ileostomy with light brown serous drainage, JUHI drain with serosanguineous drainage, wound VAC intact. Urinary Catheter: Urinary Catheter: patent and draining Skin: General skin exam: normal color and no rashes or lesions noted Other: Postsurgical incision to abdomen is well approximated, sutures in place, no signs of infection Neuro: Cranial nerves: Yes Equal, round and reactive pupils present Speech: normal speech Motor exam (neuro): 5/5 motor strength present throughout Sensory Exam: normal sensation Other: Generalized weakness Extrem: General: normal to inspection and edema Other: Trace edema bilateral lower extremities Psych: Mental Status: mental status grossly normal Affect: normal affect Other: Good insight and judgment, pleasant Objective Data Vital Signs Vital Signs: Vital Signs - 24 hr 12/30/24 16:00 12/30/24 16:00 12/30/24 20:00 Temperature Pulse Rate 100 105 H 105 H Respiratory Rate Blood Pressure Pulse Oximetry 12/30/24 22:00 12/31/24 00:00 12/31/24 03:48 Temperature 97.8 F 97.3 F L Pulse Rate 97 97 Respiratory Rate 16 16 Blood Pressure 142/83 H 135/89 Pulse Oximetry 96 96 12/31/24 04:00 Temperature Pulse Rate 94 Respiratory Rate Blood Pressure Pulse Oximetry Intake/Output Intake/Output: Intake & Output 12/28/24 12/29/24 12/30/24 12/31/24 23:59 23:59 23:59 23:59 Intake Total 2910 1950 1300 890 Output Total 1950 817 517 1957 Balance 960 1385 1150 -485 Meds/Results Medications: Active Medications Generic Name Dose Route Start Last Admin Trade Name Freq PRN Reason Stop Dose Admin Acetaminophen 650 mg 12/18/24 15:40 12/27/24 21:56 Acetaminophen 325 Mg Tablet PO 650 mg Q4H PRN Administration Mild Pain (1-3) or Fever Hydrocodone Bitart/Acetaminophen 1 tab 12/27/24 18:51 12/31/24 13:26 Hydrocodone/Acetaminophen (*Crx) 10-325 Mg Tablet PO 1 tab Q6H PRN Administration Pain Rated 7-10 Hydrocodone Bitart/Acetaminophen 1 tab 12/27/24 18:51 12/30/24 09:57 Hydrocodone/Acetaminophen (*Crx) 5-325 Mg Tablet PO 1 tab Q4H PRN Administration Pain Rated 4-6 Alteplase, Recombinant 2 mg 12/27/24 10:16 12/27/24 11:57 Alteplase 2 Mg Vial (Cathflo) IV PUSH 2 mg ONCE PRN Administration Line Occlusion Dextrose 12.5 gm 12/14/24 10:29 Dextrose 50% 25 Gm/50 Ml Syringe IV PUSH PRN PRN Hypoglycemia Protocol Enoxaparin Sodium 40 mg 12/07/24 09:00 12/27/24 11:53 Enoxaparin 40 Mg/0.4 Ml Syringe SUB-Q Not Given On Hold: 12/28/24 05:46 DAILY CEE Glucose 15 gm 12/14/24 10:29 Glucose Oral Gel 15 Gm Of Glucse In 37.5 Gm Tube PO PRN PRN Hypoglycemia Protocol Dextrose 1,000 mls @ 100 mls/hr 12/14/24 10:29 Dextrose 5% 1,000 Ml IVPB PRN PRN Hypoglycemia Protocol Piperacillin Sod/Tazobactam 50 mls @ 100 mls/hr 12/17/24 14:30 12/31/24 13:27 Sod 3.375 gm/ Sodium Chloride IVPB 01/01/25 23:59 100 mls/hr Q6HR CEE Administration Fluconazole 400 mg in 200 mls @ 100 mls/hr 12/19/24 13:30 12/31/24 09:50 Diflucan 400 Mg/Nacl 200 Ml IVPB 01/01/25 10:59 100 mls/hr DAILY CEE Administration Insulin Aspart 3 - 6 units 12/22/24 08:00 12/31/24 12:18 Insulin Aspart (*Bkc) 100 Units/Ml SUB-Q Not Given TIDWM CEE Protocol Lorazepam 1 mg 12/22/24 14:58 12/30/24 09:57 Lorazepam (*Crx) 1 Mg Tablet PO 1 mg BID PRN Administration Anxiety Losartan Potassium 25 mg 12/28/24 13:55 12/31/24 09:50 Losartan Potassium 25 Mg Tablet PO 25 mg DAILY CEE Administration Naloxone HCl 0.1 mg 12/06/24 17:15 Naloxone Hcl 0.4 Mg/Ml Vial IV PUSH Q2M PRN Opiate Reversal Nystatin 5 ml 12/30/24 21:00 12/31/24 13:26 Nystatin 100,000 Units/Ml Susp 5 Ml Oral.Susp PO 5 ml QID CEE Administration Ondansetron HCl 4 mg 12/03/24 17:26 12/09/24 05:23 Ondansetron Inj 4 Mg/2 Ml Vial IV PUSH 4 mg Q4H PRN Administration Nausea And Vomiting Oxymetazoline HCl 1 spray 12/29/24 10:31 Oxymetazoline Hcl 0.05% Mahendra 15 Ml Btl (*Bkc) NASAL Q12HR PRN Congestion Pantoprazole Sodium 40 mg 12/27/24 21:00 12/31/24 09:50 Pantoprazole Sodium Iv 40 Mg Vial IV PUSH 40 mg Q12HR CEE Administration Sodium Chloride 10 ml 12/07/24 14:00 12/31/24 13:27 Central Line Flush IV PUSH 10 ml Q8HR CEE Administration Sodium Chloride 20 ml 12/07/24 09:45 12/21/24 05:30 Central Line Flush IV PUSH 20 ml PRN PRN Administration after blood draws Sodium Chloride 1 applic 12/29/24 10:52 12/30/24 05:16 Sodium Chloride Nasal Gel 14.1 Gm NASAL 1 applic PRN PRN Administration nose bleed Radiology Results: ITS Impressions Renal Ultrasound 12/04/24 21:30 Impression: 1: Unremarkable renal ultrasound. No stones, masses or hydronephrosis. Pulmonary Perfusion Imaging 12/05/24 18:55 IMPRESSION: 1: Normal perfusion scan. Probable shallow lung volumes. Recommend correlation with chest x-ray.. Chest/Abdomen/Pelvis CT 12/10/24 10:51 IMPRESSION: 1. Small amount of likely residual free intraperineal gas and fluid post likely revision of an ileocolic anastomosis and placement of a surgical drain. No evident organized abscess or extraluminal contrast to suggest residual anastomotic leak. 2. Wall thickening along the sigmoid colon consistent with colitis infectious or inflammatory in etiology. Differential would also include residual reactive edema related to the prior anastomotic leak and recent surgery. 3. Volume loss in both lungs with atelectasis at the bilateral lung bases including complete collapse of the right middle lobe. Superimposed pneumonia not excludable but suspicion is low. 4. Chronic mild dilation the common bile duct without evident obstructing stone or mass, likely related to prior cholecystectomy but would correlate with liver function tests. CT Brain Angiography 12/13/24 11:34 IMPRESSION: 1. Normal aging brain. No acute intracranial process or abnormally enhancing brain lesions. 2. Unremarkable cerebral CT angiogram with no hemodynamic significant stenosis, thrombosis or aneurysm. Chest CTA 12/13/24 12:45 IMPRESSION: 1. No pulmonary embolus. Sensitivity is moderately decreased by motion artifact. 2. Small lung volumes with relative elevation of right hemidiaphragm. Moderate atelectasis in the inferior lungs 3. Ascites. Abdomen/Pelvis CT 12/26/24 17:56 IMPRESSION: Decrease in intra-abdominal free fluid. All CT scans at this facility are performed using low dose modulation techniques as appropriate to perform exam including the following: automated exposure control; use of iterative reconstruction technique; adjustment of the mA and/or kV according to patient size (this includes techniques or standardized protocols for targeted exams where dose is matched to indication/reason for exam). Chest X-Ray 12/28/24 07:01 IMPRESSION: 1. No change. 2. Bibasilar atelectasis. Labs Labs: Laboratory Results - last 24 hr 12/30/24 12/30/24 12/31/24 16:40 19:47 08:00 POC Capillary Glucose 144 H 124 H 107 H 12/31/24 12:00 POC Capillary Glucose 142 H Quality VTE Prophylaxis VTE prophylaxis: mechanical ordered Hospitalist MIPS Advance Care Plan I have confirmed that the patient's Advanced Care Plan is present, code status is documented, or surrogate decision maker is listed in patient medical record.: Yes Medication Reconciliation I have utilized all available resources to obtain, update and review the patients current medications (includes all prescriptions, OTC, herbals, cannabis, and nutritional supplements).: Yes
[2024-12-31 14:26] LABS: Hematocrit 24.5 % (37.0-47.0); Hemoglobin 7.7 g/dL (12.0-15.0); Mean Corpuscular HGB Conc 31.4 g/dl (32-36); Mean Corpuscular Hemoglobin 27.3 pg (26-34); Mean Corpuscular Volume 86.9 fl (80-100); Platelet Count Result 504 k/mm3 (150-375); Red Blood Count 2.82 M/mm3 (4.2-5.4); White Blood Count 14.1 K/mm3 (4.5-10.0)
[2024-12-31 14:38] LABS: Anion Gap 3 mmol/L (4-12); Blood Urea Nitrogen 9 mg/dL (7-17); Calcium 8.5 mg/dL (8.4-10.2); Carbon Dioxide 31 mmol/L (22-30); Chloride 92 mmol/L (98-107); Estimated Glomerular Filt Rate > 60; Glucose 145 mg/dL (65-110); Potassium 3.3 mmol/L (3.4-5.0); Sodium 126 mmol/L (137-145)
--- NOTE | 2024-12-31 15:07 | WNDPHOTO ---
PHOTO ONLY - See Nursing Notes and/ or assessments for documentation.
--- NOTE | 2024-12-31 15:13 | WNDPHOTO ---
PHOTO ONLY - See Nursing Notes and/ or assessments for documentation.
--- NOTE | 2024-12-31 16:36 | P.PNINF_ITS ---
Progress Note: A&P Assessment and Plan (1) Intra-abdominal abscess post-procedure: Code(s): T81.43XA - Infection following a procedure, organ and space surgical site, initial encounter; K65.1 - Peritoneal abscess Status: Acute Assessment and Plan: As below Plan Assessment and plan (1) Intra-abdominal abscess post-procedure: Code(s): T81.43XA - Infection following a procedure, organ and space surgical site, initial encounter; K65.1 - Peritoneal abscess Status: Acute Assessment and Plan: -Abscess secondary to ileocolic anastomotic leak -Management as per surgical service - currently receiving Zosyn and fluconazole through 01/01/2025 but okay to disc ontinue antibiotics today if being discharged. (2) Ileocolic anastomotic leak: Code(s): K91.89 - Other postprocedural complications and disorders of digestive system Status: Acute Assessment and Plan: -Management as per surgical service (3) History of partial colectomy: Code(s): Z90.49 - Acquired absence of other specified parts of digestive tract Status: Resolved (4) Adenocarcinoma of colon: Code(s): C18.9 - Malignant neoplasm of colon, unspecified Status: Acute Assessment and Plan: -Management as per primary service (5) Cancer of right colon: Onset Date: ~10/2024 Code(s): C18.2 - Malignant neoplasm of ascending colon Status: Acute Assessment and Plan: -Management as per primary service (6) C. difficile diarrhea: Onset Date: ~04/01/24 Code(s): A04.72 - Enterocolitis due to Clostridium difficile, not specified as recurrent Status: Inactive Assessment and Plan: -Patient has history of C.difficile infection starting in March 2024 -Has new diarrhea as of 12/12/24--now resolved -enteral vancomycin administered through a mucous fistula Has been discontinued. Plan: -- Continue Zosyn plus fluconazole through 01/01/2025 ; however, may discontinue today if patient to be discharged today. -- should remove PICC prior to discharge. --no need to transition to ertapenem on discharge as this was going to be discontinued on 01/01/2025. d/w nursing staff and pharmacy staff Patient was seen via video telehealth consultation with the assistance of staff. Chart, data, and patient independently reviewed. Patient was located at [facility] while I was located in my [place] office. Received verbal consent from patient. Subjective Date/time seen: 12/31/24 16:36 Interval history: 12/30/2024: Afebrile with chronic low-grade tachycardia. She currently denies diarrhea which is verified by the surgical service. White blood cell count decreased to 15.5. Repeat CT abdomen and pelvis with thickening and infiltrative changes involving the transverse and descending colon suggestive of colitis. There is a drainage catheter entering the left abdomen and terminating in the right pericolic gu tter. there is small amount of free fluid throughout the abdomen. There are no bowel obstruction. Decrease in intra-abdominal free fluid. 12/31/2024: No new complaints. Afebrile and with stable vital signs. White blood cell count 11.8. CT of the abdomen showed interval decrease in the size of 2 residual small abscess cavities. Review of Systems Review of Systems: All systems reviewed & are unremarkable except as noted in HPI and below Exam Narrative: on room air, non-toxic abd: +ostomy, midline wound vac; drain with serous fluid. No diarrhea. Maintains a Right arm PICC. Objective Data Vital Signs Vital Signs: Vital Signs - 24 hr 12/30/24 20:00 12/30/24 22:00 12/31/24 00:00 Temperature 97.8 F Pulse Rate 105 H 97 Respiratory Rate 16 Blood Pressure 142/83 H Pulse Oximetry 96 Oxygen Delivery 12/31/24 03:48 12/31/24 04:00 12/31/24 09:50 Temperature 97.3 F L Pulse Rate 97 94 Respiratory Rate 16 Blood Pressure 135/89 Pulse Oximetry 96 98 Oxygen Delivery Room Air 12/31/24 14:00 Temperature 97.9 F Pulse Rate 106 H Respiratory Rate 16 Blood Pressure 141/89 H Pulse Oximetry 98 Oxygen Delivery Intake/Output Intake/Output: Intake & Output 12/28/24 12/29/24 12/30/24 12/31/24 23:59 23:59 23:59 23:59 Intake Total 2910 1950 1300 1010 Output Total 1950 906 080 1920 Balance 960 1385 1150 -365 Meds/Results Medications: Active Medications Generic Name Dose Route Start Last Admin Trade Name Freq PRN Reason Stop Dose Admin Acetaminophen 650 mg 12/18/24 15:40 12/27/24 21:56 Acetaminophen 325 Mg Tablet PO 650 mg Q4H PRN Administration Mild Pain (1-3) or Fever Hydrocodone Bitart/Acetaminophen 1 tab 12/27/24 18:51 12/31/24 13:26 Hydrocodone/Acetaminophen (*Crx) 10-325 Mg Tablet PO 1 tab Q6H PRN Administration Pain Rated 7-10 Hydrocodone Bitart/Acetaminophen 1 tab 12/27/24 18:51 12/30/24 09:57 Hydrocodone/Acetaminophen (*Crx) 5-325 Mg Tablet PO 1 tab Q4H PRN Administration Pain Rated 4-6 Alteplase, Recombinant 2 mg 12/27/24 10:16 12/27/24 11:57 Alteplase 2 Mg Vial (Cathflo) IV PUSH 2 mg ONCE PRN Administration Line Occlusion Dextrose 12.5 gm 12/14/24 10:29 Dextrose 50% 25 Gm/50 Ml Syringe IV PUSH PRN PRN Hypoglycemia Protocol Enoxaparin Sodium 40 mg 12/07/24 09:00 12/27/24 11:53 Enoxaparin 40 Mg/0.4 Ml Syringe SUB-Q Not Given On Hold: 12/28/24 05:46 DAILY CEE Glucose 15 gm 12/14/24 10:29 Glucose Oral Gel 15 Gm Of Glucse In 37.5 Gm Tube PO PRN PRN Hypoglycemia Protocol Dextrose 1,000 mls @ 100 mls/hr 12/14/24 10:29 Dextrose 5% 1,000 Ml IVPB PRN PRN Hypoglycemia Protocol Piperacillin Sod/Tazobactam 50 mls @ 100 mls/hr 12/17/24 14:30 12/31/24 13:27 Sod 3.375 gm/ Sodium Chloride IVPB 01/01/25 23:59 100 mls/hr Q6HR CEE Administration Fluconazole 400 mg in 200 mls @ 100 mls/hr 12/19/24 13:30 12/31/24 09:50 Diflucan 400 Mg/Nacl 200 Ml IVPB 01/01/25 10:59 100 mls/hr DAILY CEE Administration Insulin Aspart 3 - 6 units 12/22/24 08:00 12/31/24 12:18 Insulin Aspart (*Bkc) 100 Units/Ml SUB-Q Not Given TIDWM CEE Protocol Lorazepam 1 mg 12/22/24 14:58 12/30/24 09:57 Lorazepam (*Crx) 1 Mg Tablet PO 1 mg BID PRN Administration Anxiety Losartan Potassium 25 mg 12/28/24 13:55 12/31/24 09:50 Losartan Potassium 25 Mg Tablet PO 25 mg DAILY CEE Administration Naloxone HCl 0.1 mg 12/06/24 17:15 Naloxone Hcl 0.4 Mg/Ml Vial IV PUSH Q2M PRN Opiate Reversal Nystatin 5 ml 12/30/24 21:00 12/31/24 13:26 Nystatin 100,000 Units/Ml Susp 5 Ml Oral.Susp PO 5 ml QID CEE Administration Ondansetron HCl 4 mg 12/03/24 17:26 12/09/24 05:23 Ondansetron Inj 4 Mg/2 Ml Vial IV PUSH 4 mg Q4H PRN Administration Nausea And Vomiting Oxymetazoline HCl 1 spray 12/29/24 10:31 Oxymetazoline Hcl 0.05% Mahendra 15 Ml Btl (*Bkc) NASAL Q12HR PRN Congestion Pantoprazole Sodium 40 mg 12/27/24 21:00 12/31/24 09:50 Pantoprazole Sodium Iv 40 Mg Vial IV PUSH 40 mg Q12HR CEE Administration Sodium Chloride 10 ml 12/07/24 14:00 12/31/24 13:27 Central Line Flush IV PUSH 10 ml Q8HR CEE Administration Sodium Chloride 20 ml 12/07/24 09:45 12/21/24 05:30 Central Line Flush IV PUSH 20 ml PRN PRN Administration after blood draws Sodium Chloride 1 applic 12/29/24 10:52 12/30/24 05:16 Sodium Chloride Nasal Gel 14.1 Gm NASAL 1 applic PRN PRN Administration nose bleed Radiology Results: ITS Impressions Renal Ultrasound 12/04/24 21:30 Impression: 1: Unremarkable renal ultrasound. No stones, masses or hydronephrosis. Pulmonary Perfusion Imaging 12/05/24 18:55 IMPRESSION: 1: Normal perfusion scan. Probable shallow lung volumes. Recommend correlation with chest x-ray.. Chest/Abdomen/Pelvis CT 12/10/24 10:51 IMPRESSION: 1. Small amount of likely residual free intraperineal gas and fluid post likely revision of an ileocolic anastomosis and placement of a surgical drain. No evident organized abscess or extraluminal contrast to suggest residual anastomotic leak. 2. Wall thickening along the sigmoid colon consistent with colitis infectious or inflammatory in etiology. Differential would also include residual reactive edema related to the prior anastomotic leak and recent surgery. 3. Volume loss in both lungs with atelectasis at the bilateral lung bases including complete collapse of the right middle lobe. Superimposed pneumonia not excludable but suspicion is low. 4. Chronic mild dilation the common bile duct without evident obstructing stone or mass, likely related to prior cholecystectomy but would correlate with liver function tests. CT Brain Angiography 12/13/24 11:34 IMPRESSION: 1. Normal aging brain. No acute intracranial process or abnormally enhancing brain lesions. 2. Unremarkable cerebral CT angiogram with no hemodynamic significant stenosis, thrombosis or aneurysm. Chest CTA 12/13/24 12:45 IMPRESSION: 1. No pulmonary embolus. Sensitivity is moderately decreased by motion artifact. 2. Small lung volumes with relative elevation of right hemidiaphragm. Moderate atelectasis in the inferior lungs 3. Ascites. Abdomen/Pelvis CT 12/26/24 17:56 IMPRESSION: Decrease in intra-abdominal free fluid. All CT scans at this facility are performed using low dose modulation techniques as appropriate to perform exam including the following: automated exposure control; use of iterative reconstruction technique; adjustment of the mA and/or kV according to patient size (this includes techniques or standardized protocols for targeted exams where dose is matched to indication/reason for exam). Chest X-Ray 12/28/24 07:01 IMPRESSION: 1. No change. 2. Bibasilar atelectasis. Labs Labs: Laboratory Results - last 24 hr 12/30/24 12/30/24 12/31/24 16:40 19:47 08:00 WBC RBC Hgb Hct MCV MCH MCHC RDW Plt Count MPV Sodium Potassium Chloride Carbon Dioxide Anion Gap BUN Creatinine Estim Creat Clear Calc Estimated GFR Glucose POC Capillary Glucose 144 H 124 H 107 H Calcium 12/31/24 12/31/24 12:00 14:09 WBC 14.1 H RBC 2.82 L Hgb 7.7 L Hct 24.5 L MCV 86.9 MCH 27.3 MCHC 31.4 L RDW 18.2 H Plt Count 504 H MPV 8.6 Sodium 126 L Potassium 3.3 L Chloride 92 L Carbon Dioxide 31 H Anion Gap 3 L BUN 9 D Creatinine 0.56 L Estim Creat Clear Calc Not Reportable Estimated GFR > 60 Glucose 145 H POC Capillary Glucose 142 H Calcium 8.5
[2024-12-31] MEDS: POTASSIUM CHLORIDE 20 MEQ ER TABLET 40 MEQ PO (17:42)
[2025-01-01] VITALS: PULSE 103
[2025-01-01] MEDS: PIPERACILLIN/TAZOBACTAM SOD 3.375 GM in SODIUM CHLORIDE 0.9% IV 50 ML 100 ML IVPB ×3 (00:40→13:14)
[2025-01-01 04:00] VITALS: PULSE 105
[2025-01-01 06:00] VITALS: BP 159/92; PULSE 96; RESP 16; TEMP 36.3; O2SAT 97
[2025-01-01] MEDS: CENTRAL LINE FLUSH 10 ML IV PUSH ×2 (06:16→13:16)
[2025-01-01] MEDS: HYDROcodone/acetaminophen (*CRX) 10-325 MG TABLET 1 TAB PO (06:53)
[2025-01-01 08:00] VITALS: PULSE 97
[2025-01-01] MEDS: NYSTATIN 100,000 UNITS/ML SUSP 5 ML ORAL.SUSP PO ×2 (08:57→13:16)
[2025-01-01] MEDS: PANTOPRAZOLE SODIUM IV 40 MG VIAL IV PUSH (08:57)
[2025-01-01] MEDS: LOSARTAN POTASSIUM 25 MG TABLET PO (08:57)
[2025-01-01] MEDS: FLUCONAZOLE 400 MG/NACL 200 ML 400 MG/200 ML BAG 100 MG IVPB (08:59)
--- NOTE | 2025-01-01 10:36 | PM.PNGS ---
Progress Note: A&P Assessment and Plan (1) Ileocolic anastomotic leak: Code(s): K91.89 - Other postprocedural complications and disorders of digestive system Status: Acute Assessment and Plan: Tolerating a diet and ostomy is functioning well Continue daily packing dressing changes to RLQ wound JUHI drain removed Continue abx per ID. Ok to discontinue upon discharge. Ok to continue wet to dry dressings today as we are expecting a potential discharge. Plan to continue wound vac therapy upon discharge. If not able to be discharged today or tomorrow, we will replace wound vac here. Surgically stable for discharge, CC is working on d/c planning possibly to [facility]. (2) Upper GI bleed: Code(s): K92.2 - Gastrointestinal hemorrhage, unspecified Status: Acute Assessment and Plan: No further epistaxis after ENT placed surgicel to left nares. Lovenox still on hold. Hgb stable. (3) Thrush: Code(s): B37.0 - Candidal stomatitis Status: Acute Assessment and Plan: Continue nystatin suspension, swish and swallow. Plan I have discussed the patient's case and plan of care with Dr. Burch. Subjective Subjective Date/Time Seen: 01/01/25 10:36 Patient reports: no new complaints, tolerating a regular diet (only eating a small percentage), bowel movement and afebrile Interval history: No new complaints. Awaiting placement. Exam Const: General: comfortable and no acute distress GI: Other: Wet to dry dressing in place over midline incision. No obvious saturation to dressing. Ileostomy functioning well with normal appearing stool. Mucous fistula appears viable and pink. RLQ wound with packing in place, no surrounding erythema, no purulent drainage. JUHI drain removed yesterday. Objective Data Vital Signs Vital Signs: Vital Signs - 24 hr 12/31/24 12:00 12/31/24 14:00 12/31/24 16:00 Temperature 97.9 F Pulse Rate 97 106 H 97 Respiratory Rate 16 Blood Pressure 141/89 H Pulse Oximetry 98 Oxygen Delivery 12/31/24 20:00 12/31/24 20:00 12/31/24 20:51 Temperature 97.7 F Pulse Rate 105 H 108 H Respiratory Rate 18 Blood Pressure 143/91 H Pulse Oximetry 96 Oxygen Delivery Room Air 01/01/25 00:00 01/01/25 04:00 01/01/25 06:00 Temperature 97.3 F L Pulse Rate 103 H 105 H 96 Respiratory Rate 16 Blood Pressure 159/92 H Pulse Oximetry 97 Oxygen Delivery Intake/Output Intake/Output: Intake & Output 12/29/24 12/30/24 12/31/24 01/01/25 23:59 23:59 23:59 23:59 Intake Total 1950 1300 2300 390 Output Total 438 228 8739 1300 Balance 1385 1150 425 -910 Meds/Results Medications: Active Medications Generic Name Dose Route Start Last Admin Trade Name Freq PRN Reason Stop Dose Admin Acetaminophen 650 mg 12/18/24 15:40 12/27/24 21:56 Acetaminophen 325 Mg Tablet PO 650 mg Q4H PRN Administration Mild Pain (1-3) or Fever Hydrocodone Bitart/Acetaminophen 1 tab 12/27/24 18:51 01/01/25 06:53 Hydrocodone/Acetaminophen (*Crx) 10-325 Mg Tablet PO 1 tab Q6H PRN Administration Pain Rated 7-10 Hydrocodone Bitart/Acetaminophen 1 tab 12/27/24 18:51 12/30/24 09:57 Hydrocodone/Acetaminophen (*Crx) 5-325 Mg Tablet PO 1 tab Q4H PRN Administration Pain Rated 4-6 Alteplase, Recombinant 2 mg 12/27/24 10:16 12/27/24 11:57 Alteplase 2 Mg Vial (Cathflo) IV PUSH 2 mg ONCE PRN Administration Line Occlusion Dextrose 12.5 gm 12/14/24 10:29 Dextrose 50% 25 Gm/50 Ml Syringe IV PUSH PRN PRN Hypoglycemia Protocol Enoxaparin Sodium 40 mg 12/07/24 09:00 12/27/24 11:53 Enoxaparin 40 Mg/0.4 Ml Syringe SUB-Q Not Given On Hold: 12/28/24 05:46 DAILY CEE Glucose 15 gm 12/14/24 10:29 Glucose Oral Gel 15 Gm Of Glucse In 37.5 Gm Tube PO PRN PRN Hypoglycemia Protocol Dextrose 1,000 mls @ 100 mls/hr 12/14/24 10:29 Dextrose 5% 1,000 Ml IVPB PRN PRN Hypoglycemia Protocol Piperacillin Sod/Tazobactam 50 mls @ 100 mls/hr 12/17/24 14:30 01/01/25 06:16 Sod 3.375 gm/ Sodium Chloride IVPB 01/01/25 23:59 100 mls/hr Q6HR CEE Administration Fluconazole 400 mg in 200 mls @ 100 mls/hr 12/19/24 13:30 01/01/25 08:59 Diflucan 400 Mg/Nacl 200 Ml IVPB 01/01/25 10:59 100 mls/hr DAILY CEE Administration Insulin Aspart 3 - 6 units 12/22/24 08:00 01/01/25 08:59 Insulin Aspart (*Bkc) 100 Units/Ml SUB-Q Not Given TIDWM [facility] Protocol Lorazepam 1 mg 12/22/24 14:58 12/30/24 09:57 Lorazepam (*Crx) 1 Mg Tablet PO 1 mg BID PRN Administration Anxiety Losartan Potassium 25 mg 12/28/24 13:55 01/01/25 08:57 Losartan Potassium 25 Mg Tablet PO 25 mg DAILY CEE Administration Naloxone HCl 0.1 mg 12/06/24 17:15 Naloxone Hcl 0.4 Mg/Ml Vial IV PUSH Q2M PRN Opiate Reversal Nystatin 5 ml 12/30/24 21:00 01/01/25 08:57 Nystatin 100,000 Units/Ml Susp 5 Ml Oral.Susp PO 5 ml QID CEE Administration Ondansetron HCl 4 mg 12/03/24 17:26 12/09/24 05:23 Ondansetron Inj 4 Mg/2 Ml Vial IV PUSH 4 mg Q4H PRN Administration Nausea And Vomiting Oxymetazoline HCl 1 spray 12/29/24 10:31 Oxymetazoline Hcl 0.05% Mahendra 15 Ml Btl (*Bkc) NASAL Q12HR PRN Congestion Pantoprazole Sodium 40 mg 12/27/24 21:00 01/01/25 08:57 Pantoprazole Sodium Iv 40 Mg Vial IV PUSH 40 mg Q12HR CEE Administration Sodium Chloride 10 ml 12/07/24 14:00 01/01/25 06:16 Central Line Flush IV PUSH 10 ml Q8HR CEE Administration Sodium Chloride 20 ml 12/07/24 09:45 12/21/24 05:30 Central Line Flush IV PUSH 20 ml PRN PRN Administration after blood draws Sodium Chloride 1 applic 12/29/24 10:52 12/30/24 05:16 Sodium Chloride Nasal Gel 14.1 Gm NASAL 1 applic PRN PRN Administration nose bleed Radiology Results: ITS Impressions Renal Ultrasound 12/04/24 21:30 Impression: 1: Unremarkable renal ultrasound. No stones, masses or hydronephrosis. Pulmonary Perfusion Imaging 12/05/24 18:55 IMPRESSION: 1: Normal perfusion scan. Probable shallow lung volumes. Recommend correlation with chest x-ray.. Chest/Abdomen/Pelvis CT 12/10/24 10:51 IMPRESSION: 1. Small amount of likely residual free intraperineal gas and fluid post likely revision of an ileocolic anastomosis and placement of a surgical drain. No evident organized abscess or extraluminal contrast to suggest residual anastomotic leak. 2. Wall thickening along the sigmoid colon consistent with colitis infectious or inflammatory in etiology. Differential would also include residual reactive edema related to the prior anastomotic leak and recent surgery. 3. Volume loss in both lungs with atelectasis at the bilateral lung bases including complete collapse of the right middle lobe. Superimposed pneumonia not excludable but suspicion is low. 4. Chronic mild dilation the common bile duct without evident obstructing stone or mass, likely related to prior cholecystectomy but would correlate with liver function tests. CT Brain Angiography 12/13/24 11:34 IMPRESSION: 1. Normal aging brain. No acute intracranial process or abnormally enhancing brain lesions. 2. Unremarkable cerebral CT angiogram with no hemodynamic significant stenosis, thrombosis or aneurysm. Chest CTA 12/13/24 12:45 IMPRESSION: 1. No pulmonary embolus. Sensitivity is moderately decreased by motion artifact. 2. Small lung volumes with relative elevation of right hemidiaphragm. Moderate atelectasis in the inferior lungs 3. Ascites. Abdomen/Pelvis CT 12/26/24 17:56 IMPRESSION: Decrease in intra-abdominal free fluid. All CT scans at this facility are performed using low dose modulation techniques as appropriate to perform exam including the following: automated exposure control; use of iterative reconstruction technique; adjustment of the mA and/or kV according to patient size (this includes techniques or standardized protocols for targeted exams where dose is matched to indication/reason for exam). Chest X-Ray 12/28/24 07:01 IMPRESSION: 1. No change. 2. Bibasilar atelectasis. Labs Labs: Laboratory Results - last 24 hr 12/31/24 12/31/24 12/31/24 12:00 14:09 16:38 WBC 14.1 H RBC 2.82 L Hgb 7.7 L Hct 24.5 L MCV 86.9 MCH 27.3 MCHC 31.4 L RDW 18.2 H Plt Count 504 H MPV 8.6 Sodium 126 L Potassium 3.3 L Chloride 92 L Carbon Dioxide 31 H Anion Gap 3 L BUN 9 D Creatinine 0.56 L Estim Creat Clear Calc Not Reportable Estimated GFR > 60 Glucose 145 H POC Capillary Glucose 142 H 145 H Calcium 8.5 12/31/24 01/01/25 19:56 07:58 WBC RBC Hgb Hct MCV MCH MCHC RDW Plt Count MPV Sodium Potassium Chloride Carbon Dioxide Anion Gap BUN Creatinine Estim Creat Clear Calc Estimated GFR Glucose POC Capillary Glucose 178 H 109 H Calcium
--- NOTE | 2025-01-01 10:57 | PM.IMPN ---
Progress Note: A&P Assessment and Plan (1) History of partial colectomy: Code(s): Z90.49 - Acquired absence of other specified parts of digestive tract Status: Resolved (2) Ileocolic anastomotic leak: Code(s): K91.89 - Other postprocedural complications and disorders of digestive system Status: Acute (3) Acute blood loss anemia: Code(s): D62 - Acute posthemorrhagic anemia Status: Acute (4) Acute hypoxemic respiratory failure: Code(s): J96.01 - Acute respiratory failure with hypoxia Status: Acute (5) Hyponatremia: Code(s): E87.1 - Hypo-osmolality and hyponatremia Status: Acute Plan 64 y/o F with PMH of cancer the right colon S/P right colectomy, thrombosis of the mesenteric vein, WILL, diverticulitis, rhabdomyolysis (2021), hyperlipidemia and hypertension presented here on 12/03 with difficulty urinating. Previously underwent a hand assisted laparoscopic right colectomy with extensive adhesiolysis, mobilization of hepatic flexure by Dr. May on 11/27/24. Discharge on postop day 2 as she was doing well. At home she has had worsening abdominal pain, constipation. On readmission she has had a lengthy hospital course, on 12/06 undergoing a exploratory laparotomy with ileocolic resection with [id number] ileo colic anastomosis drainage of intra-abdominal abscess with placement of wound VAC. Due to bile in JUHI drains she had a repeat abdomen pelvis CT with water-soluble oral contrast demonstrating right hemicolectomy with anastomotic leak. On 12/13/2024 she underwent re-exploration with ileocolic resection with end ileostomy and mucous fistula creation and placement of wound VAC within subcutaneous space measuring 12 cm x 3 cm. General surgery managing wounds, wound VAC, JUHI drain. Currently on TPN. Wound care per surgery and unit protocol and wound care. Next wound VAC Saturday 12/23. Malnutrition: s/p NG tube and now tolerating diet Sepsis: Monitor leukocytosis, tachypnea, tachycardia. Overall trend of leukocytosis has peaked at 19.9 on 12/08/2024, currently improving to 12. Continue to monitor along with procalcitonin. Infectious Disease consulted, continue zosyn, fluconazole, vancomycin p.o. 12/04/2024 blood culture x2 negative, final. vancomycin oral needs to transition to administration through mucous fistula- difficulty administering, surgery to be notified C diff colitis: Appreciate ID recommendations, p.o. vancomycin total 3 weeks via ostomy has been unable to be administered since 12/22 due to difficulty with stoma. Patient failed stoma Vancomycin administration and failed Vanc enema PO Vanc discontinued per ID, ID and Gen surgery on board Stool is forming now Patient comfortable at bedside Post hemorrhagic anemia: Monitor daily hemoglobin, stable. Restart Lovenox 40 mg subQ q.day for DVT prophylaxis when okay by surgery.Anemia hemoglobin down to 6.6 12/18/2024 1 unit PRBC. Now stable at 7.7 Hypocalcemia: After correction for hypoalbuminemia, 8.1. Continue to monitor. Elevated blood glucose readings: HbA1c 6.0%. Accu-Cheks q.6 hours with hypoglycemia protocol and low-dose insulin sliding scale. Acute hypoxic respiratory failure: Patient weaned to room air on 12/15/2024. Due to atelectasis, CTA chest did not demonstrate pneumonia/PE. Continue incentive spirometer and EzPAP q.i.d.. Mobilize as soon as possible. Acute kidney injury and urinary retention: Could be due to hypovolemia, anemia, urinary retention, sepsis, contrast exposure. DARRYL has resolved. Nephrology signed off. Limon catheter remains due to surgery and immobility. Hypertension: Resume Losartan and adjust with clinical course Intraabdominal abscess Continue Zosyn, Fluconazole and Vanc until 01/01 per ID Melena stool from Epistaxis and FOBT positive Hb stable 7.7, s/p 2 units rPBC today See management below Epistaxis Likely cause of GI bleed S/p nasal packing INR 1.1, PTT 42.1 Lovenox on hold, IVF ENT input appreciated patient will follow up with ENT outpatient DVT prophylaxis: SCDs. Lovenox 40 mg daily currently on hold due to Epistaxis Nutrition: regular Prophylaxis: Protonix 40 mg IV q.a.m. for ulcer prophylaxis. PT/OT following Right upper extremity PICC line Deconditioning, PT/OT as appropriate per General surgery team. EzPAP, incentive spirometer. Patient wishes to be full code. Prior to admission she lives at home and was independent. Awaiting placement otherwise stable for discharge from medical standpoint Subjective Date/time seen: 01/01/25 10:57 Interval history: No acute events overnight. Patient had low sodium this morning 126 and repeat 128. Advised to eat salty drink or food and repeat BMP in a week. Review of Systems Review of Systems: As per HPI. All systems reviewed & are unremarkable except as noted in HPI and below (Subjective) Exam Narrative: GENERAL: Alert and oriented x3, not in acute distress HEAD: Normal with no signs of head trauma. EYES: EOMI, conjunctiva normal ENT: Hearing grossly intact LUNGS: Nonlabored breathing. No adventitious sounds HEART: [Regular rate and rhythm], no murmurs ABD: [Soft], mildly distended, mild tenderness, surgical incision with wound VAC, clean dry and intact. Colostomy and RLQ stoma noted. EXT: Normal range of motion SKIN: [No rashes or lesions.] NEURO: [Alert and oriented x 3. No gross focal sensory or strength deficits.] PSYCH: Normal affect Const: General: comfortable and no acute distress Nutritional Appearance: average body habitus Orientation/consciousness: patient oriented x3 Other: A&O x3 HENMT: Head: normocephalic and atraumatic Ears: hearing grossly normal bilaterally Face/Nose/Sinus: Normal nares present Mouth: Yes moist mucous membranes and Yes dry mucous membranes Teeth and gingiva: other (tongue with plaque-like white patches c/w thrush) Other: Mouth appears more moist today without any dry areas in the mucosa and no crusted scabs on the tongue. There are some small patches at the distal tongue that are pink superficial ulcers. Eyes: General: appearance normal, both eyes and all related structures Sclera: sclerae normal Pupils: Equal, round and reactive pupils present EOM: EOMs intact bilaterally Neck: Neck: supple Resp: Effort & Inspection: normal respiratory effort Auscultation: clear to auscultation bilaterally and crackles Other: Slowly decreased breath sounds at bilateral bases, no crackles/wheezing/rhonchi Cardio: Rate: regular rate and tachycardic Rhythm: regular rhythm Heart sounds: no gallops and no murmurs Peripheral pulses: Peripheral pulses 2+ throughout Other: S1-S2 present without murmur, rub, ectopy GI: Inspection: non-distended Auscultation: normal bowel sounds and Hypoactive bowel sounds present (Very hypoactive) Rectal Exam: deferred Other: Right-sided mucous fistula with serosanguineous drainage, end ileostomy with light brown serous drainage, JUHI drain with serosanguineous drainage, wound VAC intact. Urinary Catheter: Urinary Catheter: patent and draining Skin: General skin exam: normal color and no rashes or lesions noted Other: Postsurgical incision to abdomen is well approximated, sutures in place, no signs of infection Neuro: General: patient oriented x3, moves all extremities and no focal motor deficits Cranial nerves: Yes Equal, round and reactive pupils present Speech: normal speech Motor exam (neuro): 5/5 motor strength present throughout Sensory Exam: normal sensation Other: Generalized weakness Extrem: General: normal to inspection and edema Other: Trace edema bilateral lower extremities Psych: Appearance: grossly normal Mental Status: mental status grossly normal Affect: normal affect Attitude: cooperative Insight: Good insight present (Psych) Judgement: Good judgement present (Psych) Other: Good insight and judgment, pleasant Objective Data Vital Signs Vital Signs: Vital Signs - 24 hr 12/31/24 12:00 12/31/24 14:00 12/31/24 16:00 Temperature 97.9 F Pulse Rate 97 106 H 97 Respiratory Rate 16 Blood Pressure 141/89 H Pulse Oximetry 98 Oxygen Delivery 12/31/24 20:00 12/31/24 20:00 12/31/24 20:51 Temperature 97.7 F Pulse Rate 105 H 108 H Respiratory Rate 18 Blood Pressure 143/91 H Pulse Oximetry 96 Oxygen Delivery Room Air 01/01/25 00:00 01/01/25 04:00 01/01/25 06:00 Temperature 97.3 F L Pulse Rate 103 H 105 H 96 Respiratory Rate 16 Blood Pressure 159/92 H Pulse Oximetry 97 Oxygen Delivery Intake/Output Intake/Output: Intake & Output 12/29/24 12/30/24 12/31/24 01/01/25 23:59 23:59 23:59 23:59 Intake Total 1950 1300 2300 390 Output Total 568 413 8637 1300 Balance 1385 1150 425 -910 Meds/Results Medications: Active Medications Generic Name Dose Route Start Last Admin Trade Name Freq PRN Reason Stop Dose Admin Acetaminophen 650 mg 12/18/24 15:40 12/27/24 21:56 Acetaminophen 325 Mg Tablet PO 650 mg Q4H PRN Administration Mild Pain (1-3) or Fever Hydrocodone Bitart/Acetaminophen 1 tab 12/27/24 18:51 01/01/25 06:53 Hydrocodone/Acetaminophen (*Crx) 10-325 Mg Tablet PO 1 tab Q6H PRN Administration Pain Rated 7-10 Hydrocodone Bitart/Acetaminophen 1 tab 12/27/24 18:51 12/30/24 09:57 Hydrocodone/Acetaminophen (*Crx) 5-325 Mg Tablet PO 1 tab Q4H PRN Administration Pain Rated 4-6 Alteplase, Recombinant 2 mg 12/27/24 10:16 12/27/24 11:57 Alteplase 2 Mg Vial (Cathflo) IV PUSH 2 mg ONCE PRN Administration Line Occlusion Dextrose 12.5 gm 12/14/24 10: Dextrose 50% 25 Gm/50 Ml Syringe IV PUSH PRN PRN Hypoglycemia Protocol Enoxaparin Sodium 40 mg 12/07/24 09:00 12/27/24 11:53 Enoxaparin 40 Mg/0.4 Ml Syringe SUB-Q Not Given On Hold: 12/28/24 05:46 DAILY CEE Glucose 15 gm 12/14/24 10:29 Glucose Oral Gel 15 Gm Of Glucse In 37.5 Gm Tube PO PRN PRN Hypoglycemia Protocol Dextrose 1,000 mls @ 100 mls/hr 12/14/24 10:29 Dextrose 5% 1,000 Ml IVPB PRN PRN Hypoglycemia Protocol Piperacillin Sod/Tazobactam 50 mls @ 100 mls/hr 12/17/24 14:30 01/01/25 06:16 Sod 3.375 gm/ Sodium Chloride IVPB 01/01/25 23:59 100 mls/hr Q6HR CEE Administration Fluconazole 400 mg in 200 mls @ 100 mls/hr 12/19/24 13:30 01/01/25 08:59 Diflucan 400 Mg/Nacl 200 Ml IVPB 01/01/25 10:59 100 mls/hr DAILY CEE Administration Insulin Aspart 3 - 6 units 12/22/24 08:00 01/01/25 08:59 Insulin Aspart (*Bkc) 100 Units/Ml SUB-Q Not Given TIDWM CEE Protocol Lorazepam 1 mg 12/22/24 14:58 12/30/24 09:57 Lorazepam (*Crx) 1 Mg Tablet PO 1 mg BID PRN Administration Anxiety Losartan Potassium 25 mg 12/28/24 13:55 01/01/25 08:57 Losartan Potassium 25 Mg Tablet PO 25 mg DAILY CEE Administration Naloxone HCl 0.1 mg 12/06/24 17:15 Naloxone Hcl 0.4 Mg/Ml Vial IV PUSH Q2M PRN Opiate Reversal Nystatin 5 ml 12/30/24 21:00 01/01/25 08:57 Nystatin 100,000 Units/Ml Susp 5 Ml Oral.Susp PO 5 ml QID CEE Administration Ondansetron HCl 4 mg 12/03/24 17:26 12/09/24 05:23 Ondansetron Inj 4 Mg/2 Ml Vial IV PUSH 4 mg Q4H PRN Administration Nausea And Vomiting Oxymetazoline HCl 1 spray 12/29/24 10:31 Oxymetazoline Hcl 0.05% Mahendra 15 Ml Btl (*Bkc) NASAL Q12HR PRN Congestion Pantoprazole Sodium 40 mg 12/27/24 21:00 01/01/25 08:57 Pantoprazole Sodium Iv 40 Mg Vial IV PUSH 40 mg Q12HR CEE Administration Sodium Chloride 10 ml 12/07/24 14:00 01/01/25 06:16 Central Line Flush IV PUSH 10 ml Q8HR CEE Administration Sodium Chloride 20 ml 12/07/24 09:45 12/21/24 05:30 Central Line Flush IV PUSH 20 ml PRN PRN Administration after blood draws Sodium Chloride 1 applic 12/29/24 10:52 12/30/24 05:16 Sodium Chloride Nasal Gel 14.1 Gm NASAL 1 applic PRN PRN Administration nose bleed Radiology Results: ITS Impressions Renal Ultrasound 12/04/24 21:30 Impression: 1: Unremarkable renal ultrasound. No stones, masses or hydronephrosis. Pulmonary Perfusion Imaging 12/05/24 18:55 IMPRESSION: 1: Normal perfusion scan. Probable shallow lung volumes. Recommend correlation with chest x-ray.. Chest/Abdomen/Pelvis CT 12/10/24 10:51 IMPRESSION: 1. Small amount of likely residual free intraperineal gas and fluid post likely revision of an ileocolic anastomosis and placement of a surgical drain. No evident organized abscess or extraluminal contrast to suggest residual anastomotic leak. 2. Wall thickening along the sigmoid colon consistent with colitis infectious or inflammatory in etiology. Differential would also include residual reactive edema related to the prior anastomotic leak and recent surgery. 3. Volume loss in both lungs with atelectasis at the bilateral lung bases including complete collapse of the right middle lobe. Superimposed pneumonia not excludable but suspicion is low. 4. Chronic mild dilation the common bile duct without evident obstructing stone or mass, likely related to prior cholecystectomy but would correlate with liver function tests. CT Brain Angiography 12/13/24 11:34 IMPRESSION: 1. Normal aging brain. No acute intracranial process or abnormally enhancing brain lesions. 2. Unremarkable cerebral CT angiogram with no hemodynamic significant stenosis, thrombosis or aneurysm. Chest CTA 12/13/24 12:45 IMPRESSION: 1. No pulmonary embolus. Sensitivity is moderately decreased by motion artifact. 2. Small lung volumes with relative elevation of right hemidiaphragm. Moderate atelectasis in the inferior lungs 3. Ascites. Abdomen/Pelvis CT 12/26/24 17:56 IMPRESSION: Decrease in intra-abdominal free fluid. All CT scans at this facility are performed using low dose modulation techniques as appropriate to perform exam including the following: automated exposure control; use of iterative reconstruction technique; adjustment of the mA and/or kV according to patient size (this includes techniques or standardized protocols for targeted exams where dose is matched to indication/reason for exam). Chest X-Ray 12/28/24 07:01 IMPRESSION: 1. No change. 2. Bibasilar atelectasis. Labs Labs: Laboratory Results - last 24 hr 12/31/24 12/31/24 12/31/24 12:00 14:09 16:38 WBC 14.1 H RBC 2.82 L Hgb 7.7 L Hct 24.5 L MCV 86.9 MCH 27.3 MCHC 31.4 L RDW 18.2 H Plt Count 504 H MPV 8.6 Sodium 126 L Potassium 3.3 L Chloride 92 L Carbon Dioxide 31 H Anion Gap 3 L BUN 9 D Creatinine 0.56 L Estim Creat Clear Calc Not Reportable Estimated GFR > 60 Glucose 145 H POC Capillary Glucose 142 H 145 H Calcium 8.5 12/31/24 01/01/25 19:56 07:58 WBC RBC Hgb Hct MCV MCH MCHC RDW Plt Count MPV Sodium Potassium Chloride Carbon Dioxide Anion Gap BUN Creatinine Estim Creat Clear Calc Estimated GFR Glucose POC Capillary Glucose 178 H 109 H Calcium Quality VTE Prophylaxis VTE prophylaxis: mechanical ordered Hospitalist MIPS Advance Care Plan I have confirmed that the patient's Advanced Care Plan is present, code status is documented, or surrogate decision maker is listed in patient medical record.: Yes Medication Reconciliation I have utilized all available resources to obtain, update and review the patients current medications (includes all prescriptions, OTC, herbals, cannabis, and nutritional supplements).: Yes
[2025-01-01 11:27] LABS: Hematocrit 23.8 % (37.0-47.0); Hemoglobin 7.4 g/dL (12.0-15.0); Mean Corpuscular HGB Conc 31.1 g/dl (32-36); Mean Corpuscular Hemoglobin 27.2 pg (26-34); Mean Corpuscular Volume 87.5 fl (80-100); Platelet Count Result 481 k/mm3 (150-375); Red Blood Count 2.72 M/mm3 (4.2-5.4); White Blood Count 13.0 K/mm3 (4.5-10.0)
[2025-01-01 11:58] LABS: Anion Gap 2 mmol/L (4-12); Blood Urea Nitrogen 8 mg/dL (7-17); Calcium 8.6 mg/dL (8.4-10.2); Carbon Dioxide 32 mmol/L (22-30); Chloride 94 mmol/L (98-107); Estimated Glomerular Filt Rate > 60; Glucose 117 mg/dL (65-110); Magnesium 1.7 mg/dL (1.6-2.3); Potassium 3.6 mmol/L (3.4-5.0); Sodium 128 mmol/L (137-145)
[2025-01-01 12:00] VITALS: PULSE 100
[2025-01-01 14:00] VITALS: BP 161/94; PULSE 103; RESP 16; TEMP 36.3; O2SAT 96
--- NOTE | 2025-01-01 14:48 | P.DS_ITS ---
DS: Admitting Diagnosis Discharge Date 01/01/25 Admitting Diagnosis History partial colectomy Urinary retention Adenocarcinoma of colon Hypertension Hyperlipidemia Postoperative abdominal pain DS: Discharge Diagnosis Discharge Diagnosis (1) History of partial colectomy: Code(s): Z90.49 - Acquired absence of other specified parts of digestive tract Status: Resolved Assessment and Plan: * 11/27/2024 -hand assisted laparoscopic right colectomy, extensive lysis of adhesions, mobilization of hepatic flexure by Dr. May * 12/06/2024 - exploratory laparotomy, ileocolic resection with [id number] ileocolic anastomosis, drainage of intra-abdominal abscess, placement of wound VAC measuring 20 x [address] Burch * 12/13/2024 -re-exploration of recent laparotomy, ileocolic resection with end ileostomy and mucous fistula creation, placement of wound VAC within subcutaneous space measuring 12 cm x [address] Burch (2) Ileocolic anastomotic leak: Code(s): K91.89 - Other postprocedural complications and disorders of digestive system Status: Acute Assessment and Plan: * See discharge summary (3) Urinary retention: Code(s): R33.9 - Retention of urine, unspecified Status: Acute Assessment and Plan: * On admission patient had urinary retention and was treated with catheterization and she was started on Flomax. This eventually resolved and the Limon catheter was removed. She passed a voiding trial And she has been voiding without any problems for the past few weeks. (4) Acute kidney injury: Code(s): N17.9 - Acute kidney failure, unspecified Status: Acute Assessment and Plan: * DARRYL with creatinine going up on 12/04/24 and resolving by 12/07/24 with peak creatinine at 2.12. Nephrology was consulted and suspected multifactorial related to prerenal factors, contrast exposure, ARB use prior to admission, relative hypotension, element of urinary retention, and infection/anastomotic leak/sepsis. Renal ultrasound showed no obstruction. Urine electrolytes for pre renal. No UTI. Her losartan was held and she was treated with IV fluids. Also improved after source control and she was taken back to the OR on 12/06/2024 for an exploratory laparotomy, ileocolic resection, and drainage of intra-abdominal abscess. Serial labs were monitored for the remainder of her hospitalization and her renal function remained stable. (5) Epistaxis: Code(s): R04.0 - Epistaxis Status: Acute Assessment and Plan: * ENT consulted. Resolved following surgicel placement in left nares. (6) Protein calorie malnutrition: Qualifiers: Protein-calorie malnutrition severity: severe Qualified Code(s): E43 - Unspecified severe protein-calorie malnutrition Code(s): E46 - Unspecified protein-calorie malnutrition Status: Acute Assessment and Plan: * Patient had prolonged NPO status postoperatively and had a limited diet mul tiple times during her hospitalization. She was on TPN and eventually taken off as her diet was advanced. This resolved prior to discharge. Dietitian was consulted and followed the patient. She still had poor oral intake, but supplements were added and she has been consuming them well with small meals. (7) Hyponatremia: Code(s): E87.1 - Hypo-osmolality and hyponatremia Status: Acute (8) Hypertension: Qualifiers: Hypertension type: primary hypertension Qualified Code(s): I10 - Essential (primary) hypertension Code(s): I10 - Essential (primary) hypertension Status: Chronic (9) Hyperlipidemia: Qualifiers: Hyperlipidemia type: unspecified Qualified Code(s): E78.5 - Hyperlipidemia, unspecified Code(s): E78.5 - Hyperlipidemia, unspecified Status: Chronic (10) Anxiety: Code(s): F41.9 - Anxiety disorder, unspecified Status: Acute (11) Adenocarcinoma of colon: Code(s): C18.9 - Malignant neoplasm of colon, unspecified Status: Acute (12) C. difficile diarrhea: Onset Date: ~04/01/24 Code(s): A04.72 - Enterocolitis due to Clostridium difficile, not specified as recurrent Status: Suspected Assessment and Plan: * Cdiff infection in March 2024. Patient had diarrhea preoperatively and Infectious Disease initiated treatment for recurrent Cdiff infection. Eventually treatment was stopped as her diarrhea resolved and there was difficulty with administering vancomycin to get into the colon (both administration into the mucous fistula and retention enemas were attempted after her end ileostomy creation). See details in summary. (13) Intra-abdominal abscess post-procedure: Code(s): T81.43XA - Infection following a procedure, organ and space surgical site, initial encounter; K65.1 - Peritoneal abscess Status: Acute (14) Thrush: Code(s): B37.0 - Candidal stomatitis Status: Acute Assessment and Plan: * Patient developed oropharyngeal thrush that was noted earlier this week and likely related to her extensive antibiotic course. This is being treated with nystatin swish and swallow and will be continued on discharge to rehab. (15) Acute hypoxemic respiratory failure: Code(s): J96.01 - Acute respiratory failure with hypoxia Status: Acute Assessment and Plan: * Patient had postoperative hypoxia that was further evaluated with multiple chest x-rays that showed atelectasis and even a CTA of the chest on 12/13/2024 that showed no pulmonary embolus with sensitivity moderately decreased by motion artifact, small lung volumes with relative elevation of the right hemidiaphragm, and atelectasis. This was treated with supplemental oxygen via nasal cannula, incentive spirometry, and mobilization. She improved with supportive treatment and this resolved prior to discharge and has been on room air for the last 2 weeks. (16) Anemia: Code(s): D64.9 - Anemia, unspecified Status: Chronic Assessment and Plan: * Likely multifactorial related to her colon cancer, postoperative period, and significant epistaxis towards the end of her hospitalization and was treated by ENT with Surgicel placement in her left nares. Her hemoglobin dropped as low as 6.6 and was monitored routinely with serial labs. She received a total of 3 units of packed red blood cells on 12/13/2024, 12/18/2024, and 12/29/2024. Her Lovenox was held during her episode of nosebleed. Hemoglobin has been stable over the past few days since her nose bleed has resolved. (17) Sepsis: Code(s): A41.9 - Sepsis, unspecified organism Status: Acute Assessment and Plan: * Related to anastomotic leak, which has resolved. See summary for details. DS: Summary Hospital Course Reason for hospitalization: This is a 64-year-old female with right colon cancer who underwent a hand assisted laparoscopic right colectomy, extensive adhesiolysis, mobilization of hepatic flexure by Dr. May on 11/27/2024. Surgery was straightforward and she was discharged on postop day 2 after advancing her diet. She reports initially doing well after surgery. She did have an increase in abdominal pain for the first few days at home and vomited once, but relates this to the severity of her pain. Her pain eventually got better, but again worsened. She developed urinary retention and decided to come into the ED For evaluation on 12/03/2024. In the ED, patient was tachycardic with her heart rate in the low 100 - 110s. Blood pressure was stable and afebrile. Labs showed a white blood cell count of 4800. Potassium 3.1, which was replaced in the ED with 40 mEq of KCl. BUN 29 and creatinine 0.99. Lactic acid 2.3. CT scan of the abdomen and pelvis with IV contrast showed a small amount of scattered free intraperitoneal gas and fluid and a few small collections of gas and fluid in the pelvis without well defined peripheral enhancing wall this suggest organized abscess. There was also persistent wall thickening along the sigmoid colon suggestive of scarring related to prior diverticulitis with no findings to suggest acute colitis or diverticulitis. She was admitted in the setting for postoperative abdominal pain and to rule out anastomotic leak. Hospital Course: She was started empirically on broad-spectrum IV antibiotics. The CT scan was reviewed with the radiologist, who recommended CT scan following administration of oral contrast around the time this would be reaching the anastomosis, which was not beneficial as she had a postoperative ileus and the contrast did not extend to the area of the anastomosis during the time of the CT. She was initially monitored with serial abdominal exams and labs. She developed DARRYL and and worsening leukocytosis. She also had tachycardia and met sepsis criteria. Nephrology was consulted. Repeat CT scan of the abdomen and pelvis was ordered and had findings of an anastomotic leak. She then underwent exploratory laparotomy, ileocolic resection with [id number] ileocolic anastomosis, drainage of intra-abdominal abscess, placement of wound VAC measuring 20 x [address] Burch on 12/06/2024. She was treated with IV antibiotics, bowel rest, and NG tube decompression. She was started on TPN for malnutrition given her prolonged dietary restrictions. The dietitian was consulted. Her anemia also worsened and her hemoglobin dropped below 7. Lovenox was put on hold and she was transfused (see above for the details of her anemia). She had postoperative hypoxia and edema that was treated with supplemental oxygen, incentive spirometry, diuresis, and mobilization. Wound care nurses were consulted for wound VAC management/dressing changes. Her wound VAC was changed 3 times a week. She developed a fever on postoperative day 4, along with worsening leukocytosis with a white count up to 19,000. She had a repeat CT scan of the chest, abdomen, and pelvis on postop day 4 with findings that appeared to be likely postoperative with a small amount of free intraperitoneal gas and fluid with wall thickening along the sigmoid colon consistent with colitis. As well as volume loss in both lungs with atelectasis. Her antibiotics were switched from IV Zosyn to meropenem and she was monitored closely with serial abdominal exams and labs. Infectious Disease was consulted and tried to recheck for C diff given her recent infection in March, and started her on enteral vancomycin. The patient was then noted to have increased JUHI output from through 12/13/2024 that appeared more dark brown and slightly bilious. She had a repeat CT scan of the abdomen and pelvis with p.o. contrast, with findings of an anastomotic leak. During this time, she also had mental status changes and confusion, which prompted a CTA of the brain. This showed no acute findings. She was then taken back to surgery on 12/13/[address] Burch and underwent re-exploration of recent laparotomy, ileocolic resection with end ileostomy and mucous fistula creation, placement of wound VAC within subcutaneous space measuring 12 cm x 3 cm. She continued to be treated with broad-spectrum IV antibiotics, bowel rest, and NG tube decompression. TPN remained in place with lipids for nutrition. Given that she now has discontinuity and though oral vancomycin was not making it to the colon, we attempted to administer the vancomycin through her mucous fistula, which was unsuccessful. This was then switched to vancomycin enemas, which the patient was unable to tolerate. She was no longer having diarrhea and this was eventually stopped by Infectious Disease. By postop day 4 following her most recent surgery, she had a clamping trial, which she tolerated, and was started on clear liquids. Her diet was slowly advanced as tolerated and she was eventually taken off TPN once she was tolerating a substantial diet. PT and OT were ordered given her multiple surgeries and weakness related to her prolonged hospitalization. They were following and working with her for strength building during her hospitalization. She also had multiple electrolyte abnormalities that were treated with IV and oral replacement, and closely monitor with serial labs. Her hemoglobin did drop again down to 6.7 on 12/29/2024. She had issues with a severe nosebleed and ENT was consulted. They treated with Surgicel placement in left nares, which resolved the issue. She was transfused and hemoglobin has remained stable for the past few days. GI was also consulted due to a positive Hemoccult test, which is likely related to her recent surgery and ostomy. No evidence of active GI bleeding and they signed off. Her white blood cell count was trending down over the past few days. Infectious Disease recommended stopping antibiotics on 01/01/2025. Care coordination worked on discharge planning with recommendations of rehab. She previously lived at home alone. She was set up an approved to be discharged [facility]. Patient is surgically and medically stable for discharge as of today. She will have continued wound care to her right lower quadrant abdominal wound from her previous JUHI drain. Her LLQ JUHI drain was removed prior to discharge. She also had a PICC line from TPN, which was removed prior to discharge. She will have continued ostomy care at [facility] and had education provided to her by the wound care nurses prior to discharge. She will also discharge with the wound VAC and planned follow-up in the wound clinic after her discharge from [facility]. Status at Discharge Functional status at discharge: wheelchair bound (working with PT/OT) Overall status at discharge: patient is progressing back to baseline Time Spent with Patient Time attestation: Total time spent providing and/or coordinating discharge services: Time spent: Greater than 30 minutes DS: Data Data Completed and Pending Completed studies during hospitalization: PATHOLOGY RESULTS 12/06/24 13:58 Small/ large intestine, ileocolic anastomosis, resection: - Anastomotic leak - Surgical margins viable - Five lymph nodes negative for metastatic carcinoma 12/13/24 20:13 Ileocolonic anastomosis, ileocolonic resection: - Perforation of bowel with edema of the colonic mucosa and mild chronic inflammation - Acute peritonitis with fibrovascular adhesions - The open surgical margin is involved by the inflammation. - The staple surgical margin presents with viable tissue Labs on day of discharge: Labs from last 24 hours 01/01/25 01/01/25 01/01/25 11:47 11:13 07:58 WBC 13.0 H RBC 2.72 L Hgb 7.4 L Hct 23.8 L MCV 87.5 MCH 27.2 MCHC 31.1 L RDW 17.9 H Plt Count 481 H MPV 9.0 Sodium 128 L Potassium 3.6 Chloride 94 L Carbon Dioxide 32 H Anion Gap 2 L BUN 8 Creatinine 0.60 L Estim Creat Clear Calc Not Reportable Estimated GFR > 60 Glucose 117 H POC Capillary Glucose 131 H 109 H Calcium 8.6 Magnesium 1.7 12/31/24 12/31/24 19:56 16:38 WBC RBC Hgb Hct MCV MCH MCHC RDW Plt Count MPV Sodium Potassium Chloride Carbon Dioxide Anion Gap BUN Creatinine Estim Creat Clear Calc Estimated GFR Glucose POC Capillary Glucose 178 H 145 H Calcium Magnesium Preliminary micro results at discharge 12/17/24 14:40 Anaerobic Culture Extend Incubation - Preliminary Qamar Mays Drain Procedures/Treatments: Procedures Operation Date: 12/06/24 18:30 Actual Procedure Side Surgeon p Exploratory Laparotomy, Ileocolic Anastomosis Resection of Bowel, Application Wound Vac Not Applicable Parth Burch DO Operation Date: 12/13/24 17:00 Actual Procedure Side Surgeon p Re-Exploration Abdomen, Diverting Illeostomy With Mucous Fistula, Ileocolic Resection and placement of wound vac Parth Burch, DO Imaging Radiologist's impression: ITS Impressions Abdomen/Pelvis CT 12/03/24 07:31 IMPRESSION: 1. Small amount scattered free intraperitoneal gas and fluid and a few small collections of gas and fluid in the pelvis without well-defined peripheral enhancing wall to suggest organized abscess, likely related to recent right hemicolectomy and ileocolic anastomosis. 2. Persistent wall thickening along the sigmoid colon suggestive of scarring related to prior diverticulitis no significant surrounding inflammatory stranding to elevate suspicion for acute colitis/diverticulitis. 3. Persistent intra and extra hepatic biliary ductal dilation and dilation of the main pancreatic duct which may relate to prior cholecystectomy. Correlate with liver function tests and lipase levels and if clinically indicated could consider MRCP for further evaluation. Abdomen/Pelvis CT 12/03/24 15:36 IMPRESSION: 1. Postoperative ileus with no dilated bowel or transition point and with the majority contrast remaining within the stomach and only a small amount of contrast having extended to the mid to distal jejunum 5 1/2 hours post oral contrast administration. No contrast in the region of the ileocolic anastomosis which precludes assessment for anastomotic leak. 2. No significant change in a nonspecific small amount of scattered free intrap erineal gas and fluid in the abdomen and pelvis which could be directly secondary to the recent surgery. 3. Mild diverticulosis along the sigmoid colon where there is chronic wall thickening which could be due to scarring related to chronic diverticulitis versus less likely acute colitis or diverticulitis. Renal Ultrasound 12/04/24 21:30 Impression: 1: Unremarkable renal ultrasound. No stones, masses or hydronephrosis. Pulmonary Perfusion Imaging 12/05/24 18:55 IMPRESSION: 1: Normal perfusion scan. Probable shallow lung volumes. Recommend correlation with chest x-ray.. Abdomen/Pelvis CT 12/06/24 09:26 IMPRESSION: 1. 7.2 x 1.8 x 7.9 cm collection of fluid, gas, and oral contrast in right paracolic gutter, consistent with anastomotic leak.. 2. Small volume of ascites. 3. Dilated small bowel, consistent with adynamic ileus. 4. Small left pleural effusion. Chest X-Ray 12/07/24 10:22 IMPRESSION: 1. Bibasilar atelectasis and/or airspace disease. Chest/Abdomen/Pelvis CT 12/10/24 10:51 IMPRESSION: 1. Small amount of likely residual free intraperineal gas and fluid post likely revision of an ileocolic anastomosis and placement of a surgical drain. No evident organized abscess or extraluminal contrast to suggest residual anastomotic leak. 2. Wall thickening along the sigmoid colon consistent with colitis infectious or inflammatory in etiology. Differential would also include residual reactive edema related to the prior anastomotic leak and recent surgery. 3. Volume loss in both lungs with atelectasis at the bilateral lung bases including complete collapse of the right middle lobe. Superimposed pneumonia not excludable but suspicion is low. 4. Chronic mild dilation the common bile duct without evident obstructing stone or mass, likely related to prior cholecystectomy but would correlate with liver function tests. CT Brain Angiography 12/13/24 11:34 IMPRESSION: 1. Normal aging brain. No acute intracranial process or abnormally enhancing brain lesions. 2. Unremarkable cerebral CT angiogram with no hemodynamic significant stenosis, thrombosis or aneurysm. Chest X-Ray 12/13/24 12:26 IMPRESSION: 1. Persistent bibasilar atelectasis and/or airspace disease. 2. No significant change from one week prior. Abdomen/Pelvis CT 12/13/24 12:45 IMPRESSION: 1. Status post right hemicolectomy with anastomotic leak at the right lower quad rant ileocolic anastomosis. 2. Moderate bibasilar atelectasis, right greater than left with mucous bony of right middle and lower lobar bronchi. Chest CTA 12/13/24 12:45 IMPRESSION: 1. No pulmonary embolus. Sensitivity is moderately decreased by motion artifact. 2. Small lung volumes with relative elevation of right hemidiaphragm. Moderate atelectasis in the inferior lungs 3. Ascites. Abdomen/Pelvis CT 12/26/24 17:56 IMPRESSION: Decrease in intra-abdominal free fluid. All CT scans at this facility are performed using low dose modulation techniques as appropriate to perform exam including the following: automated exposure control; use of iterative reconstruction technique; adjustment of the mA and/or kV according to patient size (this includes techniques or standardized protocols for targeted exams where dose is matched to indication/reason for exam). Chest X-Ray 12/28/24 07:01 IMPRESSION: 1. No change. 2. Bibasilar atelectasis. Discharge Plan Discharge Attending physician on discharge: Parth Burch Consulting providers: Yolanda Jeffery; Miroslava Sepulveda; Herbie Kennedy; Kermit Barksdale Discharging Clinician: Candice Anderson Anticipated Discharge Date/Time: 12/31/24 13:25 Patient Disposition: [facility] Activity: no shower and other - see discharge instructions Diet: as tolerated, regular and other - see discharge instructions Wound Care Instructions: other - see discharge instructions Discharge Instructions: * Wound vac to Midline Abdomen: Change dressing 3 times per week. * Standard wound vac settings: -125mmHg low continuous pressure using black foam only. * Due to close proximity of the ostomy to wound vac dressings, ostomy appliance was changed with wound vac 3 times per week or when leaking. * At this time, we're using a 1 piece cut to fit Flat ostomy appliance. * Daily pack Right lower abdomen drain incision with 1/4 inch Iodine gauze rope, cover with dry gauze and medipore tape. * Daily cover the Left flank drain incision spot with dry gauze and medipore tape. * Cover mucous fistula in the upper right quadrant with a dry gauze pad and Medipore tape. Change daily. * Continue with Ensure supplements 3 times daily until you are eating a sufficient amount of your meals again. * Sodium levels have been slightly low. Get labs drawn in 1 week. Add higher sodium foods to diet such as chicken noodle soup. Please contact [facility] with discharge plan once known so follow up appointment with Dr. Burch can be made. [phone] Patient Language: Urdu Follow-up/Referrals: Parth Burch DO [Physician, General Surgery] - Call for Appointment Discharge Medications: New oxymetazoline [Nasal Decongestant (oxymetazl)] 0.05 % [place],Non-Aerosol 1 spray intranasal Q12HR PRN (Reason: Congestion) Qty: 22 0RF nystatin 100,000 unit/mL Suspension 5 ml PO QID 13 Days Qty: 260 0RF Continued cholecalciferol (vitamin D3) 25 mcg (1,000 unit) capsule 25 mcg PO DAILY cyanocobalamin (vitamin B-12) 1,000 mcg tablet, sublingual 1,000 mcg sublingual .QOD losartan 25 mg tablet 25 mg PO DAILY Qty: 100 1RF hydrocodone-acetaminophen 5-325 mg tablet 1 tablet PO Q6H PRN (Reason: pain) Qty: 30 0RF ondansetron 4 mg tablet,disintegrating 4 mg PO Q6-8H PRN (Reason: nausea and vomiting) Qty: 14 0RF MaxEPA 500 mg capsule 500 mg PO DAILY atorvastatin 20 mg tablet 20 mg PO QHS Qty: 90 1RF lorazepam 1 mg tablet 1 mg PO BID PRN (Reason: Anxiety) Qty: 90 1RF Discontinued [employer] 1.5 billion cell Capsule 1 cap PO DAILY docusate sodium [Colace] 100 mg capsule 100 mg PO BID Qty: 30 0RF Other Ambulatory Orders: Basic Metabolic Panel (Routine) Timeframe: 1 Week Location: Determined by Patient Ordered By: Elyssa Ackerman Date of admission: 12/03/24 09:58 Primary Care Provider: Ari Jordan Admitting Provider: Linn May Attending physician on admission: Linn May Condition: Stable Quality VTE Prophylaxis VTE prophylaxis: mechanical ordered and pharmacologic ordered (Lovenox held at the end of her stay d/t anemia/bleeding) Hospitalist MIPS Heart Failure (Exclusion) Patient has history of Heart Transplant or Left Ventricular Assistive Device?: No IF YES, STOP HERE Heart Failure (Qualifier) Patient has current or prior documentation of LVEF less than or equal to 40%, or mod/servere depressed LVSF?: No IF NO, STOP HERE
== END 2025-01-01 14:45 | DRG 329 ==
LOC: ANHED 06:42 → ANH3MEDSUR 12-04 12:45 → ANH2MED 12-13 14:43 → ANH3MED 12-31 13:31 → ANH3MEDSUR 01-02 09:58 → ANHIMU 01-02 09:58 → ANH2MED 01-02 09:58
PROVIDERS: Emergency Medicine; General Practice; Internal Medicine; Internal Medicine Infectious Disease; Internal Medicine Nephrology; Student in an Organized Health Care Education/Training Program; Surgery; Admitting Provider Surgery; Emergency Provider Emergency Medicine; PCP Family Medicine; Visit Provider Nurse Practitioner Family
PROC: 0DBB0ZZ Excision of Ileum, Open Approach (ICD-10-PCS; CPT 49000; principal; 2024-12-06 18:30)
DX: K91.89 Other postprocedural complications and disorders of digestive system (principal); J95.821 Acute postprocedural respiratory failure; K65.1 Peritoneal abscess; T81.43XA Infection following a procedure, organ and space surgical site, initial encounter; N17.9 Acute kidney failure, unspecified; E87.1 Hypo-osmolality and hyponatremia; K56.7 Ileus, unspecified; D62 Acute posthemorrhagic anemia; A04.72 Enterocolitis due to Clostridium difficile, not specified as recurrent; J95.89 Other postprocedural complications and disorders of respiratory system, not elsewhere classified; J98.11 Atelectasis; T81.44XA Sepsis following a procedure, initial encounter; K92.2 Gastrointestinal hemorrhage, unspecified; R04.2 Hemoptysis; K91.2 Postsurgical malabsorption, not elsewhere classified; B37.0 Candidal stomatitis; R04.0 Epistaxis; N99.89 Other postprocedural complications and disorders of genitourinary system; R33.8 Other retention of urine; K59.09 Other constipation; T50.8X5A Adverse effect of diagnostic agents, initial encounter; R00.0 Tachycardia, unspecified; I10 Essential (primary) hypertension; M47.816 Spondylosis without myelopathy or radiculopathy, lumbar region; M85.80 Other specified disorders of bone density and structure, unspecified site; E78.5 Hyperlipidemia, unspecified; R33.9 Retention of urine, unspecified; D50.9 Iron deficiency anemia, unspecified; F41.9 Anxiety disorder, unspecified; Z90.49 Acquired absence of other specified parts of digestive tract; Z87.891 Personal history of nicotine dependence; Z85.820 Personal history of malignant melanoma of skin; Z86.16 Personal history of COVID-19; Z86.73 Personal history of transient ischemic attack (TIA), and cerebral infarction without residual deficits; E83.51 Hypocalcemia; D63.0 Anemia in neoplastic disease
CPT/HCPCS: 31500; 36415; 36430; 36569; 36600; 70496; 71045; 71260; 71275; 74176; 74177; 76770; 78582; 80048; 80053; 80202; 81001; 82040; 82274; 82375; 82550; 82565; 82570; 82805; 82948; 83050; 83605; 83735; 83880; 84100; 84145; 84156; 84300; 84466; 84478; 85014; 85018; 85025; 85027; 85055; 85380; 85610; 85730; 85999; 86850; 86900; 86901; 86923; 87040; 87070; 87075; 87186; 87493; 88307; 93005; 94002; 94640; 96361; 96365; 96375; 97110; 97162; 97165; 97168; 97530; 97535; 99285; A9270; A9540; A9558; C1751; J1100; J1171; J1450; J1650; J1815; J1938; J2003; J2185; J2250; J2270; J2371; J2405; J2470; J2543; J2704; J2997; J3010; J3373; J3480; J7040; J7050; J7120; P9016; P9047; Q9967